=== PATIENT | male | born 1940 | race Caucasian/White ===

== ENCOUNTER 2017-09-14 14:15 | Outpatient (RCR) | payer MEDICARE, OTHER, SELFPAY ==
[2017-08-27 00:31] VITALS: BP 124/60; BP 170/94
== END 2017-09-26 23:59 ==
LOC: CR 14:15
PROVIDERS: Family Provider Family Medicine; PCP Family Medicine; Visit Provider Internal Medicine Cardiovascular Disease
DX: I25.10 Atherosclerotic heart disease of native coronary artery without angina pectoris (principal); Z95.1 Presence of aortocoronary bypass graft
CPT/HCPCS: 93798

== ENCOUNTER → 2017-11-08 11:00 | Outpatient (CLI) | payer MEDICARE, OTHER, SELFPAY ==
--- NOTE | 2017-11-08 11:04 | RAD_ITS ---
STUDY: X-RAY CHEST REASON FOR EXAM: Male, 77 years old. COPD TECHNIQUE: PA and lateral views of the chest. COMPARISON: Previous study of 07/13/2017 FINDINGS: A stimulator device is seen overlying the lateral left thorax with lead overlying the mid thorax. An atrial appendage clip is seen. The lungs are clear and expanded. There is no demonstrated pleural abnormality. There is mild cardiac enlargement. Status post sternotomy changes are evident. Normal mediastinum and alon. Normal visualized pulmonary arteries. Normal visualized aortic arch and descending thoracic aorta. There is demineralization of the osseous structures. Normal visualized ribs, clavicles, and shoulders. There is no demonstrated abnormality of the visualized soft tissue structures of the upper abdomen. RAD/Chest PA and Lateral IMPRESSION: Mild cardiomegaly. Status post sternotomy. No acute cardiopulmonary disease process is seen. Electronically Signed: Hiram Randall MD at 23:58 EDT , Service support ,
== END ==
PROVIDERS: Family Provider Family Medicine; PCP Family Medicine; Visit Provider Internal Medicine Pulmonary Disease
DX: J44.9 Chronic obstructive pulmonary disease, unspecified (principal)
CPT/HCPCS: 71046

== ENCOUNTER → 2017-11-15 07:21 | Outpatient (CLI) | payer MEDICARE, OTHER, SELFPAY ==
[2017-11-15 08:33] LABS: Hematocrit 38.9 % (40-54); Hemoglobin 12.1 g/dl (13.0-16.5); Mean Corp Hgb Conc 31.1 g/gl (32-36); Mean Corpuscular Volume 96.3 fL (80-94); Mean Platelet Vol. 10.2 fl (6.2-12.0); Platelet Count 162 K/mm3 (150-450); RBC Distribution Width SD 52.8 fl (35.1-43.9); Red Blood Count 4.04 M/mm3 (4.6-6.2); White Blood Count 7.2 K/mm3 (4.4-11.0)
[2017-11-15 08:34] LABS: Scan Indicated on CBC? Y/N NO
[2017-11-15 09:13] LABS: Anion Gap 7 (5-15); BUN 29 mg/dL (7-18); BUN/Creat Ratio 14.6 RATIO (10-20); Calcium,Total 9.1 mg/dL (8.5-10.1); Chloride 103 mmol/L (98-107); Creatinine, Serum 1.99 mg/dL (0.70-1.30); EST Glomerular Filtration Rate 35 mL/min (>60); Est Glom Filt Rate - Afr Amer 42 mL/min (>60); Free T3 2.1 pg/mL (2.18-3.98); Glucose 274 mg/dL (74-106); Potassium 4.3 mmol/L (3.5-5.1); Sodium Level 141 mmol/L (136-145); T4 Free Direct 1.28 ng/dL (0.76-1.46); Thyroid Stim Hormone (TSH) 6.41 uIU/mL (0.358-3.74)
[2017-11-15 09:50] LABS: BNP,B-Type NATRIURETIC PEPTIDE 93.2 pg/mL (0-100)
== END ==
PROVIDERS: Family Provider Family Medicine; PCP Family Medicine; Visit Provider Physician Assistant Medical
DX: E03.9 Hypothyroidism, unspecified (principal); I25.10 Atherosclerotic heart disease of native coronary artery without angina pectoris; I48.91 Unspecified atrial fibrillation; Z95.1 Presence of aortocoronary bypass graft; E87.6 Hypokalemia
CPT/HCPCS: 36415; 80048; 83880; 84439; 84443; 84481; 85027

== ENCOUNTER → 2017-12-21 10:03 | Outpatient (CLI) | payer MEDICARE, OTHER, SELFPAY ==
[2017-12-21 12:51] LABS: Absolute Lymphocyte Count 0.97 X10^3/ul (0.83-4.51); Absolute Neutrophil Count 4.7 X10^3/uL (2.0-7.7); Basophil# 0.02 X10^3/uL; Basophil% 0.3 % (0-1); Eosinophil# 0.12 X10^3/uL; Eosinophils% 1.9 % (0-5); Hematocrit 36.1 % (40-54); Hemoglobin 11.6 g/dl (13.0-16.5); Lymphocyte # 0.97 X10^3/ul (4.0); Mean Corp Hgb Conc 32.1 g/gl (32-36); Mean Corpuscular Hgb 31.5 pg (27.0-32.0); Mean Corpuscular Volume 98.1 fL (80-94); Mean Platelet Vol. 10.2 fl (6.2-12.0); Monocyte# 0.65 X10^3/uL; Monocyte% 10.1 % (0-10); Neutrophil # 4.68 X10^3/uL (2.7-7.7); Neutrophil % 72.4 % (47-70); Platelet Count 163 K/mm3 (150-450); RBC Distribution Width CV 14.5 % (11.6-14.6); RBC Distribution Width SD 49.7 fl (35.1-43.9); Red Blood Count 3.68 M/mm3 (4.6-6.2); White Blood Count 6.5 K/mm3 (4.4-11.0)
[2017-12-21 12:58] LABS: POSITIVE COUNT NO; POSITIVE DIFFERENTIAL NO; POSITIVE MORPHOLOGY NO
== END ==
PROVIDERS: Family Provider Family Medicine; PCP Family Medicine; Visit Provider Family Medicine
DX: T14.8XXA Other injury of unspecified body region, initial encounter (principal)
CPT/HCPCS: 36415; 85025

== ENCOUNTER → 2018-01-15 08:41 | Outpatient (CLI) | payer MEDICARE, OTHER, SELFPAY ==
[2018-01-15 10:13] LABS: ALB/GLOB Ratio 1.1 RATIO (0.9-2.4); AST(SGOT) 66 U/L (15-37); Alanine Aminotransfer ALT/SGPT 110 U/L (16-61); Albumin, Serum 3.5 g/dL (3.2-5.0); Alkaline Phosphatase 80 U/L (45-117); Anion Gap 8 (5-15); BUN 28 mg/dL (7-18); BUN/Creat Ratio 15.7 RATIO (10-20); Calcium,Total 8.9 mg/dL (8.5-10.1); Chloride 106 mmol/L (98-107); Cholesterol 168 mg/dL (200); Creatinine, Serum 1.78 mg/dL (0.70-1.30); EST Glomerular Filtration Rate 39 mL/min (>60); Est Glom Filt Rate - Afr Amer 48 mL/min (>60); Globulin 3.3 g/dL (2.2-4.2); Glucose 82 mg/dL (74-106); High Density Lipoprotein 75 mg/dL; Protein, Total 6.8 g/dL (6.4-8.2); Sodium Level 145 mmol/L (136-145); T4 Free Direct 1.33 ng/dL (0.76-1.46); Thyroid Stim Hormone (TSH) 3.18 uIU/mL (0.358-3.74); Triglycerides 63 mg/dL; Very Low Density Lipoprotein 13 mg/dL (5-40)
[2018-01-15 11:15] LABS: Hemoglobin A1c 7.1 % (4.2-6.3)
[2018-01-16 10:49] LABS: Vitamin D,25 Hydroxy 44.1 ng/mL (29.95-100.01)
== END ==
PROVIDERS: Family Provider Family Medicine; PCP Family Medicine; Visit Provider Internal Medicine Endocrinology, Diabetes & Metabolism
DX: E55.9 Vitamin D deficiency, unspecified (principal); E03.9 Hypothyroidism, unspecified; E11.65 Type 2 diabetes mellitus with hyperglycemia
CPT/HCPCS: 36415; 80053; 80061; 82306; 83036; 84439; 84443

== ENCOUNTER 2018-01-21 06:36 | Emergency (ER) | payer MEDICARE, OTHER, SELFPAY ==
[2018-01-21 06:37] VITALS: BP 133/72; PULSE 64; RESP 18; TEMP 37.1; O2SAT 98; BMI 29.9
--- NOTE | 2018-01-21 06:46 | RAD_ITS ---
STUDY: X-RAY - RIGHT KNEE REASON FOR EXAM: Male, 77 years old. Knee pain TECHNIQUE: 4 view(s) of the knee. COMPARISON: None. FINDINGS: Meniscal calcifications bilaterally. There may be partial extrusion of the meniscus medial compartment. Mild joint space narrowing medial compartment. Minimal marginal osteophytic lipping. Lateral compartment mild marginal osteophytic lipping. Patellofemoral compartment minimal marginal osteophytic lipping. No apparent suprapatellar knee joint effusion. Osseous structures intact, mildly osteopenic. Periarticular soft tissues unremarkable. RAD/Knee 4 or More Views IMPRESSION: Mild DJD medial, lateral and patellofemoral compartments. No effusion. No fracture. Meniscal calcifications may reflect the presence of CPPD/pseudogout. Electronically Signed: Gómez Pederson, at 7:14 EDT Tel , Service support ,
--- NOTE | 2018-01-21 07:18 | ED.VISSUMM ---
- ER Visit Summary Date of Service: 01/21/18 Chief Complaint: Right knee pain History of Present Illness: The patient is a 77 M who presents for 1-1/2 weeks of worsening right knee pain. Patient has no history of trauma. Patient states he has been having pain, worse with ambulation. Mainly noted on the lateral knee. He had been on Eliquis until 1 week ago when his doctor took him off of it because of mild elevation of transaminases. Patient is not supposed to be restarted until January 28. He has no history of blood clots. No shortness of breath, fever, chest pain or other complaints other than the knee pain. He was going to follow-up with his orthopedic doctor tomorrow, but was unable to bear weight this morning upon awakening. He is able to ambulate using a cane. Patient tried wearing a commercial brace. Has not taken any pain medicine. Physical Examination: Vital signs: afebrile, hemodynamically stable, no hypoxia on room air General: well nourished, well developed, in no distress Skin: warm, dry, no rash, no pallor Cardiovascular: regular rate and rhythm without murmurs, no peripheral edema, 2+ pulses all distal extremities Respiratory: No increased work of breathing, lungs are clear to auscultation bilaterally, no rales, rhonchi or wheezing MSK: Moves all extremities, finger amputations bilateral hands, left distal upper extremity in a brace; right knee shows no deformities or swelling. Mild tenderness to palpation along the lateral and medial joint lines. No deformities or crepitus. No posterior fullness or tenderness. No varus or valgus laxity. Negative anterior and posterior drawer sign. Symmetric appearance compared to left knee. Skin markings from pressure of knee brace seams. Neuro: Awake and alert, oriented ?4. sensation and motor function intact and symmetric Test Results: Abnormal Lab Results 01/21/18 07:40 Sodium 141 Potassium 4.1 Chloride 106 Carbon Dioxide 28.0 Anion Gap 7 BUN 29 H Creatinine 1.79 H Estim Creat Clear Calc 36.73 Est GFR (MDRD) Af Amer 47 L Est GFR (MDRD) Non-Af 39 L BUN/Creatinine Ratio 16.2 Glucose 149 H Calcium 8.9 Total Bilirubin 0.40 AST 45 H ALT 88 H Alkaline Phosphatase 78 Total Protein 6.3 L Albumin 3.4 Globulin 2.9 Albumin/Globulin Ratio 1.2 Clinical Impression(s) from Imaging Studies Knee X-Ray 01/21/18 06:46 IMPRESSION: Mild DJD medial, lateral and patellofemoral compartments. No effusion. No fracture. Meniscal calcifications may reflect the presence of CPPD/pseudogout. Electronically Signed: Gómez Pederson, at 7:14 EDT Tel , Service support , Emergency Department Course and Treatment: Patient's knee exam is nonspecific, and he has no calf swelling or tenderness. Concern for a DVT is low, however patient has been abruptly off of his Eliquis for 1 week now, and and patient are very concerned for blood clot. Given Tylenol for pain. X-ray of the knee showed findings consistent with possible pseudogout. No fractures or effusions noted. Given that patient is off of his blood thinner and the family is concerned for DVT, ultrasound was performed. Negative for DVT. Patient will follow up with his orthopedic doctor tomorrow as prior planned. Labs performed showing very mild transaminitis and chronic renal insufficiency. He was discussed with cardiology regarding the discontinuation of patient's Eliquis by the [facility], and Dr. Mota could not make a judgment on this medication discontinuation without knowing the reasons for at the [facility] did. I agree with this, and patient was advised to contact his primary care doctor at the [facility] as soon as possible in the morning to discuss further with him being off of his medication. No further blood thinners were started given that we do not have a clear picture of why he was taken off his Eliquis. Return if any further concerns and will continue to use rest, ice, elevation in the knee brace for comfort. He will use his cane for ambulation until he can follow-up with orthopedics tomorrow. Treatment Plan: [] Disposition: [] Impression: Left knee pain This note was generated with [id number] dictation software. It may contain incorrect words, spelling, and punctuation that were not noted in review of the chart prior to signing ED Disposition - Plan for ED Patient: Disposition: Home or Assisted Living Chief Complaint: Lower Extremity Injury Instructions: ED Knee Pain [facility] Referrals: Corin Hernandez MD [Primary Care Provider] - Additional Instructions: Please follow-up with your orthopedic doctor tomorrow. Your ultrasound showed no blood clot in your right leg. Please call your doctor that took you off of your Eliquis first thing tomorrow to discuss whether they can talk to your planer offbearer about the medication or an alternative anticoagulant. Follow-up as soon as possible for further discussion of your need for a blood thinner. If you have any worsening of your condition or any new concerning symptoms, please return immediately to the emergency department for another evaluation.
--- NOTE | 2018-01-21 07:23 | ED.DCSUM_ITS ---
- ER Visit Summary Date of Service: 01/21/18 Chief Complaint: Right knee pain History of Present Illness: The patient is a 77 M who presents for 1-1/2 weeks of worsening right knee pain. Patient has no history of trauma. Patient states he has been having pain, worse with ambulation. Mainly noted on the lateral knee. He had been on Eliquis until 1 week ago when his doctor took him off of it because of mild elevation of transaminases. Patient is not supposed to be restarted until January 28. He has no history of blood clots. No shortness of breath, fever, chest pain or other complaints other than the knee pain. He was going to follow-up with his orthopedic doctor tomorrow, but was unable to bear weight this morning upon awakening. He is able to ambulate using a cane. Patient tried wearing a commercial brace. Has not taken any pain medicine. Physical Examination: Vital signs: afebrile, hemodynamically stable, no hypoxia on room air General: well nourished, well developed, in no distress Skin: warm, dry, no rash, no pallor Cardiovascular: regular rate and rhythm without murmurs, no peripheral edema, 2 + pulses all distal extremities Respiratory: No increased work of breathing, lungs are clear to auscultation bilaterally, no rales, rhonchi or wheezing MSK: Moves all extremities, finger amputations bilateral hands, left distal upper extremity in a brace; right knee shows no deformities or swelling. Mild tenderness to palpation along the lateral and medial joint lines. No deformities or crepitus. No posterior fullness or tenderness. No varus or valgus laxity. Negative anterior and posterior drawer sign. Symmetric appearance compared to left knee. Skin markings from pressure of knee brace seams. Neuro: Awake and alert, oriented ?4. sensation and motor function intact and symmetric Test Results: Abnormal Lab Results 01/21/18 07:40 Sodium 141 Potassium 4.1 Chloride 106 Carbon Dioxide 28.0 Anion Gap 7 BUN 29 H Creatinine 1.79 H Estim Creat Clear Calc 36.73 Est GFR (MDRD) Af Amer 47 L Est GFR (MDRD) Non-Af 39 L BUN/Creatinine Ratio 16.2 Glucose 149 H Calcium 8.9 Total Bilirubin 0.40 AST 45 H ALT 88 H Alkaline Phosphatase 78 Total Protein 6.3 L Albumin 3.4 Globulin 2.9 Albumin/Globulin Ratio 1.2 Clinical Impression(s) from Imaging Studies Knee X-Ray 01/21/18 06:46 IMPRESSION: Mild DJD medial, lateral and patellofemoral compartments. No effusion. No fracture. Meniscal calcifications may reflect the presence of CPPD/pseudogout. Electronically Signed: Gómez Pederson, at 7:14 EDT Tel , Service support , Emergency Department Course and Treatment: Patient's knee exam is nonspecific, and he has no calf swelling or tenderness. Concern for a DVT is low, however patient has been abruptly off of his Eliquis for 1 week now, and and patient are very concerned for blood clot. Given Tylenol for pain. X-ray of the knee showed findings consistent with possible pseudogout. No fractures or effusions noted. Given that patient is off of his blood thinner and the family is concerned for DVT, ultrasound was performed. Negative for DVT. Patient will follow up with his orthopedic doctor tomorrow as prior planned. Labs performed showing very mild transaminitis and chronic renal insufficiency. He was discussed with cardiology regarding the discontinuation of patient's Eliquis by the [facility], and Dr. Mota could not make a judgment on this medication discontinuation without knowing the reasons for at the [facility] did. I agree with this, and patient was advised to contact his primary care doctor at the [facility] as soon as possible in the morning to discuss further with him being off of his medication. No further blood thinners were started given that we do not have a clear picture of why he was taken off his Eliquis. Return if any further concerns and will continue to use rest, ice, elevation in the knee brace for comfort. He will use his cane for ambulation until he can follow-up with orthopedics tomorrow. Treatment Plan: [] Disposition: [] Impression: Left knee pain This note was generated with [employer] dictation software. It may contain incorrect words, spelling, and punctuation that were not noted in review of the chart prior to signing ED Disposition - Plan for ED Patient: Disposition: Home or Assisted Living Chief Complaint: Lower Extremity Injury Instructions: ED Knee Pain [facility] Referrals: Corin Hernandez MD [Primary Care Provider] - Additional Instructions: Please follow-up with your orthopedic doctor tomorrow. Your ultrasound showed no blood clot in your right leg. Please call your doctor that took you off of your Eliquis first thing tomorrow to discuss whether they can talk to your warehouse driver about the medication or an alternative anticoagulant. Follow-up as soon as possible for further discussion of your need for a blood thinner. If you have any worsening of your condition or any new concerning symptoms, please return immediately to the emergency department for another evaluation.
[2018-01-21 08:08] LABS: ALB/GLOB Ratio 1.2 RATIO (0.9-2.4); AST(SGOT) 45 U/L (15-37); Alanine Aminotransfer ALT/SGPT 88 U/L (16-61); Albumin, Serum 3.4 g/dL (3.2-5.0); Alkaline Phosphatase 78 U/L (45-117); Anion Gap 7 (5-15); BUN 29 mg/dL (7-18); BUN/Creat Ratio 16.2 RATIO (10-20); Calcium,Total 8.9 mg/dL (8.5-10.1); Chloride 106 mmol/L (98-107); Creatinine, Serum 1.79 mg/dL (0.70-1.30); EST Glomerular Filtration Rate 39 mL/min (>60); Est Glom Filt Rate - Afr Amer 47 mL/min (>60); Estimated Creatinine Clearance 36.73 ml/min; Globulin 2.9 g/dL (2.2-4.2); Glucose 149 mg/dL (74-106); Potassium 4.1 mmol/L (3.5-5.1); Protein, Total 6.3 g/dL (6.4-8.2); Sodium Level 141 mmol/L (136-145)
[2018-01-21] MEDS: Acetaminophen 500 MG Tablet 1000 MG PO (08:16)
--- NOTE | 2018-01-21 08:19 | VDLE_ITS ---
Reason For Study: LEG PAIN RIGHT GSV is normal. CFV is compressible, spontaneous, phasic, competent and demonstrates normal augmentation. FV is compressible, spontaneous, phasic, competent and demonstrates normal augmentation. POP V is compressible, spontaneous, phasic, competent and demonstrates normal augmentation. T/P Trunk is compressible. PTV is compressible. RT PerV is compressible. Procedure Exam performed portable in ED. A preliminary report was called and/or faxed to Dr. Hernandez. Interpretation Summary Deep veins of the right lower extremity are patent and compressible segmentally. There is no evidence of right lower extremity deep vein thrombosis. Valvular competence appears intact within the proximal deep venous system on the right . The right greater saphenous vein appears patent and compressible segmentally. Ordering Physician: Mariama Hernandez Referring Physician: Shu Gotti Performed By: Rachel Cinseros RVT
--- NOTE | 2018-01-21 09:22 | NURSING ---
VASCULAR LAB IN ROOM
--- NOTE | 2018-01-21 09:39 | NURSING ---
DR LADD PAGED
--- NOTE | 2018-01-21 11:34 | ED.DEP ---
ED Disposition - Plan for ED Patient: Disposition: Home or Assisted Living Chief Complaint: Lower Extremity Injury Instructions: ED Knee Pain [facility] Referrals: Corin Hernandez MD [Primary Care Provider] - Additional Instructions: Please follow-up with your orthopedic doctor tomorrow. Your ultrasound showed no blood clot in your right leg. Please call your doctor that took you off of your Eliquis first thing tomorrow to discuss whether they can talk to your water resource specialist about the medication or an alternative anticoagulant. Follow-up as soon as possible for further discussion of your need for a blood thinner. If you have any worsening of your condition or any new concerning symptoms, please return immediately to the emergency department for another evaluation.
--- NOTE | 2018-01-21 11:37 | DCINST.ED_ITS ---
ED Disposition - Plan for ED Patient: Disposition: Home or Assisted Living Chief Complaint: Lower Extremity Injury Instructions: ED Knee Pain [facility] Referrals: Corin Hernandez MD [Primary Care Provider] - Additional Instructions: Please follow-up with your orthopedic doctor tomorrow. Your ultrasound showed no blood clot in your right leg. Please call your doctor that took you off of your Eliquis first thing tomorrow to discuss whether they can talk to your special education kindergarten teacher about the medication or an alternative anticoagulant. Follow-up as soon as possible for further discussion of your need for a blood thinner. If you have any worsening of your condition or any new concerning symptoms, please return immediately to the emergency department for another evaluation.
[2018-01-21 11:43] VITALS: BP 134/77; PULSE 73; RESP 16; O2SAT 98
== END 2018-01-21 11:44 | disposition home or self-care (01) ==
PROVIDERS: Emergency Provider Emergency Medicine; Family Provider Family Medicine; PCP Family Medicine
DX: M25.561 Pain in right knee (principal); M79.604 Pain in right leg; I48.91 Unspecified atrial fibrillation; Z86.74 Personal history of sudden cardiac arrest; Z79.02 Long term (current) use of antithrombotics/antiplatelets; Z79.4 Long term (current) use of insulin; Z79.899 Other long term (current) drug therapy
CPT/HCPCS: 73564; 80053; 93971; 99283

== ENCOUNTER → 2018-01-25 09:44 | Outpatient (CLI) | payer MEDICARE, OTHER, SELFPAY ==
[2018-01-25 09:56] LABS: Pathologist Comment May follow
[2018-01-25 11:14] LABS: Synovial Fld Mononuclear WBC % 63.9 %; Synovial Fld Polynuclear WBC # 0.109 10^3/ul; Synovial Fld Polynuclear WBC % 36.1 %
[2018-01-25 13:01] LABS: RBC /Synovial Fluid 678 /mm3 (0)
[2018-01-25 13:02] LABS: AUTO B FLUID DILUENT BKGD CT WBC <0.1 RBC <0.01 (W<.1,R<.01)
[2018-01-25 13:03] LABS: Appearance /Synovial Fluid Sl Cl (CLEAR); Color / Synovial Fluid Yellow (Pale Yellow); Lymph 6 %; Monocyte /Synovial Fluid 28 %; Neutrophil 54 % (0-25); Other Cell /Synovial Fluid 12 %; Source / Synovial Fluid R KNEE; Source- Body Fluid SYNOVIAL; Viscosity / Synovial Fluid Mod. Viscous (HIGH)
[2018-01-25 13:04] LABS: Body Fluid QC Type(s) BF2Q; Synovial Fld Mononuclear WBC # 0.193 10^3/ul
[2018-02-06 10:31] LABS: Pathologist Review Reviewed
== END ==
PROVIDERS: Family Provider Family Medicine; PCP Family Medicine; Visit Provider Specialist
DX: M10.061 Idiopathic gout, right knee (principal)
CPT/HCPCS: 87070; 87075; 87205; 89050; 89051; 89060

== ENCOUNTER → 2018-02-19 12:27 | Outpatient (CLI) | payer MEDICARE, OTHER, SELFPAY | PROVIDERS: Family Provider Family Medicine; PCP Family Medicine; Visit Provider Internal Medicine Cardiovascular Disease | DX: R42 Dizziness and giddiness (principal); Z95.810 Presence of automatic (implantable) cardiac defibrillator | CPT/HCPCS: 93225; 93226 ==

== ENCOUNTER → 2018-03-01 06:27 | Outpatient (CLI) | payer MEDICARE, OTHER, SELFPAY ==
--- NOTE | 2018-03-01 11:22 | STRESSREP ---
Stress Test Report Pharmacologic myocardial perfusion stress test. 77-year-old man with a history of coronary artery disease. Medications losartan atorvastatin insulin NovoLog Coreg. Stress protocol: Resting EKG demonstrates normal sinus rhythm with rate of 64 bpm left bundle branch block is noted resting blood pressure is 120/80 mmHg. 0.4 mg of regadenoson was infused per usual protocol followed by rapid intravenous saline flush injection continuous EKG monitoring was performed. Patient maintained sinus rhythm throughout the recording. The maximum heart rate attained was 80 bpm which was 56% maximum predicted heart rate. The resting blood pressure is 120/80 mmHg with a maximum blood pressure 136/72 mmHg. Myocardial perfusion protocol. 11.9 mCi of technetium 99m sestamibi was injected at rest. 0.4 mg of regadenoson was infused per usual protocol. At peak infusion 34.4 mCi of technetium 99m sestamibi was injected stress images were obtained stress and rest images were reconstructed and compared in the short axis vertical long and horizontal long axis. Gated images were also obtained. Perfusion SPECT analysis: Review of the stress images demonstrate normal uptake of tracer noted in all areas of the myocardium. The resting images similarly demonstrate normal uptake of tracer noted in all areas of myocardium. No areas of reversibility are noted suggest ischemia and no previous infarct is noted. Gated SPECT analysis: The gated ejection fraction is 59%. Conclusion: Normal pharmacologic myocardial perfusion stress test. Preserved ejection fraction.
== END ==
PROVIDERS: Family Provider Family Medicine; PCP Family Medicine; Visit Provider Internal Medicine Cardiovascular Disease
DX: I25.10 Atherosclerotic heart disease of native coronary artery without angina pectoris (principal); Z95.810 Presence of automatic (implantable) cardiac defibrillator
CPT/HCPCS: 78452; 93017; A9500; A4216; J2785

== ENCOUNTER 2018-04-04 22:26 | Emergency (ER) | payer MEDICARE, OTHER, SELFPAY ==
[2018-04-04 22:27] VITALS: BP 113/76; PULSE 66; RESP 18; TEMP 36.6; O2SAT 98; BMI 28.3
--- NOTE | 2018-04-04 23:24 | RAD_ITS ---
STUDY: X-RAY - RIGHT FOOT CLINICAL: Male, 77 years old. History of fall and laceration. TECHNIQUE: 3 view(s) of the foot. COMPARISON: None. FINDINGS: Normal talus, calcaneus, and tarsal bones. Normal visualized subtalar, talonavicular, calcaneocuboid, tarsal and tarsometatarsal articulations. Normal metatarsi. There is degenerative arthrosis of the metatarsophalangeal joint of the hallux . Normal tibial and fibular sesamoid bones. Normal interphalangeal joint of the great toe. Normal phalanges of the great toe. Normal second through fifth metatarsophalangeal joints. Normal interphalangeal joints and phalanges of the lesser toes. The soft tissue structures are unremarkable. 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 No demonstrated acute osseous injury. Electronically Signed: Louie Hogue MD at 23:45 EDT Tel , Service support ,
--- NOTE | 2018-04-04 23:30 | RAD_ITS ---
STUDY: X-RAY - LEFT FOOT CLINICAL: Male, 77 years old. Left foot laceration after fall TECHNIQUE: 3 view(s) of the foot. COMPARISON: None. FINDINGS: There is a transverse nondisplaced fracture through the proximal fifth phalanx without adjacent soft tissue swelling. Normal talus, calcaneus, and tarsal bones. Normal visualized subtalar, talonavicular, calcaneocuboid, tarsal and tarsometatarsal articulations. Normal metatarsi. There is minimal degenerative arthrosis of the metatarsophalangeal joint of the hallux . Normal tibial and fibular sesamoid bones. Normal interphalangeal joint of the great toe. Normal phalanges of the great toe. Normal second through fifth metatarsophalangeal joints. Mild narrowing of the interphalangeal joints and otherwise normal phalanges of the lesser toes. The soft tissue structures are unremarkable. RAD/Foot min 3 Views IMPRESSION: Nondisplaced transverse fracture proximal fifth phalanx without adjacent soft tissue swelling. Fracture age is likely acute to subacute. There is no callus formation. Mild degenerative changes. There is no radiopaque foreign body. Electronically Signed: Tiffani Randolph MD at 23:49 EDT , Service support ,
[2018-04-05] MEDS: Diphth,Pertuss(Acell),Tet Vac 0.5 ML Vial IM (00:14)
--- NOTE | 2018-04-05 00:14 | ED.DCSUM_ITS ---
- ER Visit Summary Date of Service: 04/05/18 Chief Complaint: Left foot laceration History of Present Illness: The patient is a 77 M presenting with left foot injury. Patient states he was working on a shower. As he stepped out of the shower he slipped and fell. He cut the bottom of his left foot. He has pain to both feet. He denies hitting his head or losing consciousness. Last tetanus is unknown. No other injuries. Physical Examination: Vitals are stable. Patient is afebrile. Alert no acute distress. HEENT exam is unremarkable. Neck is nontender Lungs are clear and equal bilaterally. Heart is regular rate and rhythm. Extremities right second toe tenderness with mild abrasion. Left fifth toe tenderness, 1.5cm laceration to the plantar aspect of the proximal left fifth toe. 1 cm laceration to plantar aspect of left fourth toe Skin is warm and dry. No focal neurologic deficit. Remainder of exam is unremarkable. Emergency Department Course and Treatment: X-ray of the left foot shows nondisplaced transverse fracture proximal fifth phalanx without adjacent soft tissue swelling. Fracture age is likely acute to subacute. X-ray of the right foot shows no fracture. He was given tetanus IM and Keflex. Wound was copiously irrigated. Anesthetized with lidocaine. 5, 5-0 simple sutures were placed in the laceration of the fifth toe. 1, 5-0 simple suture was placed in the fourth toe laceration. Patient tolerated this well. He is given a prescription for Keflex. Advised to follow-up with his primary care physician or animal nutrition consultant. Advised return to ED for worsening complaints. Disposition: Discharge home Impression: Left fifth toe fracture, laceration left fourth and fifth toe, laceration repair This note was generated with [employer] dictation software. It may contain incorrect words, spelling, and punctuation that were not noted in review of the chart prior to signing ED Disposition - Plan for ED Patient: Chief Complaint: Laceration Referrals: Corin Hernandez MD [Primary Care Provider] -
[2018-04-05] MEDS: Cephalexin 250 MG Capsule 500 MG PO (01:28)
[2018-04-05 01:32] VITALS: BP 170/78; PULSE 63; RESP 16
--- NOTE | 2018-04-05 01:38 | ED.DEP ---
ED Disposition - Plan for ED Patient: Chief Complaint: Laceration Instructions: ED Laceration Foot Prescriptions: Cephalexin [Keflex] 500 mg PO Q6 #40 capsule Referrals: Corin Hernandez MD [Primary Care Provider] - Nick Harding DPM [STAFF PHYSICIAN] -
== END 2018-04-05 01:50 | disposition home or self-care (01) ==
LOC: ED 23:31
PROVIDERS: Emergency Provider Emergency Medicine; Family Provider Family Medicine; PCP Family Medicine
DX: S91.312A Laceration without foreign body, left foot, initial encounter (principal); S92.912A Unspecified fracture of left toe(s), initial encounter for closed fracture; W18.2XXA Fall in (into) shower or empty bathtub, initial encounter; Y93.89 Activity, other specified; Y92.9 Unspecified place or not applicable; Y99.9 Unspecified external cause status; Z23 Encounter for immunization
CPT/HCPCS: 12001; 73630; 90715; 99284

== ENCOUNTER → 2018-04-24 08:48 | Outpatient (CLI) | payer MEDICARE, OTHER, SELFPAY ==
[2018-04-24 09:51] LABS: Hemoglobin A1c 6.4 % (4.2-6.3)
[2018-04-24 09:54] LABS: AST(SGOT) 21 U/L (15-37); Alanine Aminotransfer ALT/SGPT 30 U/L (16-61); Albumin, Serum 3.4 g/dL (3.2-5.0); Alkaline Phosphatase 71 U/L (45-117); Anion Gap 8 (5-15); BUN 23 mg/dL (7-18); BUN/Creat Ratio 14.1 RATIO (10-20); Calcium,Total 8.7 mg/dL (8.5-10.1); Chloride 107 mmol/L (98-107); Cholesterol 112 mg/dL (200); Creatinine, Serum 1.63 mg/dL (0.70-1.30); EST Glomerular Filtration Rate 44 mL/min (>60); Est Glom Filt Rate - Afr Amer 53 mL/min (>60); Globulin 3.3 g/dL (2.2-4.2); Glucose 154 mg/dL (74-106); High Density Lipoprotein 76 mg/dL; Potassium 4.1 mmol/L (3.5-5.1); Protein, Total 6.7 g/dL (6.4-8.2); Sodium Level 145 mmol/L (136-145); Thyroid Stim Hormone (TSH) 1.16 uIU/mL (0.358-3.74); Triglycerides 83 mg/dL; Very Low Density Lipoprotein 17 mg/dL (5-40)
== END ==
PROVIDERS: Family Provider Family Medicine; PCP Family Medicine; Visit Provider Internal Medicine Endocrinology, Diabetes & Metabolism
DX: E11.65 Type 2 diabetes mellitus with hyperglycemia (principal)
CPT/HCPCS: 36415; 80053; 80061; 83036; 84443

== ENCOUNTER → 2018-05-13 09:26 | Outpatient (CLI) | payer MEDICARE, OTHER, SELFPAY ==
[2018-05-13 10:32] LABS: ALB/GLOB Ratio 1.1 RATIO (0.9-2.4); AST(SGOT) 17 U/L (15-37); Alanine Aminotransfer ALT/SGPT 25 U/L (16-61); Albumin, Serum 3.5 g/dL (3.2-5.0); Alkaline Phosphatase 62 U/L (45-117); Anion Gap 6 (5-15); BUN 28 mg/dL (7-18); Calcium,Total 8.5 mg/dL (8.5-10.1); Chloride 106 mmol/L (98-107); Creatinine, Serum 1.75 mg/dL (0.70-1.30); EST Glomerular Filtration Rate 40 mL/min (>60); Est Glom Filt Rate - Afr Amer 49 mL/min (>60); Globulin 3.1 g/dL (2.2-4.2); Glucose 226 mg/dL (74-106); Potassium 4.2 mmol/L (3.5-5.1); Protein, Total 6.6 g/dL (6.4-8.2); Sodium Level 142 mmol/L (136-145)
== END ==
PROVIDERS: Family Provider Family Medicine; PCP Family Medicine; Visit Provider Physician Assistant Medical
DX: I25.10 Atherosclerotic heart disease of native coronary artery without angina pectoris (principal); I48.91 Unspecified atrial fibrillation; I10 Essential (primary) hypertension; R51 Headache; Z95.1 Presence of aortocoronary bypass graft
CPT/HCPCS: 36415; 80053

== ENCOUNTER → 2018-05-13 14:54 | Outpatient (CLI) | payer MEDICARE, OTHER, SELFPAY ==
--- NOTE | 2018-05-13 14:56 | CT_ITS ---
STUDY: CT BRAIN WITHOUT CONTRAST REASON FOR EXAM: Male, 77 years old. Frequent headaches. On blood thinners. RADIATION DOSAGE (If Supplied By Facility): CTDIvol = ( 44.99 ) mGy, DLP = ( 880.47 ) mGycm TECHNIQUE: Transaxial CT imaging of the brain was performed without administration of intravenous contrast material. Individualized dose optimization techniques were used for this CT. COMPARISON: Comparison is made with prior examination dated July 12, 2017. FINDINGS: Normal soft tissue structures. Normal calvarium. There is asymmetry of the ventricles consistent with an anatomic variant. Normal white matter tracts of the cerebral hemispheres. 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 Normal brainstem. Normal cerebellum. There is no intracranial hemorrhage. There are no findings of an acute ischemic infarction. Normal visualized paranasal sinuses. CT/Brain/Head without Contrast IMPRESSION: Chronic involutional changes of the brain. 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 Electronically Signed: Angelito Hylton MD at 15:32 EDT Tel [phone], Service support ,
== END ==
PROVIDERS: Family Provider Family Medicine; PCP Family Medicine; Visit Provider Physician Assistant Medical
DX: S09.90XA Unspecified injury of head, initial encounter (principal)
CPT/HCPCS: 36415; 70450; 80053

== ENCOUNTER → 2018-05-15 16:09 | Outpatient (CLI) | payer MEDICARE, OTHER, SELFPAY ==
[2018-05-15 17:47] LABS: Acetaminophen (Tylenol) Level 16.7 ug/mL (10.0-30.0)
== END ==
PROVIDERS: Family Provider Family Medicine; PCP Family Medicine; Visit Provider Physician Assistant Medical
DX: T39.1X1A Poisoning by 4-Aminophenol derivatives, accidental (unintentional), initial encounter (principal)
CPT/HCPCS: 36415; 80329; G0480

== ENCOUNTER 2018-05-20 18:36 | Emergency (ER) | payer MEDICARE, OTHER, SELFPAY ==
[2018-05-20] VITALS (9 sets, daily range): BP systolic 185–215; BP diastolic 76–95; PULSE 67–75; RESP 12–20; TEMP 36.6; O2SAT 92–99; BMI 28.2
--- NOTE | 2018-05-20 19:39 | ED.VISSUMM ---
- ER Visit Summary Date of Service: 05/20/18 Chief Complaint: Headache History of Present Illness: The patient is a 77 M for the last 2 months. They are unsure of the headaches are caused by his blood pressure, headaches are increasing his blood pressure or if there is another cause. He had a CAT scan of his brain done approximately a week ago which showed no acute abnormality. He did have a fall about 2 months ago and a headache started but he did not lose consciousness. He denies any fever. He denies any sinus congestion. He has no history of temporal arteritis or trigeminal neuralgia. The headaches are intermittent. Nothing specifically seems to bring them on or make them worse. Physical Examination: Older male no acute distress. Vital signs stable he does have elevated blood pressure 190/85. Afebrile. HEENT exam pupils round reactive light. Extra motions are intact. There is no facial tenderness. No signs of tic [place]. Nor temporal arteritis. No facial droop. Normal speech. Neck nontender. No signs of facial or scalp trauma. Lungs clear to auscultation. Heart regular rhythm no murmur. Abdomen soft and nontender. He is moving all 4 extremities. The neurovascular intact. 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 Neurologically is awake and alert. Normal speech. No facial droop. NIH is 0. No focal motor deficits. Test Results: Sedimentation rate equals 5. Emergency Department Course and Treatment: Patient treated with IV Lopressor for his elevated blood pressure. Tylenol for his headache. Patient was also treated with IV morphine 4 mg x2. Along with Zofran. Headache is 70% better per the patient. Clinically looks well. He and his and his daughter and I had a long discussion. They are comfortable with him being discharged home. They will follow-up with a local neurologist. He will be given [place] for pain. Treatment Plan: [place] for pain. Follow-up with neurology. Disposition: Discharge Impression: Acute cephalgia uncertain etiology Acute on chronic hypertension This note was generated with [employer] dictation software. It may contain incorrect words, spelling, and punctuation that were not noted in review of the chart prior to signing ED Disposition - Plan for ED Patient: Chief Complaint: Headache Referrals: Corin Hernandez MD [Primary Care Provider] -
[2018-05-20] MEDS: Metoprolol Tartrate 5 MG/5 ML Vial IV ×3 (19:50→20:24)
[2018-05-20 20:33] LABS: Erythrocyte Sedimentation Rate 5 mm/hr (0-20)
--- NOTE | 2018-05-20 20:42 | ED.RN ---
DR. LINCOLN AWARE OF UNCHANGE IN BP AFTER 3 DOSES OF LOPRESSER. PT STATES HEADACHE REMAINS /, BUT COVERS MORE OF MY HEAD. PHYSICIAN AWARE.
[2018-05-20] MEDS: Ondansetron 4 MG/2 ML Vial IV (21:22)
[2018-05-20] MEDS: Morphine 4 MG/ML Syringe IV ×2 (21:22→22:12)
[2018-05-20 22:20] LABS: Bedside Glucose 105 mg/dL (70-110)
--- NOTE | 2018-05-20 22:53 | ED.RN ---
PT STATES I FEEL TERRIBLE, DR. LINCOLN AWARE.
--- NOTE | 2018-05-20 23:49 | DCINST.ED_ITS ---
ED Disposition - Plan for ED Patient: Disposition: Home or Assisted Living Chief Complaint: Headache Instructions: ED Cephalgia Unspecified Prescriptions: Hydrocodone/Acetaminophen [[place] 5-325 Tablet] 1 ea PO Q4H PRN PRN #20 tab PRN Reason: Pain Referrals: Trevin Greenwood MD [STAFF PHYSICIAN] - As soon as possible Additional Instructions: Call follow-up with a neurologist. [place] as needed for pain. Plenty of fluids, fiber and stool softener as needed to prevent constipation. We do not have a specific cause for your head pain. He will need further evaluation.
[2018-05-20] MEDS: HYDROcodone Bitartrate/Apap 5/325 Tablet PO (23:51)
--- NOTE | 2018-05-20 23:56 | ED.RN ---
IV DC'ED, CATHETER INTACT, SMALL GAUZE DRESSING PLACED. DISCHARGE INSTRUCTIONS GIVEN TO AND REVIEWED WITH PATIENT AND SPOUSE, BOTH DENY QUESTIONS OR CONCERNS AND VOICE UNDERSTANDING OF DISCHARGE INSTRUCTIONS. PT TO PRIVATE VEHICLE VIA WHEELCHAIR.
== END 2018-05-20 23:57 | disposition home or self-care (01) ==
PROVIDERS: Emergency Provider Emergency Medicine; Family Provider Family Medicine; PCP Family Medicine
DX: R51 Headache (principal); I10 Essential (primary) hypertension; G50.0 Trigeminal neuralgia; Z89.112 Acquired absence of left hand; E11.9 Type 2 diabetes mellitus without complications; J44.9 Chronic obstructive pulmonary disease, unspecified; I48.91 Unspecified atrial fibrillation; Z95.1 Presence of aortocoronary bypass graft
CPT/HCPCS: 82962; 85652; 96374; 96375; 96376; 99283; A4216; J2405

== ENCOUNTER → 2018-06-19 15:12 | Outpatient (CLI) | payer MEDICARE, OTHER, SELFPAY ==
--- NOTE | 2018-06-19 15:14 | CT_ITS ---
STUDY: CT CERVICAL SPINE WITHOUT CONTRAST REASON FOR EXAM: Male, 77 years old. Neck and bilateral shoulder pain RADIATION DOSAGE (If Supplied By Facility): CTDIvol = ( 33.22 ) mGy, DLP = ( 651.61 ) mGycm TECHNIQUE: High resolution transaxial imaging was performed without contrast material. Sagittal and coronal images were reconstructed. Individualized dose optimization techniques were used for this CT. COMPARISON: None FINDINGS: Normal craniovertebral junction. Normal anterior atlantoaxial articulation. Normal odontoid process. Normal cervical lordosis. There is diffuse endplate spondylosis from C3 through C7. C6 and C7 are block vertebrae with a rudimentary disc noted. C2-3: Normal endplates. Normal disc height and morphology. Normal central canal and intervertebral neuroforamina. C3-4: There is severe disc space narrowing with vacuum phenomenon. The facets are within normal limits. There is mild foraminal narrowing on the right. There is no central canal stenosis. C4-5: There is severe disc space narrowing. The facets are within normal limits. There is mild bilateral foraminal narrowing. There is no central canal stenosis. C5-6: There is severe disc space narrowing. There are mild degenerative facet changes bilaterally. There is moderately severe foraminal narrowing on the left. There is no central canal stenosis. C6-7: As mentioned above C6 and C7 are block vertebrae, with a rudimentary disc space noted. There is no central canal stenosis or foraminal narrowing. The facets are unremarkable. C7-T1: Normal endplates. Normal disc height and morphology. Normal central canal and intervertebral neuroforamina. Normal visualized soft tissue structures. CT/Spine Cervical without Contras IMPRESSION: Multilevel degenerative changes, as described above. Electronically Signed: Hiram Randall MD at 16:22 EDT , Service support ,
== END ==
PROVIDERS: Family Provider Family Medicine; PCP Family Medicine; Referring Provider Nurse Practitioner Acute Care; Visit Provider Nurse Practitioner Acute Care
DX: M54.2 Cervicalgia (principal); R20.0 Anesthesia of skin
CPT/HCPCS: 72125

== ENCOUNTER → 2018-08-06 12:37 | Outpatient (CLI) | payer MEDICARE, OTHER, SELFPAY ==
[2018-05-20 18:37] VITALS: BMI 28.2
[2018-08-06 15:54] LABS: Absolute Lymphocyte Count 0.98 X10^3/ul (0.83-4.51); Basophil# 0.02 X10^3/uL; Basophil% 0.3 % (0-1); Eosinophil# 0.15 X10^3/uL; Eosinophils% 2.6 % (0-5); Hematocrit 36.5 % (40-54); Hemoglobin 11.5 g/dl (13.0-16.5); Lymphocyte # 0.98 X10^3/ul (4.0); Lymphocyte % 16.8 % (19-41); Mean Corp Hgb Conc 31.5 g/gl (32-36); Mean Corpuscular Hgb 31.3 pg (27.0-32.0); Mean Corpuscular Volume 99.5 fL (80-94); Mean Platelet Vol. 10.3 fl (6.2-12.0); Monocyte# 0.63 X10^3/uL; Monocyte% 10.8 % (0-10); Neutrophil # 4.03 X10^3/uL (2.7-7.7); Neutrophil % 69.2 % (47-70); Platelet Count 171 K/mm3 (150-450); RBC Distribution Width CV 13.9 % (11.6-14.6); RBC Distribution Width SD 48.2 fl (35.1-43.9); Red Blood Count 3.67 M/mm3 (4.6-6.2); White Blood Count 5.8 K/mm3 (4.4-11.0)
[2018-08-06 16:06] LABS: POSITIVE COUNT NO; POSITIVE DIFFERENTIAL NO; POSITIVE MORPHOLOGY NO
[2018-08-06 16:11] LABS: ALB/GLOB Ratio 1.3 RATIO (0.9-2.4); AST(SGOT) 17 U/L (15-37); Alanine Aminotransfer ALT/SGPT 24 U/L (16-61); Albumin, Serum 3.4 g/dL (3.2-5.0); Alkaline Phosphatase 78 U/L (45-117); Anion Gap 10 (5-15); BUN 21 mg/dL (7-18); BUN/Creat Ratio 13.8 RATIO (10-20); Calcium,Total 8.4 mg/dL (8.5-10.1); Chloride 106 mmol/L (98-107); Creatinine, Serum 1.52 mg/dL (0.70-1.30); EST Glomerular Filtration Rate 47 mL/min (>60); Est Glom Filt Rate - Afr Amer 57 mL/min (>60); Globulin 2.7 g/dL (2.2-4.2); Glucose 210 mg/dL (74-106); Hemoglobin A1c 7.4 % (4.2-6.3); Potassium 4.5 mmol/L (3.5-5.1); Protein, Total 6.1 g/dL (6.4-8.2); Sodium Level 146 mmol/L (136-145); Thyroid Stim Hormone (TSH) 1.51 uIU/mL (0.358-3.74)
--- OUTSIDE RECORDS SUMMARY | 2018-09-22 15:12 | XMS RPT_ITS ---
:1940 Author Organization [place] Support Name Relationship Address Phone SHERRY MAYES Unavailable [address] + [address] [place] [address] R Unavailable Unavailable Unavailable ELIZABETH, DANA Unavailable [address] [facility] + [place] [address] BOGNER, SHERRY Unavailable [address] + [address] [place] [address] R Unavailable Unavailable Unavailable ELIZABETH, DANA Unavailable [address] [facility] + [place] [address] BOGNER, SHERRY Unavailable [address] + [address] [place] [address] R Unavailable Unavailable Unavailable ELIZABETH, DANA Unavailable [address] [facility] + [place] [address] BOGNER, SHERRY Unavailable [address] + [address] [place] [address] R Unavailable Unavailable Unavailable ELIZABETH, DANA Unavailable [address] [facility] + [place] [address] BOGNER, SHERRY Unavailable [address] + [address] [place] [address] R Unavailable Unavailable Unavailable ELIZABETH, DANA Unavailable [address] [facility] + [place] [address] BOGNER, SHERRY Unavailable [address] + [address] [place] [address] R Unavailable Unavailable Unavailable ELIZABETH, DANA Unavailable [address] [facility] + [place] [address] BOGNER, SHERRY Unavailable [address] + [address] [place] [address] R Unavailable Unavailable Unavailable DANA JOHNSON Unavailable [address] [facility] + [place] [address] BOGMAVERICK, SHERRY Unavailable [address] + [address] [place] [address] R Unavailable Unavailable Unavailable DANA JOHNSON Unavailable [address] [facility] + [place] [address] BOGNER, SHERRY Unavailable [address] + [address] [place] [address] RACHNA MAYES Unavailable [address] + [address] [place] [address] R Unavailable Unavailable Unavailable BOGNER, SHERRY Unavailable [address] + [address] [place] [address] RACHNA MAYES Unavailable [address] + [address] [place] [address] R Unavailable Unavailable Unavailable BOGNER, SHERRY Unavailable [address] + [address] [place] [address] RACHNA MAYES Unavailable [address] + [address] [place] [address] R Unavailable Unavailable Unavailable BOGNER, SHERRY Unavailable [address] + [address] [place] [address] RACHNA MAYES Unavailable [address] + [address] [place] [address] R Unavailable Unavailable Unavailable BOGNER, SHERRY Unavailable [address] + [address] [place] [address] RACHNA MAYES Unavailable [address] + [address] [place] [address] R Unavailable Unavailable Unavailable BOGNER, SHERRY Unavailable [address] + [address] [place] [address] RACHNA MAYES Unavailable [address] + [address] [place] [address] R Unavailable Unavailable Unavailable BOGNER, SHERRY Unavailable [address] + [address] [place] [address] RACHNA MAYES Unavailable [address] + [address] [place] [address] R Unavailable Unavailable Unavailable SUGEY, SHERRY Unavailable [address] + [address] [place] [address] RACHNA MAYES Unavailable [address] + [address] [place] [address] R Unavailable Unavailable Unavailable SERENANER, SHERRY Unavailable [address] + [address] [place] [address] RACHNA MAYES Unavailable [address] + [address] [place] [address] R Unavailable Unavailable Unavailable SUGEY, SHERRY Unavailable [address] + [address] [place] [address] RACHNA MAYES Unavailable [address] + [address] [place] [address] R Unavailable Unavailable Unavailable SUGEY, SHERRY Unavailable [address] + [address] [place] [address] RACHNA MAYES Unavailable [address] + [address] [place] [address] R Unavailable Unavailable Unavailable SUGEY, SHERRY Unavailable [address] [phone] [address] [place] [address] RACHNA MAYES Unavailable [address] [phone] [address] [place] [address] R Unavailable Unavailable Unavailable BOGNER, SHERRY Unavailable [address] [phone] [address] [place] [address] RACHNA MAYES Unavailable [address] [phone] [address] [place] [address] R Unavailable Unavailable Unavailable SERENANER, SHERRY Unavailable [address] [phone] [address] [place] [address] RACHNA MAYES Unavailable Unavailable + [place] [address] R Unavailable Unavailable Unavailable BOGNER, SHERRY Unavailable [address] [phone] [address] [place] [address] RACHNA MAYES Unavailable Unavailable + [place] [address] R Unavailable Unavailable Unavailable BOGNER, SHERRY Unavailable [address] [phone] [address] [place] [address] RACHNA MAYES Unavailable . + [place] [address] R Unavailable Unavailable Unavailable BOGNER, SHERRY Unavailable [address] [phone] [address] [place] [address] RACHNA MAYES Unavailable . + [place] [address] R Unavailable Unavailable Unavailable BOGNER, SHERRY Unavailable [address] [phone] [address] [place] [address] RACHNA MAYES Unavailable . + [place] [address] R Unavailable Unavailable Unavailable BOGNER, SHERRY Unavailable [address] [phone] [address] [place] [address] RACHNA MAYES Unavailable . + [place] [address] R Unavailable Unavailable Unavailable BOGNER, SHERRY Unavailable [address] [phone] [address] [place] [address] RACHNA MAYES Unavailable Unavailable + [place] [address] R Unavailable Unavailable Unavailable BOGNER, SHERRY Unavailable [address] [phone] [address] [place] [address] RACHNA MAYES Unavailable . + [place] [address] R Unavailable Unavailable Unavailable BOGNER, SHERRY Unavailable [address] [phone] [address] [place] [address] RACHNA MAYES Unavailable . + [place] [address] R Unavailable Unavailable Unavailable BOGNER, SHERRY Unavailable [address] [phone] [address] [place] [address] RACHNA MAYES Unavailable . + [place] [address] R Unavailable Unavailable Unavailable SHERRY MAYES Unavailable [address] [facility] [address] [phone] [address] [place] [address] RACHNA MAYES Unavailable . + [place] [address] R Unavailable Unavailable Unavailable SHERRY MAYES Unavailable [address] [facility] [address] [phone] [address] [place] [address] R Unavailable Unavailable Unavailable DANA JOHNSON Unavailable [address] [facility] + [place] [address] Care Team Providers Name Role Phone ELY INGRAM ([facility]) Referring Unavailable ELY INGRAM ([facility]) Referring Unavailable ESTRELLA JIM ([facility]) Referring Unavailable CANCINO, JAYY Referring Unavailable CANCINO, JAYY Attending Unavailable CANCINO, JAYY Referring Unavailable CANCINO, JAYY Referring Unavailable CANCINO, JAYY Referring Unavailable CANCINO, JAYY Attending Unavailable CANCINO, JAYY Referring Unavailable CANCINO, JAYY Referring Unavailable Jolliff, Corin Attending Unavailable Jolliff, Corin Primary Care Unavailable Bhavna Chiang Attending Unavailable Jolliff, Corin Referring Unavailable Jolliff, Corin Primary Care Unavailable Lennox, [place] PRINTING TABLE HAND-C Attending Unavailable Jolliff, Corin Primary Care Unavailable Lennox, [place] PRINTING TABLE HAND-C Referring Unavailable Bunny Verdin Attending Unavailable Jolliff, Corin Referring Unavailable Jolliff, Corin Primary Care Unavailable Venkatesh Argueta Attending Unavailable Venkatesh Argueta Referring Unavailable Jolliff, Corin Primary Care Unavailable Glo Kowalski Attending Unavailable Jolliff, Corin Referring Unavailable Jolliff, Corin Primary Care Unavailable Jolliff, Corin Primary Care Unavailable Mariama Hernandez Attending Unavailable Rageliuhan, Shu N. Attending Unavailable [place], Shu N. Referring Unavailable Jolliff, Corin Primary Care Unavailable Glo Kowalski Attending Unavailable Jolliff, Corin Referring Unavailable MeghanaGlo Attending Unavailable Jolliff, Corin Referring Unavailable Jolliff, Corin Attending Unavailable Jolliff, Corin Primary Care Unavailable Venkatesh Argueta Attending Unavailable Venkatesh Argueta Referring Unavailable Jolliff, Corin Primary Care Unavailable Bhavna Chiang Attending Unavailable Bhavna Chiang Referring Unavailable Jolliff, Corin Primary Care Unavailable [place], Shu N. Consulting Unavailable Estrellita Tony Attending Unavailable Jolliff, Corin Primary Care Unavailable Jayy Sims Attending Unavailable Jolliff, Corin Referring Unavailable Jolliff, Corin Primary Care Unavailable Glo Kowalski Attending Unavailable Jolliff, Corin Referring Unavailable Jolliff, Corin Primary Care Unavailable Lambert, Bunny Attending Unavailable Jolliff, Corin Referring Unavailable Jolliff, Corin Primary Care Unavailable Lambert, Bunny Attending Unavailable DOCTOR, OUT OF TOWN Referring Unavailable Jolliff, Corin Primary Care Unavailable Glo Kowalski Attending Unavailable Jolliff, Corin Referring Unavailable ChiangBhavna Attending Unavailable Jolliff, Corin Referring Unavailable MeghanaGlo gonzalez Attending Unavailable Jolliff, Corin Referring Unavailable Jolliff, Corin Primary Care Unavailable Nick Johnson Attending Unavailable Chiang, Bhavna M Attending Unavailable Chiang, Bhavna M Referring Unavailable Jolliff, Corin Primary Care Unavailable ChiangBhavna M Attending Unavailable Chiang, Bhavan M Referring Unavailable Jolliff, Corin Primary Care Unavailable ChiangLuisBhavna M Attending Unavailable Jolliff, Corin Referring Unavailable Jolliff, Corin Primary Care Unavailable Chiang, Bhavna M Attending Unavailable Chiang, Jose Daniel Referring Unavailable Jolliff, Corin Primary Care Unavailable Raghunathan, Shu N. Attending Unavailable [place], Shu N. Referring Unavailable Jolliff, Corin Primary Care Unavailable Jolliff, Corin Primary Care Unavailable Ene Lang Attending Unavailable Lambert, Bunny Attending Unavailable Lambert, Elma Attending Unavailable Lambert, Elma Attending Unavailable Lambert, Elma Referring Unavailable Jolliff, Corin Primary Care Unavailable Glo Kowalski Attending Unavailable Jolliff, Corin Referring Unavailable Jolliff, Corin Primary Care Unavailable Lambert, Bunny Attending Unavailable Lambert, Bunny Referring Unavailable Jolliff, Corin Primary Care Unavailable ESTRELLITA SOTO Attending Unavailable LAMBERT, BUNNY S Referring Unavailable SCHWESTRELLITA BHARDWAJ Attending Unavailable Jolliff, Corin Primary Care Unavailable LAMBERT, BUNNY S Referring Unavailable PROBLEMS PROBLEMS DATE TYPE CONDITION / CODE ATTENDING STATUS SOURCE Unknown R51 - Headache / Johnson, Active [place] [facility] R51(ICD-10) [facility] Repository Unknown S09.90XA - Unspecified Chiang, Active [place] [facility] injury of head, initial Bhavna Lucero [facility] encounter / Hospital S09.90XA(ICD-10) Repository Active retirement (current) use JAYY CANCINO Active [place] 8 of anticoagulants / Clinic Main Z79.01(ICD-10) [place] Repository Active Other specified abnormal CANCINOJAYY BALDWIN Active [place] 8 findings of blood Clinic Main chemistry / [place] R79.89(ICD-10) Repository Unknown Z95.810 - Presence of Lambert, Elma Active [place] 8 automatic (implantable) [facility] cardiac defibrillator / Hospital Z95.810(ICD-10) Repository Unknown R42 - Dizziness and Lambert, Bunny Active [place] [facility] giddiness / R42(ICD-10) [facility] Hospital Repository Unknown Z95.1 - Presence of Lambert, Bunny Active [place] 8 aortocoronary bypass [facility] graft / Z95.1(ICD-10) Hospital Repository Unknown I10 - Essential (primary) Lambert, Elma Active [place] 8 hypertension / Community I10(ICD-10) Hospital Repository Unknown I48.2 - Chronic atrial Lambert, Bunny Active [place] 8 fibrillation / [facility] I48.2(ICD-10) Hospital Repository Unknown E78.00 - Pure Lambert, Elma Active [place] 8 hypercholesterolemia, Community unspecified / Hospital E78.00(ICD-10) Repository Unknown E78.0 - Pure Lambert, Elma Active [place] 8 hypercholesterolemia / Community E78.0(ICD-10) Hospital Repository Unknown 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, 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, right knee / Venkatesh [facility] M10.061(ICD-10) Hospital Repository Active Ventricular fibrillation SCHWEIKERRavin Active [place] [facility] / I49.01(ICD-10) ESTRELLITA A [facility] Other [place] Repository Active Ischemic cardiomyopathy / CHARLES, Active [place] [facility] I25.5(ICD-10) ESTRELLITA A [facility] Other [place] Repository Active Atherosclerotic heart SCHWEIJAZZ Active [place] [facility] disease of [place] [facility] Other coronary artery without [place] angina pectoris / Repository I25.10(ICD-10) Active Presence of aortocoronary SCHWBENTON, Active [place] 7 bypass graft / [facility] Other Z95.1(ICD-10) [place] Repository Active Presence of automatic SCHWBENTON, Active [place] 6 (implantable) cardiac [facility] Other defibrillator / [place] Z95.810(ICD-10) Repository Admitting Unknown / UNK(Unknown) CHARLES, Active [facility] 7 diagnosis [facility] Repository Unknown E03.9 - Hypothyroidism, [facility], Active [place] [facility] unspecified / Shu N. Community E03.9(ICD-10) Hospital Repository Unknown E11.9 - Type 2 [facility] [place] 8 mellitus without [place]. Community complications / Hospital E11.9(ICD-10) Repository Unknown E55.9 - [facility], Active [place] 8 deficiency, unspecified / Shu N. Community E55.9(ICD-10) Hospital Repository Unknown I48.0 - Paroxysmal atrial Chiang, Active [place] [facility] fibrillation / [facility] I48.0(ICD-10) Hospital Repository Unknown I25.10 - Atherosclerotic Chiang, Active [place] 8 heart disease of [facility] coronary artery without Hospital angina pectoris / Repository I25.10(ICD-10) Active Unknown / UNK(Unknown) NA Active [place] 8 Clinic Main [place] Repository Unknown I50.22 - Chronic systolic Lambert, Elma Active [place] 8 (congestive) heart Community failure / I50.22(ICD-10) Hospital Repository Unknown Z86.79 - Personal history Lambert, Elma Active [place] 8 of other diseases of the Community circulatory system / Hospital Z86.79(ICD-10) Repository Active Atypical atrial flutter / NA Active [place] [facility] I48.4(ICD-10) Clinic Main [place] Repository Active Supraventricular NA Active [place] [facility] tachycardia / Clinic Main I47.1(ICD-10) [place] Repository 12/14/201 Active Calculus of kidney / NA Active [place] [facility] N20.0(ICD-10) Clinic Main [place] Repository PROCEDURES PROCEDURES No Procedure Records FoundRESULTS RESULTS LOWER EXT JOINT ONLY Observed: 08/30/2018 Status: F Source: [place] (ROUTINE) 12:24 PM [facility] REPOSITORY [facility] Imaging Services [address] [place] [address] Lower Ext Joint Only (Routine) MR#: [id number] Acct: [id number] Name: RACHNA MAYES Rep #: [id number] : 1940 M 77 From: Grover Alba MD PCP: Corin Hernandez MD Status: REG CLI Study: Lower Ext Joint Only (Routine) Date of Exam: 08/30/18 Exam# [id number] Ordering Dr: Venkatesh Argueta MD STUDY: MRI RIGHT KNEE REASON FOR EXAM: Right knee pain. TECHNIQUE: Standardized fat and water weighted pulse sequences were obtained in all 3 orthogonal planes. COMPARISON: Radiographs 01/21/2018. FINDINGS: There is a flap tear of the medial meniscus with a displaced fragment at the superior aspect of the anterior body of the medial meniscus (T2 coronal images 16, 17; T2 sagittal image 21). There is mild arthrosis of the medial femorotibial compartment with mild partial-thickness chondral loss of the posterior mesial aspect of the medial femoral condyle (T2 sagittal image 17). Normal medial femoral condyle and tibial plateau. Normal medial collateral ligamentous complex (MCL). Normal distal semimembranosus, gracilis and semitendinosus tendons. There is an oblique tear of the inferior articular surface of the posterior horn of the lateral meniscus (proton-density sagittal images 9-13). There is a small subchondral lesion of the lateral tibial plateau (T2 coronal images 13, 14). Normal proximal tibiofibular articulation. Normal lateral collateral (fibular) ligament. Normal popliteus tendon. Normal biceps femoris tendon. Normal anterior cruciate ligament (ACL). Normal posterior cruciate ligament (PCL). Normal congruent patellofemoral articulation. There is intermediate grade chondromalacia of the medial patellar facet (T2 axial image 10) and subchondral cystic change of the patella. Normal medial and lateral patellar retinaculum. Normal visualized quadriceps tendon. Normal patellar tendon. Normal Hoffa's fat pad. There is a moderate-sized joint effusion. There is a small popliteal cyst (T2 sagittal images 16-19) with mild extravasation of fluid. The otherwise visualized osseous structures are unremarkable. MRI/Lower Ext Joint Only (Routine) IMPRESSION: Medial meniscal tear. Lateral meniscal tear. 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 Small subchondral lesion of the lateral tibial plateau. Joint effusion. Small popliteal cyst with mild extravasation of fluid. Electronically Signed: Grover Alba MD at 14:08 EST Tel , Service support , CC: Corin Hernandez MD; Venkatesh Argueta MD Compression Molding Machine Operator: Signed PACEMAKER CHECK Observed: 08/15/2018 Status: F Source: [place] 7:27 AM [facility] REPOSITORY [facility] Heart [address] [place] [address] Pacemaker Check Date of Service: 08/14/18 1356 MR#: [id number] Acct: [id number] Name: RACHNA MAYES Rep #: [id number] : 1940 From: Glo Kowalski Age/Sex: 77/M Location: [facility] Status: Signed Billing Codes ICD Device Billing: ICD Dev Interrogate (Rmt) 08/14/18 9619 <Electronically signed by Glo Kowalski > Date Glo Kowalski 08/15/18 6507<Electronically signed by Bunny Verdin MD> Cosigner Signature: Date (if applicable) Bunny Verdin MD CC: CARDIOLOGY VISIT Observed: 08/10/2018 Status: F Source: [place] REPORT 11:46 AM [facility] REPOSIT[facility] [address] [place] [address] OFFICE VISIT Date of Service: 08/09/18 MR#: [id number] Acct: [id number] Name: RACHNA MAYES Rep #: [id number] : 1940 Provider: Bhavna Chiang Age/Sex: 77/M Location: [facility] Status: Signed HPI HPI Details: RACHNA MAYES, is a 77 M who presents to the office today for a cardiovascular follow up. He is a gentleman with a history of coronary artery disease status post V. fib arrest who initially had an ICD placed in July 2014. In 2015 he was admitted for pneumonia and sepsis and developed Enterococcus faecalis infection a RANDALL demonstrated vegetation of his tricuspid valve as well as the lead and he eventually underwent extraction of this defibrillator. He was treated with antibiotics and in 2015 underwent placement of a subcutaneous ICD. In January 2017 he had a syncopal event which was noted to be a V. fib event detected by his device. He underwent a cardiac catheterization which demonstrated evidence of severe multivessel disease with a dominant right coronary artery left main with hazy 50-75% stenosis left anterior descending artery luminal irregularities circumflex artery with distal 50% stenosis in the right coronary artery with an eccentric 25% stenosis. He underwent FFR of the left main and it was noted to be abnormal and due to the above he subsequently underwent coronary artery bypass surgery with a left internal mammary artery to left anterior descending artery and saphenous vein graft to obtuse marginal vessel and exclusion of the left atrial appendage with an atrial appendage clip. At our last OV he was having issues with his BP readings. We had increased his norvasc. He also started PT for balance and neck issues. He sts that since this time he has been doing well. His Bp has been better controlled. He does not have any chest pain/heaviness/tightness. He does not have any worsening of SOB. He does not have any palpitations. He does not have any near syncope/syncope. He does not have any edema. 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 Required: No Is patient in pain?: No Allergies LAURA Inhibitors Adverse Reaction (Intermediate, Verified 08/09/18 14:11) cough enalapril Adverse Reaction (Intermediate, Verified 08/09/18 14:11) Shortness of breath adhesive tape Adverse Reaction (Verified 08/09/18 14:11) rash azithromycin [From Zithromax Z-Robert] Adverse Reaction (Verified 08/09/18 14:11) Other levofloxacin [From Levaquin] Adverse Reaction (Verified 08/09/18 14:11) Other warfarin [From Coumadin] Adverse Reaction (Verified 08/09/18 14:11) bleeding under the skin Medications Amlodipine [Norvasc] 2.5 mg PO QHS 05/20/18 [History Confirmed 08/09/18] Apixaban [Eliquis] 5 mg PO BID 05/20/18 [History Confirmed 08/09/18] Ascorbic Acid [Vitamin C] 1,000 mg PO DAILY 05/20/18 [History Confirmed 08/09/18] Atorvastatin Calcium [Lipitor] 20 mg PO QHS 05/20/18 [History Confirmed 08/09/18] Budesonide/Formoterol 160/4.5 [Symbicort 160/4.5 Mcg Inhaler (SP)] 2 puff INHALATION BID 05/20/18 [History Confirmed 08/09/18] Calcium Carbonate [Calcium] 600 mg PO BID 05/20/18 [History Confirmed 08/09/18] Carvedilol 25 mg PO BID 05/20/18 [History Confirmed 08/09/18] Cholecalciferol (Vitamin D3) [Vitamin D3] 1,000 unit PO BID 05/20/18 [History Confirmed 08/09/18] Ferrous Gluconate 325 mg PO BIDCM 05/20/18 [History Confirmed 08/09/18] Fluticasone Furoate [Arnuity Ellipta] 50 mcg IH BID 05/20/18 [History Confirmed 08/09/18] Furosemide [Lasix] 40 mg PO DAILY 05/20/18 [History Confirmed 08/09/18] Insulin Aspart [Novolog Flexpen (BKC)] 8 units SUBCUT LUNCH 05/20/18 [History Confirmed 08/09/18] Insulin Aspart [Novolog Flexpen (BK)] 10 units SUBCUT BREAKFAST 05/20/18 [History Confirmed 08/09/18] Insulin Aspart [Novolog Flexpen (BK)] 10 units SUBCUT DINNER 05/20/18 [History Confirmed 08/09/18] L.acidoph,Paracasei, B.lactis [Probiotic] 1 ea PO BID 05/20/18 [History Confirmed 08/09/18] Levothyroxine [Synthroid] 100 mcg PO DAILY 05/20/18 [History Confirmed 08/09/18] Levothyroxine [Synthroid] 200 mcg PO JARVIS 05/20/18 [History Confirmed 08/09/18] Losartan Potassium [Cozaar] 50 mg PO BID 05/20/18 [History Confirmed 08/09/18] Magnesium 400 mg PO BID 05/20/18 [History Confirmed 08/09/18] Multivitamin [Multiple Vitamins] 1 ea PO DAILY 05/20/18 [History Confirmed 08/09/18] [place]-3 Fatty Acids/Fish Oil [[place] 3 1,000 mg Softgel] 1 ea PO DAILY 05/20/18 [History Confirmed 08/09/18] Tiotropium Mcnabb [Spiriva] 18 mcg IH QHS 05/20/18 [History Confirmed 08/09/18] PFSH Medical History Chronic systolic (congestive) heart failure (Chronic) Nonrheumatic mitral (valve) prolapse (Chronic) Hypokalemia (Chronic) 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) Cardiomyopathy in other diseases classified elsewhere (Chronic) Left bundle branch block (Chronic) retirement use of drug (Chronic) Primary idiopathic hypertrophic cardiomyopathy (Chronic) Atrial fibrillation (Chronic) Family history of CVA (Inactive) Personal history of sudden cardiac arrest (Chronic) Infection and inflammatory reaction due to other cardiac and vascular devices, implants and grafts, initial encounter (Chronic) Anemia (Chronic) Iron deficiency (Chronic) Bilateral carotid bruits (Chronic) HLD (hyperlipidemia) (Chronic) Hypothyroidism (Chronic) Chronic atrial fibrillation (Chronic) Type II diabetes mellitus (Chronic) Cardiomyopathy, nonischemic (Chronic) HTN (hypertension) (Chronic) Left bundle branch block (Chronic) Infectious endocarditis (Resolved) ICD (implantable cardioverter-defibrillator) in place (Chronic) History of sepsis (Resolved) History of acute bacterial endocarditis (Inactive) Surgical History History of left heart catheterization (Chronic) S/P CABG x 2 (Chronic) ICD (implantable cardioverter-defibrillator) infection (Resolved) Family History Father , age 47 from peritonitis Peritonitis Mother , age 93 CVA (cerebral vascular accident) several TIA's Social History Smoking Status: Former smoker how long ago did patient quit smokin alcohol intake: never substance use type: does not use caffeine: No what type of physical activity do you participate in: walking frequency: 5-6 times per week duration: 15-30 minutes/day seatbelt use: always do you feel safe at home: Yes ROS Const Const: Negative for weakness, fatigue, fever(s) or headache(s) Eyes Eyes: Negative for blind spots, loss of peripheral vision or transient loss of vision ENT ENT: Negative for headache(s), dizziness, tinnitus or Nosebleed/epistaxis Cardio Chest Pain: No Palpitations: No Edema: None Muscle aches with walking: None Resp Respiratory: Negative for SOB with activity, SOB at rest, SOB orthopnea\SOB lying down or Cough GI GI: Negative nausea, vomiting, heartburn or vomiting blood/hematemesis : Negative for hematuria Musc Musc: Negative for muscle aches/ myalgia Neuro Neuro: Negative for weakness, headache(s), dizziness, near syncope, syncope, lightheadedness or orthostatic symptoms Rd Hematologic/Lymphatic: Negative for easy bleeding Endo Endo: Negative for fatigue Cardiology Exam Const Appearance: cooperative, no acute distress and well developed Orientation: alert, awake and oriented x3 Head Head: normocephalic and atraumatic Mouth: moist mucous membranes Eyes General: appearance normal, both eyes and all related structures Conjunctivae: conjunctivae normal Pupils: PERRL EOM: EOM intact bilaterally Neck Neck: normal visual inspection, no lymphadenopathy and no JVD Carotids: Negative bruit Neck Mass: Negative Neck mass Chest Chest inspection: normal inspection of the chest and symmetric chest movement Auscultation: Bilateral: Clear to Auscultation Cardio Palpation: normal PMI Rate: regular rate Rhythm: regular rhythm Heart sounds: S1 normal and S2 normal; negative rub, gallop or murmur GI GI: normal to inspection, soft, no hepatosplenomegaly and bowel sounds present; negative tender Neuro General: alert, awake, oriented x3, CN's II-XI intact bilaterally and moves all extremities Extremities Pulses: Normal: Right Posterior Tibial Pulse, Left Posterior Tibial Pulse, Right Radial Pulse, Left Radial Pulse Lower Extremity Edema: None: Bilateral Psych Psychological: normal affect Assessment AND Plan 1. Atherosclerosis of [place] coronary artery of [place] heart without angina pectoris I25.10 FAY to LAD, reverse SVG to OM(FAY graft off the antunez of the SVG to the OM as a free graft); left atrial appendage clipped 04/27/17 per ASA Wiley Stable, from a cardiac standpoint patient does not have any symptoms of angina. We recommend that they continue with current aggressive medical management and risk factor modification. 2. Essential hypertension I10 ASA Gonzalez Blood pressure is well controlled on current medications, we do not recommend any changes at this time. Do feel that headaches were contributing to his BP issues, he will let us know if he continues to have problems. 3. 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 We will continue to monitor with routine scheduled ICD interrogations. Patient has not had any discharges from their device. 4. Cardiomyopathy, nonischemic I42.8 ASA Gonzalez Patient does not have any symptoms of congestive heart failure. Echocardiogram has been reviewed. We will continue to monitor by history, exam and echocardiograms as deemed appropriate. Patient will continue with aggressive medical management. 5. Chronic atrial fibrillation I48.2 ASA Gonzalez Heart rate is adequately controlled. He is anticoagulated with a factor Xa inhibitor. 6. Pure hypercholesterolemia E78.00 ASA Gonzalez Recent lipid profile has been reviewed. Patient will continue with his current dose of low intensity statin. Plan Detail Additional Comments - ASA Rudd The above patient was discussed with Dr. Lambert, he agrees with plan of care. Thank you for allowing us to participate in patient's plan of care, if you have any questions please do not hesitate to call. This note was generated using a voice recognition system and there may be incorrect words, spelling or punctuation errors that were not noted when reviewing the office note prior to saving. Follow Up 4 Months ([employer]) Coding Level of Care Code Off vis,est,level 3 Diagnoses Atherosclerosis of [place] coronary artery of [place] heart without angina pectoris I25.10 [place] vs. 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 Cardiomyopathy, nonischemic I42.8 Chronic atrial fibrillation I48.2 Pure hypercholesterolemia E78.00 Hyperlipidemia type: pure hypercholesterolemia 08/10/18 0911 <Electronically signed by Bhavna BRAY> Date Bhavna BRAY 08/10/18 1146<Electronically signed by Bunny Verdin MD> Cosigner Signature: Date (if applicable) Bunny Verdin MD CC: Corin Hernandez MD CBC W/DIFF, AUTOMATED Collected: 08/06/2018 Status: F Source: [place] 12:38 PM [facility] REPOSITORY TYPE CODE TESTS RESULT OUT OF RANGE REFERENCE UNITS LAB L100.1000 4.4-11.0 K/mm3 Normal WBC 5.8 LAB L100.1200 4.6-6.2 M/mm3 Low RBC 3.67 LAB L100.1300 13.0-16.5 g/dl Low HGB 11.5 LAB L100.1400 40-54 % Low HCT 36.5 LAB L100.1500 80-94 fL High MCV 99.5 LAB L100.1600 27.0-32.0 pg Normal MCH 31.3 LAB L100.1700 32-36 g/gl Low MCHC 31.5 LAB L100.1810 11.6-14.6 % Normal RDW CV 13.9 LAB L100.1820 35.1-43.9 fl High RDW SD 48.2 LAB L100.1900 150-450 K/mm3 Normal PLT 171 LAB L100.2000 6.2-12.0 fl Normal MPV 10.3 LAB L100.2100 47-70 % Normal NEUT% 69.2 LAB L100.2200 19-41 % Low LY% 16.8 LAB L100.2300 0-10 % High MONO% 10.8 LAB L100.2400 0-5 % Normal EO% 2.6 LAB L100.2500 0-1 % Normal BASO% 0.3 LAB L100.2550 0.0-0.9 % Normal IM GRAN % 0.300 Result Comment: IG% - Immature Granulocytes (promyelocytes, myelocytes and metamyelocytes) > 1% indicates that a LEFT SHIFT is Present. LAB L100.2620 2.0-7.7 X10 3/uL Normal Absolute Neut 4.0 LAB L100.2720 0.83-4.51 X10 3/ul Normal Absolute Lymph 0.98 Performed By: #### L100.0100 #### [facility] [address] [place], [place], [address] COMPREHENSIVE METABOLIC Collected: 08/06/2018 Status: F Source: [facility] 12:38 PM [facility] REPOSITORY TYPE CODE TESTS RESULT OUT OF RANGE REFERENCE UNITS LAB L501.0100 74-106 mg/dL High GLU 210 Result Comment: Glucose result greater than or equal to 200 mg/dL suggests DIABETES MELLITUS per A.D.A. criteria. Please note revised GLUCOSE reference range effective 2017. LAB L501.1000 7-18 mg/dL High BUN 21 LAB L501.1100 0.70-1.30 mg/dL High CREAT,SERUM 1.52 Result Comment: The validity of the calculated GFR AND GFRAA in patients over 70 years has not been determined. Clinical correlation is essential. LAB L501.1110 >60 mL/min Low EST GFR 47 Result Comment: Non- GFR Calc LAB L501.1115 >60 mL/min Low EST GFR - AA 57 Result Comment: GFR Calc LAB L501.1300 10-20 RATIO Normal BUN/CRE 13.8 LAB L501.1500 6.4-8.2 g/dL Low T PROT 6.1 LAB L501.1800 3.2-5.0 g/dL Normal ALB 3.4 LAB L501.1950 2.2-4.2 g/dL Normal GLOB 2.7 LAB L501.2000 0.9-2.4 RATIO Normal A/G 1.3 LAB L501.2200 8.5-10.1 mg/dL Low CA 8.4 LAB L501.4100 15-37 U/L Normal AST 17 LAB L501.4305 45-117 U/L Normal ALK P 78 LAB L501.4405 16-61 U/L Normal ALT 24 LAB L501.4600 0.20-1.00 mg/dL T Normal BILI 0.30 LAB L501.5300 136-145 mmol/L High NA 146 LAB L501.5600 3.5-5.1 mmol/L K Normal 4.5 LAB L501.5900 98-107 mmol/L CL Normal 106 LAB L501.6100 21.0-32.0 mmol/L Normal CO2 30.0 LAB L501.6200 5-15 Normal GAP 10 Performed By: #### L500.4050, L501.9520 #### [facility] [address] [place], [place], [id number] THYROID STIM HORMONE Collected: 08/06/2018 Status: F Source: [place] (TSH) 12:38 PM [facility] REPOSITORY TYPE CODE TESTS RESULT OUT OF RANGE REFERENCE UNITS LAB L501.9520 0.358-3.74 uIU/mL Normal TSH 1.51 Performed By: #### L500.4050, L501.9520 #### [facility] [address] [place], [place], [id number] HEMOGLOBIN A1C Collected: 08/06/2018 Status: F Source: [place] 12:38 PM [facility] REPOSITORY TYPE CODE TESTS RESULT OUT OF RANGE REFERENCE UNITS LAB L501.9985 4.2-6.3 % High HGB A1C 7.4 Performed By: #### L501.9985 #### [facility] [address] [place], [place], [address] SPINE CERVICAL Observed: 06/19/2018 Status: F Source: [place] WITHOUT CONTRAS 3:15 PM [facility] REPOSITORY [facility] Imaging Services [address] [place] [address] Spine Cervical without Contras MR#: [id number] Acct: [id number] Name: RACHNA MAYES Rep #: [id number] : 1940 M 77 From: Hiram Randall MD PCP: Corin Hernandez MD Status: REG CLI Study: Spine Cervical without Contras Date of Exam: 06/19/18 Exam# [id number] Ordering Dr: Mirna High PRINTING TABLE HAND-C STUDY: CT CERVICAL SPINE WITHOUT CONTRAST REASON FOR EXAM: Male, 77 years old. Neck and bilateral shoulder pain RADIATION DOSAGE (If Supplied By Facility): CTDIvol = ( 33.22 ) mGy, DLP = ( 651.61 ) mGycm TECHNIQUE: High resolution transaxial imaging was performed without contrast material. Sagittal and coronal images were reconstructed. Individualized dose optimization techniques were used for this CT. COMPARISON: None FINDINGS: Normal craniovertebral junction. Normal anterior atlantoaxial articulation. Normal odontoid process. Normal cervical lordosis. There is diffuse endplate spondylosis from C3 through C7. C6 and C7 are block vertebrae with a rudimentary disc noted. C2-3: Normal endplates. Normal disc height and morphology. Normal central canal and intervertebral neuroforamina. C3-4: There is severe disc space narrowing with vacuum phenomenon. The facets are within normal limits. There is mild foraminal narrowing on the right. There is no central canal stenosis. C4-5: There is severe disc space narrowing. The facets are within normal limits. There is mild bilateral foraminal narrowing. There is no central canal stenosis. C5-6: There is severe disc space narrowing. There are mild degenerative facet changes bilaterally. There is moderately severe foraminal narrowing on the left. There is no central canal stenosis. C6-7: As mentioned above C6 and C7 are block vertebrae, with a rudimentary disc space noted. There is no central canal stenosis or foraminal narrowing. The facets are unremarkable. C7-T1: Normal endplates. Normal disc height and morphology. Normal central canal and intervertebral neuroforamina. Normal visualized soft tissue structures. CT/Spine Cervical without Contras IMPRESSION: Multilevel degenerative changes, as described above. 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 [place] [address] Pacemaker Check Date of Service: 05/25/18 1035 MR#: [id number] Acct: [id number] Name: RACHNA MAYES Rep #: [id number] : 1940 From: Glo Kowalski Age/Sex: 77/M Location: [facility] Status: Signed Billing Codes ICD Device Billing: ICD Dev Interrogate (Rmt) 05/25/18 1037 <Electronically signed by Glo Kowalski > Date Glo Kowalski 05/27/18 0729<Electronically signed by Bunny Verdin MD> Cosigner Signature: Date (if applicable) Bunny Verdin MD CC: EMERGENCY DEPARTMENT Observed: 05/21/2018 Status: F Source: [place] SUMMARY 12:19 AM [facility] REPOSITORY [facility] Medical Records Department [address] [place] [address] Emergency Department Summary 05/20/181938 MR#: [id number] Acct: [id number] Name: RACHNA MAYES Rep #: [id number] : 1940 77 From: Nick Johnson MD PCP: Corin Hernandez MD Status: DEP ER - ER Visit Summary Date of Service: 05/20/18 Chief Complaint: Headache History of Present Illness: The patient is a 77 M for the last 2 months. They are unsure of the headaches are caused by his blood pressure, headaches are increasing his blood pressure or if there is another cause. He had a CAT scan of his brain done approximately a week ago which showed no acute abnormality. He did have a fall about 2 months ago and a headache started but he did not lose consciousness. He denies any fever. He denies any sinus congestion. He has no history of temporal arteritis or trigeminal neuralgia. The headaches are intermittent. Nothing specifically seems to bring them on or make them worse. Physical Examination: Older male no acute distress. Vital signs stable he does have elevated blood pressure 190/85. Afebrile. HEENT exam pupils round reactive light. Extra motions are intact. There is no facial tenderness. No signs of tic [place]. Nor temporal arteritis. No facial droop. Normal speech. Neck nontender. No signs of facial or scalp trauma. Lungs clear to auscultation. Heart regular rhythm no murmur. Abdomen soft and nontender. He is moving all 4 extremities. The neurovascular intact. 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 Neurologically is awake and alert. Normal speech. No facial droop. NIH is 0. No focal motor deficits. Test Results: Sedimentation rate equals 5. Emergency Department Course and Treatment: Patient treated with IV Lopressor for his elevated blood pressure. Tylenol for his headache. Patient was also treated with IV morphine 4 mg x2. Along with Zofran. Headache is 70% better per the patient. Clinically looks well. He and his and his daughter and I had a long discussion. They are comfortable with him being discharged home. They will follow-up with a local neurologist. He will be given Vancleve for pain. Treatment Plan: Vancleve for pain. Follow-up with neurology. Disposition: Discharge Impression: Acute cephalgia uncertain etiology Acute on chronic hypertension This note was generated with JDCPhosphateation software. It may contain incorrect words, spelling, and punctuation that were not noted in review of the chart prior to signing ED Disposition - Plan for ED Patient: Chief Complaint: Headache Referrals: Corin Hernandez MD [Primary Care Provider] - What to do if you have Problems For any increased pain, shortness of breath, bleeding, nausea or vomiting, chest pain, or any unexpected problems, contact your Primary Care Provider. Call [facility] ([phone]) or report to the closest Emergency Room. Call 911 if necessary. 05/21/18 0019 <Electronically signed by Nick Johnson MD> Date Nick Johnson MD Cosigner Signature (If Indicated): Date CC: oCrin Hernandez MD DISCHARGE INSTRUCTION Observed: 05/21/2018 Status: F Source: [place] 12:19 AM [facility] REPOSITORY [facility] Medical Records Department [address] [place] [address] Discharge Instruction 05/20/18 2347 MR#: [id number] Acct: [id number] Name: RACHNA MAYES Rep #: [id number] : 1940 77 From: Nick Johnson MD PCP: Corin Hernandez MD Status: DEP ER ED Disposition - Plan for ED Patient: Disposition: Home or Assisted Living Chief Complaint: Headache Instructions: ED Cephalgia Unspecified Prescriptions: Hydrocodone/Acetaminophen [Vancleve 5-325 Tablet] 1 ea PO Q4H PRN PRN #20 tab PRN Reason: Pain Referrals: Trevin Greenwood MD [STAFF PHYSICIAN] - As soon as possible Additional Instructions: Call follow-up with a neurologist. Vancleve as needed for pain. Plenty of fluids, fiber and stool softener as needed to prevent constipation. We do not have a specific cause for your head pain. He will need further evaluation. What to do if you have Problems For any increased pain, shortness of breath, bleeding, nausea or vomiting, chest pain, or any unexpected problems, contact your Primary Care Provider. Call [facility] ([phone]) or report to the closest Emergency Room. Call 911 if necessary. 05/21/18 0019 <Electronically signed by Nick Johnson MD> Date Nick Johnson MD Cosigner Signature (If Indicated): Date CC: Corin Hernandez MD BEDSIDE GLUCOSE Collected: 05/20/2018 Status: F Source: [place] 9:32 PM [facility] REPOSITORY TYPE CODE TESTS RESULT OUT OF RANGE REFERENCE UNITS LAB L501.080 70-110 mg/dL Normal BEDSIDE GLU 105 Result Comment: MANAGEMENT OF PATIENT CARE PER NURSING PROTOCOL Performed By: #### L501.080 #### [facility] Point of Care [address] [place] [address] ERYTHROCYTE SED RATE Collected: 05/20/2018 Status: F Source: [place] 7:45 PM [facility] REPOSITORY TYPE CODE TESTS RESULT OUT OF RANGE REFERENCE UNITS LAB L102.0000 0-20 mm/hr Normal SED RATE 5 Performed By: #### L101.9900 #### [facility] [address] [place], [place], [address] CARDIOLOGY VISIT Observed: 05/16/2018 Status: F Source: [place] REPORT 5:09 PM [facility] REPOSITORY [facility] [address] [place] [address] OFFICE VISIT Date of Service: 05/13/18 MR#: [id number] Acct: [id number] Name: RACHNA MAYES Rep #: [id number] : 1940 Provider: Bhavna Chiang Age/Sex: 77/M Location: [facility] Status: Signed HPI HPI Details: RACHNA MAYES, is a 77 M who presents to the office today for an urgent appt for headaches and high Bp readings. He is a gentleman with a history of coronary artery disease status post V. fib arrest who initially had an ICD placed in July 2014. In 2015 he was admitted for pneumonia and sepsis and developed Enterococcus faecalis infection a RANDALL demonstrated vegetation of his tricuspid valve as well as the lead and he eventually underwent extraction of this defibrillator. He was treated with antibiotics and in 2015 underwent placement of a subcutaneous ICD. In January 2017 he had a syncopal event which was noted to be a V. fib event detected by his device. He underwent a cardiac catheterization which demonstrated evidence of severe multivessel disease with a dominant right coronary artery left main with hazy 50-75% stenosis left anterior descending artery luminal irregularities circumflex artery with distal 50% stenosis in the right coronary artery with an eccentric 25% stenosis. He underwent FFR of the left main and it was noted to be abnormal and due to the above he subsequently underwent coronary artery bypass surgery with a left internal mammary artery to left anterior descending artery and saphenous vein graft to obtuse marginal vessel and exclusion of the left atrial appendage with an atrial appendage clip. Patient called her office last week with concerns over elevated blood pressure readings. Had increased his losartan to 50 mg twice a day. He presents here today with continued elevated blood pressure readings and headaches. He states that he has been taking for Tylenol every 4 hours since last week. I did obtain a Tylenol level. This is pending. He does not have any chest pain or shortness of breath. He does not have any lightheadedness or dizziness. He does not have any lower extremity edema. In the past he had been on Norvasc, this was discontinued in January due to lower blood pressure readings and dizziness. 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) Allergies LAURA Inhibitors Adverse Reaction (Intermediate, Verified 05/13/18 12:57) cough enalapril Adverse Reaction (Intermediate, Verified 05/13/18 12:57) Shortness of breath adhesive tape Adverse Reaction (Verified 05/13/18 12:57) rash azithromycin [From Zithromax Z-Robert] Adverse Reaction (Verified 05/13/18 12:57) Other levofloxacin [From Levaquin] Adverse Reaction (Verified 05/13/18 12:57) Other warfarin [From Coumadin] Adverse Reaction (Verified 05/13/18 12:57) bleeding under the skin Medications Ascorbic Acid [Vitamin C] 1,000 mg PO DAILY 10/21/16 [History Confirmed 04/04/18] Ferrous Sulfate [Iron] 325 mg PO BID 10/21/16 [History Confirmed 05/13/18] Multivitamin [Multiple Vitamins] 1 ea PO DAILY 10/21/16 [History Confirmed 05/13/18] Cholecalciferol (VIT D3) [Vitamin D3] 1,000 unit PO DAILY 03/21/17 [History Confirmed 05/13/18] L.acidoph,Paracasei, B.lactis [Probiotic] 1 ea PO BID 03/21/17 [History Confirmed 05/13/18] Calcium Carbonate [Calcium] 600 mg PO BID 07/13/17 [History Confirmed 05/13/18] Insulin Aspart [Novolog Flexpen] 10 units SC BIDCM 07/13/17 [History Confirmed 05/13/18] Insulin Aspart [Novolog Flexpen] 12 units SC DINNER 07/13/17 [History Confirmed 05/13/18] Magnesium Oxide [Magnesium] 400 mg PO BID 07/13/17 [History Confirmed 05/13/18] [place]-3 Fatty Acids [[place]-3] 1,000 mg PO DAILY 07/13/17 [History Confirmed 05/13/18] Apixaban [Eliquis] 5 mg PO BID tab 07/15/17 [Rx Confirmed 05/13/18] atorvastatin 20 mg tablet 20 mg PO QDAY 10/09/17 [History Confirmed 05/13/18] insulin glargine (U-100) 100 unit/mL subcutaneous solution 12 unit SC QHS 10/09/17 [History Confirmed 05/13/18] levothyroxine 100 mcg capsule 100 mcg PO .COMPLEX cap 10/09/17 [History Confirmed 05/13/18] carvedilol 25 mg tablet 25 mg PO BID #180 tab 11/12/17 [Rx Confirmed 05/13/18] Budesonide/Formoterol Fumarate [Symbicort 160-4.5 Mcg Inhaler] 6 gm IH BID 01/21/18 [History Confirmed 04/04/18] furosemide 40 mg tablet 40 mg PO DAILY #90 tab 02/18/18 [Rx Confirmed 05/13/18] paroxetine 20 mg tablet 20 mg PO QDAY #30 tab 03/20/18 [Rx Confirmed 05/13/18] Tiotropium Mcnabb [Spiriva] 18 mcg IH DAILY 04/04/18 [History Confirmed 05/13/18] Cephalexin [Keflex] 500 mg PO Q6 #40 cap 04/05/18 [Rx Confirmed 05/13/18] losartan 100 mg tablet 50 mg PO BID #90 tab 05/06/18 [Rx Confirmed 05/13/18] amlodipine 2.5 mg tablet 2.5 mg PO DAILY #30 tab 05/13/18 [Rx Confirmed 05/13/18] fluticasone 50 mcg/actuation nasal spray,suspension 2 spray INTRANASAL BID g 05/13/18 [History Confirmed 05/13/18] [facility] Medical History Nonrheumatic mitral (valve) prolapse (Chronic) Hypokalemia (Chronic) 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) Cardiomyopathy in other diseases classified elsewhere (Chronic) Left bundle branch block (Chronic) rn long term care use of drug (Chronic) Primary idiopathic hypertrophic cardiomyopathy (Chronic) Atrial fibrillation (Chronic) Family history of CVA (Inactive) Personal history of sudden cardiac arrest (Chronic) Infection and inflammatory reaction due to other cardiac and vascular devices, implants and grafts, initial encounter (Chronic) Anemia (Chronic) Iron deficiency (Chronic) Bilateral carotid bruits (Chronic) HLD (hyperlipidemia) (Chronic) Hypothyroidism (Chronic) Chronic atrial fibrillation (Chronic) Type II diabetes mellitus (Chronic) Cardiomyopathy, nonischemic (Chronic) HTN (hypertension) (Chronic) Left bundle branch block (Chronic) Infectious endocarditis (Resolved) ICD (implantable cardioverter-defibrillator) in place (Chronic) History of sepsis (Resolved) History of acute bacterial endocarditis (Inactive) Surgical History History of left heart catheterization (Chronic) S/P CABG x 2 (Chronic) ICD (implantable cardioverter-defibrillator) infection (Resolved) Family History Father , age 47 from peritonitis Peritonitis Mother , age 93 CVA (cerebral vascular accident) several TIA's Social History Smoking Status: Never smoker how long ago did patient quit smokin alcohol intake: never substance use type: does not use caffeine: No what type of physical activity do you participate in: walking frequency: 5-6 times per week duration: 15-30 minutes/day seatbelt use: always do you feel safe at home: Yes ROS Const Const: Positive for fatigue, weakness, headache(s) and other (C/O elevated BP); negative for difficulty sleeping, frequent falls or excessive sweating Eyes Eyes: Negative for loss of peripheral vision, transient loss of vision, blurry vision, tunnel vision or double vision ENT ENT: Positive for headache(s); negative for dizziness, Nosebleed/epistaxis or balance problems Cardio Chest Pain: No Palpitations: No Edema: None Muscle aches with walking: None Resp Respiratory: Positive for Cough (white sputum); negative for SOB with activity, SOB at rest, SOB orthopnea\SOB lying down or paroxysmal nocturnal dyspnea GI GI: Negative nausea, heartburn, black,tarry stools or vomiting : Negative for hematuria Musc Musc: Negative for balance problems, muscle aches/ myalgia, muscle weakness or joint pain Skin Skin: Negative non-healing lesions, unusual bruising or rash Neuro Neuro: Positive for weakness and headache(s); negative for frequent falls, blurry vision, double vision, dizziness, lightheadedness, orthostatic symptoms, near syncope, syncope or lack of coordination Rd Hematologic/Lymphatic: Negative for easy bruising or easy bleeding Endo Endo: Positive for fatigue; negative for excessive sweating or increased thirst/drinking Psych Psych: Negative for anxiety or depression Allergy Allergy/Immunology: Negative for hives, Negative for rash Cardiology Exam Const Appearance: cooperative, no acute distress and well developed Orientation: alert, awake and oriented x3 Head Head: normocephalic and atraumatic Mouth: moist mucous membranes Eyes General: appearance normal, both eyes and all related structures Conjunctivae: conjunctivae normal Pupils: PERRL EOM: EOM intact bilaterally Neck Neck: normal visual inspection, no lymphadenopathy and no JVD Carotids: Negative bruit Neck Mass: Negative Neck mass Chest Chest inspection: normal inspection of the chest and symmetric chest movement Auscultation: Bilateral: Clear to Auscultation Cardio Palpation: normal PMI Rate: regular rate Rhythm: regular rhythm Heart sounds: S1 normal and S2 normal; negative rub, gallop or murmur GI GI: normal to inspection, soft, no hepatosplenomegaly and bowel sounds present; negative tender Neuro General: alert, awake, oriented x3, CN's II-XI intact bilaterally and moves all extremities Extremities Pulses: Normal: Right Posterior Tibial Pulse, Left Posterior Tibial Pulse, Right Radial Pulse, Left Radial Pulse Lower Extremity Edema: None: Bilateral Psych Psychological: normal affect Supplemental Info Echocardiogram in 2017 demonstrated Moderate global left ventricular systolic dysfunction. The estimated ejection fraction is 30 %. Mild concentric left ventricular hypertrophy. The left atrium is severely enlarged. The right atrium is mildly enlarged. Mild mitral valve prolapse. Mild diffuse mitral valve thickening. Mild-Moderate (1-2+) mitral valve insufficiency. Mild to moderate (1-2+) tricuspid valve insufficiency. Mild (1+) pulmonic valve insufficiency. Right ventricular systolic pressure estimated to be 49 mmHg c/w pulmonary hypertension. Transmitral diastolic flow velocities suggest diastolic dysfunction (pseudonormal pattern). Assessment AND Plan 1. Essential hypertension I10 ASA Gonzalez Patient's blood pressure readings are elevated. We will have him resume his Norvasc however will do this at 2.5 mg daily. We will have the call us next week with an update on what his blood pressure readings have been. Since he has been taking an increased dose of acetaminophen, acetaminophen level is still pending. CMP was acceptable. Patient also did fall approximately 6 weeks ago which correlates with the timeframe of elevated blood pressure and headaches we are obtaining a CT scan. Patient is on blood thinners. 2. Paroxysmal atrial fibrillation I48.0 ASA Gonzalez Patient's heart rate is controlled. He is on a factor X inhibitor. Since he did fall on his head a few weeks ago which does correlate with timeframe of headaches we are obtaining a CT of his head. 3. Chronic systolic (congestive) heart failure I50.22 Plan - ASA Rudd Patient currently does not have any symptoms of congestive heart failure. Will not make any adjustments. 4. 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 We will continue to monitor with routine scheduled ICD interrogations. Patient has not had any discharges from their device. Plan Detail Other Orders Orders: Other Medications New: Additional Comments - ASA Rudd The above patient was discussed with Dr. Verdin, he agrees with plan of care. Thank you for allowing us to participate in patient's plan of care, if you have any questions please do not hesitate to call. This note was generated using a voice recognition system and there may be incorrect words, spelling or punctuation errors that were not noted when reviewing the office note prior to saving. Follow Up 05/13/18 (keep as is) Coding Level of Care Code Off vis,est,level 4 Diagnoses Essential hypertension I10 Hypertension type: essential hypertension Paroxysmal atrial fibrillation I48.0 Atrial fibrillation type: paroxysmal Chronic systolic (congestive) heart failure I50.22 ICD (implantable cardioverter-defibrillator) in place Z95.810 Coding Level of Care Code Off vis,est,level 4 Diagnoses Essential hypertension I10 Hypertension type: essential hypertension Paroxysmal atrial fibrillation I48.0 Atrial fibrillation type: paroxysmal Chronic systolic (congestive) heart failure I50.22 ICD (implantable cardioverter-defibrillator) in place Z95.810 05/13/18 1509 <Electronically signed by Bhavna BRAY> Date Bhavna BRAY 05/16/18 1709<Electronically signed by Bunny Verdin MD> Cosigner Signature: Date (if applicable) Bunny Verdin MD CC: Corin Hernandez MD ACETAMINOPHEN (TYLENOL) Collected: 05/15/2018 Status: F Source: [place] LEVEL 4:15 PM [facility] REPOSITORY TYPE CODE TESTS RESULT OUT OF REFERENCE UNITS RANGE LAB L501.8400 10.0-30.0 ug/mL ACETAMINOPHEN Normal 16.7 Performed By: #### L501.8400 #### [facility] [address] [place], [address] BRAIN/HEAD WITHOUT Observed: 05/13/2018 Status: F Source: [place] CONTRAST 2:56 PM [facility] REPOSITORY [facility] Imaging Services [address] [place] [address] Brain/Head without Contrast MR#: [id number] Acct: [id number] Name: RACHNA MAYES Rep #: [id number] : 1940 M 77 From: Angelito Hylton MD PCP: Corin Hernandez MD Status: REG CLI Study: Brain/Head without Contrast Date of Exam: 05/13/18 Exam# [id number] Ordering Dr: Bhavna Chiang STUDY: CT BRAIN WITHOUT CONTRAST REASON FOR EXAM: Male, 77 years old. Frequent headaches. On blood thinners. RADIATION DOSAGE (If Supplied By Facility): CTDIvol = ( 44.99 ) mGy, DLP = ( 880.47 ) mGycm TECHNIQUE: Transaxial CT imaging of the brain was performed without administration of intravenous contrast material. Individualized dose optimization techniques were used for this CT. COMPARISON: Comparison is made with prior examination dated July 12, 2017. FINDINGS: Normal soft tissue structures. Normal calvarium. There is asymmetry of the ventricles consistent with an anatomic variant. Normal white matter tracts of the cerebral hemispheres. 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 Normal brainstem. Normal cerebellum. There is no intracranial hemorrhage. There are no findings of an acute ischemic infarction. Normal visualized paranasal sinuses. CT/Brain/Head without Contrast IMPRESSION: Chronic involutional changes of the brain. 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 Electronically Signed: Angelito Hylton MD at 15:32 EDT Tel [phone], Service support , CC: Corin Hernandez MD; Bhavna Chiang Compression Molding Machine Operator: Signed COMPREHENSIVE METABOLIC Collected: 05/13/2018 Status: F Source: [place] 9:40 AM [facility] REPOSITORY TYPE CODE TESTS RESULT OUT OF RANGE REFERENCE UNITS LAB L501.0100 74-106 mg/dL High GLU 226 Result Comment: Glucose result greater than or equal to 200 mg/dL suggests DIABETES MELLITUS per A.D.A. criteria. Please note revised GLUCOSE reference range effective 2017. LAB L501.1000 7-18 mg/dL High BUN 28 LAB L501.1100 0.70-1.30 mg/dL High CREAT,SERUM 1.75 Result Comment: The validity of the calculated GFR AND GFRAA in patients over 70 years has not been determined. Clinical correlation is essential. LAB L501.1110 >60 mL/min Low EST GFR 40 Result Comment: Non- GFR Calc LAB L501.1115 >60 mL/min Low EST GFR - AA 49 Result Comment: GFR Calc LAB L501.1300 10-20 RATIO Normal BUN/CRE 16.0 LAB L501.1500 6.4-8.2 g/dL T Normal PROT 6.6 LAB L501.1800 3.2-5.0 g/dL Normal ALB 3.5 LAB L501.1950 2.2-4.2 g/dL Normal GLOB 3.1 LAB L501.2000 0.9-2.4 RATIO Normal A/G 1.1 LAB L501.2200 8.5-10.1 mg/dL CA Normal 8.5 LAB L501.4100 15-37 U/L Normal AST 17 LAB L501.4305 45-117 U/L Normal ALK P 62 LAB L501.4405 16-61 U/L Normal ALT 25 LAB L501.4600 0.20-1.00 mg/dL T Normal BILI 0.40 LAB L501.5300 136-145 mmol/L NA Normal 142 LAB L501.5600 3.5-5.1 mmol/L K Normal 4.2 LAB L501.5900 98-107 mmol/L CL Normal 106 LAB L501.6100 21.0-32.0 mmol/L Normal CO2 30.0 LAB L501.6200 5-15 Normal GAP 6 Performed By: #### L500.4050 #### [facility] [address] [place], [address] HEMOGLOBIN A1C Collected: 04/24/2018 Status: F Source: [place] 8:52 AM [facility] REPOSITORY TYPE CODE TESTS RESULT OUT OF RANGE REFERENCE UNITS LAB L501.9985 4.2-6.3 % High HGB A1C 6.4 Performed By: #### L501.9985 #### [facility] [address] [place], [address] COMPREHENSIVE METABOLIC Collected: 04/24/2018 Status: F Source: [facility] 8:52 AM [facility] REPOSITORY TYPE CODE TESTS RESULT OUT OF RANGE REFERENCE UNITS LAB L501.0100 74-106 mg/dL High GLU 154 Result Comment: Fasting Glucose result greater than or equal to 126 mg/dL suggests DIABETES MELLITUS per A.D.A. criteria. Please note revised GLUCOSE reference range effective 2017. LAB L501.1000 7-18 mg/dL High BUN 23 LAB L501.1100 0.70-1.30 mg/dL High CREAT,SERUM 1.63 Result Comment: The validity of the calculated GFR AND GFRAA in patients over 70 years has not been determined. Clinical correlation is essential. LAB L501.1110 >60 mL/min Low EST GFR 44 Result Comment: Non- GFR Calc LAB L501.1115 >60 mL/min Low EST GFR - AA 53 Result Comment: GFR Calc LAB L501.1300 10-20 RATIO Normal BUN/CRE 14.1 LAB L501.1500 6.4-8.2 g/dL T Normal PROT 6.7 LAB L501.1800 3.2-5.0 g/dL Normal ALB 3.4 LAB L501.1950 2.2-4.2 g/dL Normal GLOB 3.3 LAB L501.2000 0.9-2.4 RATIO Normal A/G 1.0 LAB L501.2200 8.5-10.1 mg/dL CA Normal 8.7 LAB L501.4100 15-37 U/L Normal AST 21 LAB L501.4305 45-117 U/L Normal ALK P 71 LAB L501.4405 16-61 U/L Normal ALT 30 LAB L501.4600 0.20-1.00 mg/dL T Normal BILI 0.50 LAB L501.5300 136-145 mmol/L NA Normal 145 LAB L501.5600 3.5-5.1 mmol/L K Normal 4.1 LAB L501.5900 98-107 mmol/L CL Normal 107 LAB L501.6100 21.0-32.0 mmol/L Normal CO2 30.0 LAB L501.6200 5-15 Normal GAP 8 Performed By: #### L500.4050, L500.4100, L501.9520 #### [facility] [address] [place], [address] LIPID PROFILE Collected: 04/24/2018 Status: F Source: [place] 8:52 AM [facility] REPOSITORY TYPE CODE TESTS RESULT OUT OF RANGE REFERENCE UNITS LAB L501.4900 200 mg/dL Normal CHOL 112 Result Comment: <200 mg/dL Desirable 200-240 mg/dL Borderline >240 mg/dL High Risk LAB L501.5000 mg/dL Normal TRIG 83 Result Comment: The drugs N-Acetylcysteine and Metamizole may falsely depress this assay. Serum Triglycerides Reference Interval Normal <150 mg/dL Borderline high 150 - 199 mg/dL High 200 - 499 mg/dL Very High > or = 500 mg/dL LAB L501.6400 mg/dL Normal HDL 76 Result Comment: The drugs N-Acetylcysteine and Metamizole may falsely depress this assay. Reference Range HDL <40 mg/dL Low HDL Cholesterol HDL >or= 60 mg/dL High HDL Cholesterol LAB L501.6500 0-130 mg/dL Normal LDL 19 LAB L501.6600 5-40 mg/dL Normal VLDL 17 Performed By: #### L500.4050, L500.4100, L501.9520 #### [facility] [address] [place], [address] THYROID STIM HORMONE Collected: 04/24/2018 Status: F Source: [place] ([facility]) 8:52 AM [facility] REPOSITORY TYPE CODE TESTS RESULT OUT OF RANGE REFERENCE UNITS LAB L501.9520 0.358-3.74 uIU/mL Normal TSH 1.16 Performed By: #### L500.4050, L500.4100, L501.9520 #### [facility] [address] [place], [address] EMERGENCY DEPARTMENT Observed: 04/05/2018 Status: F Source: [place] SUMMARY 1:38 AM [facility] REPOSITORY [facility] Medical Records Department [address] [facility] [place] [address] Emergency Department Summary 04/05/18 0012 MR#: [id number] Acct: [id number] Name: RACHNA MAYES Rep #: [id number] : 1940 77 From: Ene Lang MD PCP: Corin Hernandez MD Status: REG ER - ER Visit Summary Date of Service: 04/05/18 Chief Complaint: Left foot laceration History of Present Illness: The patient is a 77 M presenting with left foot injury. Patient states he was working on a shower. As he stepped out of the shower he slipped and fell. He cut the bottom of his left foot. He has pain to both feet. He denies hitting his head or losing consciousness. Last tetanus is unknown. No other injuries. Physical Examination: Vitals are stable. Patient is afebrile. Alert no acute distress. HEENT exam is unremarkable. Neck is nontender Lungs are clear and equal bilaterally. Heart is regular rate and rhythm. Extremities right second toe tenderness with mild abrasion. Left fifth toe tenderness, 1.5cm laceration to the plantar aspect of the proximal left fifth toe. 1 cm laceration to plantar aspect of left fourth toe Skin is warm and dry. No focal neurologic deficit. Remainder of exam is unremarkable. Emergency Department Course and Treatment: X-ray of the left foot shows nondisplaced transverse fracture proximal fifth phalanx without adjacent soft tissue swelling. Fracture age is likely acute to subacute. X-ray of the right foot shows no fracture. He was given tetanus IM and Keflex. Wound was copiously irrigated. Anesthetized with lidocaine. 5, 5-0 simple sutures were placed in the laceration of the fifth toe. 1, 5-0 simple suture was placed in the fourth toe laceration. Patient tolerated this well. He is given a prescription for Keflex. Advised to follow-up with his primary care physician or java web user interface developer. Advised return to ED for worsening complaints. Disposition: Discharge home Impression: Left fifth toe fracture, laceration left fourth and fifth toe, laceration repair This note was generated with [employer] dictation software. It may contain incorrect words, spelling, and punctuation that were not noted in review of the chart prior to signing ED Disposition - Plan for ED Patient: Chief Complaint: Laceration Referrals: Corin Hernandez MD [Primary Care Provider] - What to do if you have Problems For any increased pain, shortness of breath, bleeding, nausea or vomiting, chest pain, or any unexpected problems, contact your Primary Care Provider. Call [facility] ([phone]) or report to the closest Emergency Room. Call 911 if necessary. 04/05/18137 <Electronically signed by Ene Lang MD> Date Ene Lang MD Cosigner Signature (If Indicated): Date CC: Corin Hernandez MD DISCHARGE INSTRUCTION Observed: 04/05/2018 Status: F Source: [place] 1:38 AM [facility] REPOSITORY [facility] Medical Records Department [address] [place] [address] Discharge Instruction 04/05/18137 MR#: [id number] Acct: [id number] Name: RACHNA MAYES Rep #: [id number] : 1940 77 From: Ene Lang MD PCP: Corin Hernandez MD Status: REG ER ED Disposition - Plan for ED Patient: Chief Complaint: Laceration Instructions: ED Laceration Foot Prescriptions: Cephalexin [Keflex] 500 mg PO Q6 #40 capsule Referrals: Corin Hernandez MD [Primary Care Provider] - Nick Harding DPM [STAFF PHYSICIAN] - What to do if you have Problems For any increased pain, shortness of breath, bleeding, nausea or vomiting, chest pain, or any unexpected problems, contact your Primary Care Provider. Call [facility] ([phone]) or report to the closest Emergency Room. Call 911 if necessary. 04/05/18 0138 <Electronically signed by Ene Lang MD> Date Ene Lang MD Cosigner Signature (If Indicated): Date CC: Corin Hernandez MD FOOT MIN 3 VIEWS Observed: 04/04/2018 Status: F Source: [place] 11:25 PM [facility] REPOSITORY [facility] Imaging Services [address] [place] [address] Foot min 3 Views MR#: [id number] Acct: [id number] Name: RACHNA MAYES Rep #: [id number] : 1940 M 77 From: Louie Hogue MD PCP: Corin Hernandez MD Status: REG ER Study: Foot min 3 Views Date of Exam: 04/04/18 Exam# [id number] Ordering Dr: Ene Lang MD STUDY: X-RAY - RIGHT FOOT CLINICAL: Male, 77 years old. History of fall and laceration. TECHNIQUE: 3 view(s) of the foot. COMPARISON: None. FINDINGS: Normal talus, calcaneus, and tarsal bones. Normal visualized subtalar, talonavicular, calcaneocuboid, tarsal and tarsometatarsal articulations. Normal metatarsi. There is degenerative arthrosis of the metatarsophalangeal joint of the hallux . Normal tibial and fibular sesamoid bones. Normal interphalangeal joint of the great toe. Normal phalanges of the great toe. Normal second through fifth metatarsophalangeal joints. Normal interphalangeal joints and phalanges of the lesser toes. The soft tissue structures are unremarkable. 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 No demonstrated acute osseous injury. Electronically Signed: Louie Hogue MD at 23:45 EDT Tel , Service support , CC: Ene Lang MD; Corin Hernandez MD Compression Molding Machine Operator: Signed FOOT MIN 3 VIEWS Observed: 04/04/2018 Status: F Source: [place] 11:22 PM [facility] REPOSITORY [facility] Imaging Services [address] [place] [address] Foot min 3 Views MR#: [id number] Acct: [id number] Name: RACHNA MAYES Rep #: [id number] : 1940 M 77 From: Tiffani Randolph MD PCP: Corin Hernandez MD Status: REG ER Study: Foot min 3 Views Date of Exam: 04/04/18 Exam# [id number] Ordering Dr: Ene Lang MD STUDY: X-RAY - LEFT FOOT CLINICAL: Male, 77 years old. Left foot laceration after fall TECHNIQUE: 3 view(s) of the foot. COMPARISON: None. FINDINGS: There is a transverse nondisplaced fracture through the proximal fifth phalanx without adjacent soft tissue swelling. Normal talus, calcaneus, and tarsal bones. Normal visualized subtalar, talonavicular, calcaneocuboid, tarsal and tarsometatarsal articulations. Normal metatarsi. There is minimal degenerative arthrosis of the metatarsophalangeal joint of the hallux . Normal tibial and fibular sesamoid bones. Normal interphalangeal joint of the great toe. Normal phalanges of the great toe. Normal second through fifth metatarsophalangeal joints. Mild narrowing of the interphalangeal joints and otherwise normal phalanges of the lesser toes. The soft tissue structures are unremarkable. RAD/Foot min 3 Views IMPRESSION: Nondisplaced transverse fracture proximal fifth phalanx without adjacent soft tissue swelling. Fracture age is likely acute to subacute. There is no callus formation. Mild degenerative changes. There is no radiopaque foreign body. Electronically Signed: Tiffani Randolph MD at 23:49 EDT , Service support , CC: Ene Lang MD; Corin Hernandez MD Compression Molding Machine Operator: Signed BASIC METABOLIC PANL Collected: 03/28/2018 Status: F Source: [place] 11:25 AM [facility] REPOSITORY TYPE CODE TESTS RESULT OUT OF REFERENCE UNITS RANGE LAB GLU 74-99 mg/dL High Glucose 102 Result Comment: The [place] [employer] (ADA) provides guidance for cutoff values for fasting glucose and random glucose. The ADA defines fasting as no caloric intake for at least 8 hours. Fas ting plasma glucose results between 100 to 125 mg/dL indicate increased risk for diabetes (prediabetes). Fasting plasma glucose results greater than or equal to 126 mg/dL meet the criteria for diagnosis of diabetes. In the absence of unequivocal hyperglycemia, results should be confirmed by repeat testing. In a patient with classic symptoms of hyperglycemia or hyperglycemic crisis, random plasma glucose results greater than or equal to 200 mg/dL meet the criteria for diagnosis of diabetes. Reference: Standards of Medical Care in Diabetes 2016, [place] [employer]. Diabetes Care. 2016.39(Suppl 1). LAB BUN 9-24 mg/dL BUN High 29 LAB CRET 0.73-1.22 mg/dL Creatinine High 1.96 LAB NA 136-144 mmol/L Sodium 142 LAB K 3.7-5.1 mmol/L Potassium 4.5 LAB CL 97-105 mmol/L Chloride 100 LAB CO2 22-30 mmol/L CO2 High 31 LAB AGAP 9-18 mmol/L Anion Gap 11 LAB CA 8.5-10.2 mg/dL Calcium, Total 9.8 LAB GFRAA eGFR- Amer. 40 LAB GFRNAA . eGFR-All Other Races 33 Result Comment: eGFR (Estimated GFR) Units of measure: mL/min/1.73 meters squared eGFR is derived from the reexpressed MDRD Study equation using the following parameters: serum creatinine, age, gender and race. The creatinine assay has been calibrated to be traceable to IDMS. An eGFR <60 mL/min/1.73m2 for >3 months is consistent with chronic kidney disease. Refer to KDOQI guidelines for clinical interpretation. In patients with unstable renal function, e.g. those with acute kidney injury, the eGFR may not accurately reflect actual GFR. Performed By: #### BMP #### [facility] [address] [address] PROGRESS Observed: 03/28/2018 Status: COMPLETED Source: [place] 10:46 AM [facility] REPOSITORY O ID: [id number] Author: Jayy Cancino Service: (none) Author Type: Physician Type: Progress Notes Filed: 03/28/2018 10:49 AM Note Text: STAFF UROLOGY NOTE: Followed for nephrolithiasis. No symptoms whatsoever; no stone events since last check up. Voids with good stream. NF 1-2 (drinking at night), DF q3-4h. No hematuria, dysuria, flank pain, fever, nausea, incontinence. Bowels: No diarrhea, constipation, blood, vomiting. U/A negative. KUB/sono show stable bilateral stones with some stones in right upper ureter per ultrasound, chronic. No hydro either side. No symptoms. Was told his creatinine has risen and indeed, it was 1.47 last Winter and 2.0 last December (Outside scanned labs from [facility]). Has never seen Nephrology. Imp: The primary encounter diagnosis was Calculus of kidney. Diagnoses of Elevated serum creatinine and Current use of rat exterminator anticoagulation were also pertinent to this visit. Plan: Will consult Nephrology. In absence of hydro, I doubt stone removal would improve the creatinine. Also, patient is very high risk for PCNL in view of cardiac disease, long-term anticoagulation, etc. Blood work today and f/u 6 mo with KUB/sono Jayy Cancino MD Director, Surgical Stone Disease, [facility] [place] rail loader, [facility] Pager [phone] 03/28/2018 CNOV Observed: 03/28/2018 Status: COMPLETED Source: KATY 9:30 AM [facility] REPOSITORY Office Visit (UROLMN) RACHNA AMYES ([id number]) 1940 M NFR Date Time Provider Department 03/28/18 9:30 AM JAYY CANCINO During your visit today, we recorded the following information about you: Pulse Blood pressure Weight Height 51/minute 108/65 99.6 kg 1.88 m Jayy Cancino MD 03/28/2018 10:49 AM Signed STAFF UROLOGY NOTE: Followed for nephrolithiasis. No symptoms whatsoever; no stone events since last check up. Voids with good stream. NF 1-2 (drinking at night), DF q3-4h. No hematuria, dysuria, flank pain, fever, nausea, incontinence. Bowels: No diarrhea, constipation, blood, vomiting. U/A negative. KUB/sono show stable bilateral stones with some stones in right upper ureter per ultrasound, chronic. No hydro either side. No symptoms. Was told his creatinine has risen and indeed, it was 1.47 last Winter and 2.0 last December (Outside scanned labs from [facility]). Has never seen Nephrology. Imp: The primary encounter diagnosis was Calculus of kidney. Diagnoses of Elevated serum creatinine and Current use of [facility] anticoagulation were also pertinent to this visit. Plan: Will consult Nephrology. In absence of hydro, I doubt stone removal would improve the creatinine. Also, patient is very high risk for PCNL in view of cardiac disease, long-term anticoagulation, etc. Blood work today and f/u 6 mo with KUB/alexandroo Jayy Cancino MD Director, Surgical Stone Disease, [facility] [place] rail loader, [facility] Pager [phone] 03/28/2018 Referring Provider: JAYY CANCINO [[id number]] Allergies As of Date: 03/28/2018 Noted Allergy Reaction DUST MITES 02/10/2010 14 - Other: See Comments ENALAPRIL 04/13/2015 3 - Cough LATEX 01/23/2018 14 - Other: See Comments Comments: Pulls the skin off of him. MOLDS EXTRACT 02/10/2010 14 - Other: See Comments Date Reviewed: 03/28/2018 Reviewed by: Florence Govea - Fully Assessed Primary Visit Diagnosis:Calculus of kidney [N20.0] Other Visit Diagnoses:Elevated serum creatinine [R79.89] Current use of [place] anticoagulation [Z79.01] Order(s):UA CHEMSTRIP ONLY [SQUA] Order #: [id number] FUTURE UA CHEMSTRIP ONLY [SQUA] Order #: [id number]. #:[id number] CONSULT TO NEPHROL/HYPERTENS [[id number]] Order #: [id number]: 1 BASIC METABOLIC PNL [SQBMP] Order #: [id number] FUTURE KIDNEY/BLADDER [[id number]] Order #: [id number] FUTURE XR ABDOMEN 3V KUB W/OBLIQUES [[id number]] Order #: [id number] FUTURE Prescriptions as of 03/28/2018 Sig: PAROXETINE 20 MG TABLET Take 20 mg by mouth once yessi* BUDESONIDE-FORMOTEROL HFA 160* Inhale 2 Puffs as instructed * LANTUS SOLOSTAR U-100 INSULIN* Inject 12 Units subcutaneousl* INSULIN ASPART U-100 100 UNI* Inject subcutaneously three t* OMEGA 3 FISH OIL ORAL Take by mouth once daily. FLUTICASONE 50 MCG/ACTUATION * Use 1 [place] in each nostril o* INSULIN LISPRO (U-100) 100 UN* Inject subcutaneously three * LEVEMIR SUBCUTANEOUS Inject 12 Units subcutaneousl* ASCORBIC ACID (VITAMIN C) 1,0* Take 1,000 mg by mouth once d* VITAMIN D-3 ORAL Take by mouth. LEVOTHYROXINE 50 MCG TABLET Take 50 mcg by mouth once tri* ATORVASTATIN 40 MG TABLET Take 20 mg by mouth daily at * CARVEDILOL 25 MG TABLET Take 25 mg by mouth twice tri* APIXABAN 5 MG TABLET Take 5 mg by mouth twice yessi* FERROUS SULFATE 325 MG (65 MG* Take 325 mg by mouth twice da* LACTOBACILLUS ACIDOPHILUS ORAL Take by mouth once daily. MAGNESIUM ORAL Take 400 mg by mouth twice da* FLUTICASONE 250 MCG-SALMETERO* Inhale 1 Puff as instructed o* CPAP Use as directed * MULTIVITAMIN TABLET Take 1 tablet by mouth once d* * TIOTROPIUM BROMIDE 18 MCG CAP* inhale once daily LEVOTHYROXINE 100 MCG TABLET Take 100 mcg by mouth daily b* LOSARTAN 100 MG TABLET Take 50 mg by mouth once yessi* AMLODIPINE 10 MG TABLET Take 10 mg by mouth once yessi* AMIODARONE 200 MG TABLET Take 1 tablet by mouth once d* FUROSEMIDE 40 MG TABLET Take 40 mg by mouth once yessi* OMEGA 3 ORAL Take 1,000 mg by mouth once d* * OMEPRAZOLE 20 MG CAPSULE,BRITNEY* Take 20 mg by mouth once yessi* Medication notes this encounter ATORVASTATIN 40 MG TABLET >> Florence Govea 03/28/2018 10:11 AM >> FLORENCE GOVEA SunMar 28, 2018 10:11 AM Taking differently LEVOTHYROXINE 100 MCG TABLET >> Florence Govea 03/28/2018 10:12 AM >> FLORENCE GOVEA SunMar 28, 2018 10:12 AM Not taking LOSARTAN 100 MG TABLET >> Florence Govea 03/28/2018 10:12 AM >> FLORENCE GOVEA SunMar 28, 2018 10:12 AM Not taking AMLODIPINE 10 MG TABLET >> Florence Govea 03/28/2018 10:15 AM >> FLORENCE GOVEA SunMar 28, 2018 10:15 AM Not taking AMIODARONE 200 MG TABLET >> Florence Govea 03/28/2018 10:15 AM >> FLORENCE GOVEA SunMar 28, 2018 10:15 AM Not taking FUROSEMIDE 40 MG TABLET >> Florence Govea 03/28/2018 10:15 AM >> FLORENCE GOVEA [facility] Mar 28, 2018 10:15 AM Not taking OMEGA 3 ORAL >> Florencenati Govea 03/28/2018 10:15 AM >> BREANN, FLORENCE [facility] Mar 28, 2018 10:15 AM Not taking OMEPRAZOLE 20 MG CAPSULE,DELAYED RELEASE >> Florencenati Govea 03/28/2018 10:16 AM >> BREANN, FLORENCE [facility] Mar 28, 2018 10:16 AM Not taking Problem List As Of Date 03/28/2018 Noted Resolved MALIGN NEOPL PROSTATE [C61] INVALID FOR* Proteinuria [R80.9] INVALID FOR* Calculus of kidney [N20.0] INVALID FOR* Essential hypertension [I10] INVALID FOR* Hyperlipidemia [E78.5] INVALID FOR* Gastro-esophageal reflux disease without esopha*INVALID FOR* NIDDM (non-insulin dependent diabetes mellitus) INVALID FOR* CHF (congestive heart failure) [I50.9] INVALID FOR* Rectal nodule [K62.89] INVALID FOR* Bladder stone [N21.0] INVALID FOR* Diabetes type 2, controlled [E11.9] INVALID FOR* Hypothyroidism [E03.9] INVALID FOR* Acquired cyst of kidney [N28.1] INVALID FOR* BPH without obstruction/lower urinary tract sym*INVALID FOR* Cardiac arrest (HCC) [I46.9] INVALID FOR*05/31/2016 ICD (implantable cardioverter-defibrillator) in*INVALID FOR* History of coronary artery bypass graft x 2 [Z9*INVALID FOR* CAD (coronary artery disease) [I25.10] Ischemic cardiomyopathy [I25.5] Ventricular fibrillation (HCC) [I49.01] More... Cardiac arrest (HCC) [I46.9] More... Presence of implantable cardioverter-defibrilla* More... Cardiomyopathy (HCC) [I42.9] More... 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] INVALID FOR* Anemia of renal disease [D63.1] INVALID FOR* Chronic renal insufficiency, stage III (moderat*INVALID FOR* Streptococcus infection, group D enterococcus [*INVALID FOR* Family history of cerebrovascular accident (CVA*INVALID FOR* History of bacterial endocarditis [Z86.79] INVALID FOR* History of malignant neoplasm of prostate [Z85.*INVALID FOR* Current use of rat exterminator anticoagulation [Z79.0*INVALID FOR* rn long term care (current) use of antithrombotics/anti*INVALID FOR* retirement (current) use of oral hypoglycemic dr*INVALID FOR* retirement current use of insulin (HCC) [Z79.4] INVALID FOR* Chronic low back pain [M54.5, G89.29] INVALID FOR* retirement current use of amiodarone [Z79.899] Elevated serum creatinine [R79.89] INVALID FOR* Disposition: Return in about 6 months (around 09/28/2018) for nephrology consult; blood work today; f/u 6 mo with KUB/sono. Follow-up and Disposition History Recorded Encounter Status:Closed by JAYY CANCINO MD on 03/28/18 URINALYSIS Collected: 03/28/2018 Status: F Source: [place] 8:46 AM [facility] REPOSITORY TYPE CODE TESTS RESULT OUT OF REFERENCE UNITS RANGE LAB UCOL Yellow Color Yellow LAB [facility] Clear Clarity Clear LAB UGLUC Negative mg/dL Glucose, Urine Negative LAB UBIL Negative Bilirubin, Urine Negative LAB UKET Negative Ketones, Urine Negative LAB USPG 1.005-1.030 Specific [place], Ur 1.008 LAB UHGB Negative Hemoglobin/Blood, Negative Ur LAB UPH 4.5-8.0 pH 5.0 LAB UPROT Negative mg/dL Protein, Urine Negative LAB UUROB Normal Urobilinogen Normal LAB UNITR Negative Nitrites Negative LAB ULKEST Negative Leukest Negative LAB UCOM Comments SEE COMMENT Result Comment: Microscopic not warranted LAB UMCOM Urine SEE North Comment COMMENT Result Comment: N/A Performed By: #### UA #### [facility] [employer] [address] [place], [place] [address] PROGRESS Observed: 03/25/2018 Status: COMPLETED Source: [place] 10:33 AM [facility] REPOSITORY HNO ID: [id number] Author: Raquel Hardy [facility] Service: (none) Author Type: (none) Type: Progress Notes Filed: 03/25/2018 10:33 AM Note Text: Radiology Service Progress Note PATIENT NAME: Rachna Mayes DATE OF SERVICE: March 25, 2018 TIME: 10:33 AM PATIENT IDENTITY VERIFICATION COMPLETED USING TWO (2) METHODS: Patient confirmed name verbally and Date of . PATIENT GENDER DATA: Male PATIENT RELEVANT IMPLANT DATA REVIEWED: Not Applicable RADIOLOGY DEPARTMENT: Ultrasound PERIPHERAL IV DATA: Not applicable SIGNED BY: Raquel Hardy Rdms March 25, 2018 10:33 AM US KIDNEY/BLADDER Observed: 03/25/2018 Status: F Source: KATY 10:32 AM [facility] REPOSITORY * * *Final Report* * * DATE OF EXAM: Mar 25 2018 10:32AM WRU 1055 - US KIDNEY/BLADDER / PROCEDURE REASON: Calculus of kidney * * * * Physician Interpretation * * * * EXAMINATION: ULTRASOUND KIDNEY/BLADDER CLINICAL HISTORY: Renal stones and cysts. TECHNIQUE: Sonography of the kidneys and urinary bladder was performed. Images were obtained and stored in a permanent archive. 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 -Renal length: 15 cm -Parenchyma: Normal parenchymal echogenicity. Normal parenchymal thickness. -Collecting system: No hydronephrosis. -Calculus: Multiple calculi identified measuring up to 8 mm. Multiple stones are also present within the proximal ureter with the largest one measuring 1.8 cm. -Lesion: There is a 2.1 x 1.5 x 2.4 cm cyst in the lower pole of the kidney. Left Kidney: -Renal length: 12.6 cm -Parenchyma: Normal parenchymal echogenicity. Normal parenchymal thickness. -Collecting system: No hydronephrosis. -Calculus: A 1 cm stone seen in the lower pole of the kidney. -Lesion: There are multiple cysts measuring, from inferior to superior, 2.9 x 2.2 x 2.7 cm, 3.2 x 2.5 x 3.3 cm, 2.1 x 1.5 x 1.6 cm and 3.0 x 2.2 x 2.1 cm. Bladder: Prevoid volume 86.7 cc. Post void volume was not obtained (patient unable to void). IMPRESSION: Bilateral renal cysts/cystic lesions. Some of them showing interval slight increase in size. Bilateral renal calculi and proximal right ureteral calculi. Compression Molding Machine Operator: ADONAY Transcribe Date/Time: Mar 26 2018 3:28P Dictated by : GILDA MCKINNEY MD This examination was interpreted and the report reviewed and electronically signed by: GILDA MCKINNEY MD on Mar 26 2018 3:45PM EST [id number] Observed: 03/25/2018 Status: COMPLETED Source: KAT[place] 9:37 AM [facility] REPOSITORY HNO ID: [id number] Author: Corina (Rt) Susan Graham Service: (none) Author Type: All Source Analyst Type: Progress Notes Filed: 03/25/2018 9:37 AM Note Text: Radiology Service Progress Note PATIENT NAME: Rachna Mayes DATE OF SERVICE: March 25, 2018 TIME: 9:37 AM PATIENT IDENTITY VERIFICATION COMPLETED USING TWO (2) METHODS: Patient confirmed name verbally and Date of . PATIENT GENDER DATA: Male PATIENT RELEVANT IMPLANT DATA REVIEWED: Not Applicable RADIOLOGY DEPARTMENT: General X-ray: Exam(s) Completed: Abdomen X-Ray Abdomen with Obliques PERIPHERAL IV DATA: Not applicable SIGNED BY: RT Min March 25, 2018 9:37 AM XR ABDOMEN 3V KUB Observed: 03/25/2018 Status: F Source: KATY W/OBLIQUES 9:09 AM [facility] REPOSITORY * * *Final Report* * * DATE OF EXAM: Mar 25 2018 9:09AM WOX [id number] - XR ABDOMEN 3V KUB W/OBLIQUES / PROCEDURE REASON: Calculus of kidney * * * * Physician Interpretation * * * * Clinical Information: Renal calculus Supine and oblique views of the abdomen were obtained. Comparison: Multiple previous studies most recent dated 10/05/2017 There is a nonspecific, nonobstructive bowel gas pattern. No abnormal abdominal masses are identified. 1.7 cm calcification right lower quadrant corresponds to a stone within the renal pelvis of the malrotated right kidney. Cluster of stones overlying the mid left kidney. Surgical clips right upper quadrant. Previous cholecystectomy. No acute bony abnormalities are seen. IMPRESSION: Nonspecific, nonobstructive bowel gas pattern. Bilateral renal calculi not significantly changed. Compression Molding Machine Operator: ADONAY Transcribe Date/Time: Mar 26 2018 9:29A Dictated by : ADAMS SLOAN MD This examination was interpreted and the report reviewed and electronically signed by: ADAMS SLOAN MD on Mar 26 2018 9:31AM EST [id number] REPORT Observed: 03/01/2018 Status: F Source: [place] 11:32 AM [facility] REPOSITORY [facility] [address] [place] [address] MR#: [id number] Acct: [id number] Name: RACHNA MAYES Rep #: [id number] : 1940 77 From: Bunny Verdin MD Primary Care: Corin Hernandez MD Status: REG CLI Ordering Dr: Dennise: Nic Garcia Stress Test Report Pharmacologic myocardial perfusion stress test. 77-year-old man with a history of coronary artery disease. Medications losartan atorvastatin insulin NovoLog Coreg. Stress protocol: Resting EKG demonstrates normal sinus rhythm with rate of 64 bpm left bundle branch block is noted resting blood pressure is 120/80 mmHg. 0.4 mg of regadenoson was infused per usual protocol followed by rapid intravenous saline flush injection continuous EKG monitoring was performed. Patient maintained sinus rhythm throughout the recording. The maximum heart rate attained was 80 bpm which was 56% maximum predicted heart rate. The resting blood pressure is 120/80 mmHg with a maximum blood pressure 136/72 mmHg. Myocardial perfusion protocol. 11.9 mCi of technetium 99m sestamibi was injected at rest. 0.4 mg of regadenoson was infused per usual protocol. At peak infusion 34.4 mCi of technetium 99m sestamibi was injected stress images were obtained stress and rest images were reconstructed and compared in the short axis vertical long and horizontal long axis. Gated images were also obtained. Perfusion SPECT analysis: Review of the stress images demonstrate normal uptake of tracer noted in all areas of the myocardium. The resting images similarly demonstrate normal uptake of tracer noted in all areas of myocardium. No areas of reversibility are noted suggest ischemia and no previous infarct is noted. Gated SPECT analysis: The gated ejection fraction is 59%. Conclusion: Normal pharmacologic myocardial perfusion stress test. Preserved ejection fraction. 03/01/18 1132 <Electronically signed by Bunny Verdin MD> Date Bunny Verdin MD CC: Corin Hernandez MD; Bunny Verdin MD Date Dictated: 03/01/181121 Date Transcribed: 03/01/181121 Compression Molding Machine Operator: CO Signed PACEMAKER CHECK Observed: 02/22/2018 Status: F Source: [place] 4:14 PM [facility] REPOSITORY [facility] [address] [place] [address] Pacemaker Check Date of Service: 02/20/186 MR#: [id number] Acct: [id number] Name: RACHNA MAYES Rep #: [id number] : 1940 From: Glo Kowalski Age/Sex: 77/M Location: [facility] Status: Signed Billing Codes ICD Device Billing: ICD Dev Interrogate (t) 02/20/18 1730 <Electronically signed by Glo Kowalski > Date Glo Kowalski 02/22/18 1614<Electronically signed by Bunny Verdin MD> Cosigncarlos Signature: Date (if applicable) Bunny Verdin MD CC: CARDIOLOGY VISIT Observed: 02/13/2018 Status: F Source: [place] REPORT 4:50 PM [facility] REPOSITORY [facility] [address] [place] [address] OFFICE VISIT Date of Service: 02/13/18 MR#: [id number] Acct: [id number] Name: RACHNA MAYES Rep #: [id number] : 1940 Provider: Bunny Verdin MD Age/Sex: 77/M Location: [facility] Status: Signed HPI HPI Chief Complaint: Follow up visit and chest pain Details: RACHNA MAYES, is a 77 M who presents to the office today for a follow-up visit. He is a gentleman with a history of coronary artery disease status post V. fib arrest who initially had an ICD placed in July 2014. In 2015 he was admitted for pneumonia and sepsis and developed Enterococcus faecalis infection a RANDALL demonstrated vegetation of his tricuspid valve as well as the lead and he eventually underwent extraction of this defibrillator. He was treated with antibiotics and in 2015 underwent placement of a subcutaneous ICD. In January 2017 he had a syncopal event which was noted to be a V. fib event detected by his device. He underwent a cardiac catheterization which demonstrated evidence of severe multivessel disease with a dominant right coronary artery left main with hazy 50-75% stenosis left anterior descending artery luminal irregularities circumflex artery with distal 50% stenosis in the right coronary artery with an eccentric 25% stenosis. He underwent FFR of the left main and it was noted to be abnormal and due to the above he subsequently underwent coronary artery bypass surgery with a left internal mammary artery to left anterior descending artery and saphenous vein graft to obtuse marginal vessel and exclusion of the left atrial appendage with an atrial appendage clip. He tells me that recently he has been having some dizzy spells he does not matter when he is sitting or standing. He tends to get them more frequently when he standing. Also approximately week ago he had an episode of sharp ache. He has had no dizziness or diaphoresis with this and has not had any radiation. His physical exam today demonstrates clear lung billingsley regular rate and rhythm and no pedal edema. 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 Allergies LAURA Inhibitors Adverse Reaction (Intermediate, Verified 02/13/18 16:06) cough enalapril Adverse Reaction (Intermediate, Verified 02/13/18 16:06) Shortness of breath adhesive tape Adverse Reaction (Verified 02/13/18 16:08) rash azithromycin [From Zithromax Z-Robert] Adverse Reaction (Verified 02/13/18 16:06) Other levofloxacin [From Levaquin] Adverse Reaction (Verified 02/13/18 16:06) Other warfarin [From Coumadin] Adverse Reaction (Verified 02/13/18 16:06) bleeding under the skin Medications Ascorbic Acid [Vitamin C] 1,000 mg PO DAILY 10/21/16 [History Confirmed 02/13/18] Ferrous Sulfate [Iron] 325 mg PO BID 10/21/16 [History Confirmed 02/13/18] Multivitamin [Multiple Vitamins] 1 ea PO DAILY 10/21/16 [History Confirmed 02/13/18] Omeprazole [Prilosec] 20 mg PO DAILY 10/21/16 [History Confirmed 02/13/18] Cholecalciferol (VIT D3) [Vitamin D3] 1,000 unit PO DAILY 03/21/17 [History Confirmed 02/13/18] L.acidoph,Paracasei, B.lactis [Probiotic] 1 ea PO BID 03/21/17 [History Confirmed 02/13/18] Calcium Carbonate [Calcium] 600 mg PO BID 07/13/17 [History Confirmed 02/13/18] Furosemide [Lasix] 40 mg PO DAILY 07/13/17 [History Confirmed 02/13/18] Insulin Aspart [Novolog Flexpen] 10 units SC BIDCM 07/13/17 [History Confirmed 02/13/18] Insulin Aspart [Novolog Flexpen] 12 units SC DINNER 07/13/17 [History Confirmed 02/13/18] Magnesium Oxide [Magnesium] 400 mg PO BID 07/13/17 [History Confirmed 02/13/18] [place]-3 Fatty Acids [[place]-3] 1,000 mg PO DAILY 07/13/17 [History Confirmed 02/13/18] Spiriva 18 MCG 18 mcg INHALATION DAILY 07/13/17 [History Confirmed 02/13/18] Apixaban [Eliquis] 5 mg PO BID tab 07/15/17 [Rx Confirmed 02/13/18] atorvastatin 20 mg tablet 20 mg PO QDAY 10/09/17 [History Confirmed 02/13/18] fluticasone 50 mcg/actuation blister powder for inhalation 1 inh INHALATION BID 10/09/17 [History Confirmed 02/13/18] insulin glargine (U-100) 100 unit/mL subcutaneous solution 12 unit SC QHS 10/09/17 [History Confirmed 02/13/18] levothyroxine 100 mcg capsule 100 mcg PO .COMPLEX cap 10/09/17 [History Confirmed 02/13/18] carvedilol 25 mg tablet 25 mg PO BID #180 tab 11/12/17 [Rx Confirmed 02/13/18] paroxetine 20 mg tablet 20 mg PO QDAY #30 tab 11/16/17 [Rx Confirmed 02/13/18] losartan 100 mg tablet 50 mg PO DAILY #90 tab 01/07/18 [Rx Confirmed 02/13/18] Budesonide/Formoterol Fumarate [Symbicort 160-4.5 Mcg Inhaler] 6 gm IH BID 01/21/18 [History Confirmed 02/13/18] [facility] Medical History History of sepsis (Chronic) History of acute bacterial endocarditis (Chronic) Nonrheumatic mitral (valve) prolapse (Chronic) Hypokalemia (Chronic) 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) Cardiomyopathy in other diseases classified elsewhere (Chronic) Left bundle branch block (Chronic) rn long term care use of drug (Chronic) Primary idiopathic hypertrophic cardiomyopathy (Chronic) Atrial fibrillation (Chronic) Family history of CVA (Inactive) Personal history of sudden cardiac arrest (Chronic) Infection and inflammatory reaction due to other cardiac and vascular devices, implants and grafts, initial encounter (Chronic) Anemia (Chronic) Iron deficiency (Chronic) Bilateral carotid bruits (Chronic) HLD (hyperlipidemia) (Chronic) Hypothyroidism (Chronic) Chronic atrial fibrillation (Chronic) Chronic CHF (congestive heart failure) (Chronic) Type II diabetes mellitus (Chronic) Paroxysmal a-fib (Chronic) Left bundle branch block (Chronic) ICD (implantable cardioverter-defibrillator) in place (Chronic) Surgical History History of left heart catheterization (Chronic) S/P CABG x 2 (Chronic) Family History Father , age 47 from peritonitis Peritonitis Mother , age 93 CVA (cerebral vascular accident) several TIA's Social History Smoking Status: Never smoker how long ago did patient quit smokin alcohol intake: never substance use type: does not use caffeine: No what type of physical activity do you participate in: walking frequency: 5-6 times per week duration: 15-30 minutes/day seatbelt use: always do you feel safe at home: Yes ROS Const Const: Negative for fatigue, weakness, difficulty sleeping, frequent falls, headache(s) or excessive sweating Eyes Eyes: Negative for loss of peripheral vision, transient loss of vision, blurry vision or double vision ENT ENT: Positive for dizziness; negative for headache(s), Nosebleed/epistaxis or balance problems Cardio Chest Pain: Yes Frequency: other (Occasional chest pain. Last episode 2 weeks ago lasted 10 min) Location: left chest Edema: None Muscle aches with walking: None Resp Respiratory: Negative for SOB with activity, SOB at rest, SOB orthopnea\SOB lying down or paroxysmal nocturnal dyspnea GI GI: Negative nausea or heartburn : Negative for hematuria Musc Musc: Negative for muscle aches/ myalgia, muscle weakness, joint pain or balance problems Skin Skin: Negative non-healing lesions, unusual bruising or rash Neuro Neuro: Positive for dizziness, lightheadedness and orthostatic symptoms; negative for weakness, frequent falls, blurry vision, headache(s) or double vision Rd Hematologic/Lymphatic: Negative for easy bruising Endo Endo: Negative for fatigue, excessive sweating or increased thirst/drinking Psych Psych: Negative for anxiety or depression Allergy Allergy/Immunology: Negative for hives, Negative for rash Cardiology Exam Const Appearance: cooperative, healthy appearing, well developed, well groomed and no acute distress Nutritional Appearance: well nourished and average body habitus Orientation: alert, awake and oriented x3 Head Head: normal to inspection, normocephalic and atraumatic Ears: hearing grossly normal bilaterally and external ears normal Nose: external nose normal, nasal mucous membranes and turbinates normal, nares normal, septum normal, no nasal discharge Face and Sinus: face symmetric Mouth: oral mucosae normal, tongue normal, oropharynx normal and moist mucous membranes Teeth and gingiva: dentition normal Throat: posterior oropharynx normal, tonsils normal and uvula midline Eyes General: appearance normal, both eyes and all related structures Eyelids: eyelids normal Conjunctivae: conjunctivae normal Pupils: PERRL, normal by confrontation and accommodation normal EOM: EOM intact bilaterally Neck Neck: normal visual inspection, trachea midline and no JVD JVD: +5 Carotids: normal carotid upstroke and bounding pulses Chest Chest inspection: normal inspection of the chest, symmetric chest movement and normal respiratory effort Auscultation: Bilateral: Clear to Auscultation Cardio Palpation: normal PMI Rate: regular rate Rhythm: regular rhythm Heart sounds: S1 normal, S2 normal and normal, physiologic split S2; negative rub, gallop or murmur GI GI: normal to inspection, soft, no hepatosplenomegaly and bowel sounds present Neuro General: alert, awake, oriented x3, no focal sensory deficit, gait normal and moves all extremities Skin Skin: no rashes or lesions noted Extremities Pulses: Normal: Right Femoral Pulse, Left Femoral Pulse, Right Dorsalis Pedis Pulse, Left Dorsalis Pedis Pulse, Right Posterior Tibial Pulse, Left Posterior Tibial Pulse, Right Radial Pulse, Left Radial Pulse Lower Extremity Edema: None: Bilateral Musculoskel Musculoskeletal: No joint tenderness Psych Psychological: normal affect Assessment AND Plan 1. Dizziness R42 Plan He has complained of dizziness the etiology of which is not entirely clear my recommendation is for us to continue monitoring him out suggest a 48 hour Holter monitor. If no significant abnormality is noted and will continue to monitor him through his defibrillator. His blood pressure appears to be doing quite well at this time and I may recommend that we take him off of the amlodipine. Orders Orders: 2. S/P CABG x 2 Z95.1 FAY to LAD, reverse SVG to OM(FAY graft off the antunez of the SVG to the OM as a free graft); left atrial appendage clipped 04/27/[address] Knox Plan He did experience some chest pain which appears to be atypical. However it is been a year since his bypass surgery and I recommend that we obtain a pharmacologic myocardial perfusion stress test. 3. Essential hypertension I10 Plan We will continue to monitor his blood pressure on the carvedilol and the diuretic. And they would get back to us regarding the above. He in addition he remains on the losartan 50 mg once a day. 4. ICD (implantable cardioverter-defibrillator) in place Z95.810 Plan He does have an ICD in place. Remember the original one was explanted we will continue to monitor the above carefully. Remote S-ICD Evaluation: See attached scanned Latitude report. Remote interrogation shows no tachyarrhythmia episodes since 05/11/17. Presenting rhythm shows Sinus bradycardia @ 58 bpm. Remaining battery life to [place] 77%. Electorde impedance status ok. Pt notified remote transmission received and next f/u appt scheduled for in 3 mos. Orders Orders: 5. Chronic atrial fibrillation I48.2 Plan He does have a history of atrial fibrillation for which he remains on anticoagulation. We will continue to monitor the above through his defibrillator as well. 6. Pure hypercholesterolemia E78.00; E78.0 Plan He is on lipid-lowering therapy. It appears that this was discontinued about a month ago his most recent lipid profile demonstrated total cholesterol 168, LDL of 80 and HDL of 75. I have asked that we resume his 20 mg of Lipitor once again. Thank you for allowing me to participate in the care of your patient. 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) Coding Level of Care Code Off vis,est,level 5 Diagnoses Dizziness R42 S/P CABG x 2 Z95.1 Essential hypertension I10 Hypertension type: essential hypertension ICD (implantable cardioverter-defibrillator) in place Z95.810 Chronic atrial fibrillation I48.2 Pure hypercholesterolemia E78.00; E78.0 Hyperlipidemia type: pure hypercholesterolemia Coding Level of Care Code Off vis,est,level 5 Diagnoses Dizziness R42 S/P CABG x 2 Z95.1 Essential hypertension I10 Hypertension type: essential hypertension ICD (implantable cardioverter-defibrillator) in place Z95.810 Chronic atrial fibrillation I48.2 Pure hypercholesterolemia E78.00; E78.0 Hyperlipidemia type: pure hypercholesterolemia 02/13/18 1650 <Electronically signed by Bunny Verdin MD> Date Bunny Verdin MD Cosigner Signature: Date (if applicable) CC: Corin Hernandez MD PACEMAKER CHECK Observed: 02/11/2018 Status: F Source: [place]IP[place] 8:06 AM [facility] [address] [place] [address] Pacemaker Check Date of Service: 01/22/18 1403 MR#: [id number] Acct: [id number] Name: RACHNA MAYES Rep #: [id number] : 1940 From: Glo Kowalski Age/Sex: 77/M Location: [facility] [place] Status: Signed Comments Summary Comments: Remote S-ICD Evaluation: See attached scanned Latitude report. Remote interrogation shows no untrated or trested episodes since 05/11/17. Presenting rhythm shows Sinus bradycardia @ 58 bpm. Remaining battery life to [place] 77%. Electorde impedance status ok. Pt notified remote transmission received and next f/u appt scheduled for in 3 mos. Device Device Date Interviewed: 01/21/18 Follow-up Location: remote Interview Reason: scheduled follow up Site Director: Adayana Name: Embbevm S-ICD Model: A209 Serial #: [id number] Implant Date: 01/31/16 Year(s): 1 Implant Physician: Dr. Estrellita Soto/[facility] Patient Characteristics Ventricular Indication: Ventricular Fibrillation Patient Substrate: Ischemic cardiomyopathy, Nonischemic cardiomyopathy Ejection fraction %: 45 to 49 (11/02/2015) By: Echo Underlying rhythm: Sinus rhythm Pacemaker Dependent: No Device Characteristics Type: Implantable defibrillator Remote Follow-Up: Latitude Billing Codes ICD Device Billing: ICD Dev Interrogate (Rmt) Assessment AND Plan Problems 1. ICD (implantable cardioverter-defibrillator) in place Z95.810 2. Ventricular fibrillation I49.01 3. Left bundle branch block I44.7 4. Paroxysmal a-fib I48.0 5. Sinus tachycardia R00.0 6. Chronic systolic congestive heart failure I50.22 Systolic EF 40% 7. Syncope R55 8. Paroxysmal atrial fibrillation I48.0 9. 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 Cardiomyopathy in other diseases classified elsewhere I43 11. Personal history of sudden cardiac arrest Z86.74 V fib arrest 02/08/18 1901 <Electronically signed by Glo Kowalski > Date Glo Kowalski 02/11/18 0806<Electronically signed by Bunny Verdin MD> Cosigner Signature: Date (if applicable) Bunny Verdin MD CC: SYNOVIAL FLUID RBC, Collected: 01/25/2018 Status: F Source: [place] WBC AND DIFF 9:48 AM [facility] REPOSITORY TYPE CODE TESTS RESULT OUT OF RANGE REFERENCE UNITS LAB L200.5050 0.000-0.000 10 3 uL High SYN Tot 0.[address] Result Comment: This is the Total Number of Nucleated Cell Types in the Body Fluid. LAB L200.5100 0 /mm3 High SYNOVIAL RBC 678 LAB L200.5200 0.000-0.002 10 3uL High SYNOVIAL WBC 0.3020 LAB L200.5260 % SYBF PMN Normal WBC% 36.1 LAB L200.5270 10 3/ul SYBF PMN Normal WBC# 0.109 LAB L200.5280 % SYBF MN Normal WBC% 63.9 LAB L200.5800 PATH Normal COM/SYFL May follow LAB L200.4600 SYNOVIAL Normal SOURCE R KNEE LAB L200.4800 HIGH Normal VISCOSITY/SYFL Mod. Viscous LAB L200.4900 Pale Yellow SYNOVIAL Normal COLOR Yellow LAB L200.5000 CLEAR SYNOVIAL Normal MEHRAN. Sl Cl LAB L200.5290 10 3/ul SYBF MN Normal WBC# 0.193 LAB L200.5300 0-25 % High NEUTROPHIL 54 LAB L200.5400 % LYMPH Normal 6 LAB L200.5500 % MONO Normal 28 LAB L200.5700 % OTHER Normal CELL /SYN 12 Performed By: #### L200.0400, L200.4175 #### [facility] [address] [place], [address] CRYSTALS, BODY FLUID Collected: 01/25/2018 Status: C Source: [place]IPAK 9:48 AM [facility] REPOSITORY TYPE CODE TESTS RESULT OUT OF RANGE REFERENCE UNITS LAB L200.4200 Normal SEE PATH REV CRYSTALS/BF LAB L200.4225 Normal SYNOVIAL SOURCE/BF LAB L200.6020 Normal PATH Reviewed REV Result Comment: Negative for malignant cells and crystals Gab Butts M.D. 02/06/18 Pathologist comment added AMENDED REPORT 02/06/18 1029 PATH REV previously reported as: Will follow Performed By: #### L200.0400, L200.4175 #### [facility] [address] [place], [address] Observed: 01/25/2018 Status: P Source: [place] CULTURE, BODY FLUID 9:48 AM [facility] REPOSITORY List Antibiotics Last 48 Hours? UNK List Antibiotics to be Started? UNK Comments: RT KNEE Gram Stain Centrifuged Specimen? Culture performed on centrifuged specimen Gram Stain Very Rare Red Blood Cells No White Blood Cells No organisms seen Body Fluid Cult Culture Exhibits No Growth. Report will be updated if culture becomes positive. Culture will be held 14 days. Cult, Anaerobic No growth in 5 days. Performed By: #### M100.1300 #### [facility] [address] [place], [address] PROGRESS Observed: 01/23/2018 Status: COMPLETED Source: KATY 9:09 AM CLINIC OTHER CAMPUS REPOSITORY HNO ID: [id number] Author: Estrellita Soto Service: (none) Author Type: Physician Type: Progress Notes Filed: 01/23/2018 11:08 PM Note Text: PRIMARY CARE PHYSICIAN: Corin Hernandez MD ([facility]) [address] [facility] [address] [place] [address] Patient Care Team: Corin Hernandez as PCP - General (Family Practice) Bunny Verdin as Specialty Validation Manager (Cardiology) Shu Gotti as Specialty Validation Manager (Endocrinology) Estrellita Tony V as Specialty Validation Manager (Internal Medicine) Marj Marcial as Specialty Validation Manager (Family Practice) Jayy Cancino as Specialty Validation Manager (Urology) Estrellita Soto as Specialty Validation Manager (Cardiology) CHIEF COMPLAINT: Follow up for arrhythmia and ICD HISTORY OF PRESENT ILLNESS: Mr. Mayes is a 77 year old male who presents today for a cardiovascular medicine follow-up visit. He experienced ilg-oa-vaifcnbl cardiac arrest in 06/2015. An ICD was implanted 07/2015 consisting of a single-chamber transvenous ICD system via the left chest. He developed Enterococcus faecalis sepsis in 09/2015, and this was recurrent despite antibiotic treatment. The ICD system was extracted (removed) 10/2015. A subcutaneous ICD was implanted 01/2016. Mr. Mayes underwent CABG 04/2017. He had postop atrial arrhythmias including atrial flutter, and underwent electrical cardioversion. Amiodarone was transiently increased to 400 mg twice daily and then back to 200 mg daily on hospital discharge. Mr. Mayes states he has been doing okay. He states he was told he had a shock from the ICD at some point but he was never aware of it. He has not had any problems with the ICD implant site at the left side of the chest region. He denies chest pain, shortness of breath, orthopnea, palpitations, PND, lightheadedness or syncope. He states he was taken off of a statin medication recently due to increase in the LFTs. PAST MEDICAL HISTORY Diagnosis Date - Anoxic encephalopathy ([facility]) resolving - Bacteremia 10/2015 Enterococcus faecalis; recurrent despite antibiotic therapy 10/2015 - CAD (coronary artery disease) - Cardiac arrest ([facility]) 07/23/2015: VF documented by EMS upon arrival, defibrillated with 200 Joules to achieve ROSC within 9 minutes of EMS being called - Cardiomyopathy ([facility]) LVEF 35% by echo 11/03/2015 - Chronic low back pain - Chronic systolic heart failure ([facility]) - Complete left bundle branch block (LBBB) - COPD (chronic obstructive pulmonary disease) ([facility]) - Coronary arteriosclerosis - Essential hypertension - GERD (gastroesophageal reflux disease) - History of coronary artery bypass graft x 2 04/27/2017 - Hypothyroidism - Implanted cardiac defibrillator infection (HCC) 10/2015 Enterococcus faecalis; transvenous ICD system removed and later a subcutaneous ICD implanted - Ischemic cardiomyopathy - rn long term care current use of amiodarone - Malignant tumor of prostate ([facility]) - JOYCE (obstructive sleep apnea) prescribed C-PAP - Persistent atrial fibrillation ([facility]) - Pneumonia d/t aspiration - Presence of implantable cardioverter-defibrillator (ICD) single-chamber ICD (BSCI) 07/30/2015; indication: secondary prevention after SCD; system removed 11/05/2015 due to 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 Soto - CABG (2) VEIN GRAFTS AND ARTERIAL GRAFT(S 04/27/2017 - CARDIAC CATH 07/26/2015 - CARDIOVERSION, ELECTIVE, ELECTRICAL 05/11/2017 [facility]: [facility] - DEFIBRILLATOR SURGERY Left 11/05/2015 complete removal of single-chamber ICD system (ICD PG and RV lead); indication: recurrent bacteremia with evidence for endocarditis; [facility] Dr. Soto - ECHOCARDIOGRAM 11/03/2015 LVEF 35%; moderately severe MR; moderately severe TR - HAND SURGERY HX Left amputation left hand - PROSTATE SURGERY HX - SUB-Q ICD IMPLANT TIER 1 Left 01/31/2016 reimplant of ICD after transvenous system extraction for infection 10/2015; subcutaneous ICD (Adayana); [facility] Dr. Soto - RANDALL 05/11/2017 [facility]: [facility] - UPPER ARM/ELBOW SURGERY UNLISTED Left arm fracture SOCIAL HISTORY Social History Substance Use Topics - Smoking status: Former Smoker Packs/day: 1.00 Years: 23.00 Types: Cigarettes Quit date: 10/10/1970 - Smokeless tobacco: Never Used Comment: quit 40 years ago - Alcohol use No FAMILY HISTORY Problem Relation Age of Onset - None Mother - gangreen in the gallbladder [OTHER] Father ALLERGIES: ALLERGIES Allergen Reactions - Dust Mites Other: See Comments - Enalapril Cough - Latex Other: See Comments Pulls the skin off of him. - Molds Extract Other: See Comments MEDICATIONS: insulin glargine,hum.rec.anlog (LANTUS SOLOSTAR U-100 INSULIN SUBCUTANEOUS) Inject 12 Units subcutaneously daily at bedtime. insulin aspart U-100 (NOVOLOG FLEXPEN U-100 INSULIN) 100 unit/mL inpn Inject subcutaneously three times daily with meals. Sliding scale. levothyroxine (SYNTHROID) 100 mcg tablet Take 100 mcg by mouth daily before breakfast. Takes 200 mg on Sundays losartan (COZAAR) 100 mg tablet Take 50 mg by mouth once daily. amLODIPine (NORVASC) 10 mg tablet Take 10 mg by mouth once daily. OMEGA-3 FATTY ACIDS/FISH OIL (OMEGA 3 FISH OIL ORAL) Take by mouth. fluticasone (FLONASE) 50 mcg/actuation nasal spray Use 1 [place] in each nostril once daily. amiodarone (PACERONE) 200 mg tablet Take 1 tablet by mouth once daily. furosemide (LASIX) 40 mg tablet Take 40 mg by mouth once daily. Ascorbic Acid (VITAMIN C) 1,000 mg tablet Take 1,000 mg by mouth once daily. CALCIUM CARBONATE/VITAMIN D3 (VITAMIN D-3 ORAL) Take by mouth. carvedilol (COREG) 25 mg tablet Take 25 mg by mouth twice daily with meals. apixaban (ELIQUIS) 5 mg tab tab(s) Take 5 mg by mouth twice daily. ferrous sulfate 325 mg (65 mg iron) tablet Take 325 mg by mouth twice daily. MAGNESIUM ORAL Take 400 mg by mouth twice daily. fluticasone-salmeterol (ADVAIR DISKUS) 250-50 mcg/dose dsdv Inhale 1 Puff as instructed once daily. omeprazole (PRILOSEC) 20 mg capsule Take 20 mg by mouth once daily. CPAP Use as directed multivitamin (MULTIPLE VITAMINS) ORAL tablet Take 1 tablet by mouth once daily. tiotropium (SPIRIVA WITH HANDIHALER) 18 mcg INHALATION inhalation capsule inhale once daily insulin lispro (HUMALOG) 100 unit/mL injection Inject subcutaneously three times daily before meals. Sliding scale INSULIN DETEMIR (LEVEMIR SUBCUTANEOUS) Inject 12 Units subcutaneously daily at bedtime. FLAXSEED OIL (OMEGA 3 ORAL) Take 1,000 mg by mouth once daily. levothyroxine (SYNTHROID) 50 mcg tablet Take 50 mcg by mouth once daily. atorvastatin (LIPITOR) 40 mg tablet Take 40 mg by mouth daily at bedtime. LACTOBACILLUS ACIDOPHILUS ORAL Take by mouth. PHYSICAL EXAMINATION: BP 122/56 Pulse 56 Resp 16 Ht 6' 2 (1.88m) Wt 221 lb (100.2kg) SpO2 98% BMI 28.36 kg/(m2). General: Well appearing, in no acute distress, speaking in complete sentences. Skin: No clubbing, no cyanosis. Eyes: Extra ocular movements intact, Non-icteric sclerae Neck: no jugular venous distention, Lungs: Clear to auscultation bilaterally, no wheezing or rhonchi. Heart: Regular rhythm, S1, S2 normal, no loud murmurs, subcutaneous ICD site left axillary region intact Extremities: mild pitting edema of lower legs and ankles bilaterally Neuro: Oriented to person, place and time, alert, cooperative, gait coordinated. CARDIOVASCULAR MEDICINE TESTING: Electrocardiogram: sinus rhythm 60 bpm; first-degree AV block (IA 278 ms); LBBB or IVCD (QRS 164 ms); inferior infarct pattern Device Check: subcutaneous ICD is followed in [place] by his substance abuse counselor I have personally reviewed the Electrocardiogram. I spent 30 minutes in the visit, with more than 50% of the total aifi-tt-jmoj time of the visit in counseling / coordination of care. ASSESSMENT/PLAN: 1. Ischemic cardiomyopathy - ICD9: 414.8, ICD10: I25.5 (primary diagnosis) 2. Ventricular fibrillation (HCC) - ICD9: 427.41, ICD10: I49.01 3. Cardiac arrest (HCC) - ICD9: 427.5, ICD10: I46.9 4. Presence of implantable cardioverter-defibrillator (ICD) - ICD9: V45.02, ICD10: Z95.810 5. Coronary artery disease involving [place] coronary artery of [place] heart without angina pectoris - ICD9: 414.01, ICD10: I25.10 6. History of coronary artery bypass graft x 2 - ICD9: V45.81, ICD10: Z95.1 7. Chronic systolic heart failure (HCC) - ICD9: 428.22, ICD10: I50.22 8. Complete left bundle branch block (LBBB) - ICD9: 426.3, ICD10: I44.7 9. JOYCE (obstructive sleep apnea) - ICD9: 327.23, ICD10: G47.33 10. Persistent atrial fibrillation (HCC) - ICD9: 427.31, ICD10: I48.1 11. rn long term care current use of amiodarone - ICD9: V58.69, ICD10: Z79.899 IMPRESSION: Mr. Mayes is doing reasonably well from a heart rhythm and ICD standpoint. The ICD is showing normal function and the implant site looks fine by examination today. He is being treated with amiodarone for recurrent atrial arrhythmias including postoperative atrial fibrillation or flutter. However, from my review of the medical records it appears that the amiodarone was initiated in about February 2017, probably for the ventricular arrhythmia(s) with ICD shock that he experienced. This was prior to his coronary revascularization (CABG) so might have been driven by ischemia. The atrial fibrillation/flutter were postoperative and might not require ongoing amiodarone therapy. So in light of the increase in LFTs that his reports resulted in discontinuation of the statin medication, perhaps also the amiodarone should be discontinued. I am not really certain that it is necessary, unless he is having more arrhythmias documented by [place] [facility] or by other monitoring locally. PLAN AND RECOMMENDATIONS: Continue with current plan of care from EP standpoint. Consider discontinuing amiodarone as it might no longer be necessary for control of atrial and/or ventricular arrhythmias. I will leave this decision to his local substance abuse counselor, Dr. Verdin. Return in about 1 year (around 01/23/2019) for appt with Estrella Jim APN, with EKG. Estrellita Soto MD 01/23/2018 CNOV Observed: 01/23/2018 Status: COMPLETED Source: KATY 8:30 AM CLINIC OTHER CAMPUS REPOSITORY Office Visit (AGCARDPHRA) RACHNA MAYES ([id number]) 1940 M [facility] Date Time Provider Department 01/23/18 8:30 AM ESTRELLITA SOTO During your visit today, we recorded the following information about you: Pulse Respiration Blood pressure Weight 56/minute 16/minute 122/56 100.2 kg Height 1.88 m Delfina Johnson CMA 01/23/2018 8:48 AM Signed Patient denies any cardiac complaints today. MAURICIO Neves MD 01/23/2018 11:08 PM Signed PRIMARY CARE PHYSICIAN: Corin Hernandez MD ([facility]) [address] [place] [address] Patient Care Team: Corin Hernandez as PCP - General (Family Practice) Bunny Verdin as Specialty Validation Manager (Cardiology) Shu Gotti as Specialty Validation Manager (Endocrinology) Estrellita Tony V as Specialty Validation Manager (Internal Medicine) Marj Marcial as Specialty Validation Manager (Family Practice) Jayy Cancino as Specialty Validation Manager (Urology) Estrellita Soto as Specialty Validation Manager (Cardiology) CHIEF COMPLAINT: Follow up for arrhythmia and ICD HISTORY OF PRESENT ILLNESS: Mr. Mayes is a 77 year old male who presents today for a cardiovascular medicine follow-up visit. He experienced hbh-qu-fybnwhvv cardiac arrest in 06/2015. An ICD was implanted 07/2015 consisting of a single-chamber transvenous ICD system via the left chest. He developed Enterococcus faecalis sepsis in 09/2015, and this was recurrent despite antibiotic treatment. The ICD system was extracted (removed) 10/2015. A subcutaneous ICD was implanted 01/2016. Mr. Mayes underwent CABG 04/2017. He had postop atrial arrhythmias including atrial flutter, and underwent electrical cardioversion. Amiodarone was transiently increased to 400 mg twice daily and then back to 200 mg daily on hospital discharge. Mr. Mayes states he has been doing okay. He states he was told he had a shock from the ICD at some point but he was never aware of it. He has not had any problems with the ICD implant site at the left side of the chest region. He denies chest pain, shortness of breath, orthopnea, palpitations, PND, lightheadedness or syncope. He states he was taken off of a statin medication recently due to increase in the LFTs. PAST MEDICAL HISTORY Diagnosis Date - Anoxic encephalopathy (HCC) resolving - Bacteremia 10/2015 Enterococcus faecalis; recurrent despite antibiotic therapy 10/2015 - CAD (coronary artery disease) - Cardiac arrest ([facility]) 07/23/2015: VF documented by EMS upon arrival, defibrillated with 200 Joules to achieve ROSC within 9 minutes of EMS being called - Cardiomyopathy ([facility]) LVEF 35% by echo 11/03/2015 - Chronic low back pain - Chronic systolic heart failure (HCC) - Complete left bundle branch block (LBBB) - COPD (chronic obstructive pulmonary disease) ([facility]) - Coronary arteriosclerosis - Essential hypertension - GERD (gastroesophageal reflux disease) - History of coronary artery bypass graft x 2 04/27/2017 - Hypothyroidism - Implanted cardiac defibrillator infection (HCC) 10/2015 Enterococcus faecalis; transvenous ICD system removed and later a subcutaneous ICD implanted - Ischemic cardiomyopathy - retirement current use of amiodarone - Malignant tumor of prostate (HCC) - JOYCE (obstructive sleep apnea) prescribed C-PAP - Persistent atrial fibrillation (HCC) - Pneumonia d/t aspiration - Presence of implantable cardioverter-defibrillator (ICD) single-chamber ICD (BSCI) 07/30/2015; indication: secondary prevention after SCD; system removed 11/05/2015 due to 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 Soto - CABG (2) VEIN GRAFTS AND ARTERIAL GRAFT(S 04/27/2017 - CARDIAC CATH 07/26/2015 - CARDIOVERSION, ELECTIVE, ELECTRICAL 05/11/2017 [facility]: [facility] - DEFIBRILLATOR SURGERY Left 11/05/2015 complete removal of single-chamber ICD system (ICD PG and RV lead); indication: recurrent bacteremia with evidence for endocarditis; [facility] Dr. Soto - ECHOCARDIOGRAM 11/03/2015 LVEF 35%; moderately severe MR; moderately severe TR - HAND SURGERY HX Left amputation left hand - PROSTATE SURGERY HX - SUB-Q ICD IMPLANT TIER 1 Left 01/31/2016 reimplant of ICD after transvenous system extraction for infection 10/2015; subcutaneous ICD ([employer]); [facility] Dr. Soto - RANDALL 05/11/2017 [facility]: [facility] - UPPER ARM/ELBOW SURGERY UNLISTED Left arm fracture SOCIAL HISTORY Social History Substance Use Topics - Smoking status: Former Smoker Packs/day: 1.00 Years: 23.00 Types: Cigarettes Quit date: 10/10/1970 - Smokeless tobacco: Never Used Comment: quit 40 years ago - Alcohol use No FAMILY HISTORY Problem Relation Age of Onset - None Mother - gangreen in the gallbladder [OTHER] Father ALLERGIES: ALLERGIES Allergen Reactions - Dust Mites Other: See Comments - Enalapril Cough - Latex Other: See Comments Pulls the skin off of him. - Molds Extract Other: See Comments MEDICATIONS: insulin glargine,hum.rec.anlog (LANTUS SOLOSTAR U-100 INSULIN SUBCUTANEOUS) Inject 12 Units subcutaneously daily at bedtime. insulin aspart U-100 (NOVOLOG FLEXPEN U-100 INSULIN) 100 unit/mL inpn Inject subcutaneously three times daily with meals. Sliding scale. levothyroxine (SYNTHROID) 100 mcg tablet Take 100 mcg by mouth daily before breakfast. Takes 200 mg on Sundays losartan (COZAAR) 100 mg tablet Take 50 mg by mouth once daily. amLODIPine (NORVASC) 10 mg tablet Take 10 mg by mouth once daily. OMEGA-3 FATTY ACIDS/FISH OIL (OMEGA 3 FISH OIL ORAL) Take by mouth. fluticasone (FLONASE) 50 mcg/actuation nasal spray Use 1 [place] in each nostril once daily. amiodarone (PACERONE) 200 mg tablet Take 1 tablet by mouth once daily. furosemide (LASIX) 40 mg tablet Take 40 mg by mouth once daily. Ascorbic Acid (VITAMIN C) 1,000 mg tablet Take 1,000 mg by mouth once daily. CALCIUM CARBONATE/VITAMIN D3 (VITAMIN D-3 ORAL) Take by mouth. carvedilol (COREG) 25 mg tablet Take 25 mg by mouth twice daily with meals. apixaban (ELIQUIS) 5 mg tab tab(s) Take 5 mg by mouth twice daily. ferrous sulfate 325 mg (65 mg iron) tablet Take 325 mg by mouth twice daily. MAGNESIUM ORAL Take 400 mg by mouth twice daily. fluticasone-salmeterol (ADVAIR DISKUS) 250-50 mcg/dose dsdv Inhale 1 Puff as instructed once daily. omeprazole (PRILOSEC) 20 mg capsule Take 20 mg by mouth once daily. CPAP Use as directed multivitamin (MULTIPLE VITAMINS) ORAL tablet Take 1 tablet by mouth once daily. tiotropium (SPIRIVA WITH HANDIHALER) 18 mcg INHALATION inhalation capsule inhale once daily insulin lispro (HUMALOG) 100 unit/mL injection Inject subcutaneously three times daily before meals. Sliding scale INSULIN DETEMIR (LEVEMIR SUBCUTANEOUS) Inject 12 Units subcutaneously daily at bedtime. FLAXSEED OIL (OMEGA 3 ORAL) Take 1,000 mg by mouth once daily. levothyroxine (SYNTHROID) 50 mcg tablet Take 50 mcg by mouth once daily. atorvastatin (LIPITOR) 40 mg tablet Take 40 mg by mouth daily at bedtime. LACTOBACILLUS ACIDOPHILUS ORAL Take by mouth. PHYSICAL EXAMINATION: BP 122/56 Pulse 56 Resp 16 Ht 6' 2 (1.88m) Wt 221 lb (100.2kg) SpO2 98% BMI 28.36 kg/(m2). General: Well appearing, in no acute distress, speaking in complete sentences. Skin: No clubbing, no cyanosis. Eyes: Extra ocular movements intact, Non-icteric sclerae Neck: no jugular venous distention, Lungs: Clear to auscultation bilaterally, no wheezing or rhonchi. Heart: Regular rhythm, S1, S2 normal, no loud murmurs, subcutaneous ICD site left axillary region intact Extremities: mild pitting edema of lower legs and ankles bilaterally Neuro: Oriented to person, place and time, alert, cooperative, gait coordinated. CARDIOVASCULAR MEDICINE TESTING: Electrocardiogram: sinus rhythm 60 bpm; first-degree AV block (IA 278 ms); LBBB or IVCD (QRS 164 ms); inferior infarct pattern Device Check: subcutaneous ICD is followed in [place] by his substance abuse counselor I have personally reviewed the Electrocardiogram. I spent 30 minutes in the visit, with more than 50% of the total dnps-xo-lvop time of the visit in counseling / coordination of care. ASSESSMENT/PLAN: 1. Ischemic cardiomyopathy - ICD9: 414.8, ICD10: I25.5 (primary diagnosis) 2. Ventricular fibrillation (HCC) - ICD9: 427.41, ICD10: I49.01 3. Cardiac arrest (HCC) - ICD9: 427.5, ICD10: I46.9 4. Presence of implantable cardioverter-defibrillator (ICD) - ICD9: V45.02, ICD10: Z95.810 5. Coronary artery disease involving [place] coronary artery of [place] heart without angina pectoris - ICD9: 414.01, ICD10: I25.10 6. History of coronary artery bypass graft x 2 - ICD9: V45.81, ICD10: Z95.1 7. Chronic systolic heart failure (HCC) - ICD9: 428.22, ICD10: I50.22 8. Complete left bundle branch block (LBBB) - ICD9: 426.3, ICD10: I44.7 9. JOYCE (obstructive sleep apnea) - ICD9: 327.23, ICD10: G47.33 10. Persistent atrial fibrillation (HCC) - ICD9: 427.31, ICD10: I48.1 11. retirement current use of amiodarone - ICD9: V58.69, ICD10: Z79.899 IMPRESSION: Mr. Mayes is doing reasonably well from a heart rhythm and ICD standpoint. The ICD is showing normal function and the implant site looks fine by examination today. He is being treated with amiodarone for recurrent atrial arrhythmias including postoperative atrial fibrillation or flutter. However, from my review of the medical records it appears that the amiodarone was initiated in about February 2017, probably for the ventricular arrhythmia(s) with ICD shock that he experienced. This was prior to his coronary revascularization (CABG) so might have been driven by ischemia. The atrial fibrillation/flutter were postoperative and might not require ongoing amiodarone therapy. So in light of the increase in LFTs that his reports resulted in discontinuation of the statin medication, perhaps also the amiodarone should be discontinued. I am not really certain that it is necessary, unless he is having more arrhythmias documented by [facility] or by other monitoring locally. PLAN AND RECOMMENDATIONS: Continue with current plan of care from EP standpoint. Consider discontinuing amiodarone as it might no longer be necessary for control of atrial and/or ventricular arrhythmias. I will leave this decision to his local substance abuse counselor, Dr. Verdin. Return in about 1 year (around 01/23/2019) for appt with Estrella Jim APN, with EKG. Estrellita Soto MD 01/23/2018 Referring Provider: BUNNY VERDIN [[id number]] Allergies As of Date: 01/23/2018 Noted Allergy Reaction DUST MITES 02/10/2010 14 - Other: See Comments ENALAPRIL 04/13/2015 3 - Cough LATEX 01/23/2018 14 - Other: See Comments Comments: Pulls the skin off of him. MOLDS EXTRACT 02/10/2010 14 - Other: See Comments Date Reviewed: 01/23/2018 Reviewed by: Estrellita Soto - Fully Assessed Reason for Visit: CARD Follow Up 6 Month [1231] Primary Visit Diagnosis:Ischemic cardiomyopathy [I25.5] Other Visit Diagnoses:Ventricular fibrillation (HCC) [I49.01] Cardiac arrest (HCC) [I46.9] Presence of implantable cardioverter-defibrillator (ICD) [Z95.810] Coronary artery disease involving [place] coronary artery of [place] heart without angina pectoris [I25.10] History of coronary artery bypass graft x 2 [Z95.1] Chronic systolic heart failure (HCC) [I50.22] Complete left bundle branch block (LBBB) [I44.7] JOYCE (obstructive sleep apnea) [G47.33] Persistent atrial fibrillation (HCC) [I48.1] retirement current use of amiodarone [Z79.899] Order(s):EKG WITH INTERPRETATION [[id number]] Order #: [id number]: 1 Prescriptions as of 01/23/2018 Sig: LANTUS SOLOSTAR U-100 INSULIN* Inject 12 Units subcutaneousl* INSULIN ASPART U-100 100 UNI* Inject subcutaneously three t* LEVOTHYROXINE 100 MCG TABLET Take 100 mcg by mouth daily b* LOSARTAN 100 MG TABLET Take 50 mg by mouth once yessi* AMLODIPINE 10 MG TABLET Take 10 mg by mouth once yessi* OMEGA 3 FISH OIL ORAL Take by mouth. FLUTICASONE 50 MCG/ACTUATION * Use 1 [place] in each nostril o* AMIODARONE 200 MG TABLET Take 1 tablet by mouth once d* FUROSEMIDE 40 MG TABLET Take 40 mg by mouth once yessi* ASCORBIC ACID (VITAMIN C) 1,0* Take 1,000 mg by mouth once d* VITAMIN D-3 ORAL Take by mouth. CARVEDILOL 25 MG TABLET Take 25 mg by mouth twice tri* APIXABAN 5 MG TABLET Take 5 mg by mouth twice yessi* FERROUS SULFATE 325 MG (65 MG* Take 325 mg by mouth twice da* MAGNESIUM ORAL Take 400 mg by mouth twice da* FLUTICASONE 250 MCG-SALMETERO* Inhale 1 Puff as instructed o* * OMEPRAZOLE 20 MG CAPSULE,BRITNEY* Take 20 mg by mouth once yessi* CPAP Use as directed * MULTIVITAMIN TABLET Take 1 tablet by mouth once d* * TIOTROPIUM BROMIDE 18 MCG CAP* inhale once daily INSULIN LISPRO (U-100) 100 UN* Inject subcutaneously three * LEVEMIR SUBCUTANEOUS Inject 12 Units subcutaneousl* OMEGA 3 ORAL Take 1,000 mg by mouth once d* LEVOTHYROXINE 50 MCG TABLET Take 50 mcg by mouth once tri* ATORVASTATIN 40 MG TABLET Take 40 mg by mouth daily at * LACTOBACILLUS ACIDOPHILUS ORAL Take by mouth. Medication notes this encounter LEVOTHYROXINE 50 MCG TABLET >> Estrellita Soto MD 01/23/2018 9:07 AM >> ESTRELLITA SOOT MD SunJanuary 23, 2018 9:07 AM ATORVASTATIN 40 MG TABLET >> Estrellita Soto MD 01/23/2018 9:07 AM >> ESTRELLITA SOTO MD SunJanuary 23, 2018 9:07 AM Problem List As Of Date 01/23/2018 Noted Resolved MALIGN NEOPL PROSTATE [C61] INVALID FOR* Proteinuria [R80.9] INVALID FOR* Calculus of kidney [N20.0] INVALID FOR* Essential hypertension [I10] INVALID FOR* Hyperlipidemia [E78.5] INVALID FOR* Gastro-esophageal reflux disease without esopha*INVALID FOR* NIDDM (non-insulin dependent diabetes mellitus) INVALID FOR* CHF (congestive heart failure) [I50.9] INVALID FOR* Rectal nodule [K62.89] INVALID FOR* Bladder stone [N21.0] INVALID FOR* Diabetes type 2, controlled [E11.9] INVALID FOR* Hypothyroidism [E03.9] INVALID FOR* Acquired cyst of kidney [N28.1] INVALID FOR* BPH without obstruction/lower urinary tract sym*INVALID FOR* Cardiac arrest (HCC) [I46.9] INVALID FOR*05/31/2016 ICD (implantable cardioverter-defibrillator) in*INVALID FOR* History of coronary artery bypass graft x 2 [Z9*INVALID FOR* CAD (coronary artery disease) [I25.10] Ischemic cardiomyopathy [I25.5] Ventricular fibrillation (HCC) [I49.01] More... Cardiac arrest (HCC) [I46.9] More... Presence of implantable cardioverter-defibrilla* More... Cardiomyopathy (HCC) [I42.9] More... 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] INVALID FOR* Anemia of renal disease [D63.1] INVALID FOR* Chronic renal insufficiency, stage III (moderat*INVALID FOR* Streptococcus infection, group D enterococcus [*INVALID FOR* Family history of cerebrovascular accident (CVA*INVALID FOR* History of bacterial endocarditis [Z86.79] INVALID FOR* History of malignant neoplasm of prostate [Z85.*INVALID FOR* retirement (current) use of anticoagulants [Z79.*INVALID FOR* rn long term care (current) use of antithrombotics/anti*INVALID FOR* retirement (current) use of oral hypoglycemic dr*INVALID FOR* rn long term care current use of insulin (HCC) [Z79.4] INVALID FOR* Chronic low back pain [M54.5, G89.29] INVALID FOR* rn long term care current use of amiodarone [Z79.899] Visit Notes: >> Delfina Johnson SunJanuary 23, 2018 8:48 AM Status: Signed Patient denies any cardiac complaints today. Delfina Johnson CMA Disposition: Return in about 1 year (around 01/23/2019) for appt with Estrella Jim APN, with EKG. Follow-up and Disposition History Recorded Letter Text Encounter Status:Closed by ESTRELLITA SOTO MD on 01/23/18 EMERGENCY DEPARTMENT Observed: 01/21/2018 Status: F Source: [place] SUMMARY 4:22 PM [facility] REPOSITORY [facility] Medical Records Department [address] [place] [address] Emergency Department Summary 01/21/18 0718 MR#: [id number] Acct: [id number] Name: SERENAMAVERICKRACHNA Rep #: [id number] : 1940 77 From: Mariama Hernandez MD PCP: Corin Hernandez MD Status: DEP ER - ER Visit Summary Date of Service: 01/21/18 Chief Complaint: Right knee pain History of Present Illness: The patient is a 77 M who presents for 1-1/2 weeks of worsening right knee pain. Patient has no history of trauma. Patient states he has been having pain, worse with ambulation. Mainly noted on the lateral knee. He had been on Eliquis until 1 week ago when his doctor took him off of it because of mild elevation of transaminases. Patient is not supposed to be restarted until January 28. He has no history of blood clots. No shortness of breath, fever, chest pain or other complaints other than the knee pain. He was going to follow-up with his orthopedic doctor tomorrow, but was unable to bear weight this morning upon awakening. He is able to ambulate using a cane. Patient tried wearing a commercial brace. Has not taken any pain medicine. Physical Examination: Vital signs: afebrile, hemodynamically stable, no hypoxia on room air General: well nourished, well developed, in no distress Skin: warm, dry, no rash, no pallor Cardiovascular: regular rate and rhythm without murmurs, no peripheral edema, 2+ pulses all distal extremities Respiratory: No increased work of breathing, lungs are clear to auscultation bilaterally, no rales, rhonchi or wheezing MSK: Moves all extremities, finger amputations bilateral hands, left distal upper extremity in a brace; right knee shows no deformities or swelling. Mild tenderness to palpation along the lateral and medial joint lines. No deformities or crepitus. No posterior fullness or tenderness. No varus or valgus laxity. Negative anterior and posterior drawer sign. Symmetric appearance compared to left knee. Skin markings from pressure of knee brace seams. Neuro: Awake and alert, oriented 4. sensation and motor function intact and symmetric Test Results: Abnormal Lab Results Sodium 141 Potassium 4.1 Clinical Impression(s) from Imaging Studies Knee X-Ray 01/21/18 06:46 IMPRESSION: Mild DJD medial, lateral and patellofemoral compartments. No effusion. No fracture. Meniscal calcifications may reflect the presence of CPPD/pseudogout. Electronically Signed: Gómez Pederson, at 7:14 EDT Tel , Service support , Emergency Department Course and Treatment: Patient's knee exam is nonspecific, and he has no calf swelling or tenderness. Concern for a DVT is low, however patient has been abruptly off of his Eliquis for 1 week now, and and patient are very concerned for blood clot. Given Tylenol for pain. X-ray of the knee showed findings consistent with possible pseudogout. No fractures or effusions noted. Given that patient is off of his blood thinner and the family is concerned for DVT, ultrasound was performed. Negative for DVT. Patient will follow up with his orthopedic doctor tomorrow as prior planned. Labs performed showing very mild transaminitis and chronic renal insufficiency. He was discussed with cardiology regarding the discontinuation of patient's Eliquis by the [facility], and Dr. Mota could not make a judgment on this medication discontinuation without knowing the [facility]. I agree with this, and patient was advised to contact his primary care doctor at the [facility] as soon as possible in the morning to discuss further with him being off of his medication. No further blood thinners were started given that we do not have a clear picture of why he was taken off his Eliquis. Return if any further concerns and will continue to use rest, ice, elevation in the knee brace for comfort. He will use his cane for ambulation until he can follow-up with orthopedics tomorrow. Treatment Plan: [] Disposition: [] Impression: Left knee pain This note was generated with [employer] dictation software. It may contain incorrect words, spelling, and punctuation that were not noted in review of the chart prior to signing ED Disposition - Plan for ED Patient: Disposition: Home or Assisted Living Chief Complaint: Lower Extremity Injury Instructions: ED Knee Pain [facility] Referrals: Corin Hernandez MD [Primary Care Provider] - Additional Instructions: Please follow-up with your orthopedic doctor tomorrow. Your ultrasound showed no blood clot in your right leg. Please call your doctor that took you off of your Eliquis first thing tomorrow to discuss whether they can talk to your substance abuse counselor about the medication or an alternative anticoagulant. Follow-up as soon as possible for further discussion of your need for a blood thinner. If you have any worsening of your condition or any new concerning symptoms, please return immediately to the emergency department for another evaluation. What to do if you have Problems For any increased pain, shortness of breath, bleeding, nausea or vomiting, chest pain, or any unexpected problems, contact your Primary Care Provider. Call [facility] ([phone]) or report to the closest Emergency Room. Call 911 if necessary. 01/21/18 2403 <Electronically signed by Mariama Hernandez MD> Date Mariama Hess Signature (If Indicated): Date CC: Corin Hernandez MD DISCHARGE INSTRUCTION Observed: 01/21/2018 Status: F Source: [place] 3:49 PM [facility] Medical Records Department [address] [place] [address] Discharge Instruction 01/21/18 1134 MR#: [id number] Acct: [id number] Name: RACHNA MAYES Rep #: [id number] : 1940 77 From: Mariama Hernandez MD PCP: Corin Hernandez MD Status: DEP ER ED Disposition - Plan for ED Patient: Disposition: Home or Assisted Living Chief Complaint: Lower Extremity Injury Instructions: ED Knee Pain UKO Referrals: Corin Hernandez MD [Primary Care Provider] - Additional Instructions: Please follow-up with your orthopedic doctor tomorrow. Your ultrasound showed no blood clot in your right leg. Please call your doctor that took you off of your Eliquis first thing tomorrow to discuss whether they can talk to your substance abuse counselor about the medication or an alternative anticoagulant. Follow-up as soon as possible for further discussion of your need for a blood thinner. If you have any worsening of your condition or any new concerning symptoms, please return immediately to the emergency department for another evaluation. What to do if you have Problems For any increased pain, shortness of breath, bleeding, nausea or vomiting, chest pain, or any unexpected problems, contact your Primary Care Provider. Call [facility] ([phone]) or report to the closest Emergency Room. Call 911 if necessary. 01/21/18 1549 <Electronically signed by Mariama Hernandez MD> Date Mariama David MD Cosigner Signature (If Indicated): Date CC: Corin Hernandez MD VENOUS DUPLEX LOWER Observed: 01/21/2018 Status: F Source: [place] EXTREMITY 1:15 PM [facility] Cardiovascular Services [address] [place] [address] Venous Duplex US, Unilateral 01/21/18 0925 MR#: [id number] Acct: [id number] Name: RACHNA MAYES Rep #: [id number] : 1940 77 From: Barry Rocha MD Attending Dr: Status: DEP ER Ordering Dr: Mariama Hernandez MD Date: 01/21/18 Location: ED Sex: M C Admitted: Reason For Study: LEG PAIN RIGHT GSV is normal. CFV is compressible, spontaneous, phasic, competent and demonstrates normal augmentation. FV is compressible, spontaneous, phasic, competent and demonstrates normal augmentation. POP V is compressible, spontaneous, phasic, competent and demonstrates normal augmentation. T/P Trunk is compressible. PTV is compressible. RT PerV is compressible. Procedure Exam performed portable in ED. A preliminary report was called and/or faxed to Dr. Hernandez. Interpretation Summary Deep veins of the right lower extremity are patent and compressible segmentally. There is no evidence of right lower extremity deep vein thrombosis. Valvular competence appears intact within the proximal deep venous system on the right . The right greater saphenous vein appears patent and compressible segmentally. Ordering Physician: Mariama Hernandez Referring Physician: Shu Gotti Performed By: Amelia, Rachel, RVT 01/21/18 1315 Date Barry Rocha MD CC: Corin Hernandez MD; Mariama Hernandez MD Date Dictated: 01/21/1825 Date Transcribed: 01/21/181314 Compression Molding Machine Operator: Signed COMPREHENSIVE METABOLIC Collected: 01/21/2018 Status: F Source: [facility] 7:40 AM [facility] REPOSITORY TYPE CODE TESTS RESULT OUT OF RANGE REFERENCE UNITS LAB L501.0100 74-106 mg/dL High GLU 149 Result Comment: Fasting Glucose result greater than or equal to 126 mg/dL suggests DIABETES MELLITUS per A.D.A. criteria. Please note revised GLUCOSE reference range effective 2017. LAB L501.1000 7-18 mg/dL High BUN 29 LAB L501.1100 0.70-1.30 mg/dL High CREAT,SERUM 1.79 Result Comment: The validity of the calculated GFR AND GFRAA in patients over 70 years has not been determined. Clinical correlation is essential. LAB L501.1110 >60 mL/min Low EST GFR 39 Result Comment: Non- GFR Calc LAB L501.1115 >60 mL/min Low EST GFR - AA 47 Result Comment: GFR Calc LAB L501.1255 ml/min Normal Estimated CRCL 36.73 LAB L501.1300 10-20 RATIO Normal BUN/CRE 16.2 LAB L501.1500 6.4-8. g/dL Low 2 T PROT 6.3 LAB L501.1800 3.2-5. g/dL Normal 0 ALB 3.4 LAB L501.1950 2.2-4. g/dL Normal 2 GLOB 2.9 LAB L501.2000 0.9-2. RATIO Normal 4 A/G 1.2 LAB L501.2200 8.5-10 mg/dL Normal .1 CA 8.9 LAB L501.4100 15-37 U/L High AST 45 LAB L501.4305 45-117 U/L Normal ALK P 78 LAB L501.4405 16-61 U/L High ALT 88 LAB L501.4600 0.20-1 mg/dL Normal .00 T BILI 0.40 LAB L501.5300 136-14 mmol/L Normal 5 NA 141 LAB L501.5600 3.5-5. mmol/L Normal 1 K 4.1 LAB L501.5900 98-107 mmol/L Normal CL 106 LAB L501.6100 21.0-3 mmol/L Normal 2.0 CO2 28.0 LAB L501.6200 5-15 Normal GAP 7 Performed By: #### L500.4050 #### [facility] [address] [facility] [place], [address] KNEE 4 OR MORE Observed: 01/21/2018 Status: F Source: [facility] 6:47 AM [facility] Imaging Services [address] [place] [address] Knee 4 or More Views MR#: [id number] Acct: [id number] Name: RACHNA MAYES Rep #: [id number] : 1940 M 77 From: Gómez Pederson MD PCP: Corin Hernandez MD Status: PRE ER Study: Knee 4 or More Views Date of Exam: 01/21/18 Exam# [id number] Ordering Dr: Mariama Hernandez MD STUDY: X-RAY - RIGHT KNEE REASON FOR EXAM: Male, 77 years old. Knee pain TECHNIQUE: 4 view(s) of the knee. COMPARISON: None. FINDINGS: Meniscal calcifications bilaterally. There may be partial extrusion of the meniscus medial compartment. Mild joint space narrowing medial compartment. Minimal marginal osteophytic lipping. Lateral compartment mild marginal osteophytic lipping. Patellofemoral compartment minimal marginal osteophytic lipping. No apparent suprapatellar knee joint effusion. Osseous structures intact, mildly osteopenic. Periarticular soft tissues unremarkable. RAD/Knee 4 or More Views IMPRESSION: Mild DJD medial, lateral and patellofemoral compartments. No effusion. No fracture. Meniscal calcifications may reflect the presence of CPPD/pseudogout. Electronically Signed: Gómez Pederson, at 7:14 EDT Tel , Service support , CC: Corin Hernandez MD; Mariama Hernandez MD Compression Molding Machine Operator: Signed COMPREHENSIVE METABOLIC Collected: 01/15/2018 Status: F Source: [place] 8:44 AM [facility] [place] REPOSITORY TYPE CODE TESTS RESULT OUT OF RANGE REFERENCE UNITS LAB L501.0100 74-106 mg/dL Normal GLU 82 Result Comment: Please note revised GLUCOSE reference range effective 2017. LAB L501.1000 7-18 mg/dL High BUN 28 LAB L501.1100 0.70-1.30 mg/dL High CREAT,SERUM 1.78 Result Comment: The validity of the calculated GFR AND GFRAA in patients over 70 years has not been determined. Clinical correlation is essential. LAB L501.1110 >60 mL/min Low EST GFR 39 Result Comment: Non- GFR Calc LAB L501.1115 >60 mL/min Low EST GFR - AA 48 Result Comment: GFR Calc LAB L501.1300 10-20 RATIO Normal BUN/CRE 15.7 LAB L501.1500 6.4-8.2 g/dL T Normal PROT 6.8 LAB L501.1800 3.2-5.0 g/dL Normal ALB 3.5 LAB L501.1950 2.2-4.2 g/dL Normal GLOB 3.3 LAB L501.2000 0.9-2.4 RATIO Normal A/G 1.1 LAB L501.2200 8.5-10.1 mg/dL CA Normal 8.9 LAB L501.4100 15-37 U/L High AST 66 LAB L501.4305 45-117 U/L Normal ALK P 80 LAB L501.4405 16-61 U/L High ALT 110 LAB L501.4600 0.20-1.00 mg/dL T Normal BILI 0.50 LAB L501.5300 136-145 mmol/L NA Normal 145 LAB L501.5600 3.5-5.1 mmol/L K Normal 4.0 LAB L501.5900 98-107 mmol/L CL Normal 106 LAB L501.6100 21.0-32.0 mmol/L Normal CO2 31.0 LAB L501.6200 5-15 Normal GAP 8 Performed By: #### L500.4050, L500.4100, L501.9520, L506.0400 #### [facility] [address] [place], [place], [id number] LIPID PROFILE Collected: 01/15/2018 Status: F Source: [place] 8:44 AM [facility] [place] REPOSITORY TYPE CODE TESTS RESULT OUT OF RANGE REFERENCE UNITS LAB L501.4900 200 mg/dL Normal CHOL 168 Result Comment: <200 mg/dL Desirable 200-240 mg/dL Borderline >240 mg/dL High Risk LAB L501.5000 mg/dL Normal TRIG 63 Result Comment: The drugs N-Acetylcysteine and Metamizole may falsely depress this assay. Serum Triglycerides Reference Interval Normal <150 mg/dL Borderline high 150 - 199 mg/dL High 200 - 499 mg/dL Very High > or = 500 mg/dL LAB L501.6400 mg/dL Normal HDL 75 Result Comment: The drugs N-Acetylcysteine and Metamizole may falsely depress this assay. Reference Range HDL <40 mg/dL Low HDL Cholesterol HDL >or= 60 mg/dL High HDL Cholesterol LAB L501.6500 0-130 mg/dL Normal LDL 80 LAB L501.6600 5-40 mg/dL Normal VLDL 13 Performed By: #### L500.4050, L500.4100, L501.9520, L506.0400 #### [facility] [address] [place], [place], [id number] THYROID STIM HORMONE Collected: 01/15/2018 Status: F Source: [place] (TSH) 8:44 AM [facility] [place] REPOSITORY TYPE CODE TESTS RESULT OUT OF RANGE REFERENCE UNITS LAB L501.9520 0.358-3.74 uIU/mL Normal TSH 3.18 Performed By: #### L500.4050, L500.4100, L501.9520, L506.0400 #### [facility] [address] [place], [place], [id number] T4 FREE DIRECT Collected: 01/15/2018 Status: F Source: [place] 8:44 AM [facility] REPOSITORY TYPE CODE TESTS RESULT OUT OF RANGE REFERENCE UNITS LAB L506.0400 0.76-1.46 ng/dL Normal T4 FREE 1.33 DIRECT Performed By: #### L500.4050, L500.4100, L501.9520, L506.0400 #### [facility] [address] [place], [address] HEMOGLOBIN A1C Collected: 01/15/2018 Status: F Source: [place] 8:44 AM [facility] REPOSITORY TYPE CODE TESTS RESULT OUT OF RANGE REFERENCE UNITS LAB L501.9985 4.2-6.3 % High HGB A1C 7.1 Performed By: #### L501.9985 #### [facility] [address] [place], [address] VITAMIN D,25 HYDROXY Collected: 01/15/2018 Status: F Source: [place] 8:44 AM [facility] REPOSITORY TYPE CODE TESTS RESULT OUT OF RANGE REFERENCE UNITS LAB L506.1000 29.95-100.01 ng/mL Normal Vitamin D 44.1 25-OH Result Comment: Vitamin D 25(OH) Status Range Deficiency <20 ng/mL (50nmol/L) Insuffciency 20 - 30 ng/mL (50 - 75 nmol/L) Sufficiency 30 - 100 ng/mL (75 - 250 nmol/L) Toxicity >100 ng/mL (>250 nmol/L) Performed By: #### L506.1000 #### [facility] [address] [place], [address] PACEMAKER CHECK Observed: 01/08/2018 Status: F Source: [place] 3:39 PM [facility] REPOSITORY [facility] [address] [place] [address] Pacemaker Check Date of Service: 01/07/181904 MR#: [id number] Acct: [id number] Name: RACHNA MAYES Rep #: [id number] : 1940 From: Glo Kowalski Age/Sex: 77/M [facility] Status: Signed Comments Summary Comments: Remote S-ICD Evaluation: See attached scanned sas clinical programmer report. Interrogation completed per request d/t pt feeling tired and weak. Interrogation shows untreated or treated episodes since 05/11/17. Battery life remaining to [place] 78%. Electrode impedance status ok. Pt's notified that no VT/VF was detected. Device Device Date Interviewed: 01/07/18 Follow-up Location: remote Interview Reason: scheduled follow up Site Director: Adayana Name: EmbleFitBionic S-ICD Model: A209 Serial #: [id number] Implant Date: 01/31/16 Year(s): 1 Implant Physician: Dr. Estrellita Soto/[facility] Patient Characteristics Ventricular Indication: Ventricular Fibrillation Patient Substrate: Ischemic cardiomyopathy, Nonischemic cardiomyopathy Ejection fraction %: 45 to 49 (11/02/2015) By: Echo Underlying rhythm: Sinus rhythm Pacemaker Dependent: No Device Characteristics Type: Implantable defibrillator Remote Follow-Up: Latitude Tachy Settings Tachy Therapy settings: Shock Zone: 250 bpm Conditional Shock Zone: 200 bpm Billing Codes ICD Device Billing: ICD Dev Interrogate (Rmt) Assessment AND Plan Problems 1. ICD (implantable cardioverter-defibrillator) in place Z95.810 2. 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 Atherosclerosis of [place] coronary artery of [place] heart without angina pectoris I25.10 FAY to LAD, reverse SVG to OM(FAY graft off the antunez of the SVG to the OM as a free graft); left atrial appendage clipped 04/27/[address] Knox 4. Left bundle branch block I44.7 5. Paroxysmal atrial fibrillation I48.0 6. Anemia D64.9 7. Syncope R55 01/08/18 1434 <Electronically signed by Glo Kowalski > Date Glo Kowalski 01/08/18 1539<Electronically signed by Bunny Verdin MD> Cosigner Signature: Date (if applicable) Bunny Verdin MD CC: PACEMAKER CHECK Observed: 01/01/2018 Status: F Source: [place] 4:04 PM [facility] REPOSITORY [facility] [address] [place] [address] Pacemaker Check Date of Service: 01/01/18 0848 MR#: [id number] Acct: [id number] Name: RACHNA MAYES Rep #: [id number] : 1940 From: Glo Kowalski Age/Sex: 77/M Location: [facility] [place] Status: Signed Comments Summary Comments: Remote S-ICD Evaluation: Remote interrogation shows no untreated or treated episodes since 05/11/17. NSR @ 63 bpm. Remaining battery life to [place] 78%. Electrode impedance ok. Pt notified remote transmission received and next f/u appt scheduled for in 3 mos. Device Device Date Interviewed: 10/25/17 Follow-up Location: remote Interview Reason: scheduled follow up Site Director: Adayana Name: [employer]. Ren[employer]leFitBionic S-ICD Model: A209 Serial #: [id number] Implant Date: 01/31/16 Year(s): 1 Implant Physician: Dr. Estrellita Soto/[facility] Patient Characteristics Ventricular Indication: Ventricular Fibrillation Patient Substrate: Ischemic cardiomyopathy, Nonischemic cardiomyopathy Ejection fraction %: 45 to 49 (11/02/2015) By: Echo Underlying rhythm: Sinus rhythm Pacemaker Dependent: No Device Characteristics Type: Implantable defibrillator Remote Follow-Up: Latitude Billing Codes ICD Device Billing: ICD Dev Interrogate (Rmt) Assessment AND Plan Problems 1. ICD (implantable cardioverter-defibrillator) in place Z95.810 2. Ventricular fibrillation I49.01 3. Syncope R55 4. 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 Left bundle branch block I44.7 6. 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 Cardiomyopathy in other diseases classified elsewhere I43 01/01/18 0902 <Electronically signed by Glo Kowalski > Date Glo Kowalski 01/01/18 1604<Electronically signed by Bunny Verdin MD> Cosigner Signature: Date (if applicable) Bunny Verdin MD CC: CBC W/DIFF, AUTOMATED Collected: 12/21/2017 Status: F Source: [place] 10:05 AM [facility] REPOSITORY TYPE CODE TESTS RESULT OUT OF RANGE REFERENCE UNITS LAB L100.1000 4.4-11.0 K/mm3 Normal WBC 6.5 LAB L100.1200 4.6-6.2 M/mm3 Low RBC 3.68 LAB L100.1300 13.0-16.5 g/dl Low HGB 11.6 LAB L100.1400 40-54 % Low HCT 36.1 LAB L100.1500 80-94 fL High MCV 98.1 LAB L100.1600 27.0-32.0 pg Normal MCH 31.5 LAB L100.1700 32-36 g/gl Normal MCHC 32.1 LAB L100.1810 11.6-14.6 % Normal RDW CV 14.5 LAB L100.1820 35.1-43.9 fl High RDW SD 49.7 LAB L100.1900 150-450 K/mm3 Normal PLT 163 LAB L100.2000 6.2-12.0 fl Normal MPV 10.2 LAB L100.2100 47-70 % High NEUT% 72.4 LAB L100.2200 19-41 % Low LY% 15.0 LAB L100.2300 0-10 % High MONO% 10.1 LAB L100.2400 0-5 % Normal EO% 1.9 LAB L100.2500 0-1 % Normal BASO% 0.3 LAB L100.2550 0.0-0.9 % Normal IM GRAN % 0.300 Result Comment: IG% - Immature Granulocytes (promyelocytes, myelocytes and metamyelocytes) > 1% indicates that a LEFT SHIFT is Present. LAB L100.2620 2.0-7.7 X10 3/uL Normal Absolute Neut 4.7 LAB L100.2720 0.83-4.51 X10 3/ul Normal Absolute Lymph 0.97 Performed By: #### L100.0100 #### [facility] [address] [place], [address] CARDIOLOGY VISIT Observed: 11/16/2017 Status: F Source: [place] REPORT 5:00 PM [facility] REPOSITORY [facility] [address] [place] [address] OFFICE VISIT Date of Service: 11/16/17 MR#: [id number] Acct: [id number] Name: RACHNA MAYES Rep #: [id number] : 1940 Provider: Bhavna Chiang Age/Sex: 77/M Location: [facility] [place] Status: Signed HPI HPI Details: RACHNA MAYES, is a 77 M who presents to the office today for a follow-up visit. He is a gentleman with a history of coronary artery disease status post V. fib arrest who initially had an ICD placed in July 2014. In 2015 he was admitted for pneumonia and sepsis and developed Enterococcus faecalis infection a RANDALL demonstrated vegetation of his tricuspid valve as well as the lead and he eventually underwent extraction of this defibrillator. He was treated with antibiotics and in 2015 underwent placement of a subcutaneous ICD. In January 2017 he had a syncopal event which was noted to be a V. fib event detected by his device. He underwent a cardiac catheterization which demonstrated evidence of severe multivessel disease with a dominant right coronary artery left main with hazy 50-75% stenosis left anterior descending artery luminal irregularities circumflex artery with distal 50% stenosis in the right coronary artery with an eccentric 25% stenosis. He underwent FFR of the left main and it was noted to be abnormal and due to the above he subsequently underwent coronary artery bypass surgery with a left internal mammary artery to left anterior descending artery and saphenous vein graft to obtuse marginal vessel and exclusion of the left atrial appendage with an atrial appendage clip. Pts main complaint is his fatigue. He feels that he is sleeping okay. He notes that he does take a nap during the day. He still does keep himself active. He walks a few times a day. He notes that he had chest heaviness on sunday. He notes that he is being treated for a URI. Last he was in to see his sld inclusion teacher. He did not add anything. He sts that this really has not gone away since he called. He rates it as a 3/10. It does not get worse with anything. He does not have any lightheadedness/dizziness. He does not have any edema. They are planning on leaving for [place] 12/06. Intake Vital Signs11/16/17 Height 6 ft 2 in 11/16/17 Weight: 216 lb 11/16/17 Body Mass Index (BMI) 27.7 11/16/17 Blood Pressure 110/50 11/16/17 Blood Pressure Location Rt brachial Intake Visit Reasons: chest heaviness Ballroom Dance Instructor Required: No Accompanied by: Is patient in pain?: No Allergies LAURA Inhibitors Adverse Reaction (Intermediate, Verified 11/16/17 08:59) cough enalapril Adverse Reaction (Intermediate, Verified 11/16/17 08:59) Shortness of breath azithromycin [From Zithromax Z-Robert] Adverse Reaction (Verified 11/16/17 08:59) Other levofloxacin [From Levaquin] Adverse Reaction (Verified 11/16/17 08:59) Other warfarin [From Coumadin] Adverse Reaction (Verified 11/16/17 08:59) bleeding under the skin Medications Ascorbic Acid [Vitamin C] 1,000 mg PO DAILY 10/21/16 [History Confirmed 11/16/17] Ferrous Sulfate [Iron] 325 mg PO BID 10/21/16 [History Confirmed 11/16/17] Multivitamin [Multiple Vitamins] 1 ea PO DAILY 10/21/16 [History Confirmed 11/16/17] Omeprazole [Prilosec] 20 mg PO DAILY 10/21/16 [History Confirmed 11/16/17] Advair 250/50 Mcg Diskus 1 puff INHALATION DAILY 11/22/16 [History Confirmed 11/16/17] Cholecalciferol (VIT D3) [Vitamin D3] 1,000 unit PO DAILY 03/21/17 [History Confirmed 11/16/17] L.acidoph,Paracasei, B.lactis [Probiotic] 1 ea PO BID 03/21/17 [History Confirmed 11/16/17] Amiodarone HCl [Cordarone] 200 mg PO DAILY 07/13/17 [History Confirmed 11/16/17] Calcium Carbonate [Calcium] 600 mg PO BID 07/13/17 [History Confirmed 11/16/17] Furosemide [Lasix] 40 mg PO DAILY 07/13/17 [History Confirmed 11/16/17] Insulin Aspart [Novolog Flexpen] 10 units SC BIDCM 07/13/17 [History Confirmed 11/16/17] Insulin Aspart [Novolog Flexpen] 12 units SC DINNER 07/13/17 [History Confirmed 11/16/17] Magnesium Oxide [Magnesium] 400 mg PO BID 07/13/17 [History Confirmed 11/16/17] [place]-3 Fatty Acids [[place]-3] 1,000 mg PO DAILY 07/13/17 [History Confirmed 11/16/17] Spiriva 18 MCG 18 mcg INHALATION DAILY 07/13/17 [History Confirmed 11/16/17] Albuterol Inhaler [Ventolin Hfa] 2 puff INHALATION Q4H PRN PRN 07/14/17 [History Confirmed 11/16/17] Apixaban [Eliquis] 5 mg PO BID tab 07/15/17 [Rx Confirmed 11/16/17] atorvastatin 20 mg tablet 20 mg PO QDAY 10/09/17 [History Confirmed 11/16/17] fluticasone 50 mcg/actuation blister powder for inhalation 1 inh INHALATION BID 10/09/17 [History Confirmed 11/16/17] insulin glargine (U-100) 100 unit/mL subcutaneous solution 12 unit SC QHS 10/09/17 [History Confirmed 11/16/17] levothyroxine 100 mcg capsule 100 mcg PO .COMPLEX cap 10/09/17 [History Confirmed 11/16/17] carvedilol 25 mg tablet 25 mg PO BID #180 tab 11/12/17 [Rx Confirmed 11/16/17] amlodipine 10 mg tablet 10 mg PO DAILY #90 tab 11/16/17 [Rx Confirmed 11/16/17] losartan 100 mg tablet 100 mg PO DAILY #90 tab 11/16/17 [Rx Confirmed 11/16/17] paroxetine 20 mg tablet 20 mg PO QDAY #30 tab 11/16/17 [Rx Confirmed 11/16/17] Ejection fraction %: 30 to 34 PFSH Medical History History of sepsis (Chronic) History of acute bacterial endocarditis (Chronic) Nonrheumatic mitral (valve) prolapse (Chronic) Hypokalemia (Chronic) 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) Cardiomyopathy in other diseases classified elsewhere (Chronic) Left bundle branch block (Chronic) rn long term care use of drug (Chronic) Primary idiopathic hypertrophic cardiomyopathy (Chronic) Atrial fibrillation (Chronic) Family history of CVA (Inactive) Personal history of sudden cardiac arrest (Chronic) Infection and inflammatory reaction due to other cardiac and vascular devices, implants and grafts, initial encounter (Chronic) Anemia (Chronic) Iron deficiency (Chronic) Bilateral carotid bruits (Chronic) HLD (hyperlipidemia) (Chronic) Hypothyroidism (Chronic) Chronic atrial fibrillation (Chronic) Chronic CHF (congestive heart failure) (Chronic) Type II diabetes mellitus (Chronic) Paroxysmal a-fib (Chronic) Left bundle branch block (Chronic) ICD (implantable cardioverter-defibrillator) in place (Chronic) Surgical History History of left heart catheterization (Chronic) S/P CABG x 2 (Chronic) Family History Father , age 47 from peritonitis Peritonitis Mother , age 93 CVA (cerebral vascular accident) several TIA's Social History Smoking Status: Former smoker how long ago did patient quit smokin alcohol intake: never substance use type: does not use caffeine: No what type of physical activity do you participate in: walking frequency: 5-6 times per week duration: 15-30 minutes/day seatbelt use: always do you feel safe at home: Yes ROS Const Const: Positive for fatigue; negative for weakness, fever(s) or headache(s) Eyes Eyes: Negative for blind spots, loss of peripheral vision or transient loss of vision ENT ENT: Negative for headache(s), dizziness, tinnitus or Nosebleed/epistaxis Cardio Chest Pain: Yes (see HPI) Palpitations: No Edema: None Muscle aches with walking: None Resp Respiratory: Positive for Cough; negative for SOB with activity, SOB at rest or SOB orthopnea\SOB lying down GI GI: Negative nausea, vomiting, heartburn or vomiting blood/hematemesis : Negative for hematuria Musc Musc: Negative for muscle aches/ myalgia Neuro Neuro: Negative for weakness, headache(s), dizziness, near syncope, syncope, lightheadedness or orthostatic symptoms Rd Hematologic/Lymphatic: Negative for easy bleeding Endo Endo: Positive for fatigue Cardiology Exam Const Appearance: cooperative, healthy appearing, well developed and no acute distress Orientation: alert, awake and oriented x3 Head Head: normocephalic and atraumatic Ears: hearing grossly normal bilaterally and external ears normal Face and Sinus: face symmetric Mouth: moist mucous membranes Eyes General: appearance normal, both eyes and all related structures Eyelids: eyelids normal Conjunctivae: conjunctivae normal Pupils: PERRL, normal by confrontation and accommodation normal EOM: EOM intact bilaterally Neck Neck: normal visual inspection, trachea midline and no JVD JVD: +5 Carotids: normal carotid upstroke and bounding pulses Chest Chest inspection: normal inspection of the chest, symmetric chest movement, normal respiratory effort and Pacemaker/ICD Yes left pectoral incision Auscultation: Bilateral: Clear to Auscultation Cardio Palpation: normal PMI Rate: regular rate Rhythm: regular rhythm Heart sounds: S1 normal, S2 normal and normal, physiologic split S2; negative rub, gallop or murmur GI GI: normal to inspection, soft, no hepatosplenomegaly and bowel sounds present Neuro General: alert, awake, oriented x3, no focal sensory deficit, gait normal and moves all extremities Skin Skin: no rashes or lesions noted Extremities Pulses: Normal: Right Femoral Pulse, Left Femoral Pulse, Right Dorsalis Pedis Pulse, Left Dorsalis Pedis Pulse, Right Posterior Tibial Pulse, Left Posterior Tibial Pulse, Right Radial Pulse, Left Radial Pulse Upper Extremity: 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 The estimated ejection fraction is 30 %. Mild concentric left ventricular hypertrophy. The left atrium is severely enlarged. The right atrium is mildly enlarged. Mild mitral valve prolapse. Mild diffuse mitral valve thickening. Mild-Moderate (1-2+) mitral valve insufficiency. Mild to moderate (1-2+) tricuspid valve insufficiency. Mild (1+) pulmonic valve insufficiency. Right ventricular systolic pressure estimated to be 49 mmHg c/w pulmonary hypertension. Transmitral diastolic flow velocities suggest diastolic dysfunction (pseudonormal pattern). ?? $? Assessment AND Plan 1. Atherosclerosis of [place] coronary artery of [place] heart without angina pectoris I25.10 FAY to LAD, reverse SVG to OM(FAY graft off the antunez of the SVG to the OM as a free graft); left atrial appendage clipped 04/27/17 per ASA Wiley Patient's chest discomfort or heaviness that he called for does not seem to be cardiac. Suspect that his fatigue and heaviness is more related to depression. Will start patient on a low dose of Paxil. He was advised to further discuss with his primary care doctor. We will continue to monitor. Orders Orders: 2. Essential hypertension I10 ASA Gonzalez Blood pressure is well controlled on current medications, we do not recommend any changes at this time. 3. Chronic systolic congestive heart failure I50.22 Systolic EF 40% ASA Gonzalez Patient does not have any symptoms of congestive heart failure. He will continue with current aggressive medical management. He will continue with his current dose of diuretics. Recent BNP was negative. 4. Paroxysmal a-fib I48.0 ASA Gonzalez Patient will continue with his current beta-tiffany, he remains on amiodarone. Unfortunately he does have hypothyroidism. This is being monitored through his client development director. His doses of his thyroid medications have been adjusted. He is anticoagulated with a factor Xa inhibitor. Orders Orders: 5. Ventricular fibrillation I49.01 ASA Gonzalez Patient does have an ICD. He will remain on his amiodarone. As mentioned above we will need to continue to monitor his thyroid functions closely. He does see his client development director for this. 6. 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 We will continue to monitor with routine scheduled ICD interrogations. Patient has not had any discharges from their device. 7. Fatigue, unspecified type R53.83 ASA Gonzalez As mentioned above to feel that his fatigue does have to do with depression. Recently obtained a CBC and BPM, these were all normal. We are starting patient on low-dose Paxil. He was advised to follow-up with his primary care doctor. Plan Detail Other Medications New: Changed: Refilled: Additional Comments - ASA Rudd The above patient was discussed with Dr. Verdin, he agrees with plan of care. Thank you for allowing us to participate in patient's plan of care, if you have any questions please do not hesitate to call. This note was generated using a voice recognition system and there may be incorrect words, spelling or punctuation errors that were not noted when reviewing the office note prior to saving. Follow Up 11/16/17 (Keep as is) Coding Level of Care Code Off vis,est,level 4 Diagnoses Atherosclerosis of [place] coronary artery of [place] heart without angina pectoris I25.10 [place] vs. transplanted heart: [place] heart Essential hypertension I10 Hypertension type: essential hypertension Chronic systolic congestive heart failure I50.22 Heart failure type: systolic Paroxysmal a-fib I48.0 Ventricular fibrillation I49.01 ICD (implantable cardioverter-defibrillator) in place Z95.810 Fatigue, unspecified type R53.83 Fatigue type: unspecified Coding Level of Care Code Off vis,est,level 4 Diagnoses Atherosclerosis of [place] coronary artery of [place] heart without angina pectoris I25.10 [place] vs. transplanted heart: [place] heart Essential hypertension I10 Hypertension type: essential hypertension Chronic systolic congestive heart failure I50.22 Heart failure type: systolic Paroxysmal a-fib I48.0 Ventricular fibrillation I49.01 ICD (implantable cardioverter-defibrillator) in place Z95.810 Fatigue, unspecified type R53.83 Fatigue type: unspecified 11/16/17 1654 <Electronically signed by Bhavna BRAY> Date Bhavna BRAY 11/16/17 1700<Electronically signed by Bunny Verdin MD> Cosigner Signature: Date (if applicable) Bunny Verdin MD CC: Corin Hernandez MD 12 LEAD EKG PERFORMED Observed: 11/16/2017 Status: F Source: [place] BY [facility] 9:49 AM [facility] REPOSITORY [facility] [address] [place] [address] 12 Lead EKG performed by [facility] 11/16/17947 MR#: [id number] Acct: [id number] Name: RACHNA MAYES Rep #: [id number] : 1940 77 From: Bhavna BRAY Attending Dr: Bhavna Chiang Status: DEP AMB Ordering Dr: Bhavna Chiang Date: 11/16/17 Location: [facility] Sex: M C Admitted: BMS/12 Lead EKG performed by [facility] ECG Report Interpretation Sinus Bradycardia -First degree A-V block Luther = 262-Left bundle branch block. -Old lateral infarct. ABNORMAL Electronically signed on 12/01/2017 at 18:31 by Bunny Verdin 12/01/17 1834 Date Bhavna BRAY CC: Corin Hernandez MD Date Dictated: 11/16/17947 Date Transcribed: 11/16/17947 Compression Molding Machine Operator: AG Signed CBC-COMPLETE BLOOD CNT Collected: 11/15/2017 Status: F Source: [place] NO DIFF 7:25 AM [facility] REPOSITORY Order Comment: T4F,T3F,TSH FOR DR GOTTI TYPE CODE TESTS RESULT OUT OF RANGE REFERENCE UNITS LAB L100.1000 4.4-11.0 K/mm3 Normal WBC 7.2 LAB L100.1200 4.6-6.2 M/mm3 Low RBC 4.04 LAB L100.1300 13.0-16.5 g/dl Low HGB 12.1 LAB L100.1400 40-54 % Low HCT 38.9 LAB L100.1500 80-94 fL High MCV 96.3 LAB L100.1600 27.0-32.0 pg Normal MCH 30.0 LAB L100.1700 32-36 g/gl Low MCHC 31.1 LAB L100.1810 11.6-14.6 % High RDW CV 15.0 LAB L100.1820 35.1-43.9 fl High RDW SD 52.8 LAB L100.1900 150-450 K/mm3 Normal PLT 162 LAB L100.2000 6.2-12.0 fl Normal MPV 10.2 Performed By: #### L100.0500, L500.2500, L501.13417, L501.9520, L506.0400, L503.6620 #### [facility] [address] [place], [address] BASIC METABOLIC Collected: 11/15/2017 Status: F Source: [place] PROFILE (BMP) 7:25 AM [facility] REPOSITORY Order Comment: T4F,T3F,TSH FOR DR GTOTI TYPE CODE TESTS RESULT OUT OF RANGE REFERENCE UNITS LAB L501.0100 74-106 mg/dL High GLU 274 Result Comment: Glucose result greater than or equal to 200 mg/dL suggests DIABETES MELLITUS per A.D.A. criteria. Please note revised GLUCOSE reference range effective 2017. LAB L501.1000 7-18 mg/dL High BUN 29 LAB L501.1100 0.70-1.30 mg/dL High CREAT,SERUM 1.99 Result Comment: The validity of the calculated GFR AND GFRAA in patients over 70 years has not been determined. Clinical correlation is essential. LAB L501.1110 >60 mL/min Low EST GFR 35 Result Comment: Non- GFR Calc LAB L501.1115 >60 mL/min Low EST GFR - AA 42 Result Comment: GFR Calc LAB L501.1300 10-20 RATIO Normal BUN/CRE 14.6 LAB L501.2200 8.5-10.1 mg/dL CA Normal 9.1 LAB L501.5300 136-145 mmol/L NA Normal 141 LAB L501.5600 3.5-5.1 mmol/L K Normal 4.3 LAB L501.5900 98-107 mmol/L CL Normal 103 LAB L501.6100 21.0-32.0 mmol/L Normal CO2 31.0 LAB L501.6200 5-15 Normal GAP 7 Performed By: #### L100.0500, L500.2500, L501.33121, L501.9520, L506.0400, L503.6620 #### [facility] [address] [place], [address] FREE T3 Collected: 11/15/2017 Status: F Source: [place] 7:25 AM [facility] REPOSITORY Order Comment: T4F,T3F,TSH FOR DR GOTTI TYPE CODE TESTS RESULT OUT OF RANGE REFERENCE UNITS LAB L501.07001 2.18-3.98 pg/mL Low FREE T3 2.1 Performed By: #### L100.0500, L500.2500, L501.02855, L501.9520, L506.0400, L503.6620 #### [facility] [address] [place], [place], [id number] THYROID STIM HORMONE Collected: 11/15/2017 Status: F Source: [place] (TSH) 7:25 AM [facility] REPOSITORY Order Comment: T4F,T3F,TSH FOR DR GOTTI TYPE CODE TESTS RESULT OUT OF RANGE REFERENCE UNITS LAB L501.9520 0.358-3.74 uIU/mL High TSH 6.41 Performed By: #### L100.0500, L500.2500, L501.58442, L501.9520, L506.0400, L503.6620 #### [facility] [address] [place], [place], [id number] T4 FREE DIRECT Collected: 11/15/2017 Status: F Source: [place] 7:25 AM [facility] REPOSITORY Order Comment: T4F,T3F,TSH FOR DR GOTTI TYPE CODE TESTS RESULT OUT OF RANGE REFERENCE UNITS LAB L506.0400 0.76-1.46 ng/dL Normal T4 FREE 1.28 DIRECT Performed By: #### L100.0500, L500.2500, L501.34236, L501.9520, L506.0400, L503.6620 #### [facility] [address] [place], [place], [id number] BNP,B-TYPE NATRIURETIC Collected: 11/15/2017 Status: F Source: [place] PEPTIDE 7:25 AM [facility] REPOSITORY Order Comment: T4F,T3F,TSH FOR DR GOTTI TYPE CODE TESTS RESULT OUT OF RANGE REFERENCE UNITS LAB L503.6620 0-100 pg/mL Normal B-TYPE 93.2 JOHNNY PEP Performed By: #### L100.0500, L500.2500, L501.77788, L501.9520, L506.0400, L503.6620 #### [facility] [address] [place], [address] CHEST PA AND LATERAL Observed: 11/08/2017 Status: F Source: [place] 11:04 AM [facility] REPOSITORY [facility] [address] [place] [address] Chest PA and Lateral MR#: [id number] Acct: [id number] Name: RACHNA MAYES Rep #: [id number] : 1940 M 77 From: Hiram Randall MD PCP: Corin Hernandez MD Status: REG CLI Study: Chest PA and Lateral Date of Exam: 11/08/17 Exam# [id number] Ordering Dr: Estrellita Tony MD STUDY: X-RAY CHEST REASON FOR EXAM: Male, 77 years old. COPD TECHNIQUE: PA and lateral views of the chest. COMPARISON: Previous study of 07/13/2017 FINDINGS: A stimulator device is seen overlying the lateral left thorax with lead overlying the mid thorax. An atrial appendage clip is seen. The lungs are clear and expanded. There is no demonstrated pleural abnormality. There is mild cardiac enlargement. Status post sternotomy changes are evident. Normal mediastinum and alon. Normal visualized pulmonary arteries. Normal visualized aortic arch and descending thoracic aorta. There is demineralization of the osseous structures. Normal visualized ribs, clavicles, and shoulders. There is no demonstrated abnormality of the visualized soft tissue structures of the upper abdomen. RAD/Chest PA and Lateral IMPRESSION: Mild cardiomegaly. Status post sternotomy. No acute cardiopulmonary disease process is seen. Electronically Signed: Hiram Randall MD at 23:58 EDT , Service support , CC: Corin Hernandez MD; Estrellita Tony MD Compression Molding Machine Operator: Signed URGENT CARE VISIT Observed: 11/03/2017 Status: F Source: [place] REPORT 9:09 AM [facility] REPOSITORY [facility] [address] [place] [address] [address] [place] [address] OFFICE VISIT Date of Service: 11/03/17 MR#: [id number] Acct: [id number] Name: RACHNA MAYES Franck Rep #: [id number] : 1940 Provider: ASA Sims Age/Sex: 77/M Location: [facility] Status: Signed Intake Vital Signs11/03/17 Height 6 ft 2 in 11/03/17 Weight: 216 lb 11/03/17 Body Mass Index (BMI) 27.7 Intake Visit Reasons: COLD/ HX OF PNEUMONIA Chief Complaint: Follow-up visits. Allergies LAURA Inhibitors Adverse Reaction (Intermediate, Verified 10/05/17 12:21) cough enalapril Adverse Reaction (Intermediate, Verified 10/05/17 12:21) Shortness of breath azithromycin [From Zithromax Z-Robert] Adverse Reaction (Verified 10/05/17 12:21) Other levofloxacin [From Levaquin] Adverse Reaction (Verified 10/05/17 12:21) Other warfarin [From Coumadin] Adverse Reaction (Verified 10/05/17 12:21) bleeding under the skin Medications Ascorbic Acid [Vitamin C] 1,000 mg PO DAILY 10/21/16 [History Confirmed 10/04/17] Ferrous Sulfate [Iron] 325 mg PO BID 10/21/16 [History Confirmed 10/09/17] Multivitamin [Multiple Vitamins] 1 ea PO DAILY 10/21/16 [History Confirmed 10/04/17] Omeprazole [Prilosec] 20 mg PO DAILY 10/21/16 [History Confirmed 10/04/17] Advair 250/50 Mcg Diskus 1 puff INHALATION DAILY 11/22/16 [History Confirmed 10/09/17] Cholecalciferol (VIT D3) [Vitamin D3] 1,000 unit PO DAILY 03/21/17 [History Confirmed 10/04/17] L.acidoph,Paracasei, B.lactis [Probiotic] 1 ea PO BID 03/21/17 [History Confirmed 10/09/17] Amiodarone HCl [Cordarone] 200 mg PO DAILY 07/13/17 [History Confirmed 10/04/17] Calcium Carbonate [Calcium] 600 mg PO BID 07/13/17 [History Confirmed 10/09/17] Carvedilol 25 mg PO BID 07/13/17 [History Confirmed 10/04/17] Eliquis 5 mg PO BID 07/13/17 [History Confirmed 10/09/17] Furosemide [Lasix] 40 mg PO DAILY 07/13/17 [History Confirmed 10/04/17] Insulin Aspart [Novolog Flexpen] 10 units SC BIDCM 07/13/17 [History Confirmed 10/09/17] Insulin Aspart [Novolog Flexpen] 12 units SC DINNER 07/13/17 [History Confirmed 10/09/17] Magnesium Oxide [Magnesium] 400 mg PO BID 07/13/17 [History Confirmed 10/04/17] [place]-3 Fatty Acids [[place]-3] 1,000 mg PO DAILY 07/13/17 [History Confirmed 10/04/17] Spiriva 18 MCG 18 mcg INHALATION DAILY 07/13/17 [History Confirmed 10/04/17] Albuterol Inhaler [Ventolin Hfa] 2 puff INHALATION Q4H PRN PRN 07/14/17 [History Confirmed 10/09/17] Amlodipine [Norvasc] 10 mg PO DAILY tab 07/15/17 [Rx Confirmed 10/04/17] Apixaban [Eliquis] 5 mg PO BID tab 07/15/17 [Rx Confirmed 10/04/17] atorvastatin 20 mg tablet 20 mg PO QDAY 10/09/17 [History Confirmed 10/09/17] fluticasone 50 mcg/actuation blister powder for inhalation 1 inh INHALATION BID 10/09/17 [History Confirmed 10/09/17] insulin glargine (U-100) 100 unit/mL subcutaneous solution 12 unit SC QHS 10/09/17 [History Confirmed 10/09/17] levothyroxine 100 mcg capsule 100 mcg PO .COMPLEX cap 10/09/17 [History Confirmed 10/09/17] losartan 50 mg tablet 100 mg PO DAILY #180 tab 10/09/17 [Rx Confirmed 10/09/17] prednisone 20 mg tablet 20 mg PO .COMPLEX 7 Days #10 tab 11/03/17 [Rx Confirmed 11/03/17] [facility] Medical History History of sepsis (Chronic) History of acute bacterial endocarditis (Chronic) Nonrheumatic mitral (valve) prolapse (Chronic) Hypokalemia (Chronic) 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) Cardiomyopathy in other diseases classified elsewhere (Chronic) Left bundle branch block (Chronic) rn long term care use of drug (Chronic) Primary idiopathic hypertrophic cardiomyopathy (Chronic) Atrial fibrillation (Chronic) Family history of CVA (Inactive) Personal history of sudden cardiac arrest (Chronic) Infection and inflammatory reaction due to other cardiac and vascular devices, implants and grafts, initial encounter (Chronic) Anemia (Chronic) Iron deficiency (Chronic) Bilateral carotid bruits (Chronic) HLD (hyperlipidemia) (Chronic) Hypothyroidism (Chronic) Chronic atrial fibrillation (Chronic) Chronic CHF (congestive heart failure) (Chronic) Type II diabetes mellitus (Chronic) Paroxysmal a-fib (Chronic) Left bundle branch block (Chronic) ICD (implantable cardioverter-defibrillator) in place (Chronic) Surgical History History of left heart catheterization (Chronic) S/P CABG x 2 (Chronic) Family History Father , age 47 from peritonitis Peritonitis Mother , age 93 CVA (cerebral vascular accident) several TIA's Social History Smoking Status: Former smoker alcohol intake: never HPI HPI Chief Complaint: Follow-up visits. Details: RACHNA MAYES, is a 77 M who presents to the office today for evaluation of cough. The patient presents with his who provides the history. The is worried about respiratory failure. The patient has a history of cardiac arrest with flash pulmonary edema requiring intubation in the recent past. The patient states he has had a cough for 3-4 days he is productive of clear secretions. He denies any fevers or chills or flulike illness. He denies ear pain or sore throat. He has been taking his respiratory medications as scheduled. ROS Const Constitutional: No chills or fever(s) Eyes Eyes: No change in vision ENT ENT: No ear pain, sore throat, nasal congestion or nasal discharge Resp Respiratory: Positive for cough, chest congestion and wheezing; no shortness of breath or excessive phlegm production Cardio Cardiology: No chest pain at rest or chest pain with exertion Gastro GI: No abdominal pain, diarrhea, vomiting or nausea/dyspepsia Genitourinary Male: No urinary frequency, urinary urgency or difficulty urinating Musc Musculoskeletal: No back pain or abnormal walking Skin Skin: No rash or change in skin color Neuro Neurology: No confusion, abnormal walking or abnormal speech Psych Psychiatric: No confusion Aller/Imm Allergy/Immunologic: Positive for wheezing Exam Const General: healthy appearing, no acute distress Orientation: oriented x3, oriented to person, oriented to place, oriented to time [facility] Head: normocephalic Ears: external ears normal, TM's normal bilaterally, EAC's normal Eyes General: appearance normal, both eyes and all related structures Conjunctivae: conjunctivae normal Sclera: sclerae normal Pupils: PERRL Neck Neck: no lymphadenopathy Thyroid: thyroid normal Chest Chest palpation AND inspection: normal inspection of the chest Resp Auscultation: Bilateral: Expiratory Wheezes (lower and middle lobes) Cardio Rate: regular rate Rhythm: regular rhythm GI Inspection: normal to inspection Auscultation: normal bowel sounds Palpation: no hepatosplenomegaly, no splenomegaly, no masses Skin General: no pallor Rashes: no rashes Nails: no clubbing Neuro General: oriented x3, gait normal Extrem General: normal to inspection, no pedal edema, no calf tenderness, normal gait, no edema, no cyanosis, no clubbing, no calf tenderness bilaterally, no pedal edema Psych Mood: congruent mood Affect: normal affect Speech and Movement: speech and movement normal Assessment AND Plan Problems 1. Acute bronchospasm J98.01 Plan We will begin a prednisone taper. The patient was instructed to continue his inhalers. Keep well-hydrated. Return to the clinic if symptoms worsen. If shortness of breath occurs seek immediate medical attention. Medications New: prednisone 20 mg PO 2 pills daily x 3 days, then 1 pill daily x 4 days; administer with fo od or milk 7 days Coding Level of Care Code Off vis,est,level 3 Diagnoses Acute bronchospasm J98.01 11/03/17 0909 <Electronically signed by Jayy BRAY> Date Jayy Bethany BRAY Eddiemikecarlos Signature: Date (if applicable) CC: OFFICE VISIT REPORT Observed: 10/30/2017 Status: F Source: [place] 11:05 AM [facility] Services [address] [address] OFFICE VISIT Date of Service: 10/25/17 MR#: [id number] Acct: [id number] Patient: RACHNA MAYES Rep #: [id number] : 1940 Provider: Glo Kowalski Age/Sex: 77/M Location: [facility] Status: Signed Comments Summary Comments: Remote S-ICD Evaluation: Patients called stating patient experienced a brief period of dizziness and tiredness while outside walking. Denied any other sx's of chest pain or SOB. Remote interrogation shows no treated or untreated episodes since 05/11/17. Presenting rhythm shows NSR @ 65 bpm. Remaining battery life to [place] 79%. Electrode impedance status ok. No arrhythmias noted for detection rate of 200 bpm. Device Device Date Interviewed: 10/25/17 Follow-up Location: remote Interview Reason: scheduled follow up Site Director: Adayana Name: EmbleFitBionic S-ICD Model: A209 Serial #: [id number] Implant Date: 01/31/16 Year(s): 1 Implant Physician: Dr. Estrellita Soto/[facility] Patient Characteristics Ventricular Indication: Ventricular Fibrillation (cardiac arrest) Patient Substrate: Ischemic cardiomyopathy, Nonischemic cardiomyopathy Ejection fraction %: 45 to 49 (11/02/2015) By: Echo Underlying rhythm: Sinus rhythm Device Characteristics Type: Implantable defibrillator (Subcutaneous) Remote Follow-Up: Latitude Tachy Settings Tachy Therapy settings: Shock Zone: 250 bpm Conditional Shock Zone: 200 bpm Billing Codes ICD Device Billing: ICD Dev Prog Eval, Single Assessment AND Plan Problems 1. ICD (implantable cardioverter-defibrillator) in place Z95.810 2. Ventricular fibrillation I49.01 3. Left bundle branch block I44.7 4. CAD in [place] artery I25.10 5. Paroxysmal a-fib I48.0 6. Cardiomyopathy, nonischemic I42.8 7. Chronic systolic congestive heart failure I50.22 Systolic EF 40% 8. Syncope R55 10/25/17 1817 <Electronically signed by Glo Kowalski > Date Glo Kowalski 10/30/17 1105<Electronically signed by Bunny Verdin MD> Cosigner Signature: Date (if applicable) Bunny Verdin MD CC: PROGRESS Observed: 10/11/2017 Status: COMPLETED Source: [place] 9:27 AM [facility] REPOSITORY [facility] ID: [id number] Author: Jayy Cancino Service: (none) Author Type: Physician Type: Progress Notes Filed: 10/11/2017 10:10 AM Note Text: Basic HPI: 77 year old male who comes in for kidney stone management. Voiced no complaints of pain at this time. Denies gross hematuria. GUROS: UA: Component Latest Ref Rng AND Units 10/11/2017 Color Yellow Yellow Clarity Clear Clear Glucose, Urine Negative mg/dL Negative Bilirubin, Urine Negative Negative Ketones, Urine Negative Negative Specific [place], Ur 1.005 - 1.030 1.007 Hemoglobin/Blood,Ur Negative Negative pH, Urine 4.5 - 8.0 5.0 Protein, Urine Negative mg/dL Negative Urobilinogen Normal Normal Nitrites Negative Negative Leukest Negative Negative Comments SEE COMMENT Urine North Comment SEE COMMENT KUB: 10/05/2017 ?3:55 PM - Interface, Results In Impression IMPRESSION: NO SIGNIFICANT CHANGE BILATERAL NEPHROLITHIASIS Renal Sono: 10/05/2017 ?3:59 PM - Interface, Results In Impression IMPRESSION: BILATERAL RENAL CALCULI AND RENAL CYSTS Stone Panel: Component Latest Ref Rng AND Units 03/30/2014 Calcium, 24 Hr Urine 100 - 300 mg/24 hr 12.2 (L) Citric Acid, 24 Hr Urine 320 - 940 mg/24hrs 19 (L) Creatinine 24 hr Ur 1.0 - 2.0 g/24 hr 1.329 Sodium, 24 hr Urine 40 - 220 mmol/24hr 62 Oxalate, 24 Hr Urine 7 - 44 mg/24hrs 37 Uric Acid, 24 Hr Urine 250 - 750 mg/24hr 134.6 (L) Period hr 24 Urine Volume 24 hour mL 1112 Collection Start Date 803 Collection Start Time 1440 Collection End Date 804 Collection End Time 1440 Kidney Stone Analysis: none Force of Stream: strong NOCTURIA: Yes: 1 times /night Day Time Frequency: 4hr, depending on PO intake Hesitancy: No Intermittency: No Incomplete Emptying: No Post void Dribbling: No Urinary Retention Hx:No Double Voiding: No Urgency: Yes: sometimes Dysuria: No Incontinence history: No Gross hematuria history: No UTI Hx: No Stone Event Hx: No Review, other organ system: GI: Blood: No Constipation: No Diarrhea: No Nausea/Vomiting: No OTHER: patient present for kidney stone f/u. Last seen 2015. Has imaging for review. Shraddha Harris RN STAFF UROLOGY NOTE: I personally interviewed the patient, examined, confirmed and edited the history that was documented by Ms Steven RN and ancillary personnel. No voiding problems. Had radical prostatectomy approximately 15 yr ago for CAP; PSA in 2015 was 0.54 and in 2016 it was 0.58. They state Dr. Johnson did not feel more PSA's were needed. KUB/sono show no significant change in asymptomatic stones. Benign renal cysts. Has an ectopic right kidney. U/A negative. No other issues. Imp: The primary encounter diagnosis was Calculus of kidney. Diagnoses of Malignant neoplasm of prostate (HCC) and Acquired cyst of kidney were also pertinent to this visit. Plan: F/U 1 yr with KUB/sono; patient dd not wish a PSA at this time; spouse with patient today. Jayy Cancino MD Director, Surgical Stone Disease, [facility] [place] rail loader, [facility] Pager [phone] 10/11/2017 URINALYSIS Collected: 10/11/2017 Status: F Source: [place] 8:56 AM [facility] REPOSITORY TYPE CODE TESTS RESULT OUT OF REFERENCE UNITS RANGE LAB UCOL Yellow Color Yellow LAB [facility] Clear Clarity Clear LAB UGLUC Negative mg/dL Glucose, Urine Negative LAB UBIL Negative Bilirubin, Urine Negative LAB UKET Negative Ketones, Urine Negative LAB USPG 1.005-1.030 Specific [place], Ur 1.007 LAB UHGB Negative Hemoglobin/Blood, Negative Ur LAB UPH 4.5-8.0 pH 5.0 LAB UPROT Negative mg/dL Protein, Urine Negative LAB UUROB Normal Urobilinogen Normal LAB UNITR Negative Nitrites Negative LAB ULKEST Negative Leukest Negative LAB UCOM Comments SEE COMMENT Result Comment: Microscopic not warranted LAB [facility] Urine SEE North Comment COMMENT Result Comment: N/A Performed By: #### UA #### [facility] [address] [place], [place] [address] CARDIOLOGY VISIT Observed: 10/09/2017 Status: F Source: [place] REPORT 10:44 AM [facility] REPOSITORY [facility] [address] [place] [address] OFFICE VISIT Date of Service: 10/09/17 MR#: [id number] Acct: [id number] Name: RACHNA MAYES Rep #: [id number] : 1940 Provider: Bunny Verdin MD Age/Sex: 77/M Location: [facility] Status: Signed [facility] Chief Complaint: Follow-up visits. Details: RACHNA MAYES, is a 77 M who presents to the office today for a follow-up visit. He is a gentleman with a history of coronary artery disease status post V. fib arrest who initially had an ICD placed in July 2014. In 2015 he was admitted for pneumonia and sepsis and developed Enterococcus faecalis infection a RANDALL demonstrated vegetation of his tricuspid valve as well as the lead and he eventually underwent extraction of this defibrillator. He was treated with antibiotics and in 2015 underwent placement of a subcutaneous ICD. In January 2017 he had a syncopal event which was noted to be a V. fib event detected by his device. He underwent a cardiac catheterization which demonstrated evidence of severe multivessel disease with a dominant right coronary artery left main with hazy 50-75% stenosis left anterior descending artery luminal irregularities circumflex artery with distal 50% stenosis in the right coronary artery with an eccentric 25% stenosis. He underwent FFR of the left main and it was noted to be abnormal and due to the above he subsequently underwent coronary artery bypass surgery with a left internal mammary artery to left anterior descending artery and saphenous vein graft to obtuse marginal vessel and exclusion of the left atrial appendage with an atrial appendage clip. He has been doing well since then denying any chest pain or shortness of breath or paroxysmal nocturnal dyspnea. He has been compliant with his medications. He tells me that he is actually doing quite well now. He has not had any recent defibrillator discharges. His physical exam demonstrates clear lung billingsley regular rate and rhythm and no pedal edema. Intake Vital Signs10/09/17 Height 6 ft 2 in 10/09/17 Weight: 216 lb 10/09/17 Body Mass Index (BMI) 27.7 10/09/17 Blood Pressure 100/40 Intake Visit Reasons: 3 M FU Accompanied by: Is patient in pain?: No Allergies LAURA Inhibitors Adverse Reaction (Intermediate, Verified 10/05/17 12:21) cough enalapril Adverse Reaction (Intermediate, Verified 10/05/17 12:21) Shortness of breath azithromycin [From Zithromax Z-Robert] Adverse Reaction (Verified 10/05/17 12:21) Other levofloxacin [From Levaquin] Adverse Reaction (Verified 10/05/17 12:21) Other warfarin [From Coumadin] Adverse Reaction (Verified 10/05/17 12:21) bleeding under the skin Medications Ascorbic Acid [Vitamin C] 1,000 mg PO DAILY 10/21/16 [History Confirmed 10/04/17] Ferrous Sulfate [Iron] 325 mg PO BID 10/21/16 [History Confirmed 10/09/17] Multivitamin [Multiple Vitamins] 1 ea PO DAILY 10/21/16 [History Confirmed 10/04/17] Omeprazole [Prilosec] 20 mg PO DAILY 10/21/16 [History Confirmed 10/04/17] Advair 250/50 Mcg Diskus 1 puff INHALATION DAILY 11/22/16 [History Confirmed 10/09/17] Cholecalciferol (VIT D3) [Vitamin D3] 1,000 unit PO DAILY 03/21/17 [History Confirmed 10/04/17] L.acidoph,Paracasei, B.lactis [Probiotic] 1 ea PO BID 03/21/17 [History Confirmed 10/09/17] Amiodarone HCl [Cordarone] 200 mg PO DAILY 07/13/17 [History Confirmed 10/04/17] Calcium Carbonate [Calcium] 600 mg PO BID 07/13/17 [History Confirmed 10/09/17] Carvedilol 25 mg PO BID 07/13/17 [History Confirmed 10/04/17] Eliquis 5 mg PO BID 07/13/17 [History Confirmed 10/09/17] Furosemide [Lasix] 40 mg PO DAILY 07/13/17 [History Confirmed 10/04/17] Insulin Aspart [Novolog Flexpen] 10 units SC BIDCM 07/13/17 [History Confirmed 10/09/17] Insulin Aspart [Novolog Flexpen] 12 units SC DINNER 07/13/17 [History Confirmed 10/09/17] Magnesium Oxide [Magnesium] 400 mg PO BID 07/13/17 [History Confirmed 10/04/17] [place]-3 Fatty Acids [[place]-3] 1,000 mg PO DAILY 07/13/17 [History Confirmed 10/04/17] Spiriva 18 MCG 18 mcg INHALATION DAILY 07/13/17 [History Confirmed 10/04/17] Albuterol Inhaler [Ventolin Hfa] 2 puff INHALATION Q4H PRN PRN 07/14/17 [History Confirmed 10/09/17] Amlodipine [Norvasc] 10 mg PO DAILY tab 07/15/17 [Rx Confirmed 10/04/17] Apixaban [Eliquis] 5 mg PO BID tab 07/15/17 [Rx Confirmed 10/04/17] atorvastatin 20 mg tablet 20 mg PO QDAY 10/09/17 [History Confirmed 10/09/17] fluticasone 50 mcg/actuation blister powder for inhalation 1 inh INHALATION BID 10/09/17 [History Confirmed 10/09/17] insulin glargine (U-100) 100 unit/mL subcutaneous solution 12 unit SC QHS 10/09/17 [History Confirmed 10/09/17] levothyroxine 100 mcg capsule 100 mcg PO .COMPLEX cap 10/09/17 [History Confirmed 10/09/17] losartan 50 mg tablet 100 mg PO DAILY #180 tab 10/09/17 [Rx Confirmed 10/09/17] Ejection fraction %: 30 to 34 (30% per echo 03/20/17) [facility] Medical History History of sepsis (Chronic) History of acute bacterial endocarditis (Chronic) Nonrheumatic mitral (valve) prolapse (Chronic) Hypokalemia (Chronic) 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) Cardiomyopathy in other diseases classified elsewhere (Chronic) Left bundle branch block (Chronic) retirement use of drug (Chronic) Primary idiopathic hypertrophic cardiomyopathy (Chronic) Atrial fibrillation (Chronic) Family history of CVA (Inactive) Personal history of sudden cardiac arrest (Chronic) Infection and inflammatory reaction due to other cardiac and vascular devices, implants and grafts, initial encounter (Chronic) Anemia (Chronic) Iron deficiency (Chronic) Bilateral carotid bruits (Chronic) HLD (hyperlipidemia) (Chronic) Hypothyroidism (Chronic) Chronic atrial fibrillation (Chronic) Chronic CHF (congestive heart failure) (Chronic) Type II diabetes mellitus (Chronic) Paroxysmal a-fib (Chronic) Left bundle branch block (Chronic) ICD (implantable cardioverter-defibrillator) in place (Chronic) Surgical History History of left heart catheterization (Chronic) S/P CABG x 2 (Chronic) Family History Father , age 47 from peritonitis Peritonitis Mother , age 93 CVA (cerebral vascular accident) several TIA's Social History Smoking Status: Former smoker ROS Const Const: Positive for other (last night blood glucose dropped to 45, 147 this am); negative for body ache, fever(s), chills, night sweats, daytime sleepiness, difficulty sleeping, weight gain, weight loss, increased appetite, poor appetite or anorexia ENT ENT: Negative for balance problems Cardio Chest Pain: No Palpitations: Negative for Yes or No Edema: Bilateral (very mild in lower legs) Muscle aches with walking: None Resp Respiratory: Positive for other (cough: sometimes dry and sometimes productive); negative for SOB with activity, SOB at rest, SOB orthopnea\SOB lying down, Coughing up blood/hemoptysis, chest congestion, pain on inspiration, snoring, stridor, wheezing, crackles or paroxysmal nocturnal dyspnea GI GI: Negative nausea, vomiting, heartburn, constipation, belching, bloating, cramping, vomiting blood/hematemesis, bright, red blood in stools, black,tarry stools, loose stools, Difficulty Swallowing or other Musc Musc: Negative for muscle aches/ myalgia, muscle weakness, joint pain or balance problems Cardiology Exam Const Appearance: cooperative, healthy appearing, well developed, well groomed and no acute distress Nutritional Appearance: well nourished and average body habitus Orientation: alert, awake and oriented x3 Head Head: normal to inspection, normocephalic and atraumatic Ears: hearing grossly normal bilaterally and external ears normal Nose: external nose normal, nasal mucous membranes and turbinates normal, nares normal, septum normal, no nasal discharge Face and Sinus: face symmetric Mouth: oral mucosae normal, tongue normal, oropharynx normal and moist mucous membranes Teeth and gingiva: dentition normal Throat: posterior oropharynx normal, tonsils normal and uvula midline Eyes General: appearance normal, both eyes and all related structures Eyelids: eyelids normal Conjunctivae: conjunctivae normal Pupils: PERRL, normal by confrontation and accommodation normal EOM: EOM intact bilaterally Neck Neck: normal visual inspection, trachea midline and no JVD JVD: +5 Carotids: normal carotid upstroke and bounding pulses Chest Chest inspection: normal inspection of the chest, symmetric chest movement and normal respiratory effort Auscultation: Bilateral: Clear to Auscultation Cardio Palpation: normal PMI Rate: regular rate Rhythm: regular rhythm Heart sounds: S1 normal, S2 normal and normal, physiologic split S2; negative rub, gallop or murmur GI GI: normal to inspection, soft, no hepatosplenomegaly and bowel sounds present Neuro General: alert, awake, oriented x3, no focal sensory deficit, gait normal and moves all extremities Skin Skin: no rashes or lesions noted Extremities Pulses: Normal: Right Femoral Pulse, Left Femoral Pulse, Right Dorsalis Pedis Pulse, Left Dorsalis Pedis Pulse, Right Posterior Tibial Pulse, Left Posterior Tibial Pulse, Right Radial Pulse, Left Radial Pulse Lower Extremity Edema: None: Bilateral Musculoskel Musculoskeletal: No joint tenderness Psych Psychological: normal affect Assessment AND Plan 1. S/P CABG x 2 Z95.1 FAY to LAD, reverse SVG to OM(FAY graft off the antunez of the SVG to the OM as a free graft); left atrial appendage clipped 04/27/[address] Knox Plan He is status post coronary bypass surgery and at this time appears to be doing well he has not had any chest pain he has been undergoing cardiac rehabilitation and at this time will continue with medical management as well as risk factor modification. 2. ICD (implantable cardioverter-defibrillator) in place Z95.810 Plan He is status post subcutaneous ICD implantation. He has not had any recent defibrillator discharges will continue to monitor the above and a defibrillator clinic. The incisions are well-healed. 3. Chronic systolic congestive heart failure I50.22 Systolic EF 40% Plan He does have evidence of left ventricular systolic dysfunction with an estimated ejection fraction of 30-40%. He has not had any obvious heart failure symptoms recently he will remain on carvedilol as well as Lasix. He is also on losartan and will continue to recheck his electrolytes. 4. Paroxysmal atrial fibrillation I48.0 Plan He is maintaining sinus rhythm on the amiodarone and he is also anticoagulated with apixaban. We will continue the above and he would be followed up in the defibrillator clinic to assess whether it is been any rhythm changes. He does have an occluded left atrial appendage from the surgery and therefore his risk for an embolic event may be lower than otherwise. 5. Essential hypertension I10 Plan He does have a history of hypertension his blood pressure today is well controlled he has not had any symptoms he remains on amlodipine and carvedilol as well as losartan. I have told him that that should he have any dizziness we may have to reduce the dose of the amlodipine. 6. History of acute bacterial endocarditis Z86.79 Plan History of endocarditis. He does not appear to have had any recurrence of the above he is not on maintenance antibiotics. However appropriate prophylaxis should be undertaken if he should be undergoing any other procedure. Thank you for allowing me to participate in the care of your patient. 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 Chronic systolic congestive heart failure I50.22 Heart failure type: systolic Paroxysmal atrial fibrillation I48.0 Atrial fibrillation type: paroxysmal Essential hypertension I10 Hypertension type: essential hypertension History of acute bacterial endocarditis Z86.79 Coding Level of Care Code Off vis,est,level 4 Diagnoses 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 Chronic systolic congestive heart failure I50.22 Heart failure type: systolic Paroxysmal atrial fibrillation I48.0 Atrial fibrillation type: paroxysmal Essential hypertension I10 Hypertension type: essential hypertension History of acute bacterial endocarditis Z86.79 10/09/17 1044 <Electronically signed by Bunny Verdin MD> Date Bunny Verdin MD Cosigner Signature: Date (if applicable) CC: Corin Hernandez MD COMP METABOLIC PANEL Collected: 10/05/2017 Status: F Source: [place]AT[place] 11:22 AM [facility] REPOSITORY TYPE CODE TESTS RESULT OUT OF REFERENCE UNITS RANGE LAB TP 6.3-8.0 g/dL Protein, Total 7.3 LAB ALB 3.9-4.9 g/dL Albumin 4.2 LAB CA 8.5-10.2 mg/dL Calcium, Total 9.3 LAB TBIL 0.2-1.3 mg/dL Bilirubin, Total 0.4 LAB ALKP 36-108 U/L Alkaline Phosphatase 79 Result Comment: Results may be falsely decreased due to interference by hemolysis. Suggest reorder as clinically indicated. LAB AST 14-40 U/L High AST 66 Result Comment: Results may be falsely increased due to interference by hemolysis. Suggest reorder as clinically indicated. LAB GLU 74-99 mg/dL High Glucose 248 Result Comment: The [place] Diabetes Association (ADA) provides guidance for cutoff values for fasting glucose and random glucose. The ADA defines fasting as no caloric intake for at least 8 hours. Fas ting plasma glucose results between 100 to 125 mg/dL indicate increased risk for diabetes (prediabetes). Fasting plasma glucose results greater than or equal to 126 mg/dL meet the criteria for diagnosis of diabetes. In the absence of unequivocal hyperglycemia, results should be confirmed by repeat testing. In a patient with classic symptoms of hyperglycemia or hyperglycemic crisis, random plasma glucose results greater than or equal to 200 mg/dL meet the criteria for diagnosis of diabetes. Reference: Standards of Medical Care in Diabetes 2016, [place] [employer] Association. Diabetes Care. 2016.39(Suppl 1). LAB BUN 9-24 mg/dL BUN High 27 LAB CRET 0.73-1.22 mg/dL Creatinine High 1.47 LAB NA 136-144 mmol/L Sodium 140 LAB K 3.7-5.1 mmol/L Potassium High 5.4 Result Comment: Results may be falsely increased due to interference by hemolysis. Suggest reorder as clinically indicated. LAB CL 97-105 mmol/L Chloride 100 LAB CO2 22-30 mmol/L Low CO2 21 LAB AGAP 9-18 mmol/L Anion High Gap 19 LAB ALT 10-54 U/L ALT High 58 Result Comment: Results may be falsely increased due to interference by hemolysis. Suggest reorder as clinically indicated. LAB GFRAA eGFR- Amer. 56 LAB GFRNAA . eGFR-All Other Races 46 Result Comment: eGFR (Estimated GFR) Units of measure: mL/min/1.73 meters squared eGFR is derived from the reexpressed MDRD Study equation using the following parameters: serum creatinine, age, gender and race. The creatinine assay has been calibrated to be traceable to IDMS. An eGFR <60 mL/min/1.73m2 for >3 months is consistent with chronic kidney disease. Refer to KDOQI guidelines for clinical interpretation. In patients with unstable renal function, e.g. those with acute kidney injury, the eGFR may not accurately reflect actual GFR. Performed By: #### CMP #### [facility] [address] [place], [place] [address] XR ABDOMEN 3V KUB Observed: 10/05/2017 Status: F Source: YOUSUF W/OBLIQUES 10:46 AM [facility] REPOSITORY * * *Final Report* * * DATE OF EXAM: Oct 05 2017 10:46AM WRX [id number] - XR ABDOMEN 3V KUB W/OBLIQUES / PROCEDURE REASON: Calculus of kidney * * * * Physician Interpretation * * * * ABDOMEN, 3 VIEWS CLINICAL INFORMATION: Follow-up calculi. 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 Cluster of calculi in the LEFT kidney again seen. No calculus in the expected location of either ureter or the bladder. Bowel gas: No dilated loops. Degenerative changes in the spine. 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 Ultrasound 03/07/2016. TECHNIQUE: Sonography of the kidneys and urinary bladder was performed. Images were obtained and stored in a permanent archive. RESULT: Right Kidney: -Renal length: 15.5 cm. -Parenchyma: Renal parenchyma echogenicity is normal. -Cortical thickness: Normal. -No hydronephrosis. -Calculus: 2.4 cm lower pole calculus, previously measured 5 mm sonographically but known to be larger based on abdominal film and CT -Renal Lesion: 2.1 cm lower pole simple cyst, not seen previously. Left Kidney: -Renal length: 12.6 cm. -Cortical thickness: Normal. -No hydronephrosis. -Calculus: 3 mm interpolar calculus, many more were seen on the abdominal film. -Renal Lesion: Multiple simple cysts, largest in the upper pole measuring 3.1 cm and in the lower pole 2.9 cm Bladder: Normal sonographic appearance. Prevoid bladder volume = 233 cc Postvoid bladder volume = 99 cc IMPRESSION: BILATERAL RENAL CALCULI AND RENAL CYSTS Compression Molding Machine Operator: ADNOAY Transcribe Date/Time: Oct 05 2017 3:54P Dictated by : RACHNA HALEY MD This examination was interpreted and the report reviewed and electronically signed by: RACHNA HALEY MD on Oct 05 2017 3:57PM EST [id number] PROGRESS Observed: 10/05/2017 Status: COMPLETED Source: KATY 10:31 AM [facility] REPOSITORY HNO ID: [id number] Author: Shanna Isaac Service: (none) Author Type: (none) Type: Progress Notes Filed: 10/05/2017 10:47 AM Note Text: Radiology Service Progress Note PATIENT NAME: Rachna Mayes DATE OF SERVICE: October 05, 2017 TIME: 10:31 AM PATIENT IDENTITY VERIFICATION COMPLETED USING TWO (2) METHODS: Patient confirmed name verbally and Date of . PATIENT GENDER DATA: Male PATIENT RELEVANT IMPLANT DATA REVIEWED: Not Applicable RADIOLOGY DEPARTMENT: General X-ray: Exam(s) Completed: Abdomen X-Ray Abdomen with Obliques PERIPHERAL IV DATA: Not applicable SIGNED BY: Shanna Isaac October 05, 2017 10:31 AM PROGRESS Observed: 10/05/2017 Status: COMPLETED Source: KATY 9:43 AM [facility] REPOSITORY HNO ID: [id number] Author: Elisha Davis Service: (none) Author Type: (none) Type: Progress Notes Filed: 10/05/2017 10:35 AM Note Text: Radiology Service Progress Note PATIENT NAME: Rachna Mayes DATE OF SERVICE: October 05, 2017 TIME: 9:43 AM PATIENT IDENTITY VERIFICATION COMPLETED USING TWO (2) METHODS: Patient confirmed name verbally and Date of . PATIENT GENDER DATA: Male PATIENT RELEVANT IMPLANT DATA REVIEWED: Yes RADIOLOGY DEPARTMENT: Ultrasound PERIPHERAL IV DATA: Not applicable SIGNED BY: Elisha Davis October 05, 2017 9:43 AM ALLERGIES ALLERGIES DATE TYPE / CODE NAME / CODE REACTION SEVERITY SOURCE 08/09/2018 Drug LAURA cough [place] Allergy/416 Inhibitors/[id number] [facility] 952999(SNOM 147(RXNORM) [facility] ED CT) Repository 08/09/2018 Drug warfarin/[id number] bleeding under Unknown [place] Allergy/416 4(RXNORM) the skin Community 746255([facility] ED CT) Repository 08/09/2018 Drug adhesive Rash Unknown [place] Allergy/416 tape/P461251962(RX Community 478386([facility] ED [facility]) Repository 08/09/2018 Drug azithromycin/F0060 Other Unknown [place] Allergy/416 30619(RXNORM) Community 109377([facility] ED CT) Repository 08/09/2018 Drug enalapril/[id number] Shortness of [place] Allergy/416 00(RXNORM) breath Community 433407([facility] ED CT) Repository 08/09/2018 Drug levofloxacin/F0060 Other Unknown [place] Allergy/416 56549(RXNORM) Community 606391([facility] ED CT) Repository 01/23/2018 DRUG LATEX OTHER: SEE [facility]GREDI/[facility] [place] 554807(SNOM Repository ED CT) 01/07/2017 DRUG [facility]ACIN [facility] [place] 651603(SNOM Repository ED CT) 01/07/2017 DRUG AZITHROMYCIN OTHER: [facility] [place] 346149(SNOM Repository ED CT) 04/13/2015 [facility] [place] 748408(SNOM Repository ED CT) 02/10/2010 Environ/420 DUST MITES OTHER: SEE [facility] 743398(OM [place] ED CT) Repository 02/10/2010 DRUG/725206 MOLDS EXTRACT OTHER: SEE [facility] 003(SNOMED [facility] [place] CT) Repository 02/10/2010 Environ/420 DUST MITES [facility] 244838(SNOM [place] ED CT) Repository 02/10/2010 DRUG/702001 MOLDS EXTRACT [facility] 003(SNOMED [facility] [place] CT) Repository NG/33181726 DUST MITES [facility] Repository NG/18503429 ENALAPRIL [facility]) Repository NG/93481310 LATEX [facility]) Repository NG/30476527 LEVOFLOXACIN [facility]OM[facility]) Repository NG/21370254 MOLDS EXTRACT [facility]([place]) Repository NG/31778774 AZITHROMYCIN [facility]) Repository ENCOUNTERS ENCOUNTERS ADMIT/DISCHARGE ACCOUNT NUMBER ADMITTING ENCOUNTER LOCATION SOURCE CLASS 08/30/2018 [id number] [facility] ding:MRI Repository 08/14/2018/08/14/20 [id number] Ambulatory BMSBuilding: [place] 18 BMS.[facility] Repository 08/09/2018/08/09/20 [id number] Ambulatory BMSBuilding: [place] 18 BMS.[facility] Repository 08/06/2018 [id number] [facility] ding:MFPLAB Repository 06/19/2018 [id number] [facility] ding:CT Repository 05/23/2018/05/23/20 [id number] Ambulatory BMSBuilding: [place] 18 BMS.[facility] Repository 05/20/2018/05/20/20 [id number] Emergency [address] ding:ED Repository 05/15/2018 [id number] [facility] ding:LAB Repository 05/13/2018 [id number] [facility] ding:CT Repository 05/13/2018/05/13/20 [id number] Ambulatory BMSBuilding: [place] 18 BMS.[facility] Repository 05/13/2018 [id number] [facility] ding:LAB Repository 04/24/2018 [id number] [facility] ding:LAB Repository 04/04/2018/04/05/20 [id number] Emergency [address] ding:ED Repository 03/28/2018/03/28/20 [id number] Ambulatory [address] Repository 03/28/2018/03/28/20 [id number] Ambulatory [address] Repository 03/25/2018/03/25/20 [id number] Ambulatory [address] Repository 03/25/2018/03/25/20 [id number] Ambulatory [address] [place] Repository 03/01/2018 [id number] Ambulatory BMSBuilding: [facility] Repository 03/01/2018 [id number] [facility] ding:[facility] Repository 02/20/2018/02/21/20 [id number] Ambulatory BMSBuilding: [place] 18 BMS.[facility] Repository 02/19/2018 [id number] Ambulatory BMSBuilding: [facility] Repository 02/19/2018 [id number] [facility] ding:PSN Repository 02/13/2018/02/14/20 [id number] Ambulatory BMSBuilding: [place] 18 BMS.[facility] Repository 01/25/2018 [id number] [facility] ding:LABSPEC Repository 01/23/2018/01/24/20 [id number] Ambulatory [address] Other [place] Repository 01/23/2018/01/24/20 [id number] Ambulatory [address] MEDICAL Repository CENTERBuildi ng:AGCARDPHR A 01/22/2018/01/23/20 [id number] Ambulatory BMSBuilding: [place] 18 BMS.[facility] Repository 01/21/2018/01/22/20 [id number] Emergency [address] ding:ED Repository 01/15/2018 [id number] [facility] ding:LAB Repository 01/07/2018/01/08/20 [id number] Ambulatory BMSBuilding: [place] 18 BMS.[facility] Repository 12/31/2017/01/01/20 [id number] Ambulatory BMSBuilding: [place] 18 BMS.[facility] Repository 12/21/2017 [id number] [facility] ding:MFPLAB Repository 11/16/2017/11/17/19 [id number] Ambulatory BMSBuilding: [place] 18 BMS.[facility] Repository 11/15/2017 [id number] [facility] ding:LAB Repository 11/08/2017 [id number] [facility] ding:MTRAD Repository 11/03/2017/11/04/19 [id number] Ambulatory BMSBuilding: [place] 18 BMS.[facility] Repository 10/25/2017/10/26/19 [id number] Ambulatory BMSBuilding: [place] 18 BMS.[facility] Repository 10/11/2017/10/11/19 [id number] Ambulatory [address] Repository 10/11/2017 [id number] Ambulatory [facility] Repository 10/09/2017/10/09/19 [id number] Ambulatory BMSBuilding: [place] 18 BMS.[facility] Repository 10/07/2017 [id number] [facility] ding:CR Repository 10/05/2017/10/05/19 [id number] Ambulatory [address] Repository 10/05/2017/10/05/19 [id number] Ambulatory [address] Repository 10/05/2017/10/05/19 [id number] Ambulatory [address] Repository PAYERS PAYERS ENCOUNTER GUARANTOR PAYER SUBSCRIBER SOURCE 08/30/2018 RACHNA [id number] Primary RACHNA JENNINGS Insurance:MEDICARE BOGNERDOB: [address], PART A [facility] [id number] [address]Cxt: (330) Number: Repository [phone] [id number] Date:2018-08-19 08/30/2018 Secondary RACHNA Quesada Insurance:MAYCOLNAPolerlinday BOGMAVERICKDOB: [facility]ly [facility] Number: [id number] Hospital [id number] Repository Date:[id number], [place] [address]PA: 08/30/2018 Tertiary VENKATA Quesada Insurance:SELF PAY [facility] Number: Effective Repository Date:2018-08-19 08/14/2018 RACHNA NARANJO7 Primary RACHNA JENNINGS Insurance:MEDICARE BOGNERDOB: [address], PART A [facility] [id number] Ana Health Center [address]Wzy: (330) Number: Repository [id number] () [id number] Date:2018-05-23 08/14/2018 Secondary RACHNA Juárez [place] Insurance:CIGNAPolicy BOGNERDOB: Community Number: [id number] [facility] [id number] Repository Date:[id number], [place] [address]CY: 08/14/2018 Tertiary NOT GIVENUNK [place] Insurance:SELF PAY [facility]: Effective Repository Date:2018-08-14 08/09/2018 RACHNA Juárez [id number] Primary RACHNA Quesada [place] Insurance:MEDICARE BOGNERDOB: [address] [place] [facility] [id number] Ana Health Center [address]Fhv: (330) Number: Repository [phone] () [id number] Date:2017-10-09 08/09/2018 Secondary RACHNA P [place] Insurance:CIGNAPolicy BOGNERDOB: Community Number: [id number] Hospital [id number] Repository Date:[id number], [place] [address]YW: 08/09/2018 Tertiary NOT GIVENUNK Dipak Insurance:SELF PAY [facility] Number: Effective Repository Date:2018-02-13 08/06/2018 RACHNA Juárez [id number] Primary RACHNA Quesada [place] Insurance:MEDICARE BOGNERDOB: [address] [facility] [id number] Ana Health Center [address]Cfu: (330) Number: Repository [phone] () [id number] Date:2018-08-06 08/06/2018 Secondary RACHNA P Dipak Insurance:CIGNAPolicy BOGNERDOB: Community Number: [id number] Hospital [id number] Repository Date:3534-55-40IN [address]XSEGTYCYGFY, [place] [address]CD: 08/06/2018 Tertiary NOT GIVENUNK [place] Insurance:SELF PAY [facility] Number: Effective Repository Date:2018-08-06 06/19/2018 RACHNA Juárez [id number] Primary RACHNA JENNINGS Insurance:MEDICARE BOGNERDOB: [address] [facility] [id number] Ana Health Center [address]Lhm: (330) Number: Repository [phone] () [id number] Date:2018-06-12 06/19/2018 Secondary RACHNA Juárez [place] Insurance:CIGNAPolicy BOGNERDOB: Community Number: [id number] Hospital [id number] Repository Date:6514-54-28TT [address]DQNJVLOPPLQ, [place] [address]ZM: 06/19/2018 Tertiary NOT GIVENUNK [place] Insurance:SELF PAY [facility] Number: Effective Repository Date:2018-06-12 05/23/2018 RACHNA Juárez [id number] Primary RACHNA Quesada [place] Insurance:MEDICARE BOGNERDOB: [address] [facility] [id number] Ana Health Center [address]Imz: (330) Number: Repository [phone] () [id number] Date:2018-05-23 05/23/2018 Secondary RACHNA Juárez [place] Insurance:CIGNAPolicy BOGNERDOB: Community Number: [id number] Hospital [id number] Repository Date:8592-91-95EY [address]ZVPFZZTHQVI, [place] [address]GS: 05/23/2018 Tertiary NOT GIVENUNK [place] Insurance:SELF PAY [facility] Number: Effective Repository Date:2018-05-23 05/20/2018 RACHNA Juárez [id number] Primary RACHNA [place] Insurance:MEDICARE BOGNERDOB: [address] [facility] [id number] Ana Health Center [address]Ffm: (330) Number: Repository [phone] () [id number] Date:2018-05-20 05/20/2018 Secondary RACHNA P [place] Insurance:CIGNAPolicy BOGNERDOB: Community Number: [id number] Hospital [id number] Repository Date:2462-77-07RM [address]PENFDJFIAOZ, [place] [address]WB: 05/20/2018 Tertiary NOT GIVENUNK [place] Insurance:SELF PAY [facility] Number: Effective Repository Date:2018-05-20 05/15/2018 RACHNA MAYES2447 Primary RACHNA Marinoster [place] Insurance:MEDICARE BOGNERDOB: [address] [facility] [id number] Ana Health Center [address]Jjf: (330) Number: Repository [phone] () [id number] Date:2018-05-15 05/15/2018 Secondary RACHNA Juárez [place] Insurance:CIGNAPolicy BOGNERDOB: Community Number: [id number] Hospital [id number] Repository Date:1893-88-05FF [address]FGRRNFFHARD, [place] [address]NK: 05/15/2018 Tertiary NOT GIVENUNK [place] Insurance:SELF PAY [facility] Number: Effective Repository Date:2018-05-15 05/13/2018 RACHNA MAYES2447 Primary RACHNA Marinoster [place] Insurance:MEDICARE BOGNERDOB: [address] [facility] [id number] Ana Health Center [address]Nuj: (330) Number: Repository [phone] () [id number] Date:2018-05-13 05/13/2018 Secondary RACHNA Juárez [place] Insurance:CIGNAPolicy BOGNERDOB: Community Number: [id number] Hospital [id number] Repository Date:0729-40-47BD [address]UFKDVVGFRJB, [place] [address]HP: 05/13/2018 Tertiary NOT GIVENUNK [place] Insurance:SELF PAY [facility] Number: Effective Repository Date:2018-05-13 05/13/2018 RACHNA MAYES2447 Primary RACHNA Quesada [place] Insurance:MEDICARE BOGNERDOB: [address] [facility] [id number] Ana Health Center [address]Vxq: (330) Number: Repository [phone] () [id number] Date:2018-05-13 05/13/2018 Secondary RACHNA Quesada Insurance:CIGNAPolicy BOGNERDOB: Community Number: [id number] Hospital [id number] Repository Date:6570-73-59GK [address]QYMIQXCGXYC, [place] [address]YG: 05/13/2018 Tertiary NOT GIVENUNK [place] Insurance:SELF PAY [facility] Number: Effective Repository Date:2018-05-13 05/13/2018 RACHNA Juárez [id number] Primary RACHNA Quesada [place] Insurance:MEDICARE BOGNERDOB: [address] [facility] [id number] Ana Health Center [address]Gtw: (330) Number: Repository [phone] () [id number] Date:2018-05-13 05/13/2018 Secondary RACHNA Juárez [place] Insurance:CIGNAPolicy BOGNERDOB: Community Number: [id number] Hospital [id number] Repository Date:0610-53-51RT [address]OXKDSGCCNXX, [place] [address]VG: 05/13/2018 Tertiary NOT GIVENUNK [place] Insurance:SELF PAY [facility]: Effective Repository Date:2018-05-13 04/24/2018 RACHNA Juárez [id number] Primary RACHNA Quesada [place] Insurance:MEDICARE BOGNERDOB: [address] [facility] [id number] Ana Health Center [address]Nhl: (330) Number: Repository [phone] () [id number] Date:2018-04-24 04/24/2018 Secondary RACHNA Juárez [place] Insurance:CIGNAPolicy BOGNERDOB: Community Number: [id number] Hospital [id number] Repository Date:7736-13-82NB [address]BHURCKDMOMA, [place] [address]TQ: 04/24/2018 Tertiary NOT GIVENUNK [place] Insurance:SELF PAY [facility] Number: Effective Repository Date:2018-04-24 04/04/2018 RACHNA Juárez [id number] Primary RACHNA Franck MarinDipak [place] Insurance:MEDICARE BOGNERDOB: [address] [facility] [id number] Ana Health Center [address]Drk: (330) Number: Repository [phone] () [id number] Date:2018-04-04 04/04/2018 Secondary RACHNA P [place] Insurance:CIGNAPolicy BOGNERDOB: Community Number: [id number] Hospital [id number] Repository Date:0637-65-79HT [address]GMBRPMXGBUW, [place] [address]DH: 04/04/2018 Tertiary NOT GIVENUNK [place] Insurance:SELF PAY [facility] Number: Effective Repository Date:2018-04-04 03/01/2018 RACHNA Franck [id number] Primary RACHNA Juárez [place] Insurance:MEDICARE BOGNERDOB: [address] [facility] [id number] Ana Health Center [address]Jua: (330) Number: Repository [phone] () [id number] Date:2018-02-15 03/01/2018 Secondary RACHNA P [place] Insurance:CIGNAPolicy BOGNERDOB: Community Number: [id number] Hospital [id number] Repository Date:6669-23-53RS [address]VFWGMYZFOGY, [place] [address]XL: 03/01/2018 Tertiary NOT GIVENUNK [place] Insurance:SELF PAY [facility] Number: Effective Repository Date:2018-03-01 03/01/2018 RACHNA Juárez [id number] Primary RACHNA Marinoster [place] Insurance:MEDICARE BOGNERDOB: [address] [facility] [id number] Ana Health Center [address]Yvu: (330) Number: Repository [phone] () [id number] Date:2018-02-15 03/01/2018 Secondary RACHNA P [place] Insurance:CIGNAPolicy BOGNERDOB: Community Number: [id number] Hospital [id number] Repository Date:4629-63-45LA [address]CWHURMLKPKZ, [place] [address]QT: 03/01/2018 Tertiary NOT GIVENUNK [place] Insurance:SELF PAY [facility] Number: Effective Repository Date:2018-02-15 02/20/2018 RACHNA MAYES2447 Primary RACHNA Juárez [place] Insurance:MEDICARE BOGNERDOB: [address] [facility] [id number] Ana Health Center [address]Wfg: (330) Number: Repository [phone] () [id number] Date:2017-08-29 02/20/2018 Secondary RACHNA P Dipak Insurance:CIGNAPolicy BOGNERDOB: Community Number: [id number] Hospital [id number] Repository Date:7965-49-62KR [address]MQSXNBENAIK, [place] [address]FD: 02/20/2018 Tertiary NOT GIVENUNK [place] Insurance:SELF PAY [facility] Number: Effective Repository Date:2018-02-20 02/19/2018 RACHNA MAYES2447 Primary RACHNA Juárez Dip[place] Insurance:MEDICARE BOGNERDOB: [address] [facility] [id number] Ana Health Center [address]Jfp: (330) Number: Repository [phone] () [id number] Date:2018-02-15 02/19/2018 Secondary RACHNA P Dipak Insurance:CIGNAPolicy BOGNERDOB: Community Number: [id number] Hospital [id number] Repository Date:3894-87-25ZY [address]JBHBOIJKZLA, [place] [address]MA: 02/19/2018 Tertiary NOT GIVENUNK [place] Insurance:SELF PAY [facility] Number: Effective Repository Date:2018-02-19 02/19/2018 RACHNA MAYES2447 Primary RACHNA Marinoster [place] Insurance:MEDICARE BOGNERDOB: [address] [facility] [id number] Ana Health Center [address]Aql: (330) Number: Repository [phone] () [id number] Date:2018-02-15 02/19/2018 Secondary RACHNA Juárez [place] Insurance:CIGNAPolicy BOGNERDOB: Community Number: [id number] Hospital [id number] Repository Date:3796-55-98SV [address]EFQZGRJFZQO [place] [address]RV: 02/19/2018 Tertiary NOT GIVENUNK [place] Insurance:SELF PAY [facility] Number: Effective Repository Date:2018-02-15 02/13/2018 RACHNA Juárez [id number] Primary RACHNA Quesada [place] Insurance:MEDICARE BOGNERDOB: [facility] [id number] Number: Repository [phone]: 330) [id number] [phone] () Date:2018-02-12 02/13/2018 Secondary RACHNA P [place] Insurance:CIGNAPolicy BOGNERDOB: Community Number: [id number] Hospital [id number] Repository Date:1135-63-33DM [address]KXFAQXGIKEE [place] [address]UY: 02/13/2018 Tertiary NOT GIVENUNK [place] Insurance:SELF PAY [facility] Number: Effective Repository Date:2018-02-13 01/25/2018 RACHNA Juárez [id number] Primary RACHNA Quesada [place] Insurance:MEDICARE BOGNERDOB: Community [address], PART A [facility] [id number] Ana Health Center [address]Qos: Number: Repository [phone] [id number] () Date:2018-01-25 01/25/2018 Secondary RACHNA P [place] Insurance:CIGNAPolicy BOGNERDOB: Community Number: [id number] Hospital [id number] Repository Date:6166-90-88BX [address]MZVGSGEUNWW, [place] [address]BA: 01/25/2018 Tertiary NOT GIVENUNK [place] Insurance:SELF PAY [facility] Number: Effective Repository Date:2018-01-25 01/23/2018 RACHNA Juárez BOGMAVERICKDOB: Primary RACHNA [place] [facility] Insurance:MEDICARE A BOGNERDOB: [facility] Number: [id number] Repository [facility] [id number] [address] [place] [address] Date: [address]Ebg: () 01/23/2018 Secondary RACHNA [facility] Insurance:CIGNA BOGNERDOB: [facility] Number: [id number] Repository [id number] Date: 01/22/2018 RACHNA Franck [id number] Primary RACHNA JENNINGS Insurance:MEDICARE BOGNERDOB[facility] [id number] [place] [address]Tgm: Number: Repository [phone] [id number] (HP) Date:2018-01-22 01/22/2018 Secondary RACHNA Franck [place] Insurance:CIGNAPolicy BOGNERDOB: Community Number: [id number] Hospital [id number] Repository Date:3389-48-84LS [address]RKIAHVUFWKO, [place] [address]BQ: 01/22/2018 Tertiary NOT GIVENUNK [place] Insurance:SELF PAY [facility] Number: Effective Repository Date:2018-01-22 01/21/2018 RACHNA Franck [id number] Primary RACHNA Franck [place] Insurance:MEDICARE BOGNERDOB[facility] [id number] [place] [address]Rhv: Number: Repository [phone] [id number] (HP) Date:2018-01-21 01/21/2018 Secondary RACHNA Franck [place] Insurance:CIGNAPolicy BOGNERDOB: Community Number: [id number] Hospital [id number] Repository Date:7841-30-12RE [address]TIZJPIJEYNG, [place] [address]EK: 01/21/2018 Tertiary NOT GIVENUNK [place] Insurance:SELF PAY [facility] Number: Effective Repository Date:2018-01-21 01/15/2018 RACHNA Franck [id number] Primary RACHNA [place] Insurance:MEDICARE BOGNERDOB: [address] olic [id number] Ana Health Center [address]Nix: Number: Repository [phone] [id number] (HP) Date:2018-01-15 01/15/2018 Secondary RACHNA Franck [place] Insurance:CIGNAPolicy BOGNERDOB: Community Number: [id number] Hospital [id number] Repository Date:6821-93-62YD [address]TIFTEZLXCCY, [place] [address]PA: 01/15/2018 Tertiary NOT GIVENUNK [place] Insurance:SELF PAY [facility] Number: Effective Repository Date:2018-01-15 01/07/2018 RACHNA MAYES2447 Primary RACHNA Franck [place] Insurance:MEDICARE BOGNERDOB: [address] [facility] [id number] Ana Health Center [address]Fcf: Number: Repository [phone] [id number] (HP) Date:2018-01-07 01/07/2018 Secondary RACHNA Juárez [place] Insurance:CIGNAPolicy BOGNERDOB: Community Number: [id number] Hospital [id number] Repository Date:6988-56-83UQ [address]LXNKDQTWTXC, [place] [address]YW: 01/07/2018 Tertiary NOT GIVENUNK [place] Insurance:SELF PAY [facility] Number: Effective Repository Date:2018-01-07 12/31/2017 RACHNA MAYES2447 Primary RACHNA Franck [place] Insurance:MEDICARE BOGNERDOB: [address] [facility] [id number] Ana Health Center [address]Itm: Number: Repository [phone] [id number] (HP) Date:2017-12-31 12/31/2017 Secondary RACHNA Juárez [place] Insurance:CIGNAPolicy BOGNERDOB: Community Number: [id number] Hospital [id number] Repository Date:4118-32-50JJ [address]SKGDYPXUYXN, [place] [address]UR: 12/31/2017 Tertiary NOT GIVENUNK [place] Insurance:SELF PAY [facility] Number: Effective Repository Date:2017-12-31 12/21/2017 RACHNA MAYES2447 Primary RACHNA Marinoster [place] Insurance:MEDICARE BOGNERDOB: [address] A [facility] [id number] Ana Health Center [address]Ttl: Number: Repository [phone] [id number] () Date:2017-12-21 12/21/2017 Secondary RACHNA P [place] Insurance:CIGNAPolicy BOGNERDOB: Community Number: [id number] Hospital [id number] Repository Date:2392-38-04FS [address]ZQZVDKMDTUF, [place] [address]MN: 12/21/2017 Tertiary NOT GIVENUNK [place] Insurance:SELF PAY [facility] Number: Effective Repository Date:2017-12-21 11/16/2017 RACHNA MAYES2447 Primary RACHNA [place]oster [place] Insurance:MEDICARE BOGNERDOB: [address] A [facility] [id number] Ana Health Center [address]Vqs: Number: Repository [phone] [id number] () Date:2017-11-14 11/16/2017 Secondary RACHNA Juárez [place] Insurance:CIGNAPolicy BOGNERDOB: Community Number: [id number] Hospital [id number] Repository Date:6639-03-23TA [address]CERSSBRFZXU, [place] [address]JP: 11/16/2017 Tertiary NOT GIVENUNK [place] Insurance:SELF PAY [facility] Number: Effective Repository Date:2017-11-16 11/15/2017 RACHNA NARANJO7 Primary RACHNA [place]oster [place] Insurance:MEDICARE BOGNERDOB: [address] A [facility] [id number] Ana Health Center [address]Vjg: Number: Repository [phone] [id number] () Date:2017-11-15 11/15/2017 Secondary RACHNA Franck [place] Insurance:CIGNAPolicy BOGNERDOB: Community Number: [id number] Hospital [id number] Repository Date:4266-30-86ZC [address]XCCULIMRETV, [place] [address]JM: 11/15/2017 Tertiary NOT GIVENUNK [place] Insurance:SELF PAY [facility] Number: Effective Repository Date:2017-11-15 11/08/2017 RACHNA MAYES2447 Primary RACHNA P [place] Insurance:MEDICARE BOGNERDOB: [address] A [facility] [id number] Ana Health Center [address]Zjt: Number: Repository [phone] [id number] () Date:2017-11-08 11/08/2017 Secondary RACHNA P [place] Insurance:CIGNAPolicy BOGNERDOB: Community Number: [id number] Hospital [id number] Repository Date:6759-33-79AK [address]GXUKXTMWCKV, [place] [address]BC: 11/08/2017 Tertiary NOT GIVENUNK [place] Insurance:SELF PAY [facility] Number: Effective Repository Date:2017-11-08 11/03/2017 RACHNA MAYES2447 Primary RACHNA P Dipak [place] Insurance:MEDICARE BOGNERDOB: [address] A [facility] [id number] Ana Health Center [address]Fse: Number: Repository [phone] [id number] () Date:2017-11-03 11/03/2017 Secondary RACHNA P [place] Insurance:CIGNAPolicy BOGNERDOB: Community Number: [id number] Hospital [id number] Repository Date:3725-33-48FM [address]LKIEOGKOBYK, [place] [address]CN: 11/03/2017 Tertiary NOT GIVENUNK [place] Insurance:SELF PAY [facility] Number: Effective Repository Date:2017-11-03 10/25/2017 RACHNA Juárez [id number] Primary RACHNA Quesada [place] Insurance:MEDICARE BOGNERDOB: [address] A [facility] [id number] Ana Health Center [address]Aza: Number: Repository [phone] [id number] () Date:2017-10-25 10/25/2017 Secondary RACHNA Juárez [place] Insurance:CIGNAPolicy BOGNERDOB: Community Number: [id number] Hospital [id number] Repository Date:7698-98-74YL [address]AWGVSTRHCQP, [place] [address]IW: 10/25/2017 Tertiary NOT GIVENUNK [place] Insurance:SELF PAY [facility] Number: Effective Repository Date:2017-10-25 10/09/2017 RACHNA MAYES2447 Primary [place]NA [place] Insurance:MEDICARE BOGNERDOB: [address] PART A [facility] [id number] Ana Health Center [address]Bez: Number: Repository [phone] [id number] () Date:2017-08-02 10/09/2017 Secondary RACHNA Juárez [place] Insurance:CIGNAPolicy BOGNERDOB: Community Number: [id number] Hospital [id number] Repository Date:3777-50-37UP [address]LFJWPWNQPYL, [place] [address]GH: 10/09/2017 Tertiary NOT GIVENUNK [place] Insurance:SELF PAY [facility] Number: Effective Repository Date:2017-08-02 10/07/2017 Rachna Franck [id number] Primary Rachna Ques[place] Insurance:MEDICARE BognerDOB: [address] [facility] [id number] Ana Health Center [address]Tib: Number: Repository [phone] [id number] () Date:2003-09-27 10/07/2017 Secondary Rachna Quesada Insurance:Kenyatta Vila: [facility] Number: [id number] Hospital [id number] Repository Date:2053-34-07FT [address]LPHICYKUHRM, [place] [address]QN: 10/07/2017 Tertiary NOT GIVENADITYA [place]uesada Insurance:SELF PAY [facility] Number: Effective Repository Date:2017-09-27
== END ==
PROVIDERS: Family Provider Family Medicine; PCP Family Medicine; Visit Provider Family Medicine
DX: I25.10 Atherosclerotic heart disease of native coronary artery without angina pectoris (principal); E03.9 Hypothyroidism, unspecified; E11.51 Type 2 diabetes mellitus with diabetic peripheral angiopathy without gangrene
CPT/HCPCS: 36415; 80053; 83036; 84443; 85025

== ENCOUNTER → 2018-08-30 12:11 | Outpatient (CLI) | payer MEDICARE, OTHER, SELFPAY ==
[2018-08-09 14:10] VITALS: BMI 28.3
--- NOTE | 2018-08-30 12:45 | MRI_ITS ---
STUDY: MRI RIGHT KNEE REASON FOR EXAM: Right knee pain. TECHNIQUE: Standardized fat and water weighted pulse sequences were obtained in all 3 orthogonal planes. COMPARISON: Radiographs 01/21/2018. FINDINGS: There is a flap tear of the medial meniscus with a displaced fragment at the superior aspect of the anterior body of the medial meniscus (T2 coronal images 16, 17; T2 sagittal image 21). There is mild arthrosis of the medial femorotibial compartment with mild partial-thickness chondral loss of the posterior mesial aspect of the medial femoral condyle (T2 sagittal image 17). Normal medial femoral condyle and tibial plateau. Normal medial collateral ligamentous complex (MCL). Normal distal semimembranosus, gracilis and semitendinosus tendons. There is an oblique tear of the inferior articular surface of the posterior horn of the lateral meniscus (proton-density sagittal images 9-13). There is a small subchondral lesion of the lateral tibial plateau (T2 coronal images 13, 14). Normal proximal tibiofibular articulation. Normal lateral collateral (fibular) ligament. Normal popliteus tendon. Normal biceps femoris tendon. Normal anterior cruciate ligament (ACL). Normal posterior cruciate ligament (PCL). Normal congruent patellofemoral articulation. There is intermediate grade chondromalacia of the medial patellar facet (T2 axial image 10) and subchondral cystic change of the patella. Normal medial and lateral patellar retinaculum. Normal visualized quadriceps tendon. Normal patellar tendon. Normal Hoffa's fat pad. There is a moderate-sized joint effusion. There is a small popliteal cyst (T2 sagittal images 16-19) with mild extravasation of fluid. The otherwise visualized osseous structures are unremarkable. MRI/Lower Ext Joint Only (Routine) IMPRESSION: Medial meniscal tear. Lateral meniscal tear. 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 Small subchondral lesion of the lateral tibial plateau. Joint effusion. Small popliteal cyst with mild extravasation of fluid. Electronically Signed: Grover lAba MD at 14:08 EST Tel , Service support ,
== END ==
PROVIDERS: Family Provider Family Medicine; PCP Family Medicine; Referring Provider Specialist; Visit Provider Specialist
DX: M17.11 Unilateral primary osteoarthritis, right knee (principal); M25.461 Effusion, right knee
CPT/HCPCS: 73721

== ENCOUNTER → 2018-10-22 11:18 | Outpatient (CLI) | payer MEDICARE, OTHER, SELFPAY ==
[2018-08-09 14:10] VITALS: BMI 28.3
[2018-10-22 12:58] LABS: Hemoglobin A1c 7.6 % (4.2-6.3)
[2018-10-22 14:22] LABS: ALB/GLOB Ratio 1.1 RATIO (0.9-2.4); AST(SGOT) 19 U/L (15-37); Alanine Aminotransfer ALT/SGPT 22 U/L (16-61); Albumin, Serum 3.4 g/dL (3.2-5.0); Alkaline Phosphatase 78 U/L (45-117); Anion Gap 6 (5-15); BUN 20 mg/dL (7-18); BUN/Creat Ratio 13.2 RATIO (10-20); Calcium,Total 8.4 mg/dL (8.5-10.1); Chloride 105 mmol/L (98-107); Creatinine, Serum 1.52 mg/dL (0.70-1.30); EST Glomerular Filtration Rate 47 mL/min (>60); Est Glom Filt Rate - Afr Amer 57 mL/min (>60); Globulin 3.2 g/dL (2.2-4.2); Glucose 252 mg/dL (74-106); Potassium 3.6 mmol/L (3.5-5.1); Protein, Total 6.6 g/dL (6.4-8.2); Sodium Level 139 mmol/L (136-145); T4 Free Direct 1.22 ng/dL (0.76-1.46); Thyroid Stim Hormone (TSH) 0.48 uIU/mL (0.358-3.74)
== END ==
PROVIDERS: Family Provider Family Medicine; PCP Family Medicine; Referring Provider Internal Medicine Endocrinology, Diabetes & Metabolism; Visit Provider Internal Medicine Endocrinology, Diabetes & Metabolism
DX: E55.9 Vitamin D deficiency, unspecified (principal); E03.9 Hypothyroidism, unspecified; E11.65 Type 2 diabetes mellitus with hyperglycemia
CPT/HCPCS: 36415; 80053; 83036; 84436; 84439; 84443

== ENCOUNTER → 2018-11-13 15:45 | Outpatient (CLI) | payer MEDICARE, OTHER, SELFPAY ==
[2018-11-13 14:47] VITALS: BMI 28.8
--- NOTE | 2018-11-13 16:10 | RAD_ITS ---
HISTORY: cough for a couple weeks EXAM: XR Chest 2 Views: COMPARISON: 11/08/17 CXR FINDINGS: LINES/DEVICES: Stimulator left lateral chest with lead extending into the presternal region unchanged. LUNGS: Radiographically clear. No consolidation, edema or effusion. No pneumothorax. MEDIASTINUM AND CARDIOVASCULAR STRUCTURES: Cardiac silhouette mildly enlarged. Central airways and mediastinal contour are unremarkable. Sternotomy wires and mediastinal surgical clips again demonstrated. BONES AND SOFT TISSUES: Unremarkable. RAD/Chest PA and Lateral IMPRESSION: Mild cardiomegaly. No radiographic evidence of acute cardiopulmonary disease. at 0455 Reported and signed by: Hiram Urbina MD Electronically Signed: Hiram Urbina, at 4:54 EDT Tel , Service support ,
[2018-11-13 17:33] LABS: Absolute Lymphocyte Count 0.81 X10^3/ul (0.83-4.51); Absolute Neutrophil Count 4.9 X10^3/uL (2.0-7.7); Basophil# 0.02 X10^3/uL; Basophil% 0.3 % (0-1); Eosinophils% 1.5 % (0-5); Hematocrit 39.7 % (40-54); Hemoglobin 12.4 g/dl (13.0-16.5); Lymphocyte # 0.81 X10^3/ul (4.0); Lymphocyte % 12.5 % (19-41); Mean Corp Hgb Conc 31.2 g/gl (32-36); Mean Corpuscular Hgb 30.8 pg (27.0-32.0); Mean Corpuscular Volume 98.8 fL (80-94); Mean Platelet Vol. 9.8 fl (6.2-12.0); Monocyte# 0.65 X10^3/uL; Neutrophil # 4.87 X10^3/uL (2.7-7.7); Neutrophil % 75.4 % (47-70); Platelet Count 164 K/mm3 (150-450); RBC Distribution Width CV 13.7 % (11.6-14.6); RBC Distribution Width SD 47.8 fl (35.1-43.9); Red Blood Count 4.02 M/mm3 (4.6-6.2); White Blood Count 6.5 K/mm3 (4.4-11.0)
[2018-11-13 17:50] LABS: POSITIVE COUNT NO; POSITIVE DIFFERENTIAL NO; POSITIVE MORPHOLOGY NO
[2018-11-13 18:08] LABS: BNP,B-Type NATRIURETIC PEPTIDE 80.6 pg/mL (0-100)
== END ==
PROVIDERS: Family Provider Family Medicine; PCP Family Medicine; Referring Provider Physician Assistant Medical; Visit Provider Physician Assistant Medical
DX: I50.22 Chronic systolic (congestive) heart failure (principal); R53.83 Other fatigue; R05 Cough
CPT/HCPCS: 36415; 71046; 83880; 85025

== ENCOUNTER → 2019-01-14 12:42 | Outpatient (CLI) | payer MEDICARE, OTHER, SELFPAY ==
[2018-12-16 12:55] VITALS: BMI 28.5
[2019-01-14 14:00] LABS: Absolute Lymphocyte Count 0.96 X10^3/ul (0.83-4.51); Absolute Neutrophil Count 5.6 X10^3/uL (2.0-7.7); Basophil# 0.04 X10^3/uL; Basophil% 0.5 % (0-1); Eosinophil# 0.14 X10^3/uL; Eosinophils% 1.9 % (0-5); Hematocrit 37.3 % (40-54); Hemoglobin 12.3 g/dl (13.0-16.5); Lymphocyte # 0.96 X10^3/ul (4.0); Lymphocyte % 12.8 % (19-41); Mean Corpuscular Hgb 30.6 pg (27.0-32.0); Mean Corpuscular Volume 92.8 fL (80-94); Mean Platelet Vol. 9.8 fl (6.2-12.0); Monocyte# 0.69 X10^3/uL; Monocyte% 9.2 % (0-10); Neutrophil # 5.63 X10^3/uL (2.7-7.7); Neutrophil % 75.3 % (47-70); Platelet Count 178 K/mm3 (150-450); RBC Distribution Width CV 13.4 % (11.6-14.6); RBC Distribution Width SD 44.5 fl (35.1-43.9); Red Blood Count 4.02 M/mm3 (4.6-6.2); White Blood Count 7.5 K/mm3 (4.4-11.0)
[2019-01-14 14:01] LABS: POSITIVE COUNT NO; POSITIVE DIFFERENTIAL NO; POSITIVE MORPHOLOGY NO
[2019-01-14 14:21] LABS: AST(SGOT) 21 U/L (15-37); Alanine Aminotransfer ALT/SGPT 28 U/L (16-61); Albumin, Serum 3.5 g/dL (3.2-5.0); Alkaline Phosphatase 90 U/L (45-117); Anion Gap 8 (5-15); BUN 20 mg/dL (7-18); BUN/Creat Ratio 14.3 RATIO (10-20); Chloride 109 mmol/L (98-107); EST Glomerular Filtration Rate 52 mL/min (>60); Est Glom Filt Rate - Afr Amer 63 mL/min (>60); Globulin 3.5 g/dL (2.2-4.2); Glucose 156 mg/dL (74-106); Potassium 4.1 mmol/L (3.5-5.1); Sodium Level 144 mmol/L (136-145)
== END ==
PROVIDERS: Family Provider Family Medicine; PCP Family Medicine; Referring Provider Family Medicine; Visit Provider Family Medicine
DX: E87.6 Hypokalemia (principal); R53.81 Other malaise; R53.83 Other fatigue
CPT/HCPCS: 36415; 80053; 85025

== ENCOUNTER → 2019-04-22 08:03 | Outpatient (CLI) | payer MEDICARE, OTHER, SELFPAY ==
[2019-04-17 12:46] VITALS: BMI 28.6
[2019-04-22 09:52] LABS: Hemoglobin A1c 7.3 % (4.2-6.3)
[2019-04-22 10:16] LABS: ALB/GLOB Ratio 0.9 RATIO (0.9-2.4); AST(SGOT) 13 U/L (15-37); Alanine Aminotransfer ALT/SGPT 23 U/L (16-61); Albumin, Serum 3.3 g/dL (3.2-5.0); Alkaline Phosphatase 88 U/L (45-117); Anion Gap 6 (5-15); BUN 25 mg/dL (7-18); BUN/Creat Ratio 15.1 RATIO (10-20); Calcium,Total 8.7 mg/dL (8.5-10.1); Chloride 108 mmol/L (98-107); Cholesterol 97 mg/dL (200); Creatinine, Serum 1.66 mg/dL (0.70-1.30); EST Glomerular Filtration Rate 43 mL/min (>60); Est Glom Filt Rate - Afr Amer 51 mL/min (>60); Globulin 3.6 g/dL (2.2-4.2); Glucose 140 mg/dL (74-106); High Density Lipoprotein 54 mg/dL; Potassium 3.8 mmol/L (3.5-5.1); Protein, Total 6.9 g/dL (6.4-8.2); Sodium Level 142 mmol/L (136-145); T4 Free Direct 1.22 ng/dL (0.76-1.46); Thyroid Stim Hormone (TSH) 0.86 uIU/mL (0.358-3.74); Triglycerides 90 mg/dL; Very Low Density Lipoprotein 18 mg/dL (5-40)
== END ==
PROVIDERS: Family Provider Family Medicine; PCP Family Medicine; Referring Provider Internal Medicine Endocrinology, Diabetes & Metabolism; Visit Provider Internal Medicine Endocrinology, Diabetes & Metabolism
DX: E03.9 Hypothyroidism, unspecified (principal); E11.65 Type 2 diabetes mellitus with hyperglycemia
CPT/HCPCS: 36415; 80053; 80061; 83036; 84439; 84443

== ENCOUNTER → 2019-05-08 12:35 | Outpatient (CLI) | payer MEDICARE, OTHER, SELFPAY ==
[2019-04-17 12:46] VITALS: BMI 28.6
--- NOTE | 2019-05-08 12:37 | ECHOCS_ITS ---
Reason For Study: S/P CABG Procedure This was a 2D Doppler, Color Flow transthoracic echocardiogram. The study was technically difficult. Contrast injection was performed. Exam performed in department. Left Ventricle Normal LV size. Moderate concentric left ventricular hypertrophy. Left ventricular systolic function is normal. The estimated ejection fraction is 55 %. Stage 2 diastolic dysfunction. No regional wall motion abnormalities noted. Right Ventricle Normal RV size. Normal systolic function. Atria Normal left atrium. Normal right atrium. Mitral Valve Bileaflet diffuse mitral valve thickening. Mild mitral valve prolapse. Mild (1+) mitral valve insufficiency. Tricuspid Valve Normal tricuspid valve. Mild tricuspid valve insufficiency. Pulmonary artery systolic pressure is 38 mmHg. Aortic Valve Trisinus/trileaflet aortic valve. Trivial aortic valve insufficiency. Pulmonic Valve Normal pulmonic valve. Great Vessels Normal aortic root. The pulmonary artery is normal size. Normal inferior vena cava. Pericardium/Pleural No pericardial effusion. Medication 22 gauge I.V. with prn adaptor inserted into right arm. Diluted definity 1.5ml given slow IV push to enhance endocardial definition. MMode/2D Measurements & Calculations LVIDd: 3.8 cm IVSd: 1.4 cm Ao root diam: 3.2 cm LVIDs: 2.6 cm LVPWd: 1.5 cm RVDd: 3.6 cm FS: 32.3 % LAV(MOD-bp): 85.0 ml LA A4 area: 20.7 cm2 LA dimension(2D): 6.1 cm LAV(MOD-bp) Indexed: 37.9 ml/m2 LAV(MOD-sp2): 95.8 ml LAV(MOD-sp4): 61.5 ml RA A4 area: 17.1 cm2 Time Measurements MV dec time: 0.29 sec Doppler Measurements & Calculations MV E max yunier: 78.0 cm/sec Lat Peak E' Yunier: 6.6 cm/sec Med Peak E' Yunier: 5.2 cm/sec MV A max yunier: 95.8 cm/sec E/E' lat: 11.9 E/E' med: 14.9 MV E/A: 0.81 Ao V2 max: 154.4 cm/sec LV V1 max: 100.9 cm/sec PA V2 max: 136.3 cm/sec Ao max P.5 mmHg LV V1 max P.1 mmHg PI end-d yunier: 114.4 cm/sec TR max yunier: 287.3 cm/sec TR max P.1 mmHg Interpretation Summary Normal LV size. Left ventricular systolic function is normal. Moderate concentric left ventricular hypertrophy. The estimated ejection fraction is 55 %. Stage 2 diastolic dysfunction. Pulmonary artery systolic pressure is 38 mmHg. Mild mitral valve prolapse. Contrast injection was performed. Compared to previous study, the left ventricular systolic function has improved.. Ordering Physician: Bunny Verdin Referring Physician: SHELIA VALENZUELA Performed By: Criss Chávez, RDCS, RVT
== END ==
PROVIDERS: Family Provider Family Medicine; PCP Family Medicine; Referring Provider Internal Medicine Cardiovascular Disease; Visit Provider Internal Medicine Cardiovascular Disease
DX: I25.5 Ischemic cardiomyopathy (principal)
CPT/HCPCS: 93306; Q9957; A4216; C8929

== ENCOUNTER 2019-05-28 13:00 | Outpatient (RCR) | payer MEDICARE, OTHER, SELFPAY ==
[2019-04-17 12:46] VITALS: BMI 28.6
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
--- NOTE | 2019-05-28 13:25 | HP.OTDCSUM_ITS ---
HP - OT D/C Summary It has been my pleasure to treat RACHNA MAYES under orders from Venkatesh Argueta MD, for the diagnosis of OA R hand for a total of 8 visit(s). Please see the following information for a summary of their discharge status. - Overall Improvement % Improvement: 90 - Objective Objective/Function: Pt's has trigger finger from PIP joint that pt states doesn't usually happen. Did not strengthen as much due to trigger finger. - Goals Patient Goals: Decrease Pain, Decrease Swelling/Stiffness, Use Hand/Wrist/Arm Normally Again, Increase ROM, Resume Former Household Responsibilities (Cooking,Cleaning,Yard, etc.) Goal:: Pt will progress w/ R IF PIP flexion from 78' to 85' and R IF MP joint flexion from 60' to 80' by d/c from OT services. Goal:: Pt will demo no pain greater than 1/10 with movement R digits 2-4 PIP joints. Goal:: Pt will be educated on R UE hand joint protection/energy conservation techniques w/ good demo and understanding 100%x Goal:: Pt will be educated on diagnosis and R hand HEP with good understanding and demo 100%x - Plan Plan: d/c OT POC - D/C Information Discharge Comments: Pt has made good progress with OT goals. Pt has been educated on joint protection/energy conservation for R hand OA. Pt educated on R UE HEP and modalities to use at home to assist with ROM and decrease pain. Pt has progressed with R IF PIP flexion to 95'. Pt demo no pain with rest/movement R hand. 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 Pt no longer requires skilled OT services. Pt demo good understanding of d/c. If there are questions or concerns regarding this patient's occupational therapy, please fell free to call me at [phone]. Thank you for the referral of this patient. Sincerely, Marlee Parnell
== END 2019-05-28 19:00 | disposition home or self-care (01) ==
LOC: OT 13:00
PROVIDERS: Family Provider Family Medicine; PCP Family Medicine; Referring Provider Specialist; Visit Provider Specialist
DX: M19.041 Primary osteoarthritis, right hand (principal)
CPT/HCPCS: 97110; 97140; 97165; 97166; 97530

== ENCOUNTER → 2019-06-24 11:46 | Outpatient (CLI) | payer MEDICARE, OTHER, SELFPAY ==
[2019-04-17 12:46] VITALS: BMI 28.6
--- NOTE | 2019-06-24 11:50 | RAD_ITS ---
HISTORY: asthma ADDITIONAL HISTORY: None provided. COMPARISON: 11/13/2018 TECHNIQUE: Frontal and lateral chest radiographs. Number of images including paperwork: 2 FINDINGS: LUNGS AND PLEURA: No consolidation, mass or pleural effusion. CARDIAC SILHOUETTE: Unremarkable. MEDIASTINUM AND DAVID: Unremarkable. UPPER ABDOMEN: Right upper quadrant surgical clips. SKELETON AND SOFT TISSUES: No acute findings. Degenerative changes. OTHER DEVICES AND HARDWARE: Subcutaneous ICD with left chest wall generator. Sternal wires and cardiac clips. RAD/Chest PA and Lateral IMPRESSION: No acute cardiopulmonary abnormality. at 0034 Reported and signed by: Riddhi Molina MD Electronically Signed: Riddhi Molina MD at 0:33 EDT Tel , Service support ,
[2019-06-25 16:08] LABS: Endomysial Antibody IgA Negative (Negative)
[2019-06-25 19:27] LABS: Deamidated Gliadin IgA 3 units (0-19); Deamidated Gliadin IgG 2 units (0-19); Immunoglobulin A 132 mg/dL (61-437); t-Transglutaminase IgA <2 U/mL (0-3)
== END ==
LOC: MTRAD 13:14 → LAB 13:16
PROVIDERS: Family Provider Family Medicine; PCP Family Medicine; Referring Provider Family Medicine; Visit Provider Family Medicine
DX: J45.909 Unspecified asthma, uncomplicated (principal); R19.7 Diarrhea, unspecified
CPT/HCPCS: 36415; 71046; 82784; 83516; 86255

== ENCOUNTER → 2019-06-26 07:18 | Outpatient (CLI) | payer MEDICARE, OTHER, SELFPAY ==
[2019-04-17 12:46] VITALS: BMI 28.6
[2019-06-26 08:51] LABS: AST(SGOT) 17 U/L (15-37); Alanine Aminotransfer ALT/SGPT 25 U/L (16-61); Albumin, Serum 3.5 g/dL (3.2-5.0); Alkaline Phosphatase 87 U/L (45-117); Bilirubin, Direct 0.14 mg/dL (0.00-0.30); Cholesterol 115 mg/dL (200); Globulin 3.3 g/dL (2.2-4.2); High Density Lipoprotein 58 mg/dL; Protein, Total 6.8 g/dL (6.4-8.2); Triglycerides 113 mg/dL; Very Low Density Lipoprotein 23 mg/dL (5-40)
== END ==
PROVIDERS: Family Provider Family Medicine; PCP Family Medicine; Referring Provider Internal Medicine Cardiovascular Disease; Visit Provider Internal Medicine Cardiovascular Disease
DX: E78.00 Pure hypercholesterolemia, unspecified (principal); I48.0 Paroxysmal atrial fibrillation; I25.5 Ischemic cardiomyopathy; I10 Essential (primary) hypertension; I50.22 Chronic systolic (congestive) heart failure; I25.10 Atherosclerotic heart disease of native coronary artery without angina pectoris; I44.7 Left bundle-branch block, unspecified; E78.5 Hyperlipidemia, unspecified; Z95.1 Presence of aortocoronary bypass graft
CPT/HCPCS: 36415; 80061; 80076

== ENCOUNTER → 2019-07-29 07:16 | Outpatient (CLI) | payer MEDICARE, OTHER, SELFPAY ==
[2019-04-17 12:46] VITALS: BMI 28.6
[2019-07-29 08:49] LABS: Hemoglobin A1c 7.2 % (4.2-6.3)
[2019-07-29 09:10] LABS: ALB/GLOB Ratio 1.1 RATIO (0.9-2.4); AST(SGOT) 15 U/L (15-37); Alanine Aminotransfer ALT/SGPT 21 U/L (16-61); Albumin, Serum 3.3 g/dL (3.2-5.0); Alkaline Phosphatase 87 U/L (45-117); Anion Gap 6 (5-15); BUN 17 mg/dL (7-18); BUN/Creat Ratio 12.6 RATIO (10-20); Calcium,Total 8.7 mg/dL (8.5-10.1); Chloride 108 mmol/L (98-107); Creatinine, Serum 1.35 mg/dL (0.70-1.30); EST Glomerular Filtration Rate 54 mL/min (>60); Est Glom Filt Rate - Afr Amer 65 mL/min (>60); Globulin 3.1 g/dL (2.2-4.2); Glucose 145 mg/dL (74-106); Potassium 3.5 mmol/L (3.5-5.1); Protein, Total 6.4 g/dL (6.4-8.2); Sodium Level 141 mmol/L (136-145); T4 Free Direct 1.24 ng/dL (0.76-1.46); Thyroid Stim Hormone (TSH) 0.62 uIU/mL (0.358-3.74)
== END ==
PROVIDERS: Family Provider Family Medicine; PCP Family Medicine; Referring Provider Internal Medicine Endocrinology, Diabetes & Metabolism; Visit Provider Internal Medicine Endocrinology, Diabetes & Metabolism
DX: E11.65 Type 2 diabetes mellitus with hyperglycemia (principal)
CPT/HCPCS: 36415; 80053; 83036; 84439; 84443

== ENCOUNTER → 2019-09-15 10:52 | Outpatient (CLI) | payer MEDICARE, OTHER, SELFPAY ==
[2019-04-17 12:46] VITALS: BMI 28.6
--- NOTE | 2019-09-15 10:58 | RAD_ITS ---
STUDY: X-RAY CHEST REASON FOR EXAM: Male, 78 years old. COUGH HX OF HEART SURGERY AND HAS A DEFIBRILLATOR. TECHNIQUE: PA and lateral views of the chest. COMPARISON: 06/24/2019 FINDINGS: The lungs are clear and expanded. There is no demonstrated pleural abnormality. Sternal cerclage wires are present from a prior sternotomy. Mild cardiomegaly. Single lead left-sided pacing device. Normal mediastinum and alon. Normal visualized pulmonary arteries. Normal visualized aortic arch and descending thoracic aorta. Normal visualized thoracic spine. Normal visualized ribs, clavicles, and shoulders. There is no demonstrated abnormality of the visualized soft tissue structures of the upper abdomen. RAD/Chest PA and Lateral IMPRESSION: Normal x-ray examination of the chest. Electronically Signed: Fausto Aguilar DO at 11:04 EST Tel , Service support ,
[2019-09-15 12:23] LABS: Absolute Lymphocyte Count 1.11 X10^3/uL (0.83-4.51); Absolute Neutrophil Count 10.4 X10^3/uL (2.0-7.7); Basophil# 0.03 X10^3/uL; Basophil% 0.2 % (0-1); Eosinophil# 0.03 X10^3/uL; Eosinophils% 0.2 % (0-5); Hematocrit 38.7 % (40-54); Hemoglobin 12.6 g/dL (13.0-16.5); Lymphocyte # 1.11 X10^3/ul (4.0); Lymphocyte % 9.1 % (19-41); Mean Corp Hgb Conc 32.6 g/dL (32-36); Mean Corpuscular Hgb 30.9 pg (27.0-32.0); Mean Corpuscular Volume 94.9 fL (80-94); Mean Platelet Vol. 9.7 fl (6.2-12.0); Monocyte# 0.48 X10^3/uL; Monocyte% 3.9 % (0-10); NRBC Flagged by Analyzer 0 % (0-5); Neutrophil # 10.42 X10^3/uL (2.7-7.7); Neutrophil % 85.8 % (47-70); Platelet Count 201 K/mm3 (150-450); RBC Distribution Width CV 13.8 % (11.6-14.6); RBC Distribution Width SD 47.6 fl (35.1-43.9); Red Blood Count 4.08 M/mm3 (4.6-6.2); White Blood Count 12.2 K/mm3 (4.4-11.0)
[2019-09-15 13:14] LABS: BNP,B-Type NATRIURETIC PEPTIDE 122.4 pg/mL (0-100)
== END ==
PROVIDERS: PCP Family Medicine; Referring Provider Family Medicine; Visit Provider Family Medicine
DX: R05 Cough (principal)
CPT/HCPCS: 36415; 71046; 83880; 85025

== ENCOUNTER → 2019-10-28 07:38 | Outpatient (CLI) | payer MEDICARE, OTHER, SELFPAY ==
[2019-04-17 12:46] VITALS: BMI 28.6
[2019-10-28 08:58] LABS: ALB/GLOB Ratio 1.1 RATIO (0.9-2.4); AST(SGOT) 19 U/L (15-37); Alanine Aminotransfer ALT/SGPT 25 U/L (16-61); Albumin, Serum 3.7 g/dL (3.2-5.0); Alkaline Phosphatase 75 U/L (45-117); Anion Gap 5 (5-15); BUN 27 mg/dL (7-18); BUN/Creat Ratio 19.1 RATIO (10-20); Chloride 107 mmol/L (98-107); Creatinine, Serum 1.41 mg/dL (0.70-1.30); EST Glomerular Filtration Rate 51 mL/min (>60); Est Glom Filt Rate - Afr Amer 62 mL/min (>60); Globulin 3.5 g/dL (2.2-4.2); Glucose 140 mg/dL (74-106); Potassium 3.9 mmol/L (3.5-5.1); Protein, Total 7.2 g/dL (6.4-8.2); Sodium Level 141 mmol/L (136-145); Thyroid Stim Hormone (TSH) 0.76 uIU/mL (0.358-3.74)
[2019-10-28 09:46] LABS: Hemoglobin A1c 7.6 % (4.2-6.3)
== END ==
PROVIDERS: PCP Family Medicine; Referring Provider Internal Medicine Endocrinology, Diabetes & Metabolism; Visit Provider Internal Medicine Endocrinology, Diabetes & Metabolism
DX: E03.9 Hypothyroidism, unspecified (principal); E11.65 Type 2 diabetes mellitus with hyperglycemia
CPT/HCPCS: 36415; 80053; 83036; 84443

== ENCOUNTER → 2020-01-26 09:05 | Outpatient (CLI) | payer MEDICARE, OTHER, SELFPAY ==
[2019-10-30 11:09] VITALS: BMI 27.6
[2020-01-26 12:43] LABS: ALB/GLOB Ratio 1.1 RATIO (0.9-2.4); AST(SGOT) 17 U/L (15-37); Alanine Aminotransfer ALT/SGPT 26 U/L (16-61); Albumin, Serum 3.5 g/dL (3.2-5.0); Alkaline Phosphatase 86 U/L (45-117); Anion Gap 6 (5-15); BUN 23 mg/dL (7-18); Calcium,Total 8.9 mg/dL (8.5-10.1); Chloride 105 mmol/L (98-107); Cholesterol 125 mg/dL (200); Creatinine, Serum 1.44 mg/dL (0.70-1.30); EST Glomerular Filtration Rate 50 mL/min (>60); Est Glom Filt Rate - Afr Amer 61 mL/min (>60); Globulin 3.3 g/dL (2.2-4.2); Glucose 106 mg/dL (74-106); High Density Lipoprotein 48 mg/dL; Potassium 3.8 mmol/L (3.5-5.1); Protein, Total 6.8 g/dL (6.4-8.2); Sodium Level 140 mmol/L (136-145); Thyroid Stim Hormone (TSH) 0.73 uIU/mL (0.358-3.74); Triglycerides 97 mg/dL; Very Low Density Lipoprotein 19 mg/dL (5-40)
[2020-01-26 13:42] LABS: Hemoglobin A1c 6.8 % (3.8-5.6)
[2020-01-26 14:50] LABS: AST(SGOT) 16 U/L (15-37); Alanine Aminotransfer ALT/SGPT 24 U/L (16-61); Albumin, Serum 3.5 g/dL (3.2-5.0); Alkaline Phosphatase 88 U/L (45-117); Bilirubin, Direct 0.15 mg/dL (0.00-0.30); Cholesterol 100 mg/dL (200); Globulin 3.4 g/dL (2.2-4.2); High Density Lipoprotein 48 mg/dL; Protein, Total 6.9 g/dL (6.4-8.2); Triglycerides 98 mg/dL; Very Low Density Lipoprotein 20 mg/dL (5-40)
== END ==
PROVIDERS: Internal Medicine Cardiovascular Disease; PCP Family Medicine; Referring Provider Internal Medicine Endocrinology, Diabetes & Metabolism; Visit Provider Internal Medicine Endocrinology, Diabetes & Metabolism
DX: E11.65 Type 2 diabetes mellitus with hyperglycemia (principal); E55.9 Vitamin D deficiency, unspecified
CPT/HCPCS: 36415; 80053; 80061; 80076; 82306; 83036; 84443

== ENCOUNTER 2020-03-20 22:28 | Observation (INO) | payer MEDICARE, OTHER, SELFPAY ==
[2019-10-30 11:09] VITALS: BMI 27.6
[2020-03-20 22:29] VITALS: BP 196/91; PULSE 80; RESP 18; TEMP 36.9; O2SAT 97; BMI 26.3
--- NOTE | 2020-03-20 22:53 | EKG12_ITS ---
Test Reason : CHEST PAIN Blood Pressure : / mmHG Vent. Rate : 083 BPM Atrial Rate : 083 BPM P-R Int : 240 ms QRS Dur : 154 ms QT Int : 422 ms P-R-T Axes : 080 032 073 degrees QTc Int : 495 ms Sinus rhythm with 1st degree A-V block Left bundle branch block Abnormal ECG Confirmed by CONNIE SPARKS, LOY ([id number]), art editor RICKI STARR ([id number]) on 03/22/2020 1:15:08 PM Referred By: SIENNA Confirmed By:LOY ROSALES MD
--- NOTE | 2020-03-20 22:54 | ED.VISSUMM ---
- ER Visit Summary Date of Service: 03/20/20 Chief Complaint: Chest pain History of Present Illness: The patient is a [address] Hernandez and Dr. Verdin. He reports that he has chest pain began at 730 this evening while he was at rest. Is a continuous pain that he cannot further describe. Zeta 10 at worst and 6 out of 10 currently. Is worsened by laying down. There is no change with exertion or deep breaths. Is relieved by nothing. Is been short of breath with this. There is no associated nausea, vomiting, or diaphoresis. There is no radiation of the pain. Physical Examination: Vitals: Stable. Afebrile. General: Well-nourished and well-developed. Head: Normocephalic atraumatic. Neck: Supple, no lymphadenopathy. No JVD. Nontender. Cardiovascular: Regular rate and rhythm. 2 out of 6 systolic murmur. Respiratory: No respiratory distress. Clear to auscultation bilaterally. Abdominal: Soft, nontender, nondistended, normal bowel sounds. No guarding, rebound, or peritoneal signs. Back: Nontender. Extremities: Nontender, no edema. Skin: Normal color, no rash. Neurologic: Alert and oriented ?3. Cranial nerves II through XII are intact. Normal strength and sensation. Psych: Normal affect. Test Results: EKG is sinus with a first-degree AV block and a left bundle branch block rate of 83. Nonspecific ST changes. Is unchanged from October 2018. Troponin is negative. Chem-7 shows a chloride of 112, BUN of 31, creatinine 1.72, glucose 114. CBC shows an H&H 11.0 and 34.1, stable neutrophils 72, and lymphocytes of 16. Clinical Impression(s) from Imaging Studies Chest X-Ray 03/20/20 23:37 IMPRESSION: No acute pulmonary findings. Electronically Signed: Morales Rojas MD at 0:03 EDT Tel , Service support , Emergency Department Course and Treatment: Patient was given aspirin and sublingual nitroglycerin. His pain resolved with sublingual nitro. He then had an inch of Nitropaste placed. He was nauseated was given Zofran IV. Treatment Plan: Patient was discussed with Dr. Adams. He will be admitted to the hospital for further evaluation and treatment. Disposition: Admitted in improved condition. Impression: 1. Chest pain. 2. TRACE score 5. 3. Coagulopathy on Eliquis. This note was generated with Minderest dictation software. It may contain incorrect words, spelling, and punctuation that were not noted in review of the chart prior to signing ED Disposition - Plan for ED Patient: Referrals: Corin Hernandez MD [Primary Care Provider] -
--- NOTE | 2020-03-20 23:02 | ED.RN ---
daughter jaren called and updated on condition
[2020-03-20 23:09] VITALS: BP 187/79; PULSE 74; RESP 16; O2SAT 98
[2020-03-20 23:20] VITALS: BP 187/79; PULSE 74
[2020-03-20] MEDS: Aspirin 81 MG TAB.CHEW 324 MG PO (23:20)
[2020-03-20] MEDS: Nitroglycerin SL (ED/IMG/CATH) 0.4 MG TABLET SUBLINGUAL ×2 (23:20→23:26)
[2020-03-20 23:26] VITALS: BP 166/69; PULSE 75
[2020-03-20] MEDS: 0.9% Normal Saline 1,000 ML 150 ML IV (23:30)
[2020-03-20 23:36] LABS: Absolute Neutrophil Count 6.9 X10^3/uL (2.0-7.7); Basophil# 0.04 X10^3/uL; Basophil% 0.4 % (0-1); Eosinophil# 0.17 X10^3/uL; Eosinophils% 1.8 % (0-5); Hematocrit 34.1 % (40-54); Lymphocyte % 15.5 % (19-41); Mean Corp Hgb Conc 32.3 g/dL (32-36); Mean Corpuscular Hgb 30.7 pg (27.0-32.0); Mean Corpuscular Volume 95.3 fL (80-94); Mean Platelet Vol. 9.5 fl (6.2-12.0); Monocyte# 0.96 X10^3/uL; Monocyte% 9.9 % (0-10); NRBC Flagged by Analyzer 0 % (0-5); Neutrophil # 6.94 X10^3/uL (2.7-7.7); Platelet Count 188 K/mm3 (150-450); RBC Distribution Width CV 13.6 % (11.6-14.6); RBC Distribution Width SD 46.7 fl (35.1-43.9); Red Blood Count 3.58 M/mm3 (4.6-6.2); White Blood Count 9.7 K/mm3 (4.4-11.0)
--- NOTE | 2020-03-20 23:37 | RAD_ITS ---
STUDY: X-RAY CHEST REASON FOR EXAM: Male, 79 years old. chest pain x 4 hours. hx of htn. TECHNIQUE: Single frontal view of the chest. COMPARISON: 09-15-19 FINDINGS: Stable electronic device on the left. Median sternotomy wires and CABG clips. Atrial clip. The lungs are clear and expanded. There is no demonstrated pleural abnormality. Normal size heart. Normal mediastinum and alon. Normal visualized pulmonary arteries. Normal visualized aortic arch and descending thoracic aorta. Normal visualized thoracic spine. Normal visualized ribs, clavicles, and shoulders. There is no demonstrated abnormality of the visualized soft tissue structures of the upper abdomen. RAD/Chest 1 View (Portable) IMPRESSION: No acute pulmonary findings. Electronically Signed: Morales Rojas MD at 0:03 EDT Tel , Service support ,
[2020-03-20 23:59] LABS: Anion Gap 5 (5-15); BUN 31 mg/dL (7-18); Calcium,Total 8.8 mg/dL (8.5-10.1); Chloride 112 mmol/L (98-107); Creatinine, Serum 1.72 mg/dL (0.70-1.30); EST Glomerular Filtration Rate 41 mL/min (>60); Est Glom Filt Rate - Afr Amer 49 mL/min (>60); Estimated Creatinine Clearance 39.16 ml/min; Glucose 114 mg/dL (74-106); Potassium 3.7 mmol/L (3.5-5.1); Sodium Level 145 mmol/L (136-145)
[2020-03-21] VITALS (21 sets, daily range): BP systolic 148–195; BP diastolic 57–86; PULSE 73–92; RESP 15–18; TEMP 36.4–37.1; O2SAT 94–98; BMI 26.3; BMI 27.0
[2020-03-21] MEDS: Nitroglycerin Oint 1 INCH PACKET TRANSDERM. ×2 (00:27→05:35)
[2020-03-21] MEDS: Ondansetron 4 MG/2 ML Vial IV (00:27)
--- NOTE | 2020-03-21 00:30 | HP.PCM_ITS ---
Problem List (1) Chest pain Status: Acute (2) Paroxysmal atrial fibrillation Status: Chronic (3) Ischemic cardiomyopathy Status: Chronic (4) History of implantable cardiac defibrillator (ICD) Status: Chronic Comment: ICD Implant for out of hospital V. 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 transplanted heart: circle heart Qualified Code(s): I25.10 - Atherosclerotic heart disease of circle coronary artery without angina pectoris Comment: CABG x 2 FAY to LAD, reverse SVG to OM(FAY graft off the antunez of the SVG to the OM as a free graft); left atrial appendage clipped 04/27/17 (8) Left bundle branch block Status: Chronic (9) HLD (hyperlipidemia) Status: Chronic Qualifiers: Hyperlipidemia type: pure hypercholesterolemia Qualified Code(s): E78.00 - Pure hypercholesterolemia, unspecified; E78.0 - Pure hypercholesterolemia History of Present Illness Date of Admission: 03/21/20 Chief Complaint: CHEST PAIN The patient is a 79 year old M with a significant history of CAD status post CABG; cardiac arrest; hypertension; type 2 diabetes who presents emergency department with right-sided chest pain that started few hours before presentation. He describes his chest pain as just flat. His chest pain severity is 8 out of 10. His chest pain radiated to his right abdomen. He denies any ameliorating factors. He was given nitroglycerin sublingual while that momentarily improve his chest pain. He reports nausea without vomiting. He had nausea after he he has been given nitroglycerin. He denies diaphoresis. EKG emergency department showed left bundle branch block with sinus rhythm first-degree AV block. Chest x-ray was unremarkable. Possibly his blood pressure at home was elevated. His blood pressure was 202/190. Repeat blood pressure at home was 199/84. 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 Past Medical History Past Medical History (Chronic Problems): Chronic Problems (Last Reviewed 03/21/20 @ 01:[address] Douglas Adams MD) Paroxysmal atrial fibrillation (Chronic) Ischemic cardiomyopathy (Chronic) History of implantable cardiac defibrillator (ICD) (Chronic 01/31/16) ICD Implant for out of hospital V. Fib cardiac arrest 07/2015; Transvenous ICD system removed for enterococcus faecalis 10/2015, Subcutaneous ICD implanted 01/31/2016 Essential (primary) hypertension (Chronic) Chronic systolic (congestive) heart failure (Chronic) Atherosclerotic heart disease of circle coronary artery without angina pectoris (Chronic) CABG x 2 FAY to LAD, reverse SVG to OM(FAY graft off the antunez of the SVG to the OM as a free graft); left atrial appendage clipped 04/27/17 Left bundle branch block (Chronic) HLD (hyperlipidemia) (Chronic) Medical History: Medical History (Last Reviewed 03/21/20 @ 01:[address] Douglas Adams MD) Paroxysmal atrial fibrillation (Chronic) I48.0 Ischemic cardiomyopathy (Chronic) I25.5 Essential (primary) hypertension (Chronic) I10 Chronic systolic (congestive) heart failure (Chronic) I50.22 Atherosclerotic heart disease of circle coronary artery without angina pectoris (Chronic) I25.10 CABG x 2 FAY to LAD, reverse SVG to OM(FAY graft off the antunez of the SVG to the OM as a free graft); left atrial appendage clipped 04/27/17 Left bundle branch block (Chronic) I44.7 HLD (hyperlipidemia) (Chronic) E78.5 Postoperative atrial fibrillation I97.89, I48.91 Post op atrial fib-flutter DCCV 04/2017 Anemia D64.9 Bilateral carotid bruits R09.89 Hypokalemia E87.6 Hypothyroidism E03.9 Infection and inflammatory reaction due to other cardiac and vascular devices, implants and grafts, initial encounter T82.7XXA Iron deficiency E61.1 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 Allergies LAURA Inhibitors Adverse Reaction (Intermediate, Verified 03/20/20 22:31) cough enalapril Adverse Reaction (Intermediate, Verified 03/20/20 22:31) Shortness of breath adhesive tape Adverse Reaction (Verified 03/20/20 22:31) rash azithromycin [From Zithromax Z-Robert] Adverse Reaction (Verified 03/20/20 22:31) Other levofloxacin [From Levaquin] Adverse Reaction (Verified 03/20/20 22:31) Other warfarin [From Coumadin] Adverse Reaction (Verified 03/20/20 22:31) bleeding under the skin Home Medications: Ambulatory Orders Medication Instructions Recorded Ascorbic Acid [Vitamin C] 1,000 mg PO DAILY 05/20/18 Budesonide/Formoterol 160/4.5 2 puff INHALATION BID 05/20/18 [Symbicort 160/4.5 Mcg Inhaler (SP)] Calcium Carbonate [Calcium] 600 mg PO BID 05/20/18 Cholecalciferol (Vitamin D3) 1,000 unit PO BID 05/20/18 [Vitamin D3] Ferrous Gluconate 325 mg PO BIDCM 05/20/18 Fluticasone Furoate [Arnuity 50 mcg IH BID 05/20/18 Ellipta] Insulin Aspart [Novolog Flexpen 6 units SUBCUT LUNCH 05/20/18 ([facility])] Insulin Aspart [Novolog Flexpen 12 units SUBCUT BREAKFAST 05/20/18 ([facility])] Insulin Aspart [Novolog Flexpen 12 units SUBCUT DINNER 05/20/18 ([facility])] L.acidoph,Paracasei, B.lactis 1 ea PO BID 05/20/18 [Probiotic] Levothyroxine [Synthroid] 100 mcg PO DAILY 05/20/18 Levothyroxine [Synthroid] 200 mcg PO JARVIS 05/20/18 Magnesium 400 mg PO BID 05/20/18 Multivitamin [Multiple Vitamins] 1 ea PO DAILY 05/20/18 [place]-3 Fatty Acids/Fish Oil 1 ea PO DAILY 05/20/18 [[place] 3 1,000 mg Softgel] Tiotropium [place] [Spiriva] 18 mcg IH QHS 05/20/18 apixaban 5 mg tablet 2.5 mg PO BID tab 11/13/18 atorvastatin 10 mg tablet 10 mg PO QHS #90 tab 07/09/19 carvedilol 25 mg tablet 25 mg PO BID #180 tab 11/10/19 furosemide 40 mg tablet 40 mg PO DAILY #90 tab 12/01/19 losartan 50 mg tablet 50 mg PO BID #180 tab 12/01/19 Metformin HCl [Metformin HCl ER] 500 mg PO DINNER 03/21/20 Surgical History: Surgical History (Last Reviewed 03/21/20 @ 01:[address] Douglas Adams MD) History of implantable cardiac defibrillator (ICD) (Chronic) Onset Date: 01/31/16 ICD Implant for out of hospital V. Fib cardiac arrest 07/2015; Transvenous ICD system removed for enterococcus faecalis 10/2015, Subcutaneous ICD implanted 01/31/2016 H/O coronary artery bypass surgery (Resolved) Onset Date: 04/27/17 Z95.1 CABG x 2 FAY to LAD, reverse SVG to OM(FAY graft off the antunez of the SVG to the OM as a free graft); left atrial appendage clipped 04/27/17 History of left heart catheterization Z98.890 02/01/1999@ [facility]; Right AND left heart cath August 2008 and 06/2015; 03/22/17 with subsequent IVUS and FFR History of cardioversion Onset Date: 04/2017 Z98.890 Post op atrial fib-flutter DCCV 04/2017 ICD (implantable cardioverter-defibrillator) infection (Resolved) T82.7XXA Surgical History: cholecystectomy, - - ICD implantable device, prostate surgery. She had an industrial accident in the where all but his thumb was removed from his left hand. Psychiatric History: No pertinent psych hx Smoking Status: Never smoker - *Family History Maternal Family History: Family History (Last Reviewed 03/21/20 @ 01:[address] Douglas Adams MD) Father Peritonitis Mother CVA (cerebral vascular accident) Paternal Family History: Family History (Last Reviewed 03/21/20 @ 01:[address] Douglas Adams MD) Father Peritonitis Mother CVA (cerebral vascular accident) History Items: Heart Disease Review of Systems Constitutional: Denies: Chills, Fever, Weight Change HEENT: Denies: Sinus Congestion, Sinus Drainage Cardiovascular: Reports: Chest Pain. Denies: Palpitations Respiratory: Denies: Cough, Shortness of breath at rest, Sputum production Gastrointestinal: Reports: Nausea. Denies: Abdominal Pain, Vomiting Genitourinary: Denies: Dysuria Musculoskeletal: Denies: Joint Pain, Joint Tenderness Skin: Denies: Rash, Wounds Neurological: Denies: Numbness, Tingling, Focal weakness Psychiatric: Denies: Anxiety, Depression, Homicidal Ideations, Suicidal Ideations Hematologic/ Lymphatic: Denies: Easy Bruising, Easy Bleeding VTE Information - Inpt Only VTE Present on Admission: No VTE Mechan Device Prophylaxis: None VTE Pharm Prophylaxis ordered?: No Reason prophylaxis not ordered:: Treatment Not Indicated - On home Eliquis for A. fib, continued. Patient Problems: Active and Suspected Problems (Last Reviewed 03/21/20 @ 01:[address] Douglas Adams MD) Chest pain (Acute) - Physical Exam Vitals/I&O's: Vital Signs Temp Pulse Resp BP Pulse Ox 98.4 F 81 18 184/86 H 97 03/20/20 22:29 03/21/20 00:27 03/21/20 00:19 03/21/20 00:27 03/21/20 00:19 Oxygen Delivery Method Room Air Weight: 92.986 kg Body Mass Index (BMI) 26.3 Finger Stick Blood Glucose 100 General: Alert, Oriented x3, Cooperative HEENT: Atraumatic, PERRLA, EOMI, Normocephalic Neck: Supple, Trachea Midline Lungs: Clear to auscultation, Normal air movement Cardiovascular: Regular rate, No murmurs Abdomen: Bowel Sounds Present, Soft, Non Tender Extremities: No edema, Capillary Refill Less than 3 Seconds Skin: No rashes, No breakdown Musculoskeletal: No Tenderness to Palpation of Joints or Extremities Neurological: Cranial nerves II-XII grossly intact Psych/Mental Status: Normal Affect, Appropriate Laboratory Results 03/20/20 23:30: WBC 9.7, RBC 3.58 L, Hgb 11.0 L, Hct 34.1 L, MCV 95.3 H, MCH 3 0.7, MCHC 32.3, RDW Std Deviation 46.7 H, RDW Coeff of Harrison 13.6, Plt Count 188, MPV 9.5, Immature Gran % (Auto) 0.400, Neut % (Auto) 72.0 H, Lymph % (Auto) 15.5 L, [place] % (Auto) 9.9, Eos % (Auto) 1.8, Baso % (Auto) 0.4, Absolute Neuts (auto) 6.9, Absolute Lymphs (auto) 1.50, Nucleated RBC % 0 03/20/20 23:30: Sodium 145, Potassium 3.7, Chloride 112 H, Carbon Dioxide 28.0, Anion Gap 5, BUN 31 H, Creatinine 1.72 H, Estim Creat Clear Calc 39.16, Est GFR (MDRD) Af Amer 49 L, Est GFR (MDRD) Non-Af 41 L, BUN/Creatinine Ratio 18.0, Glucose 114 H, Calcium 8.8, Troponin I < 0.015 Current Medications Sodium Chloride () 1,000 mls @ 150 mls/hr IV .[id number] MOOKIE Last Admin: 03/20/20 23:30 Dose: 150 mls/hr Documented by: Nitroglycerin (Nitrostat) 0.4 mg SUBLINGUAL Q5M PRN PRN Reason: Chest pain Last Admin: 03/20/20 23:26 Dose: 0.4 mg Documented by: Assessment/Plan All Active Problems (Last Reviewed 03/21/20 @ 01:[address] Douglas Adams MD) Chest pain (Acute) H/O coronary artery bypass surgery (Resolved 04/27/17) Community acquired pneumonia (Resolved) Cough (Resolved) Dehydration (Resolved) Dizziness (Resolved) Fever (Resolved) H/O ventricular fibrillation (Resolved) Headache (Resolved) History of sepsis (Resolved) Hypertensive urgency (Resolved) ICD (implantable cardioverter-defibrillator) infection (Resolved) Sepsis (Resolved) Sinus tachycardia (Resolved) Streptococcus pneumoniae infection (Resolved) Sudden cardiac (Resolved) Syncope (Resolved) The patient is a 79 year old M with a significant history of CAD status post CABG; cardiac arrest; hypertension; type 2 diabetes who presents emergency department with right-sided chest pain Chest Pain Heart score is a 6 (moderately suspicious, nonspecific repolarization disturbance, age more equal to 65; more or equal to 3 risk factors or history of atherosclerotic disease, normal limits initial troponin) Place on a monitored bed at U Actual CXR image was independently visualized. No acute cardiopulmonary process was noted. Actual EKG tracing was independently visualized. EKG tracing showed left bundle branch block with first-degree AV block. Old records reviewed showed unchanged EKG. Aspirin 324 mg was ordered at emergency department. ASA 81 mg p.o. daily ordered Nitroglycerin paste was placed at emergency department. Nitroglycerin 1 inch every 6 hours ordered. We will check lipid panel. Statin: Home Lipitor continued. On home Eliquis for A. fib, continued. Serial cardiac enzymes ordered Stat EKG as needed for chest pain Patient is a high risk consider discussing case with cardiology. Hypertensive emergency Reports home blood pressure of 202/190, and 109/84. At the emergency department higher systolic blood pressure was 195. Nitroglycerin to chest. PRN labetalol ordered. Cozaar continued. Carvedilol continued. Trend blood pressure and adjust blood pressure medications. CKD stage III Likely from hypertensive nephrosclerosis and diabetic nephropathy. Creatinine on presentation was 1.72 Review of record showed her on 01/26/2020 his creatinine was 1.44 and 10/28/2019 his creatinine was 1.41. Baseline creatinine about 1.5 so will consider CKD stage III stable. Patient has not appeared to meet criteria for SILKE. However with his mild increase in creatinine we will hold his home Lasix for now.. Trend BMP and make further determinations. We will continue home LAURA receptor tiffany. Heart failure with preserved ejection fraction. Stable Echocardiogram on 05/08/2019: EF was 55%. Patient with stage II diastolic dysfunction. Lasix held secondary to elevated creatinine. Paroxysmal A. fib Pacemaker in place Eliquis continued Coreg continued History of asthma Stable On home ICS?lab. On home Spiriva. Therapeutic interchange to DuoNeb: And Pulmicort in the hospital setting. Hypothyroidism Synthroid continued. Diabetes mellitus With mild hyperglycemia on presentation. Hold home prandial insulin because patient is at high risk of hypoglycemia. Accu-Chek with correction scale insulin ordered. DVT prophylaxis Home Eliquis continued. OBSV E&M: [id number] Initial observation care L3
--- NOTE | 2020-03-21 02:13 | EKG12_ITS ---
Test Reason : Blood Pressure : / mmHG Vent. Rate : 077 BPM Atrial Rate : 077 BPM P-R Int : 250 ms QRS Dur : 150 ms QT Int : 438 ms P-R-T Axes : 072 037 048 degrees QTc Int : 495 ms Sinus rhythm with 1st degree A-V block Left bundle branch block Abnormal ECG When compared with ECG of 13-JUL-2017 10:00, QT has shortened Confirmed by CONNIE SPARKS, LOY ([id number]), newspaper managing editor RICKI STARR ([id number]) on 03/24/2020 1:20:56 PM Referred By: Confirmed By:LOY ROSALES MD
[2020-03-21] MEDS: Ipratropium/Albuterol Sulfate 3 ML AMPUL.NEB INHALATION ×4 (03:00→19:30)
[2020-03-21] MEDS: Levothyroxine 100 MCG Tablet 200 MCG PO (05:35)
[2020-03-21 05:42] LABS: Absolute Lymphocyte Count 1.35 X10^3/uL (0.83-4.51); Absolute Neutrophil Count 6.7 X10^3/uL (2.0-7.7); Basophil# 0.03 X10^3/uL; Basophil% 0.3 % (0-1); Eosinophil# 0.12 X10^3/uL; Eosinophils% 1.3 % (0-5); Hematocrit 33.7 % (40-54); Hemoglobin 10.7 g/dL (13.0-16.5); Lymphocyte # 1.35 X10^3/ul (4.0); Lymphocyte % 14.8 % (19-41); Mean Corp Hgb Conc 31.8 g/dL (32-36); Mean Corpuscular Hgb 30.1 pg (27.0-32.0); Mean Corpuscular Volume 94.7 fL (80-94); Mean Platelet Vol. 9.6 fl (6.2-12.0); Monocyte# 0.88 X10^3/uL; Monocyte% 9.6 % (0-10); NRBC Flagged by Analyzer 0 % (0-5); Neutrophil # 6.72 X10^3/uL (2.7-7.7); Neutrophil % 73.5 % (47-70); Platelet Count 152 K/mm3 (150-450); RBC Distribution Width CV 13.3 % (11.6-14.6); RBC Distribution Width SD 45.4 fl (35.1-43.9); Red Blood Count 3.56 M/mm3 (4.6-6.2); White Blood Count 9.2 K/mm3 (4.4-11.0)
[2020-03-21 06:10] LABS: Anion Gap 7 (5-15); BUN 27 mg/dL (7-18); BUN/Creat Ratio 17.5 RATIO (10-20); Calcium,Total 8.4 mg/dL (8.5-10.1); Chloride 112 mmol/L (98-107); Cholesterol 110 mg/dL (200); Creatinine, Serum 1.54 mg/dL (0.70-1.30); EST Glomerular Filtration Rate 46 mL/min (>60); Est Glom Filt Rate - Afr Amer 56 mL/min (>60); Estimated Creatinine Clearance 43.74 ml/min; Glucose 161 mg/dL (74-106); High Density Lipoprotein 49 mg/dL; Potassium 3.9 mmol/L (3.5-5.1); Sodium Level 142 mmol/L (136-145); Triglycerides 63 mg/dL; Very Low Density Lipoprotein 13 mg/dL (5-40)
[2020-03-21] MEDS: Insulin Lispro 100 UNIT/ML INSULN.PEN SC ×4 (06:44→23:01)
[2020-03-21 06:50] LABS: Bedside Glucose 156 mg/dL (70-110)
[2020-03-21] MEDS: Budesonide Respules 0.5 MG/2 ML AMPUL.NEB. INHALATION ×2 (07:09→19:30)
[2020-03-21] MEDS: Carvedilol 25 MG Tablet PO ×2 (09:24→16:44)
[2020-03-21] MEDS: Aspirin E.C. 81 MG Tablet PO (09:24)
[2020-03-21] MEDS: Omega-3 Acid Ethyl Esters 1 GM Capsule PO (09:24)
[2020-03-21] MEDS: Isosorbide Mononitrate 30 MG Tablet PO (09:24)
[2020-03-21] MEDS: Calcium Carbonate 500 MG Tablet PO ×2 (09:24→23:01)
[2020-03-21] MEDS: Multivitamins,Therapeutic Tablet 1 TABLET PO (09:24)
[2020-03-21] MEDS: Losartan Potassium 50 MG Tablet PO ×2 (09:24→23:01)
[2020-03-21] MEDS: Magnesium Oxide 400 MG Tablet PO ×2 (09:24→23:01)
[2020-03-21] MEDS: Ferrous Gluconate 324 MG Tablet PO ×2 (09:24→16:44)
[2020-03-21] MEDS: Ascorbic Acid 500 MG Tablet 1000 MG PO (09:25)
[2020-03-21] MEDS: oxyCODONE 5 MG Tablet PO ×2 (10:58→20:06)
[2020-03-21 11:40] LABS: Bedside Glucose 242 mg/dL (70-110)
[2020-03-21] MEDS: Nitroglycerin Oint 1 INCH PACKET 0.5 INCH TRANSDERM. ×2 (12:05→17:36)
--- NOTE | 2020-03-21 12:35 | PCM.PN.HOSP ---
<Marcello Phillips - Last Filed: 03/21/20 12:35> Patient Problems: Active and Suspected Problems (Last Reviewed 03/21/20 @ 01:[address] 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 He has mild residual back pain radiating into the right side of his chest. He is very physically active and notes no recent symptoms of Chest pain/pressure/tightness at rest or with moderate exertion, and no dyspnea at rest or with exertion. No lightheadedness or dizziness. No LE edema. Vitals/I&O's: Vital Signs Temp Pulse Resp BP Pulse Ox 98 F 80 15 174/83 H 95 03/21/20 12:00 03/21/20 12:05 03/21/20 12:00 03/21/20 12:05 03/21/20 12:00 Oxygen Delivery Method Room Air Weight: 210 lb 5.136 oz Body Mass Index (BMI) 27.0 Finger Stick Blood Glucose 100 Intake and Output for Last 24 Hours 03/19/20 03/20/20 03/21/20 23:59 23:59 23:59 Intake Total 1002.5 / 1002.5 Balance 1002.5 / 1002.5 General: Alert, Oriented x3, Cooperative HEENT: Atraumatic, PERRLA, EOMI, Normocephalic Neck: Supple, No JVD, Negative Carotid Bruits Lungs: Clear to auscultation, Normal air movement Cardiovascular: Regular rate, No murmurs Abdomen: Bowel Sounds Present, Soft, Non Tender Extremities: No edema, Capillary Refill Less than 3 Seconds Skin: No rashes, No breakdown Musculoskeletal: No Tenderness to Palpation of Joints or Extremities Neurological: Cranial nerves II-XII grossly intact Psych/Mental Status: Normal Affect, Appropriate, Alert and oriented to time, place, person, mood and affect Laboratory Results 03/20/20 23:30: WBC 9.7, RBC 3.58 L, Hgb 11.0 L, Hct 34.1 L, MCV 95.3 H, MCH 30.7, MCHC 32.3, RDW Std Deviation 46.7 H, RDW Coeff of Harrison 13.6, Plt Count 188, MPV 9.5, Immature Gran % (Auto) 0.400, Neut % (Auto) 72.0 H, Lymph % (Auto) 15.5 L, [place] % (Auto) 9.9, Eos % (Auto) 1.8, Baso % (Auto) 0.4, Absolute Neuts (auto) 6.9, Absolute Lymphs (auto) 1.50, Nucleated RBC % 0 03/20/20 23:30: Sodium 145, Potassium 3.7, Chloride 112 H, Carbon Dioxide 28.0, Anion Gap 5, BUN 31 H, Creatinine 1.72 H, Estim Creat Clear Calc 39.16, Est GFR (MDRD) Af Amer 49 L, Est GFR (MDRD) Non-Af 41 L, BUN/Creatinine Ratio 18.0, Glucose 114 H, Calcium 8.8, Troponin I < 0.015 03/21/20 03:00: Troponin I < 0.015 03/21/20 05:36: WBC 9.2, RBC 3.56 L, Hgb 10.7 L, Hct 33.7 L, MCV 94.7 H, MCH 30.1, MCHC 31.8 L, RDW Std Deviation 45.4 H, RDW Coeff of Harrison 13.3, Plt Count 152, MPV 9.6, Immature Gran % (Auto) 0.500, Neut % (Auto) 73.5 H, Lymph % (Auto) 14.8 L, [place] % (Auto) 9.6, Eos % (Auto) 1.3, Baso % (Auto) 0.3, Absolute Neuts (auto) 6.7, Absolute Lymphs (auto) 1.35, Nucleated RBC % 0 03/21/20 05:36: Sodium 142, Potassium 3.9, Chloride 112 H, Carbon Dioxide 23.0, Anion Gap 7, BUN 27 H, Creatinine 1.54 H, Estim Creat Clear Calc 43.74, Est GFR (MDRD) Af Amer 56 L, Est GFR (MDRD) Non-Af 46 L, BUN/Creatinine Ratio 17.5, Glucose 161 H, Calcium 8.4 L, Triglycerides 63, Cholesterol 110, LDL Cholesterol 48, VLDL Cholesterol 13, HDL Cholesterol 49 03/21/20 05:36: Troponin I < 0.015 03/21/20 06:40: POC Glucose 156 H 03/21/20 11:02: POC Glucose 242 H Current Medications Acetaminophen (Tylenol) 650 mg PO Q6H PRN PRN PRN Reason: Pain Score 1-10/Temp > 100.7 F Albuterol/Ipratropium (Duoneb) 3 ml INHALATION Q6HWA.RT [facility] Last Admin: 03/21/20 07:09 Dose: 3 ml Documented by: Ascorbic Acid (Vitamin C) 1,000 mg PO DAILY [facility] Last Admin: 03/21/20 09:25 Dose: 1,000 mg Documented by: Aspirin (Ecotrin) 81 mg PO DAILY@0800 [facility] Last Admin: 03/21/20 09:24 Dose: 81 mg Documented by: Atorvastatin Calcium (Lipitor) 10 mg PO QHS [facility] Budesonide (Pulmicort Aerosol) 0.5 mg INHALATION Q12H.RT [facility] Last Admin: 03/21/20 07:09 Dose: 0.5 mg Documented by: Calcium Carbonate (Tums) 500 mg PO BID [facility] Last Admin: 03/21/20 09:24 Dose: 500 mg Documented by: [facility]ilol (Coreg) [facility] Last Admin: 03/21/20 09:24 Dose: 25 mg Documented by: Cholecalciferol (Vitamin D (25mcg)) 1,000 unit PO BID [facility] Last Admin: 03/21/20 09:25 Dose: 1,000 unit Documented by: Dextrose (D50w Syringe) 0 gm IV X1 PRN; Protocol PRN Reason: Hypoglycemia Ferrous Gluconate (Ferrous Gluconate) 324 [facility] Last Admin: 03/21/20 09:24 Dose: 324 mg Documented by: Glucagon () 1 mg IM .X1 PRN PRN Reason: Hypoglycemia Sodium Chloride () 250 mls @ 15 mls/hr IV .[id number] PRN PRN Reason: Saline Flush Sodium Chloride () 250 mls @ 15 mls/hr IV .[id number] PRN PRN Reason: Additional IVPB Infusion Insulin Human Lispro (Humalog Kwikpen (Bkc)) 0 unit SC ACHS [facility]; Protocol Last Admin: 03/21/20 12:04 Dose: 3 unit Documented by: Isosorbide Mononitrate (Imdur) 30 mg PO DAILY [facility] Last Admin: 03/21/20 09:24 Dose: 30 mg Documented by: Labetalol HCl (Trandate) 10 mg IV Q4H PRN PRN PRN Reason: SBP > 160 Levothyroxine Sodium (Synthroid) 100 mcg PO MoTuWeThFrSa@0600 [facility] Levothyroxine Sodium (Synthroid) 200 mcg PO Mcdermott@0600 [facility] Last Admin: 03/21/20 05:35 Dose: 200 mcg Documented by: Losartan Potassium (Cozaar) 50 mg PO BID [facility] Last Admin: 03/21/20 09:24 Dose: 50 mg Documented by: Magnesium Oxide (Mag-Ox 400) 400 mg PO BID [facility] Last Admin: 03/21/20 09:24 Dose: 400 mg Documented by: Multivitamins (Multivitamin) 1 tablet PO DAILYCM [facility] Last Admin: 03/21/20 09:24 Dose: 1 tablet Documented by: Nitroglycerin (Nitrobid) 0.5 inch TRANSDERM. Q6 [facility] Last Admin: 03/21/20 12:05 Dose: 0.5 inch Documented by: [id number] Ethyl Esters (Lovaza) 1 gm PO DAILY [facility] Last Admin: 03/21/20 09:24 Dose: 1 gm Documented by: Ondansetron HCl (Zofran) 4 mg IV Q6H PRN PRN PRN Reason: NAUSEA/VOMITING Oxycodone HCl (Oxyir) 5 mg PO Q8H PRN PRN Reason: Pain Score 6-10/10 Last Admin: 03/21/20 10:58 Dose: 5 mg Documented by: Sodium Chloride () 10 - 40 ml IV UD PRN PRN Reason: SALINE FLUSH STROKE Vital Signs/Narrative: Vital Signs Temp Pulse Resp BP BP Pulse Ox 03/21/20 12:05 80 174/83 H 03/21/20 12:00 98 F 80 15 174/83 H 95 03/21/20 09:16 89 171/61 H Medical Necessity - Tobacco Use Smoking Status: Never smoker Assessment/Plan All Active Problems (Last Reviewed 03/21/20 @ 01:[address] Douglas Adams MD) Chest pain (Acute) 1. Back pain with concern for anginal equivalent, in the setting of hx of CAD - atypical, and incited by heavy physical activity. Likely musculoskeletal. Pt with significant heart dz hx including CABG x1 LAD and stent. Trop neg x3. EKG with no new changes, old LBBB. He is very physically active and has no exertional symptoms concerning for chest pain. No Chest pain. Obtain stress test in AM. -Continue aspirin, statin, imdur, losartan, coreg 2. pAfib - coreg. rate stable. resume eliquis 3. Hx chronic systolic CHF with ischemic CM - resume furosemide. No evidence of acute exacerbation. 4. HTN - BP elevated. PRN hydralazine, lebatolol 5. HLD - statin, lovaza 6. DMt2 - continue SSI, home insults 7. chronic iron def anemia - continue po iron 8. Hypothyroidism - continue synthroid DVT ppx: eliquis DC planning: stress test in AM This patient was seen by Marcello Phillips PA-C under the supervision of Doctor Samantha. <Maryellen Singh E - Last Filed: 03/21/20 13:03> Vitals/I&O's: Vital Signs Temp Pulse Resp BP Pulse Ox 98 F 80 15 174/83 H 95 03/21/20 12:00 03/21/20 12:05 03/21/20 12:00 03/21/20 12:05 03/21/20 12:00 Oxygen Delivery Method Room Air Weight: 210 lb 5.136 oz Body Mass Index (BMI) 27.0 Finger Stick Blood Glucose 100 Intake and Output for Last 24 Hours 03/19/20 03/20/20 03/21/20 23:59 23:59 23:59 Intake Total 1002.5 / 1002.5 Balance 1002.5 / 1002.5 Laboratory Results 03/20/20 23:30: WBC 9.7, RBC 3.58 L, Hgb 11.0 L, Hct 34.1 L, MCV 95.3 H, MCH 30.7, MCHC 32.3, RDW Std Deviation 46.7 H, RDW Coeff of Harrison 13.6, Plt Count 188, MPV 9.5, Immature Gran % (Auto) 0.400, Neut % (Auto) 72.0 H, Lymph % (Auto) 15.5 L, Bullitt % (Auto) 9.9, Eos % (Auto) 1.8, Baso % (Auto) 0.4, Absolute Neuts (auto) 6.9, Absolute Lymphs (auto) 1.50, Nucleated RBC % 0 03/20/20 23:30: Sodium 145, Potassium 3.7, Chloride 112 H, Carbon Dioxide 28.0, Anion Gap 5, BUN 31 H, Creatinine 1.72 H, Estim Creat Clear Calc 39.16, Est GFR (MDRD) Af Amer 49 L, Est GFR (MDRD) Non-Af 41 L, BUN/Creatinine Ratio 18.0, Glucose 114 H, Calcium 8.8, Troponin I < 0.015 03/21/20 03:00: Troponin I < 0.015 03/21/20 05:36: WBC 9.2, RBC 3.56 L, Hgb 10.7 L, Hct 33.7 L, MCV 94.7 H, MCH 30.1, MCHC 31.8 L, RDW Std Deviation 45.4 H, RDW Coeff of Harrison 13.3, Plt Count 152, MPV 9.6, Immature Gran % (Auto) 0.500, Neut % (Auto) 73.5 H, Lymph % (Auto) 14.8 L, Bullitt % (Auto) 9.6, Eos % (Auto) 1.3, Baso % (Auto) 0.3, Absolute Neuts (auto) 6.7, Absolute Lymphs (auto) 1.35, Nucleated RBC % 0 03/21/20 05:36: Sodium 142, Potassium 3.9, Chloride 112 H, Carbon Dioxide 23.0, Anion Gap 7, BUN 27 H, Creatinine 1.54 H, Estim Creat Clear Calc 43.74, Est GFR (MDRD) Af Amer 56 L, Est GFR (MDRD) Non-Af 46 L, BUN/Creatinine Ratio 17.5, Glucose 161 H, Calcium 8.4 L, Triglycerides 63, Cholesterol 110, LDL Cholesterol 48, VLDL Cholesterol 13, HDL Cholesterol 49 03/21/20 05:36: Troponin I < 0.015 03/21/20 06:40: POC Glucose 156 H 03/21/20 11:02: POC Glucose 242 H Current Medications Acetaminophen (Tylenol) 650 mg PO Q6H PRN PRN PRN Reason: Pain Score 1-10/Temp > 100.7 F Albuterol/Ipratropium (Duoneb) 3 ml INHALATION Q6HWA.RT [facility] Last Admin: 03/21/20 07:09 Dose: 3 ml Documented by: Apixaban (Eliquis) 2.5 mg PO BID [facility] Ascorbic Acid (Vitamin C) 1,000 mg PO DAILY [facility] Last Admin: 03/21/20 09:25 Dose: 1,000 mg Documented by: Aspirin (Ecotrin) 81 mg PO DAILY@0800 [facility] Last Admin: 03/21/20 09:24 Dose: 81 mg Documented by: Atorvastatin Calcium (Lipitor) 10 mg PO QHS [facility] Budesonide (Pulmicort Aerosol) 0.5 mg INHALATION Q12H.RT [facility] Last Admin: 03/21/20 07:09 Dose: 0.5 mg Documented by: Calcium Carbonate (Tums) 500 mg PO BID [facility] Last Admin: 03/21/20 09:24 Dose: 500 mg Documented by: Carvedilol (Coreg) [facility] Last Admin: 03/21/20 09:24 Dose: 25 mg Documented by: Cholecalciferol (Vitamin D (25mcg)) 1,000 unit PO BID [facility] Last Admin: 03/21/20 09:25 Dose: 1,000 unit Documented by: Dextrose (D50w Syringe) 0 gm IV X1 PRN; Protocol PRN Reason: Hypoglycemia Ferrous Gluconate (Ferrous Gluconate) 324 mg PO [facility] Last Admin: 03/21/20 09:24 Dose: 324 mg Documented by: Furosemide (Lasix) 40 mg PO DAILY [facility] Glucagon () 1 mg IM .X1 PRN PRN Reason: Hypoglycemia Hydralazine HCl (Apresoline Iv) 5 mg IV Q6H PRN PRN PRN Reason: BLOOD PRESSURE Sodium Chloride () 250 mls @ 15 mls/hr IV .[id number] PRN PRN Reason: Saline Flush Sodium Chloride () 250 mls @ 15 mls/hr IV .[id number] PRN PRN Reason: Additional IVPB Infusion Insulin Human Lispro (Humalog Kwikpen (Bkc)) 0 unit SC ACHS [facility]; Protocol Last Admin: 03/21/20 12:04 Dose: 3 unit Documented by: Insulin Human Lispro (Humalog Kwikpen (Bkc)) 6 unit SC LUNCH [facility] Insulin Human Lispro (Humalog Kwikpen (Bkc)) 12 unit SC BREAKFAST [facility] Insulin Human Lispro (Humalog Kwikpen (Bkc)) 12 unit SC DINNER [facility] Isosorbide Mononitrate (Imdur) 30 mg PO DAILY [facility] Last Admin: 03/21/20 09:24 Dose: 30 mg Documented by: Labetalol HCl (Trandate) 10 mg IV Q4H PRN PRN PRN Reason: SBP > 160 Levothyroxine Sodium (Synthroid) 100 mcg PO MoTuWeThFrSa@0600 [facility] Levothyroxine Sodium (Synthroid) 200 mcg PO Mcdermott@0600 [facility] Last Admin: 03/21/20 05:35 Dose: 200 mcg Documented by: Losartan Potassium (Cozaar) 50 mg PO BID [facility] Last Admin: 03/21/20 09:24 Dose: 50 mg Documented by: Magnesium Oxide (Mag-Ox 400) 400 mg PO BID [facility] Last Admin: 03/21/20 09:24 Dose: 400 mg Documented by: Multivitamins (Multivitamin) 1 tablet PO DAILYCM [facility] Last Admin: 03/21/20 09:24 Dose: 1 tablet Documented by: Nitroglycerin (Nitrobid) 0.5 inch TRANSDERM. Q6 [facility] Last Admin: 03/21/20 12:05 Dose: 0.5 inch Documented by: [id number] Ethyl Esters (Lovaza) 1 gm PO DAILY [facility] Last Admin: 03/21/20 09:24 Dose: 1 gm Documented by: Ondansetron HCl (Zofran) 4 mg IV Q6H PRN PRN PRN Reason: NAUSEA/VOMITING Oxycodone HCl (Oxyir) 5 mg PO Q8H PRN PRN Reason: Pain Score 6-10/10 Last Admin: 03/21/20 10:58 Dose: 5 mg Documented by: Sodium Chloride () 10 - 40 ml IV UD PRN PRN Reason: SALINE FLUSH STROKE Vital Signs/Narrative: Vital Signs Temp Pulse Resp BP BP Pulse Ox 03/21/20 12:05 80 174/83 H 03/21/20 12:00 98 F 80 15 174/83 H 95 03/21/20 09:16 89 171/61 H Assessment/Plan Hospitalist note: I am seeing this patient in conjunction with Marcello Phillips. I independently seen and examined the patient. Progress note above, laboratory data and imaging studies reviewed and I concur with above work-up plan. Patient was admitted for chest pain for evaluation. 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 Pain was radiating to his right chest. He denied associated shortness of breath, condition, dizziness or lightheadedness. He mentioned that that pain improved after he received nitroglycerin in the ED. Today, he still having pain, improved, it is 4 out of 10 in severity without aggravating or relieving factors. His blood pressure is elevated, other vital signs are stable. - Physical Exam General: Alert, Oriented x3, Cooperative, No apparent distress. HEENT: Atraumatic, PERRLA, EOMI. Neck: Supple, No JVD, Negative Carotid Bruits, Trachea Midline, Thyroid Normal. Lungs: Clear to auscultation, Normal air movement, No rhonchi, No wheeze, No rales. Cardiovascular: Regular rate, Regular Rhythm, Normal S1, Normal S2, PMI Normal. Abdomen: Bowel Sounds Present, Soft, Non Tender, Non-Distended, No Hepato-splenomegaly. Extremities: No clubbing, No cyanosis, No edema Skin: No rashes, No breakdown Neurological: Cranial nerves are intact, neuro grossly intact Assessment and plan: #1 mid back pain: Concern for anginal equivalent in the setting of significant CAD status post CABG, atypical presentation. EKG revealed normal sinus rhythm, first-degree AV block, left bundle branch block which is chronic, no acute changes. Troponin was negative x3. Chest x-ray showed no acute findings. Plan for stress test tomorrow morning. #2 other chronic medical problems: Stable, continue current medications as above. This note was generated with [employer] dictation software. It may contain incorrect words, spelling, and punctuation that were not noted in checking the note before signing.
[2020-03-21] MEDS: Acetaminophen 325 MG Tablet 650 MG PO ×2 (14:02→20:06)
[2020-03-21 16:41] LABS: Bedside Glucose 215 mg/dL (70-110)
[2020-03-21] MEDS: Insulin Lispro 100 UNIT/ML INSULN.PEN 12 UNIT SC (16:44)
[2020-03-21] MEDS: APIXABAN 2.5 MG TABLET PO (23:01)
[2020-03-21] MEDS: BENZOCAINE/MENTHOL 1 LOZENGE MUCOUS MEM (23:01)
[2020-03-21] MEDS: Atorvastatin Calcium 10 MG Tablet PO (23:01)
[2020-03-21 23:10] LABS: Bedside Glucose 181 mg/dL (70-110)
[2020-03-22] VITALS (8 sets, daily range): BP systolic 133–158; BP diastolic 65–84; PULSE 70–87; RESP 16–18; TEMP 36.5–36.8; O2SAT 95–98
[2020-03-22] MEDS: Ipratropium/Albuterol Sulfate 3 ML AMPUL.NEB INHALATION ×2 (00:58→07:11)
--- NOTE | 2020-03-22 05:55 | EKG12_ITS ---
Test Reason : AM EKG Blood Pressure : / mmHG Vent. Rate : 078 BPM Atrial Rate : 078 BPM P-R Int : 246 ms QRS Dur : 154 ms QT Int : 436 ms P-R-T Axes : 073 115 004 degrees QTc Int : 497 ms Sinus rhythm with 1st degree A-V block with Premature atrial complexes Non-specific intra-ventricular conduction block Lateral infarct , age undetermined Abnormal ECG When compared with ECG of 21-MAR-2020 02:42, MANUAL COMPARISON REQUIRED, DATA IS UNCONFIRMED Confirmed by CONNIE SPARKS, LOY ([id number]), purchase request editor RICKI STARR ([id number]) on 03/24/2020 1:19:55 PM Referred By: ALIYA Confirmed By:LOY ROSALES MD
[2020-03-22] MEDS: Levothyroxine 100 MCG Tablet PO (06:02)
[2020-03-22] MEDS: Aspirin E.C. 81 MG Tablet PO (06:02)
[2020-03-22] MEDS: Losartan Potassium 50 MG Tablet PO (06:02)
[2020-03-22 06:30] LABS: Anion Gap 5 (5-15); BUN 23 mg/dL (7-18); BUN/Creat Ratio 15.2 RATIO (10-20); Chloride 103 mmol/L (98-107); Creatinine, Serum 1.51 mg/dL (0.70-1.30); EST Glomerular Filtration Rate 47 mL/min (>60); Est Glom Filt Rate - Afr Amer 57 mL/min (>60); Estimated Creatinine Clearance 44.61 ml/min; Glucose 185 mg/dL (74-106); Potassium 3.8 mmol/L (3.5-5.1); Sodium Level 137 mmol/L (136-145)
[2020-03-22 06:45] LABS: Bedside Glucose 186 mg/dL (70-110)
[2020-03-22] MEDS: Budesonide Respules 0.5 MG/2 ML AMPUL.NEB. INHALATION (07:14)
--- NOTE | 2020-03-22 10:55 | DCINST_ITS ---
- Discharge Diagnoses Current Active Problems: Current Active and Chronic Problems (Last Updated 03/21/20 @ 12:[address] Maryellen Singh MD) Chest pain (Acute) You will use the following diet at home:: Calorie/Carbohydrate Controlled (specify 1200, 1400, etc) Your food should be the consistency of: Regular Your liquids should be the consistency of: Regular/Thin Discharge Activity: Return to Normal Activity Allergies/Adverse Reactions: Allergies LAURA Inhibitors Adverse Reaction (Intermediate, Verified 03/20/20 22:31) cough enalapril Adverse Reaction (Intermediate, Verified 03/20/20 22:31) Shortness of breath adhesive tape Adverse Reaction (Verified 03/20/20 22:31) rash azithromycin [From Zithromax Z-Robert] Adverse Reaction (Verified 03/20/20 22:) Other levofloxacin [From Levaquin] Adverse Reaction (Verified 03/20/20 22:31) Other warfarin [From Coumadin] Adverse Reaction (Verified 03/20/20 22:31) bleeding under the skin Medications to take at Discharge Ascorbic Acid [Vitamin C] 1,000 mg PO DAILY 05/20/18 Budesonide/Formoterol 160/4.5 [Symbicort 160/4.5 Mcg Inhaler (SP)] 2 puff INHALATION BID 05/20/18 Calcium Carbonate [Calcium] 600 mg PO BID 05/20/18 Cholecalciferol (Vitamin D3) [Vitamin D3] 1,000 unit PO BID 05/20/18 Ferrous Gluconate 325 mg PO BIDCM 05/20/18 Fluticasone Furoate [Arnuity Ellipta] 50 mcg IH BID 05/20/18 Insulin Aspart [Novolog Flexpen] 6 units SUBCUT LUNCH 05/20/18 Insulin Aspart [Novolog Flexpen] 12 units SUBCUT BREAKFAST 05/20/18 Insulin Aspart [Novolog Flexpen] 12 units SUBCUT DINNER 05/20/18 L.acidoph,Paracasei, B.lactis [Probiotic] 1 ea PO BID 05/20/18 Levothyroxine [Synthroid] 100 mcg PO DAILY 05/20/18 Levothyroxine [Synthroid] 200 mcg PO JARVIS 05/20/18 Magnesium 400 mg PO BID 05/20/18 Multivitamin [Multiple Vitamins] 1 ea PO DAILY 05/20/18 Bluebell-3 Fatty Acids/Fish Oil [Bluebell 3 1,000 mg Softgel] 1 ea PO DAILY 05/20/18 Tiotropium [place] [Spiriva] 18 mcg IH QHS 05/20/18 apixaban 5 mg tablet 2.5 mg PO BID tab 11/13/18 atorvastatin 10 mg tablet 10 mg PO QHS #90 tab 07/09/19 carvedilol 25 mg tablet 25 mg PO BID #180 tab 11/10/19 furosemide 40 mg tablet 40 mg PO DAILY #90 tab 12/01/19 losartan 50 mg tablet 50 mg PO BID #180 tab 12/01/19 Metformin HCl [Metformin HCl ER] 500 mg PO DINNER 03/21/20 Primary Care Physician: Corin Hernandez MD [Primary Care Provider] - Please follow up with your Primary Care Physician in: 1-2 weeks Test Results: Test results from this visit will be discussed in further detail at your follow- up appointment, if applicable. Proposed Discharge Date: 03/22/20
[2020-03-22] MEDS: Ascorbic Acid 500 MG Tablet 1000 MG PO (11:01)
[2020-03-22] MEDS: Carvedilol 25 MG Tablet PO (11:01)
[2020-03-22] MEDS: Omega-3 Acid Ethyl Esters 1 GM Capsule PO (11:01)
[2020-03-22] MEDS: Magnesium Oxide 400 MG Tablet PO (11:01)
[2020-03-22] MEDS: Ferrous Gluconate 324 MG Tablet PO (11:02)
[2020-03-22] MEDS: Multivitamins,Therapeutic Tablet 1 TABLET PO (11:02)
[2020-03-22] MEDS: Isosorbide Mononitrate 30 MG Tablet PO (11:03)
[2020-03-22] MEDS: Calcium Carbonate 500 MG Tablet PO (11:03)
[2020-03-22] MEDS: Furosemide 40 MG Tablet PO (11:04)
--- NOTE | 2020-03-22 11:18 | PHA.DC.MR ---
Pharmacy Service has performed discharge medication reconciliation for this patient. The patient's discharge medication list was reviewed for discrepancies and discrepancies were resolved. Home Medications Ascorbic Acid [Vitamin C] 1,000 mg PO DAILY 05/20/18 Budesonide/Formoterol 160/4.5 [Symbicort 160/4.5 Mcg Inhaler (SP)] 2 puff INHALATION BID 05/20/18 Calcium Carbonate [Calcium] 600 mg PO BID 05/20/18 Cholecalciferol (Vitamin D3) [Vitamin D3] 1,000 unit PO BID 05/20/18 Ferrous Gluconate 325 mg PO BIDCM 05/20/18 Fluticasone Furoate [Arnuity Ellipta] 50 mcg IH BID 05/20/18 Insulin Aspart [Novolog Flexpen] 6 units SUBCUT LUNCH 05/20/18 Insulin Aspart [Novolog Flexpen] 12 units SUBCUT BREAKFAST 05/20/18 Insulin Aspart [Novolog Flexpen] 12 units SUBCUT DINNER 05/20/18 L.acidoph,Paracasei, B.lactis [Probiotic] 1 ea PO BID 05/20/18 Levothyroxine [Synthroid] 100 mcg PO DAILY 05/20/18 Levothyroxine [Synthroid] 200 mcg PO JARVIS 05/20/18 Magnesium 400 mg PO BID 05/20/18 Multivitamin [Multiple Vitamins] 1 ea PO DAILY 05/20/18 Brashear-3 Fatty Acids/Fish Oil [[place] 3 1,000 mg Softgel] 1 ea PO DAILY 05/20/18 Tiotropium [place] [Spiriva] 18 mcg IH QHS 05/20/18 apixaban 5 mg tablet 2.5 mg PO BID tab 11/13/18 atorvastatin 10 mg tablet 10 mg PO QHS #90 tab 07/09/19 carvedilol 25 mg tablet 25 mg PO BID #180 tab 11/10/19 furosemide 40 mg tablet 40 mg PO DAILY #90 tab 12/01/19 losartan 50 mg tablet 50 mg PO BID #180 tab 12/01/19 Metformin HCl [Metformin HCl ER] 500 mg PO DINNER 03/21/20
--- NOTE | 2020-03-22 11:27 | CASEMGMT ---
This RN CM to room with KEARNS form at this time, explanation done-pt/ voice understanding, and pt signs KEARNS form at this time. Original to chart and copy to pt at this time. Pt voices no further questions/concerns/needs at this time. SStaten STEFANO CM
[2020-03-22] MEDS: APIXABAN 2.5 MG TABLET PO (11:38)
--- NOTE | 2020-03-22 11:58 | STRESSREP ---
Stress Test Report Pharmacologic myocardial perfusion stress test. 79-year-old man with a history of coronary artery disease status post V. fib arrest. Stress protocol: Resting EKG demonstrates normal sinus rhythm with a rate of 81 bpm and a left bundle branch block pattern. Resting blood pressure is 168/80 mmHg. 0.4 mg of regadenoson was infused per usual protocol followed by rapid intravenous saline flush injection continuous EKG monitoring was performed. The maximum heart rate attained was 106 bpm which was 76% of maximum predicted heart rate the maximum workload was 1 metabolic equivalent. At rest there were no ST or T wave changes noted to suggest abnormal flow reserve at peak infusion nonspecific ST-T wave changes were noted with no meet the criteria for abnormal flow reserve. Left bundle branch block pattern was noted. The resting blood pressure was 168/80 with a final blood pressure 164/80 mmHg. Myocardial perfusion protocol. 12.0 mCi of technetium 99m sestamibi was injected at rest. 0.4 mg of regadenoson was infused per usual protocol. At peak infusion 34.3 mCi of technetium 99m sestamibi was injected stress images were obtained stress and rest images were reconstructed and compared in the short axis vertical long horizontal long axis. Gated images were also obtained Perfusion SPECT analysis: Review of the stress images demonstrate normal uptake of tracer noted in all areas of the myocardium. The resting images similar demonstrate normal uptake of tracer noted in all areas of the myocardium. No areas of reversibility are noted suggest ischemia no previous infarct is noted. Gated SPECT analysis: The gated ejection fraction is 45%. Conclusion: Normal pharmacologic myocardial perfusion stress test. Low normal ejection fraction. Left bundle branch block pattern noted.
--- NOTE | 2020-03-22 12:45 | PCM.DC.SUM ---
<Marcello Phillips - Last Filed: 03/22/20 12:45> Discharge Date and Diagnosis Date of Admission: 03/21/20 Date of Discharge: 03/22/20 - Primary Discharge Diagnosis Acute Problems: Back pain, chest pain 2/2 musculoskeletal pain - Secondary Discharge Diagnosis Chronic Problems: Chronic Problems (Last Updated 03/21/20 @ 12:[address] Maryellen Singh MD) Paroxysmal atrial fibrillation (Chronic) Ischemic cardiomyopathy (Chronic) History of implantable cardiac defibrillator (ICD) (Chronic 01/31/16) ICD Implant for out of hospital V. 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 Conclusion: Normal pharmacologic myocardial perfusion stress test. Low normal ejection fraction. Left bundle branch block pattern noted. RAD/Chest 1 View (Portable) IMPRESSION: No acute pulmonary findings. Operations: None Procedures: Stress test Summary of Care Provided: Hospital course: The patient is a 79 year old M with a past medical history of CAD with prior CABG and stent, who presented to the emergency room with right-sided back pain radiating into the right side of his ribs. 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 Patient came to the emergency room had a negative EKG, negative troponin, negative chest x-ray. Given his cardiac history it was felt that he should stay for a stress test. The patient was agreeable. He was admitted to the PCU and placed on telemetry. No events on telemetry. The patient underwent a stress test on Sunday which was negative for ischemia. He was felt to have musculoskeletal pain. He was discharged home in stable condition. Follow-up with PCP in 1 to 2 weeks. This patient was seen by Marcello Phillips PA-C under the supervision of Doctor Samantha. [] - Physical Exam Vitals/I&O's: Vital Signs Temp Pulse Resp BP Pulse Ox 98.2 F 76 18 158/76 H 98 03/22/20 11:45 03/22/20 11:45 03/22/20 11:45 03/22/20 11:45 03/22/20 11:45 Oxygen Delivery Method Room Air Weight: 210 lb 5.136 oz Body Mass Index (BMI) 27.0 Finger Stick Blood Glucose 100 Intake and Output for Last 24 Hours 03/20/20 03/21/20 03/22/20 23:59 23:59 23:59 Intake Total 2802.5 / 2802.5 Balance 2802.5 / 2802.5 General: Alert, Oriented x3, Cooperative HEENT: Atraumatic, PERRLA, EOMI, Normocephalic Neck: Supple, No JVD, Negative Carotid Bruits Lungs: Clear to auscultation, Normal air movement Cardiovascular: Regular rate, No murmurs Abdomen: Bowel Sounds Present, Soft, Non Tender Extremities: No edema, Capillary Refill Less than 3 Seconds Skin: No rashes, No breakdown Musculoskeletal: No Tenderness to Palpation of Joints or Extremities Neurological: Cranial nerves II-XII grossly intact Psych/Mental Status: Normal Affect, Appropriate, Alert and oriented to time, place, person, mood and affect Laboratory Results 03/21/20 16:37: POC Glucose 215 H 03/21/20 22:48: POC Glucose 181 H 03/22/20 05:30: Sodium 137, Potassium 3.8, Chloride 103, Carbon Dioxide 29.0, Anion Gap 5, BUN 23 H, Creatinine 1.51 H, Estim Creat Clear Calc 44.61, Est GFR (MDRD) Af Amer 57 L, Est GFR (MDRD) Non-Af 47 L, BUN/Creatinine Ratio 15.2, Glucose 185 H, Calcium 9.0 03/22/20 06:35: POC Glucose 186 H Discharge Diet: Low fat/ Low Cholesterol, 2000 mg Sodium Diet Discharge Activity: Return to Normal Activity Home Medications: Medications to take at Discharge Ascorbic Acid [Vitamin C] 1,000 mg PO DAILY 05/20/18 Budesonide/Formoterol 160/4.5 [Symbicort 160/4.5 Mcg Inhaler (SP)] 2 puff INHALATION BID 05/20/18 Calcium Carbonate [Calcium] 600 mg PO BID 05/20/18 Cholecalciferol (Vitamin D3) [Vitamin D3] 1,000 unit PO BID 05/20/18 Ferrous Gluconate 325 mg PO BIDCM 05/20/18 Fluticasone Furoate [Arnuity Ellipta] 50 mcg IH BID 05/20/18 Insulin Aspart [Novolog Flexpen] 6 units SUBCUT LUNCH 05/20/18 Insulin Aspart [Novolog Flexpen] 12 units SUBCUT BREAKFAST 05/20/18 Insulin Aspart [Novolog Flexpen] 12 units SUBCUT DINNER 05/20/18 L.acidoph,Paracasei, B.lactis [Probiotic] 1 ea PO BID 05/20/18 Levothyroxine [Synthroid] 100 mcg PO DAILY 05/20/18 Levothyroxine [Synthroid] 200 mcg PO JARVIS 05/20/18 Magnesium 400 mg PO BID 05/20/18 Multivitamin [Multiple Vitamins] 1 ea PO DAILY 05/20/18 [place]-3 Fatty Acids/Fish Oil [[place] 3 1,000 mg Softgel] 1 ea PO DAILY 05/20/18 Tiotropium [place] [Spiriva] 18 mcg IH QHS 05/20/18 apixaban 5 mg tablet 2.5 mg PO BID tab 11/13/18 atorvastatin 10 mg tablet 10 mg PO QHS #90 tab 07/09/19 carvedilol 25 mg tablet 25 mg PO BID #180 tab 11/10/19 furosemide 40 mg tablet 40 mg PO DAILY #90 tab 12/01/19 losartan 50 mg tablet 50 mg PO BID #180 tab 12/01/19 Metformin HCl [Metformin HCl ER] 500 mg PO DINNER 03/21/20 Primary Care Physician: Corin Hernandez MD [Primary Care Provider] - Please follow up with your Primary Care Physician in: 1-2 weeks Disposition: Home Minutes spent on discharge:: 35 Patient Condition:: Stable Medical Necessity - Tobacco Use Smoking Status: Never smoker Meaningful Use Info Meaningful Use Diagnoses (Choose all that apply): None applicable <Maryellen Singh - Last Filed: 03/22/20 13:33> Discharge Date and Diagnosis - Secondary Discharge Diagnosis Chronic Problems: Chronic Problems (Last Updated 03/21/20 @ 12:[address] Maryellen Singh MD) Paroxysmal atrial fibrillation (Chronic) Ischemic cardiomyopathy (Chronic) History of implantable cardiac defibrillator (ICD) (Chronic 01/31/16) ICD Implant for out of hospital V. 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 Patient admitted for atypical chest pain for evaluation. He has history of CAD status post CABG. His EKG revealed normal sinus rhythm, first-degree AV block, LBBB which is chronic, no acute clinical changes. Troponin was negative. Chest x-ray showed no acute findings. He underwent nuclear stress test that showed no evidence of acute stress induced myocardial ischemia, ejection fraction was 45%. ACS ruled out. 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 His vital signs were stable. Patient discharged home in a stable medical condition, discharged with the same previous home medication without any changes, recommended follow-up with PCP in 1 to 2 weeks. - Physical Exam General: Alert, Oriented x3, Cooperative, No apparent distress. HEENT: Atraumatic, PERRLA, EOMI. Neck: Supple, No JVD, Negative Carotid Bruits, Trachea Midline, Thyroid Normal. Lungs: Clear to auscultation, Normal air movement, No rhonchi, No wheeze, No rales. Cardiovascular: Regular rate, Regular Rhythm, Normal S1, Normal S2, PMI Normal. Abdomen: Bowel Sounds Present, Soft, Non Tender, Non-Distended, No Hepato-splenomegaly. Extremities: No clubbing, No cyanosis, No edema Skin: No rashes, No breakdown Neurological: Cranial nerves are intact, neuro grossly intact. This note was generated with [employer] dictation software. It may contain incorrect words, spelling, and punctuation that were not noted in checking the note before signing. - Physical Exam Vitals/I&O's: Vital Signs Temp Pulse Resp BP Pulse Ox 98.2 F 76 18 158/76 H 98 03/22/20 11:45 03/22/20 11:45 03/22/20 11:45 03/22/20 11:45 03/22/20 11:45 Oxygen Delivery Method Room Air Weight: 210 lb 5.136 oz Body Mass Index (BMI) 27.0 Finger Stick Blood Glucose 100 Intake and Output for Last 24 Hours 03/20/20 03/21/20 03/22/20 23:59 23:59 23:59 Intake Total 2802.5 / 2802.5 Balance 2802.5 / 2802.5 Laboratory Results 03/21/20 16:37: POC Glucose 215 H 03/21/20 22:48: POC Glucose 181 H 03/22/20 05:30: Sodium 137, Potassium 3.8, Chloride 103, Carbon Dioxide 29.0, Anion Gap 5, BUN 23 H, Creatinine 1.51 H, Estim Creat Clear Calc 44.61, Est GFR (MDRD) Af Amer 57 L, Est GFR (MDRD) Non-Af 47 L, BUN/Creatinine Ratio 15.2, Glucose 185 H, Calcium 9.0 03/22/20 06:35: POC Glucose 186 H Disposition: Home Minutes spent on discharge:: 26 Patient Condition:: Stable Meaningful Use Info Meaningful Use Diagnoses (Choose all that apply): None applicable OBSV E&M: 47408 Observation care discharge
== END 2020-03-22 10:55 | disposition home or self-care (01) ==
LOC: ED 23:18 → PCU 03-21 01:18
PROVIDERS: Physician Assistant; Admitting Provider Hospitalist; Emergency Provider Emergency Medicine; PCP Family Medicine; Visit Provider Hospitalist
DX: R07.89 Other chest pain (principal); M79.18 Myalgia, other site; M54.6 Pain in thoracic spine; E11.22 Type 2 diabetes mellitus with diabetic chronic kidney disease; I13.0 Hypertensive heart and chronic kidney disease with heart failure and stage 1 through stage 4 chronic kidney disease, or unspecified chronic kidney disease; I44.0 Atrioventricular block, first degree; I44.7 Left bundle-branch block, unspecified; N18.3 Chronic kidney disease, stage 3 (moderate); I16.1 Hypertensive emergency; D68.9 Coagulation defect, unspecified; I48.0 Paroxysmal atrial fibrillation; J45.909 Unspecified asthma, uncomplicated; E11.65 Type 2 diabetes mellitus with hyperglycemia; D50.9 Iron deficiency anemia, unspecified; I25.5 Ischemic cardiomyopathy; I25.10 Atherosclerotic heart disease of native coronary artery without angina pectoris; I50.22 Chronic systolic (congestive) heart failure; E78.5 Hyperlipidemia, unspecified; E03.9 Hypothyroidism, unspecified; Z79.899 Other long term (current) drug therapy; Z79.4 Long term (current) use of insulin; Z79.51 Long term (current) use of inhaled steroids; Z79.01 Long term (current) use of anticoagulants; Z95.810 Presence of automatic (implantable) cardiac defibrillator; Z86.74 Personal history of sudden cardiac arrest; Z95.1 Presence of aortocoronary bypass graft
CPT/HCPCS: 36415; 71045; 78452; 80048; 80061; 82962; 84484; 85025; 93005; 93017; 94640; 96361; 96374; 99218; 99285; A9500; J7030; A4216; G0378; J2785

== ENCOUNTER → 2020-03-31 11:33 | Outpatient (CLI) | payer MEDICARE, OTHER, SELFPAY ==
[2020-03-21 02:16] VITALS: BMI 27.0
[2020-03-31 15:32] LABS: Absolute Lymphocyte Count 1.08 X10^3/uL (0.83-4.51); Absolute Neutrophil Count 5.8 X10^3/uL (2.0-7.7); Basophil# 0.04 X10^3/uL; Basophil% 0.5 % (0-1); Eosinophil# 0.13 X10^3/uL; Eosinophils% 1.7 % (0-5); Hematocrit 35.4 % (40-54); Lymphocyte # 1.08 X10^3/ul (4.0); Lymphocyte % 13.9 % (19-41); Mean Corp Hgb Conc 31.1 g/dL (32-36); Mean Corpuscular Hgb 30.3 pg (27.0-32.0); Mean Corpuscular Volume 97.5 fL (80-94); Monocyte# 0.73 X10^3/uL; Monocyte% 9.4 % (0-10); NRBC Flagged by Analyzer 0 % (0-5); Neutrophil # 5.78 X10^3/uL (2.7-7.7); Neutrophil % 74.2 % (47-70); Platelet Count 206 K/mm3 (150-450); RBC Distribution Width CV 13.5 % (11.6-14.6); RBC Distribution Width SD 48.9 fl (35.1-43.9); RET-HE 34.6 pg (30-35); Red Blood Count 3.63 M/mm3 (4.6-6.2); Reticulocyte Count 1.74 % (0.5-1.5); White Blood Count 7.8 K/mm3 (4.4-11.0)
[2020-03-31 15:45] LABS: Vitamin B12 646 pg/mL (211-911)
[2020-03-31 16:29] LABS: Ferritin 169 ng/mL (26-388)
[2020-04-02 16:08] LABS: Endomysial Antibody IgA Negative (Negative)
[2020-04-02 16:46] LABS: Deamidated Gliadin IgA 2 units (0-19); Deamidated Gliadin IgG 3 units (0-19); Immunoglobulin A 108 mg/dL (61-437)
[2020-04-02 16:47] LABS: t-Transglutaminase IgA <2 U/mL (0-3)
== END ==
PROVIDERS: PCP Family Medicine; Referring Provider Family Medicine; Visit Provider Family Medicine
DX: D64.9 Anemia, unspecified (principal); R19.7 Diarrhea, unspecified
CPT/HCPCS: 36415; 82607; 82728; 82746; 82784; 83516; 85025; 85045; 86255

== ENCOUNTER → 2020-04-02 10:21 | Outpatient (CLI) | payer MEDICARE, OTHER, SELFPAY ==
[2020-03-21 02:16] VITALS: BMI 27.0
== END ==
PROVIDERS: PCP Family Medicine; Referring Provider Family Medicine; Visit Provider Family Medicine
DX: R19.7 Diarrhea, unspecified (principal); D64.9 Anemia, unspecified
CPT/HCPCS: 87177; 87209; 87506

== ENCOUNTER → 2020-04-21 08:30 | Outpatient (CLI) | payer MEDICARE, OTHER, SELFPAY ==
[2020-03-21 02:16] VITALS: BMI 27.0
[2020-04-21 09:53] LABS: Hemoglobin A1c 7.4 % (3.8-5.6)
[2020-04-21 10:00] LABS: ALB/GLOB Ratio 1.1 RATIO (0.9-2.4); AST(SGOT) 13 U/L (15-37); Alanine Aminotransfer ALT/SGPT 21 U/L (16-61); Albumin, Serum 3.5 g/dL (3.2-5.0); Alkaline Phosphatase 83 U/L (45-117); Anion Gap 5 (5-15); BUN 28 mg/dL (7-18); BUN/Creat Ratio 18.1 RATIO (10-20); Calcium,Total 8.7 mg/dL (8.5-10.1); Chloride 110 mmol/L (98-107); Creatinine, Serum 1.55 mg/dL (0.70-1.30); EST Glomerular Filtration Rate 46 mL/min (>60); Est Glom Filt Rate - Afr Amer 56 mL/min (>60); Globulin 3.2 g/dL (2.2-4.2); Glucose 175 mg/dL (74-106); Potassium 4.2 mmol/L (3.5-5.1); Protein, Total 6.7 g/dL (6.4-8.2); Sodium Level 142 mmol/L (136-145); T4 Free Direct 1.14 ng/dL (0.76-1.46); Thyroid Stim Hormone (TSH) 0.51 uIU/mL (0.358-3.74)
== END ==
PROVIDERS: PCP Family Medicine; Referring Provider Internal Medicine Endocrinology, Diabetes & Metabolism; Visit Provider Internal Medicine Endocrinology, Diabetes & Metabolism
DX: E11.22 Type 2 diabetes mellitus with diabetic chronic kidney disease (principal); N18.3 Chronic kidney disease, stage 3 (moderate); E11.649 Type 2 diabetes mellitus with hypoglycemia without coma; E03.9 Hypothyroidism, unspecified; E55.9 Vitamin D deficiency, unspecified
CPT/HCPCS: 36415; 80053; 82043; 83036; 84439; 84443

== ENCOUNTER → 2020-05-26 | Outpatient (CLI) | payer MEDICARE, OTHER, SELFPAY ==
[2020-03-21 02:16] VITALS: BMI 27.0
[2020-05-27 20:34] LABS: Fats, Neutral Normal (.); Fats, Total Normal (.)
== END | disposition home or self-care (01) ==
PROVIDERS: PCP Family Medicine; Referring Provider Internal Medicine Gastroenterology; Visit Provider Internal Medicine Gastroenterology
DX: R19.7 Diarrhea, unspecified (principal)
CPT/HCPCS: 82705

== ENCOUNTER → 2020-09-28 09:43 | Outpatient (CLI) | payer MEDICARE, OTHER, SELFPAY ==
[2020-06-29 08:38] VITALS: BMI 26.8
[2020-09-28 10:39] LABS: Anion Gap 8 (5-15); BUN 20 mg/dL (7-18); BUN/Creat Ratio 14.9 RATIO (10-20); Calcium,Total 9.3 mg/dL (8.5-10.1); Chloride 110 mmol/L (98-107); Creatinine, Serum 1.34 mg/dL (0.70-1.30); EST Glomerular Filtration Rate 54 mL/min (>60); Est Glom Filt Rate - Afr Amer 66 mL/min (>60); Glucose 179 mg/dL (74-106); Magnesium 1.8 mg/dL (1.6-2.6); Potassium 3.5 mmol/L (3.5-5.1); Sodium Level 143 mmol/L (136-145)
== END ==
PROVIDERS: PCP Family Medicine; Referring Provider Internal Medicine Cardiovascular Disease; Visit Provider Internal Medicine Cardiovascular Disease
DX: I25.5 Ischemic cardiomyopathy (principal); I48.0 Paroxysmal atrial fibrillation; I50.22 Chronic systolic (congestive) heart failure
CPT/HCPCS: 36415; 80048; 83735

== ENCOUNTER → 2020-10-22 07:32 | Outpatient (CLI) | payer MEDICARE, OTHER, SELFPAY ==
[2020-06-29 08:38] VITALS: BMI 26.8
[2020-10-22 07:58] LABS: Hemoglobin 12.2 g/dL (13.0-16.5); Mean Corp Hgb Conc 31.3 g/dL (32-36); Mean Corpuscular Hgb 30.5 pg (27.0-32.0); Mean Corpuscular Volume 97.5 fL (80-94); Mean Platelet Vol. 9.9 fl (6.2-12.0); Platelet Count 170 K/mm3 (150-450); RBC Distribution Width CV 14.5 % (11.6-14.6); RBC Distribution Width SD 51.3 fl (35.1-43.9)
[2020-10-22 08:09] LABS: Hemoglobin A1c 7.1 % (3.8-5.6)
[2020-10-22 08:27] LABS: ALB/GLOB Ratio 1.1 RATIO (0.9-2.4); AST(SGOT) 16 U/L (15-37); Alanine Aminotransfer ALT/SGPT 27 U/L (16-61); Albumin, Serum 3.7 g/dL (3.2-5.0); Alkaline Phosphatase 85 U/L (45-117); Anion Gap 8 (5-15); BUN 33 mg/dL (7-18); Chloride 109 mmol/L (98-107); Cholesterol 149 mg/dL (200); Creatinine, Serum 1.57 mg/dL (0.70-1.30); EST Glomerular Filtration Rate 45 mL/min (>60); Est Glom Filt Rate - Afr Amer 55 mL/min (>60); Globulin 3.4 g/dL (2.2-4.2); Glucose 172 mg/dL (74-106); High Density Lipoprotein 69 mg/dL; Protein, Total 7.1 g/dL (6.4-8.2); Sodium Level 143 mmol/L (136-145); Thyroid Stim Hormone (TSH) 1.88 uIU/mL (0.358-3.74); Triglycerides 127 mg/dL; Very Low Density Lipoprotein 25 mg/dL (5-40)
[2020-10-22 08:40] LABS: Vitamin D,25 Hydroxy 55.4 ng/mL
== END ==
PROVIDERS: PCP Family Medicine; Referring Provider Internal Medicine Endocrinology, Diabetes & Metabolism; Visit Provider Internal Medicine Endocrinology, Diabetes & Metabolism
DX: E11.9 Type 2 diabetes mellitus without complications (principal); E55.9 Vitamin D deficiency, unspecified; E03.9 Hypothyroidism, unspecified; N18.30 Chronic kidney disease, stage 3 unspecified; Z79.4 Long term (current) use of insulin
CPT/HCPCS: 36415; 80053; 80061; 82306; 83036; 84443; 85027

== ENCOUNTER → 2020-11-18 10:04 | Outpatient (CLI) | payer MEDICARE, OTHER, SELFPAY ==
[2020-06-29 08:38] VITALS: BMI 26.8
[2020-11-18 10:11] LABS: Bacteria 0 SEEN /hpf (None Seen); Mucous, Urine 0 SEEN /hpf (<or=2+); Red Blood Cells-Urine 0 SEEN /hpf (0-5); Squamous Epithelial Cells - UA 0 SEEN /hpf (0-5)
--- NOTE | 2020-11-18 10:34 | RAD_ITS ---
HISTORY: CHF EXAM: XR Chest 2 Views: COMPARISON: March 20, 2020 FINDINGS: # of images incl. paperwork: 2 Sternal wires, left atrial appendage clip, and left parasternal, left chest wall cardiac defibrillator remains. The minimal pulmonary edema. Lungs are adequately expanded. Heart is not enlarged. No acute osseous pathology perceived. Pulmonary vascularity is distinct. No effusions. RAD/Chest PA and Lateral IMPRESSION: Mild pulmonary edema at 2121 Reported and signed by: Ge Cabrera MD Electronically Signed: Ge Cabrera MD at 21:20 EDT Tel , Service support ,
[2020-11-18 11:02] LABS: Hematocrit 38.2 % (40-54); Hemoglobin 11.9 g/dL (13.0-16.5); Mean Corp Hgb Conc 31.2 g/dL (32-36); Mean Corpuscular Hgb 30.5 pg (27.0-32.0); Mean Corpuscular Volume 97.9 fL (80-94); Platelet Count 172 K/mm3 (150-450); RBC Distribution Width CV 13.9 % (11.6-14.6); RBC Distribution Width SD 49.3 fl (35.1-43.9); White Blood Count 6.9 K/mm3 (4.4-11.0)
[2020-11-18 11:04] LABS: Color, Urine Yellow (Yellow); Glucose, Dipstick Normal (Normal); Ketone-Dipstick Negative (Negative); Leukocyte Esterase-Dipstick Negative /ul (Negative); Nitrite-Dipstick Negative (Negative); Occult Blood-Urine Negative /ul (Negative); Protein-Dipstick 100 mg/dl (Negative); Specific Gravity, Urine 1.015 (1.002-1.030); Urine Bilirubin Dipstick Negative (Negative); Urine Clarity Clear (Clear); Urine Urobilinogen Normal (Normal)
[2020-11-18 11:10] LABS: White Blood Cells 0-5 SEEN /hpf (0-5)
[2020-11-18 12:10] LABS: Anion Gap 3 (5-15); BUN 21 mg/dL (7-18); BUN/Creat Ratio 15.7 RATIO (10-20); Calcium,Total 8.9 mg/dL (8.5-10.1); Chloride 108 mmol/L (98-107); Creatinine, Serum 1.34 mg/dL (0.70-1.30); EST Glomerular Filtration Rate 54 mL/min (>60); Est Glom Filt Rate - Afr Amer 66 mL/min (>60); Glucose 101 mg/dL (74-106); Magnesium 2.1 mg/dL (1.6-2.6); Potassium 3.9 mmol/L (3.5-5.1); Sodium Level 143 mmol/L (136-145); T4 Total, Thyroxin 10.4 ug/dL (4.5-12.1); Thyroid Stim Hormone (TSH) 0.92 uIU/mL (0.358-3.74)
== END ==
PROVIDERS: PCP Family Medicine; Referring Provider Physician Assistant Medical; Visit Provider Physician Assistant Medical
DX: I50.22 Chronic systolic (congestive) heart failure (principal); I25.10 Atherosclerotic heart disease of native coronary artery without angina pectoris; I25.5 Ischemic cardiomyopathy; N18.9 Chronic kidney disease, unspecified
CPT/HCPCS: 36415; 71046; 80048; 81001; 83735; 83880; 84436; 84443; 85027

== ENCOUNTER 2020-11-24 09:02 | Emergency (ER) | payer MEDICARE, OTHER, SELFPAY ==
[2020-06-29 08:38] VITALS: BMI 26.8
[2020-11-24 09:03] VITALS: BP 147/49; PULSE 64; RESP 20; TEMP 36.6; O2SAT 99; BMI 26.3
--- NOTE | 2020-11-24 09:16 | EKG12_ITS ---
Test Reason : SOB Blood Pressure : / mmHG Vent. Rate : 063 BPM Atrial Rate : 063 BPM P-R Int : 250 ms QRS Dur : 156 ms QT Int : 462 ms P-R-T Axes : 048 027 075 degrees QTc Int : 472 ms Sinus rhythm with 1st degree A-V block Left bundle branch block Abnormal ECG Confirmed by JULEE SPARKS, KONSTANTIN ([id number]), editor in chief ANNE ORDAZ ([id number]) on 11/26/2020 12:39:48 PM Referred By: PAKO Confirmed By:KONSTANTIN LADD MD
--- NOTE | 2020-11-24 09:17 | ED.DCSUM_ITS ---
History of Present Illness Chief Complaint: Shortness of Breath Informant: Patient, Family Onset: Days Context: Gradual Onset Timing: Intermittent Narrative: Patient is an 80-year-old male presenting from home with his for increased shortness of breath. Patient states he is having episodes were all this and he feels like he cannot catch his breath. He states he has 5-6 episodes a day. He was having some wheezing but he is albuterol and that seem to help. He denies associated chest pain. States it is been worsening over the past 2 to 3 days and that is why he came in. He did have an x-ray ordered by his engineer operations and maintenance office which showed some fluid around the lungs. Patient denies any associated nausea, vomiting, fever or chills. He states he had one Covid vaccine is actually due to have a second 1 tomorrow. He has been compliant with his Eliquis. He denies any change in urination. No other complaints at this time. Past Medical History - Allergies and Home Meds Allergies/Adverse Reactions: Allergies LAURA Inhibitors Adverse Reaction (Intermediate, Verified 11/24/20 09:05) cough enalapril Adverse Reaction (Intermediate, Verified 11/24/20 09:05) Shortness of breath adhesive tape Adverse Reaction (Verified 11/24/20 09:05) rash azithromycin [From Zithromax Z-Robert] Adverse Reaction (Verified 11/24/20 09:05) Other levofloxacin [From Levaquin] Adverse Reaction (Verified 11/24/20 09:05) Other warfarin [From Coumadin] Adverse Reaction (Verified 11/24/20 09:05) bleeding under the skin Primary Care Physician: Corin Hernandez MD [Primary Care Provider] - Past Medical History: - - Ischemic cardiomyopathy, proximal atrial fibrillation, Coronary artery disease, hypertension, left bundle branch block, CKD, hyperlipidemia, history of V. fib arrest Surgical History: cholecystectomy, coronary bypass surgery, pacemaker implantation, - - ICD implantable device, prostate surgery. 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 Lives: Spouse/ Significant Other Smoking Status: Never smoker - Family History Maternal Family History: Family History (Last Reviewed 06/29/20 @ 11:[address] Bunny Verdin MD) Father Peritonitis Mother CVA (cerebral vascular accident) Family History: Reports: No pertinent history Paternal Family History: Family History (Last Reviewed 06/29/20 @ 11:[address] Bunny Verdin MD) Father Peritonitis Mother CVA (cerebral vascular accident) Family History: Reports: Heart Disease Review of Systems General: Denies: Chills, Fever, Sweats Eyes: Denies: Visual changes - bilaterally, Diplopia ENT: Denies: Rhinorrhea, Sore throat Cardiovascular: Denies: Chest pain, Palpitations Respiratory: Reports: Dyspnea. Denies: Cough, Sputum, Dyspnea on exertion Gastrointestinal: Denies: Abdominal pain, Nausea, Vomiting, Diarrhea, Melena, Hematochezia Genitourinary: Denies: Dysuria, Hematuria, Frequency Musculoskeletal: Denies: Back pain, Extremity Pain Skin: Denies: Rash, Wounds Neurological: Denies: Headache, Weakness, Numbness Physical Exam Vital Signs/Narrative: Vital Signs Temp Pulse Resp BP Pulse Ox 11/24/20 09:03 97.9 F 64 20 H 147/49 H 99 Inital Vital Signs reviewed: Yes General: Well nourished, Well developed, No Acute Distress Head: Normocephalic, Atraumatic Eyes: Perrl, EOMI ENT: Moist mucous membranes, No rhinorrhea. Negative for: Nasal congestion Neck: Supple, Nontender, No JVD Cardiovascular: Regular rate, Regular rhythm, No murmurs Respiratory: No distress, CTA bilaterally, Chest nontender. Negative for: Wheezing, Diminished, Decreased Air Movement Abdomen: Soft, Nontender, Nondistended, Normal bowel sounds Back: Nontender, Normal Inspection Extremities: Nontender, No edema Skin: Normal color, No rash Neurological: Alert, Oriented x3, Cranial nerves II-XII grossly intact, Normal Strength, Normal Sensation Psychological: Normal affect, Normal Mood Diagnostic/Tx/Re-eval Chest X-Ray - ED: 1 View, Read by ED Physician, Read by Radiologist, No Acute Disease Clinical Impression(s) from Imaging Studies Chest X-Ray 11/24/20 09:40 IMPRESSION: Stable examination. No acute abnormality is seen. Electronically Signed: Angelito Hylton MD at 9:54 EDT , Service support , Laboratory Data 11/24/20 11/24/20 11/24/20 09:40 09:40 09:40 WBC 7.6 RBC 4.12 L Hgb 12.5 L Hct 40.2 MCV 97.6 H MCH 30.3 MCHC 31.1 L RDW Std Deviation 48.6 H RDW Coeff of [place] 13.5 Plt Count 165 MPV 10.5 Immature Gran % (Auto) 0.300 Neut % (Auto) 70.9 H Lymph % (Auto) 16.5 L [place] % (Auto) 9.6 Eos % (Auto) 2.2 Baso % (Auto) 0.5 Absolute Neuts (auto) 5.4 Absolute Lymphs (auto) 1.25 Nucleated RBC % 0 Sodium 141 Potassium 4.0 Chloride 101 Carbon Dioxide 33.0 H Anion Gap 7 BUN 34 H Creatinine 1.80 H Estim Creat Clear Calc 36.79 Est GFR (MDRD) Af Amer 47 L Est GFR (MDRD) Non-Af 39 L BUN/Creatinine Ratio 18.9 Glucose 96 Calcium 10.2 H Troponin I < 0.015 B-Natriuretic Peptide 169.4 H - Rhythm Strip Rhythm Strip: Sinus Rhythm Rate: 63 Ectopy: None - EKG Initial EKG Interpretation: Sinus Rhythm, LBBB, - - Sinus rhythm with first degree AV block [place] interval 250 Left bundle branch block QRS 156 QTc 472 Normal axis No acute ST segment changes No change from prior EKG on 09/28/2020 - Medical Decision Making Patient evaluated for intermittent episodes of shortness of breath. He appears nontoxic in no acute distress. He is currently asymptomatic. His vital signs are normal. Lung sounds are clear. He is ambulated has no hypoxia or tachypnea.Does have an extensive cardiac history however his EKG does not show any acute changes, BNP is mildly elevated at 169 but this is his baseline. Troponin is negative. He does not have any associated chest pain. Patient's CBC shows a mild hemoglobin of 12.5 however this is his baseline. BMP shows a mildly elevated creatinine of 1.8 but it looks like this is also near his baseline as he fluctuates between 1.3 and 1.7. X-ray does not show any acute process. I do not think patient is having an acute cardiac event, decompensated heart failure, PE (he has been compliant with his anticoagulation) or acute infection that explains his symptoms. Case is discussed with his engineer operations and maintenance, Dr. Verdin, who is comfortable with outpatient follow-up. Patient is counseled that the cause of his symptoms is not clear however he does not need to be admitted to the hospital. He is instructed that he can get his Covid vaccine tomorrow. Patient is counseled on signs and symptoms requiring return to the emergency room. Patient verbalizes agreement and understand this plan. Patient discharged home in stable and improved condition. ED Disposition - Plan for ED Patient: Disposition: Home or Assisted Living Diagnosis: Dyspnea, unspecified, Left bundle branch block, Chronic kidney disease (CKD) Instructions: ED Dyspnea Referrals: Corin Hernandez MD [Primary Care Provider] - Additional Instructions: The cause of your shortness of breath is not clear. Your work-up here was largely normal. Please follow-up with your engineer operations and maintenance for further evaluation. Return to the emergency room if you have worsening symptoms. It should be safe for you to get your second Covid vaccine tomorrow.
[2020-11-24 09:27] VITALS: BP 116/67; PULSE 71; RESP 20; TEMP 36.6; O2SAT 98
--- NOTE | 2020-11-24 09:40 | RAD_ITS ---
STUDY: X-RAY CHEST REASON FOR EXAM: Male, 80 years old. Sob . History of CHF. TECHNIQUE: Single AP portable view of the chest. COMPARISON: Comparison is made with prior study dated 11/18/2020. FINDINGS: EKG electrodes are seen. The lungs are clear and expanded. There is no demonstrated pleural abnormality. Sternal cerclage wires are present from a prior sternotomy. Atrial clip is seen. A left parasternal defibrillator is seen. Normal mediastinum and alon. Normal visualized pulmonary arteries. Normal visualized aortic arch and descending thoracic aorta. Normal visualized thoracic spine. Normal visualized ribs, clavicles, and shoulders. There is no demonstrated abnormality of the visualized soft tissue structures of the upper abdomen. RAD/Chest 1 View (Portable) IMPRESSION: Stable examination. No acute abnormality is seen. Electronically Signed: Angelito Hylton MD at 9:54 EDT , Service support ,
[2020-11-24 09:48] LABS: Absolute Lymphocyte Count 1.25 X10^3/uL (0.83-4.51); Absolute Neutrophil Count 5.4 X10^3/uL (2.0-7.7); Basophil# 0.04 X10^3/uL; Basophil% 0.5 % (0-1); Eosinophil# 0.17 X10^3/uL; Eosinophils% 2.2 % (0-5); Hematocrit 40.2 % (40-54); Hemoglobin 12.5 g/dL (13.0-16.5); Lymphocyte # 1.25 X10^3/ul (4.0); Lymphocyte % 16.5 % (19-41); Mean Corp Hgb Conc 31.1 g/dL (32-36); Mean Corpuscular Hgb 30.3 pg (27.0-32.0); Mean Corpuscular Volume 97.6 fL (80-94); Mean Platelet Vol. 10.5 fl (6.2-12.0); Monocyte# 0.73 X10^3/uL; Monocyte% 9.6 % (0-10); NRBC Flagged by Analyzer 0 % (0-5); Neutrophil # 5.36 X10^3/uL (2.7-7.7); Neutrophil % 70.9 % (47-70); Platelet Count 165 K/mm3 (150-450); RBC Distribution Width CV 13.5 % (11.6-14.6); RBC Distribution Width SD 48.6 fl (35.1-43.9); Red Blood Count 4.12 M/mm3 (4.6-6.2); White Blood Count 7.6 K/mm3 (4.4-11.0)
[2020-11-24 09:50] VITALS: O2SAT 94
[2020-11-24 10:07] LABS: Anion Gap 7 (5-15); BNP,B-Type NATRIURETIC PEPTIDE 169.4 pg/mL (0-100); BUN 34 mg/dL (7-18); BUN/Creat Ratio 18.9 RATIO (10-20); Calcium,Total 10.2 mg/dL (8.5-10.1); Chloride 101 mmol/L (98-107); EST Glomerular Filtration Rate 39 mL/min (>60); Est Glom Filt Rate - Afr Amer 47 mL/min (>60); Estimated Creatinine Clearance 36.79 ml/min; Glucose 96 mg/dL (74-106); Sodium Level 141 mmol/L (136-145)
[2020-11-24 11:29] VITALS: BP 116/67; PULSE 63; RESP 18; TEMP 36.6; O2SAT 98
[2020-11-24 11:31] LABS: Bedside Glucose 96 mg/dL (70-110)
== END 2020-11-24 11:30 | disposition home or self-care (01) ==
PROVIDERS: Emergency Provider Emergency Medicine; PCP Family Medicine
DX: R06.00 Dyspnea, unspecified (principal); I44.7 Left bundle-branch block, unspecified; N18.9 Chronic kidney disease, unspecified; E78.5 Hyperlipidemia, unspecified; I13.0 Hypertensive heart and chronic kidney disease with heart failure and stage 1 through stage 4 chronic kidney disease, or unspecified chronic kidney disease; I25.10 Atherosclerotic heart disease of native coronary artery without angina pectoris; I25.5 Ischemic cardiomyopathy; I48.91 Unspecified atrial fibrillation; I50.9 Heart failure, unspecified; Z82.3 Family history of stroke; Z82.49 Family history of ischemic heart disease and other diseases of the circulatory system; Z86.74 Personal history of sudden cardiac arrest; Z88.1 Allergy status to other antibiotic agents; Z90.49 Acquired absence of other specified parts of digestive tract; Z95.0 Presence of cardiac pacemaker
CPT/HCPCS: 71045; 80048; 82962; 83880; 84484; 85025; 87426; 93005; 99285; A4216

== ENCOUNTER → 2020-12-08 10:46 | Outpatient (CLI) | payer MEDICARE, OTHER, SELFPAY ==
[2020-11-29 15:14] VITALS: BMI 26.6
--- NOTE | 2020-12-08 10:48 | ECHOCS_ITS ---
Reason For Study: CHF Procedure This was a 2D Doppler, Color Flow transthoracic echocardiogram. The study was technically difficult. Contrast injection was performed. Exam performed in department. Left Ventricle Normal LV size. Moderate concentric left ventricular hypertrophy. Mild segmental systolic dysfunction (see wall motion). The estimated ejection fraction is 50 %. Septal motion consistent with IVCD. Right Ventricle Normal RV size. Normal systolic function. Atria The left atrium is moderately enlarged. Normal right atrium. Mitral Valve Mild mitral valve prolapse. Tricuspid Valve Normal tricuspid valve. Mild to moderate (1-2+) tricuspid valve insufficiency. Pulmonary artery systolic pressure is 43 mmHg. Mild pulmonary hypertension. Aortic Valve Trisinus/trileaflet aortic valve. Mild (1+) aortic valve insufficiency. Pulmonic Valve Normal pulmonic valve. Great Vessels Normal aortic root. Pericardium/Pleural No pericardial effusion. Medication 22 gauge I.V. with prn adaptor inserted into right arm. Diluted definity 3ml given slow IV push to enhance endocardial definition. MMode/2D Measurements & Calculations LVIDd: 4.9 cm IVSd: 1.3 cm LA dimension: 5.3 cm LVIDs: 3.6 cm LVPWd: 1.6 cm FS: 27.3 % LAV(MOD-bp): 100.5 ml LA A4 area: 30.7 cm2 RA A4 area: 20.3 cm2 LAV(MOD-bp) Indexed: 45.8 ml/m2 LAV(MOD-sp2): 85.9 ml LAV(MOD-sp4): 114.4 ml Time Measurements MV dec time: 0.22 sec Doppler Measurements & Calculations MV E max yunier: 97.3 cm/sec Lat Peak E' Yunier: 10.1 cm/sec Med Peak E' Yunier: 5.3 cm/sec MV A max yunier: 65.7 cm/sec E/E' lat: 9.6 E/E' med: 18.4 MV E/A: 1.5 MV V2 max: 106.8 cm/sec MV P1/2t max yunier: 106.8 cm/sec Ao V2 max: 139.8 cm/sec MV max P.6 mmHg MV P1/2t: 82.8 msec Ao max P.8 mmHg MV V2 mean: 56.0 cm/sec MV dec slope: 377.6 cm/sec2 MV mean P.6 mmHg MV V2 VTI: 30.3 cm MVA(P1/2t): 2.7 cm2 AI max yunier: 376.0 cm/sec LV V1 max: 97.3 cm/sec PA V2 max: 95.2 cm/sec AI max P.5 mmHg LV V1 max P.8 mmHg AI dec slope: 141.5 cm/sec2 AI P1/2t: 778.4 msec PI end-d yunier: 143.4 cm/sec TR max yunier: 310.1 cm/sec TR max P.5 mmHg ECHO/Echo Complete W/ Contrast Interpretation Summary Normal LV size. Moderate concentric left ventricular hypertrophy. Mild segmental systolic dysfunction (see wall motion). The estimated ejection fraction is 50 %. The left atrium is moderately enlarged. Mild (1+) aortic valve insufficiency. Pulmonary artery systolic pressure is 43 mmHg. Mild pulmonary hypertension. Contrast injection was performed. Ordering Physician: Bhavna Chiang Referring Physician: Corin Hernandez M.D. Performed By: Myron Machado RCS
== END ==
PROVIDERS: PCP Family Medicine; Referring Provider Physician Assistant Medical; Visit Provider Physician Assistant Medical
DX: I50.9 Heart failure, unspecified (principal); I27.20 Pulmonary hypertension, unspecified; I35.1 Nonrheumatic aortic (valve) insufficiency
CPT/HCPCS: 93306; Q9957; A4216; C8929

== ENCOUNTER → 2021-01-17 12:56 | Outpatient (CLI) | payer MEDICARE, OTHER, SELFPAY ==
[2020-12-29 11:13] VITALS: BMI 26.9
[2020-12-31 13:05] VITALS: BMI 26.9
--- NOTE | 2021-01-17 12:57 | CDU_ITS ---
Reason For Study: Bilateral carotid bruits Rt. Velocities/BP Lt. Velocities/BP Prox CCA 67.7/10.3 cm/sec. Prox CCA 65.0/14.6 cm/sec. Mid CCA 70.3/10.3 cm/sec. Mid CCA 65.0/15.8 cm/sec. Dist CCA 59.8/9.0 cm/sec. Dist CCA 68.6/14.6 cm/sec. Prox ICA 85.9/16.8 cm/sec. Prox ICA 282.3/60.7 cm/sec. Mid ICA 89.8/22.0 cm/sec. Mid ICA 150.0/38.6 cm/sec. Dist ICA 99.7/30.3 cm/sec. Dist ICA 118.9/41.2 cm/sec. Rt. ICA/CCA = 99.7/70.3=1.4. Lt. ICA/CCA = 282.3/68.6=4.1. Prox ECA 83.3/0.0 cm/sec. Prox ECA 123.5/6.6 cm/sec. Rt. Vert. 93.7/20.6 cm/sec. Lt. Vert. 57.6/15.8 cm/sec. Right Extracranial There is homogeneous, irregular atherosclerotic plaque noted in the right common carotid artery. There is heterogeneous, irregular atherosclerotic plaque noted in the right internal carotid artery. There is intimal thickening but no significant atherosclerotic plaque noted in the right external carotid artery. Antegrade flow is noted in the right vertebral artery. Left Extracranial There is heterogeneous, irregular atherosclerotic plaque noted in the left common carotid artery. There is heterogeneous, irregular atherosclerotic plaque noted in the left internal carotid artery. The atherosclerotic plaque causes acoustic shadowing. There is homogeneous, smooth atherosclerotic plaque noted in the left external carotid artery. Antegrade flow is noted in the left vertebral artery. There is heterogeneous, irregular atherosclerotic plaque noted in the left bulb. Acoustic shadowing. VL/Carotid Duplex Ultrasound Interpretation Summary Irregular calcific plaque within the right internal carotid artery with less th an 50% stenosis Less than 50% stenosis right external carotid artery Irregular calcific plaque with shadowing at the proximal left internal carotid artery with greater than 70% stenosis Less than 50% stenosis left external carotid artery Patent and antegrade vertebrals bilaterally Findings suggest progression of stenosis of the left internal carotid artery fr om the previous examination of April 16, 2017 Ordering Physician: Bhavna Chiang Referring Physician: Corin Hernandez Performed By: Toña Green, ALEXX, RVT
== END ==
PROVIDERS: PCP Family Medicine; Referring Provider Physician Assistant Medical; Visit Provider Physician Assistant Medical
DX: R09.89 Other specified symptoms and signs involving the circulatory and respiratory systems (principal)
CPT/HCPCS: 93880

== ENCOUNTER 2021-01-30 05:18 | Emergency (ER) | payer MEDICARE, OTHER, SELFPAY ==
[2020-12-31 13:05] VITALS: BMI 26.9
[2021-01-30 05:19] VITALS: BP 170/93; PULSE 82; RESP 18; TEMP 36.6; O2SAT 98; BMI 27.3
[2021-01-30 05:23] VITALS: O2SAT 97
--- NOTE | 2021-01-30 05:43 | RAD_ITS ---
STUDY: X-RAY CHEST REASON FOR EXAM: Male, 80 years old. Dyspnea TECHNIQUE: Single AP portable view of the chest. COMPARISON: 11/24/2020 FINDINGS: Electronic device and left-sided chest which is unchanged. Status post median sternotomy. The lungs are clear and expanded. There is no demonstrated pleural abnormality. There is moderate cardiac enlargement. Normal mediastinum and alon. Normal visualized pulmonary arteries. Normal visualized aortic arch and descending thoracic aorta. Normal visualized thoracic spine. Normal visualized ribs, clavicles, and shoulders. There is no demonstrated abnormality of the visualized soft tissue structures of the upper abdomen. RAD/Chest 1 View (Portable) IMPRESSION: No change from 11/24/2020 Electronically Signed: Gómez Dalton MD at 6:33 EDT Tel , Service support ,
--- NOTE | 2021-01-30 05:44 | EKG12_ITS ---
Test Reason : DYSRHYTHMIA Blood Pressure : / mmHG Vent. Rate : 071 BPM Atrial Rate : 071 BPM P-R Int : 248 ms QRS Dur : 148 ms QT Int : 450 ms P-R-T Axes : 053 007 077 degrees QTc Int : 489 ms Sinus rhythm with 1st degree A-V block with occasional Premature ventricular complexes Left bundle branch block Abnormal ECG Confirmed by JULEE SPARKS, KONSTANTIN ([id number]), senior technical editor ANNE ORDAZ ([id number]) on 02/01/2021 10:13:06 AM Referred By: DONNIE Confirmed By:KONSTANTIN LADD MD
--- NOTE | 2021-01-30 05:46 | EDS_ITS ---
HPI History of Present Illness Chief Complaint: Shortness of Breath Informant: patient Onset/Context/Timing Onset: Today and Hours (2) Context: sudden Timing: Continuous Worsened by: Nothing Relieved by: other (Sitting up) Associated Symptoms cough; Negative for rhinorrhea, ear pain, fever, sore throat or chills Chest Pain: Positive for None Narrative Narrative: Patient presents with shortness of breath that began approximately 2 hours prior to arrival. Patient states he woke up and was short of breath at that time. Patient states it has been constant. Patient states nothing makes his breathing worse but it is better when he sits up. Patient admits to a cough but denies any sputum production. Patient denies any fevers or chills. Patient denies any chest pain. Patient denies any exposures to COVID-19. [facility] Medical History Anemia Atherosclerotic heart disease of [place] coronary artery without angina pectoris Back pain Bacterial endocarditis Bilateral carotid bruits Cardiac arrest with ventricular fibrillation (06/2015) Carotid stenosis, left Chronic kidney disease (CKD) Chronic systolic (congestive) heart failure Dark stools Elevated LFTs Essential (primary) hypertension Fatigue History of acute bacterial endocarditis HLD (hyperlipidemia) Hypokalemia Hypothyroidism Infection and inflammatory reaction due to other cardiac and vascular devices, implants and grafts, initial encounter Infectious endocarditis Iron deficiency Ischemic cardiomyopathy Left bundle branch block Malaise Malignant pericardial effusion Night sweats Nonrheumatic mitral (valve) prolapse Paroxysmal atrial fibrillation Postoperative atrial fibrillation Primary idiopathic hypertrophic cardiomyopathy Thalamic mass Type II diabetes mellitus Home Medications budesonide-formoterol 2 puff INHALATION DAILY 05/20/18 [History Last Taken 19:00 2 puff] cholecalciferol (vitamin D3) 1,000 unit PO BID 05/20/18 [History Last Taken 03/20/20 19:00 1000 units] ferrous gluconate 325 mg PO BIDCM 05/20/18 [History Last Taken 03/20/20 19:00 325 mg] insulin aspart U-100 12 units SC BREAKFAST 05/20/18 [History Last Taken 03/20/20 08:00 12 units] insulin aspart U-100 12 units SC DINNER 05/20/18 [History Last Taken 03/20/20 18:00 12 units] levothyroxine 100 mcg PO DAILY 05/20/18 [History Last Taken 03/20/20 06:00 100 mcg] levothyroxine 200 mcg PO JARVIS 05/20/18 [History Last Taken 03/20/20 06:00 200 mcg] multivitamin 1 each PO DAILY 05/20/18 [History Last Taken 03/20/20 08:00 1 each] omega-3 fatty acids-fish oil 1 each PO DAILY 05/20/18 [History Last Taken 03/20/20 08:00 1 each] tiotropium bromide 18 mcg IH BID 05/20/18 [History Last Taken 03/20/20 19:00 18 mcg] apixaban 2.5 mg tablet 2.5 mg PO BID 06/29/20 [History Last Taken Unknown] metformin 500 mg tablet,extended release 24 hr 1,000 mg PO DINNER tablet 06/29/20 [History Last Taken Unknown] atorvastatin 10 mg tablet 10 mg PO QHS #90 tablet 07/12/20 [Rx Last Taken Unknown] Handicap Parking Placard #1 ea 08/25/20 [Rx Last Taken Unknown] albuterol sulfate 90 mcg/actuation aerosol inhaler 2 puff INHALATION Q4H PRN #18 gm 11/22/20 [Rx Last Taken Unknown] guaifenesin 600 mg PO BID 11/24/20 [History Last Taken Unknown] insulin glargine 12 unit SQ QHS 11/24/20 [History Last Taken Unknown] lactobacillus comb no.10 1 each PO BID 11/24/20 [History Last Taken Unknown] magnesium oxide 400 mg PO BID 11/24/20 [History Last Taken Unknown] carvedilol 25 mg tablet 25 mg PO BID #180 tablet 12/01/20 [Rx Last Taken Unknown] furosemide 40 mg tablet 40 mg PO DAILY tablet 12/08/20 [History Last Taken Unknown] ascorbic acid (vitamin C) 1,000 mg tablet 1,000 mg PO BID tab 12/29/20 [History Last Taken Unknown] fluticasone propionate 50 mcg/actuation nasal spray,suspension 2 spray INTRANASAL DAILY 12/29/20 [History Last Taken Unknown] ndlaha-retcbdvp-dkbidpy 10,000-32,000-42,000 unit capsule,delayed rel 2 cap PO .COMPLEX 12/29/20 [History Last Taken Unknown] albuterol sulfate 2.5 mg CONTINUOUS NEBULIZATION QHS 01/30/21 [History Last Taken Unknown] amlodipine 2.5 mg PO DAILY 01/30/21 [History Last Taken Unknown] Allergy/AdvReac Type Severity Reaction Status Date / Time LAURA Inhibitors AdvReac Intermediate cough Verified 01/30/21 05:23 enalapril AdvReac Intermediate Shortness Verified 01/30/21 05:23 of breath adhesive tape AdvReac rash Verified 01/30/21 05:23 azithromycin AdvReac Other Verified 01/30/21 05:23 [From Zithromax Z-Robert] levofloxacin [From Levaquin] AdvReac Other Verified 01/30/21 05:23 warfarin [From Coumadin] AdvReac bleeding Verified 01/30/21 05:23 under the skin Family History Father , age 47 from peritonitis Peritonitis Mother , age 93 CVA (cerebral vascular accident) several TIA's Surgical History Abnormal fractional flow reserve (FFR) on cardiac catheterization (02/2017) H/O coronary artery bypass surgery (04/27/17) History of cardioversion (04/2017) History of implantable cardiac defibrillator (ICD) (01/31/16) History of left heart catheterization ICD (implantable cardioverter-defibrillator) infection Social History Smoking Status: Former smoker alcohol intake: never substance use type: does not use caffeine: No what type of physical activity do you participate in: walking frequency: 5-6 times per week duration: 15-30 minutes/day seatbelt use: always do you feel safe at home: Yes ROS ROS ED Constitutional Constitutional ED: Denies chills or fever(s) Eyes Eyes: Denies blurry vision or change in vision ENT ENT ED: Denies rhinorrhea or sore throat Cardiovascular Cardiovascular: Denies chest pain or palpitations Respiratory/Chest Respiratory/Chest: Reports cough and dyspnea Gastrointestinal Gastrointestinal: Denies nausea or vomiting Genitourinary Genitourinary ED: Denies dysuria or hematuria Musculoskeletal Musculoskeletal: Denies back pain or neck pain Integumentary Denies abscess or rash Neurologic Neurologic: Denies headache(s) or weakness Allergic/Immunologic Allergic/Immunologic ED: Denies mouth swelling or urticaria EXAM Physical Exam Const Vital Signs: 01/30/21 05:19 01/30/21 05:23 01/30/21 06:47 Temperature 97.9 F Temperature Source Oral Pulse Rate 82 69 Respiratory Rate 18 17 Respiratory Effort Short of Breath Respiratory Pattern Normal Blood Pressure 170/93 H 153/94 H Blood Pressure Mean 118 113 Pulse Ox 98 95 Oxygen Delivery Method Room Air Room Air Room Air Positive well nourished and well developed General Appearance ED: well developed HEENT Reports moist mucous membranes normocephalic and atraumatic Neck supple and no JVD Resp normal respiratory effort Auscultation: diminished lung sounds bilateral lower Cardio regular rate, regular rhythm and no murmurs Rate: regular rate Rhythm: regular rhythm GI non-tender and non-distended Auscultation: normoactive bowel sounds Palpation: soft Extremity normal to inspection General Extremety ED: Negative for edema or tenderness General Extremity: Negative for edema Neuro oriented x3, CN's II-XII intact bilaterally and no sensory deficits noted Sensorium / Orientation: alert Motor Exam: strength 5/5 throughout Psych mental status grossly normal Skin Rashes: no rashes MDM MDM MDM Narrative Medical decision making narrative: EKG was obtained. On my interpretation, there is normal sinus rhythm with a first-degree AV block with a rate of 71. There are occasional PVCs noted. There is a left bundle branch block pattern noted. There are no acute ST or T wave changes. Portable 1 view chest x-ray was obtained. On my interpretation, lung [place] are clear. There is normal cardiac silhouette. Bony thorax is normal. There is no acute process noted. Radiologist also interpreted the x-ray and agrees. CBC was obtained and showed a mild anemia with hemoglobin of 11.3 hematocrit 35.3. Comprehensive metabolic profile showed a slightly elevated creatinine of 1.43 and a BUN of 32. These were improved from previous results. Troponin was normal. BNP was obtained and was 304.3. This is consistent with previous results. Patient was able to ambulate and maintain a pulse oximeter of 96% on room air. Patient was advised of his findings. Patient was instructed to follow-up with his primary care physician in 3 to 5 days. Patient understood and was agreeable with the plan. All questions were answered. Lab Data Attestation: I reviewed the patient's lab results. Labs: Laboratory Results - last 24 hr 01/30/21 01/30/21 01/30/21 06:10 06:10 06:10 WBC 7.3 RBC 3.64 L Hgb 11.3 L Hct 35.3 L MCV 97.0 H MCH 31.0 MCHC 32.0 RDW Std Deviation 49.1 H RDW Coeff of [place] 13.9 Plt Count 139 L MPV 9.6 Immature Gran % (Auto) 0.400 Neut % (Auto) 72.6 H Lymph % (Auto) 14.4 L Sharkey % (Auto) 10.2 H Eos % (Auto) 1.9 Baso % (Auto) 0.5 Absolute Neuts (auto) 5.3 Absolute Lymphs (auto) 1.05 Nucleated RBC % 0 Sodium 140 Potassium 3.6 Chloride 107 Carbon Dioxide 28.0 Anion Gap 5 BUN 32 H Creatinine 1.43 H Estim Creat Clear Calc 46.31 Est GFR (MDRD) Af Amer 61 Est GFR (MDRD) Non-Af 50 L BUN/Creatinine Ratio 22.4 H Glucose 184 H Calcium 8.7 Total Bilirubin 0.50 AST 14 L ALT 22 Alkaline Phosphatase 65 Troponin I < 0.015 B-Natriuretic Peptide 304.3 H Total Protein 6.3 L Albumin 3.2 Globulin 3.1 Albumin/Globulin Ratio 1.0 Radiography Chest X-Ray - ED: 1 View, Read by ED Physician, Read by Radiologist and Normal Diagnostic Testing: Radiology Impression Chest X-Ray 01/30/21 05:43 IMPRESSION: No change from 11/24/2020 Electronically Signed: Gómez Dalton MD at 6:33 EDT Tel , Service support , EKG Initial EKG: Attestation: I personally reviewed and interpreted this EKG as follows: Interpretation: Sinus Rhythm (71 with first-degree AV block and occasional PVCs.), No Acute Injury Pattern and LBBB Discharge Plan Triage Chief Complaint: Shortness of Breath ED Provider: Jose Carlos Winchester Dx/Rx/DC Orders Clinical Impression: Dyspnea Instructions: ED Dyspnea Prescriptions: No Action Eliquis 2.5 mg tablet 2.5 mg PO BID RF: 0 fluticasone propionate [Flonase Allergy Relief] 50 mcg/actuation spray,jarvis spension 2 spray intranasal DAILY RF: 0 multivitamin 1 EACH tablet 1 each PO DAILY RF: 0 levothyroxine 100 MCG tablet 100 mcg PO DAILY RF: 0 levothyroxine 100 MCG tablet 200 mcg PO JARVIS RF: 0 cholecalciferol (vitamin D3) 1,000 UNIT capsule 1,000 unit PO BID RF: 0 insulin aspart U-100 100 UNITS/ML insulin pen 12 units SC BREAKFAST RF: 0 insulin aspart U-100 100 UNITS/ML insulin pen 12 units SC DINNER RF: 0 tiotropium bromide 18 MCG capsule, w/inhalation device 18 mcg IH BID RF: 0 omega-3 fatty acids-fish oil 1 EACH capsule 1 each PO DAILY RF: 0 budesonide-formoterol 1 INHALER inhaler 2 puff inhalation DAILY RF: 0 ferrous gluconate 325 MG tablet 325 mg PO BIDCM RF: 0 ascorbic acid (vitamin C) 1,000 mg tablet 1,000 mg PO BID RF: 0 metformin 500 mg tablet extended release 24 hr 1,000 mg PO DINNER RF: 0 insulin glargine 100 UNIT/ML solution 12 unit SQ QHS RF: 0 magnesium oxide 400 MG capsule 400 mg PO BID RF: 0 lactobacillus comb no.10 1 EACH capsule 1 each PO BID RF: 0 guaifenesin 600 MG tablet extended release 12hr 600 mg PO BID RF: 0 hfctxs-xnrduqod-ifbldme 10,000-32,000 -42,000 unit capsule,delayed release(DR/EC) 2 cap PO .COMPLEX RF: 0 albuterol sulfate 2.5 mg /3 mL (0.083 %) solution for nebulization 2.5 mg continuous nebulization QHS RF: 0 amlodipine 5 mg tablet 2.5 mg PO DAILY RF: 0 atorvastatin 10 mg tablet 10 mg PO QHS Qty: 90 RF: 3 (DME) Handicap Parking Placard See Rx Instructions .Route .MEDSUPPLY Qty: 1 RF: 0 albuterol sulfate 90 mcg/actuation HFA aerosol inhaler 2 puff INHALATION Q4H PRN (Reason: fill as courtesy until 's office open) Qty: 18 RF: 0 carvedilol 25 mg tablet 25 mg PO BID Qty: 180 RF: 3 furosemide 40 mg tablet 40 mg PO DAILY RF: 0 Primary Care Provider: Corin Hernandez Referrals: Corin Hernandez MD [Primary Care Provider] - 3-5 Days Disposition Disposition: Home, self care
[2021-01-30 06:18] LABS: Absolute Lymphocyte Count 1.05 X10^3/uL (0.83-4.51); Absolute Neutrophil Count 5.3 X10^3/uL (2.0-7.7); Basophil# 0.04 X10^3/uL; Basophil% 0.5 % (0-1); Eosinophil# 0.14 X10^3/uL; Eosinophils% 1.9 % (0-5); Hematocrit 35.3 % (40-54); Hemoglobin 11.3 g/dL (13.0-16.5); Lymphocyte # 1.05 X10^3/ul (0.83-4.51); Lymphocyte % 14.4 % (19-41); Mean Platelet Vol. 9.6 fl (6.2-12.0); Monocyte# 0.74 X10^3/uL; Monocyte% 10.2 % (0-10); NRBC Flagged by Analyzer 0 % (0-5); Neutrophil # 5.28 X10^3/uL (2.7-7.7); Neutrophil % 72.6 % (47-70); Platelet Count 139 K/mm3 (150-450); RBC Distribution Width CV 13.9 % (11.6-14.6); RBC Distribution Width SD 49.1 fl (35.1-43.9); Red Blood Count 3.64 M/mm3 (4.6-6.2); White Blood Count 7.3 K/mm3 (4.4-11.0)
[2021-01-30 06:36] LABS: AST(SGOT) 14 U/L (15-37); Alanine Aminotransfer ALT/SGPT 22 U/L (16-61); Albumin, Serum 3.2 g/dL (3.2-5.0); Alkaline Phosphatase 65 U/L (45-117); Anion Gap 5 (5-15); BUN 32 mg/dL (7-18); BUN/Creat Ratio 22.4 RATIO (10-20); Calcium,Total 8.7 mg/dL (8.5-10.1); Chloride 107 mmol/L (98-107); Creatinine, Serum 1.43 mg/dL (0.70-1.30); EST Glomerular Filtration Rate 50 mL/min (>60); Est Glom Filt Rate - Afr Amer 61 mL/min (>60); Estimated Creatinine Clearance 46.31 ml/min; Globulin 3.1 g/dL (2.2-4.2); Glucose 184 mg/dL (74-106); Potassium 3.6 mmol/L (3.5-5.1); Protein, Total 6.3 g/dL (6.4-8.2); Sodium Level 140 mmol/L (136-145)
[2021-01-30 06:47] VITALS: BP 153/94; PULSE 69; RESP 17; O2SAT 95
[2021-01-30 06:54] VITALS: O2SAT 98
[2021-01-30 07:19] LABS: BNP,B-Type NATRIURETIC PEPTIDE 304.3 pg/mL (0-100)
[2021-01-30 07:31] VITALS: BP 157/63; PULSE 73; RESP 18; O2SAT 97
== END 2021-01-30 07:33 | disposition home or self-care (01) ==
PROVIDERS: Emergency Provider Emergency Medicine; PCP Family Medicine
DX: R06.00 Dyspnea, unspecified (principal); I44.0 Atrioventricular block, first degree; I44.7 Left bundle-branch block, unspecified; Z87.891 Personal history of nicotine dependence; D64.9 Anemia, unspecified; E03.9 Hypothyroidism, unspecified; E11.22 Type 2 diabetes mellitus with diabetic chronic kidney disease; E78.5 Hyperlipidemia, unspecified; I13.0 Hypertensive heart and chronic kidney disease with heart failure and stage 1 through stage 4 chronic kidney disease, or unspecified chronic kidney disease; I25.10 Atherosclerotic heart disease of native coronary artery without angina pectoris; I25.5 Ischemic cardiomyopathy; I34.1 Nonrheumatic mitral (valve) prolapse; I48.0 Paroxysmal atrial fibrillation; I50.22 Chronic systolic (congestive) heart failure; Z79.01 Long term (current) use of anticoagulants; Z79.4 Long term (current) use of insulin; Z86.74 Personal history of sudden cardiac arrest; Z79.899 Other long term (current) drug therapy
CPT/HCPCS: 36415; 71045; 80053; 83880; 84484; 85025; 87426; 93005; 99285; A4216

== ENCOUNTER → 2021-02-07 15:46 | Outpatient (CLI) | payer MEDICARE, OTHER, SELFPAY ==
[2021-02-07 14:45] VITALS: BMI 26.3
[2021-02-07 16:44] LABS: Anion Gap 7 (5-15); BUN 23 mg/dL (7-18); BUN/Creat Ratio 17.8 RATIO (10-20); Calcium,Total 9.2 mg/dL (8.5-10.1); Chloride 108 mmol/L (98-107); Creatinine, Serum 1.29 mg/dL (0.70-1.30); EST Glomerular Filtration Rate 57 mL/min (>60); Est Glom Filt Rate - Afr Amer 69 mL/min (>60); Glucose 74 mg/dL (74-106); Potassium 3.5 mmol/L (3.5-5.1); Sodium Level 144 mmol/L (136-145)
== END ==
PROVIDERS: PCP Family Medicine; Referring Provider Surgery; Visit Provider Surgery
DX: N18.9 Chronic kidney disease, unspecified (principal)
CPT/HCPCS: 36415; 80048

== ENCOUNTER → 2021-02-11 13:31 | Outpatient (CLI) | payer MEDICARE, OTHER, SELFPAY ==
[2021-02-07 14:45] VITALS: BMI 26.3
--- NOTE | 2021-02-11 13:33 | CT_ITS ---
STUDY: CTA NECK WITH CONTRAST REASON FOR EXAM: Male, 80 years old. Carotid stenosis RADIATION DOSAGE (If Supplied By Facility): CTDIvol = ( 24.90 ) mGy, DLP = ( 759.36 ) mGycm TECHNIQUE: CT angiography with multi-detector data acquisition was performed from the aortic arch to the skull base following intravenous administration of IV 100mL [id number]-370. MIP images were reconstructed from the axial data set. Post-processing of the angiographic images was performed, with multiplanar reformation and 3D reconstruction. Individualized dose optimization techniques were used for this CT. COMPARISON: None. FINDINGS: Prior CABG. AORTIC ARCH: There is atherosclerotic calcific plaque formation of the aortic arch and great vessels arising from the aortic arch, without a hemodynamically significant stenosis. There is a normal origin of the brachiocephalic, left common carotid, and left subclavian arteries. Nonstenotic calcific plaque at the origin of the left subclavian artery. RIGHT CAROTID ARTERIES: Normal right common carotid artery (CCA). Normal right common carotid bulb. Normal origin of the right internal carotid (ICA) artery without a hemodynamically significant stenosis. Normal visualized cervical portion of the right internal carotid artery. Normal origin of the right external carotid artery (ECA). LEFT CAROTID ARTERIES: Normal left common carotid artery (CCA). Normal left common carotid bulb. There is severe atherosclerotic plaque formation of the origin of the left internal carotid artery with a near complete occlusion. Normal visualized cervical portion of the left internal carotid artery. Normal origin of the left external carotid artery (ECA). VERTEBRAL ARTERIES: There is enhancement within the bilateral vertebral arteries with a small left vertebral artery, and a dominant right vertebral artery. CT/CTA Neck W/WO Contrast IMPRESSION: High-grade stenosis at the origin of the left internal carotid artery due to dense calcified atherosclerotic plaque formation. Electronically Signed: Angelito Hylton MD at 14:33 EDT , Service support ,
== END ==
PROVIDERS: PCP Family Medicine; Referring Provider Surgery; Visit Provider Surgery
DX: I65.22 Occlusion and stenosis of left carotid artery (principal)
CPT/HCPCS: 70498; Q9967; A4216

== ENCOUNTER → 2021-03-07 10:41 | Outpatient (CLI) | payer MEDICARE, OTHER, SELFPAY ==
[2021-02-07 14:45] VITALS: BMI 26.3
[2021-03-07 13:19] LABS: Hemoglobin A1c 6.7 % (3.8-5.6)
[2021-03-07 13:59] LABS: ALB/GLOB Ratio 1.1 RATIO (0.9-2.4); AST(SGOT) 19 U/L (15-37); Alanine Aminotransfer ALT/SGPT 26 U/L (16-61); Albumin, Serum 3.6 g/dL (3.2-5.0); Alkaline Phosphatase 70 U/L (45-117); Anion Gap 6 (5-15); BUN 31 mg/dL (7-18); BUN/Creat Ratio 21.1 RATIO (10-20); Calcium,Total 9.2 mg/dL (8.5-10.1); Chloride 110 mmol/L (98-107); Creatinine, Serum 1.47 mg/dL (0.70-1.30); EST Glomerular Filtration Rate 49 mL/min (>60); Est Glom Filt Rate - Afr Amer 59 mL/min (>60); Globulin 3.2 g/dL (2.2-4.2); Glucose 66 mg/dL (74-106); Potassium 3.7 mmol/L (3.5-5.1); Protein, Total 6.8 g/dL (6.4-8.2); Sodium Level 145 mmol/L (136-145); T4 Free Direct 1.11 ng/dL (0.76-1.46); Thyroid Stim Hormone (TSH) 2.53 uIU/mL (0.358-3.74)
[2021-03-07 15:20] LABS: Microalbumin:Creatinine Ratio 864.2 mg/g CRE (<30 mg/g CRE)
== END ==
PROVIDERS: PCP Family Medicine; Referring Provider Internal Medicine Endocrinology, Diabetes & Metabolism; Visit Provider Internal Medicine Endocrinology, Diabetes & Metabolism
DX: E11.22 Type 2 diabetes mellitus with diabetic chronic kidney disease (principal); N18.30 Chronic kidney disease, stage 3 unspecified; E03.9 Hypothyroidism, unspecified; E55.9 Vitamin D deficiency, unspecified; Z79.4 Long term (current) use of insulin
CPT/HCPCS: 36415; 80053; 82043; 82570; 83036; 84439; 84443

== ENCOUNTER → 2021-03-16 06:38 | Outpatient (CLI) | payer MEDICARE, OTHER, SELFPAY ==
[2021-03-07 14:25] VITALS: BMI 27.7
--- NOTE | 2021-03-16 13:16 | STRESSREP ---
Stress Test Report Pharmacologic myocardial perfusion stress test. 80-year-old man with a history of coronary artery disease for preoperative cardiac evaluation. Stress protocol: Resting EKG demonstrates normal sinus rhythm with a rate of 80 bpm and a left bundle branch block. Occasional premature ventricular complexes are noted. Resting blood pressure is 148/82 mmHg. 0.4 mg of regadenoson was infused per usual protocol followed by rapid intravenous saline flush injection continuous EKG monitoring was performed. The maximum heart rate attained was 123 bpm which was 89% of max infected heart rate the maximum workload was 1 metabolic equivalent. At rest there were no ST or T wave changes noted to suggest abnormal flow reserve left bundle branch block pattern was noted. At peak infusion nonspecific ST changes were noted. The maximum blood pressure was 150/68 mmHg. No clinical angina was noted. Myocardial perfusion protocol. 11.8 mCi of technetium 99m sestamibi was injected at rest. 0.4 mg of regadenoson was infused per usual protocol. At peak infusion 33.1 mCi of technetium 99m sestamibi was injected stress images were obtained stress and rest images were reconstructed and compared in the short axis vertical long and horizontal long axis. Gated images were also obtained. Perfusion SPECT analysis: Review of the stress images demonstrate normal uptake of tracer noted in all areas of the myocardium. The resting images similarly demonstrate normal uptake of tracer noted in all areas of the myocardium. No areas of reversibility are noted to suggest ischemia and no previous infarct is noted. Gated SPECT analysis: The gated ejection fraction is 51%. Conclusion: Normal pharmacologic myocardial perfusion stress test. Preserved ejection fraction.
== END ==
PROVIDERS: PCP Family Medicine; Referring Provider Physician Assistant Medical; Visit Provider Physician Assistant Medical
DX: Z01.818 Encounter for other preprocedural examination (principal); I25.10 Atherosclerotic heart disease of native coronary artery without angina pectoris; Z95.1 Presence of aortocoronary bypass graft; I25.5 Ischemic cardiomyopathy; I50.22 Chronic systolic (congestive) heart failure; I48.0 Paroxysmal atrial fibrillation; I44.7 Left bundle-branch block, unspecified; I65.22 Occlusion and stenosis of left carotid artery; R09.89 Other specified symptoms and signs involving the circulatory and respiratory systems
CPT/HCPCS: 78452; 93017; A9500; A4216; J2785

== ENCOUNTER 2021-04-06 05:26 | Inpatient (IN) | payer MEDICARE, OTHER, SELFPAY ==
[2021-03-23 12:27] VITALS: BMI 38.7
[2021-04-06] VITALS (52 sets, daily range): BP systolic 120–191; BP diastolic 48–87; PULSE 72–96; RESP 13–18; TEMP 36.1–37; O2SAT 91–100; BMI 27.1; BMI 27.2
[2021-04-06] MEDS: Lactated Ringers 1,000 ML 100 ML IV ×2 (05:35→09:15)
--- NOTE | 2021-04-06 05:41 | PCM.HP.BLA ---
History and Physical Date of Admission: 04/06/21 Visit Reasons: discuss carotid surgery Chief Complaint: Carotid Stenosis Student Services Director Required: No Is patient in pain?: No Allergies LAURA Inhibitors Adverse Reaction (Intermediate, Verified 03/23/21 12:29) cough enalapril Adverse Reaction (Intermediate, Verified 03/23/21 12:29) Shortness of breath adhesive tape Adverse Reaction (Verified 03/23/21 12:29) rash azithromycin [From Zithromax Z-Robert] Adverse Reaction (Verified 03/23/21 12:29) Other levofloxacin [From Levaquin] Adverse Reaction (Verified 03/23/21 12:29) Other warfarin [From Coumadin] Adverse Reaction (Verified 03/23/21 12:29) bleeding under the skin Medications budesonide-formoterol 2 puff INHALATION DAILY 05/20/18 [History Confirmed 03/23/21] cholecalciferol (vitamin D3) 1,000 unit PO BID 05/20/18 [History Confirmed 03/23/21] ferrous gluconate 325 mg PO BIDCM 05/20/18 [History Confirmed 03/23/21] insulin aspart U-100 12 units SC BREAKFAST 05/20/18 [History Confirmed 03/23/21] insulin aspart U-100 12 units SC DINNER 05/20/18 [History Confirmed 03/23/21] levothyroxine 100 mcg PO DAILY 05/20/18 [History Confirmed 03/23/21] levothyroxine 200 mcg PO JARVIS 05/20/18 [History Confirmed 03/23/21] multivitamin 1 each PO DAILY 05/20/18 [History Confirmed 03/23/21] omega-3 fatty acids-fish oil 1 each PO DAILY 05/20/18 [History Confirmed 03/23/21] tiotropium bromide 18 mcg IH BID 05/20/18 [History Confirmed 03/23/21] apixaban 2.5 mg tablet 2.5 mg PO BID 06/29/20 [History Confirmed 03/23/21] metformin 500 mg tablet,extended release 24 hr 1,000 mg PO DINNER tablet 06/29/20 [History Confirmed 03/23/21] atorvastatin 10 mg tablet 10 mg PO QHS #90 tablet 07/12/20 [Rx Confirmed 03/23/21] Handicap Parking Placard #1 ea 08/25/20 [Rx Confirmed 03/23/21] albuterol sulfate 90 mcg/actuation aerosol inhaler 2 puff INHALATION Q4H PRN #18 gm 11/22/20 [Rx Confirmed 03/23/21] guaifenesin 600 mg PO BID 11/24/20 [History Confirmed 03/23/21] insulin glargine 12 unit SQ QHS 11/24/20 [History Confirmed 03/23/21] lactobacillus comb no.10 1 each PO BID 11/24/20 [History Confirmed 03/23/21] magnesium oxide 400 mg PO BID 11/24/20 [History Confirmed 03/23/21] carvedilol 25 mg tablet 25 mg PO BID #180 tablet 12/01/20 [Rx Confirmed 03/23/21] ascorbic acid (vitamin C) 1,000 mg tablet 1,000 mg PO BID tab 12/29/20 [History Confirmed 03/23/21] fluticasone propionate 50 mcg/actuation nasal spray,suspension 2 spray INTRANASAL DAILY 12/29/20 [History Confirmed 03/23/21] albuterol sulfate 2.5 mg CONTINUOUS NEBULIZATION QHS 01/30/21 [History Confirmed 03/23/21] amlodipine 2.5 mg PO DAILY 01/30/21 [History Confirmed 03/23/21] furosemide 40 mg tablet 40 mg PO DAILY tab 03/07/21 [History Confirmed 03/23/21] PFS Medical History Anemia Atherosclerotic heart disease of [place] coronary artery without angina pectoris Back pain Bacterial endocarditis Bilateral carotid bruits Cardiac arrest with ventricular fibrillation (06/2015) Carotid stenosis, left Chronic kidney disease (CKD) Chronic systolic (congestive) heart failure Dark stools Elevated LFTs Essential (primary) hypertension Fatigue History of acute bacterial endocarditis HLD (hyperlipidemia) Hypokalemia Hypothyroidism Infection and inflammatory reaction due to other cardiac and vascular devices, implants and grafts, initial encounter Infectious endocarditis Iron deficiency Ischemic cardiomyopathy Left bundle branch block Malaise Malignant pericardial effusion Night sweats Nonrheumatic mitral (valve) prolapse Paroxysmal atrial fibrillation Postoperative atrial fibrillation Primary idiopathic hypertrophic cardiomyopathy Thalamic mass Type II diabetes mellitus Surgical History Abnormal fractional flow reserve (FFR) on cardiac catheterization (02/2017) H/O coronary artery bypass surgery (04/27/17) History of cardioversion (04/2017) History of implantable cardiac defibrillator (ICD) (01/31/16) History of left heart catheterization Hx of bilateral cataract extraction Hx of cholecystectomy Hx of prostatectomy ICD (implantable cardioverter-defibrillator) infection Family History Father , age 47 from peritonitis Peritonitis Mother , age 93 CVA (cerebral vascular accident) several TIA's Social History Smoking Status: Former smoker alcohol intake: never substance use type: does not use caffeine: No what type of physical activity do you participate in: walking frequency: 5-6 times per week duration: 15-30 minutes/day seatbelt use: always do you feel safe at home: Yes HPI HPI HPI: RACHNA MAYES, is a 80 M who presents to the office today for ongoing discussion regarding high-grade stenosis of his left internal carotid artery. A CTA of his carotids were performed February 11 and as noted below. This confirms the finding of the carotid duplex imaging with a severe obstructive plaque at the origin of the left internal carotid artery near complete occlusion. On March 16, 2021 the patient had a cardiac stress test. He had been seen in consultation by cardiology on March 07, 2021. The stress test demonstrates a normal pharmacologic stress test with a preserved ejection fraction of 51%. It is pertinent that the patient's had a previous history of coronary bypass surgery and has a history of ischemic cardiomyopathy and an implantable cardiac defibrillator. He has chronic systolic congestive heart failure and paroxysmal atrial fibrillation. His chronic kidney disease and hypertension. He is on multiple medications including chronic anticoagulation with apixaban. He is an insulin requiring diabetic and is hypothyroid on replacement. February 11, 2021 STUDY: CTA NECK WITH CONTRAST REASON FOR EXAM: Male, 80 years old. Carotid stenosis RADIATION DOSAGE (If Supplied By Facility): CTDIvol = ( 24.90 ) mGy, DLP = ( 759.36 ) mGycm TECHNIQUE: CT angiography with multi-detector data acquisition was performed from the aortic arch to the skull base following intravenous administration of IV 100mL [id number]-370. MIP images were reconstructed from the axial data set. Post-processing of the angiographic images was performed, with multiplanar reformation and 3D reconstruction. Individualized dose optimization techniques were used for this CT. COMPARISON: None. FINDINGS: Prior CABG. AORTIC ARCH: There is atherosclerotic calcific plaque formation of the aortic arch and great vessels arising from the aortic arch, without a hemodynamically significant stenosis. There is a normal origin of the brachiocephalic, left common carotid, and left subclavian arteries. Nonstenotic calcific plaque at the origin of the left subclavian artery. RIGHT CAROTID ARTERIES: Normal right common carotid artery (CCA). Normal right common carotid bulb. Normal origin of the right internal carotid (ICA) artery without a hemodynamically significant stenosis. Normal visualized cervical portion of the right internal carotid artery. Normal origin of the right external carotid artery (ECA). LEFT CAROTID ARTERIES: Normal left common carotid artery (CCA). Normal left common carotid bulb. There is severe atherosclerotic plaque formation of the origin of the left internal carotid artery with a near complete occlusion. Normal visualized cervical portion of the left internal carotid artery. Normal origin of the left external carotid artery (ECA). VERTEBRAL ARTERIES: There is enhancement within the bilateral vertebral arteries with a small left vertebral artery, and a dominant right vertebral artery. CT/CTA Neck W/WO Contrast IMPRESSION: High-grade stenosis at the origin of the left internal carotid artery due to dense calcified atherosclerotic plaque formation. Electronically Signed: Angelito Hylton MD at 14:33 EDT , Service support , My previous notes are as follows. Intake Visit Reasons: Carotid stenosis Chief Complaint: Carotid Stenosis Student Services Director Required: No Accompanied by: Is patient in pain?: No Allergies LAURA Inhibitors Adverse Reaction (Intermediate, Verified 02/07/21 14:48) cough enalapril Adverse Reaction (Intermediate, Verified 02/07/21 14:48) Shortness of breath adhesive tape Adverse Reaction (Verified 02/07/21 14:48) rash azithromycin [From Zithromax Z-Robert] Adverse Reaction (Verified 02/07/21 14:48) Other levofloxacin [From Levaquin] Adverse Reaction (Verified 02/07/21 14:48) Other warfarin [From Coumadin] Adverse Reaction (Verified 02/07/21 14:48) bleeding under the skin Medications budesonide-formoterol 2 puff INHALATION DAILY 05/20/18 [History Confirmed 02/07/21] cholecalciferol (vitamin D3) 1,000 unit PO BID 05/20/18 [History Confirmed 02/07/21] ferrous gluconate 325 mg PO BIDCM 05/20/18 [History Confirmed 02/07/21] insulin aspart U-100 12 units SC BREAKFAST 05/20/18 [History Confirmed 02/07/21] insulin aspart U-100 12 units SC DINNER 05/20/18 [History Confirmed 02/07/21] levothyroxine 100 mcg PO DAILY 05/20/18 [History Confirmed 02/07/21] levothyroxine 200 mcg PO JARVIS 05/20/18 [History Confirmed 02/07/21] multivitamin 1 each PO DAILY 05/20/18 [History Confirmed 02/07/21] omega-3 fatty acids-fish oil 1 each PO DAILY 05/20/18 [History Confirmed 02/07/21] tiotropium bromide 18 mcg IH BID 05/20/18 [History Confirmed 02/07/21] apixaban 2.5 mg tablet 2.5 mg PO BID 06/29/20 [History Confirmed 02/07/21] metformin 500 mg tablet,extended release 24 hr 1,000 mg PO DINNER tablet 06/29/20 [History Confirmed 02/07/21] atorvastatin 10 mg tablet 10 mg PO QHS #90 tablet 07/12/20 [Rx Confirmed 02/07/21] Handicap Parking Placard #1 ea 08/25/20 [Rx Confirmed 02/07/21] albuterol sulfate 90 mcg/actuation aerosol inhaler 2 puff INHALATION Q4H PRN #18 gm 11/22/20 [Rx Confirmed 02/07/21] guaifenesin 600 mg PO BID 11/24/20 [History Confirmed 02/07/21] insulin glargine 12 unit SQ QHS 11/24/20 [History Confirmed 02/07/21] lactobacillus comb no.10 1 each PO BID 11/24/20 [History Confirmed 02/07/21] magnesium oxide 400 mg PO BID 11/24/20 [History Confirmed 02/07/21] carvedilol 25 mg tablet 25 mg PO BID #180 tablet 12/01/20 [Rx Confirmed 02/07/21] ascorbic acid (vitamin C) 1,000 mg tablet 1,000 mg PO BID tab 12/29/20 [History Confirmed 02/07/21] fluticasone propionate 50 mcg/actuation nasal spray,suspension 2 spray INTRANASAL DAILY 12/29/20 [History Confirmed 02/07/21] lyigjy-zhdyrqed-fxldznf 10,000-32,000-42,000 unit capsule,delayed rel 2 cap PO .COMPLEX 12/29/20 [History Confirmed 02/07/21] albuterol sulfate 2.5 mg CONTINUOUS NEBULIZATION QHS 01/30/21 [History Confirmed 02/07/21] amlodipine 2.5 mg PO DAILY 01/30/21 [History Confirmed 02/07/21] furosemide 40 mg tablet 40 mg PO .COMPLEX #1 tab 01/31/21 [Rx Confirmed 02/07/21] [facility] Medical History (Updated 02/07/21 @ 16:[address] Khai Antony MD) Anemia Atherosclerotic heart disease of [place] coronary artery without angina pectoris Back pain Bacterial endocarditis Bilateral carotid bruits Cardiac arrest with ventricular fibrillation (06/2015) Carotid stenosis, left Chronic kidney disease (CKD) Chronic systolic (congestive) heart failure Dark stools Elevated LFTs Essential (primary) hypertension Fatigue History of acute bacterial endocarditis HLD (hyperlipidemia) Hypokalemia Hypothyroidism Infection and inflammatory reaction due to other cardiac and vascular devices, implants and grafts, initial encounter Infectious endocarditis Iron deficiency Ischemic cardiomyopathy Left bundle branch block Malaise Malignant pericardial effusion Night sweats Nonrheumatic mitral (valve) prolapse Paroxysmal atrial fibrillation Postoperative atrial fibrillation Primary idiopathic hypertrophic cardiomyopathy Thalamic mass Type II diabetes mellitus Surgical History (Updated 02/07/21 @ 14:56 by Barb Galarza) Abnormal fractional flow reserve (FFR) on cardiac catheterization (02/2017) H/O coronary artery bypass surgery (04/27/17) History of cardioversion (04/2017) History of implantable cardiac defibrillator (ICD) (01/31/16) History of left heart catheterization Hx of bilateral cataract extraction Hx of cholecystectomy Hx of prostatectomy ICD (implantable cardioverter-defibrillator) infection Family History Father , age 47 from peritonitis Peritonitis Mother , age 93 CVA (cerebral vascular accident) several TIA's Social History Smoking Status: Former smoker alcohol intake: never substance use type: does not use caffeine: No what type of physical activity do you participate in: walking frequency: 5-6 times per week duration: 15-30 minutes/day seatbelt use: always do you feel safe at home: Yes HPI HPI HPI: RACHNA MAYES, is a 80 M who presents to the office today for surgical consultation regarding dizziness and extracranial carotid artery occlusive disease. The patient is referred by Dr. Corin Hernandez and a written copy of my surgical consult and recommendations were returned to her. Patient claims that over the past several months he has had problem with dizziness. He is rather nonspecific. Initially he states that he can just be sitting still and become dizzy or he can be standing and become dizzy. He did initially denied any orthostatic problems. He denies any facial droop. He denies any focal motor or sensory loss particularly regarding the right upper or lower extremity. Apparently there is increasing concern about general feeling of unwellness and fatigue. He was just recently seen in the emergency room at the [facility] January 30, 2021 because of dyspnea and dizziness. He was found to have an elevated BNP. No treatment change was initiated there however ASA [place] recommended 3 days of increased diuretic therapy. Now upon strict questioning the patient it appears that prior to that episode he did eat some sauerkraut. He had a myocardial infarction in 2015. He had coronary bypass grafting x2 in 2017. Apparently he had sepsis related to a pacemaker. He currently apparently has a pacer defibrillator located in the left lateral chest wall area. Echocardiogram as of December 08, 2020 suggested normal left ventricular size. Ejection fraction 50%. Left atrium is moderately enlarged. Pulmonary artery systolic pressure is 43 mmHg. Mild pulmonary hypertension. As noted below on January 17 he had carotid duplex imaging. No significant right carotid disease. Peak systolic velocity within the left internal carotid is 282 cm/s peak stock flow. The left ICA to CCA ratio was 4.1. Both of these are abnormal. Among his other medications he is maintained on apixaban and atorvastatin and carvedilol as well as insulin. He is not had any neurologic or ENT evaluation as of yet January 30, 2021 white blood cell count was 7.3 with a hemoglobin 11.3 hematocrit 35.3 platelet count 139,000. At that time the patient's BUN is 32 with a creatinine of 1.43 and an estimated creatinine clearance of 50 mL/min consistent with stage IIIa chronic kidney disease. Glucose was elevated at that time of 184. B natruretic peptide at that time was elevated to 304. Reason For Study: Bilateral carotid bruits Rt. Velocities/BP Lt. Velocities/BP Prox CCA 67.7/10.3 cm/sec. Prox CCA 65.0/14.6 cm/sec. Mid CCA 70.3/10.3 cm/sec. Mid CCA 65.0/15.8 cm/sec. Dist CCA 59.8/9.0 cm/sec. Dist CCA 68.6/14.6 cm/sec. Prox ICA 85.9/16.8 cm/sec. Prox ICA 282.3/60.7 cm/sec. Mid ICA 89.8/22.0 cm/sec. Mid ICA 150.0/38.6 cm/sec. Dist ICA 99.7/30.3 cm/sec. Dist ICA 118.9/41.2 cm/sec. Rt. ICA/CCA = 99.7/70.3=1.4. Lt. ICA/CCA = 282.3/68.6=4.1. Prox ECA 83.3/0.0 cm/sec. Prox ECA 123.5/6.6 cm/sec. Rt. Vert. 93.7/20.6 cm/sec. Lt. Vert. 57.6/15.8 cm/sec. Right Extracranial There is homogeneous, irregular atherosclerotic plaque noted in the right common carotid artery. There is heterogeneous, irregular atherosclerotic plaque noted in the right internal carotid artery. There is intimal thickening but no significant atherosclerotic plaque noted in the right external carotid artery. Antegrade flow is noted in the right vertebral artery. Left Extracranial There is heterogeneous, irregular atherosclerotic plaque noted in the left common carotid artery. There is heterogeneous, irregular atherosclerotic plaque noted in the left internal carotid artery. The atherosclerotic plaque causes acoustic shadowing. There is homogeneous, smooth atherosclerotic plaque noted in the left external carotid artery. Antegrade flow is noted in the left vertebral artery. There is heterogeneous, irregular atherosclerotic plaque noted in the left bulb. Acoustic shadowing. VL/Carotid Duplex Ultrasound Interpretation Summary Irregular calcific plaque within the right internal carotid artery with less than 50% stenosis Less than 50% stenosis right external carotid artery Irregular calcific plaque with shadowing at the proximal left internal carotid artery with greater than 70% stenosis Less than 50% stenosis left external carotid artery Patent and antegrade vertebrals bilaterally Findings suggest progression of stenosis of the left internal carotid artery from the previous examination of April 16, 2017 Ordering Physician: Bhavna Chiang Referring Physician: Corin Hernandez Performed By: Toña Green, ALEXX, RVT General General: Yes fatigue; No weight change, appetite, colon cancer, breast cancer or weakness HEENT HEENT: Yes eye surgery; No difficulty swallowing, eye injury, swollen glands or hoarseness Endo Endocrine: Yes thyroid disease and diabetes mellitus; No thyroid cancer, Hair loss, heat intolerance or cold intolerance Skin Skin: No rash or changing moles Musc Musculoskeletal: Yes arthritis; No back problems, rheumatoid arthritis, gout or joint pain Cardio Cardiovascular: Yes murmur, heart disease, atrial fibrillation, high blood pressure and heart attack; No pacemaker, heart stent, palpitations, shortness of breat with exertion or chest pain Psych Psychiatric: No depression, anxiety or hearing voices Resp Respiratory: No shortness of breath, Yes sleep apnea, No cough, Yes COPD, No asthma, No emphysema and No wheezing Gastro Gastrointestinal: No abdominal pain, No nausea or vomiting, No diarrhea, No constipation, No blood in stool, No acid reflux, No hemorrhoids, No ulcers, No gallbladder problem and No black,tarry stools Rd Hematologic: Yes blood thinners, No blood disorders, No bleeding, Yes anemia and No blood clots Neuro Neurologic: No weakness Exam Const General: cooperative, comfortable and no acute distress Nutritional Appearance: overweight Orientation: alert and awake Other: Patient appears every bit of his age of 80 [facility] Head: normal to inspection Eyes General: appearance normal, both eyes and all related structures Neck Neck: normal visual inspection and no lymphadenopathy Carotids: normal carotid upstroke and no bruits Lymphatic: no lymphadenopathy noted Chest Other: Increased anterior posterior diameter, clear with reasonable effort Cardio Rate: regular rate Rhythm: regular rhythm GI Other: Overweight, no hepatosplenomegaly, no fluid wave, normal bowel sounds, no bruit, not expansile or pulsatile Musc Cervical Spine: normal cervical lordosis Skin General: elasticity normal Neuro Other: Upon standing and moving to the exam table he had slight favoring and veering toward his left side. He did not fall. He was able to get up on the exam table under his own power. His speech and cognition remained stable Extrem Other: Deformity left hand. Calves are supple nontender Psych Affect: normal affect Assessment and Plan Assessment and Plan (1) Carotid stenosis, left: Status: Acute Orders: Orders: CTA Neck W/WO Contrast Today I65.22 Plan Details Other Orders: Orders: Basic Metabolic Profile (BMP) Today N18.9 Additional Comments: Complicated 78-year-old gentleman. He would appear to have greater than 70% stenosis of his left internal carotid. It is less clear that this is definitively the etiology to his dizziness. He has significant medical comorbidities. His most recent creatinine however was less than two. This would allow us to pursue a CTA of his carotids. I believe with his symptomatology this would be appropriate. I have discussed with the patient and his and on the phone his daughter technique benefit risk complications alternatives. If we are able to obtain a CTA of his carotids this may further facilitate potential diagnosis and etiology to his dizziness. I have suggested to him that we may recommend obtaining neurology consultation. I have discussed with him that the procedure that I perform is a carotid endarterectomy with patch angioplasty. I personally only perform this with general anesthesia. He would need to meet risk criteria to allow us to proceed with that. I additionally discussed the technique of carotid artery stenting. He would need to have tertiary referral to proceed with that. He has had an opportunity to ask and have questions answered. We will pursue the carotid CTA. If that is not feasible or if there is still question then I will recommend neurology consultation. The patient is very much aware that he is clearly at a higher risk intervention category. I appreciate the opportunity of assisting with the surgical care. Copy: Dr Corin Hernandez Coding Level of Care Code 58549 Diagnoses Carotid stenosis, left I65.22 ROS General General: Yes fatigue; No weight change, appetite, colon cancer, breast cancer or weakness HEENT HEENT: Yes eye surgery; No difficulty swallowing, eye injury, swollen glands or hoarseness Endo Endocrine: Yes thyroid disease and diabetes mellitus; No thyroid cancer, Hair loss, heat intolerance or cold intolerance Skin Skin: No rash or changing moles Musc Musculoskeletal: Yes arthritis; No back problems, rheumatoid arthritis, gout or joint pain Cardio Cardiovascular: Yes murmur, heart disease, atrial fibrillation, high blood pressure and heart attack; No pacemaker, heart stent, palpitations, shortness of breat with exertion or chest pain Psych Psychiatric: No depression, anxiety or hearing voices Resp Respiratory: No shortness of breath, Yes sleep apnea, No cough, Yes COPD, No asthma, No emphysema and No wheezing Gastro Gastrointestinal: No abdominal pain, No nausea or vomiting, No diarrhea, No constipation, No blood in stool, No acid reflux, No hemorrhoids, No ulcers, No gallbladder problem and No black,tarry stools Rd Hematologic: Yes blood thinners, No blood disorders, No bleeding, Yes anemia and No blood clots Neuro Neurologic: No weakness Exam Const General: cooperative, healthy appearing, comfortable and no acute distress Nutritional Appearance: overweight HENMT Head: normal to inspection Resp Effort & Inspection: normal respiratory effort Auscultation: clear to auscultation bilaterally Cardio Rate: regular rate Rhythm: regular rhythm GI Inspection: normal to inspection Palpation: soft Neuro General: patient alert, patient awake and patient oriented x3 Extrem Other: Left upper extremity prosthetic hand device Psych Thought Process: normal COVID (Procedure Consent) Procedure Criteria Procedure Criteria: Yes Elective The surgeon/proceduralist and patient have discussed in detail the risk of exposure to and/or potential harm posed by the COVID-19 virus with having a surgery/procedure at this time versus the risk of delaying the surgery/procedure. It is not possible to know either the risk of delaying the surgery or procedure or chance of getting an infection with perfect accuracy, but a joint decision was made between the patient and the surgeon/proceduralist to proceed at this time with the scheduled surgery/procedure as indicated on the consent form. Assessment and Plan Assessment and Plan (1) Carotid stenosis, left: Status: Acute Plan - Dr. Khai Antony MD: I had an extensive discussion with the patient and his today with their daughter present regarding the technique, benefit, risk, alternatives of a left carotid endarterectomy with bovine patch angioplasty. I discussed the potential for intraoperative shunting. We discussed potential risk of local nerve injury. We discussed potential risk of stroke myocardial infarction DVT pneumonia. This is not inclusive of risk factors. We discussed nonsurgical intervention. We discussed referral to a tertiary center for consultation, carotid enterectomy, carotid stenting. He notes that he previously had myocardial infarction. 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 Now all he has is a defibrillator. He had coronary bypass surgery. Unfortunately he stay was complicated by very prolonged postoperative course with what sounds like pleural effusions etc. He does have concerned about potential outcome. He is enjoying a high quality of life. In addition the patient has a disability left hand with a prosthetic device. He is aware of the left carotid controls the right upper and lower extremity. With all of this setting with all of this in mind he elects to proceed locally with a left carotid endarterectomy with patch angioplasty. I anticipate arterial line monitoring right upper extremity. He has had an opportunity to ask and have questions answered. He is aware there are no guarantees of success. He is aware of the risks benefits and alternatives to operative and nonoperative therapy. He is aware that he will need to continue to maximize his medical care. I will initiate him on aspirin 81 mg orally daily now. He will hold his apixaban 48 hours preoperatively. We will schedule and proceed at his discretion. 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 I appreciate the opportunity of assisting with the surgical care. Copy: Dr Corin Hernandez and Dr. Hollis Lambert Khai Antony M.D., F.A.C.S. I have re-examined the patient. There are no clinical changes since date of exam. Khai Antony M.D., F.A.C.S.
--- NOTE | 2021-04-06 06:46 | PCM.OPRPT ---
Problems Associated Problem List Diagnoses (1) Carotid stenosis, left: Report of Operation Date of Procedure: 04/06/21 Pre-Operative Diagnosis: Symptomatic critical stenosis left extracranial internal carotid artery Post-Operative Diagnosis: Same Surgery/Procedure Performed:: Right radial arterial line placement Left carotid endarterectomy with bovine patch angioplasty Michel: Reference [id number] [id number], lot number [id number] #[id number] Expiry date 11/17/2025 Description of Surgical Findings:: Timeout and informed consent was obtained. At the bedside West test performed demonstrating adequate right ulnar flow. The right wrist was gently extended prepped with Betadine ultrasound was used to identify the right radial artery 1% lidocaine was instilled as a local anesthetic. An initial attempt with an arrow kit failed I was not able to get wire advancement. I held pressure to I had hemostasis. Then I tried a 20-gauge Angiocath using Seldinger wire advancement was able to get the arterial line in position. It was connected to pressure tubing good waveform was obtained. It was secured with interrupted 3-0 silk and OpSite dressing. Bladimir wrap was applied. The hand was viable at the completion no apparent complication. He was subsequently taken to the operating for definitive surgery. Timeout informed consent again obtained. He was taken to the operating place upon the table underwent general endotracheal intubation anesthesia. Ancef 2 g were given intravenously. The left neck was sterilely prepped and draped. An oblique incision was made along the anterior border the sternocleidomastoid sharp dissection carried down through the subcutaneous tissues. Common carotid internal carotid external carotid all dissected free. A Leavitt tie of Dacron tape was placed around the common carotid and a Dacron tape Terumo tourniquet at the internal carotid and a vessel loop around the external carotid. The superior thyroid is secured with a Leavitt tie of 3-0 Vicryl. It is of note that the patient had an anteriorly placed vagus nerve what had to be carefully dissected free and mobilized. The vessel was very calcified and immobile throughout. Significant plaque noted throughout the entire common carotid carotid bulb area and proximal internal carotid. The patient received 10,000 units of heparin. After adequate circulating time peripheral vascular clamps were placed on the internal common and external carotid. 11 blade was used to make an arteriotomy. Using Leavitt scissors dissecting through the heavily calcified plaque was quite challenging. The vessel was opened irrigated. Due to the difficulty with exposure and the stiffness of the vessel I paid attention of the pulse oximetry and the backflow. Elected not to attempt placement of a shunt as I felt securing the shunt would be difficult. The patient's [place] vessel also was relatively large and would be difficult to get a shunt to stay without leakage. An endarterectomy was performed at the layer of the external elastic lamina. The plaque was very thick all the way proximally. It was transected and then further debris was carefully removed. As the plaque was tapered toward the internal carotid unfortunately there was remaining very thick intima. It was not possible to get a very clean and smooth taper. An eversion endarterectomy was performed the external carotid. Further debris was carefully removed. After trimming the Internet the internal carotid I then placed 3 tacking sutures of 7-0 Prolene. Irrigated the vessel checked approximately for any further debris. A bovine patch 8 x 0.8 cm was shaped to form and a patch angioplasty created with running 7-0 Prolene. Prior to completion the vessel was irrigated it was wonderful backflow from the internal carotid good antegrade flow from the common carotid. Patch angioplasty completed initial flow was instituted from the external carotid common carotid and finally the internal carotid. A single [id number] of 6-0 Prolene repair suture was required proximally in the common carotid. A CTs had been monitored and did not require additional heparinization. At the completion of the procedure the patient received 20 mg of protamine as reversal agent. A piece of Surgicel was placed in the wound to further assist. Hemostasis was intact. Good flow noted. The platysma was approximated running 3-0 Vicryl. Skin edges approximated running septic or 5-0 Vicryl. Steri-Strips Telfa tape dressings applied. The periincisional area anesthetized with 20 cc of 0.5% Marcaine. Sponge and instrument and needle counts reported to certainly be correct. Specimen plaque. Drains none. Blood loss 250 cc. He was allowed to awaken the table saw. Grossly neurologically intact and was taken to the recovery room in satisfactory condition without apparent complication. Khai Antony M.D., F.A.C.S. Surgeon: Khai Antony Type of Anesthesia: General and Local Anesthesiologist: Lew Maddox
--- NOTE | 2021-04-06 06:50 | PCM.DC ---
Discharge Instructions Diet Discharge Diet: Light diet - advance as tolerated Activity Discharge Activity: May Not Drive (For 5 to 7 days), May Not Shower (For 3 days) and May Take a Tub Bath Weight Bearing Status: Full weight bearing Dressing / Incision Call your doctor if your incision/area has: Continuous Slow Oozing, Sudden Increased Bleeding and Increased Pain/ Swelling Call your doctor if you observe: Fever of 101 or Higher Suture Line Care: Avoid Pulling/Pushing Change Dressing in: 1 day (You may apply a dry gauze cover dressing to your incision as needed to protect from clothing irritation. Change as needed) Remove Dressing in: 1 week (Leave your Steri-Strips in place for 1 week then you may remove) Follow Up Care Please Follow Up With: Khai Antony MD When: Approximately 10 days. Please call [phone] to arrange for an appointment Test Results: You may shower on April 09. You may keep a dry Telfa dressing on your left neck incision changing daily as needed to protect from clothing oxygen tubing or your CPAP mask. Resume your 81 mg aspirin today and continue for 1 week. Resume your apixaban on April 08, [address] for at least 1 week. No lifting more than 10 pounds. No silver sneakers until cleared after office visit. Monitor your blood pressure twice daily. Take note of any additional episodes of dizziness Discharge Plan Admission Admit Date/Time: 04/06/21 05:26 Primary Reason for Your Visit: Symptomatic critical stenosis left extracranial internal carotid artery Attending Provider: Allen Mckenzie Primary Care Provider: Corin Hernandez Consulting Providers: Heidi Razo ; Kalpana Elam ; John Stallworth ; Ana Luisa Hemphill ; Allen Mckenzie ; Anastacio Salcido ; Jose Carlos Reyes ; Stephen Mcdonald ; Alejandro Mcdonald ; Douglas Adams ; Niraj Yin ; Susana Soriano ; Sergei Peralta ; Mely Chacon ; Ken Brock ; Jacobo Lieberman ; Keegan Alanis ; Kareem Garnica ; Ana Hilliard NP ; Analilia Pascal ; Jessica Ramirez NP ; Sergei Ruiz NP ; Bhavna Chiang ; [place] Instructions Additional Instructions / Restrictions: Resume apixaban on Thursday April 08, 2021. Resume other medication today. Resume 81 mg aspirin today and continue for 1 week then discontinue Discharge Orders/Prescriptions Prescriptions: Continued Eliquis 2.5 mg tablet 2.5 mg PO BID RF: 0 furosemide 40 mg tablet 40 mg PO DAILY RF: 0 fluticasone propionate [Flonase Allergy Relief] 50 mcg/actuation spray,suspension 2 spray intranasal DAILY RF: 0 multivitamin 1 EACH tablet 1 each PO DAILY RF: 0 levothyroxine 100 MCG tablet 100 mcg PO MOTUWETHFRSA RF: 0 levothyroxine 100 MCG tablet 200 mcg PO JARVIS RF: 0 cholecalciferol (vitamin D3) 1,000 UNIT capsule 1,000 unit PO BID RF: 0 insulin aspart U-100 100 UNITS/ML insulin pen 12 units SC BREAKFAST RF: 0 insulin aspart U-100 100 UNITS/ML insulin pen 12 units SC DINNER RF: 0 tiotropium bromide 18 MCG capsule, w/inhalation device 18 mcg IH BID RF: 0 omega-3 fatty acids-fish oil 1 EACH capsule 1 each PO DAILY RF: 0 budesonide-formoterol 1 INHALER inhaler 2 puff inhalation DAILY RF: 0 ferrous gluconate 325 MG tablet 325 mg PO BIDCM RF: 0 ascorbic acid (vitamin C) 1,000 mg tablet 1,000 mg PO DAILY RF: 0 metformin 500 mg tablet extended release 24 hr 1,000 mg PO DINNER RF: 0 insulin glargine 100 UNIT/ML solution 12 unit SQ QHS RF: 0 magnesium oxide 400 MG capsule 400 mg PO BID RF: 0 lactobacillus comb no.10 1 EACH capsule 1 each PO BID RF: 0 albuterol sulfate 2.5 mg /3 mL (0.083 %) solution for nebulization 2.5 mg continuous nebulization QHS RF: 0 amlodipine 5 mg tablet 2.5 mg PO DAILY RF: 0 carvedilol 25 mg tablet 25 mg PO BID RF: 0 atorvastatin 10 mg tablet 10 mg PO QHS RF: 0 (DME) Handicap Parking Placard See Rx Instructions .Route .MEDSUPPLY Qty: 1 RF: 0 albuterol sulfate 90 mcg/actuation HFA aerosol inhaler 2 puff INHALATION Q4H PRN (Reason: fill as courtesy until 's office open) Qty: 18 RF: 0 Referrals / Follow Up: Corin Hernandez MD [Primary Care Provider] - Disposition Disposition (needs filled in before D/C Order can be placed): Home, Self Care
[2021-04-06 06:55] LABS: Bedside Glucose 177 mg/dL (70-110)
[2021-04-06] MEDS: Vancomycin IV 1,000 MG/200 ML BAG 200 MG IV (07:12)
--- NOTE | 2021-04-06 07:30 | PLAQ_PTH ---
PATIENT: RACHNA MAYES LOC: [facility] U#:[id number] AGE/SX: 80/M ROOM: [facility] RE04/06/[address]: Dr. Rachna Mckenzie MD : 1940 BED: 1 DIS: 04/07/2021 SPEC #: [id number] RECD: 04/06/21 11:41 STATUS: SIMON REQ #: [id number] ASHLEIGH: 04/06/21 07:[address]: Khai Antony DEPT: SURGICAL PATHOLOGY RECD BY: Denzel Camarillo ENTERED: 04/06/21 13:33 SP TYPE: PLAQUE OTHR DR: MD Dr. Heidi Youngblood MD Dr. Autumn L White, MD Dr. Christopher Ranney, MD Dr. Mary Catherine Sementi, MD Anastacio Cobos Dr., MD Dr. Eric Jopperi, MD Dr. Alejandro Liu Dr., MD Dr. Joseph Agyepong, MD Dr. James Mooney, MD Dr. Kathryn Lee, DO Dr. Mely Bailey Dr., MD Dr. Nicholas F Kotsonis, MD Dr. Nhan Luu, MD Dr. Prakash Chand, MD Dr. Paul Nielsen, MD Barbara Tickton, FERRY OPERATOR-C Analilia Pascal, FERRY OPERATORJay Ramirez, COY-Jose Ruiz, FERRY OPERATOR-C Bhavna Chiang, ASA Lane Tissues: PLAQUE Procedures: Decalcification bone/plaque Surgery Specimen Level III HEADER OPERATION: Carotid endarterectomy with patch angioplasty PRE-OP DIAGNOSIS: Left carotid stenosis TISSUE SUBMITTED: Left carotid plaque MICROSCOPIC DIAGNOSIS Left carotid artery plaque, endarterectomy: Calcified atheromatous plaque consistent with severe stenosis. AM:steve 04/08/2021 GROSS DESCRIPTION Received in fixative is one container labeled with the patient's name and designated carotid plaque. The specimen consists of an encapsulated fragment of yellow-latham tissue measuring 3.2 x 2 x 1 cm. The specimen is sectioned and totally submitted in one cassette after decalcification. / AM:steve 04/06/21 TC:5 CPT: 56615, 46471
[2021-04-06] MEDS: Nitro/D5w 25MG/250ML Bottle 25 MG (09:15)
[2021-04-06] MEDS: Heparin Injection (Vial) 5,000 UNIT/ML VIAL 5000 UNIT (09:53)
[2021-04-06] MEDS: Sugammadex Sodium 200 MG/2 ML VIAL IV (09:54)
--- NOTE | 2021-04-06 10:45 | SUR.PHASEI ---
Addendum entered by Christina Myrick 04/06/21 11:39: THERE IS A 30 TO 40 POINT DISCREPANCY BETWEEN THE ARTERIAL LINE PRESSURE AND NIBP, DR CANALES AWARE THAT THIS RN TITRATING NITRO GTT BASED ON NIBP. INSTRUCTED TO KEEP SBP MAX 160, PREFERABLY 150 OR BELOW. Original Note: TITRATING NITRO GTT DOWN TO 150 MCG/MIN.
[2021-04-06 10:51] LABS: Bedside Glucose 141 mg/dL (70-110)
[2021-04-06 10:51] LABS: Bedside Glucose 160 mg/dL (70-110)
[2021-04-06 11:06] LABS: ACT Activated Clotting Time 109 sec (74-137)
[2021-04-06 11:11] LABS: ACT Activated Clotting Time 213 sec (74-137)
--- NOTE | 2021-04-06 11:27 | SUR.PHASEI ---
DECREASED NITRO GTT TO 125 MCG/MIN OR 75 ML/HR.
--- NOTE | 2021-04-06 11:57 | SUR.PHASEI ---
DECREASED NITRO GTT TO 100 MCG/MIN OR 60 ML/HR AT 1143
--- NOTE | 2021-04-06 12:03 | PCM.PN.HOSP ---
Subjective Subjective Patient is an 80-year-old gentleman with history of Symptomatic critical stenosis left extracranial internal carotid artery who underwent Left carotid endarterectomy with bovine patch angioplasty on 04/06/[address] Khai Antony. The hospitalist service was consulted to assist with management of patient medical comorbidities Objective Data Objective Data Vital Signs: Vital Signs Temp Pulse Resp BP Pulse Ox 97.0 F L 84 16 178/62 H 100 04/06/21 10:32 04/06/21 12:00 04/06/21 12:00 04/06/21 12:00 04/06/21 12:00 Oxygen Flow Rate (L/min) 4 Oxygen Delivery Method Simple Mask Weight: 96 kg Body Mass Index (BMI) 27.1 Intake & Output: Intake and Output for Last 24 Hours 04/04/21 04/05/21 04/06/21 23:59 23:59 23:59 Intake Total 200 / 200 Balance 200 / 200 Lab / Micro Data Labs: Laboratory Results - last 24 hr 04/06/21 05:56: POC Glucose 177 H 04/06/21 06:54: Activated Clotting Time 109 04/06/21 08:57: Activated Clotting Time 213 H 04/06/21 08:59: POC Glucose 160 H 04/06/21 10:46: POC Glucose 141 H Physical Exam Narrative GENERAL: cooperative HEENT: Atraumatic; EYES; Anicteric, Normal Conjunctiva NECK; surgical incision on the left side of the neck clean dry and intact RESPIRATORY: Diminished to auscultation CARDIOVASCULAR: Regular S1 S2, GI: soft, normoactive bowel sounds, : No Renal angle tenderness; EXTREMITIES: No edema, no clubbing, MUSCULOSKELETAL: no muscle waisting NEURO: Awake; no lateralizing signs. SKIN: No Rash PSYCH; Flat affect Assessment & Plan Assessment/Plan (1) Carotid stenosis, left: PLAN: Patient is an 80-year-old gentleman with history of Symptomatic critical stenosis left extracranial internal carotid artery who underwent Left carotid endarterectomy with bovine patch angioplasty on 04/06/[address] Khai Antony. The hospitalist service was consulted to assist with management of patient medical comorbidities 1. Status post Left carotid endarterectomy with bovine patch angioplasty - on 04/06/[address] Khai Antony on account of Symptomatic critical stenosis left extracranial internal carotid artery 2. History of pathological arrhythmias ?V. 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 Hypertension - Blood pressure controlled, home medications continued with dose adjustment as needed 4. Paroxysmal A. fib -Rate controlled. On systemic anticoagulation with apixaban, plan is to resume when okay with Dr. Antony with vascular surgery 5. Hypothyroidism - Patient is on levothyroxine home dose continued 6. Diabetes mellitus type II -patient's oral hypoglycemics held. Placed on long acting insulin, Accu-Cheks a.c. and at bedtime and covered with sliding scale insulin 8. Chronic kidney disease stage III ?Secondary to diabetic nephropathy plan is to monitor with daily BMPs 9. Anemia - Secondary to chronic disorder monitoring H&H and transfuse if patient becomes symptomatic or hemoglobin falls below 7 10. DVT prophylaxis ?Bilateral SCDs for now we deferred the decision to initiate chemoprophylaxis to general surgery Charges/Coding Visit Charges Inpatient E&M: 96542 Subs Hosp L3
--- NOTE | 2021-04-06 12:10 | SUR.PHASEI ---
DECREASED NITRO GTTS TO 75MCG/MIN OR 45ML/HR AT 1210.
--- NOTE | 2021-04-06 12:23 | SUR.PHASEI ---
DECREASED NITRO GTT TO 50 MCG/MIN OR 30 ML/HR. SEE VS.
[2021-04-06] MEDS: HYDROcodone Bitartrate/Apap 5/325 Tablet PO (12:26)
--- NOTE | 2021-04-06 12:56 | SUR.PHASEI ---
AT 1236, DECREASED NITRO GTT TO 25 MCG/MIN. AT 1256, TURNED NITRO GTT OFF. WILL CONTINUE TO MONITOR BP CLOSELY.
[2021-04-06] MEDS: Furosemide 20 MG/2 ML VIAL IV (13:45)
[2021-04-06] MEDS: Labetalol (Prefilled) 20 MG/4 ML 5 MG IV ×2 (13:50→15:47)
[2021-04-06] MEDS: 0.9% Saline Lock 10 ML Syringe IV ×3 (15:46→22:33)
[2021-04-06 16:06] LABS: Bedside Glucose 143 mg/dL (70-110)
[2021-04-06] MEDS: Carvedilol 25 MG Tablet PO (16:58)
[2021-04-06] MEDS: hydrALAZINE 20 MG/ML Vial 10 MG IV ×2 (17:30→22:33)
[2021-04-06] MEDS: Calcium Carbonate 500 MG Tablet PO (19:39)
[2021-04-06] MEDS: Budesonide Respules 0.5 MG/2 ML AMPUL.NEB. INHALATION (20:06)
[2021-04-06] MEDS: Ipratropium/Albuterol Sulfate 3 ML AMPUL.NEB INHALATION (20:06)
[2021-04-06] MEDS: Magnesium Chloride 64 MG Delay Rel.Tablet 128 MG PO (20:48)
[2021-04-06] MEDS: Atorvastatin Calcium 10 MG Tablet PO (20:49)
[2021-04-06 21:02] LABS: Bedside Glucose 150 mg/dL (70-110)
[2021-04-07] VITALS (14 sets, daily range): BP systolic 114–175; BP diastolic 56–78; PULSE 87–102; RESP 15–20; TEMP 36.7–37; O2SAT 90–97
[2021-04-07] MEDS: Acetaminophen 325 MG Tablet PO ×2 (00:13→11:11)
[2021-04-07] MEDS: hydrALAZINE 20 MG/ML Vial 10 MG IV (03:20)
[2021-04-07] MEDS: 0.9% Saline Lock 10 ML Syringe IV (03:20)
[2021-04-07] MEDS: Levothyroxine 100 MCG Tablet PO (05:27)
--- NOTE | 2021-04-07 05:35 | PCM.PN.SRG ---
Subjective Subjective Patient is alert comfortable no distress. He states that he has been up to the bathroom but has not ambulated in the good. He states that he had some coughing last night but got him repositioned and helped resolve that. He does note that he is on oxygen. He states that he did not utilize his CPAP last night because he was afraid the strap would interfere with his left neck incision. Objective Data Objective Data Vital Signs: Vital Signs Temp Pulse Resp BP Pulse Ox 98.1 F 87 16 129/59 H 96 04/07/21 05:00 04/07/21 05:00 04/07/21 05:00 04/07/21 05:00 04/07/21 05:00 Oxygen Flow Rate (L/min) 2 Oxygen Delivery Method Nasal Cannula Weight: 212 lb 4.882 oz Body Mass Index (BMI) 27.2 Intake & Output: Intake and Output for Last 24 Hours 04/05/21 04/06/21 04/07/21 23:59 23:59 23:59 Intake Total 2120 / 2420 300 / 300 Output Total 1285 / 1710 780 / 780 Balance 835 / 710 -480 / -480 Lab / Micro Data Labs: Laboratory Results - last 24 hr 04/06/21 05:56: POC Glucose 177 H 04/06/21 06:54: Activated Clotting Time 109 04/06/21 08:57: Activated Clotting Time 213 H 04/06/21 08:59: POC Glucose 160 H 04/06/21 10:46: POC Glucose 141 H 04/06/21 15:46: POC Glucose 143 H 04/06/21 20:47: POC Glucose 150 H Physical Exam Narrative Left neck is clean dry supple intact, Resp normal respiratory effort Extremity Extremity Narrative: Neurologic status is completely intact and consistent with preop Assessment & Plan Assessment/Plan (1) Carotid stenosis, left: PLAN: Plan discharge today after medical review. We will need to get the patient up and ambulating first. May require home oxygen but will defer to primary care. Instructions have been provided regarding his anticoagulation. Khai Antony M.D., F.A.C.S.
[2021-04-07] MEDS: Ipratropium/Albuterol Sulfate 3 ML AMPUL.NEB INHALATION (07:02)
[2021-04-07] MEDS: Budesonide Respules 0.5 MG/2 ML AMPUL.NEB. INHALATION (07:04)
[2021-04-07 07:32] LABS: Absolute Neutrophil Count 9.7 X10^3/uL (2.0-7.7); Basophil# 0.03 X10^3/uL; Basophil% 0.3 % (0-1); Eosinophil# 0.04 X10^3/uL; Eosinophils% 0.3 % (0-5); Hematocrit 39.7 % (40-54); Hemoglobin 12.6 g/dL (13.0-16.5); Lymphocyte % 9.3 % (19-41); Mean Corp Hgb Conc 31.7 g/dL (32-36); Mean Corpuscular Hgb 31.1 pg (27.0-32.0); Mean Platelet Vol. 9.4 fl (6.2-12.0); Monocyte# 0.98 X10^3/uL; Monocyte% 8.2 % (0-10); NRBC Flagged by Analyzer 0 % (0-5); Neutrophil # 9.69 X10^3/uL (2.7-7.7); Neutrophil % 81.6 % (47-70); Platelet Count 173 K/mm3 (150-450); RBC Distribution Width CV 14.1 % (11.6-14.6); RBC Distribution Width SD 50.6 fl (35.1-43.9); Red Blood Count 4.05 M/mm3 (4.6-6.2); White Blood Count 11.9 K/mm3 (4.4-11.0)
--- NOTE | 2021-04-07 07:48 | PCM.PN.HOSP ---
Subjective Subjective Patient seen blood pressure remained stable surgical incision remains clean dry and intact Objective Data Objective Data Vital Signs: Vital Signs Temp Pulse Resp BP Pulse Ox 98.3 F 89 16 154/72 H 95 04/07/21 06:00 04/07/21 06:00 04/07/21 06:00 04/07/21 06:00 04/07/21 06:00 Oxygen Flow Rate (L/min) 2 Oxygen Delivery Method Nasal Cannula Weight: 96.3 kg Body Mass Index (BMI) 27.2 Intake & Output: Intake and Output for Last 24 Hours 04/05/21 04/06/21 04/07/21 23:59 23:59 23:59 Intake Total 2120 / 2420 300 / 300 Output Total 1285 / 1710 780 / 780 Balance 835 / 710 -480 / -480 Lab / Micro Data Result Diagrams: 04/07/21 07:24 04/07/21 07:24 Labs: Laboratory Results - last 24 hr 04/06/21 06:54: Activated Clotting Time 109 04/06/21 08:57: Activated Clotting Time 213 H 04/06/21 08:59: POC Glucose 160 H 04/06/21 10:46: POC Glucose 141 H 04/06/21 15:46: POC Glucose 143 H 04/06/21 20:47: POC Glucose 150 H 04/07/21 07:24: WBC 11.9 H, RBC 4.05 L, Hgb 12.6 L, Hct 39.7 L, MCV 98.0 H, MCH 31.1, MCHC 31.7 L, RDW Std Deviation 50.6 H, RDW Coeff of [place] 14.1, Plt Count 173, MPV 9.4, Immature Gran % (Auto) 0.300, Neut % (Auto) 81.6 H, Lymph % (Auto) 9.3 L, [place] % (Auto) 8.2, Eos % (Auto) 0.3, Baso % (Auto) 0.3, Absolute Neuts (auto) 9.7 H, Absolute Lymphs (auto) 1.10, Nucleated RBC % 0 Physical Exam Narrative GENERAL: cooperative HEENT: Atraumatic; EYES; Anicteric, Normal Conjunctiva NECK; surgical incision on the left side of the neck clean dry and intact RESPIRATORY: Diminished to auscultation CARDIOVASCULAR: Regular S1 S2, GI: soft, normoactive bowel sounds, : No Renal angle tenderness; EXTREMITIES: No edema, no clubbing, MUSCULOSKELETAL: no muscle waisting NEURO: Awake; no lateralizing signs. SKIN: No Rash PSYCH; Flat affect Assessment & Plan Assessment/Plan (1) Carotid stenosis, left: PLAN: Patient is an 80-year-old gentleman with history of Symptomatic critical stenosis left extracranial internal carotid artery who underwent Left carotid endarterectomy with bovine patch angioplasty on 04/06/[address] Khai Antony. The hospitalist service was consulted to assist with management of patient medical comorbidities 1. Status post Left carotid endarterectomy with bovine patch angioplasty - on 04/06/[address] Khai Antony on account of Symptomatic critical stenosis left extracranial internal carotid artery -04/07/2021; Patient seen blood pressure remained stable surgical incision remains clean dry and intact 2. History of pathological arrhythmias ?V. 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 Hypertension - Blood pressure controlled, home medications continued with dose adjustment as needed 4. Paroxysmal A. fib -Rate controlled. On systemic anticoagulation with apixaban, plan is to resume when okay with Dr. Antony with vascular surgery 5. Hypothyroidism - Patient is on levothyroxine home dose continued 6. Diabetes mellitus type II -patient's oral hypoglycemics held. Placed on long acting insulin, Accu-Cheks a.c. and at bedtime and covered with sliding scale insulin 8. Chronic kidney disease stage III ?Secondary to diabetic nephropathy plan is to monitor with daily BMPs 9. Anemia - Secondary to chronic disorder monitoring H&H and transfuse if patient becomes symptomatic or hemoglobin falls below 7 10. DVT prophylaxis ?Bilateral SCDs for now we deferred the decision to initiate chemoprophylaxis to general surgery Charges/Coding Visit Charges Inpatient E&M: 18613 Subs Hosp L2
[2021-04-07 07:55] LABS: Anion Gap 6 (5-15); BUN 23 mg/dL (7-18); BUN/Creat Ratio 16.4 RATIO (10-20); Calcium,Total 8.7 mg/dL (8.5-10.1); Chloride 102 mmol/L (98-107); EST Glomerular Filtration Rate 52 mL/min (>60); Est Glom Filt Rate - Afr Amer 62 mL/min (>60); Glucose 153 mg/dL (74-106); Magnesium 2.1 mg/dL (1.6-2.6); Potassium 4.2 mmol/L (3.5-5.1); Sodium Level 137 mmol/L (136-145)
[2021-04-07] MEDS: Insulin Lispro 100 UNIT/ML INSULN.PEN SC (08:35)
[2021-04-07] MEDS: Insulin Lispro 100 UNIT/ML INSULN.PEN 12 UNIT SC (08:36)
[2021-04-07] MEDS: Furosemide 40 MG Tablet PO (08:38)
[2021-04-07] MEDS: Aspirin 81 MG TAB.CHEW PO (08:38)
[2021-04-07] MEDS: amLODIPine 2.5 MG Tablet PO (08:39)
[2021-04-07] MEDS: Magnesium Chloride 64 MG Delay Rel.Tablet 128 MG PO (08:39)
[2021-04-07] MEDS: Carvedilol 25 MG Tablet PO (08:39)
[2021-04-07] MEDS: Fluticasone 0.05% 1 SPRAY NASAL.SRY 2 SPRAY NASAL (08:42)
[2021-04-07 08:46] LABS: Bedside Glucose 189 mg/dL (70-110)
--- NOTE | 2021-04-07 09:55 | CASEMGMT ---
STEFANO GUSTAFSON assessment: Face to Face with patient for initial transition planning/care coordination assessment. STEFANO GUSTAFSON introduced self and role at [facility], pt voices understanding and consents to assessment. Pt is sitting up in bed in no distress on room air. Pt is A/Ox4 and answers all questions appropriately. Pt's is at bedside during assessment. Care providers, pharmacy, and demographics verified. Admitting dx: Left Carotid endarterectomy PCP: Arnold Specialists: saroj Antony; arianna Tony [facility]erred [facility]acy: [facility] Insurance: MCR A/B, [employer] Prescription Benefit: Yes Living Will/HPOA: Pt has LW/HPOA and is aware that they are on file at [facility]. Pt's , Galina Alegria, is listed as HPOA. LNOK: Galina Alegria, ; Yesica Mcgee, daughter Living Arrangements: Pt states lives with in 1 story condo and states no concerns at home. Pt states is independent with ADL's. Transportation: Pt states drives self or drives and states no transportation concerns. DME/HHC: Pt states has the following DME: cane, tub bench, grab bars, nebulizer, and cpap thru [facility]. Pt states no need for any further DME. Pt states has had HHC in the past and has been to TCU and IP rehab. Pt states no concerns with going home at time of discharge. Pt is retired. Pt states does not smoke cigarettes or drink ETOH. Pt states no further concerns/needs. CM to follow for any further discharge planning/needs. Advised pt to ask for CM if any further questions/concerns/needs arise, voices understanding. Pt Goal: Home Plan[place] STEFANO GUSTAFSON
[2021-04-07 11:25] LABS: Bedside Glucose 110 mg/dL (70-110)
--- NOTE | 2021-04-07 11:35 | CASEMGMT ---
Per Kit AGARWAL, pt does not qualify for home oxygen. Pt ready for discharge. Pato AGARWAL CM
== END 2021-04-07 13:11 | disposition home or self-care (01) | DRG 38 ==
LOC: ACINP 07:08 → PCU 13:26
PROVIDERS: Admitting Provider Surgery; PCP Family Medicine; Referring Provider Surgery; Visit Provider Internal Medicine
PROC: 03HY32Z Insertion of Monitoring Device into Upper Artery, Percutaneous Approach (ICD-10-PCS; CPT 35301; principal; 2021-04-06 07:10)
DX: I65.23 Occlusion and stenosis of bilateral carotid arteries (principal); I13.0 Hypertensive heart and chronic kidney disease with heart failure and stage 1 through stage 4 chronic kidney disease, or unspecified chronic kidney disease; I50.22 Chronic systolic (congestive) heart failure; I48.0 Paroxysmal atrial fibrillation; Z79.01 Long term (current) use of anticoagulants; Z87.891 Personal history of nicotine dependence; E03.9 Hypothyroidism, unspecified; E11.22 Type 2 diabetes mellitus with diabetic chronic kidney disease; E11.21 Type 2 diabetes mellitus with diabetic nephropathy; N18.31 Chronic kidney disease, stage 3a; D64.9 Anemia, unspecified; Z95.810 Presence of automatic (implantable) cardiac defibrillator; Z79.82 Long term (current) use of aspirin; Z95.1 Presence of aortocoronary bypass graft; I25.2 Old myocardial infarction; Z79.4 Long term (current) use of insulin
CPT/HCPCS: 36415; 80048; 82962; 83735; 85025; 85347; 88304; 88311; 94640; 99251; J7040; J7120; A4216; G0463; J1940; J2405

== ENCOUNTER → 2021-04-21 12:47 | Outpatient (CLI) | payer MEDICARE, OTHER, SELFPAY ==
--- NOTE | 2021-04-21 12:48 | CDUL_ITS ---
Reason For Study: Dizziness Lt. Velocities/BP Prox CCA 63/12.1 cm/sec. Mid CCA 61.7/12.1 cm/sec. Dist CCA 63/13.4 cm/sec. Prox ICA 79.1/20.6 cm/sec. Mid ICA 104.7/27.9 cm/sec. Dist ICA 97.4/24.3 cm/sec. Lt. ICA/CCA = 1.66. Prox ECA 211.1/7.4 cm/sec. Lt. Vert. 43.4/9 cm/sec. Left Extracranial There is heterogeneous, irregular atherosclerotic plaque noted in the left common carotid artery. There is heterogeneous, irregular atherosclerotic plaque noted in the left internal carotid artery. There is heterogeneous, irregular atherosclerotic plaque noted in the left external carotid artery. Antegrade flow is noted in the left vertebral artery. Procedure Carotid Duplex 23736. This is a Carotid Duplex examination using B-mode, color flow and specral Doppler. Exam performed in department. VL/Carotid Unilateral Interpretation Summary Widely patent postoperative changes of the left carotid bulb and proximal inter nal carotid artery Less than 50% stenosis left internal carotid artery Greater than 50% stenosis left external carotid artery Patent antegrade left vertebral Notable improvement in the left internal carotid artery from the previous exami nation of January 17, 2021 Ordering Physician: Khai Antony Referring Physician: Corin Hernandez M.D. Performed By: Chastity Swanson RVT
== END ==
PROVIDERS: PCP Family Medicine; Referring Provider Surgery; Visit Provider Surgery
DX: R09.89 Other specified symptoms and signs involving the circulatory and respiratory systems (principal); R42 Dizziness and giddiness
CPT/HCPCS: 93882

== ENCOUNTER → 2021-05-27 07:38 | Outpatient (CLI) | payer MEDICARE, OTHER, SELFPAY | PROVIDERS: Visit Provider Family Medicine | DX: Z71.89 Other specified counseling (principal) | CPT/HCPCS: 87635; U0005; U0003 ==

== ENCOUNTER → 2021-05-31 16:50 | Outpatient (CLI) | payer MEDICARE, OTHER, SELFPAY | PROVIDERS: PCP Family Medicine; Referring Provider Family Medicine; Visit Provider Family Medicine | DX: U07.1 COVID-19 (principal); R05.9 Cough, unspecified | CPT/HCPCS: 87635; U0005; U0003 ==

== ENCOUNTER → 2021-06-01 10:29 | Outpatient (CLI) | payer MEDICARE, OTHER, SELFPAY | PROVIDERS: PCP Family Medicine; Referring Provider Family Medicine; Visit Provider Family Medicine | DX: R05.9 Cough, unspecified (principal) | CPT/HCPCS: 87070; 87205 ==

== ENCOUNTER 2021-06-02 13:50 | Outpatient (CLI) | payer MEDICARE, OTHER, SELFPAY ==
[2021-06-02 14:21] VITALS: BP 126/52; PULSE 74; RESP 16; TEMP 36.6; O2SAT 97; BMI 25.7
[2021-06-02] MEDS: 0.9% Saline Lock 10 ML Syringe IV (14:34)
[2021-06-02 14:50] VITALS: BP 128/60; PULSE 63; RESP 16; TEMP 36.6; O2SAT 98
[2021-06-02 15:50] VITALS: BP 124/58; PULSE 62; RESP 16; TEMP 36.7; O2SAT 97
== END 2021-06-02 15:53 | disposition home or self-care (01) ==
LOC: MS3OUT 16:06 → MS3 16:06
PROVIDERS: PCP Family Medicine; Referring Provider Nurse Practitioner Adult Health; Visit Provider Nurse Practitioner Adult Health
DX: Z23 Encounter for immunization (principal); U07.1 COVID-19
CPT/HCPCS: M0243; Q0240

== ENCOUNTER → 2021-07-05 11:13 | Outpatient (CLI) | payer MEDICARE, OTHER, SELFPAY ==
--- NOTE | 2021-07-05 11:16 | RAD_ITS ---
STUDY: X-RAY CHEST REASON FOR EXAM: Male, 80 years old. Cough. TECHNIQUE: Frontal and lateral views of the chest. COMPARISON: 01/30/2021. FINDINGS: Mild cardiomegaly with scattered healed parenchymal granulomatous calcifications, unchanged. There is no demonstrated pleural abnormality. Stable cardiomegaly, pacer and left atrial appendage closure device. Stable diffuse mild thoracic spondylosis. There is no demonstrated abnormality of the visualized soft tissue structures of the upper abdomen. RAD/Chest PA and Lateral IMPRESSION: Stable chest with no new or acute finding. Electronically Signed: Liam Delgadillo MD at 12:25 EST , Service support ,
== END ==
PROVIDERS: PCP Family Medicine; Referring Provider Family Medicine; Visit Provider Family Medicine
DX: R05.3 Chronic cough (principal)
CPT/HCPCS: 71046

== ENCOUNTER 2021-08-31 06:57 | Outpatient (CLI) | payer MEDICARE, OTHER, SELFPAY ==
[2021-08-31 08:21] LABS: Hemoglobin A1c 6.9 % (3.8-5.6)
[2021-08-31 08:26] LABS: AST(SGOT) 19 U/L (15-37); Alanine Aminotransfer ALT/SGPT 28 U/L (16-61); Albumin, Serum 3.4 g/dL (3.2-5.0); Alkaline Phosphatase 79 U/L (45-117); Anion Gap 8 (5-15); BUN 26 mg/dL (7-18); BUN/Creat Ratio 15.1 RATIO (10-20); Calcium,Total 8.9 mg/dL (8.5-10.1); Chloride 107 mmol/L (98-107); Cholesterol 120 mg/dL (200); Creatinine, Serum 1.72 mg/dL (0.70-1.30); EST Glomerular Filtration Rate 41 mL/min (>60); Est Glom Filt Rate - Afr Amer 49 mL/min (>60); Globulin 3.5 g/dL (2.2-4.2); Glucose 145 mg/dL (74-106); High Density Lipoprotein 62 mg/dL; Potassium 3.9 mmol/L (3.5-5.1); Protein, Total 6.9 g/dL (6.4-8.2); Sodium Level 143 mmol/L (136-145); T4 Free Direct 1.22 ng/dL (0.76-1.46); Thyroid Stim Hormone (TSH) 1.28 uIU/mL (0.358-3.74); Triglycerides 117 mg/dL; Very Low Density Lipoprotein 23 mg/dL (5-40)
[2021-08-31 08:31] LABS: Vitamin D,25 Hydroxy 56.5 ng/mL
== END 2021-08-31 23:59 | disposition short-term general hospital (02) ==
LOC: LAB 07:02
PROVIDERS: PCP Family Medicine; Referring Provider Internal Medicine Endocrinology, Diabetes & Metabolism; Visit Provider Internal Medicine Endocrinology, Diabetes & Metabolism
DX: E11.22 Type 2 diabetes mellitus with diabetic chronic kidney disease (principal); Z79.4 Long term (current) use of insulin; N18.30 Chronic kidney disease, stage 3 unspecified; E03.9 Hypothyroidism, unspecified; E55.9 Vitamin D deficiency, unspecified
CPT/HCPCS: 36415; 80053; 80061; 82306; 83036; 84439; 84443

== ENCOUNTER 2022-01-01 16:29 | Inpatient (IN) | payer MEDICARE, OTHER, SELFPAY ==
[2022-01-01] VITALS (9 sets, daily range): BP systolic 168–189; BP diastolic 79–102; PULSE 92–111; RESP 16–28; TEMP 36.2–36.5; O2SAT 85–98; BMI 26.9; BMI 27.4
--- NOTE | 2022-01-01 16:46 | CT_ITS ---
STUDY: CT ABDOMEN AND PELVIS WITH CONTRAST REASON FOR EXAM: Male, 81 years old. llq abdominal pain Diarrhea x1 week, RADIATION DOSAGE (If Supplied By Facility): CTDIvol = ( 19.74 ) mGy, DLP = ( 1213.20 ) mGycm TECHNIQUE: Transaxial images were obtained from the dome of the diaphragm to the symphysis pubis without oral contrast. IV 100mL Isovue-300 was administered. Sagittal and coronal images were reconstructed. Individualized dose optimization techniques were used for this CT. COMPARISON: 10/21/2016 FINDINGS: Small bilateral pleural effusions. The visualized portions of the heart are within normal limits. Normal liver. There are surgical clips in the gallbladder fossa consistent with a prior cholecystectomy. Simple left splenic cyst. No required imaging follow-up needed given high likelihood of benign nature. Normal pancreas. Normal bilateral adrenal glands. Atrophic and ptotic right kidney. Stable right renal pelvis/UPJ calculi measuring 1.7 cm in total. Simple left renal cysts. Anterior cyst on image 38 measures 1.2 cm with layering calcifications. Normal visualized stomach. Normal small intestine. There is diverticulosis, with thickening of the colon wall, and pericolonic inflammation changes consistent with acute diverticulitis. The appendix is visualized and appears normal. There is diffuse atherosclerotic calcification of the abdominal aorta, without a demonstrated aneurysm. Mild aberrant course of left common/external iliac arteries (posterior psoas muscle). Left-sided inferior vena cava. Normal retroperitoneum. Normal urinary bladder. There are prostatic calcifications. There is a right-sided inguinal hernia containing adipose tissue. There are diffuse degenerative changes of the visualized lumbar spine. CT/Abdomen/Pelvis W IV Cont ONLY IMPRESSION: 1. Descending colon diverticulitis. No abscess or pneumoperitoneum. 2. Small bilateral pleural effusions. 3. Chronic changes, as above. Electronically Signed: Abdifatah Harper MD (Brooks) at 21:04 EDT Reading Location ID and State: [facility] / [place] , Service support ,
--- NOTE | 2022-01-01 16:47 | EDS_ITS ---
HPI HPI - GI History of Present Illness Chief Complaint: Abd Pain Narrative Narrative: 81-year-old male presenting with diarrhea for the last 5 days or so. He states he is also having some left lower quadrant abdominal pain. He denies black or bloody stools. He denies nausea or vomiting. He denies fever or chills. Patient states that his diet has not specifically been changed but he did eat some popcorn last evening. He denies nuts or seeds. Patient has no recent antibiotics use. No urinary complaints. 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 Bilateral carotid bruits Cardiac arrest with ventricular fibrillation (06/2015) Cardiology follow-up encounter Carotid stenosis, left Chronic kidney disease (CKD) Chronic systolic (congestive) heart failure COPD (chronic obstructive pulmonary disease) COVID-19 (06/01/21) CPAP (continuous positive airway pressure) dependence Dark stools Dietary restriction Dizziness Elevated LFTs Essential (primary) hypertension History of acute bacterial endocarditis History of echocardiogram History of stress test HLD (hyperlipidemia) Hypokalemia Hypothyroidism Infection and inflammatory reaction due to other cardiac and vascular devices, implants and grafts, initial encounter Infectious endocarditis Insulin dependent diabetes mellitus Iron deficiency Ischemic cardiomyopathy Left bundle branch block Malignant pericardial effusion Night sweats Nonrheumatic mitral (valve) prolapse Paroxysmal atrial fibrillation Postoperative atrial fibrillation Primary idiopathic hypertrophic cardiomyopathy Thalamic mass Type II diabetes mellitus Wears dentures Wears glasses Wears hearing aid Home Medications budesonide-formoterol 2 puff INHALATION DAILY 05/20/18 [History Last Taken 03/20/20 19:00 2 puff] cholecalciferol (vitamin D3) 1,000 unit PO BID 05/20/18 [History Last Taken 03/20/20 19:00 1000 units] ferrous gluconate 325 mg PO BIDCM 05/20/18 [History Last Taken 03/20/20 19:00 325 mg] insulin aspart U-100 12 units SC BREAKFAST 05/20/18 [History Last Taken 03/20/20 08:00 12 units] insulin aspart U-100 12 units SC DINNER 05/20/18 [History Last Taken 03/20/20 18:00 12 units] levothyroxine 100 mcg PO MOTUWETHFRSA 05/20/18 [History Last Taken 04/06/21] levothyroxine 200 mcg PO JARVIS 05/20/18 [History Last Taken 03/20/20 06:00 200 mcg] multivitamin 1 each PO DAILY 05/20/18 [History Last Taken 03/20/20 08:00 1 each] omega-3 fatty acids-fish oil 1 each PO DAILY 05/20/18 [History Last Taken 03/20/20 08:00 1 each] tiotropium bromide 18 mcg IH BID 05/20/18 [History Last Taken 03/20/20 19:00 18 mcg] apixaban 2.5 mg tablet 2.5 mg PO BID 06/29/20 [History Last Taken Unknown] Handicap Parking Placard #1 ea 08/25/20 [Rx Last Taken Unknown] albuterol sulfate 90 mcg/actuation aerosol inhaler 2 puff INHALATION Q4H PRN #18 gm 11/22/20 [Rx Last Taken Unknown] insulin glargine 12 unit SQ QHS 11/24/20 [History Last Taken Unknown] lactobacillus comb no.10 1 each PO BID 11/24/20 [History Last Taken Unknown] ascorbic acid (vitamin C) 1,000 mg tablet 1,000 mg PO DAILY tab 12/29/20 [History Last Taken Unknown] fluticasone propionate 50 mcg/actuation nasal spray,suspension 2 spray INTRANASAL DAILY 12/29/20 [History Last Taken Unknown] albuterol sulfate 2.5 mg CONTINUOUS NEBULIZATION QHS 01/30/21 [History Last Taken Unknown] atorvastatin 10 mg tablet 10 mg PO QHS #90 tab 06/21/21 [Rx Last Taken Unknown] furosemide 20 mg tablet 20 mg PO DAILY #90 tab 09/23/21 [Rx Last Taken Unknown] amlodipine 5 mg tablet 5 mg PO BID #180 tab 11/28/21 [Rx Last Taken Unknown] carvedilol 25 mg tablet 25 mg PO BID #180 tab 11/28/21 [Rx Last Taken Unknown] magnesium oxide 400 mg PO DAILY cap 12/12/21 [History Last Taken Unknown] Allergy/AdvReac Type Severity Reaction Status Date / Time latex Allergy Other Verified 01/01/22 16:31 LAURA Inhibitors AdvReac Intermediate cough Verified 01/01/22 16:31 enalapril AdvReac Intermediate Shortness Verified 01/01/22 16:31 of breath adhesive tape AdvReac rash Verified 01/01/22 16:31 azithromycin AdvReac Other Verified 01/01/22 16:31 [From Zithromax Z-Robert] levofloxacin [From Levaquin] AdvReac Other Verified 01/01/22 16:31 warfarin [From Coumadin] AdvReac bleeding Verified 01/01/22 16:31 under the skin Family History Father , age 47 from peritonitis Peritonitis Mother , age 93 CVA (cerebral vascular accident) several TIA's Surgical History Abnormal fractional flow reserve (FFR) on cardiac catheterization (02/2017) H/O coronary artery bypass surgery (04/27/17) History of cardioversion (04/2017) History of implantable cardiac defibrillator (ICD) (01/31/16) History of left heart catheterization History of partial amputation of left hand Hx of bilateral cataract extraction Hx of cholecystectomy Hx of prostatectomy ICD (implantable cardioverter-defibrillator) infection Social History (Updated 01/01/22 @ 21:[address] Kalpana Elam MD) household members: spouse Smoking Status: Former smoker how long ago did patient quit smoking: Quit ~ 50 years prior, prior to quitting up to 4 ppd since 7/10 years old. alcohol intake: never substance use type: does not use caffeine: No what type of physical activity do you participate in: walking frequency: 5-6 times per week duration: 15-30 minutes/day seatbelt use: always do you feel safe at home: Yes ROS ROS ED Constitutional Constitutional ED: Denies fever(s) ENT ENT ED: Denies rhinorrhea or sore throat Cardiovascular Cardiovascular: Denies chest pain or palpitations Respiratory/Chest Respiratory/Chest: Denies cough or dyspnea Gastrointestinal Gastrointestinal: Reports abdominal pain and diarrhea; Denies constipation, nausea or vomiting Genitourinary Genitourinary ED: Denies dysuria or hematuria Musculoskeletal Musculoskeletal: Denies arthralgias or myalgias Integumentary Denies rash Neurologic Neurologic: Denies headache(s) or weakness Psychiatric Psychiatric: Denies anxiety or depression EXAM Physical Exam Const Vital Signs: 01/01/22 16:31 01/01/22 19:09 01/01/22 19:11 Temperature 97.2 F L Temperature Source Temporal Pulse Rate 92 Respiratory Rate 18 Respiratory Effort Short of Breath Blood Pressure 189/102 H Blood Pressure Mean 131 Pulse Ox 98 85 Oxygen Delivery Method Room Air Room Air Nasal Cannula Oxygen Flow Rate (L/min) 4 01/01/22 19:32 01/01/22 20:14 01/01/22 21:00 Temperature Temperature Source Pulse Rate 111 H 100 Respiratory Rate 28 H 17 Respiratory Effort Blood Pressure Blood Pressure Mean Pulse Ox 97 98 93 Oxygen Delivery Method Nasal Cannula Nasal Cannula Room Air Oxygen Flow Rate (L/min) 4 3 Positive well nourished General Appearance ED: NAD; Negative for pallor HEENT Reports moist mucous membranes normocephalic and atraumatic Eyes PERRL and EOMs intact bilaterally Resp normal respiratory effort Cardio regular rate and regular rhythm GI Palpation: tender LLQ Back/Spine no CVA tenderness Lumbar Spine / Lower Back: Negative for lumbar spinal tenderness Neuro CN's II-XII intact bilaterally and no sensory deficits noted Sensorium / Orientation: alert, oriented to person, oriented to place and oriented to time Motor Exam: strength 5/5 throughout Psych mental status grossly normal and thought process normal Skin General Skin Exam: Negative for jaundice or pallor Lesions: no lesions Rashes: no rashes MDM MDM MDM Narrative Medical decision making narrative: BloodPatient presenting for left lower quadrant abdominal pain. He is able to localize it specifically only in the left lower quadrant. Work and his CBC shows no leukocytosis. Hemoglobin stable at 11.9. Platelets normal at 199. There was a delay in care of getting a CAT scan of the abdomen pelvis because we are waiting for the patient's renal function and his CMP hemolyzed. Upon obtaining this his creatinine is noted to be 1.51. Patient was initially ordered a liter bolus of IV fluids however he became dyspneic and this was stopped. We had to delay care again because he did not want a CAT scan and states that he feels funny. I did ask him if he is allergic to morphine and he stated that he was not and had not had a reaction before. Listening to his lungs he has sort of bibasilar crackles. He is placed on oxygen. He seems to be improving on reevaluation he still on a couple of liters of oxygen and states that he feels much better and the rattles resolved. At this point I sent him back over to CT of the abdomen pelvis and obtained a chest x-ray and the chest x-ray on my interpretation showed bilateral pleural effusions. The radiologist does agree. BNP slightly elevated at 193. High- sensitivity troponin was 16. EKG on my interpretation shows a sinus rhythm, with a ventricular rate of 111 bpm with a left bundle branch block and PVCs. CT of the abdomen pelvis consistent with sigmoid diverticulitis. Given that the patient had required oxygen due to volume overload in the setting of his diverticulitis I think he needs to be admitted. Specifically for his diverticulitis if he did not have respiratory issues I think he could have probably gone home on Augmentin. Discussed with the hospitalist and they did agree to admit the patient. Impression: 1. CHF exacerbation 2. Acute sigmoid diverticulitis 3. Hypoxia 4. Dyspnea on Lab Data Attestation: I reviewed the patient's lab results. Labs: Laboratory Results - last 24 hr 01/01/22 01/01/22 01/01/22 17:23 17:23 17:25 WBC 11.0 RBC 3.98 L Hgb 11.9 L Hct 37.3 L MCV 93.7 MCH 29.9 MCHC 31.9 L RDW Std Deviation 49.3 H RDW Coeff of [place] 14.6 Plt Count 199 MPV 10.2 Immature Gran % (Auto) 0.400 Neut % (Auto) 78.9 H Lymph % (Auto) 11.0 L [place] % (Auto) 7.6 Eos % (Auto) 1.8 Baso % (Auto) 0.3 Absolute Neuts (auto) 8.7 H Absolute Lymphs (auto) 1.21 Nucleated RBC % 0 Sodium Cancelled Potassium Cancelled Chloride Cancelled Carbon Dioxide Cancelled Anion Gap Cancelled BUN Cancelled Creatinine Cancelled Estim Creat Clear Calc Cancelled Est GFR (MDRD) Af Amer Cancelled Est GFR (MDRD) Non-Af Cancelled BUN/Creatinine Ratio Cancelled Glucose Cancelled Calcium Cancelled Magnesium Total Bilirubin Cancelled AST Cancelled ALT Cancelled Alkaline Phosphatase Cancelled Troponin I High Sens B-Natriuretic Peptide 193.7 H Total Protein Cancelled Albumin Cancelled Globulin Cancelled Albumin/Globulin Ratio Cancelled Urine Color Urine Clarity Urine pH Ur Specific [place] Urine Protein Urine Glucose (UA) Urine Ketones Urine Occult Blood Urine Nitrite Urine Bilirubin Urine Urobilinogen Ur Leukocyte Esterase Urine RBC Urine WBC Ur Squamous Epith Cells Urine Bacteria Urine Mucus POC Glucose 01/01/22 01/01/22 01/01/22 17:33 17:45 18:15 WBC RBC Hgb Hct MCV MCH MCHC RDW Std Deviation RDW Coeff of [place] Plt Count MPV Immature Gran % (Auto) Neut % (Auto) Lymph % (Auto) [place] % (Auto) Eos % (Auto) Baso % (Auto) Absolute Neuts (auto) Absolute Lymphs (auto) Nucleated RBC % Sodium 142 Potassium 5.0 Chloride 110 H Carbon Dioxide 28.0 Anion Gap 4 L BUN 27 H Creatinine 1.51 H Estim Creat Clear Calc 43.10 Est GFR (MDRD) Af Amer 57 L Est GFR (MDRD) Non-Af 47 L BUN/Creatinine Ratio 17.9 Glucose 133 H Calcium 8.7 Magnesium Total Bilirubin 0.40 AST 36 ALT 28 Alkaline Phosphatase 83 Troponin I High Sens B-Natriuretic Peptide Total Protein 7.1 Albumin 3.5 Globulin 3.6 Albumin/Globulin Ratio 1.0 Urine Color Yellow Urine Clarity Clear Urine pH 6.0 Ur Specific [place] 1.010 Urine Protein 100 H Urine Glucose (UA) Normal Urine Ketones Negative Urine Occult Blood 25 H Urine Nitrite Negative Urine Bilirubin Negative Urine Urobilinogen Normal Ur Leukocyte Esterase Negative Urine RBC 0 SEEN Urine WBC 0 SEEN Ur Squamous Epith Cells 0 SEEN Urine Bacteria 0 SEEN Urine Mucus 0 SEEN POC Glucose 136 H 01/01/22 01/01/22 01/01/22 18:15 18:15 18:40 WBC RBC Hgb Hct MCV MCH MCHC RDW Std Deviation RDW Coeff of [place] Plt Count MPV Immature Gran % (Auto) Neut % (Auto) Lymph % (Auto) [place] % (Auto) Eos % (Auto) Baso % (Auto) Absolute Neuts (auto) Absolute Lymphs (auto) Nucleated RBC % Sodium Potassium Chloride Carbon Dioxide Anion Gap BUN Creatinine Estim Creat Clear Calc Est GFR (MDRD) Af Amer Est GFR (MDRD) Non-Af BUN/Creatinine Ratio Glucose Calcium Magnesium 1.7 Total Bilirubin AST ALT Alkaline Phosphatase Troponin I High Sens 16 B-Natriuretic Peptide Total Protein Albumin Globulin Albumin/Globulin Ratio Urine Color Urine Clarity Urine pH Ur Specific [place] Urine Protein Urine Glucose (UA) Urine Ketones Urine Occult Blood Urine Nitrite Urine Bilirubin Urine Urobilinogen Ur Leukocyte Esterase Urine RBC Urine WBC Ur Squamous Epith Cells Urine Bacteria Urine Mucus POC Glucose 103 01/01/22 20:56 WBC RBC Hgb Hct MCV MCH MCHC RDW Std Deviation RDW Coeff of [place] Plt Count MPV Immature Gran % (Auto) Neut % (Auto) Lymph % (Auto) [place] % (Auto) Eos % (Auto) Baso % (Auto) Absolute Neuts (auto) Absolute Lymphs (auto) Nucleated RBC % Sodium Potassium Chloride Carbon Dioxide Anion Gap BUN Creatinine Estim Creat Clear Calc Est GFR (MDRD) Af Amer Est GFR (MDRD) Non-Af BUN/Creatinine Ratio Glucose Calcium Magnesium Total Bilirubin AST ALT Alkaline Phosphatase Troponin I High Sens B-Natriuretic Peptide Total Protein Albumin Globulin Albumin/Globulin Ratio Urine Color Urine Clarity Urine pH Ur Specific [place] Urine Protein Urine Glucose (UA) Urine Ketones Urine Occult Blood Urine Nitrite Urine Bilirubin Urine Urobilinogen Ur Leukocyte Esterase Urine RBC Urine WBC Ur Squamous Epith Cells Urine Bacteria Urine Mucus POC Glucose 130 H Radiography Diagnostic Testing: Clinical Impression(s) from Imaging Studies Abdomen/Pelvis CT 01/01/22 16:46 IMPRESSION: 1. Descending colon diverticulitis. No abscess or pneumoperitoneum. 2. Small bilateral pleural effusions. 3. Chronic changes, as above. Electronically Signed: Abdifatah Harper MD ([place]) at 21:04 EDT , Chest X-Ray 01/01/22 19:23 IMPRESSION: Unfavorable change. CHF with interstitial edema and trace effusions. Electronically Signed: Abdifatah Harper MD (Brooks) at 20:05 EDT , Discharge Plan Disposition Disposition: Acute Care Hospital [facility] Discharge Date/Time: 01/01/22 22:12
[2022-01-01 17:32] LABS: Absolute Lymphocyte Count 1.21 X10^3/uL (0.83-4.51); Absolute Neutrophil Count 8.7 X10^3/uL (2.0-7.7); Basophil# 0.03 X10^3/uL; Basophil% 0.3 % (0-1); Eosinophils% 1.8 % (0-5); Hematocrit 37.3 % (40-54); Hemoglobin 11.9 g/dL (13.0-16.5); Lymphocyte # 1.21 X10^3/ul (0.83-4.51); Mean Corp Hgb Conc 31.9 g/dL (32-36); Mean Corpuscular Hgb 29.9 pg (27.0-32.0); Mean Corpuscular Volume 93.7 fL (80-94); Mean Platelet Vol. 10.2 fl (6.2-12.0); Monocyte# 0.84 X10^3/uL; Monocyte% 7.6 % (0-10); NRBC Flagged by Analyzer 0 % (0-5); Neutrophil # 8.72 X10^3/uL (2.7-7.7); Neutrophil % 78.9 % (47-70); Platelet Count 199 K/mm3 (150-450); RBC Distribution Width CV 14.6 % (11.6-14.6); RBC Distribution Width SD 49.3 fl (35.1-43.9); Red Blood Count 3.98 M/mm3 (4.6-6.2)
[2022-01-01 17:35] LABS: Bedside Glucose 136 mg/dL (74-106)
[2022-01-01 17:51] LABS: Bacteria 0 SEEN /hpf (None Seen); Mucous, Urine 0 SEEN /hpf (<or=2+); Red Blood Cells-Urine 0 SEEN /hpf (0-5); Squamous Epithelial Cells - UA 0 SEEN /hpf (0-5); White Blood Cells 0 SEEN /hpf (0-5)
[2022-01-01 17:52] LABS: Color, Urine Yellow (Yellow); Glucose, Dipstick Normal (Normal); Ketone-Dipstick Negative (Negative); Leukocyte Esterase-Dipstick Negative /ul (Negative); Nitrite-Dipstick Negative (Negative); Occult Blood-Urine 25 /ul (Negative); Protein-Dipstick 100 mg/dl (Negative); Urine Bilirubin Dipstick Negative (Negative); Urine Clarity Clear (Clear); Urine Urobilinogen Normal (Normal)
[2022-01-01] MEDS: 0.9% Normal Saline 1,000 ML 1000 ML IV (18:19)
[2022-01-01 18:46] LABS: Bedside Glucose 103 mg/dL (74-106)
[2022-01-01] MEDS: Morphine 4 MG/ML Syringe IV (18:47)
[2022-01-01 18:48] LABS: AST(SGOT) 36 U/L (15-37); Alanine Aminotransfer ALT/SGPT 28 U/L (16-61); Albumin, Serum 3.5 g/dL (3.2-5.0); Alkaline Phosphatase 83 U/L (45-117); Anion Gap 4 (5-15); BUN 27 mg/dL (7-18); BUN/Creat Ratio 17.9 RATIO (10-20); Calcium,Total 8.7 mg/dL (8.5-10.1); Chloride 110 mmol/L (98-107); Creatinine, Serum 1.51 mg/dL (0.70-1.30); EST Glomerular Filtration Rate 47 mL/min (>60); Est Glom Filt Rate - Afr Amer 57 mL/min (>60); Globulin 3.6 g/dL (2.2-4.2); Glucose 133 mg/dL (74-106); Protein, Total 7.1 g/dL (6.4-8.2); Sodium Level 142 mmol/L (136-145)
--- NOTE | 2022-01-01 19:23 | RAD_ITS ---
STUDY: X-RAY CHEST REASON FOR EXAM: Male, 81 years old. dyspnea TECHNIQUE: AP COMPARISON: 07/05/2021 FINDINGS: EKG leads project over the chest. Central pulmonary vascular congestion with interstitial and groundglass opacities have developed since the prior study. Trace pleural effusions. There is moderate cardiac enlargement. Sternal wires and mediastinal surgical clips compatible with prior CABG.. Atrial appendage clip. Cardiac conduction device overlies the chest. Normal mediastinum and alon. There is prominence of the pulmonary hilar arteries and peripheral pulmonary arteries, consistent with congestive heart failure (CHF). There is atherosclerotic calcification of the aortic arch with tortuosity. No acute bony process. There is no demonstrated abnormality of the visualized soft tissue structures of the upper abdomen. RAD/Chest 1 View (Portable) IMPRESSION: Unfavorable change. CHF with interstitial edema and trace effusions. Electronically Signed: Abdifatah Harper MD (Brooks) at 20:05 EDT ,
--- NOTE | 2022-01-01 19:23 | EKG12_ITS ---
Test Reason : DYSRHYTHMIA Blood Pressure : / mmHG Vent. Rate : 111 BPM Atrial Rate : 100 BPM P-R Int : 000 ms QRS Dur : 148 ms QT Int : 394 ms P-R-T Axes : 000 033 063 degrees QTc Int : 535 ms Sinus rhythm with Left Bundle Block Left bundle branch block Abnormal ECG Confirmed by CONNIE SPARKS, LOY ([id number]), map editor ANNE ORDAZ ([id number]) on 01/02/2022 1:06:04 PM Referred By: RIKA Confirmed By:LOY ROSALES MD
[2022-01-01 19:56] LABS: Troponin-I HS 16 pg/mL (3.0-78.0)
[2022-01-01 19:59] LABS: BNP,B-Type NATRIURETIC PEPTIDE 193.7 pg/mL (0-100)
[2022-01-01 21:01] LABS: Bedside Glucose 130 mg/dL (74-106)
--- NOTE | 2022-01-01 21:16 | PCM.HP.STD ---
HPI - General General Date of Admission: 01/01/22 Date of Service: 01/01/22 Chief Complaint: LLQ abdominal pain, loose stools HPI Narrative The patient is an 81 y/o M w/ PMHx: Hypothyroidism, CAD s/p CABG, Hx COVID-19 illness, CKD stage III unclear subtype, Overweight, Chronic anemia/iron deficiency anemia, COPD, Chronic Systolic CHF/Ischemic Cardiomyopathy s/p AICD placement, PAF, Diabetes mellitus type II, HTN, HLD, JOYCE on CPAP, Hx endocarditis, Former tobacco use who presents to the [facility] ED on 01/01/22 with history of onset loose stools (usually 3 daily) over the last 5 to 7 days with associated left lower quadrant discomfort, worse with palpation, 4-5 out of 10 in severity at its worse, dull throbbing with no nausea or emesis, fever or chills and no noted bright red bloody stools or black appearance with no alteration to his oral intake and no recent antibiotic usage however given not improving prompted ED evaluation. He notes having eaten popcorn the evening prior. He denies black or bloody stools. Patient in the emergency room initially had appeared separate from a pulmonary standpoint per discussion with ED staff however following 500 cc IV fluid administration in addition to morphine with hypoxia patient had increased work of breathing and had onset of rales with ED reevaluation with at that time concern for volume overload with chest x-ray which did demonstrate congestion although BNP not significantly elevated but 193.7 with administration Lasix 40 mg IV x1 with eventual improvement and transition back to room air although still mildly hypoxic at 93%. Patient does report some recent exertional dyspnea but denies significant weight gain, orthopnea or edema recently. Work-up in the ED included T97.2, heart rate 92, BP initially 189/102, respiratory rate 18, 98% on room air with repeat oxygen assessment 85% on room air following morphine 4 mg IV x1, improved to 98% on 3 L nasal cannula eventually transition to 93% on room air, CBC with WBC 11, hemoglobin 11.9, platelet 199 with left shift, CMP with chloride 110, BUN/creat 27/1.51, glucose 133 otherwise unremarkable hepatic profile, BNP 193.7, troponin 16, urinalysis unremarkable with no evidence of UTI or marked dehydration, CT abdomen and pelvis pending upon evaluation of patient, CXR with CHF with interstitial edema and trace effusions. In the ED patient was ordered 1 L normal saline but given presentation with worsened rales only given 500 cc prior to diuresis, morphine 4 mg IV x1, Zosyn and eventually administered Lasix 40 mg IV x1. [facility] Medical History 65 years of age or older Anemia Atherosclerotic heart disease of [place] coronary artery without angina pectoris Bacterial endocarditis Bilateral carotid bruits Cardiac arrest with ventricular fibrillation (06/2015) Cardiology follow-up encounter Carotid stenosis, left Chronic kidney disease (CKD) Chronic systolic (congestive) heart failure COPD (chronic obstructive pulmonary disease) COVID-19 (06/01/21) CPAP (continuous positive airway pressure) dependence Dark stools Dietary restriction Dizziness Elevated LFTs Essential (primary) hypertension History of acute bacterial endocarditis History of echocardiogram History of stress test HLD (hyperlipidemia) Hypokalemia Hypothyroidism Infection and inflammatory reaction due to other cardiac and vascular devices, implants and grafts, initial encounter Infectious endocarditis Insulin dependent diabetes mellitus Iron deficiency Ischemic cardiomyopathy Left bundle branch block Malignant pericardial effusion Night sweats Nonrheumatic mitral (valve) prolapse Paroxysmal atrial fibrillation Postoperative atrial fibrillation Primary idiopathic hypertrophic cardiomyopathy Thalamic mass Type II diabetes mellitus Wears dentures Wears glasses Wears hearing aid Home Medications budesonide-formoterol 2 puff INHALATION DAILY 05/20/18 [History Last Taken 03/20/20 19:00 2 puff] cholecalciferol (vitamin D3) 1,000 unit PO BID 05/20/18 [History Last Taken 03/20/20 19:00 1000 units] ferrous gluconate 325 mg PO BIDCM 05/20/18 [History Last Taken 03/20/20 19:00 325 mg] insulin aspart U-100 12 units SC BREAKFAST 05/20/18 [History Last Taken 03/20/20 08:00 12 units] insulin aspart U-100 12 units SC DINNER 05/20/18 [History Last Taken 03/20/20 18:00 12 units] levothyroxine 100 mcg PO MOTUWETHFRSA 05/20/18 [History Last Taken 04/06/21] levothyroxine 200 mcg PO JARVIS 05/20/18 [History Last Taken 03/20/20 06:00 200 mcg] multivitamin 1 each PO DAILY 05/20/18 [History Last Taken 03/20/20 08:00 1 each] omega-3 fatty acids-fish oil 1 each PO DAILY 05/20/18 [History Last Taken 03/20/20 08:00 1 each] tiotropium bromide 18 mcg IH BID 05/20/18 [History Last Taken 03/20/20 19:00 18 mcg] apixaban 2.5 mg tablet 2.5 mg PO BID 06/29/20 [History Last Taken Unknown] Handicap Parking Placard #1 ea 08/25/20 [Rx Last Taken Unknown] albuterol sulfate 90 mcg/actuation aerosol inhaler 2 puff INHALATION Q4H PRN #18 gm 11/22/20 [Rx Last Taken Unknown] insulin glargine 12 unit SQ QHS 11/24/20 [History Last Taken Unknown] lactobacillus comb no.10 1 each PO BID 11/24/20 [History Last Taken Unknown] ascorbic acid (vitamin C) 1,000 mg tablet 1,000 mg PO DAILY tab 12/29/20 [History Last Taken Unknown] fluticasone propionate 50 mcg/actuation nasal spray,suspension 2 spray INTRANASAL DAILY 12/29/20 [History Last Taken Unknown] albuterol sulfate 2.5 mg CONTINUOUS NEBULIZATION QHS 01/30/21 [History Last Taken Unknown] atorvastatin 10 mg tablet 10 mg PO QHS #90 tab 06/21/21 [Rx Last Taken Unknown] furosemide 20 mg tablet 20 mg PO DAILY #90 tab 09/23/21 [Rx Last Taken Unknown] amlodipine 5 mg tablet 5 mg PO BID #180 tab 11/28/21 [Rx Last Taken Unknown] carvedilol 25 mg tablet 25 mg PO BID #180 tab 11/28/21 [Rx Last Taken Unknown] magnesium oxide 400 mg PO DAILY cap 12/12/21 [History Last Taken Unknown] Allergy/AdvReac Type Severity Reaction Status Date / Time latex Allergy Other Verified 01/01/22 16:31 LAURA Inhibitors AdvReac Intermediate cough Verified 01/01/22 16:31 enalapril AdvReac Intermediate Shortness Verified 01/01/22 16:31 of breath adhesive tape AdvReac rash Verified 01/01/22 16:31 azithromycin AdvReac Other Verified 01/01/22 16:31 [From Zithromax Z-Robert] levofloxacin [From Levaquin] AdvReac Other Verified 05/08/22 16:31 warfarin [From Coumadin] AdvReac bleeding Verified 01/01/22 16:31 under the skin Family History Father , age 47 from peritonitis Peritonitis Mother , age 93 CVA (cerebral vascular accident) several TIA's Surgical History Abnormal fractional flow reserve (FFR) on cardiac catheterization (02/2017) H/O coronary artery bypass surgery (04/27/17) History of cardioversion (04/2017) History of implantable cardiac defibrillator (ICD) (01/31/16) History of left heart catheterization History of partial amputation of left hand Hx of bilateral cataract extraction Hx of cholecystectomy Hx of prostatectomy ICD (implantable cardioverter-defibrillator) infection Social History (Updated 01/01/22 @ 21:[address] Kalpana Elam MD) household members: spouse Smoking Status: Former smoker how long ago did patient quit smoking: Quit ~ 50 years prior, prior to quitting up to 4 ppd since 9/10 years old. alcohol intake: never substance use type: does not use caffeine: No what type of physical activity do you participate in: walking frequency: 5-6 times per week duration: 15-30 minutes/day seatbelt use: always do you feel safe at home: Yes ROS ROS Narrative Admission Review of Systems: CONSTITUTIONAL: No weight loss, fever, chills, + weakness or fatigue. HEENT: Eyes: No visual loss, blurred vision, double vision or yellow sclerae. Ears, Nose, Throat: No hearing loss, sneezing, congestion, runny nose or sore throat. SKIN: No rash or itching, lesions, wounds. CARDIOVASCULAR: No chest pain, chest pressure or chest discomfort, palpitations, edema, orthopnea, syncopal events. RESPIRATORY: + Shortness of breath, No cough or sputum, wheezing, hemoptysis. GASTROINTESTINAL: + LLQ pain, loose stools. No anorexia, nausea, vomiting, melena, BRBPR. GENITOURINARY: No dysuria, frequency, urgency or retention. NEUROLOGICAL: No headache, dizziness, syncope, paralysis, ataxia, numbness or tingling in the extremities, focal weakness, change in bowel or bladder control, seizure. MUSCULOSKELETAL: + muscle, back pain, joint pain or stiffness. HEMATOLOGIC: + anemia, bleeding or bruising. LYMPHATICS: No enlarged nodes. No history of splenectomy. PSYCHIATRIC: No history of depression or anxiety. ENDOCRINOLOGIC: No reports of sweating, cold or heat intolerance. No polyuria or polydipsia. ALLERGIES: + history of rhinitis. Vital Signs Vital Signs Vital Signs: 01/01/22 16:31 01/01/22 19:09 01/01/22 19:11 Temperature 97.2 F L Temperature Source Temporal Pulse Rate 92 Respiratory Rate 18 Respiratory Effort Short of Breath Blood Pressure 189/102 H Blood Pressure Mean 131 Pulse Ox 98 85 Oxygen Delivery Method Room Air Room Air Nasal Cannula Oxygen Flow Rate (L/min) 4 01/01/22 19:32 01/01/22 20:14 01/01/22 21:00 Temperature Temperature Source Pulse Rate 111 H 100 Respiratory Rate 28 H 17 Respiratory Effort Blood Pressure Blood Pressure Mean Pulse Ox 97 98 93 Oxygen Delivery Method Nasal Cannula Nasal Cannula Room Air Oxygen Flow Rate (L/min) 4 3 Weight Weight: 210 lb Body Mass Index (BMI) 26.9 Physical Exam Narrative Physical Examination: General: Awake, alert, oriented x 3 and cooperative, seated upright in the ED bed, initially assisted to the side to urinate, appeared short of breath, worse with activity. Skin: Normal color, normal turgor, no icterus, no cyanosis. HEENT: AT/NC, EOMI, PERRLA, MMM, no carotid bruits, + JVD noted Lungs: Diminished, Rales bilateral bases, soft occasional end expiratory wheeze, some upper airway sounds noted. Heart: Currently regular rate and rhythm; no gallop, rub audible. Abdomen: Soft, overweight, left lower quadrant tenderness to palpation with no specific rebound or guarding, appears mildly distended, hypoactive bowel sounds, no obvious HSM. Extremities: No cyanosis, clubbing, or edema. Neurological: Patient awake, alert, oriented as noted, cognitive function intact; pupils equally reactive to light and accommodation, cranial nerves II-XII grossly normal, moving all 4 extremities, no focal deficits, strength moderately global decreased secondary to worsened status in the ED Psychiatric: Affect appears fatigued otherwise normal, no acute evidence of depressive or anxiety feelings. Results Lab / Micro Data Result Diagrams: 01/01/22 17:23 01/01/22 18:15 Labs: Laboratory Results - last 24 hr 01/01/22 17:23: WBC 11.0, RBC 3.98 L, Hgb 11.9 L, Hct 37.3 L, MCV 93.7, MCH 29.9, MCHC 31.9 L, RDW Std Deviation 49.3 H, RDW Coeff of Harrs[place] 14.6, Plt Count 199, MPV 10.2, Immature Gran % (Auto) 0.400, Neut % (Auto) 78.9 H, Lymph % (Auto) 11.0 L, Yell % (Auto) 7.6, Eos % (Auto) 1.8, Baso % (Auto) 0.3, Absolute Neuts (auto) 8.7 H, Absolute Lymphs (auto) 1.21, Nucleated RBC % 0 01/01/22 17:23: Sodium Cancelled, Potassium Cancelled, Chloride Cancelled, Carbon Dioxide Cancelled, Anion Gap Cancelled, BUN Cancelled, Creatinine Cancelled, Estim Creat Clear Calc Cancelled, Est GFR (MDRD) Af Amer Cancelled, Est GFR (MDRD) Non-Af Cancelled, BUN/Creatinine Ratio Cancelled, Glucose Cancelled, Calcium Cancelled, Total Bilirubin Cancelled, AST Cancelled, ALT Cancelled, Alkaline Phosphatase Cancelled, Total Protein Cancelled, Albumin Cancelled, Globulin Cancelled, Albumin/Globulin Ratio Cancelled 01/01/22 17:25: B-Natriuretic Peptide 193.7 H 01/01/22 17:33: POC Glucose 136 H 01/01/22 17:45: Urine Color Yellow, Urine Clarity Clear, Urine pH 6.0, Ur Specific [place] 1.010, Urine Protein 100 H, Urine Glucose (UA) Normal, Urine Ketones Negative, Urine Occult Blood 25 H, Urine Nitrite Negative, Urine Bilirubin Negative, Urine Urobilinogen Normal, Ur Leukocyte Esterase Negative, Urine RBC 0 SEEN, Urine WBC 0 SEEN, Ur Squamous Epith Cells 0 SEEN, Urine Bacteria 0 SEEN, Urine Mucus 0 SEEN 01/01/22 18:15: Sodium 142, Potassium 5.0, Chloride 110 H, Carbon Dioxide 28.0, Anion Gap 4 L, BUN 27 H, Creatinine 1.51 H, Estim Creat Clear Calc 43.10, Est GFR (MDRD) Af Amer 57 L, Est GFR (MDRD) Non-Af 47 L, BUN/Creatinine Ratio 17.9, Glucose 133 H, Calcium 8.7, Total Bilirubin 0.40, AST 36, ALT 28, Alkaline Phosphatase 83, Total Protein 7.1, Albumin 3.5, Globulin 3.6, Albumin/Globulin Ratio 1.0 01/01/22 18:15: Troponin I High Sens 16 01/01/22 18:40: POC Glucose 103 01/01/22 20:56: POC Glucose 130 H Radiology Impression Chest X-Ray 01/01/22 19:23 IMPRESSION: Unfavorable change. CHF with interstitial edema and trace effusions. Electronically Signed: Abdifatah Harper MD ([place]) at 20:05 EDT , Assessment & Plan Assessment/Plan (1) Hypoxia: (2) CHF exacerbation: QUALIFIERS: Heart failure type: systolic Qualified Code(s): I50.23 - Acute on chronic systolic (congestive) heart failure (3) Abdominal pain: QUALIFIERS: Abdominal location: left lower quadrant Qualified Code(s): R10.32 - Left lower quadrant pain PLAN: The patient is an 81 y/o M w/ PMHx: Hypothyroidism, CAD s/p CABG, Hx COVID-19 illness, CKD stage III unclear subtype, Overweight, Chronic anemia/iron deficiency anemia, COPD, Chronic Systolic CHF/Ischemic Cardiomyopathy s/p AICD placement, PAF, Diabetes mellitus type II, HTN, HLD, JOYCE on CPAP, Hx endocarditis, Former tobacco use who presents to the [facility] ED on 01/01/22 with history of onset loose stools over the last 5 to 7 days with associated left lower quadrant discomfort with no nausea or emesis, fever or chills and no noted bright red bloody stools or black appearance with no alteration to his oral intake and no recent antibiotic usage however given not improving prompted ED evaluation with onset while in ED dyspnea, rales, hypoxia. #1. Acute (mild) on Chronic Systolic CHF/ischemic cardiomyopathy w/ associated Acute Hypoxia although likely also related to morphine adminstration: Patient status post AICD placement, 12/08/2020 echocardiogram with normal LV size, moderate concentric LVH, EF 50%, moderately enlarged LA, mild SAEED, PASP 43 mmHg consistent with mild pulmonary hypertension, continue home apixaban, statin, Coreg, not on LAURA inhibitor or ARB. Given Lasix 40 mg IV x 1 with improvement in the ED. Will admit to PCU, maintain on cardiac telemetry, obtain cardiac enzyme series, obtain serial EKGs, continue IV lasix diuresis although if improved upon repeat 01/02/22 evaluation may consider transition back to oral lasix, monitor I/Os, continue medical therapy, obtain TSH and magnesium level, given last ECHO 1 year ago repeat requested. #2. Suspected Acute Sigmoid Diverticulitis: Will defer hydration given #1, monitor I&Os, maintain on clears until improving, treat with zosyn regimen; however, if CT read returns with no obvious diverticulitis will discontinue, maintain on PPI, anti-emetics, pain regimen PRN cautiously given hypoxia associated. Consider diet advancement to clears in AM if clinically improved or if no acute findings on imaging. If any hernia concerning type findings will involve general surgery if appropriate. #3. Hypertension: Continue home regimen including Coreg, amlodipine, IV Lasix with hold parameters as needed, PRN hydralazine. #4. Hyperlipidemia: We will continue patient on statin therapy, FLP in AM. #5. Hypothyroidism: We will continue patient home levothyroxine regimen, FT4/TSH pending. #6. PAF: We will continue patient home Coreg and apixaban regimen. #7. Chronic COPD: We will temporarily hold home inhalers and transition in the interim to ATC duonebs, PRN albuterol, HOB, IS parameters. #8. Diabetes mellitus type II: Not on oral regimen, continue home insulin regimen, given presentation as noted will de-escalate to clears and advance diet as tolerated to ADA diet, accu checks w/ ISS. #9. Chronic Kidney Disease Stage III, unclear subtype: Admission BUN/Cr 27/1.51, baseline renal function 1.3-1.7, repeat BMP in AM. #10. Chronic normocytic anemia/iron deficiency anemia: Admission hemoglobin 11.9, baseline primarily 11-12, stable, trend, continue iron supplementation. #11. Overweight: Encourage diet lifestyle changes. #12. Former tobacco use: Encourage continued tobacco cessation. #13. JOYCE: CPAP nightly. #14. DVT prophylaxis: SCDs, continue patient home apixaban regimen. #15. CODE status: Patient HCPOA is his and his daughter who are both present and living will is currently in place. Discussed CODE status at length including difference between FULL code, DNR-CCA and DNR-CC status. Following discussions about the differences in these status, requested DNR-CCA, no intubation status. Advanced Care Planning Face to Face Time: 16 minutes. Charges/Coding Visit Charges Inpatient E&M: 27248 Init Hosp L3 Procedures Hospitalists Procedures: 58753 Advncd Care Plan 30 Min
[2022-01-01] MEDS: Furosemide 40 MG/4 ML Vial IV (21:38)
[2022-01-01 21:50] LABS: Magnesium 1.7 mg/dL (1.6-2.6)
[2022-01-01 21:55] LABS: Bedside Glucose 143 mg/dL (74-106)
--- NOTE | 2022-01-01 22:09 | ECHOCS_ITS ---
Reason For Study: CHF Procedure This was a 2D Doppler, Color Flow transthoracic echocardiogram. Contrast injection was performed. Exam performed portable in patient room. Left Ventricle Normal LV size. Moderate concentric left ventricular hypertrophy. The estimated ejection fraction is 40 %. Stage 1 diastolic dysfunction. Septal motion consistent with IVCD. Right Ventricle Normal RV size. Normal systolic function. Atria The left atrium is mildly enlarged. Normal right atrium. Mitral Valve Bileaflet diffuse mitral valve thickening. Mild (1+) eccentric mitral valve insufficiency. Tricuspid Valve Normal tricuspid valve. Mild tricuspid valve insufficiency. Pulmonary artery systolic pressure is 38 mmHg. Aortic Valve Trisinus/trileaflet aortic valve. Mild focal aortic valve calcification. Pulmonic Valve Normal pulmonic valve. Great Vessels Normal aortic root. The pulmonary artery is normal size. Normal inferior vena cava. Pericardium/Pleural No pericardial effusion. Medication Diluted definity 2ml given slow IV push to enhance endocardial definition. MMode/2D Measurements & Calculations LVIDd: 4.9 cm IVSd: 1.6 cm Ao root diam: 3.2 cm LVIDs: 4.0 cm LVPWd: 1.5 cm RVDd: 3.9 cm FS: 18.3 % LAV(MOD-bp): 82.4 ml LVAd ap4: 33.7 cm2 SV(MOD-sp4): 57.3 ml LAV(MOD-bp) Indexed: 37.2 ml/m2 LVLd ap4: 7.8 cm LAV(MOD-sp2): 85.8 ml EDV(MOD-sp4): 117.9 ml LAV(MOD-sp4): 76.8 ml EDV(sp4-el): 123.3 ml LVAs ap4: 23.0 cm2 LVLs ap4: 7.5 cm ESV(MOD-sp4): 60.6 ml ESV(sp4-el): 60.0 ml EF(MOD-sp4): 48.6 % EF(sp4-el): 51.4 % SV(sp4-el): 63.4 ml LA A4 area: 24.3 cm2 LA dimension(2D): 5.2 cm RA A4 area: 19.6 cm2 Doppler Measurements & Calculations MV E max yunier: 60.0 cm/sec Lat Peak E' Yunier: 6.3 cm/sec Med Peak E' Yunier: 4.1 cm/sec MV A max yunier: 83.1 cm/sec E/E' lat: 9.5 E/E' med: 14.5 MV E/A: 0.72 Ao V2 max: 156.6 cm/sec LV V1 max: 113.0 cm/sec PA V2 max: 111.7 cm/sec Ao max P.8 mmHg LV V1 max P.1 mmHg Ao V2 mean: 112.9 cm/sec Ao mean P.5 mmHg Ao V2 VTI: 31.0 cm PI end-d yunier: 131.9 cm/sec TR max yunier: 291.3 cm/sec TR max P.0 mmHg ECHO/Echo Complete W/ Contrast Interpretation Summary Normal LV size. Moderate concentric left ventricular hypertrophy. The estimated ejection fraction is 40 %. Stage 1 diastolic dysfunction. Septal motion consistent with IVCD. Pulmonary artery systolic pressure is 38 mmHg. Contrast injection was performed. Ordering Physician: Kalpana Elam Referring Physician: Corin Hernandez Performed By: Lynnette Rosado, ALEXX, RVT
[2022-01-01] MEDS: Ipratropium/Albuterol Sulfate 3 ML AMPUL.NEB INHALATION (22:55)
[2022-01-01 23:00] LABS: Troponin-I HS 38 pg/mL (3.0-78.0)
[2022-01-01 23:41] LABS: Bedside Glucose 193 mg/dL (74-106)
[2022-01-01] MEDS: Carvedilol 25 MG Tablet PO (23:44)
[2022-01-01] MEDS: Pantoprazole Sodium 20 MG Tablet PO (23:45)
[2022-01-01] MEDS: amLODIPine 5 MG Tablet PO (23:45)
[2022-01-01] MEDS: Atorvastatin Calcium 10 MG Tablet PO (23:45)
[2022-01-01] MEDS: APIXABAN 2.5 MG TABLET PO (23:45)
[2022-01-01] MEDS: Insulin Glargine-YFGN 100 UNIT/ML Pen 12 UNIT SC (23:57)
[2022-01-01] MEDS: Insulin Lispro 100 UNIT/ML INSULN.PEN SC (23:57)
[2022-01-01] MEDS: Morphine 2 MG/ML Syringe IV (23:58)
[2022-01-02] VITALS (17 sets, daily range): BP systolic 110–156; BP diastolic 53–84; PULSE 56–157; RESP 14–16; TEMP 36.3–36.8; O2SAT 93–98
[2022-01-02 00:28] LABS: Troponin-I HS 38 pg/mL (3.0-78.0)
[2022-01-02 04:14] LABS: Absolute Lymphocyte Count 0.84 X10^3/uL (0.83-4.51); Basophil# 0.04 X10^3/uL; Basophil% 0.4 % (0-1); Eosinophil# 0.09 X10^3/uL; Eosinophils% 0.9 % (0-5); Hematocrit 41.9 % (40-54); Hemoglobin 12.5 g/dL (13.0-16.5); Lymphocyte # 0.84 X10^3/ul (0.83-4.51); Lymphocyte % 8.7 % (19-41); Mean Corp Hgb Conc 29.8 g/dL (32-36); Mean Corpuscular Volume 100.7 fL (80-94); Mean Platelet Vol. 10.6 fl (6.2-12.0); Monocyte# 0.68 X10^3/uL; NRBC Flagged by Analyzer 0 % (0-5); Neutrophil # 8.01 X10^3/uL (2.7-7.7); Neutrophil % 82.6 % (47-70); POSITIVE COUNT YES; Platelet Count 149 K/mm3 (150-450); RBC Distribution Width CV 14.8 % (11.6-14.6); RBC Distribution Width SD 53.9 fl (35.1-43.9); Red Blood Count 4.16 M/mm3 (4.6-6.2); White Blood Count 9.7 K/mm3 (4.4-11.0)
[2022-01-02 04:23] LABS: Differential Indicated SCAN CRITERIA MET
[2022-01-02 04:41] LABS: Differential Comment SCANNED
[2022-01-02] MEDS: Morphine 2 MG/ML Syringe IV (06:08)
[2022-01-02] MEDS: Levothyroxine 100 MCG Tablet PO (06:16)
[2022-01-02] MEDS: Ipratropium/Albuterol Sulfate 3 ML AMPUL.NEB INHALATION ×3 (06:47→19:17)
[2022-01-02 07:05] LABS: Bedside Glucose 134 mg/dL (74-106)
[2022-01-02 07:24] LABS: AST(SGOT) 58 U/L (15-37); Alanine Aminotransfer ALT/SGPT 56 U/L (16-61); Albumin, Serum 3.3 g/dL (3.2-5.0); Alkaline Phosphatase 88 U/L (45-117); Anion Gap 7 (5-15); BUN 27 mg/dL (7-18); BUN/Creat Ratio 14.4 RATIO (10-20); Calcium,Total 8.6 mg/dL (8.5-10.1); Chloride 107 mmol/L (98-107); Cholesterol 133 mg/dL (200); Creatinine, Serum 1.88 mg/dL (0.70-1.30); EST Glomerular Filtration Rate 37 mL/min (>60); Est Glom Filt Rate - Afr Amer 44 mL/min (>60); Estimated Creatinine Clearance 33.65 ml/min; Globulin 3.4 g/dL (2.2-4.2); Glucose 153 mg/dL (74-106); High Density Lipoprotein 76 mg/dL; Potassium 4.2 mmol/L (3.5-5.1); Protein, Total 6.7 g/dL (6.4-8.2); Sodium Level 143 mmol/L (136-145); T4 Free Direct 1.19 ng/dL (0.76-1.46); Thyroid Stim Hormone (TSH) 4.22 uIU/mL (0.358-3.74); Triglycerides 76 mg/dL; Troponin-I HS 33 pg/mL (3.0-78.0); Very Low Density Lipoprotein 15 mg/dL (5-40)
[2022-01-02 08:12] LABS: Magnesium 1.7 mg/dL (1.6-2.6)
[2022-01-02] MEDS: Furosemide 20 MG/2 ML VIAL IV ×2 (08:17→17:16)
[2022-01-02] MEDS: Ferrous Gluconate 324 MG Tablet PO ×2 (08:17→17:16)
[2022-01-02] MEDS: Magnesium Chloride 64 MG Delay Rel.Tablet 128 MG PO (08:17)
[2022-01-02] MEDS: APIXABAN 2.5 MG TABLET PO ×2 (08:17→22:00)
[2022-01-02] MEDS: Carvedilol 25 MG Tablet PO ×2 (08:17→22:00)
[2022-01-02] MEDS: amLODIPine 5 MG Tablet PO ×2 (08:17→22:01)
[2022-01-02] MEDS: Pantoprazole Sodium 20 MG Tablet PO ×2 (08:17→22:01)
[2022-01-02] MEDS: Insulin Lispro 100 UNIT/ML INSULN.PEN 12 UNIT SC (08:22)
[2022-01-02 08:31] LABS: Bedside Glucose 146 mg/dL (74-106)
--- NOTE | 2022-01-02 11:10 | CASEMGMT ---
STEFANO GUSTAFSON assessment: Face to Face with patient for initial transition planning/care coordination assessment. STEFANO GUSTAFSON introduced self and role at [facility], pt voices understanding and consents to assessment. Pt is sitting up in chair in no distress on 2L nc. Pt is A/Ox4 and answers all questions appropriately, but falls asleep easily. Pt's at bedside during assessment and assists with answering questions. Care providers, pharmacy, and demographics verified. Presentation: Pt w/ left sided abd pain and diarrhea x1 week Admitting dx: CHF exac, diverticulitis PCP: David/Aggie at [facility] Specialists: Lambert, cardio; Barak [facility] nephro; Elissa, pulm; Barbara, endo; JUSTIN Lowe eye; Sara, eye Preferred [facility]acy: [facility] Insurance: [employer] A/B, [employer] Prescription Benefit: [employer], Noom Living Will/HPOA: Pt has LW/HPOA and is aware that they are on file at [facility]. Pt states his , Galina Alegria, is HPOA. LNOK: Galina Alegria, /HPOA; Yesica Mcgee, daughter Living Arrangements: [facility] and states no concerns at home. Pt is mostly independent with ADL's. Transportation: Pt drives self but does most of driving and states no transportation concerns. DME/HHC: Pt has canes, grab bars, and cpap thru [employer] and declines need for any further DME. Pt also has specialized brace for arm. Pt states has hx of HHC but hias not been to SNF in the past. Pt states no concerns with going home at time of discharge. Pt is retired. Pt does not smoke cigarettes or drink ETOH. Pt states no further concerns/needs. CM to follow for home oxygen need and any further discharge planning/needs. Advised pt to ask for CM if any further questions/concerns/needs arise, voices understanding. Pt Goal: Home Plan[place] STEFANO GUSTAFSON
[2022-01-02 11:36] LABS: Bedside Glucose 68 mg/dL (74-106)
[2022-01-02] MEDS: oxyCODONE 5 MG Tablet PO (12:15)
--- NOTE | 2022-01-02 12:39 | PCM.PN.HOSP ---
Documented by User: Jessica Ramirez NP, PRODUCT COMMUNICATIONS MANAGER-C 01/02/22 13:00 Subjective Subjective Patient seen and examined. Reports ongoing left lower abdominal pain. Denies fever, chills. No bowel movement since admission. Denies nausea, vomiting. Denies shortness of breath. Objective Data Objective Data Vital Signs: Vital Signs Temp Pulse Resp BP Pulse Ox 98.1 F 73 16 110/53 L 98 01/02/22 12:13 01/02/22 12:13 01/02/22 12:13 01/02/22 12:13 01/02/22 12:13 Oxygen Flow Rate (L/min) 2 Oxygen Delivery Method Nasal Cannula Weight: 207 lb 14.334 oz Body Mass Index (BMI) 27.4 Intake & Output: Intake and Output for Last 24 Hours 12/31/21 01/01/22 01/02/22 23:59 23:59 23:59 Intake Total 550 / 710 1050 / 1050 Output Total 50 / 50 Balance 550 / 710 1000 / 1000 Lab / Micro Data Result Diagrams: 01/02/22 04:05 01/02/22 06:55 Labs: Laboratory Results - last 24 hr 01/01/22 17:23: WBC 11.0, RBC 3.98 L, Hgb 11.9 L, Hct 37.3 L, MCV 93.7, MCH 29.9, MCHC 31.9 L, RDW Std Deviation 49.3 H, RDW Coeff of [place] 14.6, Plt Count 199, MPV 10.2, Immature Gran % (Auto) 0.400, Neut % (Auto) 78.9 H, Lymph % (Auto) 11.0 L, [place] % (Auto) 7.6, Eos % (Auto) 1.8, Baso % (Auto) 0.3, Absolute Neuts (auto) 8.7 H, Absolute Lymphs (auto) 1.21, Nucleated RBC % 0 01/01/22 17:23: Sodium Cancelled, Potassium Cancelled, Chloride Cancelled, Carbon Dioxide Cancelled, Anion Gap Cancelled, BUN Cancelled, Creatinine Cancelled, Estim Creat Clear Calc Cancelled, Est GFR (MDRD) Af Amer Cancelled, Est GFR (MDRD) Non-Af Cancelled, BUN/Creatinine Ratio Cancelled, Glucose Cancelled, Calcium Cancelled, Total Bilirubin Cancelled, AST Cancelled, ALT Cancelled, Alkaline Phosphatase Cancelled, Total Protein Cancelled, Albumin Cancelled, Globulin Cancelled, Albumin/Globulin Ratio Cancelled 01/01/22 17:25: B-Natriuretic Peptide 193.7 H 01/01/22 17:33: POC Glucose 136 H 01/01/22 17:45: Urine Color Yellow, Urine Clarity Clear, Urine pH 6.0, Ur Specific [place] 1.010, Urine Protein 100 H, Urine Glucose (UA) Normal, Urine Ketones Negative, Urine Occult Blood 25 H, Urine Nitrite Negative, Urine Bilirubin Negative, Urine Urobilinogen Normal, Ur Leukocyte Esterase Negative, Urine RBC 0 SEEN, Urine WBC 0 SEEN, Ur Squamous Epith Cells 0 SEEN, Urine Bacteria 0 SEEN, Urine Mucus 0 SEEN 01/01/22 18:15: Sodium 142, Potassium 5.0, Chloride 110 H, Carbon Dioxide 28.0, Anion Gap 4 L, BUN 27 H, Creatinine 1.51 H, Estim Creat Clear Calc 43.10, Est GFR (MDRD) Af Amer 57 L, Est GFR (MDRD) Non-Af 47 L, BUN/Creatinine Ratio 17.9, Glucose 133 H, Calcium 8.7, Total Bilirubin 0.40, AST 36, ALT 28, Alkaline Phosphatase 83, Total Protein 7.1, Albumin 3.5, Globulin 3.6, Albumin/Globulin Ratio 1.0 01/01/22 18:15: Troponin I High Sens 16 01/01/22 18:15: Magnesium 1.7 01/01/22 18:40: POC Glucose 103 01/01/22 20:56: POC Glucose 130 H 01/01/22 21:51: POC Glucose 143 H 01/01/22 22:30: Troponin I High Sens 38 01/01/22 23:35: POC Glucose 193 H 01/02/22 00:00: Troponin I High Sens 38 01/02/22 04:05: WBC 9.7, RBC 4.16 L, Hgb 12.5 L, Hct 41.9, MCV 100.7 H D, MCH 30.0, MCHC 29.8 L D, RDW Std Deviation 53.9 H, RDW Coeff of [place] 14.8 H, Plt Count 149 L, MPV 10.6, Immature Gran % (Auto) 0.400, Neut % (Auto) 82.6 H, Lymph % (Auto) 8.7 L, [place] % (Auto) 7.0, Eos % (Auto) 0.9, Baso % (Auto) 0.4, Absolute Neuts (auto) 8.0 H, Absolute Lymphs (auto) 0.84, Nucleated RBC % 0, Differential Comment SCANNED 01/02/22 04:05: Sodium Cancelled, Potassium Cancelled, Chloride Cancelled, Carbon Dioxide Cancelled, Anion Gap Cancelled, BUN Cancelled, Creatinine Cancelled, Estim Creat Clear Calc Cancelled, Est GFR (MDRD) Af Amer Cancelled, Est GFR (MDRD) Non-Af Cancelled, BUN/Creatinine Ratio Cancelled, Glucose Cancelled, Calcium Cancelled, Total Bilirubin Cancelled, AST Cancelled, ALT Cancelled, Alkaline Phosphatase Cancelled, Troponin I High Sens Cancelled, Total Protein Cancelled, Albumin Cancelled, Globulin Cancelled, Albumin/Globulin Ratio Cancelled, Triglycerides Cancelled, Cholesterol Cancelled, LDL Cholesterol Cancelled, VLDL Cholesterol Cancelled, HDL Cholesterol Cancelled, TSH Cancelled, Free T4 Cancelled 01/02/22 05:50: Sodium Cancelled, Potassium Cancelled, Chloride Cancelled, Carbon Dioxide Cancelled, Anion Gap Cancelled, BUN Cancelled, Creatinine Cancelled, Estim Creat Clear Calc Cancelled, Est GFR (MDRD) Af Amer Cancelled, Est GFR (MDRD) Non-Af Cancelled, BUN/Creatinine Ratio Cancelled, Glucose Cancelled, Calcium Cancelled, Total Bilirubin Cancelled, AST Cancelled, ALT Cancelled, Alkaline Phosphatase Cancelled, Troponin I High Sens Cancelled, Total Protein Cancelled, Albumin Cancelled, Globulin Cancelled, Albumin/Globulin Ratio Cancelled, Triglycerides Cancelled, Cholesterol Cancelled, LDL Cholesterol Cancelled, VLDL Cholesterol Cancelled, HDL Cholesterol Cancelled, TSH Cancelled, Free T4 Cancelled 01/02/22 06:25: POC Glucose 134 H 01/02/22 06:55: Sodium 143, Potassium 4.2, Chloride 107, Carbon Dioxide 29.0, Anion Gap 7, BUN 27 H, Creatinine 1.88 H, Estim Creat Clear Calc 33.65, Est GFR (MDRD) Af Amer 44 L, Est GFR (MDRD) Non-Af 37 L, BUN/Creatinine Ratio 14.4, Glucose 153 H, Calcium 8.6, Total Bilirubin 0.60, AST 58 H, ALT 56, Alkaline Phosphatase 88, Troponin I High Sens 33, Total Protein 6.7, Albumin 3.3, Globulin 3.4, Albumin/Globulin Ratio 1.0, Triglycerides 76, Cholesterol 133, LDL Cholesterol 42, VLDL Cholesterol 15, HDL Cholesterol 76, TSH 4.22 H, Free T4 1.19 01/02/22 06:55: Magnesium 1.7 01/02/22 08:07: POC Glucose 146 H 01/02/22 11:24: POC Glucose 68 L Radiography Diagnostic Testing: Radiology Impression Abdomen/Pelvis CT 01/01/22 16:46 IMPRESSION: 1. Descending colon diverticulitis. No abscess or pneumoperitoneum. 2. Small bilateral pleural effusions. 3. Chronic changes, as above. Electronically Signed: Abdifatah Harper MD ([place]) at 21:04 EDT , Chest X-Ray 01/01/22 19:23 IMPRESSION: Unfavorable change. CHF with interstitial edema and trace effusions. Electronically Signed: Abdifatah Harper MD ([place]) at 20:05 EDT , Physical Exam Const alert, oriented x3 and no apparent distress Orientation / Consciousness: awake, oriented to person, oriented to place and oriented to time HEENT normocephalic Mouth: dry mucous membranes Eyes PERRL, EOMs intact bilaterally and conjunctivae normal Neck no lymphadenopathy Resp clear to auscultation bilaterally Auscultation: diminished lung sounds Cardio regular rate, regular rhythm and no murmurs Peripheral Pulses: pulses 2+ throughout GI normal to inspection, nondistended, normoactive bowel sounds and non-distended GI Narrative: Left lower quadrant tenderness Extremity normal to inspection Extremity Narrative: 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 Skin no rashes or lesions noted Lesions: no lesions Rashes: no rashes Trauma: no lacerations or abrasions Neuro CN's II-XII intact bilaterally, no focal motor deficits, no sensory deficits noted and deep tendon reflexes 2+ bilaterally Psych mental status grossly normal and affect normal Assessment & Plan Assessment/Plan (1) Abdominal pain: QUALIFIERS: Abdominal location: left lower quadrant Qualified Code(s): R10.32 - Left lower quadrant pain PLAN: 1. Acute descending colon diverticulitis-CT without abscess. IV Zosyn. Clear liquid diet. As needed pain regimen. 2. Acute hypoxia secondary to mild acute on chronic heart failure with reduced ejection fraction/ischemic cardiomyopathy-BNP mildly elevated. Chest x-ray on admission with interstitial edema. On 2 L nasal cannula. Ween oxygen as tolerated. Echocardiogram 12/08/2020 demonstrated an EF of 50%, mild aortic valve insufficiency, pulmonary artery systolic pressure 43 mmHg. IV Lasix. Strict I&O. Daily weight. 3. Hypertension-stable, continue current regimen. 4. Hyperlipidemia-continue statin. 5. Hypothyroidism-continue Synthroid. 6. Paroxysmal atrial fibrillation-on Eliquis, carvedilol. 7. Chronic COPD-as needed albuterol aerosol. 8. Type 2 diabetes ngaotenm-Cnrp-Weund with sliding scale insulin. Continue home insulin regimen. 9. Chronic kidney disease stage IIIa-stable, trend BMP. 10. Chronic normocytic anemia/iron deficiency anemia- appears stable. 11. Former tobacco use-encouraged continued cessation. 12. JOYCE-on CPAP nightly. DVT prophylaxis- Eliquis This patient was seen by CORINNE Rojo under the supervision of Dr. Razo. Time spent examining patient, reviewing data and subsequent management of care: 14 minutes Documented by User: Dr. Heidi Razo MD 01/02/22 15:02 Objective Data Lab / Micro Data Result Diagrams: 01/02/22 04:05 01/02/22 06:55 Charges/Coding Addendum Addendum: This patient was seen in conjunction with COY Lopez. I have independently interviewed and examined the patient and reviewed pertinent historical, laboratory, and other data. I have reviewed her note and concur with her documentation 81-year-old male with past medical history of CAD status post CABG, heart failure with reduced EF, cardiomyopathy, EF of 50% who comes in with a left lower quadrant pain as well as shortness of breath, that happened in the ED. He is tolerating clear liquid diet. Physical Exam: Gen: Comfortable, not pale, not jaundiced CVS:HS I +II, regular, no murmurs RESP: Diminished at lung bases GI: BS present and normal, soft, nontender, no palpable organs EXT:No edema ASSESSMENT: 1. Acute diverticulitis 2. Acute hypoxia 3. Acute on chronic heart failure with reduced EF/ischemic cardiomyopathy 4. Hypertension 5. Hyperlipidemia 6. Hypothyroidism 7. PAF 8. COPD 9. Type 2DM 10. CKD stage IIIa 11. Anemia, mixed 12. JOYCE on CPAP Plan: Continue on IV Zosyn, IV lasix Encourage use of incentive spirometer Wean off oxygen Time spent coordinating all aspects of patient's care, discussing with nursin minutes Visit Charges Inpatient E&M: 99984 Subs Hosp L2
[2022-01-02 13:00] LABS: Bedside Glucose 76 mg/dL (74-106)
[2022-01-02 17:15] LABS: Bedside Glucose 127 mg/dL (74-106)
[2022-01-02] MEDS: Acetaminophen 325 MG Tablet 650 MG PO (17:16)
[2022-01-02] MEDS: Insulin Glargine-YFGN 100 UNIT/ML Pen 12 UNIT SC (21:59)
[2022-01-02] MEDS: Insulin Lispro 100 UNIT/ML INSULN.PEN SC (22:00)
[2022-01-02] MEDS: Atorvastatin Calcium 10 MG Tablet PO (22:01)
[2022-01-02 22:16] LABS: Bedside Glucose 153 mg/dL (74-106)
[2022-01-03] VITALS (14 sets, daily range): BP systolic 112–157; BP diastolic 50–64; PULSE 72–95; RESP 15–18; TEMP 36.4–36.8; O2SAT 93–97
[2022-01-03 05:35] LABS: Absolute Lymphocyte Count 1.23 X10^3/uL (0.83-4.51); Basophil# 0.03 X10^3/uL; Basophil% 0.4 % (0-1); Eosinophil# 0.17 X10^3/uL; Eosinophils% 2.1 % (0-5); Hematocrit 32.7 % (40-54); Hemoglobin 10.5 g/dL (13.0-16.5); Lymphocyte # 1.23 X10^3/ul (0.83-4.51); Lymphocyte % 15.1 % (19-41); Mean Corp Hgb Conc 32.1 g/dL (32-36); Mean Corpuscular Hgb 29.8 pg (27.0-32.0); Mean Corpuscular Volume 92.9 fL (80-94); Mean Platelet Vol. 9.7 fl (6.2-12.0); Monocyte# 0.74 X10^3/uL; Monocyte% 9.1 % (0-10); NRBC Flagged by Analyzer 0 % (0-5); Neutrophil # 5.98 X10^3/uL (2.7-7.7); Neutrophil % 73.1 % (47-70); Platelet Count 165 K/mm3 (150-450); Red Blood Count 3.52 M/mm3 (4.6-6.2); White Blood Count 8.2 K/mm3 (4.4-11.0)
[2022-01-03 06:14] LABS: Anion Gap 6 (5-15); BUN 32 mg/dL (7-18); BUN/Creat Ratio 13.3 RATIO (10-20); Calcium,Total 7.7 mg/dL (8.5-10.1); Chloride 107 mmol/L (98-107); EST Glomerular Filtration Rate 28 mL/min (>60); Est Glom Filt Rate - Afr Amer 33 mL/min (>60); Estimated Creatinine Clearance 26.36 ml/min; Glucose 112 mg/dL (74-106); Potassium 3.6 mmol/L (3.5-5.1); Sodium Level 142 mmol/L (136-145)
[2022-01-03] MEDS: Acetaminophen 325 MG Tablet 650 MG PO (06:27)
[2022-01-03] MEDS: Levothyroxine 100 MCG Tablet PO (06:27)
[2022-01-03 07:06] LABS: Bedside Glucose 113 mg/dL (74-106)
[2022-01-03] MEDS: Ipratropium/Albuterol Sulfate 3 ML AMPUL.NEB INHALATION ×3 (07:27→19:30)
[2022-01-03] MEDS: Magnesium Chloride 64 MG Delay Rel.Tablet 128 MG PO (08:46)
[2022-01-03] MEDS: APIXABAN 2.5 MG TABLET PO ×2 (08:46→21:48)
[2022-01-03] MEDS: Pantoprazole Sodium 20 MG Tablet PO ×2 (08:46→21:48)
[2022-01-03] MEDS: amLODIPine 5 MG Tablet PO (08:46)
[2022-01-03] MEDS: Ferrous Gluconate 324 MG Tablet PO ×2 (08:46→16:06)
[2022-01-03] MEDS: Carvedilol 25 MG Tablet PO ×2 (08:46→21:48)
[2022-01-03] MEDS: guaiFENesin 10 ML UDC (200MG/10ML) PO ×2 (11:34→16:11)
[2022-01-03] MEDS: Fluticasone 0.05% 1 SPRAY NASAL.SRY 2 SPRAY NASAL (11:35)
--- NOTE | 2022-01-03 11:37 | PCM.CONS.R ---
Assessment & Plan Assessment/Plan (1) Diverticulitis: (2) SILKE (acute kidney injury): (3) CKD (chronic kidney disease) stage 3, GFR 30-59 ml/min: PLAN: We were consulted for SILKE. Patient was admitted for acute diverticulitis, without abscess. He is receiving IV antibiotics, Zosyn. Patient has a known history of chronic kidney disease stage III with baseline creatinine ranging around 1.4 to 1.7 mg/dL, baseline estimated GFR ranging 40 to 50 mL/min. He is followed by engineering faculty member in [place]. On admission, 01/01/2022 creatinine 1.51 mg/dL, on 01/02 creatinine 1.88 mg/dL and today creatinine is up to 2.40 mg/dL. Chest x-ray on admission did show interstitial edema with trace effusions and therefore he was getting lasix 20mg IV BID. Patient does not appear to be volume overloaded. Recommend to continue holding Lasix as you are doing, it was stopped today. Patient and fearful of patient going into fluid overload/CHF should we give small IV fluid trial. Diet was advanced to full liquid today. Encouraged patient to increase solute and fluid intake as best as he can. Labs have been ordered for the morning. SILKE possibly from contrast exposure, volume depletion and overdiuresis. Bps on low side possibly contributing to SILKE. At this time there is no acute indication for SENIOR TAX ANALYST, potassium and acid-base acceptable volume status acceptable and patient is urinating. Bps are on low side, he in on norvasc and coreg. We will hold norvasc for now to allow for better renal perfusion. Further orders forthcoming as hospitalization evolves. Thank you for allowing us participate in the care of Mr. Storey. HPI Consult Data Date of Consult: 01/03/22 HPI Narrative HPI Narrative: RACHNA MAYES, is a 81 M who presented emergency room on 01/02/2020 with complaints of left lower quadrant abdominal pain and loose stools, work-up in ER included CT of abdomen and pelvis with IV contrast which showed descending colon diverticulitis, no abscess. Patient was admitted for further evaluation and treatment. He was started on IV antibiotics. We were consulted for elevated creatinine. Patient and his report that patient is followed by engineering faculty member at [facility], Dr. Cancino. He has history of CKD stage III. Baseline creatinine ranging around 1.4 to 1.7 mg/dL, baseline EGFR ranging around 40 to 50 mL/min. Patient denies any nausea or vomiting. States had bowel movement today. He is being started on full liquid diet today. Does not take NSAIDs at home. [facility] Medical History (Updated 01/03/22 @ 11:42 by CORINNE Grant) 65 years of age or older Anemia Atherosclerotic heart disease of [place] coronary artery without angina pectoris Atrial fibrillation Bacterial endocarditis Bilateral carotid bruits Cardiac arrest with ventricular fibrillation (06/2015) Cardiology follow-up encounter Carotid stenosis, left Chronic kidney disease (CKD) Chronic systolic (congestive) heart failure Congestive heart failure (CHF) COPD (chronic obstructive pulmonary disease) COVID-19 (06/01/21) CPAP (continuous positive airway pressure) dependence Dark stools Diabetes Dietary restriction Dizziness Elevated LFTs Essential (primary) hypertension Former smoker History of acute bacterial endocarditis History of echocardiogram History of stress test HLD (hyperlipidemia) Hypokalemia Hypothyroidism ICD (implantable cardioverter-defibrillator) in place Infection and inflammatory reaction due to other cardiac and vascular devices, implants and grafts, initial encounter Infectious endocarditis Insulin dependent diabetes mellitus Iron deficiency Irregular heart beat Ischemic cardiomyopathy Kidney disease Kidney stones Left bundle branch block Malignant pericardial effusion Night sweats Nonrheumatic mitral (valve) prolapse Paroxysmal atrial fibrillation Postoperative atrial fibrillation Primary idiopathic hypertrophic cardiomyopathy Thalamic mass Type II diabetes mellitus Wears dentures Wears glasses Wears hearing aid Home Medications budesonide-formoterol 2 puff INHALATION DAILY 05/20/18 [History Last Taken 03/20/20 19:00 2 puff] cholecalciferol (vitamin D3) 1,000 unit PO BID 05/20/18 [History Last Taken 03/20/20 19:00 1000 units] ferrous gluconate 325 mg PO BIDCM 05/20/18 [History Last Taken 03/20/20 19:00 325 mg] insulin aspart U-100 12 units SC BREAKFAST 05/20/18 [History Last Taken 03/20/20 08:00 12 units] insulin aspart U-100 12 units SC DINNER 05/20/18 [History Last Taken 03/20/20 18:00 12 units] levothyroxine 100 mcg PO MOTUWETHFRSA 05/20/18 [History Last Taken 04/06/21] levothyroxine 200 mcg PO JARVIS 05/20/18 [History Last Taken 03/20/20 06:00 200 mcg] multivitamin 1 each PO DAILY 05/20/18 [History Last Taken 03/20/20 08:00 1 each] omega-3 fatty acids-fish oil 1 each PO DAILY 05/20/18 [History Last Taken 03/20/20 08:00 1 each] tiotropium bromide 18 mcg IH BID 05/20/18 [History Last Taken 03/20/20 19:00 18 mcg] apixaban 2.5 mg tablet 2.5 mg PO BID 06/29/20 [History Last Taken Unknown] Handicap Parking Placard #1 ea 08/25/20 [Rx Last Taken Unknown] albuterol sulfate 90 mcg/actuation aerosol inhaler 2 puff INHALATION Q4H PRN #18 gm 11/22/20 [Rx Last Taken Unknown] insulin glargine 12 unit SQ QHS 11/24/20 [History Last Taken Unknown] lactobacillus comb no.10 1 each PO BID 11/24/20 [History Last Taken Unknown] ascorbic acid (vitamin C) 1,000 mg tablet 1,000 mg PO DAILY tab 12/29/20 [History Last Taken Unknown] fluticasone propionate 50 mcg/actuation nasal spray,suspension 2 spray INTRANASAL DAILY 12/29/20 [History Last Taken Unknown] albuterol sulfate 2.5 mg CONTINUOUS NEBULIZATION QHS 01/30/21 [History Last Taken Unknown] atorvastatin 10 mg tablet 10 mg PO QHS #90 tab 06/21/21 [Rx Last Taken Unknown] furosemide 20 mg tablet 20 mg PO DAILY #90 tab 09/23/21 [Rx Last Taken Unknown] amlodipine 5 mg tablet 5 mg PO BID #180 tab 11/28/21 [Rx Last Taken Unknown] carvedilol 25 mg tablet 25 mg PO BID #180 tab 11/28/21 [Rx Last Taken Unknown] magnesium oxide 400 mg PO DAILY cap 12/12/21 [History Last Taken Unknown] Allergy/AdvReac Type Severity Reaction Status Date / Time latex Allergy Other Verified 01/01/22 16:31 LAURA Inhibitors AdvReac Intermediate cough Verified 01/01/22 16:31 enalapril AdvReac Intermediate Shortness Verified 01/01/22 16:31 of breath adhesive tape AdvReac rash Verified 01/01/22 16:31 azithromycin AdvReac Other Verified 05/08/22 16:31 [From Zithromax Z-Robert] levofloxacin [From Levaquin] AdvReac Other Verified 01/01/22 16:31 warfarin [From Coumadin] AdvReac bleeding Verified 01/01/22 16:31 under the skin Family History Father , age 47 from peritonitis Peritonitis Mother , age 93 CVA (cerebral vascular accident) several TIA's Surgical History (Updated 01/01/22 @ 22:27 by Melonie oByle) Abnormal fractional flow reserve (FFR) on cardiac catheterization (02/2017) H/O coronary artery bypass surgery (04/27/17) History of appendectomy History of cardioversion (04/2017) History of implantable cardiac defibrillator (ICD) (01/31/16) History of left heart catheterization History of partial amputation of left hand Hx of bilateral cataract extraction Hx of cholecystectomy Hx of prostatectomy ICD (implantable cardioverter-defibrillator) infection Social History (Updated 01/01/22 @ 21:[address] Kalpana Elam MD) household members: spouse Smoking Status: Former smoker how long ago did patient quit smoking: Quit ~ 50 years prior, prior to quitting up to 4 ppd since 7/10 years old. alcohol intake: never substance use type: does not use caffeine: No what type of physical activity do you participate in: walking frequency: 5-6 times per week duration: 15-30 minutes/day seatbelt use: always do you feel safe at home: Yes ROS ROS Narrative as in HPI and PMH Physical Exam Narrative Const: Alert and oriented x3 HEENT: Head is normocephalic, atraumatic, PERRLA, oral mucosa moist Respiratory: Lung sounds clear anteriorly and posteriorly, no wheezes rhonchi rales noted Cardio: S1-S2, rhythm rate regular Abdomen: Soft, nontender, positive bowel sounds x4 quadrants Extremities: No edema Lab / Micro Data Result Diagrams: 01/03/22 05:15 01/03/22 05:15 Labs: Laboratory Results - last 24 hr 01/02/22 11:59: POC Glucose 76 01/02/22 16:52: POC Glucose 127 H 01/02/22 21:58: POC Glucose 153 H 01/03/22 05:15: WBC 8.2, RBC 3.52 L, Hgb 10.5 L, Hct 32.7 L, MCV 92.9 D, MCH 29.8, MCHC 32.1 D, RDW Std Deviation 51.0 H, RDW Coeff of [place] 15.0 H, Plt Count 165, MPV 9.7, Immature Gran % (Auto) 0.200, Neut % (Auto) 73.1 H, Lymph % (Auto) 15.1 L, [place] % (Auto) 9.1, Eos % (Auto) 2.1, Baso % (Auto) 0.4, Absolute Neuts (auto) 6.0, Absolute Lymphs (auto) 1.23, Nucleated RBC % 0 01/03/22 05:15: Sodium 142, Potassium 3.6, Chloride 107, Carbon Dioxide 29.0, Anion Gap 6, BUN 32 H, Creatinine 2.40 H, Estim Creat Clear Calc 26.36, Est GFR (MDRD) Af Amer 33 L, Est GFR (MDRD) Non-Af 28 L, BUN/Creatinine Ratio 13.3, Glucose 112 H, Calcium 7.7 L 01/03/22 06:34: POC Glucose 113 H Radiology Impression Echocardiogram 01/01/22 22:09 Interpretation Summary Normal LV size. Moderate concentric left ventricular hypertrophy. The estimated ejection fraction is 40 %. Stage 1 diastolic dysfunction. Septal motion consistent with IVCD. Pulmonary artery systolic pressure is 38 mmHg. Contrast injection was performed. Ordering Physician: Kalpana Elam Referring Physician: Corin Hernandez Performed By: Lynnette Rosado, ALEXX, RVT
[2022-01-03] MEDS: Insulin Lispro 100 UNIT/ML INSULN.PEN SC ×2 (11:43→16:06)
--- NOTE | 2022-01-03 13:33 | PN.HOSP_ITS ---
Documented by User: Jessica Ramirez NP, MECHANICAL SYSTEMS ENGINEER-C 01/03/22 13:41 Subjective Subjective Patient seen and examined. Denies further left-sided abdominal pain. Reports post nasal drip and cough. Complains of mild sore throat. Objective Data Objective Data Vital Signs: Vital Signs Temp Pulse Resp BP Pulse Ox 97.6 F L 65 16 113/57 L 96 01/03/22 08:40 01/03/22 13:05 01/03/22 13:05 01/03/22 08:40 01/03/22 08:40 Oxygen Flow Rate (L/min) 2 Oxygen Delivery Method Room Air Weight: 209 lb 10.554 oz Body Mass Index (BMI) 27.4 Intake & Output: Intake and Output for Last 24 Hours 01/01/22 01/02/22 01/03/22 23:59 23:59 23:59 Intake Total 550 / 710 1819 / 2059 1160 / 1160 Output Total 50 / 50 Balance 550 / 710 1769 1160 / 1160 Lab / Micro Data Result Diagrams: 01/03/22 05:15 01/03/22 05:15 Labs: Laboratory Results - last 24 hr 01/02/22 16:52: POC Glucose 127 H 01/02/22 21:58: POC Glucose 153 H 01/03/22 05:15: WBC 8.2, RBC 3.52 L, Hgb 10.5 L, Hct 32.7 L, MCV 92.9 D, MCH 29.8, MCHC 32.1 D, RDW Std Deviation 51.0 H, RDW Coeff of Harrison 15.0 H, Plt Count 165, MPV 9.7, Immature Gran % (Auto) 0.200, Neut % (Auto) 73.1 H, Lymph % (Auto) 15.1 L, Greene % (Auto) 9.1, Eos % (Auto) 2.1, Baso % (Auto) 0.4, Absolute Neuts (auto) 6.0, Absolute Lymphs (auto) 1.23, Nucleated RBC % 0 01/03/22 05:15: Sodium 142, Potassium 3.6, Chloride 107, Carbon Dioxide 29.0, Anion Gap 6, BUN 32 H, Creatinine 2.40 H, Estim Creat Clear Calc 26.36, Est GFR (MDRD) Af Amer 33 L, Est GFR (MDRD) Non-Af 28 L, BUN/Creatinine Ratio 13.3, Glucose 112 H, Calcium 7.7 L 01/03/22 06:34: POC Glucose 113 H Radiography Diagnostic Testing: Radiology Impression Echocardiogram 01/01/22 22:09 Interpretation Summary Normal LV size. Moderate concentric left ventricular hypertrophy. The estimated ejection fraction is 40 %. Stage 1 diastolic dysfunction. Septal motion consistent with IVCD. Pulmonary artery systolic pressure is 38 mmHg. Contrast injection was performed. Ordering Physician: Kalpana Elam Referring Physician: Corin Hernandez Performed By: Lynnette Rosado, ALEXX, RVT Physical Exam Const alert, oriented x3 and no apparent distress Orientation / Consciousness: awake, oriented to person, oriented to place and oriented to time HEENT normocephalic and moist oral mucous membranes Eyes PERRL, EOMs intact bilaterally and conjunctivae normal Neck no lymphadenopathy Resp clear to auscultation bilaterally Auscultation: diminished lung sounds Cardio regular rate, regular rhythm and no murmurs Peripheral Pulses: pulses 2+ throughout GI normal to inspection, nondistended, normoactive bowel sounds, non-tender and non-distended Extremity normal to inspection Extremity Narrative: 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 Skin no rashes or lesions noted Lesions: no lesions Rashes: no rashes Trauma: no lacerations or abrasions Neuro CN's II-XII intact bilaterally, no focal motor deficits, no sensory deficits noted and deep tendon reflexes 2+ bilaterally Psych mental status grossly normal and affect normal Assessment & Plan Assessment/Plan (1) Diverticulitis: PLAN: 1. Acute descending colon diverticulitis-CT without abscess. IV Zo syn. Pain improved. Advance diet as tolerated. 2. Acute hypoxia secondary to mild acute on chronic heart failure with reduced ejection fraction/ischemic cardiomyopathy-BNP mildly elevated. Chest x-ray on admission with interstitial edema. On 2 L nasal cannula. Ween oxygen as tolerated. Echocardiogram 12/08/2020 demonstrated an EF of 50%, mild aortic valve insufficiency, pulmonary artery systolic pressure 43 mmHg. Discontinue further IV Lasix given increasing creatinine. 3. Hypertension-stable, continue current regimen. 4. SILKE on Chronic kidney disease stage IIIa-likely due to diuretic regimen. Nephrology consulted given CKD. Hold Lasix. Trend BMP. 4. PVC/intermittent bigeminy- check mag. Continue beta tiffany. 5. Hyperlipidemia-continue statin. 6. Hypothyroidism-continue Synthroid. 7. Paroxysmal atrial fibrillation-on Eliquis, carvedilol. 8. Chronic COPD-as needed albuterol aerosol. 9. Type 2 diabetes [id number] with sliding scale insulin. Continue home insulin regimen. 10. JOYCE-on CPAP nightly. 11. Chronic normocytic anemia/iron deficiency anemia- appears stable. 12. Former tobacco use-encouraged continued cessation. DVT prophylaxis- Eliquis This patient was seen by CORINNE Rojo under the supervision of Dr. Razo. Time spent examining patient, reviewing data and subsequent management of care: 12 minutes Documented by User: Dr. Heidi Razo MD 01/03/22 15:50 Objective Data Lab / Micro Data Result Diagrams: 01/03/22 05:15 01/03/22 05:15 Charges/Coding Addendum Addendum: This patient was seen in conjunction with COY Lopez. I have independently interviewed and examined the patient and reviewed pertinent historical, laboratory, and other data. I have reviewed her note and concur with her documentation Patient was seen and examined. Had an episode of nausea. Was kept NPO. Diet was slowly advanced. Patient's kidney function has slightly worsened, nephrology consulted. He is saturating well on room air. Physical Exam: Gen: Comfortable, not pale, not jaundiced CVS:HS I +II, regular, no murmurs RESP: Diminished at lung bases GI: BS present and normal, soft, nontender, no palpable organs EXT:No edema ASSESSMENT: 1. Acute diverticulitis 2. Acute hypoxia 3. Acute on chronic heart failure with reduced EF/ischemic cardiomyopathy 4. Hypertension 5. Hyperlipidemia 6. Hypothyroidism 7. PAF 8. COPD 9. Type 2DM 10. SILKE on CKD stage IIIa 11. Anemia, mixed 12. JOYCE on CPAP Plan: Hold IV Lasix, nephrology consult continue on IV Zosyn Encourage use of incentive spirometer Repeat blood work in a.m. Time spent coordinating all aspects of patient's care, discussing with nursin minutes Visit Charges Inpatient E&M: 80699 Subs Hosp L2
[2022-01-03 13:54] LABS: Magnesium 1.8 mg/dL (1.6-2.6)
[2022-01-03 13:56] LABS: Bedside Glucose 158 mg/dL (74-106)
[2022-01-03] MEDS: Insulin Lispro 100 UNIT/ML INSULN.PEN 12 UNIT SC (16:06)
[2022-01-03 16:35] LABS: Bedside Glucose 230 mg/dL (74-106)
[2022-01-03] MEDS: Atorvastatin Calcium 10 MG Tablet PO (21:48)
[2022-01-03] MEDS: Insulin Glargine-YFGN 100 UNIT/ML Pen 12 UNIT SC (21:48)
[2022-01-03] MEDS: 0.9% Saline Lock 10 ML Syringe IV (21:59)
[2022-01-03 23:16] LABS: Bedside Glucose 130 mg/dL (74-106)
[2022-01-04] VITALS (9 sets, daily range): BP systolic 126–132; BP diastolic 56; PULSE 47–89; RESP 14–21; TEMP 36.4–36.6; O2SAT 95–100
[2022-01-04] MEDS: Levothyroxine 100 MCG Tablet PO (05:45)
[2022-01-04] MEDS: 0.9% Saline Lock 10 ML Syringe IV ×2 (05:49→05:54)
[2022-01-04 06:14] LABS: Absolute Neutrophil Count 5.7 X10^3/uL (2.0-7.7); Basophil# 0.03 X10^3/uL; Basophil% 0.4 % (0-1); Eosinophil# 0.25 X10^3/uL; Eosinophils% 3.3 % (0-5); Hematocrit 32.9 % (40-54); Hemoglobin 10.6 g/dL (13.0-16.5); Lymphocyte % 11.9 % (19-41); Mean Corp Hgb Conc 32.2 g/dL (32-36); Mean Corpuscular Hgb 29.9 pg (27.0-32.0); Mean Corpuscular Volume 92.9 fL (80-94); Mean Platelet Vol. 9.7 fl (6.2-12.0); Monocyte# 0.72 X10^3/uL; Monocyte% 9.5 % (0-10); NRBC Flagged by Analyzer 0 % (0-5); Neutrophil # 5.67 X10^3/uL (2.7-7.7); Neutrophil % 74.8 % (47-70); Platelet Count 166 K/mm3 (150-450); RBC Distribution Width CV 14.3 % (11.6-14.6); RBC Distribution Width SD 48.8 fl (35.1-43.9); Red Blood Count 3.54 M/mm3 (4.6-6.2); White Blood Count 7.6 K/mm3 (4.4-11.0)
[2022-01-04] MEDS: Ipratropium/Albuterol Sulfate 3 ML AMPUL.NEB INHALATION (06:34)
[2022-01-04 06:38] LABS: Anion Gap 6 (5-15); BUN 37 mg/dL (7-18); BUN/Creat Ratio 16.6 RATIO (10-20); Calcium,Total 8.5 mg/dL (8.5-10.1); Chloride 106 mmol/L (98-107); Creatinine, Serum 2.23 mg/dL (0.70-1.30); EST Glomerular Filtration Rate 30 mL/min (>60); Est Glom Filt Rate - Afr Amer 36 mL/min (>60); Estimated Creatinine Clearance 28.37 ml/min; Glucose 155 mg/dL (74-106); Potassium 3.6 mmol/L (3.5-5.1); Sodium Level 139 mmol/L (136-145)
[2022-01-04] MEDS: Fluticasone 0.05% 1 SPRAY NASAL.SRY 2 SPRAY NASAL (08:20)
[2022-01-04] MEDS: Ferrous Gluconate 324 MG Tablet PO (08:21)
[2022-01-04] MEDS: Pantoprazole Sodium 20 MG Tablet PO (08:21)
[2022-01-04] MEDS: Carvedilol 25 MG Tablet PO (08:21)
[2022-01-04] MEDS: Magnesium Chloride 64 MG Delay Rel.Tablet 128 MG PO (08:21)
[2022-01-04] MEDS: guaiFENesin 10 ML UDC (200MG/10ML) PO (08:22)
[2022-01-04] MEDS: Insulin Lispro 100 UNIT/ML INSULN.PEN SC ×2 (08:22→11:16)
[2022-01-04] MEDS: Insulin Lispro 100 UNIT/ML INSULN.PEN 12 UNIT SC (08:22)
[2022-01-04] MEDS: APIXABAN 2.5 MG TABLET PO (08:22)
[2022-01-04] MEDS: BENZOCAINE/MENTHOL 1 LOZENGE MUCOUS MEM (08:22)
[2022-01-04 09:06] LABS: Bedside Glucose 152 mg/dL (74-106)
--- NOTE | 2022-01-04 10:27 | DCINST_ITS ---
Discharge Instructions Diet Discharge Diet: Light diet - advance as tolerated, Low fat / Low cholesterol and Carb Control Diet Activity Discharge Activity: Return to Normal Activity Dressing / Incision Call your doctor if you observe: Fever of 101 or Higher, Shortness of breath, Dizziness and Chest pain Follow Up Care Test Results: Test results from this visit will be discussed in further detail at your follow-up appointment, if applicable. Discharge Plan Admission Admit Date/Time: 01/01/22 21:07 Primary Reason for Your Visit: Diverticulitis, mild CHF Attending Provider: Heidi Razo Primary Care Provider: Corin Hernandez Consulting Providers: Kalpana Elam ; Jessica Ramirez [facility]ACT[facility] ; Wendy Goodman Instructions Additional Instructions / Restrictions: Recommend repeat BMP on Sunday at PCP follow-up. Discharge Orders/Prescriptions Prescriptions: New amoxicillin-pot clavulanate [Augmentin] 500-125 mg tablet 1 tab PO BID 7 Days Qty: 14 RF: 0 dextromethorphan polistirex [Robitussin ER] 30 mg/5 mL suspension,extended rel 12 hr 10 ml PO Q12H PRN (Reason: cough) Qty: 89 RF: 0 Continued Eliquis 2.5 mg tablet 2.5 mg PO BID RF: 0 fluticasone propionate [Flonase Allergy Relief] 50 mcg/actuation spray,suspension 2 spray intranasal DAILY RF: 0 multivitamin 1 EACH tablet 1 each PO DAILY RF: 0 levothyroxine 100 MCG tablet 100 mcg PO MOTUWETHFRSA RF: 0 levothyroxine 100 MCG tablet 200 mcg PO JARVIS RF: 0 cholecalciferol (vitamin D3) 1,000 UNIT capsule 1,000 unit PO BID RF: 0 insulin aspart U-100 100 UNITS/ML insulin pen 12 units SC BREAKFAST RF: 0 insulin aspart U-100 100 UNITS/ML insulin pen 12 units SC DINNER RF: 0 tiotropium bromide 18 MCG capsule, w/inhalation device 18 mcg IH BID RF: 0 omega-3 fatty acids-fish oil 1 EACH capsule 1 each PO DAILY RF: 0 budesonide-formoterol 1 INHALER inhaler 2 puff inhalation DAILY RF: 0 ferrous gluconate 325 MG tablet 325 mg PO BIDCM RF: 0 ascorbic acid (vitamin C) 1,000 mg tablet 1,000 mg PO DAILY RF: 0 insulin glargine 100 UNIT/ML solution 12 unit SQ QHS RF: 0 lactobacillus comb no.10 1 EACH capsule 1 each PO BID RF: 0 albuterol sulfate 2.5 mg /3 mL (0.083 %) solution for nebulization 2.5 mg continuous nebulization QHS RF: 0 (DME) Handicap Parking Placard See Rx Instructions .Route .MEDSUPPLY Qty: 1 RF: 0 albuterol sulfate 90 mcg/actuation HFA aerosol inhaler 2 puff INHALATION Q4H PRN (Reason: fill as courtesy until 's office open) Qty: 18 RF: 0 atorvastatin 10 mg tablet 10 mg PO QHS Qty: 90 RF: 3 carvedilol 25 mg tablet 25 mg PO BID Qty: 180 RF: 3 magnesium oxide 400 mg magnesium capsule 400 mg PO DAILY RF: 0 Changed amlodipine 5 mg tablet 2.5 mg PO BID Qty: 180 RF: 3 Held furosemide 20 mg tablet 20 mg PO DAILY Qty: 90 RF: 3 Hold Instructions: Resume on 01/06/22. Referrals / Follow Up: Corin Hernandez MD [Primary Care Provider] - 01/09/22 11:00 am (As scheduled 01/09/22) Disposition Disposition (needs filled in before D/C Order can be placed): Home, Self Care
--- NOTE | 2022-01-04 10:54 | DS.PCM_ITS ---
Documented by User: Jessica Ramirez NP, BROADCAST TRAFFIC COORDINATOR-C 01/04/22 11:01 Providers Date of Admission: 01/01/22 Date of Discharge: 01/04/22 Primary Care Physician: Dr. Corin Hernandez MD Consultations 01/03/22 10:32 Consult: Nephrology Routine Consulting Provider: Wendy Goodman Reason for Consult: SILKE/CKD EMERGENT Consult: No MD Notified: Yes Date Notified: 01/03/22 Time Notified: 10:32 Method of Notification: Verbal Reason For Visit: MILD CHF EXAC, SUSPECTED DIVERTICULITIS Diagnosis Discharge Diagnosis (1) Diverticulitis: Status: Acute Code(s): K57.92 - Diverticulitis of intestine, part unspecified, without perforation or abscess without bleeding Medications at Discharge Home Medications budesonide-formoterol 2 puff INHALATION DAILY 05/20/18 cholecalciferol (vitamin D3) 1,000 unit PO BID 05/20/18 ferrous gluconate 325 mg PO BIDCM 05/20/18 insulin aspart U-100 12 units SC BREAKFAST 05/20/18 insulin aspart U-100 12 units SC DINNER 05/20/18 levothyroxine 100 mcg PO MOTUWETHFRSA 05/20/18 levothyroxine 200 mcg PO JARVIS 05/20/18 multivitamin 1 each PO DAILY 05/20/18 omega-3 fatty acids-fish oil 1 each PO DAILY 05/20/18 tiotropium bromide 18 mcg IH BID 05/20/18 apixaban 2.5 mg tablet 2.5 mg PO BID 06/29/20 Handicap Parking Placard #1 ea 08/25/20 albuterol sulfate 90 mcg/actuation aerosol inhaler 2 puff INHALATION Q4H PRN #18 gm 11/22/20 insulin glargine 12 unit SQ QHS 11/24/20 lactobacillus comb no.10 1 each PO BID 11/24/20 ascorbic acid (vitamin C) 1,000 mg tablet 1,000 mg PO DAILY tab 12/29/20 fluticasone propionate 50 mcg/actuation nasal spray,suspension 2 spray INTRANASAL DAILY 12/29/20 albuterol sulfate 2.5 mg CONTINUOUS NEBULIZATION QHS 01/30/21 atorvastatin 10 mg tablet 10 mg PO QHS #90 tab 06/21/21 furosemide 20 mg tablet 20 mg PO DAILY #90 tab 09/23/21 carvedilol 25 mg tablet 25 mg PO BID #180 tab 11/28/21 magnesium oxide 400 mg PO DAILY cap 12/12/21 amlodipine 2.5 mg PO BID #180 tab 01/04/22 amoxicillin-pot clavulanate [Augmentin] 1 tab PO BID 7 Days #14 tab 01/04/22 dextromethorphan polistirex [Robitussin ER] 10 ml PO Q12H PRN #89 ml 01/04/22 Hospital Course Operations None Procedures 2-D Echocardiogram Summary of Care Provided Hospital Course: Patient is an 81-year-old male admitted 01/01/2022 due to abdominal pain. 1. Acute descending colon diverticulitis-CT without abscess. IV Zosyn during admission, transition to Augmentin to complete course at discharge. Continue diet as tolerated. Follow-up with PCP as scheduled. 2. Acute hypoxia secondary to mild acute on chronic heart failure with reduced ejection fraction/ischemic cardiomyopathy-BNP mildly elevated. Chest x-ray on admission with interstitial edema. Weaned off of supplemental oxygen. Echocardiogram 12/08/2020 demonstrated an EF of 50%, mild aortic valve insufficiency, pulmonary artery systolic pressure 43 mmHg. Further IV Lasix discontinued due to increasing creatinine. Repeat echocardiogram demonstrates an EF of 40%, stage I diastolic dysfunction, pulmonary artery systolic pressure 38 mmHg. Resume home Lasix regimen 01/06/2022. Follow-up with cardiology in 2 weeks. 3. Hypertension-stable, continue current regimen. Amlodipine reduced to 2.5 mg twice daily. 4. SILKE on Chronic kidney disease stage IIIa-likely due to diuretic regimen. Nephrology consulted given CKD. Hold Lasix until 01/06/2022. Recommend repeat BMP on 01/09/2022 at PCP follow-up. Follow-up with nephrology. 4. PVC/intermittent bigeminy-mag replaced. Continue beta tiffany. 5. Hyperlipidemia-continue statin. 6. Hypothyroidism-continue Synthroid. 7. Paroxysmal atrial fibrillation-on Eliquis, carvedilol. 8. Chronic COPD-continue home inhaler/aerosol regimen. 9. Type 2 diabetes mellitus-Continue home insulin regimen. 10. JOYCE-on CPAP nightly. 11. Chronic normocytic anemia/iron deficiency anemia- appears stable. 12. Former tobacco use-encouraged continued cessation. Physical Exam Const alert, oriented x3 and no apparent distress Orientation / Consciousness: awake, oriented to person, oriented to place and oriented to time HEENT normocephalic and moist oral mucous membranes Eyes PERRL, EOMs intact bilaterally and conjunctivae normal Neck no lymphadenopathy Resp clear to auscultation bilaterally Auscultation: diminished lung sounds Cardio regular rate, regular rhythm and no murmurs Peripheral Pulses: pulses 2+ throughout GI normal to inspection, nondistended, normoactive bowel sounds, non-tender and non-distended Extremity normal to inspection Extremity Narrative: 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 Skin no rashes or lesions noted Lesions: no lesions Rashes: no rashes Trauma: no lacerations or abrasions Neuro CN's II-XII intact bilaterally, no focal motor deficits, no sensory deficits noted and deep tendon reflexes 2+ bilaterally Psych mental status grossly normal and affect normal Patient seen and examined prior to discharge. Physical assessment as noted above. Patient is stable for discharge with follow up recommendations as noted above. This patient was seen by CORINNE Rojo under the supervision of Dr. Razo. Time spent examining patient, reviewing data and subsequent management of care: 18 minutes Weight / BMI Weight Weight: 212 lb 1.355 oz Body Mass Index (BMI) 27.4 ABG / Lab / Microbiology Data Result Diagrams: 01/04/22 05:40 01/04/22 05:40 Laboratory: Laboratory Results - last 24 hr 01/03/22 05:15: Magnesium 1.8 01/03/22 11:42: POC Glucose 158 H 01/03/22 16:05: POC Glucose 230 H 01/03/22 21:45: POC Glucose 130 H 01/04/22 05:40: WBC 7.6, RBC 3.54 L, Hgb 10.6 L, Hct 32.9 L, MCV 92.9, MCH 29.9, MCHC 32.2, RDW Std Deviation 48.8 H, RDW Coeff of [place] 14.3, Plt Count 166, MPV 9.7, Immature Gran % (Auto) 0.100, Neut % (Auto) 74.8 H, Lymph % (Auto) 11.9 L, [place] % (Auto) 9.5, Eos % (Auto) 3.3, Baso % (Auto) 0.4, Absolute Neuts (auto) 5.7, Absolute Lymphs (auto) 0.90, Nucleated RBC % 0 01/04/22 05:40: Sodium 139, Potassium 3.6, Chloride 106, Carbon Dioxide 27.0, Anion Gap 6, BUN 37 H, Creatinine 2.23 H, Estim Creat Clear Calc 28.37, Est GFR (MDRD) Af Amer 36 L, Est GFR (MDRD) Non-Af 30 L, BUN/Creatinine Ratio 16.6, Glucose 155 H, Calcium 8.5 01/04/22 08:17: POC Glucose 152 H Microbiology: Microbiology 01/03/22 20:50 Stool Enteric Bacteriology - Final 01/03/22 20:50 Stool C. difficile DNA Amplification - Final D/C Instructions Discharge Diet: Light diet - advance as tolerated, Low fat / Low cholesterol and Carb Control Diet Call your doctor if you observe: Fever of 101 or Higher, Shortness of breath, Dizziness and Chest pain Meaningful Use Info Meaningful Use Diagnoses (Choose all that apply): CHF CHF LAURA/ARB ordered at discharge?: No Reason LAURA/ARB not ordered?: Worsening renal function Documented LVEF (%): 40 Discharge Plan Admission Admit Date/Time: 01/01/22 21:07 Primary Reason for Your Visit: Diverticulitis, mild CHF Attending Provider: Heidi Razo Primary Care Provider: Corin Hernandez Consulting Providers: Kalpana Elam ; Jessica Ramirez BROADCAST TRAFFIC COORDINATOR ; Wendy Goodman Instructions Additional Instructions / Restrictions: Day of the Procedure:[] Indication:[] Clinical Information:[] Sedation: By anesthesiologist Procedures in Detail:[] Conclusion:[] Discharge Condition: [ Patient tolerated procedure well.] Recommend repeat BMP on Sunday at PCP follow-up. Discharge Orders/Prescriptions Prescriptions: New amoxicillin-pot clavulanate [Augmentin] 500-125 mg tablet 1 tab PO BID 7 Days Qty: 14 RF: 0 dextromethorphan polistirex [Robitussin ER] 30 mg/5 mL suspension,extended rel 12 hr 10 ml PO Q12H PRN (Reason: cough) Qty: 89 RF: 0 Continued Eliquis 2.5 mg tablet 2.5 mg PO BID RF: 0 fluticasone propionate [Flonase Allergy Relief] 50 mcg/actuation spray,suspension 2 spray intranasal DAILY RF: 0 multivitamin 1 EACH tablet 1 each PO DAILY RF: 0 levothyroxine 100 MCG tablet 100 mcg PO MOTUWETHFRSA RF: 0 levothyroxine 100 MCG tablet 200 mcg PO JARVIS RF: 0 cholecalciferol (vitamin D3) 1,000 UNIT capsule 1,000 unit PO BID RF: 0 insulin aspart U-100 100 UNITS/ML insulin pen 12 units SC BREAKFAST RF: 0 insulin aspart U-100 100 UNITS/ML insulin pen 12 units SC DINNER RF: 0 tiotropium bromide 18 MCG capsule, w/inhalation device 18 mcg IH BID RF: 0 omega-3 fatty acids-fish oil 1 EACH capsule 1 each PO DAILY RF: 0 budesonide-formoterol 1 INHALER inhaler 2 puff inhalation DAILY RF: 0 ferrous gluconate 325 MG tablet 325 mg PO BIDCM RF: 0 ascorbic acid (vitamin C) 1,000 mg tablet 1,000 mg PO DAILY RF: 0 insulin glargine 100 UNIT/ML solution 12 unit SQ QHS RF: 0 lactobacillus comb no.10 1 EACH capsule 1 each PO BID RF: 0 albuterol sulfate 2.5 mg /3 mL (0.083 %) solution for nebulization 2.5 mg continuous nebulization QHS RF: 0 (DME) Handicap Parking Placard See Rx Instructions .Route .MEDSUPPLY Qty: 1 RF: 0 albuterol sulfate 90 mcg/actuation HFA aerosol inhaler 2 puff INHALATION Q4H PRN (Reason: fill as courtesy until 's office open) Qty: 18 RF: 0 atorvastatin 10 mg tablet 10 mg PO QHS Qty: 90 RF: 3 carvedilol 25 mg tablet 25 mg PO BID Qty: 180 RF: 3 magnesium oxide 400 mg magnesium capsule 400 mg PO DAILY RF: 0 Changed amlodipine 5 mg tablet 2.5 mg PO BID Qty: 180 RF: 3 Held furosemide 20 mg tablet 20 mg PO DAILY Qty: 90 RF: 3 Hold Instructions: Resume on 01/06/22. Referrals / Follow Up: Corin Hernandez MD [Primary Care Provider] - 01/09/22 11:00 am (As scheduled 01/09/22) Bhavna Chiang PA [PHYSICIAN TOOL ROOM ATTENDANT] - Within 2 Weeks Disposition Disposition (needs filled in before D/C Order can be placed): Home, Self Care Documented by User: Dr. Heidi Razo MD 01/04/22 13:55 Providers Date of Admission: 01/01/22 Reason For Visit: MILD CHF EXAC, SUSPECTED DIVERTICULITIS Medications at Discharge Home Medications budesonide-formoterol 2 puff INHALATION DAILY 05/20/18 cholecalciferol (vitamin D3) 1,000 unit PO BID 05/20/18 ferrous gluconate 325 mg PO BIDCM 05/20/18 insulin aspart U-100 12 units SC BREAKFAST 05/20/18 insulin aspart U-100 12 units SC DINNER 05/20/18 levothyroxine 100 mcg PO MOTUWETHFRSA 05/20/18 levothyroxine 200 mcg PO JARVIS 05/20/18 multivitamin 1 each PO DAILY 05/20/18 omega-3 fatty acids-fish oil 1 each PO DAILY 05/20/18 tiotropium bromide 18 mcg IH BID 05/20/18 apixaban 2.5 mg tablet 2.5 mg PO BID 06/29/20 Handicap Parking Placard #1 ea 08/25/20 albuterol sulfate 90 mcg/actuation aerosol inhaler 2 puff INHALATION Q4H PRN #18 gm 11/22/20 insulin glargine 12 unit SQ QHS 11/24/20 lactobacillus comb no.10 1 each PO BID 11/24/20 ascorbic acid (vitamin C) 1,000 mg tablet 1,000 mg PO DAILY tab 12/29/20 fluticasone propionate 50 mcg/actuation nasal spray,suspension 2 spray INTRANASAL DAILY 12/29/20 albuterol sulfate 2.5 mg CONTINUOUS NEBULIZATION QHS 01/30/21 atorvastatin 10 mg tablet 10 mg PO QHS #90 tab 06/21/21 furosemide 20 mg tablet 20 mg PO DAILY #90 tab 09/23/21 carvedilol 25 mg tablet 25 mg PO BID #180 tab 11/28/21 magnesium oxide 400 mg PO DAILY cap 12/12/21 amlodipine 2.5 mg PO BID #180 tab 01/04/22 amoxicillin-pot clavulanate [Augmentin] 1 tab PO BID 7 Days #14 tab 01/04/22 dextromethorphan polistirex [Robitussin ER] 10 ml PO Q12H PRN #89 ml 01/04/22 ABG / Lab / Microbiology Data Result Diagrams: 01/04/22 05:40 01/04/22 05:40 Discharge Plan Admission Admit Date/Time: 01/01/22 21:07 Primary Reason for Your Visit: Diverticulitis, mild CHF Attending Provider: Heidi Razo Primary Care Provider: Corin Hernandez Consulting Providers: Kalpana Elam ; Jessica Ramirez BROADCAST TRAFFIC COORDINATOR ; Wendy Goodman Instructions Additional Instructions / Restrictions: Day of the Procedure:[] Indication:[] Clinical Information:[] Sedation: By anesthesiologist Procedures in Detail:[] Conclusion:[] Discharge Condition: [ Patient tolerated procedure well.] Recommend repeat BMP on Sunday at PCP follow-up. Discharge Orders/Prescriptions Prescriptions: New amoxicillin-pot clavulanate [Augmentin] 500-125 mg tablet 1 tab PO BID 7 Days Qty: 14 RF: 0 dextromethorphan polistirex [Robitussin ER] 30 mg/5 mL suspension,extended rel 12 hr 10 ml PO Q12H PRN (Reason: cough) Qty: 89 RF: 0 Continued Eliquis 2.5 mg tablet 2.5 mg PO BID RF: 0 fluticasone propionate [Flonase Allergy Relief] 50 mcg/actuation spray,suspension 2 spray intranasal DAILY RF: 0 multivitamin 1 EACH tablet 1 each PO DAILY RF: 0 levothyroxine 100 MCG tablet 100 mcg PO MOTUWETHFRSA RF: 0 levothyroxine 100 MCG tablet 200 mcg PO JARVIS RF: 0 cholecalciferol (vitamin D3) 1,000 UNIT capsule 1,000 unit PO BID RF: 0 insulin aspart U-100 100 UNITS/ML insulin pen 12 units SC BREAKFAST RF: 0 insulin aspart U-100 100 UNITS/ML insulin pen 12 units SC DINNER RF: 0 tiotropium bromide 18 MCG capsule, w/inhalation device 18 mcg IH BID RF: 0 omega-3 fatty acids-fish oil 1 EACH capsule 1 each PO DAILY RF: 0 budesonide-formoterol 1 INHALER inhaler 2 puff inhalation DAILY RF: 0 ferrous gluconate 325 MG tablet 325 mg PO BIDCM RF: 0 ascorbic acid (vitamin C) 1,000 mg tablet 1,000 mg PO DAILY RF: 0 insulin glargine 100 UNIT/ML solution 12 unit SQ QHS RF: 0 lactobacillus comb no.10 1 EACH capsule 1 each PO BID RF: 0 albuterol sulfate 2.5 mg /3 mL (0.083 %) solution for nebulization 2.5 mg continuous nebulization QHS RF: 0 (DME) Handicap Parking Placard See Rx Instructions .Route .MEDSUPPLY Qty: 1 RF: 0 albuterol sulfate 90 mcg/actuation HFA aerosol inhaler 2 puff INHALATION Q4H PRN (Reason: fill as courtesy until 's office open) Qty: 18 RF: 0 atorvastatin 10 mg tablet 10 mg PO QHS Qty: 90 RF: 3 carvedilol 25 mg tablet 25 mg PO BID Qty: 180 RF: 3 magnesium oxide 400 mg magnesium capsule 400 mg PO DAILY RF: 0 Changed amlodipine 5 mg tablet 2.5 mg PO BID Qty: 180 RF: 3 Held furosemide 20 mg tablet 20 mg PO DAILY Qty: 90 RF: 3 Hold Instructions: Resume on 01/06/22. Referrals / Follow Up: Corin Hernandez MD [Primary Care Provider] - 01/09/22 11:00 am (As scheduled 01/09/22) Bhavna Chiang PA [PHYSICIAN TOOL ROOM ATTENDANT] - Within 2 Weeks Disposition Disposition (needs filled in before D/C Order can be placed): Home, Self Care Charges/Coding Addendum Addendum: This patient was seen in conjunction with COY Lopez. I have independently interviewed and examined the patient and reviewed pertinent historical, laboratory, and other data. I have reviewed her note and concur with her documentation 81 y/o male with past medical history of CAD status post CABG, CKD stage III, hypothyroidism, history of chronic systolic CHF likely cardiomyopathy who comes in with loose stools ongoing for 5 to 7 days associated with left lower quadrant discomfort. Patient's work-up in the ED showed acute descending colon diverticulitis. Patient was managed on IV Zosyn. In the ED, patient was found to be hypoxic, he required use of oxygen. He was felt that patient had mild exacerbation of CHF as well as probable fluid overload. He was continued on IV Lasix. Patient had an acute kidney injury on CKD stage III. Her Lasix was discontinued, nephrology consulted. Repeat blood work on the day of discharge showed improvement in creatinine. Patient was asked to follow-up with his primary care doctor within a week to have repeat blood work to follow-up on kidney function. On the day of discharge, patient was seen and examined. Denied any new complaints. Physical Exam: Gen: Comfortable, not pale, not jaundiced CVS:HS I +II, regular, no murmurs RESP: Diminished at lung bases GI: BS present and normal, soft, nontender, no palpable organs EXT:No edema, status post amputation of the left fourth fingers, chronic Time spent coordinating all aspects of patient's care, discussing with nursing and answering all questions from family: 35 minutes Visit Charges Inpatient E&M: 46338 Disch Hosp
[2022-01-04 11:16] LABS: Bedside Glucose 212 mg/dL (74-106)
--- NOTE | 2022-01-04 11:51 | PHA.DC.MC ---
Pharmacy Service has performed discharge medication reconciliation and counseling for this patient. 1. AUGMENTIN 500MG PO BID X 7 DAYS 2. ROBITUSSIN ER SUSPENSION 10ML PO Q12H PRN COUGH The patient's discharge medication list was reviewed for discrepancies and discrepancies were resolved. Home Medications budesonide-formoterol 2 puff INHALATION DAILY 05/20/18 cholecalciferol (vitamin D3) 1,000 unit PO BID 05/20/18 ferrous gluconate 325 mg PO BIDCM 05/20/18 insulin aspart U-100 12 units SC BREAKFAST 05/20/18 insulin aspart U-100 12 units SC DINNER 05/20/18 levothyroxine 100 mcg PO MOTUWETHFRSA 05/20/18 levothyroxine 200 mcg PO JARVIS 05/20/18 multivitamin 1 each PO DAILY 05/20/18 omega-3 fatty acids-fish oil 1 each PO DAILY 05/20/18 tiotropium bromide 18 mcg IH BID 05/20/18 apixaban 2.5 mg tablet 2.5 mg PO BID 06/29/20 Handicap Parking Placard #1 ea 08/25/20 albuterol sulfate 90 mcg/actuation aerosol inhaler 2 puff INHALATION Q4H PRN #18 gm 11/22/20 insulin glargine 12 unit SQ QHS 11/24/20 lactobacillus comb no.10 1 each PO BID 11/24/20 ascorbic acid (vitamin C) 1,000 mg tablet 1,000 mg PO DAILY tab 12/29/20 fluticasone propionate 50 mcg/actuation nasal spray,suspension 2 spray INTRANASAL DAILY 12/29/20 albuterol sulfate 2.5 mg CONTINUOUS NEBULIZATION QHS 01/30/21 atorvastatin 10 mg tablet 10 mg PO QHS #90 tab 06/21/21 furosemide 20 mg tablet 20 mg PO DAILY #90 tab 09/23/21 carvedilol 25 mg tablet 25 mg PO BID #180 tab 11/28/21 magnesium oxide 400 mg PO DAILY cap 12/12/21 amlodipine 2.5 mg PO BID #180 tab 01/04/22 amoxicillin-pot clavulanate [Augmentin] 1 tab PO BID 7 Days #14 tab 01/04/22 dextromethorphan polistirex [Robitussin ER] 10 ml PO Q12H PRN #89 ml 05/11/22 The patient was counseled on the following discharge medications and changes in medications for homegoing were reviewed. The Reason for Use, instructions for use, and potential side effects were reviewed for all new medications. The patient's questions regarding all of their medications were answered. The patient was able to verbally demonstrate an understanding of their discharge medications. The patient demonstrated some understanding but would benefit from further education and reinforcement. The patient was not able to adequately demonstrate understanding.
--- NOTE | 2022-01-04 13:30 | PCM.PN.REN ---
Subjective Subjective Getting ready to go home. No complaints. and daughter at bedside. Objective Data Objective Data Vital Signs: Vital Signs Temp Pulse Resp BP Pulse Ox 97.9 F 83 16 126/56 H 98 01/04/22 10:00 01/04/22 10:00 01/04/22 10:00 01/04/22 10:00 01/04/22 11:17 Oxygen Flow Rate (L/min) [ 0 AMBULATING on Room Air] Oxygen Flow Rate (L/min) [At 0 REST on Room Air] Oxygen Flow Rate (L/min) 2 Oxygen Delivery Method Room Air Weight: 96.2 kg Body Mass Index (BMI) 27.4 Intake & Output: Intake and Output for Last 24 Hours 01/02/22 01/03/22 01/04/22 23:59 23:59 23:59 Intake Total 1819 760 / 760 Output Total 50 / 50 Balance 1769 760 / 760 Lab / Micro Data Result Diagrams: 01/04/22 05:40 01/04/22 05:40 Labs: Laboratory Results - last 24 hr 01/03/22 05:15: Magnesium 1.8 01/03/22 11:42: POC Glucose 158 H 01/03/22 16:05: POC Glucose 230 H 01/03/22 21:45: POC Glucose 130 H 01/04/22 05:40: WBC 7.6, RBC 3.54 L, Hgb 10.6 L, Hct 32.9 L, MCV 92.9, MCH 29.9, MCHC 32.2, RDW Std Deviation 48.8 H, RDW Coeff of [place] 14.3, Plt Count 166, MPV 9.7, Immature Gran % (Auto) 0.100, Neut % (Auto) 74.8 H, Lymph % (Auto) 11.9 L, [place] % (Auto) 9.5, Eos % (Auto) 3.3, Baso % (Auto) 0.4, Absolute Neuts (auto) 5.7, Absolute Lymphs (auto) 0.90, Nucleated RBC % 0 01/04/22 05:40: Sodium 139, Potassium 3.6, Chloride 106, Carbon Dioxide 27.0, Anion Gap 6, BUN 37 H, Creatinine 2.23 H, Estim Creat Clear Calc 28.37, Est GFR (MDRD) Af Amer 36 L, Est GFR (MDRD) Non-Af 30 L, BUN/Creatinine Ratio 16.6, Glucose 155 H, Calcium 8.5 01/04/22 08:17: POC Glucose 152 H 01/04/22 11:08: POC Glucose 212 H Micro: Microbiology 01/03/22 20:50 Stool Enteric Bacteriology - Final 01/03/22 20:50 Stool C. difficile DNA Amplification - Final Physical Exam Narrative Const: Alert and oriented x3 Cardio: S1, S2, RRR Respiratory: CTA GI: abdomen soft, NT, +BS Extremities: no edema Assessment & Plan Assessment/Plan (1) SILKE (acute kidney injury): (2) CKD (chronic kidney disease) stage 3, GFR 30-59 ml/min: (3) Diverticulitis: PLAN: - Nonoliguric SILKE superimposed on CKD stage III, SILKE likely from overdiuresis, possible component of contrast and lower bps. Creatinine peaked 2.4 mg/dL, today creatinine is 2.23 mg/dL. Renal function is improving. Last Lasix was yesterday. -Blood pressures have improved. On amlodipine (dose was lowered to 2.5 mg twice daily) and carvedilol -CKD stage III, baseline creatinine ranging 1.4 to 1.7 mg/dL CT showed atrophic and ptotic right kidney. UA +protein -Okay to resume Lasix 20 mg starting Sunday. Reviewed with patient and . -Okay for discharge per renal. -We will arrange for hospital follow-up. Patient follows with senior sales operations manager in [place] but due to proximity would like nephrology care closer to home.
== END 2022-01-04 13:30 | disposition home or self-care (01) | DRG 391 ==
LOC: ED 21:08 → PCU 21:40
PROVIDERS: Nurse Practitioner Family; Admitting Provider Family Medicine; Emergency Provider Student in an Organized Health Care Education/Training Program; PCP Family Medicine; Visit Provider Internal Medicine
DX: K57.32 Diverticulitis of large intestine without perforation or abscess without bleeding (principal); I50.23 Acute on chronic systolic (congestive) heart failure; N17.9 Acute kidney failure, unspecified; I13.0 Hypertensive heart and chronic kidney disease with heart failure and stage 1 through stage 4 chronic kidney disease, or unspecified chronic kidney disease; I27.20 Pulmonary hypertension, unspecified; E11.22 Type 2 diabetes mellitus with diabetic chronic kidney disease; E03.9 Hypothyroidism, unspecified; D50.9 Iron deficiency anemia, unspecified; E66.3 Overweight; I48.0 Paroxysmal atrial fibrillation; J44.9 Chronic obstructive pulmonary disease, unspecified; Z79.4 Long term (current) use of insulin; N18.31 Chronic kidney disease, stage 3a; I25.10 Atherosclerotic heart disease of native coronary artery without angina pectoris; I25.5 Ischemic cardiomyopathy; E78.5 Hyperlipidemia, unspecified; G47.33 Obstructive sleep apnea (adult) (pediatric); I08.0 Rheumatic disorders of both mitral and aortic valves; I44.7 Left bundle-branch block, unspecified; Z79.51 Long term (current) use of inhaled steroids; Z79.01 Long term (current) use of anticoagulants; I49.3 Ventricular premature depolarization; Z95.810 Presence of automatic (implantable) cardiac defibrillator; Z66 Do not resuscitate; Z87.891 Personal history of nicotine dependence; Z95.1 Presence of aortocoronary bypass graft; Z86.16 Personal history of COVID-19
CPT/HCPCS: 36415; 71045; 74177; 80048; 80053; 80061; 81001; 82962; 83735; 83880; 84439; 84443; 84484; 85025; 87493; 87506; 93005; 93306; 94002; 94003; 94640; 94660; 94762; 97162; 97530; 97802; 99285; J7030; Q9957; Q9967; A4216; C8929; J1940

== ENCOUNTER → 2022-01-09 | Outpatient (CLI) | payer MEDICARE, OTHER, SELFPAY ==
[2022-01-09 15:22] LABS: Anion Gap 6 (5-15); BUN 31 mg/dL (7-18); BUN/Creat Ratio 17.9 RATIO (10-20); Calcium,Total 9.4 mg/dL (8.5-10.1); Chloride 106 mmol/L (98-107); Creatinine, Serum 1.73 mg/dL (0.70-1.30); EST Glomerular Filtration Rate 40 mL/min (>60); Est Glom Filt Rate - Afr Amer 49 mL/min (>60); Glucose 187 mg/dL (74-106); Potassium 4.1 mmol/L (3.5-5.1); Sodium Level 142 mmol/L (136-145)
[2022-01-09 15:33] LABS: Hemoglobin A1c 6.9 % (3.8-5.6)
== END | disposition home or self-care (01) ==
LOC: MFPLAB 12:24 → MTLAB 12:37
PROVIDERS: PCP Family Medicine; Referring Provider Family Medicine; Visit Provider Family Medicine
DX: E11.9 Type 2 diabetes mellitus without complications (principal); N18.9 Chronic kidney disease, unspecified
CPT/HCPCS: 36415; 80048; 83036

== ENCOUNTER 2022-01-24 13:32 | Emergency (ER) | payer MEDICARE, OTHER, SELFPAY ==
[2022-01-24 13:34] VITALS: BP 114/66; PULSE 111; RESP 16; TEMP 36.4; O2SAT 97; BMI 27.4
--- NOTE | 2022-01-24 13:50 | EKG12_ITS ---
Test Reason : HEART RATE Blood Pressure : / mmHG Vent. Rate : 115 BPM Atrial Rate : 087 BPM P-R Int : 000 ms QRS Dur : 146 ms QT Int : 338 ms P-R-T Axes : 000 059 081 degrees QTc Int : 467 ms Atrial fibrillation with premature ventricular or aberrantly conducted complexes Non-specific intra-ventricular conduction block Abnormal ECG Confirmed by CONNIE SPARKS, LOY ([id number]), research editor ANNE ORDAZ ([id number]) on 01/25/2022 9:01:56 AM Referred By: ROXANNE Confirmed By:LOY ROSALES MD
--- NOTE | 2022-01-24 13:50 | RAD_ITS ---
STUDY: X-RAY CHEST REASON FOR EXAM: Male, 81 years old. sob TECHNIQUE: AP COMPARISON: 01/01/2022 FINDINGS: EKG leads project over the chest. Central pulmonary vascular congestion with interstitial and groundglass opacities stable since the prior study. Trace pleural effusions. There is moderate cardiac enlargement. Sternal wires and mediastinal surgical clips compatible with prior CABG. Atrial appendage clip. Cardiac conduction device overlies the chest. Normal mediastinum and alon. There is prominence of the pulmonary hilar arteries and peripheral pulmonary arteries, consistent with congestive heart failure (CHF). There is atherosclerotic calcification of the aortic arch with tortuosity. No acute bony process. There is no demonstrated abnormality of the visualized soft tissue structures of the upper abdomen. RAD/Chest 1 View (Portable) IMPRESSION: Stable. CHF with interstitial edema and trace effusions. Electronically Signed: Abdifatah Harper MD ([place]) at 14:40 EDT ,
--- NOTE | 2022-01-24 13:54 | ED.VIS.DYS ---
HPI History of Present Illness Chief Complaint: Shortness of Breath Informant: patient Onset/Context/Timing Onset: Days (3) Context: gradual and onset Timing: Continuous Quality: Positive for Dyspnea on exertion and Orthopnea Current Severity: Moderate Maximum Severity: Moderate Worsened by: Exertion and Lying flat Relieved by: Rest Associated Symptoms cough Chest Pain: Positive for None Narrative Narrative: 81-year-old male with a history of congestive heart failure progressively worsening orthopnea and dyspnea with exertion, he does not have dyspnea with very light exertion but if he walks a distance it is hard for him to breathe and he has to stop and rest. No leg edema, no chest pain, no palpitations. Has a history of A. fib and does not feel it when he is in it. He is anticoagulated. Minor cough nonproductive, no fevers or chills. Was in the hospital 3 to 4 weeks ago here for diverticulitis and developed congestive heart failure why he was here, had an echocardiogram showed an ejection fraction of 40%, diastolic dysfunction, concentric LVH. states in the past 5 to 6 months, he is only been on half of the Lasix 20 mg once daily because doctors told us to. [facility] Medical History 65 years of age or older Anemia Atherosclerotic heart disease of [place] coronary artery without angina pectoris Atrial fibrillation Bacterial endocarditis Bilateral carotid bruits Cardiac arrest with ventricular fibrillation (06/2015) Cardiology follow-up encounter Carotid stenosis, left Chronic kidney disease (CKD) Chronic systolic (congestive) heart failure CKD (chronic kidney disease) stage 3, GFR 30-59 ml/min Congestive heart failure (CHF) COPD (chronic obstructive pulmonary disease) COVID-19 (06/01/21) CPAP (continuous positive airway pressure) dependence Dark stools Diabetes Dietary restriction Dizziness Elevated LFTs Essential (primary) hypertension Former smoker History of acute bacterial endocarditis History of echocardiogram History of stress test HLD (hyperlipidemia) Hypokalemia Hypothyroidism ICD (implantable cardioverter-defibrillator) in place Infection and inflammatory reaction due to other cardiac and vascular devices, implants and grafts, initial encounter Infectious endocarditis Insulin dependent diabetes mellitus Iron deficiency Irregular heart beat Ischemic cardiomyopathy Kidney disease Kidney stones Left bundle branch block Malignant pericardial effusion Night sweats Nonrheumatic mitral (valve) prolapse Paroxysmal atrial fibrillation Postoperative atrial fibrillation Primary idiopathic hypertrophic cardiomyopathy Thalamic mass Type II diabetes mellitus Wears dentures Wears glasses Wears hearing aid Home Medications cholecalciferol (vitamin D3) 1,000 unit PO BID 05/20/18 [History Last Taken 03/20/20 19:00 1000 units] ferrous gluconate 325 mg PO BIDCM 05/20/18 [History Last Taken 03/20/20 19:00 325 mg] insulin aspart U-100 12 units SC BREAKFAST 05/20/18 [History Last Taken 03/20/20 08:00 12 units] insulin aspart U-100 12 units SC DINNER 05/20/18 [History Last Taken 03/20/20 18:00 12 units] levothyroxine 100 mcg PO MOTUWETHFRSA 05/20/18 [History Last Taken 04/06/21] levothyroxine 200 mcg PO JARVIS 05/20/18 [History Last Taken 03/20/20 06:00 200 mcg] multivitamin 1 each PO DAILY 05/20/18 [History Last Taken 03/20/20 08:00 1 each] omega-3 fatty acids-fish oil 1 each PO DAILY 05/20/18 [History Last Taken 03/20/20 08:00 1 each] tiotropium bromide 18 mcg IH BID 05/20/18 [History Last Taken 03/20/20 19:00 18 mcg] apixaban 2.5 mg tablet 2.5 mg PO BID 06/29/20 [History Last Taken Unknown] Handicap Parking Placard #1 ea 08/25/20 [Rx Last Taken Unknown] albuterol sulfate 90 mcg/actuation aerosol inhaler 2 puff INHALATION Q4H PRN #18 gm 11/22/20 [Rx Last Taken Unknown] insulin glargine 12 unit SQ QHS 11/24/20 [History Last Taken Unknown] lactobacillus comb no.10 1 each PO BID 11/24/20 [History Last Taken Unknown] ascorbic acid (vitamin C) 1,000 mg tablet 1,000 mg PO DAILY tab 12/29/20 [History Last Taken Unknown] fluticasone propionate 50 mcg/actuation nasal spray,suspension 2 spray INTRANASAL DAILY 12/29/20 [History Last Taken Unknown] albuterol sulfate 2.5 mg CONTINUOUS NEBULIZATION QHS 01/30/21 [History Last Taken Unknown] atorvastatin 10 mg tablet 10 mg PO QHS #90 tab 06/21/21 [Rx Last Taken Unknown] carvedilol 25 mg tablet 25 mg PO BID #180 tab 11/28/21 [Rx Last Taken Unknown] guaifenesin 600 mg tablet, extended release 12 hr 600 mg PO BID 01/19/22 [History Last Taken Unknown] magnesium oxide 400 mg PO BID cap 01/19/22 [History Last Taken Unknown] metformin 500 mg tablet 1,000 mg PO DAILY tab 01/19/22 [History Last Taken Unknown] mometasone 200 mcg/actuation HFA aerosol inhaler 2 puff INHALATION BID 01/19/22 [History Last Taken Unknown] diltiazem HCl 120 mg PO DAILY #30 cap 01/24/22 [Rx Last Taken Unknown] furosemide 40 mg PO DAILY #90 tab 01/24/22 [Rx Last Taken Unknown] Allergy/AdvReac Type Severity Reaction Status Date / Time latex Allergy Other Verified 01/19/22 13:06 LAURA Inhibitors AdvReac Intermediate cough Verified 01/19/22 13:06 enalapril AdvReac Intermediate Shortness Verified 01/19/22 13:06 of breath adhesive tape AdvReac rash Verified 01/19/22 13:06 azithromycin AdvReac Other Verified 01/19/22 13:06 [From Zithromax Z-Robert] levofloxacin [From Levaquin] AdvReac Other Verified 01/19/22 13:06 warfarin [From Coumadin] AdvReac bleeding Verified 01/19/22 13:06 under the skin Family History Father , age 47 from peritonitis Peritonitis Mother , age 93 CVA (cerebral vascular accident) several TIA's Surgical History Abnormal fractional flow reserve (FFR) on cardiac catheterization (02/2017) H/O coronary artery bypass surgery (04/27/17) History of appendectomy History of cardioversion (04/2017) History of implantable cardiac defibrillator (ICD) (01/31/16) History of left heart catheterization History of partial amputation of left hand Hx of bilateral cataract extraction Hx of cholecystectomy Hx of prostatectomy ICD (implantable cardioverter-defibrillator) infection Social History household members: spouse Smoking Status: Former smoker how long ago did patient quit smoking: Quit ~ 50 years prior, prior to quitting up to 4 ppd since 9/10 years old. alcohol intake: never substance use type: does not use caffeine: No what type of physical activity do you participate in: walking frequency: 5-6 times per week duration: 15-30 minutes/day seatbelt use: always do you feel safe at home: Yes ROS ROS ED Constitutional Constitutional ED: Denies chills or fever(s) Eyes Eyes: Denies change in vision or diplopia ENT ENT ED: Denies rhinorrhea or sore throat Cardiovascular Cardiovascular: Reports orthopnea; Denies chest pain, palpitations or pedal edema Respiratory/Chest Respiratory/Chest: Reports cough, dyspnea on exertion and orthopnea Gastrointestinal Gastrointestinal: Denies abdominal pain, diarrhea, nausea or vomiting Genitourinary Genitourinary ED: Denies dysuria or hematuria Musculoskeletal Musculoskeletal: Denies back pain or neck pain Integumentary Denies abscess or rash Neurologic Neurologic: Denies headache(s), paresthesias or weakness Psychiatric Psychiatric: Denies anxiety or suicidal thoughts EXAM Physical Exam Const Vital Signs: 01/24/22 13:34 01/24/22 13:49 Temperature 97.5 F L Temperature Source Temporal Pulse Rate 111 H Respiratory Rate 16 Respiratory Effort Normal Non-Labored Respiratory Depth Normal Respiratory Pattern Normal Blood Pressure 114/66 Blood Pressure Mean 82 Pulse Ox 97 Oxygen Delivery Method Room Air Room Air Positive well nourished and well developed General Appearance ED: well developed and NAD HEENT Reports moist mucous membranes normocephalic and atraumatic Eyes PERRL and EOMs intact bilaterally Neck full ROM and supple Resp normal respiratory effort Resp Narrative: Bibasilar rhonchi worse on the right Effort and Inspection: able to speak in complete sentences Cardio no murmurs Rate: tachycardic Rhythm: abnormal rhythm irregularly irregular GI non-tender and non-distended Auscultation: normoactive bowel sounds Palpation: soft Back/Spine no CVA tenderness General Back: other FROM Extremity normal to inspection and no calf tenderness General Extremety ED: Negative for edema, pulses abnormal or tenderness General Extremity: Negative for edema or pulses abnormal Neuro oriented x3, CN's II-XII intact bilaterally and no sensory deficits noted Sensorium / Orientation: awake and alert Motor Exam: strength 5/5 throughout Skin no rashes or lesions noted and no wounds MDM MDM MDM Narrative Medical decision making narrative: Work-up is consistent with a mild exacerbation of congestive heart failure. He was given some IV Lasix here, in addition to a dose of metoprolol to help slow his A. fib with RVR down as it could have been the potential cause of his symptoms as well. On reevaluation his blood pressure stable his heart rate is still in the low 100-110 range. We ambulated him. He did very well, conversive the entire time, no dyspnea, and remained at 94% or above on room air. Looking at his records it seems he was just seen in the cardiology office 5 days ago, a week or 2 after his hospital admission. His Lasix had been discontinued in the hospital due to SILKE and advised to resume it afterwards at 10 mg once daily. After the Lasix here he did urinate and feels a little better. I do not think he needs to be admitted to the hospital. I discussed with cardiology Dr. Verdin, he recommends discontinuing the amlodipine, adding diltiazem 120 CD, and increasing his Lasix to 40 mg once daily due to his renal disease and have him follow-up closely in the office. Patient is okay with this and being discharged home today. Lab Data Attestation: I reviewed the patient's lab results. Labs: Laboratory Results - last 24 hr 01/24/22 01/24/22 01/24/22 14:17 14:17 14:17 WBC 10.6 RBC 3.65 L Hgb 10.8 L Hct 34.4 L MCV 94.2 H MCH 29.6 MCHC 31.4 L RDW Std Deviation 49.9 H RDW Coeff of Harrison 14.6 Plt Count 176 MPV 10.5 Immature Gran % (Auto) 0.400 Neut % (Auto) 81.9 H Lymph % (Auto) 7.9 L Bremer % (Auto) 8.0 Eos % (Auto) 1.4 Baso % (Auto) 0.4 Absolute Neuts (auto) 8.7 H Absolute Lymphs (auto) 0.84 Nucleated RBC % 0 Sodium 141 Potassium 3.6 Chloride 110 H Carbon Dioxide 24.0 Anion Gap 7 BUN 34 H Creatinine 1.81 H Estim Creat Clear Calc 35.95 Est GFR (MDRD) Af Amer 46 L Est GFR (MDRD) Non-Af 38 L BUN/Creatinine Ratio 18.8 Glucose 108 H Calcium 9.1 Troponin I High Sens 14 B-Natriuretic Peptide 896.8 H POC Glucose 01/24/22 14:50 WBC RBC Hgb Hct MCV MCH MCHC RDW Std Deviation RDW Coeff of Harrison Plt Count MPV Immature Gran % (Auto) Neut % (Auto) Lymph % (Auto) Bremer % (Auto) Eos % (Auto) Baso % (Auto) Absolute Neuts (auto) Absolute Lymphs (auto) Nucleated RBC % Sodium Potassium Chloride Carbon Dioxide Anion Gap BUN Creatinine Estim Creat Clear Calc Est GFR (MDRD) Af Amer Est GFR (MDRD) Non-Af BUN/Creatinine Ratio Glucose Calcium Troponin I High Sens B-Natriuretic Peptide POC Glucose 99 Radiography Diagnostic Testing: Clinical Impression(s) from Imaging Studies Chest X-Ray 01/24/22 13:50 IMPRESSION: Stable. CHF with interstitial edema and trace effusions. Electronically Signed: Abdifatah Harper MD (Brooks) at 14:40 EDT Reading Location ID and State: [facility] / [place] , Service support , Rhythm Strip Rhythm Strip: A-fib Rate: 120 Ectopy: None EKG Initial EKG: Attestation: I personally reviewed and interpreted this EKG as follows: Interpretation: No Acute Injury Pattern and LBBB Prior EKG tracings: available for review Prior: Unchanged Discharge Plan Triage Chief Complaint: Shortness of Breath ED Provider: Vineet Wright Dx/Rx/DC Orders Clinical Impression: Acute exacerbation of CHF (congestive heart failure), Chronic renal insufficiency Instructions: Heart Failure Dc Prescriptions: New diltiazem HCl 120 mg capsule,extended release 24hr 120 mg PO DAILY Qty: 30 RF: 0 Continued Eliquis 2.5 mg tablet 2.5 mg PO BID RF: 0 fluticasone propionate [Flonase Allergy Relief] 50 mcg/actuation spray,suspension 2 spray intranasal DAILY RF: 0 guaifenesin [Mucinex] 600 mg tablet extended release 12hr 600 mg PO BID RF: 0 Asmanex HFA 200 mcg/actuation HFA aerosol inhaler 2 puff inhalation BID RF: 0 metformin 500 mg tablet 1,000 mg PO DAILY RF: 0 multivitamin 1 EACH tablet 1 each PO DAILY RF: 0 levothyroxine 100 MCG tablet 100 mcg PO MOTUWETHFRSA RF: 0 levothyroxine 100 MCG tablet 200 mcg PO JARVIS RF: 0 cholecalciferol (vitamin D3) 1,000 UNIT capsule 1,000 unit PO BID RF: 0 insulin aspart U-100 100 UNITS/ML insulin pen 12 units SC BREAKFAST RF: 0 insulin aspart U-100 100 UNITS/ML insulin pen 12 units SC DINNER RF: 0 tiotropium bromide 18 MCG capsule, w/inhalation device 18 mcg IH BID RF: 0 omega-3 fatty acids-fish oil 1 EACH capsule 1 each PO DAILY RF: 0 ferrous gluconate 325 MG tablet 325 mg PO BIDCM RF: 0 ascorbic acid (vitamin C) 1,000 mg tablet 1,000 mg PO DAILY RF: 0 insulin glargine 100 UNIT/ML solution 12 unit SQ QHS RF: 0 lactobacillus comb no.10 1 EACH capsule 1 each PO BID RF: 0 albuterol sulfate 2.5 mg /3 mL (0.083 %) solution for nebulization 2.5 mg continuous nebulization QHS RF: 0 (DME) Handicap Parking Placard See Rx Instructions .Route .MEDSUPPLY Qty: 1 RF: 0 albuterol sulfate 90 mcg/actuation HFA aerosol inhaler 2 puff INHALATION Q4H PRN (Reason: fill as courtesy until 's office open) Qty: 18 RF: 0 atorvastatin 10 mg tablet 10 mg PO QHS Qty: 90 RF: 3 carvedilol 25 mg tablet 25 mg PO BID Qty: 180 RF: 3 magnesium oxide 400 mg magnesium capsule 400 mg PO BID RF: 0 Changed furosemide 20 mg tablet 40 mg PO DAILY Qty: 90 RF: 3 Discontinued amlodipine 5 mg tablet 2.5 mg PO BID Qty: 180 RF: 3 Primary Care Provider: Corin Hernandez Referrals: Corin Hernandez MD [Primary Care Provider] - Bunny Verdin MD [STAFF PHYSICIAN] - 3-5 Days Activity Restrictions/Additional Instructions: See medication changes above; when you fill and get the diltiazem, take the first dose. Disposition Disposition: Home, Self Care
[2022-01-24 14:27] LABS: Absolute Lymphocyte Count 0.84 X10^3/uL (0.83-4.51); Absolute Neutrophil Count 8.7 X10^3/uL (2.0-7.7); Basophil# 0.04 X10^3/uL; Basophil% 0.4 % (0-1); Eosinophil# 0.15 X10^3/uL; Eosinophils% 1.4 % (0-5); Hematocrit 34.4 % (40-54); Hemoglobin 10.8 g/dL (13.0-16.5); Lymphocyte # 0.84 X10^3/ul (0.83-4.51); Lymphocyte % 7.9 % (19-41); Mean Corp Hgb Conc 31.4 g/dL (32-36); Mean Corpuscular Hgb 29.6 pg (27.0-32.0); Mean Corpuscular Volume 94.2 fL (80-94); Mean Platelet Vol. 10.5 fl (6.2-12.0); Monocyte# 0.85 X10^3/uL; NRBC Flagged by Analyzer 0 % (0-5); Neutrophil # 8.65 X10^3/uL (2.7-7.7); Neutrophil % 81.9 % (47-70); Platelet Count 176 K/mm3 (150-450); RBC Distribution Width CV 14.6 % (11.6-14.6); RBC Distribution Width SD 49.9 fl (35.1-43.9); Red Blood Count 3.65 M/mm3 (4.6-6.2); White Blood Count 10.6 K/mm3 (4.4-11.0)
[2022-01-24] MEDS: Metoprolol Tartrate 5 MG/5 ML Vial IV (14:46)
[2022-01-24] MEDS: Furosemide 20 MG/2 ML VIAL 10 MG IV (14:46)
[2022-01-24 14:47] LABS: Anion Gap 7 (5-15); BUN 34 mg/dL (7-18); BUN/Creat Ratio 18.8 RATIO (10-20); Calcium,Total 9.1 mg/dL (8.5-10.1); Chloride 110 mmol/L (98-107); Creatinine, Serum 1.81 mg/dL (0.70-1.30); EST Glomerular Filtration Rate 38 mL/min (>60); Est Glom Filt Rate - Afr Amer 46 mL/min (>60); Estimated Creatinine Clearance 35.95 ml/min; Glucose 108 mg/dL (74-106); Potassium 3.6 mmol/L (3.5-5.1); Sodium Level 141 mmol/L (136-145); Troponin-I HS 14 pg/mL (3.0-78.0)
[2022-01-24 14:59] LABS: BNP,B-Type NATRIURETIC PEPTIDE 896.8 pg/mL (0-100)
[2022-01-24 15:06] LABS: Bedside Glucose 99 mg/dL (74-106)
[2022-01-24 15:11] VITALS: O2SAT 97
[2022-01-24 16:26] VITALS: BP 131/91; PULSE 99; RESP 16; O2SAT 98
== END 2022-01-24 16:27 | disposition home or self-care (01) ==
PROVIDERS: Emergency Provider Emergency Medicine; PCP Family Medicine; Visit Provider Emergency Medicine
DX: I13.0 Hypertensive heart and chronic kidney disease with heart failure and stage 1 through stage 4 chronic kidney disease, or unspecified chronic kidney disease (principal); N17.9 Acute kidney failure, unspecified; J44.9 Chronic obstructive pulmonary disease, unspecified; I50.43 Acute on chronic combined systolic (congestive) and diastolic (congestive) heart failure; E11.22 Type 2 diabetes mellitus with diabetic chronic kidney disease; I48.0 Paroxysmal atrial fibrillation; Z79.4 Long term (current) use of insulin; N18.30 Chronic kidney disease, stage 3 unspecified; I25.5 Ischemic cardiomyopathy; I25.10 Atherosclerotic heart disease of native coronary artery without angina pectoris; E78.5 Hyperlipidemia, unspecified; E03.9 Hypothyroidism, unspecified; Z95.1 Presence of aortocoronary bypass graft; Z95.810 Presence of automatic (implantable) cardiac defibrillator; Z79.01 Long term (current) use of anticoagulants; Z79.84 Long term (current) use of oral hypoglycemic drugs; Z79.899 Other long term (current) drug therapy; Z86.16 Personal history of COVID-19; Z86.74 Personal history of sudden cardiac arrest; Z87.891 Personal history of nicotine dependence
CPT/HCPCS: 71045; 80048; 82962; 83880; 84484; 85025; 93005; 96374; 96375; 99283; J1940

== ENCOUNTER → 2022-02-01 | Outpatient (CLI) | payer MEDICARE, OTHER, SELFPAY ==
[2022-02-01 13:07] LABS: Anion Gap 7 (5-15); BUN 29 mg/dL (7-18); BUN/Creat Ratio 17.1 RATIO (10-20); Calcium,Total 8.9 mg/dL (8.5-10.1); Chloride 106 mmol/L (98-107); EST Glomerular Filtration Rate 41 mL/min (>60); Est Glom Filt Rate - Afr Amer 50 mL/min (>60); Glucose 152 mg/dL (74-106); Potassium 3.2 mmol/L (3.5-5.1); Sodium Level 141 mmol/L (136-145)
== END | disposition home or self-care (01) ==
LOC: LAB 11:32
PROVIDERS: PCP Family Medicine; Referring Provider Physician Assistant Medical; Visit Provider Physician Assistant Medical
DX: R06.00 Dyspnea, unspecified (principal)
CPT/HCPCS: 36415; 80048

== ENCOUNTER → 2022-02-13 | Outpatient (CLI) | payer MEDICARE, OTHER, SELFPAY ==
[2022-02-13 07:54] LABS: Anion Gap 4 (5-15); BUN 24 mg/dL (7-18); BUN/Creat Ratio 14.7 RATIO (10-20); Calcium,Total 8.7 mg/dL (8.5-10.1); Chloride 108 mmol/L (98-107); Creatinine, Serum 1.63 mg/dL (0.70-1.30); EST Glomerular Filtration Rate 43 mL/min (>60); Est Glom Filt Rate - Afr Amer 52 mL/min (>60); Glucose 103 mg/dL (74-106); Potassium 3.6 mmol/L (3.5-5.1); Sodium Level 142 mmol/L (136-145)
== END | disposition home or self-care (01) ==
LOC: LAB 07:06
PROVIDERS: PCP Family Medicine; Referring Provider Physician Assistant Medical; Visit Provider Physician Assistant Medical
DX: N18.9 Chronic kidney disease, unspecified (principal)
CPT/HCPCS: 36415; 80048

== ENCOUNTER → 2022-03-01 | Outpatient (CLI) | payer MEDICARE, OTHER, SELFPAY ==
--- NOTE | 2022-03-01 | LES_PTH ---
PATIENT: RACHNA MAYES LOC: [facility] U#:[id number] AGE/SX: 81/M ROOM: RE03/01/[address]: Dr. Ncik Ruiz MD : [id number] BED: DIS: 03/01/2022 SPEC #: [id number] RECD: 03/01/22 17:43 STATUS: SIMON MARION #: [id number] ASHLEIGH: 03/01/22 00:[address]: Nick Ruiz DEPT: SURGICAL PATHOLOGY RECD BY: Dada Palacios Tissues: Skin of eyelid, NOS Procedures: Surgery Specimen Level IV HEADER OPERATION: Lesion removal left lower lid PRE-OP DIAGNOSIS: Vascular lesion increased size TISSUE SUBMITTED: Left lower lid lesion MICROSCOPIC DIAGNOSIS Left lower eyelid lesion, biopsy: Benign fibroepithelial polyp with seborrheic keratosis-like features and with actinic change. AM:steve 03/03/2022 MICROSCOPIC DESCRIPTION Slides are reviewed. GROSS DESCRIPTION Received in fixative is one container labeled with the patient's name and designated left lower lid. The specimen consists of a piece of [place]-white skin measuring 0.5 x 0.4 x 0.2 cm. The entire specimen is submitted in one cassette. / SJ:steve 03/02/2022 TC:1 CPT: 53844
== END | disposition home or self-care (01) ==
PROVIDERS: Referring Provider Ophthalmology; Visit Provider Ophthalmology
DX: H02.9 Unspecified disorder of eyelid (principal)
CPT/HCPCS: 88305

== ENCOUNTER → 2022-03-09 | Outpatient (CLI) | payer MEDICARE, OTHER, SELFPAY ==
[2022-03-09 09:27] LABS: Hemoglobin A1c 6.7 % (3.8-5.6)
[2022-03-09 09:36] LABS: Vitamin D,25 Hydroxy 52.2 ng/mL
[2022-03-09 09:42] LABS: AST(SGOT) 15 U/L (15-37); Alanine Aminotransfer ALT/SGPT 20 U/L (16-61); Albumin, Serum 3.4 g/dL (3.2-5.0); Alkaline Phosphatase 88 U/L (45-117); Anion Gap 5 (5-15); BUN 33 mg/dL (7-18); BUN/Creat Ratio 18.1 RATIO (10-20); Calcium,Total 9.3 mg/dL (8.5-10.1); Chloride 111 mmol/L (98-107); Creatinine, Serum 1.82 mg/dL (0.70-1.30); EST Glomerular Filtration Rate 38 mL/min (>60); Est Glom Filt Rate - Afr Amer 46 mL/min (>60); Globulin 3.4 g/dL (2.2-4.2); Glucose 116 mg/dL (74-106); Potassium 3.8 mmol/L (3.5-5.1); Protein, Total 6.8 g/dL (6.4-8.2); Sodium Level 142 mmol/L (136-145); Thyroid Stim Hormone (TSH) 1.75 uIU/mL (0.358-3.74)
== END | disposition home or self-care (01) ==
LOC: LAB 08:23
PROVIDERS: PCP Family Medicine; Referring Provider Internal Medicine Endocrinology, Diabetes & Metabolism; Visit Provider Internal Medicine Endocrinology, Diabetes & Metabolism
DX: E11.9 Type 2 diabetes mellitus without complications (principal); E03.9 Hypothyroidism, unspecified; E16.2 Hypoglycemia, unspecified; E55.9 Vitamin D deficiency, unspecified; E78.5 Hyperlipidemia, unspecified
CPT/HCPCS: 36415; 80053; 82043; 82306; 83036; 84443

== ENCOUNTER 2022-04-02 08:29 | Observation (INO) | payer MEDICARE, OTHER, SELFPAY ==
[2022-04-02] VITALS (14 sets, daily range): BP systolic 102–167; BP diastolic 49–83; PULSE 68–88; RESP 16–19; TEMP 36.3–36.8; O2SAT 96–99; BMI 26.9
--- NOTE | 2022-04-02 08:46 | CT_ITS ---
EXAM: CT HEAD WITHOUT INTRAVENOUS CONTRAST CLINICAL INDICATION: dizziness TECHNIQUE: Multiple axial images were obtained of the head without intravenous contrast. This CT exam was performed using one or more of the following dose reduction techniques: automated exposure control, adjustment of the mA and/or kV according to patient size, and/or use of iterative reconstruction technique. This report was created using [employer] report generation technology. COMPARISON: CT Head dated may 13 2018 FINDINGS: BRAIN AND EXTRA-AXIAL SPACES: Areas of diminished white matter density noted within both cerebral hemispheres suggestive of chronic microvascular change. No change in the lacunar infarct involving the left basal ganglia. No change in the densely calcified 2.1 cm right thalamic lesion. Prominence of the cortical sulci and ventricles related to volume loss change. No intra- or extra-axial hemorrhage. No mass effect. Posterior fossa structures are unremarkable. Basal cisterns are patent. BONES/JOINTS: Normal. No discrete lytic or blastic abnormalities. SINUSES: Unremarkable as visualized. Clear. MASTOID AIR CELLS: Normal. Clear. ORBITS: Visualized globes, extraocular muscles, optic nerves and retrobulbar fat appear unremarkable. CT/Brain/Head without Contrast IMPRESSION: No acute intracranial abnormality. No interval change. Electronically Signed: Mihir Gonzalez MD at 9:52 EDT ,
--- NOTE | 2022-04-02 08:47 | EKG12_ITS ---
Test Reason : DIZZY Blood Pressure : / mmHG Vent. Rate : 071 BPM Atrial Rate : 071 BPM P-R Int : 254 ms QRS Dur : 150 ms QT Int : 458 ms P-R-T Axes : 000 021 087 degrees QTc Int : 497 ms Sinus rhythm with 1st degree A-V block with occasional Premature ventricular complexes Left bundle branch block Abnormal ECG Confirmed by CONNIE SPARKS, LOY ([id number]), health editor KEL FITZPATRICK ([id number]) on 04/04/2022 9:07:07 AM Referred By: Confirmed By:LOY ROSALES MD
--- NOTE | 2022-04-02 08:50 | EX.ED.DYSGE1 ---
HPI History of Present Illness Chief Complaint: Dizziness Narrative Narrative: Patient presents with vertigo. He has had in the past but this feels different and its constant. It is not related to movement of the head it is not positional. He has no weakness paresthesias, he did feel confused this morning. His vertigo is slightly improved and his confusion has fully improved. He had no speech difficulties or vision changes. He has no chest pain or shortness of breath. [facility] Medical History 65 years of age or older Anemia Atherosclerotic heart disease of [place] coronary artery without angina pectoris Atrial fibrillation Bacterial endocarditis Bilateral carotid bruits Cardiac arrest with ventricular fibrillation (06/2015) Cardiology follow-up encounter Carotid stenosis, left Chronic kidney disease (CKD) Chronic systolic (congestive) heart failure CKD (chronic kidney disease) stage 3, GFR 30-59 ml/min Congestive heart failure (CHF) COPD (chronic obstructive pulmonary disease) COVID-19 (06/01/21) CPAP (continuous positive airway pressure) dependence Dark stools Diabetes Dietary restriction Dizziness Elevated LFTs Essential (primary) hypertension Former smoker History of acute bacterial endocarditis History of echocardiogram History of stress test HLD (hyperlipidemia) Hypokalemia Hypothyroidism ICD (implantable cardioverter-defibrillator) in place Infection and inflammatory reaction due to other cardiac and vascular devices, implants and grafts, initial encounter Infectious endocarditis Insulin dependent diabetes mellitus Iron deficiency Irregular heart beat Ischemic cardiomyopathy Kidney disease Kidney stones Left bundle branch block Malignant pericardial effusion Night sweats Nonrheumatic mitral (valve) prolapse Paroxysmal atrial fibrillation Postoperative atrial fibrillation Primary idiopathic hypertrophic cardiomyopathy Thalamic mass Type II diabetes mellitus Wears dentures Wears glasses Wears hearing aid Home Medications cholecalciferol (vitamin D3) 25 mcg (1,000 unit) capsule 1,000 unit PO BID supplement 05/20/18 [History Last Taken 03/20/20 19:00 1000 units] ferrous gluconate 324 mg (37.5 mg iron) tablet 325 mg PO BIDCM iron supplement 05/20/18 [History Last Taken 03/20/20 19:00 325 mg] insulin aspart U-100 100 unit/mL (3 mL) subcutaneous pen 12 units subcut BREAKFAST DM 05/20/18 [History Last Taken 03/20/20 08:00 12 units] insulin aspart U-100 100 unit/mL (3 mL) subcutaneous pen 12 units subcut DINNER DM 05/20/18 [History Last Taken 03/20/20 18:00 12 units] levothyroxine 100 mcg tablet 100 mcg PO MOTUWETHFRSA hypothyroidism 05/20/18 [History Last Taken 04/06/21] levothyroxine 100 mcg tablet 200 mcg PO JARVIS hypothyroidism 05/20/18 [History Last Taken 03/20/20 06:00 200 mcg] multivitamin 1 each PO DAILY supplement 05/20/18 [History Last Taken 03/20/20 08:00 1 each] omega-3 fatty acids-fish oil 300 mg-1,000 mg capsule 1 each PO DAILY supplement 05/20/18 [History Last Taken 03/20/20 08:00 1 each] tiotropium bromide 18 mcg capsule with inhalation device 18 mcg IH BID congestion 05/20/18 [History Last Taken 03/20/20 19:00 18 mcg] apixaban 2.5 mg tablet (Eliquis) 2.5 mg PO BID blood thinner 06/29/20 [History Last Taken Unknown] Handicap Parking Placard #1 ea 08/25/20 [Rx Last Taken Unknown] albuterol sulfate 90 mcg/actuation aerosol inhaler 2 puff inhalation Q4H PRN fill as courtesy until 's office open #18 grams 11/22/20 [Rx Last Taken Unknown] insulin glargine 100 unit/mL subcutaneous solution 12 unit SQ QHS DM 11/24/20 [History Last Taken Unknown] lactobacillus comb no.10 20 billion cell capsule 1 each PO BID supplement 11/24/20 [History Last Taken Unknown] ascorbic acid (vitamin C) 1,000 mg tablet 1,000 mg PO DAILY supplement 12/29/20 [History Last Taken Unknown] fluticasone propionate 50 mcg/actuation nasal spray,suspension (Flonase Allergy Relief) 2 spray intranasal DAILY congestion 12/29/20 [History Last Taken Unknown] albuterol sulfate 2.5 mg/3 mL (0.083 %) solution for nebulization 2.5 mg continuous nebulization QHS breathing 01/30/21 [History Last Taken Unknown] carvedilol 25 mg tablet 25 mg PO BID heart #180 tabs 11/28/21 [Rx Last Taken Unknown] mometasone 200 mcg/actuation HFA aerosol inhaler (Asmanex HFA) 2 puff inhalation BID 01/19/22 [History Last Taken Unknown] diltiazem HCl 120 mg capsule,extended release 24 hr 120 mg PO DAILY #90 caps 02/01/22 [Rx Last Taken Unknown] magnesium oxide 200 mg PO BID supplement 02/01/22 [History Last Taken Unknown] furosemide 20 mg tablet 20 mg PO DAILY water pill #90 tabs 02/06/22 [Rx Last Taken Unknown] spironolactone 25 mg tablet 25 mg PO QAM #90 tabs 02/06/22 [Rx Last Taken Unknown] atorvastatin 10 mg tablet 10 mg PO QHS cholesterol #90 tabs 03/06/22 [Rx Last Taken Unknown] empagliflozin 25 mg tablet (Jardiance) 25 mg PO DAILY 03/24/22 [History Last Taken Unknown] Allergy/AdvReac Type Severity Reaction Status Date / Time latex Allergy Other Verified 04/02/22 08:32 LAURA Inhibitors AdvReac Intermediate cough Verified 04/02/22 08:32 enalapril AdvReac Intermediate Shortness Verified 04/02/22 08:32 of breath adhesive tape AdvReac rash Verified 04/02/22 08:32 azithromycin AdvReac Other Verified 04/02/22 08:32 [From Zithromax Z-Robert] levofloxacin [From Levaquin] AdvReac Other Verified 04/02/22 08:32 warfarin [From Coumadin] AdvReac bleeding Verified 04/02/22 08:32 under the skin Family History Father , age 47 from peritonitis Peritonitis Mother , age 93 CVA (cerebral vascular accident) several TIA's Surgical History Abnormal fractional flow reserve (FFR) on cardiac catheterization (02/2017) H/O coronary artery bypass surgery (04/27/17) History of appendectomy History of cardioversion (04/2017) History of implantable cardiac defibrillator (ICD) (03/17/22) History of left heart catheterization History of partial amputation of left hand Hx of bilateral cataract extraction Hx of cholecystectomy Hx of prostatectomy ICD (implantable cardioverter-defibrillator) infection Social History household members: spouse Smoking Status: Former smoker how long ago did patient quit smoking: Quit ~ 50 years prior, prior to quitting up to 4 ppd since 7/10 years old. alcohol intake: never substance use type: does not use caffeine: No what type of physical activity do you participate in: walking frequency: 5-6 times per week duration: 15-30 minutes/day seatbelt use: always do you feel safe at home: Yes ROS ROS ED ROS Narrative Past medical history: Reviewed, includes hypertension, hypercholesterolemia, atrial fibrillation he is on Eliquis but only 2.5 mg twice daily, diabetes, carotid bruits. Medications: Reviewed Social history: Noncontributory Review of systems: All systems negative except as indicated General: No fever Eyes: No visual changes ENT: No upper airway congestion, normal voice Neck: No neck pain Cardiovascular: No chest pain, no lightheadedness Respiratory: No shortness of breath or cough Gastrointestinal: No abdominal pain, nausea vomiting or diarrhea Genitourinary: No dysuria Musculoskeletal: Denies myalgias no difficulty with ambulation Skin: No rash Neurological: As in HPI. Psych: No recent behavioral changes Hematologic: No easy bleeding or easy bruising EXAM Physical Exam Narrative Exam Narrative: Physical exam General: Well nourished, Well developed, No Acute Distress Head: Normocephalic, Atraumatic Eyes: Conjunctiva not pale ENT: Moist mucous membranes Neck: Supple, Nontender, No lymphadenopathy Cardiovascular: Somewhat irregular. No obvious murmurs. Respiratory: No distress, CTA bilaterally Abdomen: Soft, Nontender, Nondistended Back: Nontender, Normal Inspection. Negative for: CVA tenderness Extremities: Part of the left hand is missing from a prior accident, but no other abnormalities no lower extremity edema Skin: Normal color, No rash Neurological: Alert, Normal Strength, Normal Sensation. He has normal cerebellar function including finger-nose [id number] and Romberg. Psychological: Normal affect Const Vital Signs: 04/02/22 08:31 04/02/22 10:10 Temperature 98.0 F 98.3 F Temperature Source Temporal Temporal Pulse Rate 68 88 Respiratory Rate 18 19 H Blood Pressure 102/49 L 145/76 H Blood Pressure Mean 66 99 Pulse Ox 99 98 Oxygen Delivery Method Room Air Room Air MDM MDM MDM Narrative Medical decision making narrative: Patient presents with vertigo it is ill-defined I cannot reproduce it, he has a normal work-up but he is a vasculopath, he has lots of risk factors I will admit him for a posterior circulation work-up. Lab Data Labs: Laboratory Results - last 24 hr 04/02/22 04/02/22 09:00 09:00 WBC 7.5 RBC 4.01 L Hgb 11.8 L Hct 37.7 L MCV 94.0 MCH 29.4 MCHC 31.3 L RDW Std Deviation 49.9 H RDW Coeff of Harrison 14.8 H Plt Count 201 MPV 10.5 Immature Gran % (Auto) 0.500 Neut % (Auto) 77.0 H Lymph % (Auto) 12.5 L [place] % (Auto) 7.9 Eos % (Auto) 1.7 Baso % (Auto) 0.4 Absolute Neuts (auto) 5.8 Absolute Lymphs (auto) 0.94 Nucleated RBC % 0 Sodium 140 Potassium 3.9 Chloride 111 H Carbon Dioxide 23.0 Anion Gap 6 BUN 34 H Creatinine 2.02 H Estim Creat Clear Calc 32.22 Est GFR (MDRD) Af Amer 41 L Est GFR (MDRD) Non-Af 34 L BUN/Creatinine Ratio 16.8 Glucose 155 H Calcium 8.8 Total Bilirubin 0.30 AST 24 ALT 22 Alkaline Phosphatase 83 Troponin I High Sens 16 Total Protein 6.9 Albumin 3.3 Globulin 3.6 Albumin/Globulin Ratio 0.9 Radiography Diagnostic Testing: Clinical Impression(s) from Imaging Studies Brain CT 04/02/22 08:46 IMPRESSION: No acute intracranial abnormality. No interval change. Electronically Signed: Mihir Gonzalez MD at 9:52 EDT , Discharge Plan Triage Chief Complaint: Dizziness ED Provider: Kareem Fernandes Dx/Rx/DC Orders Clinical Impression: Vertigo, Hypertension, Diabetes Prescriptions: No Action Eliquis 2.5 mg tablet 2.5 mg PO BID Label Comments: pt states per Dr Antony's instructions, will stop Eliquis 48hrs prior to surgery on 04/06/21 fluticasone propionate [Flonase Allergy Relief] 50 mcg/actuation spray,suspension 2 spray intranasal DAILY Rx Instructions: administer into each nostril atorvastatin 10 mg tablet 10 mg PO QHS Qty: 90 3RF Asmanex HFA 200 mcg/actuation HFA aerosol inhaler 2 puff inhalation BID diltiazem HCl 120 mg capsule,extended release 24hr 120 mg PO DAILY Qty: 90 3RF Jardiance 25 mg tablet 25 mg PO DAILY Rx Instructions: take 1/2 tab daily multivitamin 1 EACH tablet 1 each PO DAILY levothyroxine 100 MCG tablet 100 mcg PO MOTUWETHFRSA levothyroxine 100 MCG tablet 200 mcg PO JARVIS cholecalciferol (vitamin D3) 1,000 UNIT capsule 1,000 unit PO BID insulin aspart U-100 100 UNITS/ML insulin pen 12 units SC BREAKFAST insulin aspart U-100 100 UNITS/ML insulin pen 12 units SC DINNER tiotropium bromide 18 MCG capsule, w/inhalation device 18 mcg IH BID omega-3 fatty acids-fish oil 1 EACH capsule 1 each PO DAILY ferrous gluconate 325 MG tablet 325 mg PO BIDCM ascorbic acid (vitamin C) 1,000 mg tablet 1,000 mg PO DAILY insulin glargine 100 UNIT/ML solution 12 unit SQ QHS lactobacillus comb no.10 1 EACH capsule 1 each PO BID albuterol sulfate 2.5 mg /3 mL (0.083 %) solution for nebulization 2.5 mg continuous nebulization QHS Label Comments: USE 1 VIAL IN NEBULIZER AT BEDTIME (DME) Handicap Parking Placard See Rx Instructions .Route .MEDSUPPLY Qty: 1 0RF Rx Instructions: As directed albuterol sulfate 90 mcg/actuation HFA aerosol inhaler 2 puff INHALATION Q4H PRN (Reason: fill as courtesy until 's office open) Qty: 18 0RF carvedilol 25 mg tablet 25 mg PO BID Qty: 180 3RF magnesium oxide 400 mg magnesium capsule 200 mg PO BID furosemide 20 mg tablet 20 mg PO DAILY Qty: 90 3RF spironolactone 25 mg tablet 25 mg PO QAM Qty: 90 3RF Primary Care Provider: Corin Hernandez Referrals: Corin Hernandez MD [Primary Care Provider] - Disposition Disposition: Acute Care Hospital [facility]
[2022-04-02 09:04] LABS: Absolute Lymphocyte Count 0.94 X10^3/uL (0.83-4.51); Absolute Neutrophil Count 5.8 X10^3/uL (2.0-7.7); Basophil# 0.03 X10^3/uL; Basophil% 0.4 % (0-1); Eosinophil# 0.13 X10^3/uL; Eosinophils% 1.7 % (0-5); Hematocrit 37.7 % (40-54); Hemoglobin 11.8 g/dL (13.0-16.5); Lymphocyte # 0.94 X10^3/ul (0.83-4.51); Lymphocyte % 12.5 % (19-41); Mean Corp Hgb Conc 31.3 g/dL (32-36); Mean Corpuscular Hgb 29.4 pg (27.0-32.0); Mean Platelet Vol. 10.5 fl (6.2-12.0); Monocyte# 0.59 X10^3/uL; Monocyte% 7.9 % (0-10); NRBC Flagged by Analyzer 0 % (0-5); Neutrophil # 5.77 X10^3/uL (2.7-7.7); Platelet Count 201 K/mm3 (150-450); RBC Distribution Width CV 14.8 % (11.6-14.6); RBC Distribution Width SD 49.9 fl (35.1-43.9); Red Blood Count 4.01 M/mm3 (4.6-6.2); White Blood Count 7.5 K/mm3 (4.4-11.0)
[2022-04-02 09:35] LABS: ALB/GLOB Ratio 0.9 RATIO (0.9-2.4); AST(SGOT) 24 U/L (15-37); Alanine Aminotransfer ALT/SGPT 22 U/L (16-61); Albumin, Serum 3.3 g/dL (3.2-5.0); Alkaline Phosphatase 83 U/L (45-117); Anion Gap 6 (5-15); BUN 34 mg/dL (7-18); BUN/Creat Ratio 16.8 RATIO (10-20); Calcium,Total 8.8 mg/dL (8.5-10.1); Chloride 111 mmol/L (98-107); Creatinine, Serum 2.02 mg/dL (0.70-1.30); EST Glomerular Filtration Rate 34 mL/min (>60); Est Glom Filt Rate - Afr Amer 41 mL/min (>60); Estimated Creatinine Clearance 32.22 ml/min; Globulin 3.6 g/dL (2.2-4.2); Glucose 155 mg/dL (74-106); Potassium 3.9 mmol/L (3.5-5.1); Protein, Total 6.9 g/dL (6.4-8.2); Sodium Level 140 mmol/L (136-145); Troponin-I HS 16 pg/mL (3.0-78.0)
--- NOTE | 2022-04-02 10:16 | HP.PCM.HOS_ITS ---
HPI - General General Date of Admission: 04/02/22 Date of Service: 04/02/22 Chief Complaint: Dizziness HPI Narrative RACHNA MAYES, is a 81 M with multiple comorbidities including V. fib arrest status post AICD placement, paroxysmal A. fib chronic kidney disease stage IV, essential hypertension dyslipidemia hypertension who presented with dizziness. Patient symptoms started on the morning of his presentation. He describes his dizziness as a spinning sensation. He also felt he had difficulty with his gait. In view of worsening symptoms he presented to the emergency department. Initial head CT obtained was negative for any acute intracranial bleed. Given patient's symptoms he was admitted to a monitored bed for work-up for possible posterior circulation CVA [facility] Medical History 65 years of age or older Anemia Atherosclerotic heart disease of [place] coronary artery without angina pectoris Atrial fibrillation Bacterial endocarditis Bilateral carotid bruits Cardiac arrest with ventricular fibrillation (06/2015) Cardiology follow-up encounter Carotid stenosis, left Chronic kidney disease (CKD) Chronic systolic (congestive) heart failure CKD (chronic kidney disease) stage 3, GFR 30-59 ml/min Congestive heart failure (CHF) COPD (chronic obstructive pulmonary disease) COVID-19 (06/01/21) CPAP (continuous positive airway pressure) dependence Dark stools Diabetes Dietary restriction Dizziness Elevated LFTs Essential (primary) hypertension Former smoker History of acute bacterial endocarditis History of echocardiogram History of stress test HLD (hyperlipidemia) Hypokalemia Hypothyroidism ICD (implantable cardioverter-defibrillator) in place Infection and inflammatory reaction due to other cardiac and vascular devices, implants and grafts, initial encounter Infectious endocarditis Insulin dependent diabetes mellitus Iron deficiency Irregular heart beat Ischemic cardiomyopathy Kidney disease Kidney stones Left bundle branch block Malignant pericardial effusion Night sweats Nonrheumatic mitral (valve) prolapse Paroxysmal atrial fibrillation Postoperative atrial fibrillation Primary idiopathic hypertrophic cardiomyopathy Thalamic mass Type II diabetes mellitus Wears dentures Wears glasses Wears hearing aid Home Medications cholecalciferol (vitamin D3) 25 mcg (1,000 unit) capsule 1,000 unit PO BID supplement 05/20/18 [History Last Taken 03/20/20 19:00 1000 units] ferrous gluconate 324 mg (37.5 mg iron) tablet 325 mg PO BIDCM iron supplement 05/20/18 [History Last Taken 03/20/20 19:00 325 mg] insulin aspart U-100 100 unit/mL (3 mL) subcutaneous pen 10 units subcut BREAKFAST DM 05/20/18 [History Last Taken 03/20/20 08:00 12 units] insulin aspart U-100 100 unit/mL (3 mL) subcutaneous pen 10 units subcut DINNER DM 05/20/18 [History Last Taken 03/20/20 18:00 12 units] levothyroxine 100 mcg tablet 100 mcg PO MOTUWETHFRSA hypothyroidism 05/20/18 [Hi story Last Taken 04/06/21] levothyroxine 100 mcg tablet 200 mcg PO JARVIS hypothyroidism 05/20/18 [History Last Taken 03/20/20 06:00 200 mcg] multivitamin 1 each PO DAILY supplement 05/20/18 [History Last Taken 03/20/20 08:00 1 each] omega-3 fatty acids-fish oil 300 mg-1,000 mg capsule 1 each PO DAILY supplement 05/20/18 [History Last Taken 03/20/20 08:00 1 each] tiotropium bromide 18 mcg capsule with inhalation device (Spiriva with HandiHaler) 18 mcg IH BID congestion 05/20/18 [History Last Taken 03/20/20 19:00 18 mcg] apixaban 2.5 mg tablet (Eliquis) 2.5 mg PO BID blood thinner 06/29/20 [History Last Taken Unknown] Handicap Parking Placard #1 ea 08/25/20 [Rx Last Taken Unknown] albuterol sulfate 90 mcg/actuation aerosol inhaler 2 puff inhalation Q4H PRN fill as courtesy until 's office open #18 grams 11/22/20 [Rx Last Taken Unknown] insulin glargine 100 unit/mL subcutaneous solution 10 unit SQ QHS DM 11/24/20 [History Last Taken Unknown] lactobacillus comb no.10 20 billion cell capsule 1 each PO BID supplement 11/24/20 [History Last Taken Unknown] ascorbic acid (vitamin C) 1,000 mg tablet 1,000 mg PO DAILY supplement 12/29/20 [History Last Taken Unknown] fluticasone propionate 50 mcg/actuation nasal spray,suspension (Flonase Allergy Relief) 2 spray intranasal DAILY congestion 12/29/20 [History Last Taken Unknown] albuterol sulfate 2.5 mg/3 mL (0.083 %) solution for nebulization 2.5 mg continuous nebulization QHS breathing 01/30/21 [History Last Taken Unknown] carvedilol 25 mg tablet 25 mg PO BID heart #180 tabs 11/28/21 [Rx Last Taken Unknown] mometasone 200 mcg/actuation HFA aerosol inhaler (Asmanex HFA) 2 puff inhalation BID 01/19/22 [History Last Taken Unknown] magnesium oxide 200 mg PO BID supplement 02/01/22 [History Last Taken Unknown] furosemide 20 mg tablet 20 mg PO DAILY water pill #90 tabs 02/06/22 [Rx Last Taken Unknown] spironolactone 25 mg tablet 25 mg PO QAM #90 tabs 02/06/22 [Rx Last Taken Unknown] atorvastatin 10 mg tablet 10 mg PO QHS cholesterol #90 tabs 03/06/22 [Rx Last Taken Unknown] empagliflozin 25 mg tablet (Jardiance) 25 mg PO DAILY 03/24/22 [History Last Taken Unknown] diltiazem HCl 120 mg capsule,extended release 24 hr (Cardizem CD) 120 mg PO DAILY 04/02/22 [History Last Taken Unknown] Allergy/AdvReac Type Severity Reaction Status Date / Time latex Allergy Other Verified 04/02/22 08:32 LAURA Inhibitors AdvReac Intermediate cough Verified 04/02/22 08:32 enalapril AdvReac Intermediate Shortness Verified 04/02/22 08:32 of breath adhesive tape AdvReac rash Verified 04/02/22 08:32 azithromycin AdvReac Other Verified 04/02/22 08:32 [From Zithromax Z-Robert] levofloxacin [From Levaquin] AdvReac Other Verified 04/02/22 08:32 warfarin [From Coumadin] AdvReac bleeding Verified 04/02/22 08:32 under the skin Family History Father , age 47 from peritonitis Peritonitis Mother , age 93 CVA (cerebral vascular accident) several TIA's Surgical History Abnormal fractional flow reserve (FFR) on cardiac catheterization (02/2017) H/O coronary artery bypass surgery (04/27/17) History of appendectomy History of cardioversion (04/2017) History of implantable cardiac defibrillator (ICD) (03/17/22) History of left heart catheterization History of partial amputation of left hand Hx of bilateral cataract extraction Hx of cholecystectomy Hx of prostatectomy ICD (implantable cardioverter-defibrillator) infection Social History household members: spouse Smoking Status: Former smoker how long ago did patient quit smoking: Quit ~ 50 years prior, prior to quitting up to 4 ppd since [age] years old. alcohol intake: never substance use type: does not use caffeine: No what type of physical activity do you participate in: walking frequency: 5-6 times per week duration: 15-30 minutes/day seatbelt use: always do you feel safe at home: Yes ROS ROS Narrative GENERAL: denies fever, chills, night sweats, weight loss, anorexia HEENT: denies headache, sinus congestion, or drainage, dysphagia RESPIRATORY: denies cough, sputum production, shortness of breath, dyspnea on exertion CARDIAC: denies chest pain, palpitations, orthopnea, PND GASTROINTESTINAL: denies abdominal pain, nausea, vomiting, melena, GENITOURINARY: denies dysuria, urgency, frequency, heamaturia EXTREMITY: denies swelling MUSCULOSKELETAL: denies current joint pain or tenderness NEUROLOGIC: denies focal numbness, weakness, tingling HEMATOLOGIC: denies easy bruising and/or hemorrhage INTEGUMENT: denies rashes PSYCHIATRIC: denies suicidal or homicidal ideation Vital Signs Vital Signs Vital Signs: 04/02/22 08:31 04/02/22 10:10 Temperature 98.0 F 98.3 F Temperature Source Temporal Temporal Pulse Rate 68 88 Respiratory Rate 18 19 H Blood Pressure 102/49 L 145/76 H Blood Pressure Mean 66 99 Pulse Ox 99 98 Oxygen Delivery Method Room Air Room Air Weight Weight: 95.254 kg Body Mass Index (BMI) 26.9 Physical Exam Narrative GENERAL: cooperative HEENT: Atraumatic; EYES; Anicteric, Normal Conjunctiva NECK; supple, normal thyroid, RESPIRATORY: Diminished to auscultation CARDIOVASCULAR: Regular S1 S2, GI: soft, normoactive bowel sounds, : No Renal angle tenderness; EXTREMITIES: No edema, no clubbing, MUSCULOSKELETAL: Prosthetic left fingers NEURO: Awake; no lateralizing signs. SKIN: No Rash PSYCH; Flat affect Results Lab / Micro Data Result Diagrams: 04/02/22 09:00 04/02/22 09:00 Labs: Laboratory Results - last 24 hr 04/02/22 09:00: WBC 7.5, RBC 4.01 L, Hgb 11.8 L, Hct 37.7 L, MCV 94.0, MCH 29.4, MCHC 31.3 L, RDW Std Deviation 49.9 H, RDW Coeff of Harrison 14.8 H, Plt Count 201, MPV 10.5, Immature Gran % (Auto) 0.500, Neut % (Auto) 77.0 H, Lymph % (Auto) 12.5 L, [place] % (Auto) 7.9, Eos % (Auto) 1.7, Baso % (Auto) 0.4, Absolute Neuts (auto) 5.8, Absolute Lymphs (auto) 0.94, Nucleated RBC % 0 04/02/22 09:00: Sodium 140, Potassium 3.9, Chloride 111 H, Carbon Dioxide 23.0, Anion Gap 6, BUN 34 H, Creatinine 2.02 H, Estim Creat Clear Calc 32.22, Est GFR (MDRD) Af Amer 41 L, Est GFR (MDRD) Non-Af 34 L, BUN/Creatinine Ratio 16.8, Glucose 155 H, Calcium 8.8, Total Bilirubin 0.30, AST 24, ALT 22, Alkaline Phosphatase 83, Troponin I High Sens 16, Total Protein 6.9, Albumin 3.3, Globulin 3.6, Albumin/Globulin Ratio 0.[address] 04/02/22 08:46 IMPRESSION: No acute intracranial abnormality. No interval change. Electronically Signed: Mihir Gonzalez MD at 9:52 EDT , Assessment & Plan Assessment/Plan (1) Vertigo: PLAN: Plan RACHNA MAYES, is a 81 M with multiple comorbidities including V. fib arrest status post AICD placement, paroxysmal A. fib chronic kidney disease stage IV, essential hypertension dyslipidemia hypertension who presented with dizziness 1. Acute vertigo ? Patient has been admitted to a monitored bed currently undergoing evaluation to rule out posterior circulation CVA. As part of patient's management ordered bilateral carotid artery duplex. Also ordered MRI however patient has an AICD and this may need to be turned off prior to patient undergoing any subsequent evaluation with an MRI. Patient is currently on antiplatelet therapy, apixaban and statin therapy did continue. Repeat echo not ordered he had an echo in January 01, 2022 which demonstrated moderate concentric left ventricular hypertrophy EF of 40% and septal wall motion consistent with IV CAD and pulmonary systolic arterial pressure of 38 2. Carotid artery disease ? With history of left carotid endarterectomy with bovine patch angioplasty on 04/06/[address] Khai Antony on account of Symptomatic critical stenosis left extracranial internal carotid artery 3.? History of pathological arrhythmias ?V. fib resulting in cardiac arrest in July 2015 status post AICD implantation 4.? Hypertension - Blood pressure controlled, home medications continued with dose adjustment as needed 5.? Paroxysmal A. fib -Rate controlled.? On systemic anticoagulation with apixaban, plan is to resume when okay with Dr. Antony with vascular surgery 6.? Hypothyroidism - Patient is on levothyroxine home dose continued 7.? Diabetes mellitus type II -patient's oral hypoglycemics held. Placed on long acting insulin, Accu-Cheks a.c. and at bedtime and covered with sliding scale insulin 8.? Chronic kidney disease stage IIIB ?Secondary to diabetic nephropathy plan is to monitor with daily BMPs 9.? Anemia - Secondary to chronic disorder monitoring H&H and transfuse if patient becomes symptomatic or hemoglobin falls below? 7 9. Dyslipidemia -Patient is on statin therapy, continued at home dose 10. DVT prophylaxis ? On apixaban Charges/Coding Visit Charges OBSV E&M: 81823 Initial observation care L3
--- NOTE | 2022-04-02 11:11 | CDU_ITS ---
Reason For Study: ataxia Rt. Velocities/BP Lt. Velocities/BP Prox CCA 55.2/8.2 cm/sec. Prox CCA 59.1/17.3 cm/sec. Mid CCA 66.9/8.2 cm/sec. Mid CCA 69.5/10.8 cm/sec. Dist CCA 69.5/6.9 cm/sec. Dist CCA 73.4/10.8 cm/sec. Prox ICA 57.8/13.4 cm/sec. Prox ICA 78.6/13.4 cm/sec. Mid ICA 79.9/17.3 cm/sec. Mid ICA 135.7/20.6 cm/sec. Dist ICA 76.0/16.0 cm/sec. Dist ICA 110.1/20.6 cm/sec. Rt. ICA/CCA = 1.2. Lt. ICA/CCA = 2.0. Prox ECA 73.4 cm/sec. Prox ECA 82.5 cm/sec. Rt. Vert. 61.7/9.5 cm/sec. Lt. Vert. 43.2/5.8 cm/sec. Right Extracranial There is heterogeneous, irregular atherosclerotic plaque noted in the right common carotid artery. There is heterogeneous, irregular atherosclerotic plaque noted in the right internal carotid artery. There is heterogeneous, irregular atherosclerotic plaque noted in the right external carotid artery. Antegrade flow is noted in the right vertebral artery. Left Extracranial There is heterogeneous, irregular atherosclerotic plaque noted in the left common carotid artery. There is heterogeneous, irregular atherosclerotic plaque noted in the left internal carotid artery. There is intimal thickening but no significant atherosclerotic plaque noted in the left external carotid artery. Procedure Carotid Duplex 60124. This is a Carotid Duplex examination using B-mode, color flow and specral Doppler. The exam was diagnostic. Exam performed portable in patient room. VL/Carotid Duplex Ultrasound Interpretation Summary Minimal plaque at the proximal right internal carotid artery with less than 50% stenosis Less than 50% stenosis right external carotid artery Minimal irregular plaque at the proximal left internal carotid artery with post operative changes noted. Velocity slightly elevated within the left mid internal carotid artery w hich would correlate with 50 to 69% stenosis. This occurs at the time of an ectopic beat and may be an overestimation. Less than 50% stenosis left external carotid artery Patent antegrade vertebral arteries bilaterally Ordering Physician: Allen Mckenzie Performed By: Melvin Morales RVT
[2022-04-02] MEDS: 0.9% Normal Saline 1,000 ML 75 ML IV (11:58)
[2022-04-02 12:15] LABS: Bedside Glucose 75 mg/dL (74-106)
[2022-04-02] MEDS: Ipratropium/Albuterol Sulfate 3 ML AMPUL.NEB INHALATION ×2 (13:57→20:30)
--- NOTE | 2022-04-02 14:13 | NURSING ---
Spoke with Marta in MRI. Marta stated that MRI would have to be done tomorrow when a pacemaker rep could be consulted.
[2022-04-02] MEDS: Insulin Lispro 100 UNIT/ML INSULN.PEN 10 UNIT SC (16:59)
[2022-04-02] MEDS: guaiFENesin Dm 10 ML UDC PO ×2 (16:59→22:20)
[2022-04-02] MEDS: Ferrous Gluconate 324 MG Tablet PO (16:59)
[2022-04-02] MEDS: Insulin Lispro 100 UNIT/ML INSULN.PEN SC ×2 (16:59→21:02)
[2022-04-02 17:45] LABS: Bedside Glucose 185 mg/dL (74-106)
[2022-04-02] MEDS: Budesonide Respules 0.5 MG/2 ML AMPUL.NEB. INHALATION (20:30)
[2022-04-02] MEDS: Famotidine 20 MG Tablet PO (20:59)
[2022-04-02] MEDS: MELATONIN 3 MG TABLET PO (20:59)
[2022-04-02] MEDS: Carvedilol 25 MG Tablet PO (20:59)
[2022-04-02] MEDS: Atorvastatin Calcium 40 MG Tablet PO (20:59)
[2022-04-02] MEDS: Insulin Glargine-YFGN 100 UNIT/ML Pen 10 UNIT SC (21:00)
[2022-04-02] MEDS: APIXABAN 2.5 MG TABLET PO (22:20)
[2022-04-03] VITALS (14 sets, daily range): BP systolic 142–166; BP diastolic 61–110; PULSE 66–79; RESP 14–18; TEMP 35.7–37.1; O2SAT 96–99; BMI 26.9
[2022-04-03 00:35] LABS: Bedside Glucose 154 mg/dL (74-106)
[2022-04-03 05:43] LABS: Absolute Lymphocyte Count 0.83 X10^3/uL (0.83-4.51); Absolute Neutrophil Count 5.6 X10^3/uL (2.0-7.7); Basophil# 0.04 X10^3/uL; Basophil% 0.6 % (0-1); Eosinophil# 0.16 X10^3/uL; Eosinophils% 2.2 % (0-5); Hematocrit 36.3 % (40-54); Hemoglobin 11.7 g/dL (13.0-16.5); Lymphocyte # 0.83 X10^3/ul (0.83-4.51); Lymphocyte % 11.5 % (19-41); Mean Corp Hgb Conc 32.2 g/dL (32-36); Mean Corpuscular Hgb 29.7 pg (27.0-32.0); Mean Corpuscular Volume 92.1 fL (80-94); Mean Platelet Vol. 9.6 fl (6.2-12.0); Monocyte# 0.58 X10^3/uL; NRBC Flagged by Analyzer 0 % (0-5); Neutrophil # 5.58 X10^3/uL (2.7-7.7); Neutrophil % 77.1 % (47-70); Platelet Count 186 K/mm3 (150-450); RBC Distribution Width CV 14.8 % (11.6-14.6); RBC Distribution Width SD 49.6 fl (35.1-43.9); Red Blood Count 3.94 M/mm3 (4.6-6.2); White Blood Count 7.2 K/mm3 (4.4-11.0)
[2022-04-03 06:23] LABS: Anion Gap 5 (5-15); BUN 34 mg/dL (7-18); BUN/Creat Ratio 20.4 RATIO (10-20); Calcium,Total 8.2 mg/dL (8.5-10.1); Chloride 109 mmol/L (98-107); Cholesterol 114 mg/dL (200); Creatinine, Serum 1.67 mg/dL (0.70-1.30); EST Glomerular Filtration Rate 42 mL/min (>60); Est Glom Filt Rate - Afr Amer 51 mL/min (>60); Estimated Creatinine Clearance 38.97 ml/min; Glucose 134 mg/dL (74-106); High Density Lipoprotein 53 mg/dL; Magnesium 1.8 mg/dL (1.6-2.6); Potassium 3.8 mmol/L (3.5-5.1); Sodium Level 140 mmol/L (136-145); Triglycerides 93 mg/dL; Very Low Density Lipoprotein 19 mg/dL (5-40)
[2022-04-03] MEDS: Levothyroxine 100 MCG Tablet PO (06:32)
[2022-04-03] MEDS: Budesonide Respules 0.5 MG/2 ML AMPUL.NEB. INHALATION ×2 (06:50→19:39)
[2022-04-03] MEDS: Ipratropium/Albuterol Sulfate 3 ML AMPUL.NEB INHALATION ×3 (06:50→19:39)
[2022-04-03 06:55] LABS: Bedside Glucose 116 mg/dL (74-106)
--- NOTE | 2022-04-03 07:40 | PCM.PN.HOSP ---
Subjective Subjective Patient seen dizziness appears to have resolved. Improvement in kidney function. Plan is for patient to undergo MRI of the brain to rule out posterior circulation CVA once his AICD has been turned off Objective Data Objective Data Vital Signs: Vital Signs Temp Pulse Resp BP Pulse Ox O2 Del Method 97.6 F L 79 18 166/86 H 98 Room Air 04/03/22 06:30 04/03/22 06:51 04/03/22 06:51 04/03/22 06:30 04/03/22 06:51 04/03/22 06:51 Oxygen Delivery Method Room Air Weight: 95.283 kg Body Mass Index (BMI) 26.9 Intake & Output: Intake and Output for Last 24 Hours 04/01/22 04/02/22 04/03/22 23:59 23:59 23:59 Intake Total 1420 / 1420 1000 / 1000 Balance 1420 / 1420 1000 / 1000 Lab / Micro Data Result Diagrams: 04/03/22 04:40 04/03/22 04:40 Labs: Laboratory Results - last 24 hr 04/02/22 09:00: WBC 7.5, RBC 4.01 L, Hgb 11.8 L, Hct 37.7 L, MCV 94.0, MCH 29.4, MCHC 31.3 L, RDW Std Deviation 49.9 H, RDW Coeff of Harrison 14.8 H, Plt Count 201, MPV 10.5, Immature Gran % (Auto) 0.500, Neut % (Auto) 77.0 H, Lymph % (Auto) 12.5 L, [place] % (Auto) 7.9, Eos % (Auto) 1.7, Baso % (Auto) 0.4, Absolute Neuts (auto) 5.8, Absolute Lymphs (auto) 0.94, Nucleated RBC % 0 04/02/22 09:00: Sodium 140, Potassium 3.9, Chloride 111 H, Carbon Dioxide 23.0, Anion Gap 6, BUN 34 H, Creatinine 2.02 H, Estim Creat Clear Calc 32.22, Est GFR (MDRD) Af Amer 41 L, Est GFR (MDRD) Non-Af 34 L, BUN/Creatinine Ratio 16.8, Glucose 155 H, Calcium 8.8, Total Bilirubin 0.30, AST 24, ALT 22, Alkaline Phosphatase 83, Troponin I High Sens 16, Total Protein 6.9, Albumin 3.3, Globulin 3.6, Albumin/Globulin Ratio 0.9 04/02/22 11:34: POC Glucose 75 04/02/22 16:36: POC Glucose 185 H 04/02/22 20:51: POC Glucose 154 H 04/03/22 04:40: WBC 7.2, RBC 3.94 L, Hgb 11.7 L, Hct 36.3 L, MCV 92.1, MCH 29.7, MCHC 32.2, RDW Std Deviation 49.6 H, RDW Coeff of [place] 14.8 H, Plt Count 186, MPV 9.6, Immature Gran % (Auto) 0.600, Neut % (Auto) 77.1 H, Lymph % (Auto) 11.5 L, [place] % (Auto) 8.0, Eos % (Auto) 2.2, Baso % (Auto) 0.6, Absolute Neuts (auto) 5.6, Absolute Lymphs (auto) 0.83, Nucleated RBC % 0 04/03/22 04:40: Sodium 140, Potassium 3.8, Chloride 109 H, Carbon Dioxide 26.0, Anion Gap 5, BUN 34 H, Creatinine 1.67 H, Estim Creat Clear Calc 38.97, Est GFR (MDRD) Af Amer 51 L, Est GFR (MDRD) Non-Af 42 L, BUN/Creatinine Ratio 20.4 H, Glucose 134 H, Calcium 8.2 L, Magnesium 1.8, Triglycerides 93, Cholesterol 114, LDL Cholesterol 42, VLDL Cholesterol 19, HDL Cholesterol 53 04/03/22 06:29: POC Glucose 116 H Radiography Diagnostic Testing: Radiology Impression Brain CT 04/02/22 08:46 IMPRESSION: No acute intracranial abnormality. No interval change. Electronically Signed: Mihir Gonzalez MD at 9:52 EDT , Physical Exam Narrative GENERAL: cooperative HEENT: Atraumatic; EYES; Anicteric, Normal Conjunctiva NECK; supple, normal thyroid, RESPIRATORY: Diminished to auscultation CARDIOVASCULAR: Regular S1 S2, GI: soft, normoactive bowel sounds, : No Renal angle tenderness; EXTREMITIES: No edema, no clubbing, MUSCULOSKELETAL: Prosthetic left fingers NEURO: Awake; no lateralizing signs. SKIN: No Rash PSYCH; Flat affect Assessment & Plan Assessment/Plan (1) Vertigo: PLAN: Plan RACHNA MAYES, is a 81 M with multiple comorbidities including V. fib arrest status post AICD placement, paroxysmal A. fib chronic kidney disease stage IV, essential hypertension dyslipidemia hypertension who presented with dizziness 1. Acute vertigo ? Patient has been admitted to a monitored bed currently undergoing evaluation to rule out posterior circulation CVA. As part of patient's management ordered bilateral carotid artery duplex. Also ordered MRI however patient has an AICD and this may need to be turned off prior to patient undergoing any subsequent evaluation with an MRI. Patient is currently on antiplatelet therapy, apixaban and statin therapy did continue. Repeat echo not ordered he had an echo in January 01, 2022 which demonstrated moderate concentric left ventricular hypertrophy EF of 40% and septal wall motion consistent with IV CAD and pulmonary systolic arterial pressure of 38 -04/03/2022 patient seen dizziness appears to have resolved. Improvement in kidney function. Plan is for patient to undergo MRI of the brain to rule out posterior circulation CVA once his AICD has been turned off (scheduled for 04/04/2022) 2. Carotid artery disease ? With history of left carotid endarterectomy with bovine patch angioplasty on 04/06/[address] Khai Antony on account of Symptomatic critical stenosis left extracranial internal carotid artery 3.? History of pathological arrhythmias ?V. fib resulting in cardiac arrest in July 2015 status post AICD implantation 4.? Hypertension - Blood pressure controlled, home medications continued with dose adjustment as needed 5.? Paroxysmal A. fib -Rate controlled.? On systemic anticoagulation with apixaban, plan is to resume when okay with Dr. Antony with vascular surgery 6.? Hypothyroidism - Patient is on levothyroxine home dose continued 7.? Diabetes mellitus type II -patient's oral hypoglycemics held. Placed on long acting insulin, Accu-Cheks a.c. and at bedtime and covered with sliding scale insulin 8.? Acute renal insufficiency superimposed on chronic kidney disease stage IIIB ?Secondary to diabetic nephropathy plan is to monitor with daily BMPs ? 04/03/2022 patient presented with worsening kidney function improved with rehydration and adjustment of medications. We will continue with subsequent monitoring with daily BMPs 9.? Anemia - Secondary to chronic disorder monitoring H&H and transfuse if patient becomes symptomatic or hemoglobin falls below? 7 9. Dyslipidemia -Patient is on statin therapy, continued at home dose 10. DVT prophylaxis ? On apixaban Charges/Coding Visit Charges OBSV E&M: 95148 Subsequent observation care L3
[2022-04-03] MEDS: Aspirin 81 MG TAB.CHEW PO (08:58)
[2022-04-03] MEDS: Ferrous Gluconate 324 MG Tablet PO ×2 (08:58→16:46)
[2022-04-03] MEDS: APIXABAN 2.5 MG TABLET PO ×2 (08:59→22:15)
[2022-04-03] MEDS: dilTIAZem CD 120 MG Capsule PO (08:59)
[2022-04-03] MEDS: Carvedilol 25 MG Tablet PO ×2 (08:59→22:15)
[2022-04-03] MEDS: Famotidine 20 MG Tablet PO ×2 (09:00→22:15)
[2022-04-03] MEDS: Insulin Lispro 100 UNIT/ML INSULN.PEN 10 UNIT SC ×2 (09:01→16:46)
[2022-04-03] MEDS: Fluticasone 0.05% 1 SPRAY NASAL.SRY 2 SPRAY NASAL (09:05)
[2022-04-03] MEDS: guaiFENesin Dm 10 ML UDC PO ×2 (10:52→22:16)
[2022-04-03] MEDS: Insulin Lispro 100 UNIT/ML INSULN.PEN SC ×2 (10:53→16:46)
--- NOTE | 2022-04-03 11:01 | CASEMGMT ---
This RN JANAY to room with KEARNS form, explanation done-pt voices understanding, and signs KEARNS form. Original to chart and copy to pt. Pt has MCR IP vs OBS booklet at bedside. Pt/ voice no further questions/concerns/needs. SStaten STEFANO CM
[2022-04-03 11:15] LABS: Bedside Glucose 203 mg/dL (74-106)
[2022-04-03 18:06] LABS: Bedside Glucose 177 mg/dL (74-106)
[2022-04-03] MEDS: Atorvastatin Calcium 40 MG Tablet PO (22:14)
[2022-04-03] MEDS: Insulin Glargine-YFGN 100 UNIT/ML Pen 10 UNIT SC (22:15)
[2022-04-04] VITALS (12 sets, daily range): BP systolic 120–166; BP diastolic 60–78; PULSE 62–89; RESP 12–20; TEMP 36–36.6; O2SAT 97–99; BMI 26.9
--- NOTE | 2022-04-04 00:37 | CPS ---
Pt wears cpap at home , Sleep Lab resmed machine in use with Cpap 14 which is what patient stated he wears at home.
[2022-04-04 02:11] LABS: Bedside Glucose 148 mg/dL (74-106)
[2022-04-04] MEDS: Levothyroxine 100 MCG Tablet PO (06:31)
[2022-04-04 06:50] LABS: Bedside Glucose 129 mg/dL (74-106)
--- NOTE | 2022-04-04 07:45 | PN.HOSP_ITS ---
Subjective Subjective Patient seen has not had recurrence of his dizzy spells. MRI scheduled to be performed today. Objective Data Objective Data Vital Signs: Vital Signs Temp Pulse Resp BP Pulse Ox O2 Del Method 97.7 F L 68 18 155/78 H 99 CPAP 04/04/22 06:30 04/04/22 06:30 04/04/22 06:30 04/04/22 06:30 04/04/22 06:30 04/04/22 06:30 Oxygen Delivery Method CPAP Weight: 95.283 kg Body Mass Index (BMI) 26.9 Intake & Output: Intake and Output for Last 24 Hours 04/02/22 04/03/22 04/04/22 23:59 23:59 23:59 Intake Total 1420 / 1420 2175 / 2175 Balance 1420 / 1420 2175 / 2175 Lab / Micro Data Result Diagrams: 04/03/22 04:40 04/03/22 04:40 Labs: Laboratory Results - last 24 hr 04/03/22 10:52: POC Glucose 203 H 04/03/22 16:43: POC Glucose 177 H 04/03/22 22:07: POC Glucose 148 H 04/04/22 06:28: POC Glucose 129 H Radiography Diagnostic Testing: Radiology Impression Carotid Duplex 04/02/22 11:11 Interpretation Summary Minimal plaque at the proximal right internal carotid artery with less than 50% stenosis Less than 50% stenosis right external carotid artery Minimal irregular plaque at the proximal left internal carotid artery with postoperative changes noted. Velocity slightly elevated within the left mid internal carotid artery which would correlate with 50 to 69% stenosis. This occurs at the time of an ectopic beat and may be an overestimation. Less than 50% stenosis left external carotid artery Patent antegrade vertebral arteries bilaterally Ordering Physician: Allen Mckenzie Performed By: Melvin Morales RVT Physical Exam Narrative GENERAL: cooperative HEENT: Atraumatic; EYES; Anicteric, Normal Conjunctiva NECK; supple, normal thyroid, RESPIRATORY: Diminished to auscultation CARDIOVASCULAR: Regular S1 S2, GI: soft, normoactive bowel sounds, : No Renal angle tenderness; EXTREMITIES: No edema, no clubbing, MUSCULOSKELETAL: Prosthetic left fingers NEURO: Awake; no lateralizing signs. SKIN: No Rash PSYCH; Flat affect Assessment & Plan Assessment/Plan (1) Vertigo: PLAN: Plan ALLEN MAYES, is a 81 M with multiple comorbidities including V. fib arrest status post AICD placement, paroxysmal A. fib chronic kidney disease stage IV, essential hypertension dyslipidemia hypertension who presented with dizziness 1. Acute vertigo ? Patient has been admitted to a monitored bed currently undergoing evaluation to rule out posterior circulation CVA. As part of patient's management ordered bilateral carotid artery duplex. Also ordered MRI however patient has an AICD and this may need to be turned off prior to patient undergoing any subsequent evaluation with an MRI. Patient is currently on antiplatelet therapy, apixaban and statin therapy did continue. Repeat echo not ordered he had an echo in January 01, 2022 which demonstrated moderate concentric left ventricular hypertrophy EF of 40% and septal wall motion consistent with IV CAD and pulmonary systolic arterial pressure of 38 -04/03/2022 patient seen dizziness appears to have resolved. Improvement in kidney function. Plan is for patient to undergo MRI of the brain to rule out posterior circulation CVA once his AICD has been turned off (scheduled for 04/04/2022) -04/04/2022; Patient seen has not had recurrence of his dizzy spells. MRI scheduled to be performed today 2. Carotid artery disease ? With history of left carotid endarterectomy with bovine patch angioplasty on 04/06/[address] Khai Antony on account of Symptomatic critical stenosis left extracranial internal carotid artery 3.? History of pathological arrhythmias ?V. fib resulting in cardiac arrest in July 2015 status post AICD implantation 4.? Hypertension - Blood pressure controlled, home medications continued with dose adjustment as needed 5.? Paroxysmal A. fib -Rate controlled.? On systemic anticoagulation with apixaban, plan is to resume when okay with Dr. Antony with vascular surgery 6.? Hypothyroidism - Patient is on levothyroxine home dose continued 7.? Diabetes mellitus type II -patient's oral hypoglycemics held. Placed on long acting insulin, Accu-Cheks a.c. and at bedtime and covered with sliding scale insulin 8.? Acute renal insufficiency superimposed on chronic kidney disease stage IIIB ?Secondary to diabetic nephropathy plan is to monitor with daily BMPs ? 04/03/2022 patient presented with worsening kidney function improved with rehydration and adjustment of medications. We will continue with subsequent monitoring with daily BMPs 9.? Anemia - Secondary to chronic disorder monitoring H&H and transfuse if patient becomes symptomatic or hemoglobin falls below? 7 9. Dyslipidemia -Patient is on statin therapy, continued at home dose 10. DVT prophylaxis ? On apixaban Charges/Coding Visit Charges OBSV E&M: 68431 Subsequent observation care L2
[2022-04-04] MEDS: Aspirin 81 MG TAB.CHEW PO (08:44)
[2022-04-04] MEDS: Carvedilol 25 MG Tablet PO ×2 (08:44→21:57)
[2022-04-04] MEDS: Famotidine 20 MG Tablet PO ×2 (08:45→21:57)
[2022-04-04] MEDS: dilTIAZem CD 120 MG Capsule PO (08:45)
[2022-04-04] MEDS: Ferrous Gluconate 324 MG Tablet PO ×2 (08:45→17:29)
[2022-04-04] MEDS: APIXABAN 2.5 MG TABLET PO ×2 (08:45→21:57)
[2022-04-04] MEDS: Insulin Lispro 100 UNIT/ML INSULN.PEN 10 UNIT SC ×2 (08:47→17:30)
[2022-04-04] MEDS: guaiFENesin Dm 10 ML UDC PO ×2 (09:35→20:28)
[2022-04-04 11:10] LABS: Anion Gap 6 (5-15); BUN 31 mg/dL (7-18); BUN/Creat Ratio 17.8 RATIO (10-20); Calcium,Total 9.2 mg/dL (8.5-10.1); Chloride 109 mmol/L (98-107); Creatinine, Serum 1.74 mg/dL (0.70-1.30); EST Glomerular Filtration Rate 40 mL/min (>60); Est Glom Filt Rate - Afr Amer 48 mL/min (>60); Glucose 237 mg/dL (74-106); Potassium 4.3 mmol/L (3.5-5.1); Sodium Level 139 mmol/L (136-145)
[2022-04-04] MEDS: Insulin Lispro 100 UNIT/ML INSULN.PEN SC ×2 (11:44→17:29)
[2022-04-04 12:05] LABS: Bedside Glucose 217 mg/dL (74-106)
[2022-04-04] MEDS: Ipratropium/Albuterol Sulfate 3 ML AMPUL.NEB INHALATION ×2 (12:53→19:39)
--- NOTE | 2022-04-04 16:06 | CASEMGMT ---
SW completed a PHQ 9 with patient as he may have had a TIA. Patient scored a 1 which indicates minimal depression. Angela GEORGE
[2022-04-04 18:00] LABS: Bedside Glucose 164 mg/dL (74-106)
[2022-04-04] MEDS: Budesonide Respules 0.5 MG/2 ML AMPUL.NEB. INHALATION (19:39)
[2022-04-04] MEDS: Insulin Glargine-YFGN 100 UNIT/ML Pen 10 UNIT SC (21:56)
[2022-04-04] MEDS: Atorvastatin Calcium 40 MG Tablet PO (21:57)
[2022-04-04 22:26] LABS: Bedside Glucose 157 mg/dL (74-106)
[2022-04-05] VITALS (13 sets, daily range): BP systolic 89–150; BP diastolic 46–86; PULSE 48–89; RESP 11–96; TEMP 35.9–36.8; O2SAT 93–99; BMI 26.9
--- NOTE | 2022-04-05 03:46 | CPS ---
Pt has sleep lab machine
[2022-04-05] MEDS: Levothyroxine 100 MCG Tablet PO (05:45)
[2022-04-05] MEDS: 0.9% Saline Lock 10 ML Syringe IV ×2 (05:46→08:38)
[2022-04-05] MEDS: Budesonide Respules 0.5 MG/2 ML AMPUL.NEB. INHALATION (07:18)
[2022-04-05] MEDS: Ipratropium/Albuterol Sulfate 3 ML AMPUL.NEB INHALATION ×2 (07:18→13:12)
--- NOTE | 2022-04-05 07:59 | PCM.PN.HOSP ---
Subjective Subjective Scheduled to undergo MRI of the brain if negative patient will be assessed for possible discharge Objective Data Objective Data Vital Signs: Vital Signs Temp Pulse Resp BP Pulse Ox O2 Del Method 96.6 F L 68 16 136/67 H 98 Room Air 04/05/22 05:45 04/05/22 07:00 04/05/22 05:45 04/05/22 05:45 04/05/22 05:45 04/05/22 05:45 Oxygen Delivery Method Room Air Weight: 95.283 kg Body Mass Index (BMI) 26.9 Intake & Output: Intake and Output for Last 24 Hours 04/03/22 04/04/22 04/05/22 23:59 23:59 23:59 Intake Total 2175 / 2175 600 / 600 Balance 2175 / 2175 600 / 600 Lab / Micro Data Result Diagrams: 04/03/22 04:40 04/04/22 10:20 Labs: Laboratory Results - last 24 hr 04/04/22 10:20: Sodium 139, Potassium 4.3, Chloride 109 H, Carbon Dioxide 24.0, Anion Gap 6, BUN 31 H, Creatinine 1.74 H, Estim Creat Clear Calc 37.40, Est GFR (MDRD) Af Amer 48 L, Est GFR (MDRD) Non-Af 40 L, BUN/Creatinine Ratio 17.8, Glucose 237 H, Calcium 9.2 04/04/22 11:37: POC Glucose 217 H 04/04/22 17:26: POC Glucose 164 H 04/04/22 21:56: POC Glucose 157 H Physical Exam Narrative GENERAL: cooperative HEENT: Atraumatic; EYES; Anicteric, Normal Conjunctiva NECK; supple, normal thyroid, RESPIRATORY: Diminished to auscultation CARDIOVASCULAR: Regular S1 S2, GI: soft, normoactive bowel sounds, : No Renal angle tenderness; EXTREMITIES: No edema, no clubbing, MUSCULOSKELETAL: Prosthetic left fingers NEURO: Awake; no lateralizing signs. SKIN: No Rash PSYCH; Flat affect Assessment & Plan Assessment/Plan (1) Vertigo: PLAN: Plan RACHNA MAYES, is a 81 M with multiple comorbidities including V. fib arrest status post AICD placement, paroxysmal A. fib chronic kidney disease stage IV, essential hypertension dyslipidemia hypertension who presented with dizziness 1. Acute vertigo ? Patient has been admitted to a monitored bed currently undergoing evaluation to rule out posterior circulation CVA. As part of patient's management ordered bilateral carotid artery duplex. Also ordered MRI however patient has an AICD and this may need to be turned off prior to patient undergoing any subsequent evaluation with an MRI. Patient is currently on antiplatelet therapy, apixaban and statin therapy did continue. Repeat echo not ordered he had an echo in January 01, 2022 which demonstrated moderate concentric left ventricular hypertrophy EF of 40% and septal wall motion consistent with IV CAD and pulmonary systolic arterial pressure of 38 -04/03/2022 patient seen dizziness appears to have resolved. Improvement in kidney function. Plan is for patient to undergo MRI of the brain to rule out posterior circulation CVA once his AICD has been turned off (scheduled for 04/04/2022) -04/04/2022; Patient seen has not had recurrence of his dizzy spells. MRI scheduled to be performed today 2. Carotid artery disease ? With history of left carotid endarterectomy with bovine patch angioplasty on 04/06/[address] Khai Antony on account of Symptomatic critical stenosis left extracranial internal carotid artery 3.? History of pathological arrhythmias ?V. fib resulting in cardiac arrest in July 2015 status post AICD implantation 4.? Hypertension - Blood pressure controlled, home medications continued with dose adjustment as needed 5.? Paroxysmal A. fib -Rate controlled.? On systemic anticoagulation with apixaban, plan is to resume when okay with Dr. Antony with vascular surgery 6.? Hypothyroidism - Patient is on levothyroxine home dose continued 7.? Diabetes mellitus type II -patient's oral hypoglycemics held. Placed on long acting insulin, Accu-Cheks a.c. and at bedtime and covered with sliding scale insulin 8.? Acute renal insufficiency superimposed on chronic kidney disease stage IIIB ?Secondary to diabetic nephropathy plan is to monitor with daily BMPs ? 04/03/2022 patient presented with worsening kidney function improved with rehydration and adjustment of medications. We will continue with subsequent monitoring with daily BMPs 9.? Anemia - Secondary to chronic disorder monitoring H&H and transfuse if patient becomes symptomatic or hemoglobin falls below? 7 9. Dyslipidemia -Patient is on statin therapy, continued at home dose 10. DVT prophylaxis ? On apixaban Charges/Coding Visit Charges OBSV E&M: 54248 Subsequent observation care L2
[2022-04-05] MEDS: Insulin Lispro 100 UNIT/ML INSULN.PEN 10 UNIT SC (08:03)
[2022-04-05] MEDS: Famotidine 20 MG Tablet PO (08:34)
[2022-04-05] MEDS: APIXABAN 2.5 MG TABLET PO (08:34)
[2022-04-05] MEDS: Ferrous Gluconate 324 MG Tablet PO (08:34)
[2022-04-05] MEDS: Carvedilol 25 MG Tablet PO (08:34)
[2022-04-05] MEDS: Aspirin 81 MG TAB.CHEW PO (08:34)
[2022-04-05] MEDS: dilTIAZem CD 120 MG Capsule PO (08:35)
--- NOTE | 2022-04-05 09:00 | MRI_ITS ---
EXAM: MR HEAD WITHOUT INTRAVENOUS CONTRAST CLINICAL INDICATION: Ataxia. TECHNIQUE: Multiplanar and multisequence MR images of the brain were obtained without intravenous contrast. This report was created using [employer] report generation technology. COMPARISON: CT head without contrast 04/02/2022 and 07/12/2017. FINDINGS: BRAIN AND EXTRA-AXIAL SPACES: No diffusion restriction to suspect acute or subacute ischemic infarct. 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 Moderate cerebral atrophy, central and cortical, accounting for dilatation of third and lateral ventricles. Normal cerebral aqueduct and fourth ventricle. No intra- or extra-axial hemorrhage. Posterior fossa structures are unremarkable. Basal cisterns are patent. SELLA: Unremarkable. Normal sella turcica, pituitary gland, infundibular stalk, optic chiasm and hypothalamus. AUDITORY SYSTEM: Unremarkable. The internal auditory canals are patent. BONES/JOINTS: See below. SINUSES: Unremarkable as visualized. Clear. MASTOID AIR CELLS: Minimal mucosal edema of the right temporal mastoid bone more than the left temporal mastoid bone. ORBITS: Unremarkable as visualized. Both globes, extraocular muscles, optic nerves and retrobulbar fat appear unremarkable. VASCULATURE: Unremarkable as visualized. Normal flow voids in the major intracranial circulation. MRI/Brain without Contrast IMPRESSION: 1. No MRI evidence of acute or subacute ischemic infarct or acute intracranial abnormality. 2. 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 3. Minimal mucosal edema in both temporal mastoid bones, right more than left. 4. 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 Electronically Signed: Dewayne Holder MD at 11:57 EDT ,
[2022-04-05] MEDS: LORazepam 1 MG Tablet PO (09:09)
[2022-04-05] MEDS: guaiFENesin Dm 10 ML UDC PO (09:31)
[2022-04-05 09:51] LABS: Bedside Glucose 133 mg/dL (74-106)
[2022-04-05] MEDS: Insulin Lispro 100 UNIT/ML INSULN.PEN SC (11:35)
--- NOTE | 2022-04-05 12:03 | DS.PCM_ITS ---
Providers Date of Admission: 04/02/22 Date of Discharge: 04/05/22 Primary Care Physician: Dr. 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 fib chronic kidney disease stage IV, essential hypertension dyslipidemia hypertension who presented with dizziness 1. Acute vertigo ? Patient has been admitted to a monitored bed currently undergoing evaluation to rule out posterior circulation CVA. As part of patient's management ordered bilateral carotid artery duplex. Also ordered MRI however patient has an AICD and this may need to be turned off prior to patient undergoing any subsequent evaluation with an MRI. Patient is currently on antiplatelet therapy, apixaban and statin therapy did continue. Repeat echo not ordered he had an echo in January 01, 2022 which demonstrated moderate concentric left ventricular hypertrophy EF of 40% and septal wall motion consistent with IV CAD and pulmonary systolic arterial pressure of 38 -04/03/2022 patient seen dizziness appears to have resolved. Improvement in kidney function. Plan is for patient to undergo MRI of the brain to rule out posterior circulation CVA once his AICD has been turned off (scheduled for 04/04/2022) -04/04/2022; Patient seen has not had recurrence of his dizzy spells. MRI scheduled to be performed today MRI did not demonstrate any acute CVA results are as below 1.? No MRI evidence of acute or subacute ischemic infarct or acute intracranial abnormality. 2.? 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 3.? Minimal mucosal edema in both temporal mastoid bones, right more thanleft. 4.? 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 2. Carotid artery disease ? With history of left carotid endarterectomy with bovine patch angioplasty on 04/06/[address] Khai Antony on account of Symptomatic critical stenosis left extracranial internal carotid artery 3.? History of pathological arrhythmias ?V. fib resulting in cardiac arrest in July 2015 status post AICD implantation 4.? Hypertension - Blood pressure controlled, home medications continued with dose adjustment as needed 5.? Paroxysmal A. fib -Rate controlled.? On systemic anticoagulation with apixaban, plan is to resume when okay with Dr. Antony with vascular surgery 6.? Hypothyroidism - Patient is on levothyroxine home dose continued 7.? Diabetes mellitus type II -patient's oral hypoglycemics held. Placed on long acting insulin, Accu-Cheks a.c. and at bedtime and covered with sliding scale insulin 8.? Acute renal insufficiency superimposed on chronic kidney disease stage IIIB ?Secondary to diabetic nephropathy plan is to monitor with daily BMPs ? 04/03/2022 patient presented with worsening kidney function improved with rehydration and adjustment of medications. We will continue with subsequent monitoring with daily BMPs 9.? Anemia - Secondary to chronic disorder monitoring H&H and transfuse if patient becomes symptomatic or hemoglobin falls below? 7 9. Dyslipidemia -Patient is on statin therapy, continued at home dose 10. DVT prophylaxis ? On apixaban Medications at Discharge Home Medications cholecalciferol (vitamin D3) 25 mcg (1,000 unit) capsule 1,000 unit PO BID supplement 05/20/18 ferrous gluconate 324 mg (37.5 mg iron) tablet 325 mg PO BIDCM iron supplement 05/20/18 insulin aspart U-100 100 unit/mL (3 mL) subcutaneous pen 10 units subcut BREAKFAST DM 05/20/18 insulin aspart U-100 100 unit/mL (3 mL) subcutaneous pen 10 units subcut DINNER DM 05/20/18 levothyroxine 100 mcg tablet 100 mcg PO MOTUWETHFRSA hypothyroidism 05/20/18 levothyroxine 100 mcg tablet 200 mcg PO JARVIS hypothyroidism 05/20/18 multivitamin 1 each PO DAILY supplement 05/20/18 omega-3 fatty acids-fish oil 300 mg-1,000 mg capsule 1 each PO DAILY supplement 05/20/18 tiotropium bromide 18 mcg capsule with inhalation device (Spiriva with HandiH aler) 18 mcg IH BID congestion 05/20/18 apixaban 2.5 mg tablet (Eliquis) 2.5 mg PO BID blood thinner 06/29/20 Handicap Parking Placard #1 ea 08/25/20 albuterol sulfate 90 mcg/actuation aerosol inhaler 2 puff inhalation Q4H PRN fill as courtesy until 's office open #18 grams 11/22/20 insulin glargine 100 unit/mL subcutaneous solution 10 unit SQ QHS DM 11/24/20 lactobacillus comb no.10 20 billion cell capsule 1 each PO BID supplement 11/24/20 ascorbic acid (vitamin C) 1,000 mg tablet 1,000 mg PO DAILY supplement 12/29/20 fluticasone propionate 50 mcg/actuation nasal spray,suspension (Flonase Allergy Relief) 2 spray intranasal DAILY congestion 12/29/20 albuterol sulfate 2.5 mg/3 mL (0.083 %) solution for nebulization 2.5 mg continuous nebulization QHS breathing 01/30/21 carvedilol 25 mg tablet 25 mg PO BID heart #180 tabs 11/28/21 mometasone 200 mcg/actuation HFA aerosol inhaler (Asmanex HFA) 2 puff inhalation BID 01/19/22 magnesium oxide 200 mg PO BID supplement 02/01/22 furosemide 20 mg tablet 20 mg PO DAILY water pill #90 tabs 02/06/22 spironolactone 25 mg tablet 25 mg PO QAM #90 tabs 02/06/22 atorvastatin 10 mg tablet 10 mg PO QHS cholesterol #90 tabs 03/06/22 empagliflozin 25 mg tablet (Jardiance) 25 mg PO DAILY 03/24/22 diltiazem HCl 120 mg capsule,extended release 24 hr (Cardizem CD) 120 mg PO DAILY 04/02/22 guaifenesin 600 mg tablet, extended release 12 hr (Mucinex) 600 mg PO BID 04/02/22 Physical Exam Narrative GENERAL: cooperative HEENT: Atraumatic; EYES; Anicteric, Normal Conjunctiva NECK; supple, normal thyroid, RESPIRATORY: Diminished to auscultation CARDIOVASCULAR: Regular S1 S2, GI: soft, normoactive bowel sounds, : No Renal angle tenderness; EXTREMITIES: No edema, no clubbing, MUSCULOSKELETAL: Prosthetic left fingers NEURO: Awake; no lateralizing signs. SKIN: No Rash PSYCH; Flat affect Weight / BMI Weight Weight: 95.283 kg Body Mass Index (BMI) 26.9 ABG / Lab / Microbiology Data Result Diagrams: 04/03/22 04:40 04/04/22 10:20 Laboratory: Laboratory Results - last 24 hr 04/04/22 11:37: POC Glucose 217 H 04/04/22 17:26: POC Glucose 164 H 04/04/22 21:56: POC Glucose 157 H 04/05/22 08:01: POC Glucose 133 H Radiography Diagnostic Testing: Radiology Impression Brain MRI 04/05/22 09:00 IMPRESSION: 1. No MRI evidence of acute or subacute ischemic infarct or acute intracranial abnormality. 2. 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 3. Minimal mucosal edema in both temporal mastoid bones, right more than left. 4. 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 Electronically Signed: Dewayne Holder MD at 11:57 EDT , D/C Instructions Discharge Diet: 2000 mg Sodium Diet Discharge Activity: Return to Normal Activity Call your doctor if you observe: Fever of 101 or Higher, Shortness of breath, Fainting spells and Chest pain Meaningful Use Info Meaningful Use Diagnoses (Choose all that apply): None applicable Discharge Plan Admission Admit Date/Time: 04/02/22 10:15 Attending Provider: Rachna Mckenzie Primary Care Provider: Corin Hernandez Discharge Orders/Prescriptions Prescriptions: Continued Eliquis 2.5 mg tablet 2.5 mg PO BID Label Comments: pt states per Dr Antony's instructions, will stop Eliquis 48hrs prior to surgery on 04/06/21 fluticasone propionate [Flonase Allergy Relief] 50 mcg/actuation spray,suspension 2 spray intranasal DAILY Rx Instructions: administer into each nostril atorvastatin 10 mg tablet 10 mg PO QHS Qty: 90 3RF Asmanex HFA 200 mcg/actuation HFA aerosol inhaler 2 puff inhalation BID Jardiance 25 mg tablet 25 mg PO DAILY Rx Instructions: take 1/2 tab daily multivitamin 1 EACH tablet 1 each PO DAILY levothyroxine 100 MCG tablet 100 mcg PO MOTUWETHFRSA levothyroxine 100 MCG tablet 200 mcg PO JARVIS cholecalciferol (vitamin D3) 1,000 UNIT capsule 1,000 unit PO BID insulin aspart U-100 100 UNITS/ML insulin pen 10 units SC BREAKFAST Rx Instructions: SSI insulin aspart U-100 100 UNITS/ML insulin pen 10 units SC DINNER Rx Instructions: SSI Spiriva with HandiHaler 18 MCG capsule, w/inhalation device 18 mcg IH BID omega-3 fatty acids-fish oil 1 EACH capsule 1 each PO DAILY ferrous gluconate 325 MG tablet 325 mg PO BIDCM ascorbic acid (vitamin C) 1,000 mg tablet 1,000 mg PO DAILY insulin glargine 100 UNIT/ML solution 10 unit SQ QHS Rx Instructions: SSI lactobacillus comb no.10 1 EACH capsule 1 each PO BID albuterol sulfate 2.5 mg /3 mL (0.083 %) solution for nebulization 2.5 mg continuous nebulization QHS Label Comments: USE 1 VIAL IN NEBULIZER AT BEDTIME diltiazem HCl [Cardizem CD] 120 mg capsule,extended release 24hr 120 mg PO DAILY guaifenesin [Mucinex] 600 mg Tablet Extended Release 12hr 600 mg PO BID (DME) Handicap Parking Placard See Rx Instructions .Route .MEDSUPPLY Qty: 1 0RF Rx Instructions: As directed albuterol sulfate 90 mcg/actuation HFA aerosol inhaler 2 puff INHALATION Q4H PRN (Reason: fill as courtesy until 's office open) Qty: 18 0RF carvedilol 25 mg tablet 25 mg PO BID Qty: 180 3RF magnesium oxide 400 mg magnesium capsule 200 mg PO BID furosemide 20 mg tablet 20 mg PO DAILY Qty: 90 3RF spironolactone 25 mg tablet 25 mg PO QAM Qty: 90 3RF Referrals / Follow Up: Corin Hernandez MD [Primary Care Provider] - Within 1 Week Disposition Disposition (needs filled in before D/C Order can be placed): Home, Self Care Charges/Coding Visit Charges OBSV E&M: 61319 Observation care discharge
[2022-04-05 12:05] LABS: Bedside Glucose 158 mg/dL (74-106)
== END 2022-04-05 12:13 | disposition home or self-care (01) ==
LOC: ED 10:16 → PCU 10:38
PROVIDERS: Admitting Provider Internal Medicine; Emergency Provider Emergency Medicine; PCP Family Medicine; Visit Provider Internal Medicine
DX: R42 Dizziness and giddiness (principal); J44.9 Chronic obstructive pulmonary disease, unspecified; I13.0 Hypertensive heart and chronic kidney disease with heart failure and stage 1 through stage 4 chronic kidney disease, or unspecified chronic kidney disease; I50.22 Chronic systolic (congestive) heart failure; E11.22 Type 2 diabetes mellitus with diabetic chronic kidney disease; N18.4 Chronic kidney disease, stage 4 (severe); I48.0 Paroxysmal atrial fibrillation; Z79.4 Long term (current) use of insulin; R41.0 Disorientation, unspecified; E78.00 Pure hypercholesterolemia, unspecified; I25.5 Ischemic cardiomyopathy; I25.10 Atherosclerotic heart disease of native coronary artery without angina pectoris; Z87.891 Personal history of nicotine dependence; Z95.810 Presence of automatic (implantable) cardiac defibrillator; Z79.01 Long term (current) use of anticoagulants; Z86.16 Personal history of COVID-19; D63.8 Anemia in other chronic diseases classified elsewhere
CPT/HCPCS: 36415; 70450; 70551; 80048; 80053; 80061; 82962; 83735; 84484; 85025; 93005; 93880; 94640; 94660; 94762; 96360; 96361; 97162; 97166; 97530; 97802; 99218; 99284; J7030; J7040; A4216; G0378

== ENCOUNTER → 2022-06-05 | Outpatient (CLI) | payer MEDICARE, OTHER, SELFPAY ==
[2022-06-05 08:45] LABS: Vitamin D,25 Hydroxy 52.6 ng/mL
[2022-06-05 08:47] LABS: ALB/GLOB Ratio 0.9 RATIO (0.9-2.4); AST(SGOT) 17 U/L (15-37); Alanine Aminotransfer ALT/SGPT 30 U/L (16-61); Albumin, Serum 3.4 g/dL (3.2-5.0); Alkaline Phosphatase 75 U/L (45-117); Anion Gap 10 (5-15); BUN 30 mg/dL (7-18); BUN/Creat Ratio 15.3 RATIO (10-20); Calcium,Total 9.1 mg/dL (8.5-10.1); Chloride 108 mmol/L (98-107); Cholesterol 168 mg/dL (200); Creatinine, Serum 1.96 mg/dL (0.70-1.30); EST Glomerular Filtration Rate 35 mL/min (>60); Est Glom Filt Rate - Afr Amer 42 mL/min (>60); Free T3 1.8 pg/mL (2.18-3.98); Globulin 3.7 g/dL (2.2-4.2); Glucose 158 mg/dL (74-106); High Density Lipoprotein 46 mg/dL; Potassium 3.9 mmol/L (3.5-5.1); Protein, Total 7.1 g/dL (6.4-8.2); Sodium Level 143 mmol/L (136-145); T4 Free Direct 1.02 ng/dL (0.76-1.46); Thyroid Stim Hormone (TSH) 2.04 uIU/mL (0.358-3.74); Triglycerides 181 mg/dL; Very Low Density Lipoprotein 36 mg/dL (5-40)
== END | disposition home or self-care (01) ==
LOC: LAB 07:51
PROVIDERS: PCP Family Medicine; Referring Provider Internal Medicine Endocrinology, Diabetes & Metabolism; Visit Provider Internal Medicine Endocrinology, Diabetes & Metabolism
DX: E11.9 Type 2 diabetes mellitus without complications (principal); E03.9 Hypothyroidism, unspecified; E78.5 Hyperlipidemia, unspecified; E55.9 Vitamin D deficiency, unspecified; E16.2 Hypoglycemia, unspecified
CPT/HCPCS: 36415; 80053; 80061; 82306; 83036; 84439; 84443; 84481

== ENCOUNTER → 2022-09-09 | Outpatient (CLI) | payer MEDICARE, OTHER, SELFPAY ==
[2022-09-09 08:47] LABS: AST(SGOT) 22 U/L (15-37); Alanine Aminotransfer ALT/SGPT 25 U/L (16-61); Albumin, Serum 3.5 g/dL (3.2-5.0); Alkaline Phosphatase 83 U/L (45-117); Anion Gap 6 (5-15); BUN 30 mg/dL (7-18); BUN/Creat Ratio 15.5 RATIO (10-20); Chloride 111 mmol/L (98-107); Cholesterol 126 mg/dL (200); Creatinine, Serum 1.93 mg/dL (0.70-1.30); EST Glomerular Filtration Rate 35 mL/min (>60); Est Glom Filt Rate - Afr Amer 43 mL/min (>60); Globulin 3.4 g/dL (2.2-4.2); Glucose 151 mg/dL (74-106); High Density Lipoprotein 63 mg/dL; Potassium 4.2 mmol/L (3.5-5.1); Protein, Total 6.9 g/dL (6.4-8.2); Sodium Level 142 mmol/L (136-145); T4 Free Direct 1.27 ng/dL (0.76-1.46); Thyroid Stim Hormone (TSH) 2.65 uIU/mL (0.358-3.74); Triglycerides 91 mg/dL; Very Low Density Lipoprotein 18 mg/dL (5-40)
== END | disposition home or self-care (01) ==
LOC: LAB 07:15
PROVIDERS: PCP Family Medicine; Visit Provider Internal Medicine Endocrinology, Diabetes & Metabolism
DX: E11.9 Type 2 diabetes mellitus without complications (principal); E03.9 Hypothyroidism, unspecified; E78.5 Hyperlipidemia, unspecified; E55.9 Vitamin D deficiency, unspecified
CPT/HCPCS: 36415; 80053; 80061; 83036; 84439; 84443

== ENCOUNTER → 2022-09-14 | Outpatient (CLI) | payer MEDICARE, OTHER, SELFPAY | END | disposition home or self-care (01) | LOC: CVS 13:12 | PROVIDERS: PCP Family Medicine; Referring Provider Internal Medicine Cardiovascular Disease; Visit Provider Internal Medicine Cardiovascular Disease | DX: R03.0 Elevated blood-pressure reading, without diagnosis of hypertension (principal) | CPT/HCPCS: 93788 ==

== ENCOUNTER → 2023-01-08 | Outpatient (CLI) | payer MEDICARE, OTHER, SELFPAY ==
[2023-01-08 09:11] LABS: Vitamin D,25 Hydroxy 64.7 ng/mL
[2023-01-08 09:14] LABS: Hemoglobin A1c 7.1 % (3.8-5.6)
[2023-01-08 09:16] LABS: AST(SGOT) 18 U/L (15-37); Alanine Aminotransfer ALT/SGPT 27 U/L (16-61); Albumin, Serum 3.5 g/dL (3.2-5.0); Alkaline Phosphatase 109 U/L (45-117); Anion Gap 6 (5-15); BUN 34 mg/dL (7-18); BUN/Creat Ratio 18.8 RATIO (10-20); Calcium,Total 9.1 mg/dL (8.5-10.1); Chloride 111 mmol/L (98-107); Creatinine, Serum 1.81 mg/dL (0.70-1.30); EST Glomerular Filtration Rate 38 mL/min (>60); Est Glom Filt Rate - Afr Amer 46 mL/min (>60); Globulin 3.6 g/dL (2.2-4.2); Glucose 151 mg/dL (74-106); Protein, Total 7.1 g/dL (6.4-8.2); Sodium Level 142 mmol/L (136-145); T4 Free Direct 1.01 ng/dL (0.76-1.46); Thyroid Stim Hormone (TSH) 2.79 uIU/mL (0.358-3.74)
== END | disposition home or self-care (01) ==
LOC: LAB 08:00
PROVIDERS: PCP Family Medicine; Referring Provider Internal Medicine Endocrinology, Diabetes & Metabolism; Visit Provider Internal Medicine Endocrinology, Diabetes & Metabolism
DX: E03.9 Hypothyroidism, unspecified (principal); E11.22 Type 2 diabetes mellitus with diabetic chronic kidney disease; E78.5 Hyperlipidemia, unspecified; E55.9 Vitamin D deficiency, unspecified
CPT/HCPCS: 36415; 80053; 82306; 83036; 84439; 84443

== ENCOUNTER → 2023-02-07 | Outpatient (CLI) | payer MEDICARE, OTHER, SELFPAY ==
--- NOTE | 2023-02-07 10:03 | RAD_ITS ---
EXAM: XR LUMBOSACRAL SPINE, 4 OR 5 VIEWS CLINICAL INDICATION: LOW BACK PAIN TECHNIQUE: Frontal, lateral and bilateral oblique views of the lumbar spine. COMPARISON: Abdominal pelvic CT of 10/21/2016. FINDINGS: VERTEBRAE: Mild thoracic dextroscoliosis. Lower lumbar facet arthritis. Preserved vertebral body height. No fracture. No spondylolisthesis. DISC SPACES: L4/5 disc space is at least partially fused. Mild degenerative narrowing of the L1/2, L2/3 and L3/4 disc space, with small marginal osteophytes. SOFT TISSUES: Cholecystectomy clips again noted. VASCULATURE: Calcific abdominal aorta which is normal in caliber. GASTROINTESTINAL TRACT: Unremarkable as visualized. Included bowel gas pattern is non-obstructive. 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 A cluster of small rounded calcifications is projected over the upper pole of the left kidney, and the prior CT showed multiple small calcifications within an anterior left renal cyst. SI joints are unremarkable. Neurostimulator device overlies the upper abdomen. RAD/L/S Spine Min 4 Views IMPRESSION: Lumbar spine degenerative changes including facet arthritis. No acute fracture. Staghorn calculus within a low- lying right kidney. Clustered calcifications again noted within a left renal upper pole cyst. Electronically Signed: John Tinoco MD at 4:42 EDT ,
[2023-02-07 11:51] LABS: AST(SGOT) 16 U/L (15-37); Alanine Aminotransfer ALT/SGPT 24 U/L (16-61); Albumin, Serum 3.3 g/dL (3.2-5.0); Alkaline Phosphatase 103 U/L (45-117); Anion Gap 4 (5-15); BUN 34 mg/dL (7-18); BUN/Creat Ratio 19.8 RATIO (10-20); Calcium,Total 9.3 mg/dL (8.5-10.1); Chloride 115 mmol/L (98-107); Creatinine, Serum 1.72 mg/dL (0.70-1.30); EST Glomerular Filtration Rate 40 mL/min (>60); Est Glom Filt Rate - Afr Amer 49 mL/min (>60); Globulin 3.4 g/dL (2.2-4.2); Glucose 131 mg/dL (74-106); Potassium 4.2 mmol/L (3.5-5.1); Protein, Total 6.7 g/dL (6.4-8.2); Sodium Level 144 mmol/L (136-145)
== END | disposition home or self-care (01) ==
PROVIDERS: PCP Family Medicine; Referring Provider Family Medicine; Visit Provider Family Medicine
DX: R10.9 Unspecified abdominal pain (principal); M54.50 Low back pain, unspecified
CPT/HCPCS: 36415; 72110; 80053

== ENCOUNTER → 2023-03-02 | Outpatient (CLI) | payer MEDICARE, OTHER, SELFPAY ==
--- NOTE | 2023-03-02 12:41 | RAD_ITS ---
EXAM: XR LUMBOSACRAL SPINE COMPLETE WITH FLEXION/EXTENSION, 6 OR MORE VIEWS CLINICAL INDICATION: left low back pain TECHNIQUE: Lateral, frontal, oblique and lateral flexion/extension views of the lumbar spine and sacrum. COMPARISON: February 07, 2023, there was mild sigmoid diverticulosis of the time, but lumbar spine was included.. FINDINGS: VERTEBRAE: There is straightening of the usual lordotic curvature on the lateral view. Marked mild dextroscoliosis centered at L2-3 on the frontal view. Disc space narrowing at L4-5 mild endplate sclerosis and anterior spondylosis. Mild disc space narrowing at other levels. Preserved vertebral body height. No fracture. No significant facet arthropathy. No evidence of pars defect on oblique views. DISC SPACES: No acute findings. Disc spaces are maintained. SOFT TISSUES: Cholecystectomy clips. VASCULATURE: Peripheral calcification of the intra-abdominal aorta, no evidence of aneurysm. GASTROINTESTINAL TRACT: Unremarkable as visualized. Included bowel gas pattern is non-obstructive. Technique: 6 views. The patient is mildly rotated on frontal view. RAD/L/S Spine w Bend Min 6 Vw IMPRESSION: 1. Multilevel degenerative changes, especially disc space narrowing at L4-5, with straightening of the usual lordotic curvature on the lateral view, and mild dextroscoliosis. 2. Similar findings compared to abdomen and pelvis CT January 01, 2022. Electronically Signed: Samantha Smith MD at 9:28 EDT ,
== END | disposition home or self-care (01) ==
LOC: MTRAD 12:41
PROVIDERS: PCP Family Medicine; Referring Provider Family Medicine; Visit Provider Family Medicine
DX: M54.50 Low back pain, unspecified (principal)
CPT/HCPCS: 72114

== ENCOUNTER 2023-03-08 09:02 | Emergency (ER) | payer MEDICARE, OTHER, SELFPAY ==
[2023-03-08 09:03] VITALS: BP 105/60; PULSE 132; RESP 14; TEMP 36.6; O2SAT 98; BMI 27.9
--- NOTE | 2023-03-08 09:19 | EKG12_ITS ---
Test Reason : DIZZY Blood Pressure : / mmHG Vent. Rate : 095 BPM Atrial Rate : 000 BPM P-R Int : 000 ms QRS Dur : 146 ms QT Int : 420 ms P-R-T Axes : 000 000 068 degrees QTc Int : 527 ms Atrial fibrillation Left bundle branch block Abnormal ECG Confirmed by CONNIE SPARKS, LOY ([id number]), editor managing director ANNE ORDAZ ([id number]) on 03/09/2023 12:56:05 PM Referred By: BB Confirmed By:LOY ROSALES MD
[2023-03-08 10:09] LABS: Absolute Lymphocyte Count 1.23 X10^3/uL (0.83-4.51); Absolute Neutrophil Count 6.2 X10^3/uL (2.0-7.7); Basophil# 0.04 X10^3/uL; Basophil% 0.5 % (0-1); Eosinophil# 0.14 X10^3/uL; Eosinophils% 1.7 % (0-5); Hematocrit 36.6 % (40-54); Hemoglobin 11.5 g/dL (13.0-16.5); Lymphocyte # 1.23 X10^3/ul (0.83-4.51); Lymphocyte % 14.6 % (19-41); Mean Corp Hgb Conc 31.4 g/dL (32-36); Mean Corpuscular Hgb 30.9 pg (27.0-32.0); Mean Corpuscular Volume 98.4 fL (80-94); Monocyte# 0.73 X10^3/uL; Monocyte% 8.6 % (0-10); NRBC Flagged by Analyzer 0 % (0-5); Neutrophil # 6.24 X10^3/uL (2.7-7.7); Neutrophil % 73.9 % (47-70); Platelet Count 178 K/mm3 (150-450); RBC Distribution Width CV 14.7 % (11.6-14.6); RBC Distribution Width SD 52.7 fl (35.1-43.9); Red Blood Count 3.72 M/mm3 (4.6-6.2); White Blood Count 8.4 K/mm3 (4.4-11.0)
[2023-03-08 10:16] LABS: Anion Gap 9 (5-15); BUN 39 mg/dL (7-18); Calcium,Total 8.5 mg/dL (8.5-10.1); Chloride 112 mmol/L (98-107); Creatinine, Serum 2.29 mg/dL (0.70-1.30); EST Glomerular Filtration Rate 29 mL/min (>60); Est Glom Filt Rate - Afr Amer 35 mL/min (>60); Estimated Creatinine Clearance 27.92 ml/min; Glucose 179 mg/dL (74-106); Potassium 4.2 mmol/L (3.5-5.1); Sodium Level 141 mmol/L (136-145)
[2023-03-08 10:29] VITALS: BP 106/65; BP 96/44; BP 99/62; PULSE 66; PULSE 72; PULSE 83
[2023-03-08 11:12] VITALS: BP 112/77; PULSE 79; RESP 15; O2SAT 98
--- NOTE | 2023-03-08 11:16 | EDS_ITS ---
HPI History of Present Illness Chief Complaint: Dizziness Informant: patient Narrative Narrative: 82-year-old male states he felt dizzy this morning. It was relatively brief, and he states he has this all the time, saying that it feels like lightheadedness, but then he also states that it also feels like he is moving a bit. Today it was random and started while he was sitting. He does not recall triggering this or any other episode with a head movement, position change, or anything else specific. He is never passed out from it. He did not fall today. He came to the ED out of concern because he checked his blood pressure when this occurred, and it was 90 systolic which is very low for him. States he has been drinking fluids lately like usual. He recently was diagnosed with diverticulitis, has been taking an antibiotic, today is his last day of it, all of that is better but he has had some diarrhea, less than 5 bouts per day no blood or melena. [facility] Medical History 65 years of age or older Anemia Atherosclerotic heart disease of [place] coronary artery without angina pectoris Atrial fibrillation Bacterial endocarditis Bilateral carotid bruits Cardiac arrest with ventricular fibrillation (06/2015) Cardiology follow-up encounter Carotid stenosis, left Chronic kidney disease (CKD) Chronic systolic (congestive) heart failure CKD (chronic kidney disease) stage 3, GFR 30-59 ml/min Congestive heart failure (CHF) COPD (chronic obstructive pulmonary disease) COVID-19 (06/01/21) CPAP (continuous positive airway pressure) dependence Dark stools Diabetes Dietary restriction Dizziness Elevated LFTs Essential (primary) hypertension Former smoker History of acute bacterial endocarditis History of echocardiogram History of stress test HLD (hyperlipidemia) Hypokalemia Hypothyroidism ICD (implantable cardioverter-defibrillator) in place Infection and inflammatory reaction due to other cardiac and vascular devices, implants and grafts, initial encounter Infectious endocarditis Insulin dependent diabetes mellitus Iron deficiency Irregular heart beat Ischemic cardiomyopathy Kidney disease Kidney stones Left bundle branch block Malignant pericardial effusion Night sweats Nonrheumatic mitral (valve) prolapse Paroxysmal atrial fibrillation Postoperative atrial fibrillation Primary idiopathic hypertrophic cardiomyopathy Thalamic mass Type II diabetes mellitus Wears dentures Wears glasses Wears hearing aid Home Medications cholecalciferol (vitamin D3) 25 mcg (1,000 unit) capsule 1,000 unit PO BID supplement 05/20/18 [History Last Taken 03/20/20 19:00 1000 units] ferrous gluconate 324 mg (37.5 mg iron) tablet 325 mg PO BIDCM iron supplement 05/20/18 [History Last Taken 03/20/20 19:00 325 mg] insulin aspart U-100 100 unit/mL (3 mL) subcutaneous pen 10 units subcut BREAKFAST DM 05/20/18 [History Last Taken 03/20/20 08:00 12 units] insulin aspart U-100 100 unit/mL (3 mL) subcutaneous pen 10 units subcut DINNER DM 05/20/18 [History Last Taken 03/20/20 18:00 12 units] levothyroxine 100 mcg tablet 100 mcg PO MOTUWETHFRSA hypothyroidism 05/20/18 [History Last Taken 04/06/21] levothyroxine 100 mcg tablet 200 mcg PO JARVIS hypothyroidism 05/20/18 [History Last Taken 04/02/22] multivitamin 1 each PO DAILY supplement 05/20/18 [History Last Taken 03/20/20 08:00 1 each] omega-3 fatty acids-fish oil 300 mg-1,000 mg capsule 1 each PO DAILY supplement 05/20/18 [History Last Taken 03/20/20 08:00 1 each] tiotropium bromide 18 mcg capsule with inhalation device (Spiriva with HandiHaler) 18 mcg IH BID congestion 05/20/18 [History Last Taken 03/20/20 19:00 18 mcg] apixaban 2.5 mg tablet (Eliquis) 2.5 mg PO BID blood thinner 06/29/20 [History Last Taken 04/02/22] Handicap Parking Placard #1 ea 08/25/20 [Rx Last Taken Unknown] albuterol sulfate 90 mcg/actuation aerosol inhaler 2 puff inhalation Q4H PRN fill as courtesy until 's office open #18 grams 11/22/20 [Rx Last Taken Unknown] insulin glargine 100 unit/mL subcutaneous solution 10 unit SQ QHS DM 11/24/20 [History Last Taken Unknown] lactobacillus comb no.10 20 billion cell capsule 1 each PO BID supplement 11/24/20 [History Last Taken Unknown] ascorbic acid (vitamin C) 1,000 mg tablet 1,000 mg PO DAILY supplement 12/29/20 [History Last Taken Unknown] fluticasone propionate 50 mcg/actuation nasal spray,suspension (Flonase Allergy Relief) 2 spray intranasal DAILY congestion 12/29/20 [History Last Taken Unknown] albuterol sulfate 2.5 mg/3 mL (0.083 %) solution for nebulization 2.5 mg continuous nebulization QHS breathing 01/30/21 [History Last Taken Unknown] mometasone 200 mcg/actuation HFA aerosol inhaler (Asmanex HFA) 2 puff inhalation BID 01/19/22 [History Last Taken Unknown] magnesium oxide 200 mg PO BID supplement 02/01/22 [History Last Taken Unknown] empagliflozin 25 mg tablet (Jardiance) 25 mg PO DAILY 03/24/22 [History Last Taken Unknown] guaifenesin 600 mg tablet, extended release 12 hr (Mucinex) 600 mg PO BID 04/02/22 [History Last Taken 04/02/22] atorvastatin 10 mg tablet 10 mg PO QHS cholesterol #90 tabs 07/03/22 [Rx Last Taken Unknown] diltiazem HCl 120 mg capsule,extended release 24 hr (Cardizem CD) 120 mg PO BID this is a dose increase #180 caps 09/18/22 [Rx Last Taken Unknown] carvedilol 25 mg tablet 25 mg PO BID heart #180 tabs 10/17/22 [Rx Last Taken Unknown] omeprazole 40 mg capsule,delayed release 40 mg PO DAILY 11/28/22 [History Last Taken Unknown] spironolactone 25 mg tablet 12.5 mg PO DAILY 11/28/22 [History Last Taken Unknown] furosemide 40 mg tablet 40 mg PO .COMPLEX 02/12/23 [History Last Taken Unknown] Allergy/AdvReac Type Severity Reaction Status Date / Time latex Allergy Other Verified 03/08/23 09:03 LAURA Inhibitors AdvReac Intermediate cough Verified 03/08/23 09:03 enalapril AdvReac Intermediate Shortness Verified 03/08/23 09:03 of breath adhesive tape AdvReac rash Verified 03/08/23 09:03 azithromycin AdvReac Other Verified 03/08/23 09:03 [From Zithromax Z-Robert] levofloxacin [From Levaquin] AdvReac Other Verified 03/08/23 09:03 warfarin [From Coumadin] AdvReac bleeding Verified 03/08/23 09:03 under the skin Family History Father , age 47 from peritonitis Peritonitis Mother , age 93 CVA (cerebral vascular accident) several TIA's Surgical History Abnormal fractional flow reserve (FFR) on cardiac catheterization (02/2017) H/O coronary artery bypass surgery (04/27/17) History of appendectomy History of cardioversion (04/2017) History of implantable cardiac defibrillator (ICD) (03/17/22) History of left heart catheterization History of partial amputation of left hand Hx of bilateral cataract extraction Hx of cholecystectomy Hx of prostatectomy ICD (implantable cardioverter-defibrillator) infection Social History household members: spouse Smoking Status: Former smoker how long ago did patient quit smoking: Quit ~ 50 years prior, prior to quitting up to 4 ppd since 9/10 years old. alcohol intake: never substance use type: does not use caffeine: No what type of physical activity do you participate in: walking frequency: 5-6 times per week duration: 15-30 minutes/day seatbelt use: always do you feel safe at home: Yes ROS ROS ED Constitutional Constitutional ED: Denies chills or fever(s) Eyes Eyes: Denies change in vision or diplopia ENT ENT ED: Denies rhinorrhea or sore throat Cardiovascular Cardiovascular: Reports as per HPI and dizziness; Denies chest pain or palpitations Respiratory/Chest Respiratory/Chest: Denies cough or dyspnea Gastrointestinal Gastrointestinal: Reports diarrhea; Denies abdominal pain, nausea or vomiting Genitourinary Genitourinary ED: Denies dysuria or hematuria Musculoskeletal Musculoskeletal: Denies back pain or neck pain Integumentary Denies abscess or rash Neurologic Neurologic: Denies headache(s), paresthesias or weakness Psychiatric Psychiatric: Denies anxiety or suicidal thoughts EXAM Physical Exam Const Vital Signs: 03/08/23 09:03 03/08/23 09:39 03/08/23 10:29 Temperature 98 F Temperature Source Temporal Pulse Rate 132 H Pulse Rate [Lying] 83 Pulse Rate [Sitting (for 1 minute prior to obtaining)] 66 Pulse Rate [Standing (for 1 minute prior to obtaining)] 72 Respiratory Rate 14 Respiratory Effort Normal Non-Labored Respiratory Pattern Normal Blood Pressure 105/60 Blood Pressure [Lying] 99/62 Blood Pressure [Sitting (for 1 minute prior to obtaining)] 106/65 Blood Pressure [Standing (for 1 minute prior to obtaining)] 96/44 L Blood Pressure Mean 75 Blood Pressure Mean [Lying] 74 Blood Pressure Mean [Sitting (for 1 minute prior to obtaining)] 78 Blood Pressure Mean [Standing (for 1 minute prior to obtaining)] 61 Pulse Ox 98 Oxygen Delivery Method 03/08/23 11:12 Temperature Temperature Source Pulse Rate 79 Pulse Rate [Lying] Pulse Rate [Sitting (for 1 minute prior to obtaining)] Pulse Rate [Standing (for 1 minute prior to obtaining)] Respiratory Rate 15 Respiratory Effort Respiratory Pattern Blood Pressure 112/77 Blood Pressure [Lying] Blood Pressure [Sitting (for 1 minute prior to obtaining)] Blood Pressure [Standing (for 1 minute prior to obtaining)] Blood Pressure Mean 88 Blood Pressure Mean [Lying] Blood Pressure Mean [Sitting (for 1 minute prior to obtaining)] Blood Pressure Mean [Standing (for 1 minute prior to obtaining)] Pulse Ox 98 Oxygen Delivery Method Room Air Positive well nourished and well developed General Appearance ED: well developed and NAD HEENT Reports TM's clear and moist mucous membranes normocephalic and atraumatic Tympanic Membrane ED: Yes TM's clear Eyes PERRL and EOMs intact bilaterally Eyes Narrative: No pathologic nystagmus Neck full ROM and supple Resp normal respiratory effort and clear to auscultation bilaterally Cardio no murmurs Rate: Negative for tachycardic Rhythm: abnormal rhythm irregularly irregular GI non-tender and non-distended Auscultation: normoactive bowel sounds Palpation: soft Back/Spine no CVA tenderness General Back: other FROM Extremity normal to inspection General Extremety ED: Negative for edema, pulses abnormal or tenderness General Extremity: Negative for edema or pulses abnormal Neuro oriented x3, CN's II-XII intact bilaterally and no sensory deficits noted Sensorium / Orientation: awake and alert Motor Exam: strength 5/5 throughout Psych mental status grossly normal Skin no rashes or lesions noted and no wounds MDM MDM MDM Narrative Medical decision making narrative: Patient does have chronic kidney disease, baseline looks like it is around 1.7- 1.8 creatinine, today it is 2.29, his BUN is 39 little higher than usual as well. His orthostatics were negative, he did not get dizzy/lightheaded when he stood up, but his blood pressure was not as low as it was at home. After some IV fluids while we were working him up, his blood pressure is 112 systolic and he feels fine. I do not think he needs further emergent testing right now, there is no suspicion here for GI bleeding, I do not think this is central vertigo, it is certainly possible that his dizziness is vertiginous, if so it is more likely to be peripheral given that he has had it chronically and episodically with very brief symptoms and no other neurologic deficits such as diplopia or other vision abnormalities. It appears that he is on furosemide I would hold that for a couple days, he has a doctor's appointment tomorrow, I encouraged him to drink plenty of fluids in the meantime. He is comfortable with that plan. Lab Data Attestation: I reviewed the patient's lab results. Labs: Laboratory Results - last 24 hr 03/08/23 09:50 WBC 8.4 RBC 3.72 L Hgb 11.5 L Hct 36.6 L MCV 98.4 H MCH 30.9 MCHC 31.4 L RDW Std Deviation 52.7 H RDW Coeff of [place] 14.7 H Plt Count 178 MPV 10.0 Immature Gran % (Auto) 0.700 Neut % (Auto) 73.9 H Lymph % (Auto) 14.[address] % (Auto) 8.6 Eos % (Auto) 1.7 Baso % (Auto) 0.5 Absolute Neuts (auto) 6.2 Absolute Lymphs (auto) 1.23 Nucleated RBC % 0 Sodium 141 Potassium 4.2 Chloride 112 H Carbon Dioxide 20.0 L Anion Gap 9 BUN 39 H Creatinine 2.29 H Estim Creat Clear Calc 27.92 Est GFR (MDRD) Af Amer 35 L Est GFR (MDRD) Non-Af 29 L BUN/Creatinine Ratio 17.0 Glucose 179 H Calcium 8.5 Rhythm Strip Rhythm Strip: A-fib Rate: 90 Ectopy: None EKG Initial EKG: Attestation: I personally reviewed and interpreted this EKG as follows: Interpretation: No Acute Injury Pattern, Atrial Fibrillation and LBBB Prior EKG tracings: available for review Prior: Unchanged Discharge Plan Triage Chief Complaint: Dizziness ED Provider: Vineet Wright Dx/Rx/DC Orders Clinical Impression: Dizziness, Chronic kidney disease (CKD), SILKE (acute kidney injury) Instructions: ED Chronic Kidney Disease (CKD) Prescriptions: Continued Eliquis 2.5 mg tablet 2.5 mg PO BID Patient Comments: pt states per Dr Antony's instructions, will stop Eliquis 48hrs prior to surgery on 04/06/21 fluticasone propionate [Flonase Allergy Relief] 50 mcg/actuation spray,ricco pension 2 spray intranasal DAILY Rx Instructions: administer into each nostril omeprazole 40 mg capsule,delayed release(DR/EC) 40 mg PO DAILY spironolactone 25 mg tablet 12.5 mg PO DAILY Asmanex HFA 200 mcg/actuation HFA aerosol inhaler 2 puff inhalation BID Jardiance 25 mg tablet 25 mg PO DAILY Rx Instructions: take 1/2 tab daily multivitamin 1 EACH tablet 1 each PO DAILY levothyroxine 100 MCG tablet 100 mcg PO MOTUWETHFRSA levothyroxine 100 MCG tablet 200 mcg PO JARVIS cholecalciferol (vitamin D3) 1,000 UNIT capsule 1,000 unit PO BID insulin aspart U-100 100 UNITS/ML insulin pen 10 units SC BREAKFAST Rx Instructions: SSI insulin aspart U-100 100 UNITS/ML insulin pen 10 units SC DINNER Rx Instructions: SSI Spiriva with HandiHaler 18 MCG capsule, w/inhalation device 18 mcg IH BID omega-3 fatty acids-fish oil 1 EACH capsule 1 each PO DAILY ferrous gluconate 325 MG tablet 325 mg PO BIDCM ascorbic acid (vitamin C) 1,000 mg tablet 1,000 mg PO DAILY insulin glargine 100 UNIT/ML solution 10 unit SQ QHS Rx Instructions: SSI lactobacillus comb no.10 1 EACH capsule 1 each PO BID albuterol sulfate 2.5 mg /3 mL (0.083 %) solution for nebulization 2.5 mg continuous nebulization QHS Patient Comments: USE 1 VIAL IN NEBULIZER AT BEDTIME guaifenesin [Mucinex] 600 mg Tablet Extended Release 12hr 600 mg PO BID (DME) Handicap Parking Placard See Rx Instructions .Route .MEDSUPPLY Qty: 1 0RF Rx Instructions: As directed albuterol sulfate 90 mcg/actuation HFA aerosol inhaler 2 puff INHALATION Q4H PRN (Reason: fill as courtesy until 's office open) Qty: 18 0RF magnesium oxide 400 mg magnesium capsule 200 mg PO BID atorvastatin 10 mg tablet 10 mg PO QHS Qty: 90 3RF diltiazem HCl [Cardizem CD] 120 mg capsule,extended release 24hr 120 mg PO BID Qty: 180 3RF carvedilol 25 mg tablet 25 mg PO BID Qty: 180 3RF Held furosemide 40 mg tablet 40 mg PO .COMPLEX Hold Instructions: Resume on 03/10/23. Rx Instructions: 40 mg orally daily X 3 days for edema; Primary Care Provider: Corin Hernandez Referrals: Corin Hernandez MD [Primary Care Provider] - Katherin Edge MD [Med Staff - [employer]] - Keep Lesvia appointment Disposition Disposition: Home, Self Care
== END 2023-03-08 11:28 | disposition home or self-care (01) ==
PROVIDERS: Emergency Provider Emergency Medicine; PCP Family Medicine; Visit Provider Emergency Medicine
DX: R42 Dizziness and giddiness (principal); N17.9 Acute kidney failure, unspecified; J44.9 Chronic obstructive pulmonary disease, unspecified; I50.22 Chronic systolic (congestive) heart failure; I13.0 Hypertensive heart and chronic kidney disease with heart failure and stage 1 through stage 4 chronic kidney disease, or unspecified chronic kidney disease; E11.22 Type 2 diabetes mellitus with diabetic chronic kidney disease; Z79.4 Long term (current) use of insulin; N18.30 Chronic kidney disease, stage 3 unspecified; E78.5 Hyperlipidemia, unspecified; I25.10 Atherosclerotic heart disease of native coronary artery without angina pectoris; I25.5 Ischemic cardiomyopathy; R19.7 Diarrhea, unspecified; Z87.891 Personal history of nicotine dependence; K57.92 Diverticulitis of intestine, part unspecified, without perforation or abscess without bleeding; Z86.16 Personal history of COVID-19
CPT/HCPCS: 80048; 85025; 93005; 96360; 99284; J7030; A4216

== ENCOUNTER → 2023-03-27 | Outpatient (CLI) | payer MEDICARE, OTHER, SELFPAY ==
[2023-03-27 07:43] LABS: Anion Gap 4 (5-15); BUN 30 mg/dL (7-18); BUN/Creat Ratio 15.2 RATIO (10-20); Calcium,Total 8.6 mg/dL (8.5-10.1); Chloride 112 mmol/L (98-107); Creatinine, Serum 1.98 mg/dL (0.70-1.30); EST Glomerular Filtration Rate 34 mL/min (>60); Est Glom Filt Rate - Afr Amer 42 mL/min (>60); Glucose 163 mg/dL (74-106); Potassium 3.8 mmol/L (3.5-5.1); Sodium Level 142 mmol/L (136-145)
[2023-03-27 08:10] LABS: Protein, Urine (Random) 57.3 mg/dL (<11.9); Protein:Creat Ratio 1040 mg/g CRE (0-200)
== END | disposition home or self-care (01) ==
LOC: LAB 06:59
PROVIDERS: Nurse Practitioner Family; PCP Family Medicine; Referring Provider Internal Medicine Nephrology; Visit Provider Internal Medicine Nephrology
DX: N18.31 Chronic kidney disease, stage 3a (principal); N17.9 Acute kidney failure, unspecified; I50.22 Chronic systolic (congestive) heart failure; I25.5 Ischemic cardiomyopathy
CPT/HCPCS: 36415; 80048; 82570; 84156

== ENCOUNTER → 2023-04-11 | Outpatient (CLI) | payer MEDICARE, OTHER, SELFPAY ==
--- NOTE | 2023-04-11 12:19 | US_ITS ---
STUDY: RENAL ULTRASOUND - COMPLETE REASON FOR EXAM: Male, 82 years old. KIDNEY STONE TECHNIQUE: Ultrasound evaluation of the kidneys was performed with real-time and static hernandez-scale imaging. COMPARISON: None. FINDINGS: RIGHT KIDNEY: Normal location of the right kidney, which is normal in size. The right kidney measures 11.8 cm x 4.6 x 3.4 cm. There is a normal cortex of the right kidney. The renal cortex measures 1.3 cm. 2 renal cysts are seen. The larger cyst measures 4 cm x 4 cm x 2.3 cm. There are 2 nonobstructive intrarenal calculi. The largest stone measures 4 mm. There is no right hydronephrosis. DISTAL RIGHT URETER: There is non-visualization of the distal right ureter. There is no demonstrated right ureterovesical junction calculus. There is no demonstrated right ureteral jet. LEFT KIDNEY: Normal location of the left kidney, which is normal in size. The left kidney measures 12.3 cm x 5.3 cm x 5.1 cm. There is a normal cortex of the left kidney. The renal cortex measures 1.7 cm. Multiple cysts are seen. The largest cyst measures 4.8 cm x 3.9 signed by 3 cm. 3 nonobstructive intrarenal calculi are seen. The larger measures 6 mm. There is no left hydronephrosis. DISTAL LEFT URETER: There is non-visualization of the distal left ureter. There is no demonstrated left ureterovesical junction calculus. There is a visualized left ureteral jet. BLADDER: The distended urinary bladder has a volume of 456 ml. There is a normal wall thickness of the distended urinary bladder. There is no demonstrated mass within the urinary bladder. There are no demonstrated bladder calculi. US/Kidney and Bladder IMPRESSION: Bilateral renal cysts. Bilateral nonobstructive intrarenal calculi. No evidence of hydronephrosis. Electronically Signed: Angelito Hlyton MD at 13:50 EDT ,
== END | disposition home or self-care (01) ==
PROVIDERS: PCP Family Medicine; Referring Provider Internal Medicine Nephrology; Visit Provider Internal Medicine Nephrology
DX: N20.0 Calculus of kidney (principal)
CPT/HCPCS: 76770

== ENCOUNTER → 2023-04-23 | Outpatient (CLI) | payer MEDICARE, OTHER, SELFPAY ==
[2023-04-23 17:59] LABS: Absolute Neutrophil Count 7.6 X10^3/uL (2.0-7.7); Basophil# 0.02 X10^3/uL; Basophil% 0.2 % (0-1); Eosinophil# 0.12 X10^3/uL; Eosinophils% 1.3 % (0-5); Hematocrit 45.4 % (40-54); Hemoglobin 14.3 g/dL (13.0-16.5); Lymphocyte % 6.7 % (19-41); Mean Corp Hgb Conc 31.5 g/dL (32-36); Mean Corpuscular Hgb 30.4 pg (27.0-32.0); Mean Corpuscular Volume 96.6 fL (80-94); Mean Platelet Vol. 10.6 fl (6.2-12.0); Monocyte# 0.62 X10^3/uL; Monocyte% 6.9 % (0-10); NRBC Flagged by Analyzer 0 % (0-5); Neutrophil % 84.6 % (47-70); POSITIVE DIFFERENTIAL YES; Platelet Count 164 K/mm3 (150-450); RBC Distribution Width CV 14.1 % (11.6-14.6); RBC Distribution Width SD 49.9 fl (35.1-43.9)
[2023-04-23 18:05] LABS: Differential Indicated SCAN CRITERIA MET
[2023-04-23 18:55] LABS: Differential Comment SCANNED
== END | disposition home or self-care (01) ==
PROVIDERS: PCP Family Medicine; Referring Provider Family Medicine; Visit Provider Family Medicine
DX: K52.9 Noninfective gastroenteritis and colitis, unspecified (principal)
CPT/HCPCS: 36415; 85025

== ENCOUNTER → 2023-05-01 | Outpatient (CLI) | payer MEDICARE, OTHER, SELFPAY ==
[2023-05-01 11:03] LABS: Hemoglobin A1c 6.9 % (3.8-5.6)
[2023-05-01 11:25] LABS: Cholesterol 94 mg/dL (200); High Density Lipoprotein 47 mg/dL; PSA,Total - Annual Screen 1.01 ng/mL (0.00-4.00); Thyroid Stim Hormone (TSH) 4.61 uIU/mL (0.358-3.74); Triglycerides 104 mg/dL; Very Low Density Lipoprotein 21 mg/dL (5-40)
== END | disposition home or self-care (01) ==
LOC: MTLAB 07:41
PROVIDERS: PCP Family Medicine; Referring Provider Family Medicine; Visit Provider Family Medicine
DX: E11.69 Type 2 diabetes mellitus with other specified complication (principal); C61 Malignant neoplasm of prostate; E03.9 Hypothyroidism, unspecified
CPT/HCPCS: 36415; 80061; 83036; 84153; 84443; G0103

== ENCOUNTER → 2023-05-15 | Outpatient (CLI) | payer MEDICARE, OTHER, SELFPAY ==
[2023-05-15 09:00] LABS: Vitamin D,25 Hydroxy 50.8 ng/mL
[2023-05-15 09:10] LABS: AST(SGOT) 14 U/L (15-37); Alanine Aminotransfer ALT/SGPT 22 U/L (16-61); Albumin, Serum 3.5 g/dL (3.2-5.0); Alkaline Phosphatase 99 U/L (45-117); Anion Gap 6 (5-15); BUN 37 mg/dL (7-18); BUN/Creat Ratio 16.7 RATIO (10-20); Calcium,Total 8.6 mg/dL (8.5-10.1); Chloride 113 mmol/L (98-107); Cholesterol 128 mg/dL (200); Creatinine, Serum 2.21 mg/dL (0.70-1.30); EST Glomerular Filtration Rate 30 mL/min (>60); Est Glom Filt Rate - Afr Amer 37 mL/min (>60); Free T3 1.9 pg/mL (2.18-3.98); Globulin 3.5 g/dL (2.2-4.2); Glucose 202 mg/dL (74-106); High Density Lipoprotein 54 mg/dL; Potassium 4.2 mmol/L (3.5-5.1); Sodium Level 142 mmol/L (136-145); T4 Free Direct 1.02 ng/dL (0.76-1.46); Triglycerides 122 mg/dL; Very Low Density Lipoprotein 24 mg/dL (5-40)
[2023-05-15 09:44] LABS: Hemoglobin A1c 7.1 % (3.8-5.6)
== END | disposition home or self-care (01) ==
LOC: LAB 07:29
PROVIDERS: PCP Family Medicine; Referring Provider Internal Medicine Endocrinology, Diabetes & Metabolism; Visit Provider Internal Medicine Endocrinology, Diabetes & Metabolism
DX: E11.22 Type 2 diabetes mellitus with diabetic chronic kidney disease (principal); Z79.4 Long term (current) use of insulin; N18.31 Chronic kidney disease, stage 3a; E03.9 Hypothyroidism, unspecified; E78.5 Hyperlipidemia, unspecified
CPT/HCPCS: 36415; 80053; 80061; 82306; 83036; 84439; 84443; 84481

== ENCOUNTER → 2023-05-20 | Outpatient (CLI) | payer MEDICARE, OTHER, SELFPAY ==
[2023-05-20 15:37] LABS: Bacteria 0 SEEN /hpf (None Seen); Mucous, Urine 0 SEEN /hpf (<or=2+); Red Blood Cells-Urine 0 SEEN /hpf (0-5)
[2023-05-20 16:02] LABS: Color, Urine Yellow (Yellow); Glucose, Dipstick 1000 mg/dl (Normal); Ketone-Dipstick Negative (Negative); Leukocyte Esterase-Dipstick Negative /ul (Negative); Nitrite-Dipstick Negative (Negative); Occult Blood-Urine Negative /ul (Negative); Protein-Dipstick 30 mg/dl (Negative); Specific Gravity, Urine 1.015 (1.002-1.030); Urine Bilirubin Dipstick Negative (Negative); Urine Clarity Clear (Clear); Urine Urobilinogen Normal (Normal)
[2023-05-20 16:43] LABS: Squamous Epithelial Cells - UA 0-5 SEEN /hpf (0-5); White Blood Cells 0-5 SEEN /hpf (0-5)
== END | disposition home or self-care (01) ==
PROVIDERS: PCP Family Medicine; Visit Provider Nurse Practitioner Family
DX: R39.9 Unspecified symptoms and signs involving the genitourinary system (principal)
CPT/HCPCS: 81001; 87086; 87088

== ENCOUNTER → 2023-05-21 | Outpatient (CLI) | payer MEDICARE, OTHER, SELFPAY ==
--- NOTE | 2023-05-21 11:52 | RAD_ITS ---
STUDY: X-RAY - LUMBAR SPINE REASON FOR EXAM: Male, 82 years old. Back pain. TECHNIQUE: 5 view(s) of the lumbar spine were obtained. COMPARISON: March 02, 2023 and February 07, 2023. FINDINGS: Osteopenia. Normal lumbar lordosis. Mild rotatory dextroscoliosis unchanged. Normal alignment of the vertebrae. Endplate concavities compatible with osteoporosis. Diffuse lower thoracic and lumbosacral facet sclerosis. Mild diffuse intervertebral disc space narrowing with osteophyte formation most marked at L2-3, L3-4 and L4-5. Vascular calcification and cholecystectomy clips. RAD/L/S Spine Min 4 Views IMPRESSION: Stable osteopenia, dextroscoliosis and diffuse mild lower thoracic and lumbosacral spondylosis. Electronically Signed: Liam Delgadillo MD at 12:41 EDT ,
== END | disposition home or self-care (01) ==
LOC: MTRAD 11:50
PROVIDERS: PCP Family Medicine; Referring Provider Family Medicine; Visit Provider Family Medicine
DX: M54.9 Dorsalgia, unspecified (principal)
CPT/HCPCS: 72110

== ENCOUNTER 2023-05-22 22:37 | Emergency (ER) | payer MEDICARE, OTHER, SELFPAY ==
[2023-05-22 22:37] VITALS: BP 165/60; PULSE 64; RESP 15; TEMP 36.6; O2SAT 97
--- NOTE | 2023-05-23 00:34 | CT_ITS ---
INDICATION: pain EXAMINATION: CT LUMBAR SPINE - CT Spine Lumbar W/O Contrast Injection TECHNIQUE: Helically acquired images were obtained of the lumbar spine. 2D reformats were reviewed. A radiation dose optimization technique was used for this scan. IV Contrast dosage and agent: None. RADIATION DOSAGE (If Supplied By Facility): CTDIvol = ( 26.25 ) mGy, DLP = ( 801.93 ) mGycm COMPARISON: Prior study dated: 01/01/2022 FINDINGS: VERTEBRAE: No fracture or traumatic subluxation. No discrete lytic or blastic abnormality observed. Normal alignment. DISCS and SPINAL CANAL: Disc space narrowing of L4-L5 with vacuum disc phenomenon, similar to prior imaging. There is facet arthropathy throughout. Bony neuroforaminal narrowing bilaterally at L4-L5. No critical spinal canal stenosis. VISUALIZED ABDOMEN: Visualized abdominal aorta is not dilated. Moderate atherosclerotic calcifications. There is no retroperitoneal adenopathy. CT/Spine Lumbar without Contrast IMPRESSION: Multilevel degenerative changes greatest at the L4-L5 level. This is similar to previous. Electronically Signed: Asad Willis MD at 1:11 EDT ,
[2023-05-23] MEDS: Ketorolac 15 MG/ML Vial IM (01:26)
--- NOTE | 2023-05-23 01:29 | EX.ED.DYSGE1 ---
HPI History of Present Illness Chief Complaint: Back Informant: patient and spouse/S.O. Narrative Narrative: Patient is an 82-year-old male with past medical history of hypertension hyperlipidemia chronic kidney disease paroxysmal atrial fibrillation and diabetes. He states he has seen 3 different providers for left-sided low back pain with no trauma. He reports has been taking Tylenol and Flexeril with minimal symptom improvement. He denies any loss of bowel or bladder control or IV drug use. He states he had an x-ray done recently which also showed no obvious bony derangement as the cause of his pain. Despite this he states that the pain is worsened and therefore he presents for evaluation [facility] Medical History 65 years of age or older Anemia Atherosclerotic heart disease of [place] coronary artery without angina pectoris Atrial fibrillation Bacterial endocarditis Bilateral carotid bruits Cardiac arrest with ventricular fibrillation (06/2015) Cardiology follow-up encounter Carotid stenosis, left Chronic kidney disease (CKD) Chronic systolic (congestive) heart failure CKD (chronic kidney disease) stage 3, GFR 30-59 ml/min Congestive heart failure (CHF) COPD (chronic obstructive pulmonary disease) COVID-19 (06/01/21) CPAP (continuous positive airway pressure) dependence Dark stools Diabetes Dietary restriction Dizziness Elevated LFTs Essential (primary) hypertension Former smoker History of acute bacterial endocarditis History of echocardiogram History of stress test HLD (hyperlipidemia) Hypokalemia Hypothyroidism ICD (implantable cardioverter-defibrillator) in place Infection and inflammatory reaction due to other cardiac and vascular devices, implants and grafts, initial encounter Infectious endocarditis Insulin dependent diabetes mellitus Iron deficiency Irregular heart beat Ischemic cardiomyopathy Kidney disease Kidney stones Left bundle branch block Malignant pericardial effusion Night sweats Nonrheumatic mitral (valve) prolapse Paroxysmal atrial fibrillation Postoperative atrial fibrillation Primary idiopathic hypertrophic cardiomyopathy Thalamic mass Type II diabetes mellitus Wears dentures Wears glasses Wears hearing aid Home Medications cholecalciferol (vitamin D3) 25 mcg (1,000 unit) capsule 1,000 unit PO BID supplement 05/20/18 [History Last Taken 03/20/20 19:00 1000 units] ferrous gluconate 324 mg (37.5 mg iron) tablet 325 mg PO BIDCM iron supplement 05/20/18 [History Last Taken 03/20/20 19:00 325 mg] insulin aspart U-100 100 unit/mL (3 mL) subcutaneous pen 5 unit subcut DINNER DM 05/20/18 [History Last Taken 03/20/20 18:00 12 units] insulin aspart U-100 100 unit/mL (3 mL) subcutaneous pen 10 units subcut BREAKFAST DM 05/20/18 [History Last Taken 03/20/20 08:00 12 units] levothyroxine 100 mcg tablet 100 mcg PO MOTUWETHFRSA hypothyroidism 05/20/18 [History Last Taken 04/06/21] levothyroxine 100 mcg tablet 200 mcg PO JARVIS hypothyroidism 05/20/18 [History Last Taken 04/02/22] multivitamin 1 each PO DAILY supplement 05/20/18 [History Last Taken 03/20/20 08:00 1 each] omega-3 fatty acids-fish oil 300 mg-1,000 mg capsule 1 each PO DAILY supplement 05/20/18 [History Last Taken 03/20/20 08:00 1 each] tiotropium bromide 18 mcg capsule with inhalation device (Spiriva with HandiHaler) 18 mcg IH BID congestion 05/20/18 [History Last Taken 03/20/20 19:00 18 mcg] apixaban 2.5 mg tablet (Eliquis) 2.5 mg PO BID blood thinner 06/29/20 [History Last Taken 04/02/22] Handicap Parking Placard #1 ea 08/25/20 [Rx Last Taken Unknown] albuterol sulfate 90 mcg/actuation aerosol inhaler 2 puff inhalation Q4H PRN fill as courtesy until 's office open #18 grams 11/22/20 [Rx Last Taken Unknown] insulin glargine 100 unit/mL subcutaneous solution 10 unit SQ QHS DM 11/24/20 [History Last Taken Unknown] lactobacillus comb no.10 20 billion cell capsule 1 each PO BID supplement 11/24/20 [History Last Taken Unknown] ascorbic acid (vitamin C) 1,000 mg tablet 1,000 mg PO DAILY supplement 12/29/20 [History Last Taken Unknown] fluticasone propionate 50 mcg/actuation nasal spray,suspension (Flonase Allergy Relief) 2 spray intranasal DAILY congestion 12/29/20 [History Last Taken Unknown] albuterol sulfate 2.5 mg/3 mL (0.083 %) solution for nebulization 2.5 mg continuous nebulization QHS breathing 01/30/21 [History Last Taken Unknown] mometasone 200 mcg/actuation HFA aerosol inhaler (Asmanex HFA) 2 puff inhalation BID 01/19/22 [History Last Taken Unknown] magnesium oxide 200 mg PO BID supplement 02/01/22 [History Last Taken Unknown] empagliflozin 25 mg tablet (Jardiance) 12.5 mg PO DAILY 03/24/22 [History Last Taken Unknown] guaifenesin 600 mg tablet, extended release 12 hr (Mucinex) 600 mg PO BID 04/02/22 [History Last Taken 04/02/22] diltiazem HCl 120 mg capsule,extended release 24 hr (Cardizem CD) 120 mg PO BID this is a dose increase #180 caps 09/18/22 [Rx Last Taken Unknown] carvedilol 25 mg tablet 25 mg PO BID heart #180 tabs 10/17/22 [Rx Last Taken Unknown] omeprazole 40 mg capsule,delayed release 40 mg PO DAILY 11/28/22 [History Last Taken Unknown] spironolactone 25 mg tablet 25 mg PO DAILY Dose increased from 12.5 mg to 25 mg daily #90 tabs 04/04/23 [Rx Last Taken Unknown] atorvastatin 10 mg tablet 20 mg PO QHS cholesterol 05/22/23 [History Last Taken Unknown] azelastine 137 mcg (0.1 %) nasal spray aerosol intranasal 05/22/23 [History Last Taken Unknown] methocarbamol 500 mg tablet 500 mg PO 4X/DAY PRN PRN Muscle pain/spasm #40 tabs 05/23/23 [Rx Last Taken Unknown] Allergy/AdvReac Type Severity Reaction Status Date / Time latex Allergy Other Verified 05/22/23 22:44 LAURA Inhibitors AdvReac Intermediate cough Verified 05/22/23 22:44 enalapril AdvReac Intermediate Shortness Verified 05/22/23 22:44 of breath adhesive tape AdvReac rash Verified 05/22/23 22:44 warfarin [From Coumadin] AdvReac bleeding Verified 05/22/23 22:44 under the skin Family History Father , age 47 from peritonitis Peritonitis Mother , age 93 CVA (cerebral vascular accident) several TIA's Surgical History Abnormal fractional flow reserve (FFR) on cardiac catheterization (02/2017) H/O coronary artery bypass surgery (04/27/17) History of appendectomy History of cardioversion (04/2017) History of implantable cardiac defibrillator (ICD) (03/17/22) History of left heart catheterization History of partial amputation of left hand Hx of bilateral cataract extraction Hx of cholecystectomy Hx of prostatectomy ICD (implantable cardioverter-defibrillator) infection Social History household members: spouse Smoking Status: Former smoker how long ago did patient quit smoking: Quit ~ 50 years prior, prior to quitting up to 4 ppd since 9/10 years old. alcohol intake: never substance use type: does not use caffeine: No what type of physical activity do you participate in: walking frequency: 5-6 times per week duration: 15-30 minutes/day seatbelt use: always do you feel safe at home: Yes ROS ROS ED Constitutional Constitutional ED: Denies chills or fever(s) Eyes Eyes: Denies change in vision ENT ENT ED: Denies sore throat Cardiovascular Cardiovascular: Denies chest pain Respiratory/Chest Respiratory/Chest: Denies cough or dyspnea Gastrointestinal Gastrointestinal: Denies abdominal pain, diarrhea, nausea or vomiting Genitourinary Genitourinary ED: Denies dysuria or hematuria Musculoskeletal Musculoskeletal: Reports back pain Integumentary Denies Abrasions or rash Neurologic Neurologic: Denies headache(s) or paresthesias Hematologic/Lymphatic Hematologic/Lymphatic: Reports easy bleeding and easy bruising EXAM Physical Exam Const Vital Signs: 05/22/23 22:37 05/23/23 01:37 Temperature 97.9 F Temperature Source Temporal Pulse Rate 64 75 Respiratory Rate 15 18 Blood Pressure 165/60 H 155/70 H Blood Pressure Mean 95 Pulse Ox 97 94 Oxygen Delivery Method Room Air Positive well nourished, well developed and obese General Appearance ED: well developed; Negative for pallor Nutritional Appearance: obese HEENT HEENT Narrative: Normocephalic atraumatic Eyes PERRL and EOMs intact bilaterally General Eye ED: Negative for scleral icterus Neck supple Chest Wall palpation of chest normal Chest Narrative: No bony deformity or crepitance of the chest wall Resp normal respiratory effort and clear to auscultation bilaterally Cardio regular rate and regular rhythm Rate: other Other Details: Radial and carotid pulses are equal and symmetric GI normal to inspection, nondistended, normoactive bowel sounds, non-tender, non-distended and no masses GI Narrative: No voluntary guarding or rigidity. No pulsatile mass or fluid wave Auscultation: normoactive bowel sounds Palpation: soft Back/Spine Back/Spine Narrative: No bony deformity or step-off of the thoracic or lumbar spine no midline pain with palpation. There is left sided paralumbar tenderness and spasm noted that worsens with extension and rotation. Negative straight leg raise. No clonus or Babinski. Patellar reflexes are plus 1 out of 4 bilaterally. No overlying soft tissue changes to suggest trauma or infection. Extremity Extremity Narrative: Patient has chronic changes such as loss of digits 2 through 5 of the right hand without acute findings of trauma or infection Neuro oriented x3, CN's II-XII intact bilaterally and no sensory deficits noted Sensorium / Orientation: alert Motor Exam: strength 5/5 throughout Psych mental status grossly normal Skin no rashes or lesions noted General Skin Exam: Negative for jaundice or pallor MDM MDM MDM Narrative Medical decision making narrative: Patient presented to the ER mildly hypertensive but has a past medical history of this. He denied any loss of bowel or bladder control or IV drug use going against cauda equina or epidural abscess. Initial diagnosis also includes lumbosacral strain versus a missed compression fracture or findings of spinal stenosis. Therefore elected to perform a noncontrast CT. this revealed chronic/degenerative changes that were similar in nature to the previous exam. Patient was given IM Toradol and did have improvement of pain. At this time physical exam is not suggesting cauda equina or epidural abscess or discitis. He does not have findings of compression fracture or severe spinal stenosis. He was advised to change his muscle relaxer from Flexeril to Robaxin as he will be able to take this multiple times a day as it is nondrowsy. However at this time as there is no overt signs of infection and imaging study rules out missed fracture or changes concerning for discitis or abscess he is otherwise safe for discharge. History & Record Review Discussion w/independent historian: Patient and Significant other Radiography Diagnostic Testing: Clinical Impression(s) from Imaging Studies Lumbar Spine CT 05/23/23 00:34 IMPRESSION: Multilevel degenerative changes greatest at the L4-L5 level. This is similar to previous. 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, Paroxysmal atrial fibrillation, Hypertension Instructions: ED Back Sprain/Strain Prescriptions: New methocarbamol 500 mg tablet 500 mg PO 4X/DAY PRN PRN (Reason: Muscle pain/spasm) Qty: 40 0RF No Action Eliquis 2.5 mg tablet 2.5 mg PO BID Patient Comments: pt states per Dr Antony's instructions, will stop Eliquis 48hrs prior to surgery on 04/06/21 fluticasone propionate [Flonase Allergy Relief] 50 mcg/actuation spray,suspension 2 spray intranasal DAILY Rx Instructions: administer into each nostril omeprazole 40 mg capsule,delayed release(DR/EC) 40 mg PO DAILY Asmanex HFA 200 mcg/actuation HFA aerosol inhaler 2 puff inhalation BID Jardiance 25 mg tablet 12.5 mg PO DAILY Rx Instructions: take 1/2 tab daily multivitamin 1 EACH tablet 1 each PO DAILY levothyroxine 100 MCG tablet 100 mcg PO MOTUWETHFRSA levothyroxine 100 MCG tablet 200 mcg PO JARVIS cholecalciferol (vitamin D3) 1,000 UNIT capsule 1,000 unit PO BID insulin aspart U-100 100 UNITS/ML insulin pen 10 units SC BREAKFAST Rx Instructions: SSI insulin aspart U-100 100 UNITS/ML insulin pen 5 unit SC DINNER Rx Instructions: SSI Spiriva with HandiHaler 18 MCG capsule, w/inhalation device 18 mcg IH BID omega-3 fatty acids-fish oil 1 EACH capsule 1 each PO DAILY ferrous gluconate 325 MG tablet 325 mg PO BIDCM ascorbic acid (vitamin C) 1,000 mg tablet 1,000 mg PO DAILY insulin glargine 100 UNIT/ML solution 10 unit SQ QHS Rx Instructions: SSI lactobacillus comb no.10 1 EACH capsule 1 each PO BID albuterol sulfate 2.5 mg /3 mL (0.083 %) solution for nebulization 2.5 mg continuous nebulization QHS Patient Comments: USE 1 VIAL IN NEBULIZER AT BEDTIME guaifenesin [Mucinex] 600 mg Tablet Extended Release 12hr 600 mg PO BID atorvastatin 10 mg tablet 20 mg PO QHS azelastine 137 mcg (0.1 %) aerosol,spray INTRANASAL Patient Comments: USE 1 TO 2 SPRAY(S) IN EACH NOSTRIL TWICE DAILY (DME) Handicap Parking Placard See Rx Instructions .Route .MEDSUPPLY Qty: 1 0RF Rx Instructions: As directed albuterol sulfate 90 mcg/actuation HFA aerosol inhaler 2 puff INHALATION Q4H PRN (Reason: fill as courtesy until 's office open) Qty: 18 0RF magnesium oxide 400 mg magnesium capsule 200 mg PO BID diltiazem HCl [Cardizem CD] 120 mg capsule,extended release 24hr 120 mg PO BID Qty: 180 3RF carvedilol 25 mg tablet 25 mg PO BID Qty: 180 3RF spironolactone 25 mg tablet 25 mg PO DAILY Qty: 90 3RF Primary Care Provider: Corin Hernandez Referrals: Corin Hernandez MD [Primary Care Provider] - Activity Restrictions/Additional Instructions: Please stop the cyclobenzaprine/Flexeril and begin taking the Robaxin/methocarbamol as this medication will not cause the same sedation as the cyclobenzaprine and he can take it multiple times a day to help control pain. Continue to stretch and heat the area and continue Tylenol and return to the ER should you have any further concerns. Disposition Disposition: Home, Self Care Discharge Date/Time: 05/23/23 01:45
[2023-05-23 01:37] VITALS: BP 155/70; PULSE 75; RESP 18; O2SAT 94
== END 2023-05-23 01:45 | disposition home or self-care (01) ==
PROVIDERS: Emergency Provider Emergency Medicine; PCP Family Medicine; Visit Provider Emergency Medicine
DX: S39.012A Strain of muscle, fascia and tendon of lower back, initial encounter (principal); J44.9 Chronic obstructive pulmonary disease, unspecified; I13.0 Hypertensive heart and chronic kidney disease with heart failure and stage 1 through stage 4 chronic kidney disease, or unspecified chronic kidney disease; I50.22 Chronic systolic (congestive) heart failure; E11.22 Type 2 diabetes mellitus with diabetic chronic kidney disease; I48.0 Paroxysmal atrial fibrillation; Z79.4 Long term (current) use of insulin; N18.30 Chronic kidney disease, stage 3 unspecified; E78.5 Hyperlipidemia, unspecified; I25.10 Atherosclerotic heart disease of native coronary artery without angina pectoris; Z79.01 Long term (current) use of anticoagulants; Z87.891 Personal history of nicotine dependence; E03.9 Hypothyroidism, unspecified; Z95.810 Presence of automatic (implantable) cardiac defibrillator; Z79.899 Other long term (current) drug therapy; Z79.51 Long term (current) use of inhaled steroids; Z90.49 Acquired absence of other specified parts of digestive tract; Z98.41 Cataract extraction status, right eye; Z98.42 Cataract extraction status, left eye; Z90.79 Acquired absence of other genital organ(s)
CPT/HCPCS: 72131; 96372; 99282

== ENCOUNTER → 2023-07-05 | Outpatient (CLI) | payer MEDICARE, OTHER, SELFPAY ==
--- NOTE | 2023-07-05 08:20 | MRI_ITS ---
HISTORY: Lumbar spine pain into left hip x 8 weeks. TECHNIQUE: Multiplanar and multisequence MR images of the lumbar spine were obtained without intravenous contrast. 132 images. COMPARISON: CT 05/23/2023. FINDINGS: VERTEBRAE: Vertebral body heights maintained. Degenerative bone marrow endplate changes of L3-4 and L4-5. ALIGNMENT: Chronic 2 mm retrolisthesis of L4-5 and very mild dextroscoliosis. CONUS: Normal morphology and position of the conus medullaris at L1. INTERVERTEBRAL DISCS: T12-L1: No significant posterior disc protrusion, central canal stenosis, or foraminal narrowing based on the sagittal images. L1-2: Mild disc bulge eccentric to the left with facet arthropathy abutting the left L2 nerve root and resulting in minimal narrowing of the thecal sac and mild bilateral foraminal narrowing. L2-3: Mild posterior disc bulge osteophyte complex with facet arthropathy resulting in minimal narrowing of the thecal sac and bilateral foramina. L3-4: Moderate left paracentral disc extrusion with inferior migration into the left lateral recess and moderate facet arthropathy superimposed on a developmentally narrow spinal canal resulting in left L3 and L4 nerve root impingement, severe central canal stenosis, moderate-severe left, and moderate right foraminal narrowing. L4-5: Very mild posterior disc bulge osteophyte complex with facet arthropathy. No significant central canal stenosis. Moderate left and severe right foraminal narrowing with abutment or impingement of the right L4 nerve root. L5-S1: Very mild central disc protrusion with facet arthropathy. No significant central canal stenosis. Mild right foraminal narrowing. SOFT TISSUES: Mild posterior subcutaneous edema. No paraspinal fluid collection. Bilateral renal cysts. MRI/Spine Lumbar (Routine) IMPRESSION: Moderate left paracentral disc extrusion with inferior migration at L3-4 resulting in left nerve root impingement, severe spinal canal stenosis, and left greater than right foraminal narrowing. Multilevel degenerative disc disease of the lumbar spine as above. Electronically Signed: Faith Myles MD at 11:41 EST ,
[2023-07-05 08:39] VITALS: BP 142/57; PULSE 63; RESP 18; O2SAT 97
[2023-07-05 08:50] VITALS: BP 173/68; PULSE 66; RESP 18; O2SAT 96
[2023-07-05 09:00] VITALS: BP 148/64; PULSE 68; RESP 16; O2SAT 93
[2023-07-05 09:10] VITALS: BP 154/65; PULSE 66; RESP 16; O2SAT 93
[2023-07-05 09:29] VITALS: BP 151/53; PULSE 66; RESP 18; O2SAT 96
== END | disposition home or self-care (01) ==
LOC: MRI 07:53
PROVIDERS: PCP Family Medicine; Referring Provider Orthopaedic Surgery; Visit Provider Orthopaedic Surgery
DX: M48.061 Spinal stenosis, lumbar region without neurogenic claudication (principal)
CPT/HCPCS: 72148

== ENCOUNTER → 2023-08-29 | Outpatient (CLI) | payer MEDICARE, OTHER, SELFPAY ==
--- OUTSIDE RECORDS SUMMARY | 2023-08-29 07:14 | XMS RPT_ITS | CCD ---
Author Name Unknown Address [id number] [place] [address] Organization [facility] Care Team Providers Care Tar Boiler Name Role Phone JAISON Chiang, Bhavna Lucero Unavailable [phone] ESTRELLITA CARNES Unavailable Unavailable Corin Hernandez Unavailable Unavailable LAMBERT, BUNNY S Unavailable Unavailable DANIELA, EM Unavailable Unavailable ESTRELLA SUAREZBERLY Unavailable Unavailable Corin Hernandez Unavailable Unavailable Kumar SPARKS, Liam Larios Unavailable Corin Hernandez Primary Care Provider Lambert, Bunny S Unavailable Shu Gotti Unavailable Estrellita Benavidez Unavailable Marj Marcial CNP Unavailable Barak SPARKS, Jayy Unavailable Estrellita Carnes MD Unavailable [phone] Shu Gotti MD Unavailable LAMBERT, BUNNY S Referring Unavailable ESTRELLITA CARNES Attending Unavailable CORIN HERNANDEZ Primary Care Unavailable Allergies Allergy Classification Reported Allergen(s) Allergy Type Date of Onset Reaction(s) Facility (1 source) enalapril Drug Allergy 6 [facility] Work Phone: (1 source) warfarin Drug Allergy 7 Bleeding under skin/sensitive to med [facility] Work Phone: (2 sources) NKDA drug allergy 3 [facility] Work Phone: (1 source) LAURA-I drug allergy 5 cough [facility] Work Phone: (9 sources) Azithromycin; 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: [AZITHROMYCIN] Drug Allergy 7 Other: See Comments [facility] Repository (10 sources) Enalapril; 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: [ENALAPRIL] Drug Allergy 5 Cough [facility] Repository (9 sources) House dust mite; 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: [DUST MITES] Propensity to adverse reactions (disorder) 0 Other: See Comments [facility] Repository (10 sources) Latex; 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: [LATEX] Propensity to adverse reactions (disorder) 8 Other: See Comments [facility] Repository (9 sources) levoFLOXacin; 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: [LEVOFLOXACIN] Drug Allergy 7 Other: See Comments [facility] Repository (9 sources) Mold; 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: [MOLDS EXTRACT] Propensity to adverse reactions (disorder) 0 Other: See Comments [facility] Repository (1 source) Adhesive Tape; 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: [TAPE] allergy to substance 9 [facility] Work Phone: (1 source) Azithromycin Drug Allergy 9 [facility] Work Phone: (1 source) levoFLOXacin Drug Allergy 9 [facility] Work Phone: (5 sources) Angiotensin-conv erting enzyme inhibitor agent; 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: [LAURA INHIBITORS] Drug Allergy 7 Cough, Unknown [facility] Work Phone: (8 sources) Warfarin; 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: [WARFARIN] Drug Allergy 7 Other: See Comments [facility] Work Phone: (3 sources) Angiotensin-conv erting enzyme inhibitor agent Drug Allergy 7 Cough, Unknown [facility] Work Phone: Medications Completed/Discontinued Medications Medication Drug Class(es) Dates Sig (Normalized) Sig (Original) albuterol 0.83 mg/ml inhalation solution (7 sources) beta2-Adrenergic Agonist Start: 05-17-2021 take 2.5 mg by inhalation every four hours as needed albuterol (PROVENTIL) 2.5 mg /3 mL (0.083 %) nebulizer solution Use 2.5 mg via nebulizer every 4 hours as needed for wheezing/shortnes s of breath. 0 05/17/2021 Active Problems Active Problems Problem Classification Problem Date Documented Date Episodic/Chronic Acute and unspecified renal failure (1 source) Renal failure syndrome; 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: [Disorder of kidney and ureter, unspecified] Onset: 7 05-29-2017 Chronic Cancer of prostate (7 sources) Malignant tumor of prostate; 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: [Malignant neoplasm of prostate] Onset: 7 06-04-2007 Chronic Cardiac arrest and ventricular fibrillation (11 sources) Cardiac arrest due to cardiac disorder; 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: [Ventricular fibrillation] Onset: 6 Resolved: 6 09-13-2015 Chronic Cardiac dysrhythmias (9 sources) Ventricular premature beats; 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: [Atrial fibrillation] Onset: 1 12-15-2010 Chronic Chronic kidney disease (14 sources) Anemia of renal disease; 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: [Chronic kidney disease, unspecified] Onset: 8 01-23-2018 Chronic Complication of device; implant or graft (5 sources) Infection and inflammatory reaction due to other cardiac and vascular devices, implants and grafts, sequela; 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: [Infection and inflammatory reaction due to other cardiac and vascular devices, implants and grafts, subsequent encounter] Onset: 6 11-16-2015 Episodic Conduction disorders (20 sources) Left bundle branch block; 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: [Automatic implantable cardiac defibrillator in situ] Onset: 1 12-15-2010 Chronic Congestive heart failure; nonhypertensive (15 sources) Congestive heart failure; 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: [Heart failure, unspecified] Onset: 1 08-03-2011 Chronic Coronary atherosclerosis and other heart disease (20 sources) Atherosclerotic heart disease of samish coronary artery without angina pectoris; 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: [Coronary arteriosclerosis] Onset: 1 06-02-2016 Chronic Crushing injury or internal injury (2 sources) Crushing injury of wrist; 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: [Crushing injury of hand] Onset: 9 2018 Episodic Diabetes mellitus with complications (9 sources) Peripheral circulatory disorder associated with type 2 diabetes mellitus; 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: [Insulin treated type 2 diabetes mellitus] Onset: 1 12-15-2010 Chronic Diabetes mellitus without complication (7 sources) Type 2 diabetes mellitus; 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: [Diabetes mellitus without mention of complication, type II or unspecified type, not stated as uncontrolled] Onset: 0 08-09-2010 Chronic Disorders of lipid metabolism (8 sources) Hyperlipidemia; 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: [Hyperlipidemia, unspecified] Onset: 0 12-15-2010 Chronic Esophageal disorders (7 sources) Gastroesophageal reflux disease without esophagitis; 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: [Gastro-esophageal reflux disease without esophagitis] Onset: 0 01-23-2018 Chronic Essential hypertension (8 sources) Hypertensive disorder; 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: [Essential hypertension] Onset: 0 12-15-2010 Chronic Heart valve disorders (1 source) Mitral valve prolapse; 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: [Nonrheumatic mitral (valve) prolapse] Onset: 1 12-15-2010 Chronic Hyperplasia of prostate (7 sources) Benign prostatic hyperplasia; 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: [Benign prostatic hyperplasia without lower urinary tract symptoms] Onset: 4 11-07-2013 Chronic Nutritional deficiencies (1 source) Iron deficiency; 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: [Iron deficiency] Onset: 6 12-28-2015 Chronic Occlusion or stenosis of precerebral arteries (7 sources) Left carotid artery stenosis; 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: [Occlusion and stenosis of left carotid artery] Onset: 2 08-29-2021 Chronic Open wounds of extremities (2 sources) Traumatic amputation, finger, through metacarpophalangeal joint; 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: [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, initial encounter] Onset: 9 2018 Chronic Open wounds of extremities (1 source) Traumatic amputation, finger, through metacarpophalangeal joint; 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: [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, sequela] Onset: 9 2018 Chronic Other aftercare (1 source) Wound finding; 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: [Encounter for other specified aftercare] Episodic Other bone disease and musculoskeletal deformities (7 sources) Absence of hand; 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] Onset: 7 01-23-2018 Chronic Other circulatory disease (3 sources) H/O: cardiovascular disease; 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: [Personal history of sudden cardiac arrest] Onset: 2 03-08-2022 Episodic Other ear and sense organ disorders (2 sources) Hearing loss; 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: [Unspecified hearing loss, unspecified ear] Onset: 2 03-17-2022 Chronic Other ear and sense organ disorders (2 sources) Sensorineural hearing loss, bilateral; 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: [Sensorineural hearing loss, bilateral] Onset: 2 03-17-2022 Chronic Other lower respiratory disease (2 sources) Pulmonary congestion ; 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: [Other specified symptoms and signs involving the circulatory and respiratory systems] Onset: 6 Resolved: 7 12-26-2016 Chronic Other nutritional; endocrine; and metabolic disorders (2 sources) Hypomagnesemia; 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: [Hypomagnesemia] Onset: 5 02-12-2017 Chronic Lakshmi-; endo-; and myocarditis; cardiomyopathy (9 sources) Cardiomyopathy in diseases classified elsewhere; 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: [Primary idiopathic hypertrophic cardiomyopathy] Onset: 1 12-15-2010 Chronic Residual codes; unclassified (7 sources) Obstructive sleep apnea syndrome; 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: [Obstructive sleep apnea (adult) (pediatric)] 01-23-2018 Chronic Thyroid disorders (10 sources) Acquired hypothyroidism; 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: [Hypothyroidism] Onset: 2 05-29-2017 Chronic Unclassified (1 source) Long-term drug therapy; 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: [Other security assistant (current) drug therapy] Onset: 1 12-15-2010 Unclassified (1 source) Unknown / UNK(Unknown) Onset: 7 Unclassified (1 source) Other persistent atrial fibrillation; 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: [Persistent atrial fibrillation (HCC)] Onset: 8 Past or Other Problems Problem Classification Problem Date Documented Date Episodic/Chronic Anal and rectal conditions (7 sources) Disorder of large intestine; 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: [Other specified diseases of anus and rectum] Onset: 02-19-2012 02-19-2012 Episodic Bacterial infection (8 sources) Infection due to enterococcus; 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: [Infection due to Streptococcus group D] Onset: 11-15-2015 11-16-2015 Episodic Calculus of urinary tract (18 sources) Kidney stone; 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: [Calculus of kidney] Onset: 08-09-2010 Episodic Cancer of prostate (7 sources) History of malignant neoplasm of prostate; 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: [Personal history of malignant neoplasm of prostate] Onset: 08-27-2002 01-23-2018 Episodic Cancer; other and unspecified primary (1 source) Malignant pericardial effusion; 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: [Pericardial effusion (noninflammatory)] Onset: 12-15-2010 12-15-2010 Episodic Conditions associated with dizziness or vertigo (2 sources) Dizziness and giddiness; 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: [Dizziness and giddiness] Onset: 12-15-2010 Resolved: 06-02-2016 06-02-2016 Episodic Congestive heart failure; nonhypertensive (2 sources) Systolic dysfunction; 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: [Other ill-defined heart diseases] Onset: 09-13-2015 Resolved: 06-02-2016 06-02-2016 Episodic Coronary atherosclerosis and other heart disease (1 source) Presence of aortocoronary bypass graft; 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: [History of coronary artery bypass graft x 2] Onset: 05-22-2017 Episodic Deficiency and other anemia (1 source) Anemia; 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: [Anemia, unspecified] Onset: 12-22-2015 12-22-2015 Episodic Fluid and electrolyte disorders (1 source) Hypokalemia; 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: [Hypokalemia] Onset: 12-15-2010 12-15-2010 Episodic Genitourinary symptoms and ill-defined conditions (7 sources) Proteinuria; 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: [Proteinuria, unspecified] Onset: 10-14-2009 10-14-2009 Episodic Noninfectious gastroenteritis (6 sources) Chronic diarrhea; 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: [Noninfective gastroenteritis and colitis, unspecified] Onset: 11-22-2021 Episodic Nonspecific chest pain (2 sources) Chest discomfort; 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: [Other chest pain] Onset: 05-25-2015 Resolved: 06-02-2016 05-25-2015 Episodic Other aftercare (7 sources) Long-term current use of anticoagulant; 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: [prison (current) use of anticoagulants] Onset: 01-31-2016 03-28-2018 Episodic Other aftercare (7 sources) Patient encounter status; 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: [private mortgage banker safe (current) use of antithrombotics/antip latelets] Onset: 07-15-2017 01-23-2018 Episodic Other aftercare (7 sources) Long-term current use of oral hypoglycemic medication; 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: [private mortgage banker safe (current) use of oral hypoglycemic drugs] Onset: 07-15-2017 01-23-2018 Episodic Other aftercare (7 sources) Long-term current use of insulin; 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: [private mortgage banker safe (current) use of insulin] Onset: 04-27-2017 01-23-2018 Episodic Other aftercare (1 source) prison (current) use of anticoagulants; 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: [Anticoagulant long-term use] Onset: 03-13-2022 Episodic Other circulatory disease (3 sources) Carotid bruit; 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: [History of endocarditis] Onset: 09-13-2015 04-12-2017 Episodic Other circulatory disease (7 sources) History of endocarditis; 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: [Personal history of other diseases of the circulatory system] Onset: 11-15-2015 01-23-2018 Episodic Other circulatory disease (1 source) Personal history of sudden cardiac arrest; 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: [History of sudden cardiac arrest successfully resuscitated] Onset: 03-13-2022 Episodic Other diseases of kidney and ureters (9 sources) Cyst of kidney; 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: [Cyst of kidney, acquired] Onset: 02-18-2013 Episodic Other lower respiratory disease (2 sources) Dyspnea; 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: [Shortness of breath] Onset: 12-15-2010 Resolved: 06-02-2016 06-02-2016 Episodic Other screening for suspected conditions (not mental disorders or infectious disease) (7 sources) Serum creatinine raised; 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: [Other specified abnormal findings of blood chemistry] Onset: 03-28-2018 03-28-2018 Episodic Other skin disorders (1 source) Night sweats; 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: [Generalized hyperhidrosis] Onset: 11-15-2015 11-16-2015 Episodic Other upper respiratory disease (2 sources) Pain in throat; 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: [Acute pharyngitis, unspecified] Onset: 03-31-2016 Resolved: 12-26-2016 12-26-2016 Episodic Lakshmi-; endo-; and myocarditis; cardiomyopathy (4 sources) Acute and subacute infective endocarditis associated with another disorder; 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: [Cardiac tamponade] Onset: 12-15-2010 Resolved: 06-02-2016 11-06-2015 Episodic Residual codes; unclassified (7 sources) Family history of stroke; 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: [Family history of stroke] Onset: 01-23-2018 01-23-2018 Episodic Residual codes; unclassified (8 sources) Other specified personal risk factors, not elsewhere classified; 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: [Other specified personal history presenting hazards to health] Onset: 09-11-2019 09-11-2019 Episodic Spondylosis; intervertebral disc disorders; other back problems (7 sources) Chronic low back pain; 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: [Chronic low back pain] Onset: 01-31-2016 01-23-2018 Episodic Syncope (1 source) Syncope; 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: [Syncope and collapse] Onset: 02-12-2017 02-12-2017 Episodic Unclassified (9 sources) Body mass index (BMI) 26.0-26.9, adult; 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: [Body mass index (BMI) 27.0-27.9, adult] Onset: 04-07-2015 Resolved: 12-24-2015 05-29-2017 Episodic Unclassified (1 source) Problem Results Test Name Value Interpretation Reference Range Facil ity Vital Signs Date Time Vital Sign Value Performing Clinician Facility 11-22-2021 10:28-0400 Body height 188 cm Jayy Senior MD Work Phone: [facility] 11-22-2021 10:28-0400 Body weight 99.11 kg Jayy Senior MD Work Phone: [facility] 11-22-2021 10:28-0400 Diastolic blood pressure 72 mm[Hg] Jayy Senior MD Work Phone: [facility] 11-22-2021 10:28-0400 Heart rate 65 /min Jayy Senior MD Work Phone: [facility] 11-22-2021 10:28-0400 Systolic blood pressure 150 mm[Hg] Jayy Senior MD Work Phone: [facility] 05-29-2017 09:46-0400 BMI (Body Mass Index) 26.32 kg/m2 Bhavna Chiang PA-C [facility] Work Phone: 05-29-2017 09:46-0400 BP Diastolic 48 mm[Hg] Bhavna Chiang PA-C [facility] Work Phone: 05-29-2017 09:46-0400 BP Systolic 110 mm[Hg] Bhavna Chiang PA-C [facility] Work Phone: 05-29-2017 09:46-0400 Height 187.96 cm JAISON [facility] Work Phone: 05-29-2017 09:46-0400 Pulse (Heart Rate) 68 /min Bhavna Chiang PA-C [facility] Work Phone: 05-29-2017 09:46-0400 Respiratory Rate 18 /min JAISON [facility] Work Phone: 05-29-2017 09:46-0400 Weight 92.99 kg JAISON [facility] Work Phone: 05-18-2017 15:00-0400 Body Temperature 97.6 [degF] Bhavna Chiang PA-C [facility] Work Phone: 02-12-2017 13:00-0400 BP Diastolic 50 mm[Hg] JAISON [facility] Work Phone: 02-12-2017 13:00-0400 BP Systolic 130 mm[Hg] JAISON [facility] Work Phone: 11-07-2016 09:29-0400 BSA (Body Surface Area) 2.22 m2 JAISON [facility] Work Phone: 08-10-2016 10:13-0500 Height 187.96 cm JAISON [facility] Work Phone: 08-10-2016 10:13-0500 Weight 94 kg JAISON [facility] Work Phone: 01-21-2016 09:39-0400 Body Temperature 97.59 [degF] Bhavna Chiang PA-C [facility] Work Phone: NEGATED: Highlighted [id number] 10:24-0500 BMI (Body Mass Index) 30.63 kg/m2 Autumn Frost CONSTRUCTION FOREMAN [facility] Work Phone: NEGATED: Highlighted [id number] 10:24-0500 BP Diastolic 74 mm[Hg] Autumn Frost CONSTRUCTION FOREMAN [facility] Work Phone: NEGATED: Highlighted [id number] 10:24-0500 BP Systolic 129 mm[Hg] Autumncurtis Vanv CONSTRUCTION FOREMAN [facility] Work Phone: NEGATED: Highlighted [id number] 10:24-0500 Height 182.88 cm Autumncurtis Frost CONSTRUCTION FOREMAN [facility] Work Phone: NEGATED: Highlighted [id number] 10:24-0500 Height 183 cm Autumncurtis Frost CONSTRUCTION FOREMAN [facility] Work Phone: NEGATED: Highlighted [id number] 10:24-0500 Pulse (Heart Rate) 54 /min Autumn Frost LPN Crystal i [facility] Work Phone: NEGATED: Highlighted [id number] 10:24-0500 Weight 102.06 kg Autumn Frost CONSTRUCTION FOREMAN [facility] Work Phone: NEGATED: Highlighted [id number] 10:24-0500 Weight 102 kg Autumncurtis Vanv CONSTRUCTION FOREMAN [facility] Work Phone: Encounters Encounter Date Encounter Type Care Provider Facility Start: 03-26-2023 End: 03-26-2023 ambulatory BUNNY S LAMBERT Facility:[facility] Start: 03-24-2022 End: 03-24-2022 ambulatory Nurse Pob Work Phone: [facility] [place] Procedures Date Procedure Procedure Detail Performing Clinician Start: 11-22-2021 Urnls dip stick/tablet rgnt auto w/o microscopy Bulk Order Provider Start: 11-18-2021 Us retroperitoneal real time w/image complete Jayy Senior MD Work Phone: Start: 11-18-2021 Radiologic exam abdomen 3+ views Jayy Senior MD Work Phone: Start: 2018 End: 2018 Blood pressure within normal parameters - no follow-up required Liam Heath MD Work Phone: Start: 2018 End: 2018 BMI documented as above normal parameters - follow-up documented Liam Heath MD Work Phone: Start: 2018 End: 2018 Documentation of current medications Liam Heath MD Work Phone: Start: 2018 End: 2018 Pain assessment documented as negative - follow-up not required Liam Heath MD Work Phone: Start: 2018 End: 2018 Tobacco non-user Liam Heath MD Work Phone: Start: 2018 End: 2018 WHFO CUSTOM STATIC Liam Heath MD Work Phone: Start: 07-04-2017 End: 07-04-2017 Thyrotropin [Units/volume] in Serum or Plasma Bhavna Chiang PA-C Work Phone: Start: 07-04-2017 End: 07-04-2017 Thyroxine (T4) [Mass/volume] in Serum or Plasma Bhavna Chiang PA-C Work Phone: Start: 06-08-2017 End: 06-11-2017 *BMP Bhavna Chiang PA-C Work Phone: Start: 05-29-2017 End: 05-29-2017 Follow Up Appt Other Bhavna boss PA-C Work Phone: Start: 05-21-2017 End: 06-26-2017 Follow Up Appt 3 months Bhavna hubbard PA-C Work Phone: Start: 05-21-2017 End: 05-22-2017 Interrogation eval remote 90 d 1/2/quill winder ld dfb Bhavna Chiang PA-C Work Phone: Start: 05-21-2017 End: 06-26-2017 Pacer Clinic Bhavna Chiang PA-C Work Phone: Start: 05-18-2017 End: 05-18-2017 Follow Up Appt Other Bhavna boss PA-C Work Phone: Start: 04-27-2017 History of coronary artery bypass grafting History of coronary artery bypass graft x 2 Xr Mob Work Phone: Start: 04-16-2017 End: 04-23-2017 Interrogation eval remote 90 d 1/2/quill winder ld dfb Bhavna Chiang PA-C Work Phone: Start: 04-12-2017 End: 04-18-2017 Carotid duplex Bunny Verdin MD Start: 03-29-2017 End: 04-02-2017 Interrogation eval remote 90 d 1/2/quill winder ld dfb Bunny Verdin MD Start: 03-16-2017 End: 03-20-2017 Echocardiography Bhavna Chiang PA-C Work Phone: Start: 03-16-2017 End: 03-16-2017 Follow Up Appt Other Bhavna boss PA-C Work Phone: Start: 03-16-2017 End: 04-18-2017 Left Heart Cath Bhavna Chiang PA-C Work Phone: Start: 03-16-2017 End: 04-18-2017 Magnesium [Mass/volume] in Serum or Plasma Bhavna Chiang PA-C Work Phone: Start: 03-15-2017 End: 03-19-2017 Interrogation eval remote 90 d 1/2/quill winder ld dfb Kareem Moat MD Start: 02-12-2017 End: 02-12-2017 *BMP Bhavna Chiang PA-C Work Phone: Start: 02-12-2017 End: 02-12-2017 *CBC with Differential Bhavna mcknight PA-C Work Phone: Start: 02-12-2017 End: 02-12-2017 ECHOCARDIOGRAPH TECHNICIAN Bhavna Chiang PA-C Work Phone: Start: 02-12-2017 End: 02-12-2017 Follow Up Appt 6 weeks Bhavna mcknight PA-C Work Phone: Start: 02-12-2017 End: 02-13-2017 Interrogation eval remote 90 d 1/2/quill winder ld dfb Bhavna Chiang PA-C Work Phone: Start: 02-12-2017 End: 02-12-2017 Magnesium [Mass/volume] in Serum or Plasma Bhavna Chiang PA-C Work Phone: Start: 02-12-2017 End: 02-12-2017 Thyrotropin [Units/volume] in Serum or Plasma Bhavna Chiang PA-C Work Phone: Start: 02-12-2017 End: 02-12-2017 Thyroxine (T4) [Mass/volume] in Serum or Plasma Bhavna Chiang PA-C Work Phone: Start: 02-12-2017 End: 04-18-2017 Xtrnl mobile cv telemetry w/i&report 30 days Bhavna Chiang PA-C Work Phone: Start: 02-02-2017 End: 02-12-2017 Follow Up Appt 1 month Bunny Verdin MD Start: 02-02-2017 End: 02-05-2017 Interrogation eval remote 90 d 1/2/quill winder ld dfhiral Verdin MD Start: 02-02-2017 End: 02-12-2017 Pacer Clinic Bunny Verdin MD Start: 12-26-2016 End: 02-12-2017 Follow Up Appt 6 months Nic Hadley Start: 12-26-2016 End: 02-12-2017 MMM Bunny Verdin MD Start: 12-04-2016 End: 02-12-2017 Follow Up Appt 3 months Nic Hadley Start: 12-04-2016 End: 02-12-2017 Pacer Shagufta Verdin MD Start: 12-04-2016 End: 12-08-2016 Prgrmng dev eval implantable in persn 1 ld toby Verdin MD Start: 11-01-2016 End: 11-01-2016 Erythropoietin (EPO) [Units/volume] in Serum or Plasma Purvi R Les PATIENT SCHEDULING MANAGER Work Phone: Start: 10-31-2016 End: 10-31-2016 *CBC w/Diff - oncology ONLY Purvi R Gillian stevens PATIENT SCHEDULING MANAGER Work Phone: Start: 10-31-2016 End: 10-31-2016 *CMP Complete Metabolic Panel Purvi R Les PATIENT SCHEDULING MANAGER Work Phone: Start: 10-31-2016 End: 10-31-2016 Ferritin [Mass/volume] in Serum or Plasma Purvi R Les PATIENT SCHEDULING MANAGER Work Phone: Start: 10-31-2016 End: 10-31-2016 Iron and Iron binding capacity panel - Serum or Plasma Purvi R Les PATIENT SCHEDULING MANAGER Work Phone: Start: 10-23-2016 End: 02-12-2017 Follow Up Appt 1 month KEELY FaithC Work Phone: Start: 10-23-2016 End: 10-25-2016 Interrogation eval remote 90 d 1/2/quill winder ld dfb Bhavna Chiang PA-C Work Phone: Start: 10-23-2016 End: 02-12-2017 Pacer Clinic Bhavna Chiang PA-C Work Phone: Start: 08-29-2016 End: 02-12-2017 Follow Up Appt 1 month Bunny Verdin MD Start: 08-29-2016 End: 08-29-2016 Interrogation eval remote 90 d 1/2/quill winder ld dfb Bunny Verdin MD Start: 08-29-2016 End: 02-12-2017 Pacer Clinic Bunny Verdin MD Start: 07-31-2016 End: 08-03-2016 *CBC w/Diff - oncology ONLY Purvi R Gillian stevens PATIENT SCHEDULING MANAGER Work Phone: Start: 07-31-2016 End: 08-03-2016 *CMP Complete Metabolic Panel Purvi R Les PATIENT SCHEDULING MANAGER Work Phone: Start: 07-31-2016 End: 08-08-2016 Erythropoietin (EPO) [Units/volume] in Serum or Plasma Purvi R Les PATIENT SCHEDULING MANAGER Work Phone: Start: 07-31-2016 End: 08-03-2016 Ferritin [Mass/volume] in Serum or Plasma Purvi R Les PATIENT SCHEDULING MANAGER Work Phone: Start: 07-31-2016 End: 08-03-2016 Reticulocytes/100 erythrocytes in Blood Purvi R Les PATIENT SCHEDULING MANAGER Work Phone: Start: 07-24-2016 End: 07-24-2016 *BMP Bunny Verdin MD Start: 07-24-2016 End: 02-12-2017 Follow Up Appt 3 months Bhavna hubbard PA-C Work Phone: Start: 07-24-2016 End: 07-24-2016 Interrogation eval remote 90 d 1/2/quill winder ld dfb Bhavna Chiang PA-C Work Phone: Start: 07-24-2016 End: 07-24-2016 Magnesium [Mass/volume] in Serum or Plasma Bunny Verdin MD Start: 07-24-2016 End: 03-20-2017 Pacer Clinic Bhavna Chiang PA-C Work Phone: Start: 07-24-2016 End: 07-24-2016 Thyrotropin [Units/volume] in Serum or Plasma Bunny Verdin MD Start: 06-21-2016 End: 06-21-2016 ECHOCARDIOGRAPH TECHNICIAN Bhavna Chiang PA-C Work Phone: Start: 06-21-2016 End: 02-12-2017 Follow Up Appt 1 month Bhavna mcknight PA-C Work Phone: Start: 06-21-2016 End: 06-21-2016 Follow Up Appt 6 months Bhavna hubbard PA-C Work Phone: Start: 06-21-2016 End: 06-22-2016 Interrogation eval remote 90 d 1/2/quill winder ld dfb Bhavna Chiang PA-C Work Phone: Start: 06-21-2016 End: 02-12-2017 Pacer [facility] Bhavna Chiang PA-C Work Phone: Start: 06-02-2016 End: 06-12-2016 *CMP Complete Metabolic Panel Rachid Dagoberto Malone DO Start: 06-02-2016 End: 06-12-2016 Ferritin [Mass/volume] in Serum or Plasma Rachid Dagoberto Malone Start: 06-02-2016 End: 06-12-2016 Reticulocytes/100 erythrocytes in Blood Rachid Dagoberto KingstonFaisal Start: 05-22-2016 End: 05-29-2016 Follow Up Appt 1 month Bunny Verdin MD Start: 05-22-2016 End: 05-23-2016 Interrogation eval remote 90 d 1/2/quill winder ld dfhiral Verdin MD Start: 05-22-2016 End: 05-29-2016 Pacer Clinic Bunny Verdin MD Start: 04-17-2016 End: 05-29-2016 Follow Up Appt 3 months Nic Hadley Start: 04-17-2016 End: 04-17-2016 Interrogation eval remote 90 d 1/2/quill winder ld toby Verdin MD Start: 04-17-2016 End: 05-29-2016 Pacer Clinic Bunny Verdin MD Start: 03-14-2016 End: 05-29-2016 Follow Up Appt 1 month Bunny Verdin MD Start: 03-14-2016 End: 03-19-2016 Interrogation eval remote 90 d 1/2/quill winder ld toby Verdin MD Start: 03-14-2016 End: 05-29-2016 Pacer Clinic Bunny Verdin MD Start: 03-03-2016 End: 03-31-2016 *CMP Complete Metabolic Panel Rachid Dagoberto Malone DO Start: 03-03-2016 End: 03-31-2016 Ferritin [Mass/volume] in Serum or Plasma Rachid Dagoberto Malone DO Start: 03-03-2016 End: 05-29-2016 Follow Up Appt 3 months Nic Hadley Start: 03-03-2016 End: 03-10-2016 Interrogation eval remote 90 d 1/2/quill winder ld dfhiral Verdin MD Start: 03-03-2016 End: 05-29-2016 MMM Bunny Verdin MD Start: 02-08-2016 End: 03-03-2016 Follow Up Appt 1 month Bunny Verdin MD Start: 02-08-2016 End: 02-14-2016 Nurse, Teaching, Wound Check (no charge) Bunny Verdin MD Start: 02-08-2016 End: 03-03-2016 Pacer Clinic Bunny Verdin MD Start: 01-17-2016 End: 01-18-2016 *CBC with Differential Ronit J Signs Start: 01-17-2016 End: 01-18-2016 *CMP Complete Metabolic Panel Ronit Bonner MD Start: 01-10-2016 End: 01-11-2016 *CBC with Differential Ronit J Signs Start: 01-10-2016 End: 01-11-2016 C reactive protein [Mass/volume] in Serum or Plasma by High sensitivity method Ronit Bonner MD Start: 01-10-2016 End: 01-11-2016 Erythrocyte sedimentation rate Ronit J Kailey SPARKS Start: 12-28-2015 End: 12-28-2015 *CBC with Differential Ronit J Signs Start: 12-28-2015 End: 12-28-2015 C reactive protein [Mass/volume] in Serum or Plasma by High sensitivity method Ronit Bonner MD Start: 12-28-2015 End: 12-28-2015 Erythrocyte sedimentation rate Ronit J Kailey SPARKS Start: 12-24-2015 End: 12-24-2015 ECHOCARDIOGRAPH TECHNICIAN Bhavna Chiang PA-C Work Phone: Start: 12-24-2015 End: 12-24-2015 Follow Up Appt 2 months Bhavna hubbard PA-C Work Phone: Start: 12-22-2015 End: 12-28-2015 *MISC - Miscellaneous Lab Test #1 Ronit Bonner MD Start: 12-22-2015 End: 12-27-2015 Ferritin [Mass/volume] in Serum or Plasma Ronit Bonner MD Start: 12-22-2015 End: 12-27-2015 Iron [Mass/volume] in Serum or Plasma Ronit Bonner MD Start: 12-22-2015 End: 12-27-2015 Iron binding capacity [Mass/volume] in Serum or Plasma Ronit Bonner MD Start: 12-09-2015 End: 12-13-2015 Bacteria identified in Blood by Culture Ronit Bonner MD Start: 11-29-2015 End: 12-13-2015 *BMP Ronit Bonner MD Start: 11-29-2015 End: 12-13-2015 *CBC with Differential Ronit Bonner MD Start: 11-29-2015 End: 12-13-2015 Erythrocyte sedimentation rate Ronit Bonner MD Start: 10-13-2015 End: 10-22-2015 *BUFFY Verdin MD Start: 10-13-2015 End: 10-22-2015 CBC W Auto Differential panel - Blood Bunny Verdin MD Start: 09-15-2015 End: 10-06-2015 *BUFFY Verdin MD Start: 09-15-2015 End: 10-06-2015 Cardiac Rehab Bunny Verdin MD Start: 09-15-2015 End: 09-15-2015 Ecg routine ecg w/least 12 lds w/i&r Bunny Verdin MD Start: 09-15-2015 End: 10-06-2015 Follow Up Appt 3 months Nic Hadley Start: 09-15-2015 End: 09-15-2015 MMM Bunny Verdin MD Start: 09-15-2015 End: 10-22-2015 Pacer Clinic Bunny Verdin MD Start: 09-15-2015 End: 09-15-2015 Prgrmng dev eval implantable in persn 1 ld dfb Bunny Verdin MD Start: 08-02-2015 End: 10-06-2015 Magnesium [Mass/volume] in Serum or Plasma Bhavna Chiang PA-C Work Phone: Start: 07-02-2015 End: 10-06-2015 *Hepatic Function Panel Nic Hadley Start: 07-02-2015 End: 10-06-2015 Lipid 1996 panel - Serum or Plasma Bunny Verdin MD Start: 06-07-2015 End: 06-08-2015 Documentation of current medications Bhavna Chiang PA-C Work Phone: Start: 06-07-2015 End: 06-07-2015 Follow Up Appt Other Bhavna boss PA-C Work Phone: Start: 06-07-2015 End: 07-02-2015 Magnesium [Mass/volume] in Serum or Plasma Bhavna Chiang PA-C Work Phone: Start: 06-07-2015 End: 06-08-2015 Pedal pulse taking Bhavna Chiang PA-C Work Phone: Start: 05-31-2015 End: 05-31-2015 Magnesium [Mass/volume] in Serum or Plasma Bhavna Chiang PA-C Work Phone: Start: 05-25-2015 End: 05-26-2015 *BMP Bhavna Chiang PA-C Work Phone: Start: 05-25-2015 End: 05-26-2015 *CBC with Differential Bhavna mcknight PA-C Work Phone: Start: 05-25-2015 End: 05-27-2015 24 hour holter monitor Bhavna cmknight PA-C Work Phone: Start: 05-25-2015 End: 05-26-2015 Documentation of current medications Bhavna Chiang PA-C Work Phone: Start: 05-25-2015 End: 05-25-2015 Ecg routine ecg w/least 12 lds w/i&r Bhavna Chiang PA-C Work Phone: Start: 05-25-2015 End: 05-25-2015 Follow Up Appt Other Bhavna boss PA-C Work Phone: Start: 05-25-2015 End: 05-26-2015 Magnesium [Mass/volume] in Serum or Plasma Bhavna Chiang PA-C Work Phone: Start: 05-25-2015 End: 05-25-2015 MMM Bhavna Chiang PA-C Work Phone: Start: 05-25-2015 End: 05-26-2015 Natriuretic peptide B [Mass/volume] in Blood Bhavna Chiang PA-C Work Phone: Start: 05-25-2015 End: 05-31-2015 Nuclear stress test -Lexiscan Bhavna Chiang PA-C Work Phone: Start: 05-25-2015 End: 05-26-2015 Thyrotropin [Units/volume] in Serum or Plasma Bhavna Chiang PA-C Work Phone: Start: 04-07-2015 End: 04-08-2015 Documentation of current medications Bhavna Chiang PA-C Work Phone: Start: 04-07-2015 End: 04-07-2015 Ecg routine ecg w/least 12 lds w/i&r Bhavna Chiang PA-C Work Phone: Start: 04-07-2015 End: 04-07-2015 Follow Up Appt 6 months Bhavna hubbard PA-C Work Phone: Start: 04-07-2015 End: 04-08-2015 Pedal pulse taking Bhavna Chiang PA-C Work Phone: Start: 04-07-2015 End: 04-07-2015 PFM Bhavna Chiang PA-C Work Phone: Start: 10-06-2014 End: 10-07-2014 Documentation of current medications Bunny Verdin MD Start: 10-06-2014 End: 03-30-2015 Follow Up Appt 6 months Nic Hadley Start: 10-06-2014 End: 03-30-2015 AG Verdin MD Start: 10-06-2014 End: 10-07-2014 Pedal pulse taking Bunny Verdin MD Start: 03-24-2014 End: 03-30-2015 48 hour holter monitor Bhavna mcknight PA-C Work Phone: Start: 03-24-2014 End: 03-24-2014 ECHOCARDIOGRAPH TECHNICIAN Bhavna Chiang PA-C Work Phone: Start: 03-24-2014 End: 03-24-2014 Follow Up Appt 6 months Bhavna hubbard PA-C Work Phone: Start: 09-16-2013 End: 09-16-2013 Follow Up Appt 6 months Nic Hadley Start: 09-16-2013 End: 09-16-2013 AG Verdin MD Start: 08-27-2013 End: 12-22-2013 *Hepatic Function Panel Nic Hadley Start: 08-27-2013 End: 12-22-2013 Lipid 1996 panel - Serum or Plasma Bunny Verdin MD Start: 05-29-2013 End: 03-09-2014 24 hour holter monitor Bhavna mcknight PA-C Work Phone: Start: 05-29-2013 End: 05-29-2013 ECHOCARDIOGRAPH TECHNICIAN Bhavna Chiang PA-C Work Phone: Start: 05-29-2013 End: 05-29-2013 Follow Up Appt 3 months Bhavna hubbard PA-C Work Phone: Start: 02-25-2013 End: 03-06-2013 *Hepatic Function Panel Nic Hadley Start: 02-25-2013 End: 05-21-2013 Echocardiography Bunny Verdin MD Start: 02-25-2013 End: 02-25-2013 Follow Up Appt 3 months Nic Hadley Start: 02-25-2013 End: 03-06-2013 Lipid 1996 panel - Serum or Plasma Bunny Verdin MD Start: 02-25-2013 End: 02-25-2013 MMM Bunny Verdin MD Start: 02-17-2013 End: 03-06-2013 *Hepatic Function Panel Nic Hadley Start: 02-17-2013 End: 03-06-2013 Lipid 1996 panel - Serum or Plasma Bunny Verdin MD Start: 01-06-2013 End: 01-06-2013 INR in Platelet poor plasma by Coagulation assay Bunny Verdin MD Start: 01-06-2013 End: 01-06-2013 Natriuretic peptide B [Mass/volume] in Blood Bunny Verdin MD Start: 11-12-2012 End: 01-06-2013 INR in Platelet poor plasma by Coagulation assay Fran Jewell MD Start: 10-22-2012 End: 01-06-2013 *BUFFY Jewell MD Start: 10-22-2012 End: 01-06-2013 *Hepatic Function Panel Fran Jewell MD Start: 10-22-2012 End: 10-22-2012 Ecg routine ecg w/least 12 lds w/i&r Fran Jewell MD Start: 10-22-2012 End: 10-22-2012 Follow Up Appt 4 months Fran Jewell MD Start: 10-22-2012 End: 01-06-2013 Lipid 1996 panel - Serum or Plasma Fran Jewell MD Start: 10-22-2012 End: 01-06-2013 Magnesium [Mass/volume] in Serum or Plasma Fran Jewell MD Start: 10-22-2012 End: 01-06-2013 Thyrotropin [Units/volume] in Serum or Plasma Fran Jewell MD Start: 10-22-2012 End: 01-06-2013 Thyroxine (T4) [Mass/volume] in Serum or Plasma Fran Jewell MD Start: 09-05-2012 End: 09-12-2012 Thyrotropin [Units/volume] in Serum or Plasma Fran Jewell MD Start: 09-05-2012 End: 09-12-2012 Thyroxine (T4) [Mass/volume] in Serum or Plasma Fran Jewell MD Start: 06-20-2012 End: 09-17-2012 *BUFFY Jewell MD Start: 06-20-2012 End: 09-17-2012 Magnesium [Mass/volume] in Serum or Plasma Fran Jewell MD Start: 06-13-2012 End: 06-13-2012 *BMP Fran Jewell MD Start: 06-13-2012 End: 06-13-2012 *Hepatic Function Panel Fran Jewell MD Start: 06-13-2012 End: 10-22-2012 Chest x-ray Fran Jewell MD Start: 06-13-2012 End: 06-13-2012 Follow Up Appt 4 months Fran Jewell MD Start: 06-13-2012 End: 06-13-2012 Magnesium [Mass/volume] in Serum or Plasma Fran Jewell MD Start: 06-13-2012 End: 06-13-2012 Pulmonary Fuction Test - complete Fran Jewell MD Start: 06-13-2012 End: 06-13-2012 Thyrotropin [Units/volume] in Serum or Plasma Fran Jewlel MD Start: 06-13-2012 End: 06-13-2012 Thyroxine (T4) [Mass/volume] in Serum or Plasma Fran Jewell MD Start: 05-29-2012 End: 06-05-2012 *BMP Fran Jewell MD Start: 05-29-2012 End: 06-05-2012 *Hepatic Function Panel Fran Jewell MD Start: 05-29-2012 End: 06-05-2012 Magnesium [Mass/volume] in Serum or Plasma Fran Jewell MD Start: 05-29-2012 End: 06-05-2012 Thyrotropin [Units/volume] in Serum or Plasma Fran Jewell MD Start: 05-29-2012 End: 06-05-2012 Thyroxine (T4) [Mass/volume] in Serum or Plasma Fran Jewell MD Start: 03-12-2012 End: 03-12-2012 Follow Up Appt 3 months Fran Jewell MD Start: 03-10-2012 End: 03-10-2012 *Hepatic Function Panel Fran Jewell MD Start: 03-10-2012 End: 03-10-2012 Lipid 1996 panel - Serum or Plasma Fran Jewell MD Start: 02-28-2012 End: 03-10-2012 *Hepatic Function Panel Fran Jewell MD Start: 02-28-2012 End: 03-10-2012 Thyrotropin [Units/volume] in Serum or Plasma Fran Jewell MD Start: 02-28-2012 End: 03-10-2012 Thyroxine (T4) [Mass/volume] in Serum or Plasma Fran Jewell MD Start: 12-21-2011 End: 12-21-2011 Ecg routine ecg w/least 12 lds w/i&r Fran Jewell MD Start: 12-21-2011 End: 12-21-2011 Follow Up Appt 3 months Fran Jewell MD Start: 10-09-2011 End: 10-09-2011 *Hepatic Function Panel Fran Jewell MD Start: 10-09-2011 End: 10-09-2011 Lipid 1996 panel - Serum or Plasma Fran Jewell MD Start: 10-09-2011 End: 10-09-2011 Thyrotropin [Units/volume] in Serum or Plasma Fran Jewell MD Start: 10-09-2011 End: 10-09-2011 Thyroxine (T4) [Mass/volume] in Serum or Plasma Fran Jewell MD Start: 09-14-2011 End: 09-14-2011 Ecg routine ecg w/least 12 lds w/i&r Fran Jewell MD Start: 09-14-2011 End: 09-14-2011 eRx Transmitted during this visit (Medicare only) Fran Jewell MD Start: 09-14-2011 End: 09-14-2011 Follow Up Appt 3 months Fran Jewell MD Start: 09-05-2011 End: 09-11-2011 *BMP Fran Jewell MD Start: 09-05-2011 End: 09-11-2011 *Hepatic Function Panel Fran Jewell MD Start: 09-05-2011 End: 09-11-2011 Lipid 1996 panel - Serum or Plasma Fran Jewell MD Start: 09-05-2011 End: 09-11-2011 Magnesium [Mass/volume] in Serum or Plasma Fran Jewell MD Start: 09-05-2011 End: 09-11-2011 Thyrotropin [Units/volume] in Serum or Plasma Fran Jewell MD Start: 09-05-2011 End: 09-11-2011 Thyroxine (T4) [Mass/volume] in Serum or Plasma Fran Jewell MD Start: 08-01-2011 End: 08-01-2011 Ecg routine ecg w/least 12 lds w/i&r Fran Jewell MD Start: 08-01-2011 End: 08-01-2011 Follow Up Appt 6 weeks Fran Jewell MD Start: 07-13-2011 End: 09-05-2011 Ecg routine ecg w/least 12 lds w/i&r Fran Jewell MD Plan of Treatment Date Care Activity Detail Author Start: 04-05-2028 Urine microalbumin profile [facility] Start: 04-27-2022 Influenza vaccination [facility] Start: 08-27-2021 ADVANCE DIRECTIVE DISCUSSION ADVANCE DIRECTIVE DISCUSSION [facility] Start: 04-27-2021 Influenza vaccination INFLUENZA (#1) [facility] Start: 03-27-2021 COVID-19 VACCINE (4 - Booster) COVID-19 VACCINE (4 - Booster) [facility] Start: 2018 End: 2018 Appointment Appointment [facility] Work Phone: Start: 2018 End: 2018 Radex hand minimum 3 views XR HAND 3+ VWS-LT [facility] Work Phone: Start: 05-01-2018 Hepatitis B screening URINE ALBUMIN:CREATININE RATIO [facility] Start: 10-19-2017 Hemoglobin A1c/Hemoglobin.total in Blood HBA1C [facility] Start: 08-29-2017 End: 08-29-2017 Appointment Appointment [facility] Work Phone: Start: 07-06-2017 End: 07-04-2017 Thyroid stimulating hormone (TSH) *TSH [facility] Work Phone: Start: 07-06-2017 End: 07-04-2017 Thyroxine (T4) *T4 (Total) [facility] Work Phone: Start: 07-06-2017 End: 07-06-2017 Appointment Appointment [facility] Work Phone: Start: 06-08-2017 End: 06-11-2017 *BMP *BMP [facility] Work Phone: Start: 05-29-2017 End: 05-29-2017 Follow Up Appt Other Follow Up Appt Other [facility] Work Phone: Start: 05-25-2017 End: 05-18-2017 *BMP *BMP [facility] Work Phone: Start: 05-21-2017 End: 06-26-2017 Follow Up Appt 3 months Follow Up Appt 3 months [facility] Work Phone: Start: 05-21-2017 End: 06-26-2017 Pacer Clinic Pacer Clinic [facility] Work Phone: Start: 05-18-2017 End: 05-18-2017 Follow Up Appt Other Follow Up Appt Other [facility] Work Phone: Start: 05-01-2017 End: 11-07-2016 *CBC w/Diff - oncology ONLY *CBC w/Diff - oncology ONLY [facility] Work Phone: Start: 05-01-2017 End: 11-07-2016 *CMP Complete Metabolic Panel *CMP Complete Metabolic Panel [facility] Work Phone: Start: 05-01-2017 End: 11-07-2016 Ferritin *Ferritin [facility] Work Phone: Start: 05-01-2017 End: 11-07-2016 Iron and Iron binding capacity panel - Serum or Plasma *IBC Iron & Total Iron Binding Capacity [facility] Work Phone: Start: 04-12-2017 End: 04-13-2017 Carotid duplex Carotid duplex [facility] Work Phone: Start: 03-16-2017 End: 03-20-2017 Echocardiography Echocardiogram (complete) [facility] Work Phone: Start: 03-16-2017 End: 03-16-2017 Follow Up Appt Other Follow Up Appt Other [facility] Work Phone: Start: 03-16-2017 End: 04-18-2017 Left Heart Cath Left Heart Cath [facility] Work Phone: Start: 03-16-2017 End: 04-18-2017 Magnesium *Magnesium [facility] Work Phone: Start: 02-12-2017 End: 02-12-2017 *BMP *BMP [facility] Work Phone: Start: 02-12-2017 End: 02-12-2017 *CBC with Differential *CBC with Differential [facility] Work Phone: Start: 02-12-2017 End: 02-12-2017 ECHOCARDIOGRAPH TECHNICIAN ECHOCARDIOGRAPH TECHNICIAN [facility] Work Phone: Start: 02-12-2017 End: 02-12-2017 Follow Up Appt 6 weeks Follow Up Appt 6 weeks [facility] Work Phone: Start: 02-12-2017 End: 02-12-2017 Magnesium *Magnesium [facility] Work Phone: Start: 02-12-2017 End: 02-12-2017 Thyroid stimulating hormone (TSH) *TSH [facility] Work Phone: Start: 02-12-2017 End: 02-12-2017 Thyroxine (T4) *T4 (Total) [facility] Work Phone: Start: 02-12-2017 End: 02-12-2017 Xtrnl mobile cv telemetry w/i&report 30 days 30 Day Holter Monitor [facility] Work Phone: Start: 02-02-2017 End: 02-12-2017 Follow Up Appt 1 month Follow Up Appt 1 month [facility] Work Phone: Start: 02-02-2017 End: 02-12-2017 Pacer Clinic Pacer Clinic [facility] Work Phone: Start: 12-26-2016 End: 02-12-2017 Follow Up Appt 6 months Follow Up Appt 6 months [facility] Work Phone: Start: 12-26-2016 End: 02-12-2017 MMM MMM [facility] Work Phone: Start: 12-04-2016 End: 02-12-2017 Follow Up Appt 3 months Follow Up Appt 3 months [facility] Work Phone: Start: 12-04-2016 End: 02-12-2017 Pacer Clinic [facility] [place] [facility] Work Phone: Start: 11-08-2016 End: 10-31-2016 *CBC w/Diff - oncology ONLY *CBC w/Diff - oncology ONLY [facility] Work Phone: Start: 11-08-2016 End: 10-31-2016 *CMP Complete Metabolic Panel *CMP Complete Metabolic Panel [email or web address] Work Phone: Start: 11-08-2016 End: 11-01-2016 Erythropoietin *MICHAEL- Erythropoietin [email or web address] Work Phone: Start: 11-08-2016 End: 10-31-2016 Ferritin *Ferritin [facility] Work Phone: Start: 11-08-2016 End: 10-31-2016 Iron and Iron binding capacity panel - Serum or Plasma *IBC Iron & Total Iron Binding Capacity [email or web address] Work Phone: Start: 10-23-2016 End: 02-12-2017 Follow Up Appt 1 month Follow Up Appt 1 month [facility] Work Phone: Start: 10-23-2016 End: 02-12-2017 [facility] Work Phone: Start: 10-06-2016 Hepatitis B surface antibody level LDL CHOLESTEROL [facility] Start: 08-29-2016 End: 02-12-2017 Follow Up Appt 1 month Follow Up Appt 1 month [facility] Work Phone: Start: 08-29-2016 End: 02-12-2017 [facility] Work Phone: Start: 08-10-2016 End: 08-10-2016 Office outpatient visit 25 minutes [id number] Ofc Vst, Est Level IV [facility] Work Phone: Start: 07-31-2016 End: 08-03-2016 *CBC w/Diff - oncology ONLY *CBC w/Diff - oncology ONLY [facility] Work Phone: Start: 07-31-2016 End: 08-03-2016 *CMP Complete Metabolic Panel *CMP Complete Metabolic Panel [facility] Work Phone: Start: 07-31-2016 End: 06-08-2016 *MISC - Miscellaneous Lab Test #1 *MISC - Miscellaneous Lab Test #1 [facility] Work Phone: Start: 07-31-2016 End: 08-08-2016 Erythropoietin *MICHAEL- Erythropoietin [facility] Work Phone: Start: 07-31-2016 End: 08-03-2016 Ferritin *Ferritin [facility] Work Phone: Start: 07-31-2016 End: 08-03-2016 Reticulocytes/100 erythrocytes *Reticulocyte Count [facility] Work Phone: Start: 07-24-2016 End: 07-24-2016 *BMP *BMP [facility] Work Phone: Start: 07-24-2016 End: 02-12-2017 Follow Up Appt 3 months Follow Up Appt 3 months [facility] Work Phone: Start: 07-24-2016 End: 07-24-2016 Magnesium *Magnesium [facility] Work Phone: Start: 07-24-2016 End: 03-20-2017 Pacer Clinic Pacer Clinic [facility] Work Phone: Start: 07-24-2016 End: 07-24-2016 Thyroid stimulating hormone (TSH) *TSH [facility] Work Phone: Start: 06-21-2016 End: 06-21-2016 ECHOCARDIOGRAPH TECHNICIAN ECHOCARDIOGRAPH TECHNICIAN [facility] Work Phone: Start: 06-21-2016 End: 02-12-2017 Follow Up Appt 1 month Follow Up Appt 1 month [facility] Work Phone: Start: 06-21-2016 End: 06-21-2016 Follow Up Appt 6 months Follow Up Appt 6 months [facility] Work Phone: Start: 06-21-2016 End: 02-12-2017 Pacer Clinic Pac[facility] Clinic [facility] Work Phone: Start: 06-02-2016 End: 03-31-2016 *CBC with Differential *CBC with Differential [facility] Work Phone: Start: 06-02-2016 End: 06-12-2016 *CMP Complete Metabolic Panel *CMP Complete Metabolic Panel [facility] Work Phone: Start: 06-02-2016 End: 03-31-2016 *MISC - Miscellaneous Lab Test #1 *MISC - Miscellaneous Lab Test #1 [facility] Work Phone: Start: 06-02-2016 End: 06-12-2016 Ferritin *Ferritin [facility] Work Phone: Start: 06-02-2016 End: 06-12-2016 Reticulocytes/100 erythrocytes *RETIC Reticulocyte Count Manul [facility] Work Phone: Start: 05-22-2016 End: 05-29-2016 Follow Up Appt 1 month Follow Up Appt 1 month [facility] Work Phone: Start: 05-22-2016 End: 05-29-2016 Pacer Clinic Pac[facility] Clinic [facility] Work Phone: Start: 04-17-2016 End: 05-29-2016 Follow Up Appt 3 months Follow Up Appt 3 months [facility] Work Phone: Start: 04-17-2016 End: 05-29-2016 Pacer Clinic Pacer Clinic [facility] Work Phone: Start: 03-31-2016 End: 03-31-2016 ENT referral ENT referral Connor Navarro, [address] [place], [address] [facility] Work Phone: Start: 03-14-2016 End: 05-29-2016 Follow Up Appt 1 month Follow Up Appt 1 month [facility] Work Phone: Start: 03-14-2016 End: 05-29-2016 Pacer Clinic [facility] Work Phone: Start: 03-03-2016 End: 01-25-2016 *CBC with Differential *CBC with Differential [facility] Work Phone: Start: 03-03-2016 End: 03-31-2016 *CMP Complete Metabolic Panel *CMP Complete Metabolic Panel [facility] Work Phone: Start: 03-03-2016 End: 01-25-2016 *MISC - Miscellaneous Lab Test #1 *MISC - Miscellaneous Lab Test #1 [facility] Work Phone: Start: 03-03-2016 End: 03-31-2016 Ferritin *Ferritin [facility] Work Phone: Start: 03-03-2016 End: 05-29-2016 Follow Up Appt 3 months Follow Up Appt 3 months [facility] Work Phone: Start: 03-03-2016 End: 05-29-2016 MMM MMM [facility] Work Phone: Start: 02-08-2016 End: 03-03-2016 Follow Up Appt 1 month Follow Up Appt 1 month [facility] Work Phone: Start: 02-08-2016 End: 03-03-2016 Pacer Clinic Pac[facility] Clinic [facility] Work Phone: Start: 01-17-2016 End: 01-18-2016 *CBC with Differential *CBC with Differential [facility] Work Phone: Start: 01-17-2016 End: 01-18-2016 *CMP Complete Metabolic Panel *CMP Complete Metabolic Panel [facility] Work Phone: Start: 01-17-2016 End: 01-18-2016 Blood Culture Blood Culture [facility] Work Phone: Start: 01-10-2016 End: 01-11-2016 *CBC with Differential *CBC with Differential [facility] Work Phone: Start: 01-10-2016 End: 01-11-2016 C reactive protein (hsCRP) *CRP - C-Reative Protein [facility] Work Phone: Start: 01-10-2016 End: 01-11-2016 Erythrocyte sedimentation rate *Sedimentation Rate (ESR) [facility] Work Phone: Start: 12-28-2015 End: 12-28-2015 *CBC with Differential *CBC with Differential [facility] Work Phone: Start: 12-28-2015 End: 12-28-2015 C reactive protein (hsCRP) *CRP - C-Reative Protein [facility] Work Phone: Start: 12-28-2015 End: 12-28-2015 Erythrocyte sedimentation rate *Sedimentation Rate (ESR) [facility] Work Phone: Start: 12-28-2015 End: 12-28-2015 Oncology Referral Oncology Referral Rachid Malone DO, [facility], [address], [place], [address] [facility] Work Phone: Start: 12-24-2015 End: 12-24-2015 ECHOCARDIOGRAPH TECHNICIAN ECHOCARDIOGRAPH TECHNICIAN [facility] Work Phone: Start: 12-24-2015 End: 12-24-2015 Follow Up Appt 2 months Follow Up Appt 2 months [facility] Work Phone: Start: 12-22-2015 End: 12-28-2015 *MISC - Miscellaneous Lab Test #1 *MISC - Miscellaneous Lab Test #1 [facility] Work Phone: Start: 12-22-2015 End: 12-22-2015 Blood occult peroxidase actv qual feces 1 deter Hemoccult [facility] Work Phone: Start: 12-22-2015 End: 12-27-2015 Ferritin *Ferritin [facility] Work Phone: Start: 12-22-2015 End: 12-27-2015 Iron *Iron [facility] Work Phone: Start: 12-22-2015 End: 12-27-2015 Iron binding capacity [Mass/volume] in Serum or Plasma *Iron Binding Capacity [facility] Work Phone: Start: 12-09-2015 End: 12-13-2015 Bacteria culture *CUB - Culture, Blood [facility] Work Phone: Start: 11-29-2015 End: 12-13-2015 *BMP *BMP [facility] Work Phone: Start: 11-29-2015 End: 12-13-2015 *CBC with Differential *CBC with Differential [facility] Work Phone: Start: 11-29-2015 End: 12-13-2015 Erythrocyte sedimentation rate *Sedimentation Rate (ESR) [facility] Work Phone: Start: 10-13-2015 End: 10-22-2015 *BMP *BMP [facility] Work Phone: Start: 10-13-2015 End: 10-22-2015 CBC W Auto Differential panel - Blood *CBC without Diff [facility] Work Phone: Start: 09-15-2015 End: 10-06-2015 *BMP *BMP [facility] Work Phone: Start: 09-15-2015 End: 10-06-2015 Cardiac Rehab Cardiac Rehab [facility] Work Phone: Start: 09-15-2015 End: 09-15-2015 Ecg routine ecg w/least 12 lds w/i&r EKG (In office) [facility] Work Phone: Start: 09-15-2015 End: 10-06-2015 Follow Up Appt 3 months Follow Up Appt 3 months [facility] Work Phone: Start: 09-15-2015 End: 09-15-2015 MMM MMM [facility] Work Phone: Start: 09-15-2015 End: 10-22-2015 Pacer Clinic Pacer Clinic [facility] Work Phone: Start: 08-02-2015 End: 10-06-2015 Magnesium *Magnesium [facility] Work Phone: Start: 07-02-2015 End: 10-06-2015 *Hepatic Function Panel *Hepatic Function Panel [facility] Work Phone: Start: 07-02-2015 End: 10-06-2015 Lipid panel [AGGREGATE] *Lipid Profile CC PCP [facility] Work Phone: Start: 06-07-2015 End: 06-07-2015 Follow Up Appt Other Follow Up Appt Other [facility] Work Phone: Start: 06-07-2015 End: 07-02-2015 Magnesium *Magnesium [facility] Work Phone: Start: 05-31-2015 End: 05-31-2015 Magnesium *Magnesium [facility] Work Phone: Start: 05-25-2015 End: 05-26-2015 *BMP *BMP [facility] Work Phone: Start: 05-25-2015 End: 05-26-2015 *CBC with Differential *CBC with Differential [facility] Work Phone: Start: 05-25-2015 End: 05-25-2015 24 hour holter monitor 24 hour holter monitor [facility] Work Phone: Start: 05-25-2015 End: 05-26-2015 BNP *Brain Natriuretic Peptide BNP [facility] Work Phone: Start: 05-25-2015 End: 05-25-2015 Ecg routine ecg w/least 12 lds w/i&r EKG (In office) [facility] Work Phone: Start: 05-25-2015 End: 05-25-2015 Follow Up Appt Other Follow Up Appt Other [facility] Work Phone: Start: 05-25-2015 End: 05-26-2015 Magnesium *Magnesium [facility] Work Phone: Start: 05-25-2015 End: 05-25-2015 MMM MMM [facility] Work Phone: Start: 05-25-2015 End: 05-25-2015 Nuclear stress test -Lexiscan Nuclear stress test -Lexiscan [facility] Work Phone: Start: 05-25-2015 End: 05-26-2015 Thyroid stimulating hormone (TSH) *TSH [facility] Work Phone: Start: 04-07-2015 End: 04-07-2015 Ecg routine ecg w/least 12 lds w/i&r EKG (In office) [facility] Work Phone: Start: 04-07-2015 End: 04-07-2015 Follow Up Appt 6 months Follow Up Appt 6 months [facility] Work Phone: Start: 04-07-2015 End: 04-07-2015 PFM PFM [facility] Work Phone: Start: 10-06-2014 End: 03-30-2015 Follow Up Appt 6 months Follow Up Appt 6 months [facility] Work Phone: Start: 10-06-2014 End: 03-30-2015 MMM MMM [facility] Work Phone: Start: 03-24-2014 End: 03-25-2014 48 hour holter monitor 48 hour holter monitor [facility] Work Phone: Start: 03-24-2014 End: 03-24-2014 ECHOCARDIOGRAPH TECHNICIAN ECHOCARDIOGRAPH TECHNICIAN [facility] Work Phone: Start: 03-24-2014 End: 03-24-2014 Follow Up Appt 6 months Follow Up Appt 6 months [facility] Work Phone: Start: 09-16-2013 End: 09-16-2013 Follow Up Appt 6 months Follow Up Appt 6 months [facility] Work Phone: Start: 09-16-2013 End: 09-16-2013 MMM MMM [facility] Work Phone: Start: 08-27-2013 End: 12-22-2013 *Hepatic Function Panel *Hepatic Function Panel [facility] Work Phone: Start: 08-27-2013 End: 12-22-2013 Lipid panel [AGGREGATE] *Lipid Profile CC PCP [facility] Work Phone: Start: 05-29-2013 End: 05-29-2013 24 hour holter monitor 24 hour holter monitor [facility] Work Phone: Start: 05-29-2013 End: 05-29-2013 ECHOCARDIOGRAPH TECHNICIAN ECHOCARDIOGRAPH TECHNICIAN [facility] Work Phone: Start: 05-29-2013 End: 05-29-2013 Follow Up Appt 3 months Follow Up Appt 3 months [facility] Work Phone: Start: 02-25-2013 End: 03-06-2013 *Hepatic Function Panel *Hepatic Function Panel [facility] Work Phone: Start: 02-25-2013 End: 02-25-2013 Echocardiography Echocardiogram (complete) [facility] Work Phone: Start: 02-25-2013 End: 02-25-2013 Follow Up Appt 3 months Follow Up Appt 3 months [facility] Work Phone: Start: 02-25-2013 End: 03-06-2013 Lipid panel [AGGREGATE] *Lipid Profile CC PCP [facility] Work Phone: Start: 02-25-2013 End: 02-25-2013 MMM MMM [facility] Work Phone: Start: 02-17-2013 End: 03-06-2013 *Hepatic Function Panel *Hepatic Function Panel [facility] Work Phone: Start: 02-17-2013 End: 03-06-2013 Lipid panel [AGGREGATE] *Lipid Profile CC PCP [facility] Work Phone: Start: 01-06-2013 End: 01-06-2013 BNP *Brain Natriuretic Peptide BNP [facility] Work Phone: Start: 01-06-2013 End: 01-06-2013 INR Coag RelTime (PPP) *PT/INR - Standing Order [facility] Work Phone: Start: 11-12-2012 End: 01-06-2013 INR Coag RelTime (PPP) *PT/INR - Standing Order [facility] Work Phone: Start: 10-22-2012 End: 01-06-2013 *BMP *BMP [facility] Work Phone: Start: 10-22-2012 End: 01-06-2013 *Hepatic Function Panel *Hepatic Function Panel [facility] Work Phone: Start: 10-22-2012 End: 10-22-2012 Ecg routine ecg w/least 12 lds w/i&r EKG (In office) [facility] Work Phone: Start: 10-22-2012 End: 10-22-2012 Follow Up Appt 4 months Follow Up Appt 4 months [facility] Work Phone: Start: 10-22-2012 End: 01-06-2013 Lipid panel [AGGREGATE] *Lipid Profile [facility] Work Phone: Start: 10-22-2012 End: 01-06-2013 Magnesium *Magnesium [facility] Work Phone: Start: 10-22-2012 End: 01-06-2013 Thyroid stimulating hormone (TSH) *TSH [facility] Work Phone: Start: 10-22-2012 End: 01-06-2013 Thyroxine (T4) *T4 (Total) [facility] Work Phone: Start: 09-05-2012 End: 09-12-2012 Thyroid stimulating hormone (TSH) *TSH [facility] Work Phone: Start: 09-05-2012 End: 09-12-2012 Thyroxine (T4) *T4 (Total) [facility] Work Phone: Start: 06-20-2012 End: 09-17-2012 *BMP *BMP [facility] Work Phone: Start: 06-20-2012 End: 09-17-2012 Magnesium *Magnesium [facility] Work Phone: Start: 06-17-2012 End: 03-10-2012 *Hepatic Function Panel *Hepatic Function Panel [facility] Work Phone: Start: 06-17-2012 End: 03-10-2012 Lipid panel [AGGREGATE] *Lipid Profile [facility] Work Phone: Start: 06-13-2012 End: 06-13-2012 *BMP *BMP [facility] Work Phone: Start: 06-13-2012 End: 06-13-2012 *Hepatic Function Panel *Hepatic Function Panel [facility] Work Phone: Start: 06-13-2012 End: 10-22-2012 Chest x-ray X-Ray, Chest, PA & Lateral [facility] Work Phone: Start: 06-13-2012 End: 06-13-2012 Follow Up Appt 4 months Follow Up Appt 4 months [facility] Work Phone: Start: 06-13-2012 End: 06-13-2012 Magnesium *Magnesium [facility] Work Phone: Start: 06-13-2012 End: 06-13-2012 Pulmonary Fuction Test - complete Pulmonary Fuction Test - complete [facility] Work Phone: Start: 06-13-2012 End: 06-13-2012 Thyroid stimulating hormone (TSH) *TSH [facility] Work Phone: Start: 06-13-2012 End: 06-13-2012 Thyroxine (T4) *T4 (Total) [facility] Work Phone: Start: 05-29-2012 End: 06-05-2012 *BMP *BMP [facility] Work Phone: Start: 05-29-2012 End: 06-05-2012 *Hepatic Function Panel *Hepatic Function Panel [facility] Work Phone: Start: 05-29-2012 End: 06-05-2012 Magnesium *Magnesium [facility] Work Phone: Start: 05-29-2012 End: 06-05-2012 Thyroid stimulating hormone (TSH) *TSH [facility] Work Phone: Start: 05-29-2012 End: 06-05-2012 Thyroxine (T4) *T4 (Total) [facility] Work Phone: Start: 03-12-2012 End: 03-12-2012 Follow Up Appt 3 months Follow Up Appt 3 months [facility] Work Phone: Start: 02-28-2012 End: 03-10-2012 *Hepatic Function Panel *Hepatic Function Panel [facility] Work Phone: Start: 02-28-2012 End: 03-10-2012 Thyroid stimulating hormone (TSH) *TSH [facility] Work Phone: Start: 02-28-2012 End: 03-10-2012 Thyroxine (T4) *T4 (Total) [facility] Work Phone: Start: 12-21-2011 End: 12-21-2011 Ecg routine ecg w/least 12 lds w/i&r EKG (In office) [facility] Work Phone: Start: 12-21-2011 End: 12-21-2011 Follow Up Appt 3 months Follow Up Appt 3 months [facility] Work Phone: Start: 11-29-2011 End: 10-09-2011 *Hepatic Function Panel *Hepatic Function Panel [facility] Work Phone: Start: 11-29-2011 End: 10-09-2011 Lipid panel [AGGREGATE] *Lipid Profile [facility] Work Phone: Start: 10-19-2011 End: 10-09-2011 Thyroid stimulating hormone (TSH) *TSH [facility] Work Phone: Start: 10-19-2011 End: 10-09-2011 Thyroxine (T4) *T4 (Total) [facility] Work Phone: Start: 09-14-2011 End: 09-14-2011 Ecg routine ecg w/least 12 lds w/i&r EKG (In office) [facility] Work Phone: Start: 09-14-2011 End: 09-14-2011 Follow Up Appt 3 months Follow Up Appt 3 months [facility] Work Phone: Start: 09-05-2011 End: 09-11-2011 *BMP *BMP [facility] Work Phone: Start: 09-05-2011 End: 09-11-2011 *Hepatic Function Panel *Hepatic Function Panel [facility] Work Phone: Start: 09-05-2011 End: 09-11-2011 Lipid panel [AGGREGATE] *Lipid Profile [facility] Work Phone: Start: 09-05-2011 End: 09-11-2011 Magnesium *Magnesium [facility] Work Phone: Start: 09-05-2011 End: 09-11-2011 Thyroid stimulating hormone (TSH) *TSH [facility] Work Phone: Start: 09-05-2011 End: 09-11-2011 Thyroxine (T4) *T4 (Total) [facility] Work Phone: Start: 08-01-2011 End: 08-01-2011 Ecg routine ecg w/least 12 lds w/i&r EKG (In office) [facility] Work Phone: Start: 08-01-2011 End: 08-01-2011 Follow Up Appt 6 weeks Follow Up Appt 6 weeks [facility] Work Phone: Start: 07-13-2011 End: 09-05-2011 Ecg routine ecg w/least 12 lds w/i&r EKG (In office) [facility] Work Phone: Start: 1988 SHINGRIX VACCINE (1 of 2) SHINGRIX VACCINE (1 of 2) [facility] Start: 1956 Hepatitis B surface antibody level LDL CHOLESTEROL [facility] Start: 1948 3 comp foot exam completed DIABETIC FOOT EXAM [facility] Start: 1948 Hepatitis C antibody, confirmatory test DILATED RETINAL EXAM [facility] Patient Education [facility] Work Phone: End: 12-22-2022 Radiologic exam abdomen 3+ views XR ABDOMEN 3V KUB W/OBLIQUES Radiology Routine Renal calculi 1 Occurrences starting 11/22/2021 until 12/22/2022 [facility] Work Phone: Immunizations Immunization Date Immunization Notes Care Provider Fa [facility] 05-26-2021 COVID-19 vaccine, ag e 12+ yr (PFIZER-BIONTECH - PURPLE TOP) Estrellita Carnes MD Work Phone: [facility] Work Phone: 05-26-2021 influenza, seasonal, injectable Estrellita Carnes MD Work Phone: [facility] Work Phone: 11-25-2020 COVID-19 vaccine, ag e 12+ yr (PFIZER-BIONTECH - PURPLE TOP) [employer] Work Phone: [facility] Work Phone: 11-04-2020 COVID-19 vaccine, ag e 12+ yr (PFIZER-BIONTECH - PURPLE TOP) [employer] Work Phone: [facility] Work Phone: 10-25-2020 COVID-19 vaccine, ag e 12+ yr (PFIZER-BIONTECH - PURPLE TOP) [employer] Work Phone: [facility] Work Phone: 05-27-2020 influenza, high-dose , quadrivalent vaccine (FLUZONE HIGH DOSE QUADRIVALENT) Estrellita Carnes MD Work Phone: [facility] Work Phone: 06-04-2019 influenza, injectabl e, quadrivalent, preservative free Estrellita Carnes MD Work Phone: [facility] Work Phone: 06-04-2019 influenza, seasonal, injectable Estrellita Carnes MD Work Phone: [facility] Work Phone: 06-04-2019 influenza, seasonal, injectable, preservative free [employer] Work Phone: [facility] Work Phone: 06-04-2019 zoster vaccine recombinant Estrellita Carnes MD Work Phone: [facility] Work Phone: 05-27-2019 influenza, injectabl e, quadrivalent, preservative free [employer] Work Phone: [facility] Work Phone: 03-04-2019 zoster vaccine recombinant Estrellita Carnes MD Work Phone: [facility] Work Phone: 08-13-2018 pneumococcal polysaccharide vaccine, 23 valent Estrellita Carnes MD Work Phone: [facility] Work Phone: 05-21-2018 influenza nasal, unspecified formulation Estrellita Carnes MD Work Phone: [facility] Work Phone: 05-21-2018 influenza, injectabl e, quadrivalent, contains preservative [employer] Work Phone: [facility] Work Phone: 04-05-2018 tetanus toxoid, redu marilou diphtheria toxoid, and acellular pertussis vaccine, adsorbed [employer] Work Phone: [facility] Work Phone: 04-25-2017 influenza, seasonal, injectable [employer] Work Phone: [facility] Work Phone: 04-25-2017 influenza, seasonal, injectable, preservative free [employer] Work Phone: [facility] Work Phone: 04-17-2017 influenza, injectabl e, quadrivalent, contains preservative [employer] Work Phone: [facility] Work Phone: 05-19-2016 influenza, high dose seasonal, preservative-free [employer] Work Phone: [facility] Work Phone: 07-20-2015 pneumococcal conjuga te vaccine, 13 valent [employer] Work Phone: [facility] Work Phone: 06-27-2015 pneumococcal conjuga te vaccine, 13 valent Estrellita Carnes MD Work Phone: [facility] Work Phone: 05-27-2015 influenza, seasonal, injectable Estrellita Carnes MD Work Phone: [facility] Work Phone: 05-27-2015 influenza, seasonal, injectable, preservative free [employer] Work Phone: [facility] Work Phone: 05-26-2015 influenza, high dose seasonal, preservative-free [employer] Work Phone: [facility] Work Phone: 05-27-2014 influenza nasal, unspecified formulation Estrellita Carnes MD Work Phone: [facility] Work Phone: 07-16-2013 diphtheria, tetanus toxoids and acellular pertussis vaccine, unspecified formulation Estrellita Carnes MD Work Phone: [facility] Work Phone: 06-27-2013 influenza nasal, unspecified formulation Estrellita Carnes MD Work Phone: [facility] Work Phone: 05-27-2013 influenza, seasonal, injectable Estrellita Canres MD Work Phone: [facility] Work Phone: 05-27-2013 influenza, seasonal, injectable, preservative free [employer] Work Phone: [facility] Work Phone: 06-05-2012 influenza nasal, unspecified formulation Estrellita Carnes MD Work Phone: [facility] Work Phone: 05-24-2011 influenza nasal, unspecified formulation Estrellita Carnes MD Work Phone: [facility] Work Phone: 05-31-2010 influenza nasal, unspecified formulation Estrellita Carnes MD Work Phone: [facility] Work Phone: 08-27-2009 pneumococcal polysaccharide vaccine, 23 valent [employer] Work Phone: [facility] Work Phone: 05-28-2009 influenza nasal, unspecified formulation Estrellita Carnes MD Work Phone: [facility] Work Phone: 07-06-2008 pneumococcal polysaccharide vaccine, 23 valent Estrellita Carnes MD Work Phone: [facility] Work Phone: No information available. Autumn Frost LPN [facility] Work Phone: Payers Date Payer Category Payer Medicare MEDICARE MEDICAR E A AND B [id number] 2011-Present [phone] [address] [address] [place] [address] Medicare [id number] 2011 Medicare [id number] 2005 Private Health Insurance [id number] 2005 Private Health Insurance KATHIA CHAVARRIA PPO [id number] 2005-Present [phone] [address] [place] [address] PPO [id number] 1938 Unknown [id number] 1938 Unknown [id number] Medicare [id number] Social History Date Type Detail Facility Start: 2018 End: 2018 Assertion Unknown if ever smoked [facility] Work Phone: Tobacco smoking stat [facility] Ex-smoker [facility] Work Phone: End: 10-10-1970 History of tobacco use Current smoker [facility] End: 10-10-1970 History of tobacco use Cigarette Smoker [facility] Start: 08-29-2021 End: 03-17-2022 Alcohol intake Current non-drinker of alcohol (finding) [facility] Start: 02-08-2016 Tobacco Comment quit 40 years ago [facility] Start: 1940 Sex Assigned At Male [facility] Start: 10-01-2021 End: 03-17-2022 Exposure to SARS-CoV-2 (event) Not sure [facility] Work Phone: Clinical Notes 03-07-2016 to 03-26-2023 Diana Garner RN - 03/24/2022 10:15 AM EDTTelephone Encounter - Emmy Mendez - 03/17/2022 12:08 PM EDTTelephone Encounter - Estrellita Carnes MD - 03/17/2022 12:01 PM EDT Note Date & Type Note Facility 03-26-2023 Note HNO ID: [id number] Author: Estrellita Carnes MD Service: ? Author Type: Physician Type: Progress Notes Filed: 03/26/2023 6:14 PM Note Text: PRIMARY CARE PHYSICIAN: Corin Hernandez MD ([facility]) [address] [place], [place] [id number] Patient Care Team: Corin Hernandez as PCP - General (Family Medicine) Estrellita Tony V as Specialty Skin Care Technician (Internal Medicine) Marj Marcial CNP as Specialty Skin Care Technician (Family Medicine) Jayy Senior MD as Specialty Skin Care Technician (Urology) Estrellita Carnes MD as Specialty Skin Care Technician (Cardiology) Bunny Verdin as Specialty Skin Care Technician (Cardiology) CHIEF COMPLAINT: Follow up for arrhythmia, ICD HISTORY OF PRESENT ILLNESS: Mr. Alegria is a 82 year old male who presents today for a cardiovascular medicine follow-up visit. History copied from previous notes, edited as needed: Dr. Carnes office note 01/23/2018: Mr. Alegria is a 77 year old male who presents today for a cardiovascular medicine follow-up visit. He experienced [id number] cardiac arrest in 06/2015. An ICD was implanted 07/2015 consisting of a single-chamber transvenous ICD system via the left chest. He developed Enterococcus faecalis sepsis in 09/2015, and this was recurrent despite antibiotic treatment. The ICD system was extracted (removed) 10/2015. A subcutaneous ICD was implanted 01/2016. 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 He had postop atrial arrhythmias including atrial flutter, and underwent electrical cardioversion. Amiodarone was transiently increased to 400 mg twice daily and then back to 200 mg daily on hospital discharge. Mr. Alegria states he has been doing okay. He [...] recently due to increase in the LFTs. IMPRESSION (12/2017): Mr. Alegria is doing reasonably well from a heart [...] he is having more arrhythmias documented by [facility] or by other monitoring locally. RECOMMENDATIONS (12/2017): Continue with current plan of care from EP standpoint. Consider discontinuing amiodarone as it might no longer be necessary for control of atrial and/or ventricular arrhythmias. I will leave this decision to his local director maternal child, Dr. Verdin. Interim history for visit Sarabjit Soriano APRN 09/10/19: Patient presents today for overdue 1 year follow-up regarding presence of ICD and is accompanied by his . He states he has been doing well from the cardiac standpoint and has not had any increased or worsening symptoms. He denies any ICD shocks, chest discomfort, shortness of breath, palpitations, dizziness or lightheadedness or syncope. He has had at least 2 falls in the past year for unknown reason and denies loss of consciousness and is getting physical therapy. Reviewed his chart in care everywhere. His ICD has been followed at the [facility] routinely and has demonstrated normal function and no device discharges. At some point in 2018 amiodarone was discontinued. I reviewed a note from his cardiology office visit 11/16/18 in [place] which was an urgent visit due to irregular heartbeat picked up on his blood pressure monitor and he also had complained of increased fatigue for several months. His EKG showed sinus rhythm with left bundle-branch block and since he was asymptomatic from the arrhythmia standpoint there were no changes made in his meds. I reviewed his last cardiology office visit in [place] from 12/16/18 indicating everything was stable from the cardiac standpoint. Interim history visit Sarabjit Soriano HEAD CONTROL CLERK 09/09/20: Patient presents today for 1 year follow-up, accompanied with his . He follows with Dr. Verdin in [place] I reviewed office notes from Dr. Verdin from 06/29/2020 and 10/30/2019. Patient was hospitalized for chest pain (more content not included)... [facility] 03-24-2022 Nurse Note Spoke with spouse and patient via phone, patient indicated the incision is closed and steri strips intact. Denies drainage or bleeding, denies redness denies fever or chills. Reviewed post device restrictions with patient who voiced understanding. Diana Garner RN documented in this encounter [facility] 03-17-2022 Miscellaneous Notes Scheduled. Patient to be notified upon discharge Emmy Mendez Mr. Alegria needs an appointment (or phone call) with a nurse in 7 - 10 days for wound check after device surgical procedure today. He should be resuming his regular ICD follow up with [facility]. Estrellita Carnes MD March 17, 2022 12:01 PM documented in this encounter [facility] 03-13-2022 Miscellaneous Notes Pt's name has been added to [facility] procedure board. Marlee Holland RN Patient is scheduled for an SICD gen change on 03/17/[address] Carnes. The hospital will call the day before between 2-5pm with your arrival time. Patient should not eat or drink after midnight the day before the procedure. Patient will need a driver operator when released from the hospital. Patient should continue to take medications as prescribed the morning of the procedure with just a sip of water but hold Eliquis 2 days prior to the procedure. Spoke with patients and she verbalized understanding of all instructions Emmy Mendez documented in this encounter [facility] documented as of this encounter (statuses as of 03/17/2022) [facility]07-14-2022 History of Past illness Narrative* Problem Noted Date Resolved Date ICD (implantable cardioverte r-defibrillator) battery depletion 03/09/2022 03/17/2022 Cardiac arrest 03/07/2016 05/31/2016 Cardiac arrest 07/05/2019 Overview: 07/23/2015: VF documented by EMS upon arrival, defibrillated with 200 Joules to achieve ROSC within 9 minutes of EMS being called prison current use of amiodarone 09/11/2019 documented as of this encounter (statuses as of 03/24/2022) [facility]03-29-2022 NotePatient Outreach (UROLMN) SUGEYRACHNA Franck ([id number]) 1940 M NFR Date Time Provider Department 11/22/21 JAYY SENIOR During your visit today, we recorded the following information about you: Allergies As of Date: 11/22/2021 Noted Allergy Reaction LAURA INHIBITORS 03/21/2017 3 - Cough 16 - Unknown DUST MITES 02/10/2010 14 - Other: See Comments ENALAPRIL 04/13/2015 3 - Cough LATEX 01/23/2018 14 - Other: See Comments Comments: Pulls the skin off of him. LEVAQUIN (LEVOFLOXACIN) 01/07/2017 14 - Other: See Comments Comments: Due to interactions with Heart meds MOLDS EXTRACT 02/10/2010 14 - Other: See Comments WARFARIN 03/21/2017 14 - Other: See Comments ZITHROMAX (AZITHROMYCIN) 01/07/2017 14 - Other: See Comments Comments: Due to interactions with Heart meds Date Reviewed: 11/22/2021 Reviewed by: Mariama Sloan MA - Fully Assessed Visit Diagnosis:Renal calculi [N20.0] Order(s):URINALYSIS, REFLEX MICROSCOPIC [[id number]] Order #: [id number]. #:[id number] Prescriptions as of 11/25/2021 - mometasone (ASMANEX HFA) 200 mcg/actuation HFA Inhale as instructed. - albuterol (PROVENTIL) 2.5 mg /3 mL (0.083 %) nebulizer solution - amLODIPine (NORVASC) 5 mg tablet Take 5 mg by mouth once daily. - benzonatate (TESSALON PERLE) 100 mg capsule - metFORMIN ER (GLUCOPHAGE XR) 500 mg 24 hr tablet Take 1,000 mg by mouth daily with breakfast. - Ferrous Gluconate (FERGON) 324 mg (38 mg iron) tablet Take 325 mg by mouth twice daily. - apixaban (ELIQUIS) 2.5 mg tab tab(s) Take 2.5 mg by mouth twice daily. - guaiFENesin (MUCINEX) 1,200 mg Ta12 Take 1,200 mg by mouth daily at bedtime. - Cholecalciferol, Vitamin D3, (VITAMIN D) 25 mcg (1,000 unit) cap Take 1,000 Units by mouth once daily. - budesonide-formoterol (SYMBICORT) 160-4.5 mcg/actuation inhaler Inhale 2 Puffs as instructed twice daily. - insulin glargine,hum.rec.anlog (LANTUS SOLOSTAR U-100 INSULIN SUBCUTANEOUS) Inject 12 Units subcutaneously daily at bedtime. - insulin aspart U-100 (NOVOLOG FLEXPEN U-100 INSULIN) 100 unit/mL inpn Inject subcutaneously three times daily with meals. Sliding scale. - levothyroxine (SYNTHROID) 100 mcg tablet Take 100 mcg by mouth daily before breakfast. Takes 200 mg on Sundays - fluticasone (FLONASE) 50 mcg/actuation nasal spray Use 1 [place] in each nostril once daily. - furosemide (LASIX) 40 mg tablet Take 20 mg by mouth once daily. - Ascorbic Acid (VITAMIN C) 1,000 mg tablet Take 1,000 mg by mouth once daily. - FLAXSEED OIL (OMEGA 3 ORAL) Take 1,000 mg by mouth once daily. - atorvastatin (LIPITOR) 10 mg tablet Take 10 mg by mouth daily at bedtime. - carvedilol (COREG) 25 mg tablet Take 25 mg by mouth twice daily with meals. - LACTOBACILLUS ACIDOPHILUS ORAL Take by mouth once daily. - CPAP Use as directed - multivitamin (MULTIPLE VITAMINS) ORAL tablet Take 1 tablet by mouth once daily. - tiotropium (SPIRIVA WITH HANDIHALER) 18 mcg INHALATION inhalation capsule inhale once daily Problem List As Of Date 11/22/2021 Noted Resolved MALIGN NEOPL PROSTATE [C61] 06/04/2007 Proteinuria [R80.9] 10/14/2009 Renal calculi [N20.0] 08/09/2010 Essential hypertension [I10] 08/09/2010 Hyperlipidemia [E78.5] 08/09/2010 Gastro-esophageal reflux disease without esopha*08/09/2010 NIDDM (non-insulin dependent diabetes mellitus) 08/09/2010 CHF (congestive heart failure) [I50.9] 08/03/2011 Rectal nodule [K62.89] 02/19/2012 Bladder stone [N21.0] 02/19/2012 Controlled type 2 diabetes mellitus with diabet*02/20/2012 Hypothyroidism [E03.9] 05/16/2012 Renal cyst [N28.1] 02/18/2013 BPH without obstruction/lower urinary tract sym*11/07/2013 Cardiac arrest (HCC) [I46.9] 03/07/2016 05/31/2016 ICD (implantable cardioverter-defibrillator) in*05/18/2016 History of coronary artery bypass graft x 2 [Z9*04/27/2017 CAD (coronary artery disease) [I25.10] Ischemic cardiomyopathy [I25.5] Ventricular fibrillation (HCC) [I49.01] Cardiac arrest (HCC) [I46.9] 07/05/2019 Presence of implantable cardioverter-defibrilla* Cardiomyopathy (HCC) [I42.9] 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* Complete left bundle branch block (LBBB) [I44.7] Atherosclerotic heart disease of samish coronar* JOYCE (obstructive sleep apnea) [G47.33] Persistent atrial fibrillation (HCC) [I48.19] 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] 04/27/2017 Anemia of renal disease [N18.9, D63.1] 01/23/2018 Chronic renal insufficiency, stage III (moderat*01/23/2018 Streptococcus infection, group D enterococcus [*11/15/2015 Family history of cerebrovascular accident (CVA*01/23/2018 History of bacterial endocarditis [Z86.79] 11/15/2015 History of malignant neoplasm of prostate [Z85.*08/27/2002 Current use of fpc anticoagulation [Z79.0*01/31/2016 private mortgage banker safe (current) use of antithrombotics/anti*07/15/2017 private mortgage banker safe (current) (more content not included)...[facility] 11-22-2021 NoteHNO ID: [id number] Author: Jayy Senior MD Service: ? Author Type: Physician Type: Progress Notes Filed: 11/22/2021 10:59 AM Note Text: STAFF UROLOGY NOTE: Patient with long-term nephrolithiasis. KUB/sono show no change in stones, benign bilateral renal cysts, and no hydronephrosis. Had one day about a mo. ago where he couldn't void all day but he was on allergy medication. Had radical prostatectomy for CAP in 2002. Normally no problems voiding. About 1 year of chronic diarrhea, pure liquid at times, always after each meal. PCP has not been worried per patient and spouse. Has seen a GI physician about a year. ago and I recommended seeing that person again. Meanwhile he'll try OTC pepto bismal. No stone events. No other voiding issues. States diabetes under good control. U/A pending. Imp: The primary encounter diagnosis was Renal calculi. Diagnoses of Controlled type 2 diabetes mellitus with diabetic nephropathy, with long-term current use of insulin (HCC), Renal cyst, and Chronic diarrhea were also pertinent to this visit. Rec: See GI physician; f/u 1 yr with KUB/sono at f/u pending normal U/A Jayy Senior MD, FACS Director, Surgical Stone Disease, [facility] operations staff specialist security, [facility] [employer] Pager [phone] 11/22/2021[facility]03-29-2022 History of Present illness Narrative* Jayy Senior MD - 11/22/2021 10:41 AM EDT STAFF UROLOGY NOTE: Patient with long-term nephrolithiasis. KUB/sono show no change in stones, benign bilateral renal cysts, and no hydronephrosis. Had one day about a mo. ago where he couldn't void all day but he was on allergy medication. Had radical prostatectomy for CAP in 2002. Normally no problems voiding. About1 year of chronic diarrhea, pure liquid at times, always after each meal. PCP has not been worried per patient and spouse. Has seen a GI physician about a year. ago and I recommended seeing that person again. Meanwhile he'll try OTC pepto bismal. No stone events. No other voiding issues. States diabetes under good control. U/A pending. Imp: The primary encounter diagnosis was Renal calculi. Diagnoses of Controlled type 2 diabetes mellitus with diabetic nephropathy, with long-term current use of insulin (HCC), Renal cyst, and Chronic diarrhea were also pertinent to this visit. Rec: See GI physician; f/u 1 yr with KUB/sono at f/u pending normal U/A Jayy Senior MD, FACS Director, Surgical Stone Disease, [facility] operations staff specialist security, [facility] [employer] Pager [phone] 11/22/2021 documented in this encounterTri[facility] NoteHNO ID: [id number] Author: Jessica Andre RDMS Service: ? Author Type: Photographer Apprentice Lithographic Type: Progress Notes Filed: 11/18/2021 11:00 AM Note Text: Radiology Service Progress Note PATIENT NAME: Rachna Alegria DATE OF SERVICE: November 18, 2021 TIME: 11:00 AM PATIENT IDENTITY VERIFICATION COMPLETED USING TWO (2) IDENTIFIERS: Name and Date of confirmed by patient verbally. FALL SCREENING: Has the patient had 2 falls in the last year or 1 fall with injury or currently using an Ambulatory Assistive Device (Walker, Cane, Wheelchair, Crutches, etc.)? No PATIENT GENDER DATA: Male PATIENT RELEVANT IMPLANT DATA REVIEWED: Not Applicable RADIOLOGY DEPARTMENT: Ultrasound PERIPHERAL IV DATA: Not applicable SIGNED BY: Jessica Andre RDMS RVT November 18, 2021 11:00 [facility]03-25-2022 NoteHNO ID: [id number] Author: RT Min(Robi) Service: ? Author Type: Technologist Type: Progress Notes Filed: 11/18/2021 10:13 AM Note Text: Radiology Service Progress Note PATIENT NAME: Rachna Alegria DATE OF SERVICE: November 18, 2021 TIME: 9:52 AM PATIENT IDENTITY VERIFICATION COMPLETED USING TWO (2) IDENTIFIERS: Name and Date of confirmed by patient verbally. FALL SCREENING: Has the patient had 2 falls in the last year or 1 fall with injury or currently using an Ambulatory Assistive Device (Walker, Cane, Wheelchair, Crutches, etc.)? No PATIENT GENDER DATA: Male PATIENT RELEVANT IMPLANT DATA REVIEWED: Not Applicable RADIOLOGY DEPARTMENT: General X-ray: Exam(s) Completed: Abdomen X-Ray: Abdomen with Obliques PERIPHERAL IV DATA: Not applicable SIGNED BY: RT Min(R) November 18, 2021 9:52 [facility]03-25-2022 History of Present illness Narrative* Jessica Andre RDMS - 11/18/2021 10:30 AM EDT Radiology Service Progress Note PATIENT NAME: Rachna Alegria DATE OF SERVICE: November 18, 2021 TIME: 11:00 AM PATIENT IDENTITY VERIFICATION COMPLETED USING TWO (2) IDENTIFIERS: Name and Date of confirmedby patient verbally. FALL SCREENING: Has the patient had 2 falls in the last year or 1 fall with injury or currently using an Ambulatory Assistive Device (Walker, Cane, Wheelchair, Crutches, etc.)? No PATIENT GENDER DATA: Male PATIENT RELEVANT IMPLANT DATA REVIEWED: Not Applicable RADIOLOGY DEPARTMENT: Ultrasound PERIPHERAL IV DATA: Not applicable SIGNED BY: Jessica Andre RDMS RVT November 18, 2021 11:00 AM documented in this encounterTri[facility]03-[facility]22 History of Present illness Narrative* RT Min(Robi) - 11/18/2021 10:00 AM EDT Radiology Service Progress Note PATIENT NAME: Rachna Alegria DATE OF SERVICE: November 18, 2021 TIME: 9:52 AM PATIENT IDENTITY VERIFICATION COMPLETED USING TWO (2) IDENTIFIERS: Name and Date of confirmedby patient verbally. FALL SCREENING: Has the patient had 2 falls in the last year or 1 fall with injury or currently using an Ambulatory Assistive Device (Walker, Cane, Wheelchair, Crutches, etc.)? No PATIENT GENDER DATA: Male PATIENT RELEVANT IMPLANT DATA REVIEWED: Not Applicable RADIOLOGY DEPARTMENT: General X-ray: Exam(s) Completed: Abdomen X-Ray: Abdomen with Obliques PERIPHERAL IV DATA: Not applicable SIGNED BY: RT Min(R) November 18, 2021 9:52 AM documented in this encounterTrihealth [facility]04-20-2021 NotePatient Outreach (UROLMN) SUGEYRACHNA ([id number]) 1940 M NFR Date Time Provider Department 12/14/20 JAYY SENIOR During your visit today, we recorded the following information about you: Allergies As of Date: 12/14/2020 Noted Allergy Reaction DUST MITES 02/10/2010 14 - Other: See Comments ENALAPRIL 04/13/2015 3 - Cough LATEX 01/23/2018 14 - Other: See Comments Comments: Pulls the skin off of him. LEVAQUIN (LEVOFLOXACIN) 01/07/2017 14 - Other: See Comments Comments: Due to interactions with Heart meds MOLDS EXTRACT 02/10/2010 14 - Other: See Comments ZITHROMAX (AZITHROMYCIN) 01/07/2017 14 - Other: See Comments Comments: Due to interactions with Heart meds Date Reviewed: 12/14/2020 Reviewed by: Mariama Padgett ([facility]) KELSEA Sloan - Fully Assessed Visit Diagnosis:Screening for genitourinary condition [Z13.89] Order(s):URINALYSIS, DIPSTICK ONLY [SQUA] Order #: [id number]. #:[id number] Prescriptions as of 12/14/2020 Sig: ZENPEP 10,000 UNIT-34,000 UNI* Take by mouth three times tri* MUCINEX 1,200 MG TABLET, EXTE* Take 1,200 mg by mouth daily * CHOLECALCIFEROL (VITAMIN D3) * Take 1,000 Units by mouth onc* BUDESONIDE-FORMOTEROL HFA 160* Inhale 2 Puffs as instructed * LANTUS SOLOSTAR U-100 INSULIN* Inject 12 Units subcutaneousl* INSULIN ASPART (U-100) 100 UN* Inject subcutaneously three t* LEVOTHYROXINE 100 MCG TABLET Take 100 mcg by mouth daily b* LOSARTAN 50 MG TABLET Take 50 mg by mouth twice tri* FLUTICASONE PROPIONATE 50 MCG* Use 1 [place] in each nostril o* FUROSEMIDE 40 MG TABLET Take 40 mg by mouth once yessi* ASCORBIC ACID (VITAMIN C) 1,0* Take 1,000 mg by mouth once d* OMEGA 3 ORAL Take 1,000 mg by mouth once d* ATORVASTATIN 10 MG TABLET Take 10 mg by mouth daily at * CARVEDILOL 25 MG TABLET Take 25 mg by mouth twice tri* APIXABAN 5 MG TABLET Take 2.5 mg by mouth twice da* FERROUS SULFATE 325 MG (65 MG* Take 325 mg by mouth twice da* LACTOBACILLUS ACIDOPHILUS ORAL Take by mouth once daily. CPAP Use as directed * MULTIVITAMIN TABLET Take 1 tablet by mouth once d* * TIOTROPIUM BROMIDE 18 MCG CAP* inhale once daily Problem List As Of Date 12/14/2020 Noted Resolved MALIGN NEOPL PROSTATE [C61] 06/04/2007 Proteinuria [R80.9] 10/14/2009 Renal calculi [N20.0] 08/09/2010 Essential hypertension [I10] 08/09/2010 Hyperlipidemia [E78.5] 08/09/2010 Gastro-esophageal reflux disease without esopha*08/09/2010 NIDDM (non-insulin dependent diabetes mellitus) 08/09/2010 CHF (congestive heart failure) [I50.9] 08/03/2011 Rectal nodule [K62.89] 02/19/2012 Bladder stone [N21.0] 02/19/2012 Controlled type 2 diabetes mellitus with diabet*02/20/2012 Hypothyroidism [E03.9] 05/16/2012 Renal cyst [N28.1] 02/18/2013 BPH without obstruction/lower urinary tract sym*11/07/2013 Cardiac arrest (HCC) [I46.9] 03/07/2016 05/31/2016 ICD (implantable cardioverter-defibrillator) in*05/18/2016 History of coronary artery bypass graft x 2 [Z9*04/27/2017 CAD (coronary artery disease) [I25.10] Ischemic cardiomyopathy [I25.5] Ventricular fibrillation (HCC) [I49.01] Cardiac arrest (HCC) [I46.9] 07/05/2019 Presence of implantable cardioverter-defibrilla* Cardiomyopathy (HCC) [I42.9] 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* Complete left bundle branch block (LBBB) [I44.7] Atherosclerotic heart disease of samish coronar* JOYCE (obstructive sleep apnea) [G47.33] Persistent atrial fibrillation (HCC) [I48.19] 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] 04/27/2017 Anemia of renal disease [N18.9, D63.1] 01/23/2018 Chronic renal insufficiency, stage III (moderat*01/23/2018 Streptococcus infection, group D enterococcus [*11/15/2015 Family history of cerebrovascular accident (CVA*01/23/2018 History of bacterial endocarditis [Z86.79] 11/15/2015 History of malignant neoplasm of prostate [Z85.*08/27/2002 Current use of fpc anticoagulation [Z79.0*01/31/2016 prison (current) use of antithrombotics/anti*07/15/2017 private mortgage banker safe (current) use of oral hypoglycemic dr*07/15/2017 private mortgage banker safe current use of insulin (HCC) [Z79.4] 04/27/2017 Chronic low back pain [M54.5, G89.29] 01/31/2016 private mortgage banker safe current use of amiodarone [Z79.899] 09/11/2019 Elevated serum creatinine [R79.89] 03/28/2018 At risk for stroke [Z91.89] 09/11/2019 Encounter Status:Closed by [employer], PRODUSER on 12/17/20[facility] 12-14-2020 NoteHNO ID: [id number] Author: Jayy Senior Service: ? Author Type: Physician Type: Progress Notes Filed: 12/14/2020 10:39 AM Note Text: .Followed for nephrolithiasis. No symptoms whatsoever. Voids with good stream. NF 1 (drinking at night), DF q3-4h. No hematuria, dysuria, flank pain, fever, nausea, incontinence. Bowels: No diarrhea, constipation, blood, vomiting. KUB/sono show stable stones left kidney, benign renal cysts. Hx of RRP for CA prostate; patient/ indicate Dr. Johnson advised no more PSA's since last was 0.88 4 yr ago. Diabetes under control. Has some renal insufficiency and is on an ARB (losartin). I advised patient/ discuss with PCP possible switch to another BP med, like a calcium channel tiffany, which would not raise the creatinine level. No other issues. Patient does not wish surgery for his stones. U/A shows 1+ protein; otherwise is OK. Imp: The primary encounter diagnosis was Renal calculi. Diagnoses of Controlled type 2 diabetes mellitus with diabetic nephropathy, with long-term current use of insulin (HCC), Renal cyst, and Malignant neoplasm of prostate (HCC) were also pertinent to this visit. Plan: F/U 1 yr with KUB/sono at f/u Jayy Senior MD, FACS Director, Surgical Stone Disease, [facility] operations staff specialist security, [facility] Pager [phone] 12/14/2020[facility]04-16-2021 NoteHNO ID: [id number] Author: Betty Briscoe (Rt) Susan Ring Service: Radiology Author Type: Supervisor Production Managing Type: Progress Notes Filed: 12/10/2020 10:37 AM Note Text: Radiology Service Progress Note PATIENT NAME: Rachna Alegria DATE OF SERVICE: December 10, 2020 TIME: 10:37 AM PATIENT IDENTITY VERIFICATION COMPLETED USING TWO (2) IDENTIFIERS: Name and Date of confirmed by patient verbally. FALL SCREENING: Has the patient had 2 falls in the last year or 1 fall with injury or currently using an Ambulatory Assistive Device (Walker, Cane, Wheelchair, Crutches, etc.)? No PATIENT GENDER DATA: Male PATIENT RELEVANT IMPLANT DATA REVIEWED: Not Applicable RADIOLOGY DEPARTMENT: General X-ray: Exam(s) Completed: Abdomen X-Ray Abdomen with Obliques PERIPHERAL IV DATA: Not applicable SIGNED BY: RT Charlene December 10, 2020 10:37 [facility]07-12-2016 History of Past illness Narrative* Problem Noted Date Resolved Date Cardiac arrest 03/07/2016 05/31/2016 Cardiac arrest 07/05/2019 Overview: 07/23/2015: VF documented by EMS upon arrival, defibrillated with 200 Joules to achieve ROSC within 9 minutes of EMS being called prison current use of amiodarone 09/11/2019 documented as of this encounter (statuses as of 11/22/2021) [facility] History of Past illness Narrative* Problem Noted Date Resolved Date Cardiac arrest 03/07/2016 05/31/2016 Cardiac arrest 07/05/2019 Overview: 07/23/2015: VF documented by EMS upon arrival, defibrillated with 200 Joules to achieve ROSC within 9 minutes of EMS being called prison current use of amiodarone 09/11/2019 documented as of this encounter (statuses as of 11/25/2021) [address]12-2016 History of Past illness Narrative* Problem Noted Date Resolved Date Cardiac arrest 03/07/2016 05/31/2016 Cardiac arrest 07/05/2019 Overview: 07/23/2015: VF documented by EMS upon arrival, defibrillated with 200 Joules to achieve ROSC within 9 minutes of EMS being called prison current use of amiodarone 09/11/2019 documented as of this encounter (statuses as of 11/19/2021) [address]12-2016 History of Past illness Narrative* Problem Noted Date Resolved Date Cardiac arrest 03/07/2016 05/31/2016 Cardiac arrest 07/05/2019 Overview: 07/23/2015: VF documented by EMS upon arrival, defibrillated with 200 Joules to achieve ROSC within 9 minutes of EMS being called private mortgage banker safe current use of amiodarone 09/11/2019 documented as of this encounter (statuses as of 11/19/2021) [address]12-2016 History of Past illness Narrative* Problem Noted Date Resolved Date Cardiac arrest 03/07/2016 05/31/2016 Cardiac arrest 07/05/2019 Overview: 07/23/2015: VF documented by EMS upon arrival, defibrillated with 200 Joules to achieve ROSC within 9 minutes of EMS being called prison current use of amiodarone 09/11/2019 documented as of this encounter (statuses as of 03/13/2022) [facility] [place] [facility]* Diagnosis Renal calculi- Primary Calculus of kidney Controlled type 2 diabetes mellitus with diabetic nephropathy, 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 Chronic diarrhea Diarrhea documented in this encounter [facility]* Diagnosis Renal calculi Calculus of kidney documented in this encounter [facility]* Diagnosis Renal calculi Calculus of kidney Renal cyst Unspecified congenital cystic kidney disease documented in this encounter [facility]* Diagnosis Visit for wound check- Primary Encounter for other specified aftercare documented in this encounter [facility] HospitalReason for referral (narrative)* Diagnostic Procedure Only (Routine) - Pending Review Specialty Diagnoses / Procedures Referred By Rambo owens Referred To Contact XR IMAGING Diagnoses Renal calculi Procedures XR ABDOMEN 3V KUB W/OBLIQUES RADIOLOGIC EXAM ABDOMEN 3+ VIEWS Jayy Senior MD [address] [place] [address] Xr Imaging Referral ID Status Reason Start Date Expiration Date Visits Requested Visits Authorized [id number] Pending Review Auto-Generat ed Referral 11/22/2021 12/22/2022 1 1 * Diagnostic Procedure Only (Routine) - Pending Review Specialty Diagnoses / Procedures Referred By Rambo owens Referred To Contact US IMAGING Diagnoses Renal calculi Renal cyst Procedures US KIDNEY/BLADDER US RETROPERITONEAL REAL TIME W/IMAGE COMPLETE Jayy Senior MD [address] [place] [address] Us Imaging Referral ID Status Reason Start Date Expiration Date Visits Requested Visits Authorized [id number] Pending Review Auto-Generat ed Referral 11/22/2021 12/22/2022 1 1 [facility] Summary Purpose Family History No Family History Records FoundThere may be information available, but it has not been provided by the sender.No Family History Records FoundNo Family History Records Found Advance Directives No Advanced Directives Records FoundDocuments on File Type Date Recorded Patient Venture Capitalist Expl anation Advance Directive(s) 05/31/2017 9:40 AM Documents on File Type Date Recorded Patient Venture Capitalist Expl anation Advance Directive(s) 05/31/2017 9:40 AM Chief Complaint Chief Complaint Description Start Date left lathe hand comp Preliminary chief co mplaint data, not yet signed by the author as of Instructions Instruction Description Start Date CompletedPatient advised to follow-up with Primary Care Physician for BMI management. Assessments There may be information available, but it has not been provided by the sender. Review of System There may be information available, but it has not been provided by the sender. History of Present Illness There may be information available, but it has not been provided by the sender. Additional Source Comments (unrecognized sect ion and content) No Status Records FoundNo Status Records FoundNo Status Records Found INFORMATION SOURCE (unrecogn ized section and content) DATE CREATED AUTHOR AUTHOR'S ORGANIZ ATION 11/27/2021 [facility] DATE CREATED AUTHOR AUTHOR'S ORGANIZ ATION 03/27/2023 [facility] Reason for Visit (unrecogniz ed section and content) Reason Comments Follow Up Reason Comments Radiology US Reason Comments Preparations For Procedures Reason Onset Date Comments Wound Check 03/17/2022 Reason Comments Wound Check Source Comments (unrecognize d section and content) In the event this informatio n is protected by the Federal Confidentiality of Alcohol and Drug Abuse Patient Records regulations: The Federal rules restrict any use of the information to criminally investigate or prosecute any alcohol or drug abuse patient.[facility] HospitalIn the event this information is protected by the Federal Confidentiality of Alcohol and Drug Abuse Patient Records regulations: The Federal rules restrict any use of the information to criminally investigate or prosecute any alcohol or drug abuse patient.[facility] HospitalIn the event this information is protected by the Federal Confidentiality of Alcohol and Drug Abuse Patient Records regulations: The Federal rules restrict any use of the information to criminally investigate or prosecute any alcohol or drug abuse patient.[facility] HospitalIn the event this information is protected by the Federal Confidentiality of Alcohol and Drug Abuse Patient Records regulations: The Federal rules restrict any use of the information to criminally investigate or prosecute any alcohol or drug abuse patient.[facility] HospitalIn the event this information is protected by the Federal Confidentiality of Alcohol and Drug Abuse Patient Records regulations: The Federal rules restrict any use of the information to criminally investigate or prosecute any alcohol or drug abuse patient.[facility] HospitalIn the event this information is protected by the Federal Confidentiality of Alcohol and Drug Abuse Patient Records regulations: The Federal rules restrict any use of the information to criminally investigate or prosecute any alcohol or drug abuse patient.[facility] HospitalIn the event this information is protected by the Federal Confidentiality of Alcohol and Drug Abuse Patient Records regulations: The Federal rules restrict any use of the information to criminally investigate or prosecute any alcohol or drug abuse patient.[facility] Teams (unrecognized sec tion and content) Tar Boiler Relationship Specialty Start Date End Date Corin Hernandez Brian PCP - General Family Practice 04/11/17 LambertLoyd duranril S Specialty Skin Care Technician Cardiology 04/11/17 Shu Gotti Specialty Skin Care Technician Endocrinology 04/11/17 Estrellita Tony V [address] [place] [address] Specialty Skin Care Technician Internal Medicine 04/11/17 Marj Marcial, PATIENT SCHEDULING MANAGER [address] [place] [address] Specialty Skin Care Technician Family Practice 04/11/17 Jayy Senior MD [address] [place] [address] Specialty Skin Care Technician Urology 04/11/17 Estrellita Carnes MD [address] [address] Specialty Skin Care Technician Cardiology 01/23/18 Tar Boiler Relationship Specialty Start Date End Date DavidCorin PCP - General Family Practice 04/11/17 LambertLoyd duranril S Specialty Skin Care Technician Cardiology 04/11/17 Shu Gotti Specialty Skin Care Technician Endocrinology 04/11/17 Estrellita Tony V [address] [place] [phone] Specialty Skin Care Technician Internal Medicine 04/11/17 Marj Marcial, PATIENT SCHEDULING MANAGER [address] [place] [address] Specialty Skin Care Technician Family Practice 04/11/17 Jayy Senior MD [address] [place], [place] [id number] Specialty Skin Care Technician Urology 04/11/17 Estrellita Carnes MD [address] [address] Specialty Skin Care Technician Cardiology 01/23/18 Tar Boiler Relationship Specialty Start Date End Date Corin Hernandez PCP - General Family Practice 04/11/17 Bunny Verdin Specialty Skin Care Technician Cardiology 04/11/17 Shu Gotti Specialty Skin Care Technician Endocrinology 04/11/17 Estrellita Tony V [address] [place] [phone] Specialty Skin Care Technician Internal Medicine 04/11/17 Marj Marcial, PATIENT SCHEDULING MANAGER [address] [place] [address] Specialty Skin Care Technician Family Practice 04/11/17 Jayy Senior MD [address] [place] [address] Specialty Skin Care Technician Urology 04/11/17 Estrellita Carnes MD [address] [place] [address] (Fax) Specialty Skin Care Technician Cardiology 01/23/18 Tar Boiler Relationship Specialty Start Date End Date Corin Hernandez PCP - General Family Practice 04/11/17 Lambert, [place] S Specialty Skin Care Technician Cardiology 04/11/17 Shu Gotti MD Specialty Skin Care Technician Endocrinology 04/11/17 Estrellita Tony V [address] [place] [address] Specialty Skin Care Technician Internal Medicine 04/11/17 Marj Marcial, PATIENT SCHEDULING MANAGER [address] [place] [address] Specialty Skin Care Technician Family Practice 04/11/17 Jayy Senior MD [address] [place] [address] Specialty Skin Care Technician Urology 04/11/17 Estrellita Carnes MD [address] [place] [address] (Fax) Specialty Skin Care Technician Cardiology 01/23/18 Tar Boiler Relationship Specialty Start Date End Date Corin Hernandez PCP - General Family Practice 04/11/17 Lambert, [place] S Specialty Skin Care Technician Cardiology 04/11/17 Shu Gotti MD Specialty Skin Care Technician Endocrinology 04/11/17 Estrellita Tony V [address] [facility] [place] [address] Specialty Skin Care Technician Internal Medicine 04/11/17 Marj Marcial, PATIENT SCHEDULING MANAGER [address] [place] [address] Specialty Skin Care Technician Family Practice 04/11/17 Jayy Senior MD [address] [place] [address] Specialty Skin Care Technician Urology 04/11/17 Estrellita Carnes MD [address] [facility] [address] [place] [address] Specialty Skin Care Technician Cardiology 01/23/18 FOR RECORDS PERTAINING TO PATIENTS WHO ARE OR HAVE BEEN ENROLLED IN A CHEMICAL DEPENDENCY/SUBSTANCEABUSE PROGRAM, SOME INFORMATION MAY BE OMITTED. This clinical summary was aggregated from multiple sources. Caution should be exercised in using it in the provision of clinical care. This summary normalizes information from multiple sources, and as a consequence, information in this document may materially change the coding, format and clinical context of patient data. In addition, data may be omitted in some cases. CLINICAL DECISIONS SHOULD BE BASED ON THE PRIMARY CLINICAL RECORDS. [facility] [employer] provides no warranty or guarantee of the accuracy or completeness of information in this document.
[2023-08-29 08:37] LABS: ALB/GLOB Ratio 0.8 RATIO (0.9-2.4); AST(SGOT) 15 U/L (15-37); Alanine Aminotransfer ALT/SGPT 22 U/L (16-61); Albumin, Serum 3.1 g/dL (3.2-5.0); Alkaline Phosphatase 101 U/L (45-117); Anion Gap 5 (5-15); BUN 29 mg/dL (7-18); BUN/Creat Ratio 14.3 RATIO (10-20); Calcium,Total 8.9 mg/dL (8.5-10.1); Chloride 114 mmol/L (98-107); Cholesterol 113 mg/dL (200); Creatinine, Serum 2.03 mg/dL (0.70-1.30); EST Glomerular Filtration Rate 33 mL/min (>60); Est Glom Filt Rate - Afr Amer 40 mL/min (>60); Free T3 1.6 pg/mL (2.18-3.98); Glucose 103 mg/dL (74-106); High Density Lipoprotein 53 mg/dL; Potassium 3.4 mmol/L (3.5-5.1); Protein, Total 7.1 g/dL (6.4-8.2); Sodium Level 142 mmol/L (136-145); T4 Free Direct 1.17 ng/dL (0.76-1.46); Thyroid Stim Hormone (TSH) 2.53 uIU/mL (0.358-3.74); Triglycerides 102 mg/dL; Very Low Density Lipoprotein 20 mg/dL (5-40)
[2023-08-29 09:21] LABS: Hemoglobin A1c 6.9 % (3.8-5.6)
== END | disposition home or self-care (01) ==
LOC: LAB 06:55
PROVIDERS: PCP Family Medicine; Referring Provider Internal Medicine Endocrinology, Diabetes & Metabolism; Visit Provider Internal Medicine Endocrinology, Diabetes & Metabolism
DX: E11.22 Type 2 diabetes mellitus with diabetic chronic kidney disease (principal); Z79.4 Long term (current) use of insulin; N18.30 Chronic kidney disease, stage 3 unspecified; E03.9 Hypothyroidism, unspecified; E78.5 Hyperlipidemia, unspecified
CPT/HCPCS: 36415; 80053; 80061; 83036; 84439; 84443; 84481

== ENCOUNTER 2023-09-11 09:30 | Outpatient (RCR) | payer MEDICARE, OTHER, SELFPAY ==
--- NOTE | 2023-08-13 10:02 | HP.PTEVAL ---
Patient's Visit Information Visit Information Visit Information: RACHNA MAYES is a 82 year old M referred to Physical Therapy by Dr. Ken Drummond MD with a diagnosis of L/S STENOSIS, SPONDYLOSIS, AND RADICULOPATHY. Date of Evaluation: 08/13/23 Physical Therapist: Shanna Haskins PT, Cert MDT Visit Plan Frequency: 2-3x /Week Duration: 4-6 Weeks Plan: (Patient is a [employer] Member and has also used the [employer] for walking in the past) Neutral Spine Core Stability Exercises and Angelique LE Hamstring and Calf Stretching to help reduce stress to the Lumbar Spine with all Daily Activities. Angelique LE Strengthening. Instruction in Proper Posture Control, Body Mechanics, and Appropriate Activity Modifications. HEP and Gym Program Instruction. Subjective Subjective: Work/Leisure: RETIRED. WALKS ABOUT 10 MINUTES 3-4 TIMES A WEEK AROUND [email or web address] - TAKES CANE. 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 Present symptoms: PATIENT REPORTS HIS BACK GETS TIRED REAL EASY AND IT ACHES WHEN IT GETS TIRED. ANGELIQUE LOW BACK PAIN. PATIENT DENIES ANGELIQUE LE WEAKNESS, PAIN, NUMBNESS AND TINGLING. 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 I DIDN'T THINK I HURT MYSELF BUT ABOUT A WK AND 1/2 LATER MY BACK STARTED ACHING . Pain Scale: WORST 4/10, LEAST 0/10 Currently: 0/10 Is it getting better, worse or staying the same: GETTING BETTER Commenced as a result of: PROBABLY LOADING RECLIINER Symptoms at onset: LOW BACK ACHING Worse: SITTING IN RECLINER TOO LONG, RIDING IN THE CAR, WALKING TOO MUCH, STANDING. WORSE THE DAY PROGRESSES. Better: LYING ON HEAT, STANDING UP AND LEANING BACK AGAINST SOMETHING FOR SUPPORT - NOT BENDING BACKWARDS, HOT SHOWER ON BACK, GETTING OFF FEET SOMETIMES. BETTER IN THE MORNING. USING CANE IF TAKING A WALKING AROUND [email or web address]. Disturbed sleep: NO Previous history/Previous treatment: HURT BACK AT WORK YEARS AGO - WENT TO [employer] AND RECOVERED. NO SPINE SURGERY. NO SPINAL INJECTIONS IN THE PAST. Treatment this episode: SPINE INJECTION BEGINNING OF JUL 2023 - WHEN I LEFT HIS OFFICE THE PAIN WAS GONE . ONE SHOT. Coughing/sneezing/straining: NEGATIVE Gait: NO RECENT FALLS. USES A CANE ON WALKS FOR YEARS DUE TO HISTORY OF FALLS BUT HASN'T FALLEN SINCE AP[employer]OX 2016. Bowel or Bladder Dysfunction: NO Accidents: PARTIAL LOSS OF L HAND IN ACCIDENT YEARS AGO AT WORK. Unexplained weight loss: NO Imaging: RECENT X-RAYS, CAT SCAN AND MRI OF LUMBAR SPINE - SEE [facility] EMR. IMPRESSION: Moderate left paracentral disc extrusion with inferior migration at L3-4 resulting in left nerve root impingement, severe spinal canal stenosis, and left greater than right foraminal narrowing. Multilevel degenerative disc disease of the lumbar spine as above. PMH/Recent major surgery: SEE BELOW. *DEFIBULATOR* Objective Objective: Sitting/Standing Posture: FH. RSH'S. REDUCED LORDOSIS. SCOLIOSIS. INCREASED KYPHOSIS Active Correction of posture: NE Other Observations: THIS PATIENT AMBULATES INDEP'LY INTO PT WITHOUT ANY ASSISTIVE DEVICES. DECREASED ANGELIQUE STRIDE LENGTH. DECREASED CADANCE. NO LOB. PATIENT IS UNABLE TO TRANSFER SIT TO STAND WITHOUT UE ASSIST. Sensory deficit: ANGELIQUE LE LIGHT TOUCH SENSATION GROSSLY INTACT AND SYMMETRICAL ROM deficit: VERY TIGHT ANGELQIUE LE HS'S AND GASTROC SOLEUS COMPLEX'S. Motor deficit: R HIP 4-/5, KNEE 4/5, ANKLE 5/5. L HIP 4-/5, KNEE 4/5, ANKLE 5/5. Reflexes: UNABLE TO ELICIT ANGELIQUE LE DTR'S. Dural Signs: NEGATIVE ANGELIQUE LE'S. Lumbar mvmt loss: flex - MOD ext - GIFTY R SG - GIFTY L SG - GIFTY Core strength: POOR Palpation: NO ACUTE LUMBAR OR SACRAL TENDERNESS. INCREASED MUSCLE TONE ANGELIQUE PARASPINALS. TREATMENT: NEUROMUSCULAR REEDUCATION - RETRAINING OF MVMT AND POSTURE FOR SITTING, LYING AND STANDING ACTIVITIES. PATIENT REPORTED FEELING GOOD WITH LUMBAR SUPPORT IN SITTING IN CLINIC TODAY. Balance/Special Test Scores Oswestry Low Back Score: 4 Goals Goal 1:: DECREASE C/O LOW BACK PAIN TO 0-2/10 WITH ALL ADL'S Goal Time Frame: 4-6 Weeks Goal 2:: PATIENT WILL HAVE INCREASED BLE AND CORE STRENGTH INCREASED BY 1/2 GRADE OF ALL EFFECTED MUSCULATEURE. Goal Time Frame: 4-6 Weeks Goal 3:: PATIENT WILL BE ABLE TO STAND AND WALK FOR 20 MINUTES WITHOUT INCREASED SYMPTOMS/NEEDINT TO SIT DOWN FOR INCREASED ADL TOLERANCE. Goal Time Frame: 4-6 Weeks Goal 4:: INDEP HEP AND H&W PROGRAM W/[employer] Goal Time Frame: 4-6 Weeks Rehabilitation Potential Physical Therapy Diagnosis: Low Back Pain. Low Back and LE Weakness and Stiffness. Rehabilitation Potential: Good Anticipated Interventions Patient/Client Instruction: Educate patient on: Condition, Plan of Care and Risk Factors For the Purpose of:: To improve self management Therapeutic Exercise to Include: Strength training, Body mechanics, Postural training, Flexibilty training and Dynamic Lumbar Stabilization For the Purpose of:: To increase ROM, To improve muscle performance and motor function, To increase tolerance to activity/condition/position, To improve ability of physical actions for home/community/work/leisure and To improve gait and locomotor functions Text: Thank you for the opportunity to evaluate your patient. For Medicare and Medicare HMO plans, please review the plan of care and approve it. It will need to be FAXED BACK to us at [phone] for Medicare purposes. For Medicare only, by signing this I certify the plan of care. Please let me know if there are questions or concerns regarding this plan of care. Physician Signature: Date:
--- NOTE | 2023-09-11 09:56 | HP.PTDCSUM ---
Discharge Summary D/C summary: It has been my pleasure to treat RACHNA MAYES referred by Dr. Ken Drummond MD, with the diagnosis of L/S STENOSIS, SPONDYLOSIS, AND RADICULOPATHY for a total of 10 visit(s). Discharge Date: 09/11/23 Please see the following information for a summary of their discharge status. Subjective Subjective: PATIENT REPORTS HIS PAIN IS GONE. HE STATES HE IS READY TO CONTINUE EX ON HIS OWN NOW. Pain Back: Pain Intensity (Out of 10): 4 Overall Improvement % Improvement: 70 Objective Objective/Function: PATIENT WAS SEEN TODAY FOR RE-ASSESSMENT OF PROGRESS TOWARD THE SET PT GOALS AND THE NEED FOR FURTHER PHYSICAL THERAPY VS READINESS FOR DISCHARGE. UPON EXAM TODAY ALL PT GOAL HAVE BEEN MET. ANGELIQUE LE STRENGTH IS 5/5 AND PATIENT IS INDEP WITH A GYM EX PROGRAM. LUMBAR MVMT LOSS: flex - MIN ext - MOD R SG - MOD L SG - MOD LAST PT SESSION INCLUDED THE FOLLOWING EX'S: NuStep: L3 5 minutes-legs only for lower extremity endurance and aerobic conditioning Sit to stand: [id number]-gvvd across chest +foam Lateral walks at counter: 4 laps teal band Seated hip abd (4): 3x10 35# N/T in use HSC (22): 3x10 35# Leg press (5): 3x10 90# Leg extension: 3x10 15# Heel raises on slant board: 2x15 Hip isolator abd: 2x10/ea 50# Goals Goal 1:: DECREASE C/O LOW BACK PAIN TO 0-2/10 WITH ALL ADL'S Goal Progress: Goal Met Goal 2:: PATIENT WILL HAVE INCREASED BLE AND CORE STRENGTH INCREASED BY 1/2 GRADE OF ALL EFFECTED MUSCULATEURE. Goal Progress: Goal Met Goal 3:: PATIENT WILL BE ABLE TO STAND AND WALK FOR 20 MINUTES WITHOUT INCREASED SYMPTOMS/NEEDING TO SIT DOWN FOR INCREASED ADL TOLERANCE. Goal Progress: Goal Met Goal 4:: INDEP HEP AND H&W PROGRAM W/[employer] Goal Progress: Goal Met Plan Plan: D/C TO INDEP EX. PATIENT AGREEABLE. D/C Information d/c sentence: If there are questions or concerns regarding this patient's physical therapy, please feel free to call me at [phone]. Thank you for the referral of this patient. Sincerely, Shanna Haskins, PT, Cert MDT Balance/Gait/Functional tests Balance/Special Test Scores Oswestry Low Back Score: 0 Improvement % Improvement: 70
== END 2023-09-11 19:00 | disposition home or self-care (01) ==
LOC: PT 09:30
PROVIDERS: PCP Family Medicine; Referring Provider Anesthesiology; Visit Provider Anesthesiology
DX: M48.07 Spinal stenosis, lumbosacral region (principal); M47.27 Other spondylosis with radiculopathy, lumbosacral region; M54.17 Radiculopathy, lumbosacral region
CPT/HCPCS: 97110; 97112; 97162; 97164

== ENCOUNTER → 2023-10-27 | Outpatient (CLI) | payer MEDICARE, OTHER, SELFPAY ==
--- OUTSIDE RECORDS SUMMARY | 2023-10-27 07:23 | XMS RPT_ITS | CCD ---
Author Name Unknown Address [id number] [place] [address] Organization [facility] Care Team Providers Care Coil Taper Name Role Phone JAISON Chiang, Bhavna Lucero Unavailable [phone] ESTRELLITA CARNES Unavailable Unavailable Corin Hernandez Unavailable Unavailable LAMBERT, BUNNY S Unavailable Unavailable DANIELA, EM Unavailable Unavailable ESTRELLA SUAREZBERLY Unavailable Unavailable Corin Hernandez Unavailable Unavailable Kumar SPARKS, Liam Larios Unavailable [phone] Corin Hernandez Primary Care Provider Lambert, Millwood S Unavailable Shu Gotti Unavailable [phone] Estrellita Benavidez Unavailable Marj Marcial CNP Unavailable Barak SPARKS, Jayy Unavailable Estrellita Carnes MD Unavailable Shu Gotti MD Unavailable LAMBERT, BUNNY S Referring Unavailable ESTRELLITA CARNES Attending Unavailable CORIN HERNANDEZ Primary Care Unavailable Allergies Allergy Classification Reported Allergen(s) Allergy Type Date of Onset Reaction(s) Facility (1 source) enalapril Drug Allergy 6 [facility] Work Phone: (1 source) warfarin Drug Allergy 7 Bleeding under skin/sensitive to med [facility] Work Phone: (2 sources) NKDA drug allergy 3 [facility] Work Phone: (1 source) LAURA-I drug allergy 5 cough [facility] Work Phone: (9 sources) Azithromycin; 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: [AZITHROMYCIN] Drug Allergy 7 Other: See Comments [facility] Repository (10 sources) Enalapril; 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: [ENALAPRIL] Drug Allergy 5 Cough [facility] Repository (9 sources) House dust mite; 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: [DUST MITES] Propensity to adverse reactions (disorder) 0 Other: See Comments [facility] Repository (10 sources) Latex; 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: [LATEX] Propensity to adverse reactions (disorder) 8 Other: See Comments [facility] Repository (9 sources) levoFLOXacin; 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: [LEVOFLOXACIN] Drug Allergy 7 Other: See Comments [facility] Repository (9 sources) Mold; 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: [MOLDS EXTRACT] Propensity to adverse reactions (disorder) 0 Other: See Comments [facility] Repository (1 source) Adhesive Tape; 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: [TAPE] allergy to substance 9 [facility] Work Phone: (1 source) Azithromycin Drug Allergy 9 [facility] Work Phone: (1 source) levoFLOXacin Drug Allergy 9 [facility] Work Phone: (5 sources) Angiotensin-conv erting enzyme inhibitor agent; 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: [LAURA INHIBITORS] Drug Allergy 7 Cough, [facility] Work Phone: (8 sources) Warfarin; 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: [WARFARIN] Drug Allergy 7 Other: See Comments [facility] Work Phone: (3 sources) Angiotensin-conv erting enzyme inhibitor agent Drug Allergy 7 Cough, Unknown [facility] Work Phone: Medications Completed/Discontinued Medications Medication [...] disease (20 sources) Atherosclerotic heart disease of [place] coronary artery without angina pectoris; 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: [Coronary [...] (1 source) Long-term drug therapy; 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: [Other senior living (current) drug therapy] Onset: 1 12-15-2010 Unclassified [...] sources) Long-term current use of anticoagulant; 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: [half-way (current) use of anticoagulants] Onset: 01-31-2016 03-28-2018 Episodic Other aftercare (7 sources) Patient encounter status; 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: [half-way (current) use of antithrombotics/antip latelets] Onset: 07-15-2017 01-23-2018 Episodic Other aftercare (7 sources) Long-term current use of oral hypoglycemic medication; 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: [half-way (current) use of oral hypoglycemic drugs] Onset: 07-15-2017 01-23-2018 Episodic Other aftercare (7 sources) Long-term current use of insulin; 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: [half-way (current) use of insulin] Onset: 04-27-2017 01-23-2018 Episodic Other aftercare (1 source) 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; 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: [Anticoagulant long-term [...] 188 cm Jayy Senior MD Work Phone: [facility] 11-22-2021 10:28-0400 Body weight 99.11 kg Jayy Senior MD Work Phone: [facility] 11-22-2021 10:28-0400 Diastolic blood pressure 72 mm[Hg] Jayy Senior MD Work Phone: [facility] 11-22-2021 10:28-0400 Heart rate 65 /min Jayy Senior MD Work Phone: [facility] 11-22-2021 10:28-0400 Systolic blood pressure 150 mm[Hg] Jayy Senior MD Work Phone: [facility] 05-29-2017 09:46-0400 BMI (Body Mass Index) 26.32 kg/m2 Bhavna Chiang PA-C [facility] Work Phone: 05-29-2017 09:46-0400 BP Diastolic 48 mm[Hg] Bhavna Chiang PA-C [facility] Work Phone: 05-29-2017 09:46-0400 BP Systolic 110 mm[Hg] Bhavna Chiang PA-C [facility] Work Phone: 05-29-2017 09:46-0400 Height 187.96 cm JAISON [facility] Work Phone: 05-29-2017 09:46-0400 Pulse (Heart Rate) 68 /min Bhavna Chiang PA-C [facility] Work Phone: 05-29-2017 09:46-0400 Respiratory Rate 18 /min JAISON [facility] Work Phone: 05-29-2017 09:46-0400 Weight 92.99 kg JAISON [facility] Work Phone: 05-18-2017 15:00-0400 Body Temperature 97.6 [degF] Bhavna Chiang PA-C [facility] Work Phone: 02-12-2017 13:00-0400 BP [...] Body Temperature 97.59 [degF] Bhavna Chiang PA-C [facility] Work Phone: NEGATED: Highlighted [id number] 10:24-0500 BMI (Body Mass Index) 30.63 kg/m2 Autumn Frost OUTSIDE COLLECTOR [facility] Work Phone: NEGATED: Highlighted [id number] 10:24-0500 BP Diastolic 74 mm[Hg] Autumn Frost OUTSIDE COLLECTOR [facility] Work Phone: NEGATED: Highlighted [id number] 10:24-0500 BP Systolic 129 mm[Hg] Autumncurtis Vanv OUTSIDE COLLECTOR [facility] Work Phone: NEGATED: Highlighted [id number] 10:24-0500 Height 182.88 cm Autumncurtis Frost OUTSIDE COLLECTOR [facility] Work Phone: NEGATED: Highlighted [id number] 10:24-0500 Height 183 cm Autumncurtis Frost OUTSIDE COLLECTOR [facility] Work Phone: NEGATED: Highlighted [id number] 10:24-0500 Pulse (Heart Rate) 54 /min Autumn Frost LPN [facility] Work Phone: NEGATED: Highlighted [id number] 10:24-0500 Weight 102.06 kg Autumn Frost OUTSIDE COLLECTOR [facility] Work Phone: NEGATED: Highlighted [id number] 10:24-0500 Weight 102 kg Autumncurtis Vanv OUTSIDE COLLECTOR [facility] Work Phone: Encounters Encounter Date Encounter Type Care Provider Facility Start: 03-26-2023 End: 03-26-2023 ambulatory BUNNY S LAMBERT Facility:[facility] Start: 03-24-2022 End: 03-24-2022 ambulatory Nurse Pob Work Phone: [facility] Procedures Date Procedure Procedure Detail Performing Clinician [...] End: 05-22-2017 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 Bhavna hCiang PA-C Work Phone: Start: 05-21-2017 End: 06-26-2017 Pacer Clinic Bhavna Chiang PA-C Work Phone: Start: 05-18-2017 End: 05-18-2017 Follow Up Appt Other Bhavna boss PA-C Work Phone: Start: 04-27-2017 History of coronary artery bypass grafting History of coronary artery bypass graft x 2 Xr Mob Work Phone: Start: 04-16-2017 End: 04-23-2017 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 Bhavna Chiang PA-C Work Phone: Start: 04-12-2017 End: 04-18-2017 Carotid duplex Bunny Verdin MD Start: 03-29-2017 End: 04-02-2017 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 Bunny Verdin MD Start: 03-16-2017 [...] End: 03-19-2017 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 Kareem Mota MD Start: 02-12-2017 End: 02-12-2017 *BMP Bhavna Chiang PA-C Work Phone: Start: 02-12-2017 End: 02-12-2017 *CBC with Differential Bhavna mcknight PA-C Work Phone: Start: 02-12-2017 End: 02-12-2017 BODY COMPONENT ENGINEER Bhavna Chiang PA-C Work Phone: Start: 02-12-2017 End: 02-12-2017 Follow Up Appt 6 weeks Bhavna mcknight PA-C Work Phone: Start: 02-12-2017 End: 02-13-2017 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 Bhavna Chiang PA-C Work Phone: [...] End: 02-05-2017 Interrogation eval remote 90 d 1/2/kiln head house operator ld dfhiral Verdin MD Start: 02-02-2017 End: [...] in Serum or Plasma Purvi R Les COLLECTION SYSTEMS TECHNICIAN Work Phone: Start: 10-31-2016 End: 10-31-2016 *CBC w/Diff - oncology ONLY Purvi R Gillian stevens COLLECTION SYSTEMS TECHNICIAN Work Phone: Start: 10-31-2016 End: 10-31-2016 *CMP Complete Metabolic Panel Purvi R Les COLLECTION SYSTEMS TECHNICIAN Work Phone: Start: 10-31-2016 End: 10-31-2016 Ferritin [Mass/volume] in Serum or Plasma Purvi R Les COLLECTION SYSTEMS TECHNICIAN Work Phone: Start: 10-31-2016 End: 10-31-2016 Iron and Iron binding capacity panel - Serum or Plasma Purvi R Les COLLECTION SYSTEMS TECHNICIAN Work Phone: Start: 10-23-2016 End: 02-12-2017 Follow Up Appt 1 month KEELY FaithC Work Phone: Start: 10-23-2016 End: 10-25-2016 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 Bhavna Chiang PA-C Work Phone: Start: 10-23-2016 End: 02-12-2017 Pacer Clinic Bhavna Chiang PA-C Work Phone: Start: 08-29-2016 End: 02-12-2017 Follow Up Appt 1 month Bunny Verdin MD Start: 08-29-2016 End: 08-29-2016 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 Bunny Verdin MD Start: 08-29-2016 End: 02-12-2017 Pacer Clinic Bunny Verdin MD Start: 07-31-2016 End: 08-03-2016 *CBC w/Diff - oncology ONLY Purvi R Gillian stevens COLLECTION SYSTEMS TECHNICIAN Work Phone: Start: 07-31-2016 End: 08-03-2016 *CMP Complete Metabolic Panel Purvi R Les COLLECTION SYSTEMS TECHNICIAN Work Phone: Start: 07-31-2016 End: 08-08-2016 Erythropoietin (EPO) [Units/volume] in Serum or Plasma Purvi R Les COLLECTION SYSTEMS TECHNICIAN Work Phone: Start: 07-31-2016 End: 08-03-2016 Ferritin [Mass/volume] in Serum or Plasma Purvi R Les COLLECTION SYSTEMS TECHNICIAN Work Phone: Start: 07-31-2016 End: 08-03-2016 Reticulocytes/100 erythrocytes in Blood Purvi R Les COLLECTION SYSTEMS TECHNICIAN Work Phone: Start: 07-24-2016 End: 07-24-2016 *BMP Bunny Verdin MD Start: 07-24-2016 End: 02-12-2017 Follow Up Appt 3 months Bhavna hubbard PA-C Work Phone: Start: 07-24-2016 End: 07-24-2016 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 Bhavna Chiang PA-C Work Phone: Start: 07-24-2016 End: 07-24-2016 Magnesium [Mass/volume] in Serum or Plasma Bunny Verdin MD Start: 07-24-2016 End: 03-20-2017 Pacer Clinic Bhavna Chiang PA-C Work Phone: Start: 07-24-2016 End: 07-24-2016 Thyrotropin [Units/volume] in Serum or Plasma Bunny Verdin MD Start: 06-21-2016 End: 06-21-2016 BODY COMPONENT ENGINEER Bhavna Chiang PA-C Work Phone: Start: 06-21-2016 End: 02-12-2017 Follow Up Appt 1 month Bhavna mcknight PA-C Work Phone: Start: 06-21-2016 End: 06-21-2016 Follow Up Appt 6 months Bhavna hubbard PA-C Work Phone: Start: 06-21-2016 End: 06-22-2016 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 Bhavna Chiang PA-C Work Phone: Start: 06-21-2016 End: 02-12-2017 Pacer [facility] Bhavna Chiang PA-C Work Phone: Start: 06-02-2016 End: 06-12-2016 *CMP Complete Metabolic Panel Rachid Dagoberto Malone DO Start: 06-02-2016 End: 06-12-2016 Ferritin [Mass/volume] in Serum or Plasma Rachid Dagoberto Malone Start: 06-02-2016 End: 06-12-2016 Reticulocytes/100 erythrocytes in Blood Rachid Dagoberto KingstonFaisal Start: 05-22-2016 End: 05-29-2016 Follow Up Appt 1 month Bunny Verdin MD Start: 05-22-2016 End: 05-23-2016 Interrogation eval remote 90 d 1/2/kiln head house operator ld dfhiral Verdin MD Start: 05-22-2016 End: 05-29-2016 Pacer Clinic Bunny Verdin MD Start: 04-17-2016 End: 05-29-2016 Follow Up Appt 3 months Nic Hadley Start: 04-17-2016 End: 04-17-2016 Interrogation eval remote 90 d 1/2/kiln head house operator ld toby Verdin MD Start: 04-17-2016 End: 05-29-2016 Pacer Clinic Bunny Verdin MD Start: 03-14-2016 End: 05-29-2016 Follow Up Appt 1 month Bunny Verdin MD Start: 03-14-2016 End: 03-19-2016 Interrogation eval remote 90 d 1/2/kiln head house operator ld toby Verdin MD Start: 03-14-2016 End: 05-29-2016 Pacer Clinic Bunny Verdin MD Start: 03-03-2016 End: 03-31-2016 *CMP Complete Metabolic Panel Rachid Dagoberto Malone DO Start: 03-03-2016 End: 03-31-2016 Ferritin [Mass/volume] in Serum or Plasma Rachid Dagoberto Malone DO Start: 03-03-2016 End: 05-29-2016 Follow Up Appt 3 months Nic Hadley Start: 03-03-2016 End: 03-10-2016 Interrogation eval remote 90 d 1/2/kiln head house operator ld dfhiral Verdin MD Start: 03-03-2016 End: [...] J Kailey SPARKS Start: 12-24-2015 End: 12-24-2015 BODY COMPONENT ENGINEER Bhavna Chiang PA-C Work Phone: Start: 12-24-2015 [...] Ecg routine ecg w/least 12 lds w/i&r Bnuny Verdin MD Start: 09-15-2015 End: 10-06-2015 Follow [...] End: 05-27-2015 24 hour holter monitor Bhavna mcknight PA-C Work Phone: Start: 05-25-2015 End: 05-26-2015 Documentation of current medications Bhvana Chiang PA-C Work Phone: Start: 05-25-2015 End: [...] PA-C Work Phone: Start: 03-24-2014 End: 03-24-2014 BODY COMPONENT ENGINEER Bhavna Chiang PA-C Work Phone: Start: 03-24-2014 [...] PA-C Work Phone: Start: 05-29-2013 End: 05-29-2013 BODY COMPONENT ENGINEER Bhavna Chiang PA-C Work Phone: Start: 05-29-2013 [...] Fran Jewell MD Start: 06-13-2012 End: 06-13-2012 Thyroxine (T4) [...] Detail Author Start: 04-05-2028 Urine microalbumin profile [facility] Start: 04-27-2022 Influenza vaccination [facility] Start: 08-27-2021 ADVANCE DIRECTIVE DISCUSSION ADVANCE DIRECTIVE DISCUSSION [facility] Start: 04-27-2021 Influenza vaccination INFLUENZA (#1) [facility] Start: 03-27-2021 COVID-19 VACCINE (4 - Booster) COVID-19 VACCINE (4 - Booster) [facility] Start: 2018 End: 2018 Appointment Appointment [facility] Work Phone: Start: 2018 End: 2018 Radex hand minimum 3 views XR HAND 3+ VWS-LT [facility] Work Phone: Start: 05-01-2018 Hepatitis B screening URINE ALBUMIN:CREATININE RATIO [facility] Start: 10-19-2017 Hemoglobin A1c/Hemoglobin.total in Blood HBA1C [facility] Start: 08-29-2017 End: 08-29-2017 Appointment Appointment [facility] Work Phone: Start: 07-06-2017 End: 07-04-2017 Thyroid stimulating hormone (TSH) *TSH [facility] Work Phone: Start: 07-06-2017 End: 07-04-2017 Thyroxine (T4) *T4 (Total) [facility] Work Phone: Start: 07-06-2017 End: 07-06-2017 Appointment Appointment [facility] Work Phone: Start: 06-08-2017 End: 06-11-2017 *BMP *BMP [facility] Work Phone: Start: 05-29-2017 End: 05-29-2017 Follow Up Appt Other Follow Up Appt Other [facility] Work Phone: Start: 05-25-2017 End: 05-18-2017 *BMP *BMP [facility] Work Phone: Start: 05-21-2017 End: 06-26-2017 Follow Up Appt 3 months Follow Up Appt 3 months [facility] Work Phone: Start: 05-21-2017 End: 06-26-2017 Pacer Clinic Pacer Clinic [facility] Work Phone: Start: 05-18-2017 End: 05-18-2017 Follow Up Appt Other Follow Up Appt Other [facility] Work Phone: Start: 05-01-2017 End: 11-07-2016 *CBC w/Diff - oncology ONLY *CBC w/Diff - oncology ONLY [facility] Work Phone: Start: 05-01-2017 End: 11-07-2016 *CMP Complete Metabolic Panel *CMP Complete Metabolic Panel [facility] Work Phone: Start: 05-01-2017 End: 11-07-2016 Ferritin *Ferritin [facility] Work Phone: Start: 05-01-2017 End: 11-07-2016 Iron and Iron binding capacity panel - Serum or Plasma *IBC Iron & Total Iron Binding Capacity [facility] Work Phone: Start: 04-12-2017 End: 04-13-2017 Carotid duplex Carotid duplex [facility] Work Phone: Start: 03-16-2017 End: 03-20-2017 Echocardiography Echocardiogram (complete) [facility] Work Phone: Start: 03-16-2017 End: 03-16-2017 Follow Up Appt Other Follow Up Appt Other [facility] Work Phone: Start: 03-16-2017 End: 04-18-2017 Left Heart Cath Left Heart Cath [facility] Work Phone: Start: 03-16-2017 End: 04-18-2017 Magnesium *Magnesium [facility] Work Phone: Start: 02-12-2017 End: 02-12-2017 *BMP *BMP [facility] Work Phone: Start: 02-12-2017 End: 02-12-2017 *CBC with Differential *CBC with Differential [facility] Work Phone: Start: 02-12-2017 End: 02-12-2017 BODY COMPONENT ENGINEER BODY COMPONENT ENGINEER [facility] Work Phone: Start: 02-12-2017 End: 02-12-2017 Follow Up Appt 6 weeks Follow Up Appt 6 weeks [facility] Work Phone: Start: 02-12-2017 End: 02-12-2017 Magnesium *Magnesium [facility] Work Phone: Start: 02-12-2017 End: 02-12-2017 Thyroid stimulating hormone (TSH) *TSH [facility] Work Phone: Start: 02-12-2017 End: 02-12-2017 Thyroxine (T4) *T4 (Total) [facility] Work Phone: Start: 02-12-2017 End: 02-12-2017 Xtrnl mobile cv telemetry w/i&report 30 days 30 Day Holter Monitor [facility] Work Phone: Start: 02-02-2017 End: 02-12-2017 Follow Up Appt 1 month Follow Up Appt 1 month [facility] Work Phone: Start: 02-02-2017 End: 02-12-2017 Pacer Clinic Pacer Clinic [facility] Work Phone: Start: 12-26-2016 End: 02-12-2017 Follow Up Appt 6 months Follow Up Appt 6 months [facility] Work Phone: Start: 12-26-2016 End: 02-12-2017 MMM MMM [facility] Work Phone: Start: 12-04-2016 End: 02-12-2017 Follow Up Appt 3 months Follow Up Appt 3 months [facility] Work Phone: Start: 12-04-2016 End: 02-12-2017 Pacer Clinic Pacer Clinic [facility] Work Phone: Start: 11-08-2016 End: 10-31-2016 *CBC w/Diff - oncology ONLY *CBC w/Diff - oncology ONLY [facility] Work Phone: Start: 11-08-2016 End: 10-31-2016 *CMP Complete Metabolic Panel *CMP Complete Metabolic Panel [facility] Work Phone: Start: 11-08-2016 End: 11-01-2016 Erythropoietin *MICHAEL- Erythropoietin [facility] Work Phone: Start: 11-08-2016 End: 10-31-2016 Ferritin *Ferritin [facility] Work Phone: Start: 11-08-2016 End: 10-31-2016 Iron and Iron binding capacity panel - Serum or Plasma *IBC Iron & Total Iron Binding Capacity [facility] Work Phone: Start: 10-23-2016 End: 02-12-2017 Follow Up Appt 1 month Follow Up Appt 1 month [facility] Work Phone: Start: 10-23-2016 End: 02-12-2017 [facility] Work Phone: Start: 10-06-2016 Hepatitis B surface antibody level LDL CHOLESTEROL [facility] Start: 08-29-2016 End: 02-12-2017 Follow Up Appt 1 month Follow Up Appt 1 month [facility] Work Phone: Start: 08-29-2016 End: 02-12-2017 [facility] Work Phone: Start: 08-10-2016 End: 08-10-2016 Office outpatient visit 25 minutes [id number] Ofc Vst, Est Level IV [facility] Work Phone: Start: 07-31-2016 End: 08-03-2016 *CBC w/Diff - oncology ONLY *CBC w/Diff - oncology ONLY [facility] Work Phone: Start: 07-31-2016 End: 08-03-2016 *CMP Complete Metabolic Panel *CMP Complete Metabolic Panel [facility] Work Phone: Start: 07-31-2016 End: 06-08-2016 *MISC - Miscellaneous Lab Test #1 *MISC - Miscellaneous Lab Test #1 [facility] Work Phone: Start: 07-31-2016 End: 08-08-2016 Erythropoietin *MICHAEL- Erythropoietin [facility] Work Phone: Start: 07-31-2016 End: 08-03-2016 Ferritin *Ferritin [facility] Work Phone: Start: 07-31-2016 End: 08-03-2016 Reticulocytes/100 erythrocytes *Reticulocyte Count [facility] Work Phone: Start: 07-24-2016 End: 07-24-2016 *BMP *BMP [facility] Work Phone: Start: 07-24-2016 End: 02-12-2017 Follow Up Appt 3 months Follow Up Appt 3 months [facility] Work Phone: Start: 07-24-2016 End: 07-24-2016 Magnesium *Magnesium [facility] Work Phone: Start: 07-24-2016 End: 03-20-2017 Pacer Clinic Pacer Clinic [facility] Work Phone: Start: 07-24-2016 End: 07-24-2016 Thyroid stimulating hormone (TSH) *TSH [facility] Work Phone: Start: 06-21-2016 End: 06-21-2016 BODY COMPONENT ENGINEER BODY COMPONENT ENGINEER [facility] Work Phone: Start: 06-21-2016 End: 02-12-2017 Follow Up Appt 1 month Follow Up Appt 1 month [facility] Work Phone: Start: 06-21-2016 End: 06-21-2016 Follow Up Appt 6 months Follow Up Appt 6 months [facility] Work Phone: Start: 06-21-2016 End: 02-12-2017 Pacer Clinic Pacer Clinic [facility] Work Phone: Start: 06-02-2016 End: 03-31-2016 *CBC with Differential *CBC with Differential [facility] Work Phone: Start: 06-02-2016 End: 06-12-2016 *CMP Complete Metabolic Panel *CMP Complete Metabolic Panel [facility] Work Phone: Start: 06-02-2016 End: 03-31-2016 *MISC - Miscellaneous Lab Test #1 *MISC - Miscellaneous Lab Test #1 [facility] Work Phone: Start: 06-02-2016 End: 06-12-2016 Ferritin *Ferritin [facility] Work Phone: Start: 06-02-2016 End: 06-12-2016 Reticulocytes/100 erythrocytes *RETIC Reticulocyte Count Manul [facility] Work Phone: Start: 05-22-2016 End: 05-29-2016 Follow Up Appt 1 month Follow Up Appt 1 month [facility] Work Phone: Start: 05-22-2016 End: 05-29-2016 Pacer Clinic Pacer Clinic [facility] Work Phone: Start: 04-17-2016 End: 05-29-2016 Follow Up Appt 3 months Follow Up Appt 3 months [facility] Work Phone: Start: 04-17-2016 End: 05-29-2016 Pacer Clinic Pacer Clinic [facility] Work Phone: Start: 03-31-2016 End: 03-31-2016 ENT referral ENT referral Connor Navarro, [address] [place], [address] [facility] Work Phone: Start: 03-14-2016 End: 05-29-2016 Follow Up Appt 1 month Follow Up Appt 1 month [facility] Work Phone: Start: 03-14-2016 End: 05-29-2016 Pacer Clinic Pacer Clinic [facility] Work Phone: Start: 03-03-2016 End: 01-25-2016 *CBC with Differential *CBC with Differential [facility] Work Phone: Start: 03-03-2016 End: 03-31-2016 *CMP Complete Metabolic Panel *CMP Complete Metabolic Panel [facility] Work Phone: Start: 03-03-2016 End: 01-25-2016 *MISC - Miscellaneous Lab Test #1 *MISC - Miscellaneous Lab Test #1 [facility] Work Phone: Start: 03-03-2016 End: 03-31-2016 Ferritin *Ferritin [facility] Work Phone: Start: 03-03-2016 End: 05-29-2016 Follow Up Appt 3 months Follow Up Appt 3 months [facility] Work Phone: Start: 03-03-2016 End: 05-29-2016 MMM MMM [facility] Work Phone: Start: 02-08-2016 End: 03-03-2016 Follow Up Appt 1 month Follow Up Appt 1 month [facility] Work Phone: Start: 02-08-2016 End: 03-03-2016 Pacer Clinic Pacer Clinic [facility] Work Phone: Start: 01-17-2016 End: 01-18-2016 *CBC with Differential *CBC with Differential [facility] Work Phone: Start: 01-17-2016 End: 01-18-2016 *CMP Complete Metabolic Panel *CMP Complete Metabolic Panel [facility] Work Phone: Start: 01-17-2016 End: 01-18-2016 Blood Culture Blood Culture [facility] Work Phone: Start: 01-10-2016 End: 01-11-2016 *CBC with Differential *CBC with Differential [facility] Work Phone: Start: 01-10-2016 End: 01-11-2016 C reactive protein (hsCRP) *CRP - C-Reative Protein [facility] Work Phone: Start: 01-10-2016 End: 01-11-2016 Erythrocyte sedimentation rate *Sedimentation Rate (ESR) [facility] Work Phone: Start: 12-28-2015 End: 12-28-2015 *CBC with Differential *CBC with Differential [facility] Work Phone: Start: 12-28-2015 End: 12-28-2015 C reactive protein (hsCRP) *CRP - C-Reative Protein [facility] Work Phone: Start: 12-28-2015 End: 12-28-2015 Erythrocyte sedimentation rate *Sedimentation Rate (ESR) [facility] Work Phone: Start: 12-28-2015 End: 12-28-2015 Oncology Referral Oncology Referral Rachid Malone DO, [facility], [address], [place], [address] [facility] Work Phone: Start: 12-24-2015 End: 12-24-2015 BODY COMPONENT ENGINEER BODY COMPONENT ENGINEER [facility] Work Phone: Start: 12-24-2015 End: 12-24-2015 Follow Up Appt 2 months Follow Up Appt 2 months [facility] Work Phone: Start: 12-22-2015 End: 12-28-2015 *MISC - Miscellaneous Lab Test #1 *MISC - Miscellaneous Lab Test #1 [facility] Work Phone: Start: 12-22-2015 End: 12-22-2015 Blood occult peroxidase actv qual feces 1 deter Hemoccult [facility] Work Phone: Start: 12-22-2015 End: 12-27-2015 Ferritin *Ferritin [facility] Work Phone: Start: 12-22-2015 End: 12-27-2015 Iron *Iron [facility] Work Phone: Start: 12-22-2015 End: 12-27-2015 Iron binding capacity [Mass/volume] in Serum or Plasma *Iron Binding Capacity [facility] Work Phone: Start: 12-09-2015 End: 12-13-2015 Bacteria culture *CUB - Culture, Blood [facility] Work Phone: Start: 11-29-2015 End: 12-13-2015 *BMP *BMP [facility] Work Phone: Start: 11-29-2015 End: 12-13-2015 *CBC with Differential *CBC with Differential [facility] Work Phone: Start: 11-29-2015 End: 12-13-2015 Erythrocyte sedimentation rate *Sedimentation Rate (ESR) [facility] Work Phone: Start: 10-13-2015 End: 10-22-2015 *BMP *BMP [facility] Work Phone: Start: 10-13-2015 End: 10-22-2015 CBC W Auto Differential panel - Blood *CBC without Diff [facility] Work Phone: Start: 09-15-2015 End: 10-06-2015 *BMP *BMP [facility] Work Phone: Start: 09-15-2015 End: 10-06-2015 Cardiac Rehab Cardiac Rehab [facility] Work Phone: Start: 09-15-2015 End: 09-15-2015 Ecg routine ecg w/least 12 lds w/i&r EKG (In office) [facility] Work Phone: Start: 09-15-2015 End: 10-06-2015 Follow Up Appt 3 months Follow Up Appt 3 months [facility] Work Phone: Start: 09-15-2015 End: 09-15-2015 MMM MMM [facility] Work Phone: Start: 09-15-2015 End: 10-22-2015 Pacer Clinic Pacer Clinic [facility] Work Phone: Start: 08-02-2015 End: 10-06-2015 Magnesium *Magnesium [facility] Work Phone: Start: 07-02-2015 End: 10-06-2015 *Hepatic Function Panel *Hepatic Function Panel [facility] Work Phone: Start: 07-02-2015 End: 10-06-2015 Lipid panel [AGGREGATE] *Lipid Profile CC PCP [facility] Work Phone: Start: 06-07-2015 End: 06-07-2015 Follow Up Appt Other Follow Up Appt Other [facility] Work Phone: Start: 06-07-2015 End: 07-02-2015 Magnesium *Magnesium [facility] Work Phone: Start: 05-31-2015 End: 05-31-2015 Magnesium *Magnesium [facility] Work Phone: Start: 05-25-2015 End: 05-26-2015 *BMP *BMP [facility] Work Phone: Start: 05-25-2015 End: 05-26-2015 *CBC with Differential *CBC with Differential [facility] Work Phone: Start: 05-25-2015 End: 05-25-2015 24 hour holter monitor 24 hour holter monitor [facility] Work Phone: Start: 05-25-2015 End: 05-26-2015 BNP *Brain Natriuretic Peptide BNP [facility] Work Phone: Start: 05-25-2015 End: 05-25-2015 Ecg routine ecg w/least 12 lds w/i&r EKG (In office) [facility] Work Phone: Start: 05-25-2015 End: 05-25-2015 Follow Up Appt Other Follow Up Appt Other [facility] Work Phone: Start: 05-25-2015 End: 05-26-2015 Magnesium *Magnesium [facility] Work Phone: Start: 05-25-2015 End: 05-25-2015 MMM MMM [facility] Work Phone: Start: 05-25-2015 End: 05-25-2015 Nuclear stress test -Lexiscan Nuclear stress test -Lexiscan [facility] Work Phone: Start: 05-25-2015 End: 05-26-2015 Thyroid stimulating hormone (TSH) *TSH [facility] Work Phone: Start: 04-07-2015 End: 04-07-2015 Ecg routine ecg w/least 12 lds w/i&r EKG (In office) [facility] Work Phone: Start: 04-07-2015 End: 04-07-2015 Follow Up Appt 6 months Follow Up Appt 6 months [facility] Work Phone: Start: 04-07-2015 End: 04-07-2015 PFM PFM [facility] Work Phone: Start: 10-06-2014 End: 03-30-2015 Follow Up Appt 6 months Follow Up Appt 6 months [facility] Work Phone: Start: 10-06-2014 End: 03-30-2015 MMM MMM [facility] Work Phone: Start: 03-24-2014 End: 03-25-2014 48 hour holter monitor 48 hour holter monitor [facility] Work Phone: Start: 03-24-2014 End: 03-24-2014 BODY COMPONENT ENGINEER BODY COMPONENT ENGINEER [facility] Work Phone: Start: 03-24-2014 End: 03-24-2014 Follow Up Appt 6 months Follow Up Appt 6 months [facility] Work Phone: Start: 09-16-2013 End: 09-16-2013 Follow Up Appt 6 months Follow Up Appt 6 months [facility] Work Phone: Start: 09-16-2013 End: 09-16-2013 MMM MMM [facility] Work Phone: Start: 08-27-2013 End: 12-22-2013 *Hepatic Function Panel *Hepatic Function Panel [facility] Work Phone: Start: 08-27-2013 End: 12-22-2013 Lipid panel [AGGREGATE] *Lipid Profile CC PCP [facility] Work Phone: Start: 05-29-2013 End: 05-29-2013 24 hour holter monitor 24 hour holter monitor [facility] Work Phone: Start: 05-29-2013 End: 05-29-2013 BODY COMPONENT ENGINEER BODY COMPONENT ENGINEER [facility] Work Phone: Start: 05-29-2013 End: 05-29-2013 Follow Up Appt 3 months Follow Up Appt 3 months [facility] Work Phone: Start: 02-25-2013 End: 03-06-2013 *Hepatic Function Panel *Hepatic Function Panel [facility] Work Phone: Start: 02-25-2013 End: 02-25-2013 Echocardiography Echocardiogram (complete) [facility] Work Phone: Start: 02-25-2013 End: 02-25-2013 Follow Up Appt 3 months Follow Up Appt 3 months [facility] Work Phone: Start: 02-25-2013 End: 03-06-2013 Lipid panel [AGGREGATE] *Lipid Profile CC PCP [facility] Work Phone: Start: 02-25-2013 End: 02-25-2013 MMM MMM [facility] Work Phone: Start: 02-17-2013 End: 03-06-2013 *Hepatic Function Panel *Hepatic Function Panel [facility] Work Phone: Start: 02-17-2013 End: 03-06-2013 Lipid panel [AGGREGATE] *Lipid Profile CC PCP [facility] Work Phone: Start: 01-06-2013 End: 01-06-2013 BNP *Brain Natriuretic Peptide BNP [facility] Work Phone: Start: 01-06-2013 End: 01-06-2013 INR Coag RelTime (PPP) *PT/INR - Standing Order [facility] Work Phone: Start: 11-12-2012 End: 01-06-2013 INR Coag RelTime (PPP) *PT/INR - Standing Order [facility] Work Phone: Start: 10-22-2012 End: 01-06-2013 *BMP *BMP [facility] Work Phone: Start: 10-22-2012 End: 01-06-2013 *Hepatic Function Panel *Hepatic Function Panel [facility] Work Phone: Start: 10-22-2012 End: 10-22-2012 Ecg routine ecg w/least 12 lds w/i&r EKG (In office) [facility] Work Phone: Start: 10-22-2012 End: 10-22-2012 Follow Up Appt 4 months Follow Up Appt 4 months [facility] Work Phone: Start: 10-22-2012 End: 01-06-2013 Lipid panel [AGGREGATE] *Lipid Profile [facility] Work Phone: Start: 10-22-2012 End: 01-06-2013 Magnesium *Magnesium [facility] Work Phone: Start: 10-22-2012 End: 01-06-2013 Thyroid stimulating hormone (TSH) *TSH [facility] Work Phone: Start: 10-22-2012 End: 01-06-2013 Thyroxine (T4) *T4 (Total) [facility] Work Phone: Start: 09-05-2012 End: 09-12-2012 Thyroid stimulating hormone (TSH) *TSH [facility] Work Phone: Start: 09-05-2012 End: 09-12-2012 Thyroxine (T4) *T4 (Total) [facility] Work Phone: Start: 06-20-2012 End: 09-17-2012 *BMP *BMP [facility] Work Phone: Start: 06-20-2012 End: 09-17-2012 Magnesium *Magnesium [facility] Work Phone: Start: 06-17-2012 End: 03-10-2012 *Hepatic Function Panel *Hepatic Function Panel [facility] Work Phone: Start: 06-17-2012 End: 03-10-2012 Lipid panel [AGGREGATE] *Lipid Profile [facility] Work Phone: Start: 06-13-2012 End: 06-13-2012 *BMP *BMP [facility] Work Phone: Start: 06-13-2012 End: 06-13-2012 *Hepatic Function Panel *Hepatic Function Panel [facility] Work Phone: Start: 06-13-2012 End: 10-22-2012 Chest x-ray X-Ray, Chest, PA & Lateral [facility] Work Phone: Start: 06-13-2012 End: 06-13-2012 Follow Up Appt 4 months Follow Up Appt 4 months [facility] Work Phone: Start: 06-13-2012 End: 06-13-2012 Magnesium *Magnesium [facility] Work Phone: Start: 06-13-2012 End: 06-13-2012 Pulmonary Fuction Test - complete Pulmonary Fuction Test - complete [facility] Work Phone: Start: 06-13-2012 End: 06-13-2012 Thyroid stimulating hormone (TSH) *TSH [facility] Work Phone: Start: 06-13-2012 End: 06-13-2012 Thyroxine (T4) *T4 (Total) [facility] Work Phone: Start: 05-29-2012 End: 06-05-2012 *BMP *BMP [facility] Work Phone: Start: 05-29-2012 End: 06-05-2012 *Hepatic Function Panel *Hepatic Function Panel [facility] Work Phone: Start: 05-29-2012 End: 06-05-2012 Magnesium *Magnesium [facility] Work Phone: Start: 05-29-2012 End: 06-05-2012 Thyroid stimulating hormone (TSH) *TSH [facility] Work Phone: Start: 05-29-2012 End: 06-05-2012 Thyroxine (T4) *T4 (Total) [facility] Work Phone: Start: 03-12-2012 End: 03-12-2012 Follow Up Appt 3 months Follow Up Appt 3 months [facility] Work Phone: Start: 02-28-2012 End: 03-10-2012 *Hepatic Function Panel *Hepatic Function Panel [facility] Work Phone: Start: 02-28-2012 End: 03-10-2012 Thyroid stimulating hormone (TSH) *TSH [facility] Work Phone: Start: 02-28-2012 End: 03-10-2012 Thyroxine (T4) *T4 (Total) [facility] Work Phone: Start: 12-21-2011 End: 12-21-2011 Ecg routine ecg w/least 12 lds w/i&r EKG (In office) [facility] Work Phone: Start: 12-21-2011 End: 12-21-2011 Follow Up Appt 3 months Follow Up Appt 3 months [facility] Work Phone: Start: 11-29-2011 End: 10-09-2011 *Hepatic Function Panel *Hepatic Function Panel [facility] Work Phone: Start: 11-29-2011 End: 10-09-2011 Lipid panel [AGGREGATE] *Lipid Profile [facility] Work Phone: Start: 10-19-2011 End: 10-09-2011 Thyroid stimulating hormone (TSH) *TSH [facility] Work Phone: Start: 10-19-2011 End: 10-09-2011 Thyroxine (T4) *T4 (Total) [facility] Work Phone: Start: 09-14-2011 End: 09-14-2011 Ecg routine ecg w/least 12 lds w/i&r EKG (In office) [facility] Work Phone: Start: 09-14-2011 End: 09-14-2011 Follow Up Appt 3 months Follow Up Appt 3 months [facility] Work Phone: Start: 09-05-2011 End: 09-11-2011 *BMP *BMP [facility] Work Phone: Start: 09-05-2011 End: 09-11-2011 *Hepatic Function Panel *Hepatic Function Panel [facility] Work Phone: Start: 09-05-2011 End: 09-11-2011 Lipid panel [AGGREGATE] *Lipid Profile [facility] Work Phone: Start: 09-05-2011 End: 09-11-2011 Magnesium *Magnesium [facility] Work Phone: Start: 09-05-2011 End: 09-11-2011 Thyroid stimulating hormone (TSH) *TSH [facility] Work Phone: Start: 09-05-2011 End: 09-11-2011 Thyroxine (T4) *T4 (Total) [facility] Work Phone: Start: 08-01-2011 End: 08-01-2011 Ecg routine ecg w/least 12 lds w/i&r EKG (In office) [facility] Work Phone: Start: 08-01-2011 End: 08-01-2011 Follow Up Appt 6 weeks Follow Up Appt 6 weeks [facility] Work Phone: Start: 07-13-2011 End: 09-05-2011 Ecg routine ecg w/least 12 lds w/i&r EKG (In office) [facility] Work Phone: Start: 1988 SHINGRIX VACCINE (1 of 2) SHINGRIX VACCINE (1 of 2) [facility] Start: 1956 Hepatitis B surface antibody level LDL CHOLESTEROL [facility] Start: 1948 3 comp foot exam completed DIABETIC FOOT EXAM [facility] Start: 1948 Hepatitis C antibody, confirmatory test DILATED RETINAL EXAM [facility] Patient Education [facility] Work Phone: End: 12-22-2022 Radiologic exam abdomen 3+ views XR ABDOMEN 3V KUB W/OBLIQUES Radiology Routine Renal calculi 1 Occurrences starting 11/22/2021 until 12/22/2022 [facility] Work Phone: Immunizations Immunization Date Immunization Notes Care Provider [facility] 05-26-2021 COVID-19 vaccine, ag e 12+ yr (PFIZER-BIONTECH - PURPLE TOP) Estrellita Carnes MD Work Phone: [facility] Work Phone: 05-26-2021 influenza, seasonal, injectable Estrellita Carnes MD Work Phone: [facility] Work Phone: 11-25-2020 COVID-19 vaccine, ag e 12+ yr (PFIZER-BIONTECH - PURPLE TOP) [employer] Work Phone: [facility] Work Phone: 11-04-2020 COVID-19 vaccine, ag e 12+ yr (PFIZER-BIONTECH - PURPLE TOP) [employer] Work Phone: [facility] Work Phone: 10-25-2020 COVID-19 vaccine, ag e 12+ yr (PFIZER-BIONTECH - PURPLE TOP) [employer] Work Phone: [facility] Work Phone: 05-27-2020 influenza, high-dose , quadrivalent vaccine (FLUZONE HIGH DOSE QUADRIVALENT) Estrellita Carnes MD Work Phone: [facility] Work Phone: 06-04-2019 influenza, injectabl e, quadrivalent, preservative free Estrellita Carnes MD Work Phone: [facility] Work Phone: 06-04-2019 influenza, seasonal, injectable Estrellita Carnes MD Work Phone: [facility] Work Phone: 06-04-2019 influenza, seasonal, injectable, preservative free [employer] Work Phone: [facility] Work Phone: 06-04-2019 zoster vaccine recombinant Estrellita Carnes MD Work Phone: [facility] Work Phone: 05-27-2019 influenza, injectabl e, quadrivalent, preservative free [employer] Work Phone: [facility] Work Phone: 03-04-2019 zoster vaccine recombinant Estrellita Carnes MD Work Phone: [facility] Work Phone: 08-13-2018 pneumococcal polysaccharide vaccine, 23 valent Estrellita Carnes MD Work Phone: [facility] Work Phone: 05-21-2018 influenza nasal, unspecified formulation Estrellita Carnes MD Work Phone: [facility] Work Phone: 05-21-2018 influenza, injectabl e, quadrivalent, contains preservative [employer] Work Phone: [facility] Work Phone: 04-05-2018 tetanus toxoid, redu marilou diphtheria toxoid, and acellular pertussis vaccine, adsorbed [employer] Work Phone: [facility] Work Phone: 04-25-2017 influenza, seasonal, injectable [employer] Work Phone: [facility] Work Phone: 04-25-2017 influenza, seasonal, injectable, preservative free [employer] Work Phone: [facility] Work Phone: 04-17-2017 influenza, injectabl e, quadrivalent, contains preservative [employer] Work Phone: [facility] Work Phone: 05-19-2016 influenza, high dose seasonal, preservative-free [employer] Work Phone: [facility] Work Phone: 07-20-2015 pneumococcal conjuga te vaccine, 13 valent [employer] Work Phone: [facility] Work Phone: 06-27-2015 pneumococcal conjuga te vaccine, 13 valent Estrellita Carnes MD Work Phone: [facility] Work Phone: 05-27-2015 influenza, seasonal, injectable Estrellita Carens MD Work Phone: [facility] Work Phone: 05-27-2015 influenza, seasonal, injectable, preservative free [employer] Work Phone: [facility] Work Phone: 05-26-2015 influenza, high dose seasonal, preservative-free [employer] Work Phone: [facility] Work Phone: 05-27-2014 influenza nasal, unspecified formulation Estrellita Carnes MD Work Phone: [facility] Work Phone: 07-16-2013 diphtheria, tetanus toxoids and acellular pertussis vaccine, unspecified formulation Estrellita Carnes MD Work Phone: [facility] Work Phone: 06-27-2013 influenza nasal, unspecified formulation Estrellita Carnes MD Work Phone: [facility] Work Phone: 05-27-2013 influenza, seasonal, injectable Estrellita Carnes MD Work Phone: [facility] Work Phone: 05-27-2013 influenza, seasonal, injectable, preservative free [employer] Work Phone: [facility] Work Phone: 06-05-2012 influenza nasal, unspecified formulation Estrellita Carnes MD Work Phone: [facility] Work Phone: 05-24-2011 influenza nasal, unspecified formulation Estrellita Carnes MD Work Phone: [facility] Work Phone: 05-31-2010 influenza nasal, unspecified formulation Estrellita Carnes MD Work Phone: [facility] Work Phone: 08-27-2009 pneumococcal polysaccharide vaccine, 23 valent [employer] Work Phone: [facility] Work Phone: 05-28-2009 influenza nasal, unspecified formulation Estrellita Carnes MD Work Phone: [facility] Work Phone: 07-06-2008 pneumococcal polysaccharide vaccine, 23 valent Estrellita Carnes MD Work Phone: [facility] Work Phone: No information available. Autumn Frost LPN [facility] Work Phone: Payers Date Payer Category Payer Medicare MEDICARE MEDICAR E A AND B [id number] 2011-Present [phone] [address] [address] [place] [address] Medicare [id number] 2011 Medicare [id number] 2005 Private Health Insurance [id number] 2005 Private Health Insurance KATHIA CHAVARRIA PPO [id number] 2005-Present [phone] [address] [place] [address] PPO [id number] 1940 Unknown [id number] 1940 Unknown [id number] Medicare [id number] Social History Date Type Detail Facility Start: 2018 End: 2018 Assertion Unknown if ever smoked [facility] Work Phone: Tobacco [place] stat [facility] [place] [facility] Work Phone: End: 10-10-1970 History of tobacco use Current smoker [facility] End: 10-10-1970 History of tobacco use Cigarette Smoker [facility] Start: 08-29-2021 End: 03-17-2022 Alcohol intake Current non-drinker of alcohol (finding) [facility] Start: 02-08-2016 Tobacco Comment quit 40 years ago [facility] Start: 1940 Sex Assigned At Male [facility] Start: 10-01-2021 End: 03-17-2022 Exposure to SARS-CoV-2 (event) Not sure [facility] Work Phone: Clinical Notes 03-07-2016 to 03-26-2023 Diana Garner RN - 03/24/2022 10:15 AM EDTTelephone Encounter - Emmy Mendez - 03/17/2022 12:08 PM EDTTelephone Encounter - Estrellita Carnes MD - 03/17/2022 12:01 PM EDT Note Date & Type Note Facility 03-26-2023 Note HNO ID: [id number] Author: Estrellita Carnes MD Service: ? Author Type: Physician Type: Progress Notes Filed: 03/26/2023 6:14 PM Note Text: PRIMARY CARE PHYSICIAN: Corin Hernandez MD ([facility]) [address] [place], [place] [id number] Patient Care Team: Corin Hernandez as PCP - General (Family Medicine) Estrellita Tony V as Specialty Customer Counter Representative (Internal Medicine) Marj Marcial CNP as Specialty Customer Counter Representative (Family Medicine) Jayy Senior MD as Specialty Customer Counter Representative (Urology) Estrellita Carnes MD as Specialty Customer Counter Representative (Cardiology) Bunny Verdin as Specialty Customer Counter Representative (Cardiology) CHIEF COMPLAINT: Follow up for arrhythmia, ICD HISTORY OF PRESENT ILLNESS: Mr. Alegria is a 82 year old male who presents today for a cardiovascular medicine follow-up visit. History copied from previous notes, edited as needed: Dr. Carnes office note 01/23/2018: Mr. Alegria is a 77 year old male who presents today for a cardiovascular medicine follow-up visit. He experienced [id number] cardiac arrest in 06/2015. An ICD was [...] he is having more arrhythmias documented by [facility] or by other monitoring locally. RECOMMENDATIONS (12/2017): Continue with current plan of care from EP standpoint. Consider discontinuing amiodarone as it might no longer be necessary for control of atrial and/or ventricular arrhythmias. I will leave this decision to his local turner and former automatic, Dr. Verdin. Interim history for visit Sarabjit [...] His ICD has been followed at [facility] routinely and has demonstrated normal function and no device discharges. At some point in 2018 amiodarone was discontinued. I reviewed a note from his cardiology office visit 11/16/18 in [place] which was an urgent visit due to irregular heartbeat picked up on his blood pressure monitor and he also had complained of increased fatigue for several months. His EKG showed sinus rhythm with left bundle-branch block and since he was asymptomatic from the arrhythmia standpoint there were no changes made in his meds. I reviewed his last cardiology office visit in [place] from 12/16/18 indicating everything was stable from the cardiac standpoint. Interim history visit Sarabjit Soriano [facility]ST [facility]ER[facility] 09/09/20: Patient presents today for 1 year follow-up, accompanied with his . He follows with Dr. Verdin in [place] I reviewed office notes from Dr. Verdin from 06/29/2020 and 10/30/2019. Patient was hospitalized for chest pain (more content not included)... [facility] 03-24-2022 Nurse Note Spoke with spouse and patient via phone, patient indicated the incision is closed and steri strips intact. Denies drainage or bleeding, denies redness denies fever or chills. Reviewed post device restrictions with patient who voiced understanding. Diana Garner RN documented in this encounter [facility] 03-17-2022 Miscellaneous Notes Scheduled. Patient to be notified upon discharge Emmy Mendez Mr. Alegria needs an appointment (or phone call) with a nurse in 7 - 10 days for wound check after device surgical procedure today. He should be resuming his regular ICD follow up with [facility]. Estrellita Carnes MD March 17, 2022 12:01 PM documented in this encounter [facility] 03-13-2022 Miscellaneous Notes Pt's name has been added to [place] procedure board. Marlee Holland RN Patient is scheduled for an SICD gen change on 03/17/[address] Carnes. The hospital will call the day before between 2-5pm with your arrival time. Patient should not eat or drink after midnight the day before the procedure. Patient will need a cdl driver when released from the hospital. Patient should continue to take medications as prescribed the morning of the procedure with just a sip of water but hold Eliquis 2 days prior to the procedure. 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 #:[id number] Prescriptions as of 11/25/2021 - mometasone (ASMANEX [...] (FLONASE) 50 mcg/actuation nasal spray Use 1 Francis in each nostril once daily. 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] 04/27/2017 Anemia of renal disease [N18.9, D63.1] 01/23/2018 Chronic renal insufficiency, stage III (moderat*01/23/2018 Streptococcus infection, group D enterococcus [*11/15/2015 Family history of cerebrovascular accident (CVA*01/23/2018 History of bacterial endocarditis [Z86.79] 11/15/2015 History of malignant neoplasm of prostate [Z85.*08/27/2002 Current use of exterminator termite anticoagulation [Z79.0*01/31/2016 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 Author [...] Senior MD, FACS Director, Surgical Stone Disease, [facility] [place] principal cloud architect, [facility] [employer] Pager [phone] 11/22/2021[facility]03[facility]29[facility]2022 History of Present illness Narrative* Jayy Senior [...] Senior MD, FACS Director, Surgical Stone Disease, [facility] principal cloud architect, [facility] [employer] Pager [phone] 11/22/2021 [facility] NoteHNO ID: [id number] Author: Jessica Andre RDMS Service: ? Author Type: Camera Person Type: Progress Notes Filed: 11/18/2021 11:00 AM [...] Andre RDMS RVT November 18, 2021 11:00 [facility]03-25-2022 NoteHNO ID: [id number] Author: RT Min(Robi) Service: ? Author Type: [...] BY: RT Min(R) November 18, 2021 9:52 [facility]03-25-2022 History of Present illness Narrative* [...] 18, 2021 11:00 AM [facility] History of Present illness Narrative* RT [...] 18, 2021 9:52 AM [facility] NotePatient Outreach (UROLMN) SUGEYRACHNA ([id number]) 1940 M NFR Date Time Provider Department [...] Date Reviewed: 12/14/2020 Reviewed by: Mariama Padgett ([facility]) KELSEA Sloan - Fully Assessed Visit Diagnosis:Screening for genitourinary condition [Z13.89] Order(s):URINALYSIS, DIPSTICK ONLY [SQUA] Order #: [id number]. 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] 04/27/2017 Anemia of renal disease [N18.9, D63.1] 01/23/2018 Chronic renal insufficiency, stage III (moderat*01/23/2018 Streptococcus infection, group D enterococcus [*11/15/2015 Family history of cerebrovascular accident (CVA*01/23/2018 History of bacterial endocarditis [Z86.79] 11/15/2015 History of malignant neoplasm of prostate [Z85.*08/27/2002 Current use of exterminator termite anticoagulation [Z79.0*01/31/2016 half-way (current) use of antithrombotics/anti*07/15/2017 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 Author Type: [...] Senior MD, FACS Director, Surgical Stone Disease, [facility] [place] principal cloud architect, [facility] Pager [phone] 12/14/2020[facility]04-16-2021 NoteHNO ID: [id number] Author: Betty Briscoe (Rt) Susan Ring Service: Radiology Author Type: Ice Crusher Type: Progress Notes Filed: 12/10/2020 10:37 AM [...] BY: RT Charlene December 10, 2020 10:37 [facility]07-12-2016 History of Past illness Narrative* Problem Noted Date Resolved Date Cardiac arrest 03/07/2016 05/31/2016 Cardiac arrest 07/05/2019 Overview: 07/23/2015: VF documented by EMS upon arrival, defibrillated with 200 Joules to achieve ROSC within 9 minutes of EMS being called half-way current use of amiodarone 09/11/2019 documented as of this encounter (statuses as of 11/22/2021) [facility] Narrative* Problem Noted Date Resolved Date Cardiac arrest 03/07/2016 05/31/2016 Cardiac arrest 07/05/2019 Overview: 07/23/2015: VF documented by EMS upon arrival, defibrillated with 200 Joules to achieve ROSC within 9 minutes of EMS being 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 09/11/2019 documented as of this encounter (statuses as of 11/25/2021) [address]12-2016 History of Past illness Narrative* Problem Noted Date Resolved Date Cardiac arrest 03/07/2016 05/31/2016 Cardiac arrest 07/05/2019 Overview: 07/23/2015: VF documented by EMS upon arrival, defibrillated with 200 Joules to achieve ROSC within 9 minutes of EMS being called half-way current use of amiodarone 09/11/2019 documented as of this encounter (statuses as of 11/19/2021) [address]12-2016 History of Past illness Narrative* Problem Noted Date Resolved Date Cardiac arrest 03/07/2016 05/31/2016 Cardiac arrest 07/05/2019 Overview: 07/23/2015: VF documented by EMS upon arrival, defibrillated with 200 Joules to achieve ROSC within 9 minutes of 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 being 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 09/11/2019 documented as of this encounter (statuses as of 11/19/2021) [address]-2016 History of Past illness Narrative* Problem Noted Date Resolved Date Cardiac arrest 03/07/2016 05/31/2016 Cardiac arrest 07/05/2019 Overview: 07/23/2015: VF documented by EMS upon arrival, defibrillated with 200 Joules to achieve ROSC within 9 minutes of EMS being called half-way current use of amiodarone 09/11/2019 documented as of this encounter (statuses as of 03/13/2022) [facility]* Diagnosis Renal calculi- Primary Calculus of kidney Controlled type 2 diabetes mellitus with diabetic nephropathy, 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 Chronic diarrhea Diarrhea [facility]* Diagnosis Renal calculi Calculus of kidney [facility]* Diagnosis Renal calculi Calculus of kidney Renal cyst Unspecified congenital cystic kidney disease [facility]* Diagnosis Visit for wound check- Primary Encounter for other specified aftercare documented in this encounter [facility] (narrative)* Diagnostic Procedure Only (Routine) - Pending Review Specialty Diagnoses / Procedures Referred By Rambo owens Referred To Contact XR IMAGING Diagnoses Renal calculi Procedures XR ABDOMEN 3V KUB W/OBLIQUES RADIOLOGIC EXAM ABDOMEN 3+ VIEWS Jayy Senior MD [address] [place] [address] Xr Imaging Referral ID Status Reason Start Date Expiration Date Visits Requested Visits Authorized [id number] Pending Review Auto-Generat ed Referral 11/22/2021 12/22/2022 1 1 * Diagnostic Procedure Only (Routine) - Pending Review Specialty Diagnoses / Procedures Referred By Rambo owens Referred To Contact US IMAGING Diagnoses Renal calculi Renal cyst Procedures US KIDNEY/BLADDER US RETROPERITONEAL REAL TIME W/IMAGE COMPLETE Jayy Senior MD [address] [place] [address] Us Imaging Referral ID Status Reason Start Date Expiration Date Visits Requested Visits Authorized [id number] Pending Review Auto-Generat ed Referral 11/22/2021 12/22/2022 1 1 [facility] Summary Purpose Family History No Family History Records FoundThere may be information available, but it has not been provided by the sender.No Family History Records FoundNo Family History Records Found Advance Directives No Advanced Directives Records FoundDocuments on File Type Date Recorded 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 Advance Directive(s) 05/31/2017 9:40 AM Documents on File Type Date Recorded 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 Advance Directive(s) 05/31/2017 9:40 AM Chief Complaint Chief Complaint Description Start Date 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, not [...] DATE CREATED AUTHOR AUTHOR'S ORGANIZ ATION 11/27/2021 [facility] DATE CREATED AUTHOR AUTHOR'S ORGANIZ ATION 03/27/2023 [facility] Reason for Visit (unrecogniz ed section [...] or prosecute any alcohol or drug abuse patient.[facility] HospitalIn the event this information is protected by the Federal Confidentiality of Alcohol and Drug Abuse Patient Records regulations: The Federal rules restrict any use of the information to criminally investigate or prosecute any alcohol or drug abuse patient.[facility] HospitalIn the event this information is protected by the Federal Confidentiality of Alcohol and Drug Abuse Patient Records regulations: The Federal rules restrict any use of the information to criminally investigate or prosecute any alcohol or drug abuse patient.[facility] HospitalIn the event this information is protected by the Federal Confidentiality of Alcohol and Drug Abuse Patient Records regulations: The Federal rules restrict any use of the information to criminally investigate or prosecute any alcohol or drug abuse patient.[facility] HospitalIn the event this information is protected by the Federal Confidentiality of Alcohol and Drug Abuse Patient Records regulations: The Federal rules restrict any use of the information to criminally investigate or prosecute any alcohol or drug abuse patient.[facility] HospitalIn the event this information is protected by the Federal Confidentiality of Alcohol and Drug Abuse Patient Records regulations: The Federal rules restrict any use of the information to criminally investigate or prosecute any alcohol or drug abuse patient.[facility] HospitalIn the event this information is protected by the Federal Confidentiality of Alcohol and Drug Abuse Patient Records regulations: The Federal rules restrict any use of the information to criminally investigate or prosecute any alcohol or drug abuse patient.[facility] Teams (unrecognized sec tion and content) Coil Taper Relationship Specialty Start Date End Date Corin Hernandez Brian PCP - General Family Practice 04/11/17 LambertLoyd duranril S Specialty Customer Counter Representative Cardiology 04/11/17 Shu Gotti Specialty Customer Counter Representative Endocrinology 04/11/17 Estrellita Tony V [address] [place] [address] Specialty Customer Counter Representative Internal Medicine 04/11/17 Marj Marcial, COLLECTION SYSTEMS TECHNICIAN [address] [place] [address] Specialty Customer Counter Representative Family Practice 04/11/17 Jayy Senior MD [address] [place] [address] Specialty Customer Counter Representative Urology 04/11/17 Estrellita Carnes MD [address] [address] Specialty Customer Counter Representative Cardiology 01/23/18 Coil Taper Relationship Specialty Start Date End Date DavidCorin PCP - General Family Practice 04/11/17 LambertLoyd duranril S Specialty Customer Counter Representative Cardiology 04/11/17 Shu Gotti Specialty Customer Counter Representative Endocrinology 04/11/17 Estrellita Tony V [address] [place] [phone] Specialty Customer Counter Representative Internal Medicine 04/11/17 Marj Marcial, COLLECTION SYSTEMS TECHNICIAN [address] [place] [address] Specialty Customer Counter Representative Family Practice 04/11/17 Jayy Senior MD [address] [place], [place] [id number] Specialty Customer Counter Representative Urology 04/11/17 Estrellita Carnes MD [address] [address] Specialty Customer Counter Representative Cardiology 01/23/18 Coil Taper Relationship Specialty Start Date End Date Corin Hernandez PCP - General Family Practice 04/11/17 Bunny Verdin Specialty Customer Counter Representative Cardiology 04/11/17 Shu Gotti Specialty Customer Counter Representative Endocrinology 04/11/17 Estrellita Tony V [address] [place] [phone] Specialty Customer Counter Representative Internal Medicine 04/11/17 Marj Marcial, COLLECTION SYSTEMS TECHNICIAN [address] [place] [address] Specialty Customer Counter Representative Family Practice 04/11/17 Jayy Senior MD [address] [place] [address] Specialty Customer Counter Representative Urology 04/11/17 Estrellita Carnes MD [address] [place] [address] (Fax) Specialty Customer Counter Representative Cardiology 01/23/18 Coil Taper Relationship Specialty Start Date End Date Corin Hernandez PCP - General Family Practice 04/11/17 Lambert, Millwood S Specialty Customer Counter Representative Cardiology 04/11/17 Shu Gotti MD Specialty Customer Counter Representative Endocrinology 04/11/17 Estrellita Tony V [address] [place] [address] Specialty Customer Counter Representative Internal Medicine 04/11/17 Marj Marcial, COLLECTION SYSTEMS TECHNICIAN [address] [place] [address] Specialty Customer Counter Representative Family Practice 04/11/17 Jayy Senior MD [address] [place] [address] Specialty Customer Counter Representative Urology 04/11/17 sEtrellita Carnes MD [address] [place] [address] (Fax) Specialty Customer Counter Representative Cardiology 01/23/18 Coil Taper Relationship Specialty Start Date End Date Corin Hernandez PCP - General Family Practice 04/11/17 Lambert, Bunny S Specialty Customer Counter Representative Cardiology 04/11/17 Shu Gotti MD Specialty Customer Counter Representative Endocrinology 04/11/17 Estrellita Tony V [address] [facility] [place] [address] Specialty Customer Counter Representative Internal Medicine 04/11/17 Marj Marcial, COLLECTION SYSTEMS TECHNICIAN [address] [place] [address] Specialty Customer Counter Representative Family Practice 04/11/17 Jayy Senior MD [address] [place] [address] Specialty Customer Counter Representative Urology 04/11/17 Estrellita Carnes MD [address] [facility] [address] [place] [address] Specialty Customer Counter Representative Cardiology 01/23/18 FOR RECORDS PERTAINING TO PATIENTS [...] BE BASED ON THE PRIMARY CLINICAL RECORDS. [facility] [employer] provides no warranty or guarantee of the accuracy or completeness of information in this document.
[2023-10-27 08:32] LABS: Anion Gap 5 (5-15); BUN 38 mg/dL (7-18); BUN/Creat Ratio 20.4 RATIO (10-20); Calcium,Total 9.1 mg/dL (8.5-10.1); Chloride 113 mmol/L (98-107); Creatinine, Serum 1.86 mg/dL (0.70-1.30); EST Glomerular Filtration Rate 37 mL/min (>60); Est Glom Filt Rate - Afr Amer 45 mL/min (>60); Glucose 81 mg/dL (74-106); Potassium 3.6 mmol/L (3.5-5.1); Sodium Level 143 mmol/L (136-145)
== END | disposition home or self-care (01) ==
LOC: LAB 07:21
PROVIDERS: PCP Family Medicine; Referring Provider Internal Medicine Nephrology; Visit Provider Internal Medicine Nephrology
DX: N18.31 Chronic kidney disease, stage 3a (principal)
CPT/HCPCS: 36415; 80048

== ENCOUNTER → 2023-12-13 | Outpatient (CLI) | payer MEDICARE, OTHER, SELFPAY ==
[2023-12-13 09:37] LABS: BNP,B-Type NATRIURETIC PEPTIDE 80.3 pg/mL (0-100)
[2023-12-13 09:47] LABS: ALB/GLOB Ratio 0.9 RATIO (0.9-2.4); AST(SGOT) 24 U/L (15-37); Alanine Aminotransfer ALT/SGPT 38 U/L (16-61); Albumin, Serum 3.1 g/dL (3.2-5.0); Alkaline Phosphatase 101 U/L (45-117); Anion Gap 6 (5-15); BUN 33 mg/dL (7-18); BUN/Creat Ratio 16.3 RATIO (10-20); Calcium,Total 8.3 mg/dL (8.5-10.1); Chloride 113 mmol/L (98-107); Creatinine, Serum 2.03 mg/dL (0.70-1.30); EST Glomerular Filtration Rate 33 mL/min (>60); Est Glom Filt Rate - Afr Amer 40 mL/min (>60); Globulin 3.4 g/dL (2.2-4.2); Glucose 182 mg/dL (74-106); Potassium 3.9 mmol/L (3.5-5.1); Protein, Total 6.5 g/dL (6.4-8.2); Sodium Level 140 mmol/L (136-145)
[2023-12-13 11:34] LABS: Hemoglobin A1c 7.1 % (3.8-5.6)
== END | disposition home or self-care (01) ==
LOC: LAB 07:50
PROVIDERS: PCP Family Medicine; Referring Provider Family Medicine; Visit Provider Internal Medicine Nephrology
DX: E11.9 Type 2 diabetes mellitus without complications (principal)
CPT/HCPCS: 36415; 80053; 83036; 83880

== ENCOUNTER → 2023-12-18 | Outpatient (CLI) | payer MEDICARE, OTHER, SELFPAY ==
[2023-12-18 10:54] LABS: Hematocrit 40.3 % (40-54); Hemoglobin 12.9 g/dL (13.0-16.5); Hemoglobin A1c 6.8 % (3.8-5.6); Mean Corpuscular Hgb 30.8 pg (27.0-32.0); Mean Corpuscular Volume 96.2 fL (80-94); Mean Platelet Vol. 10.3 fl (6.2-12.0); Platelet Count 211 K/mm3 (150-450); RBC Distribution Width CV 14.3 % (11.6-14.6); RBC Distribution Width SD 49.7 fl (35.1-43.9); Red Blood Count 4.19 M/mm3 (4.6-6.2); White Blood Count 10.4 K/mm3 (4.4-11.0)
[2023-12-18 10:57] LABS: Vitamin D,25 Hydroxy 55.1 ng/mL
[2023-12-18 11:03] LABS: Microalbumin:Creatinine Ratio 285.9 mg/g CRE (<30 mg/g CRE)
[2023-12-18 11:07] LABS: ALB/GLOB Ratio 0.9 RATIO (0.9-2.4); AST(SGOT) 19 U/L (15-37); Alanine Aminotransfer ALT/SGPT 35 U/L (16-61); Albumin, Serum 3.4 g/dL (3.2-5.0); Alkaline Phosphatase 108 U/L (45-117); Anion Gap 7 (5-15); BUN 32 mg/dL (7-18); BUN/Creat Ratio 15.9 RATIO (10-20); Calcium,Total 9.1 mg/dL (8.5-10.1); Chloride 112 mmol/L (98-107); Creatinine, Serum 2.01 mg/dL (0.70-1.30); EST Glomerular Filtration Rate 34 mL/min (>60); Est Glom Filt Rate - Afr Amer 41 mL/min (>60); Free T3 0.9 pg/mL (2.18-3.98); Globulin 3.7 g/dL (2.2-4.2); Glucose 190 mg/dL (74-106); Potassium 4.6 mmol/L (3.5-5.1); Protein, Total 7.1 g/dL (6.4-8.2); Sodium Level 142 mmol/L (136-145); Thyroid Stim Hormone (TSH) 0.98 uIU/mL (0.358-3.74)
== END | disposition home or self-care (01) ==
LOC: LAB 08:41
PROVIDERS: PCP Family Medicine; Referring Provider Internal Medicine Endocrinology, Diabetes & Metabolism; Visit Provider Internal Medicine Endocrinology, Diabetes & Metabolism
DX: E11.22 Type 2 diabetes mellitus with diabetic chronic kidney disease (principal); Z79.4 Long term (current) use of insulin; E03.9 Hypothyroidism, unspecified; E78.5 Hyperlipidemia, unspecified
CPT/HCPCS: 36415; 80053; 82043; 82306; 82570; 83036; 84443; 84481; 85027

== ENCOUNTER 2023-12-25 00:09 | Emergency (ER) | payer OTHER, SELFPAY ==
[2023-12-25 00:10] VITALS: BP 202/68; PULSE 72; RESP 20; TEMP 36.1; O2SAT 99
--- NOTE | 2023-12-25 00:21 | EDS_ITS ---
HPI History of Present Illness Chief Complaint: Hypoglycemia Informant: patient and spouse/S.O. Narrative Narrative: 83-year-old diabetic male brought by his for hypoglycemia in the 40s. He has had his usual doses of insulin earlier in the day, but before dinner he had his usual 5 units, ate dinner and then they checked it sometime afterwards and it was low. He has been asymptomatic. gave him some glucose tablets for that number, however she looked at the bottles afterwards and realized that they were , one of them was from 2012 and the other was from 2022. She is concerned that they did not work. He had chicken and some pasta for dinner. He states after this a little while, he checked his blood sugar with his Dexcom and it read 62 they did a fingerstick and it was 64. Right now he is 72 according to his Dexcom and he feels fine. No recent illness. No vomiting. PFSH [facility] Medical History 65 years of age or older Anemia Atherosclerotic heart disease of [place] coronary artery without angina pectoris Atrial fibrillation Bacterial endocarditis Bilateral carotid bruits Cardiac arrest with ventricular fibrillation (06/2015) Cardiology follow-up encounter Carotid stenosis, left Chronic kidney disease (CKD) Chronic systolic (congestive) heart failure CKD (chronic kidney disease) stage 3, GFR 30-59 ml/min Congestive heart failure (CHF) COPD (chronic obstructive pulmonary disease) COVID-19 (06/01/21) CPAP (continuous positive airway pressure) dependence Dark stools Diabetes Dietary restriction Dizziness Elevated LFTs Essential (primary) hypertension Former smoker History of acute bacterial endocarditis History of echocardiogram History of stress test HLD (hyperlipidemia) Hypokalemia Hypothyroidism ICD (implantable cardioverter-defibrillator) in place Infection and inflammatory reaction due to other cardiac and vascular devices, implants and grafts, initial encounter Infectious endocarditis Insulin dependent diabetes mellitus Iron deficiency Irregular heart beat Ischemic cardiomyopathy Kidney disease Kidney stones Left bundle branch block Malignant pericardial effusion Night sweats Nonrheumatic mitral (valve) prolapse Paroxysmal atrial fibrillation Postoperative atrial fibrillation Primary idiopathic hypertrophic cardiomyopathy Spinal stenosis at L4-L5 level Thalamic mass Type II diabetes mellitus Wears dentures Wears glasses Wears hearing aid Home Medications cholecalciferol (vitamin D3) 25 mcg (1,000 unit) capsule 1,000 unit PO BID supplement 05/20/18 [History Last Taken 03/20/20 19:00 1000 units] ferrous gluconate 324 mg (37.5 mg iron) tablet 325 mg PO DAILY iron supplement 05/20/18 [History Last Taken 03/20/20 19:00 325 mg] insulin aspart U-100 100 unit/mL (3 mL) subcutaneous pen 5 unit subcut DINNER DM 05/20/18 [History Last Taken 03/20/20 18:00 12 units] insulin aspart U-100 100 unit/mL (3 mL) subcutaneous pen 10 units subcut BREAKFAST DM 05/20/18 [History Last Taken 03/20/20 08:00 12 units] multivitamin 1 each PO DAILY supplement 05/20/18 [History Last Taken 03/20/20 08:00 1 each] omega-3 fatty acids-fish oil 300 mg-1,000 mg capsule 1 each PO DAILY supplement 05/20/18 [History Last Taken 03/20/20 08:00 1 each] apixaban 2.5 mg tablet (Eliquis) 2.5 mg PO BID blood thinner 06/29/20 [History Last Taken 04/02/22] Handicap Parking Placard #1 ea 08/25/20 [Rx Last Taken Unknown] albuterol sulfate 90 mcg/actuation aerosol inhaler 2 puff inhalation Q4H PRN fill as courtesy until 's office open #18 grams 11/22/20 [Rx Last Taken Unknown] insulin glargine 100 unit/mL subcutaneous solution 10 unit SQ QHS DM 11/24/20 [History Last Taken Unknown] lactobacillus comb no.10 20 billion cell capsule 1 each PO DAILY supplement 11/24/20 [History Last Taken Unknown] ascorbic acid (vitamin C) 1,000 mg tablet 1,000 mg PO DAILY supplement 12/29/20 [History Last Taken Unknown] fluticasone propionate 50 mcg/actuation nasal spray,suspension (Flonase Allergy Relief) 2 spray intranasal DAILY congestion 12/29/20 [History Last Taken Unknown] albuterol sulfate 2.5 mg/3 mL (0.083 %) solution for nebulization 2.5 mg continuous nebulization QHS breathing 01/30/21 [History Last Taken Unknown] mometasone 200 mcg/actuation HFA aerosol inhaler (Asmanex HFA) 2 puff inhalation BID 01/19/22 [History Last Taken Unknown] empagliflozin 25 mg tablet (Jardiance) 12.5 mg PO DAILY 03/24/22 [History Last Taken Unknown] guaifenesin 600 mg tablet, extended release 12 hr (Mucinex) 600 mg PO BID 04/02/22 [History Last Taken 04/02/22] spironolactone 25 mg tablet 25 mg PO DAILY Dose increased from 12.5 mg to 25 mg daily #90 tabs 04/04/23 [Rx Last Taken Unknown] azelastine 137 mcg (0.1 %) nasal spray aerosol 1 spray intranasal QHS 05/22/23 [History Last Taken Unknown] atorvastatin 20 mg tablet 20 mg PO QHS #90 tabs 07/09/23 [Rx Last Taken Unknown] carvedilol 25 mg tablet 25 mg PO BID Patient going out of state for 3 months #180 tabs 09/04/23 [Rx Last Taken Unknown] diltiazem HCl 120 mg capsule,extended release 24 hr (Cardizem CD) 120 mg PO BID Patient going out of state for 3 months #180 caps 09/04/23 [Rx Last Taken Unknown] omeprazole 40 mg capsule,delayed release 40 mg PO DAILY Patient going out of state for 3 months #90 caps 09/04/23 [Rx Last Taken Unknown] bevacizumab 25 mg/mL intravenous solution (Avastin) 12/25/23 [History Last Taken Unknown] levothyroxine 125 mcg tablet 125 mcg PO DAILY 12/25/23 [History Last Taken Unknown] tiotropium 2.5 mcg-olodaterol 2.5 mcg/actuation mist for inhalation (Stiolto Respimat) 2 puff inhalation DAILY 12/25/23 [History Last Taken Unknown] vitamins A,C,P-tpeh-aaethe 2,148 mcg-113 mg-45 mg-17.4 mg tablet (Eye Multivitamin) 2 tab PO BID 12/25/23 [History Last Taken Unknown] Allergy/AdvReac Type Severity Reaction Status Date / Time latex Allergy Other Verified 12/25/23 00:10 LAURA Inhibitors AdvReac Intermediate cough Verified 12/25/23 00:10 enalapril AdvReac Intermediate Shortness Verified 12/25/23 00:10 of breath adhesive tape AdvReac rash Verified 12/25/23 00:10 warfarin [From Coumadin] AdvReac bleeding Verified 12/25/23 00:10 under the skin Family History Father , age 47 from peritonitis Peritonitis Mother , age 93 CVA (cerebral vascular accident) several TIA's Surgical History Abnormal fractional flow reserve (FFR) on cardiac catheterization (02/2017) H/O coronary artery bypass surgery (04/27/17) History of appendectomy History of cardioversion (04/2017) History of implantable cardiac defibrillator (ICD) (03/17/22) History of left heart catheterization History of partial amputation of left hand Hx of bilateral cataract extraction Hx of cholecystectomy Hx of prostatectomy ICD (implantable cardioverter-defibrillator) infection Social History household members: spouse Smoking Status: Former smoker how long ago did patient quit smoking: Quit ~ 50 years prior, prior to quitting up to 4 ppd since 9/10 years old. alcohol intake: never substance use type: does not use caffeine: No what type of physical activity do you participate in: walking frequency: 5-6 times per week duration: 15-30 minutes/day seatbelt use: always do you feel safe at home: Yes ROS ROS ED Constitutional Constitutional ED: Denies chills or fever(s) Eyes Eyes: Denies change in vision or diplopia ENT ENT ED: Denies rhinorrhea or sore throat Cardiovascular Cardiovascular: Denies chest pain or palpitations Respiratory/Chest Respiratory/Chest: Denies cough or dyspnea Gastrointestinal Gastrointestinal: Denies abdominal pain, diarrhea, nausea or vomiting Genitourinary Genitourinary ED: Denies dysuria or hematuria Musculoskeletal Musculoskeletal: Denies back pain or neck pain Integumentary Denies abscess or rash Neurologic Neurologic: Denies headache(s), paresthesias or weakness Psychiatric Psychiatric: Denies anxiety or suicidal thoughts EXAM Physical Exam Const Vital Signs: 12/25/23 00:10 12/25/23 00:45 Temperature 97 F L Temperature Source Temporal Pulse Rate 72 Respiratory Rate 20 H Respiratory Pattern Normal Blood Pressure 202/68 H Blood Pressure Mean 112 Pulse Ox 99 Oxygen Delivery Method Room Air Positive well nourished and well developed General Appearance ED: well developed and NAD HEENT Reports moist mucous membranes normocephalic and atraumatic Eyes PERRL and EOMs intact bilaterally Neck full ROM and supple Resp normal respiratory effort and clear to auscultation bilaterally Cardio regular rate and regular rhythm Heart Sounds: murmur systolic I/ soft Peripheral Pulses: pulses 2+ throughout GI non-tender and non-distended Auscultation: normoactive bowel sounds Palpation: soft Back/Spine no CVA tenderness General Back: other FROM Extremity normal to inspection General Extremety ED: Negative for edema, pulses abnormal or tenderness General Extremity: Negative for edema or pulses abnormal Neuro oriented x3, CN's II-XII intact bilaterally and no sensory deficits noted Sensorium / Orientation: awake and alert Motor Exam: strength 5/5 throughout Skin no rashes or lesions noted and no wounds MDM MDM MDM Narrative Medical decision making narrative: Patient has a benign exam, his vital signs are noted a little hypertensive initially. I do not think he needs emergent workup for this hypoglycemia. My suspicion is that he did not eat a lot of simple sugars with dinner and this was more complex carbohydrates in the pasta, and it took him some time to come back up but he was not low enough that he felt symptomatic which is good. We did a fingerstick as well, it is 85 and his Dexcom is reading 82, so I think the measurements from the Dexcom are reliable. A little later it was 86 after he had been here for an hour, blood pressure reading 171. He is not sure if he has taken his blood pressure medicines for the night. It is 1 AM and she and he are comfortable going home on comfortable letting them, if his medications were already taken for the night as blood pressure is high, he should contact his doctor in the morning but he is asymptomatic right now so I am not concerned about treating his number emergently. Lab Data Attestation: I reviewed the patient's lab results. Labs: Laboratory Results - last 24 hr 12/25/23 00:28 POC Glucose 83 Discharge Plan Triage Chief Complaint: Hypoglycemia ED Provider: Vineet Wright Dx/Rx/DC Orders Clinical Impression: Hypoglycemia associated with type 2 diabetes mellitus Instructions: ED Diabetic Insulin Reaction Prescriptions: No Action Eliquis 2.5 mg tablet 2.5 mg PO BID Patient Comments: pt states per Dr Antony's instructions, will stop Eliquis 48hrs prior to surgery on 04/06/21 fluticasone propionate [Flonase Allergy Relief] 50 mcg/actuation spray,suspension 2 spray intranasal DAILY Rx Instructions: administer into each nostril Asmanex HFA 200 mcg/actuation HFA aerosol inhaler 2 puff inhalation BID Jardiance 25 mg tablet 12.5 mg PO DAILY Rx Instructions: take 1/2 tab daily multivitamin 1 EACH tablet 1 each PO DAILY cholecalciferol (vitamin D3) 1,000 UNIT capsule 1,000 unit PO BID insulin aspart U-100 100 UNITS/ML insulin pen 10 units SC BREAKFAST Rx Instructions: SSI insulin aspart U-100 100 UNITS/ML insulin pen 5 unit SC DINNER Rx Instructions: SSI omega-3 fatty acids-fish oil 1 EACH capsule 1 each PO DAILY ferrous gluconate 325 MG tablet 325 mg PO DAILY ascorbic acid (vitamin C) 1,000 mg tablet 1,000 mg PO DAILY insulin glargine 100 UNIT/ML solution 10 unit SQ QHS Rx Instructions: SSI lactobacillus comb no.10 1 EACH capsule 1 each PO DAILY albuterol sulfate 2.5 mg /3 mL (0.083 %) solution for nebulization 2.5 mg continuous nebulization QHS Patient Comments: USE 1 VIAL IN NEBULIZER AT BEDTIME guaifenesin [Mucinex] 600 mg Tablet Extended Release 12hr 600 mg PO BID azelastine 137 mcg (0.1 %) aerosol,spray 1 spray INTRANASAL QHS Patient Comments: USE 1 TO 2 SPRAY(S) IN EACH NOSTRIL TWICE DAILY Stiolto Respimat 2.5-2.5 mcg/actuation mist 2 puff inhalation DAILY levothyroxine 125 mcg tablet 125 mcg PO DAILY Eye Multivitamin 2,148 mcg-113 mg-45 mg-17.4mg tablet 2 tab PO BID Rx Instructions: administer with AM and PM meals Avastin 25 mg/mL solution (DME) Handicap Parking Placard See Rx Instructions .Route .MEDSUPPLY Qty: 1 0RF Rx Instructions: As directed albuterol sulfate 90 mcg/actuation HFA aerosol inhaler 2 puff INHALATION Q4H PRN (Reason: fill as courtesy until 's office open) Qty: 18 0RF spironolactone 25 mg tablet 25 mg PO DAILY Qty: 90 3RF atorvastatin 20 mg tablet 20 mg PO QHS Qty: 90 3RF omeprazole 40 mg capsule,delayed release(DR/EC) 40 mg PO DAILY Qty: 90 3RF carvedilol 25 mg tablet 25 mg PO BID Qty: 180 3RF diltiazem HCl [Cardizem CD] 120 mg capsule,extended release 24hr 120 mg PO BID Qty: 180 3RF Primary Care Provider: Katherin Edge Referrals: Katherin Edge MD [Primary Care Provider] - As Needed Disposition Disposition: Home, Self Care
[2023-12-25 00:47] LABS: Bedside Glucose 83 mg/dL (74-106)
[2023-12-25 00:57] VITALS: BMI 27.3
[2023-12-25 01:03] VITALS: BP 171/56; PULSE 72; RESP 16; TEMP 36.9; O2SAT 97
== END 2023-12-25 01:05 | disposition home or self-care (01) ==
LOC: ED 00:26
PROVIDERS: Emergency Provider Emergency Medicine; PCP Family Medicine; Visit Provider Emergency Medicine
DX: E11.649 Type 2 diabetes mellitus with hypoglycemia without coma (principal); I13.0 Hypertensive heart and chronic kidney disease with heart failure and stage 1 through stage 4 chronic kidney disease, or unspecified chronic kidney disease; I50.22 Chronic systolic (congestive) heart failure; J44.9 Chronic obstructive pulmonary disease, unspecified; I48.0 Paroxysmal atrial fibrillation; Z79.4 Long term (current) use of insulin; E11.22 Type 2 diabetes mellitus with diabetic chronic kidney disease; N18.30 Chronic kidney disease, stage 3 unspecified; Z87.891 Personal history of nicotine dependence; Z95.1 Presence of aortocoronary bypass graft; Z95.810 Presence of automatic (implantable) cardiac defibrillator; E03.9 Hypothyroidism, unspecified; Z86.16 Personal history of COVID-19; I25.10 Atherosclerotic heart disease of native coronary artery without angina pectoris
CPT/HCPCS: 82962; 99282

== ENCOUNTER → 2024-03-19 | Outpatient (CLI) | payer MEDICARE, OTHER, SELFPAY ==
[2024-03-19 09:47] LABS: Vitamin D,25 Hydroxy 43.7 ng/mL
[2024-03-19 09:52] LABS: Hemoglobin A1c 6.3 % (3.8-5.6)
[2024-03-19 09:54] LABS: ALB/GLOB Ratio 0.9 RATIO (0.9-2.4); AST(SGOT) 24 U/L (15-37); Alanine Aminotransfer ALT/SGPT 41 U/L (16-61); Albumin, Serum 3.3 g/dL (3.2-5.0); Alkaline Phosphatase 101 U/L (45-117); Anion Gap 7 (5-15); BUN 34 mg/dL (7-18); BUN/Creat Ratio 15.5 RATIO (10-20); Calcium,Total 8.4 mg/dL (8.5-10.1); Chloride 115 mmol/L (98-107); Cholesterol 165 mg/dL (200); EST Glomerular Filtration Rate 30 mL/min (>60); Est Glom Filt Rate - Afr Amer 37 mL/min (>60); Globulin 3.7 g/dL (2.2-4.2); Glucose 131 mg/dL (74-106); High Density Lipoprotein 48 mg/dL; Potassium 3.6 mmol/L (3.5-5.1); Sodium Level 145 mmol/L (136-145); T4 Free Direct 0.88 ng/dL (0.76-1.46); Thyroid Stim Hormone (TSH) 2.18 uIU/mL (0.358-3.74); Triglycerides 138 mg/dL; Very Low Density Lipoprotein 28 mg/dL (5-40)
== END | disposition home or self-care (01) ==
PROVIDERS: PCP Family Medicine; Referring Provider Internal Medicine Endocrinology, Diabetes & Metabolism; Visit Provider Internal Medicine Endocrinology, Diabetes & Metabolism
DX: E11.22 Type 2 diabetes mellitus with diabetic chronic kidney disease (principal); Z79.4 Long term (current) use of insulin; N18.30 Chronic kidney disease, stage 3 unspecified; E03.9 Hypothyroidism, unspecified; E78.5 Hyperlipidemia, unspecified
CPT/HCPCS: 36415; 80053; 80061; 82306; 83036; 84439; 84443

== ENCOUNTER → 2024-04-23 | Outpatient (CLI) | payer MEDICARE, OTHER, SELFPAY ==
[2024-04-23 10:39] LABS: Protein, Urine (Random) 93.8 mg/dL (<11.9); Protein:Creat Ratio 1129 mg/g CRE (0-200)
[2024-04-23 10:52] LABS: Anion Gap 7 (5-15); BUN 34 mg/dL (7-18); BUN/Creat Ratio 19.3 RATIO (10-20); Calcium,Total 9.5 mg/dL (8.5-10.1); Chloride 110 mmol/L (98-107); Creatinine, Serum 1.76 mg/dL (0.70-1.30); EST Glomerular Filtration Rate 39 mL/min (>60); Est Glom Filt Rate - Afr Amer 48 mL/min (>60); Glucose 171 mg/dL (74-106); Potassium 3.9 mmol/L (3.5-5.1); Sodium Level 139 mmol/L (136-145)
== END | disposition home or self-care (01) ==
PROVIDERS: PCP Family Medicine; Referring Provider Internal Medicine Nephrology; Visit Provider Internal Medicine Nephrology
DX: N18.31 Chronic kidney disease, stage 3a (principal)
CPT/HCPCS: 36415; 80048; 82570; 84156

== ENCOUNTER → 2024-06-09 | Outpatient (CLI) | payer MEDICARE, OTHER, SELFPAY ==
[2024-06-09 11:47] LABS: Creatinine, Serum 1.93 mg/dL (0.70-1.30); EST Glomerular Filtration Rate 35 mL/min (>60); Est Glom Filt Rate - Afr Amer 43 mL/min (>60)
== END | disposition home or self-care (01) ==
PROVIDERS: PCP Family Medicine; Referring Provider Family Medicine; Visit Provider Family Medicine
DX: U07.1 COVID-19 (principal); J44.9 Chronic obstructive pulmonary disease, unspecified
CPT/HCPCS: 36415; 82565

== ENCOUNTER → 2024-06-17 | Outpatient (CLI) | payer MEDICARE, OTHER, SELFPAY ==
[2024-06-17 09:48] LABS: Vitamin D,25 Hydroxy 36.2 ng/mL
[2024-06-17 09:57] LABS: AST(SGOT) 17 U/L (15-37); Alanine Aminotransfer ALT/SGPT 39 U/L (16-61); Albumin, Serum 3.4 g/dL (3.2-5.0); Alkaline Phosphatase 89 U/L (45-117); Anion Gap 7 (5-15); BUN 31 mg/dL (7-18); BUN/Creat Ratio 17.4 RATIO (10-20); Calcium,Total 8.6 mg/dL (8.5-10.1); Chloride 112 mmol/L (98-107); Cholesterol 152 mg/dL (200); Creatinine, Serum 1.78 mg/dL (0.70-1.30); EST Glomerular Filtration Rate 39 mL/min (>60); Est Glom Filt Rate - Afr Amer 47 mL/min (>60); Free T3 1.8 pg/mL (2.18-3.98); Globulin 3.3 g/dL (2.2-4.2); Glucose 141 mg/dL (74-106); High Density Lipoprotein 48 mg/dL; Potassium 3.6 mmol/L (3.5-5.1); Protein, Total 6.7 g/dL (6.4-8.2); Sodium Level 142 mmol/L (136-145); T4 Free Direct 0.91 ng/dL (0.76-1.46); Triglycerides 198 mg/dL; Very Low Density Lipoprotein 40 mg/dL (5-40)
[2024-06-17 10:06] LABS: Microalbumin:Creatinine Ratio 382.7 mg/g CRE (<30 mg/g CRE)
[2024-06-17 10:29] LABS: Hemoglobin A1c 6.8 % (3.8-5.6)
== END | disposition home or self-care (01) ==
LOC: LAB 08:42
PROVIDERS: PCP Family Medicine; Referring Provider Internal Medicine Endocrinology, Diabetes & Metabolism; Visit Provider Internal Medicine Endocrinology, Diabetes & Metabolism
DX: E11.22 Type 2 diabetes mellitus with diabetic chronic kidney disease (principal); Z79.4 Long term (current) use of insulin; N18.30 Chronic kidney disease, stage 3 unspecified; E03.9 Hypothyroidism, unspecified
CPT/HCPCS: 36415; 80053; 80061; 82043; 82306; 82570; 83036; 84439; 84443; 84481

== ENCOUNTER → 2024-09-02 | Outpatient (CLI) | payer MEDICARE, OTHER, SELFPAY ==
[2024-09-02 10:59] LABS: PSA,Total- Diagnostic 1.74 ng/mL (0.0-4.0)
== END | disposition home or self-care (01) ==
LOC: MFPLAB 09:09
PROVIDERS: PCP Family Medicine; Referring Provider Family Medicine; Visit Provider Family Medicine
DX: C61 Malignant neoplasm of prostate (principal)
CPT/HCPCS: 36415; 84153

== ENCOUNTER → 2024-10-27 | Outpatient (CLI) | payer MEDICARE, OTHER, SELFPAY ==
[2024-10-27 08:53] LABS: Anion Gap 12 (5-15); BUN 33 mg/dL (4-19); BUN/Creat Ratio 17.5 RATIO (10-20); Calcium 8.5 mg/dL (7.6-11.0); Carbon Dioxide 23.1 mmol/L (22.0-29.0); Chloride 111 mmol/L (96-108); Creatinine, Serum 1.89 mg/dL (0.70-1.20); EST Glomerular Filtration Rate 34 (>60); Glucose 162 mg/dL (70-99); Potassium 3.6 mmol/L (3.3-5.1); Sodium Level 146 mmol/L (133-145)
[2024-10-27 09:53] LABS: Protein, Urine (Random) 59.2 mg/dL (0.0-12.0); Protein:Creat Ratio 640 mg/g CRE (0-200)
== END | disposition home or self-care (01) ==
LOC: LAB 07:20
PROVIDERS: PCP Family Medicine; Referring Provider Internal Medicine Nephrology; Visit Provider Internal Medicine Nephrology
DX: N18.31 Chronic kidney disease, stage 3a (principal)
CPT/HCPCS: 36415; 80048; 82570; 84156

== ENCOUNTER → 2024-10-28 | Outpatient (CLI) | payer MEDICARE, OTHER, SELFPAY ==
[2024-10-28 09:35] LABS: PTHIN 49 pg/mL (11-61)
[2024-10-28 09:40] LABS: Hemoglobin A1c 7.2 % (<=5.6)
[2024-10-28 09:50] LABS: ALB/GLOB Ratio 1.7 RATIO (0.9-2.4); AST(SGOT) 19 U/L (<=37); Alanine Aminotransfer ALT/SGPT 18 U/L (<=46); Alkaline Phosphatase 69 U/L (40-129); Anion Gap 14 (5-15); BUN 30 mg/dL (4-19); BUN/Creat Ratio 16.5 RATIO (10-20); Calcium,Total 8.7 mg/dL (7.6-11.0); Carbon Dioxide 21.8 mmol/L (21.0-32.0); Chloride 111 mmol/L (98-108); Cholesterol 104 mg/dL (<=200); Creatinine, Serum 1.79 mg/dL (0.70-1.20); EST Glomerular Filtration Rate 36 (>60); Free T3 2.1 pg/mL (2.18-3.98); Globulin 2.3 g/dL (2.2-4.2); Glucose 83 mg/dL (70-99); High Density Lipoprotein 60 mg/dL; Low Density Lipoprotein Calc. 33 mg/dL; Potassium 3.5 mmol/L (3.3-5.1); Protein, Total 6.4 g/dL (5.9-8.4); Sodium Level 146 mmol/L (133-145); Total Bilirubin 0.26 mg/dL (0.00-1.30); Triglycerides 53 mg/dL; Very Low Density Lipoprotein 11 mg/dL (5-40); Vitamin D,25 Hydroxy 51.3 ng/mL (30-100); cholesterol:hdl ratio screen 1.73
[2024-10-28 10:49] LABS: Microalbumin:Creatinine Ratio 3581.6 mg/g CRE
== END | disposition home or self-care (01) ==
LOC: LAB 08:12
PROVIDERS: PCP Family Medicine; Referring Provider Internal Medicine Endocrinology, Diabetes & Metabolism; Visit Provider Internal Medicine Endocrinology, Diabetes & Metabolism
DX: E11.22 Type 2 diabetes mellitus with diabetic chronic kidney disease (principal); Z79.4 Long term (current) use of insulin; N18.30 Chronic kidney disease, stage 3 unspecified; E03.9 Hypothyroidism, unspecified; E55.9 Vitamin D deficiency, unspecified
CPT/HCPCS: 36415; 80053; 80061; 82043; 82306; 82570; 83036; 83970; 84439; 84443; 84481

== ENCOUNTER 2024-11-10 05:27 | Emergency (ER) | payer MEDICARE, OTHER, SELFPAY ==
[2024-11-10 05:31] VITALS: BP 158/70; PULSE 82; RESP 18; TEMP 37; O2SAT 95; BMI 27.8
--- NOTE | 2024-11-10 06:08 | EX.ED.DYSGE1 ---
HPI History of Present Illness Chief Complaint: General Illness Detail of Chief Complaint: Cough Informant: patient Narrative Narrative: Patient presents with cough and some mild shortness of breath that started 3 to 4 days ago. Cough mostly nonproductive. He said no fever. He has a history of COPD and obstructive sleep apnea. Last 2 nights he has had a sleep sitting up. Denies weight gain or leg edema. Denies sick contacts. Denies chest pain. [facility] Medical History Spinal stenosis at L4-L5 level CKD (chronic kidney disease) stage 3, GFR 30-59 ml/min Diabetes Kidney stones Kidney disease Former smoker Atrial fibrillation Irregular heart beat ICD (implantable cardioverter-defibrillator) in place Congestive heart failure (CHF) 65 years of age or older COVID-19 (06/01/21) Dizziness Wears dentures Wears glasses Wears hearing aid Insulin dependent diabetes mellitus Dietary restriction CPAP (continuous positive airway pressure) dependence COPD (chronic obstructive pulmonary disease) Cardiology follow-up encounter History of stress test History of echocardiogram Carotid stenosis, left Dark stools Chronic kidney disease (CKD) Bacterial endocarditis Postoperative atrial fibrillation Paroxysmal atrial fibrillation Elevated LFTs Ischemic cardiomyopathy Cardiac arrest with ventricular fibrillation (06/2015) Essential (primary) hypertension Chronic systolic (congestive) heart failure History of acute bacterial endocarditis Nonrheumatic mitral (valve) prolapse Hypokalemia 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 Left bundle branch block Primary idiopathic hypertrophic cardiomyopathy Night sweats Infection and inflammatory reaction due to other cardiac and vascular devices, implants and grafts, initial encounter Anemia Iron deficiency Bilateral carotid bruits Thalamic mass Infectious endocarditis Type II diabetes mellitus Hypothyroidism HLD (hyperlipidemia) Home Medications ?Medication ?Instructions ?Recorded ?Last Taken ?Type cholecalciferol (vitamin D3) 25 1,000 unit PO BID supplement 05/20/18 03/20/20 19:00 History mcg (1,000 unit) capsule 1000 units ferrous gluconate 324 mg (37.5 mg 325 mg PO DAILY iron supplement 05/20/18 03/20/20 19:00 History iron) tablet 325 mg insulin aspart U-100 100 unit/mL 5 unit subcut DINNER DM 05/20/18 03/20/20 18:00 History (3 mL) subcutaneous pen 12 units insulin aspart U-100 100 unit/mL 10 units subcut BREAKFAST DM 05/20/18 03/20/20 08:00 History (3 mL) subcutaneous pen 12 units multivitamin 1 each PO DAILY supplement 05/20/18 03/20/20 08:00 History 1 each apixaban 2.5 mg tablet (Eliquis) 2.5 mg PO BID blood thinner 06/29/20 04/02/22 History Handicap Parking Placard #1 ea 08/25/20 Unknown Rx albuterol sulfate 90 mcg/actuation 2 puff inhalation Q4H PRN fill as 11/22/20 Unknown Rx aerosol inhaler courtesy until 's office open #18 grams insulin glargine 100 unit/mL 10 unit SQ QHS DM 11/24/20 Unknown History subcutaneous solution lactobacillus comb no.10 20 1 each PO DAILY supplement 11/24/20 Unknown History billion cell capsule ascorbic acid (vitamin C) 1,000 mg 1,000 mg PO DAILY supplement 12/29/20 Unknown History tablet fluticasone propionate 50 2 spray intranasal DAILY congestion 12/29/20 Unknown History mcg/actuation nasal spray,suspension (Flonase Allergy Relief) albuterol sulfate 2.5 mg/3 mL 2.5 mg continuous nebulization QHS 01/30/21 Unknown History (0.083 %) solution for nebulization breathing empagliflozin 25 mg tablet 12.5 mg PO DAILY 03/24/22 Unknown History (Jardiance) guaifenesin 600 mg tablet, 600 mg PO BID 04/02/22 04/02/22 History extended release 12 hr (Mucinex) azelastine 137 mcg (0.1 %) nasal 1 spray intranasal QHS 05/22/23 Unknown History spray bevacizumab 25 mg/mL intravenous 12/25/23 Unknown History solution (Avastin) levothyroxine 125 mcg tablet 125 mcg PO DAILY 12/25/23 Unknown History tiotropium 2.5 mcg-olodaterol 2.5 2 puff inhalation DAILY 12/25/23 Unknown History mcg/actuation mist for inhalation (Stiolto Respimat) vitamins A,C,P-miah-fegdse 2,148 2 tab PO BID 12/25/23 Unknown History mcg-113 mg-45 mg-17.4 mg tablet (Eye Multivitamin) mometasone 200 mcg/actuation HFA 2 puff inhalation DAILY 03/19/24 Unknown History aerosol inhaler (Asmanex HFA) quercetin 500 mg capsule mg PO BID 03/19/24 Unknown History atorvastatin 20 mg tablet 20 mg PO QHS #90 tabs 09/01/24 Unknown Rx carvedilol 25 mg tablet 25 mg PO BID Patient going out of 09/17/24 Unknown Rx state for 3 months #180 tabs coffee extract 100 mg-phosphatidyl cap PO 09/17/24 Unknown History serine 100 mg capsule (Neuriva Original) diltiazem HCl 120 mg 120 mg PO BID Patient going out of 09/17/24 Unknown Rx capsule,extended release 24 hr state for 3 months #180 caps (Cardizem CD) omeprazole 40 mg capsule,delayed 40 mg PO DAILY Patient going out 09/17/24 Unknown Rx release of state for 3 months #90 caps prednisone 20 mg tablet 20 mg PO BID #10 tabs 11/10/24 Unknown Rx Allergy/AdvReac Type Severity Reaction Status Date / Time latex Allergy Other Verified 11/10/24 05:28 LAURA Inhibitors AdvReac Intermediate cough Verified 11/10/24 05:28 enalapril AdvReac Intermediate Shortness Verified 11/10/24 05:28 of breath adhesive tape AdvReac rash Verified 11/10/24 05:28 warfarin (From Coumadin) AdvReac bleeding Verified 11/10/24 05:28 under the skin Family History Father , age 47 from peritonitis Peritonitis Mother , age 93 CVA (cerebral vascular accident) several TIA's Surgical History History of appendectomy History of partial amputation of left hand Hx of bilateral cataract extraction Hx of prostatectomy Hx of cholecystectomy Abnormal fractional flow reserve (FFR) on cardiac catheterization (02/2017) History of cardioversion (04/2017) History of implantable cardiac defibrillator (ICD) (03/17/22) H/O coronary artery bypass surgery (04/27/17) History of left heart catheterization ICD (implantable cardioverter-defibrillator) infection Social History household members: spouse Smoking Status: Former smoker how long ago did patient quit smoking: Quit ~ 50 years prior, prior to quitting up to 4 ppd since 9/10 years old. alcohol intake: never substance use type: does not use caffeine: No what type of physical activity do you participate in: walking frequency: 5-6 times per week duration: 15-30 minutes/day seatbelt use: always do you feel safe at home: Yes ROS ROS ED Review of Systems ROS Unobtainable: other Constitutional Constitutional ED: Reports lethargy; Denies chills, fever(s), sweats or weight loss Eyes Eyes: Denies blurry vision, change in vision or diplopia ENT ENT ED: Denies rhinorrhea or sore throat Cardiovascular Cardiovascular: Denies chest pain, orthopnea or racing heartbeat Respiratory/Chest Respiratory/Chest: Reports cough, dyspnea and dyspnea on exertion; Denies orthopnea or sputum Gastrointestinal Gastrointestinal: Denies abdominal pain, diarrhea, nausea or vomiting Genitourinary Genitourinary ED: Denies dysuria, hematuria or urinary frequency Musculoskeletal Musculoskeletal: Denies arthralgias, back pain, myalgias or neck pain Integumentary Denies abscess, Abrasions or rash Neurologic Neurologic: Denies headache(s) or weakness Psychiatric Psychiatric: Denies anxiety, depression or suicidal thoughts Endocrine Endocrinology: Denies polydipsia, polyphagia or polyuria Hematologic/Lymphatic Hematologic/Lymphatic: Denies easy bleeding, easy bruising or lymphadenopathy Allergic/Immunologic Allergic/Immunologic ED: Denies mouth swelling, tongue swelling or urticaria EXAM Physical Exam Const Vital Signs: 11/10/24 05:31 11/10/24 05:31 11/10/24 06:30 Temperature 98.6 F Temperature Source Oral Pulse Rate 82 Respiratory Rate 18 Respiratory Effort Normal Respiratory Pattern Normal Blood Pressure 158/70 H Blood Pressure Mean 99 Pulse Ox 95 95 Oxygen Delivery Method Room Air Room Air 11/10/24 06:30 Temperature Temperature Source Pulse Rate 85 Respiratory Rate 16 Respiratory Effort Respiratory Pattern Blood Pressure Blood Pressure Mean Pulse Ox Oxygen Delivery Method Positive well nourished and well developed General Appearance ED: well developed and NAD HEENT Reports TM's clear and moist mucous membranes normocephalic and atraumatic; Negative for trauma or tenderness Tympanic Membrane ED: Yes TM's clear Eyes PERRL and EOMs intact bilaterally General Eye ED: Negative for pale conjunctiva or scleral icterus Neck no lymphadenopathy, supple and no JVD General: Negative for tenderness Chest Wall inspection of chest normal and palpation of chest normal Chest: Negative for tenderness Resp normal respiratory effort and clear to auscultation bilaterally Resp Narrative: Good aeration bilaterally. Few expiratory wheezes noted bilaterally. No significant tachypnea. No shopfitter muscle use or retractions. Effort and Inspection: Negative for respiratory distress or pain with movement Auscultation: wheezes; Negative for rhonchi or diminished lung sounds Cardio regular rate, regular rhythm, S1 normal heart sound, S2 normal heart sound and no murmurs Peripheral Pulses: pulses 2+ throughout GI normal to inspection, nondistended, normoactive bowel sounds, soft to palpation, non-tender, non-distended and no masses Back/Spine no CVA tenderness and no thoracic nor lumbar tenderness Extremity normal to inspection General Extremety ED: Negative for edema General Extremity: Negative for edema Neuro oriented x3, CN's II-XII intact bilaterally, no sensory deficits noted and gait normal Sensorium / Orientation: awake, alert, oriented to person, oriented to place and oriented to time Motor Exam: strength 5/5 throughout and strength abnormal Psych mental status grossly normal Skin no rashes or lesions noted and no wounds MDM MDM MDM Narrative Medical decision making narrative: Patient presents with cough x 3 to 4 days. Vital stable and clinically looks well. In the differential would be viral infection versus COPD exacerbation versus pneumonia. Patient was given DuoNeb aerosol. Chest x-ray obtained. COVID flu and RSV testing obtained. Care of patient turned over to morning physician awaiting x-ray result and testing for COVID flu and RSV. Lab Data Attestation: I reviewed the patient's lab results. Radiography Diagnostic Testin view chest x-ray obtained interpreted by myself as no evidence of infiltrate or pneumothorax or acute disease process. And some chronic interstitial changes. Discharge Plan Triage Chief Complaint: General Illness ED Provider: Gavi Crandall Dx/Rx/DC Orders Prescriptions: New prednisone 20 mg tablet 20 mg PO BID Qty: 10 0RF No Action Eliquis 2.5 mg tablet 2.5 mg PO BID Patient Comments: pt states per Dr Antony's instructions, will stop Eliquis 48hrs prior to surgery on 04/06/21 fluticasone propionate [Flonase Allergy Relief] 50 mcg/actuation spray,suspension 2 spray intranasal DAILY Rx Instructions: administer into each nostril Asmanex HFA 200 mcg/actuation HFA aerosol inhaler 2 puff inhalation DAILY Jardiance 25 mg tablet 12.5 mg PO DAILY Rx Instructions: take 1/2 tab daily quercetin 500 mg capsule PO BID Neuriva Original 100-100 mg capsule PO omeprazole 40 mg capsule,delayed release(DR/EC) 40 mg PO DAILY Qty: 90 3RF diltiazem HCl [Cardizem CD] 120 mg capsule,extended release 24hr 120 mg PO BID Qty: 180 3RF carvedilol 25 mg tablet 25 mg PO BID Qty: 180 3RF multivitamin 1 EACH tablet 1 each PO DAILY cholecalciferol (vitamin D3) 1,000 UNIT capsule 1,000 unit PO BID insulin aspart U-100 100 UNITS/ML insulin pen 10 units SC BREAKFAST Rx Instructions: SSI insulin aspart U-100 100 UNITS/ML insulin pen 5 unit SC DINNER Rx Instructions: SSI ferrous gluconate 325 MG tablet 325 mg PO DAILY ascorbic acid (vitamin C) 1,000 mg tablet 1,000 mg PO DAILY insulin glargine 100 UNIT/ML solution 10 unit SQ QHS Rx Instructions: SSI lactobacillus comb no.10 1 EACH capsule 1 each PO DAILY albuterol sulfate 2.5 mg /3 mL (0.083 %) solution for nebulization 2.5 mg continuous nebulization QHS Patient Comments: USE 1 VIAL IN NEBULIZER AT BEDTIME guaifenesin [Mucinex] 600 mg Tablet Extended Release 12hr 600 mg PO BID azelastine 137 mcg (0.1 %) aerosol,spray 1 spray INTRANASAL QHS Patient Comments: USE 1 TO 2 SPRAY(S) IN EACH NOSTRIL TWICE DAILY Stiolto Respimat 2.5-2.5 mcg/actuation mist 2 puff inhalation DAILY levothyroxine 125 mcg tablet 125 mcg PO DAILY Eye Multivitamin 2,148 mcg-113 mg-45 mg-17.4mg tablet 2 tab PO BID Rx Instructions: administer with AM and PM meals Avastin 25 mg/mL solution (DME) Handicap Parking Placard See Rx Instructions .Route .MEDSUPPLY Qty: 1 0RF Rx Instructions: As directed albuterol sulfate 90 mcg/actuation HFA aerosol inhaler 2 puff INHALATION Q4H PRN (Reason: fill as courtesy until 's office open) Qty: 18 0RF atorvastatin 20 mg tablet 20 mg PO QHS Qty: 90 3RF Primary Care Provider: Katherin Edge Referrals: Katherin Edge MD [Primary Care Provider] - Print Language: Irish
--- NOTE | 2024-11-10 06:20 | RAD_ITS ---
PROCEDURE: CHEST 1 VIEW (PORTABLE) (RADCXPA_P), 11/10/2024 REASON FOR EXAM: COUGH TECHNIQUE: A single portable AP view of the chest was obtained. COMPARISON: 01/24/2022 FINDINGS: Heart: Similar cardiomegaly, left chest wall subcutaneous defibrillator, and left atrial appendage clip. Mediastinum: Sternotomy. Central vascular prominence. Lungs/pleura: Similar perihilar and bibasilar interstitial prominence. No convincing focal consolidation. No sizeable pleural effusion or visible pneumothorax. Bones: Unremarkable. Lines and support devices: None. RAD/Chest 1 View (Portable) IMPRESSION: 1. Cardiomegaly with vascular prominence and mild interstitial prominence which could be chronic or reflect mild interstitial edema. The appearance is similar to 01/24/2022. 2. Additional description as above. Reading Location: [id number]
[2024-11-10] MEDS: Ipratropium/Albuterol Sulfate 3 ML AMPUL.NEB INHALATION (06:26)
[2024-11-10 06:30] VITALS: PULSE 85; RESP 16; O2SAT 95
[2024-11-10] MEDS: predniSONE 20 MG Tablet 40 MG PO (07:14)
[2024-11-10 07:27] VITALS: BP 176/72; PULSE 89; RESP 18; O2SAT 96
[2024-11-10 07:50] VITALS: O2SAT 96
[2024-11-10 08:24] VITALS: PULSE 88; RESP 18; O2SAT 94
== END 2024-11-10 08:25 | disposition home or self-care (01) ==
PROVIDERS: Emergency Provider Emergency Medicine; PCP Family Medicine; Visit Provider Emergency Medicine
DX: J10.1 Influenza due to other identified influenza virus with other respiratory manifestations (principal); I50.22 Chronic systolic (congestive) heart failure; I13.0 Hypertensive heart and chronic kidney disease with heart failure and stage 1 through stage 4 chronic kidney disease, or unspecified chronic kidney disease; J44.9 Chronic obstructive pulmonary disease, unspecified; Z79.4 Long term (current) use of insulin; E11.22 Type 2 diabetes mellitus with diabetic chronic kidney disease; Z87.891 Personal history of nicotine dependence; I25.10 Atherosclerotic heart disease of native coronary artery without angina pectoris; I25.5 Ischemic cardiomyopathy; E78.5 Hyperlipidemia, unspecified; G47.33 Obstructive sleep apnea (adult) (pediatric); Z95.810 Presence of automatic (implantable) cardiac defibrillator; Z86.16 Personal history of COVID-19; Z99.89 Dependence on other enabling machines and devices; Z90.49 Acquired absence of other specified parts of digestive tract; Z95.1 Presence of aortocoronary bypass graft
CPT/HCPCS: 71045; 87631; 94640; 99282

== ENCOUNTER → 2024-11-19 | Outpatient (CLI) | payer MEDICARE, OTHER, SELFPAY ==
--- NOTE | 2024-11-19 15:38 | RAD_ITS ---
EXAM: X-ray chest PA and lateral CLINICAL HISTORY: Productive cough COMPARISON: 11/10/2024 TECHNIQUE: PA and lateral views of the chest, 2 PA views to include the entire chest, 3 total images FINDINGS: Mid to lower zone increased perihilar markings may represent mild pulmonary edema. Cardiac and mediastinal contours appear unchanged. Status post median sternotomy with single lead AICD and left atrial closure device again noted. No focal consolidation or pleural effusion. Status post cholecystectomy. Aortic atherosclerotic calcifications noted. RAD/Chest PA and Lateral IMPRESSION: Mid to lower zone bilateral increased perihilar markings may represent mild pul monary edema, clinically correlate. Reading Location: [id number]
== END | disposition home or self-care (01) ==
PROVIDERS: PCP Family Medicine; Referring Provider Family Medicine; Visit Provider Family Medicine
DX: R05.8 Other specified cough (principal)
CPT/HCPCS: 71046

== ENCOUNTER → 2024-11-26 | Outpatient (CLI) | payer MEDICARE, OTHER, SELFPAY ==
[2024-11-26 13:20] LABS: Anion Gap 11 (5-15); BUN 46 mg/dL (4-19); BUN/Creat Ratio 19.4 RATIO (10-20); Carbon Dioxide 24.7 mmol/L (21.0-32.0); Chloride 107 mmol/L (98-108); Creatinine, Serum 2.37 mg/dL (0.70-1.20); EST Glomerular Filtration Rate 26 (>60); Glucose 125 mg/dL (70-99); Potassium 4.4 mmol/L (3.3-5.1); Sodium Level 143 mmol/L (133-145)
== END | disposition home or self-care (01) ==
LOC: LAB 10:33
PROVIDERS: PCP Family Medicine; Referring Provider Nurse Practitioner Family; Visit Provider Nurse Practitioner Family
DX: I12.9 Hypertensive chronic kidney disease with stage 1 through stage 4 chronic kidney disease, or unspecified chronic kidney disease (principal); I48.0 Paroxysmal atrial fibrillation; N18.9 Chronic kidney disease, unspecified; I25.10 Atherosclerotic heart disease of native coronary artery without angina pectoris
CPT/HCPCS: 36415; 80048

== ENCOUNTER → 2024-12-01 | Outpatient (CLI) | payer MEDICARE, OTHER, SELFPAY ==
[2024-12-01 11:04] LABS: Anion Gap 11 (5-15); BUN 29 mg/dL (4-19); BUN/Creat Ratio 17.3 RATIO (10-20); Calcium,Total 8.2 mg/dL (7.6-11.0); Carbon Dioxide 24.1 mmol/L (21.0-32.0); Chloride 108 mmol/L (98-108); EST Glomerular Filtration Rate 39 (>60); Glucose 96 mg/dL (70-99); Potassium 3.9 mmol/L (3.3-5.1); Sodium Level 143 mmol/L (133-145)
== END | disposition home or self-care (01) ==
PROVIDERS: PCP Family Medicine; Referring Provider Nurse Practitioner Gerontology; Visit Provider Nurse Practitioner Gerontology
DX: I13.0 Hypertensive heart and chronic kidney disease with heart failure and stage 1 through stage 4 chronic kidney disease, or unspecified chronic kidney disease (principal); I50.22 Chronic systolic (congestive) heart failure; N18.9 Chronic kidney disease, unspecified; Z95.1 Presence of aortocoronary bypass graft
CPT/HCPCS: 36415; 80048

== ENCOUNTER → 2024-12-15 | Outpatient (CLI) | payer MEDICARE, OTHER, SELFPAY ==
--- NOTE | 2024-12-15 15:31 | VDUE_ITS ---
Reason For Study Reason For Study: Swelling Right Proximal Left Proximal Right jugular vein is spontaneous, widely patent, Left subclavian vein is spontaneous, widely patent, phasic, with no intraluminal echogenicity noted. phasic, with no intraluminal echogenicity noted. Right subclavian vein is spontaneous, widely patent, phasic, with no intraluminal echogenicity noted. Right Lower Arm Right radial vein is compressible. Right ulnar vein is compressible. Right Arm Right axillary vein is spontaneous, patent, phasic, competent, compressible and demonstrates augmentation. Right brachial vein is compressible. Right cephalic vein is compressible. Right basilic vein is compressible. Procedure This was a unilateral right upper extremity venous doppler examination. Exam performed in department. A preliminary report was called and/or faxed to Katherin Edge MD.
== END | disposition home or self-care (01) ==
LOC: CVS 15:28
PROVIDERS: PCP Family Medicine; Referring Provider Family Medicine; Visit Provider Family Medicine
DX: M79.89 Other specified soft tissue disorders (principal)
CPT/HCPCS: 93971

== ENCOUNTER → 2025-02-25 | Outpatient (CLI) | payer MEDICARE, OTHER, SELFPAY ==
[2025-02-25 13:46] LABS: Anion Gap 13 (5-15); BUN 31 mg/dL (4-19); BUN/Creat Ratio 16.8 RATIO (10-20); Calcium,Total 9.1 mg/dL (7.6-11.0); Carbon Dioxide 26.2 mmol/L (21.0-32.0); Chloride 105 mmol/L (98-108); Glucose 111 mg/dL (70-99); Potassium 3.5 mmol/L (3.3-5.1)
== END | disposition home or self-care (01) ==
LOC: LAB 11:20
PROVIDERS: PCP Family Medicine; Referring Provider Internal Medicine Endocrinology, Diabetes & Metabolism; Visit Provider Internal Medicine Endocrinology, Diabetes & Metabolism
DX: E11.9 Type 2 diabetes mellitus without complications (principal)
CPT/HCPCS: 36415; 80048

== ENCOUNTER → 2025-04-21 | Outpatient (CLI) | payer MEDICARE, OTHER, SELFPAY ==
[2025-04-21 12:28] LABS: Hematocrit 36.5 % (40-54); Hemoglobin 11.6 g/dL (13.0-16.5); Mean Corp Hgb Conc 31.8 g/dL (32-36); Mean Corpuscular Volume 93.6 fL (80-94); Mean Platelet Vol. 9.5 fl (6.2-12.0); Platelet Count 174 K/mm3 (150-450); RBC Distribution Width CV 14.0 % (11.6-14.6); RBC Distribution Width SD 48.1 fl (35.1-43.9); Red Blood Count 3.90 M/mm3 (4.6-6.2); White Blood Count 7.8 K/mm3 (4.4-11.0)
[2025-04-21 13:11] LABS: Ferritin 133 ng/mL (37-417); Iron 35 ug/dL (65-175); Iron Binding Capacity,Total 246 ug/dL (250-450); Iron Binding Capacity,Unsat 211 ug/dL (228-428); Vitamin B12 453 pg/mL (180-914); Vitamin D,25 Hydroxy 59.4 ng/mL (30-100)
== END | disposition home or self-care (01) ==
LOC: MFPLAB 11:27
PROVIDERS: PCP Family Medicine; Referring Provider Family Medicine; Visit Provider Family Medicine
DX: D64.9 Anemia, unspecified (principal); E11.9 Type 2 diabetes mellitus without complications; R53.83 Other fatigue
CPT/HCPCS: 36415; 82306; 82607; 82728; 83036; 83540; 83550; 84443; 85027

== ENCOUNTER → 2025-04-28 | Outpatient (CLI) | payer MEDICARE, OTHER, SELFPAY ==
[2025-04-28 10:50] LABS: Creatinine, Urine (random) 70.50 mg/dL (39.00-259.00); Protein, Urine (Random) 28.2 mg/dL (0.0-12.0); Protein:Creat Ratio 400 mg/g CRE (0-200)
[2025-04-28 11:25] LABS: Anion Gap 13 (5-15); BUN 27 mg/dL (4-19); BUN/Creat Ratio 14.5 RATIO (10-20); Calcium,Total 9.4 mg/dL (7.6-11.0); Carbon Dioxide 21.4 mmol/L (21.0-32.0); Chloride 110 mmol/L (98-108); Glucose 71 mg/dL (70-99); Potassium 3.6 mmol/L (3.3-5.1)
== END | disposition home or self-care (01) ==
LOC: LAB 07:46
PROVIDERS: PCP Family Medicine; Referring Provider Internal Medicine Nephrology; Visit Provider Internal Medicine Nephrology
DX: N18.31 Chronic kidney disease, stage 3a (principal)
CPT/HCPCS: 36415; 80048; 82570; 84156

== ENCOUNTER → 2025-05-20 | Outpatient (CLI) | payer MEDICARE, OTHER, SELFPAY ==
--- NOTE | 2025-05-20 07:34 | ECHOCS_ITS ---
Reason For Study Reason For Study: CONGESTIVE HEART FAILURE Procedure This was a 2D Doppler, Color Flow transthoracic echocardiogram. The study was technically difficult. Contrast injection was performed. Exam performed in department. Left Ventricle Normal LV size. Moderate concentric left ventricular hypertrophy. Stage 1 diastolic dysfunction. The left ventricular ejection fraction is 50 %. No regional wall motion abnormalities noted. Right Ventricle Normal RV size. ICD or pacer leads identified within the right ventricle. Normal systolic function. Atria Normal left atrium. Normal right atrium. Mitral Valve Normal mitral valve. Tricuspid Valve Normal tricuspid valve. Mild (1+) tricuspid valve insufficiency. Pulmonary artery systolic pressure is 28 mmHg. Aortic Valve Trisinus/trileaflet aortic valve. Mild focal aortic valve thickening. Trivial aortic valve insufficiency. Pulmonic Valve Normal pulmonic valve. Mild (1+) pulmonic valve insufficiency. Great Vessels Normal aortic root. The pulmonary artery is normal size. Inferior vena cava collapse with respiration. Pericardium/Pleural No pericardial effusion. Medication 22 gauge I.V. with prn adaptor inserted into right arm. Diluted definity 2ml given slow IV push to enhance endocardial definition. MMode/2D Measurements & Calculations LVIDd: 4.7 cm IVSd: 1.4 cm LVOT diam: 2.0 cm LVIDs: 3.4 cm LVPWd: 1.3 cm RVDd: 4.0 cm FS: 26.6 % LVOT area: 3.1 cm2 asc Aorta Diam: 3.3 cm LAV(MOD-bp): 118.8 ml LVAd ap4: 43.3 cm2 LAV(MOD-bp) Indexed: 54.7 ml/m2 LVLd ap4: 8.6 cm LAV(MOD-sp2): 115.8 ml EDV(MOD-sp4): 176.1 ml LAV(MOD-sp4): 122.5 ml EDV(sp4-el): 184.6 ml LVAs ap4: 33.6 cm2 LVLs ap4: 7.8 cm ESV(MOD-sp4): 118.4 ml ESV(sp4-el): 122.4 ml EF(MOD-sp4): 32.8 % EF(sp4-el): 33.7 % LVAd ap2: 43.4 cm2 SV(MOD-sp4): 57.7 ml SV(MOD-sp2): 70.8 ml LVLd ap2: 8.9 cm SI(MOD-sp4): 26.6 ml/m2 SI(MOD-sp2): 32.6 ml/m2 EDV(MOD-sp2): 175.1 ml EDV(sp2-el): 179.7 ml LVAs ap2: 31.7 cm2 LVLs ap2: 8.1 cm ESV(MOD-sp2): 104.3 ml ESV(sp2-el): 106.1 ml EF(MOD-sp2): 40.4 % SV(sp4-el): 62.2 ml Ao sinus diam: 3.[address] Junction: 2.8 cm LA dimension(2D): 5.2 cm LA A4 area: 33.3 cm2 RA A4 area: 18.1 cm2 TAPSE: 1.7 cm Time Measurements MV dec time: 0.20 sec Doppler Measurements & Calculations MV E max yunier: 71.8 cm/sec Lat Peak E' Yunier: 8.2 cm/sec Med Peak E' Yunier: 6.4 cm/sec MV A max yunier: 88.6 cm/sec E/E' lat: 8.8 E/E' med: 11.3 MV E/A: 0.81 MV dec slope: 363.8 cm/sec2 Ao V2 max: 163.5 cm/sec AI max yunier: 340.2 cm/sec Ao max P.7 mmHg AI max P.3 mmHg Ao V2 mean: 116.5 cm/sec AI dec slope: 154.5 cm/sec2 Ao mean P.2 mmHg AI P1/2t: 645.0 msec Ao V2 VTI: 37.3 cm AV (velocity ratio): 0.70 SUSANA(I,D): 2.2 cm2 SUSANA(V,D): 2.3 cm2 LV V1 max: 119.2 cm/sec SV(LVOT): 82.5 ml PA V2 max: 116.7 cm/sec LV V1 max P.7 mmHg LV V1 mean P.3 mmHg LV V1 mean: 83.6 cm/sec LV V1 VTI: 26.3 cm PI end-d yunier: 95.5 cm/sec TR max yunier: 246.4 cm/sec TR max P.3 mmHg ECHO/Echo Complete W/ Contrast Interpretation Summary Normal LV size. Moderate concentric left ventricular hypertrophy. Stage 1 diastolic dysfunction. The left ventricular ejection fraction is 50 %. Pulmonary artery systolic pressure is 28 mmHg. Contrast injection was performed. Ordering Physician: Katherin Edge Referring Physician: Katherin Edge Performed By: Dacia Lenz RDCS
--- OUTSIDE RECORDS SUMMARY | 2025-05-20 07:41 | XMS RPT_ITS | CCD ---
Author Organization [facility] Care Team Providers Care Shot Coat Tender Name Role Phone JAISON Chiang, Bhavna Lucero Unavailable ESTRELLITA SOTO Unavailable Unavailable Corin Hernandez Unavailable Unavailable BUNNY VERDIN Unavailable Unavailable EM SUAREZ Unavailable Unavailable EM SUAREZ Unavailable Unavailable Corin Hernandez Unavailable Unavailable Kumar SPARKS, Liam Larios Unavailable Corin Hernandez Primary Care Provider Bunyn Verdin Unavailable Shu Gotti Unavailable Estrellita Benavidez Unavailable Aggie DUNN Marj Roque Unavailable Barak SPARKS, Jayy Unavailable Estrellita Soto MD Unavailable Dr. Corin Hernandez Primary Care Provider Dr. Corin Hernandez Referring Provider ASA Boswell Attending Provider Dr. Bunny Verdin Attending Provider Dr. Bunny Verdin Referring Provider Dr. Bull Tee Emergency Provider [phone] Dr. Kalpana Elam Admit Provider Dr. Kalpana Elam Attending Provider Dr. Kalpana Elam Other Provider Dr. Heidi Razo Other Provider James CESPEDES, CORINNE Lopez Attending Provider James WRECKER OPERATOR, WRECKER OPERATOR-C Other Provider Dr. Wendy Goodman Other Provider Dr. Heidi Razo Attending Provider Dr. Corin Hernandez Primary Care Provider Dr. Corin Hernandez Referring Provider ASA Boswell Attending Provider Glo Kowalski Attending Provider Unavailable Ana María SPARKS, Shu Unavailable Dr. Corin Hernandez Primary Care Provider Dr. Bunny Verdin Attending Provider Glo Kowalski Attending Provider Unavailable Dr. Kareem Fernandes Emergency Provider Dr. Rachna Mckenzie Admit Provider Unavailable Dr. Rachna Mckenzie Attending Provider Unavailable Dr. Rachna Mckenzie Other Provider Unavailable Dr. Estrellita Antony Attending Provider Dr. Corin Hernandez Referring Provider ASA Boswell Attending Provider Dr. Corin Hernandez Primary Care Provider Dr. Bunny Verdin Attending Provider Dr. Rachna Mckenzie Referring Provider Unavailable Glo Kowalski Attending Provider Unavailable Dr. Bunny Verdin Referring Provider ASA Boswell Attending Provider Dr. Corin Hernandez Primary Care Provider Dr. Corin Hernandez Referring Provider Dr. Bunny Verdin Attending Provider Dr. Bunny Verdin Referring Provider Glo Kowalski Attending Provider Unavailable Dr. Corin Hernandez Primary Care Provider Dr. Corin Hernandez Referring Provider ASA Boswell Attending Provider Glo Kowalski Attending Provider Unavailable Lambert, Dr. Hollis Attending Provider Dr. Bunny Verdin Referring Provider [phone] Corin Hernandez Primary Care Provider Dr. Corin Hernandez Primary Care Provider Dr. Corin Hernandez Referring Provider Roof WRECKER OPERATOR, WRECKER OPERATOR-Jose Arenas Attending Provider Dr. Corin Hernandez Primary Care Provider David, Dr. Corin Lloyd Referring Provider Roof WRECKER OPERATOR, WRECKER OPERATOR-C Edward Arenas Attending Provider Glo Kowalski Attending Provider Unavailable ASA Boswell Attending Provider Dr. Dave Ruiz Attending Provider Dr. Corin Hernandez Primary Care Provider Dr. Bunny Verdin Attending Provider [phone] Bunny Verdin Referring Provider [phone] Corin Hernandez Primary Care Provider Dr. Corin Hernandez Referring Provider Glo Kowalski Attending Provider Unavailable LambertDr. Bunny duran Attending Provider Dr. Dave Ruiz Attending Provider Dr. Corin Hernandez Primary Care Provider Dr. Corin Hernandez Referring Provider Dr. Dave Ruiz Attending Provider Dr. Bunny Verdin Attending Provider Dr. Bunny Verdin Referring Provider Estrellita Benavidez Unavailable Marj Marcial CNP Unavailable Barak SPARKS, Jayy Unavailable Deyvi SPARKS, Estrellita Gomes Unavailable Bunny Verdin MD Unavailable Katherin Soriano MD Primary Care Provider Maeve SPARKS, Maribeth R Unavailable Katherin Soriano MD Primary Care Provider Lambert SPARKS, Dr. Hollis Attending Provider Lambert SPARKS, Dr. Hollis Referring Provider Katherin Soriano MD Attending Provider Katherin Soriano MD Referring Provider Bhavna Boswell Attending Provider Maeve SPARKS, Dr. Martinez Attending Provider Maeve SPARKS, Dr. Martinez Referring Provider Ana María SPARKS, Dr. Shu Manuel Attending Provide r Dr. Shu Gotti MD Referring Provide r Dr. Romeo Medeiros DO Emergency Provider Dr. Romeo Medeiros DO Attending Provider Cecily SPARKS, Dr. Estrellita Rosales Other Provider Katherin Soriano MD Primary Care Provider Dr. Bunny Verdin MD Attending Provider Dr. Bunny Verdin MD Referring Provider Alonzo CESPEDES-Edward Garcia Attending Provider Edward Oliva Referring Provider Daniel CESPEDES-Kimmy Garcia Attending Provider Kimmy Holguin Referring Provider Abi SPARKS, Dr. Branch Attending Provider Christie MD, Chalon Primary Care Provider Christie SPARKS, Katherin Attending Provider Christie SPARKS, Katherin Referring Provider [phone] Miki SPARKS, Dr. Cole Attending Provider Christie SPARKS, Chalon Primary Care Provider Ana María SPARKS, Dr. Shu Manuel Attending Provide r Ana María SPARKS, Dr. Shu Manuel Referring Provide r CHRISTIE, CHALON Referring Unavailable CHRISTIE, CHALON Primary Care Unavailable ESTRELLITA SOTO Attending Unavailable Christie SPARKS, Chalon Primary Care Provider Christie SPARKS, Katherin Referring Provider Lambert SPARKS, Dr. Hollis Attending Provider [phone] Lambert SPARKS, Dr. Hollis Referring Provider [phone] Christie SPARKS, Katherin Attending Provider [phone] Maeve SPARKS, Dr. Martinez Attending Provider [phone] Maeve SPARKS, Dr. Martinez Referring Provider [phone] Christie, Chalon Referring Unavailable Douglas Livingston Attending Unavailable Christie, Chalon Primary Care Unavailable Jose Carlos Alex Attending Unavailable Christie, Chalon Referring Unavailable Christie, Chalon Primary Care Unavailable Bunny Verdin Attending Unavailable Bunny Verdin Referring Unavailable Christie, Chalon Primary Care Unavailable Christie, Chalon Primary Care Unavailable Raghunathan, Shu Na Attending Unavaila ble Raghunathan, Shu Na Referring Unavaila ble Michelle Mcfarlane Referring Unavailable Michelle Mcfarlane Attending Unavailable Christie, Chalon Primary Care Unavailable Raghunathan, Shu Na Referring Unavaila ble Raghunathan, Shu Na Attending Unavaila ble Christie, Chalon Primary Care Unavailable Roof WRECKER OPERATOR, Edward H Referring Unavailable Roof WRECKER OPERATOR, Edward Arenas Attending Unavailable Christie, Chalon Primary Care Unavailable Christie, Chalon Primary Care Unavailable Daniel WRECKER OPERATOR, Kimmy Referring Unavailable Daniel WRECKER OPERATOR, Kimmy Attending Unavailable Christie, Chalon Primary Care Unavailable Ezra WRECKER OPERATOR, Sruthi Referring Unavailable Douglas Livingston Attending Unavailable Christie, Chalon Referring Unavailable Christie, Chalon Primary Care Unavailable Christie, Chalon Attending Unavailable SibiliaEstrellita V Consulting Unavailable Christie, Chalon Primary Care Unavailable Christie, Chalon Referring Unavailable Christie, Chalon Attending Unavailable Christie, Chalon Primary Care Unavailable Maeve, Jayaprakas Referring Unavailable Maeve, Jayaprakas Attending Unavailable Christie, Chalon Referring Unavailable Christie, Chalon Primary Care Unavailable Christie, Chalon Attending Unavailable Christie, Chalon Referring Unavailable Christie, Chalon Attending Unavailable Christie, Chalon Primary Care Unavailable Raghunathan, Shu Na Attending Unavaila ble Christie, Chalon Primary Care Unavailable Raghunathan, Shu Na Referring Unavaila ble Christie, Chalon Primary Care Unavailable Christie, Chalon Referring Unavailable Christie, Chalon Attending Unavailable Aggie, Marj Attending Unavailable Christie, Chalon Primary Care Unavailable Christie, Chalon Primary Care Unavailable Sibilia, Estrellita Rosales Attending Unavailable Mala, Romeo Attending Unavailable Christie, Chalon Primary Care Unavailable Christie, Chalon Primary Care Unavailable Lambert, [place] Referring Unavailable Lambert, Bunny Attending Unavailable Christie, Chalon Referring Unavailable Christie, Chalon Primary Care Unavailable Christie, Chalon Attending Unavailable Christie, Chalon Primary Care Unavailable Lambert, [place] Referring Unavailable Lambert, [place] Attending Unavailable Chrsitie, Chalon Primary Care Unavailable Lambert, [place] Attending Unavailable Lambert, Bunny Referring Unavailable Christie, Chalon Primary Care Unavailable Lambert, [place] Attending Unavailable Christie, Chalon Referring Unavailable Christie, Chalon Primary Care Unavailable Mariia BRAY, Bhavna Lucero Attending Unavail able Allergies Allergy Classification Reported Allergen(s) Allergy Type Date of Onset Reaction(s) Facility (1 source) enalapril Drug Allergy 6 [facility] Work Phone: (1 source) warfarin Drug Allergy 7 Bleeding under skin/sensitive to med [facility] Work Phone: (2 sources) NKDA drug allergy 3 [facility] Work Phone: (1 source) LAURA-I drug allergy 5 cough [facility] Work Phone: (20 sources) Azithromycin; 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: [AZITHROMYCIN] Drug Allergy 7 Other: See Comments [facility] Repository (20 sources) Enalapril; 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: [ENALAPRIL] Drug Allergy 5 Cough [facility] Repository (11 sources) House dust mite; 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: [DUST MITES] Propensity to adverse reactions (disorder) 0 Other: See Comments [facility] Repository (20 sources) Latex; 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: [LATEX] Propensity to adverse reactions (disorder) 8 Other: See Comments [facility] Repository Comment on above: "pulls skin off" (20 sources) levoFLOXacin; 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: [LEVOFLOXACIN] Drug Allergy 7 Other: See Comments [facility] Repository (11 sources) Mold; 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: [MOLDS EXTRACT] Propensity to adverse reactions (disorder) 0 Other: See Comments [facility] Repository (1 source) Adhesive Tape; 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: [TAPE] allergy to substance 9 [facility] Work Phone: (1 source) Azithromycin Drug Allergy 9 [facility] Work Phone: (1 source) levoFLOXacin Drug Allergy 9 [facility] Work Phone: (14 sources) Angiotensin-conv erting enzyme inhibitor agent; 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: [LAURA INHIBITORS] Drug Allergy 7 Cough, Unknown [facility] Work Phone: (20 sources) Warfarin; 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: [WARFARIN] Drug Allergy 7 Other: See Comments [facility] Work Phone: (20 sources) Adhesive Tape; 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: [adhesive tape] Propensity to adverse reactions 2 [facility] (5 sources) Angiotensin-conv erting enzyme inhibitor agent Drug Allergy 7 Cough, Unknown [facility] Work Phone: (20 sources) Angiotensin Converting Enzyme (Laura) Inhibitors Propensity to adverse reactions 2 cough [facility] (1 source) Angiotensin Converting Enzyme (Laura) Inhibitors Drug allergy (disorder) 5 [facility] Repository (1 source) Warfarin Drug Allergy 5 [facility] Repository Medications Current Medications Medication Drug Class(es) Dates Sig (Normalized) Sig (Original) [id number] 200 actuat albuterol 0.09 mg/actuat metered dose inhaler (20 sources) beta2-Adrenergic Agonist Start: 03-11-2023 albuterol HFA (PROVENTIL HFA, VENTOLIN HFA) 90 mcg/actuation inhaler 03/11/2023 Active Start: 05-17-2021 take 2.5 mg by inhal ation every four hours as needed albuterol (PROVENTIL) 2.5 mg /3 mL (0.083 %) nebulizer solution Use 2.5 mg via nebulizer every 4 hours as needed for wheezing/shortness of breath. 05/17/2021 Active Start: 05-17-2021 albuterol (PRO VENTIL) 2.5 mg /3 mL (0.083 %) nebulizer solution Start: 01-30-2021 Albuterol Sulf ate 2.5 mg /3 mL (0.083 %) solution for nebulization Active 2.5 mg continuous nebulization AT BEDTIME January 30, 2021 12:00am breathing Start: 11-22-2020 Albuterol Sulf ate 90 mcg/actuation HFA aerosol inhaler Active 2 NMA INHALATION Q4H as needed for fill as courtesy until 's office open November 22, 2020 12:00am Start: 11-22-2020 take 1 puff(s) by in halation every four hours Albuterol Sulfate Active 2 PUFF INHALATION Q4H November 22, 2020 12:00am Comment on above: Use 2.5 mg via nebul izer every 4 hours as needed for wheezing/shortness of breath. apixaban 2.5 mg oral tablet (20 sources) Factor Xa Inhibitor Start: 11-14-19 End: 06-29-20 take 2.5 mg by mouth twice daily Apixaban 5 mg tablet Discontinued 2.5 mg PO TWICE A DAY November 13, 2018 3:28pm June 29, 2020 12:25pm afib Start: 11-13-2018 End: 06-29-2020 take 2.5 mg by mouth twice daily Apixaban Discontinued 2.5 MG PO TWICE A DAY November 13, 2018 3:28pm June 29, 2020 12:25pm Start: 2018 ELIQUIS 5 MG T ABS 1 tablet 2 x day APIXABAN [id number] Liam Heath MD Start: 05-20-2018 End: 11-13-2018 take 1 tablet by mouth twice daily Apixaban 5 MG tablet Discontinued 5 mg PO TWICE A DAY May 20, 2018 12:00am November 13, 2018 3:29pm Start: 07-13-2017 End: 11-16-2017 take 1 tablet by mouth twice daily Eliquis 5 MG tablet Discontinued 5 mg PO TWICE A DAY July 13, 2017 1:00am November 16, 2017 9:33am blood thinner Start: 09-14-2016 take 1 tablet by tomer th twice daily ELIQUIS 5 MG TABS One tablet by mouth twice daily APIXABAN [id number] Bunny Verdin MD Start: 10-07-2015 End: 11-16-2015 take 2 tablets by mouth twice daily Apixaban (Eliquis) 2.5 MG tablet Discontinued 5 mg PO TWICE A DAY October 07, 2015 1:00am November 16, 2015 6:15pm Start: 09-15-2015 take 1 tablet by tomer th twice daily Apixaban (Eliquis) 2.5 mg tablet Active 2.5 mg PO TWICE A DAY June 29, 2020 1:00am blood thinner Start: 08-24-2015 End: 09-03-2015 take 2.5 mg by mouth twice daily Apixaban (Eliquis) 5 MG tablet Discontinued 2.5 mg PO TWICE A DAY August 24, 2015 1:00am September 03, 2015 9:45am Comment on above: Take 2.5 mg by mouth twice daily. ascorbic acid 1000 mg oral tablet (20 sources) Start: 2018 VITAMIN C ER 1000 MG CR-TABS 1 x day ASCORBIC ACID [id number] Liam Heath MD Start: 03-26-2017 End: 12-29-2020 take 1 tablet by mouth once daily Ascorbic Acid (Vitamin C) 1,000 MG tablet Discontinued 1000 mg PO DAILY May 20, 2018 12:00am December 29, 2020 11:27am vitmain take 1 tablet by tomer th once daily VITAMIN C 100 MG TABS One tablet by mouth daily ASCORBIC ACID [id number] Rachidmulugeta Malone Comment on above: Take 1,000 mg by tomer th once daily. azelastine hydrochloride 0.137 mg/actuat metered dose nasal spray (20 sources) Histamine-1 Receptor Antagonist Start: 05-22-2023 Azelastine 137 mcg (0.1 %) aerosol,spray Active 1 NMA INTRANASAL AT BEDTIME May 22, 2023 12:00am Start: 05-22-2023 Azelastine Act danika 1 SPRAY INTRANASAL AT BEDTIME May 22, 2023 12:00am Start: 01-26-2023 take 1-2 spray(s) na johnny route twice daily azelastine 0.1% nasal spray USE 1 TO 2 SPRAY(S) IN EACH NOSTRIL TWICE DAILY 01/26/2023 Active 4 ml bevacizumab 25 mg/ml injection (20 sources) Vascular Endothelial Growth Factor Inhibitor Start: 01-21-2025 Bevacizumab (Avastin ) 25 mg/mL solution Active 0 .ROUTE .COMPLEX January 21, 2025 7:58am every 6 wks; Start: 12-25-2023 End: 01-21-2025 Bevacizumab (Avastin) 25 mg/ mL solution Discontinued December 25, 2023 12:00am January 21, 2025 8:03am bevacizumab (SUSANA STIN) 25 mg/mL injection 1.25 mg by INTRAVITREAL route every 8 weeks. Active cholecalciferol 0.025 mg oral capsule (20 sources) Vitamin D Start: 01-21-2025 take 1 capsule by mouth once daily Cholecalciferol (Vitamin D3) 25 mcg (1,000 unit) capsule Active 5000 U PO daily January 21, 2025 7:58am supplement Start: 2018 VITAMIN D3 100 0 UNIT TABS 1 tablet 2 x day CHOLECALCIFEROL [id number] Liam Heath MD Start: 05-20-2018 End: 01-21-2025 take 1 capsule by mouth twice daily Cholecalciferol (Vitamin D3) 1,000 UNIT capsule Discontinued 1000 U PO TWICE A DAY May 20, 2018 12:00am January 21, 2025 8:03am supplement Cholecalciferol, Vitamin D3, (VITAMIN D) 25 mcg (1,000 unit) cap Take 1,000 Units by mouth once daily. Active Comment on above: Take 1,000 Units by mouth once daily. Coffee Xt-Phosphatidyl Serine (Neuriva Original) 100-100 mg capsule (13 sources) Start: 09-17-2024 Coffee Xt-Phosphatidyl Serine (Neuriva Original) 100-100 mg capsule Active NMA PO September 17, 2024 1:00am CPAP (9 sources) Start: 05-16-2012 CPAP Use as directed 0 05/16/2012 Suspended Start: 05-16-2012 CPAP Use as di rected 0 05/16/2012 Active Comment on above: Use as directed empagliflozin 25 mg oral tablet (20 sources) Sodium-Glucose Cotransporter 2 Inhibitor Start: 03-24-20 take 0.5 tablet by mouth once daily Empagliflozin (Jardiance) 25 mg tablet Active 12.5 mg PO DAILY March 24, 2022 12:00am take 1/2 tab daily empagliflozin (J ARDIANCE) 25 mg tablet Take 12.5 mg by mouth daily with breakfast. Active Comment on above: Take 12.5 mg by mout h daily with breakfast. ferrous gluconate 324 mg oral tablet (20 sources) Start: 05-20-2018 take 1 tablet by mouth once daily Ferrous Gluconate 325 MG tablet Active 325 mg PO DAILY May 20, 2018 12:00am iron supplement Start: 05-20-2018 take 325 mg by mouth twice daily at mealtime Ferrous Gluconate Active 325 MG PO TWICE DAILY WITH MEALS May 20, 2018 12:00am Comment on above: Take 325 mg by mouth twice daily. fluticasone propionate 0.05 mg/actuat metered dose nasal spray (20 sources) Corticosteroid Start: take 50 ug nasal route once daily Fluticasone Propionate (Flonase Allergy Relief) 50 mcg/actuation spray,suspension Active 2 NMA INTRANASAL DAILY December 29, 2020 12:00am congestion administer into each nostril Start: 12-29-2020 take 1 spray(s) nasa l route once daily Fluticasone Propionate (Flonase Allergy Relief) 50 mcg/actuation spray,suspension Active 2 SPRAY INTRANASAL DAILY December 29, 2020 12:00am administer into each nostril Start: 2018 ALLERGY RELIEF 50 MCG/ACT SUSP 2 x day FLUTICASONE PROPIONATE [id number] Liam Heath MD Start: 05-20-2018 End: 12-29-2020 take 50 ug by inhalation twice daily Fluticasone Furoate 50 MCG blister with device Discontinued 50 ug IH TWICE A DAY May 20, 2018 12:00am December 29, 2020 11:24am congestion Start: 02-29-2016 FLUTICASONE DE OPIONATE 50 MCG/ACT SUSP (0.05mg/inh) 1 spray each nostril once a day FLUTICASONE PROPIONATE [id number] Maylin Thompson RN take 1 spray(s) nasa l route once daily fluticasone (FLONASE) 50 mcg/actuation nasal spray Use 1 Boyd in each nostril once daily. Active Comment on above: Use 1 Boyd in each nostril once daily. furosemide 40 mg oral tablet (20 sources) Loop Diuretic Start: 02-23-2025 take 1 tablet by mouth twice daily, then take 1 tablet by mouth once daily furosemide (LASIX) 40 mg tablet TAKE ONE TABLET BY MOUTH TWICE DAILY FOR 5 DAYS, THEN TAKE ONE TABLET ONCE DAILY FOR EPISODES OF CHF. 02/23/2025 Active Start: 01-21-2025 take 1 tablet by tomer th once daily Furosemide 40 mg tablet Active 40 mg PO daily January 21, 2025 7:59am Start: 11-24-2024 End: 01-21-2025 Furosemide 40 mg tablet Disc ontinued 40 mg PO .COMPLEX 120 3 November 24, 2024 12:02pm January 21, 2025 8:03am twice a day for 5 days, then once daily; please give extra pills for episodes of CHF Start: 11-21-2024 End: 11-24-2024 take 1 tablet by mouth once daily in the morning Furosemide 40 mg tablet Discontinued 40 mg PO .COMPLEX 5 0 November 21, 2024 12:00am November 24, 2024 12:03pm 40 mg orally once a day in am X 5 days; Start: 02-12-2023 End: 03-12-2023 take 1 tablet by mouth once daily for edema Furosemide 40 mg tablet Discontinued 40 mg PO .COMPLEX February 12, 2023 12:00am March 12, 2023 10:39am On Hold: Resume on 03/10/23. 40 mg orally daily X 3 days for edema; Start: 04-05-2022 End: 06-20-2022 take 1 tablet by mouth every other day Furosemide 20 mg tablet Discontinued 20 mg PO EVERY OTHER DAY April 05, 2022 12:36pm June 20, 2022 10:17am water pill Start: 01-24-2022 End: 02-06-2022 take 2 tablets by mouth once daily Furosemide 20 mg tablet Discontinued 40 mg PO DAILY January 24, 2022 4:14pm February 06, 2022 12:15pm Start: 01-24-2022 End: 02-06-2022 take 40 mg by mouth once daily Furosemide Discontinued 40 MG PO DAILY January 24, 2022 4:14pm February 06, 2022 12:15pm Start: 01-19-2022 End: 01-24-2022 take 10 mg by mouth once daily Furosemide 20 mg tablet Discontinued 10 mg PO DAILY January 19, 2022 1:39pm January 24, 2022 4:14pm Start: 01-19-2022 End: 01-24-2022 take 10 mg by mouth once daily Furosemide Discontinued 10 MG PO DAILY January 19, 2022 1:39pm January 24, 2022 4:14pm Start: 09-23-2021 End: 04-05-2022 take 1 tablet by mouth once daily Furosemide 20 mg tablet Discontinued 20 mg PO DAILY February 06, 2022 12:14pm April 05, 2022 12:36pm water pill Start: 09-23-2021 End: 09-23-2021 take 20 mg by mouth once daily Furosemide Discontinued 20 MG PO DAILY September 23, 2021 2:08pm September 23, 2021 2:36pm Start: 03-07-2021 End: 09-23-2021 take 1 tablet by mouth once daily Furosemide 40 mg tablet Discontinued 20 mg PO DAILY September 23, 2021 2:08pm September 23, 2021 2:36pm water pill Start: 01-31-2021 End: 03-07-2021 Furosemide 40 mg tablet Disc ontinued 40 mg PO .COMPLEX 1 0 January 31, 2021 4:28pm March 07, 2021 2:36pm 40 mg BID for 3 days (02/01-02/04) then return to 20 mg a day Start: 11-24-2020 End: 01-31-2021 take 1 tablet by mouth once daily Furosemide 40 mg tablet Discontinued 40 mg PO DAILY December 08, 2020 4:46pm January 31, 2021 4:29pm Start: 11-19-2020 End: 11-24-2020 take 1 tablet by mouth twice daily Furosemide 40 mg tablet Discontinued 40 mg PO TWICE A DAY 180 3 November 19, 2020 9:17am November 24, 2020 9:47am this is a dose increase Start: 05-20-2018 End: 11-19-2020 take 1 tablet by mouth once daily Furosemide 40 mg tablet Discontinued 40 mg PO DAILY 90 3 December 01, 2019 9:44am November 19, 2020 9:19am Start: 07-13-2017 End: 02-18-2018 take 1 tablet by mouth once daily Furosemide 40 mg tablet Discontinued 40 mg PO DAILY 90 3 February 18, 2018 9:34am February 18, 2018 10:50am water pill Start: 05-18-2017 End: 09-23-2021 Furosemide 40 mg tablet Disc ontinued 20 mg PO DAILY September 23, 2021 2:08pm September 23, 2021 2:36pm Start: 05-18-2017 take 1 tablet by tomer th once daily LASIX 40 MG TABS One tablet by mouth daily FUROSEMIDE [id number] Bhavna Chiang PA-C Comment on above: Take 20 mg by mouth once daily. 12 hr guaiFENesin 600 mg extended release oral tablet (20 sources) Start: 04-02-2022 take 1 tablet by mouth twice daily, then take 1 tablet by mouth every twelve hours Guaifenesin (Mucinex) 600 mg Tablet Extended Release 12hr Active 600 mg PO TWICE A DAY April 02, 2022 12:00am Start: 01-19-2022 End: 03-06-2022 take 1 tablet by mouth twice daily, then take 1 tablet by mouth every twelve hours Guaifenesin (Mucinex) 600 mg tablet extended release 12hr Discontinued 600 mg PO TWICE A DAY January 19, 2022 12:00am March 06, 2022 1:16pm Start: 10-30-2015 End: 11-16-2015 take 1 tablet by mouth twice daily Mucinex Dm ER 600-30 mg Tablet Discontinued 600 mg PO TWICE A DAY October 30, 2015 1:00am November 16, 2015 6:13pm Start: 03-27-2014 End: 03-29-2014 Guaifenesin (Mucinex) 1,200 MG tablet Discontinued 1 {tbl} PO DAILY March 27, 2014 12:00am March 29, 2014 10:36am Start: 03-27-2014 End: 03-29-2014 take 1 tablet by mouth once daily Guaifenesin (Mucinex) 1,200 MG tablet Discontinued 1 TABLET PO DAILY March 27, 2014 12:00am March 29, 2014 10:36am Comment on above: Take 1,200 mg by tomer th daily at bedtime. Handicap Parking Placard (20 sources) Start: 08-25-2020 Handicap Parking Placard Active 0 .Route .MEDSUPPLY 1 August 25, 2020 2:09pm As directed Start: 08-25-2020 Handicap Parki ng Placard Active 0 .Route .MEDSUPPLY 1 August 25, 2020 1:00am LIFETIME: renew 08/25/2025 As directed Start: 08-25-2020 Handicap Parki ng Placard Active 0 .Route .MEDSUPPLY August 25, 2020 12:00am As directed Start: 08-25-2020 Handicap Parki ng Placard Active 0 .Route .MEDSUPPLY August 25, 2020 1:00am As directed 3 ml insulin aspart, human 100 unt/ml pen injector (20 sources) Insulin Analog Start: 01-21-2025 inject 10 [IU] by subcutaneous injection at breakfast Insulin Aspart U-100 100 unit/mL (3 mL) insulin pen Active 10 U SC .COMPLEX January 21, 2025 8:00am DM 10 units subcutaneously breakfast and lunch; SSI Start: 05-20-2018 Insulin Aspart U-100 100 UNITS/ML insulin pen Active 5 U SC WITH DINNER May 20, 2018 12:00am DM SSI Start: 05-20-2018 End: 01-21-2025 Insulin Aspart U-100 100 UNI TS/ML insulin pen Discontinued 10 U SC WITH BREAKFAST May 20, 2018 12:00am January 21, 2025 8:03am DM SSI Start: 05-20-2018 End: 06-29-2020 Insulin Aspart U-100 100 UNI TS/ML insulin pen Discontinued 6 U SC WITH LUNCH May 20, 2018 12:00am June 29, 2020 12:28pm DM Start: 05-20-2018 Insulin Aspart U-100 Active 10 UNITS SC WITH BREAKFAST May 20, 2018 12:00am SSI Start: 05-20-2018 Insulin Aspart U-100 Active 5 UNIT SC WITH DINNER May 20, 2018 12:00am SSI Start: 05-20-2018 End: 06-29-2020 Insulin Aspart U-100 Discont inued 6 UNITS SC WITH LUNCH May 20, 2018 12:00am June 29, 2020 12:28pm Start: 05-20-2018 Insulin Aspart U-100 Active 12 UNITS SC WITH BREAKFAST May 20, 2018 12:00am insulin aspart U -100 (NOVOLOG FLEXPEN U-100 INSULIN) 100 unit/mL inpn Inject subcutaneously three times daily with meals. Sliding scale. Active Comment on above: Inject subcutaneousl y three times daily with meals. Sliding scale. Insulin Glargine (20 sources) Insulin Analog Start: inject 12 [IU] by subcutaneous injection at bedtime Insulin Glargine Active 12 UNIT SQ AT BEDTIME November 24, 2020 9:39am Start: 11-24-2020 inject 12 [IU] by jarvis bcutaneous injection at bedtime Insulin Glargine Active 12 UNIT SQ AT BEDTIME November 24, 2020 9:39am Start: 11-24-2020 inject 10 [IU] by jarvis bcutaneous injection at bedtime Insulin Glargine Active 10 UNIT SQ AT BEDTIME November 23, 2020 11:00pm SSI Start: 11-24-2020 inject 10 [IU] by jarvis bcutaneous injection at bedtime Insulin Glargine Active 10 UNIT SQ AT BEDTIME November 24, 2020 12:00am SSI Start: 11-24-2020 inject 12 [IU] by jarvis bcutaneous injection at bedtime Insulin Glargine Active 12 UNIT SQ AT BEDTIME November 24, 2020 12:00am Start: 2018 LANTUS SOLN 12 units at bedtime INSULIN GLARGINE SOLN [id number] Liam Heath MD Insulin Glargine 100 unit/mL solution (7 sources) Start: 01-21-2025 Insulin Glargi ne 100 unit/mL solution Active 8 U SC AT BEDTIME January 21, 2025 8:00am DM SSI Start: 01-21-2025 Insulin Glargi ne 100 unit/mL solution Active 8 U SC AT BEDTIME January 21, 2025 8:00am SSI insulin glargine-yfgn (SEMGLEE) 100 unit/mL (3 mL) insulin pen (2 sources) Start: 09-05-2023 inject 8 [IU] by subcutaneous injection once daily in the morning insulin glargine-yfgn (SEMGLEE) 100 unit/mL (3 mL) insulin pen Inject 8 Units subcutaneously every morning. 09/05/2023 Active Start: 09-05-2023 inject 8 [IU] by sub cutaneous injection once daily in the morning insulin glargine-yfgn (SEMGLEE) 100 unit/mL (3 mL) insulin pen Inject 8 Units subcutaneously every morning. 0 09/05/2023 Active Lactobacillus Comb No.10 (20 sources) Start: 11-24-2020 Lactobacillus Comb No.10 Active 1 EACH PO TWICE A DAY November 24, 2020 9:39am Start: 11-24-2020 Lactobacillus Comb No.10 Active 1 EACH PO DAILY November 24, 2020 12:00am Start: 11-24-2020 Lactobacillus Comb No.10 Active 1 EACH PO TWICE A DAY November 23, 2020 11:00pm Start: 11-24-2020 Lactobacillus Comb No.10 Active 1 EACH PO TWICE A DAY November 24, 2020 12:00am Lactobacillus Comb No.10 1 EACH capsule (13 sources) Start: 11-24-2020 take 1 capsule by mouth once daily Lactobacillus Comb No.10 1 EACH capsule Active 1 NMA PO DAILY November 24, 2020 12:00am supplement Start: 11-24-2020 take 1 capsule by mo uth once daily Lactobacillus Comb No.10 1 EACH capsule Active 1 NMA PO DAILY November 24, 2020 12:00am Mometasone (Asmanex Hfa) 200 mcg/actuation HFA aerosol inhaler (13 sources) Start: 03-19-2024 Mometasone (As manex Hfa) 200 mcg/actuation HFA aerosol inhaler Active 2 NMA INHALATION DAILY March 19, 2024 2:31pm multivitamin (MULTIPLE VITAMINS) ORAL tablet (9 sources) take 1 tablet by mouth once daily multivitamin (MULTIPLE VITAMINS) ORAL tablet Take 1 tablet by mouth once daily. Active take 1 tablet by mouth once yessi y multivitamin (MULTIPLE VITAMINS) ORAL tablet Take 1 tablet by mouth once daily. 0 Suspended take 1 tablet by mouth once yessi y multivitamin (MULTIPLE VITAMINS) ORAL tablet Take 1 tablet by mouth once daily. 0 Active Comment on above: Take 1 tablet by tomer th once daily. Multivitamin 1 EACH tablet (13 sources) Start: 05-20-2018 Multivitamin 1 EACH tablet Active 1 NMA PO DAILY May 20, 2018 12:00am supplement Start: 05-20-2018 Multivitamin 1 EACH tablet Active 1 NMA PO DAILY May 20, 2018 12:00am Multivitamin preparation (20 sources) Start: 05-20-2018 Multivitamin A ctive 1 EACH PO DAILY May 20, 2018 7:21pm Start: 05-20-2018 Multivitamin A ctive 1 EACH PO DAILY May 19, 2018 11:00pm Start: 05-20-2018 Multivitamin A ctive 1 EACH PO DAILY May 20, 2018 12:00am Tiotropium-Olodaterol (16 sources) Anticholinergic, beta2-Adrenergic Agonist Start: 12-25-2023 Tiotropium-Olodaterol (Stiolto Respimat) 2.5-2.5 mcg/actuation mist Active 2 NMA INHALATION DAILY December 25, 2023 12:00am Start: 12-25-2023 Tiotropium-Olo daterol (Stiolto Respimat) 2.5-2.5 mcg/actuation mist Active 2 PUFF INHALATION DAILY December 25, 2023 12:00am take 2 puff(s) by in halation twice daily tiotropium 2.5 mcg-olodateroL 2.5 mcg/actuation mist for inhalation (STIOLTO RESPIMAT) Inhale 2 Puffs as instructed twice daily. Active Troy-3 Fatty Acids 1,000 mg capsule (7 sources) Start: 01-21-2025 take 1 capsule by mouth twice daily Troy-3 Fatty Acids 1,000 mg capsule Active 2000 mg PO TWICE A DAY January 21, 2025 12:00am Troy-3 Fatty Acids-Fish Oil (20 sources) Start: 05-20-2018 Troy-3 Fatty Acids-Fish Oil Active 1 EACH PO DAILY May 20, 2018 7:21pm Start: 05-20-2018 Troy-3 Fatty Acids-Fish Oil Active 1 EACH PO DAILY May 19, 2018 11:00pm Start: 05-20-2018 Troy-3 Fatty Acids-Fish Oil Active 1 EACH PO DAILY May 20, 2018 12:00am OZEMPIC 0.25 mg or 0.5 mg (2 mg/3 mL) pen (1 source) Start: 01-27-2025 OZEMPIC 0.25 m g or 0.5 mg (2 mg/3 mL) pen INJECT 0.25MG SUBCUTANEOUSLY ONCE A WEEK, ROTATE INJECTION SITE. 01/27/2025 Active quercetin 500 mg oral capsule (13 sources) Start: 03-19-2024 take 1 mg by mouth twice daily Quercetin 500 mg capsule Active mg PO TWICE A DAY March 19, 2024 12:00am 0.25 mg, 0.5 mg dose 1.5 ml semaglutide 1.34 mg/ml pen injector (7 sources) Start: 01-21-2025 Semaglutide (O zempic) 0.25 mg or 0.5 mg(2 mg/1.5 mL) pen injector Active 0.25 mg SC EVERY WEEK January 21, 2025 12:00am for 4 weeks levothyroxine sodium 0.125 mg oral tablet (20 sources) l-Thyroxi ne Start: 12-25-2023 take 1 tablet by mouth once daily Levothyroxine 125 mcg tablet Active 125 ug PO DAILY December 25, 2023 12:00am Start: 05-20-2018 End: 04-08-2025 Levothyroxine 100 MCG tablet Discontinued 100 ug PO MOTUWETHFRSA May 20, 2018 12:00am December 25, 2023 12:51am hypothyroidism Start: 05-20-2018 End: 12-25-2023 Levothyroxine 100 MCG tablet Discontinued 200 ug PO JARVIS May 20, 2018 12:00am December 25, 2023 12:51am hypothyroidism Start: 05-20-2018 End: 12-25-2023 Levothyroxine Discontinued 2 00 MCG PO JARVIS May 20, 2018 12:00am December 25, 2023 12:51am Start: 07-13-2017 End: 10-09-2017 take 2 tablets by mouth once daily Levothyroxine 50 MCG tablet Discontinued 100 ug PO DAILY July 13, 2017 4:32am October 09, 2017 11:19am thyroid Start: 07-13-2017 End: 10-09-2017 take 100 ug by mouth once daily Levothyroxine Discontinued 100 MCG PO DAILY July 13, 2017 4:32am October 09, 2017 11:19am Start: 05-29-2013 take 1 tablet by tomer th once daily LEVOTHYROXINE SODIUM 75 MCG TABS One tablet by mouth daily LEVOTHYROXINE SODIUM [id number] Bhavna Chiang PA-C Start: 02-25-2013 End: 07-13-2017 take 1 tablet by mouth once daily Levothyroxine 50 MCG tablet Discontinued 50 ug PO DAILY 30 0 November 16, 2015 6:14pm July 13, 2017 4:32am Start: 09-13-2011 take 1 tablet by tomer th once daily, then take 2 tablets by mouth once daily, then take 1 tablet by mouth once daily SYNTHROID 25 MCG TABS One tablet by mouth daily 2 tablets on even days and 1 on odd days LEVOTHYROXINE SODIUM [id number] Fran Jewell MD Comment on above: Take 100 mcg by mout h daily before breakfast. Takes 200 mg on Sundays Vitamins A,C,L-Fvcs-Faffpb (Preservision Areds) 4,296 mcg-226 mg-90 mg capsule (7 sources) Start: 01-21-2025 Vitamins A,C,G-Nwpc-Rksefz (Preservision Areds) 4,296 mcg-226 mg-90 mg capsule Active 1 NMA PO TWICE A DAY January 21, 2025 12:00am Completed/Discontinued Medications Medication Drug Class(es) Dates Sig (Normalized) Sig (Original) acetaminophen 325 mg / HYDROcodone bitartrate 5 mg oral tablet (20 sources) Opioid Agonist Start: 05-20-2018 End: 08-09-2018 Hydrocodone-Acetami nophen 1 EACH tablet Discontinued 1 NMA PO EVERY 4 HOURS NEEDED as needed for Pain May 20, 2018 11:47pm August 09, 2018 3:33pm Headache Headache Start: 05-20-2018 End: 08-09-2018 Hydrocodone-Acetaminophen Di scontinued 1 EACH PO EVERY 4 HOURS NEEDED May 20, 2018 11:47pm August 09, 2018 3:33pm albuterol 0.833 mg/ml / ipratropium bromide 0.167 mg/ml inhalation solution (20 sources) Anticholinergic, beta2-Adrenergic Agonist Start: 08-24-2015 End: 09-03-2015 take 1 mL by inhalation twice daily as needed for wheezing Ipratropium-Albuterol 3 ML Ampul.Neb Discontinued 3 mL INHALATION TWICE A DAY as needed for Sob &/Or Wheezing August 24, 2015 1:00am September 03, 2015 9:42am Start: 08-24-2015 End: 09-03-2015 take 1 mL by inhalation twice daily Ipratropium-Albuterol Discontinued 3 ML INHALATION TWICE A DAY August 24, 2015 1:00am September 03, 2015 9:42am amiodarone hydrochloride 200 mg oral tablet (20 sources) Antiarrhythmic Start: 07-13-2017 End: 02-11-2018 take 1 tablet by mouth once daily Amiodarone 200 MG tablet Discontinued 200 mg PO DAILY July 13, 2017 4:32am February 11, 2018 9:11am heart rhythm Start: 03-23-2017 End: 07-13-2017 take 2 tablets by mouth twice daily Amiodarone 200 MG tablet Discontinued 400 mg PO TWICE A DAY 0 March 23, 2017 12:00am July 13, 2017 4:32am Start: 03-23-2017 End: 07-13-2017 take 400 mg by mouth twice daily Amiodarone Discontinued 400 MG PO TWICE A DAY March 23, 2017 12:00am July 13, 2017 4:32am Start: 03-16-2017 End: 03-23-2017 take 1 tablet by mouth once daily Amiodarone 200 MG tablet Discontinued 200 mg PO DAILY March 21, 2017 12:00am March 23, 2017 8:06am Start: 03-16-2017 take 2 tablets by [facility] once daily AMIODARONE HCL 200 MG TABS Two tablets by mouth daily AMIODARONE HCL [id number] Bhavna Chiang PA-C Start: 08-01-2011 End: 02-25-2013 AMIODARONE HCL 200 MG TABS o ne tab once a day AMIODARONE HCL [id number] Fran Jewell MD Start: 07-25-2011 End: 07-25-2011 take 1 tablet by mouth three times daily AMIODARONE HCL 200 MG TABS One tablet by mouth three times daily AMIODARONE HCL [id number] Toña Zapata RN Start: 07-25-2011 AMIODARONE HCL 200 MG TABS one tab twice a day thru 08-01-11 then once a day AMIODARONE HCL [id number] Fran Jewell MD amLODIPine 5 mg oral tablet (20 sources) Dihydropyridine Calcium Channel Tiffany Start: 01-04-2022 End: 01-24-2022 take 2.5 mg by mouth twice daily Amlodipine 5 mg tablet Discontinued 2.5 mg PO TWICE A DAY 180 3 January 04, 2022 10:51am January 24, 2022 4:13pm bp Start: 01-04-2022 End: 01-24-2022 take 2.5 mg by mouth twice daily Amlodipine Discontinued 2.5 MG PO TWICE A DAY 180 January 04, 2022 10:51am January 24, 2022 4:13pm Start: 11-02-2021 End: 01-04-2022 take 1 tablet by mouth twice daily Amlodipine 5 mg tablet Discontinued 5 mg PO TWICE A DAY 180 November 28, 2021 5:01pm January 04, 2022 10:51am bp Start: 06-11-2021 End: 11-02-2021 take 1 tablet by mouth once daily Amlodipine 5 mg tablet Discontinued 5 mg PO DAILY November 02, 2021 5:32pm November 02, 2021 5:36pm bp Start: 01-30-2021 End: 11-02-2021 take 2.5 mg by mouth once daily Amlodipine 5 mg tablet Discontinued 2.5 mg PO DAILY January 30, 2021 5:35am November 02, 2021 5:33pm bp Start: 01-30-2021 End: 11-02-2021 take 2.5 mg by mouth once daily Amlodipine Discontinue d 2.5 MG PO DAILY January 30, 2021 5:35am November 02, 2021 5:33pm Start: 12-29-2020 End: 01-30-2021 take 1 tablet by mouth once daily Amlodipine 5 mg tablet Discontinued 5 mg PO DAILY 90 December 29, 2020 11:50am January 30, 2021 5:35am Start: 12-24-2020 End: 12-29-2020 take 2 tablets by mouth once daily Amlodipine 2.5 mg tablet Discontinued 5 mg PO DAILY 30 December 24, 2020 5:08pm December 29, 2020 11:51am Start: 12-24-2020 End: 12-29-2020 take 5 mg by mouth once daily Amlodipine Discontinued 5 MG PO DAILY December 24, 2020 5:08pm December 29, 2020 11:51am Start: 12-20-2020 End: 12-24-2020 take 1 tablet by mouth once daily Amlodipine 2.5 mg tablet Discontinued 2.5 mg PO DAILY 26 07December 20, 2020 12:00am December 24, 2020 5:08pm Start: 05-20-2018 End: 10-30-2019 take 1 tablet by mouth once daily Amlodipine 2.5 mg tablet Discontinued 2.5 mg PO DAILY 90 May 19, 2019 10:04am October 30, 2019 12:15pm On Hold: Order Changed Start: 02-11-2018 End: 02-13-2018 take 1 tablet by mouth once daily Amlodipine 5 mg tablet Discontinued 5 mg PO daily February 11, 2018 12:00am February 13, 2018 4:45pm Start: 01-21-2018 End: 02-11-2018 take 1 tablet by mouth once daily Amlodipine 10 MG tablet Discontinued 10 mg PO DAILY January 21, 2018 12:00am February 11, 2018 9:11am Start: 07-15-2017 End: 11-16-2017 take 1 tablet by mouth once daily Amlodipine 10 MG tablet Discontinued 10 mg PO DAILY 0 July 15, 2017 1:00am November 16, 2017 9:37am Start: 11-29-2015 End: 05-18-2017 take 1 tablet by mouth once daily NORVASC 10 MG TABS One tablet by mouth daily AMLODIPINE BESYLATE [id number] Bhavna Chiang PA-C Start: 11-16-2015 End: 03-21-2017 take 1 tablet by mouth once daily Amlodipine 5 MG tablet Discontinued 5 mg PO DAILY 30 0 November 16, 2015 12:00am March 21, 2017 1:31pm Comment on above: Take 5 mg by mouth o nce daily. amoxicillin 500 mg / clavulanate 125 mg oral tablet (20 sources) Penicillin-class Antibacterial Start: 01-04-2022 End: 01-19-2022 Amoxicillin-Pot Clavulanate (Augmentin) 500-125 mg tablet Discontinued 1 {tbl} PO TWICE A DAY 14 7 0 January 04, 2022 12:00am January 19, 2022 1:11pm ampicillin 2000 mg injection (20 sources) Penicillin-class Antibacterial Start: 11-12-2015 End: 11-16-2015 Ampicillin Sodium 2 GM/8 ML Vial Discontinued 2 g IV EVERY 6 HOURS 186 0 November 12, 2015 12:00am November 16, 2015 6:11pm IV ampicillin by Cad pump thru picc line until December 15 weekly cbc, sed rate, crp and bmp to Dr Bonner fax # [phone] Start: 11-09-2015 End: 11-16-2015 take 2 g intravenously every six hours Ampicillin Sodium 1,000 MG/4 ML Vial Discontinued 2 g IV EVERY 6 HOURS November 09, 2015 8:08pm November 16, 2015 6:11pm Start: 11-02-2015 End: 11-09-2015 take 1 g intravenously every six hours Ampicillin Sodium 1,000 MG/4 ML Vial Discontinued 1 g IV EVERY 6 HOURS 64 0 November 02, 2015 1:00am November 09, 2015 8:09pm thru picc line by CAD pump DX: recurrent enterococcal bacteremia sed rate and CBC with BMP qwk x 2 End: 12-22-2015 AMPICILLIN SODIUM 2 GM SOLR q 6 hrs AMPICILLIN SODIUM [id number] Jessica Ordoñez amylase 71632 unt / lipase 52991 unt / protease 73156 unt delayed release oral capsule (20 sources) Start: 12-29-2020 End: 03-07-2021 Puxsvz-Vxdxzcgm-Qzmdenj 10,0 00-32,000 -42,000 unit capsule,delayed release(DR/EC) Discontinued 2 NMA PO .COMPLEX December 29, 2020 11:24am March 07, 2021 2:36pm 2 caps PO 2 caps with each meal, 1 cap with snacks; Start: 12-29-2020 End: 03-07-2021 Jhbpee-Ngqkhsxy-Xamjnaa Disc ontinued 2 CAP PO .COMPLEX December 29, 2020 11:24am March 07, 2021 2:36pm 2 caps PO 2 caps with each meal, 1 cap with snacks; Start: 11-24-2020 End: 12-29-2020 Nsjlhc-Vkdjzgfs-Xupqklw 1 EA CH capsule,delayed release(DR/EC) Discontinued 2 NMA PO DAILY November 24, 2020 12:00am December 29, 2020 11:27am Start: 11-24-2020 End: 12-29-2020 Cmipom-Fscggynb-Dmtgszf Disc ontinued 2 EACH PO DAILY November 24, 2020 12:00am December 29, 2020 11:27am ascorbic acid 113 mg / beta carotene 7160 mg / cuprous oxide 0.4 mg / dl-alpha tocopheryl acetate 100 unt / zinc oxide 17.4 mg oral tablet (16 sources) Vitamin C Start: 12-25-2023 End: 01-21-2025 Vitamins A,C,Z-Guhe-Eufrnf ( Eye Multivitamin) 2,148 mcg-113 mg-45 mg-17.4mg tablet Discontinued 2 {tbl} PO TWICE A DAY December 25, 2023 12:00am January 21, 2025 8:03am administer with AM and PM meals vit A,C,E-Zinc-C opper (OCUVITE PRESERVISION) 2,148 mcg-113 mg-45 mg-17.4mg tab as directed Orally Active aspirin 81 mg delayed release oral tablet (20 sources) Nonsteroidal Anti-inflammatory Drug Start: 05-18-2017 End: 06-19-2017 take 1 tablet by mouth once daily ASPIRIN EC 81 MG TBEC One tablet by mouth daily ASPIRIN [id number] Bhavna Chiang PA-C Start: 10-07-2015 End: 11-16-2015 take 1 tablet by mouth once daily Aspirin 81 MG Tab.Chew Discontinued 81 mg PO DAILY October 07, 2015 1:00am November 16, 2015 6:12pm Start: 12-15-2010 End: 06-08-2016 take 1 tablet by mouth once daily ASPIRIN 81 MG TABS One tablet by mouth daily ASPIRIN [id number] Adenike Morocho atorvastatin 10 mg oral tablet (20 sources) HMG-CoA Reductase Inhibitor Start: 07-09-2023 End: 09-01-2024 take 1 tablet by mouth at bedtime Atorvastatin 20 mg tablet Active 20 mg PO AT BEDTIME 90 September 01, 2024 10:38am Start: 05-22-2023 End: 07-09-2023 take 2 tablets by mouth at bedtime Atorvastatin 10 mg tablet Discontinued 20 mg PO AT BEDTIME 90 July 09, 2023 11:19am July 09, 2023 1:21pm cholesterol Start: 05-22-2023 End: 07-09-2023 take 20 mg by mouth at bedtime Atorvastatin Discontinu ed 20 MG PO AT BEDTIME 90 July 09, 2023 11:19am July 09, 2023 1:21pm Start: 04-25-2019 End: 07-09-2019 take 10 mg by mouth at bedtime Atorvastatin 20 mg tabl et Discontinued 10 mg PO AT BEDTIME April 25, 2019 2:41pm July 09, 2019 10:43am Start: 04-25-2019 End: 07-09-2019 take 10 mg by mouth at bedtime Atorvastatin Discontinu ed 10 MG PO AT BEDTIME April 25, 2019 2:41pm July 09, 2019 10:43am Start: 05-20-2018 End: 04-25-2019 take 1 tablet by mouth at bedtime Atorvastatin 20 MG tablet Discontinued 20 mg PO AT BEDTIME May 20, 2018 12:00am April 25, 2019 2:42pm Start: 07-13-2017 End: 10-09-2017 Atorvastatin 40 MG tablet Discontinued 20 mg PO AT BEDTIME July 13, 2017 4:32am October 09, 2017 11:18am cholesterol Start: 07-13-2017 End: 10-09-2017 take 20 mg by mouth at bedtime Atorvastatin Discontinu ed 20 MG PO AT BEDTIME July 13, 2017 4:32am October 09, 2017 11:18am Start: 12-06-2015 End: 04-08-2025 take 1 tablet by mouth at bedtime Atorvastatin 10 mg tablet Discontinued 10 mg PO AT BEDTIME 90 3 July 03, 2022 5:47pm May 22, 2023 11:18pm cholesterol Start: 10-07-2015 End: 07-13-2017 take 1 tablet by mouth at bedtime Atorvastatin 40 MG tablet Discontinued 40 mg PO AT BEDTIME 30 0 November 16, 2015 6:14pm July 13, 2017 4:32am Start: 09-14-2011 End: 09-03-2015 take 1 tablet by mouth at bedtime Atorvastatin 40 MG tablet Discontinued 40 mg PO AT BEDTIME August 24, 2015 1:00am September 03, 2015 9:45am Comment on above: Take 10 mg by mouth daily at bedtime. benzonatate 100 mg oral capsule (4 sources) Non-narcotic Antitussive Start: 07-05-2021 benzonatate (TESSALON PERLE) 100 mg capsule BUDESONIDE-FORMOTEROL FUMARATE AERO (20 sources) Corticosteroid, beta2-Adrenergic Agonist Start: 2018 SYMBICORT AERO 2 puff 2 x day BUDESONIDE-FORMOTEROL FUMARATE AERO [id number] Liam Heath MD Start: 05-20-2018 End: 01-19-2022 take 1 puff(s) by inhalation once daily Budesonide-Formoterol Discontinued 2 PUFF INHALATION DAILY May 20, 2018 7:21pm January 19, 2022 1:11pm Start: 05-20-2018 take 1 puff(s) by in halation once daily Budesonide-Formoterol Active 2 PUFF INHALATION DAILY May 20, 2018 7:21pm Start: 05-20-2018 End: 01-19-2022 Budesonide-Formoterol 1 INHA LER inhaler Discontinued 2 NMA INHALATION DAILY May 20, 2018 12:00am January 19, 2022 1:11pm Wheezing Start: 05-20-2018 End: 01-19-2022 Budesonide-Formoterol 1 INHA LER inhaler Discontinued 2 NMA INHALATION DAILY May 20, 2018 12:00am January 19, 2022 1:11pm Start: 05-20-2018 End: 01-19-2022 take 1 puff(s) by inhalation once daily Budesonide-Formoterol Discontinued 2 PUFF INHALATION DAILY May 19, 2018 11:00pm January 19, 2022 12:11pm Start: 05-20-2018 End: 01-19-2022 take 1 puff(s) by inhalation once daily Budesonide-Formoterol Discontinued 2 PUFF INHALATION DAILY May 20, 2018 12:00am January 19, 2022 1:11pm take 2 puff(s) by in halation twice daily budesonide-formoterol (SYMBICORT) 160-4.5 mcg/actuation inhaler Inhale 2 Puffs as instructed twice daily. 0 Active Comment on above: Inhale 2 Puffs as in structed twice daily. calcium (2 sources) Phosphate Binder, Calcium Start: 02-29-2016 End: 03-03-2016 take 1 tablet by mouth once daily CALCIUM 500 MG TABS One tablet by mouth daily CALCIUM [id number] Marie Candelario RN Start: 02-29-2016 take 1 tablet by tomer once daily CALCIUM 500 MG TABS One tablet by mouth daily CALCIUM [id number] Maylin Thompson RN carvedilol 25 mg oral tablet (20 sources) alpha-Adrenergic Tiffany, beta-Adrenergic Tiffany Start: 12-06-2015 End: 09-17-2024 take 1 tablet by mouth twice daily Carvedilol 25 mg tablet Discontinued 25 mg PO TWICE A DAY 180 3 September 04, 2023 11:58am September 17, 2024 3:40pm Patient going out of state for 3 months Start: 03-27-2014 End: 09-03-2015 Carvedilol 12.5 MG tablet Discontinued 1 {tbl} PO TWICE A DAY March 27, 2014 12:00am September 03, 2015 9:45am Start: 02-25-2013 End: 11-16-2015 take 1 tablet by mouth twice daily at mealtime Carvedilol 25 MG tablet Discontinued 25 mg PO TWICE DAILY WITH MEALS October 07, 2015 1:00am November 16, 2015 6:15pm Start: 02-25-2013 End: 09-03-2015 take 1 tablet by mouth twice daily Carvedilol Discontinued 1 TABLET PO TWICE A DAY March 27, 2014 12:00am September 03, 2015 9:45am Start: 07-25-2011 take 1 tablet by tomer th twice daily COREG 6.25 MG TABS One tablet by mouth twice daily CARVEDILOL [id number] Fran Jewell MD Start: 12-15-2010 take 1 tablet by tomer th twice daily COREG 3.125 MG TABS One tablet by mouth twice daily CARVEDILOL [id number] Adenike Morocho Comment on above: Take 25 mg by mouth twice daily with meals. cefTRIAXone 2000 mg injection (20 sources) Cephalosporin Antibacterial Start: 11-12-2015 End: 11-16-2015 Ceftriaxone In Dextrose,Iso-Os 2 GM/50 ML Bag Discontinued 2 g IV Q12H 62 0 November 12, 2015 12:00am November 16, 2015 6:13pm IV q12 until December 15 Dx endocarditis labs as per Ampicillin prescription routine picc line care Start: 11-02-2015 End: 11-16-2015 Ceftriaxone In Dextrose,Iso- Os 2 GM/50 ML Bag Discontinued 2 g IV Q12H 28 0 November 02, 2015 1:00am November 16, 2015 6:12pm thru picc line dx: enterococcal bacteremia End: 12-22-2015 CEFTRIAXONE SODIUM 2 GM SOLR q 12 hrs CEFTRIAXONE SODIUM [id number] Jessica Ordoñez cephalexin 500 mg oral capsule (1 source) Cephalosporin Antibacterial Start: 05-18-2017 take 1 tablet by mouth twice daily KEFLEX 500 MG CAPS One tablet by mouth twice daily CEPHALEXIN [id number] Bhavna Chiang PA-C chlorthalidone 50 mg oral tablet (5 sources) Thiazide-like Diuretic Start: 09-16-2013 End: 10-06-2015 take 1 tablet by mouth once daily CHLORTHALIDONE 50 MG TABS One tablet by mouth daily CHLORTHALIDONE [id number] Maylin Thompson, STEFANO clopidogrel 75 mg oral tablet (2 sources) P2Y12 Platelet Inhibitor Start: 03-16-2017 End: 03-26-2017 take 1 tablet by mouth once daily PLAVIX 75 MG TABS One tablet by mouth daily CLOPIDOGREL BISULFATE [id number] Bhavna Chiang PA-C 12 hr dextromethorphan polistirex 6 mg/ml extended release suspension (20 sources) Uncompetitive Y-fqtuvd-A-asparta te Receptor Antagonist, Sigma-1 Agonist Start: 01-04-2022 End: 01-19-2022 take 1 mL by mouth every twelve hours as needed for cough Dextromethorphan Polistirex (Robitussin Er) 30 mg/5 mL suspension,extended rel 12 hr Discontinued 10 mL PO Q12H as needed for cough January 04, 2022 12:00am January 19, 2022 1:11pm Start: 01-04-2022 End: 01-19-2022 take 1 mL by mouth every twelve hours Dextromethorphan Polistirex (Robitussin Er) 30 mg/5 mL suspension,extended rel 12 hr Discontinued 10 ML PO Q12H January 04, 2022 12:00am January 19, 2022 1:11pm 12 hr dextromethorphan hydrobromide 30 mg / guaiFENesin 600 mg extended release oral tablet (4 sources) Uncompetitive R-fjvajs-B-aspartate Receptor Antagonist, Sigma-1 Agonist Start: 09-15-2015 End: 05-18-2017 take 1 tablet by mouth once daily MUCINEX DM 30-600 MG [id number] One tablet by mouth daily DEXTROMETHORPHAN-GUAIFENESIN [id number] Bhavna Chiang, JAISON Start: 02-25-2013 End: 03-24-2014 take 1 tablet by mouth once daily MUCINEX DM 30-600 MG [id number] One table t by mouth daily DEXTROMETHORPHAN-GUAIFENESIN [id number] Bhavna Chiang PA-C 24 hr dilTIAZem hydrochloride 120 mg extended release oral capsule (20 sources) Calcium Channel Tiffany Start: 09-18-2022 End: 09-17-2024 take 1 capsule by mouth twice daily, then take 1 capsule by mouth every twenty-four hours Diltiazem Hcl (Cardizem Cd) 120 mg capsule,extended release 24hr Discontinued 120 mg PO TWICE A DAY 180 3 September 04, 2023 11:59am September 17, 2024 3:40pm Patient going out of state for 3 months Start: 01-24-2022 End: 09-18-2022 take 1 capsule by mouth once daily, then take 1 capsule by mouth every twenty-four hours Diltiazem Hcl (Cardizem Cd) 120 mg capsule,extended release 24hr Discontinued 120 mg PO DAILY April 02, 2022 10:43am September 18, 2022 10:20am Start: 08-24-2015 End: 09-03-2015 Diltiazem Hcl 60 MG tablet Discontinued 1 {tbl} PO THREE TIMES A DAY August 24, 2015 1:00am September 03, 2015 9:45am Start: 08-24-2015 End: 09-03-2015 Diltiazem Hcl 30 MG tablet Discontinued 1 {tbl} PO EVERY 6 HOURS NEEDED as needed for Blood Pressure Elevation August 24, 2015 1:00am September 03, 2015 9:42am Comment on above: Take 120 mg by mouth once daily. enalapril maleate 20 mg oral tablet (3 sources) Angiotensin Converting Enzyme Inhibitor Start: 1 End: 5 take 1 tablet by mouth twice daily ENALAPRIL MALEATE 20 MG TABS One tablet by mouth twice daily ENALAPRIL MALEATE [id number] Bhavna Chiang PA-C esomeprazole 40 mg delayed release oral capsule (1 source) Proton Pump Inhibitor Start: 1 take 1 tablet by mouth once daily NEXIUM 40 MG CPDR One tablet by mouth daily ESOMEPRAZOLE MAGNESIUM [id number] Adenike Morocho ferrous sulfate (20 sources) Start: 9 [facility] IRON 325 (65 Fe) MG TABS 1 tablet 2 x day FERROUS SULFATE [id number] Liam Heath MD Start: 10-07-2015 End: 11-16-2015 take 1 tablet by mouth once daily Ferrous Sulfate (Iron (Ferrous Sulfate)) 325 MG tablet Discontinued 325 mg PO DAILY October 07, 2015 1:00am November 16, 2015 6:13pm Start: 09-15-2015 take 1 tablet by [facility] twice daily IRON 325 (65 Fe) MG TABS One tablet by mouth twice daily FERROUS SULFATE [id number] Bhavna Chiang PA-C Start: 09-15-2015 take 1 tablet by tomer th twice daily IRON 325 (65 Fe) MG TABS One tablet by mouth twice daily FERROUS SULFATE [id number] Isabel Briscoe Caterinamigel RAQUEL Start: 09-15-2015 take 2 tablets by mo uth once daily IRON 325 (65 Fe) MG TABS Two tablets by mouth daily FERROUS SULFATE [id number] Bunny Verdin MD Start: 09-15-2015 take 1 tablet by tomer th three times daily IRON 325 (65 Fe) MG TABS One tablet by mouth three times daily FERROUS SULFATE [id number] Marie Candelario RN Start: 02-25-2013 End: 03-24-2014 take 1 tablet by mouth once daily IRON TABS One tablet by mouth daily FERROUS SULFATE TABS [id number] Bhavna Chiang PA-C Start: 02-25-2013 take 1 tablet by tomer th once daily IRON TABS One tablet by mouth daily FERROUS SULFATE TABS [id number] Bunny Verdin MD Start: 12-15-2010 take 1 tablet by tomer th once daily FERROUS SULFATE 324 MG TABS One tablet by mouth daily FERROUS SULFATE [id number] Adenike Morocho fish oil (2 sources) Start: 2018 [facility] FISH OIL 1 000 MG ORAL LIQUID (OMEGA-3 FATTY ACIDS) 1 x day [facility] FISH OIL 1000 MG ORAL LIQUID (OMEGA-3 FATTY ACIDS) Liam Heath MD Start: 05-18-2017 take 1 tablet by tomer th once daily OMEGA-3 FISH OIL CAPS One tablet by mouth daily OMEGA-3 FATTY ACIDS CAPS [id number] Bhavna Chiang PA-C FLAXSEED OIL (OMEGA 3 ORAL) (4 sources) take 1000 mg by mouth once daily FLAXSEED OIL (OMEGA 3 ORAL) Take 1,000 mg by mouth once daily. 0 Active Comment on above: Take 1,000 mg by tomer th once daily. Fluticasone Propion-Salmeterol (20 sources) Corticosteroid, beta2-Adrenergic Agonist Start: 6 End: 6 take 1 puff(s) by inhalation once daily Fluticasone Propion-Salmeterol (Advair Diskus) 1 PUFF inhaler Discontinued 1 PUFF INHALATION DAILY October 07, 2015 1:34pm November 16, 2015 6:15pm Start: 10-07-2015 End: 11-16-2015 take 1 puff(s) by inhalation once daily Fluticasone Propion-Salmeterol (Advair Diskus) 1 PUFF inhaler Discontinued 1 NMA INHALATION DAILY October 07, 2015 1:00am November 16, 2015 6:15pm Start: 10-07-2015 End: 11-16-2015 take 1 puff(s) by inhalation once daily Fluticasone Propion-Salmeterol (Advair Diskus) 1 PUFF inhaler Discontinued 1 PUFF INHALATION DAILY October 07, 2015 12:00am November 16, 2015 5:15pm Start: 10-07-2015 End: 11-16-2015 take 1 puff(s) by inhalation once daily Fluticasone Propion-Salmeterol (Advair Diskus) 1 PUFF inhaler Discontinued 1 PUFF INHALATION DAILY October 07, 2015 1:00am November 16, 2015 6:15pm Start: 03-27-2014 End: 03-29-2014 take 1 puff(s) by inhalation once daily Fluticasone Propion-Salmeterol (Advair 250/50 Mcg Diskus) 1 PUFF inhaler Discontinued 1 PUFF INHALATION DAILY March 27, 2014 4:13am March 29, 2014 10:38am Start: 03-27-2014 End: 03-29-2014 take 1 puff(s) by inhalation once daily Fluticasone Propion-Salmeterol (Advair 250/50 Mcg Diskus) 1 PUFF inhaler Discontinued 1 NMA INHALATION DAILY March 27, 2014 12:00am March 29, 2014 10:38am Start: 03-27-2014 End: 03-29-2014 take 1 puff(s) by inhalation once daily Fluticasone Propion-Salmeterol (Advair 250/50 Mcg Diskus) 1 PUFF inhaler Discontinued 1 PUFF INHALATION DAILY March 26, 2014 11:00pm March 29, 2014 9:38am Start: 03-27-2014 End: 03-29-2014 take 1 puff(s) by inhalation once daily Fluticasone Propion-Salmeterol (Advair 250/50 Mcg Diskus) 1 PUFF inhaler Discontinued 1 PUFF INHALATION DAILY March 27, 2014 12:00am March 29, 2014 10:38am Start: 02-25-2014 ADVAIR DISKUS 250-50 MCG/DOSE AEPB once daily FLUTICASONE-SALMETEROL [id number] Ana Moraes Start: 09-16-2013 ADVAIR DISKUS 100-50 MCG/DOSE AEPB Take as Directed FLUTICASONE-SALMETEROL [id number] Bunny Verdin MD Start: 09-16-2013 ADVAIR DISKUS 250-50 MCG/DOSE AEPB inhale 1 puff once daily FLUTICASONE-SALMETEROL [id number] Bunny Verdin MD Start: 09-16-2013 ADVAIR DISKUS 250-50 MCG/DOSE AEPB inhale 1 puff twice daily FLUTICASONE-SALMETEROL [id number] Bunny Verdin MD glipiZIDE 5 mg oral tablet (20 sources) Sulfonylurea Start: 10-30-2015 End: 11-16-2015 take 2 tablets by mouth every twelve hours Glipizide 5 MG tablet Discontinued 10 mg PO Q12H October 30, 2015 7:48pm November 16, 2015 6:15pm Start: 10-30-2015 End: 11-16-2015 take 10 mg by mouth every twelve hours Glipizide Discontinued 10 MG PO Q12H October 30, 2015 7:48pm November 16, 2015 6:15pm Start: 10-10-2015 End: 10-30-2015 take 1 tablet by mouth twice daily before mealtime Glipizide 5 MG tablet Discontinued 5 mg PO TWICE DAILY BEFORE MEALS 30 0 October 10, 2015 1:00am October 30, 2015 7:48pm Start: 12-15-2010 End: 12-21-2011 take 1 tablet by mouth once daily GLIPIZIDE XL 10 MG [id number] One tablet by mouth daily GLIPIZIDE [id number] Fran Jewell MD Start: 12-15-2010 take 1 tablet by tomer th once daily GLIPIZIDE XL 10 MG [id number] One tablet by mouth daily GLIPIZIDE [id number] Adenike Morocho End: 05-18-2017 take 1 tablet by mouth twice daily GLIPIZIDE 10 MG TABS One tablet by mouth twice daily GLIPIZIDE [id number] Missy Guerra [employer] glyBURIDE 2.5 mg oral tablet (20 sources) Sulfonylurea Start: 03-27-2014 End: 09-03-2015 Glyburide 5 MG tablet Discontinued 1 {tbl} PO DAILY March 27, 2014 12:00am September 03, 2015 9:44am Start: 02-25-2013 End: 10-11-2015 take 1 tablet by mouth twice daily at mealtime Glyburide 2.5 MG tablet Discontinued 2.5 mg PO TWICE DAILY WITH MEALS October 07, 2015 1:00am October 10, 2015 12:05pm Start: 02-25-2013 End: 09-03-2015 take 1 tablet by mouth once daily Glyburide Discontinued 1 TABLET PO DAILY March 27, 2014 12:00am September 03, 2015 9:44am Start: 10-22-2012 take 1 tablet by tomer th twice daily GLYBURIDE 5 MG TABS One tablet by mouth twice daily GLYBURIDE [id number] Fran Jewell MD hydrALAZINE hydrochloride 50 mg oral tablet (20 sources) Arteriolar Vasodilator Start: 10-07-2015 End: 10-21-2016 take 1 tablet by mouth every eight hours Hydralazine 50 MG tablet Discontinued 50 mg PO Q8H 90 0 November 16, 2015 6:14pm October 21, 2016 4:54pm Start: 09-15-2015 End: 12-26-2016 take 1 tablet by mouth twice daily HYDRALAZINE HCL 50 MG TABS One tablet by mouth twice daily HYDRALAZINE HCL [id number] Bunny Verdin MD Start: 09-15-2015 take 1 tablet by tomer th three times daily HYDRALAZINE HCL 50 MG TABS One tablet by mouth three times daily HYDRALAZINE HCL [id number] Bunny Verdin MD Start: 08-24-2015 End: 09-03-2015 take 1 tablet by mouth every eight hours Hydralazine 50 MG tablet Discontinued 50 mg PO EVERY 8 HOURS August 24, 2015 1:00am September 03, 2015 9:45am INJECTION DEVICE FOR INSULIN (1 source) Start: 2018 INPEN [id number] KAYLEE total 28 units per day INJECTION DEVICE FOR INSULIN [id number] Liam Heath MD insulin detemir 100 unt/ml injectable solution (20 sources) Insulin Analogue Start: 07-13-2017 End: 10-09-2017 inject 12 [IU] by subcutaneous injection at bedtime Insulin Detemir U-100 100 UNIT/ML solution Discontinued 12 U SQ AT BEDTIME July 13, 2017 1:00am October 09, 2017 11:23am blood sugar Start: 05-18-2017 LEVEMIR FLEXTO UCH SOPN 12 units at bedtime INSULIN DETEMIR SOPN [id number] Bhavna Chiang PA-C Start: 08-24-2015 End: 09-03-2015 Insulin Detemir U-100 (Levem ir (Bk)) 100 UNITS/ML Insuln.Pen Discontinued 25 U SC AT BEDTIME August 24, 2015 1:00am September 03, 2015 9:42am Insulin Glargine 100 UNIT/ML solution (13 sources) Start: 11-24-2020 End: 01-21-2025 inject 10 [IU] by subcutaneous injection at bedtime Insulin Glargine 100 UNIT/ML solution Discontinued 10 U SQ AT BEDTIME November 24, 2020 12:00am January 21, 2025 8:03am DM SSI Start: 11-24-2020 End: 01-21-2025 inject 10 [IU] by subcutaneous injection at bedtime Insulin Glargine 100 UNIT/ML solution Discontinued 10 U SQ AT BEDTIME November 24, 2020 12:00am January 21, 2025 8:03am SSI Start: 11-24-2020 inject 10 [IU] by jarvis bcutaneous injection at bedtime Insulin Glargine 100 UNIT/ML solution Active 10 U SQ AT BEDTIME November 24, 2020 12:00am SSI insulin glargine,hum.rec.anlog (LANTUS SOLOSTAR U-100 INSULIN SUBCUTANEOUS) (8 sources) End: 03-27-2024 inject 10 [IU] by subcutaneous injection once daily at bedtime insulin glargine,hum.rec.anlog (LANTUS SOLOSTAR U-100 INSULIN SUBCUTANEOUS) Inject 10 Units subcutaneously daily at bedtime. 0 03/27/2024 Discontinued (Other) inject 10 [IU] by jarvis bcutaneous injection once daily at bedtime insulin glargine,hum.rec.anlog (LANTUS SOLOSTAR U-100 INSULIN SUBCUTANEOUS) Inject 10 Units subcutaneously daily at bedtime. 0 Suspended inject 10 [IU] by jarvis bcutaneous injection once daily at bedtime insulin glargine,hum.rec.anlog (LANTUS SOLOSTAR U-100 INSULIN SUBCUTANEOUS) Inject 10 Units subcutaneously daily at bedtime. 0 Active inject 12 [IU] by jarvis bcutaneous injection once daily at bedtime insulin glargine,hum.rec.anlog (LANTUS SOLOSTAR U-100 INSULIN SUBCUTANEOUS) Inject 12 Units subcutaneously daily at bedtime. 0 Active Comment on above: Inject 12 Units subc utaneously daily at bedtime. Inject 10 Units subc utaneously daily at bedtime. INSULIN LISPRO SOPN (1 source) Start: 05-18-2017 HUMALOG KWIKPEN SOPN 10 units for before breakfast and lunch, 12 units before dinner, sliding scale INSULIN LISPRO SOPN [id number] Bhavna Chiang PA-C ipratropium bromide 0.2 mg/ml inhalant solution (2 sources) Anticholinergic Start: 02-29-2016 End: 03-03-2016 IPRATROPIUM BROMIDE 0.02 % SOLN (Atrovent) Via nebulizer as directed IPRATROPIUM BROMIDE [id number] Maylin Thompson RN Lactobacillus acidophilus (20 sources) Start: 05-20-2018 End: 06-29-2020 Lactobacillus Acidophilus Discontinued 1 EACH PO TWICE A DAY May 20, 2018 7:21pm June 29, 2020 12:28pm Start: 05-20-2018 End: 06-29-2020 Lactobacillus Acidophilus Discontinued 1 EACH PO TWICE A DAY May 19, 2018 11:00pm June 29, 2020 11:28am Start: 05-20-2018 End: 06-29-2020 Lactobacillus Acidophilus Discontinued 1 EACH PO TWICE A DAY May 20, 2018 12:00am June 29, 2020 12:28pm take 1 capsule by mo ut twice daily LACTOBACILLUS ACIDOPHILUS ORAL Take 1 capsule by mouth twice daily. Active take 1 capsule by mo uth twice daily LACTOBACILLUS ACIDOPHILUS ORAL Take 1 capsule by mouth twice daily. 0 Active LACTOBACILLUS AC IDOPHILUS ORAL Take by mouth once daily. 0 Suspended LACTOBACILLUS AC IDOPHILUS ORAL Take by mouth once daily. 0 Active Comment on above: Take by mouth once d aily. Lactobacillus Acidophilus 1 EACH capsule (13 sources) Start: 05-20-2018 End: 06-29-2020 Lactobacillus Acidophilus 1 EACH capsule Discontinued 1 NMA PO TWICE A DAY May 20, 2018 12:00am June 29, 2020 12:28pm probiotic Start: 05-20-2018 End: 06-29-2020 Lactobacillus Acidophilus 1 EACH capsule Discontinued 1 NMA PO TWICE A DAY May 20, 2018 12:00am June 29, 2020 12:28pm levETIRAcetam 750 mg oral tablet (20 sources) Anti-epileptic Agent Start: 09-13-2015 End: 11-12-2015 take 1 tablet by mouth twice daily KEPPRA 750 MG TABS One tablet by mouth twice daily LEVETIRACETAM [id number] Missy Guerra LPN Start: 08-24-2015 End: 09-03-2015 Levetiracetam (Keppra) 750 M G tablet Discontinued 1 {tbl} PO TWICE A DAY August 24, 2015 1:00am September 03, 2015 9:45am Start: 08-24-2015 End: 09-03-2015 take 1 tablet by mouth twice daily Levetiracetam (Keppra) 750 MG tablet Discontinued 1 TABLET PO TWICE A DAY August 24, 2015 1:00am September 03, 2015 9:45am losartan potassium 50 mg oral tablet (20 sources) Angiotensin 2 Receptor Tiffany Start: 12-15-2020 End: 12-29-2020 take 1 tablet by mouth once daily Losartan 50 mg tablet Discontinued 50 mg PO DAILY 1 0 December 15, 2020 5:41pm December 29, 2020 11:25am Start: 2018 COZAAR 50 MG T ABS 1 tablet 2 x day LOSARTAN POTASSIUM [id number] Liam Heath MD Start: 05-20-2018 End: 12-15-2020 take 1 tablet by mouth twice daily Losartan 50 mg tablet Discontinued 50 mg PO TWICE A DAY 180 3 December 01, 2019 9:44am December 15, 2020 5:41pm Start: 01-07-2018 End: 05-06-2018 Losartan 100 mg tablet Disco ntinued 50 mg PO DAILY 90 3 January 07, 2018 4:06pm May 06, 2018 4:35pm blood pressure Start: 01-07-2018 End: 05-06-2018 take 50 mg by mouth once daily Losartan Discontinued 5 0 MG PO DAILY 90 January 07, 2018 4:06pm May 06, 2018 4:35pm Start: 11-16-2017 End: 01-07-2018 take 1 tablet by mouth once daily Losartan 100 mg tablet Discontinued 100 mg PO DAILY 90 3 November 16, 2017 9:36am January 07, 2018 4:06pm blood pressure Start: 07-15-2017 End: 11-16-2017 take 2 tablets by mouth once daily Losartan 50 MG tablet Discontinued 100 mg PO DAILY 180 3 October 09, 2017 11:17am November 16, 2017 9:37am blood pressure Start: 07-15-2017 End: 11-16-2017 take 100 mg by mouth once daily Losartan Discontinued 100 MG PO DAILY 180 October 09, 2017 11:17am November 16, 2017 9:37am Start: 07-13-2017 End: 07-15-2017 take 1 tablet by mouth once daily Losartan 50 MG tablet Discontinued 50 mg PO DAILY July 13, 2017 1:00am July 15, 2017 10:37am blood pressure Start: 09-13-2015 End: 09-15-2015 take 1 tablet by mouth once daily LOSARTAN POTASSIUM 50 MG TABS One tablet by mouth daily LOSARTAN POTASSIUM [id number] Bunny Verdin MD lovastatin 40 mg oral tablet (2 sources) HMG-CoA Reductase Inhibitor Start: 12-15-2010 End: 09-14-2011 take 1 tablet by mouth at bedtime LOVASTATIN 40 MG TABS One tablet by mouth at bedtime. LOVASTATIN [id number] Adenike Morocho Magnesium (20 sources) Start: 05-20-2018 End: 06-29-2020 take 400 mg by mouth twice daily Magnesium Discontinued 400 MG PO TWICE A DAY May 20, 2018 7:21pm June 29, 2020 12:27pm Start: 05-20-2018 End: 06-29-2020 take 2 tablets by mouth twice daily Magnesium 200 MG tablet Discontinued 400 mg PO TWICE A DAY May 20, 2018 12:00am June 29, 2020 12:27pm supplement Start: 05-20-2018 End: 06-29-2020 take 2 tablets by mouth twice daily Magnesium 200 MG tablet Discontinued 400 mg PO TWICE A DAY May 20, 2018 12:00am June 29, 2020 12:27pm Start: 05-20-2018 End: 06-29-2020 take 400 mg by mouth twice daily Magnesium Discontinued 400 MG PO TWICE A DAY May 19, 2018 11:00pm June 29, 2020 11:27am Start: 05-20-2018 End: 06-29-2020 take 400 mg by mouth twice daily Magnesium Discontinued 400 MG PO TWICE A DAY May 20, 2018 12:00am June 29, 2020 12:27pm Start: 10-07-2015 End: 11-16-2015 take 400 mg by mouth twice daily Magnesium Discontinued 400 MG PO TWICE A DAY October 07, 2015 1:34pm November 16, 2015 6:15pm Start: 10-07-2015 End: 11-16-2015 take 2 tablets by mouth twice daily Magnesium 200 MG tablet Discontinued 400 mg PO TWICE A DAY October 07, 2015 1:00am November 16, 2015 6:15pm Start: 10-07-2015 End: 11-16-2015 take 400 mg by mouth twice daily Magnesium Discontinued 400 MG PO TWICE A DAY October 07, 2015 12:00am November 16, 2015 5:15pm Start: 10-07-2015 End: 11-16-2015 take 400 mg by mouth twice daily Magnesium Discontinued 400 MG PO TWICE A DAY October 07, 2015 1:00am November 16, 2015 6:15pm magnesium oxide 400 mg oral capsule (20 sources) Start: 02-01-2022 End: 05-29-2023 Magnesium Oxide 400 mg magne sium capsule Discontinued 200 mg PO TWICE A DAY February 01, 2022 10:52am May 29, 2023 1:30pm supplement Start: 02-01-2022 End: 05-29-2023 take 200 mg by mouth twice daily Magnesium Oxide Discontinued 200 MG PO TWICE A DAY February 01, 2022 10:52am May 29, 2023 1:30pm Start: 01-19-2022 End: 02-01-2022 take 1 capsule by mouth twice daily Magnesium Oxide 400 mg magnesium capsule Discontinued 400 mg PO TWICE A DAY January 19, 2022 1:07pm February 01, 2022 10:53am supplement Start: 12-12-2021 End: 01-19-2022 take 1 capsule by mouth once daily Magnesium Oxide 400 mg magnesium capsule Discontinued 400 mg PO DAILY December 12, 2021 3:22pm January 19, 2022 1:13pm supplement Start: 11-24-2020 End: 12-12-2021 take 1 capsule by mouth twice daily Magnesium Oxide 400 MG capsule Discontinued 400 mg PO TWICE A DAY November 24, 2020 12:00am December 12, 2021 3:22pm supplement Start: 2018 MAGNESIUM 400 MG CAPS 1 capsule daily MAGNESIUM OXIDE Liam Heath MD Start: 05-26-2015 take 1 tablet by tomer th twice daily MAGNESIUM OXIDE 400 MG TABS One tablet by mouth twice daily MAGNESIUM OXIDE [id number] Bhavna Chiang PA-C Start: 10-06-2014 End: 07-02-2015 take 1 tablet by mouth once daily MAG-200 TABS One tablet by mouth daily MAGNESIUM OXIDE TABS [id number] Maylin Thompson RN Start: 10-06-2014 take 1 tablet by tomer th once daily MAG-200 TABS One tablet by mouth daily MAGNESIUM OXIDE TABS [id number] Bunny Verdin MD Start: 06-06-2012 take 200 mg by mouth once yessi y MAG-OXIDE 400 MG TABS 200mg One tablet by mouth daily MAGNESIUM OXIDE [id number] Filipe Kowalski RN Start: 06-06-2012 End: 09-16-2013 take 1 tablet by mouth once daily MAG-OXIDE 400 MG TABS One tablet by mouth daily MAGNESIUM OXIDE [id number] Bunny Verdin MD metFORMIN hydrochloride 500 mg oral tablet (20 sources) Biguanide Start: 01-19-2022 End: 03-24-2022 take 2 tablets by mouth once daily Metformin 500 mg tablet Discontinued 1000 mg PO DAILY January 19, 2022 12:00am March 24, 2022 12:59pm Start: 01-19-2022 End: 03-24-2022 take 1000 mg by mouth once daily Metformin Discontinue d 1000 MG PO DAILY January 19, 2022 12:00am March 24, 2022 12:59pm Start: 07-02-2021 take 1 tablet by tomer th once daily at breakfast metFORMIN ER (GLUCOPHAGE XR) 500 mg 24 hr tablet Take 500 mg by mouth daily with breakfast. 0 07/02/2021 Active Start: 06-29-2020 End: 09-23-2021 Metformin 500 mg tablet exte nded release 24 hr Discontinued 1000 mg PO WITH DINNER June 29, 2020 12:29pm September 23, 2021 2:09pm DM Start: 06-29-2020 End: 09-23-2021 take 1000 mg by mouth at dinner Metformin Discontinued 1000 MG PO WITH DINNER June 29, 2020 12:29pm September 23, 2021 2:09pm Start: 03-21-2020 End: 06-29-2020 take 1 tablet by mouth every twenty-four hours at dinner Metformin 500 MG tablet extended release 24 hr Discontinued 500 mg PO WITH DINNER March 21, 2020 12:00am June 29, 2020 12:29pm DM Start: 03-21-2020 End: 06-29-2020 take 500 mg by mouth at dinner Metformin Discontinued 500 MG PO WITH DINNER March 21, 2020 12:00am June 29, 2020 12:29pm Start: 03-12-2012 take 0.5 tablet by m out twice daily [id number] MG TABS (METFORMIN HCL) 1/2 tablet by mouth twice daily Fran Jewell MD Start: 09-14-2011 take 1 tablet by tomer th twice daily [id number] MG TABS (METFORMIN HCL) One tablet by mouth twice daily Fran Jewell MD Start: 12-15-2010 End: 05-18-2017 take 1 tablet by mouth twice daily at mealtime Metformin 500 MG tablet Discontinued 500 mg PO TWICE DAILY WITH MEALS October 07, 2015 1:00am October 10, 2015 12:05pm Comment on above: Take 1,000 mg by tomer th daily with breakfast. Take 500 mg by mouth daily with breakfast. methocarbamol 500 mg oral tablet (20 sources) Muscle Relaxant Start: 05-23-20 End: 05-29-20 take 1 tablet by mouth four times daily as needed for pain Methocarbamol 500 mg tablet Discontinued 500 mg PO 4 TIMES DAILY NEEDED as needed for Muscle pain/spasm 40 0 May 23, 2023 1:30am May 29, 2023 1:30pm metOLazone 2.5 mg oral tablet (20 sources) Thiazide-like Diuretic Start: 11-30-19 End: 12-01-19 take 1 tablet by mouth every other day Metolazone 2.5 mg tablet Discontinued 2.5 mg PO every other day November 29, 2020 12:00am November 30, 2020 1:09pm one time a week 120 actuat mometasone furoate 0.2 mg/actuat metered dose inhaler (20 sources) Corticosteroid Start: 01-20-20 End: 03-19-20 24 Mometasone (Asmanex Hfa) 200 mcg/actuation HFA aerosol inhaler Discontinued 2 NMA INHALATION TWICE A DAY January 19, 2022 12:00am March 19, 2024 2:34pm Start: 01-19-2022 take 1 puff(s) by in halation twice daily Mometasone (Asmanex Hfa) 200 mcg/actuation HFA aerosol inhaler Active 2 PUFF INHALATION TWICE A DAY January 19, 2022 12:00am Start: 12-15-2010 End: 09-16-2013 ASMANEX 120 METERED DOSES 22 0 MCG/INH AEPB Take as directed MOMETASONE FUROATE [id number] Bunny Verdin MD take 2 puff(s) by in halation once daily mometasone (ASMANEX HFA) 200 mcg/actuation HFA Inhale 2 Puffs as instructed once daily. Active mometasone (ASMA NEX HFA) 200 mcg/actuation HFA Inhale as instructed. 0 Active Comment on above: Inhale as instructed . Inhale 2 Puffs as in structed once daily. MULTIPLE MINERALS-VITAMINS (2 sources) Start: 09-16-2013 take 1 tablet by mouth once daily CITRACAL PLUS TABS w/ magnesium One tablet by mouth daily MULTIPLE MINERALS-VITAMINS [id number] Bunny Verdin MD Start: 09-16-2013 End: 03-24-2014 take 1 tablet by mouth once daily CITRACAL PLUS TABS w/ magnesium One tablet by mouth daily MULTIPLE MINERALS-VITAMINS [id number] Bhavna Chiang PA-C MULTIPLE VITAMIN (1 source) Start: 12-15-2010 take 1 tablet by mouth once daily MULTIVITAMINS TABS One tablet by mouth daily MULTIPLE VITAMIN [id number] Adenike Morocho MULTIPLE VITAMIN (1 source) Start: 02-25-2014 MULTIVITAMINS CAPS 1 capsue once daily MULTIPLE VITAMIN [id number] Esperanza Marvin LPN Multivitamin With Folic Acid (Thera) 1 TABLET tablet (20 sources) Start: 10-07-2015 End: 11-16-2015 take 1 tablet by mouth once daily Multivitamin With Folic Acid (Thera) 1 TABLET tablet Discontinued 1 TABLET PO DAILY October 07, 2015 1:34pm November 16, 2015 6:13pm Start: 10-07-2015 End: 11-16-2015 take 1 tablet by mouth once daily Multivitamin With Folic Acid (Thera) 1 TABLET tablet Discontinued 1 {tbl} PO DAILY October 07, 2015 1:00am November 16, 2015 6:13pm Start: 10-07-2015 End: 11-16-2015 take 1 tablet by mouth once daily Multivitamin With Folic Acid (Thera) 1 TABLET tablet Discontinued 1 TABLET PO DAILY October 07, 2015 12:00am November 16, 2015 5:13pm Start: 10-07-2015 End: 11-16-2015 take 1 tablet by mouth once daily Multivitamin With Folic Acid (Thera) 1 TABLET tablet Discontinued 1 TABLET PO DAILY October 07, 2015 1:00am November 16, 2015 6:13pm 24 hr NIFEdipine 60 mg extended release oral tablet (4 sources) Dihydropyridine Calcium Channel Tiffany Start: 05-29-2013 End: 09-15-2015 take 1 tablet by mouth twice daily NIFEDIPINE ER 60 MG [id number] One tablet by mouth twice daily NIFEDIPINE [id number] Bhavna Chiang PA-C Start: 12-15-2010 End: 02-25-2013 take 1 tablet by mouth twice daily NIFEDIPINE ER 60 MG [id number] One tablet by mouth twice daily NIFEDIPINE [id number] Bunny Verdin MD [place]-3 Fatty Acids-Fish Oil 1 EACH capsule (13 sources) Start: 05-20-2018 End: 11-03-2024 Troy-3 Fatty Acids-Fish Oil 1 EACH capsule Discontinued 1 NMA PO DAILY May 20, 2018 12:00am November 03, 2024 1:01pm supplement Start: 05-20-2018 End: 11-03-2024 Troy-3 Fatty Acids-Fish Oil 1 EACH capsule Discontinued 1 NMA PO DAILY May 20, 2018 12:00am November 03, 2024 1:01pm omeprazole 40 mg delayed release oral capsule (20 sources) Proton Pump Inhibitor Start: 02-11-2022 End: 09-17-2024 take 1 capsule by mouth once daily Omeprazole 40 mg capsule,delayed release(DR/EC) Discontinued 40 mg PO DAILY 90 3 September 04, 2023 11:57am September 17, 2024 3:40pm Patient going out of state for 3 months Start: 10-07-2015 End: 11-16-2015 take 1 capsule by mouth once daily Omeprazole 20 MG capsule Discontinued 20 mg PO DAILY October 07, 2015 1:00am November 16, 2015 6:13pm Start: 02-25-2013 take 1 tablet by [facility] twice daily OMEPRAZOLE 20 MG CPDR One tablet by mouth twice daily OMEPRAZOLE [id number] Marie Candelario RN Start: 06-04-2012 End: 05-29-2013 take 1 tablet by mouth once daily OMEPRAZOLE 20 MG CPDR One tablet by mouth daily OMEPRAZOLE [id number] Bunny Verdin MD Comment on above: Take 40 mg by mouth once daily. pantoprazole 40 mg delayed release oral tablet (20 sources) Proton Pump Inhibitor Start: 5 End: 6 take 1 tablet by mouth once daily Pantoprazole 40 MG tablet Discontinued 40 mg PO DAILY August 24, 2015 1:00am September 03, 2015 9:45am PARoxetine hydrochloride 10 mg oral tablet (20 sources) Serotonin Reuptake Inhibitor Start: 8 End: 8 take 2 tablets by mouth at bedtime Paroxetine Hcl 10 MG tablet Discontinued 20 mg PO AT BEDTIME May 20, 2018 12:00am August 09, 2018 3:32pm Start: 05-20-2018 End: 08-09-2018 take 20 mg by mouth at bedtime Paroxetine Hcl Disconti nued 20 MG PO AT BEDTIME May 20, 2018 12:00am August 09, 2018 3:32pm Start: 11-16-2017 End: 03-20-2018 take 1 tablet by mouth once daily Paroxetine Hcl (Paxil) 20 mg tablet Discontinued 20 mg PO daily 30 February 18, 2018 10:49am March 20, 2018 3:10pm pioglitazone 45 mg oral tablet (5 sources) Peroxisome Proliferator Receptor alpha Agonist, Peroxisome Proliferator Receptor gamma Agonist, Thiazolidinedione Start: 04-07-2015 End: 09-15-2015 take 1 tablet by mouth once daily ACTOS 45 MG TABS One tablet by mouth daily PIOGLITAZONE HCL [id number] Bhavna Chiang PA-C Start: 09-14-2011 End: 03-24-2014 take 1 tablet by mouth once daily ACTOS 45 MG TABS (PIOGLITAZONE HCL) One tablet by mouth daily ACTOS 45 MG TABS (PIOGLITAZONE HCL) Bhavna Chiang PA-C Start: 12-15-2010 take 1 tablet by [facility] once daily ACTOS 30 MG TABS One tablet by mouth daily PIOGLITAZONE HCL [id number] Adenike Morocho potassium chloride 20 meq extended release oral tablet (10 sources) Start: 11-24-2024 End: 12-12-2024 take 1 tablet by mouth once daily Potassium Chloride 20 mEq tablet extended release Discontinued 20 meq PO daily 90 November 24, 2024 12:00am December 12, 2024 1:39pm pravastatin sodium 80 mg oral tablet (4 sources) HMG-CoA Reductase Inhibitor Start: 02-25-2014 PRAVASTATIN SODIUM 80 MG TABS 1 tablet once daily PRAVASTATIN SODIUM [id number] Esperanza Marvin LPN Start: 09-14-2011 PRAVACHOL 80 M G TABS 06/25/15 HOLD for 1 week and call (one by mouth at bed time) PRAVASTATIN SODIUM [id number] Marie Candelario RN predniSONE 20 mg oral tablet (20 sources) Corticosteroid Start: 11-10-2024 End: 01-21-2025 take 1 tablet by mouth twice daily Prednisone 20 mg tablet Discontinued 20 mg PO TWICE A DAY 10 0 November 10, 2024 12:00am January 21, 2025 8:02am Start: 11-03-2017 End: 11-10-2017 take 1 tablet by mouth once daily at mealtime Prednisone 20 mg tablet Discontinued 20 mg PO .COMPLEX 10 7 0 November 03, 2017 1:00am November 09, 2017 12:00am November 10, 2017 12:11am 20 mg PO 2 pills daily x 3 days, then 1 pill daily x 4 days; administer with food or milk Start: 02-25-2013 End: 05-29-2013 take 1 tablet by mouth once daily PREDNISONE 10 MG TABS One tablet by mouth daily PREDNISONE [id number] Bunny Verdin MD PROBIOTIC PRODUCT (1 source) take 1 tablet by mouth twice daily PROBIOTIC DAILY CAPS One tablet by mouth twice daily PROBIOTIC PRODUCT [id number] Rachid Malone DO PROBIOTIC PRODUCT (1 source) Start: 10-03-19 19 ACIDOPHILUS PEARLS CAPS 1 capsule 2 x day PROBIOTIC PRODUCT [id number] Liam Heath MD spironolactone 25 mg oral tablet (20 sources) Aldosterone Antagonist Start: 11-29-19 End: 04-04-20 Spironolactone 25 mg tablet Discontinued 12.5 mg PO DAILY November 28, 2022 1:38pm April 04, 2023 3:35pm Start: 11-28-2022 End: 04-04-2023 take 12.5 mg by mouth once daily Spironolactone Discontinued 12.5 MG PO DAILY November 28, 2022 1:38pm April 04, 2023 3:35pm Start: 11-28-2022 End: 11-28-2022 Spironolactone 25 mg tablet Discontinued 12.5 mg PO EVERY OTHER DAY November 28, 2022 1:23pm November 28, 2022 1:38pm Start: 11-28-2022 End: 11-28-2022 take 12.5 mg by mouth every other day Spironolactone Discontinued 12.5 MG PO EVERY OTHER DAY November 28, 2022 1:23pm November 28, 2022 1:38pm Start: 04-05-2022 End: 11-28-2022 take 1 tablet by mouth every other day Spironolactone 25 mg tablet Discontinued 25 mg PO EVERY OTHER DAY 90 April 05, 2022 12:36pm November 28, 2022 1:24pm Start: 02-06-2022 End: 03-26-2024 take 1 tablet by mouth once daily Spironolactone 25 mg tablet Discontinued 25 mg PO DAILY 90 April 04, 2023 3:35pm March 19, 2024 3:01pm Dose increased from 12.5 mg to 25 mg daily Start: 10-07-2015 End: 10-10-2015 Spironolactone 25 MG tablet Discontinued 12.5 mg PO DAILY October 07, 2015 1:00am October 10, 2015 12:06pm Start: 10-07-2015 End: 10-10-2015 take 12.5 mg by mouth once daily Spironolactone Discontinued 12.5 MG PO DAILY October 07, 2015 1:00am October 10, 2015 12:06pm Start: 09-13-2015 End: 10-11-2015 take 1 tablet by mouth once daily SPIRONOLACTONE 25 MG TABS One half tablet by mouth daily SPIRONOLACTONE [id number] Melonie Tello RN Start: 08-24-2015 End: 09-03-2015 take 12.5 mg by mouth once daily Aldactone Discontinued 12.5 MG PO DAILY August 24, 2015 12:56pm September 03, 2015 9:43am Start: 08-24-2015 End: 09-03-2015 take 12.5 mg by mouth once daily Aldactone Discontinued 12.5 mg PO DAILY August 24, 2015 1:00am September 03, 2015 9:43am Start: 08-24-2015 End: 09-03-2015 take 12.5 mg by mouth once daily Aldactone Discontinued 12.5 MG PO DAILY August 24, 2015 12:00am September 03, 2015 8:43am Start: 08-24-2015 End: 09-03-2015 take 12.5 mg by mouth once daily Aldactone Discontinued 12.5 MG PO DAILY August 24, 2015 1:00am September 03, 2015 9:43am Comment on above: Take 25 mg by mouth once daily. tiotropium 0.018 mg inhalation powder (20 sources) Anticholinergic Start: 03-09-20 take 1 capsule by inhalation once daily tiotropium (SPIRIVA WITH HANDIHALER) 18 mcg INHALATION inhalation capsule Inhale 18 mcg as instructed once daily. 0 03/09/2022 Active Start: 05-20-2018 take 1 capsule by in halation twice daily Tiotropium [facility] (Spiriva With Handihaler) 18 MCG capsule, w/inhalation device Active 18 MCG IH TWICE A DAY May 20, 2018 12:00am Start: 05-20-2018 take 18 ug by inhala tion twice daily Tiotropium [facility] Active 18 MCG IH TWICE A DAY May 20, 2018 12:00am Start: 10-07-2015 End: 11-16-2015 take 1 puff(s) by inhalation once daily Tiotropium [facility] (Spiriva With Handihaler) 1 PUFF inhaler Discontinued 1 NMA INHALATION DAILY October 07, 2015 1:00am November 16, 2015 6:15pm Start: 10-07-2015 End: 11-16-2015 take 1 puff(s) by inhalation once daily Tiotropium [facility] (Spiriva With Handihaler) 1 PUFF inhaler Discontinued 1 PUFF INHALATION DAILY October 07, 2015 1:00am November 16, 2015 6:15pm Start: 12-15-2010 SPIRIVA HANDIH ALER 18 MCG CAPS once daily TIOTROPIUM BROMIDE MONOHYDRATE [id number] Ana Moraes Comment on above: inhale once daily Inhale 18 mcg as ins tructed once daily. Tiotropium [facility] (Spiriva With Handihaler) 18 MCG capsule, w/inhalation device (14 sources) Start: 05-20-2018 End: 12-25-2023 Tiotropium [facility] (Spiriva With Handihaler) 18 MCG capsule, w/inhalation device Discontinued 18 ug IH TWICE A DAY May 20, 2018 12:00am December 25, 2023 12:52am congestion Start: 05-20-2018 End: 12-25-2023 Tiotropium [facility] (Spiriva With Handihaler) 18 MCG capsule, w/inhalation device Discontinued 18 ug IH TWICE A DAY May 20, 2018 12:00am December 25, 2023 12:52am Start: 05-20-2018 End: 12-25-2023 take 1 capsule by inhalation twice daily Tiotropium [facility] (Spiriva With Handihaler) 18 MCG capsule, w/inhalation device Discontinued 18 MCG IH TWICE A DAY May 20, 2018 12:00am December 25, 2023 12:52am traMADol hydrochloride 50 mg oral tablet (20 sources) Opioid Agonist Start: 07-11-2023 End: 07-21-2023 take 1 tablet by mouth every six hours as needed for pain Tramadol 50 mg tablet Discontinued 50 mg PO EVERY 6 HOURS as needed for pain 40 10 0 July 11, 2023 1:00am July 20, 2023 1:00am July 21, 2023 1:26am Start: 05-29-2023 End: 12-25-2023 take 1 tablet by mouth twice daily as needed Tramadol 50 mg tablet Discontinued 50 mg PO TWICE A DAY as needed May 29, 2023 12:00am December 25, 2023 12:52am Start: 08-24-2015 End: 09-03-2015 take 1 tablet by mouth twice daily as needed for pain Tramadol 50 MG tablet Discontinued 50 mg PO TWICE A DAY as needed for Pain August 24, 2015 1:00am September 03, 2015 9:45am valsartan 160 mg oral tablet (4 sources) Angiotensin 2 Receptor Tiffany Start: 04-07-2015 End: 09-13-2015 take 1 tablet by mouth once daily DIOVAN 160 MG TABS One tablet by mouth daily VALSARTAN [id number] Bhavna Chiang PA-C Start: 02-25-2013 End: 05-29-2013 take 1 tablet by mouth once daily DIOVAN 160 MG TABS One tablet by mouth daily VALSARTAN [id number] Bhavna Chiang PA-C vitamin d 1000 unt oral tablet (1 source) Start: 12-26-2016 take 1 tablet by mouth once daily VITAMIN D 1000 UNIT TABS One tablet by mouth daily CHOLECALCIFEROL [id number] Bunny Verdin MD warfarin sodium 5 mg oral tablet (13 sources) Vitamin K Antagonist Start: 11-16-2011 COUMADIN 1 MG TABS Current dose 6 mg a day WARFARIN SODIUM [id number] Marie Candelario RN Start: 08-08-2011 End: 09-15-2015 COUMADIN 5 MG TABS Take as d irected WARFARIN SODIUM [id number] Ana Luisa Ford RN Start: 08-01-2011 End: 09-16-2013 COUMADIN 1 MG TABS Take as d irected-current dose 5 mg Sat thru Tues, 6 mg Sun-Sun WARFARIN SODIUM [id number] Fran Jewell MD Problems Active Problems Problem Classification Problem Date Documented Date Episodic/Chronic Abdominal pain (20 sources) Abdominal pain; 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: [Unspecified abdominal pain] Episodic Acute and unspecified renal failure (1 source) Renal failure syndrome; 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: [Disorder of kidney and ureter, unspecified] Onset: 7 05-29-2017 Chronic Acute and unspecified renal failure (20 sources) Injury of kidney; 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: [Acute kidney failure, unspecified] Episodic Cancer of prostate (10 sources) Malignant tumor of prostate; 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: [Malignant neoplasm of prostate] Onset: 7 06-04-2007 Chronic Cardiac arrest and ventricular fibrillation (20 sources) Cardiac arrest due to cardiac disorder; 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: [Ventricular fibrillation] Onset: 6 Resolved: 3 09-13-2015 Chronic Cardiac dysrhythmias (20 sources) Ventricular premature beats; 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: [Atrial fibrillation] Onset: 1 12-15-2010 Chronic Chronic kidney disease (20 sources) Anemia of renal disease; 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: [Chronic kidney disease, unspecified] Onset: 8 01-23-2018 Chronic Chronic kidney disease (1 source) Chronic kidney disease; 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: [Chronic kidney disease, stage 3a] Onset: 5 Complication of device; implant or graft (20 sources) Infection and inflammatory reaction due to other cardiac and vascular devices, implants and grafts, sequela; 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: [Infection and inflammatory reaction due to other cardiac and vascular devices, implants and grafts, subsequent encounter] Onset: 6 Resolved: 3 11-16-2015 Episodic Conditions associated with dizziness or vertigo (20 sources) Dizziness and giddiness; 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: [Dizziness] Onset: 1 Resolved: 6 06-02-2016 Episodic Conduction disorders (20 sources) Left bundle branch block; 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: [Automatic implantable cardiac defibrillator in situ] Onset: 1 Resolved: 3 12-15-2010 Chronic Comment on above: ICD Implant for out of hospital V. 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; 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: [Coronary arteriosclerosis] Onset: 1 06-02-2016 Chronic Crushing injury or internal injury (2 sources) Crushing injury of wrist; 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: [Crushing injury of hand] Onset: 9 2018 Episodic Deficiency and other anemia (2 sources) Anemia, unspecified; 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: [Anemia, unspecified] Onset: 5 Episodic Diabetes mellitus with complications (20 sources) Peripheral circulatory disorder associated with type 2 diabetes mellitus; 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: [Insulin treated type 2 diabetes mellitus] Onset: 1 12-15-2010 Chronic Diabetes mellitus without complication (20 sources) Type 2 diabetes mellitus; 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: [Diabetes mellitus without mention of complication, type II or unspecified type, not stated as uncontrolled] Onset: 0 08-09-2010 Chronic Disorders of lipid metabolism (20 sources) Hyperlipidemia; 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: [Hyperlipidemia, unspecified] Onset: 0 12-15-2010 Chronic Diverticulosis and diverticulitis (20 sources) Diverticulitis; 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: [Diverticulitis of intestine, part unspecified, without perforation or abscess without bleeding] Chronic Esophageal disorders (9 sources) Gastroesophageal reflux disease without esophagitis; 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: [Gastro-esophageal reflux disease without esophagitis] Onset: 0 01-23-2018 Chronic Essential hypertension (20 sources) Hypertensive disorder; 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: [Essential hypertension] Onset: 0 12-15-2010 Chronic Heart valve disorders (1 source) Mitral valve prolapse; 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: [Nonrheumatic mitral (valve) prolapse] Onset: 1 12-15-2010 Chronic Hyperplasia of prostate (9 sources) Benign prostatic hyperplasia; 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: [Benign prostatic hyperplasia without lower urinary tract symptoms] Onset: 4 11-07-2013 Chronic Hypertension with complications and secondary hypertension (1 source) Hypertensive chronic kidney disease with stage 1 through stage 4 chronic kidney disease, or unspecified chronic kidney disease; 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: [Hypertensive chronic kidney disease with stage 1 through stage 4 chronic kidney disease, or unspecified chronic kidney disease] Onset: 5 Chronic Influenza (12 sources) Influenza due to Influenza A virus; 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: [Influenza due to other identified influenza virus with other respiratory manifestations] 11-10-2024 Episodic Malaise and fatigue (20 sources) Malaise; 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: [Other malaise] 09-05-2021 Episodic Nonspecific chest pain (20 sources) Chest discomfort; 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: [Chest pain] Onset: 5 Resolved: 6 05-25-2015 Episodic Nutritional deficiencies (1 source) Iron deficiency; 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: [Iron deficiency] Onset: 6 12-28-2015 Chronic Occlusion or stenosis of precerebral arteries (20 sources) Left carotid artery stenosis; 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: [Occlusion [...] sequela] Onset: 9 2018 Chronic Other aftercare (20 sources) Long-term current use of anticoagulant; 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: [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 (current) use of anticoagulants] Onset: 6 Resolved: 4 03-28-2018 Episodic Other aftercare (1 source) Wound finding; 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: [Encounter for other specified aftercare] Episodic Other aftercare (1 source) 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 (current) use of anticoagulants; 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: [Anticoagulant long-term use] Onset: 5 Episodic Other bone disease and musculoskeletal deformities (9 sources) Absence of hand; 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] Onset: 7 01-23-2018 Chronic Other circulatory disease (20 sources) Carotid bruit; 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: [History of endocarditis] Onset: 6 04-12-2017 Episodic Other circulatory disease (20 sources) History of endocarditis; 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: [Personal history of other diseases of the circulatory system] Onset: 6 01-23-2018 Episodic Other circulatory disease (20 sources) H/O ventricular fibrillation; 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: [Personal history of other diseases of the circulatory system] 03-21-2020 Episodic Other circulatory disease (18 sources) Other specified symptoms and signs involving the circulatory and respiratory systems; 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: [Other symptoms involving cardiovascular system] Episodic Other circulatory disease (7 sources) H/O: cardiovascular disease; 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: [Personal history of sudden cardiac arrest] Onset: 2 03-08-2022 Episodic Other circulatory disease (20 sources) Elevated blood-pressure reading without diagnosis of hypertension; 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: [Elevated blood-pressure reading, without diagnosis of hypertension] 09-13-2022 Episodic Other ear and sense organ disorders (4 sources) Hearing loss; 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: [Unspecified hearing loss, unspecified ear] Onset: 2 03-17-2022 Chronic Other ear and sense organ disorders (4 sources) Sensorineural hearing loss, bilateral; 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: [Sensorineural hearing loss, bilateral] Onset: 2 03-17-2022 Chronic Other eye disorders (20 sources) H/O: Bilateral cataract extraction; 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: [Cataract extraction status, right eye] 02-14-2021 Episodic Other gastrointestinal disorders (20 sources) Dark stools; 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: [Other fecal abnormalities] 01-10-2022 Episodic Other hereditary and degenerative nervous system conditions (19 sources) Impaired cognition; 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: [Mild cognitive impairment, so stated] 07-01-2024 Chronic Comment on above: Patient was referred for mild cognitive impairment. Mini- Mental status score is 25/30 which is at the lower limits of normal. 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 It is stable since in my opinion. This is also been documented by repeat MRI and CT scan reports. 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 Patient was referred for mild cognitive impairment. Mini-Mental status score is 25/30 which is at the lower limits of normal. 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 It is stable since in my opinion. This is also been documented by repeat MRI and CT scan reports. 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 6-month follow-up.At this time patient is doing well. Correction of diabetic control, some weight loss, improved hearing aid function appears to have improved his overall performance.Patient appears to be stable from mild cognitive impairment point of view. I will make no further changes at this time. I still advised the patient not drive. Other hereditary and degenerative nervous system conditions (1 source) Mild cognitive impairment, so stated; 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: [Mild cognitive impairment of uncertain or unknown etiology] Onset: 4 Chronic Other injuries and conditions due to external causes (20 sources) Muscle strain; 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: [Other injury of unspecified body region, initial encounter] 05-20-2023 Episodic Other injuries and conditions due to external causes (5 sources) Other injury of unspecified body region, initial encounter; 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: [Unspecified site of sprain and strain] 05-20-2023 Episodic Other lower respiratory disease (2 sources) Pulmonary congestion ; 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: [Other specified symptoms and signs involving the circulatory and respiratory systems] Onset: 6 Resolved: 7 12-26-2016 Chronic Other lower respiratory disease (20 sources) Dyspnea; 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: [Dyspnea, unspecified] Onset: 1 Resolved: 6 06-02-2016 Episodic Other lower respiratory disease (20 sources) Hypoxia; 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: [Hypoxemia] 01-12-2022 Episodic Other lower respiratory disease (9 sources) Hypoxemia; 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: [Hypoxemia] Episodic Other nutritional; endocrine; and metabolic disorders (2 sources) Hypomagnesemia; 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: [Hypomagnesemia] Onset: 5 02-12-2017 Chronic Lakshmi-; endo-; and myocarditis; cardiomyopathy (20 sources) Cardiomyopathy in diseases classified elsewhere; 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: [Primary idiopathic hypertrophic cardiomyopathy] Onset: 1 12-15-2010 Chronic Residual codes; unclassified (9 sources) Obstructive sleep apnea syndrome; 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: [Obstructive sleep apnea (adult) (pediatric)] 01-23-2018 Chronic Residual codes; unclassified (20 sources) Postoperative state; 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: [Other specified postprocedural states] 09-05-2021 Episodic Residual codes; unclassified (4 sources) At risk of hemorrhage; 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: [Other specified personal risk factors, not elsewhere classified] Onset: 4 03-29-2024 Episodic Spondylosis; intervertebral disc disorders; other back problems (20 sources) Displacement of lumbar intervertebral disc without myelopathy; 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: [Other intervertebral disc displacement, lumbar region] 07-11-2023 Chronic Spondylosis; intervertebral disc disorders; other back problems (20 sources) Chronic low back pain; 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: [Chronic low back pain] Onset: 6 01-23-2018 Episodic Sprains and strains (20 sources) Lower back injury; 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: [Strain of muscle, fascia and tendon of lower back, initial encounter] 05-23-2023 Episodic Thyroid disorders (15 sources) Acquired hypothyroidism; 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: [Hypothyroidism] Onset: 2 05-29-2017 Chronic Unclassified (1 source) Long-term drug therapy; 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: [Other group home (current) drug therapy] Onset: 1 12-15-2010 Unclassified (1 source) Unknown / UNK(Unknown) Onset: 7 Unclassified (1 source) Other persistent atrial fibrillation; 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: [Persistent atrial fibrillation (HCC)] Onset: 8 Unclassified (1 source) Other specified cough; 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: [Other specified cough] Onset: 5 Unclassified (1 source) Cough, unspecified; 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: [Cough, unspecified] Onset: 5 Viral infection (1 source) COVID-19; 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: [COVID-19] Onset: 4 Past or Other Problems Problem Classification Problem Date Documented Date Episodic/Chronic Anal and rectal conditions (9 sources) Disorder of large intestine; 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: [Other specified diseases of anus and rectum] Onset: 02-19-2012 02-19-2012 Episodic Bacterial infection (10 sources) Infection due to enterococcus; 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: [Infection due to Streptococcus group D] Onset: 11-15-2015 11-16-2015 Episodic Calculus of urinary tract (20 sources) Kidney stone; 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: [Calculus of kidney] Onset: 08-09-2010 Episodic Cancer of prostate (9 sources) History of malignant neoplasm of prostate; 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: [Personal history of malignant neoplasm of prostate] Onset: 08-27-2002 01-23-2018 Episodic Cancer; other and unspecified primary (1 source) Malignant pericardial effusion; 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: [Pericardial effusion (noninflammatory)] Onset: 12-15-2010 12-15-2010 Episodic Congestive heart failure; nonhypertensive (2 sources) Systolic dysfunction; 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: [Other ill-defined heart diseases] Onset: 09-13-2015 Resolved: 06-02-2016 06-02-2016 Episodic Deficiency and other anemia (1 source) Anemia; 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: [Anemia, unspecified] Onset: 12-22-2015 12-22-2015 Episodic Fluid and electrolyte disorders (1 source) Hypokalemia; 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: [Hypokalemia] Onset: 12-15-2010 12-15-2010 Episodic Genitourinary symptoms and ill-defined conditions (9 sources) Proteinuria; 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: [Proteinuria, unspecified] Onset: 10-14-2009 10-14-2009 Episodic Noninfectious gastroenteritis (8 sources) Chronic diarrhea; 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: [Noninfective gastroenteritis and colitis, unspecified] Onset: 11-22-2021 Episodic Other aftercare (7 sources) Patient encounter status; 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: [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 (current) use of antithrombotics/antip latelets] Onset: 07-15-2017 01-23-2018 Episodic Other aftercare (9 sources) Long-term current use of oral hypoglycemic medication; 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: [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 (current) use of oral hypoglycemic drugs] Onset: 07-15-2017 01-23-2018 Episodic Other aftercare (9 sources) Long-term current use of insulin; 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: [care home (current) use of insulin] Onset: 04-27-2017 01-23-2018 Episodic Other aftercare (2 sources) Long-term current use of drug therapy; 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: [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 (current) use of antithrombotics/antip latelets] Onset: 07-15-2017 Resolved: 03-29-2024 03-29-2024 Episodic Other aftercare (2 sources) Drug therapy finding; 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: [Other benefits clerk (current) drug therapy] Resolved: 09-11-2019 09-11-2019 Episodic Other circulatory disease (1 source) Personal history of sudden cardiac arrest; 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: [History of sudden cardiac arrest successfully resuscitated] Onset: 03-13-2022 Episodic Other connective tissue disease (1 source) Other specified soft tissue disorders; 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: [Other specified soft tissue disorders] Onset: 12-18-2024 Episodic Other diseases of kidney and ureters (11 sources) Cyst of kidney; 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: [Cyst of kidney, acquired] Onset: 02-18-2013 Episodic Other screening for suspected conditions (not mental disorders or infectious disease) (9 sources) Serum creatinine raised; 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: [Other specified [...] Resolved: 06-02-2016 11-06-2015 Episodic Residual codes; unclassified (9 sources) Family history of stroke; 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: [Family history of stroke] Onset: 01-23-2018 01-23-2018 Episodic Residual codes; unclassified (13 sources) Other specified personal risk factors, not elsewhere classified; 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: [Other specified personal history presenting hazards to health] Onset: 09-11-2019 09-11-2019 Episodic Syncope (1 source) Syncope; 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: [Syncope and collapse] Onset: 02-12-2017 02-12-2017 Episodic Unclassified (9 sources) Body mass index (BMI) 26.0-26.9, adult; 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: [Body mass index (BMI) 27.0-27.9, adult] Onset: 04-07-2015 Resolved: 12-24-2015 05-29-2017 Episodic Unclassified (1 source) Problem Unclassified (20 sources) Age AND/OR growth finding; 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: [65 years of age or older] 09-05-2021 Viral infection (20 sources) Disease caused by 2019-nCoV; 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: [COVID-19] Onset: 06-01-2021 09-05-2021 Episodic Results Test Name Value Interpretation Reference Range Facility Anion gap in Serum or Plasma Ordered By: Michelle Mcfarlane on 04-28-2025 Anion gap [Moles/Vol] 13 mmol/L 5-15 [facility] BUN/creatinine ratioOrdered By: Michelle Mcfarlane on 04-28-2025 Urea nitrogen/Creatinine [Mass ratio] 14.5 mg/mg 10-20 [facility] Basic Metabolic Profile (BMP )on 04-28-2025 BUN/CRE 14.5 RATIO Normal - [facility] Comment on above: Performed By: #### L 500.2500, L501.0900 #### [facility] [address] [place], [address] Calcium [Mass/Vol] 9.4 mg/dL Normal 7.6-11.0 [facility] Comment on above: Performed By: #### L 500.2500, L501.0900 #### [facility] [address] [place], [address] Chloride [Moles/Vol] 110 mmol/L High 98-108 [facility] Comment on above: Performed By: #### L 500.2500, L501.0900 #### [facility] [address] [place], [address] CO2 [Moles/Vol] 21.4 mmol/L Normal 21.0-32.0 [facility] Comment on above: Performed By: #### L 500.2500, L501.0900 #### [facility] [address] [place], [address] Creatinine [Mass/Vol] 1.86 mg/dL High 0.70-1.20 [facility] Comment on above: Performed By: #### L 500.2500, L501.0900 #### [facility] [address] [place], [address] GAP 13 Normal 5-15 [facility] Comment on above: Performed By: #### L 500.2500, L501.0900 #### [facility] [address] [place], [address] GFR/1.73 sq M.predicted among non-blacks MDRD (S/P/Bld) [Vol rate/Area] 35 mL/min/{1.73_m2} Low >60 [facility] Comment on above: Result Comment: mL/m in/1.73m2 CKD-EPI Creatinine Equation (2020) Performed By: #### L 500.2500, L501.0900 #### [facility] [address] [place], [address] Glucose [Mass/Vol] 71 mg/dL Normal 70-99 [facility] Comment on above: Performed By: #### L 500.2500, L501.0900 #### [facility] [address] [place], [address] Potassium [Moles/Vol] 3.6 mmol/L Normal 3.3-5.1 [facility] Comment on above: Result Comment: Hemo lysis present, Results??could be affected. ?? Performed By: #### L 500.2500, L501.0900 #### [facility] [address] [place], [address] Sodium [Moles/Vol] 144 mmol/L Normal 133-145 [facility] Comment on above: Performed By: #### L 500.2500, L501.0900 #### [facility] [address] [place], [address] Urea nitrogen [Mass/Vol] 27 mg/dL High 4-19 [facility] Comment on above: Performed By: #### L 500.2500, L501.0900 #### [facility] [address] [place], [address] Carbon dioxide, total [Moles /volume] in Central venous bloodOrdered By: Michelle Mcfarlane on 04-28-2025 CO2 [Moles/Vol] 21.4 mmol/L 21.0-32.0 [facility] Chloride assayOrdered By: Eduardo Mcfarlane on 04-28-2025 Chloride [Moles/Vol] 110 mmol/L High 98-108 [facility] Glomerular filtration rate ( GFR) estimation/1.73 sq m using serum, plasma, or whole bOrdered By: Michelle Mcfarlane on 04-28-2025 GFR/1.73 sq M.predicted among non-blacks MDRD (S/P/Bld) [Vol rate/Area] 35 mL/min/{1.73_m2} Low >60 [facility] Comment on above: mL/min/1.73m2 CKD-EP I Creatinine Equation (2020) Potassium measurement (mass/ volume)Ordered By: Michelle Mcfarlane on 04-28-2025 Potassium (Unsp spec) [Mass/Vol] 3.6 mmol/L 3.3-5.1 [facility] Comment on above: Hemolysis present, R esults could be affected. Protein+Creatinine Ratio,Uri neon 04-28-2025 PROT:CRE RATIO 400 mg/g CRE High 0-200 [facility] Comment on above: Performed By: #### L 500.2500, L501.0900 #### [facility] [address] [place], [address] Protein (U) [Mass/Vol] 28.2 mg/dL High 0.0-12.0 [facility] Comment on above: Performed By: #### L 500.2500, L501.0900 #### [facility] [address] [place], [address] UR CREAT 70.50 mg/dL Normal 39.00-259. 00 [facility] Comment on above: Performed By: #### L 500.2500, L501.0900 #### [facility] [address] [place], [address] Random urine creatinine baljeet urement (mass/volume)Ordered By: Michelle Mcfarlane on 04-28-2025 Creatinine Unsp time (U) [Mass/Vol] 70.50 mg/dL 39.00-259. 00 [facility] Serum creatinine measurement (mass/volume)Ordered By: Michelle Mcfarlane on 04-28-2025 Creatinine [Mass/Vol] 1.86 mg/dL High 0.70-1.20 [facility] Serum glucose measurement (m ass/volume)Ordered By: Michelle Mcfarlane on 04-28-2025 Glucose [Mass/Vol] 71 mg/dL 70-99 [facility] Serum or plasma calcium baljeet urement (mass/volume)Ordered By: Michelle Mcfarlane on 04-28-2025 Calcium [Mass/Vol] 9.4 mg/dL 7.6-11.0 [facility] Serum or plasma urea nitroge n measurement (mass/volume)Ordered By: Michelle Mcfarlane on 04-28-2025 Urea nitrogen [Mass/Vol] 27 mg/dL High 4-19 [facility] Sodium levelOrdered By: Valdez Mcfarlane on 04-28-2025 Sodium [Moles/Vol] 144 mmol/L 133-145 [facility] Urine protein measurement (m ass/volume)Ordered By: Michelle Mcfarlane on 04-28-2025 Protein (U) [Mass/Vol] 28.2 mg/dL High 0.0-12.0 [facility] Urine protein/creatinine mas s ratioOrdered By: Michelle Mcfarlane on 04-28-2025 Protein/Creatinine (U) [Mass ratio] 400 mg/g CRE High 0-200 [facility] CBC-Complete Blood Cnt No Di ffon 04-21-2025 Erythrocyte distribution width (RBC) [Ratio] 14.0 % Normal 11.6-14.6 [facility] Comment on above: Order Comment: Order Date: 04/21/25Order Info: [id number] - CBC Performed By: #### L 500.2500, L501.0900 #### [facility] [address] [place], [address] Hematocrit (Bld) [Volume fraction] 36.5 % Low 40-54 [facility] Comment on above: Order Comment: Order Date: 04/21/25Order Info: [id number] - CBC Performed By: #### L 500.2500, L501.0900 #### [facility] [address] [place], [address] Hemoglobin (Bld) [Mass/Vol] 11.6 g/dL Low 13.0-16.5 [facility] Comment on above: Order Comment: Order Date: 04/21/25Order Info: [id number] - CBC Performed By: #### L 500.2500, L501.0900 #### [facility] [address] [place], [address] MCH (RBC) [Entitic mass] 29.7 pg Normal 27.0-32.0 [facility] Comment on above: Order Comment: Order Date: 04/21/25Order Info: [id number] - CBC Performed By: #### L 500.2500, L501.0900 #### [facility] [address] [place], [address] MCHC (RBC) [Mass/Vol] 31.8 g/dL Low 32-36 [facility] Comment on above: Order Comment: Order Date: 04/21/25Order Info: [id number] - CBC Performed By: #### L 500.2500, L501.0900 #### [facility] [address] [place], [address] MCV (RBC) [Entitic vol] 93.6 fL Normal 80-94 [facility] Comment on above: Order Comment: Order Date: 04/21/25Order Info: [id number] - CBC Performed By: #### L 500.2500, L501.0900 #### [facility] [address] [place], [address] Platelet mean volume (Bld) [Entitic vol] 9.5 fL Normal 6.2-12.0 [facility] Comment on above: Order Comment: Order Date: 04/21/25Order Info: [id number] - CBC Performed By: #### L 500.2500, L501.0900 #### [facility] [address] [place], [address] Platelets (Bld) [#/Vol] 174 10*3/uL Normal 150-450 [facility] Comment on above: Order Comment: Order Date: 04/21/25Order Info: [id number] - CBC Performed By: #### L 500.2500, L501.0900 #### [facility] [address] [place], [address] RBC (Bld) [#/Vol] 3.90 10*6/uL Low 4.6-6.2 [facility] Comment on above: Order Comment: Order Date: 04/21/25Order Info: [id number] - CBC Performed By: #### L 500.2500, L501.0900 #### [facility] [address] [place], [address] RDW SD 48.1 fl High 35.1-43.9 [facility] Comment on above: Order Comment: Order Date: 04/21/25Order Info: [id number] - CBC Performed By: #### L 500.2500, L501.0900 #### [facility] [address] [place], [address] WBC (Bld) [#/Vol] 7.8 10*3/uL Normal 4.4-11.0 [facility] Comment on above: Order Comment: Order Date: 04/21/25Order Info: [id number] - CBC Performed By: #### L 500.2500, L501.0900 #### [facility] [address] [place], [address] Erythrocyte distribution wid th ratioOrdered By: Katherin Soriano on 04-21-2025 Erythrocyte distribution width (RBC) [Ratio] 14.0 % 11.6-14.6 [facility] Erythrocyte distribution wid th standard deviationOrdered By: Katherin Soriano on 04-21-2025 Erythrocyte distribution width (RBC) [Ratio] 48.1 fl High 35.1-43.9 [facility] Ferritinon 04-21-2025 Ferritin [Mass/Vol] 133 ng/mL Normal 37-417 [facility] Comment on above: Order Comment: Order Date: 04/21/25Order Info: [id number] - TSHOrder Info: [id number] - IBCOrder Info: [id number] - ALONDRA Performed By: #### L 500.2500, L501.0900 #### [facility] [address] [place], [address] Hematocrit Auto (Bld) [Volum e fraction]Ordered By: Katherin Soriano on 04-21-2025 Hematocrit (Bld) [Volume fraction] 36.5 % Low 40-54 [facility] Hemoglobin A1con 04-21-2025 HbA1c (Bld) [Mass fraction] 7.1 % High <=5.6 [facility] Comment on above: Order Comment: Order Date: 04/21/25Order Info: [id number] - A1C Result Comment: Norm al < 5.7 % Prediabetic 5.7 - 6.4 % Diabetic >or= 6.5 % Please note range changes. Performed By: #### L 500.2500, L501.0900 #### [facility] [address] [place], [address] Hemoglobin A1c percentageOrd ered By: Katherin Soriano on 04-21-2025 HbA1c (Bld) [Mass fraction] 7.1 % High <5.7 [facility] Comment on above: Normal < 5.7 % Predi abetic 5.7 - 6.4 % Diabetic >or= 6.5 % Please note range changes. Hemoglobin measurementOrdere d By: Katherin Soriano on 04-21-2025 Hemoglobin (Bld) [Mass/Vol] 11.6 g/dL Low 13.0-16.5 [facility] Iron measurement (mass/mass) Ordered By: Katherin Soriano on 04-21-2025 Iron (Unsp spec) [Mass/Mass] 35 ug/dL Low 65-175 [facility] Iron+Iron Binding Capacityon 04-21-2025 Iron [Mass/Vol] 35 ug/dL Low 65-175 [facility] Comment on above: Order Comment: Order Date: 04/21/25Order Info: [id number] - TSHOrder Info: [id number] - IBCOrder Info: 6-4 - ALONDRA Performed By: #### L 500.2500, L501.0900 #### [facility] [address] [place], [address] IRON SATURATION 14.0 Normal 9-55 [facility] Comment on above: Order Comment: Order Date: 04/21/25Order Info: 6-3 - TSHOrder Info: [id number] - IBCOrder Info: [id number] - ALONDRA Performed By: #### L 500.2500, L501.0900 #### [facility] [address] [place], [address] TIBC 246 ug/dL Low 250-450 [facility] Comment on above: Order Comment: Order Date: 04/21/25Order Info: 6-3 - TSHOrder Info: [id number] - IBCOrder Info: [id number] - ALONDRA Performed By: #### L 500.2500, L501.0900 #### [facility] [address] [place], [address] UIBC 211 ug/dL Low 228-428 [facility] Comment on above: Order Comment: Order Date: 04/21/25Order Info: 6-3 - TSHOrder Info: [id number] - IBCOrder Info: [id number] - ALONDRA Performed By: #### L 500.2500, L501.0900 #### [facility] [address] [place], [address] MCV (mean corpuscular volume ) determinationOrdered By: Katherin Soriano on 04-21-2025 MCV (RBC) [Entitic vol] 93.6 fL 80-94 [facility] Mean corpuscular hemoglobin (MCH) determinationOrdered By: Katherin Soriano on 04-21-2025 MCH (RBC) [Entitic mass] 29.7 pg 27.0-32.0 [facility] Mean corpuscular hemoglobin concentration (MCHC) determinationOrdered By: Katherin Soriano on 04-21-2025 MCHC (RBC) [Mass/Vol] 31.8 g/dL Low 32-36 [facility] Mean platelet volume determi nationOrdered By: Katherin Soriano on 04-21-2025 Platelet mean volume (Bld) [Entitic vol] 9.5 fL 6.2-12.0 [facility] No Panel InformationOrdered By: Katherin Soriano on 04-21-2025 Unsaturated Iron Binding Capacity 211 ug/dL Low 228-428 [facility] Platelet countOrdered By: Eliazar Soriano on 04-21-2025 Platelets (Bld) [#/Vol] 174 10*3/uL 150-450 [facility] RBC Auto (Bld) [#/Vol]Ordere d By: Katherin Soriano on 04-21-2025 RBC (Bld) [#/Vol] 3.90 10*6/uL Low 4.6-6.2 [facility] Serum or plasma ferritin george surement (mass/volume)Ordered By: Katherin Soriano on 04-21-2025 Ferritin [Mass/Vol] 133 ng/mL 37-417 [facility] Serum or plasma iron saturat ion measurement (mass fraction)Ordered By: Katherin Soriano on 04-21-2025 Iron saturation [Mass fraction] 14.0 % 9-55 [facility] TSH DL <= 0.005 mIU/L QnOrde red By: Katherin Soriano on 04-21-2025 TSH Qn 1.960 uIU/mL 0.300-4.20 0 [facility] Thyroid Stim Hormone (TSH)on 04-21-2025 TSH 1.960 uIU/mL Normal 0.300-4.20 0 [facility] Comment on above: Order Comment: Order Date: 04/21/25Order Info: [id number] - TSHOrder Info: [id number] - IBCOrder Info: [id number] - ALONDRA Performed By: #### L 500.2500, L501.0900 #### [facility] [address] [place], [address] Vitamin B12on 04-21-2025 Cobalamin (Vitamin B12) [Mass/Vol] 453 pg/mL Normal 180-914 [facility] Comment on above: Order Comment: Order Date: 04/21/25Order Info: [id number] - TSHOrder Info: [id number] - IBCOrder Info: [id number] - ALONDRA Performed By: #### L 500.2500, L501.0900 #### [facility] [address] [place], [place], [address] Vitamin B12 ser/plasOrdered By: Katherin Soriano on 04-21-2025 Cobalamin (Vitamin B12) [Mass/Vol] 453 pg/mL 180-914 [facility] Vitamin D,25 Hydroxyon 04-21 Vitamin D 25-OH 59.4 ng/mL Normal 30-100 [facility] Comment on above: Order Comment: Order Date: 04/21/25Order Info: [id number] - TSHOrder Info: [id number] - IBCOrder Info: [id number] - ALONDRA Result Comment: Latanya min D Status Deficiency: <20 ng/mL (50nmol/L) Insufficiency: 20-30 ng/mL (50-75 nmol/L) Sufficiency: 30-100 ng/mL (75-250 nmol/L) Toxicity: >100 ng/mL (>250 nmol/L) Performed By: #### L 500.2500, L501.0900 #### [facility] [address] [place], [place], [address] White blood cell (WBC) count Ordered By: Katherin Soriano on 04-21-2025 WBC (Bld) [#/Vol] 7.8 10*3/uL 4.4-11.0 [facility] CNOVon 04-08-2025 CNOV Office Visit ([facility]) RACHNA RECINOS ([id number]) 1940 M NFR Date Time Provider Department 04/08/25 10:00 AM ESTRELLITA SOTO AGCARDPOB During your visit today, we recorded the following information about you: Pulse Respiration Blood pressure Weight 66/minute 18/minute 120/60 91.6 kg Height 1.803 m Estrellita Soto MD 04/09/2025 5:37 PM Signed PRIMARY CARE PHYSICIAN: Katherin Navarrete [place] DIA [address] [phone] Patient Care Team: Katherin Soriano MD as PCP - General (Internal Medicine) Estrellita Tony V as Specialty Dress Cutter (Internal Medicine) Marj Marcial CNP as Specialty Dress Cutter (Family Medicine) Estrellita Soto MD as Specialty Dress Cutter (Cardiology) Bunny Verdin MD as Specialty Dress Cutter (Cardiology) Maribeth Mcfarlane MD as Specialty Dress Cutter (Nephrology) CHIEF COMPLAINT: Follow up for arrhythmia, ICD HISTORY OF PRESENT ILLNESS: Mr. Recinos is a 84 year old male who presents today for a cardiovascular medicine follow-up visit. Recording using ambient AI software for draft documentation of the visit was discussed with the patient/authorized brand representative; all questions welcomed and answered. Patient/authorized brand representative agreed to proceed History from previous notes, edited as needed and/or generated by dictation with use of AI.: Patient Overview: Mr. Recinos has a history of swj-dh-kyayggsk cardiac arrest that occurred in June 2015. A single-chamber transvenous ICD system was implanted via the left side of the chest in July 2015 for secondary prevention. In October 2015, the ICD system was extracted due to Enterococcus faecalis sepsis, and a subcutaneous ICD was implanted in January 2016. The ICD has been followed by [facility]. 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 He was treated with amiodarone, which had been initiated around February 2017, possibly for ventricular arrhythmias with ICD shock. The amiodarone was discontinued in 2017. The ICD generator was changed in February 2022. Interim History Dr. Soto 04/08/2025: The patient is an 84-year-old male with a history of ucj-bu-jkzmigvd cardiac arrest, s/p CABG, and s/p subcutaneous ICD implantation, presenting for a follow-up visit. The patient reports no recent issues with his ICD, including no shocks or malfunctions. He denies experiencing any chest pain, dyspnea, or syncope. He has not undergone any recent surgeries and is reportedly on a "no surgery list" due to high risk. His medical history is significant for an tbg-iw-tcuncscf cardiac arrest in 06/2015, followed by the implantation of a single-chamber transvenous ICD in 07/2015 for secondary prevention. The ICD was removed in 10/2015 due to Enterococcus faecalis sepsis, and a subcutaneous ICD was implanted in 01/2016. The ICD generator was replaced in 02/2022. He underwent CABG in 04/2017 and experienced postoperative atrial flutter and atrial fibrillation, requiring electrical cardioversion and treatment with amiodarone. He was previously on amiodarone in 02/2017, possibly for ventricular arrhythmias with ICD shock, but it was discontinued in 2017. He is currently followed by the [place] [facility], with home transmissions sent every Sunday (he states although this seems to be frequent, typically there are routine transmissions every 3 months). He has upcoming appointments with his primary care physician next week and his oyster sorter next month. He is currently taking atorvastatin 20 mg once daily, Cardizem SR 120 mg once daily, carvedilol 25 mg BID, and Ozempic. His thyroid medication dosage was recently adjusted to 100 mcg. He reports no new allergies. I have confirmed and edited as necessary, the PFSH and ROS obtained by others. 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/2015 CAD (coronary artery disease) Cardiac arrest ([facility]) 07/23/2015: VF documented by EMS upon arrival, defibrillated with 200 Joules to achieve ROSC within 9 minutes of EMS being called Cardiomyopathy ([facility]) LVEF 35% by echo 11/03/2015 Chronic low back pain Chronic systolic heart failure (HCC) CKD (chronic kidney disease) Complete left bundle branch block (LBBB) COPD (chronic obstructive pulmonary disease) (HCC) Essential hypertension GERD (gastroesophageal reflux disease) History of coronary artery bypass graft x 2 04/27/2017 History o (more content not included)... Normal [facility] ECG B/O W INTERP (MED OFFICE )on 04-08-2025 Interpretation and review of laboratory results Abnormal [facility] Sinus rhythm 67 bpm; first-degree AV block (DE 260 ms); left bundle branch block (QRS duration 154 ms); QTc 473 ms [facility] Microalb:Creat Ratio,Random URon 03-23-2025 MALB:CREAT 358.2 mg/g CRE High <30 mg/g CRE [facility] Comment on above: Result Comment: AMENDED REPORT 03/23/252037 MALB:CREAT previously reported as: 3581.6 mg/g CRE Performed By: #### L 500.2500, L501.0900 #### [facility] [address] [place], [address] Anion gap in Serum or Plasma Ordered By: Shu Gotti on 02-25-2025 Anion gap [Moles/Vol] 13 mmol/L - [facility] BUN/creatinine ratioOrdered By: Shu Gotti on 02-25-2025 Urea nitrogen/Creatinine [Mass ratio] 16.8 mg/mg - [facility] Basic Metabolic Profile (BMP )on 02-25-2025 BUN/CRE 16.8 RATIO Normal - [facility] Comment on above: Performed By: #### L 500.2500, L501.0900 #### [facility] [address] [place], [address] Calcium [Mass/Vol] 9.1 mg/dL Normal 7.6-11.0 [facility] Comment on above: Performed By: #### L 500.2500, L501.0900 #### [facility] [address] [place], [address] Chloride [Moles/Vol] 105 mmol/L Normal 98-108 [facility] Comment on above: Performed By: #### L 500.2500, L501.0900 #### [facility] [address] [place], [address] CO2 [Moles/Vol] 26.2 mmol/L Normal 21.0-32.0 [facility] Comment on above: Performed By: #### L 500.2500, L501.0900 #### [facility] [address] [place], [address] Creatinine [Mass/Vol] 1.87 mg/dL High 0.70-1.20 [facility] Comment on above: Performed By: #### L 500.2500, L501.0900 #### [facility] [address] [place], [address] GAP 13 Normal 5-15 [facility] Comment on above: Performed By: #### L 500.2500, L501.0900 #### [facility] [address] [place], [address] GFR/1.73 sq M.predicted among non-blacks MDRD (S/P/Bld) [Vol rate/Area] 35 mL/min/{1.73_m2} Low >60 [facility] Comment on above: Result Comment: mL/m in/1.73m2 CKD-EPI Creatinine Equation (2020) Performed By: #### L 500.2500, L501.0900 #### [facility] [address] [place], [address] Glucose [Mass/Vol] 111 mg/dL High 70-99 [facility] Comment on above: Performed By: #### L 500.2500, L501.0900 #### [facility] [address] [place], [address] Potassium [Moles/Vol] 3.5 mmol/L Normal 3.3-5.1 [facility] Comment on above: Performed By: #### L 500.2500, L501.0900 #### [facility] [address] [place], [address] Sodium [Moles/Vol] 144 mmol/L Normal 133-145 [facility] Comment on above: Performed By: #### L 500.2500, L501.0900 #### [facility] [address] [place], [address] Urea nitrogen [Mass/Vol] 31 mg/dL High 4-19 [facility] Comment on above: Performed By: #### L 500.2500, L501.0900 #### [facility] [address] [place], [address] Carbon dioxide, total [Moles /volume] in Central venous bloodOrdered By: Shu Gotti on 02-25-2025 CO2 [Moles/Vol] 26.2 mmol/L 21.0-32.0 [facility] Chloride assayOrdered By: Harpal Gotti on 02-25-2025 Chloride [Moles/Vol] 105 mmol/L 98-108 [facility] Glomerular filtration rate ( GFR) estimation/1.73 sq m using serum, plasma, or whole bOrdered By: Shu Gotti on 02-25-2025 GFR/1.73 sq M.predicted among non-blacks MDRD (S/P/Bld) [Vol rate/Area] 35 mL/min/{1.73_m2} Low >60 [facility] Comment on above: mL/min/1.73m2 CKD-EP I Creatinine Equation (2020) Potassium measurement (mass/ volume)Ordered By: Shu Gotti on 02-25-2025 Potassium (Unsp spec) [Mass/Vol] 3.5 mmol/L 3.3-5.1 [facility] Serum creatinine measurement (mass/volume)Ordered By: Shu Gotti on 02-25-2025 Creatinine [Mass/Vol] 1.87 mg/dL High 0.70-1.20 [facility]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 Crandall on 11-10-2024 SARS-CoV-2 (COVID-19) RNA BURAK+probe Ql (Unsp spec) Influenzae A Abnormal [facility] M100.678on 11-10-2024 M100.678 Copy of report sent to Infection Control Printer [id number] 11/10/24 0731 LUPE. Normal Reference Range = Negative FLUABV+SARS-CoV-2+RSV Pnl Resp BURAK+probe GeneXpert Instrument, PCR method RESULTS CALLED TO DMILLER 11/10/24 0719 Reid Ruiz. REPORT READ BACK BY SAME. SARS-CoV-2 (COVID 19) Negative INFLUENZA A A Positive A INFLUENZA B Negative RSV PCR Negative INFLUENZAE A Normal [facility] Comment on above: Performed By: #### L 500.2500, L501.0900 #### [facility] [address] [place], [address] Albumin DL <= 20 mg/L (U) [M ass/Vol]Ordered By: Shu Gotti on 10-28-2024 Urine Random Microalbumin 505.0 mg/L NO RANGE EST. [facility] Anion gap in Serum or Plasma Ordered By: Shu Gotti on 10-28-2024 Anion gap [Moles/Vol] 14 mmol/L 5-15 [facility] BUN/creatinine ratioOrdered By: Shu Gotti on 10-28-2024 Urea nitrogen/Creatinine [Mass ratio] 16.5 mg/mg 10- [facility] Bilirubin, totalOrdered By: Shu Gotti on 10-28-2024 Bilirubin [Mass/Vol] 0.26 mg/dL 0.00-1.30 [facility] Calculated very low density lipoprotein (VLDL) cholesterol measurementOrdered By: Shu Gotti on 10-28-2024 Calculated very low density lipoprotein (VLDL) cholesterol measurement 11 mg/dL - [facility] VLDL Cholesterol 11 mg/dL - [facility] Carbon dioxide, total [Moles /volume] in Central venous bloodOrdered By: Shu Gotti on 10-28-2024 CO2 [Moles/Vol] 21.8 mmol/L 21.0-32.0 [facility] Chloride assayOrdered By: Harpal Gotti on 10-28-2024 Chloride [Moles/Vol] 111 mmol/L High 98-108 [facility] Comprehensive Metabolic Prof ilon 10-28-2024 Albumin [Mass/Vol] 4.0 g/dL Normal 3.4-4.8 [facility] Comment on above: Performed By: #### L 501.9520, L506.0400, L500.4100, L501.9985, L500.4050, L501.71957, L509.1000, L506.1001 #### [facility] [address] [place], [address] Albumin/Globulin [Mass ratio] 1.7 {ratio} Normal 0.9-2.4 [facility] Comment on above: Performed By: #### L 501.9520, L506.0400, L500.4100, L501.9985, L500.4050, L501.35266, L509.1000, L506.1001 #### [facility] [address] [place], [address] ALK PHOS 69 U/L Normal 40-129 [facility] Comment on above: Performed By: #### L 501.9520, L506.0400, L500.4100, L501.9985, L500.4050, L501.99344, L509.1000, L506.1001 #### [facility] [address] [place], [address] ALT [Catalytic activity/Vol] 18 U/L Normal <=46 [facility] Comment on above: Performed By: #### L 501.9520, L506.0400, L500.4100, L501.9985, L500.4050, L501.37397, L509.1000, L506.1001 #### [facility] [address] [place], [address] AST [Catalytic activity/Vol] 19 U/L Normal <=37 [facility] Comment on above: Performed By: #### L 501.9520, L506.0400, L500.4100, L501.9985, L500.4050, L501.42354, L509.1000, L506.1001 #### [facility] [address] [place], [address] Bilirubin [Mass/Vol] 0.26 mg/dL Normal 0.00-1.30 [facility] Comment on above: Performed By: #### L 501.9520, L506.0400, L500.4100, L501.9985, L500.4050, L501.23860, L509.1000, L506.1001 #### [facility] [address] [place], [address] BUN/CRE 16.5 RATIO Normal 10-20 [facility] Comment on above: Performed By: #### L 501.9520, L506.0400, L500.4100, L501.9985, L500.4050, L501.68427, L509.1000, L506.1001 #### [facility] [address] [place], [address] Calcium [Mass/Vol] 8.7 mg/dL Normal 7.6-11.0 [facility] Comment on above: Performed By: #### L 501.9520, L506.0400, L500.4100, L501.9985, L500.4050, L501.10310, L509.1000, L506.1001 #### [facility] [address] [place], [address] Chloride [Moles/Vol] 111 mmol/L High 98-108 [facility] Comment on above: Performed By: #### L 501.9520, L506.0400, L500.4100, L501.9985, L500.4050, L501.80227, L509.1000, L506.1001 #### [facility] [address] [place], [address] CO2 [Moles/Vol] 21.8 mmol/L Normal 21.0-32.0 [facility] Comment on above: Performed By: #### L 501.9520, L506.0400, L500.4100, L501.9985, L500.4050, L501.93647, L509.1000, L506.1001 #### [facility] [address] [place], [address] Creatinine [Mass/Vol] 1.79 mg/dL High 0.70-1.20 [facility] Comment on above: Performed By: #### L 501.9520, L506.0400, L500.4100, L501.9985, L500.4050, L501.53639, L509.1000, L506.1001 #### [facility] [address] [place], [address] GAP 14 Normal 5-15 [facility] Comment on above: Performed By: #### L 501.9520, L506.0400, L500.4100, L501.9985, L500.4050, L501.66945, L509.1000, L506.1001 #### [facility] [address] [place], [address] GFR/1.73 sq M.predicted among non-blacks MDRD (S/P/Bld) [Vol rate/Area] 36 mL/min/{1.73_m2} Low >60 [facility] Comment on above: Result Comment: mL/m in/1.73m2 CKD-EPI Creatinine Equation (2020) Performed By: #### L 501.9520, L506.0400, L500.4100, L501.9985, L500.4050, L501.61489, L509.1000, L506.1001 #### [facility] [address] [place], [address] Globulin (S) [Mass/Vol] 2.3 g/dL Normal 2.2-4.2 [facility] Comment on above: Performed By: #### L 501.9520, L506.0400, L500.4100, L501.9985, L500.4050, L501.91386, L509.1000, L506.1001 #### [facility] [address] [place], [address] Glucose [Mass/Vol] 83 mg/dL Normal 70-99 [facility] Comment on above: Performed By: #### L 501.9520, L506.0400, L500.4100, L501.9985, L500.4050, L501.02366, L509.1000, L506.1001 #### [facility] [address] [place], [address] Potassium [Moles/Vol] 3.5 mmol/L Normal 3.3-5.1 [facility] Comment on above: Performed By: #### L 501.9520, L506.0400, L500.4100, L501.9985, L500.4050, L501.14178, L509.1000, L506.1001 #### [facility] [address] [place], [address] Sodium [Moles/Vol] 146 mmol/L High 133-145 [facility] Comment on above: Performed By: #### L 501.9520, L506.0400, L500.4100, L501.9985, L500.4050, L501.61094, L509.1000, L506.1001 #### [facility] [address] [place], [address] T PROT 6.4 g/dL Normal 5.9-8.4 [facility] Comment on above: Performed By: #### L 501.9520, L506.0400, L500.4100, L501.9985, L500.4050, L501.18498, L509.1000, L506.1001 #### [facility] [address] [place], [address] Urea nitrogen [Mass/Vol] 30 mg/dL High 4-19 [facility] Comment on above: Performed By: #### L 501.9520, L506.0400, L500.4100, L501.9985, L500.4050, L501.28065, L509.1000, L506.1001 #### [facility] [address] [place], [place], [address] Creatinine Unsp time (U) [Ma ss/Vol]Ordered By: Shu Gotti on 10-28-2024 Creatinine (U) [Mass/Vol] 141.00 mg/dL 39-259 [facility] Free T3on 10-28-2024 Free T3 [Mass/Vol] 2.1 pg/mL Low 2.18-3.98 [facility] Comment on above: Performed By: #### L 501.9520, L506.0400, L500.4100, L501.9985, L500.4050, L501.99760, L509.1000, L506.1001 #### [facility] [address] [place], [place], [id number] Free O4Szgyjwh By: Shu mishra on 10-28-2024 Free T3 [Mass/Vol] 2.1 pg/mL Low 2.18-3.98 [facility] Free Triiodothyronine (T3) pg/dL 2.1 pg/mL Low 2.18-3.98 [facility] GFR/1.73 sq M.predicted farooq g non-blacks MDRD (S/P/Bld) [Vol rate/Area]Ordered By: Shu Gotti on 10-28-2024 Estimated GFR (MDRD) Non-Af Amer 36 Low >60 [facility] Comment on above: mL/min/1.73m2 CKD-EP I Creatinine Equation (2020) Glomerular filtration rate ( GFR) estimation/1.73 sq m using serum, plasma, or whole bOrdered By: Shu Gotti on 10-28-2024 GFR/1.73 sq M.predicted among non-blacks MDRD (S/P/Bld) [Vol rate/Area] 36 mL/min/{1.73_m2} Low >60 [facility] Comment on above: mL/min/1.73m2 CKD-EP I Creatinine Equation (2020) Hemoglobin A1con 10-28-2024 HbA1c (Bld) [Mass fraction] 7.2 % Normal <=5.6 [facility] Comment on above: Performed By: #### L 501.9520, L506.0400, L500.4100, L501.9985, L500.4050, L501.83584, L509.1000, L506.1001 #### [facility] [address] [place], [address] Hemoglobin A1c percentageOrd ered By: Shu Gotti on 10-28-2024 HbA1c (Bld) [Mass fraction] 7.2 % >5.7 [facility] L506.1001on 10-28-2024 Vitamin D 25-OH 51.3 ng/mL Normal 30-100 [facility] Comment on above: Result Comment: Latanya min D Status Deficiency: <20 ng/mL (50nmol/L) Insufficiency: 20-30 ng/mL (50-75 nmol/L) Sufficiency: 30-100 ng/mL (75-250 nmol/L) Toxicity: >100 ng/mL (>250 nmol/L) Performed By: #### L 500.2500, L501.0900 #### [facility] [address] [place], [address] LDL calc ser/plasOrdered By: Shu Gotti on 10-28-2024 Cholesterol in LDL [Mass/Vol] 33 mg/dL [facility] Comment on above: Iaqlkmlgkh=720-257 m g/dL & Higher Fswj=938 mg/dL or greater LDL Cholesterol, Calculated 33 mg/dL [facility] Comment on above: Qooehaatpe=416-676 m g/dL & Higher Rdkz=222 mg/dL or greater Laboratory - Chemistry and C hemistry - challengeOrdered By: Shu Gotti on 10-28-2024 AST [Catalytic activity/Vol] 19 U/L <38 [facility] Lipid Profileon 10-28-2024 CHOL:HDL 1.73 Normal [facility] Comment on above: Performed By: #### L 501.9520, L506.0400, L500.4100, L501.9985, L500.4050, L501.17062, L509.1000, L506.1001 #### [facility] [address] [place], [address] Cholesterol [Mass/Vol] 104 mg/dL Normal <=200 [facility] Comment on above: Result Comment: Chol esterol level, Desirable <200 mg/dL Borderline high cholesterol 200-239 mg/dL High cholesterol >=240 mg/dL Recommendations of the NCEP Adult Treatment Panel for the following risk-cutoff thresholds for the [place] population. Performed By: #### L 501.9520, L506.0400, L500.4100, L501.9985, L500.4050, L501.34428, L509.1000, L506.1001 #### [facility] [address] [place], [address] Cholesterol in HDL [Mass/Vol] 60 mg/dL Normal [facility] Comment on above: Result Comment: [place] Cholesterol Education Program (NCEP) guidelines: <40 mg/dL: Low HDL-cholesterol (major risk factor for CHD) >= 60 mg/dL: High HDL-cholesterol (negative risk factor for CHD) HDL-cholesterol is affected by a number of factors, e.g. smoking, exercise, hormones, sex and age. Performed By: #### L 501.9520, L506.0400, L500.4100, L501.9985, L500.4050, L501.86608, L509.1000, L506.1001 #### [facility] [address] [place], [address] Cholesterol in LDL [Mass/Vol] 33 mg/dL Normal [facility] Comment on above: Result Comment: Bord tqngye=828-599 mg/dL Higher Pvbq=891 mg/dL or greater Performed By: #### L 501.9520, L506.0400, L500.4100, L501.9985, L500.4050, L501.76231, L509.1000, L506.1001 #### [facility] [address] [place], [address] Cholesterol in VLDL [Mass/Vol] 11 mg/dL Normal 5-40 [facility] Comment on above: Performed By: #### L 501.9520, L506.0400, L500.4100, L501.9985, L500.4050, L501.38093, L509.1000, L506.1001 #### [facility] [address] [place], [address] Triglyceride [Mass/Vol] 53 mg/dL Normal [facility] Comment on above: Result Comment: The drugs N-Acetylcysteine and Metamizole may falsely depress this assay. Normal range: <150 mg/dL Borderline High: 150-199 mg/dL High: 200-499 mg/dL Very High: >500 mg/dL Performed By: #### L 501.9520, L506.0400, L500.4100, L501.9985, L500.4050, L501.90665, L509.1000, L506.1001 #### [facility] [address] [place], [address] Microalbumin/creat ratio urO rdered By: Shu Gotti on 10-28-2024 Urine Microalbumin/Creatini ne Ratio 3581.6 mg/g CRE [facility] PTH intactOrdered By: Omid Gotti on 10-28-2024 Parathyroid Hormone (Intact) 49 pg/mL [facility] PTHINon 10-28-2024 PTH 49 pg/mL Normal [facility] Comment on above: Performed By: #### L 501.9520, L506.0400, L500.4100, L501.9985, L500.4050, L501.33511, L509.1000, L506.1001 #### [facility] [address] [place], [address] Potassium (Unsp spec) [Mass/ Vol]Ordered By: Shu Gotti on 10-28-2024 Potassium [Moles/Vol] 3.5 mmol/L 3.3-5.1 [facility] Potassium measurement (mass/ volume)Ordered By: Shu Gotti on 10-28-2024 Potassium (Unsp spec) [Mass/Vol] 3.5 mmol/L 3.3-5.1 [facility] Random urine creatinine baljeet urement (mass/volume)Ordered By: Shu Gotti on 10-28-2024 Creatinine Unsp time (U) [Mass/Vol] 141.00 mg/dL 39-259 [facility] Screening total cholesterol/ high density lipoprotein (HDL) cholesterol ratioOrdered By: Shu Gotti on 10-28-2024 Cholesterol.total/Cho lesterol in HDL [Mass ratio] 1.73 {ratio} [facility] Serum creatinine measurement (mass/volume)Ordered By: Shu Gotti on 10-28-2024 Creatinine [Mass/Vol] 1.79 mg/dL High 0.70-1.20 [facility] Serum globulin measurementOr dered By: Shu Gotti on 10-28-2024 Globulin (S) [Mass/Vol] 2.3 g/dL 2.2-4.2 [facility] Serum glucose measurement (m ass/volume)Ordered By: Shu Gotti on 10-28-2024 Glucose [Mass/Vol] 83 mg/dL 70-99 [facility] Serum or plasma alanine thomas otransferase (ALT) measurementOrdered By: Shu Gotti on 10-28-2024 ALT [Catalytic activity/Vol] 18 U/L <47 [facility] Serum or plasma albumin baljeet urement (mass/volume)Ordered By: Shu Gotti on 10-28-2024 Albumin [Mass/Vol] 4.0 g/dL 3.4-4.8 [facility] Serum or plasma albumin/glob ulin mass ratioOrdered By: Shu Gotti on 10-28-2024 Albumin/Globulin [Mass ratio] 1.7 {ratio} 0.9-2.4 [facility] Serum or plasma alkaline abel sphatase measurementOrdered By: Shu Gotti on 10-28-2024 ALP [Catalytic activity/Vol] 69 U/L 40-129 [facility] Serum or plasma calcium baljeet urement (mass/volume)Ordered By: Shu Gotti on 10-28-2024 Calcium [Mass/Vol] 8.7 mg/dL 7.6-11.0 [facility] Serum or plasma cholesterol in HDL measurement (mass/volume)Ordered By: Shu Gotti on 10-28-2024 Cholesterol in HDL [Mass/Vol] 60 mg/dL >40 [facility] Comment on above: National Cholesterol Education Program (NCEP) guidelines:<40 mg/dL: Low HDL-cholesterol (major risk factor for CHD)>= 60 mg/dL: High HDL-cholesterol (negative risk factor for CHD)HDL-cholesterol is affected by a number of factors, e.g. smoking, exercise, hormones, sex and age. Serum or plasma cholesterol measurement (mass/volume)Ordered By: Shu Gotti on 10-28-2024 Cholesterol [Mass/Vol] 104 mg/dL <201 [facility] Comment on above: Cholesterol level, D esirable <200 mg/dLBorderline high cholesterol 200-239 mg/dLHigh cholesterol >=240 mg/dLRecommendations of the NCEP Adult Treatment Panel for the following risk-cutoff thresholds for the [place] population. Serum or plasma urea nitroge n measurement (mass/volume)Ordered By: Shu Gotti on 10-28-2024 Urea nitrogen [Mass/Vol] 30 mg/dL High 4-19 [facility] Sodium levelOrdered By: Ladarius Gotti on 10-28-2024 Sodium [Moles/Vol] 146 mmol/L High 133-145 [facility] T4 Free Directon 10-28-2024 T4 FREE DIRECT 1.40 ng/dL Normal 0.76-1.46 [facility] Comment on above: Performed By: #### L 501.9520, L506.0400, L500.4100, L501.9985, L500.4050, L501.87669, L509.1000, L506.1001 #### [facility] [place], [address] T4 freeOrdered By: Shu mishra on 10-28-2024 Free T4 [Mass/Vol] 1.40 ng/dL 0.76-1.46 [facility] TSH DL <= 0.005 mIU/L QnOrde red By: Shu Gotti on 10-28-2024 Thyroid Stimulating Hormone (TSH) 1.610 uIU/mL 0.300-4.20 0 [facility] TSH Qn 1.610 uIU/mL 0.300-4.20 0 [facility] Thyroid Stim Hormone (TSH)on 10-28-2024 TSH 1.610 uIU/mL Normal 0.300-4.20 0 [facility] Comment on above: Performed By: #### L 501.9520, L506.0400, L500.4100, L501.9985, L500.4050, L501.08482, L509.1000, L506.1001 #### [facility] [address] [place], [place] [address] [place], [place], [address] Total proteinOrdered By: Mario Alberto Gotti on 10-28-2024 Protein [Mass/Vol] 6.4 g/dL 5.9-8.4 [facility] Triglycerides measurementOrd ered By: Shu Gotti on 10-28-2024 Triglyceride [Mass/Vol] 53 mg/dL <199 [facility] Comment on above: The drugs N-Acetylcy steine and Metamizole may falsely depress this assay. Normal range: <150 mg/dLBorderline High: 150-199 mg/dLHigh: 200-499 mg/dLVery High: >500 mg/dL Urine albumin measurement wi detection limit of 20 mg/L or less (mass/volume)Ordered By: Shu Gotti on 10-28-2024 Albumin DL <= 20 mg/L (U) [Mass/Vol] 505.0 mg/L NO RANGE EST. [facility] Vitamin D, 25-hydroxyOrdered By: Shu Gotti on 10-28-2024 Vitamin D 25-Hydroxy 51.3 ng/mL 30-100 [facility] Comment on above: Vitamin D StatusDefi ciency: <20 ng/mL (50nmol/L)Insufficiency: 20-30 ng/mL (50-75 nmol/L)Sufficiency: 30-100 ng/mL (75-250 nmol/L)Toxicity: >100 ng/mL (>250 nmol/L) BUN/creatinine ratioOrdered By: Michelle Mcfarlane on 10-27-2024 Urea nitrogen/Creatinine [Mass ratio] 17.5 mg/mg 10-20 [facility] Basic Metabolic Profile (BMP )on 10-27-2024 Anion gap [Moles/Vol] 12 mmol/L Normal 5-15 [facility] Comment on above: Performed By: #### L 500.2500, L501.0900 #### [facility] [address] [place], [address] BUN/CRE 17.5 RATIO Normal 10-20 [facility] Comment on above: Performed By: #### L 500.2500, L501.0900 #### [facility] [address] [place], [address] Calcium [Mass/Vol] 8.5 mg/dL Normal 7.6-11.0 [facility] Comment on above: Performed By: #### L 500.2500, L501.0900 #### [facility] [address] [place], [address] Chloride [Moles/Vol] 111 mmol/L High 96-108 [facility] Comment on above: Performed By: #### L 500.2500, L501.0900 #### [facility] [address] [place], [address] CO2 [Moles/Vol] 23.1 mmol/L Normal 22.0-29.0 [facility] Comment on above: Performed By: #### L 500.2500, L501.0900 #### [facility] [address] [place], [address] Creatinine [Mass/Vol] 1.89 mg/dL High 0.70-1.20 [facility] Comment on above: Performed By: #### L 500.2500, L501.0900 #### [facility] [address] [place], [address] GFR/1.73 sq M.predicted among non-blacks MDRD (S/P/Bld) [Vol rate/Area] 34 mL/min/{1.73_m2} Low >60 [facility] Comment on above: Result Comment: mL/m in/1.73m2 CKD-EPI Creatinine Equation (2020) Performed By: #### L 500.2500, L501.0900 #### [facility] [address] [place], [address] Glucose [Mass/Vol] 162 mg/dL High 70-99 [facility] Comment on above: Performed By: #### L 500.2500, L501.0900 #### [facility] [address] [place], [address] Potassium [Moles/Vol] 3.6 mmol/L Normal 3.3-5.1 [facility] Comment on above: Result Comment: Hemo lysis present, Results??could be affected. ?? Performed By: #### L 500.2500, L501.0900 #### [facility] [address] [place], [address] Sodium [Moles/Vol] 146 mmol/L High 133-145 [facility] Comment on above: Performed By: #### L 500.2500, L501.0900 #### [facility] [address] [place], [address] Urea nitrogen [Mass/Vol] 33 mg/dL High 4-19 [facility] Comment on above: Performed By: #### L 500.2500, L501.0900 #### [facility] [address] [place], [address] Carbon dioxide measurementOr dered By: Michelle Mcfarlane on 10-27-2024 CO2 [Moles/Vol] 23.1 mmol/L 22.0-29.0 [facility] Chloride measurementOrdered By: Michelle Mcfarlane on 10-27-2024 Chloride [Moles/Vol] 111 mmol/L High 96-108 [facility] Creatinine Unsp time (U) [Ma ss/Vol]Ordered By: Michelle Mcfarlane on 10-27-2024 Creatinine (U) [Mass/Vol] 92.50 mg/dL 39-259 [facility] GFR/1.73 sq M.predicted farooq g non-blacks MDRD (S/P/Bld) [Vol rate/Area]Ordered By: Michelle Mcfarlane on 10-27-2024 Estimated GFR (MDRD) Non-Af Amer 34 Low >60 [facility] Comment on above: mL/min/1.73m2 CKD-EP I Creatinine Equation (2020) Glomerular filtration rate ( GFR) estimation/1.73 sq m using serum, plasma, or whole bOrdered By: Michelle Mcfarlane on 10-27-2024 GFR/1.73 sq M.predicted among non-blacks MDRD (S/P/Bld) [Vol rate/Area] 34 mL/min/{1.73_m2} Low >60 [facility] Comment on above: mL/min/1.73m2 CKD-EP I Creatinine Equation (2020) Protein+Creatinine Ratio,Uri neon 10-27-2024 PROT:CRE RATIO 640 mg/g CRE High 0-200 [facility] Comment on above: Performed By: #### L 500.2500, L501.0900 #### [facility] [address] [place], [address] Protein (U) [Mass/Vol] 59.2 mg/dL High 0.0-12.0 [facility] Comment on above: Performed By: #### L 500.2500, L501.0900 #### [facility] [address] [place], [address] UR CREAT 92.50 mg/dL Normal 39-259 [facility] Comment on above: Performed By: #### L 500.2500, L501.0900 #### [facility] [place], [address] Protein/Creatinine (U) [Mass ratio]Ordered By: Michelle Mcfarlane on 10-27-2024 Urine Protein/Creatinine Ratio 640 mg/g CRE High 0-200 [facility] Random urine creatinine baljeet urement (mass/volume)Ordered By: Michelle Mcfarlane on 10-27-2024 Creatinine Unsp time (U) [Mass/Vol] 92.50 mg/dL 39-259 [facility] Serum creatinine measurement (mass/volume)Ordered By: Michelle Mcfarlane on 10-27-2024 Creatinine [Mass/Vol] 1.89 mg/dL High 0.70-1.20 [facility] Serum glucose measurement (m ass/volume)Ordered By: Michelle Mcfarlane on 10-27-2024 Glucose [Mass/Vol] 162 mg/dL High 70-99 [facility] Serum or plasma anion gap de termination (moles/volume)Ordered By: Michelle Mcfarlane on 10-27-2024 Anion gap [Moles/Vol] 12 mmol/L 5-15 [facility] Serum or plasma calcium baljeet urement (mass/volume)Ordered By: Michelle Mcfarlane on 10-27-2024 Calcium [Mass/Vol] 8.5 mg/dL 7.6-11.0 [facility] Serum or plasma potassium me asurementOrdered By: Michelle Mcfarlane on 10-27-2024 Potassium [Moles/Vol] 3.6 mmol/L 3.3-5.1 [facility] Comment on above: Hemolysis present, R esults could be affected. Serum or plasma sodium measu rement (moles/volume)Ordered By: Michelle Mcfarlane on 10-27-2024 Sodium [Moles/Vol] 146 mmol/L High 133-145 [facility] Serum or plasma urea nitroge n measurement (mass/volume)Ordered By: Michelle Mcfarlane on 10-27-2024 Urea nitrogen [Mass/Vol] 33 mg/dL High 4-19 [facility] Urine protein measurement (m ass/volume)Ordered By: Michelle Mcfarlane on 10-27-2024 Protein (U) [Mass/Vol] 59.2 mg/dL High 0.0-12.0 [facility] Urine protein/creatinine mas s ratioOrdered By: Michelle Mcfarlane on 10-27-2024 Protein/Creatinine (U) [Mass ratio] 640 mg/g CRE High 0-200 [facility] Cardiology Visit Reporton Cardiology Visit Report [facility] [address] [place], [place] [address] OFFICE VISIT Date of Service: 09/17/24 MR#: [id number] Acct: [id number] Name: RACHNA RECINOS Rep #: [id number] : 1940 Provider: ASA Stout Age/Sex: 83/M [place] [facility] [place]: Signed HPI HPI History of Present Illness Details: Rachna Recinos is an 83-year-old gentleman that presents here today for a cardiovascular follow-up. 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 He was seen By Dr. Antony for his carotid stenosis. Pt does not have any chest pain/heaviness. He does not have any worsening SOB. He does not have any palpitations that he is aware of. He does not have any edema. He has not had any falls. He does not have any bleeding issues. Intake Vital Signs 03/19/24 14:18 07/01/24 14:04 09/17/24 14:13 09/17/24 16:31 Height 6 ft 2 in 6 ft 2 in 6 ft 2 in Weight: 210 lb BMI 26.9 BP 161/76 H 161/76 H 140/60 H Blood Pressure Location Rt brachial Position Sitting Respiration 18 Pulse 79 Pulse Source Monitor Temp 97.7 F L Temperature Source Oral Pulse Oximetry (%) 96 Oxygen Delivery Method room air Intake Visit Reasons: 6 M FU Is patient in pain?: No Allergies latex Allergy (Verified 09/17/24 14:05) Other LAURA Inhibitors Adverse Reaction (Intermediate, Verified 09/17/24 14:05) cough enalapril Adverse Reaction (Intermediate, Verified 09/17/24 14:05) Shortness of breath adhesive tape Adverse Reaction (Verified 09/17/24 14:05) rash warfarin (From Coumadin) Adverse Reaction (Verified 09/17/24 14:05) bleeding under the skin Medications ???Medication ???Instructions ???Recorded ???Confirmed ???Type cholecalciferol (vitamin D3) 25 1,000 unit PO BID supplement 05/20/18 09/17/24 History mcg (1,000 unit) capsule ferrous gluconate 324 mg (37.5 mg 325 mg PO DAILY iron supplement 05/20/18 09/17/24 History iron) tablet insulin aspart U-100 100 unit/mL 5 unit subcut DINNER DM 05/20/18 09/17/24 History (3 mL) subcutaneous pen insulin aspart U-100 100 unit/mL 10 units subcut BREAKFAST DM 05/20/18 09/17/24 History (3 mL) subcutaneous pen multivitamin 1 each PO DAILY supplement 05/20/18 09/17/24 History omega-3 fatty acids-fish oil 300 1 each PO DAILY supplement 05/20/18 09/17/24 History mg-1,000 mg capsule apixaban 2.5 mg tablet (Eliquis) 2.5 mg PO BID blood thinner 06/29/20 09/17/24 History Handicap Parking Placard #1 ea 08/25/20 08/29/23 Rx albuterol sulfate 90 mcg/actuation 2 puff inhalation Q4H PRN fill as 11/22/20 09/17/24 Rx aerosol inhaler courtesy until 's office open #18 grams insulin glargine 100 unit/mL 10 unit SQ QHS DM 11/24/20 09/17/24 History subcutaneous solution lactobacillus comb no.10 20 1 each PO DAILY supplement 11/24/20 09/17/24 History billion cell capsule ascorbic acid (vitamin C) 1,000 mg 1,000 mg PO DAILY supplement 12/29/20 09/17/24 History tablet fluticasone propionate 50 2 spray intranasal DAILY congestion 12/29/20 09/17/24 History mcg/actuation nasal spray,suspension (Flonase Allergy Relief) albuterol sulfate 2.5 mg/3 mL 2.5 mg continuous nebulization QHS 01/30/21 09/17/24 History (0.083 %) solution for nebulization breathing empagliflozin 25 mg tablet 12.5 mg PO DAILY 03/24/22 09/17/24 History (Jardiance) guaifenesin 600 mg tablet, 600 mg PO BID 04/02/22 09/17/24 History extended release 12 hr (Mucinex) azelastine 137 mcg (0.1 %) nasal 1 spray intranasal QHS 05/22/23 09/17/24 History spray bevacizumab 25 mg/mL intravenous 12/24 (more content not included)... Normal [facility] Diagnostic total prostate sp ecific antigen (PSA) measurementOrdered By: Katherin Soriano on 09-02-2024 Prostate Specific Antigen Total 1.74 ng/mL 0.0-4.0 [facility] Comment on above: This test was perfor med using the TPSA assay method for the[facility] chemistry system. Values obtained with differentassay methods cannot be used interchangably.When changing PSA assays in the course of monitoring apatient, additional sequential testing should be carriedout to confirm baseline values. PSA,Total- [employer]icon PSA, DIAGNOSTIC 1.74 ng/mL Normal 0.0-4.0 [facility] Comment on above: Result Comment: This test was performed using the TPSA assay method for the [employer] chemistry system. Values obtained with different assay methods cannot be used interchangably. When changing PSA assays in the course of monitoring a patient, additional sequential testing should be carried out to confirm baseline values. Performed By: #### L 500.2500, L501.0900 #### [facility] [address] [place], [place], [address] Neurology Visit Reporton Neurology Visit Report [facility] [address] [facility], [address] [place], [place] [address] OFFICE VISIT Date of Service: 07/01/24 MR#: [id number] Acct: [id number] Name: RACHNA RECINOS Rep #: [id number] : 1940 Provider: Dr. Douglas torres MD Age/Sex: 83/M Location: [facility] Status: Signed with Addenda ADDENDUM by CORINNE Loyola on 07/03/24 at 1151 HPI Details: RACHNA RECINOS, is a 83 M who presents to the office today for Assessment and Plan Assessment and Plan (1) Mild cognitive impairment: Status: Acute Comment: Patient was referred for mild cognitive impairment. Mini-Mental status score is 25/30 which is at the lower limits of normal. Nevertheless he has a history which seems to indicate that he does have difficulty with execution of complex task. He also has several other problems including loss of hearing wearing hearing aids, bilateral macular degeneration, old industrial injury left upper extremity with single digit surgically maintained and left wrist splint and a congenitally small left thumb. 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 It is stable since in my opinion. This is also been documented by repeat MRI and CT scan reports. 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 At this point I do not think that adding a medication as Aricept would be of particular benefit to him. I did suggest to the the patient and the family that the patient may need to discontinue driving considering his multiple issues. We have decided to have the patient return in 6 months for reassessment and note his further progress. 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 He was referred 06/25/2024 by [facility] (Sruthi Munguia CNP) for mild cognitive impairment. This patient presents for evaluation of mild cognitive impairment. He is able to provide some information on his own behalf however his and daughter are present who are able to provide additional information. Records are also available for review. Patient is seen by me and nurse practitioner Sandy. Patient was referred with a diagnosis of mild cognitive impairment. Patient is driving a car at this time. (He has what macular degeneration of the right eye and dry macular degeneration left eye). He also wears bilateral hearing aids. Patient is ambulatory but family feels that he is somewhat unsteady. Patient has not had a fall. It seems that superficially. Patient is able to execute activities of daily living and remains very functional. 1 area of concern related to me by the patient is episodes that occur while he is driving. These episodes consist of his vision graying out and transient brief alteration of consciousness which may last 2 to 3 minutes according to the patient. This type of episode is likely cardiovascular episode of hypoperfusion. While here he seems to have a regular rhythm but he does have a prior history of A-fib, he is on a Eliquis. He does have a defibrillator in place however recent interrogation seem to indicate that it has not discharged according to data available on the chart. 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 There is a densely calcified mass in the region of the right [place] thalamic area. Compensatory enlargement of the lateral ventricle on that side is noted. The overlying cortex has diffuse atrophy involving both hemispheres. 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 He also has a small lacunar infarct in the right basal ganglia. This apparently is a nonactive and perhaps even unnoticed event for him. Patient does have an industrial injury to the left forearm. He is arm was caught in a press while he was working at [employer]. He has a thumb or finger digit surgically maintained on the left hand. Left hand is in a brace at the wrist. 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 Patient is a diabetic. He denies having any diabetic peripheral neuropathy. Patient also has a diagnosis of carotid stenosis listed on the chart. Exam Const Other: Blood pressure is 132/70 pulse 81 respiration 17 temperature is 98.2 O2 sat is 97%. General appearance is that of gentleman with a BMI of 26.9. HEENT shows he i (more content not included)... Normal [facility] Comprehensive Metabolic Prof ilon 06-17-2024 Albumin [Mass/Vol] 3.4 g/dL Normal 3.2-5.0 [facility] Comment on above: Performed By: #### L 500.2500, L501.0900 #### [facility] [address] [place], [address] Albumin/Globulin [Mass ratio] 1.0 {ratio} Normal 0.9-2.4 [facility] Comment on above: Performed By: #### L 500.2500, L501.0900 #### [facility] [address] [place], [address] ALK P 89 U/L Normal 45-117 [facility] Comment on above: Performed By: #### L 500.2500, L501.0900 #### [facility] [address] [place], [address] ALT [Catalytic activity/Vol] 39 U/L Normal 16-61 [facility] Comment on above: Performed By: #### L 500.2500, L501.0900 #### [facility] [address] [place], [address] AST [Catalytic activity/Vol] 17 U/L Normal 15-37 [facility] Comment on above: Performed By: #### L 500.2500, L501.0900 #### [facility] [address] [place], [address] Bilirubin [Mass/Vol] 0.40 mg/dL Normal 0.20-1.00 [facility] Comment on above: Result Comment: For patients on eltrombopag therapy, use of Dimension Lequire TBIL is not recommended. Performed By: #### L 500.2500, L501.0900 #### [facility] [address] [place], [address] BUN/CRE 17.4 RATIO Normal 10-20 [facility] Comment on above: Performed By: #### L 500.2500, L501.0900 #### [facility] [address] [place], [address] CA,Total 8.6 mg/dL Normal 8.5-10.1 [facility] Comment on above: Performed By: #### L 500.2500, L501.0900 #### [facility] [address] [place], [address] Chloride [Moles/Vol] 112 mmol/L High 98-107 [facility] Comment on above: Performed By: #### L 500.2500, L501.0900 #### [facility] [address] [place], [address] CO2 [Moles/Vol] 23.0 mmol/L Normal 21.0-32.0 [facility] Comment on above: Performed By: #### L 500.2500, L501.0900 #### [facility] [address] [place], [address] Creatinine [Mass/Vol] 1.78 mg/dL High 0.70-1.30 [facility] Comment on above: Result Comment: The validity of the calculated GFR GFRAA in patients over 70 years has not been determined. Clinical correlation is essential. Performed By: #### L 500.2500, L501.0900 #### [facility] [address] [place], [address] EST GFR - AA 47 mL/min Low >60 [facility] Comment on above: Result Comment: Afri can [place] GFR Calc Performed By: #### L 500.2500, L501.0900 #### [facility] [address] [place], [address] GAP 7 Normal 5-15 [facility] Comment on above: Performed By: #### L 500.2500, L501.0900 #### [facility] [address] [place], [address] GFR/1.73 sq M.predicted among non-blacks MDRD (S/P/Bld) [Vol rate/Area] 39 mL/min/{1.73_m2} Low >60 [facility] Comment on above: Result Comment: Non- GFR Calc Performed By: #### L 500.2500, L501.0900 #### [facility] [address] [place], [address] Globulin (S) [Mass/Vol] 3.3 g/dL Normal 2.2-4.2 [facility] Comment on above: Performed By: #### L 500.2500, L501.0900 #### [facility] [address] [place], [address] Glucose [Mass/Vol] 141 mg/dL High 74-106 [facility] Comment on above: Result Comment: Fast ing Glucose result greater than or equal to 126 mg/dL suggests DIABETES MELLITUS per A.D.A. criteria. Performed By: #### L 500.2500, L501.0900 #### [facility] [address] [place], [address] Potassium [Moles/Vol] 3.6 mmol/L Normal 3.5-5.1 [facility] Comment on above: Performed By: #### L 500.2500, L501.0900 #### [facility] [address] [place], [address] Sodium [Moles/Vol] 142 mmol/L Normal 136-145 [facility] Comment on above: Performed By: #### L 500.2500, L501.0900 #### [facility] [address] [place], [address] T PROT 6.7 g/dL Normal 6.4-8.2 [facility] Comment on above: Performed By: #### L 500.2500, L501.0900 #### [facility] [address] [place], [address] Urea nitrogen [Mass/Vol] 31 mg/dL High 7-18 [facility] Comment on above: Performed By: #### L 500.2500, L501.0900 #### [facility] [address] [place], [address] Free T3on 06-17-2024 Free T3 [Mass/Vol] 1.8 pg/mL Low 2.18-3.98 [facility] Comment on above: Performed By: #### L 501.9520, L506.0400, L500.4100, L501.9985, L500.4050, L501.67817, L509.1000, L506.1001 #### [facility] [address] [place], [address] Hemoglobin A1con 06-17-2024 HbA1c (Bld) [Mass fraction] 6.8 % High 3.8-5.6 [facility] Comment on above: Result Comment: Norm al < 5.7 % Prediabetic 5.7 - 6.4 % Diabetic >or= 6.5 % Please note range changes. Performed By: #### L 501.9520, L506.0400, L500.4100, L501.9985, L500.4050, L501.69921, L509.1000, L506.1001 #### [facility] [address] [place], [address] Lipid Profileon 06-17-2024 Cholesterol [Mass/Vol] 152 mg/dL Normal 200 [facility] Comment on above: Result Comment: <200 mg/dL Desirable 200-240 mg/dL Borderline >240 mg/dL High Risk Performed By: #### L 500.2500, L501.0900 #### [facility] [address] [place], [address] Cholesterol in HDL [Mass/Vol] 48 mg/dL Normal [facility] Comment on above: Result Comment: The drugs N-Acetylcysteine and Metamizole may falsely depress this assay. Reference Range HDL <40 mg/dL Low HDL Cholesterol HDL >or= 60 mg/dL High HDL Cholesterol Performed By: #### L 500.2500, L501.0900 #### [facility] [address] [place], [address] Cholesterol in LDL [Mass/Vol] 64 mg/dL Normal 0-130 [facility] Comment on above: Performed By: #### L 500.2500, L501.0900 #### [facility] [address] [place], [address] Cholesterol in VLDL [Mass/Vol] 40 mg/dL Normal 5-40 [facility] Comment on above: Performed By: #### L 500.2500, L501.0900 #### [facility] [address] [place], [address] Triglyceride [Mass/Vol] 198 mg/dL Normal [facility] Comment on above: Result Comment: The drugs N-Acetylcysteine and Metamizole may falsely depress this assay. Serum Triglycerides Reference Interval Normal <150 mg/dL Borderline high 150 - 199 mg/dL High 200 - 499 mg/dL Very High > or = 500 mg/dL Performed By: #### L 500.2500, L501.0900 #### [facility] [address] [place], [address] Microalb:Creat Ratio,Random URon 06-17-2024 Creatinine [Mass/Vol] 61.40 mg/dL Normal NO RAN GE EST. [facility] Comment on above: Performed By: #### L 501.9520, L506.0400, L500.4100, L501.9985, L500.4050, L501.33585, L509.1000, L506.1001 #### [facility] [address] [place], [address] MALB:CRE 382.7 mg/g CRE High <30 mg/g CRE [facility] Comment on above: Performed By: #### L 501.9520, L506.0400, L500.4100, L501.9985, L500.4050, L501.43382, L509.1000, L506.1001 #### [facility] [address] [place], [address] MICROALBUMIN,UR 235.0 mg/L Normal NO RANGE EST. [facility] Comment on above: Performed By: #### L 501.9520, L506.0400, L500.4100, L501.9985, L500.4050, L501.55597, L509.1000, L506.1001 #### [facility] [address] [place], [address] T4 Free Directon 06-17-2024 T4 FREE DIRECT 0.91 ng/dL Normal 0.76-1.46 [facility] Comment on above: Performed By: #### L 501.9520, L506.0400, L500.4100, L501.9985, L500.4050, L501.19764, L509.1000, L506.1001 #### [facility] [address] [place], [address] Thyroid Stim Hormone (TSH)on 06-17-2024 TSH 2.810 uIU/mL Normal 0.358-3.74 0 [facility] Comment on above: Performed By: #### L 501.9520, L506.0400, L500.4100, L501.9985, L500.4050, L501.63923, L509.1000, L506.1001 #### [facility] [address] [place], [address] Vitamin D,25 Hydroxyon 06-17 Vitamin D 25-OH 36.2 ng/mL Normal [facility] Comment on above: Result Comment: Latanya min D 25(OH) Status Range Deficiency <20 ng/mL (50nmol/L) Insufficiency 20 - 30 ng/mL (50 - 75 nmol/L) Sufficiency 30 - 100 ng/mL (75 - 250 nmol/L) Toxicity >100 ng/mL (>250 nmol/L) Performed By: #### L 500.2500, L501.0900 #### [facility] [address] [place], [address] Serum Creatinine AND GFRon 1 Creatinine [Mass/Vol] 1.93 mg/dL High 0.70-1.30 [facility] Comment on above: Result Comment: The validity of the calculated GFR GFRAA in patients over 70 years has not been determined. Clinical correlation is essential. Performed By: #### L 501.9520, L506.0400, L500.4100, L501.9985, L500.4050, L501.87741, L509.1000, L506.1001 #### [facility] [address] [place], [address] EST GFR - AA 43 mL/min Low >60 [facility] Comment on above: Result Comment: Afri can [place] GFR Calc Performed By: #### L 501.9520, L506.0400, L500.4100, L501.9985, L500.4050, L501.92699, L509.1000, L506.1001 #### [facility] [address] [place], [address] GFR/1.73 sq M.predicted among non-blacks MDRD (S/P/Bld) [Vol rate/Area] 35 mL/min/{1.73_m2} Low >60 [facility] Comment on above: Result Comment: Non- GFR Calc Performed By: #### L 501.9520, L506.0400, L500.4100, L501.9985, [id number], [id number], L509.1000, L506.1001 #### [facility] [address] [place], [address] ECG B/O W INTERP (MED OFFICE )on 03-27-2024 Interpretation and review of laboratory results Abnormal [facility] Sinus rhythm 81 bpm; first-degree AV block (DE 252 ms); PACs; nonspecific IVCD (QRS 150 ms); possible lateral infarct pattern; QTc 506 ms [facility] Thin prep Papanicolaou smear with manual screeningOrdered By: Vineet Wright on 12-25-2023 Thin prep Papanicolaou smear with manual screening 83 mg/dL 74-106 [facility] Comment on above: MANAGEMENT OF PATIEN T CARE PER NURSING PROTOCOL Basophil percentageOrdered B y: Shu Gotti on 12-18-2023 Bilirubin [Mass/Vol] 0.40 mg/dL 0.20-1.00 [facility] Comment on above: For patients on eltr ombopag therapy, use of Dimension Lequire TBIL is not recommended. Chloride [Moles/Vol] 112 mmol/L 98-107 [facility] Glucose [Mass/Vol] 190 mg/dL 74-106 [facility] Comment on above: Fasting Glucose resu lt greater than or equal to 126 mg/dL suggests DIABETES MELLITUS per A.D.A. criteria. Hemoglobin (Bld) [Mass/Vol] 12.9 g/dL 13.0-16.5 [facility] Potassium [Moles/Vol] 4.6 mmol/L 3.5-5.1 [facility] Protein [Mass/Vol] 7.1 g/dL 6.4-8.2 [facility] Sodium [Moles/Vol] 142 mmol/L 136-145 [facility] WBC (Bld) [#/Vol] 10.4 10*3/uL 4.4-11.0 [facility] Determination of erythrocyte mean corpuscular volume (MCV)Ordered By: Shushahram Gotti on 12-18-2023 MCV (RBC) [Entitic vol] 96.2 fL 80-94 [facility] Erythrocyte distribution wid th ratioOrdered By: [facility] on 12-18-2023 Erythrocyte distribution width (RBC) [Ratio] 14.3 % 11.6-14.6 [facility] Erythrocyte distribution wid th standard deviationOrdered By: [facility] on 12-18-2023 Erythrocyte distribution width (RBC) [Entitic vol] 49.7 fL 35.1-43.9 [facility] Hematocrit Auto (Bld) [Volum e fraction]Ordered By: [facility] on 12-18-2023 Hematocrit (Bld) [Volume fraction] 40.3 % 40-54 [facility] - Chemistry and C hemistry - challengeOrdered By: [facility] on 12-18-2023 Albumin/Globulin [Mass ratio] 0.9 {ratio} 0.9-2.4 [facility] ALP [Catalytic activity/Vol] 108 U/L 45-117 [facility] ALT [Catalytic activity/Vol] 35 U/L 16-61 [facility] CO2 [Moles/Vol] 23.0 mmol/L 21.0-32.0 [facility] Globulin (S) [Mass/Vol] 3.7 g/dL 2.2-4.2 [facility] Urea nitrogen/Creatinine [Mass ratio] 15.9 mg/mg 10-20 [facility] - Hematology and Cell countsOrdered By: [facility] on 12-18-2023 MCH (RBC) [Entitic mass] 30.8 pg 27.0-32.0 [facility] MCHC (RBC) [Mass/Vol] 32.0 g/dL 32-36 [facility] Platelet mean volume (Bld) [Entitic vol] 10.3 fL 6.2-12.0 [facility] Platelets (Bld) [#/Vol] 211 10*3/uL 150-450 [facility] No Panel InformationOrdered By: Shu Gotti on 12-18-2023 Estimated GFR (MDRD) Amer 41 mL/min >60 [facility] Comment on above: GFR Calc Estimated GFR (MDRD) Non-Af Amer 34 mL/min >60 [facility] Comment on above: Non- GFR Calc Free Triiodothyronine (T3) pg/dL 0.9 pg/mL 2.18-3.98 [facility] Urine Microalbumin/Creatini ne Ratio 285.9 mg/g CRE <30 [facility] Vitamin D 25-Hydroxy 55.1 ng/mL [facility] Comment on above: Vitamin D 25(OH) Sta tus Range Deficiency <20 ng/mL (50nmol/L) Insufficiency 20 - 30 ng/mL (50 - 75 nmol/L) Sufficiency 30 - 100 ng/mL (75 - 250 nmol/L) Toxicity >100 ng/mL (>250 nmol/L) RBC Auto (Bld) [#/Vol]Ordere d By: Shu Gotti on 12-18-2023 RBC (Bld) [#/Vol] 4.19 10*6/uL 4.6-6.2 [facility] Serum or plasma calcium baljeet urement (mass/volume)Ordered By: Shu Gotti on 12-18-2023 Calcium [Mass/Vol] 9.1 mg/dL 8.5-10.1 [facility] Serum or plasma creatinine m easurement (mass/volume)Ordered By: Shu Gotti on 12-18-2023 Creatinine [Mass/Vol] 2.01 mg/dL 0.70-1.30 [facility] Comment on above: The validity of the calculated GFR & GFRAA in patients over 70 years has not been determined. Clinical correlation is essential. Serum or plasma thyroid stim ulating hormone (TSH) measurement (units/volume)Ordered By: Shu Shihan on 12-18-2023 TSH Qn 0.98 uIU/mL 0.358-3.74 [facility] Serum or plasma urea nitroge n measurement (mass/volume)Ordered By: Shushahram Gotti on 12-18-2023 Urea nitrogen [Mass/Vol] 32 mg/dL 7-18 [facility] Thin prep Papanicolaou smear with manual screeningOrdered By: Shu Ragyobany on 12-18-2023 Thin prep Papanicolaou smear with manual screening 3.4 g/dL 3.2-5.0 [facility] Thin prep Papanicolaou smear with manual screening 19 U/L 15-37 [facility] Thin prep Papanicolaou smear with manual screening 7 5-15 [facility] Thin prep Papanicolaou smear with manual screening 249.0 mg/L NO RANGE EST. [facility] Urine creatinine measurement (mass/volume)Ordered By: [facility] on 12-18-2023 Creatinine (U) [Mass/Vol] 87.10 mg/dL NO RANGE EST. [facility] Whole blood hemoglobin A1c/t otal hemoglobin ratio (mass fraction)Ordered By: [facility] on 12-18-2023 HbA1c (Bld) [Mass fraction] 6.8 % 3.8-5.6 [facility] Comment on above: Normal < 5.7 % Predi abetic 5.7 - 6.4 % Diabetic >or= 6.5 % Please note range changes. Basophil percentageOrdered B y: Katherin Christie on 12-13-2023 Bilirubin [Mass/Vol] 0.40 mg/dL 0.20-1.00 [facility] Comment on above: For patients on eltr ombopag therapy, use of Dimension Lequire TBIL is not recommended. Chloride [Moles/Vol] 113 mmol/L 98-107 [facility] Glucose [Mass/Vol] 182 mg/dL 74-106 [facility] Comment on above: Fasting Glucose resu lt greater than or equal to 126 mg/dL suggests DIABETES MELLITUS per A.D.A. criteria. Potassium [Moles/Vol] 3.9 mmol/L 3.5-5.1 [facility] Protein [Mass/Vol] 6.5 g/dL 6.4-8.2 [facility] Sodium [Moles/Vol] 140 mmol/L 136-145 [facility] - Chemistry and C hemistry - challengeOrdered By: Katherin Soriano on 12-13-2023 Natriuretic peptide B (Bld) [Mass/Vol] 80.3 pg/mL 0-100 [facility] Albumin/Globulin [Mass ratio] 0.9 {ratio} 0.9-2.4 [facility] ALP [Catalytic activity/Vol] 101 U/L 45-117 [facility] ALT [Catalytic activity/Vol] 38 U/L 16-61 [facility] CO2 [Moles/Vol] 21.0 mmol/L 21.0-32.0 [facility] Globulin (S) [Mass/Vol] 3.4 g/dL 2.2-4.2 [facility] Urea nitrogen/Creatinine [Mass ratio] 16.3 mg/mg 10-20 [facility] No Panel InformationOrdered By: Katherin Soriano on 12-13-2023 Estimated GFR (MDRD) Amer 40 mL/min >60 [facility] Comment on above: GFR Calc Estimated GFR (MDRD) Non-Af Amer 33 mL/min >60 [facility] Comment on above: Non- GFR Calc Serum or plasma calcium baljeet urement (mass/volume)Ordered By: Katherin Soriano on 12-13-2023 Calcium [Mass/Vol] 8.3 mg/dL 8.5-10.1 [facility] Serum or plasma creatinine m easurement (mass/volume)Ordered By: Katherin Soriano on 12-13-2023 Creatinine [Mass/Vol] 2.03 mg/dL 0.70-1.30 [facility] Comment on above: The validity of the calculated GFR & GFRAA in patients over 70 years has not been determined. Clinical correlation is essential. Serum or plasma urea nitroge n measurement (mass/volume)Ordered By: Katherin Soriano on 12-13-2023 Urea nitrogen [Mass/Vol] 33 mg/dL 7-18 [facility] Thin prep Papanicolaou smear with manual screeningOrdered By: Katherin Soriano on 04-18-2024 Thin prep Papanicolaou smear with manual screening 3.1 g/dL 3.2-5.0 [facility] Thin prep Papanicolaou smear with manual screening 24 U/L 15-37 [facility] Thin prep Papanicolaou smear with manual screening 6 5-15 [facility] Whole blood hemoglobin A1c/t otal hemoglobin ratio (mass fraction)Ordered By: Katherin Soriano on 12-13-2023 HbA1c (Bld) [Mass fraction] 7.1 % 3.8-5.6 [facility] Comment on above: Normal < 5.7 % Predi abetic 5.7 - 6.4 % Diabetic >or= 6.5 % Please note range changes. Basophil percentageOrdered B y: Michelle Mcfarlane on 10-27-2023 Chloride [Moles/Vol] 113 mmol/L 98-107 [facility] Glucose [Mass/Vol] 81 mg/dL 74-106 [facility] Potassium [Moles/Vol] 3.6 mmol/L 3.5-5.1 [facility] Comment on above: Slight Hemolysis, Re sult may be falsely increased. Sodium [Moles/Vol] 143 mmol/L 136-145 [facility] - Chemistry and C hemistry - challengeOrdered By: Michelle Mcfarlane on 10-27-2023 CO2 [Moles/Vol] 25.0 mmol/L 21.0-32.0 [facility] Urea nitrogen/Creatinine [Mass ratio] 20.4 mg/mg 10-20 [facility] No Panel InformationOrdered By: Michelle Mcfarlane on 10-27-2023 Estimated GFR (MDRD) Amer 45 mL/min >60 [facility] Comment on above: GFR Calc Estimated GFR (MDRD) Non-Af Amer 37 mL/min >60 [facility] Comment on above: Non- GFR Calc Serum or plasma calcium baljeet urement (mass/volume)Ordered By: Michelle Mcfarlane on 10-27-2023 Calcium [Mass/Vol] 9.1 mg/dL 8.5-10.1 [facility] Serum or plasma creatinine m easurement (mass/volume)Ordered By: Michelle Mcfarlane on 10-27-2023 Creatinine [Mass/Vol] 1.86 mg/dL 0.70-1.30 [facility] Comment on above: The validity of the calculated GFR & GFRAA in patients over 70 years has not been determined. Clinical correlation is essential. Serum or plasma urea nitroge n measurement (mass/volume)Ordered By: Michelle Mcfarlane on 10-27-2023 Urea nitrogen [Mass/Vol] 38 mg/dL 7-18 [facility] Thin prep Papanicolaou smear with manual screeningOrdered By: Michelle Mcfarlane on 10-27-2023 Thin prep Papanicolaou smear with manual screening 5 5-15 [facility] Basophil percentageOrdered B y: Shu Gotti on 08-29-2023 Bilirubin [Mass/Vol] 0.30 mg/dL 0.20-1.00 [facility] Comment on above: For patients on eltr ombopag therapy, use of Dimension Lequire TBIL is not recommended. Chloride [Moles/Vol] 114 mmol/L 98-107 [facility] Cholesterol [Mass/Vol] 113 mg/dL <200 [facility] Comment on above: <200 mg/dL Desirable 200-240 mg/dL Borderline >240 mg/dL High Risk Glucose [Mass/Vol] 103 mg/dL 74-106 [facility] Comment on above: Fasting Glucose resu lt from 100 to 125 mg/dL suggests IMPAIRED HOMEOSTASIS per A.D.A. criteria. Potassium [Moles/Vol] 3.4 mmol/L 3.5-5.1 [facility] Protein [Mass/Vol] 7.1 g/dL 6.4-8.2 [facility] Sodium [Moles/Vol] 142 mmol/L 136-145 [facility] Triglyceride [Mass/Vol] 102 mg/dL <199 [facility] Comment on above: The drugs N-Acetylcy steine and Metamizole may falsely depress this assay.Serum Triglycerides Reference Interval Normal <150 mg/dL Borderline high 150 - 199 mg/dL High 200 - 499 mg/dL Very High > or = 500 mg/dL Laboratory - Chemistry and C hemistry - challengeOrdered By: Shu Gotti on 08-29-2023 ALP [Catalytic activity/Vol] 101 U/L 45-117 [facility] ALT [Catalytic activity/Vol] 22 U/L 16-61 [facility] CO2 [Moles/Vol] 23.0 mmol/L 21.0-32.0 [facility] Free T4 [Mass/Vol] 1.17 ng/dL 0.76-1.46 [facility] Globulin (S) [Mass/Vol] 4.0 g/dL 2.2-4.2 [facility] Urea nitrogen/Creatinine [Mass ratio] 14.3 mg/mg 10-20 [facility] No Panel InformationOrdered By: Shu Gotti on 08-29-2023 Estimated GFR (MDRD) Amer 40 mL/min >60 [facility] Comment on above: GFR Calc Estimated GFR (MDRD) Non-Af Amer 33 mL/min >60 [facility] Comment on above: Non- GFR Calc Free Triiodothyronine (T3) pg/dL 1.6 pg/mL 2.18-3.98 [facility] Thyroid Stimulating Hormone (TSH) 2.53 uIU/mL 0.358-3.74 [facility] Serum or plasma albumin baljeet urement (mass/volume)Ordered By: Shushahram Gotti on 08-29-2023 Albumin [Mass/Vol] 3.1 g/dL 3.2-5.0 [facility] Serum or plasma albumin/glob ulin mass ratioOrdered By: Shushahram Gotti on 08-29-2023 Albumin/Globulin [Mass ratio] 0.8 {ratio} 0.9-2.4 [facility] Serum or plasma calcium baljeet urement (mass/volume)Ordered By: Shushahram Gotti on 08-29-2023 Calcium [Mass/Vol] 8.9 mg/dL 8.5-10.1 [facility] Serum or plasma cholesterol in HDL measurement (mass/volume)Ordered By: Shushahram Gotti on 08-29-2023 Cholesterol in HDL [Mass/Vol] 53 mg/dL >40 [facility] Comment on above: The drugs N-Acetylcy steine and Metamizole may falsely depress this assay. Reference Range HDL <40 mg/dL Low HDL Cholesterol HDL >or= 60 mg/dL High HDL Cholesterol Serum or plasma cholesterol in VLDL measurement (mass/volume)Ordered By: Shu Gotti on 08-29-2023 Cholesterol in VLDL [Mass/Vol] 20 mg/dL 5-40 [facility] Serum or plasma creatinine m easurement (mass/volume)Ordered By: Shu Gotti on 08-29-2023 Creatinine [Mass/Vol] 2.03 mg/dL 0.70-1.30 [facility] Comment on above: The validity of the calculated GFR & GFRAA in patients over 70 years has not been determined. Clinical correlation is essential. Serum or plasma low density lipoprotein (LDL) cholesterol measurement (mass/volume)Ordered By: Shushahram Gotti on 08-29-2023 Cholesterol in LDL [Mass/Vol] 40 mg/dL 0-130 [facility] Serum or plasma urea nitroge n measurement (mass/volume)Ordered By: Shushahram Gotti on 08-29-2023 Urea nitrogen [Mass/Vol] 29 mg/dL 7-18 [facility] Thin prep Papanicolaou smear with manual screeningOrdered By: Shushahram Gotti on 08-29-2023 Thin prep Papanicolaou smear with manual screening 15 U/L 15-37 [facility] Thin prep Papanicolaou smear with manual screening 5 5-15 [facility] Whole blood hemoglobin A1c/t otal hemoglobin ratio (mass fraction)Ordered By: Shu Gotti on 08-29-2023 HbA1c (Bld) [Mass fraction] 6.9 % 3.8-5.6 [facility] Comment on above: Normal < 5.7 % Predi abetic 5.7 - 6.4 % Diabetic >or= 6.5 % Please note range changes. Basophil percentageOrdered B y: Edward Rosado on 05-20-2023 Basophil percentage 0-5 SEEN /hpf 0-5 [facility] Bilirubin Test strip Ql (U)O rdered By: Edward Rosado on 05-20-2023 Bilirubin Ql (U) Negative Negative [facility] Culture, urineOrdered By: Francisca Rosado on 05-20-2023 Bacteria identified Cx Nom (U) Mixed Gram Pos & Gram Neg Org [facility] Bacteria identified Cx Nom (U) Mixed Gram Pos & Gram Neg Org [facility] Ketones Test strip Ql (U)Ord ered By: Edward Rosado on 05-20-2023 Ketones Ql (U) Negative Negative [facility] - Chemistry and C hemistry - challengeon 05-20-2023 Glucose Ql (U) 100 g/dL [facility] pH (U) 6.0 [pH] [facility] Specific gravity (U) [Rel density] 1.015 [facility] - Specimen inform ationon 05-20-2023 Clarity (U) Clear [facility] Color (U) Yellow [facility] Mucus LM Ql (Urine sed)Order ed By: Edward Rosado on 05-20-2023 Mucus Ql (Urine sed) 0 SEEN /hpf [facility] Nitrite Test strip Ql (U)Ord ered By: Edward Rosado on 05-20-2023 Nitrite Ql (U) Negative Negative [facility] Protein Test strip Ql (U)Ord ered By: Edward Rosado on 05-20-2023 Protein Ql (U) 30 mg/dl Negative [facility] Squamous epithelial cells de tection in urine sediment by light microscopyOrdered By: Edward Rosado on 05-20-2023 Epithelial cells.squamous LM Ql (Urine sed) 0-5 SEEN /hpf 0-5 [facility] Urine blood detectionOrdered By: Edward Rosado on 05-20-2023 RBC Ql (U) Negative Negative [facility] RBC Ql (U) 0 SEEN /hpf 0-5 [facility] Urine clarityOrdered By: Angus Rosado on 05-20-2023 Clarity (U) Clear Clear [facility] Urine color determinationOrd ered By: Edward Rosado on 05-20-2023 Color (U) Yellow Yellow [facility] Urine glucose detectionOrder ed By: Edward Rosado on 05-20-2023 Glucose Ql (U) 1000 mg/dl Normal [facility] Urine leukocyte esterase det ection by dipstickOrdered By: Edward Rosado on 05-20-2023 Leukocyte esterase Test strip Ql (U) Negative Negative [facility] Urine pHOrdered By: Edward arroyo on 05-20-2023 pH (U) 6.0 [pH] 5.0 - 8.0 [facility] Urine sediment bacteria coun t by microscopy (number/high power field)Ordered By: Edward Rosado on 05-20-2023 Bacteria LM.HPF (Urine sed) [#/Area] 0 /[HPF] None Seen [facility] Urine specific gravity measu rementOrdered By: Edward Rosado on 05-20-2023 Specific gravity (U) [Rel density] 1.015 1.002-1.03 0 [facility] Urobilinogen Auto test strip Ql (U)Ordered By: Edward Rosado on 05-20-2023 Urobilinogen Ql (U) Normal mg/dl Normal [facility] Basophil percentageOrdered B y: Shu Gotti on 05-15-2023 Bilirubin [Mass/Vol] 0.30 mg/dL 0.20-1.00 [facility] Comment on above: For patients on eltr ombopag therapy, use of Dimension Lequire TBIL is not recommended. Chloride [Moles/Vol] 113 mmol/L 98-107 [facility] Cholesterol [Mass/Vol] 128 mg/dL <200 [facility] Comment on above: <200 mg/dL Desirable 200-240 mg/dL Borderline >240 mg/dL High Risk Glucose [Mass/Vol] 202 mg/dL 74-106 [facility] Comment on above: Glucose result great er than or equal to 200 mg/dLsuggests DIABETES MELLITUS per A.D.A. criteria. Potassium [Moles/Vol] 4.2 mmol/L 3.5-5.1 [facility] Protein [Mass/Vol] 7.0 g/dL 6.4-8.2 [facility] Sodium [Moles/Vol] 142 mmol/L 136-145 [facility] Triglyceride [Mass/Vol] 122 mg/dL <199 [facility] Comment on above: The drugs N-Acetylcy steine and Metamizole may falsely depress this assay.Serum Triglycerides Reference Interval Normal <150 mg/dL Borderline high 150 - 199 mg/dL High 200 - 499 mg/dL Very High > or = 500 mg/dL Laboratory - Chemistry and C hemistry - challengeOrdered By: Shu Gotti on 05-15-2023 ALP [Catalytic activity/Vol] 99 U/L 45-117 [facility] ALT [Catalytic activity/Vol] 22 U/L 16-61 [facility] CO2 [Moles/Vol] 23.0 mmol/L 21.0-32.0 [facility] Free T4 [Mass/Vol] 1.02 ng/dL 0.76-1.46 [facility] Globulin (S) [Mass/Vol] 3.5 g/dL 2.2-4.2 [facility] Urea nitrogen/Creatinine [Mass ratio] 16.7 mg/mg 10-20 [facility] No Panel InformationOrdered By: Shu Gotti on 05-15-2023 Estimated GFR (MDRD) Amer 37 mL/min >60 [facility] Comment on above: GFR Calc Estimated GFR (MDRD) Non-Af Amer 30 mL/min >60 [facility] Comment on above: Non- GFR Calc Free Triiodothyronine (T3) pg/dL 1.9 pg/mL 2.18-3.98 [facility] Thyroid Stimulating Hormone (TSH) 4.40 uIU/mL 0.358-3.74 [facility] Vitamin D 25-Hydroxy 50.8 ng/mL [facility] Comment on above: Vitamin D 25(OH) Sta tus Range Deficiency <20 ng/mL (50nmol/L) Insufficiency 20 - 30 ng/mL (50 - 75 nmol/L) Sufficiency 30 - 100 ng/mL (75 - 250 nmol/L) Toxicity >100 ng/mL (>250 nmol/L) Serum or plasma albumin baljeet urement (mass/volume)Ordered By: Shu Gotti on 05-15-2023 Albumin [Mass/Vol] 3.5 g/dL 3.2-5.0 [facility] Serum or plasma albumin/glob ulin mass ratioOrdered By: Shushahram Gotti on 05-15-2023 Albumin/Globulin [Mass ratio] 1.0 {ratio} 0.9-2.4 [facility] Serum or plasma calcium baljeet urement (mass/volume)Ordered By: Shu Gotti on 05-15-2023 Calcium [Mass/Vol] 8.6 mg/dL 8.5-10.1 [facility] Serum or plasma cholesterol in HDL measurement (mass/volume)Ordered By: Shu Gotti on 05-15-2023 Cholesterol in HDL [Mass/Vol] 54 mg/dL >40 [facility] Comment on above: The drugs N-Acetylcy steine and Metamizole may falsely depress this assay. Reference Range HDL <40 mg/dL Low HDL Cholesterol HDL >or= 60 mg/dL High HDL Cholesterol Serum or plasma cholesterol in VLDL measurement (mass/volume)Ordered By: Shu Gotti on 05-15-2023 Cholesterol in VLDL [Mass/Vol] 24 mg/dL 5-40 [facility] Serum or plasma creatinine m easurement (mass/volume)Ordered By: Shu Gotti on 05-15-2023 Creatinine [Mass/Vol] 2.21 mg/dL 0.70-1.30 [facility] Comment on above: The validity of the calculated GFR & GFRAA in patients over 70 years has not been determined. Clinical correlation is essential. Serum or plasma low density lipoprotein (LDL) cholesterol measurement (mass/volume)Ordered By: Shu Gotti on 05-15-2023 Cholesterol in LDL [Mass/Vol] 50 mg/dL 0-130 [facility] Serum or plasma urea nitroge n measurement (mass/volume)Ordered By: Shushahram Gotti on 05-15-2023 Urea nitrogen [Mass/Vol] 37 mg/dL 7-18 [facility] Thin prep Papanicolaou smear with manual screeningOrdered By: Shushahram Gotti on 05-15-2023 Thin prep Papanicolaou smear with manual screening 14 U/L 15-37 [facility] Thin prep Papanicolaou smear with manual screening 6 5-15 [facility] Whole blood hemoglobin A1c/t otal hemoglobin ratio (mass fraction)Ordered By: Shu Gotti on 05-15-2023 HbA1c (Bld) [Mass fraction] 7.1 % 3.8-5.6 [facility] Comment on above: Normal < 5.7 % Predi abetic 5.7 - 6.4 % Diabetic >or= 6.5 % Please note range changes. Basophil percentageOrdered B y: Katherin Soriano on 05-01-2023 Cholesterol [Mass/Vol] 94 mg/dL <200 [facility] Comment on above: <200 mg/dL Desirable 200-240 mg/dL Borderline >240 mg/dL High Risk Triglyceride [Mass/Vol] 104 mg/dL <199 [facility] Comment on above: The drugs N-Acetylcy steine and Metamizole may falsely depress this assay.Serum Triglycerides Reference Interval Normal <150 mg/dL Borderline high 150 - 199 mg/dL High 200 - 499 mg/dL Very High > or = 500 mg/dL No Panel InformationOrdered By: Katherin Soriano on 05-01-2023 Prostate Specific Antigen Screen 1.01 ng/mL 0.00-4.00 [facility] Comment on above: This test was perfor med using the TPSA assay method for [employer] chemistry system. Values obtained with differentassay methods cannot be used interchangably.When changing PSA assays in the course of monitoring apatient, additional sequential testing should be carriedout to confirm baseline values. Thyroid Stimulating Hormone (TSH) 4.61 uIU/mL 0.358-3.74 [facility] Serum or plasma cholesterol in HDL measurement (mass/volume)Ordered By: Katherin Soriano on 05-01-2023 Cholesterol in HDL [Mass/Vol] 47 mg/dL >40 [facility] Comment on above: The drugs N-Acetylcy steine and Metamizole may falsely depress this assay. Reference Range HDL <40 mg/dL Low HDL Cholesterol HDL >or= 60 mg/dL High HDL Cholesterol Serum or plasma cholesterol in VLDL measurement (mass/volume)Ordered By: Katherin Soriano on 05-01-2023 Cholesterol in VLDL [Mass/Vol] 21 mg/dL 5-40 [facility] Serum or plasma low density lipoprotein (LDL) cholesterol measurement (mass/volume)Ordered By: Katherin Soriano on 05-01-2023 Cholesterol in LDL [Mass/Vol] 26 mg/dL 0-130 [facility] Whole blood hemoglobin A1c/t otal hemoglobin ratio (mass fraction)Ordered By: Katherin Soriano on 05-01-2023 HbA1c (Bld) [Mass fraction] 6.9 % 3.8-5.6 [facility] Comment on above: Normal < 5.7 % Predi abetic 5.7 - 6.4 % Diabetic >or= 6.5 % Please note range changes. Absolute lymphocyte countOrd ered By: Corin Hernandez on 04-23-2023 Lymphocytes Auto (Unsp spec) [#/Vol] 0.60 10*3/uL 0.83-4.51 [facility] Basophil percentageOrdered B y: Corin Hernandez on 04-23-2023 Basophils/100 WBC (Bld) 0.2 % 0-1 [facility] Eosinophils/100 WBC (Bld) 1.3 % 0-5 [facility] Neutrophils (Bld) [#/Vol] 7.6 10*3/uL 2.0-7.7 [facility] Neutrophils/100 WBC (Bld) 84.6 % 47-70 [facility] WBC (Bld) [#/Vol] 9.0 10*3/uL 4.4-11.0 [facility] Blood erythrocytes count (nu mber/volume)Ordered By: Corin Hernandez on 04-23-2023 RBC (Bld) [#/Vol] 4.70 10*6/uL 4.6-6.2 [facility] Blood hemoglobin measurement (mass/volume)Ordered By: Corin Hernandez on 04-23-2023 Hemoglobin (Bld) [Mass/Vol] 14.3 g/dL 13.0-16.5 [facility] Blood lymphocytes/100 leukoc ytesOrdered By: Corin Hernandez on 04-23-2023 Lymphocytes/100 WBC (Bld) 6.7 % 19-41 [facility] Blood manual differential co mment interpretation (narrative result)Ordered By: Corin Hernandez on 04-23-2023 Manual differential comment Reese (Bld) [Interp] SCANNED [facility] Comment on above: LYMPHOPENIA NOTED Blood monocytes/100 leukocyt esOrdered By: Corin Hernandez on 04-23-2023 Monocytes/100 WBC (Bld) 6.9 % 0-10 [facility] Blood platelet mean volumeOr dered By: Corin Hernandez on 04-23-2023 Platelet mean volume (Bld) [Entitic vol] 10.6 fL 6.2-12.0 [facility] Determination of erythrocyte mean corpuscular volume (MCV)Ordered By: Corin Hernandez on 04-23-2023 MCV (RBC) [Entitic vol] 96.6 fL 80-94 [facility] Hematocrit Auto (Bld) [Volum e fraction]Ordered By: Corin Hernandez on 04-23-2023 Hematocrit (Bld) [Volume fraction] 45.4 % 40-54 [facility] Laboratory - Hematology and Cell countsOrdered By: Corin Hernandez on 04-23-2023 Erythrocyte distribution width (RBC) [Entitic vol] 49.9 fL 35.1-43.9 [facility] Erythrocyte distribution width (RBC) [Ratio] 14.1 % 11.6-14.6 [facility] Immature granulocytes/100 WBC (Bld) 0.300 % 0.0-0.9 [facility] Comment on above: IG% - Immature Granu locytes (promyelocytes, myelocytes and metamyelocytes) > 1% indicates that a LEFT SHIFT is Present. MCH (RBC) [Entitic mass] 30.4 pg 27.0-32.0 [facility] Nucleated RBC/100 WBC (Bld) [Ratio] 0 % 0-5 [facility] MCHC Auto (RBC) [Mass/Vol]Or dered By: Corin Hernandez on 04-23-2023 MCHC (RBC) [Mass/Vol] 31.5 g/dL 32-36 [facility] Platelets bldOrdered By: Corin Hernandez on 04-23-2023 Platelets (Bld) [#/Vol] 164 10*3/uL 150-450 [facility] Basophil percentageOrdered B y: Edward Rosado on 03-27-2023 Chloride [Moles/Vol] 112 mmol/L 98-107 [facility] Glucose [Mass/Vol] 163 mg/dL 74-106 [facility] Comment on above: Fasting Glucose resu lt greater than or equal to 126 mg/dL suggests DIABETES MELLITUS per A.D.A. criteria. Potassium [Moles/Vol] 3.8 mmol/L 3.5-5.1 [facility] Sodium [Moles/Vol] 142 mmol/L 136-145 [facility] Laboratory - Chemistry and C hemistry - challengeOrdered By: Edward Rosado on 03-27-2023 CO2 [Moles/Vol] 26.0 mmol/L 21.0-32.0 [facility] Urea nitrogen/Creatinine [Mass ratio] 15.2 mg/mg 10-20 [facility] No Panel InformationOrdered By: Edward Rosado on 03-27-2023 Estimated GFR (MDRD) Amer 42 mL/min >60 [facility] Comment on above: GFR Calc Estimated GFR (MDRD) Non-Af Amer 34 mL/min >60 [facility] Comment on above: Non- GFR Calc Serum or plasma calcium baljeet urement (mass/volume)Ordered By: Edward Rosado on 03-27-2023 Calcium [Mass/Vol] 8.6 mg/dL 8.5-10.1 [facility] Serum or plasma creatinine m easurement (mass/volume)Ordered By: Edward Rosado on 03-27-2023 Creatinine [Mass/Vol] 1.98 mg/dL 0.70-1.30 [facility] Comment on above: The validity of the calculated GFR & GFRAA in patients over 70 years has not been determined. Clinical correlation is essential. Serum or plasma urea nitroge n measurement (mass/volume)Ordered By: Edward Rosado on 03-27-2023 Urea nitrogen [Mass/Vol] 30 mg/dL 7-18 [facility] Thin prep Papanicolaou smear with manual screeningOrdered By: Edward Rosado on 03-27-2023 Thin prep Papanicolaou smear with manual screening 4 5-15 [facility] Urine creatinine measurement (mass/volume)Ordered By: Edward Rosado on 03-27-2023 Creatinine (U) [Mass/Vol] 55.10 mg/dL NO RANGE EST. [facility] Urine protein measurement (m ass/volume)Ordered By: Edward Rosado on 03-27-2023 Protein (U) [Mass/Vol] 57.3 mg/dL 0.0-11.8 [facility] Urine protein/creatinine mas s ratioOrdered By: Edward Rosado on 03-27-2023 Protein/Creatinine (U) [Mass ratio] 1040 mg/g CRE 0-200 [facility] Absolute lymphocyte countOrd ered By: Vineet Wright on 03-08-2023 Lymphocytes Auto (Unsp spec) [#/Vol] 1.23 10*3/uL 0.83-4.51 [facility] Basophil percentageOrdered B y: Vineet Wright on 03-08-2023 Basophils/100 WBC (Bld) 0.5 % 0-1 [facility] Chloride [Moles/Vol] 112 mmol/L 98-107 [facility] Eosinophils/100 WBC (Bld) 1.7 % 0-5 [facility] Glucose [Mass/Vol] 179 mg/dL 74-106 [facility] Comment on above: Fasting Glucose resu lt greater than or equal to 126 mg/dL suggests DIABETES MELLITUS per A.D.A. criteria. Neutrophils (Bld) [#/Vol] 6.2 10*3/uL 2.0-7.7 [facility] Neutrophils/100 WBC (Bld) 73.9 % 47-70 [facility] Potassium [Moles/Vol] 4.2 mmol/L 3.5-5.1 [facility] Sodium [Moles/Vol] 141 mmol/L 136-145 [facility] WBC (Bld) [#/Vol] 8.4 10*3/uL 4.4-11.0 [facility] Blood erythrocytes count (nu mber/volume)Ordered By: Vineet Wright on 03-08-2023 RBC (Bld) [#/Vol] 3.72 10*6/uL 4.6-6.2 [facility] Blood hemoglobin measurement (mass/volume)Ordered By: Vineet Wright on 03-08-2023 Hemoglobin (Bld) [Mass/Vol] 11.5 g/dL 13.0-16.5 [facility] Blood lymphocytes/100 leukoc ytesOrdered By: Vineet Wright on 03-08-2023 Lymphocytes/100 WBC (Bld) 14.6 % 19-41 [facility] Blood monocytes/100 leukocyt esOrdered By: Vineet Wright on 03-08-2023 Monocytes/100 WBC (Bld) 8.6 % 0-10 [facility] Blood platelet mean volumeOr dered By: Vineet Wright on 03-08-2023 Platelet mean volume (Bld) [Entitic vol] 10.0 fL 6.2-12.0 [facility] Determination of erythrocyte mean corpuscular volume (MCV)Ordered By: Vineet Wright on 03-08-2023 MCV (RBC) [Entitic vol] 98.4 fL 80-94 [facility] Hematocrit Auto (Bld) [Volum e fraction]Ordered By: Vineet Wright on 03-08-2023 Hematocrit (Bld) [Volume fraction] 36.6 % 40-54 [facility] Laboratory - Chemistry and C hemistry - challengeOrdered By: Vineet Wright on 03-08-2023 CO2 [Moles/Vol] 20.0 mmol/L 21.0-32.0 [facility] Urea nitrogen/Creatinine [Mass ratio] 17.0 mg/mg 10-20 [facility] Laboratory - Hematology and Cell countsOrdered By: Vineet Wright on 03-08-2023 Erythrocyte distribution width (RBC) [Entitic vol] 52.7 fL 35.1-43.9 [facility] Erythrocyte distribution width (RBC) [Ratio] 14.7 % 11.6-14.6 [facility] Immature granulocytes/100 WBC (Bld) 0.700 % 0.0-0.9 [facility] Comment on above: IG% - Immature Granu locytes (promyelocytes, myelocytes and metamyelocytes) > 1% indicates that a LEFT SHIFT is Present. MCH (RBC) [Entitic mass] 30.9 pg 27.0-32.0 [facility] Nucleated RBC/100 WBC (Bld) [Ratio] 0 % 0-5 [facility] MCHC Auto (RBC) [Mass/Vol]Or dered By: Vineet Wright on 03-08-2023 MCHC (RBC) [Mass/Vol] 31.4 g/dL 32-36 [facility] No Panel InformationOrdered By: Vineet Wright on 03-08-2023 Estimated Creatinine Clearance Calc 27.92 ml/min [facility] Estimated GFR (MDRD) Amer 35 mL/min >60 [facility] Comment on above: GFR Calc Estimated GFR (MDRD) Non-Af Amer 29 mL/min >60 [facility] Comment on above: Non- GFR Calc Platelets bldOrdered By: Livan Wright on 03-08-2023 Platelets (Bld) [#/Vol] 178 10*3/uL 150-450 [facility] Serum or plasma calcium baljeet urement (mass/volume)Ordered By: Vineet Wright on 03-08-2023 Calcium [Mass/Vol] 8.5 mg/dL 8.5-10.1 [facility] Serum or plasma creatinine m easurement (mass/volume)Ordered By: Vineet Wright on 03-08-2023 Creatinine [Mass/Vol] 2.29 mg/dL 0.70-1.30 [facility] Comment on above: The validity of the calculated GFR & GFRAA in patients over 70 years has not been determined. Clinical correlation is essential. Serum or plasma urea nitroge n measurement (mass/volume)Ordered By: Vineet Wright on 03-08-2023 Urea nitrogen [Mass/Vol] 39 mg/dL 7-18 [facility] Thin prep Papanicolaou smear with manual screeningOrdered By: Vineet Wright on 03-08-2023 Thin prep Papanicolaou smear with manual screening 9 5-15 [facility] Basophil percentageOrdered B y: Dr. Soriano on 02-07-2023 Bilirubin [Mass/Vol] 0.30 mg/dL 0.20-1.00 [facility] Comment on above: For patients on eltr ombopag therapy, use of Dimension Lequire TBIL is not recommended. Chloride [Moles/Vol] 115 mmol/L 98-107 [facility] Glucose [Mass/Vol] 131 mg/dL 74-106 [facility] Comment on above: Fasting Glucose resu lt greater than or equal to 126 mg/dL suggests DIABETES MELLITUS per A.D.A. criteria. Potassium [Moles/Vol] 4.2 mmol/L 3.5-5.1 [facility] Protein [Mass/Vol] 6.7 g/dL 6.4-8.2 [facility] Sodium [Moles/Vol] 144 mmol/L 136-145 [facility] Laboratory - Chemistry and C hemistry - challengeOrdered By: Dr. Soriano on 02-07-2023 ALP [Catalytic activity/Vol] 103 U/L 45-117 [facility] ALT [Catalytic activity/Vol] 24 U/L 16-61 [facility] CO2 [Moles/Vol] 25.0 mmol/L 21.0-32.0 [facility] Globulin (S) [Mass/Vol] 3.4 g/dL 2.2-4.2 [facility] Urea nitrogen/Creatinine [Mass ratio] 19.8 mg/mg 10-20 [facility] No Panel InformationOrdered By: Dr. Soriano on 02-07-2023 Estimated GFR (MDRD) Amer 49 mL/min >60 [facility] Comment on above: GFR Calc Estimated GFR (MDRD) Non-Af Amer 40 mL/min >60 [facility] Comment on above: Non- GFR Calc Serum or plasma albumin baljeet urement (mass/volume)Ordered By: Dr. Soriano on 02-07-2023 Albumin [Mass/Vol] 3.3 g/dL 3.2-5.0 [facility] Serum or plasma albumin/glob ulin mass ratioOrdered By: Dr. Soriano on 02-07-2023 Albumin/Globulin [Mass ratio] 1.0 {ratio} 0.9-2.4 [facility] Serum or plasma calcium baljeet urement (mass/volume)Ordered By: Dr. Soriano on 02-07-2023 Calcium [Mass/Vol] 9.3 mg/dL 8.5-10.1 [facility] Serum or plasma creatinine m easurement (mass/volume)Ordered By: Dr. Soriano on 02-07-2023 Creatinine [Mass/Vol] 1.72 mg/dL 0.70-1.30 [facility] Comment on above: The validity of the calculated GFR & GFRAA in patients over 70 years has not been determined. Clinical correlation is essential. Serum or plasma urea nitroge n measurement (mass/volume)Ordered By: Dr. Soriano on 02-07-2023 Urea nitrogen [Mass/Vol] 34 mg/dL 7-18 [facility] Thin prep Papanicolaou smear with manual screeningOrdered By: Dr. Soriano on 02-07-2023 Thin prep Papanicolaou smear with manual screening 16 U/L 15-37 [facility] Thin prep Papanicolaou smear with manual screening 4 5-15 [facility] Basophil percentageOrdered B y: Dr. Gotti on 01-08-2023 Bilirubin [Mass/Vol] 0.40 mg/dL 0.20-1.00 [facility] Comment on above: For patients on eltr ombopag therapy, use of Dimension Lequire TBIL is not recommended. Chloride [Moles/Vol] 111 mmol/L 98-107 [facility] Glucose [Mass/Vol] 151 mg/dL 74-106 [facility] Comment on above: Fasting Glucose resu lt greater than or equal to 126 mg/dL suggests DIABETES MELLITUS per A.D.A. criteria. Potassium [Moles/Vol] 4.0 mmol/L 3.5-5.1 [facility] Protein [Mass/Vol] 7.1 g/dL 6.4-8.2 [facility] Sodium [Moles/Vol] 142 mmol/L 136-145 [facility] Laboratory - Chemistry and C hemistry - challengeOrdered By: Dr. Gotti on 01-08-2023 ALP [Catalytic activity/Vol] 109 U/L 45-117 [facility] ALT [Catalytic activity/Vol] 27 U/L 16-61 [facility] CO2 [Moles/Vol] 25.0 mmol/L 21.0-32.0 [facility] Free T4 [Mass/Vol] 1.01 ng/dL 0.76-1.46 [facility] Globulin (S) [Mass/Vol] 3.6 g/dL 2.2-4.2 [facility] Urea nitrogen/Creatinine [Mass ratio] 18.8 mg/mg 10-20 [facility] No Panel InformationOrdered By: Dr. Gotti on 01-08-2023 Estimated GFR (MDRD) Amer 46 mL/min >60 [facility] Comment on above: GFR Calc Estimated GFR (MDRD) Non-Af Amer 38 mL/min >60 [facility] Comment on above: Non- GFR Calc Thyroid Stimulating Hormone (TSH) 2.79 uIU/mL 0.358-3.74 [facility] Vitamin D 25-Hydroxy 64.7 ng/mL [facility] Comment on above: Vitamin D 25(OH) Sta tus Range Deficiency <20 ng/mL (50nmol/L) Insufficiency 20 - 30 ng/mL (50 - 75 nmol/L) Sufficiency 30 - 100 ng/mL (75 - 250 nmol/L) Toxicity >100 ng/mL (>250 nmol/L) Serum or plasma albumin baljeet urement (mass/volume)Ordered By: Dr. Gotti on 01-08-2023 Albumin [Mass/Vol] 3.5 g/dL 3.2-5.0 [facility] Serum or plasma albumin/glob ulin mass ratioOrdered By: Dr. Gotti on 01-08-2023 Albumin/Globulin [Mass ratio] 1.0 {ratio} 0.9-2.4 [facility] Serum or plasma calcium baljeet urement (mass/volume)Ordered By: Dr. Gotti on 01-08-2023 Calcium [Mass/Vol] 9.1 mg/dL 8.5-10.1 [facility] Serum or plasma creatinine m easurement (mass/volume)Ordered By: Dr. Gotti on 01-08-2023 Creatinine [Mass/Vol] 1.81 mg/dL 0.70-1.30 [facility] Comment on above: The validity of the calculated GFR & GFRAA in patients over 70 years has not been determined. Clinical correlation is essential. Serum or plasma urea nitroge n measurement (mass/volume)Ordered By: Dr. Gotti on 01-08-2023 Urea nitrogen [Mass/Vol] 34 mg/dL 7-18 [facility] Thin prep Papanicolaou smear with manual screeningOrdered By: Dr. Gotti on 01-08-2023 Thin prep Papanicolaou smear with manual screening 18 U/L 1537 [facility] Thin prep Papanicolaou smear with manual screening 6 -15 [facility] Whole blood hemoglobin A1c/t otal hemoglobin ratio (mass fraction)Ordered By: Dr. Gotti on 01-08-2023 HbA1c (Bld) [Mass fraction] 7.1 % 3.8-5.6 [facility] Comment on above: Normal < 5.7 % Predi abetic 5.7 - 6.4 % Diabetic >or= 6.5 % Please note range changes. Basophil percentageOrdered B y: Dr. Gotti on 09-09-2022 Bilirubin [Mass/Vol] 0.60 mg/dL 0.20-1.00 [facility] Comment on above: For patients on eltr ombopag therapy, use of Dimension Lequire TBIL is not recommended. Chloride [Moles/Vol] 111 mmol/L 98-107 [facility] Cholesterol [Mass/Vol] 126 mg/dL <200 [facility] Comment on above: <200 mg/dL Desirable 200-240 mg/dL Borderline >240 mg/dL High Risk Glucose [Mass/Vol] 151 mg/dL 74-106 [facility] Comment on above: Fasting Glucose resu lt greater than or equal to 126 mg/dL suggests DIABETES MELLITUS per A.D.A. criteria. Potassium [Moles/Vol] 4.2 mmol/L 3.5-5.1 [facility] Comment on above: Slight Hemolysis, Re sult may be falsely increased. Protein [Mass/Vol] 6.9 g/dL 6.4-8.2 [facility] Sodium [Moles/Vol] 142 mmol/L 136-145 [facility] Triglyceride [Mass/Vol] 91 mg/dL <199 [facility] Comment on above: The drugs N-Acetylcy steine and Metamizole may falsely depress this assay.Serum Triglycerides Reference Interval Normal <150 mg/dL Borderline high 150 - 199 mg/dL High 200 - 499 mg/dL Very High > or = 500 mg/dL Laboratory - Chemistry and C hemistry - challengeOrdered By: Dr. Gotti on 09-09-2022 ALP [Catalytic activity/Vol] 83 U/L 45-117 [facility] ALT [Catalytic activity/Vol] 25 U/L 16-61 [facility] CO2 [Moles/Vol] 25.0 mmol/L 21.0-32.0 [facility] Free T4 [Mass/Vol] 1.27 ng/dL 0.76-1.46 [facility] Globulin (S) [Mass/Vol] 3.4 g/dL 2.2-4.2 [facility] Urea nitrogen/Creatinine [Mass ratio] 15.5 mg/mg 10-20 [facility] No Panel InformationOrdered By: Dr. Gotti on 09-09-2022 Estimated GFR (MDRD) Amer 43 mL/min >60 [facility] Comment on above: GFR Calc Estimated GFR (MDRD) Non-Af Amer 35 mL/min >60 [facility] Comment on above: Non- GFR Calc Thyroid Stimulating Hormone (TSH) 2.65 uIU/mL 0.358-3.74 [facility] Serum or plasma albumin baljeet urement (mass/volume)Ordered By: Dr. Gotti on 09-09-2022 Albumin [Mass/Vol] 3.5 g/dL 3.2-5.0 [facility] Serum or plasma albumin/glob ulin mass ratioOrdered By: Dr. Gotti on 09-09-2022 Albumin/Globulin [Mass ratio] 1.0 {ratio} 0.9-2.4 [facility] Serum or plasma calcium baljeet urement (mass/volume)Ordered By: Dr. Gotti on 09-09-2022 Calcium [Mass/Vol] 9.0 mg/dL 8.5-10.1 [facility] Serum or plasma cholesterol in HDL measurement (mass/volume)Ordered By: Dr. Gotti on 09-09-2022 Cholesterol in HDL [Mass/Vol] 63 mg/dL >40 [facility] Comment on above: The drugs N-Acetylcy steine and Metamizole may falsely depress this assay. Reference Range HDL <40 mg/dL Low HDL Cholesterol HDL >or= 60 mg/dL High HDL Cholesterol Serum or plasma cholesterol in VLDL measurement (mass/volume)Ordered By: Dr. Gotti on 09-09-2022 Cholesterol in VLDL [Mass/Vol] 18 mg/dL 5-40 [facility] Serum or plasma creatinine m easurement (mass/volume)Ordered By: Dr. Gotti on 09-09-2022 Creatinine [Mass/Vol] 1.93 mg/dL 0.70-1.30 [facility] Comment on above: The validity of the calculated GFR & GFRAA in patients over 70 years has not been determined. Clinical correlation is essential. Serum or plasma low density lipoprotein (LDL) cholesterol measurement (mass/volume)Ordered By: Dr. Gotti on 09-09-2022 Cholesterol in LDL [Mass/Vol] 45 mg/dL 0-130 [facility] Serum or plasma urea nitroge n measurement (mass/volume)Ordered By: Dr. Gotti on 09-09-2022 Urea nitrogen [Mass/Vol] 30 mg/dL 7-18 [facility] Thin prep Papanicolaou smear with manual screeningOrdered By: Dr. Gotti on 09-09-2022 Thin prep Papanicolaou smear with manual screening 22 U/L 15-37 [facility] Comment on above: Slight Hemolysis, Re sult may be falsely increased. Thin prep Papanicolaou smear with manual screening 6 5-15 [facility] Whole blood hemoglobin A1c/t otal hemoglobin ratio (mass fraction)Ordered By: Dr. Gotti on 09-09-2022 HbA1c (Bld) [Mass fraction] 7.0 % 3.8-5.6 [facility] Comment on above: Normal < 5.7 % Predi abetic 5.7 - 6.4 % Diabetic >or= 6.5 % Please note range changes. Basophil percentageOrdered B y: Dr. Gotti on 06-05-2022 Bilirubin [Mass/Vol] 0.40 mg/dL 0.20-1.00 [facility] Comment on above: For patients on eltr ombopag therapy, use of Dimension Lequire TBIL is not recommended. Chloride [Moles/Vol] 108 mmol/L 98-107 [facility] Cholesterol [Mass/Vol] 168 mg/dL <200 [facility] Comment on above: <200 mg/dL Desirable 200-240 mg/dL Borderline >240 mg/dL High Risk Glucose [Mass/Vol] 158 mg/dL 74-106 [facility] Comment on above: Fasting Glucose resu lt greater than or equal to 126 mg/dL suggests DIABETES MELLITUS per A.D.A. criteria. Potassium [Moles/Vol] 3.9 mmol/L 3.5-5.1 [facility] Protein [Mass/Vol] 7.1 g/dL 6.4-8.2 [facility] Sodium [Moles/Vol] 143 mmol/L 136-145 [facility] Triglyceride [Mass/Vol] 181 mg/dL <199 [facility] Comment on above: The drugs N-Acetylcy steine and Metamizole may falsely depress this assay.Serum Triglycerides Reference Interval Normal <150 mg/dL Borderline high 150 - 199 mg/dL High 200 - 499 mg/dL Very High > or = 500 mg/dL Laboratory - Chemistry and C hemistry - challengeOrdered By: Dr. Gotti on 06-05-2022 ALP [Catalytic activity/Vol] 75 U/L 45-117 [facility] ALT [Catalytic activity/Vol] 30 U/L 16-61 [facility] CO2 [Moles/Vol] 25.0 mmol/L 21.0-32.0 [facility] Free T4 [Mass/Vol] 1.02 ng/dL 0.76-1.46 [facility] Globulin (S) [Mass/Vol] 3.7 g/dL 2.2-4.2 [facility] Urea nitrogen/Creatinine [Mass ratio] 15.3 mg/mg 10- [facility] No Panel InformationOrdered By: Dr. Gotti on 06-05-2022 Estimated GFR (MDRD) Amer 42 mL/min >60 [facility] Comment on above: GFR Calc Estimated GFR (MDRD) Non-Af Amer 35 mL/min >60 [facility] Comment on above: Non- GFR Calc Free Triiodothyronine (T3) pg/dL 1.8 pg/mL 2.18-3.98 [facility] Thyroid Stimulating Hormone (TSH) 2.04 uIU/mL 0.358-3.74 [facility] Vitamin D 25-Hydroxy 52.6 ng/mL [facility] Comment on above: Vitamin D 25(OH) Sta tus Range Deficiency <20 ng/mL (50nmol/L) Insufficiency 20 - 30 ng/mL (50 - 75 nmol/L) Sufficiency 30 - 100 ng/mL (75 - 250 nmol/L) Toxicity >100 ng/mL (>250 nmol/L) Serum or plasma albumin baljeet urement (mass/volume)Ordered By: Dr. Gotti on 06-05-2022 Albumin [Mass/Vol] 3.4 g/dL 3.2-5.0 [facility] Serum or plasma albumin/glob ulin mass ratioOrdered By: Dr. Gotti on 06-05-2022 Albumin/Globulin [Mass ratio] 0.9 {ratio} 0.9-2.4 [facility] Serum or plasma calcium baljeet urement (mass/volume)Ordered By: Dr. Gotti on 06-05-2022 Calcium [Mass/Vol] 9.1 mg/dL 8.5-10.1 [facility] Serum or plasma cholesterol in HDL measurement (mass/volume)Ordered By: Dr. Gotti on 06-05-2022 Cholesterol in HDL [Mass/Vol] 46 mg/dL >40 [facility] Comment on above: The drugs N-Acetylcy steine and Metamizole may falsely depress this assay. Reference Range HDL <40 mg/dL Low HDL Cholesterol HDL >or= 60 mg/dL High HDL Cholesterol Serum or plasma cholesterol in VLDL measurement (mass/volume)Ordered By: Dr. Gotti on 06-05-2022 Cholesterol in VLDL [Mass/Vol] 36 mg/dL 5-40 [facility] Serum or plasma creatinine m easurement (mass/volume)Ordered By: Dr. Gotti on 06-05-2022 Creatinine [Mass/Vol] 1.96 mg/dL 0.70-1.30 [facility] Comment on above: The validity of the calculated GFR & GFRAA in patients over 70 years has not been determined. Clinical correlation is essential. Serum or plasma low density lipoprotein (LDL) cholesterol measurement (mass/volume)Ordered By: Dr. Gotti on 06-05-2022 Cholesterol in LDL [Mass/Vol] 86 mg/dL 0-130 [facility] Serum or plasma urea nitroge n measurement (mass/volume)Ordered By: Dr. Gotti on 06-05-2022 Urea nitrogen [Mass/Vol] 30 mg/dL 7-18 [facility] Thin prep Papanicolaou smear with manual screeningOrdered By: Dr. Gotti on 06-05-2022 Thin prep Papanicolaou smear with manual screening 17 U/L 15-37 [facility] Thin prep Papanicolaou smear with manual screening 10 5-15 [facility] Whole blood hemoglobin A1c/t otal hemoglobin ratio (mass fraction)Ordered By: Dr. Gotti on 06-05-2022 HbA1c (Bld) [Mass fraction] 7.0 % 3.8-5.6 [facility] Comment on above: Normal < 5.7 % Predi abetic 5.7 - 6.4 % Diabetic >or= 6.5 % Please note range changes. Glucose Glucometer (BldC) [M ass/Vol]on 04-05-2022 Glucose [Mass/Vol] 158 mg/dL 74-106 [facility] Work Phone: Comment on above: MANAGEMENT OF PATIEN T CARE PER NURSING PROTOCOL Basophil percentageon 2021 Chloride [Moles/Vol] 109 mmol/L 98-107 [facility] Work Phone: Glucose [Mass/Vol] 237 mg/dL 74-106 [facility] Work Phone: Comment on above: Glucose result great er than or equal to 200 mg/dLsuggests DIABETES MELLITUS per A.D.A. criteria. Potassium [Moles/Vol] 4.3 mmol/L 3.5-5.1 [facility] Work Phone: Comment on above: Slight Hemolysis, Re sult may be falsely increased. Sodium [Moles/Vol] 139 mmol/L 136-145 [facility] Work Phone: Laboratory - Chemistry and C hemistry - challengeon 04-04-2022 CO2 [Moles/Vol] 24.0 mmol/L 21.0-32.0 [facility] Work Phone: Urea nitrogen/Creatinine [Mass ratio] 17.8 mg/mg 10-20 [facility] Work Phone: No Panel Informationon 04-04 Estimated Creatinine Clearance Calc 37.40 ml/min [facility] Work Phone: Estimated GFR (MDRD) Amer 48 mL/min >60 [facility] Work Phone: Comment on above: GFR Calc Estimated GFR (MDRD) Non-Af Amer 40 mL/min >60 [facility] Work Phone: Comment on above: Non- GFR Calc Serum or plasma calcium baljeet urement (mass/volume)on 04-04-2022 Calcium [Mass/Vol] 9.2 mg/dL 8.5-10.1 [facility] Work Phone: Serum or plasma creatinine m easurement (mass/volume)on 04-04-2022 Creatinine [Mass/Vol] 1.74 mg/dL 0.70-1.30 [facility] Work Phone: Comment on above: The validity of the calculated GFR & GFRAA in patients over 70 years has not been determined. Clinical correlation is essential. Serum or plasma urea nitroge n measurement (mass/volume)on 04-04-2022 Urea nitrogen [Mass/Vol] 31 mg/dL 7-18 [facility] Work Phone: Thin prep Papanicolaou smear with manual screeningon 04-04-2022 Thin prep Papanicolaou smear with manual screening 6 5-15 [facility] Work Phone: Absolute lymphocyte counton 04-03-2022 Lymphocytes Auto (Unsp spec) [#/Vol] 0.83 10*3/uL 0.83-4.51 [facility] Work Phone: Basophil percentageon 2021 Basophils/100 WBC (Bld) 0.6 % 0-1 [facility] Work Phone: [phone] Cholesterol [Mass/Vol] 114 mg/dL <200 [facility] Work Phone: Comment on above: <200 mg/dL Desirable 200-240 mg/dL Borderline >240 mg/dL High Risk Eosinophils/100 WBC (Bld) 2.2 % 0-5 [facility] Work Phone: Neutrophils (Bld) [#/Vol] 5.6 10*3/uL 2.0-7.7 [facility] Work Phone: Neutrophils/100 WBC (Bld) 77.1 % 47-70 [facility] Work Phone: [phone] Triglyceride [Mass/Vol] 93 mg/dL <199 [facility] Work Phone: [phone] Comment on above: The drugs N-Acetylcy steine and Metamizole may falsely depress this assay.Serum Triglycerides Reference Interval Normal <150 mg/dL Borderline high 150 - 199 mg/dL High 200 - 499 mg/dL Very High > or = 500 mg/dL WBC (Bld) [#/Vol] 7.2 10*3/uL 4.4-11.0 [facility] Work Phone: Blood erythrocytes count (nu mber/volume)on 04-03-2022 RBC (Bld) [#/Vol] 3.94 10*6/uL 4.6-6.2 [facility] Work Phone: Blood hemoglobin measurement (mass/volume)on 04-03-2022 Hemoglobin (Bld) [Mass/Vol] 11.7 g/dL 13.0-16.5 [facility] Work Phone: [phone] Blood lymphocytes/100 leukoc yteson 04-03-2022 Lymphocytes/100 WBC (Bld) 11.5 % 19-41 [facility] Work Phone: [phone] Blood monocytes/100 leukocyt eson 04-03-2022 Monocytes/100 WBC (Bld) 8.0 % 0-10 [facility] Work Phone: Blood platelet mean volumeon 04-03-2022 Platelet mean volume (Bld) [Entitic vol] 9.6 fL 6.2-12.0 [facility] Work Phone: Determination of erythrocyte mean corpuscular volume (MCV)on 04-03-2022 MCV (RBC) [Entitic vol] 92.1 fL 80-94 [facility] Work Phone: Hematocrit Auto (Bld) [Volum e fraction]on 04-03-2022 Hematocrit (Bld) [Volume fraction] 36.3 % 40-54 [facility] Work Phone: Laboratory - Chemistry and C hemistry - challengeon 04-03-2022 Magnesium [Mass/Vol] 1.8 mg/dL 1.6-2.6 [facility] Work Phone: Laboratory - Hematology and Cell countson 04-03-2022 Erythrocyte distribution width (RBC) [Entitic vol] 49.6 fL 35.1-43.9 [facility] Work Phone: Erythrocyte distribution width (RBC) [Ratio] 14.8 % 11.6-14.6 [facility] Work Phone: [phone] Immature granulocytes/100 WBC (Bld) 0.600 % 0.0-0.9 [facility] Work Phone: Comment on above: IG% - Immature Granu locytes (promyelocytes, myelocytes and metamyelocytes) > 1% indicates that a LEFT SHIFT is Present. MCH (RBC) [Entitic mass] 29.7 pg 27.0-32.0 [facility] Work Phone: Nucleated RBC/100 WBC (Bld) [Ratio] 0 % 0-5 [facility] Work Phone: [phone] MCHC Auto (RBC) [Mass/Vol]on 04-03-2022 MCHC (RBC) [Mass/Vol] 32.2 g/dL 32-36 [facility] Work Phone: Platelets bldon 04-03-2022 Platelets (Bld) [#/Vol] 186 10*3/uL 150-450 [facility] Work Phone: Serum or plasma cholesterol in HDL measurement (mass/volume)on 04-03-2022 Cholesterol in HDL [Mass/Vol] 53 mg/dL >40 [facility] Work Phone: Comment on above: The drugs N-Acetylcy steine and Metamizole may falsely depress this assay. Reference Range HDL <40 mg/dL Low HDL Cholesterol HDL >or= 60 mg/dL High HDL Cholesterol Serum or plasma cholesterol in VLDL measurement (mass/volume)on 04-03-2022 Cholesterol in VLDL [Mass/Vol] 19 mg/dL 5-40 [facility] Work Phone: [phone] Serum or plasma low density lipoprotein (LDL) cholesterol measurement (mass/volume)on 04-03-2022 Cholesterol in LDL [Mass/Vol] 42 mg/dL 0-130 [facility] Work Phone: Absolute lymphocyte counton 04-02-2022 Lymphocytes Auto (Unsp spec) [#/Vol] 0.94 10*3/uL 0.83-4.51 [facility] Work Phone: Basophil percentageon 2021 Basophils/100 WBC (Bld) 0.4 % 0-1 [facility] Work Phone: Bilirubin [Mass/Vol] 0.30 mg/dL 0.20-1.00 [facility] Work Phone: [phone] Comment on above: For patients on eltr ombopag therapy, use of Dimension Lequire TBIL is not recommended. Chloride [Moles/Vol] 111 mmol/L 98-107 [facility] Work Phone: [phone] Eosinophils/100 WBC (Bld) 1.7 % 0-5 [facility] Work Phone: [phone] Glucose [Mass/Vol] 155 mg/dL 74-106 [facility] Work Phone: [phone] Comment on above: Fasting Glucose resu lt greater than or equal to 126 mg/dL suggests DIABETES MELLITUS per A.D.A. criteria. Neutrophils (Bld) [#/Vol] 5.8 10*3/uL 2.0-7.7 [facility] Work Phone: [phone] Neutrophils/100 WBC (Bld) 77.0 % 47-70 [facility] Work Phone: [phone] Potassium [Moles/Vol] 3.9 mmol/L 3.5-5.1 [facility] Work Phone: [phone] Comment on above: Moderate Hemolysis, Result may be falsely increased. Protein [Mass/Vol] 6.9 g/dL 6.4-8.2 [facility] Work Phone: [phone] Sodium [Moles/Vol] 140 mmol/L 136-145 [facility] Work Phone: [phone] WBC (Bld) [#/Vol] 7.5 10*3/uL 4.4-11.0 [facility] Work Phone: [phone] Blood erythrocytes count (nu mber/volume)on 04-02-2022 RBC (Bld) [#/Vol] 4.01 10*6/uL 4.6-6.2 [facility] Work Phone: [phone] Blood hemoglobin measurement (mass/volume)on 04-02-2022 Hemoglobin (Bld) [Mass/Vol] 11.8 g/dL 13.0-16.5 [facility] Work Phone: Blood lymphocytes/100 leukoc yteson 04-02-2022 Lymphocytes/100 WBC (Bld) 12.5 % 19-41 [facility] Work Phone: Blood monocytes/100 leukocyt eson 04-02-2022 Monocytes/100 WBC (Bld) 7.9 % 0-10 [facility] Work Phone: Blood platelet mean volumeon 04-02-2022 Platelet mean volume (Bld) [Entitic vol] 10.5 fL 6.2-12.0 [facility] Work Phone: Determination of erythrocyte mean corpuscular volume (MCV)on 04-02-2022 MCV (RBC) [Entitic vol] 94.0 fL 80-94 [facility] Work Phone: Hematocrit Auto (Bld) [Volum e fraction]on 04-02-2022 Hematocrit (Bld) [Volume fraction] 37.7 % 40-54 [facility] Work Phone: Laboratory - Chemistry and C hemistry - challengeon 04-02-2022 ALP [Catalytic activity/Vol] 83 U/L 45-117 [facility] Work Phone: ALT [Catalytic activity/Vol] 22 U/L 16-61 [facility] Work Phone: CO2 [Moles/Vol] 23.0 mmol/L 21.0-32.0 [facility] Work Phone: Globulin (S) [Mass/Vol] 3.6 g/dL 2.2-4.2 [facility] Work Phone: Urea nitrogen/Creatinine [Mass ratio] 16.8 mg/mg 10-20 [facility] Work Phone: Laboratory - Hematology and Cell countson 04-02-2022 Erythrocyte distribution width (RBC) [Entitic vol] 49.9 fL 35.1-43.9 [facility] Work Phone: Erythrocyte distribution width (RBC) [Ratio] 14.8 % 11.6-14.6 [facility] Work Phone: [phone] Immature granulocytes/100 WBC (Bld) 0.500 % 0.0-0.9 [facility] Work Phone: [phone] Comment on above: IG% - Immature Granu locytes (promyelocytes, myelocytes and metamyelocytes) > 1% indicates that a LEFT SHIFT is Present. MCH (RBC) [Entitic mass] 29.4 pg 27.0-32.0 [facility] Work Phone: [phone] Nucleated RBC/100 WBC (Bld) [Ratio] 0 % 0-5 [facility] Work Phone: [phone] MCHC Auto (RBC) [Mass/Vol]on 04-02-2022 MCHC (RBC) [Mass/Vol] 31.3 g/dL 32-36 [facility] Work Phone: No Panel Informationon 04-02 Estimated Creatinine Clearance Calc 32.22 ml/min [facility] Work Phone: [phone] Estimated GFR (MDRD) Amer 41 mL/min >60 [facility] Work Phone: [phone] Comment on above: GFR Calc Estimated GFR (MDRD) Non-Af Amer 34 mL/min >60 [facility] Work Phone: Comment on above: Non- GFR Calc Troponin I High Sensitivity 16 pg/mL 3.0-78.0 [facility] Work Phone: [phone] Comment on above: Please Note: New Mariajose t Units and Gender Specific Reference Ranges. For more information see Policy Stat Procedure Lequire High Sensitivity Troponin (TNIH) and attachments. Platelets bldon 04-02-2022 Platelets (Bld) [#/Vol] 201 10*3/uL 150-450 [facility] Work Phone: [phone] Serum or plasma albumin baljeet urement (mass/volume)on 04-02-2022 Albumin [Mass/Vol] 3.3 g/dL 3.2-5.0 [facility] Work Phone: [phone] Serum or plasma albumin/glob ulin mass ratioon 04-02-2022 Albumin/Globulin [Mass ratio] 0.9 {ratio} 0.9-2.4 [facility] Work Phone: Serum or plasma calcium baljeet urement (mass/volume)on 04-02-2022 Calcium [Mass/Vol] 8.8 mg/dL 8.5-10.1 [facility] Work Phone: Serum or plasma creatinine m easurement (mass/volume)on 04-02-2022 Creatinine [Mass/Vol] 2.02 mg/dL 0.70-1.30 [facility] Work Phone: Comment on above: The validity of the calculated GFR & GFRAA in patients over 70 years has not been determined. Clinical correlation is essential. Serum or plasma urea nitroge n measurement (mass/volume)on 04-02-2022 Urea nitrogen [Mass/Vol] 34 mg/dL 7-18 [facility] Work Phone: Thin prep Papanicolaou smear with manual screeningon 04-02-2022 Thin prep Papanicolaou smear with manual screening 24 U/L 15-37 [facility] Work Phone: Comment on above: Moderate Hemolysis, Result may be falsely increased. Thin prep Papanicolaou smear with manual screening 6 5-15 [facility] Work Phone: Basophil percentageon 2021 Bilirubin [Mass/Vol] 0.40 mg/dL 0.20-1.00 [facility] Work Phone: Comment on above: For patients on eltr ombopag therapy, use of Dimension Lequire TBIL is not recommended. Chloride [Moles/Vol] 111 mmol/L 98-107 [facility] Work Phone: [phone] Glucose [Mass/Vol] 116 mg/dL 74-106 [facility] Work Phone: Comment on above: Fasting Glucose resu lt from 100 to 125 mg/dL suggests IMPAIRED HOMEOSTASIS per A.D.A. criteria. Potassium [Moles/Vol] 3.8 mmol/L 3.5-5.1 [facility] Work Phone: Protein [Mass/Vol] 6.8 g/dL 6.4-8.2 [facility] Work Phone: [phone] Sodium [Moles/Vol] 142 mmol/L 136-145 [facility] Work Phone: Laboratory - Chemistry and C hemistry - challengeon 03-09-2022 ALP [Catalytic activity/Vol] 88 U/L 45-117 [facility] Work Phone: [phone] ALT [Catalytic activity/Vol] 20 U/L 16-61 [facility] Work Phone: [phone] CO2 [Moles/Vol] 26.0 mmol/L 21.0-32.0 [facility] Work Phone: [phone] Globulin (S) [Mass/Vol] 3.4 g/dL 2.2-4.2 [facility] Work Phone: Urea nitrogen/Creatinine [Mass ratio] 18.1 mg/mg 10-20 [facility] Work Phone: No Panel Informationon 03-09 Estimated GFR (MDRD) Amer 46 mL/min >60 [facility] Work Phone: Comment on above: GFR Calc Estimated GFR (MDRD) Non-Af Amer 38 mL/min >60 [facility] Work Phone: Comment on above: Non- GFR Calc Thyroid Stimulating Hormone (TSH) 1.75 uIU/mL 0.358-3.74 [facility] Work Phone: Vitamin D 25-Hydroxy 52.2 ng/mL [facility] Work Phone: [phone] Comment on above: Vitamin D 25(OH) Sta tus Range Deficiency <20 ng/mL (50nmol/L) Insufficiency 20 - 30 ng/mL (50 - 75 nmol/L) Sufficiency 30 - 100 ng/mL (75 - 250 nmol/L) Toxicity >100 ng/mL (>250 nmol/L) Serum or plasma albumin baljeet urement (mass/volume)on 03-09-2022 Albumin [Mass/Vol] 3.4 g/dL 3.2-5.0 [facility] Work Phone: Serum or plasma albumin/glob ulin mass ratioon 03-09-2022 Albumin/Globulin [Mass ratio] 1.0 {ratio} 0.9-2.4 [facility] Work Phone: Serum or plasma calcium baljeet urement (mass/volume)on 03-09-2022 Calcium [Mass/Vol] 9.3 mg/dL 8.5-10.1 [facility] Work Phone: Serum or plasma creatinine m easurement (mass/volume)on 03-09-2022 Creatinine [Mass/Vol] 1.82 mg/dL 0.70-1.30 [facility] Work Phone: Comment on above: The validity of the calculated GFR & GFRAA in patients over 70 years has not been determined. Clinical correlation is essential. Serum or plasma urea nitroge n measurement (mass/volume)on 03-09-2022 Urea nitrogen [Mass/Vol] 33 mg/dL 7-18 [facility] Work Phone: Thin prep Papanicolaou smear with manual screeningon 03-09-2022 Thin prep Papanicolaou smear with manual screening 15 U/L 15-37 [facility] Work Phone: Thin prep Papanicolaou smear with manual screening 5 5-15 [facility] Work Phone: Thin prep Papanicolaou smear with manual screening 289.0 mg/L NO RANGE EST. [facility] Work Phone: Whole blood hemoglobin A1c/t otal hemoglobin ratio (mass fraction)on 03-09-2022 HbA1c (Bld) [Mass fraction] 6.7 % 3.8-5.6 [facility] Work Phone: Comment on above: Normal < 5.7 % Predi abetic 5.7 - 6.4 % Diabetic >or= 6.5 % Please note range changes. Basophil percentageon 2021 Chloride [Moles/Vol] 108 mmol/L 98-107 [facility] Work Phone: Glucose [Mass/Vol] 103 mg/dL 74-106 [facility] Work Phone: Comment on above: Fasting Glucose resu lt from 100 to 125 mg/dL suggests IMPAIRED HOMEOSTASIS per A.D.A. criteria. Potassium [Moles/Vol] 3.6 mmol/L 3.5-5.1 [facility] Work Phone: Sodium [Moles/Vol] 142 mmol/L 136-145 [facility] Work Phone: Laboratory - Chemistry and C hemistry - challengeon 02-13-2022 CO2 [Moles/Vol] 30.0 mmol/L 21.0-32.0 [facility] Work Phone: Urea nitrogen/Creatinine [Mass ratio] 14.7 mg/mg 10- [facility] Work Phone: No Panel Informationon 02-13 Estimated GFR (MDRD) Amer 52 mL/min >60 [facility] Work Phone: Comment on above: GFR Calc Estimated GFR (MDRD) Non-Af Amer 43 mL/min >60 [facility] Work Phone: Comment on above: Non- GFR Calc Serum or plasma calcium baljeet urement (mass/volume)on 02-13-2022 Calcium [Mass/Vol] 8.7 mg/dL 8.5-10.1 [facility] Work Phone: Serum or plasma creatinine m easurement (mass/volume)on 02-13-2022 Creatinine [Mass/Vol] 1.63 mg/dL 0.70-1.30 [facility] Work Phone: Comment on above: The validity of the calculated GFR & GFRAA in patients over 70 years has not been determined. Clinical correlation is essential. Serum or plasma urea nitroge n measurement (mass/volume)on 02-13-2022 Urea nitrogen [Mass/Vol] 24 mg/dL 7-18 [facility] Work Phone: Thin prep Papanicolaou smear with manual screeningon 02-13-2022 Thin prep Papanicolaou smear with manual screening 4 5-15 [facility] Work Phone: Basophil percentageon 2021 Chloride [Moles/Vol] 106 mmol/L 98-107 [facility] Work Phone: Glucose [Mass/Vol] 152 mg/dL 74-106 [facility] Work Phone: Comment on above: Fasting Glucose resu lt greater than or equal to 126 mg/dL suggests DIABETES MELLITUS per A.D.A. criteria. Potassium [Moles/Vol] 3.2 mmol/L 3.5-5.1 [facility] Work Phone: Sodium [Moles/Vol] 141 mmol/L 136-145 [facility] Work Phone: Laboratory - Chemistry and C hemistry - challengeon 02-01-2022 CO2 [Moles/Vol] 28.0 mmol/L 21.0-32.0 [facility] Work Phone: Urea nitrogen/Creatinine [Mass ratio] 17.1 mg/mg 10-20 [facility] Work Phone: No Panel Informationon 02-01 Estimated GFR (MDRD) Amer 50 mL/min >60 [facility] Work Phone: Comment on above: GFR Calc Estimated GFR (MDRD) Non-Af Amer 41 mL/min >60 [facility] Work Phone: Comment on above: Non- GFR Calc Serum or plasma calcium baljeet urement (mass/volume)on 02-01-2022 Calcium [Mass/Vol] 8.9 mg/dL 8.5-10.1 [facility] Work Phone: Serum or plasma creatinine m easurement (mass/volume)on 02-01-2022 Creatinine [Mass/Vol] 1.70 mg/dL 0.70-1.30 [facility] Work Phone: Comment on above: The validity of the calculated GFR & GFRAA in patients over 70 years has not been determined. Clinical correlation is essential. Serum or plasma urea nitroge n measurement (mass/volume)on 02-01-2022 Urea nitrogen [Mass/Vol] 29 mg/dL 7-18 [facility] Work Phone: Thin prep Papanicolaou smear with manual screeningon 02-01-2022 Thin prep Papanicolaou smear with manual screening 7 5-15 [facility] Work Phone: Absolute lymphocyte counton 01-24-2022 Lymphocytes Auto (Unsp spec) [#/Vol] 0.84 10*3/uL 0.83-4.51 [facility] Work Phone: Basophil percentageon 2021 Basophils/100 WBC (Bld) 0.4 % 0-1 [facility] Work Phone: Chloride [Moles/Vol] 110 mmol/L 98-107 [facility] Work Phone: Eosinophils/100 WBC (Bld) 1.4 % 0-5 [facility] Work Phone: Glucose [Mass/Vol] 108 mg/dL 74-106 [facility] Work Phone: Comment on above: Fasting Glucose resu lt from 100 to 125 mg/dL suggests IMPAIRED HOMEOSTASIS per A.D.A. criteria. Neutrophils (Bld) [#/Vol] 8.7 10*3/uL 2.0-7.7 [facility] Work Phone: Neutrophils/100 WBC (Bld) 81.9 % 47-70 [facility] Work Phone: Potassium [Moles/Vol] 3.6 mmol/L 3.5-5.1 [facility] Work Phone: Sodium [Moles/Vol] 141 mmol/L 136-145 [facility] Work Phone: WBC (Bld) [#/Vol] 10.6 10*3/uL 4.4-11.0 [facility] Work Phone: [phone] Blood erythrocytes count (nu mber/volume)on 01-24-2022 RBC (Bld) [#/Vol] 3.65 10*6/uL 4.6-6.2 [facility] Work Phone: [phone] Blood hemoglobin measurement (mass/volume)on 01-24-2022 Hemoglobin (Bld) [Mass/Vol] 10.8 g/dL 13.0-16.5 [facility] Work Phone: [phone] Blood lymphocytes/100 leukoc yteson 01-24-2022 Lymphocytes/100 WBC (Bld) 7.9 % 19-41 [facility] Work Phone: [phone] Blood monocytes/100 leukocyt eson 01-24-2022 Monocytes/100 WBC (Bld) 8.0 % 0-10 [facility] Work Phone: [phone] Blood platelet mean volumeon 01-24-2022 Platelet mean volume (Bld) [Entitic vol] 10.5 fL 6.2-12.0 [facility] Work Phone: [phone] Determination of erythrocyte mean corpuscular volume (MCV)on 01-24-2022 MCV (RBC) [Entitic vol] 94.2 fL 80-94 [facility] Work Phone: [phone] Glucose Glucometer (BldC) [M ass/Vol]on 01-24-2022 Glucose [Mass/Vol] 99 mg/dL 74-106 [facility] Work Phone: [phone] Comment on above: MANAGEMENT OF PATIEN T CARE PER NURSING PROTOCOL Hematocrit Auto (Bld) [Volum e fraction]on 01-24-2022 Hematocrit (Bld) [Volume fraction] 34.4 % 40-54 [facility] Work Phone: Laboratory - Chemistry and C hemistry - challengeon 01-24-2022 CO2 [Moles/Vol] 24.0 mmol/L 21.0-32.0 [facility] Work Phone: [phone] Natriuretic peptide B (Bld) [Mass/Vol] 896.8 pg/mL 0-100 [facility] Work Phone: Urea nitrogen/Creatinine [Mass ratio] 18.8 mg/mg 10-20 [facility] Work Phone: [phone] Laboratory - Hematology and Cell countson 01-24-2022 Erythrocyte distribution width (RBC) [Entitic vol] 49.9 fL 35.1-43.9 [facility] Work Phone: [phone] Erythrocyte distribution width (RBC) [Ratio] 14.6 % 11.6-14.6 [facility] Work Phone: [phone] Immature granulocytes/100 WBC (Bld) 0.400 % 0.0-0.9 [facility] Work Phone: [phone] Comment on above: IG% - Immature Granu locytes (promyelocytes, myelocytes and metamyelocytes) > 1% indicates that a LEFT SHIFT is Present. MCH (RBC) [Entitic mass] 29.6 pg 27.0-32.0 [facility] Work Phone: [phone] Nucleated RBC/100 WBC (Bld) [Ratio] 0 % 0-5 [facility] Work Phone: [phone] MCHC Auto (RBC) [Mass/Vol]on 01-24-2022 MCHC (RBC) [Mass/Vol] 31.4 g/dL 32-36 [facility] Work Phone: [phone] No Panel Informationon 01-24 Estimated Creatinine Clearance Calc 35.95 ml/min [facility] Work Phone: [phone] Estimated GFR (MDRD) Amer 46 mL/min >60 [facility] Work Phone: [phone] Comment on above: GFR Calc Estimated GFR (MDRD) Non-Af Amer 38 mL/min >60 [facility] Work Phone: [phone] Comment on above: Non- GFR Calc Troponin I High Sensitivity 14 pg/mL 3.0-78.0 [facility] Work Phone: [phone] Comment on above: Please Note: New Mariajose t Units and Gender Specific Reference Ranges. For more information see Policy Stat Procedure [place] High Sensitivity Troponin (TNIH) and attachments. Platelets bldon 01-24-2022 Platelets (Bld) [#/Vol] 176 10*3/uL 150-450 [facility] Work Phone: Serum or plasma calcium baljeet urement (mass/volume)on 01-24-2022 Calcium [Mass/Vol] 9.1 mg/dL 8.5-10.1 [facility] Work Phone: Serum or plasma creatinine m easurement (mass/volume)on 01-24-2022 Creatinine [Mass/Vol] 1.81 mg/dL 0.70-1.30 [facility] Work Phone: Comment on above: The validity of the calculated GFR & GFRAA in patients over 70 years has not been determined. Clinical correlation is essential. Serum or plasma urea nitroge n measurement (mass/volume)on 01-24-2022 Urea nitrogen [Mass/Vol] 34 mg/dL 7-18 [facility] Work Phone: Thin prep Papanicolaou smear with manual screeningon 01-24-2022 Thin prep Papanicolaou smear with manual screening 7 5-15 [facility] Work Phone: Basophil percentageon 2021 Chloride [Moles/Vol] 106 mmol/L 98-107 [facility] Work Phone: Glucose [Mass/Vol] 187 mg/dL 74-106 [facility] Work Phone: Comment on above: Fasting Glucose resu lt greater than or equal to 126 mg/dL suggests DIABETES MELLITUS per A.D.A. criteria. Potassium [Moles/Vol] 4.1 mmol/L 3.5-5.1 [facility] Work Phone: Sodium [Moles/Vol] 142 mmol/L 136-145 [facility] Work Phone: Laboratory - Chemistry and C hemistry - challengeon 01-09-2022 CO2 [Moles/Vol] 30.0 mmol/L 21.0-32.0 [facility] Work Phone: Urea nitrogen/Creatinine [Mass ratio] 17.9 mg/mg 10-20 [facility] Work Phone: No Panel Informationon 01-09 Estimated GFR (MDRD) Amer 49 mL/min >60 [facility] Work Phone: Comment on above: GFR Calc Estimated GFR (MDRD) Non-Af Amer 40 mL/min >60 [facility] Work Phone: Comment on above: Non- GFR Calc Serum or plasma calcium baljeet urement (mass/volume)on 01-09-2022 Calcium [Mass/Vol] 9.4 mg/dL 8.5-10.1 [facility] Work Phone: Serum or plasma creatinine m easurement (mass/volume)on 01-09-2022 Creatinine [Mass/Vol] 1.73 mg/dL 0.70-1.30 [facility] Work Phone: Comment on above: The validity of the calculated GFR & GFRAA in patients over 70 years has not been determined. Clinical correlation is essential. Serum or plasma urea nitroge n measurement (mass/volume)on 01-09-2022 Urea nitrogen [Mass/Vol] 31 mg/dL 7-18 [facility] Work Phone: Thin prep Papanicolaou smear with manual screeningon 01-09-2022 Thin prep Papanicolaou smear with manual screening 6 5-15 [facility] Work Phone: Whole blood hemoglobin A1c/t otal hemoglobin ratio (mass fraction)on 01-09-2022 HbA1c (Bld) [Mass fraction] 6.9 % 3.8-5.6 [facility] Work Phone: Comment on above: Normal < 5.7 % Predi abetic 5.7 - 6.4 % Diabetic >or= 6.5 % Please note range changes. Absolute lymphocyte counton 01-04-2022 Lymphocytes Auto (Unsp spec) [#/Vol] 0.90 10*3/uL 0.83-4.51 [facility] Work Phone: Basophil percentageon 2021 Basophils/100 WBC (Bld) 0.4 % 0-1 [facility] Work Phone: Chloride [Moles/Vol] 106 mmol/L 98-107 [facility] Work Phone: Eosinophils/100 WBC (Bld) 3.3 % 0-5 [facility] Work Phone: Glucose [Mass/Vol] 155 mg/dL 74-106 [facility] Work Phone: Comment on above: Fasting Glucose resu lt greater than or equal to 126 mg/dL suggests DIABETES MELLITUS per A.D.A. criteria. Neutrophils (Bld) [#/Vol] 5.7 10*3/uL 2.0-7.7 [facility] Work Phone: Neutrophils/100 WBC (Bld) 74.8 % 47-70 [facility] Work Phone: Potassium [Moles/Vol] 3.6 mmol/L 3.5-5.[address] [facility] Work Phone: Sodium [Moles/Vol] 139 mmol/L 136-145 [facility] Work Phone: WBC (Bld) [#/Vol] 7.6 10*3/uL 4.4-11.0 [facility] Work Phone: Blood erythrocytes count (nu mber/volume)on 01-04-2022 RBC (Bld) [#/Vol] 3.54 10*6/uL 4.6-6.2 [facility] Work Phone: Blood hemoglobin measurement (mass/volume)on 01-04-2022 Hemoglobin (Bld) [Mass/Vol] 10.6 g/dL 13.0-16.5 [facility] Work Phone: Blood lymphocytes/100 leukoc yteson 01-04-2022 Lymphocytes/100 WBC (Bld) 11.9 % 19-41 [facility] Work Phone: Blood monocytes/100 leukocyt eson 01-04-2022 Monocytes/100 WBC (Bld) 9.5 % 0-10 [facility] Work Phone: [phone] Blood platelet mean volumeon 01-04-2022 Platelet mean volume (Bld) [Entitic vol] 9.7 fL 6.2-12.0 [facility] Work Phone: [phone] Determination of erythrocyte mean corpuscular volume (MCV)on 01-04-2022 MCV (RBC) [Entitic vol] 92.9 fL 80-94 [facility] Work Phone: [phone] Glucose Glucometer (BldC) [M ass/Vol]on 01-04-2022 Glucose [Mass/Vol] 212 mg/dL 74-106 [facility] Work Phone: [phone] Comment on above: MANAGEMENT OF PATIEN T CARE PER NURSING PROTOCOL Hematocrit Auto (Bld) [Volum e fraction]on 01-04-2022 Hematocrit (Bld) [Volume fraction] 32.9 % 40-54 [facility] Work Phone: Laboratory - Chemistry and C hemistry - challengeon 01-04-2022 CO2 [Moles/Vol] 27.0 mmol/L 21.0-32.0 [facility] Work Phone: [phone] Urea nitrogen/Creatinine [Mass ratio] 16.6 mg/mg 10-20 [facility] Work Phone: [phone] Laboratory - Hematology and Cell countson 01-04-2022 Erythrocyte distribution width (RBC) [Entitic vol] 48.8 fL 35.1-43.9 [facility] Work Phone: [phone] Erythrocyte distribution width (RBC) [Ratio] 14.3 % 11.6-14.6 [facility] Work Phone: [phone] Immature granulocytes/100 WBC (Bld) 0.100 % 0.0-0.9 [facility] Work Phone: [phone] Comment on above: IG% - Immature Granu locytes (promyelocytes, myelocytes and metamyelocytes) > 1% indicates that a LEFT SHIFT is Present. MCH (RBC) [Entitic mass] 29.9 pg 27.0-32.0 [facility] Work Phone: [phone] Nucleated RBC/100 WBC (Bld) [Ratio] 0 % 0-5 [facility] Work Phone: [phone] MCHC Auto (RBC) [Mass/Vol]on 01-04-2022 MCHC (RBC) [Mass/Vol] 32.2 g/dL 32-36 [facility] Work Phone: No Panel Informationon 01-04 Estimated Creatinine Clearance Calc 28.37 ml/min [facility] Work Phone: [phone] Estimated GFR (MDRD) Amer 36 mL/min >60 [facility] Work Phone: [phone] Comment on above: GFR Calc Estimated GFR (MDRD) Non-Af Amer 30 mL/min >60 [facility] Work Phone: [phone] Comment on above: Non- GFR Calc Platelets bldon 01-04-2022 Platelets (Bld) [#/Vol] 166 10*3/uL 150-450 [facility] Work Phone: [phone] Serum or plasma calcium baljeet urement (mass/volume)on 01-04-2022 Calcium [Mass/Vol] 8.5 mg/dL 8.5-10.1 [facility] Work Phone: [phone] Serum or plasma creatinine m easurement (mass/volume)on 01-04-2022 Creatinine [Mass/Vol] 2.23 mg/dL 0.70-1.30 [facility] Work Phone: Comment on above: The validity of the calculated GFR & GFRAA in patients over 70 years has not been determined. Clinical correlation is essential. Serum or plasma urea nitroge n measurement (mass/volume)on 01-04-2022 Urea nitrogen [Mass/Vol] 37 mg/dL 7-18 [facility] Work Phone: [phone] Thin prep Papanicolaou smear with manual screeningon 01-04-2022 Thin prep Papanicolaou smear with manual screening 6 5-15 [facility] Work Phone: [phone] Laboratory - Chemistry and C hemistry - challengeon 01-03-2022 Magnesium [Mass/Vol] 1.8 mg/dL 1.6-2.6 [facility] Work Phone: No Panel Informationon 01-03 Enteric Bacteriology [facility] Work Phone: Basophil percentageon 2021 Bilirubin [Mass/Vol] 0.60 mg/dL 0.20-1.00 [facility] Work Phone: [phone] Comment on above: For patients on eltr ombopag therapy, use of Dimension Lequire TBIL is not recommended. Cholesterol [Mass/Vol] 133 mg/dL <200 [facility] Work Phone: Comment on above: <200 mg/dL Desirable 200-240 mg/dL Borderline >240 mg/dL High Risk Protein [Mass/Vol] 6.7 g/dL 6.4-8.2 [facility] Work Phone: [phone] Triglyceride [Mass/Vol] 76 mg/dL <199 [facility] Work Phone: [phone] Comment on above: The drugs N-Acetylcy steine and Metamizole may falsely depress this assay.Serum Triglycerides Reference Interval Normal <150 mg/dL Borderline high 150 - 199 mg/dL High 200 - 499 mg/dL Very High > or = 500 mg/dL Blood manual differential co mment interpretation (narrative result)on 01-02-2022 Manual differential comment Reese (Bld) [Interp] SCANNED [facility] Work Phone: Laboratory - Chemistry and C hemistry - challengeon 01-02-2022 ALP [Catalytic activity/Vol] 88 U/L 45-117 [facility] Work Phone: [phone] ALT [Catalytic activity/Vol] 56 U/L 16-61 [facility] Work Phone: [phone] Free T4 [Mass/Vol] 1.19 ng/dL 0.76-1.46 [facility] Work Phone: [phone] Globulin (S) [Mass/Vol] 3.4 g/dL 2.2-4.2 [facility] Work Phone: [phone] No Panel Informationon 01-02 Thyroid Stimulating Hormone (TSH) 4.22 uIU/mL 0.358-3.74 [facility] Work Phone: Troponin I High Sensitivity 33 pg/mL 3.0-78.0 [facility] Work Phone: Comment on above: Please Note: New Mariajose t Units and Gender Specific Reference Ranges. For more information see Policy Stat Procedure Lequire High Sensitivity Troponin (TNIH) and attachments. Serum or plasma albumin baljeet urement (mass/volume)on 01-02-2022 Albumin [Mass/Vol] 3.3 g/dL 3.2-5.0 [facility] Work Phone: Serum or plasma albumin/glob ulin mass ratioon 01-02-2022 Albumin/Globulin [Mass ratio] 1.0 {ratio} 0.9-2.4 [facility] Work Phone: Serum or plasma cholesterol in HDL measurement (mass/volume)on 01-02-2022 Cholesterol in HDL [Mass/Vol] 76 mg/dL >40 [facility] Work Phone: Comment on above: The drugs N-Acetylcy steine and Metamizole may falsely depress this assay. Reference Range HDL <40 mg/dL Low HDL Cholesterol HDL >or= 60 mg/dL High HDL Cholesterol Serum or plasma cholesterol in VLDL measurement (mass/volume)on 01-02-2022 Cholesterol in VLDL [Mass/Vol] 15 mg/dL 5-40 [facility] Work Phone: Serum or plasma low density lipoprotein (LDL) cholesterol measurement (mass/volume)on 01-02-2022 Cholesterol in LDL [Mass/Vol] 42 mg/dL 0-130 [facility] Work Phone: Thin prep Papanicolaou smear with manual screeningon 01-02-2022 Thin prep Papanicolaou smear with manual screening 58 U/L 15-37 [facility] Work Phone: [phone] Absolute lymphocyte counton 01-01-2022 Lymphocytes Auto (Unsp spec) [#/Vol] 1.21 10*3/uL 0.83-4.51 [facility] Work Phone: Basophil percentageon 2021 Bilirubin [Mass/Vol] 0.40 mg/dL 0.20-1.00 [facility] Work Phone: Comment on above: For patients on eltr ombopag therapy, use of Dimension Lequire TBIL is not recommended. Chloride [Moles/Vol] 110 mmol/L 98-107 [facility] Work Phone: Glucose [Mass/Vol] 133 mg/dL 74-106 [facility] Work Phone: Comment on above: Fasting Glucose resu lt greater than or equal to 126 mg/dL suggests DIABETES MELLITUS per A.D.A. criteria. Potassium [Moles/Vol] 5.0 mmol/L 3.5-5.1 [facility] Work Phone: Comment on above: Moderate Hemolysis, Result may be falsely increased. Protein [Mass/Vol] 7.1 g/dL 6.4-8.2 [facility] Work Phone: Sodium [Moles/Vol] 142 mmol/L 136-145 [facility] Work Phone: Basophil percentage 0 SEEN /hpf 0-5 [facility] Work Phone: Basophils/100 WBC (Bld) 0.3 % 0-1 [facility] Work Phone: Eosinophils/100 WBC (Bld) 1.8 % 0-5 [facility] Work Phone: Neutrophils (Bld) [#/Vol] 8.7 10*3/uL 2.0-7.7 [facility] Work Phone: Neutrophils/100 WBC (Bld) 78.9 % 47-70 [facility] Work Phone: WBC (Bld) [#/Vol] 11.0 10*3/uL 4.4-11.0 [facility] Work Phone: Bilirubin Test strip Ql (U)o n 01-01-2022 Bilirubin Ql (U) Negative Negative [facility] Work Phone: Blood erythrocytes count (nu mber/volume)on 01-01-2022 RBC (Bld) [#/Vol] 3.98 10*6/uL 4.6-6.2 [facility] Work Phone: Blood hemoglobin measurement (mass/volume)on 01-01-2022 Hemoglobin (Bld) [Mass/Vol] 11.9 g/dL 13.0-16.5 [facility] Work Phone: Blood lymphocytes/100 leukoc yteson 01-01-2022 Lymphocytes/100 WBC (Bld) 11.0 % 19-41 [facility] Work Phone: Blood monocytes/100 leukocyt eson 01-01-2022 Monocytes/100 WBC (Bld) 7.6 % 0-10 [facility] Work Phone: Blood platelet mean volumeon 01-01-2022 Platelet mean volume (Bld) [Entitic vol] 10.2 fL 6.2-12.0 [facility] Work Phone: Determination of erythrocyte mean corpuscular volume (MCV)on 01-01-2022 MCV (RBC) [Entitic vol] 93.7 fL 80-94 [facility] Work Phone: Glucose Glucometer (BldC) [M ass/Vol]on 01-01-2022 Glucose [Mass/Vol] 143 mg/dL 74-106 [facility] Work Phone: Comment on above: MANAGEMENT OF PATIEN T CARE PER NURSING PROTOCOL Hematocrit Auto (Bld) [Volum e fraction]on 01-01-2022 Hematocrit (Bld) [Volume fraction] 37.3 % 40-54 [facility] Work Phone: Ketones Test strip Ql (U)on 01-01-2022 Ketones Ql (U) Negative Negative [facility] Work Phone: Laboratory - Chemistry and C hemistry - challengeon 01-01-2022 ALP [Catalytic activity/Vol] 83 U/L 45-117 [facility] Work Phone: ALT [Catalytic activity/Vol] 28 U/L 16-61 [facility] Work Phone: [phone] CO2 [Moles/Vol] 28.0 mmol/L 21.0-32.0 [facility] Work Phone: [phone] Globulin (S) [Mass/Vol] 3.6 g/dL 2.2-4.2 [facility] Work Phone: [phone] Magnesium [Mass/Vol] 1.7 mg/dL 1.6-2.6 [facility] Work Phone: [phone] Comment on above: Moderate Hemolysis, Result may be falsely increased. Urea nitrogen/Creatinine [Mass ratio] 17.9 mg/mg 10-20 [facility] Work Phone: [phone] Natriuretic peptide B (Bld) [Mass/Vol] 193.7 pg/mL 0-100 [facility] Work Phone: [phone] Laboratory - Hematology and Cell countson 01-01-2022 Erythrocyte distribution width (RBC) [Entitic vol] 49.3 fL 35.1-43.9 [facility] Work Phone: [phone] Erythrocyte distribution width (RBC) [Ratio] 14.6 % 11.6-14.6 [facility] Work Phone: [phone] Immature granulocytes/100 WBC (Bld) 0.400 % 0.0-0.9 [facility] Work Phone: [phone] Comment on above: IG% - Immature Granu locytes (promyelocytes, myelocytes and metamyelocytes) > 1% indicates that a LEFT SHIFT is Present. MCH (RBC) [Entitic mass] 29.9 pg 27.0-32.0 [facility] Work Phone: [phone] Nucleated RBC/100 WBC (Bld) [Ratio] 0 % 0-5 [facility] Work Phone: [phone] MCHC Auto (RBC) [Mass/Vol]on 01-01-2022 MCHC (RBC) [Mass/Vol] 31.9 g/dL 32-[address] [facility] Work Phone: [phone] Mucus LM Ql (Urine sed)on Mucus Ql (Urine sed) 0 SEEN /hpf [facility] Work Phone: [phone] Nitrite Test strip Ql (U)on 01-01-2022 Nitrite Ql (U) Negative Negative [facility] Work Phone: No Panel Informationon 01-01 Estimated Creatinine Clearance Calc 43.10 ml/min [facility] Work Phone: [phone] Estimated GFR (MDRD) Amer 57 mL/min >60 [facility] Work Phone: [phone] Comment on above: GFR Calc Estimated GFR (MDRD) Non-Af Amer 47 mL/min >60 [facility] Work Phone: Comment on above: Non- GFR Calc Troponin I High Sensitivity 16 pg/mL 3.0-78.0 [facility] Work Phone: Comment on above: Please Note: New Mariajose t Units and Gender Specific Reference Ranges. For more information see Policy Stat Procedure Lequire High Sensitivity Troponin (TNIH) and attachments. Platelets bldon 01-01-2022 Platelets (Bld) [#/Vol] 199 10*3/uL 150-450 [facility] Work Phone: [phone] Protein Test strip Ql (U)on 01-01-2022 Protein Ql (U) 100 mg/dl Negative [facility] Work Phone: [phone] Serum or plasma albumin baljeet urement (mass/volume)on 01-01-2022 Albumin [Mass/Vol] 3.5 g/dL 3.2-5.0 [facility] Work Phone: [phone] Serum or plasma albumin/glob ulin mass ratioon 01-01-2022 Albumin/Globulin [Mass ratio] 1.0 {ratio} 0.9-2.4 [facility] Work Phone: [phone] Serum or plasma calcium baljeet urement (mass/volume)on 01-01-2022 Calcium [Mass/Vol] 8.7 mg/dL 8.5-10.1 [facility] Work Phone: [phone] Serum or plasma creatinine m easurement (mass/volume)on 01-01-2022 Creatinine [Mass/Vol] 1.51 mg/dL 0.70-1.30 [facility] Work Phone: Comment on above: The validity of the calculated GFR & GFRAA in patients over 70 years has not been determined. Clinical correlation is essential. Serum or plasma urea nitroge n measurement (mass/volume)on 01-01-2022 Urea nitrogen [Mass/Vol] 27 mg/dL 7-18 [facility] Work Phone: Squamous epithelial cells de tection in urine sediment by light microscopyon 01-01-2022 Epithelial cells.squamous LM Ql (Urine sed) 0 SEEN /hpf 0-5 [facility] Work Phone: Thin prep Papanicolaou smear with manual screeningon 01-01-2022 Thin prep Papanicolaou smear with manual screening 36 U/L 15-37 [facility] Work Phone: Comment on above: Moderate Hemolysis, Result may be falsely increased. Thin prep Papanicolaou smear with manual screening 4 5-15 [facility] Work Phone: Urine blood detectionon RBC Ql (U) 25 /ul Negative [facility] Work Phone: RBC Ql (U) 0 SEEN /hpf 0-5 [facility] Work Phone: Urine clarityon 01-01-2022 Clarity (U) Clear Clear [facility] Work Phone: Urine color determinationon 01-01-2022 Color (U) Yellow Yellow [facility] Work Phone: Urine glucose detectionon Glucose Ql (U) Normal mg/dl Normal [facility] Work Phone: Urine leukocyte esterase det ection by dipstickon 01-01-2022 Leukocyte esterase Test strip Ql (U) Negative Negative [facility] Work Phone: Urine pHon 01-01-2022 pH (U) 6.0 [pH] 5.0 - 8.0 [facility] Work Phone: Urine sediment bacteria coun t by microscopy (number/high power field)on 01-01-2022 Bacteria LM.HPF (Urine sed) [#/Area] 0 /[HPF] None Seen [facility] Work Phone: Urine specific gravity measu rementon 01-01-2022 Specific gravity (U) [Rel density] 1.010 1.002-1.03 0 [facility] Work Phone: Urobilinogen Auto test strip Ql (U)on 01-01-2022 Urobilinogen Ql (U) Normal mg/dl Normal [facility] Work Phone: CNOVon 11-22-2021 CNOV Office Visit (UROLMN ) RACHNA RECINOS ([id number]) 1940 M NFR Date Time Provider Department 11/22/21 10:30 AM JAYY CANCINO During your visit today, we recorded the following information about you: Pulse Blood pressure Weight Height 65/minute 150/72 99.1 kg 1.88 m Jayy Cancino MD 11/22/2021 10:59 AM Signed STAFF UROLOGY NOTE: Patient with long-term nephrolithiasis. 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 - furosemide [...] Essential hypertension [I10] 08/09/2010 Hyperlipidemia [E78.5] 08/09/2010 Gastro-esoph (more content not included)... Normal [facility] URINALYSIS, REFLEX MICROSCOP ICon 11-22-2021 Bilirubin Ql (U) Negative Negative [facility] Clarity (Unsp spec) Clear Clear [facility] Color (U) Light Yellow Yellow [facility] Glucose Test strip (U) [Mass/Vol] Negative Negative [facility] Hemoglobin Ql (U) Negative Negative [facility] Ketones Ql (U) Negative Negative [facility] Leukocyte esterase Test strip Ql (U) Negative Negative [facility] Nitrite Ql (U) Negative Negative [facility] pH (U) 5.5 [pH] 5.0 - 8.0 [facility] Protein (U) [Mass/Vol] 1+ Abnormal Negative [facility] Specific gravity (U) [Rel density] 1.012 1.005 - 1.030 [facility] Urobilinogen Ql (U) Negative Negative [facility] Bilirubin Ql (U) Negative Normal Negative [facility] Comment on above: Order Comment: Speci men Type: URINE SPECIMEN Ordering Facility: [facility] Address: [address] [place] [address] Performed By: #### L [id number] #### [facility] CLIA [id number] [address] [place] [address] STATES OF [facility] Clarity (Unsp spec) Clear Normal Clear [facility] Comment on above: Order Comment: Speci men Type: URINE SPECIMEN Ordering Facility: [facility] Address: [address] [place] [address] Performed By: #### L [id number] #### [facility] CLIA [id number] [address] [place] [address] [place] OF [facility] Color (U) Light Yellow Normal Yellow [facility] Comment on above: Order Comment: Speci men Type: URINE SPECIMEN Ordering Facility: [facility] Address: [address] [place] [address] Performed By: #### L [id number] #### [facility] CLIA [id number] [address] [id number] [place] Glucose Test strip (U) [Mass/Vol] Negative Normal Negative [facility] Comment on above: Order Comment: Speci men Type: URINE SPECIMEN Ordering Facility: [facility] Address: [address] [place], [place] [id number] Performed By: #### L [id number] #### [facility] CLIA [id number] [address] [place] [address] [place] Hemoglobin Ql (U) Negative Normal Negative [facility] Comment on above: Order Comment: Speci men Type: URINE SPECIMEN Ordering Facility: [facility] Address: [address] [place] [address] Performed By: #### L [id number] #### [facility] CLIA [id number] [address] [place] [address] [place] Ketones Ql (U) Negative Normal Negative [facility] Comment on above: Order Comment: Speci men Type: URINE SPECIMEN Ordering Facility: [facility] Address: [address] [place] [address] Performed By: #### L [id number] #### [facility] CLIA [id number] [address] [place], [place] [id number] [place] Leukocyte esterase Test strip Ql (U) Negative Normal Negative [facility] Comment on above: Order Comment: Speci men Type: URINE SPECIMEN Ordering Facility: [facility] Address: [address] [place] [address] Performed By: #### L [id number] #### [facility] CLIA [id number] [address] [place] [address] [place] Nitrite Ql (U) Negative Normal Negative [facility] Comment on above: Order Comment: Speci men Type: URINE SPECIMEN Ordering Facility: [facility] Address: [address] [place] [address] Performed By: #### L [id number] #### [facility] CLIA [id number] [address] [place] [address] [place] pH (U) 5.5 [pH] Normal 5.0-8.0 [facility] Comment on above: Order Comment: Speci men Type: URINE SPECIMEN Ordering Facility: [facility] Address: [address] [place] [address] Performed By: #### L [id number] #### [facility] CLIA [id number] [address] [place] [address] [place] Protein (U) [Mass/Vol] 1+ Abnormal Negative [facility] Comment on above: Order Comment: Speci men Type: URINE SPECIMEN Ordering Facility: [facility] Address: [address] [place] [address] Performed By: #### L [id number] #### [facility] CLIA [id number] [address] [place] [address] [place] Specific gravity (U) [Rel density] 1.012 Normal 1.005-1.03 0 [facility] Comment on above: Order Comment: Speci men Type: URINE SPECIMEN Ordering Facility: [facility] Address: [address] [place] [address] Performed By: #### L [id number] #### [facility] CLIA [id number] [address] [place] [address] [place] Urobilinogen Ql (U) Negative Normal Negative [facility] Comment on above: Order Comment: Speci men Type: URINE SPECIMEN Ordering Facility: [facility] Address: [address] [place] [address] Performed By: #### L [id number] #### [facility] CLIA [id number] [address] [place] [address] [place] US KIDNEY/BLADDERon 11-19-19 US KIDNEY/BLADDER * * *Final Report* * * DATE OF EXAM: Nov 18 2021 10:58AM [facility]U 1055 - US KIDNEY/BLADDER / PROCEDURE REASON: multiple diagnoses * * * * Physician Interpretation * * * * EXAMINATION: RENAL ULTRASOUND CLINICAL HISTORY: 81 years old Male with Renal calculi. Renal cyst TECHNIQUE: Sonography of the kidneys and urinary bladder was performed. Images were obtained and stored in a permanent archive. MQ: [id number] COMPARISON: Ultrasound 12/10/2020, 03/24/2019, CT abdomen pelvis 08/01/2010 RESULT: Right Kidney: -Renal length: 16.5 cm, duplicated malrotated kidney with hilum directed medially as seen on prior CT. -Parenchyma: Normal parenchymal echogenicity. -Collecting system: No hydronephrosis. Duplicated collecting system. -Calculus: Echogenic shadowing calculus measuring approximately 2 cm in the lower pole hilum. -Lesion: Several benign cysts including 2.4 cm and 2.3 cm lower pole cyst. Left Kidney: -Renal length: 12.4 cm -Parenchyma: Normal parenchymal echogenicity. Normal parenchymal thickness. -Collecting system: No hydronephrosis. -Calculus: Echogenic shadowing calculus in the midpole measuring 4 mm and probable additional echogenic shadowing calculi correlating with concurrently performed radiographs and prior exams. -Lesion: Multiple benign cysts including a 4 cm lower pole and 3.3 cm interpolar cyst. Bladder: Normal sonographic appearance. Prevoid bladder volume of 178 mL and 0 post void residual IMPRESSION: No significant change in bilateral nephrolithiasis. Benign bilateral renal cysts. 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 Circular Distributor: [facility] Transcribe Date/Time: Nov 18 2021 4:46P Dictated by : SONU KINGSTON DO This examination was interpreted and the report reviewed and electronically signed by: SONU KINGSTON DO on Nov 18 2021 5:02PM EST [id number] Normal [facility] XR ABDOMEN 3V KUB W/OBLIQUES on 11-18-2021 XR ABDOMEN 3V KUB W/OBLIQUES * * *Final Report* * * DATE OF EXAM: Nov 18 2021 10:14AM [id number] - XR ABDOMEN 3V KUB W/OBLIQUES / PROCEDURE REASON: Renal calculi * * * * Physician Interpretation * * * * EXAMINATION: XR ABDOMEN 3V KUB W/OBLIQUES PATIENT/TECHNOLOGIST PROVIDED HISTORY: history of kidney stones CLINICAL INFORMATION: 81 years old Male with Renal calculi COMPARISON: KUB 12/10/2020, 11/04/2019, 03/24/2019, 03/07/2016, 02/07/2011 CT abdomen pelvis 08/01/2010 TECHNIQUE: AP and both oblique views of the abdomen. 6 image(s) RESULT: Multiple clustered calcifications overlying the LEFT renal shadow corresponding with renal calculi dating back to CT abdomen and pelvis 08/01/2010. 2 cm staghorn calcification to the RIGHT of the L4-L5 level is also unchanged from multiple priors and was within the RIGHT renal pelvis of a malrotated RIGHT kidney on CT abdomen pelvis dated 08/01/2010. Cholecystectomy clips. No dilated bowel. Partially visualized subcutaneous AICD and median sternotomy wires. Degenerative changes in the lumbar spine. IMPRESSION: No significant change in bilateral nephrolithiasis since multiple priors. Circular Distributor: [facility] Transcribe Date/Time: Nov 18 2021 4:34P Dictated by : SONU KINGSTON DO This examination was interpreted and the report reviewed and electronically signed by: SONU KINGSTON DO on Nov 18 2021 4:46PM EST [id number] Normal [facility] CNOVon 12-14-2020 CNOV Office Visit (UROLMN ) RACHNA RECINOS ([id number]) 1940 M NFR Date Time Provider Department 12/14/20 10:30 AM JAYY CANCINO During your visit today, we recorded the following information about you: Pulse Blood pressure Weight Height 53/minute 168/67 96.3 kg 1.88 m Jayy Cancino MD 12/14/2020 10:39 AM Signed .Followed for nephrolithiasis. No symptoms whatsoever. Voids [...] 1 yr with KUB/sono at f/u Jayy Cancino MD, FACS Director, Surgical Stone Disease, [facility] inspection and testing supervisor, [facility] Medicine Pager [phone] 12/14/2020 Referring Provider: SELF [[id number]] Allergies As of Date: 12/14/2020 Noted Allergy [...] Date Reviewed: 12/14/2020 Reviewed by: Mariama Padgett ([facility]) KELSEA Sloan - Fully Assessed Primary Visit Diagnosis:Renal calculi [N20.0] Other Visit Diagnoses:Controlled type 2 diabetes mellitus with diabetic nephropathy, with long-term current use of insulin (HCC) [E11.21, Z79.4] Renal cyst [N28.1] Malignant neoplasm of prostate (HCC) [C61] Order(s):US KIDNEY/BLADDER [[id number]] Order #: [id number] FUTURE XR ABDOMEN 3V KUB W/OBLIQUES [[id number]] Order #: [id number] FUTURE Prescriptions as of 12/14/2020 Sig: ZENPEP 10,000 [...] Take 50 mg by mouth twice tri* FUROSEMIDE 40 MG TABLET Take 40 mg [...] BROMIDE 18 MCG CAP* inhale once daily FLUTICASONE PROPIONATE 50 MCG* Use 1 Boyd in each nostril o* Problem List As Of Date 12/14/2020 Noted [...] (HCC) [I42.9] Chronic combined systolic and diastolic h (more content not included)... Normal [facility] Urinalysison 12-14-2020 Bilirubin, Urine Negative Normal Negative [facility] Comment on above: Performed By: #### U A #### [place] [phone] Clarity (U) Clear Normal Clear [facility] Comment on above: Performed By: #### U A #### [place] [phone] Color (U) Yellow Normal Yellow [facility] Comment on above: Performed By: #### U A #### [place] [phone] Comments SEE COMMENT Normal [facility] Comment on above: Result Comment: Micr oscopic not warranted Performed By: #### U A #### [place] [id number] [place] [address] Glucose Ql (U) Negative Normal Negative [facility] Comment on above: Performed By: #### U A #### [place] [id number] [place] [address] Hemoglobin/Blood,Ur Negative Normal Negative [facility] Comment on above: Performed By: #### U A #### [facility] [address] [place], [place] [address] Ketones Ql (U) Negative Normal Negative [facility] Comment on above: Performed By: #### U A #### [place] [id number] [place], [place] [address] Leukest Negative Normal Negative [facility] Comment on above: Performed By: #### U A #### [place] [address] Nitrite Ql (U) Negative Normal Negative [facility] Comment on above: Performed By: #### U A #### [place] [address] pH (U) 5.5 [pH] Normal 5.0-8.0 [facility] Comment on above: Performed By: #### U A #### [place] [address] Protein, Urine 1+ Critically abnormal Negative [facility] Comment on above: Performed By: #### U A #### [address] [address] Specific [place], Ur 1.021 Normal 1.005-1 .03 0 [facility] Comment on above: Performed By: #### U A #### [address] [address] Urine [place] Comment SEE COMMENT Normal [facility] Comment on above: Result Comment: N/A Performed By: #### U A #### [address] [address] Urobilinogen (U) [Mass/Vol] Negative Normal Negative [facility] Comment on above: Performed By: #### U A #### [address] [address] US KIDNEY/BLADDERon 12-11-19 21 US KIDNEY/BLADDER * * *Final Report* * * DATE OF EXAM: Dec 10 2020 11:23AM WRU [id number] - US KIDNEY/BLADDER / PROCEDURE REASON: multiple diagnoses * * * * Physician Interpretation * * * * EXAMINATION: RENAL ULTRASOUND HISTORY: Clinical information: Renal calculi Renal cyst TECHNIQUE: Sonography of the kidneys and urinary bladder was performed. Images were obtained and stored in a permanent archive. MQ: UR_1 COMPARISON: Ultrasound 11/04/[address] 08/01/2010 RESULT: Right Kidney: Malrotated kidney with a duplicated collecting system. -Renal length: 17.6 cm -Parenchyma: Normal parenchymal echogenicity. Normal parenchymal thickness. -Collecting system: No hydronephrosis. -Calculus: No echogenic, shadowing calculus. -Lesion: There were cysts seen in the lower pole the largest 2.3 cm. Left Kidney: -Renal length: 13.0 cm -Parenchyma: Normal parenchymal echogenicity. Normal parenchymal thickness. -Collecting system: No hydronephrosis. -Calculus: No echogenic, shadowing calculus. -Lesion: 2 cysts in the LEFT kidney 3.5 cm simple cyst upper pole and 3.9 cm simple cyst lower pole Bladder: Normal sonographic appearance. IMPRESSION: 1. Enlarged RIGHT kidney with a duplicated collecting system 2. Simple cysts in each kidney Circular Distributor: [facility] Transcribe Date/Time: Dec 10 2020 3:58P Dictated by : ROMERO NORTH DO This examination was interpreted and the report reviewed and electronically signed by: ROMERO NORTH DO on Dec 10 2020 4:03PM EST [id number] Normal [facility] XR ABDOMEN 3V KUB W/OBLIQUES on 12-10-2020 XR ABDOMEN 3V KUB W/OBLIQUES * * *Final Report* * * DATE OF EXAM: Dec 10 2020 10:36AM WRX [id number] - XR ABDOMEN 3V KUB W/OBLIQUES / PROCEDURE REASON: Renal calculi * * * * Physician Interpretation * * * * Indication: History of renal calculi Comparison: X-ray abdomen 03/24/2019 and 11/04/2019 KUB and oblique x-rays of the abdomen are obtained. There is a non-obstructed bowel gas pattern. There is no hepatomegaly or splenomegaly. Stable appearance of a cluster of calcifications overlying the upper to mid left kidney. Stable appearance of a calcification overlying the right iliac bone. Surgical clips in the right upper quadrant. IMPRESSION: Stable appearance of a cluster of calcifications overlying the upper to mid left kidney Circular Distributor: [facility] Transcribe Date/Time: Dec 10 2020 3:42P Dictated by : GUMARO RENO MD This examination was interpreted and the report reviewed and electronically signed by: GUMARO RENO MD on Dec 10 2020 3:48PM EST [id number] Normal [facility] Clinical Summary: HMSPatient IDon [address] [facility] Work Phone: Clinical Summary: Scanned RO S Summaryon 2018 endocrine ROS Complains [facility] Work Phone: endocrine system, review of, comments Diabetes [facility] Work Phone: Gastrointestional review of systems, comment Hemorrhoids [facility] Work Phone: genitourinary review of systems, E&M Complains [facility] Work Phone: genitourinary system review of systems, comments Kidney Stones [facility] Work Phone: Lymphocytes #/vol (Bld) Denies [facility] Work Phone: ROS cardiovascular E&M Denies [facility] Work Phone: ROS ENT comment Impaired Hearing,Dentures [facility] Work Phone: ROS ENT E&M Complains [facility] Work Phone: ROS gastrointestinal E&M Complains [facility] Work Phone: ROS general E&M Denies [facility] Work Phone: ROS musculoskeletal E&M Denies [facility] Work Phone: ROS neurological E&M Denies [facility] Work Phone: ROS psychiatric E&M Denies [facility] Work Phone: ROS Pulmonary comment Sleep Apnea [facility] Work Phone: ROS pulmonary E&M Complains [facility] Work Phone: ROS skin E&M Denies [facility] Work Phone: Office Visit: Follow-up by jose reaves, Rm: 7on 2018 NEGATED: Highlighted rowProtein mass conc Done [facility] Work Phone: Clinical Lists Update: Prelo ad Extendedon 10-01-2018 Tobacco smoking status NHIS Tobacco smoking status NHIS [facility] Work Phone: Clinical Summary: Scanned Hi story Summaryon 09-30-2018 Cholesterol mass conc A-FibAnemiaCHFCOPD Defibrill atorDiabetes - insulin dependentHeart diseaseHigh blood pressureHigh cholesterolHypertensionHype rthyroidismKidney diseaseMelanomaSleep apnea [facility] Work Phone: comments about allergies Enalapril, Levaquin, Zithromax, LatexTapeTetanus Shot 04/05/2018, P23 Flu Shot 05/21/2015, P23 Pneumonia 08/13/2015, Prevanar 13 06/27/[address] [facility] Work Phone: Data entered by patient exercise frequency [address] per [address] [facility] Work Phone: Data entered by patient exercise type walking, other [facility] Work Phone: data entered by patient, alcohol (ethanol or ETOH) use No [facility] Work Phone: data entered by patient, drug (of abuse) use No [facility] Work Phone: data entered by patient, Employer Name retired [facility] Work Phone: data entered by patient, exercise history Yes [facility] Work Phone: Data entered by patient, history of past surgeries Abdominal SurgeryAppendectomyDefibril lator insertionGallbladder surgeryHand surgeryHeart cathKnee surgery otherProstrate surgeryTonsillectomy [facility] Work Phone: data entered by patient, mother's medical history Arthritis [facility] Work Phone: data entered by patient, social history, current smoker former smoker [facility] Work Phone: data entered by patient, social history, former smoker [address] [facility] Work Phone: data entered by patient, social history, marital status [facility] Work Phone: Exercise vein comment Go to 5to1 ers 3 to 5 days [address] [facility] Work Phone: father of patient is alive or [facility] Work Phone: father's medical history, comments Gangreenous Gall Bladder at [address] [facility] Work Phone: Housing Type: apartment, house, half-way, trailer, none house [facility] Work Phone: housing unit size (asthma environmental history, housing) (from single family to don't know) [address] [facility] Work Phone: medical history of patient's sister High blood pressure [facility] [employer] Work Phone: mother of patient is alive or [facility] Work Phone: Number of dependent children No [facility] Work Phone: Lab Report: CBC W/Diff, Auto matedon 07-04-2017 Absolute Neut 4.7 X10 3/UL Invalid Interpretation Code 2.0-7.7 [facility] Work Phone: [phone] Basophils/100 WBC Auto (Bld) 0.5 % Invalid Interpretation Code 0-1 [facility] Work Phone: [phone] Eosinophils/100 leukocytes 2.5 % Invalid Interpretation Code 0-5 [facility] Work Phone: [phone] Erythrocyte distribution width Auto Ratio (RBC) 15.0 % High 11.6-14.6 [facility] Work Phone: [phone] Erythrocytes (RBC) 4.10 10*6/uL Low 4.6-6.2 [facility] Work Phone: [phone] Hematocrit (HCT) 37.7 % Low 40-54 [facility] Work Phone: [phone] Hemoglobin mass conc (Bld) 11.5 g/dL Low 13.0-16.5 [facility] Work Phone: [phone] Immature granulocytes/100 WBC (Bld) 0.200 % Invalid Interpretation Code 0.0-0.9 [facility] Work Phone: [phone] Lymphocytes 0.78 X10 3/UL Low 0.83-4.51 [facility] Work Phone: [phone] Lymphocytes/100 leukocytes 12.8 % Low 19-41 [facility] Work Phone: [phone] MCH 28.0 pg Invalid Interpretation Code 27.0-32.0 [facility] Work Phone: [phone] MCHC mass conc (RBC) 30.5 G/GL Low 32-[address] [facility] Work Phone: MCV 92.0 fL Invalid Interpretation Code 80-94 [facility] Work Phone: [phone] Monocytes/100 leukocytes 7.5 % Invalid Interpretation Code 0-10 [facility] Work Phone: [phone] Neutrophils/100 WBC Auto (Bld) 76.5 % High 47-70 [facility] Work Phone: [phone] Platelets 209 10*3/mm3 Invalid Interpretation Code 150-450 [facility] Work Phone: [phone] PMV by Patricia 9.8 fL Invalid Interpretation Code 6.2-12.0 [facility] Work Phone: [phone] RDW SD 49.4 fL High 35.1-43.9 [facility] Work Phone: [phone] WBC (Leukocytes) 6.1 10*3/uL Invalid Interpretation Code 4.4-11.0 [facility] Work Phone: [phone] Lab Report: T4 Total, Thyrox inon 07-04-2017 Thyroxine (T4) 14.3 ug/dL High 4.5-12.1 [facility] Work Phone: [phone]) Lab Report: Thyroid Stim Hor lucrecia (TSH)on 07-04-2017 Thyroid stimulating hormone (TSH) 8.48 u[iU]/mL High 0.358-3.74 [facility] [employer] Phone: [phone] Lab Report: Basic Metabolic Profile (BMP)on 06-08-2017 Anion gap 8 mmol/L Invalid Interpretation Code 5-15 [facility] Work Phone: [phone] BUN/Creatinine Ratio 15.1 RATIO Invalid Interpretation Code 10-20 [facility] Work Phone: [phone] Calcium 8.6 mg/dL Invalid Interpretation Code 8.5-10.1 [facility] [employer] Phone: [phone] Chloride 106 mmol/L Invalid Interpretation Code 98-107 [facility] [employer] Phone: [phone] CO2 25.0 mmol/L Invalid Interpretation Code 21.0-32.0 [facility] Work Phone: [phone] Creatinine 1.52 mg/dL High 0.70-1.30 [facility] [employer] Phone: [phone] eGFR (non-black) 57 mL/min/{1.73_m2} Low >60 [facility] Work Phone: [phone] eGFR (non-black) 47 mL/min/{1.73_m2} Low >60 [facility] Work Phone: [phone] Glucose mass conc 142 mg/dL High 70-110 [facility] Work Phone: [phone] Potassium molar conc 4.3 mmol/L Invalid Interpretation Code 3.5-5.1 [facility] Work Phone: [phone] Sodium 139 mmol/L Invalid Interpretation Code 136-145 [facility] Work Phone: [phone] Urea nitrogen 23 mg/dL High 7-18 [facility] Work Phone: [phone]) Office Visit: [facility] 05-29-20 17 Fall risk assessment No Invalid Interpretation Code [facility] Work Phone: [phone]) Clinical Lists Update: Prelo director of operations home health 05-25-2017 Alanine aminotransferase (ALT) 19 U/L Invalid Interpretation Code [facility] Work Phone: [phone] Albumin 3.4 g/dL Invalid Interpretation Code [facility] Work Phone: [phone] Alkaline phosphatase (ALP) 94 U/L Invalid Interpretation Code [facility] Work Phone: [phone] Aspartate aminotransferase (AST) 13 U/L Low [facility] Work Phone: [phone] Bilirubin (total) 0.70 mg/dL Invalid Interpretation Code [facility] Work Phone: [phone] Globulin 3.5 g/dL Invalid Interpretation Code [facility] Work Phone: [phone] Protein 6.9 g/dL Invalid Interpretation Code [facility] Work Phone: [phone]) Office Visit: [facility] 05-18-20 17 Documentation of current medications (procedure) Done Invalid Interpretation Code [facility] Work Phone: [phone] Replaced Document: [facility] E CG Observationson 05-18-2017 EKG QRS axis 15 deg Invalid Interpretation Code [facility] Work Phone: [phone]) Interpretation Sinus Rhythm -First degree A-V block Luther = 241Low voltage in limb leads. -Intraventricular conduction defect -consider left ventricular hypertrophy. -Old anterior infarct. - Diffuse nonspecific T-abnormality. ABNORMAL Invalid Interpretation Code [facility] Work Phone: [phone] P [place] 49 deg Invalid Interpretation Code [facility] Work Phone: [phone] DE Interval 241 ms Invalid Interpretation Code [facility] Work Phone: [phone] Pulse (Heart Rate) 72 /min Invalid Interpretation Code [facility] Work Phone: [phone] QRS Duration 151 ms Invalid Interpretation Code [facility] Work Phone: [phone] QT Interval new path ms Invalid Interpretation Code [facility] Work Phone: [phone] QTc Quinonez 463 ms Invalid Interpretation Code [facility] Work Phone: [phone] T [place] 1 deg Invalid Interpretation Code [facility] [employer] Phone: [phone]) Lab Report: Magnesiumon 01-25 Magnesium 0.8 mg/dL Critically low 1.8-2.4 [facility] Work Phone: [phone]) Clinical Lists Update: Prelo director of operations home health 12-22-2016 Left ventricular Ejection fraction 45 % Invalid Interpretation Code [facility] [employer] Phone: [phone] Chart Maintenanceon 12-01-19 17 Hemoglobin A1c/Hemoglobin.total mass fraction (Bld) 7.2 % High [facility] [employer] Phone: [phone]) Office Visit: 3 mo f/u - Iro n deficiency anemia - PHQ9 Completeon 11-07-2016 Adolescent depression screening assessment Adolescent depression screening assessment Invalid Interpretation Code [facility] [employer] Phone: [phone] Adult depression screening assessment Adult depression screening assessment Invalid Interpretation Code [facility] [employer] Phone: [phone] Dietary management education, guidance, and counseling (procedure) yes Invalid Interpretation Code [facility] [employer] Phone: [phone] Tobacco smoking status NHIS Never Invalid Interpretation Code [facility] [employer] Phone: [phone] Tobacco use CPHS Former smoker Invalid Interpretation Code [facility] [employer] Phone: Lab Report: Erythropoietinon 11-01-2016 ERYTHROP [id number] 25.0 m[iU]/mL High 2.6-18.5 [facility] Work Phone: [phone]) Lab Report: Comprehensive Me tabolic Profilon 10-30-2016 Albumin/Globulin Ratio 1.1 {ratio} Invalid Interpretation Code 0.9-2.4 [facility] Work Phone: [phone] Globulin 3.3 g/dL Invalid Interpretation Code 2.3-3.5 [facility] Work Phone: [phone]) Lab Report: Ferritinon 10-30 Ferritin 88 ng/mL Invalid Interpretation Code 26-388 [facility] Work Phone: [phone]) Lab Report: Iron+Iron Bindin g Capacityon 10-30-2016 Iron 59 ug/dL Low 65-175 [facility] Work Phone: [phone] iron binding capacity, total 300 ug/dL Invalid Interpretation Code 250-450 [facility] Work Phone: [phone] iron saturation percent, serum 19.7 % Invalid Interpretation Code 15.0-55.0 [facility] Work Phone: [phone]) Lab Report: Retic Panelon Reticulocytes/100 erythrocytes 2.10 % High 0.5-1.5 [facility] Work Phone: [phone] Office Visit: 2 mo f/u (PASTOR) PHQ9 Completeon 06-08-2016 Adult depression screening assessment Adult depression screening assessment Invalid Interpretation Code [facility] Work Phone: [phone] Microbiology: Culture, Blood (WB)on 01-30-2016 Bacteria culture BCNo growth in 5 days. Invalid Interpretation Code [facility] Work Phone: [phone]) Clinical Lists Update: Prelo director of operations home health 01-27-2016 Bilirubin (direct) 0.16 mg/dL Invalid Interpretation Code [facility] Work Phone: [phone] Cholesterol 97 mg/dL Invalid Interpretation Code [facility] Work Phone: [phone] HDL Cholesterol 56 mg/dL Invalid Interpretation Code [facility] Work Phone: [phone] LDL Cholesterol 27 mg/dL Invalid Interpretation Code [facility] Work Phone: [phone] Triglyceride 68 mg/dL Invalid Interpretation Code [facility] Work Phone: [phone] very low density lipoproteins 14 mg/dL Invalid Interpretation Code [facility] Work Phone: [phone]) Lab Report: Haptoglobinon Haptoglobin 192 mg/dL Invalid Interpretation Code 34-200 [facility] Work Phone: [phone]) Lab Report: PENNY + Protein El ect, Serumon 01-18-2016 Albumin 3.9 g/dL Invalid Interpretation Code 3.2-5.6 [facility] Work Phone: [phone] Alpha 2 globulin 0.7 g/dL Invalid Interpretation Code 0.4-1.2 [facility] Work Phone: [phone] DJZFJ-2-IKHP 0.2 g/dL Invalid Interpretation Code 0.1-0.4 [facility] Work Phone: [phone] BETA GLOBULIN 1.0 g/dL Invalid Interpretation Code 0.6-1.3 [facility] Work Phone: [phone] Gamma globulin 800 mg/dL Invalid Interpretation Code Units converted. See lab report for original value. [facility] Work Phone: [phone] PENNY RESULT,S Comment Invalid Interpretation Code . [facility] Work Phone: [phone] IgA 141 mg/dL Invalid Interpretation Code 61-437 [facility] Work Phone: [phone] IgG 807 mg/dL Invalid Interpretation Code 700-1600 [facility] Work Phone: [phone] IgM 89 mg/dL Invalid Interpretation Code 15-143 [facility] Work Phone: [phone] M-SPIKE . Invalid Interpretation Code [facility] Work Phone: [phone] NOTE: Comment Invalid Interpretation Code . [facility] Work Phone: [phone] Protein 6.7 g/dL Invalid Interpretation Code 6.0-8.5 [facility] Work Phone: [phone]) Lab Report: Protein Electro. Ur-Randomon 01-18-2016 Protein [Mass] in Urine collected for unspecified duration 33.8 mg/dL Invalid Interpretation Code Not Estab. [facility] Work Phone: [phone]) Lab Report: Folates, (Folic Acid)on 01-14-2016 Folate 50.10 ng/mL High 3.1-17.5 [facility] Work Phone: [phone]) Lab Report: LDHon 01-14-2016 LDH 197 U/L Invalid Interpretation Code 87-241 [facility] [employer] Phone: [phone]) Lab Report: Vitamin B12on Cobalamins (Vitamin B12) 642 pg/mL Invalid Interpretation Code 211-911 [facility] Work Phone: [phone]) Lab Report: CRPon 01-10-2016 C reactive protein (CRP) 0.323 mg/dL High Units converted. See lab report for original value. [facility] Work Phone: [phone]) Lab Report: Erythrocyte Sed Rateon 01-10-2016 Erythrocyte sedimentation rate 18 mm/h Invalid Interpretation Code 0-20 [facility] Phone: [phone]) Office Visit: df IV ce ftrix. 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 Left ventricular Ejection fraction 35 % Invalid Interpretation Code [facility] Phone: [phone]) Lab Report: BNP,B-Type NATRI URETIC PEPTIDEon 05-25-2015 BNP 85.3 pg/mL Invalid Interpretation Code 0-100 [facility] Work Phone: [phone] Lab Report: CBC W/Diff, Auto matedon 05-25-2015 Absolute Neut 6.1 X10 3/UL Invalid Interpretation Code 2.0-7.7 [facility] Phone: [phone]) Office Visiton 10-06-2014 cardiac risk group C Invalid Interpretation Code [facility] [employer] Phone: [phone] General cardiovascular disease 10Y risk [#] [place] N/A Invalid Interpretation Code [facility] [employer] Phone: [phone]) Lab Report: PTon 12-20-2013 INR Coag RelTime (PPP) 1.0 {INR} Normal [facility] Work Phone: [phone] PTP 12.1 SECONDS Normal 11.9-14.4 [facility] Work Phone: [phone]) Lab Report: UAon 12-20-2013 specific gravity, urine 1.015 Normal 1.002-1.03 0 [facility] Work Phone: [phone] Coumadin Management: Coumadi n Managementon 08-29-2013 Prothrombin time (PT) Coag time (PPP) 21.9 s Invalid Interpretation Code [facility] Work Phone: [phone]) Replaced Document: [facility] E CG Observationson 10-22-2012 Pulse (Heart Rate) 481 ms Invalid Interpretation Code [facility] Work Phone: [phone]) Lab Report: T3UPon 2 tT3UP 35 % Normal 33-40 [facility] Work Phone: [phone] Clinical Lists Update: 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 T3RU + T4 Total + Free Thyroxin Index 4.7 High [facility] Work Phone: [phone] triiodothyronine (t3) uptake, serum 35 % Invalid Interpretation Code [facility] Work Phone: [phone] No Panel Information Enteric Bacteriology [facility] Work Phone: Vital Signs Date Time Vital Sign Value Performing Clinician Facility 04-08-2025 [id number] Body height 180.3 cm Estrellita Soto MD Work Phone: [facility] 04-08-2025 10:06-0400 Body mass index (BMI) [Ratio] 28.17 kg/m2 Estrellita Soto MD Work Phone: [facility] 04-08-2025 10:06-0400 Body weight 91.63 kg Estrellita Soto MD Work Phone: [facility] 04-08-2025 10:06-0400 Diastolic blood pressure 60 mm[Hg] Estrellita Soto MD Work Phone: [facility] 04-08-2025 10:06-0400 Heart rate 66 /min Estrellita Soto MD Work Phone: [facility] 04-08-2025 10:06-0400 Respiratory rate 18 /min Estrellita Soto MD Work Phone: [facility] 04-08-2025 10:06-0400 SaO2% (BldA) [Mass fraction] 94 % Estrellita Soto MD Work Phone: [facility] 04-08-2025 10:06-0400 Systolic blood pressure 120 mm[Hg] Estrellita Soto MD Work Phone: [facility] 01-21-2025 07:52-0400 Body height 187.96 cm Katherin Soriano MD Work Phone: [facility] 01-21-2025 07:52-0400 Body mass index (BMI) [Ratio] 26.9 kg/m2 Katherin Soriano MD Work Phone: [facility] 01-21-2025 07:52-0400 Body temperature 97.8 [degF] Katherin Soriano MD Work Phone: [facility] 01-21-2025 07:52-0400 Body weight 95.25 kg Katherin Soriano MD Work Phone: [facility] 01-21-2025 07:52-0400 Diastolic blood pressure 65 mm[Hg] Katherin Soriano MD Work Phone: [facility] 01-21-2025 07:52-0400 Heart rate 75 /min Katherin Soriano MD Work Phone: [facility] 01-21-2025 07:52-0400 Respiratory rate 16 /min Katherin Soriano MD Work Phone: [facility] 01-21-2025 07:52-0400 SaO2% (BldA) [Mass fraction] 98 % Katherin Soriano MD Work Phone: [facility] 01-21-2025 07:52-0400 Systolic blood pressure 130 mm[Hg] Katherin Soriano MD Work Phone: [facility] 11-10-2024 08:24-0400 Heart rate 88 /min Katherin Soriano MD Work Phone: 9(735)521-808977 [place] [address] 11-10-2024 08:24-0400 Respiratory rate 18 /min Katherin Soriano MD Work Phone: 6(261)317-061541 [place] [address] 11-10-2024 08:24-0400 SaO2% (BldA) [Mass fraction] 94 % Katherin Soriano MD Work Phone: 9(850)417-893341 [place] [address] 11-10-2024 07:27-0400 Diastolic blood pressure 72 mm[Hg] Katherin Soriano MD Work Phone: 3(504)628-603441 [place] [address] 11-10-2024 07:27-0400 Systolic blood pressure 176 mm[Hg] Katherin Soriano MD Work Phone: 8(649)515-363441 [place] [address] 11-10-2024 05:31-0400 Body height 187.96 cm Katherin Soriaon MD Work Phone: 2(920)806-664341 [place] [address] 11-10-2024 05:31-0400 Body mass index (BMI) [Ratio] 27.8 kg/m2 Katherin Soriano MD Work Phone: 4(276)789-524541 [place] [address] 11-10-2024 05:31-0400 Body temperature 98.6 [degF] Katherin Soriano MD Work Phone: 0(482)854-579341 [place] [address] 11-10-2024 05:31-0400 Body weight 98.6 kg Katherin Soriano MD Work Phone: 5(761)439-961341 [place] [address] 09-17-2024 16:31-0500 Diastolic blood pressure 60 mm[Hg] Katherin Soriano MD Work Phone: 4(826)508-346341 [place] [address] 09-17-2024 16:31-0500 Systolic blood pressure 140 mm[Hg] Katherin Soriano MD Work Phone: 2(255)220-729941 [place] [address] 09-17-2024 14:13-0500 Body height 187.96 cm Katherin Soriano MD Work Phone: 9(161)705-054577 [place] [address] 07-01-2024 14:04-0500 Body mass index (BMI) [Ratio] 26.9 kg/m2 Katherin Soriano MD Work Phone: [facility] 07-01-2024 14:04-0500 Body temperature 97.7 [degF] Katherin Soriano MD Work Phone: [facility] 07-01-2024 14:04-0500 Body weight 95.25 kg Katherin Soriano MD Work Phone: [facility] 07-01-2024 14:04-0500 Heart rate 79 /min Katherin Soriano MD Work Phone: [facility] 07-01-2024 14:04-0500 Respiratory rate 18 /min Katherin Soriano MD Work Phone: [facility] 07-01-2024 14:04-0500 SaO2% (BldA) [Mass fraction] 96 % Katherin Soriano MD Work Phone: [facility] 03-27-2024 09:24-0400 Body height 181 cm Estrellita Soto MD Work Phone: [facility] 03-27-2024 09:24-0400 Body mass index (BMI) [Ratio] 29.08 kg/m2 Estrellita Soto MD Work Phone: [facility] 03-27-2024 09:24-0400 Body weight 95.25 kg Estrellita Soto MD Work Phone: [facility] 03-27-2024 09:24-0400 Diastolic blood pressure 67 mm[Hg] Estrellita Soto MD Work Phone: [facility] 03-27-2024 09:24-0400 Heart rate 79 /min Estrellita Soto MD Work Phone: [facility] 03-27-2024 09:24-0400 Respiratory rate 16 /min Estrellita Soto MD Work Phone: [facility] 03-27-2024 09:24-0400 SaO2% (BldA) [Mass fraction] 98 % Estrellita Soto MD Work Phone: [facility] 03-27-2024 09:24-0400 Systolic blood pressure 126 mm[Hg] Estrellita Soto MD Work Phone: [facility] 12-25-2023 01:03-0400 Body temperature 98.4 [degF] Dr. Corin Hernandez Work Phone: [facility] 12-25-2023 01:03-0400 Diastolic blood pressure 56 mm[Hg] Dr. Corin Hernandez Work Phone: [facility] 12-25-2023 01:03-0400 Heart rate 72 /min Dr. Corin Hernandez Work Phone: [facility] 12-25-2023 01:03-0400 Respiratory rate 16 /min Dr. Corin Hernandez Work Phone: [facility] 12-25-2023 01:03-0400 SaO2% (BldA) [Mass fraction] 97 % Dr. Corin Hernandez Work Phone: [facility] 12-25-2023 01:03-0400 Systolic blood pressure 171 mm[Hg] Dr. Corin Hernandez Work Phone: [facility] 12-25-2023 00:57-0400 Body mass index (BMI) [Ratio] 27.3 kg/m2 Dr. Corin Hernandez Work Phone: [facility] 12-25-2023 00:57-0400 Body weight 96.[address] Corin Hernandez Work Phone: [facility] 12-25-2023 00:10-0400 Body height 187.[address] Corin Hernandez Work Phone: [facility] 07-05-2023 09:29-0500 Diastolic blood pressure 53 mm[Hg] Dr. Corin Hernandez Work Phone: [facility] 07-05-2023 09:29-0500 Heart rate 66 /min Dr. Corin Hernandez Work Phone: 7(037)742-616558 [address] 07-05-2023 09:29-0500 Respiratory rate 18 /min Dr. Corin Hernandez Work Phone: 2(207)631-479241 [place] [address] 07-05-2023 09:29-0500 SaO2% (BldA) [Mass fraction] 96 % Dr. Corin Hernandez Work Phone: 8(701)640-641341 [place] [address] 07-05-2023 09:29-0500 Systolic blood pressure 151 mm[Hg] Dr. Corin Hernandez Work Phone: 5(380)967-713841 [place] [address] 06-08-2023 09:10-0400 Body height 187.[address] Corin Hernandez Work Phone: 2(240)099-245141 [place] [address] 06-08-2023 09:10-0400 Body mass index (BMI) [Ratio] 26.8 kg/m2 Dr. Corin Hernandez Work Phone: 2(788)273-858841 [place] [address] 06-08-2023 09:10-0400 Body weight 94.[address] Corin Hernandez Work Phone: 3(092)114-246941 [place] [address] 05-29-2023 08:45-0400 Body mass index (BMI) [Ratio] 26.6 kg/m2 Dr. Corin Hernandez Work Phone: 2(608)253-624541 [place] [address] 05-29-2023 08:45-0400 Body weight 93.[address] Corin Hernandez Work Phone: 7(130)157-206441 [place] [address] 05-29-2023 08:45-0400 Diastolic blood pressure 48 mm[Hg] Dr. Corin Hernandez Work Phone: 1(763)179-891741 [place] [address] 05-29-2023 08:45-0400 Heart rate 59 /min Dr. Corin Hernandez Work Phone: 9(882)850-092941 [place] [address] 05-29-2023 08:45-0400 Respiratory rate 18 /min Dr. Corin Hernandez Work Phone: 6(193)264-812741 [place] [address] 05-29-2023 08:45-0400 SaO2% (BldA) [Mass fraction] 98 % Dr. Corin Hernandez Work Phone: 5(562)456-554341 [place] [address] 05-29-2023 08:45-0400 Systolic blood pressure 125 mm[Hg] Dr. Corin Hernandez Work Phone: 1(016)502-357441 [place] [address] 05-23-2023 01:37-0400 Diastolic blood pressure 70 mm[Hg] Dr. Corin Hernandez Work Phone: 2(072)364-797241 [place] [address] 05-23-2023 01:37-0400 Heart rate 75 /min Dr. Corin Hernandez Work Phone: 8(745)800-953741 [place] [address] 05-23-2023 01:37-0400 Respiratory rate 18 /min Dr. Corin Hernandez Work Phone: 5(199)053-245641 [place] [address] 05-23-2023 01:37-0400 SaO2% (BldA) [Mass fraction] 94 % Dr. Corin Hernandez Work Phone: 4(933)978-612241 [place] [address] 05-23-2023 01:37-0400 Systolic blood pressure 155 mm[Hg] Dr. Corin Hernandez Work Phone: 0(919)604-289341 [place] [address] 05-22-2023 22:37-0400 Body height 187.[address] Corin Hernandez Work Phone: 0(775)808-583941 [place] [address] 05-22-2023 22:37-0400 Body temperature 97.9 [degF] Dr. Corin Hernandez Work Phone: 1(165)067-762441 [place] [address] 05-20-2023 08:44-0400 Body height 187.[address] Corin Hernandez Work Phone: 8(461)485-728541 [place] [address] 05-20-2023 08:44-0400 Body mass index (BMI) [Ratio] 28.3 kg/m2 Dr. Corin Hernandez Work Phone: 9(298)965-999341 [place] [address] 05-20-2023 08:44-0400 Body temperature 98.4 [degF] Dr. Corin Hernandez Work Phone: 5(958)177-117241 [place] [address] 05-20-2023 08:44-0400 Body weight 99.[address] Corin Hernandez Work Phone: 3(923)770-868041 [place] [address] 05-20-2023 08:44-0400 Diastolic blood pressure 82 mm[Hg] Dr. Corin Hernandez Work Phone: [facility] 05-20-2023 08:44-0400 Heart rate 68 /min Dr. Corin Hernandez Work Phone: [facility] 05-20-2023 08:44-0400 Respiratory rate 16 /min Dr. Corin Hernandez Work Phone: [facility] 05-20-2023 08:44-0400 SaO2% (BldA) [Mass fraction] 97 % Dr. Corin Hernandez Work Phone: [facility] 05-20-2023 08:44-0400 Systolic blood pressure 138 mm[Hg] Dr. Corin Hernandez Work Phone: [facility] 03-08-2023 11:12-0400 Diastolic blood pressure 77 mm[Hg] Dr. Corin Hernandez Work Phone: [facility] 03-08-2023 11:12-0400 Heart rate 79 /min Dr. Corin Hernandez Work Phone: [facility] 03-08-2023 11:12-0400 Respiratory rate 15 /min Dr. Corin Hernandez Work Phone: [facility] 03-08-2023 11:12-0400 SaO2% (BldA) [Mass fraction] 98 % Dr. Corin Hernandez Work Phone: [facility] 03-08-2023 11:12-0400 Systolic blood pressure 112 mm[Hg] Dr. Corin Hernandez Work Phone: [facility] 03-08-2023 09:03-0400 Body height 187.[address] Corin Hernandez Work Phone: [facility] 03-08-2023 09:03-0400 Body mass index (BMI) [Ratio] 27.9 kg/m2 Dr. Corin Hernandez Work Phone: [facility] 03-08-2023 09:03-0400 Body temperature 98 [degF] Dr. Corin Hernandez Work Phone: [facility] 03-08-2023 09:03-0400 Body weight 98.[address] Corin Hernandez Work Phone: [facility] 11-28-2022 13:26-0400 Body height 187.[address] Corin Hernandez Work Phone: [facility] 11-28-2022 13:26-0400 Diastolic blood pressure 58 mm[Hg] Dr. Corin Hernandez Work Phone: [facility] 11-28-2022 13:26-0400 Systolic blood pressure 120 mm[Hg] Dr. Corin Hernandez Work Phone: [facility] 11-28-2022 13:21-0400 Body mass index (BMI) [Ratio] 3.3 kg/m2 Dr. Corin Hernandez Work Phone: [facility] 11-28-2022 13:21-0400 Body weight 11.[address] Corin Hernandez Work Phone: [facility] 11-28-2022 13:21-0400 Heart rate 62 /min Dr. Corin Hernandez Work Phone: [facility] 11-28-2022 13:21-0400 Respiratory rate 20 /min Dr. Corin Hernandez Work Phone: [facility] 11-28-2022 13:21-0400 SaO2% (BldA) [Mass fraction] 98 % Dr. Corin Hernandez Work Phone: [facility] 06-20-2022 10:14-0400 Body height 187.[address] Corin Hernandez Work Phone: [facility] 06-20-2022 10:14-0400 Diastolic blood pressure 70 mm[Hg] Dr. Corin Hernandez Work Phone: [facility] 06-20-2022 10:14-0400 Systolic blood pressure 130 mm[Hg] Dr. Corin Hernandez Work Phone: [facility] 06-20-2022 10:13-0400 Body mass index (BMI) [Ratio] 27.2 kg/m2 Dr. Corin Hernandez Work Phone: [facility] 06-20-2022 10:13-0400 Body weight 96.[address] Corin Hernandez Work Phone: [facility] 06-20-2022 10:13-0400 Heart rate 55 /min Dr. Corin Hernandez Work Phone: [facility] 06-20-2022 10:13-0400 Respiratory rate 18 /min Dr. Corin Hernandez Work Phone: [facility] 06-20-2022 10:13-0400 SaO2% (BldA) [Mass fraction] 100 % Dr. Corni Hernandez Work Phone: [facility] 04-05-2022 13:13-0400 Heart rate 89 /min Dr. Corin Hernandez Work Phone: [facility] Work Phone: 04-05-2022 13:13-0400 Respiratory rate 96 /min Dr. Corin Hernandez Work Phone: [facility] Work Phone: 04-05-2022 13:05-0400 Body temperature 97.7 [degF] Dr. Corin Hernandez Work Phone: [facility] Work Phone: 04-05-2022 13:05-0400 Diastolic blood pressure 52 mm[Hg] Dr. Corin Hernandez Work Phone: [facility] Work Phone: 04-05-2022 13:05-0400 SaO2% (BldA) [Mass fraction] 97 % Dr. Corin Hernandez Work Phone: [facility] Work Phone: 04-05-2022 13:05-0400 Systolic blood pressure 129 mm[Hg] Dr. Corin Hernandez Work Phone: [facility] Work Phone: 04-05-2022 09:56-0400 Body mass index (BMI) [Ratio] 26.9 kg/m2 Dr. Corin Hernandez Work Phone: [facility] Work Phone: 04-02-2022 14:53-0400 Body height 187.[address] Corin Hernandez Work Phone: [facility] Work Phone: 04-02-2022 14:53-0400 Body weight 95.[address] Corin Hernandez Work Phone: [facility] Work Phone: 04-02-2022 10:38-0400 Body temperature 98.2 [degF] Dr. Corin Hernandez Work Phone: [facility] Work Phone: 04-02-2022 10:38-0400 Diastolic blood pressure 81 mm[Hg] Dr. Corin Hernandez Work Phone: [facility] Work Phone: 04-02-2022 10:38-0400 Heart rate 78 /min Dr. Corin Hernandez Work Phone: [facility] Work Phone: 04-02-2022 10:38-0400 Respiratory rate 17 /min Dr. Corin Hernandez Work Phone: [facility] Work Phone: 04-02-2022 10:38-0400 SaO2% (BldA) [Mass fraction] 98 % Dr. Corin Hernandez Work Phone: [facility] Work Phone: 04-02-2022 10:38-0400 Systolic blood pressure 167 mm[Hg] Dr. Corin Hernandez Work Phone: [facility] Work Phone: 04-02-2022 08:31-0400 Body height 187.[address] Corin Hernandez Work Phone: [facility] Work Phone: 04-02-2022 08:31-0400 Body mass index (BMI) [Ratio] 26.9 kg/m2 Dr. Corin Hernandez Work Phone: [facility] Work Phone: 04-02-2022 08:31-0400 Body weight 95.[address] Corin Hernandez Work Phone: [facility] Work Phone: 03-24-2022 12:53-0400 Body mass index (BMI) [Ratio] 27.2 kg/m2 Dr. Corin Hernandez Work Phone: [facility] Work Phone: 03-24-2022 12:53-0400 Body weight 96.[address] Corin Hernandez Work Phone: [facility] Work Phone: 03-24-2022 12:53-0400 Diastolic blood pressure 70 mm[Hg] Dr. Corin Hernandez Work Phone: [facility] Work Phone: 03-24-2022 12:53-0400 Heart rate 72 /min Dr. Corin Hernandez Work Phone: [facility] Work Phone: 03-24-2022 12:53-0400 Systolic blood pressure 110 mm[Hg] Dr. Corin Hernandez Work Phone: [facility] Work Phone: 03-06-2022 13:03-0400 Body height 187.[address] Corin Hernandez Work Phone: [facility] Work Phone: 03-06-2022 13:03-0400 Body mass index (BMI) [Ratio] 27.2 kg/m2 Dr. Corin Hernandez Work Phone: [facility] Work Phone: 03-06-2022 13:03-0400 Body weight 96.[address] Corin Hernandez Work Phone: [facility] Work Phone: 02-01-2022 10:48-0400 Body height 187.[address] Corin Hernandez Work Phone: [facility] Work Phone: 02-01-2022 10:48-0400 Body mass index (BMI) [Ratio] 27.3 kg/m2 Dr. Corin Hernandez Work Phone: [facility] Work Phone: 02-01-2022 10:48-0400 Body weight 96.[address] Corin Hernandez Work Phone: [facility] Work Phone: 02-01-2022 10:48-0400 Diastolic blood pressure 69 mm[Hg] Dr. Corin Hernandez Work Phone: [facility] Work Phone: 02-01-2022 10:48-0400 Heart rate 72 /min Dr. Corin Hernandez Work Phone: [facility] Work Phone: 02-01-2022 10:48-0400 Respiratory rate 18 /min Dr. Croin Hernandez Work Phone: [facility] Work Phone: 02-01-2022 10:48-0400 SaO2% (BldA) [Mass fraction] 96 % Dr. Corin Hernandez Work Phone: [facility] Work Phone: 02-01-2022 10:48-0400 Systolic blood pressure 135 mm[Hg] Dr. Corin Hernandez Work Phone: [facility] Work Phone: 01-24-2022 16:26-0400 Diastolic blood pressure 91 mm[Hg] Dr. Corin Hernandez Work Phone: [facility] Work Phone: 01-24-2022 16:26-0400 Heart rate 99 /min Dr. Corin Hernandez Work Phone: [facility] Work Phone: 01-24-2022 16:26-0400 Respiratory rate 16 /min Dr. Corin Hernandez Work Phone: [facility] Work Phone: 01-24-2022 16:26-0400 SaO2% (BldA) [Mass fraction] 98 % Dr. Corin Hernandez Work Phone: [facility] Work Phone: 01-24-2022 16:26-0400 Systolic blood pressure 131 mm[Hg] Dr. Corin Hernandez Work Phone: [facility] Work Phone: 01-24-2022 13:34-0400 Body height 187.[address] Corin Hernandez Work Phone: [facility] Work Phone: 01-24-2022 13:34-0400 Body mass index (BMI) [Ratio] 27.4 kg/m2 Dr. Corin Hernandez Work Phone: [facility] Work Phone: 01-24-2022 13:34-0400 Body temperature 97.5 [degF] Dr. Corin Hernandez Work Phone: [facility] Work Phone: 01-24-2022 13:34-0400 Body weight 97.[address] Corin Hernandez Work Phone: [facility] Work Phone: 01-19-2022 13:00-0400 Body mass index (BMI) [Ratio] 27.8 kg/m2 Dr. Corin Hernandez Work Phone: [facility] Work Phone: 01-19-2022 13:00-0400 Body weight 95.[address] Corin Hernanedz Work Phone: [facility] Work Phone: 01-19-2022 13:00-0400 Diastolic blood pressure 47 mm[Hg] Dr. Corin Hernandez Work Phone: [facility] Work Phone: 01-19-2022 13:00-0400 Heart rate 76 /min Dr. Corin Hernandez Work Phone: [facility] Work Phone: 01-19-2022 13:00-0400 Respiratory rate 18 /min Dr. Corin Hernandez Work Phone: [facility] Work Phone: 01-19-2022 13:00-0400 SaO2% (BldA) [Mass fraction] 97 % Dr. Corin Hernandez Work Phone: [facility] Work Phone: 01-19-2022 13:00-0400 Systolic blood pressure 105 mm[Hg] Dr. Corin Hernandez Work Phone: [facility] Work Phone: 01-04-2022 11:17-0400 Inhaled oxygen flow rate 0 L/min Dr. Corin Hernandez Work Phone: [facility] Work Phone: 01-04-2022 11:17-0400 SaO2% (BldA) [Mass fraction] 95 % Dr. Corin Hernandez Work Phone: [facility] Work Phone: 01-04-2022 10:00-0400 Body temperature 97.9 [degF] Dr. Corin Hernandez Work Phone: [facility] Work Phone: 01-04-2022 10:00-0400 Diastolic blood pressure 56 mm[Hg] Dr. Corin Hernandez Work Phone: [facility] Work Phone: 01-04-2022 10:00-0400 Heart rate 83 /min Dr. Corin Hernandez Work Phone: [facility] Work Phone: 01-04-2022 10:00-0400 Respiratory rate 16 /min Dr. Corin Hernandez Work Phone: [facility] Work Phone: 01-04-2022 10:00-0400 Systolic blood pressure 126 mm[Hg] Dr. Corin Hernandez Work Phone: [facility] Work Phone: 01-04-2022 06:00-0400 Body weight 96.[address] Corin Hernandez Work Phone: [facility] Work Phone: 01-04-2022 05:05-0400 Inhaled oxygen concentration 30 % Dr. Corin Hernandez Work Phone: [facility] Work Phone: 01-02-2022 13:05-0400 Body height 185.[address] Corin Hernandez Work Phone: [facility] Work Phone: 01-01-2022 22:16-0400 Body mass index (BMI) [Ratio] 27.4 kg/m2 Dr. Corin Hernandez Work Phone: [facility] Work Phone: 01-01-2022 21:46-0400 Body temperature 97.7 [degF] Dr. Corin Hernandez Work Phone: [facility] Work Phone: 01-01-2022 21:46-0400 Diastolic blood pressure 92 mm[Hg] Dr. Corin Hernandez Work Phone: [facility] Work Phone: 01-01-2022 21:46-0400 Heart rate 99 /min Dr. Corin Hernandez Work Phone: [facility] Work Phone: 01-01-2022 21:46-0400 Respiratory rate 16 /min Dr. Corin Hernandez Work Phone: [facility] Work Phone: 01-01-2022 21:46-0400 SaO2% (BldA) [Mass fraction] 97 % Dr. Corin Hernandez Work Phone: [facility] Work Phone: 01-01-2022 21:46-0400 Systolic blood pressure 168 mm[Hg] Dr. Corin Hernandez Work Phone: [facility] Work Phone: 01-01-2022 16:31-0400 Body height 187.[address] Corin Hernandez Work Phone: [facility] Work Phone: 01-01-2022 16:31-0400 Body mass index (BMI) [Ratio] 26.9 kg/m2 Dr. Corin Hernandez Work Phone: [facility] Work Phone: 01-01-2022 16:31-0400 Body weight 95.[address] Corin Hernandez Work Phone: [facility] Work Phone: 11-22-2021 10:28-0400 Body height 188 cm Jayy Cancino MD Work Phone: [facility] 11-22-2021 10:28-0400 Body weight 99.11 kg Jayy Cancino MD Work Phone: [facility] 11-22-2021 10:28-0400 Diastolic blood pressure 72 mm[Hg] Jayy Cancino MD Work Phone: [facility] 11-22-2021 10:28-0400 Heart rate 65 /min Jayy Cancino MD Work Phone: [facility] 11-22-2021 10:28-0400 Systolic blood pressure 150 mm[Hg] Jayy Cancino MD Work Phone: [facility] 09-23-2021 12:04-0500 Body mass index (BMI) [Ratio] 27.7 kg/m2 Dr. Corin Hernandez Work Phone: [facility] Work Phone: 09-23-2021 12:04-0500 Body weight 97.[address] Corin Hernandez Work Phone: [facility] Work Phone: 09-23-2021 12:04-0500 Diastolic blood pressure 74 mm[Hg] Dr. Corin Hernandez Work Phone: [facility] Work Phone: 09-23-2021 12:04-0500 Heart rate 84 /min Dr. Corin Hernandez Work Phone: [facility] Work Phone: 09-23-2021 12:04-0500 Respiratory rate 18 /min Dr. Corin Hernandez Work Phone: [facility] Work Phone: 09-23-2021 12:04-0500 SaO2% (BldA) [Mass fraction] 96 % Dr. Corin Hernandez Work Phone: [facility] Work Phone: 09-23-2021 12:04-0500 Systolic blood pressure 143 mm[Hg] Dr. Corin Hernandez Work Phone: [facility] Work Phone: 05-29-2017 09:46-0400 BMI (Body Mass Index) 26.32 kg/m2 Bhavna Chiang PA-C [facility] Work Phone: 05-29-2017 09:46-0400 BP Diastolic 48 mm[Hg] Bhavna Chiang PA-C [facility] Work Phone: 05-29-2017 09:46-0400 BP Systolic 110 mm[Hg] Bhavna Chiang PA-C [facility] Work Phone: 05-29-2017 09:46-0400 Height 187.96 cm JAISON [facility] Work Phone: 05-29-2017 09:46-0400 Pulse (Heart Rate) 68 /min Bhavna Chiang PA-C [facility] Work Phone: 05-29-2017 09:46-0400 Respiratory Rate 18 /min Bhavna Chiang PA-C [facility] Work Phone: 05-29-2017 09:46-0400 Weight 92.99 kg JAISON [facility] Work Phone: 05-18-2017 15:00-0400 Body Temperature 97.6 [degF] Bhavna Chiang PA-C [facility] Work Phone: 02-12-2017 13:00-0400 BP Diastolic 50 mm[Hg] Bhavna Chiang PA-C [facility] Work Phone: 02-12-2017 13:00-0400 BP Systolic 130 mm[Hg] Bhavna Chiang PA-C [facility] Work Phone: 11-07-2016 09:29-0400 BSA (Body Surface Area) 2.22 m2 Bhavna Chiang PA-C [facility] Work Phone: 08-10-2016 10:13-0500 Height 187.96 cm JAISON [facility] Work Phone: 08-10-2016 10:13-0500 Weight 94 kg Bhavna Chiang PA-C [facility] Work Phone: 01-21-2016 09:39-0400 Body Temperature 97.59 [degF] Bhavna Chiang PA-C [facility] Work Phone: NEGATED: Highlighted [id number] 10:24-0500 BMI (Body Mass Index) 30.63 kg/m2 Autumn Frost LPN [facility] Work Phone: NEGATED: Highlighted [id number] 10:24-0500 BP Diastolic 74 mm[Hg] Autumncurtis Frost [employer] [facility] Work Phone: NEGATED: Highlighted [id number] 10:24-0500 BP Systolic 129 mm[Hg] Autumn Santosh HELMET HAT SWEATB[employer] PUNCHER [facility] Work Phone: NEGATED: Highlighted [id number] 10:24-0500 Height 182.88 cm Autumncurtis Frost HELMET H[employer]WE[employer] P[employer]CHER [facility] Work Phone: NEGATED: Highlighted [id number] 10:24-0500 Height 183 cm Autumncurtis Frost HELMET HAT SWE[employer] PUNCHER [facility] Work Phone: NEGATED: Highlighted [id number] 10:24-0500 Pulse (Heart Rate) 54 /min Autumn Frost LPN [facility] Work Phone: NEGATED: Highlighted [id number] 10:24-0500 Weight 102.06 kg Autumncurtis Frost HELMET H[employer]WE[employer] P[employer]CHER [facility] Work Phone: NEGATED: Highlighted [id number] 10:24-0500 Weight 102 kg Autumncurtis Frost HELMET H[employer]WE[employer] P[employer]CHER [facility] Work Phone: Encounters Encounter Date Encounter Type Care Provider Facility Start: 05-06-2025 End: 05-06-2025 ambulatory Katherin Soriano MD Work Phone: -[facility] Start: 05-06-2025 End: 05-06-[address] Bunny Verdin MD -[facility] Work Phone: Start: 04-28-2025 End: 04-28-2025 ambulatory Katherin Soriano MD Work Phone: -Laboratory Start: 04-28-2025 End: 04-28-[address] Michelle Mcfarlane MD -Laboratory Work Phone: Start: 04-28-2025 End: 04-28-2025 ambulatory Chalon Christie Facility:[facility] Start: 04-22-2025 End: 04-22-2025 ambulatory Katherin Soriano MD Work Phone: -[facility] Start: 04-22-2025 End: 04-22-[address] Bunny Verdin MD -[facility] Work Phone: Start: 04-21-2025 End: 04-21-2025 ambulatory Katherin Soriano MD Work Phone: -Laboratory [facility] Start: 04-21-2025 End: 04-21-[address] Katherin Soriano MD -Laboratory [facility] Start: 04-21-2025 End: 04-21-2025 ambulatory Chalalanna Christie Facility:[facility] Start: 04-08-2025 End: 04-08-2025 Office outpatient visit 25 minutes Estrellita Soto MD Work Phone: [facility] Cardiology [place] Comment on above: Ischemic cardiomyopa thy (Primary Dx); 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ailure (HCC); Atherosclerosis of red devil coronary artery of red devil heart without angina pectoris; History of sudden cardiac arrest successfully resuscitated; Presence of implantable cardioverter-defibrillator (ICD); Persistent atrial fibrillation (HCC); At risk for stroke; At risk for bleeding associated with anticoagulants; Anticoagulant long-term use; Complete left bundle branch block (LBBB) Start: 04-08-2025 End: 04-08-2025 ambulatory KATHERIN SORIANO [facility] Start: 02-25-2025 End: 02-25-2025 ambulatory Katherin Soriano MD Work Phone: -Laboratory Start: 02-25-2025 End: 02-25-[address] Shu Gotti MD -Laboratory Work Phone: Start: 02-25-2025 End: 02-25-[facility] Start: 02-04-2025 End: 02-04-2025 ambulatory Katherin Soriano MD Work Phone: [facility] Work Phone: Start: 02-04-2025 End: 02-04-[address] Bunny Verdin MD -[facility] Work Phone: Start: 01-21-2025 End: 01-21-[address] Douglas Livingston MD -[facility] Work Phone: Start: 01-21-2025 End: 01-21-2025 ambulatory Katherin Soriano MD Work Phone: [facility] Work Phone: Start: 12-15-2024 Non-patient / Non-visit Dr. Jose Carlos gomes MD -[facility] Start: 12-15-2024 End: 12-15-2024 ambulatory Katherin Soriano MD Work Phone: [facility] Work Phone: Start: 12-15-2024 End: 12-15-[address] Katherin Soriano MD -Cardiovascular Services Work Phone: Start: 12-15-2024 End: 12-15-2024 ambulatory Katherin Soriano Facility:[facility] Start: 12-01-2024 End: 12-01-2024 ambulatory Katherin Soirano MD Work Phone: [facility] Work Phone: Start: 12-01-2024 End: 12-01-2024 Patient encounter procedure Kimmy SUN -Laboratory Work Phone: Start: 12-01-2024 End: 12-01-2024 ambulatory Chalalanan Christie Facility:[facility] Start: 11-26-2024 End: 11-26-2024 Patient encounter procedure Edward Rosado WRECKER OPERATOR-C -Laboratory Work Phone: Start: 11-26-2024 End: 11-26-2024 ambulatory Edward Rosado NP Facility:[facility] Start: 11-23-2024 ambulatory Katherin Soriano Facility:[facility] Start: 11-19-2024 End: 11-19-2024 ambulatory Katherin Soriano MD Work Phone: [facility] Work Phone: Start: 11-19-2024 End: 11-19-[address] [facility] Start: 11-19-2024 End: 11-19-2024 ambulatory Katherin Soriano Facility:[facility] Start: 11-10-2024 End: 11-10-2024 Emergency department patient visit Katherin Soriano MD Work Phone: -Emergency Department Work Phone: Start: 11-05-2024 End: 11-05-2024 ambulatory Katherin Soriano Facility:[facility] Start: 11-05-2024 End: 11-05-[address] Bunny Verdin MD -[facility] Work Phone: Start: 10-28-2024 End: 10-28-2024 ambulatory Katherin Soriano MD Work Phone: [facility] Work Phone: Start: 10-28-2024 End: 10-28-[address] Shu Gotti MD -Laboratory Work Phone: Start: 10-27-2024 End: 10-28-2024 ambulatory Katherin Soriano MD Work Phone: [facility] Work Phone: Start: 10-27-2024 End: 10-27-[address] Michelle Mcfarlane MD -Laboratory Work Phone: Start: 10-27-2024 End: 10-27-2024 ambulatory Michelle Mcfarlane Facility:[facility] Start: 09-17-2024 End: 09-17-2024 Patient encounter procedure Bhavna BRAY -[facility] Work Phone: Start: 09-17-2024 End: 09-17-2024 ambulatory Katherin Christie Facility:[facility] Start: 09-16-2024 ambulatory Marj Marcial Facility:[facility] Start: 09-02-2024 End: 09-02-[address] Katherin Soriano MD -Laboratory, [facility] Start: 09-02-2024 End: 09-02-2024 ambulatory Katherin Christie Facility:[facility] Start: 08-01-2024 End: 08-01-2024 ambulatory Katherin Christie Facility:[facility] Start: 08-01-2024 End: 08-01-[address] Bunny Verdin MD -[facility] Work Phone: Start: 07-01-2024 End: 07-01-2024 ambulatory Katherin Christie Facility:[facility] Start: 06-17-2024 End: 06-17-2024 ambulatory Shu Gotti Facility:[facility] Start: 06-09-2024 End: 06-09-2024 ambulatory Katherin Soriano Facility:[facility] Start: 03-27-2024 End: 03-27-2024 Office outpatient visit 25 minutes Estrellita Soto MD Work Phone: [facility] Cardiology [place] Comment on above: Ischemic cardiomyopa thy (Primary Dx); 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ailure (HCC); History of sudden cardiac arrest successfully resuscitated; Presence of implantable cardioverter-defibrillator (ICD); Complete left bundle branch block (LBBB); Persistent atrial fibrillation (HCC); At risk for stroke; At risk for bleeding associated with anticoagulants Start: 12-25-2023 End: 12-25-2023 Emergency department patient visit Dr. Corin Hernandez Work Phone: [facility]-Emergency Department Work Phone: Start: 12-18-2023 End: 12-18-[address] Corin Hernandez Work Phone: [facility] Work Phone: Start: 12-18-2023 End: 12-18-[address] [facility] Start: 12-13-2023 End: 12-13-[address] Corin Hernandez Work Phone: [facility] Work Phone: Start: 12-13-2023 End: 12-13-[address] [facility] Start: 10-27-2023 End: 10-27-[address] Corin Hernandez Work Phone: [facility] Work Phone: Start: 10-27-2023 End: 10-27-[address] [facility] Start: 10-25-2023 End: 10-25-[address] Corin Hernandez Work Phone: [facility] Work Phone: Start: 09-11-2023 End: 09-11-[address] Corin Hernandez Work Phone: [facility] Work Phone: Start: 09-11-2023 End: 09-11-[address] Corin Hernandez Work Phone: [facility]Physical Therapy Work Phone: Start: 08-31-[address] Corin montiel Work Phone: [facility] Work Phone: Start: 08-29-2023 End: 08-29-[address] Corin Hernandez Work Phone: [facility] Work Phone: Start: 08-29-2023 End: 08-29-[address] Corin Hernandez Work Phone: [facility] Work Phone: Start: 08-29-2023 End: 08-29-[address] Corin Hernandez Work Phone: [facility]-Laboratory Work Phone: Start: 07-11-2023 End: 07-11-[address] Corin Hernandez Work Phone: [facility] Work Phone: Start: 07-05-2023 End: 07-05-[address] Corin Hernandez Work Phone: [facility] Work Phone: Start: 07-05-2023 End: 07-05-[address] Corin Hernandez Work Phone: [facility] Work Phone: Start: 07-05-2023 End: 07-05-[address] Corin Hernandez Work Phone: [facility] Work Phone: Start: 06-27-2023 End: 06-27-[address] Corin Hernandez Work Phone: [facility] Work Phone: Start: 06-08-2023 End: 06-08-[address] Corin Hernandez Work Phone: [facility] Work Phone: Start: 05-29-2023 End: 05-29-[address] Corin Hernandez Work Phone: [facility] Work Phone: Start: 05-22-2023 End: 05-23-2023 Emergency department patient visit Dr. Corin Hernandez Work Phone: [facility]-Emergency Department Work Phone: Start: 05-21-2023 End: 05-21-[address] Corin Hernandez Work Phone: [facility] Work Phone: Start: 05-21-2023 End: 05-21-[address] Corin Hernandez Work Phone: [facility] Work Phone: Start: 05-20-2023 End: 05-20-[address] Corin Hernandez Work Phone: [facility]-Laboratory, Specimen Work Phone: Start: 05-20-2023 End: 05-20-[address] Corin Hernandez Work Phone: [facility] Work Phone: Start: 05-15-2023 End: 05-15-[address] Corin Hernandez Work Phone: [facility] Work Phone: Start: 05-15-2023 End: 05-16-[address] Corin Hernandez Work Phone: [facility]-Laboratory Work Phone: Start: 05-01-2023 End: 05-01-2023 ambulatory [facility] Work Phone: Start: 05-01-2023 End: 05-01-2023 Patient encounter procedure [facility]-Laboratory, [place] Work Phone: Start: 04-23-2023 End: 04-23-2023 ambulatory [facility] Work Phone: Start: 04-23-2023 End: 04-23-2023 Patient encounter procedure [facility]-Laboratory, [place] Work Phone: Start: 04-11-2023 End: 04-11-2023 ambulatory [facility] Work Phone: Start: 04-11-2023 End: 04-11-2023 Patient encounter procedure [facility] Work Phone: Start: 03-27-2023 End: 03-27-[address] Corin Hernandez Work Phone: [facility] Work Phone: Start: 03-27-2023 End: 03-27-[address] [facility] Start: 03-08-2023 End: 03-08-2023 Emergency department patient visit Dr. Corin Hernandez Work Phone: [facility]-Emergency Department Work Phone: Start: 03-02-2023 End: 03-02-[address] Corin Hernandez Work Phone: [facility] Work Phone: Start: 03-02-2023 End: 03-02-[address] Corin Hernandez Work Phone: [facility]-Radiology, [place] Work Phone: Start: 02-07-2023 End: 02-07-[address] Corin Hernandez Work Phone: [facility] Work Phone: Start: 02-07-2023 End: 02-07-[address] Corin Hernandez Work Phone: [facility] Start: 01-30-[address] Corin cash [facility] Start: 01-08-2023 End: 01-08-[address] Corin Hernandez Work Phone: [facility] Start: 12-13-2022 End: 12-13-[address] Corin Hernandez Work Phone: [facility] Start: 11-29-2022 End: 11-29-[address] Corin Hernandez Work Phone: [facility] Start: 11-28-2022 End: 11-28-[address] Corin Hernandez Work Phone: [facility] Start: 09-14-2022 End: 09-14-[address] Corin Hernandez Work Phone: [facility] Work Phone: Start: 09-14-2022 End: 09-14-[address] [facility] Hernandez [facility] Start: 09-09-2022 End: 09-09-[address] Corin Hernandez Work Phone: [facility] Work Phone: Start: 09-09-2022 End: 09-09-[address] Corin Hernandez Work Phone: [facility] Start: 09-06-2022 End: 09-06-[address] Corin Hernandez Work Phone: [facility] Start: 06-21-2022 End: 06-21-[address] Corin Hernandez Work Phone: [facility] Start: 06-20-2022 End: 06-20-[address] Corin Hernandez Work Phone: [facility] Start: 06-05-2022 End: 06-05-[address] Corin Hernandez Work Phone: [facility] Work Phone: Start: 06-05-2022 End: 06-05-[address] Corin Hernandez Work Phone: [facility]-Laboratory Start: 05-10-2022 End: 05-10-[address] Corin Hernandez Work Phone: [facility] Start: 04-05-2022 End: 04-05-[address] Corin Hernandez Work Phone: [facility] Start: 04-05-2022 Non-patient / Non-visit Dr. Shayy Hernandez Work Phone: [facility] Start: 04-04-2022 Non-patient / Non-visit Dr. Shayy Hrenandez Work Phone: [facility] Start: 04-03-2022 Non-patient / Non-visit Dr. Shayy Hernandez Work Phone: [facility] Start: 04-02-2022 Non-patient / Non-visit Dr. Shayy Hernandez Work Phone: [facility] Start: 04-02-2022 End: 04-05-2022 Evaluation and management of inpatient Dr. Corin Hernandez Work Phone: [facility]Pro[facility] Start: 03-24-2022 End: 03-24-[address] Corin Hernandez Work Phone: [facility] Start: 03-24-2022 End: 03-24-2022 ambulatory Nurse Pob Work Phone: [facility] Comment on above: Visit for wound chec k (Primary Dx) Start: 03-24-2022 End: 03-24-2022 Telemedicine consultation with patient Nurse Card Ag [place] Pob Work Phone: [facility] Start: 03-23-2022 End: 03-23-[address] Corin Hernandez Work Phone: [facility] Start: 03-17-2022 Telephone encounter Estrellita briseno MD Work Phone: [facility] ADULT Comment on above: Wound Check Start: 03-13-2022 Telephone encounter Estrellita briseno MD Work Phone: [facility] Comment on above: Preparations For Pro cedures Start: 03-09-2022 End: 03-09-[address] Corin Hernandez Work Phone: [facility]-Laboratory Start: 03-06-2022 End: 03-06-[address] Corin Hernandez Work Phone: [facility] Start: 03-01-2022 End: 03-01-[address] Corin Hernandez Work Phone: [facility]-Laboratory, [place] Start: 02-13-2022 End: 02-13-[address] Corin Hernandez Work Phone: [facility]Laboratory Start: 02-01-2022 End: 02-01-[address] Corin Hernandez Work Phone: [facility] Start: 01-30-2022 End: 01-30-[address] Corin Hernandez Work Phone: [facility] Start: 01-24-2022 End: 01-24-2022 Emergency department patient visit Dr. Corin Hernandez Work Phone: [facility]Emergency Department Start: 01-19-2022 End: 01-19-[address] Corin Hernandez Work Phone: [facility] Start: 01-09-2022 End: 01-09-[address] Corin Hernandez Work Phone: [facility] Start: 01-04-2022 Non-patient / Non-visit Dr. Shayy Hernandez Work Phone: [facility] Start: 01-03-2022 Non-patient / Non-visit Dr. Shayy Hernandez Work Phone: [facility] Start: 01-02-2022 Non-patient / Non-visit Dr. Shayy Hernandez Work Phone: [facility] Start: 01-01-2022 End: 01-04-2022 Evaluation and management of inpatient Dr. Corin Hernandez Work Phone: [facility]Pro[facility] Start: 01-01-2022 Non-patient / Non-visit Dr. Shayy Hernandez Work Phone: [facility] Start: 11-22-2021 ambulatory Jayy Cancino MD Work Phone: Urology Start: 11-22-2021 End: 11-22-2021 Patient encounter procedure Jayy Cancino MD Work Phone: Urology Comment on above: Renal calculi (Prima ry Dx); Controlled type 2 diabetes mellitus with diabetic nephropathy, with long-term current use of insulin (HCC); Renal cyst; Chronic diarrhea Start: 11-18-2021 End: 11-18-2021 Subsequent hospital visit by physician Judy [facility] Justin Work Phone: Radiology Comment on above: Renal calculi [N20.0 ] Start: 11-16-2021 End: 11-16-[address] Corin Hernandez Work Phone: [facility] Start: 09-23-2021 End: 09-23-[address] Corin Hernandez Work Phone: [facility] Start: 01-13-2019 Patient encounter procedure EM SUAREZ Facility:[facility] Start: 2018 End: 2018 Patient encounter procedure Liam Heath MD Work Phone: [facility] Work Phone: Start: 01-23-2018 End: 01-23-2018 Patient encounter procedure ESTRELLITA SOTO Facility:[facility] Procedures Date Procedure Procedure Detail Performing Clinician Start: 04-21-2025 Total iron binding capacity measurement Katherin Soriano MD Work Phone: Start: 04-21-2025 Vitamin D, 25-hydroxy measurement Katherin Soriano MD Work Phone: Comment on above: Vitamin D StatusDeficiency: <20 ng/mL (5 0nmol/L)Insufficiency: 20-30 ng/mL (50-75 nmol/L)Sufficiency: 30-100 ng/mL (75-250 nmol/L)Toxicity: >100 ng/mL (>250 nmol/L) Start: 04-08-2025 Ecg routine ecg w/least 12 lds w/i&r Estrellita Soto MD Work Phone: Start: 11-19-2024 X-ray of chest, PA and lateral views Katherin Soriano MD Work Phone: Start: 11-10-2024 SARS-CoV-2, Influenza & RSV (PCR) Katherin Soriano MD Work Phone: Start: 11-10-2024 Plain chest X-ray Katherin Soriano MD Work Phone: Start: 10-28-2024 Urine microalbumin/creatinine ratio measurement Katherin Soriano MD Work Phone: Start: 10-28-2024 Parathyroid hormone measurement Katherin Soriano MD Work Phone: Start: 10-28-2024 Vitamin D, 25-hydroxy measurement Katherin Soriano MD Work Phone: Comment on above: Vitamin D StatusDeficiency: <20 ng/mL (5 0nmol/L)Insufficiency: 20-30 ng/mL (50-75 nmol/L)Sufficiency: 30-100 ng/mL (75-250 nmol/L)Toxicity: >100 ng/mL (>250 nmol/L) Start: 03-27-2024 Ecg routine ecg w/least 12 lds w/i&r Estrellita Soto MD Work Phone: Start: 07-05-2023 MRI of lumbar spine Dr. Corin Hernandez Work Phone: Start: 05-23-2023 CT of lumbar spine Dr. Corin Hernandez Work Phone: Start: 05-21-2023 X-ray of lumbosacral spine Dr. Corin Hernandez Work Phone: Start: 05-20-[address] Corin Hernandez Work Phone: Start: 04-11-2023 US urinary tract Start: 03-02-2023 Complete x-ray series of lumbar spine with bending views Dr. Corin Hernandez Work Phone: Start: 02-07-2023 X-ray of lumbosacral spine Dr. Corin Hernandez Work Phone: Start: 04-05-2022 MRI of brain without contrast Dr. Corin Hernandez Work Phone: Start: 04-02-2022 CT of head without contrast Dr. Corin Hernandez Work Phone: Start: 01-24-2022 Plain chest X-ray Dr. Corin Hernandez Work Phone: Start: 01-03-2022 End: 01-03-[address] Corin Hernandez Work Phone: Start: 01-03-[address] Corin Hernandez Work Phone: Start: 01-01-2022 Plain chest X-ray Dr. Corin Hernandez Work Phone: Start: 01-01-2022 Computed tomography of abdomen and pelvis with intravenous contrast Dr. Corin Hernandez Work Phone: Start: 11-22-2021 Urnls dip stick/tablet rgnt auto w/o microscopy Bulk Order Provider Start: 11-18-2021 Us retroperitoneal real time w/image complete Jayy Cancino MD Work Phone: Start: 11-18-2021 Radiologic exam abdomen 3+ views Jayy Cancino MD Work Phone: Start: 2018 End: 2018 [...] End: 05-29-2017 Follow Up Appt Other Bhavna Chiang PA-C Work Phone: Start: 05-21-2017 End: 06-26-2017 Follow Up Appt 3 months Bhavna Chiang PA-C Work Phone: Start: 05-21-2017 End: 05-22-2017 Interrogation eval remote 90 d 1/2/financial aid director ld dfb Bhavna Chiang PA-C Work Phone: Start: 05-21-2017 End: 06-26-2017 Pacer Clinic Bhavna Chiang PA-C Work Phone: Start: 05-18-2017 End: 05-18-2017 Follow Up Appt Other Bhavna Chiang PA-C Work Phone: Start: 04-27-2017 History of coronary artery bypass grafting History of coronary artery bypass graft x 2 Xr Mob Work Phone: Comment on above: CABG x 2 Free FAY to LAD (FAY graft of f the antunez of the SVG to the OM as a free graft), reverse SVG to OM1, left atrial appendage clipped 04/27/17 Start: 04-16-2017 End: 04-23-2017 Interrogation eval remote 90 d 1/2/financial aid director ld dfb Bhavna Chiang PA-C Work Phone: Start: 04-12-2017 End: 04-18-2017 Carotid duplex Bunny Verdin MD Start: 03-29-2017 End: 04-02-2017 Interrogation eval remote 90 d 1/2/financial aid director ld dfb Bunny Verdin MD Start: 03-16-2017 End: 03-20-2017 Echocardiography Bhavna Chiang PA-C Work Phone: Start: 03-16-2017 End: 03-16-2017 Follow Up Appt Other Bhavna Chiang PA-C Work Phone: Start: 03-16-2017 End: 04-18-2017 Left Heart Cath Bhavna Chiang PA-C Work Phone: Start: 03-16-2017 End: 04-18-2017 Magnesium [Mass/volume] in Serum or Plasma Bhavna Chiang PA-C Work Phone: Start: 03-15-2017 End: 03-19-2017 Interrogation eval remote 90 d 1/2/financial aid director ld dfb Kareem Mota MD Start: 02-12-2017 End: 02-12-2017 *BMP Bhavna Chiang PA-C Work Phone: Start: 02-12-2017 End: 02-12-2017 *CBC with Differential Bhavna Chiang PA-C Work Phone: Start: 02-12-2017 End: 02-12-2017 AIR POLLUTION SPECIALIST Bhavna Chiang PA-C Work Phone: Start: 02-12-2017 End: 02-12-2017 Follow Up Appt 6 weeks Bhavna Chiang PA-C Work Phone: Start: 02-12-2017 End: 02-13-2017 Interrogation eval remote 90 d 1/2/financial aid director ld dfb Bhavna Chiang PA-C Work Phone: [...] End: 02-05-2017 Interrogation eval remote 90 d //financial aid director ld toby Verdin MD Start: 02-02-2017 End: 02-12-2017 Pacer Clinic Bunny Verdin MD Start: 12-26-2016 End: 02-12-2017 Follow Up Appt 6 months Nic Hadley Start: 12-26-2016 End: 02-12-2017 MMM Bunny Verdin MD Start: 12-04-2016 End: 02-12-2017 Follow Up Appt 3 months Nic Hadley Start: 12-04-2016 End: 02-12-2017 Pacer Clinic Bunny Verdin MD Start: 12-04-2016 End: 12-08-2016 Prgrmng dev eval implantable in persn 1 ld toby Verdin MD Start: 11-01-2016 End: 11-01-2016 Erythropoietin (EPO) [Units/volume] in Serum or Plasma Purvi R Les LANDCARE OFFICER Work Phone: Start: 10-31-2016 End: 10-31-2016 *CBC w/Diff - oncology ONLY Purvi R Les LANDCARE OFFICER Work Phone: Start: 10-31-2016 End: 10-31-2016 *CMP Complete Metabolic Panel Purvi R Les LANDCARE OFFICER Work Phone: Start: 10-31-2016 End: 10-31-2016 Ferritin [Mass/volume] in Serum or Plasma Purvi R Les LANDCARE OFFICER Work Phone: Start: 10-31-2016 End: 10-31-2016 Iron and Iron binding capacity panel - Serum or Plasma Purvi R Les LANDCARE OFFICER Work Phone: Start: 10-23-2016 End: 02-12-2017 Follow Up Appt 1 month Bhavna Chiang PA-C Work Phone: Start: 10-23-2016 End: 10-25-2016 Interrogation eval remote 90 d 1/2/financial aid director ld dfb Bhavna Chiang PA-C Work Phone: Start: 10-23-2016 End: 02-12-2017 Pacer Clinic Bhavna Chiang PA-C Work Phone: Start: 08-29-2016 End: 02-12-2017 Follow Up Appt 1 month Bunny Verdin MD Start: 08-29-2016 End: 08-29-2016 Interrogation eval remote 90 d 1/2/financial aid director ld dfb Bunny Verdin MD Start: 08-29-2016 End: 02-12-2017 Pacer Clinic Bunny Verdin MD Start: 07-31-2016 End: 08-03-2016 *CBC w/Diff - oncology ONLY Purvi R Les LANDCARE OFFICER Work Phone: Start: 07-31-2016 End: 08-03-2016 *CMP Complete Metabolic Panel Purvi R Les LANDCARE OFFICER Work Phone: Start: 07-31-2016 End: 08-08-2016 Erythropoietin (EPO) [Units/volume] in Serum or Plasma Purvi R Les LANDCARE OFFICER Work Phone: Start: 07-31-2016 End: 08-03-2016 Ferritin [Mass/volume] in Serum or Plasma Purvi R Les LANDCARE OFFICER Work Phone: Start: 07-31-2016 End: 08-03-2016 Reticulocytes/100 erythrocytes in Blood Purvi Saldana CNP Work Phone: Start: 07-24-2016 End: 07-24-2016 *BMP Bunny Verdin MD Start: 07-24-2016 End: 02-12-2017 Follow Up Appt 3 months Bhavna Chiang PA-C Work Phone: Start: 07-24-2016 End: 07-24-2016 Interrogation eval remote 90 d 1/2/financial aid director ld dfb Bhavna Chiang PA-C Work Phone: Start: 07-24-2016 End: 07-24-2016 Magnesium [Mass/volume] in Serum or Plasma Bunny Verdin MD Start: 07-24-2016 End: 03-20-2017 Pacer Clinic Bhavna Chiang PA-C Work Phone: Start: 07-24-2016 End: 07-24-2016 Thyrotropin [Units/volume] in Serum or Plasma Bunny Verdin MD Start: 06-21-2016 End: 06-21-2016 AIR POLLUTION SPECIALIST Bhavna Chiang PA-C Work Phone: Start: 06-21-2016 End: 02-12-2017 Follow Up Appt 1 month Bhavna Chiang PA-C Work Phone: Start: 06-21-2016 End: 06-21-2016 Follow Up Appt 6 months Bhavna Chiang PA-C Work Phone: Start: 06-21-2016 End: 06-22-2016 Interrogation eval remote 90 d 1/2/financial aid director ld dfb Bhavna Chiang PA-C Work Phone: Start: 06-21-2016 End: 02-12-2017 Pacer Clinic Bhavna Chiang PA-C Work Phone: Start: 06-02-2016 End: 06-12-2016 *CMP Complete Metabolic Panel Rachid Dagoberto Malone DO Start: 06-02-2016 End: 06-12-2016 Ferritin [Mass/volume] in Serum or Plasma Rachid Malone DO Start: 06-02-2016 End: 06-12-2016 Reticulocytes/100 erythrocytes in Blood Rachidmulugeta Malone DO Start: 05-22-2016 End: 05-29-2016 Follow Up Appt 1 month Bunny Verdin MD Start: 05-22-2016 End: 05-23-2016 Interrogation eval remote 90 d 1/2/financial aid director ld toby Verdin MD Start: 05-22-2016 End: 05-29-2016 Pacer Clinic Bunny Verdin MD Start: 04-17-2016 End: 05-29-2016 Follow Up Appt 3 months Nic Hadley Start: 04-17-2016 End: 04-17-2016 Interrogation eval remote 90 d 1/2/financial aid director ld toby Verdin MD Start: 04-17-2016 End: 05-29-2016 Pacer Clinic Bunny Verdin MD Start: 03-14-2016 End: 05-29-2016 Follow Up Appt 1 month Bunny Verdin MD Start: 03-14-2016 End: 03-19-2016 Interrogation eval remote 90 d 1/2/financial aid director ld dfhiral Verdin MD Start: 03-14-2016 End: 05-29-2016 Pacer Clinic Bunny Verdin MD Start: 03-03-2016 End: 03-31-2016 *CMP Complete Metabolic Panel Rachidmulugeta Malone DO Start: 03-03-2016 End: 03-31-2016 Ferritin [Mass/volume] in Serum or Plasma Rachid Malone DO Start: 03-03-2016 End: 05-29-2016 Follow Up Appt 3 months Nic Hadley Start: 03-03-2016 End: 03-10-2016 Interrogation eval remote 90 d 1/2/financial aid director ld dfb Bunny Verdin MD Start: 03-03-2016 End: 05-29-2016 MMM Bunny Verdin MD Start: 02-08-2016 End: 03-03-2016 Follow Up Appt 1 month Bunny Verdin MD Start: 02-08-2016 End: 02-14-2016 Nurse, Teaching, Wound Check (no charge) Bunny Verdin MD Start: 02-08-2016 End: 03-03-2016 Pacer Clinic Bunny Verdin MD Start: 01-17-2016 End: 01-18-2016 *CBC with Differential Ronit Bonner MD Start: 01-17-2016 End: 01-18-2016 *CMP Complete Metabolic Panel Ronit Bonner MD Start: 01-10-2016 End: 01-11-2016 *CBC with Differential Ronit Bonner MD Start: 01-10-2016 End: 01-11-2016 C reactive protein [Mass/volume] in Serum or Plasma by High sensitivity method Ronit Bonner MD Start: 01-10-2016 End: 01-11-2016 Erythrocyte sedimentation rate Ronit Bonner MD Start: 12-28-2015 End: 12-28-2015 *CBC with Differential Ronit J Kailey SPARKS Start: 12-28-2015 End: 12-28-2015 C reactive protein [Mass/volume] in Serum or Plasma by High sensitivity method Ronit Bonner MD Start: 12-28-2015 End: 12-28-2015 Erythrocyte sedimentation rate Ronit Bonner MD Start: 12-24-2015 End: 12-24-2015 AIR POLLUTION SPECIALIST Bhavna Chiang PA-C Work Phone: Start: 12-24-2015 End: 12-24-2015 Follow Up Appt 2 months Bhavna Chiang PA-C Work Phone: Start: 12-22-2015 End: 12-28-2015 [...] End: 06-07-2015 Follow Up Appt Other Bhavna Chiang PA-C Work Phone: Start: 06-07-2015 End: 07-02-2015 Magnesium [Mass/volume] in Serum or Plasma Bhavna Chiang PA-C Work Phone: Start: 06-07-2015 End: 06-08-2015 Pedal pulse taking Bhavna Chiang PA-C Work Phone: Start: 05-31-2015 End: 05-31-2015 Magnesium [Mass/volume] in Serum or Plasma Bhavna Chiang PA-C Work Phone: Start: 05-25-2015 End: 05-26-2015 *BMP Bhavna Chiang PA-C Work Phone: Start: 05-25-2015 End: 05-26-2015 *CBC with Differential Bhavna Chiang PA-C Work Phone: Start: 05-25-2015 End: 05-27-2015 24 hour holter monitor Bhavna Chiang PA-C Work Phone: Start: 05-25-2015 End: 05-26-2015 Documentation of current medications Bhavna Chiang PA-C Work Phone: Start: 05-25-2015 End: 05-25-2015 Ecg routine ecg w/least 12 lds w/i&r Bhavna Chiang PA-C Work Phone: Start: 05-25-2015 End: 05-25-2015 Follow Up Appt Other Bhavna Chiang PA-C Work Phone: Start: 05-25-2015 [...] 04-07-2015 Follow Up Appt 6 months Bhavna Chiang PA-C Work Phone: Start: 04-07-2015 End: 04-08-2015 Pedal pulse taking Bhavna Chiang PA-C Work Phone: Start: 04-07-2015 End: 04-07-2015 PFM Bhavna Chiang PA-C Work Phone: Start: 10-06-2014 End: 10-07-2014 Documentation of current medications Bunny Verdin MD Start: 10-06-2014 End: 03-30-2015 Follow Up Appt 6 months Nic Hadley Start: 10-06-2014 End: 03-30-2015 MMM Bunny Verdin MD Start: 10-06-2014 End: 10-07-2014 Pedal pulse taking Bunny Verdin MD Start: 03-24-2014 End: 03-30-2015 48 hour holter monitor Bhavna Chiang PA-C Work Phone: Start: 03-24-2014 End: 03-24-2014 AIR POLLUTION SPECIALIST Bhavna Chiang PA-C Work Phone: Start: 03-24-2014 End: 03-24-2014 Follow Up Appt 6 months Bhavna Chiang PA-C Work Phone: Start: 09-16-2013 End: 09-16-2013 Follow Up Appt 6 months Nic Hadley Start: 09-16-2013 End: 09-16-2013 AG Verdin MD Start: 08-27-2013 End: 12-22-2013 *Hepatic Function Panel Nic Hadley Start: 08-27-2013 End: 12-22-2013 Lipid 1996 panel - Serum or Plasma Bunny Verdin MD Start: 05-29-2013 End: 03-09-2014 24 hour holter monitor Bhavna Chiang PA-C Work Phone: Start: 05-29-2013 End: 05-29-2013 AIR POLLUTION SPECIALIST Bhavna Chiang PA-C Work Phone: Start: 05-29-2013 End: 05-29-2013 Follow Up Appt 3 months Bhavna Chiang PA-C Work Phone: Start: 02-25-2013 End: 03-06-2013 *Hepatic Function Panel Nic Hadley Start: 02-25-2013 End: 05-21-2013 Echocardiography Bunny Verdin MD Start: 02-25-2013 End: 02-25-2013 Follow Up Appt 3 months Nic Hadley Start: 02-25-2013 End: 03-06-2013 Lipid Andrade panel - Serum or Plasma Bunny Verdin MD Start: 02-25-2013 End: 02-25-2013 AG Verdin MD Start: 02-17-2013 End: 03-06-2013 *Hepatic [...] Fran Jewell MD Start: 10-22-2012 End: 01-06-2013 *BMP Fran Jewell MD Start: 10-22-2012 End: 01-06-2013 *Hepatic [...] Fran Jewell MD Start: 06-20-2012 End: 09-17-2012 *BMP Fran Jewell MD Start: 06-20-2012 End: 09-17-2012 Magnesium [Mass/volume] in Serum or Plasma Fran Jewell MD Start: 06-13-2012 End: 06-13-2012 *BUFFY Jewell MD Start: 06-13-2012 End: 06-13-2012 *Hepatic [...] Fran Jewell MD Start: 05-29-2012 End: 06-05-2012 *BUFFY Jewell MD Start: 05-29-2012 End: 06-05-2012 *Hepatic [...] w/least 12 lds w/i&r Fran Jewell MD Clostridium difficil e detection Dr. Corin Hernandez Work Phone: Enteric Bacteriology Dr. Corin Hernandez Work Phone: H/O: surgery Hx of prostatectomy Dr. Corin Hernandez Work Phone: History of cholecystectomy Hx of cholecystectomy Dr. Corin Hernandez Work Phone: Plan of Treatment Date Care Activity Detail Author Start: 04-18-2033 Urine microalbumin profile DTaP,Tdap,Td Vaccine (4 - Td or Tdap) [facility] Start: 04-05-2028 Urine microalbumin profile [facility] Start: 04-19-2026 End: 04-19-2026 Patient encounter procedure 04/19/2026 10:00 AM EDT Office Visit [facility] [address] [place] [address] Estrellita Soto MD [address] [phone] 1 year follow up- hlk [facility] Comment on above: 1 year follow up- hl k Start: 05-20-2025 ambulatory Ambulatory Facility:[facility] Start: 04-27-2025 Influenza vaccination Influenza Vacc ine (#1) [facility] Start: 04-08-2025 End: 04-08-2025 Patient encounter procedure 04/08/2025 10:00 AM EDT Office Visit [facility] [address] [place] [address] Estrellita Soto MD [address] [place] [address] [place] [phone] Return in about 1 year (around 03/27/2025) for Dr. Soto, [place]. [facility] [place] Comment on above: Return in about 1 ye ar (around 03/27/2025) for Dr. Soto, [place] office. Start: 11-10-2024 [facility] Start: 11-10-2024 Plain chest X-ray Chest 1 View (Port able) [facility] Start: 11-10-2024 XR Chest Single view [facility] Start: 08-27-2024 Advance Directive Discussion Advance Directive Discussion [facility] Start: 04-27-2024 Influenza vaccination Influenza Vacc ine (#1) [facility] Start: 12-25-2023 [facility] Start: 08-27-2023 Advance Directive Discussion Advance Directive Discussion [facility] Start: 07-11-2023 Patient referral [facility] Work Phone: Start: 05-21-2023 X-ray of lumbosacral spine L/S Spine Min 4 Views [facility] Start: 05-21-2023 XR Spine Lumbar and Sacrum GE 4 Views [facility] Start: 05-20-2023 [facility] Start: 05-20-2023 Bacteria identified in Urine by Culture [facility] Start: 05-01-2023 Prostate specific an tigen measurement [facility] Start: 05-01-2023 Thyroid stimulating hormone measurement [facility] Start: 04-27-2023 Covid-19 Vaccine ( season) Covid-19 Vaccine ( season) [facility] Start: 04-27-2022 Influenza vaccination [facility] Start: 04-05-2022 Patient discharge [facility] Work Phone: Start: 04-05-2022 [facility] Work Phone: Start: 04-03-2022 Continuous positive airway pressure ventilation treatment [facility] Work Phone: Start: 04-02-2022 End: 04-03-2022 [facility] Work Phone: Start: 04-02-2022 Following clinical pathway protocol [facility] Work Phone: Start: 04-02-2022 Assessment of risk o f venous thromboembolism [facility] Work Phone: Start: 04-02-2022 Cardiac monitoring [facility] Work Phone: Start: 04-02-2022 Care regimes management [facility] Work Phone: Start: 04-02-2022 Catheterization of vein [facility] Work Phone: Start: 04-02-2022 Elevation of head of bed [facility] Work Phone: Start: 04-02-2022 Exercises [facility] Work Phone: Start: 04-02-[address] anned interventions [facility] Work Phone: Start: 04-02-2022 Inhalation therapy procedure [facility] Work Phone: Start: 04-02-2022 Insertion of cathete r into peripheral vein [facility] Work Phone: Start: 04-02-2022 Measuring intake and output [facility] Work Phone: Start: 04-02-2022 Notification of physician [facility] Work Phone: Start: 04-02-2022 Oxygen therapy [facility] Work Phone: Start: 04-02-2022 Patient referral to dietitian [facility] Work Phone: Start: 04-02-2022 Providing care accor ding to standard [facility] Work Phone: Start: 04-02-2022 Provision of activit y privileges [facility] Work Phone: Start: 04-02-2022 Referral to occupati onal therapist [facility] Work Phone: Start: 04-02-2022 Referral to service [facility] Work Phone: Start: 04-02-2022 Tobacco use cessatio n education [facility] Work Phone: Start: 04-02-2022 Verification routine Wo [facility] Work Phone: Start: 04-02-2022 Admission procedure [facility] Work Phone: Start: 01-04-2022 Patient discharge [facility] Work Phone: Start: 01-03-2022 Enteric precautions [facility] Work Phone: Start: 01-03-2022 Referral to client specialist [facility] Work Phone: Start: 01-02-2022 Referral to service [facility] Work Phone: Start: 01-01-2022 Following clinical pathway protocol [facility] Work Phone: Start: 01-01-2022 Application of intermittent pneumatic compression device [facility] Work Phone: Start: 01-01-2022 Assessment of risk o f venous thromboembolism [facility] Work Phone: Start: 01-01-2022 Care regimes management [facility] Work Phone: Start: 01-01-2022 Continuous positive airway pressure ventilation treatment [facility] Work Phone: Start: 01-01-2022 Elevation of affecte d extremity [facility] Work Phone: Start: 01-01-2022 Incentive spirometry [facility] Work Phone: Start: 01-01-2022 Inhalation therapy procedure [facility] Work Phone: Start: 01-01-2022 Insertion of cathete r into peripheral vein [facility] Work Phone: Start: 01-01-2022 Introduction of urin [place] catheter [facility] Work Phone: Start: 01-01-2022 Measuring intake and output [facility] Work Phone: Start: 01-01-2022 Notification of physician [facility] Work Phone: Start: 01-01-2022 Oxygen therapy [facility] Work Phone: Start: 01-01-2022 Patient education [facility] Work Phone: Start: 01-01-2022 Providing care accor ding to standard [facility] Work Phone: Start: 01-01-2022 Provision of activit y privileges [facility] Work Phone: Start: 01-01-2022 Referral to service [facility] Work Phone: Start: 01-01-2022 [facility] Work Phone: Start: 01-01-2022 Admission procedure [facility] Work Phone: Start: 01-01-2022 Computed tomography of abdomen and pelvis with intravenous contrast Abdomen/Pelvis W IV Cont ONLY [facility] Work Phone: Start: 01-01-2022 Patient referral to dietitian [facility] Work Phone: Start: 08-27-2021 ADVANCE DIRECTIVE DISCUSSION ADVANCE DIRECTIVE DISCUSSION [facility] Start: 04-27-2021 Influenza vaccination INFLUENZA (#1) [facility] Start: 03-27-2021 COVID-19 VACCINE (4 - Booster) COVID-19 VACCINE (4 - Booster) [facility] Start: 2018 End: 2018 Appointment Appointment [facility] Work Phone: Start: 2018 End: 2018 Radex hand minimum 3 views XR HAND 3+ VWS-LT [facility] Work Phone: Start: 05-01-2018 Hepatitis B screening URINE ALBUMIN:CREATININE RATIO [facility] Start: 10-19-2017 Hemoglobin A1c measurement HbA1C [facility] Start: 10-19-2017 Hemoglobin A1c/Hemoglobin.total in Blood HBA1C [facility] Start: 08-29-2017 End: 08-29-2017 Appointment Appointment [facility] Work Phone: Start: 07-06-2017 End: [...] Up Appt Other Follow Up Appt Other [facility] Work Phone: Start: 05-25-2017 End: 05-18-2017 *BMP *BMP [facility] Work Phone: Start: 05-21-2017 End: 06-26-2017 Follow Up Appt 3 months Follow Up Appt 3 months [facility] Work Phone: Start: 05-21-2017 End: 06-26-2017 Pacer Clinic [facility] Work Phone: Start: 05-18-2017 End: 05-18-2017 Follow Up Appt Other Follow Up Appt Other [facility] Work Phone: Start: 05-01-2017 End: 11-07-2016 *CBC w/Diff - oncology ONLY *CBC w/Diff - oncology ONLY [facility] Work Phone: Start: 05-01-2017 End: [...] 04-12-2017 End: 04-13-2017 Carotid duplex Carotid duplex [facility] Work Phone: Start: 03-16-2017 End: 03-20-2017 Echocardiography Echocardiogram (complete) [facility] Work Phone: Start: 03-16-2017 End: 03-16-2017 Follow Up Appt Other Follow Up Appt Other [facility] Work Phone: Start: 03-16-2017 End: 04-18-2017 Left Heart Cath Left Heart Cath [facility] Work Phone: Start: 03-16-2017 End: 04-18-2017 Magnesium *Magnesium [facility] Work Phone: Start: 02-12-2017 End: 02-12-2017 *BMP *BMP [facility] Work Phone: Start: 02-12-2017 End: 02-12-2017 *CBC with Differential *CBC with Differential [facility] Work Phone: Start: 02-12-2017 End: 02-12-2017 AIR POLLUTION SPECIALIST AIR POLLUTION SPECIALIST [facility] Work Phone: Start: 02-12-2017 End: 02-12-2017 Follow Up Appt 6 weeks Follow Up Appt 6 weeks [facility] Work Phone: Start: 02-12-2017 End: 02-12-2017 Magnesium *Magnesium [facility] Work Phone: Start: 02-12-2017 End: 02-12-2017 Thyroid stimulating hormone (TSH) *TSH [facility] Work Phone: Start: 02-12-2017 End: 02-12-2017 Thyroxine (T4) *T4 (Total) [facility] Work Phone: Start: 02-12-2017 End: 02-12-2017 Xtrnl mobile cv telemetry w/i&report 30 days 30 Day Holter Monitor [facility] Work Phone: Start: 02-02-2017 End: 02-12-2017 Follow Up Appt 1 month Follow Up Appt 1 month [facility] Work Phone: Start: 02-02-2017 End: 02-12-2017 Pacer Clinic Pacer Clinic [facility] Work Phone: Start: 12-26-2016 End: 02-12-2017 Follow Up Appt 6 months Follow Up Appt 6 months [facility] Work Phone: Start: 12-26-2016 End: 02-12-2017 MMM MMM [facility] Work Phone: Start: 12-04-2016 End: 02-12-2017 Follow Up Appt 3 months Follow Up Appt 3 months [facility] Work Phone: Start: 12-04-2016 End: 02-12-2017 Pacer Clinic Pacer Clinic [facility] Work Phone: Start: 11-08-2016 End: 10-31-2016 *CBC w/Diff - oncology ONLY *CBC w/Diff - oncology ONLY [facility] Work Phone: Start: 11-08-2016 End: 10-31-2016 *CMP Complete Metabolic Panel *CMP Complete Metabolic Panel [facility] Work Phone: Start: 11-08-2016 End: 11-01-2016 Erythropoietin *MICHAEL- Erythropoietin [facility] Work Phone: Start: 11-08-2016 End: 10-31-2016 Ferritin *Ferritin [facility] Work Phone: Start: 11-08-2016 End: 10-31-2016 Iron and Iron binding capacity panel - Serum or Plasma *IBC Iron & Total Iron Binding Capacity [facility] Work Phone: Start: 10-23-2016 End: 02-12-2017 Follow Up Appt 1 month Follow Up Appt 1 month [facility] Work Phone: Start: 10-23-2016 End: 02-12-2017 [facility]er [facility] Work Phone: Start: 10-06-2016 Hepatitis B surface antibody level LDL CHOLESTEROL [facility] Start: 08-29-2016 End: 02-12-2017 Follow Up Appt 1 month Follow Up Appt 1 month [facility] Work Phone: Start: 08-29-2016 End: 02-12-2017 [facility] Work Phone: Start: 08-10-2016 End: 08-10-2016 Office outpatient visit 25 minutes [id number] Ofc Vst, Est Level IV [facility] Work Phone: Start: 07-31-2016 End: 08-03-2016 *CBC w/Diff - oncology ONLY *CBC w/Diff - oncology ONLY [facility] Work Phone: Start: 07-31-2016 End: 08-03-2016 *CMP Complete Metabolic Panel *CMP Complete Metabolic Panel [facility] Work Phone: Start: 07-31-2016 End: 06-08-2016 *MISC - Miscellaneous Lab Test #1 *MISC - Miscellaneous Lab Test #1 [facility] Work Phone: Start: 07-31-2016 End: 08-08-2016 Erythropoietin *MICHAEL- Erythropoietin [facility] Work Phone: Start: 07-31-2016 End: 08-03-2016 Ferritin *Ferritin [facility] Work Phone: Start: 07-31-2016 End: 08-03-2016 Reticulocytes/100 erythrocytes *Reticulocyte Count [facility] Work Phone: Start: 07-24-2016 End: 07-24-2016 *BMP *BMP [facility] Work Phone: Start: 07-24-2016 End: 02-12-2017 Follow Up Appt 3 months Follow Up Appt 3 months [facility] Work Phone: Start: 07-24-2016 End: 07-24-2016 Magnesium *Magnesium [facility] Work Phone: Start: 07-24-2016 End: 03-20-2017 [facility] Work Phone: Start: 07-24-2016 End: 07-24-2016 Thyroid stimulating hormone (TSH) *TSH [facility] Work Phone: Start: 07-02-2016 Hepatitis B surface antibody level LDL Cholesterol [facility] Start: 06-21-2016 End: 06-21-2016 AIR POLLUTION SPECIALIST AIR POLLUTION SPECIALIST [facility] Work Phone: Start: 06-21-2016 End: 02-12-2017 Follow Up Appt 1 month Follow Up Appt 1 month [facility] Work Phone: Start: 06-21-2016 End: 06-21-2016 Follow Up Appt 6 months Follow Up Appt 6 months [facility] Work Phone: Start: 06-21-2016 End: 02-12-2017 [facility] Work Phone: Start: 06-02-2016 End: 03-31-2016 *CBC with Differential *CBC with Differential [facility] Work Phone: Start: 06-02-2016 End: 06-12-2016 *CMP Complete Metabolic Panel *CMP Complete Metabolic Panel [facility] Work Phone: Start: 06-02-2016 End: 03-31-2016 *MISC - Miscellaneous Lab Test #1 *MISC - Miscellaneous Lab Test #1 [facility] Work Phone: Start: 06-02-2016 End: 06-12-2016 Ferritin *Ferritin [facility] Work Phone: Start: 06-02-2016 End: 06-12-2016 Reticulocytes/100 erythrocytes *RETIC Reticulocyte Count Manul [facility] Work Phone: Start: 05-22-2016 End: 05-29-2016 Follow Up Appt 1 month Follow Up Appt 1 month [facility] Work Phone: Start: 05-22-2016 End: 05-29-2016 Pacer Clinic Pacer Clinic [facility] Work Phone: Start: 04-17-2016 End: 05-29-2016 Follow Up Appt 3 months Follow Up Appt 3 months [facility] Work Phone: Start: 04-17-2016 End: 05-29-2016 Pacer Clinic [facility] Work Phone: Start: 03-31-2016 End: 03-31-2016 ENT referral ENT referral Connor Navarro, [address] [place] [address], [place], [address] [facility] Work Phone: Start: 03-14-2016 End: 05-29-2016 Follow Up Appt 1 month Follow Up Appt 1 month [facility] Work Phone: Start: 03-14-2016 End: 05-29-2016 Pacer Clinic [facility] Work Phone: Start: 03-03-2016 End: 01-25-2016 *CBC with Differential *CBC with Differential [facility] Work Phone: Start: 03-03-2016 End: 03-31-2016 *CMP Complete Metabolic Panel *CMP Complete Metabolic Panel [facility] Work Phone: Start: 03-03-2016 End: 01-25-2016 *MISC - Miscellaneous Lab Test #1 *MISC - Miscellaneous Lab Test #1 [facility] Work Phone: Start: 03-03-2016 End: 03-31-2016 Ferritin *Ferritin [facility] Work Phone: Start: 03-03-2016 End: 05-29-2016 Follow Up Appt 3 months Follow Up Appt 3 months [facility] Work Phone: Start: 03-03-2016 End: 05-29-2016 MMM MMM [facility] Work Phone: Start: 02-08-2016 End: 03-03-2016 Follow Up Appt 1 month Follow Up Appt 1 month [facility] Work Phone: Start: 02-08-2016 End: 03-03-2016 Pacer Clinic [facility] Work Phone: Start: 01-17-2016 End: 01-18-2016 *CBC with Differential *CBC with Differential [facility] Work Phone: Start: 01-17-2016 End: 01-18-2016 *CMP Complete Metabolic Panel *CMP Complete Metabolic Panel [facility] Work Phone: Start: 01-17-2016 End: 01-18-2016 Blood Culture Blood Culture [facility] Work Phone: Start: 01-10-2016 End: 01-11-2016 *CBC with Differential *CBC with Differential [facility] Work Phone: Start: 01-10-2016 End: 01-11-2016 C reactive protein (hsCRP) *CRP - C-Reative Protein [facility] Work Phone: Start: 01-10-2016 End: 01-11-2016 Erythrocyte sedimentation rate *Sedimentation Rate (ESR) [facility] Work Phone: Start: 12-28-2015 End: 12-28-2015 *CBC with Differential *CBC with Differential [facility] Work Phone: Start: 12-28-2015 End: 12-28-2015 C reactive protein (hsCRP) *CRP - C-Reative Protein [facility] Work Phone: Start: 12-28-2015 End: 12-28-2015 Erythrocyte sedimentation rate *Sedimentation Rate (ESR) [facility] Work Phone: Start: 12-28-2015 End: 12-28-2015 Oncology Referral Oncology Referral Rachid Malone DO, [facility], [address], [place], [place], [address] [facility] Work Phone: Start: 12-24-2015 End: 12-24-2015 AIR POLLUTION SPECIALIST AIR POLLUTION SPECIALIST [facility] Work Phone: Start: 12-24-2015 End: 12-24-2015 Follow Up Appt 2 months Follow Up Appt 2 months [facility] Work Phone: Start: 12-22-2015 End: 12-28-2015 *MISC - Miscellaneous Lab Test #1 *MISC - Miscellaneous Lab Test #1 [facility] Work Phone: Start: 12-22-2015 End: 12-22-2015 Blood occult peroxidase actv qual feces 1 deter [facility] Work Phone: Start: 12-22-2015 End: 12-27-2015 Ferritin *Ferritin [facility] Work Phone: Start: 12-22-2015 End: 12-27-2015 Iron *Iron [facility] Work Phone: Start: 12-22-2015 End: 12-27-2015 Iron binding capacity [Mass/volume] in Serum or Plasma *Iron Binding Capacity [facility] Work Phone: Start: 12-09-2015 End: 12-13-2015 Bacteria culture *CUB - Culture, Blood [facility] Work Phone: Start: 11-29-2015 End: 12-13-2015 *BMP *BMP [facility] Work Phone: Start: 11-29-2015 End: 12-13-2015 *CBC with Differential *CBC with Differential [facility] Work Phone: Start: 11-29-2015 End: 12-13-2015 Erythrocyte sedimentation rate *Sedimentation Rate (ESR) [facility] Work Phone: Start: 10-13-2015 End: 10-22-2015 *BMP *BMP [facility] Work Phone: Start: 10-13-2015 End: 10-22-2015 CBC W Auto Differential panel - Blood *CBC without Diff [facility] Work Phone: Start: 09-15-2015 End: 10-06-2015 *BMP *BMP [facility] Work Phone: Start: 09-15-2015 End: 10-06-2015 Cardiac Rehab Cardiac Rehab [facility] Work Phone: Start: 09-15-2015 End: 09-15-2015 Ecg routine ecg w/least 12 lds w/i&r EKG (In office) [facility] Work Phone: Start: 09-15-2015 End: 10-06-2015 Follow Up Appt 3 months Follow Up Appt 3 months [facility] Work Phone: Start: 09-15-2015 End: 09-15-2015 MMM MMM [facility] Work Phone: Start: 09-15-2015 End: 10-22-2015 Pacer Clinic Pacer Clinic [facility] Work Phone: Start: 08-02-2015 End: 10-06-2015 Magnesium *Magnesium [facility] Work Phone: Start: 07-02-2015 End: 10-06-2015 *Hepatic Function Panel *Hepatic Function Panel [facility] Work Phone: Start: 07-02-2015 End: 10-06-2015 Lipid panel [AGGREGATE] *Lipid Profile CC PCP [facility] Work Phone: Start: 06-07-2015 End: 06-07-2015 Follow Up Appt Other Follow Up Appt Other [facility] Work Phone: Start: 06-07-2015 End: 07-02-2015 Magnesium *Magnesium [facility] Work Phone: Start: 05-31-2015 End: 05-31-2015 Magnesium *Magnesium [facility] Work Phone: Start: 05-25-2015 End: 05-26-2015 *BMP *BMP [facility] Work Phone: Start: 05-25-2015 End: 05-26-2015 *CBC with Differential *CBC with Differential [facility] Work Phone: Start: 05-25-2015 End: 05-25-2015 24 hour holter monitor 24 hour holter monitor [facility] Work Phone: Start: 05-25-2015 End: 05-26-2015 BNP *Brain Natriuretic Peptide BNP [facility] Work Phone: Start: 05-25-2015 End: 05-25-2015 Ecg routine ecg w/least 12 lds w/i&r EKG (In office) [facility] Work Phone: Start: 05-25-2015 End: 05-25-2015 Follow Up Appt Other Follow Up Appt Other [facility] Work Phone: Start: 05-25-2015 End: 05-26-2015 Magnesium *Magnesium [facility] Work Phone: Start: 05-25-2015 End: 05-25-2015 MMM MMM [facility] Work Phone: Start: 05-25-2015 End: 05-25-2015 Nuclear stress test -Lexiscan Nuclear stress test -Lexiscan [facility] Work Phone: Start: 05-25-2015 End: 05-26-2015 Thyroid stimulating hormone (TSH) *TSH [facility] Work Phone: Start: 04-07-2015 End: 04-07-2015 Ecg routine ecg w/least 12 lds w/i&r EKG (In office) [facility] Work Phone: Start: 04-07-2015 End: 04-07-2015 Follow Up Appt 6 months Follow Up Appt 6 months [facility] Work Phone: Start: 04-07-2015 End: 04-07-2015 PFM PFM [facility] Work Phone: Start: 10-06-2014 End: 03-30-2015 Follow Up Appt 6 months Follow Up Appt 6 months [facility] Work Phone: Start: 10-06-2014 End: 03-30-2015 MMM MMM [facility] Work Phone: Start: 03-24-2014 End: 03-25-2014 48 hour holter monitor 48 hour holter monitor [facility] Work Phone: Start: 03-24-2014 End: 03-24-2014 AIR POLLUTION SPECIALIST AIR POLLUTION SPECIALIST [facility] Work Phone: Start: 03-24-2014 End: 03-24-2014 Follow Up Appt 6 months Follow Up Appt 6 months [facility] Work Phone: Start: 09-16-2013 End: 09-16-2013 Follow Up Appt 6 months Follow Up Appt 6 months [facility] Work Phone: Start: 09-16-2013 End: 09-16-2013 MMM MMM [facility] Work Phone: Start: 08-27-2013 End: 12-22-2013 *Hepatic Function Panel *Hepatic Function Panel [facility] Work Phone: Start: 08-27-2013 End: 12-22-2013 Lipid panel [AGGREGATE] *Lipid Profile CC PCP [facility] Work Phone: Start: 05-29-2013 End: 05-29-2013 24 hour holter monitor 24 hour holter monitor [facility] Work Phone: Start: 05-29-2013 End: 05-29-2013 AIR POLLUTION SPECIALIST AIR POLLUTION SPECIALIST [facility] Work Phone: Start: 05-29-2013 End: 05-29-2013 Follow Up Appt 3 months Follow Up Appt 3 months [facility] Work Phone: Start: 02-25-2013 End: 03-06-2013 *Hepatic Function Panel *Hepatic Function Panel [facility] Work Phone: Start: 02-25-2013 End: 02-25-2013 Echocardiography Echocardiogram (complete) [facility] Work Phone: Start: 02-25-2013 End: 02-25-2013 Follow Up Appt 3 months Follow Up Appt 3 months [facility] Work Phone: Start: 02-25-2013 End: 03-06-2013 Lipid panel [AGGREGATE] *Lipid Profile CC PCP [facility] Work Phone: Start: 02-25-2013 End: 02-25-2013 MMM MMM [facility] Work Phone: Start: 02-17-2013 End: 03-06-2013 *Hepatic Function Panel *Hepatic Function Panel [facility] Work Phone: Start: 02-17-2013 End: 03-06-2013 Lipid panel [AGGREGATE] *Lipid Profile CC PCP [facility] Work Phone: Start: 01-06-2013 End: 01-06-2013 BNP *Brain Natriuretic Peptide BNP [facility] Work Phone: Start: 01-06-2013 End: 01-06-2013 INR Coag RelTime (PPP) *PT/INR - Standing Order [facility] Work Phone: Start: 11-12-2012 End: 01-06-2013 INR Coag RelTime (PPP) *PT/INR - Standing Order [facility] Work Phone: Start: 10-22-2012 End: 01-06-2013 *BMP *BMP [facility] Work Phone: Start: 10-22-2012 End: 01-06-2013 *Hepatic Function Panel *Hepatic Function Panel [facility] Work Phone: Start: 10-22-2012 End: 10-22-2012 Ecg routine ecg w/least 12 lds w/i&r EKG (In office) [facility] Work Phone: Start: 10-22-2012 End: 10-22-2012 Follow Up Appt 4 months Follow Up Appt 4 months [facility] Work Phone: Start: 10-22-2012 End: 01-06-2013 Lipid panel [AGGREGATE] *Lipid Profile [facility] Work Phone: Start: 10-22-2012 End: 01-06-2013 Magnesium *Magnesium [facility] Work Phone: Start: 10-22-2012 End: 01-06-2013 Thyroid stimulating hormone (TSH) *TSH [facility] Work Phone: Start: 10-22-2012 End: 01-06-2013 Thyroxine (T4) *T4 (Total) [facility] Work Phone: Start: 09-05-2012 End: 09-12-2012 Thyroid stimulating hormone (TSH) *TSH [facility] Work Phone: Start: 09-05-2012 End: 09-12-2012 Thyroxine (T4) *T4 (Total) [facility] Work Phone: Start: 06-20-2012 End: 09-17-2012 *BMP *BMP [facility] Work Phone: Start: 06-20-2012 End: 09-17-2012 Magnesium *Magnesium [facility] Work Phone: Start: 06-17-2012 End: 03-10-2012 *Hepatic Function Panel *Hepatic Function Panel [facility] Work Phone: Start: 06-17-2012 End: 03-10-2012 Lipid panel [AGGREGATE] *Lipid Profile [facility] Work Phone: Start: 06-13-2012 End: 06-13-2012 *BMP *BMP [facility] Work Phone: Start: 06-13-2012 End: 06-13-2012 *Hepatic Function Panel *Hepatic Function Panel [facility] Work Phone: Start: 06-13-2012 End: 10-22-2012 Chest x-ray X-Ray, Chest, PA & Lateral [facility] Work Phone: Start: 06-13-2012 End: 06-13-2012 Follow Up Appt 4 months Follow Up Appt 4 months [facility] Work Phone: Start: 06-13-2012 End: 06-13-2012 Magnesium *Magnesium [facility] Work Phone: Start: 06-13-2012 End: 06-13-2012 Pulmonary Fuction Test - complete Pulmonary Fuction Test - complete [facility] Work Phone: Start: 06-13-2012 End: 06-13-2012 Thyroid stimulating hormone (TSH) *TSH [facility] Work Phone: Start: 06-13-2012 End: 06-13-2012 Thyroxine (T4) *T4 (Total) [facility] Work Phone: Start: 05-29-2012 End: 06-05-2012 *BMP *BMP [facility] Work Phone: Start: 05-29-2012 End: 06-05-2012 *Hepatic Function Panel *Hepatic Function Panel [facility] Work Phone: Start: 05-29-2012 End: 06-05-2012 Magnesium *Magnesium [facility] Work Phone: Start: 05-29-2012 End: 06-05-2012 Thyroid stimulating hormone (TSH) *TSH [facility] Work Phone: Start: 05-29-2012 End: 06-05-2012 Thyroxine (T4) *T4 (Total) [facility] Work Phone: Start: 03-12-2012 End: 03-12-2012 Follow Up Appt 3 months Follow Up Appt 3 months [facility] Work Phone: Start: 02-28-2012 End: 03-10-2012 *Hepatic Function Panel *Hepatic Function Panel [facility] Work Phone: Start: 02-28-2012 End: 03-10-2012 Thyroid stimulating hormone (TSH) *TSH [facility] Work Phone: Start: 02-28-2012 End: 03-10-2012 Thyroxine (T4) *T4 (Total) [facility] Work Phone: Start: 12-21-2011 End: 12-21-2011 Ecg routine ecg w/least 12 lds w/i&r EKG (In office) [facility] Work Phone: Start: 12-21-2011 End: 12-21-2011 Follow Up Appt 3 months Follow Up Appt 3 months [facility] Work Phone: Start: 11-29-2011 End: 10-09-2011 *Hepatic Function Panel *Hepatic Function Panel [facility] Work Phone: Start: 11-29-2011 End: 10-09-2011 Lipid panel [AGGREGATE] *Lipid Profile [facility] Work Phone: Start: 10-19-2011 End: 10-09-2011 Thyroid stimulating hormone (TSH) *TSH [facility] Work Phone: Start: 10-19-2011 End: 10-09-2011 Thyroxine (T4) *T4 (Total) [facility] Work Phone: Start: 09-14-2011 End: 09-14-2011 Ecg routine ecg w/least 12 lds w/i&r EKG (In office) [facility] Work Phone: Start: 09-14-2011 End: 09-14-2011 Follow Up Appt 3 months Follow Up Appt 3 months [facility] Work Phone: Start: 09-05-2011 End: 09-11-2011 *BMP *BMP [facility] Work Phone: Start: 09-05-2011 End: 09-11-2011 *Hepatic Function Panel *Hepatic Function Panel [facility] Work Phone: Start: 09-05-2011 End: 09-11-2011 Lipid panel [AGGREGATE] *Lipid Profile [facility] Work Phone: Start: 09-05-2011 End: 09-11-2011 Magnesium *Magnesium [facility] Work Phone: Start: 09-05-2011 End: 09-11-2011 Thyroid stimulating hormone (TSH) *TSH [facility] Work Phone: Start: 09-05-2011 End: 09-11-2011 Thyroxine (T4) *T4 (Total) [facility] Work Phone: Start: 08-01-2011 End: 08-01-2011 Ecg routine ecg w/least 12 lds w/i&r EKG (In office) [facility] Work Phone: Start: 08-01-2011 End: 08-01-2011 Follow Up Appt 6 weeks Follow Up Appt 6 weeks [facility] Work Phone: Start: 07-13-2011 End: 09-05-2011 Ecg routine ecg w/least 12 lds w/i&r EKG (In office) [facility] Work Phone: Start: 02-24-2011 Medicare Annual Well ness Visit Medicare Annual Wellness Visit [facility] Start: 1988 SHINGRIX VACCINE (1 of 2) ZEPEDA GRIX VACCINE (1 of 2) [facility] Start: 1956 Anxiety Screening Anxiety Screening [facility] Start: 1956 Depression Screening Depression Scre ening [facility] Start: 1956 Hepatitis B surface antibody level LDL CHOLESTEROL [facility] Start: 1948 3 comp foot exam completed DIABETIC FOOT EXAM [facility] Start: 1948 Diabetic foot examination Diabetic F oot Exam [facility] Start: 1948 Glaucoma screening Dilated Retinal E xam [facility] Start: 1948 Hepatitis B screening Urine Albumin:Creatinine Ratio [facility] Start: 1948 Hepatitis C antibody , confirmatory test DILATED RETINAL EXAM [facility] Cholesterol [Mass/vo lume] in Serum or Plasma [facility] Cholesterol in HDL [Mass/volume] in Serum or Plasma [facility] Cholesterol in LDL [Mass/volume] in Serum or Plasma [facility] Hemoglobin A1c/Hemoglobin.total in Blood [facility] Patient Education [facility] [employer] Work Phone: Patient referral [facility] Work Phone: End: 12-22-2022 Radiologic exam abdomen 3+ views XR ABDOMEN 3V KUB W/OBLIQUES Radiology Routine Renal calculi 1 Occurrences starting 11/22/2021 until 12/22/2022 [facility] Work Phone: Comment on above: 1 Occurrences starti ng 11/22/2021 until 12/22/2022 Triglycerides measurement [facility] US Carotid arteries [facility] Work Phone: End: 12-22-2022 US KIDNEY/BLADDER US KIDNEY/BLADDER Radiology Routine Renal calculi Renal cyst 1 Occurrences starting 11/22/2021 until 12/22/2022 [facility] Work Phone: Comment on above: 1 Occurrences starti ng 11/22/2021 until 12/22/2022 VLDL cholesterol measurement [facility] Immunizations Immunization Date Immunization Notes Care Provider Fa [facility] 06-25-2024 influenza, high dose seasonal, preservative-free Estrellita Soto MD Work Phone: [facility] 06-25-2024 influenza virus vaccine, unspecified formulation Estrellita Soto MD Work Phone: [facility] 08-15-2023 respiratory syncytia l virus (RSV) vaccine, bivalent (ABRYSVO) Estrellita Soto MD Work Phone: [facility] 05-25-2023 influenza, injectabl e, quadrivalent, contains preservative Estrellita Soto MD Work Phone: [facility] 05-25-2023 influenza virus vaccine, unspecified formulation Estrellita Soto MD Work Phone: [facility] 04-18-2023 tetanus toxoid, redu marilou diphtheria toxoid, and acellular pertussis vaccine, adsorbed Estrellita Soto MD Work Phone: [facility] 06-27-2022 influenza (aIIV4) vaccine, age 65+ yr, quadrivalent, PF (FLUAD QUAD) Estrellita Soto MD Work Phone: [facility] 05-26-2021 COVID-19 vaccine, ag e 12+ yr ([employer] - PURPLE TOP) Estrellita Soto MD Work Phone: [facility] Work Phone: 05-26-2021 influenza (aIIV4) vaccine, age 65+ yr, quadrivalent, PF (FLUAD QUAD) Estrellita Soto MD Work Phone: [facility] 05-26-2021 influenza, seasonal, injectable Estrellita Stoo MD Work Phone: [facility] Work Phone: 11-25-2020 COVID-19 vaccine, ag e 12+ yr (P[employer] - PURPLE TOP) [employer] Work Phone: [facility] Work Phone: 11-04-2020 COVID-19 vaccine, ag e 12+ yr (PFI[employer] - PURPLE TOP) [employer] Work Phone: [facility] Work Phone: 10-25-2020 COVID-19 vaccine, ag e 12+ yr (PFIZ[employer] - PURPLE TOP) [employer] Work Phone: [facility] Work Phone: 05-27-2020 influenza, high-dose , quadrivalent vaccine (FLUZONE HIGH DOSE QUADRIVALENT) Estrellita Soto MD Work Phone: [facility] Work Phone: 06-04-[address] Corin Hernandez Work Phone: [facility] 06-04-2019 influenza, injectabl e, quadrivalent, preservative free Estrellita Soto MD Work Phone: [facility] Work Phone: 06-04-2019 influenza, seasonal, injectable Estrellita Soto MD Work Phone: [facility] Work Phone: 06-04-2019 influenza, seasonal, injectable, preservative free [employer] Work Phone: [facility] Work Phone: 06-04-2019 zoster vaccine recombinant Estrellita Soto MD Work Phone: [facility] Work Phone: 05-27-2019 influenza, injectabl e, quadrivalent, preservative free [employer] Work Phone: [facility] Work Phone: 03-04-2019 zoster vaccine recombinant Estrellita Soto MD Work Phone: [facility] Work Phone: 08-13-2018 pneumococcal polysaccharide vaccine, 23 valent Estrellita Soto MD Work Phone: [facility] Work Phone: 05-21-2018 influenza nasal, unspecified formulation Estrellita Soto MD Work Phone: [facility] Work Phone: 05-21-2018 influenza virus vaccine, unspecified formulation Estrellita Soto MD Work Phone: [facility] 05-21-2018 influenza, injectabl e, quadrivalent, contains preservative [employer] Work Phone: [facility] Work Phone: 04-05-2018 tetanus toxoid, redu marilou diphtheria toxoid, and acellular pertussis vaccine, adsorbed [employer] Work Phone: [facility] Work Phone: 04-25-[address] Corin Hernandez Work Phone: [facility] 04-25-2017 influenza, seasonal, injectable [employer] Work Phone: [facility] Work Phone: 04-25-2017 influenza, seasonal, injectable, preservative free [employer] Work Phone: [facility] Work Phone: 04-17-2017 influenza, injectabl e, quadrivalent, contains preservative [employer] Work Phone: [facility] Work Phone: 05-19-2016 influenza, high dose seasonal, preservative-free [employer] Work Phone: [facility] Work Phone: 07-20-2015 pneumococcal conjuga te vaccine, 13 valent [employer] Work Phone: [facility] Work Phone: 06-27-2015 pneumococcal conjuga te vaccine, 13 valent Estrellita Soto MD Work Phone: [facility] Work Phone: 05-27-[address] Corin Hernandez Work Phone: [facility] 05-27-2015 influenza, seasonal, injectable Estrellita Soto MD Work Phone: [facility] Work Phone: 05-27-2015 influenza, seasonal, injectable, preservative free [employer] Work Phone: [facility] Work Phone: 05-26-2015 influenza, high dose seasonal, preservative-free [employer] Work Phone: [facility] Work Phone: 05-27-2014 influenza nasal, unspecified formulation Estrellita Soto MD Work Phone: [facility] Work Phone: 05-27-2014 influenza virus vaccine, unspecified formulation Estrellita Soto MD Work Phone: [facility] 07-16-2013 diphtheria, tetanus toxoids and acellular pertussis vaccine, unspecified formulation Estrellita Soto MD Work Phone: [facility] Work Phone: 06-27-2013 influenza nasal, unspecified formulation Estrellita Soto MD Work Phone: [facility] Work Phone: 06-27-2013 influenza virus vaccine, unspecified formulation Estrellita Soto MD Work Phone: [facility] 05-27-[address] Corin Hernandez Work Phone: [facility] 05-27-2013 influenza, seasonal, injectable Estrellita Soto MD Work Phone: [facility] Work Phone: 05-27-2013 influenza, seasonal, injectable, preservative free [employer] Work Phone: [facility] Work Phone: 06-05-2012 influenza nasal, unspecified formulation Estrellita Soto MD Work Phone: [facility] Work Phone: 06-05-2012 influenza virus vaccine, unspecified formulation Estrellita Soto MD Work Phone: [facility] 05-24-2011 influenza nasal, unspecified formulation Estrellita Soto MD Work Phone: [facility] Work Phone: 05-24-2011 influenza virus vaccine, unspecified formulation Estrellita Soto MD Work Phone: [facility] 05-31-2010 influenza nasal, unspecified formulation Estrellita Soto MD Work Phone: [facility] Work Phone: 05-31-2010 influenza virus vaccine, unspecified formulation Estrellita Soto MD Work Phone: [facility] 08-27-2009 pneumococcal polysaccharide vaccine, 23 valent [employer] Work Phone: [facility] Work Phone: 08-27-[address] Corin Hernandez Work Phone: [facility] Work Phone: 08-27-2009 pneumococcal vaccine , unspecified formulation Dr. Corin Hernandez Work Phone: [facility] 05-28-2009 influenza nasal, unspecified formulation Estrellita Soto MD Work Phone: [facility] Work Phone: 05-28-2009 influenza virus vaccine, unspecified formulation Estrellita Soto MD Work Phone: [facility] 07-06-2008 pneumococcal polysaccharide vaccine, 23 valent Estrellita Soto MD Work Phone: [facility] Work Phone: No information available. Autumn Frost LPN [facility] Work Phone: Payers Date Payer Category Payer Self-pay [id number] 2011 Medicare MEDICARE MEDICAR E A AND B [id number] 2011-Present [phone] [address] [address] [place] [address] Medicare [id number] 2011 Medicare [id number] 2005 Private Health Insurance KATHIA CHAVARRIA PPO [id number] 2005-Present [phone] [address] [place] [address] PPO [id number] 2005 Private Health Insurance [id number] 2005 Private Health Insurance [id number] 2003 Medicare [id number] 1938 Unknown [id number] 1938 Unknown [id number] Medicare [id number] Unknown [id number] Unknown [id number] Unknown [id number] Unknown [id number] Unknown [id number] Unknown [id number] Unknown [id number] Unknown [id number] Unknown [id number] Unknown [id number] Unknown [id number] Unknown [id number] Unknown [id number] Unknown [id number] .462 Unknown [id number] .462 Unknown [id number] .462 Unknown [id number] .462 Unknown [id number] .462 Unknown [id number] .462 Unknown [id number] .462 Unknown [id number] .462 Unknown [id number] .462 Unknown [id number] Unknown [id number] Unknown [id number] Unknown [id number] Social History Date Type Detail Facility Start: 01-01-2022 End: 12-25-2023 Assertion Unknown if ever smoked [facility] Work Phone: Start: 03-26-2023 End: 11-10-2024 Tobacco smoking status NHIS Ex-smoker [facility] Work Phone: Start: 10-10-1949 End: 10-10-1970 History of tobacco use Current smoker [facility] Start: [birth year]-10-1949 End: 10-10-1970 History of tobacco use Cigarette Smoker [facility] Start: 08-29-2021 End: 04-08-2025 Alcohol intake Current non-drinker of alcohol (finding) [facility] Start: 02-08-2016 End: 03-26-2023 Tobacco Comment quit 40 years ago [facility] Start: 1940 Sex Assigned At Male [facility] Start: 10-01-2021 End: 03-17-2022 Exposure to SARS-CoV-2 (event) Not sure [facility] Work Phone: Start: 12-27-2020 None [facility] Start: 11-24-2020 Spouse/ Signif icant Other [facility] Start: 12-27-2020 Non-smoker [facility] Work Phone: Start: 04-04-2022 Cigarettes [facility] Start: 09-21-2022 End: 03-26-2023 Cigarettes smoked current (pack per day) - Reported 1 [facility] Start: 03-26-2023 Tobacco use and exposure Smokeless tobacco non-user [facility] Start: 09-21-2022 End: 03-27-2024 Tobacco use panel [facility] Start: 07-28-2012 National Score (1-100), lower number is lower risk 66 [facility] Start: 03-20-2022 Gender identity Identifies as male gender (finding) [facility] Start: 11-07-2024 End: 12-18-2024 Sex Male (finding) [facility] Medical Equipment Procedure Code Equipment Code Equipment Origin al Text Equipment Identifier Dates Endarterectomy, carotid PATCH,VASC .8CM X 8CM FDA Start: 04-06-2021 Endarterectomy, carotid SUTURE,LIGA CLIP MED LT200 FDA Start: 04-06-2021 Endarterectomy, carotid SUTURE,LIGA CLIP MED LT200 FDA Start: 04-06-2021 Endarterectomy, carotid SUTURE,LIGA CLIP SM LT-100 FDA Start: 04-06-2021 Endarterectomy, carotid SUTURE,LIGA CLIP SM LT-100 FDA Start: 04-06-2021 Endarterectomy, carotid SUTURE,LIGA CLIP SM LT-100 FDA Start: 04-06-2021 Endarterectomy, carotid PATCH,VASC .8CM X 8CM FDA Start: 04-06-2021 Endarterectomy, carotid SUTURE,LIGA CLIP MED LT200 FDA Start: 04-06-2021 Endarterectomy, carotid SUTURE,LIGA CLIP MED LT200 FDA Start: 04-06-2021 Endarterectomy, carotid SUTURE,LIGA CLIP SM LT-100 FDA Start: 04-06-2021 Endarterectomy, carotid SUTURE,LIGA CLIP SM LT-100 FDA Start: 04-06-2021 Endarterectomy, carotid SUTURE,LIGA CLIP SM LT-100 FDA Start: 04-06-2021 Endarterectomy, carotid PATCH,VASC .8CM X 8CM FDA Start: 04-06-2021 Endarterectomy, carotid SUTURE,LIGA CLIP MED LT200 FDA Start: 04-06-2021 Endarterectomy, carotid SUTURE,LIGA CLIP MED LT200 FDA Start: 04-06-2021 Endarterectomy, carotid SUTURE,LIGA CLIP SM LT-100 FDA Start: 04-06-2021 Endarterectomy, carotid SUTURE,LIGA CLIP SM LT-100 FDA Start: 04-06-2021 Endarterectomy, carotid SUTURE,LIGA CLIP SM LT-100 FDA Start: 04-06-2021 Endarterectomy, carotid PATCH,VASC .8CM X 8CM FDA Start: 04-06-2021 Endarterectomy, carotid SUTURE,LIGA CLIP MED LT200 FDA Start: 04-06-2021 Endarterectomy, carotid SUTURE,LIGA CLIP MED LT200 FDA Start: 04-06-2021 Endarterectomy, carotid SUTURE,LIGA CLIP SM LT-100 FDA Start: 04-06-2021 Endarterectomy, carotid SUTURE,LIGA CLIP SM LT-100 FDA Start: 04-06-2021 Endarterectomy, carotid SUTURE,LIGA CLIP SM LT-100 FDA Start: 04-06-2021 Endarterectomy, carotid PATCH,VASC .8CM X 8CM FDA Start: 04-06-2021 Endarterectomy, carotid SUTURE,LIGA CLIP MED LT200 FDA Start: 04-06-2021 Endarterectomy, carotid SUTURE,LIGA CLIP MED LT200 FDA Start: 04-06-2021 Endarterectomy, carotid SUTURE,LIGA CLIP SM LT-100 FDA Start: 04-06-2021 Endarterectomy, carotid SUTURE,LIGA CLIP SM LT-100 FDA Start: 04-06-2021 Endarterectomy, carotid SUTURE,LIGA CLIP SM LT-100 FDA Start: 04-06-2021 Endarterectomy, carotid PATCH,VASC .8CM X 8CM FDA Start: 04-06-2021 Endarterectomy, carotid SUTURE,LIGA CLIP MED LT200 FDA Start: 04-06-2021 Endarterectomy, carotid SUTURE,LIGA CLIP MED LT200 FDA Start: 04-06-2021 Endarterectomy, carotid SUTURE,LIGA CLIP SM LT-100 FDA Start: 04-06-2021 Endarterectomy, carotid SUTURE,LIGA CLIP SM LT-100 FDA Start: 04-06-2021 Endarterectomy, carotid SUTURE,LIGA CLIP SM LT-100 FDA Start: 04-06-2021 Endarterectomy, carotid PATCH,VASC .8CM X 8CM FDA Start: 04-06-2021 Endarterectomy, carotid SUTURE,LIGA CLIP MED LT200 FDA Start: 04-06-2021 Endarterectomy, carotid SUTURE,LIGA CLIP MED LT200 FDA Start: 04-06-2021 Endarterectomy, carotid SUTURE,LIGA CLIP SM LT-100 FDA Start: 04-06-2021 Endarterectomy, carotid SUTURE,LIGA CLIP SM LT-100 FDA Start: 04-06-2021 Endarterectomy, carotid SUTURE,LIGA CLIP SM LT-100 FDA Start: 04-06-2021 Endarterectomy, carotid PATCH,VASC .8CM X 8CM FDA Start: 04-06-2021 Endarterectomy, carotid SUTURE,LIGA CLIP MED LT200 FDA Start: 04-06-2021 Endarterectomy, carotid SUTURE,LIGA CLIP MED LT200 FDA Start: 04-06-2021 Endarterectomy, carotid SUTURE,LIGA CLIP SM LT-100 FDA Start: 04-06-2021 Endarterectomy, carotid SUTURE,LIGA CLIP SM LT-100 FDA Start: 04-06-2021 Endarterectomy, carotid SUTURE,LIGA CLIP SM LT-100 FDA Start: 04-06-2021 Endarterectomy, carotid PATCH,VASC .8CM X 8CM FDA Start: 04-06-2021 Endarterectomy, carotid SUTURE,LIGA CLIP MED LT200 FDA Start: 04-06-2021 Endarterectomy, carotid SUTURE,LIGA CLIP MED LT200 FDA Start: 04-06-2021 Endarterectomy, carotid SUTURE,LIGA CLIP SM LT-100 FDA Start: 04-06-2021 Endarterectomy, carotid SUTURE,LIGA CLIP SM LT-100 FDA Start: 04-06-2021 Endarterectomy, carotid SUTURE,LIGA CLIP SM LT-100 FDA Start: 04-06-2021 Endarterectomy, carotid PATCH,VASC .8CM X 8CM FDA Start: 04-06-2021 Endarterectomy, carotid SUTURE,LIGA CLIP MED LT200 FDA Start: 04-06-2021 Endarterectomy, carotid SUTURE,LIGA CLIP MED LT200 FDA Start: 04-06-2021 Endarterectomy, carotid SUTURE,LIGA CLIP SM LT-100 FDA Start: 04-06-2021 Endarterectomy, carotid SUTURE,LIGA CLIP SM LT-100 FDA Start: 04-06-2021 Endarterectomy, carotid SUTURE,LIGA CLIP SM LT-100 FDA Start: 04-06-2021 Endarterectomy, carotid PATCH,VASC .8CM X 8CM FDA Start: 04-06-2021 Endarterectomy, carotid SUTURE,LIGA CLIP MED LT200 FDA Start: 04-06-2021 Endarterectomy, carotid SUTURE,LIGA CLIP MED LT200 FDA Start: 04-06-2021 Endarterectomy, carotid SUTURE,LIGA CLIP SM LT-100 FDA Start: 04-06-2021 Endarterectomy, carotid SUTURE,LIGA CLIP SM LT-100 FDA Start: 04-06-2021 Endarterectomy, carotid SUTURE,LIGA CLIP SM LT-100 FDA Start: 04-06-2021 Endarterectomy, carotid PATCH,VASC .8CM X 8CM FDA Start: 04-06-2021 Endarterectomy, carotid SUTURE,LIGA CLIP MED LT200 FDA Start: 04-06-2021 Endarterectomy, carotid SUTURE,LIGA CLIP MED LT200 FDA Start: 04-06-2021 Endarterectomy, carotid SUTURE,LIGA CLIP SM LT-100 FDA Start: 04-06-2021 Endarterectomy, carotid SUTURE,LIGA CLIP SM LT-100 FDA Start: 04-06-2021 Endarterectomy, carotid SUTURE,LIGA CLIP SM LT-100 FDA Start: 04-06-2021 Endarterectomy, carotid PATCH,VASC .8CM X 8CM FDA Start: 04-06-2021 Endarterectomy, carotid SUTURE,LIGA CLIP MED LT200 FDA Start: 04-06-2021 Endarterectomy, carotid SUTURE,LIGA CLIP MED LT200 FDA Start: 04-06-2021 Endarterectomy, carotid SUTURE,LIGA CLIP SM LT-100 FDA Start: 04-06-2021 Endarterectomy, carotid SUTURE,LIGA CLIP SM LT-100 FDA Start: 04-06-2021 Endarterectomy, carotid SUTURE,LIGA CLIP SM LT-100 FDA Start: 04-06-2021 Endarterectomy, carotid PATCH,VASC .8CM X 8CM FDA Start: 04-06-2021 Endarterectomy, carotid SUTURE,LIGA CLIP MED LT200 FDA Start: 04-06-2021 Endarterectomy, carotid SUTURE,LIGA CLIP MED LT200 FDA Start: 04-06-2021 Endarterectomy, carotid SUTURE,LIGA CLIP SM LT-100 FDA Start: 04-06-2021 Endarterectomy, carotid SUTURE,LIGA CLIP SM LT-100 FDA Start: 04-06-2021 Endarterectomy, carotid SUTURE,LIGA CLIP SM LT-100 FDA Start: 04-06-2021 Endarterectomy, carotid PATCH,VASC .8CM X 8CM FDA Start: 04-06-2021 Endarterectomy, carotid SUTURE,LIGA CLIP MED LT200 FDA Start: 04-06-2021 Endarterectomy, carotid SUTURE,LIGA CLIP MED LT200 FDA Start: 04-06-2021 Endarterectomy, carotid SUTURE,LIGA CLIP SM LT-100 FDA Start: 04-06-2021 Endarterectomy, carotid SUTURE,LIGA CLIP SM LT-100 FDA Start: 04-06-2021 Endarterectomy, carotid SUTURE,LIGA CLIP SM LT-100 FDA Start: 04-06-2021 Endarterectomy, carotid PATCH,VASC .8CM X 8CM FDA Start: 04-06-2021 Endarterectomy, carotid SUTURE,LIGA CLIP MED LT200 FDA Start: 04-06-2021 Endarterectomy, carotid SUTURE,LIGA CLIP MED LT200 FDA Start: 04-06-2021 Endarterectomy, carotid SUTURE,LIGA CLIP SM LT-100 FDA Start: 04-06-2021 Endarterectomy, carotid SUTURE,LIGA CLIP SM LT-100 FDA Start: 04-06-2021 Endarterectomy, carotid SUTURE,LIGA CLIP SM LT-100 FDA Start: 04-06-2021 Endarterectomy, carotid PATCH,VASC .8CM X 8CM FDA Start: 04-06-2021 Endarterectomy, carotid SUTURE,LIGA CLIP MED LT200 FDA Start: 04-06-2021 Endarterectomy, carotid SUTURE,LIGA CLIP MED LT200 FDA Start: 04-06-2021 Endarterectomy, carotid SUTURE,LIGA CLIP SM LT-100 FDA Start: 04-06-2021 Endarterectomy, carotid SUTURE,LIGA CLIP SM LT-100 FDA Start: 04-06-2021 Endarterectomy, carotid SUTURE,LIGA CLIP SM LT-100 FDA Start: 04-06-2021 Endarterectomy, carotid PATCH,VASC .8CM X 8CM FDA Start: 04-06-2021 Endarterectomy, carotid SUTURE,LIGA CLIP MED LT200 FDA Start: 04-06-2021 Endarterectomy, carotid SUTURE,LIGA CLIP MED LT200 FDA Start: 04-06-2021 Endarterectomy, carotid SUTURE,LIGA CLIP SM LT-100 FDA Start: 04-06-2021 Endarterectomy, carotid SUTURE,LIGA CLIP SM LT-100 FDA Start: 04-06-2021 Endarterectomy, carotid SUTURE,LIGA CLIP SM LT-100 FDA Start: 04-06-2021 Endarterectomy, carotid PATCH,VASC .8CM X 8CM FDA Start: 04-06-2021 Endarterectomy, carotid SUTURE,LIGA CLIP MED LT200 FDA Start: 04-06-2021 Endarterectomy, carotid SUTURE,LIGA CLIP MED LT200 FDA Start: 04-06-2021 Endarterectomy, carotid SUTURE,LIGA CLIP SM LT-100 FDA Start: 04-06-2021 Endarterectomy, carotid SUTURE,LIGA CLIP SM LT-100 FDA Start: 04-06-2021 Endarterectomy, carotid SUTURE,LIGA CLIP SM LT-100 FDA Start: 04-06-2021 Endarterectomy, carotid PATCH,VASC .8CM X 8CM FDA Start: 04-06-2021 Endarterectomy, carotid SUTURE,LIGA CLIP MED LT200 FDA Start: 04-06-2021 Endarterectomy, carotid SUTURE,LIGA CLIP MED LT200 FDA Start: 04-06-2021 Endarterectomy, carotid SUTURE,LIGA CLIP SM LT-100 FDA Start: 04-06-2021 Endarterectomy, carotid SUTURE,LIGA CLIP SM LT-100 FDA Start: 04-06-2021 Endarterectomy, carotid SUTURE,LIGA CLIP SM LT-100 FDA Start: 04-06-2021 Endarterectomy, carotid PATCH,VASC .8CM X 8CM FDA Start: 04-06-2021 Endarterectomy, carotid SUTURE,LIGA CLIP MED LT200 FDA Start: 04-06-2021 Endarterectomy, carotid SUTURE,LIGA CLIP MED LT200 FDA Start: 04-06-2021 Endarterectomy, carotid SUTURE,LIGA CLIP SM LT-100 FDA Start: 04-06-2021 Endarterectomy, carotid SUTURE,LIGA CLIP SM LT-100 FDA Start: 04-06-2021 Endarterectomy, carotid SUTURE,LIGA CLIP SM LT-100 FDA Start: 04-06-2021 Endarterectomy, carotid PATCH,VASC .8CM X 8CM FDA Start: 04-06-2021 Endarterectomy, carotid SUTURE,LIGA CLIP MED LT200 FDA Start: 04-06-2021 Endarterectomy, carotid SUTURE,LIGA CLIP MED LT200 FDA Start: 04-06-2021 Endarterectomy, carotid SUTURE,LIGA CLIP SM LT-100 FDA Start: 04-06-2021 Endarterectomy, carotid SUTURE,LIGA CLIP SM LT-100 FDA Start: 04-06-2021 Endarterectomy, carotid SUTURE,LIGA CLIP SM LT-100 FDA Start: 04-06-2021 Endarterectomy, carotid PATCH,VASC .8CM X 8CM FDA Start: 04-06-2021 Endarterectomy, carotid SUTURE,LIGA CLIP MED LT200 FDA Start: 04-06-2021 Endarterectomy, carotid SUTURE,LIGA CLIP MED LT200 FDA Start: 04-06-2021 Endarterectomy, carotid SUTURE,LIGA CLIP SM LT-100 FDA Start: 04-06-2021 Endarterectomy, carotid SUTURE,LIGA CLIP SM LT-100 FDA Start: 04-06-2021 Endarterectomy, carotid SUTURE,LIGA CLIP SM LT-100 FDA Start: 04-06-2021 Endarterectomy, carotid PATCH,VASC .8CM X 8CM FDA Start: 04-06-2021 Endarterectomy, carotid SUTURE,LIGA CLIP MED LT200 FDA Start: 04-06-2021 Endarterectomy, carotid SUTURE,LIGA CLIP MED LT200 FDA Start: 04-06-2021 Endarterectomy, carotid SUTURE,LIGA CLIP SM LT-100 FDA Start: 04-06-2021 Endarterectomy, carotid SUTURE,LIGA CLIP SM LT-100 FDA Start: 04-06-2021 Endarterectomy, carotid SUTURE,LIGA CLIP SM LT-100 FDA Start: 04-06-2021 Endarterectomy, carotid PATCH,VASC .8CM X 8CM FDA Start: 04-06-2021 Endarterectomy, carotid SUTURE,LIGA CLIP MED LT200 FDA Start: 04-06-2021 Endarterectomy, carotid SUTURE,LIGA CLIP MED LT200 FDA Start: 04-06-2021 Endarterectomy, carotid SUTURE,LIGA CLIP SM LT-100 FDA Start: 04-06-2021 Endarterectomy, carotid SUTURE,LIGA CLIP SM LT-100 FDA Start: 04-06-2021 Endarterectomy, carotid SUTURE,LIGA CLIP SM LT-100 FDA Start: 04-06-2021 Endarterectomy, carotid PATCH,VASC .8CM X 8CM FDA Start: 04-06-2021 Endarterectomy, carotid SUTURE,LIGA CLIP MED LT200 FDA Start: 04-06-2021 Endarterectomy, carotid SUTURE,LIGA CLIP MED LT200 FDA Start: 04-06-2021 Endarterectomy, carotid SUTURE,LIGA CLIP SM LT-100 FDA Start: 04-06-2021 Endarterectomy, carotid SUTURE,LIGA CLIP SM LT-100 FDA Start: 04-06-2021 Endarterectomy, carotid SUTURE,LIGA CLIP SM LT-100 FDA Start: 04-06-2021 Endarterectomy, carotid PATCH,VASC .8CM X 8CM FDA Start: 04-06-2021 Endarterectomy, carotid SUTURE,LIGA CLIP MED LT200 FDA Start: 04-06-2021 Endarterectomy, carotid SUTURE,LIGA CLIP MED LT200 FDA Start: 04-06-2021 Endarterectomy, carotid SUTURE,LIGA CLIP SM LT-100 FDA Start: 04-06-2021 Endarterectomy, carotid SUTURE,LIGA CLIP SM LT-100 FDA Start: 04-06-2021 Endarterectomy, carotid SUTURE,LIGA CLIP SM LT-100 FDA Start: 04-06-2021 Endarterectomy, carotid PATCH,VASC .8CM X 8CM FDA Start: 04-06-2021 Endarterectomy, carotid SUTURE,LIGA CLIP MED LT200 FDA Start: 04-06-2021 Endarterectomy, carotid SUTURE,LIGA CLIP MED LT200 FDA Start: 04-06-2021 Endarterectomy, carotid SUTURE,LIGA CLIP SM LT-100 FDA Start: 04-06-2021 Endarterectomy, carotid SUTURE,LIGA CLIP SM LT-100 FDA Start: 04-06-2021 Endarterectomy, carotid SUTURE,LIGA CLIP SM LT-100 FDA Start: 04-06-2021 Endarterectomy, carotid PATCH,VASC .8CM X 8CM FDA Start: 04-06-2021 Endarterectomy, carotid SUTURE,LIGA CLIP MED LT200 FDA Start: 04-06-2021 Endarterectomy, carotid SUTURE,LIGA CLIP MED LT200 FDA Start: 04-06-2021 Endarterectomy, carotid SUTURE,LIGA CLIP SM LT-100 FDA Start: 04-06-2021 Endarterectomy, carotid SUTURE,LIGA CLIP SM LT-100 FDA Start: 04-06-2021 Endarterectomy, carotid SUTURE,LIGA CLIP SM LT-100 FDA Start: 04-06-2021 Endarterectomy, carotid PATCH,VASC .8CM X 8CM FDA Start: 04-06-2021 Endarterectomy, carotid SUTURE,LIGA CLIP MED LT200 FDA Start: 04-06-2021 Endarterectomy, carotid SUTURE,LIGA CLIP MED LT200 FDA Start: 04-06-2021 Endarterectomy, carotid SUTURE,LIGA CLIP SM LT-100 FDA Start: 04-06-2021 Endarterectomy, carotid SUTURE,LIGA CLIP SM LT-100 FDA Start: 04-06-2021 Endarterectomy, carotid SUTURE,LIGA CLIP SM LT-100 FDA Start: 04-06-2021 Endarterectomy, carotid PATCH,VASC .8CM X 8CM FDA Start: 04-06-2021 Endarterectomy, carotid SUTURE,LIGA CLIP MED LT200 FDA Start: 04-06-2021 Endarterectomy, carotid SUTURE,LIGA CLIP MED LT200 FDA Start: 04-06-2021 Endarterectomy, carotid SUTURE,LIGA CLIP SM LT-100 FDA Start: 04-06-2021 Endarterectomy, carotid SUTURE,LIGA CLIP SM LT-100 FDA Start: 04-06-2021 Endarterectomy, carotid SUTURE,LIGA CLIP SM LT-100 FDA Start: 04-06-2021 Endarterectomy, carotid PATCH,VASC .8CM X 8CM FDA Start: 04-06-2021 Endarterectomy, carotid SUTURE,LIGA CLIP MED LT200 FDA Start: 04-06-2021 Endarterectomy, carotid SUTURE,LIGA CLIP MED LT200 FDA Start: 04-06-2021 Endarterectomy, carotid SUTURE,LIGA CLIP SM LT-100 FDA Start: 04-06-2021 Endarterectomy, carotid SUTURE,LIGA CLIP SM LT-100 FDA Start: 04-06-2021 Endarterectomy, carotid SUTURE,LIGA CLIP SM LT-100 FDA Start: 04-06-2021 Endarterectomy, carotid PATCH,VASC .8CM X 8CM FDA Start: 04-06-2021 Endarterectomy, carotid SUTURE,LIGA CLIP MED LT200 FDA Start: 04-06-2021 Endarterectomy, carotid SUTURE,LIGA CLIP MED LT200 FDA Start: 04-06-2021 Endarterectomy, carotid SUTURE,LIGA CLIP SM LT-100 FDA Start: 04-06-2021 Endarterectomy, carotid SUTURE,LIGA CLIP SM LT-100 FDA Start: 04-06-2021 Endarterectomy, carotid SUTURE,LIGA CLIP SM LT-100 FDA Start: 04-06-2021 Endarterectomy, carotid PATCH,VASC .8CM X 8CM FDA Start: 04-06-2021 Endarterectomy, carotid SUTURE,LIGA CLIP MED LT200 FDA Start: 04-06-2021 Endarterectomy, carotid SUTURE,LIGA CLIP MED LT200 FDA Start: 04-06-2021 Endarterectomy, carotid SUTURE,LIGA CLIP SM LT-100 FDA Start: 04-06-2021 Endarterectomy, carotid SUTURE,LIGA CLIP SM LT-100 FDA Start: 04-06-2021 Endarterectomy, carotid SUTURE,LIGA CLIP SM LT-100 FDA Start: 04-06-2021 Endarterectomy, carotid PATCH,VASC .8CM X 8CM FDA Start: 04-06-2021 Endarterectomy, carotid SUTURE,LIGA CLIP MED LT200 FDA Start: 04-06-2021 Endarterectomy, carotid SUTURE,LIGA CLIP MED LT200 FDA Start: 04-06-2021 Endarterectomy, carotid SUTURE,LIGA CLIP SM LT-100 FDA Start: 04-06-2021 Endarterectomy, carotid SUTURE,LIGA CLIP SM LT-100 FDA Start: 04-06-2021 Endarterectomy, carotid SUTURE,LIGA CLIP SM LT-100 FDA Start: 04-06-2021 Endarterectomy, carotid PATCH,VASC .8CM X 8CM FDA Start: 04-06-2021 Endarterectomy, carotid SUTURE,LIGA CLIP MED LT200 FDA Start: 04-06-2021 Endarterectomy, carotid SUTURE,LIGA CLIP MED LT200 FDA Start: 04-06-2021 Endarterectomy, carotid SUTURE,LIGA CLIP SM LT-100 FDA Start: 04-06-2021 Endarterectomy, carotid SUTURE,LIGA CLIP SM LT-100 FDA Start: 08-11-2021 Endarterectomy, carotid SUTURE,LIGA CLIP SM LT-100 FDA Start: 04-06-2021 Endarterectomy, carotid PATCH,VASC .8CM X 8CM FDA Start: 04-06-2021 Endarterectomy, carotid SUTURE,LIGA CLIP MED LT200 FDA Start: 04-06-2021 Endarterectomy, carotid SUTURE,LIGA CLIP MED LT200 FDA Start: 04-06-2021 Endarterectomy, carotid SUTURE,LIGA CLIP SM LT-100 FDA Start: 04-06-2021 Endarterectomy, carotid SUTURE,LIGA CLIP SM LT-100 FDA Start: 04-06-2021 Endarterectomy, carotid SUTURE,LIGA CLIP SM LT-100 FDA Start: 04-06-2021 Endarterectomy, carotid PATCH,VASC .8CM X 8CM FDA Start: 04-06-2021 Endarterectomy, carotid SUTURE,LIGA CLIP MED LT200 FDA Start: 04-06-2021 Endarterectomy, carotid SUTURE,LIGA CLIP MED LT200 FDA Start: 04-06-2021 Endarterectomy, carotid SUTURE,LIGA CLIP SM LT-100 FDA Start: 04-06-2021 Endarterectomy, carotid SUTURE,LIGA CLIP SM LT-100 FDA Start: 04-06-2021 Endarterectomy, carotid SUTURE,LIGA CLIP SM LT-100 FDA Start: 04-06-2021 Endarterectomy, carotid PATCH,VASC .8CM X 8CM FDA Start: 04-06-2021 Endarterectomy, carotid SUTURE,LIGA CLIP MED LT200 FDA Start: 04-06-2021 Endarterectomy, carotid SUTURE,LIGA CLIP MED LT200 FDA Start: 04-06-2021 Endarterectomy, carotid SUTURE,LIGA CLIP SM LT-100 FDA Start: 04-06-2021 Endarterectomy, carotid SUTURE,LIGA CLIP SM LT-100 FDA Start: 04-06-2021 Endarterectomy, carotid SUTURE,LIGA CLIP SM LT-100 FDA Start: 04-06-2021 Endarterectomy, carotid PATCH,VASC .8CM X 8CM FDA Start: 04-06-2021 Endarterectomy, carotid SUTURE,LIGA CLIP MED LT200 FDA Start: 04-06-2021 Endarterectomy, carotid SUTURE,LIGA CLIP MED LT200 FDA Start: 04-06-2021 Endarterectomy, carotid SUTURE,LIGA CLIP SM LT-100 FDA Start: 04-06-2021 Endarterectomy, carotid SUTURE,LIGA CLIP SM LT-100 FDA Start: 04-06-2021 Endarterectomy, carotid SUTURE,LIGA CLIP SM LT-100 FDA Start: 04-06-2021 Endarterectomy, carotid PATCH,VASC .8CM X 8CM FDA Start: 04-06-2021 Endarterectomy, carotid SUTURE,LIGA CLIP MED LT200 FDA Start: 04-06-2021 Endarterectomy, carotid SUTURE,LIGA CLIP MED LT200 FDA Start: 04-06-2021 Endarterectomy, carotid SUTURE,LIGA CLIP SM LT-100 FDA Start: 04-06-2021 Endarterectomy, carotid SUTURE,LIGA CLIP SM LT-100 FDA Start: 04-06-2021 Endarterectomy, carotid SUTURE,LIGA CLIP SM LT-100 FDA Start: 04-06-2021 [employer] [employer] ICD A209 Emblem FDA Start: 01-31-2016 [employer] [employer] ICD A209 Emblem FDA Start: 01-31-2016 [place] [employer] ICD A209 Emblem FDA Start: 01-31-2016 [place] [employer] ICD A209 Emblem FDA Start: 01-31-2016 [place] [employer] ICD A209 Emblem FDA Start: 01-31-2016 [place] [employer] ICD A209 Emblem FDA Start: 01-31-2016 [place] [employer] ICD A209 Emblem FDA Start: 01-31-2016 [place] [employer] ICD A209 Emblem FDA Start: 01-31-2016 [place] [employer] ICD A209 Emblem FDA Start: 01-31-2016 [place] [employer] ICD A209 Emblem FDA Start: 01-31-2016 [place] [employer] ICD A209 Emblem FDA Start: 01-31-2016 [place] [employer] ICD A209 Emblem FDA Start: 01-31-2016 [place] [employer] ICD A209 Emblem FDA Start: 01-31-2016 [place] [employer] ICD A209 Emblem FDA Start: 01-31-2016 [place] [employer] ICD A209 Emblem FDA Start: 01-31-2016 [place] [employer] ICD A209 Emblem FDA Start: 01-31-2016 [place] [employer] ICD A209 Emblem FDA Start: 01-31-2016 [place] [employer] ICD A209 Emblem FDA Start: 01-31-2016 [employer] [employer] generator change - new device Emblem A219 FDA Start: 03-17-2022 [employer] [employer] ICD generator change- new device A219 FDA Start: 01-31-2016 [place] [employer] ICD A209 Emblem FDA Start: 01-31-2016 [place] [employer] ICD A209 Emblem FDA Start: 01-31-2016 [place] [employer] generator change - new device Emblem A219 FDA Start: 03-17-2022 [place] [employer] ICD generator change- new device A219 FDA Start: 01-31-2016 [place] [employer] ICD A209 Emblem FDA Start: 01-31-2016 [place] [employer] ICD A209 Emblem FDA Start: 01-31-2016 [place] [employer] generator change - new device Emblem A219 FDA Start: 03-17-2022 [place] [employer] generator change- new device A219 FDA Start: 01-31-2016 [place] [employer] ICD A209 Emblem FDA Start: 01-31-2016 [place] [employer] ICD A209 Emblem FDA Start: 01-31-2016 [place] [employer] generator change - new device Emblem A219 FDA Start: 03-17-2022 [place] [employer] generator change- new device A219 FDA Start: 01-31-2016 [place] [employer] ICD A209 Emblem FDA Start: 01-31-2016 [place] [employer] ICD A209 Emblem FDA Start: 01-31-2016 [place] [employer] generator change - new device Emblem A219 FDA Start: 03-17-2022 [place] [employer] generator change- new device A219 FDA Start: 01-31-2016 [place] [employer] ICD A209 Emblem FDA Start: 01-31-2016 [place] [employer] ICD A209 Emblem FDA Start: 01-31-2016 [place] [employer] generator change - new device Emblem A219 FDA Start: 03-17-2022 [place] [employer] generator change- new device A219 FDA Start: 01-31-2016 [place] [employer] ICD A209 Emblem FDA Start: 01-31-2016 [place] [facility] ICD A209 Emblem FDA Start: 01-31-2016 [place] [facility] generator change - new device Emblem A219 FDA Start: 03-17-2022 [place] [facility] [facility] ICD generator change- new device A219 FDA Start: 01-31-2016 [place] [facility] ICD A209 Emblem FDA Start: 01-31-2016 [place] [facility] ICD A209 Emblem FDA Start: 01-31-2016 [place] [facility] generator change - new device Emblem A219 FDA Start: 03-17-2022 [place] [facility] [facility] ICD generator change- new device A219 FDA Start: 01-31-2016 [place] [facility] ICD A209 Emblem FDA Start: 01-31-2016 [place] [facility] ICD A209 Emblem FDA Start: 01-31-2016 [place] [facility] [facility] generator change - new device Emblem A219 FDA Start: 03-17-2022 [place] [facility] ICD generator change- new device A219 FDA Start: 01-31-2016 [place] [facility] ICD A209 Emblem FDA Start: 01-31-2016 [place] [facility] ICD A209 Emblem FDA Start: 01-31-2016 [place] [facility] generator change - new device Emblem A219 FDA Start: 03-17-2022 [employer] ICD generator change- new device A219 FDA Start: 01-31-2016 [employer] ICD A209 Emblem FDA Start: 01-31-2016 [employer] ICD A209 Emblem FDA Start: 01-31-2016 [employer] generator change - new device Emblem A219 FDA Start: 03-17-2022 [employer] ICD generator change- new device A219 FDA Start: 01-31-2016 [employer] ICD A209 Emblem FDA Start: 01-31-2016 [employer] ICD A209 Emblem FDA Start: 01-31-2016 [employer] generator change - new device Emblem A219 FDA Start: 03-17-2022 [employer] ICD generator change- new device A219 FDA Start: 01-31-2016 [employer] ICD A209 Emblem FDA Start: 01-31-2016 [employer] ICD A209 Emblem FDA Start: 01-31-2016 [employer] generator change - new device Emblem A219 FDA Start: 03-17-2022 [employer] ICD generator change- new device A219 FDA Start: 01-31-2016 [employer] ICD A209 Emblem FDA Start: 01-31-2016 [employer] ICD A209 Emblem FDA Start: 01-31-2016 [employer] generator change - new device Emblem A219 FDA Start: 03-17-2022 [employer] generator change- new device A219 FDA Start: 01-31-2016 [employer] ICD A209 Emblem FDA Start: 01-31-2016 [employer] ICD A209 Emblem FDA Start: 01-31-2016 [employer] generator change - new device Emblem A219 FDA Start: 03-17-2022 [employer] generator change- new device A219 FDA Start: 01-31-2016 [employer] ICD A209 Emblem FDA Start: 01-31-2016 [employer] ICD A209 Emblem FDA Start: 01-31-2016 [employer] generator change - new device Emblem A219 FDA Start: 03-17-2022 [employer] generator change- new device A219 FDA Start: 01-31-2016 [employer] ICD A209 Emblem FDA Start: 01-31-2016 [employer] ICD A209 Emblem FDA Start: 01-31-2016 [employer] generator change - new device Emblem A219 FDA Start: 03-17-2022 [employer] generator change- new device A219 FDA Start: 01-31-2016 [employer] ICD A209 Emblem FDA Start: 01-31-2016 [employer] ICD A209 Emblem FDA Start: 01-31-2016 [employer] generator change - new device Emblem A219 FDA Start: 03-17-2022 [employer] generator change- new device A219 FDA Start: 01-31-2016 [employer] ICD A209 Emblem FDA Start: 01-31-2016 [employer] ICD A209 Emblem FDA Start: 01-31-2016 [employer] generator change - new device Emblem A219 FDA Start: 03-17-2022 [employer] generator change- new device A219 FDA Start: 01-31-2016 [employer] ICD A209 Emblem FDA Start: 01-31-2016 [employer] ICD A209 Emblem FDA Start: 01-31-2016 [employer] generator change - new device Emblem A219 FDA Start: 03-17-2022 [employer] generator change- new device A219 FDA Start: 01-31-2016 [employer] ICD A209 Emblem FDA Start: 01-31-2016 [employer] ICD A209 Emblem FDA Start: 01-31-2016 [employer] generator change - new device Emblem A219 FDA Start: 03-17-2022 [employer] generator change- new device A219 FDA Start: 01-31-2016 [employer] ICD A209 Emblem FDA Start: 01-31-2016 [employer] ICD A209 Emblem FDA Start: 01-31-2016 [employer] generator change - new device Emblem A219 FDA Start: 03-17-2022 [employer] generator change- new device A219 FDA Start: 01-31-2016 [employer] ICD A209 Emblem FDA Start: 01-31-2016 [employer] ICD A209 Emblem FDA Start: 01-31-2016 [employer] generator change - new device Emblem A219 FDA Start: 03-17-2022 [employer] generator change- new device A219 FDA Start: 01-31-2016 [employer] ICD A209 Emblem FDA Start: 01-31-2016 [employer] ICD A209 Emblem FDA Start: 01-31-2016 [employer] generator change - new device Emblem A219 FDA Start: 03-17-2022 [employer] generator change- new device A219 FDA Start: 01-31-2016 [employer] ICD A209 Emblem FDA Start: 01-31-2016 [employer] ICD A209 Emblem FDA Start: 01-31-2016 [employer] generator change - new device Emblem A219 FDA Start: 03-17-2022 [employer] generator change- new device A219 FDA Start: 01-31-2016 [employer] ICD A209 Emblem FDA Start: 01-31-2016 [employer] ICD A209 Emblem FDA Start: 01-31-2016 [employer] generator change - new device Emblem A219 FDA Start: 03-17-2022 [employer] generator change- new device A219 FDA Start: 01-31-2016 [employer] ICD A209 Emblem FDA Start: 01-31-2016 [employer] ICD A209 Emblem FDA Start: 01-31-2016 [employer] generator change - new device Emblem A219 FDA Start: 03-17-2022 [employer] generator change- new device A219 FDA Start: 01-31-2016 [employer] ICD A209 Emblem FDA Start: 01-31-2016 [employer] ICD A209 Emblem FDA Start: 01-31-2016 [employer] generator change - new device Emblem A219 FDA Start: 03-17-2022 [employer] generator change- new device A219 FDA Start: 01-31-2016 [employer] ICD A209 Emblem FDA Start: 01-31-2016 [employer] ICD A209 Emblem FDA Start: 01-31-2016 [employer] generator change - new device Emblem A219 FDA Start: 03-17-2022 [employer] generator change- new device A219 FDA Start: 01-31-2016 [employer] ICD A209 Emblem FDA Start: 01-31-2016 [employer] ICD A209 Emblem FDA Start: 01-31-2016 [employer] generator change - new device Emblem A219 FDA Start: 03-17-2022 [employer] generator change- new device A219 FDA Start: 01-31-2016 [employer] ICD A209 Emblem FDA Start: 01-31-2016 [employer] ICD A209 Emblem FDA Start: 01-31-2016 [employer] generator change - new device Emblem A219 FDA Start: 03-17-2022 [employer] generator change- new device A219 FDA Start: 01-31-2016 [employer] ICD A209 Emblem FDA Start: 01-31-2016 [employer] ICD A209 Emblem FDA Start: 01-31-2016 [employer] generator change - new device Emblem A219 FDA Start: 03-17-2022 [employer] generator change- new device A219 FDA Start: 01-31-2016 [employer] ICD A209 Emblem FDA Start: 01-31-2016 [employer] ICD A209 Emblem FDA Start: 01-31-2016 [employer] generator change - new device Emblem A219 FDA Start: 03-17-2022 [employer] generator change- new device A219 FDA Start: 01-31-2016 Goals Date Patient Goal Desired Activity /State Personal health goal Functional Status Date Assessment Result Facility 04-05-2022 Functional status Ambulates;Bath room [facility] Work Phone: 01-04-2022 Functional status Ambulates [facility] Work Phone: 01-22-2015 Are you deaf, or do you have serious difficulty hearing Yes 01/22/2015 8:08 AM Luz Gaytan RN Yes [facility] 01-22-2015 Are you blind, or do you have serious difficulty seeing, even when wearing glasses No 01/22/2015 8:08 AM Luz Gaytan RN No [facility] 01-22-2015 Do you have serious difficulty walking or climbing stairs No 01/22/2015 8:08 AM Luz Gaytan RN No [facility] 01-22-2015 Do you have difficul ty dressing or bathing No 01/22/2015 8:08 AM Luz Gaytan RN No [facility] 01-22-2015 Because of a physica l, mental, or emotional condition, do you have difficulty doing errands alone such as visiting a physician's office or shopping No 01/22/2015 8:08 AM EDT Luz Ordoñez RN No [facility] Mental Status Date Assessment Result Facility 11-10-2024 Cognitive function Level Of Cons ciousness Awake;Alert;Appropriate;Fol lows [facility] Work Phone: 12-25-2023 Cognitive function Level Of Cons ciousness Awake;Alert;Appropriate [facility] Work Phone: 03-08-2023 Cognitive function Level Of Cons ciousness Awake;Alert;Appropriate;Fol lows [facility] Work Phone: 04-05-2022 Cognitive function Voice/Name [facility] Work Phone: 04-02-2022 Cognitive function Level Of Cons ciousness Awake;Alert;Appropriate;Fol lows [facility] Work Phone: 01-04-2022 Cognitive function Voice/Name [facility] Work Phone: 01-22-2015 Because of a physica l, mental, or emotional condition, do you have serious difficulty concentrating, remembering, or making decisions No 01/22/2015 8:08 AM EDT Luz Ordoñez RN No [facility] Clinical Notes 01-31-2016 to 04-08-2025 Patient InstructionsEstrellita Soto MD - 04/08/2025 10:00 AM EDT Note Date & Type Note Facility 04-08-2025 Instructions Estrellita Soto MD - 04/08/2025 10:34 AM EDT We discussed your cardiac history and current management: - Your subcutaneous ICD, implanted in January 2016, is functioning well with no reported issues or shocks. The generator was last replaced in February 2022. Continue following up with the [facility] for regular monitoring, including your weekly transmissions. - Your blood pressure today was 120/60, and your heart rate was within normal limits. No changes to your medications or treatment plan are needed at this time. - You reported no chest pain, shortness of breath, or passing out. Please let us know if you experience any of these symptoms in the future. We reviewed your medications: - Continue taking Atorvastatin (20 mg daily) for cholesterol management. Your cholesterol level is currently 104. You plan to discuss the possibility of discontinuing this medication with your primary care physician at your next visit. - Continue taking Cardizem (Diltiazem) sustained release (120 mg daily) and Carvedilol (25 mg twice daily) as prescribed. - Your thyroid medication dosage has been adjusted to 100 mcg; continue taking this as directed. - Continue taking Ozempic as prescribed. We discussed follow-up care: - You are scheduled to see your primary care physician next week. Please follow up with them regarding your cholesterol management and any other concerns. - You typically see me once a year for follow-up visits. If you experience any new symptoms or concerns, please contact our office sooner. No additional tests, procedures, or changes to your care plan are needed at this time. documented in this encounter [facility] 04-08-2025 History of Present illness Narrative PRIMARY CARE PHYSICIAN: [place] [address] Patient Care Team: Katherin Soriano MD as PCP - General (Internal Medicine) Estrellita Tony V as Specialty Dress Cutter (Internal Medicine) Marj Marcial CNP as Specialty Dress Cutter (Family Medicine) Estrellita Soto MD as Specialty Dress Cutter (Cardiology) Bunny Verdin MD as Specialty Dress Cutter (Cardiology) Maribeth Mcfarlane MD as Specialty Dress Cutter (Nephrology) CHIEF COMPLAINT: Follow up for arrhythmia, ICD HISTORY OF PRESENT ILLNESS: Mr. Recinos is a 84 year old male who presents today for a cardiovascular medicine follow-up visit. Recording using ambient AI software for draft documentation of the visit was discussed with the patient/authorized brand representative; all questions welcomed and answered. Patient/authorized brand representative agreed to proceed History from previous notes, edited as needed and/or generated by dictation with use of AI.: Patient Overview: Mr. 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 A single-chamber transvenous ICD system was implanted via the left side of the chest in July 2015 for secondary prevention. In October 2015, the ICD system was extracted due to Enterococcus faecalis sepsis, and a subcutaneous ICD was implanted in January 2016. The ICD has been followed by [facility]. 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 He was treated with amiodarone, which had been initiated around February 2017, possibly for ventricular arrhythmias with ICD shock. The amiodarone was discontinued in 2017. The ICD generator was changed in February 2022. Interim History Dr. Soto 04/08/2025: The patient is an 84-year-old male with a history of oci-oc-jdgrlzdh cardiac arrest, s/p CABG, and s/p subcutaneous ICD implantation, presenting for a follow-up visit. The patient reports no recent issues with his ICD, including no shocks or malfunctions. He denies experiencing any chest pain, dyspnea, or syncope. He has not undergone any recent surgeries and is reportedly on a "no surgery list" due to high risk. His medical history is significant for an vle-st-ltcxamqe cardiac arrest in 06/2015, followed by the implantation of a single-chamber transvenous ICD in 07/2015 for secondary prevention. The ICD was removed in 10/2015 due to Enterococcus faecalis sepsis, and a subcutaneous ICD was implanted in 01/2016. The ICD generator was replaced in 02/2022. He underwent CABG in 04/2017 and experienced postoperative atrial flutter and atrial fibrillation, requiring electrical cardioversion and treatment with amiodarone. He was previously on amiodarone in 02/2017, possibly for ventricular arrhythmias with ICD shock, but it was discontinued in 2017. He is currently followed by the [facility], with home transmissions sent every Sunday (he states although this seems to be frequent, typically there are routine transmissions every 3 months). He has upcoming appointments with his primary care physician next week and his oyster sorter next month. He is currently taking atorvastatin 20 mg once daily, Cardizem SR 120 mg once daily, carvedilol 25 mg BID, and Ozempic. His thyroid medication dosage was recently adjusted to 100 mcg. He reports no new allergies. I have confirmed and edited as necessary, the PFSH and ROS obtained by others. 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/2015 CAD (coronary artery disease) Cardiac arrest ([facility]) 07/23/2015: VF documented by EMS upon arrival, defibrillated with 200 Joules to achieve ROSC within 9 minutes of EMS being called Cardiomyopathy ([facility]) LVEF 35% by echo 11/03/2015 Chronic low back pain Chronic systolic heart failure (HCC) CKD (chronic kidney disease) Complete left bundle branch block (LBBB) COPD (chronic obstructive pulmonary disease) (HCC) Essential hypertension GERD (gastroesophageal reflux disease) History of coronary artery bypass graft x 2 04/27/2017 History of sudden cardiac arrest successfully resuscitated initial rhythm documented by first responders after he arrested 07/23/2015; defibrillated successfully; s/p ICD implant; had ICD shock for VF in 01/2017 Hypothyroidism Implanted cardiac defibrillator infection 10/2015 Enterococcus faecalis; transvenous ICD system removed and later a subcutaneous ICD implanted Ischemic cardiomyopathy 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 of amiodarone previously Malfunction of implantable cardioverter-defibrillator (ICD) premature battery depletion Malignant tumor of prostate (HCC) JOYCE (obstructive sleep apnea) prescribed C-PAP Persistent atrial fibrillation (HCC) Pneumonia d/t aspiration Presence of implantable cardioverter-defibrillator (ICD) single-chamber ICD (BSCI) 07/30/2015; indication: secondary prevention after SCD; system removed 11/05/2015 due to recurrent Enterococcus bacteremia with evidence for endocarditis; S-ICD implanted; shock for VF 01/2017 Seizure (HCC) Transient cerebral ischemia generalized severe nonspecific cerebral dysfunction Type II or unspecified type diabetes mellitus without mention of complication, not stated as uncontrolled Ventricular fibrillation (HCC) initial rhythm documented by first responders after he arrested 07/23/2015; defibrillated successfully; s/p ICD implant; had ICD shock for VF in 01/2017 PAST SURGICAL HISTORY Procedure Laterality Date APPENDECTOMY BASIC ICD SINGLE CHAMBER Left 07/30/2015 single-chamber ICD (BSCI) single coil RV lead; indication: secondary prevention after SCD; [facility] Dr. Soto CABG (2) VEIN GRAFTS & ARTERIAL GRAFT(S 04/27/2017 L-LAD, SVG-OM; HARRY clip CARDIAC CATH 07/26/2015 CARDIOVERSION ELECTIVE ARRHYTHMIA INTERNAL SPX 05/11/2017 [facility]: De[facility] CAROTID ENDARTERECTOMY Left 11/2020 DEFIBRILLATOR SURGERY Left 11/05/2015 complete removal of single-chamber ICD system (ICD PG and RV lead); indication: recurrent bacteremia with evidence for endocarditis; [facility] Dr. Soto ECHO TRANSESOPHAG CONGEN PROBE [facility] IMGNG I&R 05/11/2017 [facility]: [facility] ECHOCARDIOGRAM 11/03/2015 LVEF 35%; moderately severe MR; moderately severe TR EYELID SURGERY PROCEDURE Left 03/01/2022 HAND SURGERY HX Left amputation left hand PROSTATE SURGERY HX S-ICD IMPLANT Left 03/17/2022 [employer] subcutaneous ICD (S-ICD) generator change; [facility] Dr. Soto SUB-Q ICD IMPLANT TIER 1 Left 01/31/2016 reimplant of ICD after transvenous system extraction for infection 10/2015; subcutaneous ICD ([employer]); [facility] Dr. Soto UNLISTED PROCEDURE HUMERUS/ELBOW Left arm fracture SOCIAL HISTORY SOCIAL HISTORY[1] FAMILY HISTORY Problem Relation Age of Onset None Mother other (gangreen in the gallbladder) Father ALLERGIES: ALLERGIES Allergen Reactions Laura Inhibitors Cough Dust Mites Other: See Comments Enalapril Cough Latex Other: See Comments Pulls the skin off of him. Levaquin [Levofloxa* Other: See Comments Due to interactions with Heart meds Molds Extract Other: See Comments Warfarin Other: See Comments Zithromax [Azithrom* Other: See Comments Due to interactions with Heart meds MEDICATIONS: furosemide (LASIX) 40 mg tablet TAKE ONE TABLET BY MOUTH TWICE DAILY FOR 5 DAYS, THEN TAKE ONE TABLET ONCE DAILY FOR EPISODES OF CHF. OZEMPIC 0.25 mg or 0.5 mg (2 mg/3 mL) pen INJECT 0.25MG SUBCUTANEOUSLY ONCE A WEEK, ROTATE INJECTION SITE. (Patient taking differently: Inject 0.25 mg subcutaneously one time a week.) atorvastatin (LIPITOR) 20 mg tablet Take 20 mg by mouth daily at bedtime. levothyroxine (SYNTHROID) 125 mcg tablet TAKE 1 TABLET BY MOUTH ONCE DAILY BEFORE A MEAL apixaban (ELIQUIS) 2.5 mg tab(s) Take 2.5 mg by mouth two times a day. insulin glargine-yfgn (SEMGLEE) 100 unit/mL (3 mL) insulin pen Inject 8 Units subcutaneously every morning. (Patient taking differently: Inject 8 Units subcutaneously every morning. Taking 11 units daily) tiotropium 2.5 mcg-olodateroL 2.5 mcg/actuation mist for inhalation (STIOLTO RESPIMAT) Inhale 2 Puffs as instructed twice daily. azelastine 0.1% nasal spray USE 1 TO 2 SPRAY(S) IN EACH NOSTRIL TWICE DAILY vit A,C,L-Xyjs-Rprirx (OCUVITE PRESERVISION) 2,148 mcg-113 mg-45 mg-17.4mg tab as directed Orally albuterol HFA (PROVENTIL HFA, VENTOLIN HFA) 90 mcg/actuation inhaler bevacizumab (AVASTIN) 25 mg/mL injection 1.25 mg by INTRAVITREAL route every 8 weeks. empagliflozin (JARDIANCE) 25 mg tablet Take 12.5 mg by mouth daily with breakfast. dilTIAZem CD (CARDIZEM CD, CARTIA XT) 120 mg 24 hr capsule Take 120 mg by mouth once daily. omeprazole (PRILOSEC) 40 mg capsule Take 40 mg by mouth once daily. mometasone (ASMANEX HFA) 200 mcg/actuation HFA Inhale 2 Puffs as instructed once daily. albuterol (PROVENTIL) 2.5 mg /3 mL (0.083 %) nebulizer solution Use 2.5 mg via nebulizer every 4 hours as needed for wheezing/shortness of breath. guaiFENesin (MUCINEX) 1,200 mg Ta12 Take 1,200 mg by mouth daily at bedtime. Cholecalciferol, Vitamin D3, (VITAMIN D) 25 mcg (1,000 unit) cap Take 1,000 Units by mouth once daily. (Patient taking differently: Take 1,000 Units by mouth once daily. 5000 units daily) insulin aspart U-100 (NOVOLOG FLEXPEN U-100 INSULIN) 100 unit/mL inpn Inject subcutaneously three times daily with meals. Sliding scale. fluticasone (FLONASE) 50 mcg/actuation nasal spray Use 1 Boyd in each nostril once daily. Ascorbic Acid (VITAMIN C) 1,000 mg tablet Take 1,000 mg by mouth once daily. carvedilol (COREG) 25 mg tablet Take 25 mg by mouth twice daily with meals. LACTOBACILLUS ACIDOPHILUS ORAL Take 1 capsule by mouth twice daily. CPAP Use as directed multivitamin (MULTIPLE VITAMINS) ORAL tablet Take 1 tablet by mouth once daily. Review of Systems Constitutional: Negative for chills and fever. Respiratory: Negative for cough, hemoptysis, sputum production and shortness of breath. Cardiovascular: Negative for chest pain, palpitations, orthopnea and PND. Gastrointestinal: Negative for abdominal pain, blood in stool, melena, nausea and vomiting. Genitourinary: Negative for hematuria. Musculoskeletal: Negative for falls. Skin: Negative for rash. Neurological: Negative for seizures and loss of consciousness. PHYSICAL EXAMINATION: BP 120/60 Pulse 66 Resp 18 Ht 5' 11" (1.80m) Wt 202 lb (91.6kg) SpO2 94% BMI 28.19 kg/(m^2). Physical Exam Vitals reviewed. Constitutional: General: He is not in acute distress. Cardiovascular: Rate and Rhythm: Normal rate and regular rhythm. Heart sounds: Normal heart sounds, S1 normal and S2 normal. No murmur heard. No friction rub. Comments: ICD site left axillary region without erythema, warmth, tenderness, swelling, drainage or skin erosion Pulmonary: Effort: Pulmonary effort is normal. No respiratory distress. Breath sounds: Normal breath sounds. No wheezing, rhonchi or rales. Musculoskeletal: Right lower leg: No edema. Left lower leg: No edema. Skin: General: Skin is warm and dry. Neurological: Mental Status: He is alert and oriented to person, place, and time. Psychiatric: Mood and Affect: Mood normal. Behavior: Behavior normal. Thought Content: Thought content normal. CARDIOVASCULAR MEDICINE TESTING: Electrocardiogram: Sinus rhythm 67 bpm; first-degree AV block (DE 260 ms); left bundle branch block (QRS duration 154 ms); QTc 473 ms Device Check: ICD is followed by [facility] I have personally reviewed the Electrocardiogram I spent a total of 30 minutes on the date of the service which included preparing to see the patient and care coordination (not separately reported). 1. Ischemic cardiomyopathy - ICD9: 414.8, ICD10: I25.5 (primary diagnosis) 2. 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ailure (HCC) - ICD9: 428.42, ICD10: I50.42 3. Atherosclerosis of red devil coronary artery of red devil heart without angina pectoris - ICD9: 414.01, ICD10: I25.10 4. History of sudden cardiac arrest successfully resuscitated - ICD9: V12.53, ICD10: Z86.74 5. Presence of implantable cardioverter-defibrillator (ICD) - ICD9: V45.02, ICD10: Z95.810 6. Persistent atrial fibrillation (HCC) - ICD9: 427.31, ICD10: I48.19 7. At risk for stroke - ICD9: V15.89, ICD10: Z91.89 8. At risk for bleeding associated with anticoagulants - ICD9: V15.89, ICD10: Z91.89 9. Anticoagulant long-term use - ICD9: V58.61, ICD10: Z79.01 10. Complete left bundle branch block (LBBB) - ICD9: 426.3, ICD10: I44.7 CHADS2-Vasc Score Breakdown 8 Total Score 2 Age >= 75 years old 1 History of CHF 1 History of hypertension 1 History of diabetes mellitus 2 History of stroke, TIA, or thromboembolism 1 History of vascular disease IMPRESSION: 1. Ischemic cardiomyopathy (I25.5) 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ailure (HCC) (I50.42) Clinically stable on current medication regimen including carvedilol and diltiazem. No recent episodes of chest pain, dyspnea, or syncope reported. - Continue current medications: carvedilol 25 mg BID and diltiazem SR 120 mg daily. - Follow-up with primary care physician next week. 2. Atherosclerosis of red devil coronary artery of red devil heart without angina pectoris (I25.10) Managed with atorvastatin 20 mg daily. LDL cholesterol level is 104 mg/dL. - Continue atorvastatin 20 mg daily. - He wants to discuss potential discontinuation of atorvastatin with primary care physician during next visit. 3. History of sudden cardiac arrest successfully resuscitated (Z86.74) Presence of implantable cardioverter-defibrillator (ICD) (Z95.810) ICD functioning well with no recent shocks or malfunctions reported. Device monitored by [facility] with weekly transmissions. - Continue regular ICD monitoring with [facility]. - Annual follow-up with oyster sorter. 4. Persistent atrial fibrillation (HCC) (I48.19) History of atrial fibrillation managed with diltiazem SR 120 mg daily. - Continue diltiazem SR 120 mg daily. 5. At risk for stroke (Z91.89) At risk for bleeding associated with anticoagulants (Z91.89) Anticoagulant long-term use (Z79.01) Patient is at risk for stroke due to history of atrial fibrillation. Mr. Recinos is being treated with oral anticoagulation for stroke prevention, and the risk:benefit of such treatment still seems to be favorable. 6. Complete left bundle branch block (LBBB) (I44.7) PLAN AND RECOMMENDATIONS: Continue with current plan of care from EP standpoint. He will continue to follow up with [facility] under supervision of [facility]. I had a detailed discussion with Mr. Recinos regarding my evaluation and recommendations. After our discussion, Mr. Recinos expressed his understanding and I answered all his questions to his apparent satisfaction. Return in about 1 year (around 04/08/2026) for Dr. Soto, POB office. Estrellita Soto MD 04/08/2025 Medical Decision Making: Problems: Moderate: 2+ stable chronic illnesses Data: Unique source(s) for external note(s) reviewed: 2 Unique test result(s) reviewed: 2 Unique test(s) ordered: 1 Risk: Moderate: Moderate risk from testing/treatment and Drug management Medical Decision Making Level: 4 - Moderate [1] Social History Tobacco Use Smoking status: Former Current packs/day: 0.00 Average packs/day: 1 pack/day for 23.0 years (23.0 ttl pk-yrs) Types: Cigarettes Start date: 10/10/1947 Quit date: 10/10/1970 Years since quittin.5 Smokeless tobacco: Never Tobacco comments: quit 40 years ago Vaping Use Vaping status: Never Used Substance Use Topics Alcohol use: No Drug use: No documented in this encounter [facility] 04-08-2025 Note HNO ID: [id number] Author: ESTRELLITA SOTO MD Service: ? Author Type: Physician Type: Progress Notes Filed: 04/09/2025 17:37 Note Text: PRIMARY CARE PHYSICIAN: Katherin [address] [place] [address] Patient Care Team: Katherin Soriano MD as PCP - General (Internal Medicine) Estrellita Tony V as Specialty Dress Cutter (Internal Medicine) Marj Marcial CNP as Specialty Dress Cutter (Family Medicine) Estrellita Soto MD as Specialty Dress Cutter (Cardiology) Bunny Verdin MD as Specialty Dress Cutter (Cardiology) Maribeth Mcfarlane MD as Specialty Dress Cutter (Nephrology) CHIEF COMPLAINT: Follow up for arrhythmia, ICD HISTORY OF PRESENT ILLNESS: Mr. Recinos is a 84 year old male who presents today for a cardiovascular medicine follow-up visit. Recording using ambient AI software for draft documentation of the visit was discussed with the patient/authorized brand representative; all questions welcomed and answered. Patient/authorized brand representative agreed to proceed History from previous notes, edited as needed and/or generated by dictation with use of AI.: Patient Overview: Mr. Recinos has a history of daj-ah-fzxrclxi cardiac arrest that occurred in June 2015. A single-chamber transvenous ICD system was implanted via the left side of the chest in July 2015 for secondary prevention. In October 2015, the ICD system was extracted due to Enterococcus faecalis sepsis, and a subcutaneous ICD was implanted in January 2016. The ICD has been followed by [facility]. 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 He was treated with amiodarone, which had been initiated around February 2017, possibly for ventricular arrhythmias with ICD shock. The amiodarone was discontinued in 2017. The ICD generator was changed in February 2022. Interim History Dr. Soto 04/08/2025: The patient is an 84-year-old male with a history of isk-df-xekwtxaf cardiac arrest, s/p CABG, and s/p subcutaneous ICD implantation, presenting for a follow-up visit. The patient reports no recent issues with his ICD, including no shocks or malfunctions. He denies experiencing any chest pain, dyspnea, or syncope. He has not undergone any recent surgeries and is reportedly on a "no surgery list" due to high risk. His medical history is significant for an tyt-yx-gkesrmnm cardiac arrest in 06/2015, followed by the implantation of a single-chamber transvenous ICD in 07/2015 for secondary prevention. The ICD was removed in 10/2015 due to Enterococcus faecalis sepsis, and a subcutaneous ICD was implanted in 01/2016. The ICD generator was replaced in 02/2022. He underwent CABG in 04/2017 and experienced postoperative atrial flutter and atrial fibrillation, requiring electrical cardioversion and treatment with amiodarone. He was previously on amiodarone in 02/2017, possibly for ventricular arrhythmias with ICD shock, but it was discontinued in 2017. He is currently followed by the [facility], with home transmissions sent every Sunday (he states although this seems to be frequent, typically there are routine transmissions every 3 months). He has upcoming appointments with his primary care physician next week and his oyster sorter next month. He is currently taking atorvastatin 20 mg once daily, Cardizem SR 120 mg once daily, carvedilol 25 mg BID, and Ozempic. His thyroid medication dosage was recently adjusted to 100 mcg. He reports no new allergies. I have confirmed and edited as necessary, the PFSH and ROS obtained by others. 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/2015 CAD (coronary artery disease) Cardiac arrest (HCC) 07/23/2015: VF documented by EMS upon arrival, defibrillated with 200 Joules to achieve ROSC within 9 minutes of EMS being called Cardiomyopathy (HCC) LVEF 35% by echo 11/03/2015 Chronic low back pain Chronic systolic heart failure (HCC) CKD (chronic kidney disease) Complete left bundle branch block (LBBB) COPD (chronic obstructive pulmonary disease) (HCC) Essential hypertension GERD (gastroesophageal reflux disease) History of coronary artery bypass graft x 2 04/27/2017 History of sudden cardiac arrest successfully resuscitated initial rhythm documented by first responders after he arrested 07/23/2015; defibrillated successfully; s/p ICD implant; had ICD shock for VF in 01/2017 Hypothyroidism Implanted cardiac defibrillator infection 10/2015 Enterococcus faecalis; tr (more content not included)... [facility] 01-21-2025 Evaluation note Diagnosis Onset Date Resolution Mild cognitive impairment acute January 21, 2025 7 :50am [facility] Work Phone: [phone] 199-446903-27-2025 Radiology Diagnostic study note [facility] Imaging Services [address] [place] [address] Chest PA and Lateral MR#: [id number] Acct: [id number] Name: RACHNA RECINOS Rep #: [id number] 2 : 1940 M 84 From: Christiano Bobby MD PCP: Dr. Katherin Soriano MD Status: REG CL I Study:Chest PA and Lateral Date of Exam: 11/19/24 Exam# [id number] Ordering Dr: Laurel Soriano MD EXAM: X-ray chest PA and lateral CLINICAL HISTORY: Productive cough COMPARISON: 11/10/2024 TECHNIQUE: PA and lateral views of the chest, 2 PA views to include the entire chest, 3 total images FINDINGS: Mid to lower zone increased perihilar markings may represent mild pulmonary edema. Cardiac and mediastinal contours appear unchanged. Status post median sternotomy with single lead AICD and left atrial closure device againnoted. No focal consolidation or pleural effusion. Status post cholecystectomy. Aortic atherosclerotic calcifications noted. RAD/Chest PA and Lateral IMPRESSION: Mid to lower zone bilateral increased perihilar markings may represent mild pulmonary edema, clinically correlate. Reading Location: [facility] CC: Dr. Katherin Soriano MD ~ Circular Distributor: Signed [facility]03-17-2025 Discharge summary [facility] Medical Records Department [address] [place] [address] Emergency Department Summary 11/10/24 MR#: [id number] Acct: [id number] Name: RACHNA RECINOS Rep #:[id number] 3 : 1940 84 From: Gavi Crandall DO PCP: Dr. Katherin Soriano MD Status:REG ER Location: ED ADDENDUM by Dr. Romeo Medeiros DO on 11/10/24 at 0757 Patient was turned over to me by Dr. Terrell@ 0715 Brief history: 84-year-old male presents with viral URI-like symptoms Physical exam: No acute respiratory distress. Patient ambulated and maintained saturation 93% which is appropriategiven history of COPD Labs and images reviewed (if obtained): Chest x-ray was read reviewed personally myself showed no evidence of obvious focal pneumonia Influenza A positive Likely etiology influenza A. Patient was not hypoxic. He is not within the window for Tamiflu. He was encouraged to take Tylenol and ibuprofen. Given prednisone prescription. Strict return precautions were discussed. PCP follow-up was arranged. MDM/plan: Discharge home Impression: 1. Viral URI 2. Influenza A 3 history of COPD Disposition: Discharge home 11/10/24 4411 Cosigner Signature (if applicable): cc: Dr. Katherin Soriano MD ~* Signed HPI History of Present Illness Chief Complaint: General Illness Detail of Chief Complaint: Cough Informant: patient Narrative Narrative: Patient presents with cough and some mild shortness of breath that started 3 to 4 days ago. Cough mostly nonproductive. He said no fever. He has a history ofCOPD and obstructive sleep apnea. Last 2 nights he has had a sleep sitting up. Denies weight gain or leg edema. Denies sick contacts. Denies chest pain. [facility] Medical History Spinal stenosis at L4-L5 level CKD (chronic kidney disease) stage 3, GFR 30-59 ml/min Diabetes Kidney stones Kidney disease Former smoker Atrial fibrillation Irregular heart beat ICD (implantable cardioverter-defibrillator) in place Congestive heart failure (CHF) 65 years of age or older COVID-19 (06/01/21) Dizziness Wears dentures Wears glasses Wears hearing aid Insulin dependent diabetes mellitus Dietary restriction CPAP (continuous positive airway pressure) dependence COPD (chronic obstructive pulmonary disease) Cardiology follow-up encounter History of stress test History of echocardiogram Carotid stenosis, left Dark stools Chronic kidney disease (CKD) Bacterial endocarditis Postoperative atrial fibrillation Paroxysmal atrial fibrillation Elevated LFTs Ischemic cardiomyopathy Cardiac arrest with ventricular fibrillation (06/2015) Essential (primary) hypertension Chronic systolic (congestive) heart failure History of acute bacterial endocarditis Nonrheumatic mitral (valve) prolapse Hypokalemia 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 Left bundle branch block Primary idiopathic hypertrophic cardiomyopathy Night sweats Infection and inflammatory reaction due to other cardiac and vascular devices, implants and grafts,initial encounter Anemia Iron deficiency Bilateral carotid bruits Thalamic mass Infectious endocarditis Type II diabetes mellitus Hypothyroidism HLD (hyperlipidemia) Home Medications ?Medication ?Instructions ?Recorded ?Last Taken ?Type cholecalciferol (vitamin D3) 25 1,000 unit PO BID supp lement 05/20/18 03/20/20 19:00 History mcg (1,000 unit) capsule 1000 units ferrous gluconate 324 mg (37.5 mg 325 mg PO DAILY iron supplement 05/20/18 03/20/20 19:00 History iron) tablet 325 mg insulin aspart U-100 100 unit/mL 5 unit subcut DINNER DM 05/20/18 03/20/20 18:00 History (3 mL) subcutaneous pen 12 units insulin aspart U-100 100 unit/mL 10 units subcut BREAK FAST DM 05/20/18 03/20/20 08:00 History (3 mL) subcutaneous pen 12 units multivitamin 1 each PO DAILY supplement 0 05/20/18 03/20/20 08:00 History 1 each apixaban 2.5 mg tablet (Eliquis) 2.5 mg PO BID blood t hinner 06/29/20 04/02/22 History Handicap Parking Placard #1 ea 08/25/20 Unknown Rx albuterol sulfate 90 mcg/actuation 2 puff inhalation Q 4H PRN fill as 11/22/20 Unknown Rx aerosol inhaler courtesy until 's office open #18 grams insulin glargine 100 unit/mL 10 unit SQ QHS DM 1 Unknown History subcutaneous solution lactobacillus comb no.10 20 1 each PO DAILY supplement 11/24/20 Unknown History billion cell capsule ascorbic acid (vitamin C) 1,000 mg 1,000 mg PO DAILY s upplement 12/29/20 Unknown History tablet fluticasone propionate 50 2 spray intranasal DAILY con gestion 12/29/20 Unknown History mcg/actuation nasal spray,suspension (Flonase Allergy Relief) albuterol sulfate 2.5 mg/3 mL 2.5 mg continuous nebuli zation QHS 01/30/21 Unknown History (0.083 %) solution for nebulization breathing empagliflozin 25 mg tablet 12.5 mg PO DAILY 03/24/22 U nknown History (Jardiance) guaifenesin 600 mg tablet, 600 mg PO BID 04/02/22 08/0 03/17 History extended release 12 hr (Mucinex) azelastine 137 mcg (0.1 %) nasal 1 spray intranasal QH S 05/22/23 Unknown History spray bevacizumab 25 mg/mL intravenous 12/25/23 Unknown His tory solution (Avastin) levothyroxine 125 mcg tablet 125 mcg PO DAILY 12/25/23 Unknown History tiotropium 2.5 mcg-olodaterol 2.5 2 puff inhalation DA MAGDA 12/25/23 Unknown History mcg/actuation mist for inhalation (Stiolto Respimat) vitamins A,C,F-xvpd-kkfory 2,148 2 tab PO BID 12/25/23 Unknown History mcg-113 mg-45 mg-17.4 mg tablet (Eye Multivitamin) mometasone 200 mcg/actuation HFA 2 puff inhalation TRI LY 03/19/24 Unknown History aerosol inhaler (Asmanex HFA) quercetin 500 mg capsule mg PO BID 03/19/24 Unknown H istory atorvastatin 20 mg tablet 20 mg PO QHS #90 tabs Unknown Rx carvedilol 25 mg tablet 25 mg PO BID Patient going o ut of 09/17/24 Unknown Rx state for 3 months #180 tabs coffee extract 100 mg-phosphatidyl cap PO 09/17/24 Unk nown History serine 100 mg capsule (Neuriva Original) diltiazem HCl 120 mg 120 mg PO BID Patient going out of 09/17/24 Unknown Rx capsule,extended release 24 hr state for 3 months #180 caps (Cardizem CD) omeprazole 40 mg capsule,delayed 40 mg PO DAILY Patien t going out 09/17/24 Unknown Rx release of state for 3 months #90 ca ps prednisone 20 mg tablet 20 mg PO BID #10 tabs Unknown Rx Allergy/AdvReac Type Severity Reaction Status Date / Time latex Allergy Other Verified 11/10/24 05:28 LAURA Inhibitors AdvReac Intermediate cough Verified 11/10/24 05:28 enalapril AdvReac Intermediate Shortness Verified 11/10/24 05:28 of breath adhesive tape AdvReac rash Verified 11/10/24 05:28 warfarin (From Coumadin) AdvReac bleeding Verified 11/10/24 05:28 under the skin Family History Father , age 47 from peritonitis Peritonitis Mother , age 93 CVA (cerebral vascular accident) several TIA's Surgical History History of appendectomy History of partial amputation of left hand Hx of bilateral cataract extraction Hx of prostatectomy Hx of cholecystectomy Abnormal fractional flow reserve (FFR) on cardiac catheterization (02/2017) History of cardioversion (04/2017) History of implantable cardiac defibrillator (ICD) (03/17/22) H/O coronary artery bypass surgery (04/27/17) History of left heart catheterization ICD (implantable cardioverter-defibrillator) infection Social History household members: spouse Smoking Status: Former smoker how long ago did patient quit smoking: Quit ~ 50 years prior, prior to quittingup to 4 ppd since [age] years old. alcohol intake: never substance use type: does not use caffeine: No what type of physical activity do you participate in: walking frequency: 5-6 times per week duration: 15-30 minutes/day seatbelt use: always do you feel safe at home: Yes ROS ROS ED Review of Systems ROS Unobtainable: other Constitutional Constitutional ED: Reports lethargy; Denies chills, fever(s), sweats or weight loss Eyes Eyes: Denies blurry vision, change in vision or diplopia ENT ENT ED: Denies rhinorrhea or sore throat Cardiovascular Cardiovascular: Denies chest pain, orthopnea or racing heartbeat Respiratory/Chest Respiratory/Chest: Reports cough, dyspnea and dyspnea on exertion; Denies orthopnea or sputum Gastrointestinal Gastrointestinal: Denies abdominal pain, diarrhea, nausea or vomiting Genitourinary Genitourinary ED: Denies dysuria, hematuria or urinary frequency Musculoskeletal Musculoskeletal: Denies arthralgias, back pain, myalgias or neck pain Integumentary Denies abscess, Abrasions or rash Neurologic Neurologic: Denies headache(s) or weakness Psychiatric Psychiatric: Denies anxiety, depression or suicidal thoughts Endocrine Endocrinology: Denies polydipsia, polyphagia or polyuria Hematologic/Lymphatic Hematologic/Lymphatic: Denies easy bleeding, easy bruising or lymphadenopathy Allergic/Immunologic Allergic/Immunologic ED: Denies mouth swelling, tongue swelling or urticaria EXAM Physical Exam Const Vital Signs: 11/10/24 05:31 11/10/24 05:31 11/10/24 06:30 Temperature 98.6 F Temperature Source Oral Pulse Rate 82 Respiratory Rate 18 Respiratory Effort Normal Respiratory Pattern Normal Blood Pressure 158/70 H Blood Pressure Mean 99 Pulse Ox 95 95 Oxygen Delivery Method Room Air Room Air 11/10/24 06:30 Temperature Temperature Source Pulse Rate 85 Respiratory Rate 16 Respiratory Effort Respiratory Pattern Blood Pressure Blood Pressure Mean Pulse Ox Oxygen Delivery Method Positive well nourished and well developed General Appearance ED: well developed and NAD HEENT Reports TM's clear and moist mucous membranes normocephalic and atraumatic; Negative for trauma or tenderness Tympanic Membrane ED: Yes TM's clear Eyes PERRL and EOMs intact bilaterally General Eye ED: Negative for pale conjunctiva or scleral icterus Neck no lymphadenopathy, supple and no JVD General: Negative for tenderness Chest Wall inspection of chest normal and palpation of chest normal Chest: Negative for tenderness Resp normal respiratory effort and clear to auscultation bilaterally Resp Narrative: Good aeration bilaterally. Few expiratory wheezes noted bilaterally. No significant tachypnea. No scientist propagator muscle use or retractions. Effort and Inspection: Negative for respiratory distress or pain with movement Auscultation: wheezes; Negative for rhonchi or diminished lung sounds Cardio regular rate, regular rhythm, S1 normal heart sound, S2 normal heart sound and no murmurs Peripheral Pulses: pulses 2+ throughout GI normal to inspection, nondistended, normoactive bowel sounds, soft to palpation,non-tender, non-distended and no masses Back/Spine no CVA tenderness and no thoracic nor lumbar tenderness Extremity normal to inspection General Extremety ED: Negative for edema General Extremity: Negative for edema Neuro oriented x3, CN's II-XII intact bilaterally, no sensory deficits noted and gait normal Sensorium / Orientation: awake, alert, oriented to person, oriented to place andoriented to time Motor Exam: strength 5/5 throughout and strength abnormal Psych mental status grossly normal Skin no rashes or lesions noted and no wounds MDM MDM MDM Narrative Medical decision making narrative: Patient presents with cough x 3 to 4 days. Vital stable and clinically looks well. In the differential would be viral infection versus COPD exacerbation versus pneumonia. Patient was given DuoNeb aerosol. Chest x-ray obtained. COVID flu and RSV testing obtained. Care of patient turned over to morning physician awaiting x-ray result and testing for COVID flu and RSV. Lab Data Attestation: I reviewed the patient's lab results. Radiography Diagnostic Testin view chest x-ray obtained interpreted by myself as no evidence of infiltrate or pneumothorax or acute disease process. And some chronic interstitial changes. Discharge Plan Triage Chief Complaint: General Illness ED Provider: Gavi Crandall Dx/Rx/DC Orders Prescriptions: New prednisone 20 mg tablet 20 mg PO BID Qty: 10 0RF No Action Eliquis 2.5 mg tablet 2.5 mg PO BID Patient Comments: pt states per Dr Antony's instructions, will stop Eliquis 48hrs prior to surgery on 04/06/21 fluticasone propionate [Flonase Allergy Relief] 50 mcg/actuation spray,suspension 2 spray intranasal DAILY Rx Instructions: administer into each nostril Asmanex HFA 200 mcg/actuation HFA aerosol inhaler 2 puff inhalation DAILY Jardiance 25 mg tablet 12.5 mg PO DAILY Rx Instructions: take 1/2 tab daily quercetin 500 mg capsule PO BID Neuriva Original 100-100 mg capsule PO omeprazole 40 mg capsule,delayed release(DR/EC) 40 mg PO DAILY Qty: 90 3RF diltiazem HCl [Cardizem CD] 120 mg capsule,extended release 24hr 120 mg PO BID Qty: 180 3RF carvedilol 25 mg tablet 25 mg PO BID Qty: 180 3RF multivitamin 1 EACH tablet 1 each PO DAILY cholecalciferol (vitamin D3) 1,000 UNIT capsule 1,000 unit PO BID insulin aspart U-100 100 UNITS/ML insulin pen 10 units SC BREAKFAST Rx Instructions: SSI insulin aspart U-100 100 UNITS/ML insulin pen 5 unit SC DINNER Rx Instructions: SSI ferrous gluconate 325 MG tablet 325 mg PO DAILY ascorbic acid (vitamin C) 1,000 mg tablet 1,000 mg PO DAILY insulin glargine 100 UNIT/ML solution 10 unit SQ QHS Rx Instructions: SSI lactobacillus comb no.10 1 EACH capsule 1 each PO DAILY albuterol sulfate 2.5 mg /3 mL (0.083 %) solution for nebulization 2.5 mg continuous nebulization QHS Patient Comments: USE 1 VIAL IN NEBULIZER AT BEDTIME guaifenesin [Mucinex] 600 mg Tablet Extended Release 12hr 600 mg PO BID azelastine 137 mcg (0.1 %) aerosol,spray 1 spray INTRANASAL QHS Patient Comments: USE 1 TO 2 SPRAY(S) IN EACH NOSTRIL TWICE DAILY Stiolto Respimat 2.5-2.5 mcg/actuation mist 2 puff inhalation DAILY levothyroxine 125 mcg tablet 125 mcg PO DAILY Eye Multivitamin 2,148 mcg-113 mg-45 mg-17.4mg tablet 2 tab PO BID Rx Instructions: administer with AM and PM meals Avastin 25 mg/mL solution (DME) Handicap Parking Placard See Rx Instructions .Route .MEDSUPPLY Qty: 1 0RF Rx Instructions: As directed albuterol sulfate 90 mcg/actuation HFA aerosol inhaler 2 puff INHALATION Q4H PRN (Reason: fill as courtesy until 's office open) Qty: 18 0RF atorvastatin 20 mg tablet 20 mg PO QHS Qty: 90 3RF Primary Care Provider: Katherin Soriano Referrals: Katherin Soriano MD [Primary Care Provider] - Print Language: Vincentian What to do if you have Problems For any increased pain, shortness of breath, bleeding, nausea or vomiting, chestpain, or any unexpected problems, contact your Primary Care Provider. Call [facility] ([phone]) or report tothe closest Emergency Room. Call 911 if necessary. 11/10/24 0711 Cosigner Signature (if applicable): CC: Dr. Katherin Soriano MD ~ Signed [facility]01-22-2025 Evaluation note* Diagnosis Onset Date Resolution Status Admit Date Bilateral carotid bruits acute September 17, 2024 1:47pm 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 September 17, 2024 1:47pm Chronic systolic (congestive ) heart failure chronic September 17 1:47pm Essential (primary) hypertension chronic September 17 1:47pm History of implantable cardiac defibrillator (ICD) March 17, 2022 chronic Paulino 2024 1:47pm HLD (hyperlipidemia) chronic 2024 1:47pm Paroxysmal atrial fibrillation chronic September 17 1:47pm Ischemic cardiomyopathy resolved J anuary 2024 1:47pm [facility] Work Phone: 1(500) 461-987108-01-2024 History of Present illness Narrative* Estrellita Soto MD - 03/27/2024 9:40 AM EDT PRIMARY CARE PHYSICIAN: Corin Hernandez MD ([facility]) [address] [place] [address] Patient Care Team: Katherin Soriano MD as PCP - General (Internal Medicine) Estrellita Tony V as Specialty Dress Cutter (Internal Medicine) Marj Marcial CNP as Specialty Dress Cutter (Family Medicine) Jayy Cancino MD as Specialty Dress Cutter (Urology) Estrellita Soto MD as Specialty Dress Cutter (Cardiology) Bunny Verdin MD as Specialty Dress Cutter (Cardiology) Maribeth Mcfarlane MD as Specialty Dress Cutter (Nephrology) CHIEF COMPLAINT: Follow up for arrhythmia, ICD HISTORY OF PRESENT ILLNESS: Mr. Recinos is a 83 year old male who presents today for a cardiovascular medicine follow-up visit. History copied from previous notes, edited as needed: Summary of previous notes: Mr. Recinos experienced [id number] cardiac arrest in 06/2015. An ICD was implanted 07/2015 consisting of a single-chamber transvenous ICD system via the left chest. He developed Enterococcus faecalis sepsis in 09/2015, and this was recurrent despite antibiotic treatment. The ICD system was extracted (removed) 10/2015. A subcutaneous ICD was implanted 01/2016. Mr. Recinos underwent CABG 04/2017. He had postop atrial arrhythmias including atrial flutter, and underwent electrical cardioversion. Amiodarone was transiently increased to 400 mg twice daily and then back to 200 mg daily on hospital discharge. He is being treated with amiodarone for recurrent atrial arrhythmias including postoperative atrial fibrillation or flutter. However, from my review of the medical records it appears that the amiodarone wasinitiated in about February 2017, probably for the [...] perhaps also the amiodarone should be discontinued. The ICD has [facility] followed [facility]. At some point in 2017 amiodarone was discontinued. The ICD generator was changed in February 2022 for battery depletion. Interim History Dr. Soto 03/27/2024: Mr. Recinos presents for follow up evaluation for arrhythmia and ICD. No problems with ICD site. No heart rhythm problems. He denies chest pain, shortness ofbreath, orthopnea, palpitations, PND, syncope. It seems that at some point he was taken off oral anticoagulation therapy, likely due to unfavorable risk:benefit. I have confirmed and edited as necessary, the PFSH and ROS obtained by others. PAST MEDICAL HISTORY No date: ACEI/ARB contraindicated Comment: renal dysfunction according to patient and his No date: Anoxic encephalopathy ([facility]) Comment: resolving 01/31/2016: Anticoagulant long-term use 10/2015: Bacteremia Comment: Enterococcus faecalis; recurrent despite antibiotic therapy 10/2015 No date: CAD (coronary artery disease) No date: Cardiac arrest ([facility]) Comment: 07/23/2015: VF documented by EMS upon arrival, defibrillated with 200 Joules to achieve ROSC within 9 minutes of EMS being called No date: Cardiomyopathy ([facility]) Comment: LVEF 35% by echo 11/03/2015 No date: Chronic low back pain No date: Chronic systolic heart failure ([facility]) No date: CKD (chronic kidney disease) No date: Complete left bundle branch block (LBBB) No date: COPD (chronic obstructive pulmonary disease) ([facility]) No date: Essential hypertension No date: GERD (gastroesophageal reflux disease) 04/27/2017: History of coronary artery bypass graft x 2 No date: History of sudden cardiac arrest successfully resuscitated Comment: initial rhythm documented by first responders after he arrested 07/23/2015; defibrillated successfully; s/p ICD implant; had ICD shock for VF in 01/2017 No date: Hypothyroidism 10/2015: Implanted cardiac defibrillator infection ([facility]) Comment: 10/2015 Enterococcus faecalis; transvenous ICD system removed and later a subcutaneous ICD implanted No date: Ischemic cardiomyopathy No date: care home current use of amiodarone Comment: previously No date: Malfunction of implantable cardioverter-defibrillator (ICD) Comment: premature battery depletion No date: Malignant tumor of prostate ([facility]) No date: JOYCE (obstructive sleep apnea) Comment: prescribed C-PAP No date: Persistent atrial fibrillation (HCC) No date: Pneumonia Comment: d/t aspiration No date: Presence of implantable cardioverter-defibrillator (ICD) Comment: single-chamber ICD (BSCI) 07/30/2015; indication: secondary prevention after SCD; system removed 11/05/2015 due to recurrent Enterococcus bacteremia with evidence for endocarditis; S-ICD implanted; shock for VF 01/2017 No date: Seizure (HCC) No date: Transient cerebral ischemia Comment: generalized severe nonspecific cerebral dysfunction No date: Type II or unspecified type diabetes mellitus without mention of complication, not stated as uncontrolled No date: Ventricular fibrillation (HCC) Comment: initial rhythm documented by first responders after he arrested 07/23/2015; defibrillated successfully; s/p ICD implant; had ICD shock for VF in 01/2017 PAST SURGICAL HISTORY No date: APPENDECTOMY 07/30/2015: BASIC ICD SINGLE CHAMBER; Left Comment: single-chamber ICD (BSCI) single coil RV lead; indication: secondary prevention after SCD; [facility] Dr. Soto 04/27/2017: CABG (2) VEIN GRAFTS & ARTERIAL GRAFT(S Comment: L-LAD, SVG-OM; HARRY clip 07/26/2015: CARDIAC CATH 05/11/2017: CARDIOVERSION ELECTIVE ARRHYTHMIA INTERNAL SPX Comment: STUG: Deyvi 11/2020: CAROTID ENDARTERECTOMY; Left 11/05/2015: DEFIBRILLATOR SURGERY; Left Comment: complete removal of single-chamber ICD system (ICD PG and RV lead); indication: recurrent bacteremia with evidence for endocarditis; [facility] Dr. Soto 05/11/2017: ECHO TRANSESOPHAG CONGEN PROBE [facility] IMGNG I&R Comment: OSVALDO: Deyvi 11/03/2015: ECHOCARDIOGRAM Comment: LVEF 35%; moderately severe MR; moderately severe TR 03/01/2022: EYELID SURGERY PROCEDURE; Left No date: HAND SURGERY HX; Left Comment: amputation left hand No date: PROSTATE SURGERY HX 03/17/2022: S-ICD IMPLANT; Left Comment: [employer] subcutaneous ICD (S-ICD) generator change; OSVALDO Soto 01/31/2016: SUB-Q ICD IMPLANT TIER 1; Left Comment: reimplant of ICD after transvenous system extraction for infection 10/2015; subcutaneous ICD ([employer]); [facility] Dr. Soto No date: UNLISTED PROCEDURE HUMERUS/ELBOW; Left Comment: arm fracture SOCIAL HISTORY Social History Tobacco Use Smoking status: Former Packs/day: 1.00 Years: 23.00 Additional pack years: 0.00 Total pack years: 23.00 Types: Cigarettes Quit date: 10/10/1970 Years since quittin.5 Smokeless tobacco: Never Tobacco comments: quit 40 years ago Vaping Use Vaping Use: Never used Substance Use Topics Alcohol use: No Drug use: No FAMILY HISTORY Problem Relation Age of Onset None Mother other (gangreen in the gallbladder) Father ALLERGIES: ALLERGIES Allergen Reactions Laura Inhibitors Cough, Unknown Dust Mites Other: See Comments Enalapril Cough Latex Other: See Comments Pulls the skin off of him. Levaquin [Levofloxa* Other: See Comments Due to interactions with Heart meds Molds Extract Other: See Comments Warfarin Other: See Comments Zithromax [Azithrom* Other: See Comments Due to interactions with Heart meds MEDICATIONS: insulin glargine-yfgn (SEMGLEE) 100 unit/mL (3 mL) insulin pen Inject 8 Units subcutaneously every morning. tiotropium 2.5 mcg-olodateroL 2.5 mcg/actuation mist for inhalation (STIOLTO RESPIMAT) Inhale 2 Puffs as instructed twice daily. azelastine 0.1% nasal spray USE 1 TO 2 SPRAY(S) IN EACH NOSTRIL TWICE DAILY vit A,C,A-Xaee-Rjgiqy (OCUVITE PRESERVISION) 2,148 mcg-113 mg-45 mg-17.4mg tab as directed Orally albuterol HFA (PROVENTIL HFA, VENTOLIN HFA) 90 mcg/actuation inhaler bevacizumab (AVASTIN) 25 mg/mL injection 1.25 mg by INTRAVITREAL route every 8 weeks. empagliflozin (JARDIANCE) 25 mg tablet Take 12.5 mg by mouth daily with breakfast. dilTIAZem CD (CARDIZEM CD, CARTIA XT) 120 mg 24 hr capsule Take 120 mg by mouth once daily. omeprazole (PRILOSEC) 40 mg capsule Take 40 mg by mouth once daily. mometasone (ASMANEX HFA) 200 mcg/actuation HFA Inhale 2 Puffs as instructed once daily. albuterol (PROVENTIL) 2.5 mg /3 mL (0.083 %) nebulizer solution Use 2.5 mg via nebulizer every 4 hours as needed for wheezing/shortness of breath. guaiFENesin (MUCINEX) 1,200 mg Ta12 Take 1,200 mg by mouth daily at bedtime. Cholecalciferol, Vitamin D3, (VITAMIN D) 25 mcg (1,000 unit) cap Take 1,000 Units by mouth once daily. insulin aspart U-100 (NOVOLOG FLEXPEN U-100 INSULIN) 100 unit/mL inpn Inject subcutaneously three times daily with meals. Sliding scale. levothyroxine (SYNTHROID) 100 mcg tablet Take 100 mcg by mouth daily before breakfast. Takes 200 mgon Sundays fluticasone (FLONASE) 50 mcg/actuation nasal spray Use 1 Boyd in each nostril once daily. Ascorbic Acid (VITAMIN C) 1,000 mg tablet Take 1,000 mg by mouth once daily. atorvastatin (LIPITOR) 10 mg tablet Take 10 mg by mouth daily at bedtime. carvedilol (COREG) 25 mg tablet Take 25 mg by mouth twice daily with meals. LACTOBACILLUS ACIDOPHILUS ORAL Take 1 capsule by mouth twice daily. CPAP Use as directed multivitamin (MULTIPLE VITAMINS) ORAL tablet Take 1 tablet by mouth once daily. Review of Systems Constitutional: Negative for chills and fever. Respiratory: Negative for cough, hemoptysis, sputum production and shortness of breath. Cardiovascular: Negative for chest pain, palpitations, orthopnea and PND. Gastrointestinal: Negative for abdominal pain, blood in stool, melena, nausea and vomiting. Genitourinary: Negative for hematuria. Skin: Negative for rash. Neurological: Negative for dizziness, focal weakness, seizures and loss of consciousness. PHYSICAL EXAMINATION: BP 126/67 Pulse 79 Resp 16 Ht 5' 11.26" (1.81m) Wt 210 lb (95.3kg) SpO2 98% BMI 29.08 kg/(m^2). Physical Exam Vitals reviewed. Constitutional: General: He is not in acute distress. Appearance: Normal appearance. HENT: Head: Normocephalic and atraumatic. Cardiovascular: Rate and Rhythm: Normal rate and regular rhythm. Heart sounds: Normal heart sounds, S1 normal and S2 normal. No murmur heard. No friction rub. Comments: ICD site left axillary region without erythema, warmth, tenderness, swelling, drainage orskin erosion Pulmonary: Effort: Pulmonary effort is normal. No respiratory distress. Breath sounds: Normal breath sounds. No wheezing, rhonchi or rales. Musculoskeletal: Cervical back: Neck supple. Right lower leg: No edema. Left lower leg: No edema. Skin: General: Skin is warm and dry. Neurological: Mental Status: He is alert and oriented to person, place, and time. Psychiatric: Mood and Affect: Mood normal. Behavior: Behavior normal. Thought Content: Thought content normal. CARDIOVASCULAR MEDICINE TESTING: Electrocardiogram: Sinus rhythm 81 bpm; first-degree AV block (DE 252 ms); PACs; nonspecific IVCD (QRS 150 ms); possible lateral infarct pattern; QTc 506 ms Device Check: [facility] manages the ICD I have personally reviewed the Electrocardiogram and Device Check. I spent a total of 30 minutes on the date of the service which included preparing to see the patient, [id number] patient care, completing clinical documentation, obtaining and/or reviewing separately obtained history, performing a medically appropriate examination, counseling and educating the pat ient/family/caregiver, ordering medications, tests, or procedures, communicating with other HCPs (not separately reported), independently interpreting results (not separately reported), communicatingresults to the patient/family/caregiver, and care coordination (not separately reported). 1. Ischemic cardiomyopathy - ICD9: 414.8, ICD10: I25.5 (primary diagnosis) 2. 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ailure (HCC) - ICD9: 428.42, ICD10: I50.42 3. History of sudden cardiac arrest successfully resuscitated - ICD9: V12.53, ICD10: Z86.74 4. Presence of implantable cardioverter-defibrillator (ICD) - ICD9: V45.02, ICD10: Z95.810 5. Complete left bundle branch block (LBBB) - ICD9: 426.3, ICD10: I44.7 6. Persistent atrial fibrillation (HCC) - ICD9: 427.31, ICD10: I48.19 7. At risk for stroke - ICD9: V15.89, ICD10: Z91.89 8. At risk for bleeding associated with anticoagulants - ICD9: V15.89, ICD10: Z91.89 CHADS2-Vasc Score Breakdown 8 Total Score 2 Age >= 75 years old 1 History of CHF 1 History of hypertension 1 History of diabetes mellitus 2 History of stroke, TIA, or thromboembolism 1 History of vascular disease IMPRESSION: Mr. Recinos seems to be stable with regards to arrhythmia and ICD. The ICD site looks fine by examination. The ICD is followed and managed by [facility]. He was previously on Eliquis for stroke prevention from atrial fibrillation, but is no longer on it. I suspect this is due to unfavorable risk:benefit. I will leave this issue to the [facility] and PCP --- it seems that it was stopped in 2021 after the ICD generator change. PLAN AND RECOMMENDATIONS: Continue with current plan of care from EP standpoint. He will continue to follow up with [facility] under supervision of [facility]. Return in about 1 year (around 03/27/2025) for PIO Esqu[place] or [place] office. Estrellita Soto MD 03/27/2024 Medical Decision Making: Problems: Moderate: 2+ stable chronic illnesses Data: Unique source(s) for external note(s) reviewed: 1 Unique test result(s) reviewed: 2 Unique test(s) ordered: 1 Risk: Moderate: Moderate risk from testing/treatment and Drug management Medical Decision Making Level: 4 - Moderate [facility]* Esperanza Wheeler MA - 03/27/2024 9:32 AM EDT Patient has no cardiac complaints today. Esperanza Wheeler CMA [facility] Nurse Note* Esperanza Wheeler MA - 03/27/2024 9:32 AM EDT Patient has no cardiac complaints today. Esperanza Wheeler CMA [facility] Discharge summary Author Shanna Haskins [facility] September 11, 2023 9:56am Note Date/Time September 11, 2023 9 :56am [facility] Physical Therapy [facility] [address] [place] [address] / REHABILITATION SERVICES DISCHARGE SUMMARY MR#: [id number] Acct: [id number] Name: RACHNA RECINOS Rep #: [id number] 3 : 1940 82 From: Shanna Haskins PT, Cert. MDT Referring Dr.: Dr. Ken Drummond MD Status : REG RCR Insurance: MEDICARE PART A B [employer] Discharge Summary D/C summary: It has been my pleasure to treat RACHNA RECINOS referred by Dr. Ken Drummond MD, with the diagnosis of L/S STENOSIS, SPONDYLOSIS, AND RADICULOPATHY for a total of 10 visit(s). Discharge Date: 09/11/23 Please see the following information for a summary of their discharge status. Subjective Subjective: PATIENT REPORTS HIS PAIN IS GONE. HE STATES HE IS READY TO CONTINUEEX ON HIS OWN NOW. Pain Back: Pain Intensity (Out of 10): 4 Overall Improvement % Improvement: 70 Objective Objective/Function: PATIENT WAS SEEN TODAY FOR RE-ASSESSMENT OF PROGRESS TOWARD THE SET PT GOALS AND THE NEED FOR FURTHER PHYSICAL THERAPY VS READINESS FOR DISCHARGE. UPON EXAM TODAY ALL PT GOAL HAVE BEEN MET. ANGELIQUE LE STRENGTH IS 5/5 AND PATIENT IS INDEP WITH A GYM EX PROGRAM. LUMBAR MVMT LOSS: flex - MIN ext - MOD R SG - MOD L SG - MOD LAST PT SESSION INCLUDED THE FOLLOWING EX'S: NuStep: L3 5 minutes-legs only for lower extremity endurance and aerobic conditioning Sit to stand: [id number] across chest +foam Lateral walks at counter: 4 laps teal band Seated hip abd (4): 3x10 35# N/T in use HSC (22): 3x10 35# Leg press (5): 3x10 90# Leg extension: 3x10 15# Heel raises on slant board: 2x15 Hip isolator abd: 2x10/ea 50# Goals Goal 1:: DECREASE C/O LOW BACK PAIN TO 0-2/10 WITH ALL ADL'S Goal Progress: Goal Met Goal 2:: PATIENT WILL HAVE INCREASED BLE AND CORE STRENGTH INCREASED BY 1/2 GRADE OF ALL EFFECTED MUSCULATEURE. Goal Progress: Goal Met Goal 3:: PATIENT WILL BE ABLE TO STAND AND WALK FOR 20 MINUTES WITHOUT INCREASEDSYMPTOMS/NEEDING TO SIT DOWN FOR INCREASED ADL TOLERANCE. Goal Progress: Goal Met Goal 4:: INDEP HEP AND H&W PROGRAM W/SILVER SNE[employer]ER MEMBERSHIP Goal Progress: Goal Met Plan Plan: D/C TO INDEP EX. PATIENT AGREEABLE. D/C Information d/c sentence: If there are questions or concerns regarding this patient's physical therapy, please feel free to call me at [phone]. Thank you for the referral of thispatient. Sincerely, Shanna Haskins, PT, Cert MDT Balance/Gait/Functional tests Balance/Special Test Scores Oswestry Low Back Score: 0 Improvement % Improvement: 70 <Electronically signed by Shanna Haskins PT, Cert. MDT> 09/11/23 0956 CC: Dr. Corin Hernandez MD; Dr. Ken Drummond MD ~ [facility] Signed [facility] Work Phone: 1(459) 678-842207-29-2022 Nurse Note* Diana Garner RN - 03/24/2022 10:15 AM EDT Spoke with spouse and patient via phone, patient indicated the incision is closed and steri strips intact. Denies drainage or bleeding, denies redness denies fever or chills. Reviewed post device restrictions with patient who voiced understanding. 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 Chronic systolic (congestive) heart failure chronic Essential (primary) hypertension chronic History of implantable cardi ac defibrillator (ICD) March 17, 2022 chronic HLD (hyperlipidemia) chronic Paroxysmal atrial fibrillation chronic Ischemic cardiomyopathy reso lved Bilateral carotid bruits acu te 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 Chronic systolic (congestive) heart failure chronic Essential (primary) hypertension chronic History of implantable cardi ac defibrillator (ICD) March 17, 2022 chronic HLD (hyperlipidemia) chronic Paroxysmal atrial fibrillation chronic Ischemic cardiomyopathy reso lved Diabetes acute Hypertension chronic Vertigo resolved History of implantable cardi ac defibrillator (ICD) March 17, 2022 chronic Ischemic cardiomyopathy reso lved Chronic systolic (congestive) heart failure chronic History of implantable cardi ac defibrillator (ICD) March 17, 2022 chronic Paroxysmal atrial fibrillation chronic Ischemic cardiomyopathy reso lved Chronic systolic (congestive) heart failure chronic History of implantable cardi ac defibrillator (ICD) March 17, 2022 chronic Left bundle branch block chr onic Paroxysmal atrial fibrillation chronic Ischemic cardiomyopathy reso [facility] Work Phone: 1(607) 771-702307-22-2022 Evaluation note* Diagnosis Onset Date Resolution Status Chronic systolic (congestive) heart failure chronic History of implantable cardi ac defibrillator (ICD) March 17, 2022 chronic Left bundle branch block chr onic Ischemic cardiomyopathy reso [facility] Work Phone: 1(879) 896-156107-22-2022 Evaluation note* Diagnosis Onset Date Resolution Status Muscle strain acute Chronic systolic (congestive) heart failure chronic History of implantable cardi ac defibrillator (ICD) March 17, 2022 chronic Left bundle branch block chr onic Paroxysmal atrial fibrillation chronic Ischemic cardiomyopathy reso lved Bilateral carotid bruits acu te 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 Chronic systolic (congestive) heart failure chronic Essential (primary) hypertension chronic History of implantable cardi ac defibrillator (ICD) March 17, 2022 chronic HLD (hyperlipidemia) chronic Paroxysmal atrial fibrillation chronic Ischemic cardiomyopathy reso lved Spinal stenosis at L4-L5 level acute Chronic systolic (congestive) heart failure chronic Essential (primary) hypertension chronic History of implantable cardi ac defibrillator (ICD) March 17, 2022 chronic Ischemic cardiomyopathy reso [facility] Work Phone: 1(893) 497-400307-22-2022 Evaluation note* Diagnosis Onset Date Resolution Status Muscle strain acute Chronic systolic (congestive) heart failure chronic History of implantable cardi ac defibrillator (ICD) March 17, 2022 chronic Left bundle branch block chr onic Paroxysmal atrial fibrillation chronic Ischemic cardiomyopathy reso lved Bilateral carotid bruits acu te 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 Chronic systolic (congestive) heart failure chronic Essential (primary) hypertension chronic History of implantable cardi ac defibrillator (ICD) March 17, 2022 chronic HLD (hyperlipidemia) chronic Paroxysmal atrial fibrillation chronic Ischemic cardiomyopathy reso lved Chronic systolic (congestive) heart failure chronic Essential (primary) hypertension chronic History of implantable cardi ac defibrillator (ICD) March 17, 2022 chronic Ischemic cardiomyopathy reso lved Herniated nucleus pulposus, L3-4 left acute Herniated nucleus pulposus, L3-4 left acute [facility] Work Phone: 1(404) 221-873807-22-2022 Evaluation note* Diagnosis Onset Date Resolution Status Chronic systolic (congestive) heart failure chronic Essential (primary) hypertension chronic History of implantable cardi ac defibrillator (ICD) March 17, 2022 chronic Ischemic cardiomyopathy reso lved Herniated nucleus pulposus, L3-4 left acute Herniated nucleus pulposus, L3-4 left acute [facility] Work Phone: 1(657) 673-932507-22-2022 Miscellaneous Notes* Telephone Encounter - Emmy Mendez - 03/17/2022 12:08 PM EDT Scheduled. Patient to be notified upon discharge Emmy Mendez * Telephone Encounter - Estrellita Soto MD - 03/17/2022 12:01 PM EDT Mr. Recinos needs an appointment (or phone call) with a nurse in 7 - 10 days for wound check after device surgical procedure today. He should be resuming his regular ICD follow up with [facility] Estrellita Soto MD March 17, 2022 12:01 PM [facility] Miscellaneous Notes* Telephone Encounter - Marlee Holland RN - 03/13/2022 1:37 PM EDT Pt's name has been added to good procedure board. Marlee Holland, RN * Telephone Encounter - Emmy Mendez - 03/13/2022 12:31 PM EDT Patient is scheduled for an SICD gen change on 03/17/[address] Soto. The hospital will call the day before between 2-5pm with your arrival time. Patient should not eat or drink after midnight the day before the procedure. Patient will need a route delivery service driver when released from the hospital. Patient should continue to take medications as prescribed the morning of the procedure with just a sip of water but hold Eliquis 2 days prior to the procedure. Spoke with patients and she verbalized understanding of all instructions Emmy Mendez documented [facility] encounter[facility] History of Past illness Narrative* Problem Noted Date Resolved Date ICD (implantable cardioverte r-defibrillator) battery depletion 03/09/2022 03/17/2022 Cardiac arrest 03/07/2016 05/31/2016 Cardiac arrest 07/05/2019 Overview: 07/23/2015: VF documented by EMS upon arrival, defibrillated with 200 Joules to achieve ROSC within 9 minutes of EMS being called care home current use of amiodarone 09/11/2019 documented as of this encounter (statuses as of 03/17/2022) [facility] History of Past illness Narrative* Problem Noted Date Resolved Date ICD (implantable cardioverte r-defibrillator) battery depletion 03/09/2022 03/17/2022 Cardiac arrest 03/07/2016 05/31/2016 Cardiac arrest 07/05/2019 Overview: 07/23/2015: VF documented by EMS upon arrival, defibrillated with 200 Joules to achieve ROSC within 9 minutes of EMS being called 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 #:[id number] Prescriptions as of 11/25/2021 - mometasone (ASMANEX [...] (FLONASE) 50 mcg/actuation nasal spray Use 1 Boyd in each nostril once daily. 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] 04/27/2017 Anemia of renal disease [N18.9, D63.1] 01/23/2018 Chronic renal insufficiency, stage III (moderat*01/23/2018 Streptococcus infection, group D enterococcus [*11/15/2015 Family history of cerebrovascular accident (CVA*01/23/2018 History of bacterial endocarditis [Z86.79] 11/15/2015 History of malignant neoplasm of prostate [Z85.*08/27/2002 Current use of group home anticoagulation [Z79.0*01/31/2016 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 Author Type: Physician Type: [...] KUB/sono at f/u pending normal U/A Jayy Cancino MD, FACS Director, Surgical Stone Disease, [facility] [place] inspection and testing supervisor, [employer] Pager [phone] 11/22/2021[facility]03-29-2022 History of Present illness Narrative* Jayy Cancino MD - 11/22/2021 10:41 AM EDT STAFF [...] KUB/sono at f/u pending normal U/A Jayy Cancino MD, FACS Director, Surgical Stone Disease, [facility] [place] inspection and testing supervisor, [facility] Pager [phone] 11/22/2021 [facility] NoteHNO ID: [id number] Author: Jessica Andre RDMS Service: ? Author Type: Communications Equipment Operator Type: Progress Notes Filed: 11/18/2021 11:00 AM Note Text: Radiology Service Progress Note PATIENT NAME: Rachna Recinos DATE OF SERVICE: November 18, 2021 TIME: [...] Andre RDMS RVT November 18, 2021 11:00 [facility]03-25-2022 NoteHNO ID: [id number] Author: RT Min(R) Service: ? Author Type: Technologist Type: Progress Notes Filed: 11/18/2021 10:13 AM Note Text: Radiology Service Progress Note PATIENT NAME: Rachna Recinos DATE OF SERVICE: November 18, 2021 TIME: [...] BY: RT Min(R) November 18, 2021 9:52 [facility]03-25-2022 History of Present illness Narrative* Jessica Andre RDMS - 11/18/2021 10:30 AM EDT Radiology Service Progress Note PATIENT NAME: Rachna Recinos DATE OF SERVICE: November 18, 2021 TIME: [...] 18, 2021 11:00 AM [facility] History of Present illness Narrative* RT Min(Robi) - 11/18/2021 10:00 AM EDT Radiology Service Progress Note PATIENT NAME: Rachna Recinos DATE OF SERVICE: November 18, 2021 TIME: [...] 18, 2021 9:52 AM [facility] NotePatient Outreach (UROLMN) SERENARACHNA TEMPLE ([id number]) 1940 M NFR Date Time Provider Department 12/14/20 JAYY CANCINO During your visit today, we [...] Date Reviewed: 12/14/2020 Reviewed by: Mariama Padgett ([facility]) KELSEA Sloan - Fully Assessed Visit Diagnosis:Screening for genitourinary condition [Z13.89] Order(s):URINALYSIS, DIPSTICK ONLY [SQUA] Order #: [id number]. 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] 04/27/2017 Anemia of renal disease [N18.9, D63.1] 01/23/2018 Chronic renal insufficiency, stage III (moderat*01/23/2018 Streptococcus infection, group D enterococcus [*11/15/2015 Family history of cerebrovascular accident (CVA*01/23/2018 History of bacterial endocarditis [Z86.79] 11/15/2015 History of malignant neoplasm of prostate [Z85.*08/27/2002 Current use of group home anticoagulation [Z79.0*01/31/2016 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 Author Type: Physician Type: Progress [...] 1 yr with KUB/sono at f/u Jayy Cancino MD, FACS Director, Surgical Stone Disease, [facility] [place] inspection and testing supervisor, [employer] Pager [phone] 12/14/2020[facility]04-16-2021 NoteHNO ID: [id number] Author: Betty Briscoe (Rt) Susan Ring Service: Radiology Author Type: Potato Chip Sorter Type: Progress Notes Filed: 12/10/2020 10:37 AM Note Text: Radiology Service Progress Note PATIENT NAME: Rachna Recinos DATE OF SERVICE: December 10, 2020 TIME: [...] BY: RT Charlene December 10, 2020 10:37 [facility]07-12-2016 History of Past illness Narrative* Problem Noted Date Resolved Date Cardiac arrest 03/07/2016 05/31/2016 Cardiac arrest 07/05/2019 Overview: 07/23/2015: VF documented by EMS upon arrival, defibrillated with 200 Joules to achieve ROSC within 9 minutes of EMS being called care home current use of amiodarone 09/11/2019 documented as of this encounter (statuses as of 11/22/2021) [facility]07-12-2016 History of Past illness Narrative* Problem Noted Date Resolved Date Cardiac arrest 03/07/2016 05/31/2016 Cardiac arrest 07/05/2019 Overview: 07/23/2015: VF documented by EMS upon arrival, defibrillated with 200 Joules to achieve ROSC within 9 minutes of EMS being called 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 of amiodarone 09/11/2019 documented as of this encounter (statuses as of 11/25/2021) [facility]07-12-2016 History of Past illness Narrative* Problem Noted Date Resolved Date Cardiac arrest 03/07/2016 05/31/2016 Cardiac arrest 07/05/2019 Overview: 07/23/2015: VF documented by EMS upon arrival, defibrillated with 200 Joules to achieve ROSC within 9 minutes of EMS being called 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 of amiodarone 09/11/2019 documented as of this encounter (statuses as of 11/19/2021) [facility]07-12[facility]2016 History of Past illness Narrative* Problem Noted Date Resolved Date Cardiac arrest 03/07/2016 05/31/2016 Cardiac arrest 07/05/2019 Overview: 07/23/2015: VF documented by EMS upon arrival, defibrillated with 200 Joules to achieve ROSC within 9 minutes of EMS being called care home current use of amiodarone 09/11/2019 documented as of this encounter (statuses as of 11/19/2021) [facility] History of Past illness Narrative* Problem Noted Date Resolved Date Cardiac arrest 03/07/2016 05/31/2016 Cardiac arrest 07/05/2019 Overview: 07/23/2015: VF documented by EMS upon arrival, defibrillated with 200 Joules to achieve ROSC within 9 minutes of EMS being called 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 of amiodarone 09/11/2019 documented as of this encounter (statuses as of 03/13/2022) [facility] Evaluation note* Diagnosis Onset Date Resolution Status 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 Essential (primary) hypertension chronic History of implantable cardiac defibrillator (ICD) Jan chronic HLD (hyperlipidemia) chronic Paroxysmal atrial fibrillation chronic Ischemic cardiomyopathy reso lved Chronic systolic (congestive) heart failure chronic History of implantable cardiac defibrillator (ICD) Jan chronic Left bundle branch block chr onic Paroxysmal atrial fibrillation chronic Ischemic cardiomyopathy reso lved Abdominal pain acute Hypoxia acute CHF exacerbation chronic [facility] Work Phone: [phone]) 534-924506-06-2016 Evaluation note* Diagnosis Onset Date Resolution Status 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 Essential (primary) hypertension chronic History of implantable cardiac defibrillator (ICD) Jan chronic HLD (hyperlipidemia) chronic Paroxysmal atrial fibrillation chronic Ischemic cardiomyopathy reso lved Chronic systolic (congestive) heart failure chronic History of implantable cardiac defibrillator (ICD) Jan chronic Left bundle branch block chr onic Paroxysmal atrial fibrillation chronic Ischemic cardiomyopathy reso lved Abdominal pain acute SILKE (acute kidney injury) [place] Diverticulitis acute Hypoxia acute CHF exacerbation chronic CKD (chronic kidney disease) stage 3, GFR 30-59 ml/min [facility] Work Phone: [phone]) 743-246306-06-2016 Evaluation note* Diagnosis Onset Date Resolution Status 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 Essential (primary) hypertension chronic History of implantable cardiac defibrillator (ICD) Jan chronic HLD (hyperlipidemia) chronic Paroxysmal atrial fibrillation chronic Ischemic cardiomyopathy reso lved Chronic systolic (congestive) heart failure chronic History of implantable cardiac defibrillator (ICD) Jan chronic Left bundle branch block chr onic Paroxysmal atrial fibrillation chronic Ischemic cardiomyopathy reso lved Abdominal pain resolved SILKE (acute kidney injury) re solved CHF exacerbation resolved Diverticulitis resolved Hypoxia resolved [facility] Work Phone: [phone]) 232-427506-06-2016 Evaluation note* Diagnosis Onset Date Resolution Status Chronic systolic (congestive) heart failure chronic History of implantable cardiac defibrillator (ICD) Jan chronic Left bundle branch block chr onic Paroxysmal atrial fibrillation chronic Ischemic cardiomyopathy reso lved Abdominal pain resolved SILKE (acute kidney injury) re solved CHF exacerbation resolved Diverticulitis resolved Hypoxia resolved 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 Essential (primary) hypertension chronic History of implantable cardiac defibrillator (ICD) Jan chronic HLD (hyperlipidemia) chronic Paroxysmal atrial fibrillation chronic Ischemic cardiomyopathy reso lved [facility] Work Phone: [phone]) 546-654006-06-2016 Evaluation note* Diagnosis Onset Date Resolution Status Chronic systolic (congestive) heart failure chronic History of implantable cardiac defibrillator (ICD) Jan chronic Left bundle branch block chr onic Paroxysmal atrial fibrillation chronic Ischemic cardiomyopathy reso lved Abdominal pain resolved SILKE (acute kidney injury) re solved CHF exacerbation resolved Diverticulitis resolved Hypoxia resolved 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 Essential (primary) hypertension chronic History of implantable cardiac defibrillator (ICD) Jan chronic HLD (hyperlipidemia) chronic Paroxysmal atrial fibrillation chronic Ischemic cardiomyopathy reso lved Chronic systolic (congestive) heart failure chronic History of implantable cardiac defibrillator (ICD) Jan chronic Left bundle branch block chr onic Paroxysmal atrial fibrillation chronic Ischemic cardiomyopathy reso lved 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 Chronic systolic (congestive) heart failure chronic Essential (primary) hypertension chronic History of implantable cardiac defibrillator (ICD) Jan chronic HLD (hyperlipidemia) chronic Paroxysmal atrial fibrillation chronic Ischemic cardiomyopathy reso lved [facility] Work Phone: [phone]) 301-700806-06-2016 Evaluation note* Diagnosis Onset Date Resolution Status Chronic systolic (congestive) heart failure chronic History of implantable cardiac defibrillator (ICD) Jan chronic Left bundle branch block chr onic Paroxysmal atrial fibrillation chronic Ischemic cardiomyopathy reso lved Abdominal pain resolved SILKE (acute kidney injury) re solved CHF exacerbation resolved Diverticulitis resolved Hypoxia resolved Bilateral carotid bruits acu te 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 Essential (primary) hypertension chronic History of implantable cardiac defibrillator (ICD) Jan chronic HLD (hyperlipidemia) chronic Paroxysmal atrial fibrillation chronic Ischemic cardiomyopathy reso lved Chronic systolic (congestive) heart failure chronic History of implantable cardiac defibrillator (ICD) Jan chronic Left bundle branch block chr onic Paroxysmal atrial fibrillation chronic Ischemic cardiomyopathy reso lved 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 Chronic systolic (congestive) heart failure chronic Essential (primary) hypertension chronic History of implantable cardiac defibrillator (ICD) Jan chronic HLD (hyperlipidemia) chronic Paroxysmal atrial fibrillation chronic Ischemic cardiomyopathy reso lved Chronic systolic (congestive) heart failure chronic History of implantable cardiac defibrillator (ICD) Jan chronic Left bundle branch block chr onic Paroxysmal atrial fibrillation chronic Ischemic cardiomyopathy reso lved Bilateral carotid bruits acu te 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 Chronic systolic (congestive) heart failure chronic Essential (primary) hypertension chronic History of implantable cardiac defibrillator (ICD) Jan chronic HLD (hyperlipidemia) chronic Paroxysmal atrial fibrillation chronic Ischemic cardiomyopathy reso lved [facility] Work Phone: Discharge summary Author Vineet Wright [facility] March 08, 2023 11:25am Note Date/Time March 08, 2023 11:1 8am [facility] Medical Records Department [address] [place] [address] Emergency Department Summary 03/08/23 MR#: [id number] Acct: [id number] Name: RACHNA RECINOS Rep #:[id number] : 1940 82 From: Vineet Wright MD PCP: Dr. Corin Hernandez MD Status:REG ER Location: ED HPI History of Present Illness Chief Complaint: Dizziness Informant: patient Narrative Narrative: 82-year-old male states he felt dizzy this morning. It was relatively brief, and he states he has this "all the time", saying that it feels like lightheadedness, but then he also states that it also feels like he is moving a bit. Today it was random and started while he was sitting. He does not recall triggering this or any other episode with a head movement, position change, or anything else specific. He is never passed out from it. He did not fall today. He came to the ED out of concern because he checked his blood pressure when this occurred, and it was 90 systolic which is very low for him. States he has been drinking fluids lately like usual. He recently was diagnosedwith diverticulitis, has been taking an antibiotic, today is his last day of it,all of that is better but he has had some diarrhea, less than 5 bouts per day noblood or melena. [facility] Medical History 65 years of age or older Anemia Atherosclerotic heart disease 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 Atrial fibrillation Bacterial endocarditis Bilateral carotid bruits Cardiac arrest with ventricular fibrillation (06/2015) Cardiology follow-up encounter Carotid stenosis, left Chronic kidney disease (CKD) Chronic systolic (congestive) heart failure CKD (chronic kidney disease) stage 3, GFR 30-59 ml/min Congestive heart failure (CHF) COPD (chronic obstructive pulmonary disease) COVID-19 (06/01/21) CPAP (continuous positive airway pressure) dependence Dark stools Diabetes Dietary restriction Dizziness Elevated LFTs Essential (primary) hypertension Former smoker History of acute bacterial endocarditis History of echocardiogram History of stress test HLD (hyperlipidemia) Hypokalemia Hypothyroidism ICD (implantable cardioverter-defibrillator) in place Infection and inflammatory reaction due to other cardiac and vascular devices, implants and grafts, initial encounter Infectious endocarditis Insulin dependent diabetes mellitus Iron deficiency Irregular heart beat Ischemic cardiomyopathy Kidney disease Kidney stones Left bundle branch block Malignant pericardial effusion Night sweats Nonrheumatic mitral (valve) prolapse Paroxysmal atrial fibrillation Postoperative atrial fibrillation Primary idiopathic hypertrophic cardiomyopathy Thalamic mass Type II diabetes mellitus Wears dentures Wears glasses Wears hearing aid Home Medications cholecalciferol (vitamin D3) 25 mcg (1,000 unit) capsule 1,000 unit PO BID supplement 05/20/18 [History Last Taken 03/20/20 19:00 1000 units] ferrous gluconate 324 mg (37.5 mg iron) tablet 325 mg PO BIDCM iron supplement 05/20/18 [History Last Taken 03/20/20 19:00 325 mg] insulin aspart U-100 100 unit/mL (3 mL) subcutaneous pen 10 units subcut BREAKFAST DM 05/20/18 [History Last Taken 03/20/20 08:00 12 units] insulin aspart U-100 100 unit/mL (3 mL) subcutaneous pen 10 units subcut DINNER DM 05/20/18 [History Last Taken 03/20/20 18:00 12 units] levothyroxine 100 mcg tablet 100 mcg PO MOTUWETHFRSA hypothyroidism 05/20/18 [History Last Taken 04/06/21] levothyroxine 100 mcg tablet 200 mcg PO JARVIS hypothyroidism 05/20/18 [History Last Taken 04/02/22] multivitamin 1 each PO DAILY supplement 05/20/18 [History Last Taken 03/20/20 08:00 1 each] omega-3 fatty acids-fish oil 300 mg-1,000 mg capsule 1 each PO DAILY supplement 05/20/18 [History Last Taken 03/20/20 08:00 1 each] tiotropium bromide 18 mcg capsule with inhalation device (Spiriva with HandiHaler) 18 mcg IH BID congestion 05/20/18 [History Last Taken 03/20/20 19:00 18 mcg] apixaban 2.5 mg tablet (Eliquis) 2.5 mg PO BID blood thinner 06/29/20 [History Last Taken 04/02/22] Handicap Parking Placard #1 ea 08/25/20 [Rx Last Taken Unknown] albuterol sulfate 90 mcg/actuation aerosol inhaler 2 puff inhalation Q4H PRN fill as courtesy until 's office open #18 grams 11/22/20 [Rx Last Taken Unknown] insulin glargine 100 unit/mL subcutaneous solution 10 unit SQ QHS DM 11/24/20 [History Last Taken Unknown] lactobacillus comb no.10 20 billion cell capsule 1 each PO BID supplement 11/24/20 [History Last Taken Unknown] ascorbic acid (vitamin C) 1,000 mg tablet 1,000 mg PO DAILY supplement 12/29/20 [History Last Taken Unknown] fluticasone propionate 50 mcg/actuation nasal spray,suspension (Flonase Allergy Relief) 2 spray intranasal DAILY congestion 12/29/20 [History Last Taken Unknown] albuterol sulfate 2.5 mg/3 mL (0.083 %) solution for nebulization 2.5 mg continuous nebulization QHS breathing 01/30/21 [History Last Taken Unknown] mometasone 200 mcg/actuation HFA aerosol inhaler (Asmanex HFA) 2 puff inhalationBID 01/19/22 [History Last Taken Unknown] magnesium oxide 200 mg PO BID supplement 02/01/22 [History Last Taken Unknown] empagliflozin 25 mg tablet (Jardiance) 25 mg PO DAILY 03/24/22 [History Last Taken Unknown] guaifenesin 600 mg tablet, extended release 12 hr (Mucinex) 600 mg PO BID 04/02/22 [History Last Taken 04/02/22] atorvastatin 10 mg tablet 10 mg PO QHS cholesterol #90 tabs 07/03/22 [Rx Last Taken Unknown] diltiazem HCl 120 mg capsule,extended release 24 hr (Cardizem CD) 120 mg PO BID this is a dose increase #180 caps 09/18/22 [Rx Last Taken Unknown] carvedilol 25 mg tablet 25 mg PO BID heart #180 tabs 10/17/22 [Rx Last Taken Unknown] omeprazole 40 mg capsule,delayed release 40 mg PO DAILY 11/28/22 [History Last Taken Unknown] spironolactone 25 mg tablet 12.5 mg PO DAILY 11/28/22 [History Last Taken Unknown] furosemide 40 mg tablet 40 mg PO .COMPLEX 02/12/23 [History Last Taken Unknown] Allergy/AdvReac Type Severity Reaction Status Date / Time latex Allergy Other Verified 03/08/23 09:03 LAURA Inhibitors AdvReac Intermediate cough Verified 03/08/23 09:03 enalapril AdvReac Intermediate Shortness Verified 03/08/23 09:03 of breath adhesive tape AdvReac rash Verified 03/08/23 09:03 azithromycin AdvReac Other Verified 03/08/23 09:03 [From Zithromax Z-Robert] levofloxacin [From Levaquin] AdvReac Other Verified 03/08/23 09:03 warfarin [From Coumadin] AdvReac bleeding Verified 03/08/23 09:03 under the skin Family History Father , age 47 from peritonitis Peritonitis Mother , age 93 CVA (cerebral vascular accident) several TIA's Surgical History Abnormal fractional flow reserve (FFR) on cardiac catheterization (02/2017) H/O coronary artery bypass surgery (04/27/17) History of appendectomy History of cardioversion (04/2017) History of implantable cardiac defibrillator (ICD) (03/17/22) History of left heart catheterization History of partial amputation of left hand Hx of bilateral cataract extraction Hx of cholecystectomy Hx of prostatectomy ICD (implantable cardioverter-defibrillator) infection Social History household members: spouse Smoking Status: Former smoker how long ago did patient quit smoking: Quit ~ 50 years prior, prior to quittingup to 4 ppd since 7/10 years old. alcohol intake: never substance use type: does not use caffeine: No what type of physical activity do you participate in: walking frequency: 5-6 times per week duration: 15-30 minutes/day seatbelt use: always do you feel safe at home: Yes ROS ROS ED Constitutional Constitutional ED: Denies chills or fever(s) Eyes Eyes: Denies change in vision or diplopia ENT ENT ED: Denies rhinorrhea or sore throat Cardiovascular Cardiovascular: Reports as per HPI and dizziness; Denies chest pain or palpitations Respiratory/Chest Respiratory/Chest: Denies cough or dyspnea Gastrointestinal Gastrointestinal: Reports diarrhea; Denies abdominal pain, nausea or vomiting Genitourinary Genitourinary ED: Denies dysuria or hematuria Musculoskeletal Musculoskeletal: Denies back pain or neck pain Integumentary Denies abscess or rash Neurologic Neurologic: Denies headache(s), paresthesias or weakness Psychiatric Psychiatric: Denies anxiety or suicidal thoughts EXAM Physical Exam Const Vital Signs: 03/08/23 09:03 03/08/23 09:39 03/08/23 10:29 Temperature 98 F Temperature Source Temporal Pulse Rate 132 H Pulse Rate [Lying] 83 Pulse Rate [Sitting (for 1 minute prior to obtaining)] 66 Pulse Rate [Standing (for 1 minute prior to obtaining)] 72 Respiratory Rate 14 Respiratory Effort Normal Non-Labored Respiratory Pattern Normal Blood Pressure 105/60 Blood Pressure [Lying] 99/62 Blood Pressure [Sitting (for 1 minute prior to obtaining)] 106/65 Blood Pressure [Standing (for 1 minute prior to obtaining)] 96/44 L Blood Pressure Mean 75 Blood Pressure Mean [Lying] 74 Blood Pressure Mean [Sitting (for 1 minute prior to obtaining)] 78 Blood Pressure Mean [Standing (for 1 minute prior to obtaining)] 61 Pulse Ox 98 Oxygen Delivery Method 03/08/23 11:12 Temperature Temperature Source Pulse Rate 79 Pulse Rate [Lying] Pulse Rate [Sitting (for 1 minute prior to obtaining)] Pulse Rate [Standing (for 1 minute prior to obtaining)] Respiratory Rate 15 Respiratory Effort Respiratory Pattern Blood Pressure 112/77 Blood Pressure [Lying] Blood Pressure [Sitting (for 1 minute prior to obtaining)] Blood Pressure [Standing (for 1 minute prior to obtaining)] Blood Pressure Mean 88 Blood Pressure Mean [Lying] Blood Pressure Mean [Sitting (for 1 minute prior to obtaining)] Blood Pressure Mean [Standing (for 1 minute prior to obtaining)] Pulse Ox 98 Oxygen Delivery Method Room Air Positive well nourished and well developed General Appearance ED: well developed and NAD HEENT Reports TM's clear and moist mucous membranes normocephalic and atraumatic Tympanic Membrane ED: Yes TM's clear Eyes PERRL and EOMs intact bilaterally Eyes Narrative: No pathologic nystagmus Neck full ROM and supple Resp normal respiratory effort and clear to auscultation bilaterally Cardio no murmurs Rate: Negative for tachycardic Rhythm: abnormal rhythm irregularly irregular GI non-tender and non-distended Auscultation: normoactive bowel sounds Palpation: soft Back/Spine no CVA tenderness General Back: other FROM Extremity normal to inspection General Extremety ED: Negative for edema, pulses abnormal or tenderness General Extremity: Negative for edema or pulses abnormal Neuro oriented x3, CN's II-XII intact bilaterally and no sensory deficits noted Sensorium / Orientation: awake and alert Motor Exam: strength 5/5 throughout Psych mental status grossly normal Skin no rashes or lesions noted and no wounds MDM MDM MDM Narrative Medical decision making narrative: Patient does have chronic kidney disease, baseline looks like it is around 1.7- 1.8 creatinine, today it is 2.29, his BUN is 39 little higher than usual as well. His orthostatics were negative, he did not get dizzy/lightheaded when he stood up, but his blood pressure was not as low as it was at home. After some IV fluids while we were working him up, his blood pressure is 112 systolic and he feels fine. I do not think he needs further emergent testing right now, there is no suspicion here for GI bleeding, I do not think this is central vertigo, it is certainly possible that his dizziness is vertiginous, if so it ismore likely to be peripheral given that he has had it chronically and episodically with very brief symptoms and no other neurologic deficits such as diplopia or other vision abnormalities. It appears that he is on furosemide I would hold that for a couple days, he has a doctor's appointment tomorrow, I encouraged him to drink plenty of fluids in the meantime. He is comfortable with that plan. Lab Data Attestation: I reviewed the patient's lab results. Labs: Laboratory Results - last 24 hr 03/08/23 09:50 WBC 8.4 RBC 3.72 L Hgb 11.5 L Hct 36.6 L MCV 98.4 H MCH 30.9 MCHC 31.4 L RDW Std Deviation 52.7 H RDW Coeff of Harrison 14.7 H Plt Count 178 MPV 10.0 Immature Gran % (Auto) 0.700 Neut % (Auto) 73.9 H Lymph % (Auto) 14.6 L [place] % (Auto) 8.6 Eos % (Auto) 1.7 Baso % (Auto) 0.5 Absolute Neuts (auto) 6.2 Absolute Lymphs (auto) 1.23 Nucleated RBC % 0 Sodium 141 Potassium 4.2 Chloride 112 H Carbon Dioxide 20.0 L Anion Gap 9 BUN 39 H Creatinine 2.29 H Estim Creat Clear Calc 27.92 Est GFR (MDRD) Af Amer 35 L Est GFR (MDRD) Non-Af 29 L BUN/Creatinine Ratio 17.0 Glucose 179 H Calcium 8.5 Rhythm Strip Rhythm Strip: A-fib Rate: 90 Ectopy: None EKG Initial EKG: Attestation: I personally reviewed and interpreted this EKG as follows: Interpretation: No Acute Injury Pattern, Atrial Fibrillation and LBBB Prior EKG tracings: available for review Prior: Unchanged Discharge Plan Triage Chief Complaint: Dizziness ED Provider: Vineet Wright Dx/Rx/DC Orders Clinical Impression: Dizziness, Chronic kidney disease (CKD), SILKE (acute kidney injury) Instructions: ED Chronic Kidney Disease (CKD) Prescriptions: Continued Eliquis 2.5 mg tablet 2.5 mg PO BID Patient Comments: pt states per Dr Antony's instructions, will stop Eliquis 48hrs prior to surgery on 04/06/21 fluticasone propionate [Flonase Allergy Relief] 50 mcg/actuation spray,suspension 2 spray intranasal DAILY Rx Instructions: administer into each nostril omeprazole 40 mg capsule,delayed release(DR/EC) 40 mg PO DAILY spironolactone 25 mg tablet 12.5 mg PO DAILY Asmanex HFA 200 mcg/actuation HFA aerosol inhaler 2 puff inhalation BID Jardiance 25 mg tablet 25 mg PO DAILY Rx Instructions: take 1/2 tab daily multivitamin 1 EACH tablet 1 each PO DAILY levothyroxine 100 MCG tablet 100 mcg PO MOTUWETHFRSA levothyroxine 100 MCG tablet 200 mcg PO JARVIS cholecalciferol (vitamin D3) 1,000 UNIT capsule 1,000 unit PO BID insulin aspart U-100 100 UNITS/ML insulin pen 10 units SC BREAKFAST Rx Instructions: SSI insulin aspart U-100 100 UNITS/ML insulin pen 10 units SC DINNER Rx Instructions: SSI Spiriva with HandiHaler 18 MCG capsule, w/inhalation device 18 mcg IH BID omega-3 fatty acids-fish oil 1 EACH capsule 1 each PO DAILY ferrous gluconate 325 MG tablet 325 mg PO BIDCM ascorbic acid (vitamin C) 1,000 mg tablet 1,000 mg PO DAILY insulin glargine 100 UNIT/ML solution 10 unit SQ QHS Rx Instructions: SSI lactobacillus comb no.10 1 EACH capsule 1 each PO BID albuterol sulfate 2.5 mg /3 mL (0.083 %) solution for nebulization 2.5 mg continuous nebulization QHS Patient Comments: USE 1 VIAL IN NEBULIZER AT BEDTIME guaifenesin [Mucinex] 600 mg Tablet Extended Release 12hr 600 mg PO BID (DME) Handicap Parking Placard See Rx Instructions .Route .MEDSUPPLY Qty: 1 0RF Rx Instructions: As directed albuterol sulfate 90 mcg/actuation HFA aerosol inhaler 2 puff INHALATION Q4H PRN (Reason: fill as courtesy until 's officeopen) Qty: 18 0RF magnesium oxide 400 mg magnesium capsule 200 mg PO BID atorvastatin 10 mg tablet 10 mg PO QHS Qty: 90 3RF diltiazem HCl [Cardizem CD] 120 mg capsule,extended release 24hr 120 mg PO BID Qty: 180 3RF carvedilol 25 mg tablet 25 mg PO BID Qty: 180 3RF Held furosemide 40 mg tablet 40 mg PO .COMPLEX Hold Instructions: Resume on 03/10/23. Rx Instructions: 40 mg orally daily X 3 days for edema; Primary Care Provider: Corin Hernandez Referrals: Corin Hernandez MD [Primary Care Provider] - Katherin Soriano MD [Med Staff - Mainstreaming Facilitator] - Keep [facility] appointment Disposition Disposition: Home, Self Care What to do if you have Problems For any increased pain, shortness of breath, bleeding, nausea or vomiting, chestpain, or any unexpected problems, contact your Primary Care Provider. Call [facility] ([phone]) or report to the closest Emergency Room. Call 911 if necessary. 03/08/23 [id number] <Electronically signed by Vineet Wright MD> Cosigner Signature (if applicable): CC: Dr. Corin Hernandez MD; Dr. Katherin Soriano MD ~ Signed [facility] Work Phone: Discharge summary Author Vineet Wright [facility] December 25, 2023 1:04am Note Date/Time December 25, 2023 12: 27am [facility] Medical Records Department [address] [place] [address] Emergency Department Summary 12/25/23 MR#: [id number] Acct: [id number] Name: RACHNA RECINOS Rep #:[id number] : 1940 83 From: Vineet Wright MD PCP: Dr. Katherin Soriano MD Status:REG ER Location: ED HPI History of Present Illness Chief Complaint: Hypoglycemia Informant: patient and spouse/S.O. Narrative Narrative: 83-year-old diabetic male brought by his for hypoglycemia in the 40s. He has had his usual doses of insulin earlier in the day, but before dinner he had his usual 5 units, ate dinner and then they checked it sometime afterwards and it was low. He has been asymptomatic. gave him some glucose tablets for that number, however she looked at the bottles afterwards and realized that theywere , one of them was from 2012 and the other was from 2022. She is concerned that they did not work. He had chicken and some pasta for dinner. Hestates after this a little while, he checked his blood sugar with his Dexcom andit read 62 they did a fingerstick and it was 64. Right now he is 72 according to his Dexcom and he feels fine. No recent illness. No vomiting. PFSH PFSH Medical History 65 years of age or older Anemia Atherosclerotic heart disease 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 Atrial fibrillation Bacterial endocarditis Bilateral carotid bruits Cardiac arrest with ventricular fibrillation (06/2015) Cardiology follow-up encounter Carotid stenosis, left Chronic kidney disease (CKD) Chronic systolic (congestive) heart failure CKD (chronic kidney disease) stage 3, GFR 30-59 ml/min Congestive heart failure (CHF) COPD (chronic obstructive pulmonary disease) COVID-19 (06/01/21) CPAP (continuous positive airway pressure) dependence Dark stools Diabetes Dietary restriction Dizziness Elevated LFTs Essential (primary) hypertension Former smoker History of acute bacterial endocarditis History of echocardiogram History of stress test HLD (hyperlipidemia) Hypokalemia Hypothyroidism ICD (implantable cardioverter-defibrillator) in place Infection and inflammatory reaction due to other cardiac and vascular devices, implants and grafts, initial encounter Infectious endocarditis Insulin dependent diabetes mellitus Iron deficiency Irregular heart beat Ischemic cardiomyopathy Kidney disease Kidney stones Left bundle branch block Malignant pericardial effusion Night sweats Nonrheumatic mitral (valve) prolapse Paroxysmal atrial fibrillation Postoperative atrial fibrillation Primary idiopathic hypertrophic cardiomyopathy Spinal stenosis at L4-L5 level Thalamic mass Type II diabetes mellitus Wears dentures Wears glasses Wears hearing aid Home Medications cholecalciferol (vitamin D3) 25 mcg (1,000 unit) capsule 1,000 unit PO BID supplement 05/20/18 [History Last Taken 03/20/20 19:00 1000 units] ferrous gluconate 324 mg (37.5 mg iron) tablet 325 mg PO DAILY iron supplement 05/20/18 [History Last Taken 03/20/20 19:00 325 mg] insulin aspart U-100 100 unit/mL (3 mL) subcutaneous pen 5 unit subcut DINNER DM05/20/18 [History Last Taken 03/20/20 18:00 12 units] insulin aspart U-100 100 unit/mL (3 mL) subcutaneous pen 10 units subcut BREAKFAST DM 05/20/18 [History Last Taken 03/20/20 08:00 12 units] multivitamin 1 each PO DAILY supplement 05/20/18 [History Last Taken 03/20/20 08:00 1 each] omega-3 fatty acids-fish oil 300 mg-1,000 mg capsule 1 each PO DAILY supplement 05/20/18 [History Last Taken 03/20/20 08:00 1 each] apixaban 2.5 mg tablet (Eliquis) 2.5 mg PO BID blood thinner 06/29/20 [History Last Taken 04/02/22] Handicap Parking Placard #1 ea 08/25/20 [Rx Last Taken Unknown] albuterol sulfate 90 mcg/actuation aerosol inhaler 2 puff inhalation Q4H PRN fill as courtesy until 's office open #18 grams 11/22/20 [Rx Last Taken Unknown] insulin glargine 100 unit/mL subcutaneous solution 10 unit SQ QHS DM 11/24/20 [History Last Taken Unknown] lactobacillus comb no.10 20 billion cell capsule 1 each PO DAILY supplement 11/24/20 [History Last Taken Unknown] ascorbic acid (vitamin C) 1,000 mg tablet 1,000 mg PO DAILY supplement 12/29/20 [History Last Taken Unknown] fluticasone propionate 50 mcg/actuation nasal spray,suspension (Flonase Allergy Relief) 2 spray intranasal DAILY congestion 12/29/20 [History Last Taken Unknown] albuterol sulfate 2.5 mg/3 mL (0.083 %) solution for nebulization 2.5 mg continuous nebulization QHS breathing 01/30/21 [History Last Taken Unknown] mometasone 200 mcg/actuation HFA aerosol inhaler (Asmanex HFA) 2 puff inhalationBID 01/19/22 [History Last Taken Unknown] empagliflozin 25 mg tablet (Jardiance) 12.5 mg PO DAILY 03/24/22 [History Last Taken Unknown] guaifenesin 600 mg tablet, extended release 12 hr (Mucinex) 600 mg PO BID 04/02/22 [History Last Taken 04/02/22] spironolactone 25 mg tablet 25 mg PO DAILY Dose increased from 12.5 mg to 25 mg daily #90 tabs 04/04/23 [Rx Last Taken Unknown] azelastine 137 mcg (0.1 %) nasal spray aerosol 1 spray intranasal QHS 05/22/23 [History Last Taken Unknown] atorvastatin 20 mg tablet 20 mg PO QHS #90 tabs 07/09/23 [Rx Last Taken Unknown] carvedilol 25 mg tablet 25 mg PO BID Patient going out of state for 3 months #180 tabs 09/04/23 [Rx Last Taken Unknown] diltiazem HCl 120 mg capsule,extended release 24 hr (Cardizem CD) 120 mg PO BID Patient going out of state for 3 months #180 caps 09/04/23 [Rx Last Taken Unknown] omeprazole 40 mg capsule,delayed release 40 mg PO DAILY Patient going out of state for 3 months #90 caps 09/04/23 [Rx Last Taken Unknown] bevacizumab 25 mg/mL intravenous solution (Avastin) 12/25/23 [History Last Taken Unknown] levothyroxine 125 mcg tablet 125 mcg PO DAILY 12/25/23 [History Last Taken Unknown] tiotropium 2.5 mcg-olodaterol 2.5 mcg/actuation mist for inhalation (Stiolto Respimat) 2 puff inhalation DAILY 12/25/23 [History Last Taken Unknown] vitamins A,C,R-fjqi-xwrtkw 2,148 mcg-113 mg-45 mg-17.4 mg tablet (Eye Multivitamin) 2 tab PO BID 12/25/23 [History Last Taken Unknown] Allergy/AdvReac Type Severity Reaction Status Date / Time latex Allergy Other Verified 12/25/23 00:10 LAURA Inhibitors AdvReac Intermediate cough Verified 12/25/23 00:10 enalapril AdvReac Intermediate Shortness Verified 12/25/23 00:10 of breath adhesive tape AdvReac rash Verified 12/25/23 00:10 warfarin [From Coumadin] AdvReac bleeding Verified 12/25/23 00:10 under the skin Family History Father , age 47 from peritonitis Peritonitis Mother , age 93 CVA (cerebral vascular accident) several TIA's Surgical History Abnormal fractional flow reserve (FFR) on cardiac catheterization (02/2017) H/O coronary artery bypass surgery (04/27/17) History of appendectomy History of cardioversion (04/2017) History of implantable cardiac defibrillator (ICD) (03/17/22) History of left heart catheterization History of partial amputation of left hand Hx of bilateral cataract extraction Hx of cholecystectomy Hx of prostatectomy ICD (implantable cardioverter-defibrillator) infection Social History household members: spouse Smoking Status: Former smoker how long ago did patient quit smoking: Quit ~ 50 years prior, prior to quittingup to 4 ppd since [age] years old. alcohol intake: never substance use type: does not use caffeine: No what type of physical activity do you participate in: walking frequency: 5-6 times per week duration: 15-30 minutes/day seatbelt use: always do you feel safe at home: Yes ROS ROS ED Constitutional Constitutional ED: Denies chills or fever(s) Eyes Eyes: Denies change in vision or diplopia ENT ENT ED: Denies rhinorrhea or sore throat Cardiovascular Cardiovascular: Denies chest pain or palpitations Respiratory/Chest Respiratory/Chest: Denies cough or dyspnea Gastrointestinal Gastrointestinal: Denies abdominal pain, diarrhea, nausea or vomiting Genitourinary Genitourinary ED: Denies dysuria or hematuria Musculoskeletal Musculoskeletal: Denies back pain or neck pain Integumentary Denies abscess or rash Neurologic Neurologic: Denies headache(s), paresthesias or weakness Psychiatric Psychiatric: Denies anxiety or suicidal thoughts EXAM Physical Exam Const Vital Signs: 12/25/23 00:10 12/25/23 00:45 Temperature 97 F L Temperature Source Temporal Pulse Rate 72 Respiratory Rate 20 H Respiratory Pattern Normal Blood Pressure 202/68 H Blood Pressure Mean 112 Pulse Ox 99 Oxygen Delivery Method Room Air Positive well nourished and well developed General Appearance ED: well developed and NAD HEENT Reports moist mucous membranes normocephalic and atraumatic Eyes PERRL and EOMs intact bilaterally Neck full ROM and supple Resp normal respiratory effort and clear to auscultation bilaterally Cardio regular rate and regular rhythm Heart Sounds: murmur systolic I/ soft Peripheral Pulses: pulses 2+ throughout GI non-tender and non-distended Auscultation: normoactive bowel sounds Palpation: soft Back/Spine no CVA tenderness General Back: other FROM Extremity normal to inspection General Extremety ED: Negative for edema, pulses abnormal or tenderness General Extremity: Negative for edema or pulses abnormal Neuro oriented x3, CN's II-XII intact bilaterally and no sensory deficits noted Sensorium / Orientation: awake and alert Motor Exam: strength 5/5 throughout Skin no rashes or lesions noted and no wounds MDM MDM MDM Narrative Medical decision making narrative: Patient has a benign exam, his vital signs are noted a little hypertensive initially. I do not think he needs emergent workup for this hypoglycemia. My suspicion is that he did not eat a lot of simple sugars with dinner and this wasmore complex carbohydrates in the pasta, and it took him some time to come back up but he was not low enough that he felt symptomatic which is good. We did a fingerstick as well, it is 85 and his Dexcom is reading 82, so I think the measurements from the Dexcom are reliable. A little later it was 86 after he had been here for an hour, blood pressure reading 171. He is not sure if he hastaken his blood pressure medicines for the night. It is 1 AM and she and he arecomfortable going home on comfortable letting them, if his medications were already taken for the night as blood pressure is high, he should contact his doctor in the morning but he is asymptomatic right now so I am not concerned about treating his number emergently. Lab Data Attestation: I reviewed the patient's lab results. Labs: Laboratory Results - last 24 hr 12/25/23 00:28 POC Glucose 83 Discharge Plan Triage Chief Complaint: Hypoglycemia ED Provider: Vineet Wright Dx/Rx/DC Orders Clinical Impression: Hypoglycemia associated with type 2 diabetes mellitus Instructions: ED Diabetic Insulin Reaction Prescriptions: No Action Eliquis 2.5 mg tablet 2.5 mg PO BID Patient Comments: pt states per Dr Antony's instructions, will stop Eliquis 48hrs prior to surgery on 04/06/21 fluticasone propionate [Flonase Allergy Relief] 50 mcg/actuation spray,suspension 2 spray intranasal DAILY Rx Instructions: administer into each nostril Asmanex HFA 200 mcg/actuation HFA aerosol inhaler 2 puff inhalation BID Jardiance 25 mg tablet 12.5 mg PO DAILY Rx Instructions: take 1/2 tab daily multivitamin 1 EACH tablet 1 each PO DAILY cholecalciferol (vitamin D3) 1,000 UNIT capsule 1,000 unit PO BID insulin aspart U-100 100 UNITS/ML insulin pen 10 units SC BREAKFAST Rx Instructions: SSI insulin aspart U-100 100 UNITS/ML insulin pen 5 unit SC DINNER Rx Instructions: SSI omega-3 fatty acids-fish oil 1 EACH capsule 1 each PO DAILY ferrous gluconate 325 MG tablet 325 mg PO DAILY ascorbic acid (vitamin C) 1,000 mg tablet 1,000 mg PO DAILY insulin glargine 100 UNIT/ML solution 10 unit SQ QHS Rx Instructions: SSI lactobacillus comb no.10 1 EACH capsule 1 each PO DAILY albuterol sulfate 2.5 mg /3 mL (0.083 %) solution for nebulization 2.5 mg continuous nebulization QHS Patient Comments: USE 1 VIAL IN NEBULIZER AT BEDTIME guaifenesin [Mucinex] 600 mg Tablet Extended Release 12hr 600 mg PO BID azelastine 137 mcg (0.1 %) aerosol,spray 1 spray INTRANASAL QHS Patient Comments: USE 1 TO 2 SPRAY(S) IN EACH NOSTRIL TWICE DAILY Stiolto Respimat 2.5-2.5 mcg/actuation mist 2 puff inhalation DAILY levothyroxine 125 mcg tablet 125 mcg PO DAILY Eye Multivitamin 2,148 mcg-113 mg-45 mg-17.4mg tablet 2 tab PO BID Rx Instructions: administer with AM and PM meals Avastin 25 mg/mL solution (DME) Handicap Parking Placard See Rx Instructions .Route .MEDSUPPLY Qty: 1 0RF Rx Instructions: As directed albuterol sulfate 90 mcg/actuation HFA aerosol inhaler 2 puff INHALATION Q4H PRN (Reason: fill as courtesy until 's office open) Qty: 18 0RF spironolactone 25 mg tablet 25 mg PO DAILY Qty: 90 3RF atorvastatin 20 mg tablet 20 mg PO QHS Qty: 90 3RF omeprazole 40 mg capsule,delayed release(DR/EC) 40 mg PO DAILY Qty: 90 3RF carvedilol 25 mg tablet 25 mg PO BID Qty: 180 3RF diltiazem HCl [Cardizem CD] 120 mg capsule,extended release 24hr 120 mg PO BID Qty: 180 3RF Primary Care Provider: Katherin Soriano Referrals: Katherin Soriano MD [Primary Care Provider] - As Needed Disposition Disposition: Home, Self Care What to do if you have Problems For any increased pain, shortness of breath, bleeding, nausea or vomiting, chestpain, or any unexpected problems, contact your Primary Care Provider. Call [facility] ([phone]) or report to the closest Emergency Room. Call 911 if necessary. 12/25/23 0104 <Electronically signed by Vineet Wright MD> Cosigner Signature (if applicable): CC: Dr. Katherin Soriano MD ~ Signed [facility] Work Phone: Discharge summary Author Gavi Crandall [facility] Note Date/Time November 10, 2024 7:5 8am [facility] System Medical Records Department [address] [place] [address] Emergency Department Summary 11/10/24 MR#: [id number] Acct: [id number] Name: RACHNA RECINOS Rep #:[id number] : 1940 84 From: Gavi Crandall DO PCP: Dr. Katherin Soriano MD Status:REG ER Location: ED ADDENDUM by Dr. Romeo Medeiros DO on 11/10/24 at 0757 Patient was turned over to me by Dr. Terrell@ 0715 Brief history: 84-year-old male presents with viral URI-like symptoms Physical exam: No acute respiratory distress. Patient ambulated and maintained saturation 93% which is appropriate given history of COPD Labs and images reviewed (if obtained): Chest x-ray was read reviewed personally myself showed no evidence of obvious focal pneumonia Influenza A positive Likely etiology influenza A. Patient was not hypoxic. He is not within the window for Tamiflu. He was encouraged to take Tylenol and ibuprofen. Given prednisone prescription. Strict return precautions were discussed. PCP follow-up was arranged. MDM/plan: Discharge home Impression: 1. Viral URI 2. Influenza A 3 history of COPD Disposition: Discharge home 11/10/24 0757<Electronically signed by Romeo Medeiros DO> Cosigner Signature (if applicable): cc: Dr. Katherin Soriano MD ~* Signed HPI History of Present Illness Chief Complaint: General Illness Detail of Chief Complaint: Cough Informant: patient Narrative Narrative: Patient presents with cough and some mild shortness of breath that started 3 to 4 days ago. Cough mostly nonproductive. He said no fever. He has a history ofCOPD and obstructive sleep apnea. Last 2 nights he has had a sleep sitting up. Denies weight gain or leg edema. Denies sick contacts. Denies chest pain. [facility] Medical History Spinal stenosis at L4-L5 level CKD (chronic kidney disease) stage 3, GFR 30-59 ml/min Diabetes Kidney stones Kidney disease Former smoker Atrial fibrillation Irregular heart beat ICD (implantable cardioverter-defibrillator) in place Congestive heart failure (CHF) 65 years of age or older COVID-19 (06/01/21) Dizziness Wears dentures Wears glasses Wears hearing aid Insulin dependent diabetes mellitus Dietary restriction CPAP (continuous positive airway pressure) dependence COPD (chronic obstructive pulmonary disease) Cardiology follow-up encounter History of stress test History of echocardiogram Carotid stenosis, left Dark stools Chronic kidney disease (CKD) Bacterial endocarditis Postoperative atrial fibrillation Paroxysmal atrial fibrillation Elevated LFTs Ischemic cardiomyopathy Cardiac arrest with ventricular fibrillation (06/2015) Essential (primary) hypertension Chronic systolic (congestive) heart failure History of acute bacterial endocarditis Nonrheumatic mitral (valve) prolapse Hypokalemia 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 Left bundle branch block Primary idiopathic hypertrophic cardiomyopathy Night sweats Infection and inflammatory reaction due to other cardiac and vascular devices, implants and grafts, initial encounter Anemia Iron deficiency Bilateral carotid bruits Thalamic mass Infectious endocarditis Type II diabetes mellitus Hypothyroidism HLD (hyperlipidemia) Home Medications ?Medication ?Instructions ?Recorded ?Last Taken ?Type cholecalciferol (vitamin D3) 25 1,000 unit PO BID supp lement 05/20/18 03/20/20 19:00 History mcg (1,000 unit) capsule 1000 units ferrous gluconate 324 mg (37.5 mg 325 mg PO DAILY iron supplement 05/20/18 03/20/20 19:00 History iron) tablet 325 mg insulin aspart U-100 100 unit/mL 5 unit subcut DINNER DM 05/20/18 03/20/20 18:00 History (3 mL) subcutaneous pen 12 units insulin aspart U-100 100 unit/mL 10 units subcut BREAK FAST DM 05/20/18 03/20/20 08:00 History (3 mL) subcutaneous pen 12 units multivitamin 1 each PO DAILY supplement 0 05/20/18 03/20/20 08:00 History 1 each apixaban 2.5 mg tablet (Eliquis) 2.5 mg PO BID blood t hinner 06/29/20 04/02/22 History Handicap Parking Placard #1 ea 08/25/20 Unknown Rx albuterol sulfate 90 mcg/actuation 2 puff inhalation Q 4H PRN fill as 11/22/20 Unknown Rx aerosol inhaler courtesy until 's office open #18 grams insulin glargine 100 unit/mL 10 unit SQ QHS DM 1 Unknown History subcutaneous solution lactobacillus comb no.10 20 1 each PO DAILY supplement 11/24/20 Unknown History billion cell capsule ascorbic acid (vitamin C) 1,000 mg 1,000 mg PO DAILY s upplement 12/29/20 Unknown History tablet fluticasone propionate 50 2 spray intranasal DAILY con gestion 12/29/20 Unknown History mcg/actuation nasal spray,suspension (Flonase Allergy Relief) albuterol sulfate 2.5 mg/3 mL 2.5 mg continuous nebuli zation QHS 01/30/21 Unknown History (0.083 %) solution for nebulization breathing empagliflozin 25 mg tablet 12.5 mg PO DAILY 03/24/22 U nknown History (Jardiance) guaifenesin 600 mg tablet, 600 mg PO BID 04/02/22 08/0 03/17 History extended release 12 hr (Mucinex) azelastine 137 mcg (0.1 %) nasal 1 spray intranasal QH S 05/22/23 Unknown History spray bevacizumab 25 mg/mL intravenous 12/25/23 Unknown His tory solution (Avastin) levothyroxine 125 mcg tablet 125 mcg PO DAILY 12/25/23 Unknown History tiotropium 2.5 mcg-olodaterol 2.5 2 puff inhalation DA MAGDA 12/25/23 Unknown History mcg/actuation mist for inhalation (Stiolto Respimat) vitamins A,C,Y-[id number]-[id number] 2,148 2 tab PO BID 12/25/23 Unknown History mcg-113 mg-45 mg-17.4 mg tablet (Eye Multivitamin) mometasone 200 mcg/actuation HFA 2 puff inhalation TRI LY 03/19/24 Unknown History aerosol inhaler (Asmanex HFA) quercetin 500 mg capsule mg PO BID 03/19/24 Unknown H istory atorvastatin 20 mg tablet 20 mg PO QHS #90 tabs Unknown Rx carvedilol 25 mg tablet 25 mg PO BID Patient going o ut of 09/17/24 Unknown Rx state for 3 months #180 tabs coffee extract 100 mg-phosphatidyl cap PO 09/17/24 Unk nown History serine 100 mg capsule (Neuriva Original) diltiazem HCl 120 mg 120 mg PO BID Patient going out of 09/17/24 Unknown Rx capsule,extended release 24 hr state for 3 months #180 caps (Cardizem CD) omeprazole 40 mg capsule,delayed 40 mg PO DAILY Patien t going out 09/17/24 Unknown Rx release of state for 3 months #90 ca ps prednisone 20 mg tablet 20 mg PO BID #10 tabs Unknown Rx Allergy/AdvReac Type Severity Reaction Status Date / Time latex Allergy Other Verified 11/10/24 05:28 LAURA Inhibitors AdvReac Intermediate cough Verified 11/10/24 05:28 enalapril AdvReac Intermediate Shortness Verified 11/10/24 05:28 of breath adhesive tape AdvReac rash Verified 11/10/24 05:28 warfarin (From Coumadin) AdvReac bleeding Verified 11/10/24 05:28 under the skin Family History Father , age 47 from peritonitis Peritonitis Mother , age 93 CVA (cerebral vascular accident) several TIA's Surgical History History of appendectomy History of partial amputation of left hand Hx of bilateral cataract extraction Hx of prostatectomy Hx of cholecystectomy Abnormal fractional flow reserve (FFR) on cardiac catheterization (02/2017) History of cardioversion (04/2017) History of implantable cardiac defibrillator (ICD) (03/17/22) H/O coronary artery bypass surgery (04/27/17) History of left heart catheterization ICD (implantable cardioverter-defibrillator) infection Social History household members: spouse Smoking Status: Former smoker how long ago did patient quit smoking: Quit ~ 50 years prior, prior to quittingup to 4 ppd since 7/10 years old. alcohol intake: never substance use type: does not use caffeine: No what type of physical activity do you participate in: walking frequency: 5-6 times per week duration: 15-30 minutes/day seatbelt use: always do you feel safe at home: Yes ROS ROS ED Review of Systems ROS Unobtainable: other Constitutional Constitutional ED: Reports lethargy; Denies chills, fever(s), sweats or weight loss Eyes Eyes: Denies blurry vision, change in vision or diplopia ENT ENT ED: Denies rhinorrhea or sore throat Cardiovascular Cardiovascular: Denies chest pain, orthopnea or racing heartbeat Respiratory/Chest Respiratory/Chest: Reports cough, dyspnea and dyspnea on exertion; Denies orthopnea or sputum Gastrointestinal Gastrointestinal: Denies abdominal pain, diarrhea, nausea or vomiting Genitourinary Genitourinary ED: Denies dysuria, hematuria or urinary frequency Musculoskeletal Musculoskeletal: Denies arthralgias, back pain, myalgias or neck pain Integumentary Denies abscess, Abrasions or rash Neurologic Neurologic: Denies headache(s) or weakness Psychiatric Psychiatric: Denies anxiety, depression or suicidal thoughts Endocrine Endocrinology: Denies polydipsia, polyphagia or polyuria Hematologic/Lymphatic Hematologic/Lymphatic: Denies easy bleeding, easy bruising or lymphadenopathy Allergic/Immunologic Allergic/Immunologic ED: Denies mouth swelling, tongue swelling or urticaria EXAM Physical Exam Const Vital Signs: 11/10/24 05:31 11/10/24 05:31 11/10/24 06:30 Temperature 98.6 F Temperature Source Oral Pulse Rate 82 Respiratory Rate 18 Respiratory Effort Normal Respiratory Pattern Normal Blood Pressure 158/70 H Blood Pressure Mean 99 Pulse Ox 95 95 Oxygen Delivery Method Room Air Room Air 11/10/24 06:30 Temperature Temperature Source Pulse Rate 85 Respiratory Rate 16 Respiratory Effort Respiratory Pattern Blood Pressure Blood Pressure Mean Pulse Ox Oxygen Delivery Method Positive well nourished and well developed General Appearance ED: well developed and NAD HEENT Reports TM's clear and moist mucous membranes normocephalic and atraumatic; Negative for trauma or tenderness Tympanic Membrane ED: Yes TM's clear Eyes PERRL and EOMs intact bilaterally General Eye ED: Negative for pale conjunctiva or scleral icterus Neck no lymphadenopathy, supple and no JVD General: Negative for tenderness Chest Wall inspection of chest normal and palpation of chest normal Chest: Negative for tenderness Resp normal respiratory effort and clear to auscultation bilaterally Resp Narrative: Good aeration bilaterally. Few expiratory wheezes noted bilaterally. No significant tachypnea. No scientist propagator muscle use or retractions. Effort and Inspection: Negative for respiratory distress or pain with movement Auscultation: wheezes; Negative for rhonchi or diminished lung sounds Cardio regular rate, regular rhythm, S1 normal heart sound, S2 normal heart sound and no murmurs Peripheral Pulses: pulses 2+ throughout GI normal to inspection, nondistended, normoactive bowel sounds, soft to palpation,non-tender, non-distended and no masses Back/Spine no CVA tenderness and no thoracic nor lumbar tenderness Extremity normal to inspection General Extremety ED: Negative for edema General Extremity: Negative for edema Neuro oriented x3, CN's II-XII intact bilaterally, no sensory deficits noted and gait normal Sensorium / Orientation: awake, alert, oriented to person, oriented to place andoriented to time Motor Exam: strength 5/5 throughout and strength abnormal Psych mental status grossly normal Skin no rashes or lesions noted and no wounds MDM MDM MDM Narrative Medical decision making narrative: Patient presents with cough x 3 to 4 days. Vital stable and clinically looks well. In the differential would be viral infection versus COPD exacerbation versus pneumonia. Patient was given DuoNeb aerosol. Chest x-ray obtained. COVID flu and RSV testing obtained. Care of patient turned over to morning physician awaiting x-ray result and testing for COVID flu and RSV. Lab Data Attestation: I reviewed the patient's lab results. Radiography Diagnostic Testin view chest x-ray obtained interpreted by myself as no evidence of infiltrate or pneumothorax or acute disease process. And some chronic interstitial changes. Discharge Plan Triage Chief Complaint: General Illness ED Provider: Gavi Crandall Dx/Rx/DC Orders Prescriptions: New prednisone 20 mg tablet 20 mg PO BID Qty: 10 0RF No Action Eliquis 2.5 mg tablet 2.5 mg PO BID Patient Comments: pt states per Dr Antony's instructions, will stop Eliquis 48hrs prior to surgery on 04/06/21 fluticasone propionate [Flonase Allergy Relief] 50 mcg/actuation spray,suspension 2 spray intranasal DAILY Rx Instructions: administer into each nostril Asmanex HFA 200 mcg/actuation HFA aerosol inhaler 2 puff inhalation DAILY Jardiance 25 mg tablet 12.5 mg PO DAILY Rx Instructions: take 1/2 tab daily quercetin 500 mg capsule PO BID Neuriva Original 100-100 mg capsule PO omeprazole 40 mg capsule,delayed release(DR/EC) 40 mg PO DAILY Qty: 90 3RF diltiazem HCl [Cardizem CD] 120 mg capsule,extended release 24hr 120 mg PO BID Qty: 180 3RF carvedilol 25 mg tablet 25 mg PO BID Qty: 180 3RF multivitamin 1 EACH tablet 1 each PO DAILY cholecalciferol (vitamin D3) 1,000 UNIT capsule 1,000 unit PO BID insulin aspart U-100 100 UNITS/ML insulin pen 10 units SC BREAKFAST Rx Instructions: SSI insulin aspart U-100 100 UNITS/ML insulin pen 5 unit SC DINNER Rx Instructions: SSI ferrous gluconate 325 MG tablet 325 mg PO DAILY ascorbic acid (vitamin C) 1,000 mg tablet 1,000 mg PO DAILY insulin glargine 100 UNIT/ML solution 10 unit SQ QHS Rx Instructions: SSI lactobacillus comb no.10 1 EACH capsule 1 each PO DAILY albuterol sulfate 2.5 mg /3 mL (0.083 %) solution for nebulization 2.5 mg continuous nebulization QHS Patient Comments: USE 1 VIAL IN NEBULIZER AT BEDTIME guaifenesin [Mucinex] 600 mg Tablet Extended Release 12hr 600 mg PO BID azelastine 137 mcg (0.1 %) aerosol,spray 1 spray INTRANASAL QHS Patient Comments: USE 1 TO 2 SPRAY(S) IN EACH NOSTRIL TWICE DAILY Stiolto Respimat 2.5-2.5 mcg/actuation mist 2 puff inhalation DAILY levothyroxine 125 mcg tablet 125 mcg PO DAILY Eye Multivitamin 2,148 mcg-113 mg-45 mg-17.4mg tablet 2 tab PO BID Rx Instructions: administer with AM and PM meals Avastin 25 mg/mL solution (DME) Handicap Parking Placard See Rx Instructions .Route .MEDSUPPLY Qty: 1 0RF Rx Instructions: As directed albuterol sulfate 90 mcg/actuation HFA aerosol inhaler 2 puff INHALATION Q4H PRN (Reason: fill as courtesy until 's office open) Qty: 18 0RF atorvastatin 20 mg tablet 20 mg PO QHS Qty: 90 3RF Primary Care Provider: Katherin Soriano Referrals: Katherin Soriano MD [Primary Care Provider] - Print Language: Vincentian What to do if you have Problems For any increased pain, shortness of breath, bleeding, nausea or vomiting, chestpain, or any unexpected problems, contact your Primary Care Provider. Call [facility] ([phone]) or report to the closest Emergency Room. Call 911 if necessary. 11/10/24 0711 <Electronically signed by Gavi Crandall DO> Cosigner Signature (if applicable): CC: Dr. Katherin Soriano MD ~ Signed [facility] Work Phone: Evaluation note* Diagnosis Renal calculi- Primary Calculus of kidney Controlled type 2 diabetes mellitus with diabetic nephropathy, 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 Chronic diarrhea [facility] Renal calculi Calculus of kidney [facility] Diagnosis Renal calculi Calculus of kidney Renal cyst Unspecified congenital cystic kidney disease [facility] Visit for wound check- Primary Encounter for other specified aftercare [facility] Diagnosis Onset Date Resolution Status Abdominal pain resolved SILKE (acute kidney injury) re solved CHF exacerbation resolved Diverticulitis resolved Hypoxia resolved Bilateral carotid bruits acu te 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 Essential (primary) hypertension chronic History of implantable cardi ac defibrillator (ICD) March 17, 2022 chronic HLD (hyperlipidemia) chronic Paroxysmal atrial fibrillation chronic Ischemic cardiomyopathy reso lved Chronic systolic (congestive) heart failure chronic History of implantable cardi ac defibrillator (ICD) March 17, 2022 chronic Left bundle branch block chr onic Paroxysmal atrial fibrillation chronic Ischemic cardiomyopathy reso lved 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 Chronic systolic (congestive) heart failure chronic Essential (primary) hypertension chronic History of implantable cardi ac defibrillator (ICD) March 17, 2022 chronic HLD (hyperlipidemia) chronic Paroxysmal atrial fibrillation chronic Ischemic cardiomyopathy reso lved Chronic systolic (congestive) heart failure chronic History of implantable cardi ac defibrillator (ICD) March 17, 2022 chronic Left bundle branch block chr onic Paroxysmal atrial fibrillation chronic Ischemic cardiomyopathy reso lved Bilateral carotid bruits acu te 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 Chronic systolic (congestive) heart failure chronic Essential (primary) hypertension chronic History of implantable cardi ac defibrillator (ICD) March 17, 2022 chronic HLD (hyperlipidemia) chronic Paroxysmal atrial fibrillation chronic Ischemic cardiomyopathy reso lved Bilateral carotid bruits acu te 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 Chronic systolic (congestive) heart failure chronic Essential (primary) hypertension chronic History of implantable cardi ac defibrillator (ICD) March 17, 2022 chronic HLD (hyperlipidemia) chronic Paroxysmal atrial fibrillation chronic Ischemic cardiomyopathy reso lved Diabetes acute Vertigo acute Hypertension [facility] Work Phone: Evaluation note* Diagnosis Onset Date Resolution Status Bilateral carotid bruits acu te 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 Chronic systolic (congestive) heart failure chronic Essential (primary) hypertension chronic History of implantable cardi ac defibrillator (ICD) March 17, 2022 chronic HLD (hyperlipidemia) chronic Paroxysmal atrial fibrillation chronic Ischemic cardiomyopathy reso lved Chronic systolic (congestive) heart failure chronic History of implantable cardi ac defibrillator (ICD) March 17, 2022 chronic Left bundle branch block chr onic Paroxysmal atrial fibrillation chronic Ischemic cardiomyopathy reso lved Chronic systolic (congestive) heart failure chronic History of implantable cardi ac defibrillator (ICD) March 17, 2022 chronic Left bundle branch block chr onic Paroxysmal atrial fibrillation chronic Ischemic cardiomyopathy reso lved [facility] Work Phone: Evaluation note* Diagnosis Onset Date Resolution Status Bilateral carotid bruits acu te 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 Chronic systolic (congestive) heart failure chronic Essential (primary) hypertension chronic History of implantable cardi ac defibrillator (ICD) March 17, 2022 chronic HLD (hyperlipidemia) chronic Paroxysmal atrial fibrillation chronic Ischemic cardiomyopathy reso lved Chronic systolic (congestive) heart failure chronic History of implantable cardi ac defibrillator (ICD) March 17, 2022 chronic Ischemic cardiomyopathy reso lved Chronic systolic (congestive) heart failure chronic History of implantable cardi ac defibrillator (ICD) March 17, 2022 chronic Left bundle branch block chr onic Ischemic cardiomyopathy reso lved [facility] Work Phone: Evaluation noteNo assessment information available [facility] Work Phone: Evaluation note* Diagnosis Onset Date Resolution Status Muscle strain acute [facility] Work Phone: Evaluation note* Diagnosis Onset Date Resolution Status Herniated nucleus pulposus, L3-4 left acute [facility] Work Phone: Evaluation note* Diagnosis Ischemic cardiomyopathy- Primary Other specified forms of chronic ischemic heart disease 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ailure (HCC) 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ailure 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 Presence of implantable cardioverter-defibrillator (ICD) Complete left bundle branch block (LBBB) Persistent atrial fibrillation (HCC) Atrial fibrillation At risk for stroke Other specified personal history presenting hazards to health At risk for bleeding associated with anticoagulants [facility] Diagnosis Ischemic cardiomyopathy- Primary Other specified forms of chronic ischemic heart disease 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ailure (HCC) 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ailure 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 Presence of implantable cardioverter-defibrillator (ICD) Persistent atrial fibrillation (HCC) Atrial fibrillation At risk for stroke Other specified personal history presenting hazards to health At risk for bleeding associated with anticoagulants Anticoagulant long-term use Long-term (current) use of anticoagulants Complete left bundle branch block (LBBB) [facility] Additional Instructions Please stop the cyclobenzaprine/Flexeril and begin taking the Robaxin/methocarbamol as this medication will not cause the same sedation as the cyclobenzaprine and he can take it multiple times a day to help control pain. Continue to stretch and heat the area and continue Tylenol and return to the ER should you have any further concerns.[facility] Work Phone: Hospital Discharge instructions Additional Instructions Thank you for trusting us with your care today! Your viral swab was positive for influenza A. This is likely the cause of your symptoms. Please take Tylenol (2 pills, 650 mg), ibuprofen (2 pills, 400 mg) every 6 hours as needed for pain and fever control. Please take prednisone as prescribed. Please return to the emergency department if your symptoms change or worsen. Please follow with your primary care physician for further outpatient evaluation and management.[facility] Work Phone: Reason for referral (narrative)* Diagnostic Procedure Only (Routine) - Pending Review Specialty Diagnoses / Procedures Referred By Contac t Referred To Contact XR IMAGING Diagnoses Renal calculi Procedures XR ABDOMEN 3V KUB W/OBLIQUES RADIOLOGIC EXAM ABDOMEN 3+ VIEWS Jayy Cancino MD [address] [place] [address] Xr Imaging Referral ID Status Reason Start Date Expiration Date Visits Requested Visits Authorized [id number] Pending Review Auto-Generat ed Referral 11/22/2021 12/22/2022 1 1 * Diagnostic Procedure Only (Routine) - Pending Review Specialty Diagnoses / Procedures Referred By Contac t Referred To Contact US IMAGING Diagnoses Renal calculi Renal cyst Procedures US KIDNEY/BLADDER US RETROPERITONEAL REAL TIME W/IMAGE COMPLETE Jayy Cancino MD [address] [place] [address] Us Imaging Referral ID Status Reason Start Date Expiration Date Visits Requested Visits Authorized [id number] Pending Review Auto-Generat ed Referral 11/22/2021 12/22/2022 1 [facility]No reason for referral information [facility] Work Phone: Summary Purpose Family History No Family History Records Found Relationship Condition Age at Onset Recorded Date/T [place] father Peritonitis Unknown mother Cerebrovascular accident (CVA) Unknown Advance Directives No Advanced Directives Records FoundDocuments on File Type Date Recorded 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 Advance Directive(s) 05/31/2017 9:40 AM Documents on File Type Date Recorded 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 Advance Directive(s) 05/31/2017 9:40 AM Advance Directive Response Recorded Date/ Time Advance Directives Yes November 08 10:31pm Living Will Yes January 01, 2022 4: 39pm Power of Inspector Integrated [employer] Yes January 01, 2022 4:39pm Advance Directive Response Recorded Date/ Time Advance Directives Yes November 08 10:31pm Living Will Yes January 01, 2022 10 :16pm Power of Inspector [employer] Yes January 01, 2022 10:16pm Advance Directive Response Recorded Date/ Time Name of Medical Power of Inspector Integrated Circ[employer] Galinabri Recinos January 01, 2022 10:16pm Advance Directives Yes November 08 10:31pm Living Will Yes January 24, 2022 1 :42pm Power of Inspector [employer] Yes January 24, 2022 1:42pm Advance Directive Response Recorded Date/ Time Name of Medical Power of Inspector [employer] Galina Sugey January 01, 2022 10:16pm Name of Medical Power of Inspector [employer] Galina Sugey January 24, 2022 1:42pm Advance Directives Yes November 08 10:31pm Living Will Yes January 24, 2022 1 :42pm Power of Inspector [employer] Yes January 24, 2022 1:42pm Advance Directive Response Recorded Date/ Time Name of Medical Power of Inspector Integrated [employer] Galinaadenike Recinos January 01, 2022 10:16pm Name of Medical Power of Inspector [employer] Galina Recinos January 24, 2022 1:42pm Advance Directives Yes November 08 016 10:31pm Living Will No April 02, 2022 9:21am Power of Inspector [employer] No April 02 9:21am Advance Directive Response Recorded Date/ Time Name of Medical Power of Inspector [employer] Galina Recinos January 01, 2022 10:16pm Name of Medical Power of Inspector [employer] Galina Recinos January 24, 2022 1:42pm Name of Medical Power of Inspector [employer] galina Recinos April 02, 2022 11:12am Advance Directives Yes November 08 10:31pm Living Will Yes April 02, 2022 11:12am Power of Inspector [employer] Yes April 02 11:12am Advance Directive Response Recorded Date/ Time Name of Medical Power of Inspector [employer] galina Recinos April 02, 2022 11:12am Advance Directives Yes November 08 10:31pm Living Will Yes April 02, 2022 11:12am Power of Inspector [employer] Yes April 02 11:12am Advance Directive Response Recorded Date/ Time Advance Directives Yes November 08 9:31pm Living Will Yes April 02, 2022 10:12am Power of Inspector [employer] Yes April 02 10:12am Advance Directive Response Recorded Date/ Time Advance Directives Yes November 08 10:31pm Living Will Yes April 02, 2022 11:12am Power of Inspector [employer] Yes April 02 11:12am Advance Directive Response Recorded Date/ Time Advance Directives Yes November 08 10:31pm Living Will No March 08, 2023 9:37am Power of Inspector [employer] No March 08 9:37am Advance Directive Response Recorded Date/ Time Advance Directives Yes November 08 10:31pm Living Will No May 22, 2023 11:19pm Power of Inspector [employer] No April 11:19pm Advance Directive Response Recorded Date/ Time Advance Directives Yes November 08 016 9:31pm Living Will No May 22, 2023 10:19pm Power of Inspector [employer] No April 10:19pm Advance Directive Response Recorded Date/ Time Name of Medical Power of Inspector [employer] arvin recinos December 25, 2023 12:45am Advance Directives Yes November 08 10:31pm Living Will Yes December 25, 2023 12:45am Power of Inspector [employer] Yes December 24 12:45am Advance Directive Response Recorded Date/ Time Living Will Yes December 25, 2023 12:45am Power of Inspector [employer] Yes December 24 12:45am Advance Directives Yes November 08 10:31pm Advance Directive Response Recorded Date/ Time Living Will Yes December 25, 2023 12:45am Power of Inspector [employer] Yes December 24 12:45am Living Will Yes November 10, 2024 5:31am Power of Inspector [employer] Yes November 10 5:31am Name of Medical Power of Inspector [employer] Galina November 10, 2024 5:31am Advance Directives Yes November 08 10:31pm Advance Directive Response Recorded Date/ Time Living Will Yes December 25, 2023 12:45am Do you have a Healthcare Power of Inspector Integrated [employer]? Yes December 25, 2023 12:45am Living Will Yes November 10, 2024 5:31am Do you have a Healthcare Power of Inspector [employer]? Yes November 10, 2024 5:31am Name of Medical Power of Inspector [employer] [place] November 10, 2024 5:31am Advance Directives Yes November 08 10:31pm Advance Directive Response Recorded Date/ Time Living Will Yes November 10, 2024 5:31am Do you have a Healthcare Power of Inspector [employer]? Yes November 10, 2024 5:31am Name of Medical Power of Inspector [employer] [place] November 10, 2024 5:31am Advance Directives Yes November 08 10:31pm Advance Directive Response Recorded Date/ Time Advance Directives Yes November 08 10:31pm Chief Complaint Chief Complaint Description Start Date left hand ironer comp Preliminary chief co mplaint data, not [...] has not been provided by the sender. Chief Complaint and Reason for Visit Chief Complaint Admit Date 6 M FU January 21, 2025 7:50a m Pacer Check Remote February 04, 2025 7:38 am Reason for Visit Admit Date Mild cognitive impairment January 21, 2025 7:50am Chief Complaint 6 m fu (MOVED FROM ) 3 mos remote ICD f/u MILD CHF EXAC, SUSPECTED DIVERTICULITIS MILD CHF EXAC, SUSPECTED DIVERTICULITIS Reason for Visit Atherosclerotic hear t disease 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 Essential (primary) hypertension History of implantable cardiac defibrillator (ICD) HLD (hyperlipidemia) Paroxysmal atrial fibrillation Ischemic cardiomyopathy Chronic systolic (congestive) heart failure History of implantable cardiac defibrillator (ICD) Left bundle branch block Paroxysmal atrial fibrillation Ischemic cardiomyopathy Abdominal pain Hypoxia CHF exacerbation Chief Complaint 6 m fu (MOVED FROM ) 3 mos remote ICD f/u MILD CHF EXAC, SUSPECTED DIVERTICULITIS MILD CHF EXAC, SUSPECTED DIVERTICULITIS MILD CHF EXAC, SUSPECTED DIVERTICULITIS MILD CHF EXAC, SUSPECTED DIVERTICULITIS Reason for Visit Atherosclerotic hear t disease 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 Essential (primary) hypertension History of implantable cardiac defibrillator (ICD) HLD (hyperlipidemia) Paroxysmal atrial fibrillation Ischemic cardiomyopathy Chronic systolic (congestive) heart failure History of implantable cardiac defibrillator (ICD) Left bundle branch block Paroxysmal atrial fibrillation Ischemic cardiomyopathy Abdominal pain SILKE (acute kidney injury) Diverticulitis Hypoxia CHF exacerbation CKD (chronic kidney disease) stage 3, GFR 30-59 ml/min Chief Complaint 6 m fu (MOVED FROM ) 3 mos remote ICD f/u MILD CHF EXAC, SUSPECTED DIVERTICULITIS MILD CHF EXAC, SUSPECTED DIVERTICULITIS MILD CHF EXAC, SUSPECTED DIVERTICULITIS MILD CHF EXAC, SUSPECTED DIVERTICULITIS MILD CHF EXAC, SUSPECTED DIVERTICULITIS EORDER Reason for Visit Atherosclerotic hear t disease 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 Essential (primary) hypertension History of implantable cardiac defibrillator (ICD) HLD (hyperlipidemia) Paroxysmal atrial fibrillation Ischemic cardiomyopathy Chronic systolic (congestive) heart failure History of implantable cardiac defibrillator (ICD) Left bundle branch block Paroxysmal atrial fibrillation Ischemic cardiomyopathy Abdominal pain SILKE (acute kidney injury) CHF exacerbation Diverticulitis Hypoxia Chief Complaint 3 mos remote ICD f/u MILD CHF EXAC, SUSPECTED DIVERTICULITIS MILD CHF EXAC, SUSPECTED DIVERTICULITIS MILD CHF EXAC, SUSPECTED DIVERTICULITIS MILD CHF EXAC, SUSPECTED DIVERTICULITIS MILD CHF EXAC, SUSPECTED DIVERTICULITIS EORDER S/P [facility] (OK WITH MMM) SOBS Reason for Visit Chronic systolic (co ngestive) heart failure History of implantable cardiac defibrillator (ICD) Left bundle branch block Paroxysmal atrial fibrillation Ischemic cardiomyopathy Abdominal pain SILKE (acute kidney injury) CHF exacerbation Diverticulitis Hypoxia Atherosclerotic heart disease 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 Essential (primary) hypertension History of implantable cardiac defibrillator (ICD) HLD (hyperlipidemia) Paroxysmal atrial fibrillation Ischemic cardiomyopathy Chief Complaint 3 mos remote ICD f/u MILD CHF EXAC, SUSPECTED DIVERTICULITIS MILD CHF EXAC, SUSPECTED DIVERTICULITIS MILD CHF EXAC, SUSPECTED DIVERTICULITIS MILD CHF EXAC, SUSPECTED DIVERTICULITIS MILD CHF EXAC, SUSPECTED DIVERTICULITIS EORDER S/P [facility] (OK WITH MMM) SOBS PER [place] - [place] HEART [facility] ER E ORDER NEED LAB ORDER Reason for Visit Chronic systolic (co ngestive) heart failure History of implantable cardiac defibrillator (ICD) Left bundle branch block Paroxysmal atrial fibrillation Ischemic cardiomyopathy Abdominal pain SILKE (acute kidney injury) CHF exacerbation Diverticulitis Hypoxia Atherosclerotic heart disease 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 Essential (primary) hypertension History of implantable cardiac defibrillator (ICD) HLD (hyperlipidemia) Paroxysmal atrial fibrillation Ischemic cardiomyopathy Chronic systolic (congestive) heart failure History of implantable cardiac defibrillator (ICD) Left bundle branch block Paroxysmal atrial fibrillation Ischemic cardiomyopathy Atherosclerotic heart disease 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 Chronic systolic (congestive) heart failure Essential (primary) hypertension History of implantable cardiac defibrillator (ICD) HLD (hyperlipidemia) Paroxysmal atrial fibrillation Ischemic cardiomyopathy Chief Complaint 3 mos remote ICD f/u MILD CHF EXAC, SUSPECTED DIVERTICULITIS MILD CHF EXAC, SUSPECTED DIVERTICULITIS MILD CHF EXAC, SUSPECTED DIVERTICULITIS MILD CHF EXAC, SUSPECTED DIVERTICULITIS MILD CHF EXAC, SUSPECTED DIVERTICULITIS EORDER S/P [facility] (OK WITH MMM) SOBS PER [place] - STATES HEART RACING [facility] ER E ORDER NEED LAB ORDER LESION REMOVAL L LOWER LID Reason for Visit Chronic systolic (co ngestive) heart failure History of implantable cardiac defibrillator (ICD) Left bundle branch block Paroxysmal atrial fibrillation Ischemic cardiomyopathy Abdominal pain SILKE (acute kidney injury) CHF exacerbation Diverticulitis Hypoxia Atherosclerotic heart disease 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 Essential (primary) hypertension History of implantable cardiac defibrillator (ICD) HLD (hyperlipidemia) Paroxysmal atrial fibrillation Ischemic cardiomyopathy Chronic systolic (congestive) heart failure History of implantable cardiac defibrillator (ICD) Left bundle branch block Paroxysmal atrial fibrillation Ischemic cardiomyopathy Atherosclerotic heart disease 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 Chronic systolic (congestive) heart failure Essential (primary) hypertension History of implantable cardiac defibrillator (ICD) HLD (hyperlipidemia) Paroxysmal atrial fibrillation Ischemic cardiomyopathy Chief Complaint 3 mos remote ICD f/u MILD CHF EXAC, SUSPECTED DIVERTICULITIS MILD CHF EXAC, SUSPECTED DIVERTICULITIS MILD CHF EXAC, SUSPECTED DIVERTICULITIS MILD CHF EXAC, SUSPECTED DIVERTICULITIS MILD CHF EXAC, SUSPECTED DIVERTICULITIS EORDER S/P [facility] (OK WITH MMM) SOBS PER [place] - STATES HEART RACING SOB, [facility] ER E ORDER NEED LAB ORDER LESION REMOVAL L LOWER LID 6 M FU (WANTS A SUNDAY)FILIPE@1:00 Reason for Visit Chronic systolic (co ngestive) heart failure History of implantable cardiac defibrillator (ICD) Left bundle branch block Paroxysmal atrial fibrillation Ischemic cardiomyopathy Abdominal pain SILKE (acute kidney injury) CHF exacerbation Diverticulitis Hypoxia Bilateral carotid bruits Atherosclerotic heart disease 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 Essential (primary) hypertension History of implantable cardiac defibrillator (ICD) HLD (hyperlipidemia) Paroxysmal atrial fibrillation Ischemic cardiomyopathy Chronic systolic (congestive) heart failure History of implantable cardiac defibrillator (ICD) Left bundle branch block Paroxysmal atrial fibrillation Ischemic cardiomyopathy Atherosclerotic heart disease 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 Chronic systolic (congestive) heart failure Essential (primary) hypertension History of implantable cardiac defibrillator (ICD) HLD (hyperlipidemia) Paroxysmal atrial fibrillation Ischemic cardiomyopathy Chronic systolic (congestive) heart failure History of implantable cardiac defibrillator (ICD) Left bundle branch block Paroxysmal atrial fibrillation Ischemic cardiomyopathy Bilateral carotid bruits Atherosclerotic heart disease 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 Chronic systolic (congestive) heart failure Essential (primary) hypertension History of implantable cardiac defibrillator (ICD) HLD (hyperlipidemia) Paroxysmal atrial fibrillation Ischemic cardiomyopathy Chief Complaint MILD CHF EXAC, SUSPE CTED DIVERTICULITIS MILD CHF EXAC, SUSPECTED DIVERTICULITIS MILD CHF EXAC, SUSPECTED DIVERTICULITIS MILD CHF EXAC, SUSPECTED DIVERTICULITIS MILD CHF EXAC, SUSPECTED DIVERTICULITIS EORDER S/P [facility] (OK WITH MMM) SOBS PER [facility]IE - [facility] STATES HEART RACING [facility] ER E ORDER NEED LAB ORDER LESION REMOVAL L LOWER LID 6 M FU (Sunday)FILIPE@1:00 new device implant new device insert/ see filipe 03-23 @ 11am ACUTE VERTIGO Reason for Visit Abdominal pain SILKE (acute kidney injury) CHF exacerbation Diverticulitis Hypoxia Bilateral carotid bruits Atherosclerotic heart disease 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 Essential (primary) hypertension History of implantable cardiac defibrillator (ICD) HLD (hyperlipidemia) Paroxysmal atrial fibrillation Ischemic cardiomyopathy Chronic systolic (congestive) heart failure History of implantable cardiac defibrillator (ICD) Left bundle branch block Paroxysmal atrial fibrillation Ischemic cardiomyopathy Atherosclerotic heart disease 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 Chronic systolic (congestive) heart failure Essential (primary) hypertension History of implantable cardiac defibrillator (ICD) HLD (hyperlipidemia) Paroxysmal atrial fibrillation Ischemic cardiomyopathy Chronic systolic (congestive) heart failure History of implantable cardiac defibrillator (ICD) Left bundle branch block Paroxysmal atrial fibrillation Ischemic cardiomyopathy Bilateral carotid bruits Atherosclerotic heart disease 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 Chronic systolic (congestive) heart failure Essential (primary) hypertension History of implantable cardiac defibrillator (ICD) HLD (hyperlipidemia) Paroxysmal atrial fibrillation Ischemic cardiomyopathy Bilateral carotid bruits Atherosclerotic heart disease 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 Chronic systolic (congestive) heart failure Essential (primary) hypertension History of implantable cardiac defibrillator (ICD) HLD (hyperlipidemia) Paroxysmal atrial fibrillation Ischemic cardiomyopathy Diabetes Vertigo Hypertension Chief Complaint MILD CHF EXAC, SUSPE CTED DIVERTICULITIS MILD CHF EXAC, SUSPECTED DIVERTICULITIS MILD CHF EXAC, SUSPECTED DIVERTICULITIS MILD CHF EXAC, SUSPECTED DIVERTICULITIS MILD CHF EXAC, SUSPECTED DIVERTICULITIS EORDER S/P [facility] (OK WITH MMM) SOBS PER [place] - STATES HEART RACING [facility] ER E ORDER NEED LAB ORDER LESION REMOVAL L LOWER LID 6 M FU (Sunday)FILIPE@1:00 new device implant new device insert/ see filipe 03-23 @ 11am ACUTE VERTIGO ACUTE VERTIGO ACUTE VERTIGO ACUTE VERTIGO ACUTE VERTIGO PROGRAMMING for MRI PROGRAMMING for MRI Reason for Visit Abdominal pain SILKE (acute kidney injury) CHF exacerbation Diverticulitis Hypoxia Bilateral carotid bruits Atherosclerotic heart disease 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 Essential (primary) hypertension History of implantable cardiac defibrillator (ICD) HLD (hyperlipidemia) Paroxysmal atrial fibrillation Ischemic cardiomyopathy Chronic systolic (congestive) heart failure History of implantable cardiac defibrillator (ICD) Left bundle branch block Paroxysmal atrial fibrillation Ischemic cardiomyopathy Atherosclerotic heart disease 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 Chronic systolic (congestive) heart failure Essential (primary) hypertension History of implantable cardiac defibrillator (ICD) HLD (hyperlipidemia) Paroxysmal atrial fibrillation Ischemic cardiomyopathy Chronic systolic (congestive) heart failure History of implantable cardiac defibrillator (ICD) Left bundle branch block Paroxysmal atrial fibrillation Ischemic cardiomyopathy Bilateral carotid bruits Atherosclerotic heart disease 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 Chronic systolic (congestive) heart failure Essential (primary) hypertension History of implantable cardiac defibrillator (ICD) HLD (hyperlipidemia) Paroxysmal atrial fibrillation Ischemic cardiomyopathy Bilateral carotid bruits Atherosclerotic heart disease 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 Chronic systolic (congestive) heart failure Essential (primary) hypertension History of implantable cardiac defibrillator (ICD) HLD (hyperlipidemia) Paroxysmal atrial fibrillation Ischemic cardiomyopathy Diabetes Vertigo Hypertension Chief Complaint NEED LAB ORDER LESION REMOVAL L LOWER LID 6 M FU (Sunday)FILIPE@1:00 new device implant new device insert/ see filipe 7 @ 11am ACUTE VERTIGO ACUTE VERTIGO ACUTE VERTIGO ACUTE VERTIGO ACUTE VERTIGO PROGRAMMING for MRI PROGRAMMING for MRI REMOTE CHECK Reason for Visit Chronic systolic (co ngestive) heart failure History of implantable cardiac defibrillator (ICD) Left bundle branch block Paroxysmal atrial fibrillation Ischemic cardiomyopathy Bilateral carotid bruits Atherosclerotic heart disease 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 Chronic systolic (congestive) heart failure Essential (primary) hypertension History of implantable cardiac defibrillator (ICD) HLD (hyperlipidemia) Paroxysmal atrial fibrillation Ischemic cardiomyopathy Bilateral carotid bruits Atherosclerotic heart disease 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 Chronic systolic (congestive) heart failure Essential (primary) hypertension History of implantable cardiac defibrillator (ICD) HLD (hyperlipidemia) Paroxysmal atrial fibrillation Ischemic cardiomyopathy Diabetes Hypertension Vertigo History of implantable cardiac defibrillator (ICD) Ischemic cardiomyopathy Chronic systolic (congestive) heart failure History of implantable cardiac defibrillator (ICD) Paroxysmal atrial fibrillation Ischemic cardiomyopathy Chronic systolic (congestive) heart failure History of implantable cardiac defibrillator (ICD) Left bundle branch block Paroxysmal atrial fibrillation Ischemic cardiomyopathy Chief Complaint 3 M FU remote S-ICD f/u REMOTE CHECK ELEVATED BLOOD PRESSURE Reason for Visit Bilateral carotid br uits Atherosclerotic heart disease 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 Chronic systolic (congestive) heart failure Essential (primary) hypertension History of implantable cardiac defibrillator (ICD) HLD (hyperlipidemia) Paroxysmal atrial fibrillation Ischemic cardiomyopathy Chronic systolic (congestive) heart failure History of implantable cardiac defibrillator (ICD) Left bundle branch block Paroxysmal atrial fibrillation Ischemic cardiomyopathy Chronic systolic (congestive) heart failure History of implantable cardiac defibrillator (ICD) Left bundle branch block Paroxysmal atrial fibrillation Ischemic cardiomyopathy Chief Complaint 6 MO F/U remote S-ICD f/u 3 mos remote S-ICD f/u SCREENING LAB AND SUMBAR SPINE XRAY Reason for Visit Bilateral carotid br uits Atherosclerotic heart disease 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 Chronic systolic (congestive) heart failure Essential (primary) hypertension History of implantable cardiac defibrillator (ICD) HLD (hyperlipidemia) Paroxysmal atrial fibrillation Ischemic cardiomyopathy Chronic systolic (congestive) heart failure History of implantable cardiac defibrillator (ICD) Ischemic cardiomyopathy Chronic systolic (congestive) heart failure History of implantable cardiac defibrillator (ICD) Left bundle branch block Ischemic cardiomyopathy Chief Complaint 6 MO F/U remote S-ICD f/u 3 mos remote S-ICD f/u SCREENING LAB AND SUMBAR SPINE XRAY left low back pain DIZZINESS Reason for Visit Bilateral carotid br uits Atherosclerotic heart disease 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 Chronic systolic (congestive) heart failure Essential (primary) hypertension History of implantable cardiac defibrillator (ICD) HLD (hyperlipidemia) Paroxysmal atrial fibrillation Ischemic cardiomyopathy Chronic systolic (congestive) heart failure History of implantable cardiac defibrillator (ICD) Ischemic cardiomyopathy Chronic systolic (congestive) heart failure History of implantable cardiac defibrillator (ICD) Left bundle branch block Ischemic cardiomyopathy Chief Complaint 3 mos remote S-ICD f /u SCREENING LAB AND SUMBAR SPINE XRAY left low back pain DIZZINESS Reason for Visit Chronic systolic (co ngestive) heart failure History of implantable cardiac defibrillator (ICD) Left bundle branch block Ischemic cardiomyopathy Chief Complaint SCREENING LAB AND SUMBAR SPINE XRAY left low back pain DIZZINESS KIDNEY STONES Chief Complaint SCREENING LAB AND SUMBAR SPINE XRAY left low back pain DIZZINESS KIDNEY STONES EORDER Chief Complaint SCREENING LAB AND SUMBAR SPINE XRAY left low back pain DIZZINESS KIDNEY STONES EORDER POSSIBLE UTI SPINE XRAY Reason for Visit Muscle strain Chief Complaint SCREENING LAB AND SUMBAR SPINE XRAY left low back pain DIZZINESS KIDNEY STONES EORDER POSSIBLE UTI SPINE XRAY LEFT LOWER BACK PAIN Reason for Visit Muscle strain Chief Complaint KIDNEY STONES EORDER POSSIBLE UTI SPINE XRAY LEFT LOWER BACK PAIN Inclinic f/u advisorySees MMM@1:30 6 M FU, Fliipe @ 1pm 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 PROGRAMMING in MRI Reason for Visit Muscle strain Chronic systolic (congestive) heart failure History of implantable cardiac defibrillator (ICD) Left bundle branch block Paroxysmal atrial fibrillation Ischemic cardiomyopathy Bilateral carotid bruits Atherosclerotic heart disease 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 Chronic systolic (congestive) heart failure Essential (primary) hypertension History of implantable cardiac defibrillator (ICD) HLD (hyperlipidemia) Paroxysmal atrial fibrillation Ischemic cardiomyopathy Spinal stenosis at L4-L5 level Chronic systolic (congestive) heart failure Essential (primary) hypertension History of implantable cardiac defibrillator (ICD) Ischemic cardiomyopathy Chief Complaint Pacer Check Remote POSSIBLE UTI SPINE XRAY LEFT LOWER BACK PAIN Inclinic f/u advisorySees MMM@1:30 6 M FU, Filipe @ 1pm LUMBAR SPINE Pacer Check Remote M48.061 PROGRAMMING in MRI Pacer Check Remote LUMBAR SPINE Pacer Check Remote LUMBAR SPINE BACK PAIN. RX HERE Reason for Visit Muscle strain Chronic systolic (congestive) heart failure History of implantable cardiac defibrillator (ICD) Left bundle branch block Paroxysmal atrial fibrillation Ischemic cardiomyopathy Bilateral carotid bruits Atherosclerotic heart disease 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 Chronic systolic (congestive) heart failure Essential (primary) hypertension History of implantable cardiac defibrillator (ICD) HLD (hyperlipidemia) Paroxysmal atrial fibrillation Ischemic cardiomyopathy Chronic systolic (congestive) heart failure Essential (primary) hypertension History of implantable cardiac defibrillator (ICD) Ischemic cardiomyopathy Herniated nucleus pulposus, 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 RX HERE Reason for Visit Chronic systolic (co ngestive) heart failure Essential (primary) hypertension History of implantable cardiac defibrillator (ICD) Ischemic cardiomyopathy Herniated nucleus pulposus, L3-4 left Herniated nucleus pulposus, L3-4 left Chief Complaint LUMBAR SPINE BACK PAIN. RX HERE Pacer Check Remote Reason for Visit Herniated nucleus pu lposus, L3-4 left Chief Complaint LUMBAR SPINE BACK PAIN. RX HERE Pacer Check Remote hypoglycemia Reason for Visit Herniated nucleus pu lposus, L3-4 left Chief Complaint Admit Date Pacer Check Remote August 01, 2024 9 :35pm 6 M FU September 17, 2024 1 :47pm Reason for Visit Admit Date Bilateral carotid bruits September 17, 2 025 1:47pm 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 September 17, 2024 1:47pm Chronic systolic (congestive) heart fail ure September 17, 2024 1:47pm Essential (primary) hypertension September 17, 2024 1:47pm History of implantable cardiac defibrill ator (ICD) September 17, 2024 1:47pm HLD (hyperlipidemia) September 17, 2024 1:47pm Paroxysmal atrial fibrillation August 282024 1:47pm Ischemic cardiomyopathy September 17 1:47pm Chief Complaint Admit Date Pacer Check Remote August 01, 2024 9 :35pm 6 M FU September 17, 2024 1 :47pm GENERAL ILLNESS November 10, 2024 5:2 7am Chief Complaint Admit Date Pacer Check Remote August 01, 2024 9 :35pm 6 M FU September 17, 2024 1 :47pm Pacer Check Remote November 05, 2024 1:3 9pm GENERAL ILLNESS November 10, 2024 5:2 7am Cough/ COPY DR. TONY November 19, 2024 3:34pm Chief Complaint Admit Date 6 M FU September 17, 2024 1 :47pm Pacer Check Remote November 05, 2024 1:3 9pm GENERAL ILLNESS November 10, 2024 5:2 7am Cough/ COPY DR. TONY November 19, 2024 3:34pm E ORDER November 26, 2024 10:3 0am INT LABS December 01, 2024 8:25 am Chief Complaint Admit Date 6 M FU September 17, 2024 1 :47pm Pacer Check Remote November 05, 2024 1:3 9pm GENERAL ILLNESS November 10, 2024 5:2 7am Cough/ COPY DR. TONY November 19, 2024 3:34pm E ORDER November 26, 2024 10:3 0am INT LABS December 01, 2024 8:25 am Other specified soft tissue disorders Ap [facility] 2024 3:27pm Chief Complaint Admit Date Pacer Check Remote November 05, 2024 1:3 9pm GENERAL ILLNESS November 10, 2024 5:2 7am Cough/ COPY DR. TONY November 19, 2024 3:34pm E ORDER Monica 2nd, 2025 10:3 0am INT LABS December 01, 2024 8:25 am Other specified soft tissue disorders Ap ril 2024 3:27pm 6 M FU January 21, 2025 7:50a m Chief Complaint Admit Date Pacer Check Remote November 05, 2024 1:3 9pm GENERAL ILLNESS November 10, 2024 5:2 7am Cough/ COPY DR. TONY November 19, 2024 3:34pm E ORDER November 26, 2024 10:3 0am INT LABS December 01, 2024 8:25 am Other specified soft tissue disorders Ap ril 2024 3:27pm 6 M FU January 21, 2025 7:50a m Pacer Check Remote February 04, 2025 7:38 am Chief Complaint Admit Date 6 M FU January 21, 2025 7:50a m Pacer Check Remote February 04, 2025 7:38 am Pacer Check Remote April 22, 2025 7: 48am Pacer Check Remote May 06, 2025 10:47am Additional Source Comments (unrecognized sect ion and content) No Status Records FoundNo Status Records FoundNo Status Records FoundNo Status Records Found INFORMATION SOURCE (unrecogn ized section and content) DATE CREATED AUTHOR 09/02/2018 [facility] DATE CREATED AUTHOR AUTHOR'S ORGANIZ ATION 11/27/2021 [facility] DATE CREATED AUTHOR AUTHOR'S ORGANIZ ATION 04/09/2025 [facility] DATE CREATED AUTHOR AUTHOR'S ORGANIZ ATION 05/16/2025 [facility] Reason for Visit (unrecogniz ed section and content) Reason For Visit Description Follow-up by complaint Preliminary reason f or visit data, not yet signed by the author as of left hand ironer comp Reason Comments Follow Up Reason Comments Radiology US Reason Comments Preparations For Procedures Reason Onset Date Comments Wound Check 03/17/2022 Reason Comments Wound Check Reason Comments CARD Follow Up Annual PAF Reason Comments CARD Follow Up Annual Source Comments (unrecognize d section and content) In the event this informatio n is protected by the Federal Confidentiality of Alcohol and Drug Abuse Patient Records regulations: The Federal rules restrict any use of the information to criminally investigate or prosecute any alcohol or drug abuse patient.[facility] the event this information is protected by the Federal Confidentiality of Alcohol and Drug Abuse Patient Records regulations: The Federal rules restrict any use of the information to criminally investigate or prosecute any alcohol or drug abuse patient.[facility] the event this information is protected by the Federal Confidentiality of Alcohol and Drug Abuse Patient Records regulations: The Federal rules restrict any use of the information to criminally investigate or prosecute any alcohol or drug abuse patient.[facility] the event this information is protected by the Federal Confidentiality of Alcohol and Drug Abuse Patient Records regulations: The Federal rules restrict any use of the information to criminally investigate or prosecute any alcohol or drug abuse patient.[facility] the event this information is protected by the Federal Confidentiality of Alcohol and Drug Abuse Patient Records regulations: The Federal rules restrict any use of the information to criminally investigate or prosecute any alcohol or drug abuse patient.[facility] the event this information is protected by the Federal Confidentiality of Alcohol and Drug Abuse Patient Records regulations: The Federal rules restrict any use of the information to criminally investigate or prosecute any alcohol or drug abuse patient.[facility] the event this information is protected by the Federal Confidentiality of Alcohol and Drug Abuse Patient Records regulations: The Federal rules restrict any use of the information to criminally investigate or prosecute any alcohol or drug abuse patient.[facility] the event this information is protected by the Federal Confidentiality of Alcohol and Drug Abuse Patient Records regulations: The Federal rules restrict any use of the information to criminally investigate or prosecute any alcohol or drug abuse patient.[facility] the event this information is protected by the Federal Confidentiality of Alcohol and Drug Abuse Patient Records regulations: The Federal rules restrict any use of the information to criminally investigate or prosecute any alcohol or drug abuse patient.[facility] Teams (unrecognized sec tion and content) Shot Coat Tender Relationship Specialty Start Date End Date Corin Hernandez PCP - General Family Practice 04/11/17 Bunny Verdin S Specialty Dress Cutter Cardiology 04/11/17 Shu Gotti Specialty Dress Cutter Endocrinology 04/11/17 Estrellita Tony V [address] [place] [phone] Specialty Dress Cutter Internal Medicine 04/11/17 Marj Marcial, LANDCARE OFFICER [address] [place] [address] Specialty Dress Cutter Family Practice 04/11/17 Jayy Cancino MD [address] [place] [address] Specialty Dress Cutter Urology 04/11/17 Estrellita Soto MD [address] [facility] [place] [address] [place] [address] Specialty Dress Cutter Cardiology 01/23/18 Shot Coat Tender Relationship Specialty Start Date End Date Corin Hernandez PCP - General Family Practice 04/11/17 Loyd Verdinril S Specialty Dress Cutter Cardiology 04/11/17 Shu Gotti Specialty Dress Cutter Endocrinology 04/11/17 Estrellita Tony V [address] [place] [address] Specialty Dress Cutter Internal Medicine 04/11/17 Marj Marcial, LANDCARE OFFICER [address] [place] [address] Specialty Dress Cutter Family Practice 04/11/17 Jayy Cancino MD [address] [place], [place] [id number] Specialty Dress Cutter Urology 04/11/17 Estrellita Soto MD [address] [phone] Specialty Dress Cutter Cardiology 01/23/18 Shot Coat Tender Relationship Specialty Start Date End Date Corin Hernandez PCP - General Family Practice 04/11/17 Bunny Verdin Specialty Dress Cutter Cardiology 04/11/17 Shu Gotti Specialty Dress Cutter Endocrinology 04/11/17 Estrellita Tony V [address] [place] [phone] Specialty Dress Cutter Internal Medicine 04/11/17 Marj Marcial, LANDCARE OFFICER [address] [place] [address] Specialty Dress Cutter Family Practice 04/11/17 Jayy Cancino MD [address] [place] [address] Specialty Dress Cutter Urology 04/11/17 Estrellita Soto MD [address] [place] [address] (Fax) Specialty Dress Cutter Cardiology 01/23/18 Shot Coat Tender Relationship Specialty Start Date End Date Corin Hernandez PCP - General Family Practice 04/11/17 Lambert, [place] S Specialty Dress Cutter Cardiology 04/11/17 Shu Gotti Specialty Dress Cutter Endocrinology 04/11/17 Estrellita Tony V [address] [place] [place] [address] Specialty Dress Cutter Internal Medicine 04/11/17 Marj Marcial, LANDCARE OFFICER [address] [place] [address] Specialty Dress Cutter Family Practice 04/11/17 Jayy Cancino MD [address] [place] [address] Specialty Dress Cutter Urology 04/11/17 Estrellita Soto MD [address] [place] [phone] (Fax) Specialty Dress Cutter Cardiology 01/23/18 Shot Coat Tender Relationship Specialty Start Date End Date Corin Hernandez PCP - General Family Practice 04/11/17 Lambert, [place] S Specialty Dress Cutter Cardiology 04/11/17 Shu Gotti MD Specialty Dress Cutter Endocrinology 04/11/17 Estrellita Tony V [address] [place] [address] Specialty Dress Cutter Internal Medicine 04/11/17 Marj Marcial, LANDCARE OFFICER [address] [place] [address] Specialty Dress Cutter Family Practice 04/11/17 Jayy Cancino MD [address] [place] [address] Specialty Dress Cutter Urology 04/11/17 Estrellita Soto MD [address] [place] [phone] Specialty Dress Cutter Cardiology 01/23/18 Shot Coat Tender Relationship Specialty Start Date End Date Corin Hernandez PCP - General Family Practice 04/11/17 Bunny Verdin Specialty Dress Cutter Cardiology 04/11/17 Shu Gotti MD Specialty Dress Cutter Endocrinology 04/11/17 Estrellita Tony V [address] [place] [phone] Specialty Dress Cutter Internal Medicine 04/11/17 Marj Marcial, LANDCARE OFFICER [address] [place] [address] Specialty Dress Cutter Family Practice 04/11/17 Jayy Cancino MD [address] [place] [address] Specialty Dress Cutter Urology 04/11/17 Estrellita Soto MD [address] [place] [phone] Specialty Dress Cutter Cardiology 01/23/18 Team Status: Active Member Role Status Dates Corin Hernandez MD Family Provider Active Dr. Corin Hernandez MD Primary Care Provider Active Team Status: Inactive Member Role Status Dates Dr. Corin Hernandez MD Primary Care Provider Active Dr. Bunny Verdin MD Attending Provider, Referring Pro vider Active Team Status: Inactive Member Role Status Dates Bhavna BRAY PA Attending Provider Active Dr. Corin Hernandez MD Primary Care Provider, Referrin g Provider Active Team Status: Inactive Member Role Status Dates Dr. Corin Hernandez MD Primary Care Provider, Referrin g Provider Active Glo Kowalski Attending Provider Active Team Status: Inactive Member Role Status Dates Dr. Corin Hernandez MD Primary Care Provider Active Dr. Shu Gotti MD Attending Provider, Re ferring Provider Active Team Status: Inactive Member Role Status Dates Dr. Corin Hernandez MD Primary Care Provider Active Dr. Shu Gotti MD Attending Provider Act danika Team Status: Active Member Role Status Dates Dr. Corin Hernandez MD Primary Care Provider Active Dr. Bunny Verdin MD Attending Provider, Referring Pro vider Active Team Status: Active Member Role Status Dates Corin ADRIAN MD Family Provider Active Dr. Corin Hernandez MD Primary Care Provider Active Team Status: Inactive Member Role Status Dates Dr. Corin Hernandez MD Primary Care Provider, Referrin g Provider Active Bhavna BRAY, PA Attending Provider Active Team Status: Inactive Member Role Status Dates Dr. Corin Hernanedz MD Primary Care Provider Active Glo Kowalski Active Dr. Bunny Verdin MD Attending Provider, Referring Pro vider Active Team Status: Active Member Role Status Dates Dr. Corin Hernandez MD Primary Care Provider Active Self Referred Attending Provider Active Team Status: Inactive Member Role Status Dates Dr. Corin Hernandez MD Primary Care Provider Active Katherin Soriano MD Attending Provider, Referring Provide r Active Team Status: Inactive Member Role Status Dates Dr. Corin Hernandez MD Primary Care Provider Active Dr. Vineet Wright MD Emergency Provider Active Team Status: Inactive Member Role Status Dates Dr. Corin Hernandez MD Primary Care Provider Active Dr. Vineet Wright MD Attending Provider, Emergency Provider Active Team Status: Inactive Member Role Status Dates Dr. Corin Hernandez MD Primary Care Provider Active Dr. Michelle Mcfarlane MD Attending Provider, Referri ng Provider Active Team Status: Active Member Role Status Dates Dr. Corin Hernandez MD Primary Care Provider Active Katherin Soriano MD Attending Provider, Referring Provide r Active Team Status: Inactive Member Role Status Dates Dr. Corin Hernandez MD Primary Care Prov ider, Attending Provider, Referring Provider Active Team Status: Inactive Member Role Status Dates Dr. Corin Hernandez MD Primary Care Provider, Referrin g Provider Active Edward Rosado WRECKER OPERATOR, WRECKER OPERATOR-C Attending Provider Active Team Status: Active Member Role Status Dates Dr. Corin Hernandez MD Primary Care Provider Active Edward Rosado WRECKER OPERATOR, WRECKER OPERATOR-C Attending Provider Active Team Status: Active Member Role Status Dates Dr. Corin Hernandez MD Primary Care Prov ider, Attending Provider, Referring Provider Active Team Status: Inactive Member Role Status Dates Dr. Corin Hernandez MD Primary Care Provider Active Edward Rosado WRECKER OPERATOR, WRECKER OPERATOR-C Attending Provider Active Team Status: Inactive Member Role Status Dates Dr. Corin Hernandez MD Primary Care Provider Active Dr. Walter Vera DO Emergency Provider Active Team Status: Inactive Member Role Status Dates Dr. Corin Hernandez MD Primary Care Provider, Referrin g Provider Active Dr. Dave Ruiz DO Attending Provider Active Team Status: Inactive Member Role Status Dates Dr. Corin Hernandez MD Primary Care Provider Active Dr. Walter Vera DO Attending Provider, Emergency Pr ovider Active Team Status: Inactive Member Role Status Dates Dr. Corin Hernandez MD Primary Care Provider Active Dr. Dave Ruiz DO Attending Provider, Referring P rovider Active Team Status: Inactive Member Role Status Dates Dr. Corin Hernandez MD Primary Care Provider Active Dr. Bunny Verdni MD Attending Provider Active Team Status: Active Member Role Status Dates Dr. Corin Hernandez MD Primary Care Provider Active Dr. Ken Drummond MD Attending Provider, Referrin g Provider Active Team Status: Inactive Member Role Status Dates Dr. Corin Hernandez MD Primary Care Provider Active Dr. Ken Drummond MD Attending Provider, Referrin g Provider Active Team Status: Active Member Role Status Dates Corin ADRIAN MD Family Provider Active Katherin Soriano MD Primary Care Provider Active Team Status: Active Member Role Status Dates Katherin Soriano MD Primary Care Provider Active Dr. Shu Gotti MD Attending Provider, Re ferring Provider Active [facility] Other Provider Active Team Status: Inactive Member Role Status Dates Dr. Corin Hernandez MD Primary Care Provider Active Dr. Michelle Mcfarlane MD Attending Provider Active Katherin Soriano MD Referring Provider Active Marj Marcial NP Other Provider Active Team Status: Inactive Member Role Status Dates Katherin Soriano MD Primary Care Provider Active Dr. Shu Gotti MD Attending Provider, Re ferring Provider Active [facility] Other Provider Active Team Status: Inactive Member Role Status Dates Katherin Soriano MD Primary Care Provider Active Dr. Vineet Wright MD Emergency Provider Active Shot Coat Tender Relationship Specialty Start Date End Date Katherin Soriano MD [address] [facility] [address] [place] [address] PCP - General Internal Medicine 03/27/24 Estrellita Tony V [address] [facility] [place] [phone] Specialty Dress Cutter Internal Medicine 04/11/17 Marj Marcial CNP [address] [place] [address] Specialty Dress Cutter Family Medicine 04/11/17 Jayy Cancino MD [address] [place] [address] Specialty Dress Cutter Urology 04/11/17 Estrellita Soto MD [address] [facility] [place] [address] [place] [phone] Specialty Dress Cutter Cardiology 01/23/18 Bunny Verdin MD [address] [facility] [address] [place], [place] [address] Specialty Dress Cutter Cardiology 03/23/23 Maribeth Mcfarlane MD [address] [place] [address] Specialty Dress Cutter Nephrology 03/27/24 Team Status: Inactive Member Role Status Adeel Soriano MD Primary Care Provider Active St art: August 01, 2024 End: August 01, 2024 Dr. Bunny Verdin MD Attending Provider Active S tart: August 01, 2024 End: August 01, 2024 Dr. Bunny Verdin MD Referring Provider Active S tart: August 01, 2024 End: August 01, 2024 Team Status: Inactive Member Role Status Adeel Soriano MD Primary Care Provider Active St art: September 02, 2024 End: September 02, 2024 Katherin Soriano MD Attending Provider Active Start : September 02, 2024 End: September 02, 2024 Katherin Soriano MD Referring Provider Active Start : September 02, 2024 End: September 02, 2024 Team Status: Inactive Member Role Status Adeel Soriano MD Primary Care Provider Active St art: September 17, 2024 End: September 17, 2024 Katherin Soriano MD Referring Provider Active Start : September 17, 2024 End: September 17, 2024 Bhavna Chiang PA, PA Attending Provider Active Start: September 17, 2024 End: September 17, 2024 Team Status: Inactive Member Role Status Adeel Soriano MD Primary Care Provider Active St art: October 27, 2024 End: October 27, 2024 Dr. Michelle Mcfarlane MD Attending Provider Active Start: October 27, 2024 End: October 27, 2024 Dr. Michelle Mcfarlane MD Referring Provider Active Start: October 27, 2024 End: October 27, 2024 Team Status: Active Member Role Status Adeel Soriano MD Primary Care Provider Active St art: October 28, 2024 Dr. Shu Gotti MD Attending Provider Act danika Start: October 28, 2024 Dr. Shu Gotti MD Referring Provider Act danika Start: October 28, 2024 Team Status: Active Member Role Status Adeel Soriano MD Primary Care Provider Active Team Status: Inactive Member Role Status Adeel Soriano MD Primary Care Provider Active St art: November 10, 2024 End: November 10, 2024 Dr. Romeo Medeiros DO Emergency Provider Active Start: November 10, 2024 End: November 10, 2024 Team Status: Inactive Member Role Status Adeel Soriano MD Primary Care Provider Active St art: October 28, 2024 End: October 28, 2024 Dr. Shu Gotti MD Attending Provider Act danika Start: October 28, 2024 End: October 28, 2024 Dr. Shu Gotti MD Referring Provider Act danika Start: October 28, 2024 End: October 28, 2024 Team Status: Inactive Member Role Status Adeel Soriano MD Primary Care Provider Active St art: November 05, 2024 End: November 05, 2024 Dr. Bunny Verdin MD Attending Provider Active S tart: November 05, 2024 End: November 05, 2024 Dr. Bunny Verdin MD Referring Provider Active S tart: November 05, 2024 End: November 05, 2024 Team Status: Inactive Member Role Status Adeel Soriano MD Primary Care Provider Active St art: November 10, 2024 End: November 10, 2024 Dr. Romeo Medeiros DO Attending Provider Active Start: November 10, 2024 End: November 10, 2024 Dr. Romeo Medeiros DO Emergency Provider Active Start: November 10, 2024 End: November 10, 2024 Team Status: Inactive Member Role Status Adeel Soriano MD Primary Care Provider Active St art: November 19, 2024 End: November 19, 2024 Katherin Soriano MD Attending Provider Active Start : November 19, 2024 End: November 19, 2024 Katherin Soriano MD Referring Provider Active Start : November 19, 2024 End: November 19, 2024 Dr. Estrellita Tony MD Other Provider Active Start: November 19, 2024 End: November 19, 2024 Team Status: Inactive Member Role Status Adeel Soriano MD Primary Care Provider Active St art: November 26, 2024 End: November 26, 2024 Edward Rosado WRECKER OPERATOR, WRECKER OPERATOR-C Attending Provider Active S tart: November 26, 2024 End: November 26, 2024 Edward Rosado WRECKER OPERATOR, WRECKER OPERATOR-C Referring Provider Active S tart: November 26, 2024 End: November 26, 2024 Team Status: Inactive Member Role Status Adeel Soriano MD Primary Care Provider Active St art: December 01, 2024 End: December 01, 2024 Kimmy Sanchez WRECKER OPERATOR, WRECKER OPERATOR-C Attending Provider Active Start: December 01, 2024 End: December 01, 2024 Kimmy Sanchez WRECKER OPERATOR, WRECKER OPERATOR-C Referring Provider Active Start: December 01, 2024 End: December 01, 2024 Team Status: Inactive Member Role Status Adeel Soriano MD Primary Care Provider Active St art: December 15, 2024 End: December 15, 2024 Katherin Soriano MD Attending Provider Active Start : December 15, 2024 End: December 15, 2024 Katherin Soriano MD Referring Provider Active Start : December 15, 2024 End: December 15, 2024 Team Status: Active Member Role Status Adeel Soriano MD Primary Care Provider Active St art: December 15, 2024 Dr. Jose Carlos Alex MD Attending Provider Active S tart: December 15, 2024 Team Status: Active Member Role Status Adeel Soriano MD Primary Care Provider Active St art: December 15, 2024 Katherin Soriano MD Referring Provider Active Start : December 15, 2024 Dr. Jose Carlos Alex MD Attending Provider Active S tart: December 15, 2024 Team Status: Inactive Member Role Status Adeel Soriano MD Primary Care Provider Active St art: January 21, 2025 End: January 21, 2025 Katherin Soriano MD Referring Provider Active Start : January 21, 2025 End: January 21, 2025 Dr. Douglas Livingston MD Attending Provider Active Start: January 21, 2025 End: January 21, 2025 Team Status: Inactive Member Role Status Adeel Soriano MD Primary Care Provider Active St art: February 04, 2025 End: February 04, 2025 Dr. Bunny Verdin MD Attending Provider Active S tart: February 04, 2025 End: February 04, 2025 Team Status: Active Member Role/Relationship Status Adeel Soriano MD Primary Care Provider Active Team Status: Inactive Member Role/Relationship Status Adeel Soriano MD Primary Care Provider Active St art: November 05, 2024 End: November 05, 2024 Dr. Bunny Verdin MD Attending Provider Active S tart: November 05, 2024 End: November 05, 2024 Dr. Bunny Verdin MD Referring Provider Active S tart: November 05, 2024 End: November 05, 2024 Team Status: Inactive Member Role/Relationship Status Adeel Soriano MD Primary Care Provider Active St art: November 10, 2024 End: November 10, 2024 Dr. Romeo Medeiros DO Attending Provider Active Start: November 10, 2024 End: November 10, 2024 Dr. Romeo Medeiros DO Emergency Provider Active Start: November 10, 2024 End: November 10, 2024 Team Status: Inactive Member Role/Relationship Status Adeel Soriano MD Primary Care Provider Active St art: November 19, 2024 End: November 19, 2024 Katherin Soriano MD Attending Provider Active Start : November 19, 2024 End: November 19, 2024 Katherin Soriano MD Referring Provider Active Start : November 19, 2024 End: November 19, 2024 Dr. Estrellita Tony MD Other Provider Active Start: November 19, 2024 End: November 19, 2024 Team Status: Inactive Member Role/Relationship Status Adeel Soriano MD Primary Care Provider Active St art: November 26, 2024 End: November 26, 2024 Edward Rosado WRECKER OPERATOR, WRECKER OPERATOR-C Attending Provider Active S tart: November 26, 2024 End: November 26, 2024 Edward Rosado WRECKER OPERATOR, WRECKER OPERATOR-C Referring Provider Active S tart: November 26, 2024 End: November 26, 2024 Team Status: Inactive Member Role/Relationship Status Adeel Soriano MD Primary Care Provider Active St art: December 01, 2024 End: December 01, 2024 Kimmy Sanchez WRECKER OPERATOR, WRECKER OPERATOR-C Attending Provider Active Start: December 01, 2024 End: December 01, 2024 Kimmy Sanchez WRECKER OPERATOR, WRECKER OPERATOR-C Referring Provider Active Start: December 01, 2024 End: December 01, 2024 Team Status: Inactive Member Role/Relationship Status Dates Katherin Soriano MD Primary Care Provider Active St art: December 15, 2024 End: December 15, 2024 Katherin Soriano MD Attending Provider Active Start : December 15, 2024 End: December 15, 2024 Katherin Soriano MD Referring Provider Active Start : December 15, 2024 End: December 15, 2024 Team Status: Active Member Role/Relationship Status Dates Katherin Soriano MD Primary Care Provider Active St art: December 15, 2024 Katherin Soriano MD Referring Provider Active Start : December 15, 2024 Dr. Jose Carlos Alex MD Attending Provider Active S tart: December 15, 2024 Team Status: Inactive Member Role/Relationship Status Dates Katherin Soriano MD Primary Care Provider Active St art: January 21, 2025 End: January 21, 2025 Katherin Soriano MD Referring Provider Active Start : January 21, 2025 End: January 21, 2025 Dr. Douglas Livingston MD Attending Provider Active Start: January 21, 2025 End: January 21, 2025 Team Status: Inactive Member Role/Relationship Status Adeel Soriano MD Primary Care Provider Active St art: February 04, 2025 End: February 04, 2025 Dr. Bunny Verdin MD Attending Provider Active S tart: February 04, 2025 End: February 04, 2025 Dr. Bunny Verdin MD Referring Provider Active S tart: February 04, 2025 End: February 04, 2025 Team Status: Inactive Member Role/Relationship Status Dates Katherin Soriano MD Primary Care Provider Active St art: February 25, 2025 End: February 25, 2025 Dr. Shu Gotti MD Attending Provider Act danika Start: February 25, 2025 End: February 25, 2025 Dr. Shu Gotti MD Referring Provider Act danika Start: February 25, 2025 End: February 25, 2025 Shot Coat Tender Relationship Specialty Start Date End Date Katherin Soriano MD [address] [place] [address] PCP - General Internal Medicine 03/27/24 Estrellita Tony V [address] [place] [phone] Specialty Dress Cutter Internal Medicine 04/11/17 Aggie Marj Mya, LANDCARE OFFICER [address] [place] [address] Specialty Dress Cutter Family Medicine 04/11/17 Estrellita Soto MD [address] [place] [phone] Specialty Dress Cutter Cardiology 01/23/18 Bunny Verdin MD [address] [place], [place] [address] Specialty Dress Cutter Cardiology 03/23/23 Maribeth Mcfarlane MD [address] [place] [address] Specialty Dress Cutter Nephrology 03/27/24 Team Status: Inactive Member Role/Relationship Status Adeel Soriano MD Primary Care Provider Active St art: January 21, 2025 End: January 21, 2025 Katherin Soriano MD Referring Provider Active Start : January 21, 2025 End: January 21, 2025 Dr. Douglas Livingston MD Attending Provider Active Start: January 21, 2025 End: January 21, 2025 Team Status: Inactive Member Role/Relationship Status Adeel Soriano MD Primary Care Provider Active St art: February 04, 2025 End: February 04, 2025 Dr. Bunny Verdin MD Attending Provider Active S tart: February 04, 2025 End: February 04, 2025 Dr. Bunny Verdin MD Referring Provider Active S tart: February 04, 2025 End: February 04, 2025 Team Status: Inactive Member Role/Relationship Status Adeel Soriano MD Primary Care Provider Active St art: February 25, 2025 End: February 25, 2025 Dr. Shu Gotti MD Attending Provider Act danika Start: February 25, 2025 End: February 25, 2025 Dr. Shu Gotti MD Referring Provider Act danika Start: February 25, 2025 End: February 25, 2025 Team Status: Inactive Member Role/Relationship Status Adeel Soriano MD Primary Care Provider Active St art: April 21, 2025 End: April 21, 2025 Katherin Soriano MD Attending Provider Active Start : April 21, 2025 End: April 21, 2025 Katherin Soriano MD Referring Provider Active Start : April 21, 2025 End: April 21, 2025 Team Status: Active Member Role/Relationship Status Adeel Soriano MD Primary Care Provider Active St art: April 28, 2025 Dr. Michelle Mcfarlane MD Attending Provider Active Start: April 28, 2025 Dr. Michelle Mcfarlane MD Referring Provider Active Start: April 28, 2025 Team Status: Active Member Role/Relationship Status Adeel Soriano MD Primary Care Provider Active St art: April 22, 2025 Dr. Bunny Verdin MD Attending Provider Active S tart: April 22, 2025 Team Status: Inactive Member Role/Relationship Status Adeel Soriano MD Primary Care Provider Active St art: April 28, 2025 End: April 28, 2025 Dr. Michelle Mcfarlane MD Attending Provider Active Start: April 28, 2025 End: April 28, 2025 Dr. Michelle Mcfarlane MD Referring Provider Active Start: April 28, 2025 End: April 28, 2025 Team Status: Active Member Role/Relationship Status Adeel Soriano MD Primary Care Provider Active St art: May 06, 2025 Dr. Bunny Verdin MD Attending Provider Active S tart: May 06, 2025 Team Status: Inactive Member Role/Relationship Status Adeel Soriano MD Primary Care Provider Active St art: April 22, 2025 End: April 22, 2025 Dr. Bunny Verdin MD Attending Provider Active S tart: April 22, 2025 End: April 22, 2025 Team Status: Inactive Member Role/Relationship Status Adeel Soriano , MD Primary Care Provider Active St art: May 06, 2025 End: May 06, 2025 Dr. Bunny Verdin MD Attending Provider Active S tart: May 06, 2025 End: May 06, 2025 Goals (unrecognized section and content) Goals may be documented in a n alternate sectionGoals may be documented in an alternate sectionGoals may be documented in an alternate sectionGoals may be documented in an alternate sectionGoals may be documented in an alternate sectionGoals may be documented in an alternate sectionGoals may be documented in an alternate sectionGoals may be documented in an alternate sectionGoals may be documented in an alternate sectionGoals may be documented in an alternate sectionGoals may be documented in an alternate sectionGoals may be documented in an alternate sectionGoals may be documented in an alternate sectionGoals may be documented in an alternate sectionGoals may be documented in an alternate sectionGoals may be documented in an alternate sectionGoals may be documented in an alternate sectionGoals may be documented in an alternate sectionGoals may be documented in an alternate sectionGoals may be documented in an alternate sectionGoals may be documented in an alternate sectionGoals may be documented in an alternate sectionGoals may be documented in an alternate sectionGoals may be documented in an alternate sectionGoals may be documented in an alternate sectionGoals may be documented in an alternate sectionGoals may be documented in an alternate sectionGoals may be documented in an alternate sectionGoals may be documented in an alternate sectionGoals may be documented in an alternate sectionGoals may be documented in an alternate sectionGoals may be documented in an alternate sectionGoals may be documented in an alternate sectionGoals may be documented in an alternate sectionGoals may be documented in an alternate section FOR RECORDS PERTAINING TO PATIENTS WHO ARE [...] BE BASED ON THE PRIMARY CLINICAL RECORDS. [facility]. provides no warranty or guarantee of the accuracy or completeness of information in this document.
== END | disposition home or self-care (01) ==
LOC: CVS 07:33
PROVIDERS: PCP Family Medicine; Referring Provider Family Medicine; Visit Provider Family Medicine
DX: I50.22 Chronic systolic (congestive) heart failure (principal)
CPT/HCPCS: 93306; Q9957; A4216; C8929

== ENCOUNTER → 2025-05-29 | Outpatient (CLI) | payer MEDICARE, OTHER, SELFPAY ==
--- OUTSIDE RECORDS SUMMARY | 2025-05-29 07:23 | XMS RPT_ITS | CCD ---
Author Organization [facility] Care Team Providers Care Speech And Language Clinician Name Role Phone JAISON Chiang, Bhavna Lucero Unavailable ESTRELLITA SOTO Unavailable Unavailable Corin Hernandez Unavailable Unavailable BUNNY VERDIN Unavailable Unavailable EM SUAREZ Unavailable Unavailable EM SUAREZ Unavailable Unavailable Corin Hernandez Unavailable Unavailable Kumar SPARKS, Liam Larios Unavailable Corin Hernandez Primary Care Provider Bunny Verdin Unavailable Shu Gotti Unavailable Estrellita Benavidez Unavailable Marj Marcial CNP Unavailable [phone] Barak SPARKS, Jayy Unavailable Estrellita Soto MD Unavailable Dr. Corin Hernandez Primary Care Provider Dr. Corin Hernandez Referring Provider [phone] ASA Boswell Attending Provider Dr. Bunny Verdin Attending Provider Dr. Bunny Verdin Referring Provider Dr. Bull Tee Emergency Provider Dr. Kalpana Elam Admit Provider Dr. Kalpana Elam Attending Provider Dr. Kalpana Elam Other Provider Dr. Heidi Razo Other Provider James NEW PRODUCT TRAINER, NEW PRODUCT TRAINER-C Attending Provider James NEW PRODUCT TRAINER, COY-C Other Provider Dr. Wendy Goodman Other Provider Dr. Heidi Razo Attending Provider Dr. Corin Hernandez Primary Care Provider Dr. Corin Hernandez Referring Provider Mariia BRAY, ASA Lucero Attending Provider Glo Kowalski Attending Provider Unavailable [...] Provider Glo Kowalski Attending Provider Unavailable Dr. Bunny Verdin Attending Provider Dr. Bunny Verdin Referring Provider Dr. Corin Hernandez Primary Care Provider David, Dr. Corin Lloyd Primary Care Provider David, Dr. Corin Lloyd Referring Provider Roof NEW PRODUCT TRAINER, NEW PRODUCT TRAINER-Jose Arenas Attending Provider Dr. Corin Hernandez Primary Care Provider David, Dr. Corin Lloyd Referring Provider Roof NEW PRODUCT TRAINER, NEW PRODUCT TRAINER-Jose Arenas Attending Provider Glo Kowalski Attending Provider Unavailable ASA Boswell Attending Provider Dr. Dave Ruiz Attending Provider Dr. Corin Hernandez Primary Care Provider Dr. Bunny Verdin Attending Provider Dr. Bunny Verdin Referring Provider Dr. Corin Hernandez Primary Care Provider Dr. Corin Hernandez Referring Provider Glo Kowalski Attending Provider Unavailable Dr. Bunny Verdin Attending Provider Dr. Dave Ruiz Attending Provider Dr. Corin Hernandez Primary Care Provider Dr. Corin Hernandez Referring Provider Dr. Dave Ruiz Attending Provider Dr. Bunny Verdin Attending Provider Dr. Bunny Verdin Referring Provider Estrellita Benavidez Unavailable Marj Marcial CNP Unavailable Barak SPARKS, Jayy Unavailable Deyvi SPARKS, Estrellita Gomes Unavailable Lambert SPARKS, Bunny S Unavailable Christie SPARKS, Katherin Primary Care Provider Maribeth Mcfarlane MD R Unavailable Christie SPARKS, Katherin Primary Care Provider Lambert SPARKS, Dr. Hollis Attending Provider Lambert SPARKS, Dr. Hollis Referring Provider Katherin Edge MD Attending Provider Katherin Edge MD Referring Provider Mariia BRAY, Bhavna Lucero Attending Provider Maeve SPARKS, Dr. Martinez Attending Provider Maeve SPARKS, Dr. Martinez Referring Provider Ana María SPARKS, Dr. Shu Manuel Attending Provide r Ana María SPARKS, Dr. Shu Manuel Referring Provide r Dr. Romeo Medeiros DO Emergency Provider Dr. Romeo Medeiros DO Attending Provider Dr. Estrellita Tony MD, V Other Provider Katherin Edge MD Primary Care Provider Dr. Bunny Verdin MD Attending Provider Dr. Bunny Verdin MD Referring Provider Alonzo CESPEDES-CEdward Attending Provider Edward Oliva Referring Provider Kimmy Holguin Attending Provider Daniel LANDEROSCKimmy Referring Provider Abi SPARKS, Dr. Branch Attending Provider Christie SPARKS, Chalon Primary Care Provider Christie SPARKS, Katherin Attending Provider [phone] Christie SPARKS, Katherin Referring Provider [phone] Miki SPARKS, Dr. Cole Attending Provider Christie SPARKS, Chalon Primary Care Provider [phone] Ana María SPARKS, Dr. Shu Manuel Attending Provide r Ana María SPARKS, Dr. Shu Manuel Referring Provide r CHRISTIE, KATHERIN Referring Unavailable CHRISTIE, CHALON Primary Care Unavailable ESTRELLITA SOTO Attending Unavailable Christie SPARKS, Chalon Primary Care Provider Christie SPARKS, Katherin Referring Provider [phone] Lambert SPARKS, Dr. Hollis Attending Provider [phone] Lambert SPARKS, Dr. Hollis Referring Provider [phone] Christie SPARKS, Katherin Attending Provider [phone] Maeve SPARKS, Dr. Martinez Attending Provider [phone] Maeve SPARKS, Dr. Martinez Referring Provider [phone] Christie, Chalon Primary Care Unavailable Lambert, [place] Referring Unavailable Lambert, Bunny Attending Unavailable Christie, Chalon Primary Care Unavailable Lambert, [place] Referring Unavailable Lambert, [place] Attending Unavailable Christie, Chalon Primary Care Unavailable Raghunathan, Shu Na Attending Unavaila ble Raghunathan, Shu Na Referring Unavaila ble Raghunathan, Shu Na Referring Unavaila ble Raghunathan, Shu Na Attending Unavaila ble Christie, Chalon Primary Care Unavailable Christie, Chalon Referring Unavailable Christie, Chalon Attending Unavailable Christie, Chalon Primary Care Unavailable Christie, Chalon Primary Care Unavailable Daniel NEW PRODUCT TRAINER, Kimmy Referring Unavailable Daniel NEW PRODUCT TRAINER, Kimmy Attending Unavailable Alonzo NEW PRODUCT TRAINER, Edward Arenas Referring Unavailable Alonzo NEW PRODUCT TRAINER, Edward Arenas Attending Unavailable Christie, Chalon Primary Care Unavailable Christie, Chalon Referring Unavailable Christie, Chalon Primary Care Unavailable Mariia BRAY, Bhavna Lucero Attending Unavail able Christie, Chalon Primary Care Unavailable Lambert, [place] Attending Unavailable Raghunathan, Shu Na Referring Unavaila ble Raghunathan, Shu Na Attending Unavaila ble Christie, Chalon Primary Care Unavailable Christie, Chalon Referring Unavailable Christie, Chalon Primary Care Unavailable Christie, Chalon Attending Unavailable Christie, Chalon Primary Care Unavailable Christie, Chalon Referring Unavailable Christie, Chalon Attending Unavailable Marj Marcial NP Attending Unavailable Christie, Chalon Primary Care Unavailable Christie, Chalon Primary Care Unavailable Sibilia, Estrellita Rosales Attending Unavailable Christie, Chalon Primary Care Unavailable Christie, Chalon Referring Unavailable Christie, Chalon Attending Unavailable Mala, Romeo Attending Unavailable Christie, Chalon Primary Care Unavailable Maeve, Jayaprakas Referring Unavailable Maeve, Jayaprakas Attending Unavailable Christie, Chalon Primary Care Unavailable Christie, Chalon Referring Unavailable Christie, Chalon Primary Care Unavailable Christie, Chalon Attending Unavailable Christie, Chalon Primary Care Unavailable Maeve, Jayaprakas Referring Unavailable Maeve, Jayaprakas Attending Unavailable Christie, Chalon Referring Unavailable Christie, Chalon Primary Care Unavailable Christie, Chalon Attending Unavailable Sibilia, Estrellita V Consulting Unavailable Jose Carlos Alex Attending Unavailable Christie, Chalon Referring Unavailable Christie, Chalon Primary Care Unavailable Christie, Chalon Primary Care Unavailable Lambert, [place] Attending Unavailable Christie, Chalon Primary Care Unavailable Lambert, Bunny Attending Unavailable Lambert, [place] Referring Unavailable Christie, Chalon Primary Care Unavailable Lambert, Bunny Referring Unavailable Lambert, [place] Attending Unavailable Christie, Chalon Primary Care Unavailable Ezra CESPEDES, Sruthi Referring Unavailable Douglas Livingston Attending Unavailable Christie, Chalon Primary Care Unavailable Christie, Chalon Referring Unavailable Douglas Livingston Attending Unavailable Allergies Allergy Classification Reported Allergen(s) Allergy Type Date of Onset Reaction(s) Facility (1 source) enalapril Drug Allergy 6 [facility] Work Phone: (1 source) warfarin Drug Allergy 7 Bleeding under skin/sensitive to med [facility] Work Phone: (2 sources) NKDA drug allergy 3 [facility] Work Phone: (1 source) LAURA-I drug allergy 5 cough [facility] Work Phone: (20 sources) Azithromycin; 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: [AZITHROMYCIN] Drug Allergy 7 Other: See Comments [facility] (20 sources) Enalapril; 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: [ENALAPRIL] Drug Allergy 5 Cough [facility] (11 sources) House dust mite; 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: [DUST MITES] Propensity to adverse reactions (disorder) 0 Other: See Comments [facility] (20 sources) Latex; 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: [LATEX] Propensity to adverse reactions (disorder) 8 Other: See Comments [facility] Comment on above: "pulls skin off" (20 sources) levoFLOXacin; 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: [LEVOFLOXACIN] Drug Allergy 7 Other: See Comments [facility] (11 sources) Mold; 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: [MOLDS EXTRACT] Propensity to adverse reactions (disorder) 0 Other: See Comments [facility] (1 source) Adhesive Tape; 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: [TAPE] allergy to substance 9 [facility] Work Phone: (1 source) Azithromycin Drug Allergy 9 [facility] Work Phone: (1 source) levoFLOXacin Drug Allergy 9 [facility] Work Phone: (14 sources) Angiotensin-conv erting enzyme inhibitor agent; 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: [LAURA INHIBITORS] Drug Allergy 7 Cough, Unknown [facility] Work Phone: (20 sources) Warfarin; 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: [WARFARIN] Drug Allergy 7 Other: See Comments [facility] Work Phone: (20 sources) Adhesive Tape; 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: [adhesive tape] Propensity to adverse reactions 2 [facility] (5 sources) Angiotensin-conv erting enzyme inhibitor agent Drug Allergy 7 Cough, Unknown [facility] Work Phone: (20 sources) Angiotensin Converting Enzyme (Laura) Inhibitors Propensity to adverse reactions 2 cough [facility] (1 source) Angiotensin Converting Enzyme (Laura) Inhibitors Drug allergy (disorder) 5 [facility] (1 source) Warfarin Drug Allergy 5 [facility] Medications Current Medications Medication Drug Class(es) Dates Sig (Normalized) Sig (Original) [id number] 200 actuat albuterol 0.09 mg/actuat metered dose [...] ABS 1 tablet 2 x day APIXABAN [id number] Liam Heath MD Start: 05-20-2018 End: 11-13-2018 [...] One tablet by mouth twice daily APIXABAN [id number] Bunny Verdin MD Start: 10-07-2015 End: 11-16-2015 [...] MG CR-TABS 1 x day ASCORBIC ACID [id number] Liam Hetah MD Start: 03-26-2017 End: 12-29-2020 take 1 tablet by mouth once daily Ascorbic Acid (Vitamin C) 1,000 MG tablet Discontinued 1000 mg PO DAILY May 20, 2018 12:00am December 29, 2020 11:27am vitmain take 1 tablet by tomer th once daily VITAMIN C 100 MG TABS One tablet by mouth daily ASCORBIC ACID [id number] Rachid Malone DO Comment on above: Take 1,000 mg by [...] TABS 1 tablet 2 x day CHOLECALCIFEROL [id number] Liam Heath MD Start: 05-20-2018 End: 01-21-2025 [...] MCG/ACT SUSP 2 x day FLUTICASONE PROPIONATE [id number] Liam Heath MD Start: 05-20-2018 End: 12-29-2020 take 50 ug by inhalation twice daily Fluticasone Furoate 50 MCG blister with device Discontinued 50 ug IH TWICE A DAY May 20, 2018 12:00am December 29, 2020 11:24am congestion Start: 02-29-2016 FLUTICASONE AK OPIONATE 50 MCG/ACT SUSP (0.05mg/inh) 1 spray each nostril once a day FLUTICASONE PROPIONATE [id number] Maylin Thompson RN take 1 spray(s) nasa l route once daily fluticasone (FLONASE) 50 mcg/actuation nasal spray Use 1 [place] in each nostril once daily. Active Comment on above: Use 1 [place] in each nostril once daily. furosemide 40 [...] Disc ontinued 40 mg PO .COMPLEX 120 November 24, 2024 12:02pm January 21, 2025 [...] TABS One tablet by mouth daily FUROSEMIDE [id number] Bhavna Chiang PA-C Comment on above: Take [...] 0 .Route .MEDSUPPLY 1 August 25, 2020 12:00am As directed Start: 08-25-2020 Handicap Parki ng Placard Active 0 .Route .MEDSUPPLY 1 August 25, 2020 1:00am As directed 3 [...] 12 units at bedtime INSULIN GLARGINE SOLN [id number] Liam Heath MD Insulin Glargine 100 unit/mL [...] Comment on above: Take 1 tablet by [facility] once daily. Multivitamin 1 EACH tablet (13 [...] 2 Puffs as instructed twice daily. Active [place]-3 Fatty Acids 1,000 mg capsule (7 sources) Start: 01-21-2025 take 1 capsule by mouth twice daily [place]-3 Fatty Acids 1,000 mg capsule Active 2000 mg PO TWICE A DAY January 21, 2025 12:00am [place]-3 Fatty Acids-Fish Oil (20 sources) Start: 05-20-2018 [place]-3 Fatty Acids-Fish Oil Active 1 EACH PO DAILY May 20, 2018 7:21pm Start: 05-20-2018 [place]-3 Fatty Acids-Fish Oil Active 1 EACH PO DAILY May 19, 2018 11:00pm Start: 05-20-2018 [place]-3 Fatty Acids-Fish Oil Active 1 EACH PO [...] One tablet by mouth daily LEVOTHYROXINE SODIUM [id number] Bhavna Chiang PA-C Start: 02-25-2013 End: 07-13-2017 [...] and 1 on odd days LEVOTHYROXINE SODIUM [id number] Fran Jewell MD Comment on above: Take 100 mcg by mout h daily before breakfast. Takes 200 mg on Sundays Vitamins A,C,S-Ofiu-Qxryrr (Preservision Areds) 4,296 mcg-226 mg-90 mg capsule (7 sources) Start: 01-21-2025 Vitamins A,C,F-Scyt-Ronaff (Preservision Areds) 4,296 mcg-226 mg-90 mg capsule [...] 8:06am Start: 03-16-2017 take 2 tablets by mo [facility] once daily AMIODARONE HCL 200 MG TABS Two tablets by mouth daily AMIODARONE HCL [id number] Bhavna Chiang PA-C Start: 08-01-2011 End: 02-25-2013 AMIODARONE HCL 200 MG TABS o ne tab once a day AMIODARONE HCL [id number] Fran Jewell MD Start: 07-25-2011 End: 07-25-2011 take 1 tablet by mouth three times daily AMIODARONE HCL 200 MG TABS One tablet by mouth three times daily AMIODARONE HCL [id number] Toña Zapata RN Start: 07-25-2011 AMIODARONE HCL 200 MG TABS one tab twice a day thru 08-01-11 then once a day AMIODARONE HCL [id number] Fran Jewell MD amLODIPine 5 mg oral [...] 5 mg PO TWICE A DAY 180 3 November 28, 2021 5:01pm January 04, 2022 [...] mg tablet Discontinued 5 mg PO DAILY 26 07December 24, 2020 5:08pm December 29, 2020 11:51am [...] mg tablet Discontinued 2.5 mg PO DAILY May 19, 2019 10:04am October 30, 2019 [...] One tablet by mouth daily AMLODIPINE BESYLATE [id number] Bhavna Chiang PA-C Start: 11-16-2015 End: 03-21-2017 [...] and bmp to Dr Bonner fax # [phone] Start: 11-09-2015 End: 11-16-2015 take 2 g [...] GM SOLR q 6 hrs AMPICILLIN SODIUM [id number] Jessica Ordoñez amylase 11015 unt / lipase 52241 unt / protease 62842 unt delayed release oral capsule (20 sources) Start: 12-29-2020 End: 03-07-2021 Uiqynd-Hvnwounv-Psgpwuv 10,0 00-32,000 -42,000 unit capsule,delayed release(DR/EC) Discontinued 2 NMA PO .COMPLEX December 29, 2020 11:24am March 07, 2021 2:36pm 2 caps PO 2 caps with each meal, 1 cap with snacks; Start: 12-29-2020 End: 03-07-2021 Ugynrn-Cxqypbur-Gcgvfci Disc ontinued 2 CAP PO .COMPLEX December 29, 2020 11:24am March 07, 2021 2:36pm 2 caps PO 2 caps with each meal, 1 cap with snacks; Start: 11-24-2020 End: 12-29-2020 Smsbgc-Suiinsvo-Pasyosd 1 EA CH capsule,delayed release(DR/EC) Discontinued 2 NMA PO DAILY November 24, 2020 12:00am December 29, 2020 11:27am Start: 11-24-2020 End: 12-29-2020 Kzjmrq-Zwvidzhz-Hhctqxm Disc ontinued 2 EACH PO DAILY November 24, 2020 12:00am December 29, 2020 11:27am ascorbic acid 113 mg / beta carotene 7160 mg / cuprous oxide 0.4 mg / dl-alpha tocopheryl acetate 100 unt / zinc oxide 17.4 mg oral tablet (16 sources) Vitamin C Start: 12-25-2023 End: 01-21-2025 Vitamins A,C,U-Qvjp-Mebvtk ( Eye Multivitamin) 2,148 mcg-113 mg-45 mg-17.4mg [...] TBEC One tablet by mouth daily ASPIRIN [id number] KEELY RuddC Start: 10-07-2015 End: 11-16-2015 take 1 tablet by mouth once daily Aspirin 81 MG Tab.Chew Discontinued 81 mg PO DAILY October 07, 2015 1:00am November 16, 2015 6:12pm Start: 12-15-2010 End: 06-08-2016 take 1 tablet by mouth once daily ASPIRIN 81 MG TABS One tablet by mouth daily ASPIRIN [id number] Adenikejacob Morocho atorvastatin 10 mg oral tablet (20 [...] puff 2 x day BUDESONIDE-FORMOTEROL FUMARATE AERO [id number] Liam Heath MD Start: 05-20-2018 End: 01-19-2022 [...] TABS One tablet by mouth daily CALCIUM [id number] Marie Candelario RN Start: 02-29-2016 take 1 tablet by tomer th once daily CALCIUM 500 MG TABS One tablet by mouth daily CALCIUM [id number] Maylin Thompson RN carvedilol 25 mg oral [...] One tablet by mouth twice daily CARVEDILOL [id number] Fran Jewell MD Start: 12-15-2010 take 1 tablet by tomer th twice daily COREG 3.125 MG TABS One tablet by mouth twice daily CARVEDILOL [id number] Adenike Morocho Comment on above: Take 25 [...] GM SOLR q 12 hrs CEFTRIAXONE SODIUM [id number] Jessica Ordoñez cephalexin 500 mg oral capsule (1 source) Cephalosporin Antibacterial Start: 05-18-2017 take 1 tablet by mouth twice daily KEFLEX 500 MG CAPS One tablet by mouth twice daily CEPHALEXIN [id number] Bhavna Chiang PA-C chlorthalidone 50 mg oral tablet (5 sources) Thiazide-like Diuretic Start: 09-16-2013 End: 10-06-2015 take 1 tablet by mouth once daily CHLORTHALIDONE 50 MG TABS One tablet by mouth daily CHLORTHALIDONE [id number] Maylin Thompson, RN clopidogrel 75 mg oral tablet (2 sources) P2Y12 Platelet Inhibitor Start: 03-16-2017 End: 03-26-2017 take 1 tablet by mouth once daily PLAVIX 75 MG TABS One tablet by mouth daily CLOPIDOGREL BISULFATE 65229792048 Bhavna Chiang PA-C 12 hr dextromethorphan polistirex 6 mg/ml extended release suspension (20 sources) Uncompetitive P-gtoaxk-Y-asparta te Receptor Antagonist, Sigma-1 Agonist Start: 01-04-2022 End: 01-19-2022 take 1 mL by mouth every twelve hours as needed for cough Dextromethorphan Polistirex (Robitussin Er) 30 mg/5 mL suspension,extended rel 12 hr Discontinued 10 mL PO Q12H as needed for cough 89 0 January 04, 2022 12:00am January 19, 2022 1:11pm Start: 01-04-2022 End: 01-19-2022 take 1 mL by mouth every twelve hours Dextromethorphan Polistirex (Robitussin Er) 30 mg/5 mL suspension,extended rel 12 hr Discontinued 10 ML PO Q12H 89 January 04, 2022 12:00am January 19, 2022 1:11pm 12 hr dextromethorphan hydrobromide 30 mg / guaiFENesin 600 mg extended release oral tablet (4 sources) Uncompetitive W-xsbjyx-Y-aspartate Receptor Antagonist, Sigma-1 Agonist Start: 09-15-2015 End: 05-18-2017 take 1 tablet by mouth once daily MUCINEX DM 30-600 MG [id number] One tablet by mouth daily DEXTROMETHORPHAN-GUAIFENESIN [id number] Bhavna Chiang PA-C Start: 02-25-2013 End: 03-24-2014 take 1 tablet by mouth once daily MUCINEX DM 30-600 MG [id number] One table t by mouth daily DEXTROMETHORPHAN-GUAIFENESIN [id number] Bhavna Chiang PA-C 24 hr dilTIAZem hydrochloride [...] tablet by mouth twice daily ENALAPRIL MALEATE [id number] Bhavna Chiang PA-C esomeprazole 40 mg delayed release oral capsule (1 source) Proton Pump Inhibitor Start: 1 take 1 tablet by mouth once daily NEXIUM 40 MG CPDR One tablet by mouth daily ESOMEPRAZOLE MAGNESIUM 50051390324 Adenike Morocho ferrous sulfate (20 sources) Start: 9 [facility] IRON 325 (65 Fe) MG TABS 1 tablet 2 x day FERROUS SULFATE [id number] Liam Heath MD Start: 10-07-2015 End: 11-16-2015 take 1 tablet by mouth once daily Ferrous Sulfate (Iron (Ferrous Sulfate)) 325 MG tablet Discontinued 325 mg PO DAILY October 07, 2015 1:00am November 16, 2015 6:13pm Start: 09-15-2015 take 1 tablet by tomer th twice daily IRON 325 (65 Fe) MG TABS One tablet by mouth twice daily FERROUS SULFATE [id number] Bhavna Chiang PA-C Start: 09-15-2015 take 1 tablet by tomer th twice daily IRON 325 (65 Fe) MG TABS One tablet by mouth twice daily FERROUS SULFATE [id number] Isabel Williamson RAQUEL Start: 09-15-2015 take 2 tablets by mo uth once daily IRON 325 (65 Fe) MG TABS Two tablets by mouth daily FERROUS SULFATE [id number] Bunny Verdin MD Start: 09-15-2015 take 1 tablet by tomer th three times daily IRON 325 (65 Fe) MG TABS One tablet by mouth three times daily FERROUS SULFATE [id number] Marie Candelario RN Start: 02-25-2013 End: 03-24-2014 take 1 tablet by mouth once daily IRON TABS One tablet by mouth daily FERROUS SULFATE TABS [id number] Bhavna Chiang PA-C Start: 02-25-2013 take 1 tablet by tomer th once daily IRON TABS One tablet by mouth daily FERROUS SULFATE TABS [id number] Bunny Verdin MD Start: 12-15-2010 take 1 tablet by tomer th once daily FERROUS SULFATE 324 MG TABS One tablet by mouth daily FERROUS SULFATE 34957052452 Adenike Morocho fish oil (2 sources) Start: 2018 [facility] FISH OIL 1 000 MG ORAL LIQUID (OMEGA-3 FATTY ACIDS) 1 x day [facility] FISH OIL 1000 MG ORAL LIQUID (OMEGA-3 FATTY ACIDS) Liam Heath MD Start: 05-18-2017 take 1 tablet by tomer th once daily OMEGA-3 FISH OIL CAPS One tablet by mouth daily OMEGA-3 FATTY ACIDS CAPS [id number] Bhavna Chiang PA-C FLAXSEED OIL (OMEGA 3 [...] DISKUS 250-50 MCG/DOSE AEPB once daily FLUTICASONE-SALMETEROL [id number] Ana Moraes Start: 09-16-2013 ADVAIR DISKUS 100-50 MCG/DOSE AEPB Take as Directed FLUTICASONE-SALMETEROL [id number] Bunny Verdin MD Start: 09-16-2013 ADVAIR DISKUS 250-50 MCG/DOSE AEPB inhale 1 puff once daily FLUTICASONE-SALMETEROL [id number] Bunny Verdin MD Start: 09-16-2013 ADVAIR DISKUS 250-50 MCG/DOSE AEPB inhale 1 puff twice daily FLUTICASONE-SALMETEROL [id number] Bunny Verdin MD glipiZIDE 5 mg oral [...] mouth once daily GLIPIZIDE XL 10 MG [id number] One tablet by mouth daily GLIPIZIDE 52598141901 Fran Jewell MD Start: 12-15-2010 take 1 tablet by tomer th once daily GLIPIZIDE XL 10 MG [id number] One tablet by mouth daily GLIPIZIDE 55060609537 Adenike Morocho End: 05-18-2017 take 1 tablet by mouth twice daily GLIPIZIDE 10 MG TABS One tablet by mouth twice daily GLIPIZIDE [id number] Missy Guerra LPN glyBURIDE 2.5 mg oral tablet (20 sources) [...] One tablet by mouth twice daily GLYBURIDE [id number] Fran Jewell MD hydrALAZINE hydrochloride 50 mg [...] tablet by mouth twice daily HYDRALAZINE HCL [id number] Bunny Verdin MD Start: 09-15-2015 take 1 tablet by tomer th three times daily HYDRALAZINE HCL 50 MG TABS One tablet by mouth three times daily HYDRALAZINE HCL [id number] Bunny Verdin MD Start: 08-24-2015 End: 09-03-2015 take 1 tablet by mouth every eight hours Hydralazine 50 MG tablet Discontinued 50 mg PO EVERY 8 HOURS August 24, 2015 1:00am September 03, 2015 9:45am INJECTION DEVICE FOR INSULIN (1 source) Start: 2018 INPEN [id number] KAYLEE total 28 units per day INJECTION DEVICE FOR INSULIN [id number] Liam Heath MD insulin detemir 100 unt/ml injectable solution (20 sources) Insulin Analogue Start: 07-13-2017 End: 10-09-2017 inject 12 [IU] by subcutaneous injection at bedtime Insulin Detemir U-100 100 UNIT/ML solution Discontinued 12 U SQ AT BEDTIME July 13, 2017 1:00am October 09, 2017 11:23am blood sugar Start: 05-18-2017 LEVEMIR FLEXTO UCH SOPN 12 units at bedtime INSULIN DETEMIR SOPN [id number] Bhavna Chiang PA-C Start: 08-24-2015 End: 09-03-2015 Insulin Detemir U-100 (Levem ir (Bkc)) 100 UNITS/ML Insuln.Pen Discontinued 25 U SC [...] before dinner, sliding scale INSULIN LISPRO SOPN [id number] Bhavna Chiang PA-C ipratropium bromide 0.2 mg/ml inhalant solution (2 sources) Anticholinergic Start: 02-29-2016 End: 03-03-2016 IPRATROPIUM BROMIDE 0.02 % SOLN (Atrovent) Via nebulizer as directed IPRATROPIUM BROMIDE 15850800501 Maylin Thompson RN Lactobacillus acidophilus (20 sources) [...] 2020 12:28pm take 1 capsule by mo uth twice [...] One tablet by mouth twice daily LEVETIRACETAM [id number] Missy Guerra LPN Start: 08-24-2015 End: 09-03-2015 [...] 1 tablet 2 x day LOSARTAN POTASSIUM [id number] Liam Heath MD Start: 05-20-2018 End: 12-15-2020 take 1 tablet by mouth twice daily Losartan 50 mg tablet Discontinued 50 mg PO TWICE A DAY 180 3 December 01, 2019 9:44am December 15, 2020 5:41pm Start: 01-07-2018 End: 05-06-2018 Losartan 100 mg tablet Disco ntinued 50 mg PO DAILY 90 January 07, 2018 4:06pm May 06, 2018 4:35pm blood pressure Start: 01-07-2018 End: 05-06-2018 take 50 mg by mouth once daily Losartan Discontinued 5 0 MG PO DAILY 90 January 07, 2018 4:06pm May 06, 2018 4:35pm Start: 11-16-2017 End: 01-07-2018 take 1 tablet by mouth once daily Losartan 100 mg tablet Discontinued 100 mg PO DAILY 90 November 16, 2017 9:36am January 07, 2018 [...] One tablet by mouth daily LOSARTAN POTASSIUM [id number] Bunny Verdin MD lovastatin 40 mg oral tablet (2 sources) HMG-CoA Reductase Inhibitor Start: 12-15-2010 End: 09-14-2011 take 1 tablet by mouth at bedtime LOVASTATIN 40 MG TABS One tablet by mouth at bedtime. LOVASTATIN [id number] Adenike Morocho Magnesium (20 sources) Start: 05-20-2018 [...] tablet by mouth twice daily MAGNESIUM OXIDE [id number] Bhavna Chiang PA-C Start: 10-06-2014 End: 07-02-2015 take 1 tablet by mouth once daily MAG-200 TABS One tablet by mouth daily MAGNESIUM OXIDE TABS [id number] Maylin Thompson RN Start: 10-06-2014 take 1 tablet by tomer th once daily MAG-200 TABS One tablet by mouth daily MAGNESIUM OXIDE TABS [id number] Bunny Verdin MD Start: 06-06-2012 take 200 mg by mouth once yessi y MAG-OXIDE 400 MG TABS 200mg One tablet by mouth daily MAGNESIUM OXIDE [id number] Filipe Kowalski RN Start: 06-06-2012 End: 09-16-2013 take 1 tablet by mouth once daily MAG-OXIDE 400 MG TABS One tablet by mouth daily MAGNESIUM OXIDE [id number] Bunny Verdin MD metFORMIN hydrochloride 500 mg [...] Start: 03-12-2012 take 0.5 tablet by m outh twice daily [id number] MG TABS (METFORMIN HCL) 1/2 tablet by mouth twice daily Fran Jewell MD Start: 09-14-2011 take 1 tablet by tomer th twice daily [id number] MG TABS (METFORMIN HCL) One tablet by [...] (20 sources) Corticosteroid Start: 01-20-20 End: 03-19-20 Mometasone (Asmanex Hfa) 200 mcg/actuation HFA aerosol [...] MCG/INH AEPB Take as directed MOMETASONE FUROATE [id number] Bunny Verdin MD take 2 puff(s) by [...] One tablet by mouth daily MULTIPLE MINERALS-VITAMINS [id number] Bunny Verdin MD Start: 09-16-2013 End: 03-24-2014 take 1 tablet by mouth once daily CITRACAL PLUS TABS w/ magnesium One tablet by mouth daily MULTIPLE MINERALS-VITAMINS [id number] Bhavna Chiang PA-C MULTIPLE VITAMIN (1 source) Start: 12-15-2010 take 1 tablet by mouth once daily MULTIVITAMINS TABS One tablet by mouth daily MULTIPLE VITAMIN [id number] Adenike Morocho MULTIPLE VITAMIN (1 source) Start: 02-25-2014 MULTIVITAMINS CAPS 1 capsue once daily MULTIPLE VITAMIN [id number] Esperanza Marvin LPN Multivitamin With Folic Acid [...] mouth twice daily NIFEDIPINE ER 60 MG [id number] One tablet by mouth twice daily NIFEDIPINE [id number] Bhavna Chiang PA-C Start: 12-15-2010 End: 02-25-2013 take 1 tablet by mouth twice daily NIFEDIPINE ER 60 MG [id number] One tablet by mouth twice daily NIFEDIPINE [id number] Bunny Verdin MD [place]-3 Fatty Acids-Fish Oil 1 EACH capsule (13 sources) Start: 05-20-2018 End: 11-03-2024 [place]-3 Fatty Acids-Fish Oil 1 EACH capsule Discontinued 1 NMA PO DAILY May 20, 2018 12:00am November 03, 2024 1:01pm supplement Start: 05-20-2018 End: 11-03-2024 [place]-3 Fatty Acids-Fish Oil 1 EACH capsule Discontinued 1 NMA PO DAILY May 20, 2018 12:00am November 03, 2024 1:01pm omeprazole 40 mg delayed release oral capsule (20 sources) Proton Pump Inhibitor Start: 02-11-2022 End: 09-17-2024 take 1 capsule by mouth once daily Omeprazole 40 mg capsule,delayed release(DR/EC) Discontinued 40 mg PO DAILY 90 September 04, 2023 11:57am September 17, 2024 3:40pm Patient going out of state for 3 months Start: 10-07-2015 End: 11-16-2015 take 1 capsule by mouth once daily Omeprazole 20 MG capsule Discontinued 20 mg PO DAILY October 07, 2015 1:00am November 16, 2015 6:13pm Start: 02-25-2013 take 1 tablet by tomer twice daily OMEPRAZOLE 20 MG CPDR One tablet by mouth twice daily OMEPRAZOLE [id number] Marie Candelario RN Start: 06-04-2012 End: 05-29-2013 take 1 tablet by mouth once daily OMEPRAZOLE 20 MG CPDR One tablet by mouth daily OMEPRAZOLE [id number] Bunny Verdin MD Comment on above: Take [...] tablet Discontinued 20 mg PO daily 30 3 February 18, 2018 10:49am March 20, 2018 3:10pm pioglitazone 45 mg oral tablet (5 sources) Peroxisome Proliferator Receptor alpha Agonist, Peroxisome Proliferator Receptor gamma Agonist, Thiazolidinedione Start: 04-07-2015 End: 09-15-2015 take 1 tablet by mouth once daily ACTOS 45 MG TABS One tablet by mouth daily PIOGLITAZONE HCL [id number] Bhavna Chiang PA-C Start: 09-14-2011 End: 03-24-2014 take 1 tablet by mouth once daily ACTOS 45 MG TABS (PIOGLITAZONE HCL) One tablet by mouth daily ACTOS 45 MG TABS (PIOGLITAZONE HCL) Bhavna Chiang PA-C Start: 12-15-2010 take 1 tablet by tomer th once daily ACTOS 30 MG TABS One tablet by mouth daily PIOGLITAZONE HCL [id number] Adenike Morocho potassium chloride 20 meq extended release oral tablet (10 sources) Start: 11-24-2024 End: 12-12-2024 take 1 tablet by mouth once daily Potassium Chloride 20 mEq tablet extended release Discontinued 20 meq PO daily 90 3 November 24, 2024 12:00am December 12, 2024 1:39pm pravastatin sodium 80 mg oral tablet (4 sources) HMG-CoA Reductase Inhibitor Start: 02-25-2014 PRAVASTATIN SODIUM 80 MG TABS 1 tablet once daily PRAVASTATIN SODIUM [id number] Esperanza Marvin RAQUEL Start: 09-14-2011 PRAVACHOL 80 M G TABS 06/25/15 HOLD for 1 week and call (one by mouth at bed time) PRAVASTATIN SODIUM [id number] Marie Candelario RN predniSONE 20 mg oral [...] TABS One tablet by mouth daily PREDNISONE [id number] Bunny Verdin MD PROBIOTIC PRODUCT (1 source) take 1 tablet by mouth twice daily PROBIOTIC DAILY CAPS One tablet by mouth twice daily PROBIOTIC PRODUCT [id number] Rachid Malone DO PROBIOTIC PRODUCT (1 source) Start: 10-03-19 19 ACIDOPHILUS PEARLS CAPS 1 capsule 2 x day PROBIOTIC PRODUCT [id number] Liam Heath MD spironolactone 25 mg oral [...] One half tablet by mouth daily SPIRONOLACTONE [id number] Melonie Tello RN Start: 08-24-2015 End: 09-03-2015 [...] capsule by in halation twice daily Tiotropium [place] (Spiriva With Handihaler) 18 MCG capsule, w/inhalation device Active 18 MCG IH TWICE A DAY May 20, 2018 12:00am Start: 05-20-2018 take 18 ug by inhala tion twice daily Tiotropium [place] Active 18 MCG IH TWICE A DAY May 20, 2018 12:00am Start: 10-07-2015 End: 11-16-2015 take 1 puff(s) by inhalation once daily Tiotropium [place] (Spiriva With Handihaler) 1 PUFF inhaler Discontinued 1 NMA INHALATION DAILY October 07, 2015 1:00am November 16, 2015 6:15pm Start: 10-07-2015 End: 11-16-2015 take 1 puff(s) by inhalation once daily Tiotropium [place] (Spiriva With Handihaler) 1 PUFF inhaler Discontinued 1 PUFF INHALATION DAILY October 07, 2015 1:00am November 16, 2015 6:15pm Start: 12-15-2010 SPIRIVA HANDIH ALER 18 MCG CAPS once daily TIOTROPIUM BROMIDE MONOHYDRATE [id number] Ana Moraes Comment on above: inhale once daily Inhale 18 mcg as ins tructed once daily. Tiotropium [place] (Spiriva With Handihaler) 18 MCG capsule, w/inhalation device (14 sources) Start: 05-20-2018 End: 12-25-2023 Tiotropium [place] (Spiriva With Handihaler) 18 MCG capsule, w/inhalation device Discontinued 18 ug IH TWICE A DAY May 20, 2018 12:00am December 25, 2023 12:52am congestion Start: 05-20-2018 End: 12-25-2023 Tiotropium [place] (Spiriva With Handihaler) 18 MCG capsule, w/inhalation device Discontinued 18 ug IH TWICE A DAY May 20, 2018 12:00am December 25, 2023 12:52am Start: 05-20-2018 End: 12-25-2023 take 1 capsule by inhalation twice daily Tiotropium [place] (Spiriva With Handihaler) 18 MCG capsule, w/inhalation [...] TABS One tablet by mouth daily VALSARTAN [id number] Bhavna Chiang PA-C Start: 02-25-2013 End: 05-29-2013 take 1 tablet by mouth once daily DIOVAN 160 MG TABS One tablet by mouth daily VALSARTAN [id number] Bhavna Chiang PA-C vitamin d 1000 unt oral tablet (1 source) Start: 12-26-2016 take 1 tablet by mouth once daily VITAMIN D 1000 UNIT TABS One tablet by mouth daily CHOLECALCIFEROL [id number] Bunny Verdin MD warfarin sodium 5 mg oral tablet (13 sources) Vitamin K Antagonist Start: 11-16-2011 COUMADIN 1 MG TABS Current dose 6 mg a day WARFARIN SODIUM [id number] Marie Candelario RN Start: 08-08-2011 End: 09-15-2015 COUMADIN 5 MG TABS Take as d irected WARFARIN SODIUM [id number] Ana Luisa Ford RN Start: 08-01-2011 End: 09-16-2013 COUMADIN 1 MG TABS Take as d irected-current dose 5 mg Sat thru Tues, 6 mg Sun-Sun WARFARIN SODIUM [id number] Fran Jewell MD Problems Active Problems Problem [...] disease (20 sources) Atherosclerotic heart disease of [place] coronary artery without angina pectoris; Translations: [Coronary [...] sources) Long-term current use of anticoagulant; 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: [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] Onset: 6 Resolved: 4 03-28-2018 Episodic Other aftercare (1 source) Wound finding; Translations: [Encounter for other specified aftercare] Episodic Other aftercare (1 source) 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; Translations: [Anticoagulant long-term [...] sources) Dark stools; Translations: [Other fecal abnormalities] 09-05-2021 Episodic Other hereditary and degenerative nervous system [...] (1 source) Long-term drug therapy; 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] Onset: 1 12-15-2010 Unclassified [...] aftercare (7 sources) Patient encounter status; Translations: [salvage determiner (current) use of antithrombotics/antip latelets] Onset: 07-15-2017 01-23-2018 Episodic Other aftercare (9 sources) Long-term current use of oral hypoglycemic medication; Translations: [skilled nursing (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) use of oral hypoglycemic drugs] Onset: 07-15-2017 01-23-2018 Episodic Other aftercare (9 sources) Long-term current use of insulin; Translations: [skilled nursing (current) use of insulin] Onset: 04-27-2017 01-23-2018 Episodic Other aftercare (2 sources) Long-term current use of drug therapy; Translations: [skilled nursing (current) use of antithrombotics/antip latelets] Onset: 07-15-2017 Resolved: 03-29-2024 03-29-2024 Episodic Other aftercare (2 sources) Drug therapy finding; Translations: [Other custodial (current) drug therapy] Resolved: 09-11-2019 09-11-2019 Episodic [...] Test Name Value Interpretation Reference Range Facility Echo Complete W/ Contraston 05-20-2025 Echo Complete W/ Contrast [facility] [address] [place] [address] Echo Complete W/ Contrast 05/20/25 0802 MR#: [id number] Acct: [id number] Name: RACHNA RECINOS Rep #: [id number] : [id number] 84 From: Bunny Verdin MD Attending Dr: Dr. Katherin Edge MD Status: REG C Ordering Dr: Katherin Edge MD Date: 05/20/25 Location: [facility] Sex: M C Admitted: Reason For Study Reason For Study: CONGESTIVE HEART FAILURE Procedure This was a 2D Doppler, Color Flow transthoracic echocardiogram. The study was technically difficult. Contrast injection was performed. Exam performed in department. Left Ventricle Normal LV size. Moderate concentric left ventricular hypertrophy. Stage 1 diastolic dysfunction. The left ventricular ejection fraction is 50 %. No regional wall motion abnormalities noted. Right Ventricle Normal RV size. ICD or pacer leads identified within the right ventricle. Normal systolic function. Atria Normal left atrium. Normal right atrium. Mitral Valve Normal mitral valve. Tricuspid Valve Normal tricuspid valve. Mild (1+) tricuspid valve insufficiency. Pulmonary artery systolic pressure is 28 mmHg. Aortic Valve Trisinus/trileaflet aortic valve. Mild focal aortic valve thickening. Trivial aortic valve insufficiency. Pulmonic Valve Normal pulmonic valve. Mild (1+) pulmonic valve insufficiency. Great Vessels Normal aortic root. The pulmonary artery is normal size. Inferior vena cava collapse with respiration. Pericardium/Pleural No pericardial effusion. Medication 22 gauge I.V. with prn adaptor inserted into right arm. Diluted definity 2ml given slow IV push to enhance endocardial definition. MMode/2D Measurements Calculations LVIDd: 4.7 cm IVSd: 1.4 cm LVOT diam: 2.0 cm LVIDs: 3.4 cm LVPWd: 1.3 cm RVDd: 4.0 cm FS: 26.6 % LVOT area: 3.1 cm2 asc Aorta Diam: 3.3 cm LAV(MOD-bp): 118.8 ml LVAd ap4: 43.3 cm2 LAV(MOD-bp) Indexed: 54.7 ml/m2 LVLd ap4: 8.6 cm LAV(MOD-sp2): 115.8 ml EDV(MOD-sp4): 176.1 ml LAV(MOD-sp4): 122.5 ml EDV(sp4-el): 184.6 ml LVAs ap4: 33.6 cm2 LVLs ap4: 7.8 cm ESV(MOD-sp4): 118.4 ml ESV(sp4-el): 122.4 ml EF(MOD-sp4): 32.8 % EF(sp4-el): 33.7 % LVAd ap2: 43.4 cm2 SV(MOD-sp4): 57.7 ml SV(MOD-sp2): 70.8 ml LVLd ap2: 8.9 cm SI(MOD-sp4): 26.6 ml/m2 SI(MOD-sp2): 32.6 ml/m2 EDV(MOD-sp2): 175.1 ml EDV(sp2-el): 179.7 ml LVAs ap2: 31.7 cm2 LVLs ap2: 8.1 cm ESV(MOD-sp2): 104.3 ml ESV(sp2-el): 106.1 ml EF(MOD-sp2): 40.4 % SV(sp4-el): 62.2 ml Ao sinus diam: 3.[address] Junction: 2.8 cm LA dimension(2D): 5.2 cm LA A4 area: 33.3 cm2 RA A4 area: 18.1 cm2 TAPSE: 1.7 cm Time Measurements MV dec time: 0.20 sec Doppler Measurements Calculations MV E max sherie: 71.8 cm/sec Lat Peak E' Sherie: 8.2 cm/sec Med Peak E' Sherie: 6.4 cm/sec MV A max sherie: 88.6 cm/sec E/E' lat: 8.8 E/E' med: 11.3 MV E/A: 0.81 MV dec slope: 363.8 cm/sec2 Ao V2 max: 163.5 cm/sec AI max sherie: 340.2 cm/sec Ao max P.7 mmHg AI max P.3 mmHg Ao V2 mean: 116.5 cm/sec AI dec slope: 154.5 cm/sec2 Ao mean P.2 mmHg AI P1/2t: 645.0 msec Ao V2 VTI: 37.3 cm AV (velocity ratio): 0.70 SUSANA(I,D): 2.2 cm2 SUSANA(V,D): 2.3 cm2 LV V1 max: 119.2 cm/sec SV(LVOT): 82.5 ml PA V2 max: 116.7 cm/sec LV V1 max P.7 mmHg LV V1 mean P.3 mmHg LV V1 mean: 83.6 cm/sec LV V1 VTI: 26.3 cm PI end-d sherie: 95.5 cm/sec TR max sherie: 246.4 cm/sec TR max P.3 mmHg ECHO/Echo Complete W/ Contrast Interpretation Summary Normal LV size. Moderate concentric left ventricular hypertrophy. Stage 1 diastolic dysfunction. The left ventricular ejection fraction is 50 %. Pulmonary artery systolic pressure is 28 mmHg. Contrast injection was performed. Ordering Physician: Katherin Edge Referring Physician: Kathrein Edge Performed By: Dacia Lenz RDCS 05/20/25 1102 Date (more content not included)... Normal [facility] Anion gap in Serum or Plasma Ordered By: Michelle Mcfarlane on 04-28-2025 Anion gap [Moles/Vol] 13 mmol/L - [facility] BUN/creatinine ratioOrdered By: Michelle Mcfarlane on 04-28-2025 Urea nitrogen/Creatinine [Mass ratio] 14.5 mg/mg - [facility] Basic Metabolic Profile (BMP )on 04-28-2025 BUN/CRE 14.5 RATIO Normal 06-15 [facility] Comment on above: Performed By: #### L 500.2500, L501.0900 #### [facility] [address] [place], [address] Calcium [Mass/Vol] 9.4 mg/dL Normal 7.6-11.0 [facility] Comment on above: Performed By: #### L 500.2500, L501.0900 #### [facility] [address] [place], [address] Chloride [Moles/Vol] 110 mmol/L High 98-108 [facility] Comment on above: Performed By: #### L 500.2500, L501.0900 #### [facility] [address] [place], [address] CO2 [Moles/Vol] 21.4 mmol/L Normal 21.0-32.0 [facility] Comment on above: Performed By: #### L 500.2500, L501.0900 #### [facility] [address] [place], [address] Creatinine [Mass/Vol] 1.86 mg/dL High 0.70-1.20 [facility] Comment on above: Performed By: #### L 500.2500, L501.0900 #### [facility] [address] [place] [place], [address] GAP 13 Normal 5-15 [facility] Comment on above: Performed By: #### L 500.2500, L501.0900 #### [facility] [address] [place], [address] GFR/1.73 sq M.predicted among non-blacks MDRD (S/P/Bld) [Vol rate/Area] 35 mL/min/{1.73_m2} Low >60 [facility] Comment on above: Result Comment: mL/m in/1.73m2 CKD-EPI Creatinine Equation (2020) Performed By: #### L 500.2500, L501.0900 #### [facility] [address] [place], [address] Glucose [Mass/Vol] 71 mg/dL Normal 70-99 [facility] Comment on above: Performed By: #### L 500.2500, L501.0900 #### [facility] [address] [place], [address] Potassium [Moles/Vol] 3.6 mmol/L Normal 3.3-5.1 [facility] Comment on above: Result Comment: Hemo lysis present, Results??could be affected. ?? Performed By: #### L 500.2500, L501.0900 #### [facility] [address] [place], [address] Sodium [Moles/Vol] 144 mmol/L Normal 133-145 [facility] Comment on above: Performed By: #### L 500.2500, L501.0900 #### [facility] [address] [place], [address] Urea nitrogen [Mass/Vol] 27 mg/dL High 4-19 [facility] Comment on above: Performed By: #### L 500.2500, L501.0900 #### [facility] [address] [place], [address] Carbon dioxide, total [Moles /volume] in Central venous bloodOrdered By: Michelle Mcfarlane on 04-28-2025 CO2 [Moles/Vol] 21.4 mmol/L 21.0-32.0 [facility] Chloride assayOrdered By: Eduardo Mcfarlane on 04-28-2025 Chloride [Moles/Vol] 110 mmol/L High 98-108 [facility] Glomerular filtration rate ( GFR) estimation/1.73 sq m using serum, plasma, or whole bOrdered By: Michelle Mcfarlane on 04-28-2025 GFR/1.73 sq M.predicted among non-blacks MDRD (S/P/Bld) [Vol rate/Area] 35 mL/min/{1.73_m2} Low >60 [facility] Comment on above: mL/min/1.73m2 CKD-EP I Creatinine Equation (2020) Potassium measurement (mass/ volume)Ordered By: Michelle Mcfarlane on 04-28-2025 Potassium (Unsp spec) [Mass/Vol] 3.6 mmol/L 3.3-5.1 [facility] Comment on above: Hemolysis present, R esults could be affected. Protein+Creatinine Ratio,Uri neon 04-28-2025 PROT:CRE RATIO 400 mg/g CRE High 0-200 [facility] Comment on above: Performed By: #### L 500.2500, L501.0900 #### [facility] [address] [place], [address] Protein (U) [Mass/Vol] 28.2 mg/dL High 0.0-12.0 [facility] Comment on above: Performed By: #### L 500.2500, L501.0900 #### [facility] [address] [place], [address] UR CREAT 70.50 mg/dL Normal 39.00-259. 00 [facility] Comment on above: Performed By: #### L 500.2500, L501.0900 #### [facility] [address] [place], [address] Random urine creatinine baljeet urement (mass/volume)Ordered By: Michelle Mcfarlane on 04-28-2025 Creatinine Unsp time (U) [Mass/Vol] 70.50 mg/dL 39.00-259. 00 [facility] Serum creatinine measurement (mass/volume)Ordered By: Michelle Mcfarlane on 04-28-2025 Creatinine [Mass/Vol] 1.86 mg/dL High 0.70-1.20 [facility] Serum glucose measurement (m ass/volume)Ordered By: Michelle Mcfarlane on 04-28-2025 Glucose [Mass/Vol] 71 mg/dL 70-99 [facility] Serum or plasma calcium baljeet urement (mass/volume)Ordered By: Michelle Mcfarlane on 04-28-2025 Calcium [Mass/Vol] 9.4 mg/dL 7.6-11.0 [facility] Serum or plasma urea nitroge n measurement (mass/volume)Ordered By: Michelle Mcfarlane on 04-28-2025 Urea nitrogen [Mass/Vol] 27 mg/dL High 4-19 [facility] Sodium levelOrdered By: Valdez Mcfarlane on 04-28-2025 Sodium [Moles/Vol] 144 mmol/L 133-145 [facility] Urine protein measurement (m ass/volume)Ordered By: Michelle Mcfarlane on 04-28-2025 Protein (U) [Mass/Vol] 28.2 mg/dL High 0.0-12.0 [facility] Urine protein/creatinine mas s ratioOrdered By: Michelle Mcfarlane on 04-28-2025 Protein/Creatinine (U) [Mass ratio] 400 mg/g CRE High 0-200 [facility] CBC-Complete Blood Cnt No Di ffon 04-21-2025 Erythrocyte distribution width (RBC) [Ratio] 14.0 % Normal 11.6-14.6 [facility] Comment on above: Order Comment: Order Date: 04/21/25Order Info: [id number] - CBC Performed By: #### L 500.2500, L501.0900 #### [facility] [address] [place] [place], [address] Hematocrit (Bld) [Volume fraction] 36.5 % Low 40-54 [facility] Comment on above: Order Comment: Order Date: 04/21/25Order Info: [id number] - CBC Performed By: #### L 500.2500, L501.0900 #### [facility] [address] [place], [address] Hemoglobin (Bld) [Mass/Vol] 11.6 g/dL Low 13.0-16.5 [facility] Comment on above: Order Comment: Order Date: 04/21/25Order Info: [id number] - CBC Performed By: #### L 500.2500, L501.0900 #### [facility] [address] [place], [address] MCH (RBC) [Entitic mass] 29.7 pg Normal 27.0-32.0 [facility] Comment on above: Order Comment: Order Date: 04/21/25Order Info: [id number] - CBC Performed By: #### L 500.2500, L501.0900 #### [facility] [address] [place], [address] MCHC (RBC) [Mass/Vol] 31.8 g/dL Low 32-36 [facility] Comment on above: Order Comment: Order Date: 04/21/25Order Info: [id number] - CBC Performed By: #### L 500.2500, L501.0900 #### [facility] [address] [place], [address] MCV (RBC) [Entitic vol] 93.6 fL Normal 80-94 [facility] Comment on above: Order Comment: Order Date: 04/21/25Order Info: [id number] - CBC Performed By: #### L 500.2500, L501.0900 #### [facility] [address] [place], [address] Platelet mean volume (Bld) [Entitic vol] 9.5 fL Normal 6.2-12.0 [facility] Comment on above: Order Comment: Order Date: 04/21/25Order Info: [id number] - CBC Performed By: #### L 500.2500, L501.0900 #### [facility] [address] [place], [address] Platelets (Bld) [#/Vol] 174 10*3/uL Normal 150-450 [facility] Comment on above: Order Comment: Order Date: 04/21/25Order Info: [id number] - CBC Performed By: #### L 500.2500, L501.0900 #### [facility] [address] [place], [address] RBC (Bld) [#/Vol] 3.90 10*6/uL Low 4.6-6.2 [facility] Comment on above: Order Comment: Order Date: 04/21/25Order Info: [id number] - CBC Performed By: #### L 500.2500, L501.0900 #### [facility] [address] [place], [address] RDW SD 48.1 fl High 35.1-43.9 [facility] Comment on above: Order Comment: Order Date: 04/21/25Order Info: [id number] - CBC Performed By: #### L 500.2500, L501.0900 #### [facility] [address] [place], [address] WBC (Bld) [#/Vol] 7.8 10*3/uL Normal 4.4-11.0 [facility] Comment on above: Order Comment: Order Date: 04/21/25Order Info: [id number] - CBC Performed By: #### L 500.2500, L501.0900 #### [facility] [address] [place], [address] Erythrocyte distribution wid th ratioOrdered By: Katherin Edge on 04-21-2025 Erythrocyte distribution width (RBC) [Ratio] 14.0 % 11.6-14.6 [facility] Erythrocyte distribution wid th standard deviationOrdered By: Katherin Edge on 04-21-2025 Erythrocyte distribution width (RBC) [Ratio] 48.1 fl High 35.1-43.9 [facility] Ferritinon 04-21-2025 Ferritin [Mass/Vol] 133 ng/mL Normal 37-417 [facility] Comment on above: Order Comment: Order Date: 04/21/25Order Info: [id number] - TSHOrder Info: [id number] - IBCOrder Info: [id number] - ALONDRA Performed By: #### L 500.2500, L501.0900 #### [facility] [address] [place], [address] Hematocrit Auto (Bld) [Volum e fraction]Ordered By: Katherin Edge on 04-21-2025 Hematocrit (Bld) [Volume fraction] 36.5 % Low 40-54 [facility] Hemoglobin A1con 04-21-2025 HbA1c (Bld) [Mass fraction] 7.1 % High <=5.6 [facility] Comment on above: Order Comment: Order Date: 04/21/25Order Info: [id number] - A1C Result Comment: Norm al < 5.7 % Prediabetic 5.7 - 6.4 % Diabetic >or= 6.5 % Please note range changes. Performed By: #### L 500.2500, L501.0900 #### [facility] [address] [place], [address] Hemoglobin A1c percentageOrd ered By: Katherin Edge on 04-21-2025 HbA1c (Bld) [Mass fraction] 7.1 % High <5.7 [facility] Comment on above: Normal < 5.7 % Predi abetic 5.7 - 6.4 % Diabetic >or= 6.5 % Please note range changes. Hemoglobin measurementOrdere d By: Katherin Edgarke on 04-21-2025 Hemoglobin (Bld) [Mass/Vol] 11.6 g/dL Low 13.0-16.5 [facility] Iron measurement (mass/mass) Ordered By: Katherin Edge on 04-21-2025 Iron (Unsp spec) [Mass/Mass] 35 ug/dL Low 65-175 [facility] Iron+Iron Binding Capacityon 04-21-2025 Iron [Mass/Vol] 35 ug/dL Low 65-175 [facility] Comment on above: Order Comment: Order Date: 04/21/25Order Info: 6-3 - TSHOrder Info: [id number] - IBCOrder Info: [id number] - ALONDRA Performed By: #### L 500.2500, L501.0900 #### [facility] [address] [place], [address] IRON SATURATION 14.0 Normal 9-55 [facility] Comment on above: Order Comment: Order Date: 04/21/25Order Info: 3015-3 - TSHOrder Info: [id number] - IBCOrder Info: [id number] - ALONDRA Performed By: #### L 500.2500, L501.0900 #### [facility] [address] [place], [address] TIBC 246 ug/dL Low 250-450 [facility] Comment on above: Order Comment: Order Date: 04/21/25Order Info: 6-3 - TSHOrder Info: [id number] - IBCOrder Info: 6-4 - ALONDRA Performed By: #### L 500.2500, L501.0900 #### [facility] [address] [place], [address] UIBC 211 ug/dL Low 228-428 [facility] Comment on above: Order Comment: Order Date: 04/21/25Order Info: 6-3 - TSHOrder Info: [id number] - IBCOrder Info: [id number] - ALONDRA Performed By: #### L 500.2500, L501.0900 #### [facility] [address] [place], [address] MCV (mean corpuscular volume ) determinationOrdered By: Katherin Edge on 04-21-2025 MCV (RBC) [Entitic vol] 93.6 fL 80-94 [facility] Mean corpuscular hemoglobin (MCH) determinationOrdered By: Katherin Edge on 04-21-2025 MCH (RBC) [Entitic mass] 29.7 pg 27.0-32.0 [facility] Mean corpuscular hemoglobin concentration (MCHC) determinationOrdered By: Katherin Edge on 04-21-2025 MCHC (RBC) [Mass/Vol] 31.8 g/dL Low 32-36 [facility] Mean platelet volume determi nationOrdered By: Katherin Edge on 04-21-2025 Platelet mean volume (Bld) [Entitic vol] 9.5 fL 6.2-12.0 [facility] No Panel InformationOrdered By: Katherin Edge on 04-21-2025 Unsaturated Iron Binding Capacity 211 ug/dL Low 228-428 [facility] Platelet countOrdered By: Eliazar Edge on 04-21-2025 Platelets (Bld) [#/Vol] 174 10*3/uL 150-450 [facility] RBC Auto (Bld) [#/Vol]Ordere d By: Katherin Edge on 04-21-2025 RBC (Bld) [#/Vol] 3.90 10*6/uL Low 4.6-6.2 [facility] Serum or plasma ferritin george surement (mass/volume)Ordered By: Katherin Edge on 04-21-2025 Ferritin [Mass/Vol] 133 ng/mL 37-417 [facility] Serum or plasma iron saturat ion measurement (mass fraction)Ordered By: Katherin Edge on 04-21-2025 Iron saturation [Mass fraction] 14.0 % 9-55 [facility] TSH DL <= 0.005 mIU/L QnOrde red By: Katherin Edge on 04-21-2025 TSH Qn 1.960 uIU/mL 0.300-4.20 0 [facility] Thyroid Stim Hormone (TSH)on 04-21-2025 TSH 1.960 uIU/mL Normal 0.300-4.20 0 [facility] Comment on above: Order Comment: Order Date: 04/21/25Order Info: 6 - TSHOrder Info: [id number] - IBCOrder Info: [id number] - ALONDRA Performed By: #### L 500.2500, L501.0900 #### [facility] [address] [place], [address] Vitamin B12on 04-21-2025 Cobalamin (Vitamin B12) [Mass/Vol] 453 pg/mL Normal 180-914 [facility] Comment on above: Order Comment: Order Date: 04/21/25Order Info: [id number] - TSHOrder Info: [id number] - IBCOrder Info: [id number] - ALONDRA Performed By: #### L 500.2500, L501.0900 #### [facility] [address] [place], [address] Vitamin B12 ser/plasOrdered By: Katherin Edge on 04-21-2025 Cobalamin (Vitamin B12) [Mass/Vol] 453 pg/mL 180-914 [facility] Vitamin D,25 Hydroxyon 04-21 Vitamin D 25-OH 59.4 ng/mL Normal 30-100 [facility] Comment on above: Order Comment: Order Date: 04/21/25Order Info: [id number] - TSHOrder Info: [id number] - IBCOrder Info: [id number] - ALONDRA Result Comment: Latanya min D Status Deficiency: <20 ng/mL (50nmol/L) Insufficiency: 20-30 ng/mL (50-75 nmol/L) Sufficiency: 30-100 ng/mL (75-250 nmol/L) Toxicity: >100 ng/mL (>250 nmol/L) Performed By: #### L 500.2500, L501.0900 #### [facility] [address] [place], [address] White blood cell (WBC) count Ordered By: Katherin Edge on 04-21-2025 WBC (Bld) [#/Vol] 7.8 10*3/uL 4.4-11.0 [facility] 04-08-2025 CNOV Office Visit (AGCARD POB) SUGEYRACHNA Franck ([id number]) 1940 M NFR Date Time Provider Department 04/08/25 10:00 AM ESTRELLITA SOTO AGCARDPOB During your visit today, we recorded the following information about you: Pulse Respiration Blood pressure Weight 66/minute 18/minute 120/60 91.6 kg Height 1.803 m Estrellita Soto MD 04/09/2025 5:37 PM Signed PRIMARY CARE PHYSICIAN: Katherin [place] [facility] [address] [place] [address] Patient Care Team: Katherin Edge MD as PCP - General (Internal Medicine) Estrellita Tony V as Specialty Basic Acoustic Analyst (Internal Medicine) Marj Marcial CNP as Specialty Basic Acoustic Analyst (Family Medicine) Estrellita Soto MD as Specialty Basic Acoustic Analyst (Cardiology) Bunny Verdin MD as Specialty Basic Acoustic Analyst (Cardiology) Maribeth Mcfarlane MD as Specialty Basic Acoustic Analyst (Nephrology) CHIEF COMPLAINT: Follow up for arrhythmia, ICD HISTORY OF PRESENT ILLNESS: Mr. Recinos is a 84 year old male who presents today for a cardiovascular medicine follow-up visit. Recording using ambient [employer] software for draft documentation of the visit was discussed with the patient/authorized member services representative; all questions welcomed and answered. Patient/authorized member services representative agreed to proceed History from previous notes, edited as needed and/or generated by dictation with use of AI.: Patient Overview: Mr. Recinos has a history of zlo-sb-lsehiqvd cardiac arrest that occurred in June 2015. A single-chamber transvenous ICD system was implanted via the left side of the chest in July 2015 for secondary prevention. In October 2015, the ICD system was extracted due to Enterococcus faecalis sepsis, and a subcutaneous ICD was implanted in January 2016. The ICD has been followed by [facility]. He underwent CABG in [...] an 84-year-old male with a history of gmn-ns-yktzewzd cardiac arrest, s/p CABG, and s/p subcutaneous ICD implantation, presenting for a follow-up visit. The patient reports no recent issues with his ICD, including no shocks or malfunctions. He denies experiencing any chest pain, dyspnea, or syncope. He has not undergone any recent surgeries and is reportedly on a "no surgery list" due to high risk. His medical history is significant for an lrn-bp-gxaqxoaj cardiac arrest in 06/2015, followed by the [...] ICD shock, but it was discontinued in 2018. He is currently followed by the [facility], with home transmissions sent every Sunday (he states although this seems to be frequent, typically there are routine transmissions every 3 months). 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 He is currently taking atorvastatin [...] 10/2015 CAD (coronary artery disease) Cardiac arrest ([facility]) 07/23/2015: VF documented by EMS upon arrival, defibrillated with 200 Joules to achieve ROSC within 9 minutes of EMS being called Cardiomyopathy ([facility]) LVEF 35% by echo 11/03/2015 Chronic low back pain Chronic systolic heart failure (HCC) CKD (chronic kidney disease) Complete left bundle branch block (LBBB) COPD (chronic obstructive pulmonary disease) (HCC) Essential hypertension GERD (gastroesophageal reflux disease) History of coronary artery bypass graft x 2 04/27/2017 History o (more content not included)... Normal [facility] ECG B/O W INTERP (MED OFFICE )on 04-08-2025 Interpretation and review of laboratory results Abnormal [facility] Sinus rhythm 67 bpm; first-degree AV block (AK 260 ms); left bundle branch block (QRS duration 154 ms); QTc 473 ms [facility] Micro[facility]b:Creat Ratio,Random URon 03-23-2025 MALB:CREAT 358.2 mg/g CRE High <30 mg/g CRE [facility] Comment on above: Result Comment: AMENDED REPORT 03/23/252037 MALB:CREAT previously reported as: 3581.6 mg/g CRE Performed By: #### L 500.2500, L501.0900 #### [facility] [address] [place], [place] [address] [place], [address] Anion gap in Serum or Plasma Ordered By: Shu Gotti on 02-25-2025 Anion gap [Moles/Vol] 13 mmol/L - [facility] BUN/creatinine ratioOrdered By: Shu Gotti on 02-25-2025 Urea nitrogen/Creatinine [Mass ratio] 16.8 mg/mg - [facility] Basic Metabolic Profile (BMP )on 02-25-2025 BUN/CRE 16.8 RATIO Normal 10-20 [facility] Comment on above: Performed By: #### L 500.2500, L501.0900 #### [facility] [address] [place], [address] Calcium [Mass/Vol] 9.1 mg/dL Normal 7.6-11.0 [facility] Comment on above: Performed By: #### L 500.2500, L501.0900 #### [facility] [address] [place], [address] Chloride [Moles/Vol] 105 mmol/L Normal 98-108 [facility] Comment on above: Performed By: #### L 500.2500, L501.0900 #### [facility] [address] [place], [address] CO2 [Moles/Vol] 26.2 mmol/L Normal 21.0-32.0 [facility] Comment on above: Performed By: #### L 500.2500, L501.0900 #### [facility] [address] [place], [address] Creatinine [Mass/Vol] 1.87 mg/dL High 0.70-1.20 [facility] Comment on above: Performed By: #### L 500.2500, L501.0900 #### [facility] [address] [place], [address] GAP 13 Normal 5-15 [facility] Comment on above: Performed By: #### L 500.2500, L501.0900 #### [facility] [address] [place], [address] GFR/1.73 sq M.predicted among non-blacks MDRD (S/P/Bld) [Vol rate/Area] 35 mL/min/{1.73_m2} Low >60 [facility] Comment on above: Result Comment: mL/m in/1.73m2 CKD-EPI Creatinine Equation (2020) Performed By: #### L 500.2500, L501.0900 #### [facility] [address] [place], [address] Glucose [Mass/Vol] 111 mg/dL High 70-99 [facility] Comment on above: Performed By: #### L 500.2500, L501.0900 #### [facility] [address] [place], [address] Potassium [Moles/Vol] 3.5 mmol/L Normal 3.3-5.1 [facility] Comment on above: Performed By: #### L 500.2500, L501.0900 #### [facility] [address] [place], [address] Sodium [Moles/Vol] 144 mmol/L Normal 133-145 [facility] Comment on above: Performed By: #### L 500.2500, L501.0900 #### [facility] [address] [place], [address] Urea nitrogen [Mass/Vol] 31 mg/dL High 4-19 [facility] Comment on above: Performed By: #### L 500.2500, L501.0900 #### [facility] [address] [place], [address] Carbon dioxide, total [Moles /volume] in Central venous bloodOrdered By: Shu Gotti on 02-25-2025 CO2 [Moles/Vol] 26.2 mmol/L 21.0-32.0 [facility] Chloride assayOrdered By: Harpal Gotti on 02-25-2025 Chloride [Moles/Vol] 105 mmol/L 98-108 [facility] Glomerular filtration rate ( GFR) estimation/1.73 sq m using serum, plasma, or whole bOrdered By: Shu Gotti on 02-25-2025 GFR/1.73 sq M.predicted among non-blacks MDRD (S/P/Bld) [Vol rate/Area] 35 mL/min/{1.73_m2} Low >60 [facility] Comment on above: mL/min/1.73m2 CKD-EP I Creatinine Equation (2020) Potassium measurement (mass/ volume)Ordered By: Shu Gotti on 02-25-2025 Potassium (Unsp spec) [Mass/Vol] 3.5 mmol/L 3.3-5.1 [facility] Serum creatinine measurement (mass/volume)Ordered By: Shu Gotti on 02-25-2025 Creatinine [Mass/Vol] 1.87 mg/dL High 0.70-1.20 [facility] Serum glucose measurement (m ass/volume)Ordered By: Shu Gotti on 02-25-2025 Glucose [Mass/Vol] 111 mg/dL High 70-99 [facility] Serum or plasma calcium baljeet urement (mass/volume)Ordered By: Shu Gotti on 02-25-2025 Calcium [Mass/Vol] 9.1 mg/dL 7.6-11.0 [facility] Serum or plasma urea nitroge n measurement (mass/volume)Ordered By: Shu Gotti on 02-25-2025 Urea nitrogen [Mass/Vol] 31 mg/dL High 4-19 [facility] Sodium levelOrdered By: Ladarius Gotti on 02-25-2025 Sodium [Moles/Vol] 144 mmol/L 133-145 [facility] Neurology Visit Reporton Neurology Visit Report [facility] [address], [address] [place] [address] OFFICE VISIT Date of Service: 01/21/25 MR#: [id number] Acct: [id number] Name: RACHNA RECINOS Rep #: [id number] : 1940 Provider: Dr. Douglas torres MD Age/Sex: 84/M Location: [facility] Status: Signed HPI HPI Details: The patient is a 84-year-old right handed male who presents for a 6 month follow up on mild cognitive impairment. This patient presented with his and patient's daughter Tanesha was on the phone from [place]. Patient is being evaluated for mild cognitive [...] air Intake Visit Reasons: 6 M FU Cathead Operator Required: No Accompanied by: Allergies latex Allergy [...] supplement 0 (more content not included)... Normal [facility] Venous Duplex US, Unilateral on 12-15-2024 Venous Duplex US, Unilateral [facility] [address] [place] [address] Venous Duplex US, Unilateral 12/15/24 2775 MR#: [id number] Acct: [id number] Name: RACHNA RECINOS Rep #: [id number] : 1940 84 From: Jose Carlos Alex MD Attending Dr: Dr. Katherin Edge MD Status: JEFF CORDOBA Ordering Dr: Katherin Edge MD Date: 12/15/24 Location: [facility] Sex: M [...] report was called and/or faxed to Katherin Edge MD. VL/Venous Duplex US, Unilateral Interpretation Summary Deep veins of the right upper extremity are patent and compressible segmentally. There is no evidence of deep vein thrombosis. Superficial veins of the right upper extremity are patent and compressible segmentally. There is no evidence of superficial vein thrombosis. Ordering Physician: Katherin Edge Referring Physician: Katherin Edge Performed By: Cristine Munoz, RVT ??? 12/15/241905 Date Jose Carlos Alex MD CC: Dr. Katherin Edge MD Date Dictated: 12/15/24 1535 Date Transcribed: 12/15/241905 Activities Assistant: Signed Normal [facility] Venous duplex ultrasound rep ortOrdered By: Jose Carlos Alex on 12-15-2024 US Vein [facility] [address] [place] [address] Venous Duplex US, Unilateral 12/15/24 1535 MR#: [id number] Acct: [id number] Name: RACHNA RECINOS Rep #:[id number] : 1940 84 From: Jose Carlos Owen Attending Dr: Dr. Katherin Edge MD S tatus: REG CLI Ordering Dr: Katherin Edge MD Date: Location: [facility] Sex: M C [...] report was called and/or faxed to Katherin Edge MD. VL/Venous Duplex US, Unilateral Interpretation Summary Deep veins of the right upper extremity are patent and compressible segmentally.There is no evidence of deep vein thrombosis. Superficial veins of the right upper extremity are patent and compressible segmentally. There is no evidence of superficial vein thrombosis. Ordering Physician: Katherin Edge Referring Physician: Katherin Edge Performed By: Cristine Munoz, RVT ??? 12/15/241905 Date _ Jose Carlos Alex MD CC: Dr. Katherin Edge MD ~ Date Dictated: 12/15/241534 Date Transcribed: 12/15/241905 Activities Assistant: Signed [facility] Work Phone: Anion gap in Serum or Plasma Ordered By: Kimmy Sanchez on 12-01-2024 Anion gap [Moles/Vol] 11 mmol/L - [facility] BUN/creatinine ratioOrdered By: Kimmy Sanchez on 12-01-2024 Urea nitrogen/Creatinine [Mass ratio] 17.3 mg/mg - [facility] Basic Metabolic Profile (BMP )on 12-01-2024 BUN/CRE 17.3 RATIO Normal 06-15 [facility] Comment on above: Performed By: #### L 500.2500 #### [facility] [address] [place], [address] Calcium [Mass/Vol] 8.2 mg/dL Normal 7.6-11.0 [facility] Comment on above: Performed By: #### L 500.2500 #### [facility] [address] [place], [address] Chloride [Moles/Vol] 108 mmol/L Normal 98-108 [facility] Comment on above: Performed By: #### L 500.2500 #### [facility] [address] [place], [address] CO2 [Moles/Vol] 24.1 mmol/L Normal 21.0-32.0 [facility] Comment on above: Performed By: #### L 500.2500 #### [facility] [address] [place], [address] Creatinine [Mass/Vol] 1.70 mg/dL High 0.70-1.20 [facility] Comment on above: Performed By: #### L 500.2500 #### [facility] [address] [place], [address] GAP 11 Normal 5-15 [facility] Comment on above: Performed By: #### L 500.2500 #### [facility] [address] [place], [address] GFR/1.73 sq M.predicted among non-blacks MDRD (S/P/Bld) [Vol rate/Area] 39 mL/min/{1.73_m2} Low >60 [facility] Comment on above: Result Comment: mL/m in/1.73m2 CKD-EPI Creatinine Equation (2020) Performed By: #### L 500.2500 #### [facility] [address] [place], [address] Glucose [Mass/Vol] 96 mg/dL Normal 70-99 [facility] Comment on above: Performed By: #### L 500.2500 #### [facility] [address] [place], [address] Potassium [Moles/Vol] 3.9 mmol/L Normal 3.3-5.1 [facility] Comment on above: Performed By: #### L 500.2500 #### [facility] [address] [place], [address] Sodium [Moles/Vol] 143 mmol/L Normal 133-145 [facility] Comment on above: Performed By: #### L 500.2500 #### [facility] [address] [place], [address] Urea nitrogen [Mass/Vol] 29 mg/dL High 4-19 [facility] Comment on above: Performed By: #### L 500.2500 #### [facility] [address] [place], [address] Carbon dioxide, total [Moles /volume] in Central venous bloodOrdered By: Kimmy Sanchez on 12-01-2024 CO2 [Moles/Vol] 24.1 mmol/L 21.0-32.0 [facility] Chloride assayOrdered By: Juaquin Sanchez on 12-01-2024 Chloride [Moles/Vol] 108 mmol/L 98-108 [facility] GFR/1.73 sq M.predicted farooq g non-blacks MDRD (S/P/Bld) [Vol rate/Area]Ordered By: Kimmy Sanchez on 12-01-2024 Estimated GFR (MDRD) Non-Af Amer 39 Low >60 [facility] Comment on above: mL/min/1.73m2 CKD-EP I Creatinine Equation (2020) Glomerular filtration rate ( GFR) estimation/1.73 sq m using serum, plasma, or whole bOrdered By: Kimmy Sanchez on 12-01-2024 GFR/1.73 sq M.predicted among non-blacks MDRD (S/P/Bld) [Vol rate/Area] 39 mL/min/{1.73_m2} Low >60 [facility] Comment on above: mL/min/1.73m2 CKD-EP I Creatinine Equation (2020) Potassium (Unsp spec) [Mass/ Vol]Ordered By: Kimmy Sanchez on 12-01-2024 Potassium [Moles/Vol] 3.9 mmol/L 3.3-5.1 [facility] Potassium measurement (mass/ volume)Ordered By: Kimmy Sanchez on 12-01-2024 Potassium (Unsp spec) [Mass/Vol] 3.9 mmol/L 3.3-5.1 [facility] Serum creatinine measurement (mass/volume)Ordered By: Kimmy Sanchez on 12-01-2024 Creatinine [Mass/Vol] 1.70 mg/dL High 0.70-1.20 [facility] Serum glucose measurement (m ass/volume)Ordered By: Kimmy Sanchez on 12-01-2024 Glucose [Mass/Vol] 96 mg/dL 70-99 [facility] Serum or plasma calcium baljeet urement (mass/volume)Ordered By: Kimmy Sanchez on 12-01-2024 Calcium [Mass/Vol] 8.2 mg/dL 7.6-11.0 [facility] Serum or plasma urea nitroge n measurement (mass/volume)Ordered By: Kimmy Sanchez on 12-01-2024 Urea nitrogen [Mass/Vol] 29 mg/dL High - [facility] Sodium levelOrdered By: Emy Sanchez on 12-01-2024 Sodium [Moles/Vol] 143 mmol/L 133-145 [facility] Anion gap in Serum or Plasma Ordered By: Edward Rosado on 11-26-2024 Anion gap [Moles/Vol] 11 mmol/L 5- [facility] BUN/creatinine ratioOrdered By: Edward Rosado on 11-26-2024 Urea nitrogen/Creatinine [Mass ratio] 19.4 mg/mg - [facility] Basic Metabolic Profile (BMP )on 11-26-2024 BUN/CRE 19.4 RATIO Normal - [facility] Comment on above: Performed By: #### L 500.2500, L501.0900 #### [facility] [address] [place], [address] Calcium [Mass/Vol] 9.0 mg/dL Normal 7.6-11.0 [facility] Comment on above: Performed By: #### L 500.2500, L501.0900 #### [facility] [address] [place], [address] Chloride [Moles/Vol] 107 mmol/L Normal 98-108 [facility] Comment on above: Performed By: #### L 500.2500, L501.0900 #### [facility] [address] [place], [address] CO2 [Moles/Vol] 24.7 mmol/L Normal 21.0-32.0 [facility] Comment on above: Performed By: #### L 500.2500, L501.0900 #### [facility] [address] [place], [address] Creatinine [Mass/Vol] 2.37 mg/dL High 0.70-1.20 [facility] Comment on above: Performed By: #### L 500.2500, L501.0900 #### [facility] [address] [place], [address] GAP 11 Normal 5-15 [facility] Comment on above: Performed By: #### L 500.2500, L501.0900 #### [facility] [address] [place], [address] GFR/1.73 sq M.predicted among non-blacks MDRD (S/P/Bld) [Vol rate/Area] 26 mL/min/{1.73_m2} Low >60 [facility] Comment on above: Result Comment: mL/m in/1.73m2 CKD-EPI Creatinine Equation (2020) Performed By: #### L 500.2500, L501.0900 #### [facility] [address] [place], [address] Glucose [Mass/Vol] 125 mg/dL High 70-99 [facility] Comment on above: Performed By: #### L 500.2500, L501.0900 #### [facility] [address] [place], [address] Potassium [Moles/Vol] 4.4 mmol/L Normal 3.3-5.1 [facility] Comment on above: Result Comment: Hemo lysis present, Results??could be affected. ?? Performed By: #### L 500.2500, L501.0900 #### [facility] [address] [place], [address] Sodium [Moles/Vol] 143 mmol/L Normal 133-145 [facility] Comment on above: Performed By: #### L 500.2500, L501.0900 #### [facility] [address] [place], [address] Urea nitrogen [Mass/Vol] 46 mg/dL High 4-19 [facility] Comment on above: Performed By: #### L 500.2500, L501.0900 #### [facility] [address] [place], [address] Carbon dioxide, total [Moles /volume] in Central venous bloodOrdered By: Edward Rosado on 11-26-2024 CO2 [Moles/Vol] 24.7 mmol/L 21.0-32.0 [facility] Chloride assayOrdered By: Francisca Rosado on 11-26-2024 Chloride [Moles/Vol] 107 mmol/L 98-108 [facility] GFR/1.73 sq M.predicted farooq g non-blacks MDRD (S/P/Bld) [Vol rate/Area]Ordered By: Edward Rsoado on 11-26-2024 Estimated GFR (MDRD) Non-Af Amer 26 Low >60 [facility] Comment on above: mL/min/1.73m2 CKD-EP I Creatinine Equation (2020) Glomerular filtration rate ( GFR) estimation/1.73 sq m using serum, plasma, or whole bOrdered By: Edward Rosado on 11-26-2024 GFR/1.73 sq M.predicted among non-blacks MDRD (S/P/Bld) [Vol rate/Area] 26 mL/min/{1.73_m2} Low >60 [facility] Comment on above: mL/min/1.73m2 CKD-EP I Creatinine Equation (2020) Potassium (Unsp spec) [Mass/ Vol]Ordered By: Edward Rosado on 11-26-2024 Potassium [Moles/Vol] 4.4 mmol/L 3.3-5.1 [facility] Comment on above: Hemolysis present, R esults could be affected. Potassium measurement (mass/ volume)Ordered By: Edward Rosado on 11-26-2024 Potassium (Unsp spec) [Mass/Vol] 4.4 mmol/L 3.3-5.1 [facility] Comment on above: Hemolysis present, R esults could be affected. Serum creatinine measurement (mass/volume)Ordered By: Edward Rosado on 11-26-2024 Creatinine [Mass/Vol] 2.37 mg/dL High 0.70-1.20 [facility] Serum glucose measurement (m ass/volume)Ordered By: Edward Rosado on 11-26-2024 Glucose [Mass/Vol] 125 mg/dL High 70-99 [facility] Serum or plasma calcium baljeet urement (mass/volume)Ordered By: Edward Rosado on 11-26-2024 Calcium [Mass/Vol] 9.0 mg/dL 7.6-11.0 [facility] Serum or plasma urea nitroge n measurement (mass/volume)Ordered By: Edward Rosado on 11-26-2024 Urea nitrogen [Mass/Vol] 46 mg/dL High 4-19 [facility] Sodium levelOrdered By: Edward Rosado on 11-26-2024 Sodium [Moles/Vol] 143 mmol/L 133-145 [facility] Chest PA and Lateralon 11-19 Chest PA and Lateral [facility] Services [address] [place] [address] Chest PA and Lateral MR#: [id number] Acct: [id number] Name: RACHNA RECINOS Rep #: [id number] : 1940 M 84 From: Estrellita Bobby MD PCP: Dr. Katherin Edge MD Status: REG CLI Study: Chest PA and Lateral Date of Exam: 11/19/24 Exam# [id number] Ordering Dr: Katherin Edge MD EXAM: X-ray chest PA and lateral [...] mild pulmonary edema, clinically correlate. Reading Location: [facility] CC: Dr. Katherin Edge MD Activities Assistant: Signed Normal [facility] Chest 1 View (Portable)on Chest 1 View (Portable) [facility] Imaging Services [address], [place] [id number] Chest 1 View (Portable) MR#: [id number] Acct: [id number] Name: RACHNA RECINOS Rep #: [id number] : 1940 M 84 From: Jayy Ortiz MD PCP: Dr. Katherin Edge MD Status: DEP ER Study: Chest 1 View (Portable) Date of Exam: 11/10/24 Exam# [id number] Ordering Dr: Gavi Crandall DO PROCEDURE: CHEST [...] 2. Additional description as above. Reading Location: [facility] CC: Dr. Katherin Edge MD; Dr. Gavi Crandall DO Activities Assistant: Signed Normal [facility] Emergency Department Summary on 11-10-2024 Emergency Department Summary [facility] Medical Records Department [address] [place] [address] Emergency Department Summary 11/10/24 MR#: [id number] Acct: [id number] Name: RACHNA RECINOS Rep #: [id number] : 1940 84 From: Gavi Crandall DO PCP: Dr. Katherin Edge MD Status:[facility] ER Location: ED ADDENDUM by Dr. Romeo [...] history of COPD Disposition: Discharge home 11/10/24 1071 Cosigner Signature (if applicable): cc: Dr. Katherin Edge MD * Signed HPI History of Present [...] edema. Denies sick contacts. Denies chest pain. [facility] Medical History Spinal stenosis at L4-L5 level [...] (valve) prolapse Hypokalemia Atherosclerotic heart disease of [place] coronary artery without angina pectoris Malignant pericardial [...] 5 unit subcut DINNER DM 05/20/18 0 03/20/20 18:00 History (3 mL) subcutaneous pen [...] (Flonase Allergy (more content not included)... Normal [facility] Influenza virus A and B and SARS-CoV-2 (COVID-19) and Respiratory syncytial virus RNAOrdered By: Gavi Crandall on 11-10-2024 SARS-CoV-2 (COVID-19) RNA BURAK+probe Ql (Unsp spec) Influenzae A Abnormal [facility] M100.678on 11-10-2024 M100.678 Copy of report sent to Infection Control Printer [id number] 11/10/24 2631 LUPE. Normal Reference Range = Negative FLUABV+SARS-CoV-2+RSV Pnl Resp BURAK+probe GeneXpert Instrument, PCR method RESULTS CALLED TO DMCLAUDER 11/10/24 0719 Reid Ruiz. REPORT READ BACK BY SAME. SARS-CoV-2 (COVID 19) Negative INFLUENZA A A Positive A INFLUENZA B Negative RSV PCR Negative INFLUENZAE A Normal [facility] Comment on above: Performed By: #### L 500.2500, L501.0900 #### [facility] [address] [place], [address] Albumin DL <= 20 mg/L (U) [M ass/Vol]Ordered By: Shu Gotti on 10-28-2024 Urine Random Microalbumin 505.0 mg/L NO RANGE EST. [facility] Anion gap in Serum or Plasma Ordered By: Shu Gotti on 10-28-2024 Anion gap [Moles/Vol] 14 mmol/L 5-15 [facility] BUN/creatinine ratioOrdered By: Shu Gotti on 10-28-2024 Urea nitrogen/Creatinine [Mass ratio] 16.5 mg/mg 10-20 [facility] Bilirubin, totalOrdered By: Shu Gotti on 10-28-2024 Bilirubin [Mass/Vol] 0.26 mg/dL 0.00-1.30 [facility] Calculated very low density lipoprotein (VLDL) cholesterol measurementOrdered By: Shu Gotti on 10-28-2024 Calculated very low density lipoprotein (VLDL) cholesterol measurement 11 mg/dL 5-40 [facility] VLDL Cholesterol 11 mg/dL -40 [facility] Carbon dioxide, total [Moles /volume] in Central venous bloodOrdered By: Shu Gotti on 10-28-2024 CO2 [Moles/Vol] 21.8 mmol/L 21.0-32.0 [facility] Chloride assayOrdered By: Harpal Gotti on 10-28-2024 Chloride [Moles/Vol] 111 mmol/L High 98-108 [facility] Comprehensive Metabolic Prof ilon 10-28-2024 Albumin [Mass/Vol] 4.0 g/dL Normal 3.4-4.8 [facility] Comment on above: Performed By: #### L 501.9520, L506.0400, L500.4100, L501.9985, L500.4050, L501.74069, L509.1000, L506.1001 #### [facility] [address] [place], [address] Albumin/Globulin [Mass ratio] 1.7 {ratio} Normal 0.9-2.4 [facility] Comment on above: Performed By: #### L 501.9520, L506.0400, L500.4100, L501.9985, L500.4050, L501.23978, L509.1000, L506.1001 #### [facility] [address] [place], [address] ALK PHOS 69 U/L Normal 40-129 [facility] Comment on above: Performed By: #### L 501.9520, L506.0400, L500.4100, L501.9985, L500.4050, L501.11966, L509.1000, L506.1001 #### [facility] [address] [place], [address] ALT [Catalytic activity/Vol] 18 U/L Normal <=46 [facility] Comment on above: Performed By: #### L 501.9520, L506.0400, L500.4100, L501.9985, L500.4050, L501.47838, L509.1000, L506.1001 #### [facility] [address] [place], [address] AST [Catalytic activity/Vol] 19 U/L Normal <=37 [facility] Comment on above: Performed By: #### L 501.9520, L506.0400, L500.4100, L501.9985, L500.4050, L501.39403, L509.1000, L506.1001 #### [facility] [address] [place], [address] Bilirubin [Mass/Vol] 0.26 mg/dL Normal 0.00-1.30 [facility] Comment on above: Performed By: #### L 501.9520, L506.0400, L500.4100, L501.9985, L500.4050, L501.75012, L509.1000, L506.1001 #### [facility] [address] [place], [address] BUN/CRE 16.5 RATIO Normal 10-20 [facility] Comment on above: Performed By: #### L 501.9520, L506.0400, L500.4100, L501.9985, L500.4050, L501.48670, L509.1000, L506.1001 #### [facility] [address] [place], [address] Calcium [Mass/Vol] 8.7 mg/dL Normal 7.6-11.0 [facility] Comment on above: Performed By: #### L 501.9520, L506.0400, L500.4100, L501.9985, L500.4050, L501.64924, L509.1000, L506.1001 #### [facility] [address] [place], [address] Chloride [Moles/Vol] 111 mmol/L High 98-108 [facility] Comment on above: Performed By: #### L 501.9520, L506.0400, L500.4100, L501.9985, L500.4050, L501.67303, L509.1000, L506.1001 #### [facility] [address] [place], [address] CO2 [Moles/Vol] 21.8 mmol/L Normal 21.0-32.0 [facility] Comment on above: Performed By: #### L 501.9520, L506.0400, L500.4100, L501.9985, L500.4050, L501.95466, L509.1000, L506.1001 #### [facility] [address] [place], [address] Creatinine [Mass/Vol] 1.79 mg/dL High 0.70-1.20 [facility] Comment on above: Performed By: #### L 501.9520, L506.0400, L500.4100, L501.9985, L500.4050, L501.78982, L509.1000, L506.1001 #### [facility] [address] [place], [address] GAP 14 Normal 5-15 [facility] Comment on above: Performed By: #### L 501.9520, L506.0400, L500.4100, L501.9985, L500.4050, L501.27763, L509.1000, L506.1001 #### [facility] [address] [place], [address] GFR/1.73 sq M.predicted among non-blacks MDRD (S/P/Bld) [Vol rate/Area] 36 mL/min/{1.73_m2} Low >60 [facility] Comment on above: Result Comment: mL/m in/1.73m2 CKD-EPI Creatinine Equation (2020) Performed By: #### L 501.9520, L506.0400, L500.4100, L501.9985, L500.4050, L501.89055, L509.1000, L506.1001 #### [facility] [address] [place], [address] Globulin (S) [Mass/Vol] 2.3 g/dL Normal 2.2-4.2 [facility] Comment on above: Performed By: #### L 501.9520, L506.0400, L500.4100, L501.9985, L500.4050, L501.64714, L509.1000, L506.1001 #### [facility] [address] [place], [address] Glucose [Mass/Vol] 83 mg/dL Normal 70-99 [facility] Comment on above: Performed By: #### L 501.9520, L506.0400, L500.4100, L501.9985, L500.4050, L501.85792, L509.1000, L506.1001 #### [facility] [address] [place], [address] Potassium [Moles/Vol] 3.5 mmol/L Normal 3.3-5.1 [facility] Comment on above: Performed By: #### L 501.9520, L506.0400, L500.4100, L501.9985, L500.4050, L501.10092, L509.1000, L506.1001 #### [facility] [address] [place], [address] Sodium [Moles/Vol] 146 mmol/L High 133-145 [facility] Comment on above: Performed By: #### L 501.9520, L506.0400, L500.4100, L501.9985, L500.4050, L501.66380, L509.1000, L506.1001 #### [facility] [address] [place], [address] T PROT 6.4 g/dL Normal 5.9-8.4 [facility] Comment on above: Performed By: #### L 501.9520, L506.0400, L500.4100, L501.9985, L500.4050, L501.93633, L509.1000, L506.1001 #### [facility] [address] [place], [address] Urea nitrogen [Mass/Vol] 30 mg/dL High 4-19 [facility] Comment on above: Performed By: #### L 501.9520, L506.0400, L500.4100, L501.9985, L500.4050, L501.40023, L509.1000, L506.1001 #### [facility] [address] [place], [address] Creatinine Unsp time (U) [Ma ss/Vol]Ordered By: Shu Gotti on 10-28-2024 Creatinine (U) [Mass/Vol] 141.00 mg/dL 39-259 [facility] Free T3on 10-28-2024 Free T3 [Mass/Vol] 2.1 pg/mL Low 2.18-3.98 [facility] Comment on above: Performed By: #### L 501.9520, L506.0400, L500.4100, L501.9985, L500.4050, L501.33912, L509.1000, L506.1001 #### [facility] [address] [place], [place], [id number] Free D8Vlhpbiw By: Shu mishra on 10-28-2024 Free T3 [Mass/Vol] 2.1 pg/mL Low 2.18-3.98 [facility] Free Triiodothyronine (T3) pg/dL 2.1 pg/mL Low 2.18-3.98 [facility] GFR/1.73 sq M.predicted farooq g non-blacks MDRD (S/P/Bld) [Vol rate/Area]Ordered By: Shu Gotti on 10-28-2024 Estimated GFR (MDRD) Non-Af Amer 36 Low >60 [facility] Comment on above: mL/min/1.73m2 CKD-EP I Creatinine Equation (2020) Glomerular filtration rate ( GFR) estimation/1.73 sq m using serum, plasma, or whole bOrdered By: Suh Gotti on 10-28-2024 GFR/1.73 sq M.predicted among non-blacks MDRD (S/P/Bld) [Vol rate/Area] 36 mL/min/{1.73_m2} Low >60 [facility] Comment on above: mL/min/1.73m2 CKD-EP I Creatinine Equation (2020) Hemoglobin A1con 10-28-2024 HbA1c (Bld) [Mass fraction] 7.2 % Normal <=5.6 [facility] Comment on above: Performed By: #### L 501.9520, L506.0400, L500.4100, L501.9985, L500.4050, L501.25500, L509.1000, L506.1001 #### [facility] [address] [place], [place], [id number] Hemoglobin A1c percentageOrd ered By: Shu Gotti on 10-28-2024 HbA1c (Bld) [Mass fraction] 7.2 % >5.7 [facility] L506.1001on 10-28-2024 Vitamin D 25-OH 51.3 ng/mL Normal 30-100 [facility] Comment on above: Result Comment: Latanya min D Status Deficiency: <20 ng/mL (50nmol/L) Insufficiency: 20-30 ng/mL (50-75 nmol/L) Sufficiency: 30-100 ng/mL (75-250 nmol/L) Toxicity: >100 ng/mL (>250 nmol/L) Performed By: #### L 500.2500, L501.0900 #### [facility] [address] [place], [place], [address] LDL calc ser/plasOrdered By: Shu Gotti on 10-28-2024 Cholesterol in LDL [Mass/Vol] 33 mg/dL [facility] Comment on above: Srhuffgyly=047-130 m g/dL & Higher Xhib=695 mg/dL or greater LDL Cholesterol, Calculated 33 mg/dL [facility] Comment on above: Pbujstnydp=295-060 m g/dL & Higher Pgik=020 mg/dL or greater Laboratory - Chemistry and C hemistry - challengeOrdered By: Shu Gotti on 10-28-2024 AST [Catalytic activity/Vol] 19 U/L <38 [facility] Lipid Profileon 10-28-2024 CHOL:HDL 1.73 Normal [facility] Comment on above: Performed By: #### L 501.9520, L506.0400, L500.4100, L501.9985, L500.4050, L501.35892, L509.1000, L506.1001 #### [facility] [address] [place], [address] Cholesterol [Mass/Vol] 104 mg/dL Normal <=200 [facility] Comment on above: Result Comment: Chol esterol level, Desirable <200 mg/dL Borderline high cholesterol 200-239 mg/dL High cholesterol >=240 mg/dL Recommendations of the NCEP Adult Treatment Panel for the following risk-cutoff thresholds for the [place] population. Performed By: #### L 501.9520, L506.0400, L500.4100, L501.9985, L500.4050, L501.16829, L509.1000, L506.1001 #### [facility] [address] [place], [address] Cholesterol in HDL [Mass/Vol] 60 mg/dL Normal [facility] Comment on above: Result Comment: Juhi onal Cholesterol Education Program (NCEP) guidelines: <40 mg/dL: Low HDL-cholesterol (major risk factor for CHD) >= 60 mg/dL: High HDL-cholesterol (negative risk factor for CHD) HDL-cholesterol is affected by a number of factors, e.g. smoking, exercise, hormones, sex and age. Performed By: #### L 501.9520, L506.0400, L500.4100, L501.9985, L500.4050, L501.35906, L509.1000, L506.1001 #### [facility] [address] [place], [address] Cholesterol in LDL [Mass/Vol] 33 mg/dL Normal [facility] Comment on above: Result Comment: Bord ufhuwg=892-136 mg/dL Higher Kvcu=750 mg/dL or greater Performed By: #### L 501.9520, L506.0400, L500.4100, L501.9985, L500.4050, L501.14385, L509.1000, L506.1001 #### [facility] [address] [place], [address] Cholesterol in VLDL [Mass/Vol] 11 mg/dL Normal 5-40 [facility] Comment on above: Performed By: #### L 501.9520, L506.0400, L500.4100, L501.9985, L500.4050, L501.29710, L509.1000, L506.1001 #### [facility] [address] [place], [address] Triglyceride [Mass/Vol] 53 mg/dL Normal [facility] Comment on above: Result Comment: The drugs N-Acetylcysteine and Metamizole may falsely depress this assay. Normal range: <150 mg/dL Borderline High: 150-199 mg/dL High: 200-499 mg/dL Very High: >500 mg/dL Performed By: #### L 501.9520, L506.0400, L500.4100, L501.9985, L500.4050, L501.33476, L509.1000, L506.1001 #### [facility] [address] [place], [address] Microalbumin/creat ratio urO rdered By: Shu Gotti on 10-28-2024 Urine Microalbumin/Creatini ne Ratio 3581.6 mg/g CRE [facility] PTH intactOrdered By: Omid Gotti on 10-28-2024 Parathyroid Hormone (Intact) 49 pg/mL [facility] PTHINon 10-28-2024 PTH 49 pg/mL Normal [facility] Comment on above: Performed By: #### L 501.9520, L506.0400, L500.4100, L501.9985, L500.4050, L501.03465, L509.1000, L506.1001 #### [facility] [address] [place], [place], [address] Potassium (Unsp spec) [Mass/ Vol]Ordered By: Shu Gotti on 10-28-2024 Potassium [Moles/Vol] 3.5 mmol/L 3.3-5.1 [facility] Potassium measurement (mass/ volume)Ordered By: Shu Gotti on 10-28-2024 Potassium (Unsp spec) [Mass/Vol] 3.5 mmol/L 3.3-5.1 [facility] Random urine creatinine baljeet urement (mass/volume)Ordered By: Shu Gotti on 10-28-2024 Creatinine Unsp time (U) [Mass/Vol] 141.00 mg/dL 39-259 [facility] Screening total cholesterol/ high density lipoprotein (HDL) cholesterol ratioOrdered By: Shu Gotti on 10-28-2024 Cholesterol.total/Cho lesterol in HDL [Mass ratio] 1.73 {ratio} [facility] Serum creatinine measurement (mass/volume)Ordered By: Shu Gotti on 10-28-2024 Creatinine [Mass/Vol] 1.79 mg/dL High 0.70-1.20 [facility] Serum globulin measurementOr dered By: Shu Gotti on 10-28-2024 Globulin (S) [Mass/Vol] 2.3 g/dL 2.2-4.2 [facility] Serum glucose measurement (m ass/volume)Ordered By: Shu Gotti on 10-28-2024 Glucose [Mass/Vol] 83 mg/dL 70-99 [facility] Serum or plasma alanine thomas otransferase (ALT) measurementOrdered By: Shu [facility] on 10-28-2024 ALT [Catalytic activity/Vol] 18 U/L <47 [facility] Serum or plasma albumin baljeet urement (mass/volume)Ordered By: [facility] on 10-28-2024 Albumin [Mass/Vol] 4.0 g/dL 3.4-4.8 [facility] Serum or plasma albumin/glob ulin mass ratioOrdered By: [facility] on 10-28-2024 Albumin/Globulin [Mass ratio] 1.7 {ratio} 0.9-2.4 [facility] Serum or plasma alkaline abel sphatase measurementOrdered By: [facility] on 10-28-2024 ALP [Catalytic activity/Vol] 69 U/L 40-129 [facility] Serum or plasma calcium baljeet urement (mass/volume)Ordered By: [facility] 10-28-2024 Calcium [Mass/Vol] 8.7 mg/dL 7.6-11.0 [facility] Serum or plasma cholesterol in HDL measurement (mass/volume)Ordered By: [facility] on 10-28-2024 Cholesterol in HDL [Mass/Vol] 60 mg/dL >40 [facility] Comment on above: National Cholesterol Education Program (NCEP) guidelines:<40 mg/dL: Low HDL-cholesterol (major risk factor for CHD)>= 60 mg/dL: High HDL-cholesterol (negative risk factor for CHD)HDL-cholesterol is affected by a number of factors, e.g. smoking, exercise, hormones, sex and age. Serum or plasma cholesterol measurement (mass/volume)Ordered By: [facility] on 10-28-2024 Cholesterol [Mass/Vol] 104 mg/dL <201 [facility] Comment on above: Cholesterol level, D esirable <200 mg/dLBorderline high cholesterol 200-239 mg/dLHigh cholesterol >=240 mg/dLRecommendations of the NCEP Adult Treatment Panel for the following risk-cutoff thresholds for the [place] population. Serum or plasma urea nitroge n measurement (mass/volume)Ordered By: [facility] on 10-28-2024 Urea nitrogen [Mass/Vol] 30 mg/dL High 4-19 [facility] Sodium levelOrdered By: Ladarius Gotti on 10-28-2024 Sodium [Moles/Vol] 146 mmol/L High 133-145 [facility] T4 Free Directon 10-28-2024 T4 FREE DIRECT 1.40 ng/dL Normal 0.76-1.46 [facility] Comment on above: Performed By: #### L 501.9520, L506.0400, L500.4100, L501.9985, L500.4050, L501.27200, L509.1000, L506.1001 #### [facility] [address] [place], [address] T4 freeOrdered By: Shu mishra on 10-28-2024 Free T4 [Mass/Vol] 1.40 ng/dL 0.76-1.46 [facility] TSH DL <= 0.005 mIU/L QnOrde red By: Shu Gotti on 10-28-2024 Thyroid Stimulating Hormone (TSH) 1.610 uIU/mL 0.300-4.20 0 [facility] TSH Qn 1.610 uIU/mL 0.300-4.20 0 [facility] Thyroid Stim Hormone (TSH)on 10-28-2024 TSH 1.610 uIU/mL Normal 0.300-4.20 0 [facility] Comment on above: Performed By: #### L 501.9520, L506.0400, L500.4100, L501.9985, L500.4050, L501.10687, L509.1000, L506.1001 #### [facility] [address] [place], [address] Total proteinOrdered By: Mario Alberto Gotti on 10-28-2024 Protein [Mass/Vol] 6.4 g/dL 5.9-8.4 [facility] Triglycerides measurementOrd ered By: Shu Gotti on 10-28-2024 Triglyceride [Mass/Vol] 53 mg/dL <199 [facility] Comment on above: The drugs N-Acetylcy steine and Metamizole may falsely depress this assay. Normal range: <150 mg/dLBorderline High: 150-199 mg/dLHigh: 200-499 mg/dLVery High: >500 mg/dL Urine albumin measurement wi detection limit of 20 mg/L or less (mass/volume)Ordered By: Shu Gotti on 10-28-2024 Albumin DL <= 20 mg/L (U) [Mass/Vol] 505.0 mg/L NO RANGE EST. [facility] Vitamin D, 25-hydroxyOrdered By: Shu Gotti on 10-28-2024 Vitamin D 25-Hydroxy 51.3 ng/mL 30-100 [facility] Comment on above: Vitamin D StatusDefi ciency: <20 ng/mL (50nmol/L)Insufficiency: 20-30 ng/mL (50-75 nmol/L)Sufficiency: 30-100 ng/mL (75-250 nmol/L)Toxicity: >100 ng/mL (>250 nmol/L) BUN/creatinine ratioOrdered By: Michelle Mcfarlane on 10-27-2024 Urea nitrogen/Creatinine [Mass ratio] 17.5 mg/mg - [facility] Basic Metabolic Profile (BMP )on 10-27-2024 Anion gap [Moles/Vol] 12 mmol/L Normal - [facility] Comment on above: Performed By: #### L 500.2500, L501.0900 #### [facility] [address] [place], [address] BUN/CRE 17.5 RATIO Normal - [facility] Comment on above: Performed By: #### L 500.2500, L501.0900 #### [facility] [address] [place], [address] Calcium [Mass/Vol] 8.5 mg/dL Normal 7.6-11.0 [facility] Comment on above: Performed By: #### L 500.2500, L501.0900 #### [facility] [address] [place], [address] Chloride [Moles/Vol] 111 mmol/L High 96-108 [facility] Comment on above: Performed By: #### L 500.2500, L501.0900 #### [facility] [address] [place], [address] CO2 [Moles/Vol] 23.1 mmol/L Normal 22.0-29.0 [facility] Comment on above: Performed By: #### L 500.2500, L501.0900 #### [facility] [address] [place], [address] Creatinine [Mass/Vol] 1.89 mg/dL High 0.70-1.20 [facility] Comment on above: Performed By: #### L 500.2500, L501.0900 #### [facility] [address] [place], [address] GFR/1.73 sq M.predicted among non-blacks MDRD (S/P/Bld) [Vol rate/Area] 34 mL/min/{1.73_m2} Low >60 [facility] Comment on above: Result Comment: mL/m in/1.73m2 CKD-EPI Creatinine Equation (2020) Performed By: #### L 500.2500, L501.0900 #### [facility] [address] [place], [address] Glucose [Mass/Vol] 162 mg/dL High 70-99 [facility] Comment on above: Performed By: #### L 500.2500, L501.0900 #### [facility] [address] [place], [address] Potassium [Moles/Vol] 3.6 mmol/L Normal 3.3-5.1 [facility] Comment on above: Result Comment: Hemo lysis present, Results??could be affected. ?? Performed By: #### L 500.2500, L501.0900 #### [facility] [address] [place], [address] Sodium [Moles/Vol] 146 mmol/L High 133-145 [facility] Comment on above: Performed By: #### L 500.2500, L501.0900 #### [facility] [address] [place], [address] Urea nitrogen [Mass/Vol] 33 mg/dL High 4-19 [facility] Comment on above: Performed By: #### L 500.2500, L501.0900 #### [facility] [address] [facility] [place], [address] Carbon dioxide measurementOr dered By: Michelle Mcfarlane on 10-27-2024 CO2 [Moles/Vol] 23.1 mmol/L 22.0-29.0 [facility] Chloride measurementOrdered By: Michelle Mcfarlane on 10-27-2024 Chloride [Moles/Vol] 111 mmol/L High 96-108 [facility] Creatinine Unsp time (U) [Ma ss/Vol]Ordered By: Michelle Mcfarlane on 10-27-2024 Creatinine (U) [Mass/Vol] 92.50 mg/dL 39-259 [facility] GFR/1.73 sq M.predicted farooq g non-blacks MDRD (S/P/Bld) [Vol rate/Area]Ordered By: Michelle Mcfarlane on 10-27-2024 Estimated GFR (MDRD) Non-Af Amer 34 Low >60 [facility] Comment on above: mL/min/1.73m2 CKD-EP I Creatinine Equation (2020) Glomerular filtration rate ( GFR) estimation/1.73 sq m using serum, plasma, or whole bOrdered By: Michelle Mcfarlane on 10-27-2024 GFR/1.73 sq M.predicted among non-blacks MDRD (S/P/Bld) [Vol rate/Area] 34 mL/min/{1.73_m2} Low >60 [facility] Comment on above: mL/min/1.73m2 CKD-EP I Creatinine Equation (2021) Protein+Creatinine Ratio,Uri neon 10-27-2024 PROT:CRE RATIO 640 mg/g CRE High 0-200 [facility] Comment on above: Performed By: #### L 500.2500, L501.0900 #### [facility] [address] [place], [address] Protein (U) [Mass/Vol] 59.2 mg/dL High 0.0-12.0 [facility] Comment on above: Performed By: #### L 500.2500, L501.0900 #### [facility] [address] [place], [address] UR CREAT 92.50 mg/dL Normal 39-259 [facility] Comment on above: Performed By: #### L 500.2500, L501.0900 #### [facility] [address] [place], [address] Protein/Creatinine (U) [Mass ratio]Ordered By: Michelle Mcfarlane on 10-27-2024 Urine Protein/Creatinine Ratio 640 mg/g CRE High 0-200 [facility] Random urine creatinine baljeet urement (mass/volume)Ordered By: Michelle Mcfarlane on 10-27-2024 Creatinine Unsp time (U) [Mass/Vol] 92.50 mg/dL 39-259 [facility] Serum creatinine measurement (mass/volume)Ordered By: Michelle Mcfarlane on 10-27-2024 Creatinine [Mass/Vol] 1.89 mg/dL High 0.70-1.20 [facility] Serum glucose measurement (m ass/volume)Ordered By: Michelle Mcfarlane on 10-27-2024 Glucose [Mass/Vol] 162 mg/dL High 70-99 [facility] Serum or plasma anion gap de termination (moles/volume)Ordered By: Michelle Mcfarlane on 10-27-2024 Anion gap [Moles/Vol] 12 mmol/L 5-15 [facility] Serum or plasma calcium baljeet urement (mass/volume)Ordered By: Michelle Mcfarlane on 10-27-2024 Calcium [Mass/Vol] 8.5 mg/dL 7.6-11.0 [facility] Serum or plasma potassium me asurementOrdered By: Michelle Mcfarlane on 10-27-2024 Potassium [Moles/Vol] 3.6 mmol/L 3.3-5.1 [facility] Comment on above: Hemolysis present, R esults could be affected. Serum or plasma sodium measu rement (moles/volume)Ordered By: Michelle Mcfarlane on 10-27-2024 Sodium [Moles/Vol] 146 mmol/L High 133-145 [facility] Serum or plasma urea nitroge n measurement (mass/volume)Ordered By: Michelle Mcfarlane on 10-27-2024 Urea nitrogen [Mass/Vol] 33 mg/dL High 4-19 [facility] Urine protein measurement (m ass/volume)Ordered By: Michelle Mcfarlane on 10-27-2024 Protein (U) [Mass/Vol] 59.2 mg/dL High 0.0-12.0 [facility] Urine protein/creatinine mas s ratioOrdered By: Michelle Mcfarlane on 10-27-2024 Protein/Creatinine (U) [Mass ratio] 640 mg/g CRE High 0-200 [facility] Cardiology Visit Reporton Cardiology Visit Report [facility] [address] [place] [address] OFFICE VISIT Date of Service: 09/17/24 MR#: [id number] Acct: [id number] Name: RACHNA RECINOS Rep #: [id number] : 1940 Provider: ASA Stout Age/Sex: 83/M Location: [facility] [place] Status: Signed HPI HPI History of Present [...] intravenous 12/24 (more content not included)... Normal [facility] Diagnostic total prostate sp ecific antigen (PSA) measurementOrdered By: Katherin Edge on 09-02-2024 Prostate Specific Antigen Total 1.74 ng/mL 0.0-4.0 [facility] Comment on above: This test was perfor med using the TPSA assay method for the[employer] chemistry system. Values obtained with differentassay methods cannot be used interchangably.When changing PSA assays in the course of monitoring apatient, additional sequential testing should be carriedout to confirm baseline values. PSA,Total- Diagnosticon PSA, DIAGNOSTIC 1.74 ng/mL Normal 0.0-4.0 [facility] Comment on above: Result Comment: This test was performed using the TPSA assay method for the [employer] chemistry system. Values obtained with different assay methods cannot be used interchangably. When changing PSA assays in the course of monitoring a patient, additional sequential testing should be carried out to confirm baseline values. Performed By: #### L 500.2500, L501.0900 #### [facility] [address] [place], [place], [id number] Neurology Visit Reporton Neurology Visit Report [facility] [address], [address] [place] [id number] OFFICE VISIT Date of Service: 07/01/24 MR#: [id number] Acct: [id number] Name: RACHNA RECINOS Rep #: [id number] : 1940 Provider: Dr. Douglas torres MD Age/Sex: 83/M Location: [facility] [place]. Status: Signed with Addenda ADDENDUM by CORINNE Loyola on 07/03/24 at 1151 HPI Details: RACHAN RECINOS, is a 83 M who presents [...] 3 seconds" 07/03/24 1151 Date Sandy Loyola cc: * Signed HPI HPI Chief Complaint: Est Care Details: The patient is a 83-year-old right handed male who presents to [facility]. He was referred 06/25/2024 by [facility] (Sruthi Munguia CNP) for mild cognitive [...] a press while he was working at [employer]. He has a thumb or finger digit [...] he i (more content not included)... Normal [facility] Comprehensive Metabolic Prof ben 06-17-2024 Albumin [Mass/Vol] 3.4 g/dL Normal 3.2-5.0 [facility] Comment on above: Performed By: #### L 500.2500, L501.0900 #### [facility] [address] [place], [address] Albumin/Globulin [Mass ratio] 1.0 {ratio} Normal 0.9-2.4 [facility] Comment on above: Performed By: #### L 500.2500, L501.0900 #### [facility] [address] [place], [address] ALK P 89 U/L Normal 45-117 [facility] Comment on above: Performed By: #### L 500.2500, L501.0900 #### [facility] [address] [place], [address] ALT [Catalytic activity/Vol] 39 U/L Normal 16-61 [facility] Comment on above: Performed By: #### L 500.2500, L501.0900 #### [facility] [address] [place], [address] AST [Catalytic activity/Vol] 17 U/L Normal 15-37 [facility] Comment on above: Performed By: #### L 500.2500, L501.0900 #### [facility] [address] [place], [address] Bilirubin [Mass/Vol] 0.40 mg/dL Normal 0.20-1.00 [facility] Comment on above: Result Comment: For patients on eltrombopag therapy, use of Dimension [employer] TBIL is not recommended. Performed By: #### L 500.2500, L501.0900 #### [facility] [address] [place], [address] BUN/CRE 17.4 RATIO Normal 10-20 [facility] Comment on above: Performed By: #### L 500.2500, L501.0900 #### [facility] [address] [place], [address] CA,Total 8.6 mg/dL Normal 8.5-10.1 [facility] Comment on above: Performed By: #### L 500.2500, L501.0900 #### [facility] [address] [place], [address] Chloride [Moles/Vol] 112 mmol/L High 98-107 [facility] Comment on above: Performed By: #### L 500.2500, L501.0900 #### [facility] [address] [place], [address] CO2 [Moles/Vol] 23.0 mmol/L Normal 21.0-32.0 [facility] Comment on above: Performed By: #### L 500.2500, L501.0900 #### [facility] [address] [place], [address] Creatinine [Mass/Vol] 1.78 mg/dL High 0.70-1.30 [facility] Comment on above: Result Comment: The validity of the calculated GFR GFRAA in patients over 70 years has not been determined. Clinical correlation is essential. Performed By: #### L 500.2500, L501.0900 #### [facility] [address] [place], [address] EST GFR - AA 47 mL/min Low >60 [facility] Comment on above: Result Comment: Afri can Mongolian GFR Calc Performed By: #### L 500.2500, L501.0900 #### [facility] [address] [place], [address] GAP 7 Normal 5-15 [facility] Comment on above: Performed By: #### L 500.2500, L501.0900 #### [facility] [address] [place], [address] GFR/1.73 sq M.predicted among non-blacks MDRD (S/P/Bld) [Vol rate/Area] 39 mL/min/{1.73_m2} Low >60 [facility] Comment on above: Result Comment: Non- GFR Calc Performed By: #### L 500.2500, L501.0900 #### [facility] [address] [place], [address] Globulin (S) [Mass/Vol] 3.3 g/dL Normal 2.2-4.2 [facility] Comment on above: Performed By: #### L 500.2500, L501.0900 #### [facility] [address] [place], [address] Glucose [Mass/Vol] 141 mg/dL High 74-106 [facility] Comment on above: Result Comment: Fast ing Glucose result greater than or equal to 126 mg/dL suggests DIABETES MELLITUS per A.D.A. criteria. Performed By: #### L 500.2500, L501.0900 #### [facility] [address] [place], [address] Potassium [Moles/Vol] 3.6 mmol/L Normal 3.5-5.1 [facility] Comment on above: Performed By: #### L 500.2500, L501.0900 #### [facility] [address] [place], [address] Sodium [Moles/Vol] 142 mmol/L Normal 136-145 [facility] Comment on above: Performed By: #### L 500.2500, L501.0900 #### [facility] [address] [place], [address] T PROT 6.7 g/dL Normal 6.4-8.2 [facility] Comment on above: Performed By: #### L 500.2500, L501.0900 #### [facility] [address] [place], [address] Urea nitrogen [Mass/Vol] 31 mg/dL High 7-18 [facility] Comment on above: Performed By: #### L 500.2500, L501.0900 #### [facility] [address] [place], [address] Free T3on 06-17-2024 Free T3 [Mass/Vol] 1.8 pg/mL Low 2.18-3.98 [facility] Comment on above: Performed By: #### L 501.9520, L506.0400, L500.4100, L501.9985, L500.4050, L501.36841, L509.1000, L506.1001 #### [facility] [address] [place], [address] Hemoglobin A1con 06-17-2024 HbA1c (Bld) [Mass fraction] 6.8 % High 3.8-5.6 [facility] Comment on above: Result Comment: Norm al < 5.7 % Prediabetic 5.7 - 6.4 % Diabetic >or= 6.5 % Please note range changes. Performed By: #### L 501.9520, L506.0400, L500.4100, L501.9985, L500.4050, L501.04746, L509.1000, L506.1001 #### [facility] [address] [place], [address] Lipid Profileon 06-17-2024 Cholesterol [Mass/Vol] 152 mg/dL Normal 200 [facility] Comment on above: Result Comment: <200 mg/dL Desirable 200-240 mg/dL Borderline >240 mg/dL High Risk Performed By: #### L 500.2500, L501.0900 #### [facility] [address] [place], [address] Cholesterol in HDL [Mass/Vol] 48 mg/dL Normal [facility] Comment on above: Result Comment: The drugs N-Acetylcysteine and Metamizole may falsely depress this assay. Reference Range HDL <40 mg/dL Low HDL Cholesterol HDL >or= 60 mg/dL High HDL Cholesterol Performed By: #### L 500.2500, L501.0900 #### [facility] [address] [place], [address] Cholesterol in LDL [Mass/Vol] 64 mg/dL Normal 0-130 [facility] Comment on above: Performed By: #### L 500.2500, L501.0900 #### [facility] [address] [place], [address] Cholesterol in VLDL [Mass/Vol] 40 mg/dL Normal 5-40 [facility] Comment on above: Performed By: #### L 500.2500, L501.0900 #### [facility] [address] [place], [address] Triglyceride [Mass/Vol] 198 mg/dL Normal [facility] Comment on above: Result Comment: The drugs N-Acetylcysteine and Metamizole may falsely depress this assay. Serum Triglycerides Reference Interval Normal <150 mg/dL Borderline high 150 - 199 mg/dL High 200 - 499 mg/dL Very High > or = 500 mg/dL Performed By: #### L 500.2500, L501.0900 #### [facility] [address] [place], [address] Microalb:Creat Ratio,Random URon 06-17-2024 Creatinine [Mass/Vol] 61.40 mg/dL Normal NO RAN GE EST. [facility] Comment on above: Performed By: #### L 501.9520, L506.0400, L500.4100, L501.9985, L500.4050, L501.72294, L509.1000, L506.1001 #### [facility] [address] [place], [address] MALB:CRE 382.7 mg/g CRE High <30 mg/g CRE [facility] Comment on above: Performed By: #### L 501.9520, L506.0400, L500.4100, L501.9985, L500.4050, L501.05163, L509.1000, L506.1001 #### [facility] [address] [place], [address] MICROALBUMIN,UR 235.0 mg/L Normal NO RANGE EST. [facility] Comment on above: Performed By: #### L 501.9520, L506.0400, L500.4100, L501.9985, L500.4050, L501.69604, L509.1000, L506.1001 #### [facility] [address] [place], [address] T4 Free Directon 06-17-2024 T4 FREE DIRECT 0.91 ng/dL Normal 0.76-1.46 [facility] Comment on above: Performed By: #### L 501.9520, L506.0400, L500.4100, L501.9985, L500.4050, L501.79334, L509.1000, L506.1001 #### [facility] [address] [place], [address] Thyroid Stim Hormone (TSH)on 06-17-2024 TSH 2.810 uIU/mL Normal 0.358-3.74 0 [facility] Comment on above: Performed By: #### L 501.9520, L506.0400, L500.4100, L501.9985, L500.4050, L501.66677, L509.1000, L506.1001 #### [facility] [address] [place], [address] Vitamin D,25 Hydroxyon 06-17 Vitamin D 25-OH 36.2 ng/mL Normal [facility] Comment on above: Result Comment: Latanya min D 25(OH) Status Range Deficiency <20 ng/mL (50nmol/L) Insufficiency 20 - 30 ng/mL (50 - 75 nmol/L) Sufficiency 30 - 100 ng/mL (75 - 250 nmol/L) Toxicity >100 ng/mL (>250 nmol/L) Performed By: #### L 500.2500, L501.0900 #### [facility] [address] [place], [address] Serum Creatinine AND GFRon 1 Creatinine [Mass/Vol] 1.93 mg/dL High 0.70-1.30 [facility] Comment on above: Result Comment: The validity of the calculated GFR GFRAA in patients over 70 years has not been determined. Clinical correlation is essential. Performed By: #### L 501.9520, L506.0400, L500.4100, L501.9985, L500.4050, L501.18155, L509.1000, L506.1001 #### [facility] [address] [place], [address] EST GFR - AA 43 mL/min Low >60 [facility] Comment on above: Result Comment: Afri can Mongolian GFR Calc Performed By: #### L 501.9520, L506.0400, L500.4100, L501.9985, L500.4050, L501.72632, L509.1000, L506.1001 #### [facility] [address] [place], [place], [id number] (178) GFR/1.73 sq M.predicted among non-blacks MDRD (S/P/Bld) [Vol rate/Area] 35 mL/min/{1.73_m2} Low >60 [facility] Comment on above: Result Comment: Non- GFR Calc Performed By: #### L 501.9520, L506.0400, L500.4100, L501.9985, L500.4050, L501.31369, L509.1000, L506.1001 #### [facility] [address] [place], [place], [id number] (834) ECG B/O W INTERP (MED OFFICE )on 03-27-2024 Interpretation and review of laboratory results Abnormal [facility] Sinus rhythm 81 bpm; first-degree AV block (AK 252 ms); PACs; nonspecific IVCD (QRS 150 ms); possible lateral infarct pattern; QTc 506 ms [facility] Thin prep Papanicolaou smear with manual screeningOrdered By: Vineet Wright on 12-25-2023 Thin prep Papanicolaou smear with manual screening 83 mg/dL 74-106 [facility] Comment on above: MANAGEMENT OF PATIEN T CARE PER NURSING PROTOCOL Basophil percentageOrdered B y: Shu Gotti on 12-18-2023 Bilirubin [Mass/Vol] 0.40 mg/dL 0.20-1.00 [facility] Comment on above: For patients on eltr ombopag therapy, use of Dimension [employer] TBIL is not recommended. Chloride [Moles/Vol] 112 mmol/L 98-107 [facility] Glucose [Mass/Vol] 190 mg/dL 74-106 [facility] Comment on above: Fasting Glucose resu lt greater than or equal to 126 mg/dL suggests DIABETES MELLITUS per A.D.A. criteria. Hemoglobin (Bld) [Mass/Vol] 12.9 g/dL 13.0-16.5 [facility] Potassium [Moles/Vol] 4.6 mmol/L 3.5-5.1 [facility] Protein [Mass/Vol] 7.1 g/dL 6.4-8.2 [facility] Sodium [Moles/Vol] 142 mmol/L 136-145 [facility] WBC (Bld) [#/Vol] 10.4 10*3/uL 4.4-11.0 [facility] Determination of erythrocyte mean corpuscular volume (MCV)Ordered By: Shumireya Gotti on 12-18-2023 MCV (RBC) [Entitic vol] 96.2 fL 80-94 [facility] Erythrocyte distribution wid th ratioOrdered By: [facility] on 12-18-2023 Erythrocyte distribution width (RBC) [Ratio] 14.3 % 11.6-14.6 [facility] Erythrocyte distribution wid th standard deviationOrdered By: [facility] on 12-18-2023 Erythrocyte distribution width (RBC) [Entitic vol] 49.7 fL 35.1-43.9 [facility] Hematocrit Auto (Bld) [Volum e fraction]Ordered By: [facility] on 12-18-2023 Hematocrit (Bld) [Volume fraction] 40.3 % 40-54 [facility] - Chemistry and C hemistry - challengeOrdered By: [facility] on 12-18-2023 Albumin/Globulin [Mass ratio] 0.9 {ratio} 0.9-2.4 [facility] ALP [Catalytic activity/Vol] 108 U/L 45-117 [facility] ALT [Catalytic activity/Vol] 35 U/L 16-61 [facility] CO2 [Moles/Vol] 23.0 mmol/L 21.0-32.0 [facility] Globulin (S) [Mass/Vol] 3.7 g/dL 2.2-4.2 [facility] Urea nitrogen/Creatinine [Mass ratio] 15.9 mg/mg 10-20 [facility] - Hematology and Cell countsOrdered By: Shu Gotti on 12-18-2023 MCH (RBC) [Entitic mass] 30.8 pg 27.0-32.0 [facility] MCHC (RBC) [Mass/Vol] 32.0 g/dL 32-36 [facility] Platelet mean volume (Bld) [Entitic vol] 10.3 fL 6.2-12.0 [facility] Platelets (Bld) [#/Vol] 211 10*3/uL 150-450 [facility] No Panel InformationOrdered By: Shu Gotti on 12-18-2023 Estimated GFR (MDRD) Amer 41 mL/min >60 [facility] Comment on above: GFR Calc Estimated GFR (MDRD) Non-Af Amer 34 mL/min >60 [facility] Comment on above: Non- GFR Calc Free Triiodothyronine (T3) pg/dL 0.9 pg/mL 2.18-3.98 [facility] Urine Microalbumin/Creatini ne Ratio 285.9 mg/g CRE <30 [facility] Vitamin D 25-Hydroxy 55.1 ng/mL [facility] Comment on above: Vitamin D 25(OH) Sta tus Range Deficiency <20 ng/mL (50nmol/L) Insufficiency 20 - 30 ng/mL (50 - 75 nmol/L) Sufficiency 30 - 100 ng/mL (75 - 250 nmol/L) Toxicity >100 ng/mL (>250 nmol/L) RBC Auto (Bld) [#/Vol]Ordere d By: Shu Gotti on 12-18-2023 RBC (Bld) [#/Vol] 4.19 10*6/uL 4.6-6.2 [facility] Serum or plasma calcium baljeet urement (mass/volume)Ordered By: Shu Gotti on 12-18-2023 Calcium [Mass/Vol] 9.1 mg/dL 8.5-10.1 [facility] Serum or plasma creatinine m easurement (mass/volume)Ordered By: Shumireya Gotti on 12-18-2023 Creatinine [Mass/Vol] 2.01 mg/dL 0.70-1.30 [facility] Comment on above: The validity of the calculated GFR & GFRAA in patients over 70 years has not been determined. Clinical correlation is essential. Serum or plasma thyroid stim ulating hormone (TSH) measurement (units/volume)Ordered By: [facility] on 12-18-2023 TSH Qn 0.98 uIU/mL 0.358-3.74 [facility] Serum or plasma urea nitroge n measurement (mass/volume)Ordered By: Shumireya Gotti on 12-18-2023 Urea nitrogen [Mass/Vol] 32 mg/dL 7-18 [facility] Thin prep Papanicolaou smear with manual screeningOrdered By: [facility] Raquelyobany on 12-18-2023 Thin prep Papanicolaou smear with manual screening 3.4 g/dL 3.2-5.0 [facility] Thin prep Papanicolaou smear with manual screening 19 U/L 15-37 [facility] Thin prep Papanicolaou smear with manual screening 7 5-15 [facility] Thin prep Papanicolaou smear with manual screening 249.0 mg/L NO RANGE EST. [facility] Urine creatinine measurement (mass/volume)Ordered By: Shumireya Gotti on 12-18-2023 Creatinine (U) [Mass/Vol] 87.10 mg/dL NO RANGE EST. [facility] Whole blood hemoglobin A1c/t otal hemoglobin ratio (mass fraction)Ordered By: Shumireya Gotti on 12-18-2023 HbA1c (Bld) [Mass fraction] 6.8 % 3.8-5.6 [facility] Comment on above: Normal < 5.7 % Predi abetic 5.7 - 6.4 % Diabetic >or= 6.5 % Please note range changes. Basophil percentageOrdered B y: Katherin Edge on 12-13-2023 Bilirubin [Mass/Vol] 0.40 mg/dL 0.20-1.00 [facility] Comment on above: For patients on eltr ombopag therapy, use of Dimension [employer] TBIL is not recommended. Chloride [Moles/Vol] 113 mmol/L 98-107 [facility] Glucose [Mass/Vol] 182 mg/dL 74-106 [facility] Comment on above: Fasting Glucose resu lt greater than or equal to 126 mg/dL suggests DIABETES MELLITUS per A.D.A. criteria. Potassium [Moles/Vol] 3.9 mmol/L 3.5-5.1 [facility] Protein [Mass/Vol] 6.5 g/dL 6.4-8.2 [facility] Sodium [Moles/Vol] 140 mmol/L 136-145 [facility] - Chemistry and C hemistry - challengeOrdered By: Katherin Edge on 12-13-2023 Natriuretic peptide B (Bld) [Mass/Vol] 80.3 pg/mL 0-100 [facility] Albumin/Globulin [Mass ratio] 0.9 {ratio} 0.9-2.4 [facility] ALP [Catalytic activity/Vol] 101 U/L 45-117 [facility] ALT [Catalytic activity/Vol] 38 U/L 16-61 [facility] CO2 [Moles/Vol] 21.0 mmol/L 21.0-32.0 [facility] Globulin (S) [Mass/Vol] 3.4 g/dL 2.2-4.2 [facility] Urea nitrogen/Creatinine [Mass ratio] 16.3 mg/mg 10-20 [facility] No Panel InformationOrdered By: Katherin Edge on 12-13-2023 Estimated GFR (MDRD) Amer 40 mL/min >60 [facility] Comment on above: GFR Calc Estimated GFR (MDRD) Non-Af Amer 33 mL/min >60 [facility] Comment on above: Non- GFR Calc Serum or plasma calcium baljeet urement (mass/volume)Ordered By: Katherin Edge on 12-13-2023 Calcium [Mass/Vol] 8.3 mg/dL 8.5-10.1 [facility] Serum or plasma creatinine m easurement (mass/volume)Ordered By: Katheirn Edge on 12-13-2023 Creatinine [Mass/Vol] 2.03 mg/dL 0.70-1.30 [facility] Comment on above: The validity of the calculated GFR & GFRAA in patients over 70 years has not been determined. Clinical correlation is essential. Serum or plasma urea nitroge n measurement (mass/volume)Ordered By: Katherin Edge on 12-13-2023 Urea nitrogen [Mass/Vol] 33 mg/dL 7-18 [facility] Thin prep Papanicolaou smear with manual screeningOrdered By: [facility] Healthcarealanna Christie on 12-13-2023 Thin prep Papanicolaou smear with manual screening 3.1 g/dL 3.2-5.0 [facility] Thin prep Papanicolaou smear with manual screening 24 U/L 15-37 [facility] Thin prep Papanicolaou smear with manual screening 6 5-15 [facility] Whole blood hemoglobin A1c/t otal hemoglobin ratio (mass fraction)Ordered By: Katherin Edge on 12-13-2023 HbA1c (Bld) [Mass fraction] 7.1 % 3.8-5.6 [facility] Comment on above: Normal < 5.7 % Predi abetic 5.7 - 6.4 % Diabetic >or= 6.5 % Please note range changes. Basophil percentageOrdered B y: Michelle Mcfarlane on 10-27-2023 Chloride [Moles/Vol] 113 mmol/L 98-107 [facility] Glucose [Mass/Vol] 81 mg/dL 74-106 [facility] Potassium [Moles/Vol] 3.6 mmol/L 3.5-5.1 [facility] Comment on above: Slight Hemolysis, Re sult may be falsely increased. Sodium [Moles/Vol] 143 mmol/L 136-145 [facility] Laboratory - Chemistry and C hemistry - challengeOrdered By: Michelle Mcfarlane on 10-27-2023 CO2 [Moles/Vol] 25.0 mmol/L 21.0-32.0 [facility] Urea nitrogen/Creatinine [Mass ratio] 20.4 mg/mg 10-20 [facility] No Panel InformationOrdered By: Michelle Mcfarlane on 10-27-2023 Estimated GFR (MDRD) Amer 45 mL/min >60 [facility] Comment on above: GFR Calc Estimated GFR (MDRD) Non-Af Amer 37 mL/min >60 [facility] Comment on above: Non- GFR Calc Serum or plasma calcium baljeet urement (mass/volume)Ordered By: Michelle Mcfarlane on 10-27-2023 Calcium [Mass/Vol] 9.1 mg/dL 8.5-10.1 [facility] Serum or plasma creatinine m easurement (mass/volume)Ordered By: Michelle Mcfarlane on 10-27-2023 Creatinine [Mass/Vol] 1.86 mg/dL 0.70-1.30 [facility] Comment on above: The validity of the calculated GFR & GFRAA in patients over 70 years has not been determined. Clinical correlation is essential. Serum or plasma urea nitroge n measurement (mass/volume)Ordered By: Michelle Mcfarlane on 10-27-2023 Urea nitrogen [Mass/Vol] 38 mg/dL 7-18 [facility] Thin prep Papanicolaou smear with manual screeningOrdered By: Michelle Mcfarlane on 10-27-2023 Thin prep Papanicolaou smear with manual screening 5 5-15 [facility] Basophil percentageOrdered B y: Shu Albererineduarda on 08-29-2023 Bilirubin [Mass/Vol] 0.30 mg/dL 0.20-1.00 [facility] Comment on above: For patients on eltr ombopag therapy, use of Dimension [employer] TBIL is not recommended. Chloride [Moles/Vol] 114 mmol/L 98-107 [facility] Cholesterol [Mass/Vol] 113 mg/dL <200 [facility] Comment on above: <200 mg/dL Desirable 200-240 mg/dL Borderline >240 mg/dL High Risk Glucose [Mass/Vol] 103 mg/dL 74-106 [facility] Comment on above: Fasting Glucose resu lt from 100 to 125 mg/dL suggests IMPAIRED HOMEOSTASIS per A.D.A. criteria. Potassium [Moles/Vol] 3.4 mmol/L 3.5-5.1 [facility] Protein [Mass/Vol] 7.1 g/dL 6.4-8.2 [facility] Sodium [Moles/Vol] 142 mmol/L 136-145 [facility] Triglyceride [Mass/Vol] 102 mg/dL <199 [facility] Comment on above: The drugs N-Acetylcy steine and Metamizole may falsely depress this assay.Serum Triglycerides Reference Interval Normal <150 mg/dL Borderline high 150 - 199 mg/dL High 200 - 499 mg/dL Very High > or = 500 mg/dL Laboratory - Chemistry and C hemistry - challengeOrdered By: Shu Gotti on 08-29-2023 ALP [Catalytic activity/Vol] 101 U/L 45-117 [facility] ALT [Catalytic activity/Vol] 22 U/L 16-61 [facility] CO2 [Moles/Vol] 23.0 mmol/L 21.0-32.0 [facility] Free T4 [Mass/Vol] 1.17 ng/dL 0.76-1.46 [facility] Globulin (S) [Mass/Vol] 4.0 g/dL 2.2-4.2 [facility] Urea nitrogen/Creatinine [Mass ratio] 14.3 mg/mg 10-20 [facility] No Panel InformationOrdered By: Shu Gotti on 08-29-2023 Estimated GFR (MDRD) Amer 40 mL/min >60 [facility] Comment on above: GFR Calc Estimated GFR (MDRD) Non-Af Amer 33 mL/min >60 [facility] Comment on above: Non- GFR Calc Free Triiodothyronine (T3) pg/dL 1.6 pg/mL 2.18-3.98 [facility] Thyroid Stimulating Hormone (TSH) 2.53 uIU/mL 0.358-3.74 [facility] Serum or plasma albumin baljeet urement (mass/volume)Ordered By: Shu Gotti on 08-29-2023 Albumin [Mass/Vol] 3.1 g/dL 3.2-5.0 [facility] Serum or plasma albumin/glob ulin mass ratioOrdered By: Shu Gotti on 08-29-2023 Albumin/Globulin [Mass ratio] 0.8 {ratio} 0.9-2.4 [facility] Serum or plasma calcium baljeet urement (mass/volume)Ordered By: Shu oGtti on 08-29-2023 Calcium [Mass/Vol] 8.9 mg/dL 8.5-10.1 [facility] Serum or plasma cholesterol in HDL measurement (mass/volume)Ordered By: Shu Gotti on 08-29-2023 Cholesterol in HDL [Mass/Vol] 53 mg/dL >40 [facility] Comment on above: The drugs N-Acetylcy steine and Metamizole may falsely depress this assay. Reference Range HDL <40 mg/dL Low HDL Cholesterol HDL >or= 60 mg/dL High HDL Cholesterol Serum or plasma cholesterol in VLDL measurement (mass/volume)Ordered By: Shu Gotti on 08-29-2023 Cholesterol in VLDL [Mass/Vol] 20 mg/dL 5-40 [facility] Serum or plasma creatinine m easurement (mass/volume)Ordered By: Shu Gotti on 08-29-2023 Creatinine [Mass/Vol] 2.03 mg/dL 0.70-1.30 [facility] Comment on above: The validity of the calculated GFR & GFRAA in patients over 70 years has not been determined. Clinical correlation is essential. Serum or plasma low density lipoprotein (LDL) cholesterol measurement (mass/volume)Ordered By: Shu Gotti on 08-29-2023 Cholesterol in LDL [Mass/Vol] 40 mg/dL 0-130 [facility] Serum or plasma urea nitroge n measurement (mass/volume)Ordered By: Shu Gotti on 08-29-2023 Urea nitrogen [Mass/Vol] 29 mg/dL 7-18 [facility] Thin prep Papanicolaou smear with manual screeningOrdered By: Shu Gotti on 08-29-2023 Thin prep Papanicolaou smear with manual screening 15 U/L 15-37 [facility] Thin prep Papanicolaou smear with manual screening 5 5-15 [facility] Whole blood hemoglobin A1c/t otal hemoglobin ratio (mass fraction)Ordered By: Shu Gotti on 08-29-2023 HbA1c (Bld) [Mass fraction] 6.9 % 3.8-5.6 [facility] Comment on above: Normal < 5.7 % Predi abetic 5.7 - 6.4 % Diabetic >or= 6.5 % Please note range changes. Basophil percentageOrdered B y: Edward Rosado on 05-20-2023 Basophil percentage 0-5 SEEN /hpf 0-5 [facility] Bilirubin Test strip Ql (U)O rdered By: Edward Rosado on 05-20-2023 Bilirubin Ql (U) Negative Negative [facility] Culture, urineOrdered By: Francisca Rosado on 05-20-2023 Bacteria identified Cx Nom (U) Mixed Gram Pos & Gram Neg Org [facility] Bacteria identified Cx Nom (U) Mixed Gram Pos & Gram Neg Org [facility] Ketones Test strip Ql (U)Ord ered By: Edward Rosado on 05-20-2023 Ketones Ql (U) Negative Negative [facility] Laboratory - Chemistry and C hemistry - challengeon 05-20-2023 Glucose Ql (U) 100 g/dL [facility] pH (U) 6.0 [pH] [facility] Specific gravity (U) [Rel density] 1.015 [facility] Laboratory - Specimen inform ationon 05-20-2023 Clarity (U) Clear [facility] Color (U) Yellow [facility] Mucus LM Ql (Urine sed)Order ed By: Edward Rosado on 05-20-2023 Mucus Ql (Urine sed) 0 SEEN /hpf [facility] Nitrite Test strip Ql (U)Ord ered By: Edward Rosado on 05-20-2023 Nitrite Ql (U) Negative Negative [facility] Protein Test strip Ql (U)Ord ered By: Edward Rosado on 05-20-2023 Protein Ql (U) 30 mg/dl Negative [facility] Squamous epithelial cells de tection in urine sediment by light microscopyOrdered By: Edward Rosado on 05-20-2023 Epithelial cells.squamous LM Ql (Urine sed) 0-5 SEEN /hpf 0-5 [facility] Urine blood detectionOrdered By: Edward Rosado on 05-20-2023 RBC Ql (U) Negative Negative [facility] RBC Ql (U) 0 SEEN /hpf 0-5 [facility] Urine clarityOrdered By: Angus Rosado on 05-20-2023 Clarity (U) Clear Clear [facility] Urine color determinationOrd ered By: Edward Rosado on 05-20-2023 Color (U) Yellow Yellow [facility] Urine glucose detectionOrder ed By: Edward Rosado on 05-20-2023 Glucose Ql (U) 1000 mg/dl Normal [facility] Urine leukocyte esterase det ection by dipstickOrdered By: Edward Rosado on 05-20-2023 Leukocyte esterase Test strip Ql (U) Negative Negative [facility] Urine pHOrdered By: Edward arroyo on 05-20-2023 pH (U) 6.0 [pH] 5.0 - 8.0 [facility] Urine sediment bacteria coun t by microscopy (number/high power field)Ordered By: Edward Rosado on 05-20-2023 Bacteria LM.HPF (Urine sed) [#/Area] 0 /[HPF] None Seen [facility] Urine specific gravity measu rementOrdered By: Edward Rosado on 05-20-2023 Specific gravity (U) [Rel density] 1.015 1.002-1.03 0 [facility] Urobilinogen Auto test strip Ql (U)Ordered By: Edward Rosado on 05-20-2023 Urobilinogen Ql (U) Normal mg/dl Normal [facility] Basophil percentageOrdered B y: Shu Gotti on 05-15-2023 Bilirubin [Mass/Vol] 0.30 mg/dL 0.20-1.00 [facility] Comment on above: For patients on eltr ombopag therapy, use of Dimension [employer] TBIL is not recommended. Chloride [Moles/Vol] 113 mmol/L 98-107 [facility] Cholesterol [Mass/Vol] 128 mg/dL <200 [facility] Comment on above: <200 mg/dL Desirable 200-240 mg/dL Borderline >240 mg/dL High Risk Glucose [Mass/Vol] 202 mg/dL 74-106 [facility] Comment on above: Glucose result great er than or equal to 200 mg/dLsuggests DIABETES MELLITUS per A.D.A. criteria. Potassium [Moles/Vol] 4.2 mmol/L 3.5-5.1 [facility] Protein [Mass/Vol] 7.0 g/dL 6.4-8.2 [facility] Sodium [Moles/Vol] 142 mmol/L 136-145 [facility] Triglyceride [Mass/Vol] 122 mg/dL <199 [facility] Comment on above: The drugs N-Acetylcy steine and Metamizole may falsely depress this assay.Serum Triglycerides Reference Interval Normal <150 mg/dL Borderline high 150 - 199 mg/dL High 200 - 499 mg/dL Very High > or = 500 mg/dL Laboratory - Chemistry and C hemistry - challengeOrdered By: Shu Gotti on 05-15-2023 ALP [Catalytic activity/Vol] 99 U/L 45-117 [facility] ALT [Catalytic activity/Vol] 22 U/L 16-61 [facility] CO2 [Moles/Vol] 23.0 mmol/L 21.0-32.0 [facility] Free T4 [Mass/Vol] 1.02 ng/dL 0.76-1.46 [facility] Globulin (S) [Mass/Vol] 3.5 g/dL 2.2-4.2 [facility] Urea nitrogen/Creatinine [Mass ratio] 16.7 mg/mg 10-20 [facility] No Panel InformationOrdered By: Shu Gotti on 05-15-2023 Estimated GFR (MDRD) Amer 37 mL/min >60 [facility] Comment on above: GFR Calc Estimated GFR (MDRD) Non-Af Amer 30 mL/min >60 [facility] Comment on above: Non- GFR Calc Free Triiodothyronine (T3) pg/dL 1.9 pg/mL 2.18-3.98 [facility] Thyroid Stimulating Hormone (TSH) 4.40 uIU/mL 0.358-3.74 [facility] Vitamin D 25-Hydroxy 50.8 ng/mL [facility] Comment on above: Vitamin D 25(OH) Sta tus Range Deficiency <20 ng/mL (50nmol/L) Insufficiency 20 - 30 ng/mL (50 - 75 nmol/L) Sufficiency 30 - 100 ng/mL (75 - 250 nmol/L) Toxicity >100 ng/mL (>250 nmol/L) Serum or plasma albumin baljeet urement (mass/volume)Ordered By: Shu Gotti on 05-15-2023 Albumin [Mass/Vol] 3.5 g/dL 3.2-5.0 [facility] Serum or plasma albumin/glob ulin mass ratioOrdered By: Shu Gotti on 05-15-2023 Albumin/Globulin [Mass ratio] 1.0 {ratio} 0.9-2.4 [facility] Serum or plasma calcium baljeet urement (mass/volume)Ordered By: Shu Gotti on 05-15-2023 Calcium [Mass/Vol] 8.6 mg/dL 8.5-10.1 [facility] Serum or plasma cholesterol in HDL measurement (mass/volume)Ordered By: Shumireya Gotti on 05-15-2023 Cholesterol in HDL [Mass/Vol] 54 mg/dL >40 [facility] Comment on above: The drugs N-Acetylcy steine and Metamizole may falsely depress this assay. Reference Range HDL <40 mg/dL Low HDL Cholesterol HDL >or= 60 mg/dL High HDL Cholesterol Serum or plasma cholesterol in VLDL measurement (mass/volume)Ordered By: Shu Gotti on 05-15-2023 Cholesterol in VLDL [Mass/Vol] 24 mg/dL 5-40 [facility] Serum or plasma creatinine m easurement (mass/volume)Ordered By: Shu Gotti on 05-15-2023 Creatinine [Mass/Vol] 2.21 mg/dL 0.70-1.30 [facility] Comment on above: The validity of the calculated GFR & GFRAA in patients over 70 years has not been determined. Clinical correlation is essential. Serum or plasma low density lipoprotein (LDL) cholesterol measurement (mass/volume)Ordered By: Shu Gotti on 05-15-2023 Cholesterol in LDL [Mass/Vol] 50 mg/dL 0-130 [facility] Serum or plasma urea nitroge n measurement (mass/volume)Ordered By: Shu Gotti on 05-15-2023 Urea nitrogen [Mass/Vol] 37 mg/dL 7-18 [facility] Thin prep Papanicolaou smear with manual screeningOrdered By: Shu Gotti 05-15-2023 Thin prep Papanicolaou smear with manual screening 14 U/L 15-37 [facility] Thin prep Papanicolaou smear with manual screening 6 5-15 [facility] Whole blood hemoglobin A1c/t otal hemoglobin ratio (mass fraction)Ordered By: Shu Gotti on 05-15-2023 HbA1c (Bld) [Mass fraction] 7.1 % 3.8-5.6 [facility] Comment on above: Normal < 5.7 % Predi abetic 5.7 - 6.4 % Diabetic >or= 6.5 % Please note range changes. Basophil percentageOrdered B y: Katherin Edge on 05-01-2023 Cholesterol [Mass/Vol] 94 mg/dL <200 [facility] Comment on above: <200 mg/dL Desirable 200-240 mg/dL Borderline >240 mg/dL High Risk Triglyceride [Mass/Vol] 104 mg/dL <199 [facility] Comment on above: The drugs N-Acetylcy steine and Metamizole may falsely depress this assay.Serum Triglycerides Reference Interval Normal <150 mg/dL Borderline high 150 - 199 mg/dL High 200 - 499 mg/dL Very High > or = 500 mg/dL No Panel InformationOrdered By: Katherin Edge on 05-01-2023 Prostate Specific Antigen Screen 1.01 ng/mL 0.00-4.00 [facility] Comment on above: This test was perfor med using the TPSA assay method for the[employer] chemistry system. Values obtained with differentassay methods cannot be used interchangably.When changing PSA assays in the course of monitoring apatient, additional sequential testing should be carriedout to confirm baseline values. Thyroid Stimulating Hormone (TSH) 4.61 uIU/mL 0.358-3.74 [facility] Serum or plasma cholesterol in HDL measurement (mass/volume)Ordered By: Katherin Edge on 05-01-2023 Cholesterol in HDL [Mass/Vol] 47 mg/dL >40 [facility] Comment on above: The drugs N-Acetylcy steine and Metamizole may falsely depress this assay. Reference Range HDL <40 mg/dL Low HDL Cholesterol HDL >or= 60 mg/dL High HDL Cholesterol Serum or plasma cholesterol in VLDL measurement (mass/volume)Ordered By: Katherin Edge on 05-01-2023 Cholesterol in VLDL [Mass/Vol] 21 mg/dL 5-40 [facility] Serum or plasma low density lipoprotein (LDL) cholesterol measurement (mass/volume)Ordered By: Katherin Edge on 05-01-2023 Cholesterol in LDL [Mass/Vol] 26 mg/dL 0-130 [facility] Whole blood hemoglobin A1c/t otal hemoglobin ratio (mass fraction)Ordered By: Katherin Edge on 05-01-2023 HbA1c (Bld) [Mass fraction] 6.9 % 3.8-5.6 [facility] Comment on above: Normal < 5.7 % Predi abetic 5.7 - 6.4 % Diabetic >or= 6.5 % Please note range changes. Absolute lymphocyte countOrd ered By: Corin Hernandez on 04-23-2023 Lymphocytes Auto (Unsp spec) [#/Vol] 0.60 10*3/uL 0.83-4.51 [facility] Basophil percentageOrdered B y: Corin Hernandez on 04-23-2023 Basophils/100 WBC (Bld) 0.2 % 0-1 [facility] Eosinophils/100 WBC (Bld) 1.3 % 0-5 [facility] Neutrophils (Bld) [#/Vol] 7.6 10*3/uL 2.0-7.7 [facility] Neutrophils/100 WBC (Bld) 84.6 % 47-70 [facility] WBC (Bld) [#/Vol] 9.0 10*3/uL 4.4-11.0 [facility] Blood erythrocytes count (nu mber/volume)Ordered By: Corin Hernandez on 04-23-2023 RBC (Bld) [#/Vol] 4.70 10*6/uL 4.6-6.2 [facility] Blood hemoglobin measurement (mass/volume)Ordered By: Corin Hernandez on 04-23-2023 Hemoglobin (Bld) [Mass/Vol] 14.3 g/dL 13.0-16.5 [facility] Blood lymphocytes/100 leukoc ytesOrdered By: Corin Hernandez on 04-23-2023 Lymphocytes/100 WBC (Bld) 6.7 % 19-41 [facility] Blood manual differential co mment interpretation (narrative result)Ordered By: Corin Hernandez on 04-23-2023 Manual differential comment Reese (Bld) [Interp] SCANNED [facility] Comment on above: LYMPHOPENIA NOTED Blood monocytes/100 leukocyt esOrdered By: Corin Hernandez on 04-23-2023 Monocytes/100 WBC (Bld) 6.9 % 0-10 [facility] Blood platelet mean volumeOr dered By: Corin Hernandez on 04-23-2023 Platelet mean volume (Bld) [Entitic vol] 10.6 fL 6.2-12.0 [facility] Determination of erythrocyte mean corpuscular volume (MCV)Ordered By: Corin Hernandez on 04-23-2023 MCV (RBC) [Entitic vol] 96.6 fL 80-94 [facility] Hematocrit Auto (Bld) [Volum e fraction]Ordered By: Corin Hernandez on 04-23-2023 Hematocrit (Bld) [Volume fraction] 45.4 % 40-54 [facility] Laboratory - Hematology and Cell countsOrdered By: Corin Hernandez on 04-23-2023 Erythrocyte distribution width (RBC) [Entitic vol] 49.9 fL 35.1-43.9 [facility] Erythrocyte distribution width (RBC) [Ratio] 14.1 % 11.6-14.6 [facility] Immature granulocytes/100 WBC (Bld) 0.300 % 0.0-0.9 [facility] Comment on above: IG% - Immature Granu locytes (promyelocytes, myelocytes and metamyelocytes) > 1% indicates that a LEFT SHIFT is Present. MCH (RBC) [Entitic mass] 30.4 pg 27.0-32.0 [facility] Nucleated RBC/100 WBC (Bld) [Ratio] 0 % 0-5 [facility] MCHC Auto (RBC) [Mass/Vol]Or dered By: Corin Hernandez on 04-23-2023 MCHC (RBC) [Mass/Vol] 31.5 g/dL 32-36 [facility] Platelets bldOrdered By: Corin Hernandez on 04-23-2023 Platelets (Bld) [#/Vol] 164 10*3/uL 150-450 [facility] Basophil percentageOrdered B y: Edward Rosado on 03-27-2023 Chloride [Moles/Vol] 112 mmol/L 98-107 [facility] Glucose [Mass/Vol] 163 mg/dL 74-106 [facility] Comment on above: Fasting Glucose resu lt greater than or equal to 126 mg/dL suggests DIABETES MELLITUS per A.D.A. criteria. Potassium [Moles/Vol] 3.8 mmol/L 3.5-5.1 [facility] Sodium [Moles/Vol] 142 mmol/L 136-145 [facility] Laboratory - Chemistry and C hemistry - challengeOrdered By: Edward Rosado on 03-27-2023 CO2 [Moles/Vol] 26.0 mmol/L 21.0-32.0 [facility] Urea nitrogen/Creatinine [Mass ratio] 15.2 mg/mg 10-20 [facility] No Panel InformationOrdered By: Edward Rosado on 03-27-2023 Estimated GFR (MDRD) Amer 42 mL/min >60 [facility] Comment on above: GFR Calc Estimated GFR (MDRD) Non-Af Amer 34 mL/min >60 [facility] Comment on above: Non- GFR Calc Serum or plasma calcium baljeet urement (mass/volume)Ordered By: Edward Rosado on 03-27-2023 Calcium [Mass/Vol] 8.6 mg/dL 8.5-10.1 [facility] Serum or plasma creatinine m easurement (mass/volume)Ordered By: Edward Rosado on 03-27-2023 Creatinine [Mass/Vol] 1.98 mg/dL 0.70-1.30 [facility] Comment on above: The validity of the calculated GFR & GFRAA in patients over 70 years has not been determined. Clinical correlation is essential. Serum or plasma urea nitroge n measurement (mass/volume)Ordered By: Edward Rosado on 03-27-2023 Urea nitrogen [Mass/Vol] 30 mg/dL 7-18 [facility] Thin prep Papanicolaou smear with manual screeningOrdered By: Edward Rosado on 03-27-2023 Thin prep Papanicolaou smear with manual screening 4 5-15 [facility] Urine creatinine measurement (mass/volume)Ordered By: Edward Rosado on 03-27-2023 Creatinine (U) [Mass/Vol] 55.10 mg/dL NO RANGE EST. [facility] Urine protein measurement (m ass/volume)Ordered By: Edward Rosado on 03-27-2023 Protein (U) [Mass/Vol] 57.3 mg/dL 0.0-11.8 [facility] Urine protein/creatinine mas s ratioOrdered By: Edward Rosado on 03-27-2023 Protein/Creatinine (U) [Mass ratio] 1040 mg/g CRE 0-200 [facility] Absolute lymphocyte countOrd ered By: Vineet Wright on 03-08-2023 Lymphocytes Auto (Unsp spec) [#/Vol] 1.23 10*3/uL 0.83-4.51 [facility] Basophil percentageOrdered B y: Vineet Wright on 03-08-2023 Basophils/100 WBC (Bld) 0.5 % 0-1 [facility] Chloride [Moles/Vol] 112 mmol/L 98-107 [facility] Eosinophils/100 WBC (Bld) 1.7 % 0-5 [facility] Glucose [Mass/Vol] 179 mg/dL 74-106 [facility] Comment on above: Fasting Glucose resu lt greater than or equal to 126 mg/dL suggests DIABETES MELLITUS per A.D.A. criteria. Neutrophils (Bld) [#/Vol] 6.2 10*3/uL 2.0-7.7 [facility] Neutrophils/100 WBC (Bld) 73.9 % 47-70 [facility] Potassium [Moles/Vol] 4.2 mmol/L 3.5-5.1 [facility] Sodium [Moles/Vol] 141 mmol/L 136-145 [facility] WBC (Bld) [#/Vol] 8.4 10*3/uL 4.4-11.0 [facility] Blood erythrocytes count (nu mber/volume)Ordered By: Vineet Wright on 03-08-2023 RBC (Bld) [#/Vol] 3.72 10*6/uL 4.6-6.2 [facility] Blood hemoglobin measurement (mass/volume)Ordered By: Vineet Wright on 03-08-2023 Hemoglobin (Bld) [Mass/Vol] 11.5 g/dL 13.0-16.5 [facility] Blood lymphocytes/100 leukoc ytesOrdered By: Vineet Wright on 03-08-2023 Lymphocytes/100 WBC (Bld) 14.6 % 19-41 [facility] Blood monocytes/100 leukocyt esOrdered By: Vineet Wright on 03-08-2023 Monocytes/100 WBC (Bld) 8.6 % 0-10 [facility] Blood platelet mean volumeOr dered By: Vineet Wright on 03-08-2023 Platelet mean volume (Bld) [Entitic vol] 10.0 fL 6.2-12.0 [facility] Determination of erythrocyte mean corpuscular volume (MCV)Ordered By: Vineet Wright on 03-08-2023 MCV (RBC) [Entitic vol] 98.4 fL 80-94 [facility] Hematocrit Auto (Bld) [Volum e fraction]Ordered By: Vineet Wright on 03-08-2023 Hematocrit (Bld) [Volume fraction] 36.6 % 40-54 [facility] Laboratory - Chemistry and C hemistry - challengeOrdered By: Vineet Wright on 03-08-2023 CO2 [Moles/Vol] 20.0 mmol/L 21.0-32.0 [facility] Urea nitrogen/Creatinine [Mass ratio] 17.0 mg/mg 10-20 [facility] - Hematology and Cell countsOrdered By: Vineet Wright on 03-08-2023 Erythrocyte distribution width (RBC) [Entitic vol] 52.7 fL 35.1-43.9 [facility] Erythrocyte distribution width (RBC) [Ratio] 14.7 % 11.6-14.6 [facility] Immature granulocytes/100 WBC (Bld) 0.700 % 0.0-0.9 [facility] Comment on above: IG% - Immature Granu locytes (promyelocytes, myelocytes and metamyelocytes) > 1% indicates that a LEFT SHIFT is Present. MCH (RBC) [Entitic mass] 30.9 pg 27.0-32.0 [facility] Nucleated RBC/100 WBC (Bld) [Ratio] 0 % 0-5 [facility] MCHC Auto (RBC) [Mass/Vol]Or dered By: Vineet Wright on 03-08-2023 MCHC (RBC) [Mass/Vol] 31.4 g/dL 32-36 [facility] No Panel InformationOrdered By: Vineet Wright on 03-08-2023 Estimated Creatinine Clearance Calc 27.92 ml/min [facility] Estimated GFR (MDRD) Amer 35 mL/min >60 [facility] [facility] Comment on above: GFR Calc Estimated GFR (MDRD) Non-Af Amer 29 mL/min >60 [facility] Comment on above: Non- GFR Calc Platelets bldOrdered By: Livan Wright on 03-08-2023 Platelets (Bld) [#/Vol] 178 10*3/uL 150-450 [facility] Serum or plasma calcium baljeet urement (mass/volume)Ordered By: Vineet Wright on 03-08-2023 Calcium [Mass/Vol] 8.5 mg/dL 8.5-10.1 [facility] Serum or plasma creatinine m easurement (mass/volume)Ordered By: Vineet Wright on 03-08-2023 Creatinine [Mass/Vol] 2.29 mg/dL 0.70-1.30 [facility] Comment on above: The validity of the calculated GFR & GFRAA in patients over 70 years has not been determined. Clinical correlation is essential. Serum or plasma urea nitroge n measurement (mass/volume)Ordered By: Vineet Wright on 03-08-2023 Urea nitrogen [Mass/Vol] 39 mg/dL 7-18 [facility] Thin prep Papanicolaou smear with manual screeningOrdered By: Vineet Wright on 03-08-2023 Thin prep Papanicolaou smear with manual screening 9 5-15 [facility] Basophil percentageOrdered B y: Dr. Edge on 02-07-2023 Bilirubin [Mass/Vol] 0.30 mg/dL 0.20-1.00 [facility] Comment on above: For patients on eltr ombopag therapy, use of Dimension [employer] TBIL is not recommended. Chloride [Moles/Vol] 115 mmol/L 98-107 [facility] Glucose [Mass/Vol] 131 mg/dL 74-106 [facility] Comment on above: Fasting Glucose resu lt greater than or equal to 126 mg/dL suggests DIABETES MELLITUS per A.D.A. criteria. Potassium [Moles/Vol] 4.2 mmol/L 3.5-5.1 [facility] Protein [Mass/Vol] 6.7 g/dL 6.4-8.2 [facility] Sodium [Moles/Vol] 144 mmol/L 136-145 [facility] Laboratory - Chemistry and C hemistry - challengeOrdered By: Dr. Edge on 02-07-2023 ALP [Catalytic activity/Vol] 103 U/L 45-117 [facility] ALT [Catalytic activity/Vol] 24 U/L 16-61 [facility] CO2 [Moles/Vol] 25.0 mmol/L 21.0-32.0 [facility] Globulin (S) [Mass/Vol] 3.4 g/dL 2.2-4.2 [facility] Urea nitrogen/Creatinine [Mass ratio] 19.8 mg/mg 10-20 [facility] No Panel InformationOrdered By: Dr. Edge on 02-07-2023 Estimated GFR (MDRD) Amer 49 mL/min >60 [facility] Comment on above: GFR Calc Estimated GFR (MDRD) Non-Af Amer 40 mL/min >60 [facility] Comment on above: Non- GFR Calc Serum or plasma albumin baljeet urement (mass/volume)Ordered By: Dr. Edge on 02-07-2023 Albumin [Mass/Vol] 3.3 g/dL 3.2-5.0 [facility] Serum or plasma albumin/glob ulin mass ratioOrdered By: Dr. Edge on 02-07-2023 Albumin/Globulin [Mass ratio] 1.0 {ratio} 0.9-2.4 [facility] Serum or plasma calcium baljeet urement (mass/volume)Ordered By: Dr. Edge on 02-07-2023 Calcium [Mass/Vol] 9.3 mg/dL 8.5-10.1 [facility] Serum or plasma creatinine m easurement (mass/volume)Ordered By: Dr. Edge on 02-07-2023 Creatinine [Mass/Vol] 1.72 mg/dL 0.70-1.30 [facility] Comment on above: The validity of the calculated GFR & GFRAA in patients over 70 years has not been determined. Clinical correlation is essential. Serum or plasma urea nitroge n measurement (mass/volume)Ordered By: Dr. Edge on 02-07-2023 Urea nitrogen [Mass/Vol] 34 mg/dL 7-18 [facility] Thin prep Papanicolaou smear with manual screeningOrdered By: Dr. Edge on 02-07-2023 Thin prep Papanicolaou smear with manual screening 16 U/L 15-37 [facility] Thin prep Papanicolaou smear with manual screening 4 5-15 [facility] Basophil percentageOrdered B y: Dr. Gotti on 01-08-2023 Bilirubin [Mass/Vol] 0.40 mg/dL 0.20-1.00 [facility] Comment on above: For patients on eltr ombopag therapy, use of Dimension [employer] TBIL is not recommended. Chloride [Moles/Vol] 111 mmol/L 98-107 [facility] Glucose [Mass/Vol] 151 mg/dL 74-106 [facility] Comment on above: Fasting Glucose resu lt greater than or equal to 126 mg/dL suggests DIABETES MELLITUS per A.D.A. criteria. Potassium [Moles/Vol] 4.0 mmol/L 3.5-5.1 [facility] Protein [Mass/Vol] 7.1 g/dL 6.4-8.2 [facility] Sodium [Moles/Vol] 142 mmol/L 136-145 [facility] Laboratory - Chemistry and C hemistry - challengeOrdered By: Dr. Gotti on 01-08-2023 ALP [Catalytic activity/Vol] 109 U/L 45-117 [facility] ALT [Catalytic activity/Vol] 27 U/L 16-61 [facility] CO2 [Moles/Vol] 25.0 mmol/L 21.0-32.0 [facility] Free T4 [Mass/Vol] 1.01 ng/dL 0.76-1.46 [facility] Globulin (S) [Mass/Vol] 3.6 g/dL 2.2-4.2 [facility] Urea nitrogen/Creatinine [Mass ratio] 18.8 mg/mg 10-20 [facility] No Panel InformationOrdered By: Dr. Gotti on 01-08-2023 Estimated GFR (MDRD) Amer 46 mL/min >60 [facility] Comment on above: GFR Calc Estimated GFR (MDRD) Non-Af Amer 38 mL/min >60 [facility] Comment on above: Non- GFR Calc Thyroid Stimulating Hormone (TSH) 2.79 uIU/mL 0.358-3.74 [facility] Vitamin D 25-Hydroxy 64.7 ng/mL [facility] Comment on above: Vitamin D 25(OH) Sta tus Range Deficiency <20 ng/mL (50nmol/L) Insufficiency 20 - 30 ng/mL (50 - 75 nmol/L) Sufficiency 30 - 100 ng/mL (75 - 250 nmol/L) Toxicity >100 ng/mL (>250 nmol/L) Serum or plasma albumin baljeet urement (mass/volume)Ordered By: Dr. Gotti on 01-08-2023 Albumin [Mass/Vol] 3.5 g/dL 3.2-5.0 [facility] Serum or plasma albumin/glob ulin mass ratioOrdered By: Dr. Gotti on 01-08-2023 Albumin/Globulin [Mass ratio] 1.0 {ratio} 0.9-2.4 [facility] Serum or plasma calcium baljeet urement (mass/volume)Ordered By: Dr. Gotti on 01-08-2023 Calcium [Mass/Vol] 9.1 mg/dL 8.5-10.1 [facility] Serum or plasma creatinine m easurement (mass/volume)Ordered By: Dr. Gotti on 01-08-2023 Creatinine [Mass/Vol] 1.81 mg/dL 0.70-1.30 [facility] Comment on above: The validity of the calculated GFR & GFRAA in patients over 70 years has not been determined. Clinical correlation is essential. Serum or plasma urea nitroge n measurement (mass/volume)Ordered By: Dr. Gotti on 01-08-2023 Urea nitrogen [Mass/Vol] 34 mg/dL 7-18 [facility] Thin prep Papanicolaou smear with manual screeningOrdered By: Dr. Gotti on 01-08-2023 Thin prep Papanicolaou smear with manual screening 18 U/L 15-37 [facility] Thin prep Papanicolaou smear with manual screening 6 5-15 [facility] Whole blood hemoglobin A1c/t otal hemoglobin ratio (mass fraction)Ordered By: Dr. Gotti on 01-08-2023 HbA1c (Bld) [Mass fraction] 7.1 % 3.8-5.6 [facility] Comment on above: Normal < 5.7 % Predi abetic 5.7 - 6.4 % Diabetic >or= 6.5 % Please note range changes. Basophil percentageOrdered B y: Dr. Gotti on 09-09-2022 Bilirubin [Mass/Vol] 0.60 mg/dL 0.20-1.00 [facility] Comment on above: For patients on eltr ombopag therapy, use of Dimension [employer] TBIL is not recommended. Chloride [Moles/Vol] 111 mmol/L 98-107 [facility] Cholesterol [Mass/Vol] 126 mg/dL <200 [facility] Comment on above: <200 mg/dL Desirable 200-240 mg/dL Borderline >240 mg/dL High Risk Glucose [Mass/Vol] 151 mg/dL 74-106 [facility] Comment on above: Fasting Glucose resu lt greater than or equal to 126 mg/dL suggests DIABETES MELLITUS per A.D.A. criteria. Potassium [Moles/Vol] 4.2 mmol/L 3.5-5.1 [facility] Comment on above: Slight Hemolysis, Re sult may be falsely increased. Protein [Mass/Vol] 6.9 g/dL 6.4-8.2 [facility] Sodium [Moles/Vol] 142 mmol/L 136-145 [facility] Triglyceride [Mass/Vol] 91 mg/dL <199 [facility] Comment on above: The drugs N-Acetylcy steine and Metamizole may falsely depress this assay.Serum Triglycerides Reference Interval Normal <150 mg/dL Borderline high 150 - 199 mg/dL High 200 - 499 mg/dL Very High > or = 500 mg/dL Laboratory - Chemistry and C hemistry - challengeOrdered By: Dr. Gotti on 09-09-2022 ALP [Catalytic activity/Vol] 83 U/L 45-117 [facility] ALT [Catalytic activity/Vol] 25 U/L 16-61 [facility] CO2 [Moles/Vol] 25.0 mmol/L 21.0-32.0 [facility] Free T4 [Mass/Vol] 1.27 ng/dL 0.76-1.46 [facility] Globulin (S) [Mass/Vol] 3.4 g/dL 2.2-4.2 [facility] Urea nitrogen/Creatinine [Mass ratio] 15.5 mg/mg 10-20 [facility] No Panel InformationOrdered By: Dr. Gotti on 09-09-2022 Estimated GFR (MDRD) Amer 43 mL/min >60 [facility] Comment on above: GFR Calc Estimated GFR (MDRD) Non-Af Amer 35 mL/min >60 [facility] Comment on above: Non- GFR Calc Thyroid Stimulating Hormone (TSH) 2.65 uIU/mL 0.358-3.74 [facility] Serum or plasma albumin baljeet urement (mass/volume)Ordered By: Dr. Gotti on 09-09-2022 Albumin [Mass/Vol] 3.5 g/dL 3.2-5.0 [facility] Serum or plasma albumin/glob ulin mass ratioOrdered By: Dr. Gotti on 09-09-2022 Albumin/Globulin [Mass ratio] 1.0 {ratio} 0.9-2.4 [facility] Serum or plasma calcium baljeet urement (mass/volume)Ordered By: Dr. Gotti on 09-09-2022 Calcium [Mass/Vol] 9.0 mg/dL 8.5-10.1 [facility] Serum or plasma cholesterol in HDL measurement (mass/volume)Ordered By: Dr. Gotti on 09-09-2022 Cholesterol in HDL [Mass/Vol] 63 mg/dL >40 [facility] Comment on above: The drugs N-Acetylcy steine and Metamizole may falsely depress this assay. Reference Range HDL <40 mg/dL Low HDL Cholesterol HDL >or= 60 mg/dL High HDL Cholesterol Serum or plasma cholesterol in VLDL measurement (mass/volume)Ordered By: Dr. Gotti on 09-09-2022 Cholesterol in VLDL [Mass/Vol] 18 mg/dL 5-40 [facility] Serum or plasma creatinine m easurement (mass/volume)Ordered By: Dr. Gotti on 09-09-2022 Creatinine [Mass/Vol] 1.93 mg/dL 0.70-1.30 [facility] Comment on above: The validity of the calculated GFR & GFRAA in patients over 70 years has not been determined. Clinical correlation is essential. Serum or plasma low density lipoprotein (LDL) cholesterol measurement (mass/volume)Ordered By: Dr. Gotti on 09-09-2022 Cholesterol in LDL [Mass/Vol] 45 mg/dL 0-130 [facility] Serum or plasma urea nitroge n measurement (mass/volume)Ordered By: Dr. Gotti on 09-09-2022 Urea nitrogen [Mass/Vol] 30 mg/dL 7-18 [facility] Thin prep Papanicolaou smear with manual screeningOrdered By: Dr. Gotti on 09-09-2022 Thin prep Papanicolaou smear with manual screening 22 U/L [facility] Comment on above: Slight Hemolysis, Re sult may be falsely increased. Thin prep Papanicolaou smear with manual screening 6 01-08 [facility] Whole blood hemoglobin A1c/t otal hemoglobin ratio (mass fraction)Ordered By: Dr. Gotti on 09-09-2022 HbA1c (Bld) [Mass fraction] 7.0 % 3.8-5.6 [facility] Comment on above: Normal < 5.7 % Predi abetic 5.7 - 6.4 % Diabetic >or= 6.5 % Please note range changes. Basophil percentageOrdered B y: Dr. Gotti on 06-05-2022 Bilirubin [Mass/Vol] 0.40 mg/dL 0.20-1.00 [facility] Comment on above: For patients on eltr ombopag therapy, use of Dimension [employer] TBIL is not recommended. Chloride [Moles/Vol] 108 mmol/L 98-107 [facility] Cholesterol [Mass/Vol] 168 mg/dL <200 [facility] Comment on above: <200 mg/dL Desirable 200-240 mg/dL Borderline >240 mg/dL High Risk Glucose [Mass/Vol] 158 mg/dL 74-106 [facility] Comment on above: Fasting Glucose resu lt greater than or equal to 126 mg/dL suggests DIABETES MELLITUS per A.D.A. criteria. Potassium [Moles/Vol] 3.9 mmol/L 3.5-5.1 [facility] Protein [Mass/Vol] 7.1 g/dL 6.4-8.2 [facility] Sodium [Moles/Vol] 143 mmol/L 136-145 [facility] Triglyceride [Mass/Vol] 181 mg/dL <199 [facility] Comment on above: The drugs N-Acetylcy steine and Metamizole may falsely depress this assay.Serum Triglycerides Reference Interval Normal <150 mg/dL Borderline high 150 - 199 mg/dL High 200 - 499 mg/dL Very High > or = 500 mg/dL Laboratory - Chemistry and C hemistry - challengeOrdered By: Dr. Gotti on 06-05-2022 ALP [Catalytic activity/Vol] 75 U/L 45-117 [facility] ALT [Catalytic activity/Vol] 30 U/L 16-61 [facility] CO2 [Moles/Vol] 25.0 mmol/L 21.0-32.0 [facility] Free T4 [Mass/Vol] 1.02 ng/dL 0.76-1.46 [facility] Globulin (S) [Mass/Vol] 3.7 g/dL 2.2-4.2 [facility] Urea nitrogen/Creatinine [Mass ratio] 15.3 mg/mg 10-20 [facility] No Panel InformationOrdered By: Dr. Gotti on 06-05-2022 Estimated GFR (MDRD) Amer 42 mL/min >60 [facility] Comment on above: GFR Calc Estimated GFR (MDRD) Non-Af Amer 35 mL/min >60 [facility] Comment on above: Non- GFR Calc Free Triiodothyronine (T3) pg/dL 1.8 pg/mL 2.18-3.98 [facility] Thyroid Stimulating Hormone (TSH) 2.04 uIU/mL 0.358-3.74 [facility] Vitamin D 25-Hydroxy 52.6 ng/mL [facility] Comment on above: Vitamin D 25(OH) Sta tus Range Deficiency <20 ng/mL (50nmol/L) Insufficiency 20 - 30 ng/mL (50 - 75 nmol/L) Sufficiency 30 - 100 ng/mL (75 - 250 nmol/L) Toxicity >100 ng/mL (>250 nmol/L) Serum or plasma albumin baljeet urement (mass/volume)Ordered By: Dr. Gotti on 06-05-2022 Albumin [Mass/Vol] 3.4 g/dL 3.2-5.0 [facility] Serum or plasma albumin/glob ulin mass ratioOrdered By: Dr. Gotti on 06-05-2022 Albumin/Globulin [Mass ratio] 0.9 {ratio} 0.9-2.4 [facility] Serum or plasma calcium baljeet urement (mass/volume)Ordered By: Dr. Gotti on 06-05-2022 Calcium [Mass/Vol] 9.1 mg/dL 8.5-10.1 [facility] Serum or plasma cholesterol in HDL measurement (mass/volume)Ordered By: Dr. Gotti on 06-05-2022 Cholesterol in HDL [Mass/Vol] 46 mg/dL >40 [facility] Comment on above: The drugs N-Acetylcy steine and Metamizole may falsely depress this assay. Reference Range HDL <40 mg/dL Low HDL Cholesterol HDL >or= 60 mg/dL High HDL Cholesterol Serum or plasma cholesterol in VLDL measurement (mass/volume)Ordered By: Dr. Gotti on 06-05-2022 Cholesterol in VLDL [Mass/Vol] 36 mg/dL 5-40 [facility] Serum or plasma creatinine m easurement (mass/volume)Ordered By: Dr. Gotti on 06-05-2022 Creatinine [Mass/Vol] 1.96 mg/dL 0.70-1.30 [facility] Comment on above: The validity of the calculated GFR & GFRAA in patients over 70 years has not been determined. Clinical correlation is essential. Serum or plasma low density lipoprotein (LDL) cholesterol measurement (mass/volume)Ordered By: Dr. Gotti on 06-05-2022 Cholesterol in LDL [Mass/Vol] 86 mg/dL 0-130 [facility] Serum or plasma urea nitroge n measurement (mass/volume)Ordered By: Dr. Gotti on 06-05-2022 Urea nitrogen [Mass/Vol] 30 mg/dL 7-18 [facility] Thin prep Papanicolaou smear with manual screeningOrdered By: Dr. Gotti on 06-05-2022 Thin prep Papanicolaou smear with manual screening 17 U/L 15-37 [facility] Thin prep Papanicolaou smear with manual screening 10 5-15 [facility] Whole blood hemoglobin A1c/t otal hemoglobin ratio (mass fraction)Ordered By: Dr. Gotti on 06-05-2022 HbA1c (Bld) [Mass fraction] 7.0 % 3.8-5.6 [facility] Comment on above: Normal < 5.7 % Predi abetic 5.7 - 6.4 % Diabetic >or= 6.5 % Please note range changes. Glucose Glucometer (BldC) [M ass/Vol]on 04-05-2022 Glucose [Mass/Vol] 158 mg/dL 74-106 [facility] Work Phone: Comment on above: MANAGEMENT OF PATIEN T CARE PER NURSING PROTOCOL Basophil percentageon 2021 Chloride [Moles/Vol] 109 mmol/L 98-107 [facility] Work Phone: Glucose [Mass/Vol] 237 mg/dL 74-106 [facility] Work Phone: Comment on above: Glucose result great er than or equal to 200 mg/dLsuggests DIABETES MELLITUS per A.D.A. criteria. Potassium [Moles/Vol] 4.3 mmol/L 3.5-5.1 [facility] Work Phone: Comment on above: Slight Hemolysis, Re sult may be falsely increased. Sodium [Moles/Vol] 139 mmol/L 136-145 [facility] Work Phone: Laboratory - Chemistry and C hemistry - challengeon 04-04-2022 CO2 [Moles/Vol] 24.0 mmol/L 21.0-32.0 [facility] Work Phone: Urea nitrogen/Creatinine [Mass ratio] 17.8 mg/mg 10-20 [facility] Work Phone: No Panel Informationon 04-04 Estimated Creatinine Clearance Calc 37.40 ml/min [facility] Work Phone: Estimated GFR (MDRD) Amer 48 mL/min >60 [facility] Work Phone: Comment on above: GFR Calc Estimated GFR (MDRD) Non-Af Amer 40 mL/min >60 [facility] Work Phone: Comment on above: Non- GFR Calc Serum or plasma calcium baljeet urement (mass/volume)on 04-04-2022 Calcium [Mass/Vol] 9.2 mg/dL 8.5-10.1 [facility] Work Phone: [phone] Serum or plasma creatinine m easurement (mass/volume)on 04-04-2022 Creatinine [Mass/Vol] 1.74 mg/dL 0.70-1.30 [facility] Work Phone: Comment on above: The validity of the calculated GFR & GFRAA in patients over 70 years has not been determined. Clinical correlation is essential. Serum or plasma urea nitroge n measurement (mass/volume)on 04-04-2022 Urea nitrogen [Mass/Vol] 31 mg/dL 7-18 [facility] Work Phone: [phone] Thin prep Papanicolaou smear with manual screeningon 04-04-2022 Thin prep Papanicolaou smear with manual screening 6 5-15 [facility] Work Phone: [phone] Absolute lymphocyte counton 04-03-2022 Lymphocytes Auto (Unsp spec) [#/Vol] 0.83 10*3/uL 0.83-4.51 [facility] Work Phone: [phone] Basophil percentageon 2021 Basophils/100 WBC (Bld) 0.6 % 0-1 [facility] Work Phone: [phone] Cholesterol [Mass/Vol] 114 mg/dL <200 [facility] Work Phone: [phone] Comment on above: <200 mg/dL Desirable 200-240 mg/dL Borderline >240 mg/dL High Risk Eosinophils/100 WBC (Bld) 2.2 % 0-5 [facility] Work Phone: [phone] Neutrophils (Bld) [#/Vol] 5.6 10*3/uL 2.0-7.7 [facility] Work Phone: [phone] Neutrophils/100 WBC (Bld) 77.1 % 47-70 [facility] Work Phone: Triglyceride [Mass/Vol] 93 mg/dL <199 [facility] Work Phone: Comment on above: The drugs N-Acetylcy steine and Metamizole may falsely depress this assay.Serum Triglycerides Reference Interval Normal <150 mg/dL Borderline high 150 - 199 mg/dL High 200 - 499 mg/dL Very High > or = 500 mg/dL WBC (Bld) [#/Vol] 7.2 10*3/uL 4.4-11.0 [facility] Work Phone: Blood erythrocytes count (nu mber/volume)on 04-03-2022 RBC (Bld) [#/Vol] 3.94 10*6/uL 4.6-6.2 [facility] Work Phone: Blood hemoglobin measurement (mass/volume)on 04-03-2022 Hemoglobin (Bld) [Mass/Vol] 11.7 g/dL 13.0-16.5 [facility] Work Phone: Blood lymphocytes/100 leukoc yteson 04-03-2022 Lymphocytes/100 WBC (Bld) 11.5 % 19-41 [facility] Work Phone: Blood monocytes/100 leukocyt eson 04-03-2022 Monocytes/100 WBC (Bld) 8.0 % 0-10 [facility] Work Phone: Blood platelet mean volumeon 04-03-2022 Platelet mean volume (Bld) [Entitic vol] 9.6 fL 6.2-12.0 [facility] Work Phone: Determination of erythrocyte mean corpuscular volume (MCV)on 04-03-2022 MCV (RBC) [Entitic vol] 92.1 fL 80-94 [facility] Work Phone: Hematocrit Auto (Bld) [Volum e fraction]on 04-03-2022 Hematocrit (Bld) [Volume fraction] 36.3 % 40-54 [facility] Work Phone: [phone] Laboratory - Chemistry and C hemistry - challengeon 04-03-2022 Magnesium [Mass/Vol] 1.8 mg/dL 1.6-2.6 [facility] Work Phone: [phone] Laboratory - Hematology and Cell countson 04-03-2022 Erythrocyte distribution width (RBC) [Entitic vol] 49.6 fL 35.1-43.9 [facility] Work Phone: [phone] Erythrocyte distribution width (RBC) [Ratio] 14.8 % 11.6-14.6 [facility] Work Phone: [phone] Immature granulocytes/100 WBC (Bld) 0.600 % 0.0-0.9 [facility] Work Phone: [phone] Comment on above: IG% - Immature Granu locytes (promyelocytes, myelocytes and metamyelocytes) > 1% indicates that a LEFT SHIFT is Present. MCH (RBC) [Entitic mass] 29.7 pg 27.0-32.0 [facility] Work Phone: [phone] Nucleated RBC/100 WBC (Bld) [Ratio] 0 % 0-5 [facility] Work Phone: [phone] MCHC Auto (RBC) [Mass/Vol]on 04-03-2022 MCHC (RBC) [Mass/Vol] 32.2 g/dL 32-36 [facility] Work Phone: [phone] Platelets bldon 04-03-2022 Platelets (Bld) [#/Vol] 186 10*3/uL 150-450 [facility] Work Phone: [phone] Serum or plasma cholesterol in HDL measurement (mass/volume)on 04-03-2022 Cholesterol in HDL [Mass/Vol] 53 mg/dL >40 [facility] Work Phone: [phone] Comment on above: The drugs N-Acetylcy steine and Metamizole may falsely depress this assay. Reference Range HDL <40 mg/dL Low HDL Cholesterol HDL >or= 60 mg/dL High HDL Cholesterol Serum or plasma cholesterol in VLDL measurement (mass/volume)on 04-03-2022 Cholesterol in VLDL [Mass/Vol] 19 mg/dL 5-40 [facility] Work Phone: Serum or plasma low density lipoprotein (LDL) cholesterol measurement (mass/volume)on 04-03-2022 Cholesterol in LDL [Mass/Vol] 42 mg/dL 0-130 [facility] Work Phone: Absolute lymphocyte counton 04-02-2022 Lymphocytes Auto (Unsp spec) [#/Vol] 0.94 10*3/uL 0.83-4.51 [facility] Work Phone: Basophil percentageon 2021 Basophils/100 WBC (Bld) 0.4 % 0-1 [facility] Work Phone: Bilirubin [Mass/Vol] 0.30 mg/dL 0.20-1.00 [facility] Work Phone: Comment on above: For patients on eltr ombopag therapy, use of Dimension [employer] TBIL is not recommended. Chloride [Moles/Vol] 111 mmol/L 98-107 [facility] Work Phone: Eosinophils/100 WBC (Bld) 1.7 % 0-5 [facility] Work Phone: Glucose [Mass/Vol] 155 mg/dL 74-106 [facility] Work Phone: Comment on above: Fasting Glucose resu lt greater than or equal to 126 mg/dL suggests DIABETES MELLITUS per A.D.A. criteria. Neutrophils (Bld) [#/Vol] 5.8 10*3/uL 2.0-7.7 [facility] Work Phone: Neutrophils/100 WBC (Bld) 77.0 % 47-70 [facility] Work Phone: Potassium [Moles/Vol] 3.9 mmol/L 3.5-5.1 [facility] Work Phone: Comment on above: Moderate Hemolysis, Result may be falsely increased. Protein [Mass/Vol] 6.9 g/dL 6.4-8.2 [facility] Work Phone: Sodium [Moles/Vol] 140 mmol/L 136-145 [facility] Work Phone: WBC (Bld) [#/Vol] 7.5 10*3/uL 4.4-11.0 [facility] Work Phone: Blood erythrocytes count (nu mber/volume)on 04-02-2022 RBC (Bld) [#/Vol] 4.01 10*6/uL 4.6-6.2 [facility] Work Phone: Blood hemoglobin measurement (mass/volume)on 04-02-2022 Hemoglobin (Bld) [Mass/Vol] 11.8 g/dL 13.0-16.5 [facility] Work Phone: Blood lymphocytes/100 leukoc yteson 04-02-2022 Lymphocytes/100 WBC (Bld) 12.5 % 19-41 [facility] Work Phone: Blood monocytes/100 leukocyt eson 04-02-2022 Monocytes/100 WBC (Bld) 7.9 % 0-10 [facility] Work Phone: Blood platelet mean volumeon 04-02-2022 Platelet mean volume (Bld) [Entitic vol] 10.5 fL 6.2-12.0 [facility] Work Phone: Determination of erythrocyte mean corpuscular volume (MCV)on 04-02-2022 MCV (RBC) [Entitic vol] 94.0 fL 80-94 [facility] Work Phone: Hematocrit Auto (Bld) [Volum e fraction]on 04-02-2022 Hematocrit (Bld) [Volume fraction] 37.7 % 40-54 [facility] Work Phone: Laboratory - Chemistry and C hemistry - challengeon 04-02-2022 ALP [Catalytic activity/Vol] 83 U/L 45-117 [facility] Work Phone: ALT [Catalytic activity/Vol] 22 U/L 16-61 [facility] Work Phone: [phone] CO2 [Moles/Vol] 23.0 mmol/L 21.0-32.0 [facility] Work Phone: [phone] Globulin (S) [Mass/Vol] 3.6 g/dL 2.2-4.2 [facility] Work Phone: [phone] Urea nitrogen/Creatinine [Mass ratio] 16.8 mg/mg 10-20 [facility] Work Phone: Laboratory - Hematology and Cell countson 04-02-2022 Erythrocyte distribution width (RBC) [Entitic vol] 49.9 fL 35.1-43.9 [facility] Work Phone: [phone] Erythrocyte distribution width (RBC) [Ratio] 14.8 % 11.6-14.6 [facility] Work Phone: [phone] Immature granulocytes/100 WBC (Bld) 0.500 % 0.0-0.9 [facility] Work Phone: [phone] Comment on above: IG% - Immature Granu locytes (promyelocytes, myelocytes and metamyelocytes) > 1% indicates that a LEFT SHIFT is Present. MCH (RBC) [Entitic mass] 29.4 pg 27.0-32.0 [facility] Work Phone: Nucleated RBC/100 WBC (Bld) [Ratio] 0 % 0-5 [facility] Work Phone: [phone] MCHC Auto (RBC) [Mass/Vol]on 04-02-2022 MCHC (RBC) [Mass/Vol] 31.3 g/dL 32-36 [facility] Work Phone: No Panel Informationon 04-02 Estimated Creatinine Clearance Calc 32.22 ml/min [facility] Work Phone: [phone] Estimated GFR (MDRD) Amer 41 mL/min >60 [facility] Work Phone: [phone] Comment on above: GFR Calc Estimated GFR (MDRD) Non-Af Amer 34 mL/min >60 [facility] Work Phone: Comment on above: Non- GFR Calc Troponin I High Sensitivity 16 pg/mL 3.0-78.0 [facility] Work Phone: Comment on above: Please Note: New Mariajose t Units and Gender Specific Reference Ranges. For more information see Policy Stat Procedure [facility] High Sensitivity Troponin (TNIH) and attachments. Platelets bldon 04-02-2022 Platelets (Bld) [#/Vol] 201 10*3/uL 150-450 [facility] Work Phone: Serum or plasma albumin baljeet urement (mass/volume)on 04-02-2022 Albumin [Mass/Vol] 3.3 g/dL 3.2-5.0 [facility] Work Phone: Serum or plasma albumin/glob ulin mass ratioon 04-02-2022 Albumin/Globulin [Mass ratio] 0.9 {ratio} 0.9-2.4 [facility] Work Phone: Serum or plasma calcium baljeet urement (mass/volume)on 04-02-2022 Calcium [Mass/Vol] 8.8 mg/dL 8.5-10.1 [facility] Work Phone: Serum or plasma creatinine m easurement (mass/volume)on 04-02-2022 Creatinine [Mass/Vol] 2.02 mg/dL 0.70-1.30 [facility] Work Phone: Comment on above: The validity of the calculated GFR & GFRAA in patients over 70 years has not been determined. Clinical correlation is essential. Serum or plasma urea nitroge n measurement (mass/volume)on 04-02-2022 Urea nitrogen [Mass/Vol] 34 mg/dL 7-18 [facility] Work Phone: Thin prep Papanicolaou smear with manual screeningon 04-02-2022 Thin prep Papanicolaou smear with manual screening 24 U/L 15-37 [facility] Work Phone: Comment on above: Moderate Hemolysis, Result may be falsely increased. Thin prep Papanicolaou smear with manual screening 6 5-15 [facility] Work Phone: Basophil percentageon 2021 Bilirubin [Mass/Vol] 0.40 mg/dL 0.20-1.00 [facility] Work Phone: Comment on above: For patients on eltr ombopag therapy, use of Dimension [facility] TBIL is not recommended. Chloride [Moles/Vol] 111 mmol/L 98-107 [facility] Work Phone: [phone] Glucose [Mass/Vol] 116 mg/dL 74-106 [facility] Work Phone: [phone] Comment on above: Fasting Glucose resu lt from 100 to 125 mg/dL suggests IMPAIRED HOMEOSTASIS per A.D.A. criteria. Potassium [Moles/Vol] 3.8 mmol/L 3.5-5.1 [facility] Work Phone: [phone] Protein [Mass/Vol] 6.8 g/dL 6.4-8.2 [facility] Work Phone: [phone] Sodium [Moles/Vol] 142 mmol/L 136-145 [facility] Work Phone: [phone] Laboratory - Chemistry and C hemistry - challengeon 03-09-2022 ALP [Catalytic activity/Vol] 88 U/L 45-117 [facility] Work Phone: ALT [Catalytic activity/Vol] 20 U/L 16-61 [facility] Work Phone: [phone] CO2 [Moles/Vol] 26.0 mmol/L 21.0-32.0 [facility] Work Phone: [phone] Globulin (S) [Mass/Vol] 3.4 g/dL 2.2-4.2 [facility] Work Phone: Urea nitrogen/Creatinine [Mass ratio] 18.1 mg/mg 10-20 [facility] Work Phone: No Panel Informationon 03-09 Estimated GFR (MDRD) Amer 46 mL/min >60 [facility] Work Phone: Comment on above: GFR Calc Estimated GFR (MDRD) Non-Af Amer 38 mL/min >60 [facility] Work Phone: Comment on above: Non- GFR Calc Thyroid Stimulating Hormone (TSH) 1.75 uIU/mL 0.358-3.74 [facility] Work Phone: Vitamin D 25-Hydroxy 52.2 ng/mL [facility] Work Phone: Comment on above: Vitamin D 25(OH) Sta tus Range Deficiency <20 ng/mL (50nmol/L) Insufficiency 20 - 30 ng/mL (50 - 75 nmol/L) Sufficiency 30 - 100 ng/mL (75 - 250 nmol/L) Toxicity >100 ng/mL (>250 nmol/L) Serum or plasma albumin baljeet urement (mass/volume)on 03-09-2022 Albumin [Mass/Vol] 3.4 g/dL 3.2-5.0 [facility] Work Phone: Serum or plasma albumin/glob ulin mass ratioon 03-09-2022 Albumin/Globulin [Mass ratio] 1.0 {ratio} 0.9-2.4 [facility] Work Phone: Serum or plasma calcium baljeet urement (mass/volume)on 03-09-2022 Calcium [Mass/Vol] 9.3 mg/dL 8.5-10.1 [facility] Work Phone: Serum or plasma creatinine m easurement (mass/volume)on 03-09-2022 Creatinine [Mass/Vol] 1.82 mg/dL 0.70-1.30 [facility] Work Phone: Comment on above: The validity of the calculated GFR & GFRAA in patients over 70 years has not been determined. Clinical correlation is essential. Serum or plasma urea nitroge n measurement (mass/volume)on 03-09-2022 Urea nitrogen [Mass/Vol] 33 mg/dL 7-18 [facility] Work Phone: Thin prep Papanicolaou smear with manual screeningon 03-09-2022 Thin prep Papanicolaou smear with manual screening 15 U/L 15-37 [facility] Work Phone: Thin prep Papanicolaou smear with manual screening 5 5-15 [facility] Work Phone: Thin prep Papanicolaou smear with manual screening 289.0 mg/L NO RANGE EST. [facility] Work Phone: Whole blood hemoglobin A1c/t otal hemoglobin ratio (mass fraction)on 03-09-2022 HbA1c (Bld) [Mass fraction] 6.7 % 3.8-5.6 [facility] Work Phone: Comment on above: Normal < 5.7 % Predi abetic 5.7 - 6.4 % Diabetic >or= 6.5 % Please note range changes. Basophil percentageon 2021 Chloride [Moles/Vol] 108 mmol/L 98-107 [facility] Work Phone: Glucose [Mass/Vol] 103 mg/dL 74-106 [facility] Work Phone: Comment on above: Fasting Glucose resu lt from 100 to 125 mg/dL suggests IMPAIRED HOMEOSTASIS per A.D.A. criteria. Potassium [Moles/Vol] 3.6 mmol/L 3.5-5.1 [facility] Work Phone: Sodium [Moles/Vol] 142 mmol/L 136-145 [facility] Work Phone: Laboratory - Chemistry and C hemistry - challengeon 02-13-2022 CO2 [Moles/Vol] 30.0 mmol/L 21.0-32.0 [facility] Work Phone: Urea nitrogen/Creatinine [Mass ratio] 14.7 mg/mg 06-15 [facility] Work Phone: No Panel Informationon 02-13 Estimated GFR (MDRD) Amer 52 mL/min >60 [facility] Work Phone: Comment on above: GFR Calc Estimated GFR (MDRD) Non-Af Amer 43 mL/min >60 [facility] Work Phone: Comment on above: Non- GFR Calc Serum or plasma calcium baljeet urement (mass/volume)on 02-13-2022 Calcium [Mass/Vol] 8.7 mg/dL 8.5-10.1 [facility] Work Phone: Serum or plasma creatinine m easurement (mass/volume)on 02-13-2022 Creatinine [Mass/Vol] 1.63 mg/dL 0.70-1.30 [facility] Work Phone: Comment on above: The validity of the calculated GFR & GFRAA in patients over 70 years has not been determined. Clinical correlation is essential. Serum or plasma urea nitroge n measurement (mass/volume)on 02-13-2022 Urea nitrogen [Mass/Vol] 24 mg/dL 7-18 [facility] Work Phone: Thin prep Papanicolaou smear with manual screeningon 02-13-2022 Thin prep Papanicolaou smear with manual screening 4 5-15 [facility] Work Phone: Basophil percentageon 2021 Chloride [Moles/Vol] 106 mmol/L 98-107 [facility] Work Phone: [phone] Glucose [Mass/Vol] 152 mg/dL 74-106 [facility] Work Phone: Comment on above: Fasting Glucose resu lt greater than or equal to 126 mg/dL suggests DIABETES MELLITUS per A.D.A. criteria. Potassium [Moles/Vol] 3.2 mmol/L 3.5-5.1 [facility] Work Phone: Sodium [Moles/Vol] 141 mmol/L 136-145 [facility] Work Phone: [phone] Laboratory - Chemistry and C hemistry - challengeon 02-01-2022 CO2 [Moles/Vol] 28.0 mmol/L 21.0-32.0 [facility] Work Phone: [phone] Urea nitrogen/Creatinine [Mass ratio] 17.1 mg/mg 10-20 [facility] Work Phone: No Panel Informationon 02-01 Estimated GFR (MDRD) Amer 50 mL/min >60 [facility] Work Phone: Comment on above: GFR Calc Estimated GFR (MDRD) Non-Af Amer 41 mL/min >60 [facility] Work Phone: Comment on above: Non- GFR Calc Serum or plasma calcium baljeet urement (mass/volume)on 02-01-2022 Calcium [Mass/Vol] 8.9 mg/dL 8.5-10.1 [facility] Work Phone: Serum or plasma creatinine m easurement (mass/volume)on 02-01-2022 Creatinine [Mass/Vol] 1.70 mg/dL 0.70-1.30 [facility] Work Phone: Comment on above: The validity of the calculated GFR & GFRAA in patients over 70 years has not been determined. Clinical correlation is essential. Serum or plasma urea nitroge n measurement (mass/volume)on 02-01-2022 Urea nitrogen [Mass/Vol] 29 mg/dL 7-18 [facility] Work Phone: Thin prep Papanicolaou smear with manual screeningon 02-01-2022 Thin prep Papanicolaou smear with manual screening 7 5-15 [facility] Work Phone: Absolute lymphocyte counton 01-24-2022 Lymphocytes Auto (Unsp spec) [#/Vol] 0.84 10*3/uL 0.83-4.51 [facility] Work Phone: Basophil percentageon 2021 Basophils/100 WBC (Bld) 0.4 % 0-1 [facility] Work Phone: Chloride [Moles/Vol] 110 mmol/L 98-107 [facility] Work Phone: Eosinophils/100 WBC (Bld) 1.4 % 0-5 [facility] Work Phone: Glucose [Mass/Vol] 108 mg/dL 74-106 [facility] Work Phone: Comment on above: Fasting Glucose resu lt from 100 to 125 mg/dL suggests IMPAIRED HOMEOSTASIS per A.D.A. criteria. Neutrophils (Bld) [#/Vol] 8.7 10*3/uL 2.0-7.7 [facility] Work Phone: Neutrophils/100 WBC (Bld) 81.9 % 47-70 [facility] Work Phone: Potassium [Moles/Vol] 3.6 mmol/L 3.5-5.1 [facility] Work Phone: Sodium [Moles/Vol] 141 mmol/L 136-[address] [facility] Work Phone: WBC (Bld) [#/Vol] 10.6 10*3/uL 4.4-11.0 [facility] Work Phone: Blood erythrocytes count (nu mber/volume)on 01-24-2022 RBC (Bld) [#/Vol] 3.65 10*6/uL 4.6-6.2 [facility] Work Phone: Blood hemoglobin measurement (mass/volume)on 01-24-2022 Hemoglobin (Bld) [Mass/Vol] 10.8 g/dL 13.0-16.5 [facility] Work Phone: Blood lymphocytes/100 leukoc yteson 01-24-2022 Lymphocytes/100 WBC (Bld) 7.9 % 19-41 [facility] Work Phone: Blood monocytes/100 leukocyt eson 01-24-2022 Monocytes/100 WBC (Bld) 8.0 % 0-10 [facility] Work Phone: Blood platelet mean volumeon 01-24-2022 Platelet mean volume (Bld) [Entitic vol] 10.5 fL 6.2-12.0 [facility] Work Phone: Determination of erythrocyte mean corpuscular volume (MCV)on 01-24-2022 MCV (RBC) [Entitic vol] 94.2 fL 80-94 [facility] Work Phone: Glucose Glucometer (BldC) [M ass/Vol]on 01-24-2022 Glucose [Mass/Vol] 99 mg/dL 74-[address] [facility] [facility] [address] [facility]: [phone] Comment on above: MANAGEMENT OF PATIEN T CARE PER NURSING PROTOCOL Hematocrit Auto (Bld) [Volum e fraction]on 01-24-2022 Hematocrit (Bld) [Volume fraction] 34.4 % 40-54 [facility] Work Phone: Laboratory - Chemistry and C hemistry - challengeon 01-24-2022 CO2 [Moles/Vol] 24.0 mmol/L 21.0-32.0 [facility] Work Phone: [phone] Natriuretic peptide B (Bld) [Mass/Vol] 896.8 pg/mL 0-100 [facility] Work Phone: [phone] Urea nitrogen/Creatinine [Mass ratio] 18.8 mg/mg 10-20 [facility] Work Phone: [phone] Laboratory - Hematology and Cell countson 01-24-2022 Erythrocyte distribution width (RBC) [Entitic vol] 49.9 fL 35.1-43.9 [facility] Work Phone: [phone] Erythrocyte distribution width (RBC) [Ratio] 14.6 % 11.6-14.6 [facility] Work Phone: [phone] Immature granulocytes/100 WBC (Bld) 0.400 % 0.0-0.9 [facility] Work Phone: [phone] Comment on above: IG% - Immature Granu locytes (promyelocytes, myelocytes and metamyelocytes) > 1% indicates that a LEFT SHIFT is Present. MCH (RBC) [Entitic mass] 29.6 pg 27.0-32.0 [facility] Work Phone: [phone] Nucleated RBC/100 WBC (Bld) [Ratio] 0 % 0-5 [facility] Work Phone: [phone] MCHC Auto (RBC) [Mass/Vol]on 01-24-2022 MCHC (RBC) [Mass/Vol] 31.4 g/dL 32-36 [facility] Work Phone: [phone] No Panel Informationon 01-24 Estimated Creatinine Clearance Calc 35.95 ml/min [facility] Work Phone: Estimated GFR (MDRD) Amer 46 mL/min >60 [facility] Work Phone: Comment on above: GFR Calc Estimated GFR (MDRD) Non-Af Amer 38 mL/min >60 [facility] Work Phone: Comment on above: Non- GFR Calc Troponin I High Sensitivity 14 pg/mL 3.0-78.0 [facility] Work Phone: Comment on above: Please Note: New Mariajose t Units and Gender Specific Reference Ranges. For more information see Policy Stat Procedure [facility] High Sensitivity Troponin (TNIH) and attachments. Platelets bldon 01-24-2022 Platelets (Bld) [#/Vol] 176 10*3/uL 150-450 [facility] Work Phone: Serum or plasma calcium baljeet urement (mass/volume)on 01-24-2022 Calcium [Mass/Vol] 9.1 mg/dL 8.5-10.1 [facility] Work Phone: Serum or plasma creatinine m easurement (mass/volume)on 01-24-2022 Creatinine [Mass/Vol] 1.81 mg/dL 0.70-1.30 [facility] Work Phone: Comment on above: The validity of the calculated GFR & GFRAA in patients over 70 years has not been determined. Clinical correlation is essential. Serum or plasma urea nitroge n measurement (mass/volume)on 01-24-2022 Urea nitrogen [Mass/Vol] 34 mg/dL 7-18 [facility] Work Phone: Thin prep Papanicolaou smear with manual screeningon 01-24-2022 Thin prep Papanicolaou smear with manual screening 7 5-15 [facility] Work Phone: Basophil percentageon 2021 Chloride [Moles/Vol] 106 mmol/L 98-107 [facility] Work Phone: Glucose [Mass/Vol] 187 mg/dL 74-106 [facility] Work Phone: Comment on above: Fasting Glucose resu lt greater than or equal to 126 mg/dL suggests DIABETES MELLITUS per A.D.A. criteria. Potassium [Moles/Vol] 4.1 mmol/L 3.5-5.1 [facility] Work Phone: Sodium [Moles/Vol] 142 mmol/L 136-145 [facility] Work Phone: Laboratory - Chemistry and C hemistry - challengeon 01-09-2022 CO2 [Moles/Vol] 30.0 mmol/L 21.0-32.0 [facility] Work Phone: Urea nitrogen/Creatinine [Mass ratio] 17.9 mg/mg 10-20 [facility] Work Phone: No Panel Informationon 01-09 Estimated GFR (MDRD) Amer 49 mL/min >60 [facility] Work Phone: Comment on above: GFR Calc Estimated GFR (MDRD) Non-Af Amer 40 mL/min >60 [facility] Work Phone: Comment on above: Non- GFR Calc Serum or plasma calcium baljeet urement (mass/volume)on 01-09-2022 Calcium [Mass/Vol] 9.4 mg/dL 8.5-10.1 [facility] Work Phone: Serum or plasma creatinine m easurement (mass/volume)on 01-09-2022 Creatinine [Mass/Vol] 1.73 mg/dL 0.70-1.30 [facility] Work Phone: Comment on above: The validity of the calculated GFR & GFRAA in patients over 70 years has not been determined. Clinical correlation is essential. Serum or plasma urea nitroge n measurement (mass/volume)on 01-09-2022 Urea nitrogen [Mass/Vol] 31 mg/dL 7-18 [facility] Work Phone: Thin prep Papanicolaou smear with manual screeningon 01-09-2022 Thin prep Papanicolaou smear with manual screening 6 5-15 [facility] Work Phone: Whole blood hemoglobin A1c/t otal hemoglobin ratio (mass fraction)on 01-09-2022 HbA1c (Bld) [Mass fraction] 6.9 % 3.8-5.6 [facility] Work Phone: Comment on above: Normal < 5.7 % Predi abetic 5.7 - 6.4 % Diabetic >or= 6.5 % Please note range changes. Absolute lymphocyte counton 01-04-2022 Lymphocytes Auto (Unsp spec) [#/Vol] 0.90 10*3/uL 0.83-4.51 [facility] Work Phone: Basophil percentageon 2021 Basophils/100 WBC (Bld) 0.4 % 0-1 [facility] Work Phone: Chloride [Moles/Vol] 106 mmol/L 98-107 [facility] Work Phone: Eosinophils/100 WBC (Bld) 3.3 % 0-5 [facility] Work Phone: Glucose [Mass/Vol] 155 mg/dL 74-106 [facility] Work Phone: Comment on above: Fasting Glucose resu lt greater than or equal to 126 mg/dL suggests DIABETES MELLITUS per A.D.A. criteria. Neutrophils (Bld) [#/Vol] 5.7 10*3/uL 2.0-7.7 [facility] Work Phone: Neutrophils/100 WBC (Bld) 74.8 % 47-70 [facility] Work Phone: Potassium [Moles/Vol] 3.6 mmol/L 3.5-5.1 [facility] Work Phone: Sodium [Moles/Vol] 139 mmol/L 136-145 [facility] Work Phone: WBC (Bld) [#/Vol] 7.6 10*3/uL 4.4-11.0 [facility] Work Phone: Blood erythrocytes count (nu mber/volume)on 01-04-2022 RBC (Bld) [#/Vol] 3.54 10*6/uL 4.6-6.2 [facility] Work Phone: Blood hemoglobin measurement (mass/volume)on 01-04-2022 Hemoglobin (Bld) [Mass/Vol] 10.6 g/dL 13.0-16.5 [facility] Work Phone: Blood lymphocytes/100 leukoc yteson 01-04-2022 Lymphocytes/100 WBC (Bld) 11.9 % 19-41 [facility] Work Phone: Blood monocytes/100 leukocyt eson 01-04-2022 Monocytes/100 WBC (Bld) 9.5 % 0-10 [facility] Work Phone: Blood platelet mean volumeon 01-04-2022 Platelet mean volume (Bld) [Entitic vol] 9.7 fL 6.2-12.0 [facility] Work Phone: Determination of erythrocyte mean corpuscular volume (MCV)on 01-04-2022 MCV (RBC) [Entitic vol] 92.9 fL 80-94 [facility] Work Phone: Glucose Glucometer (BldC) [M ass/Vol]on 01-04-2022 Glucose [Mass/Vol] 212 mg/dL 74-106 [facility] Work Phone: Comment on above: MANAGEMENT OF PATIEN T CARE PER NURSING PROTOCOL Hematocrit Auto (Bld) [Volum e fraction]on 01-04-2022 Hematocrit (Bld) [Volume fraction] 32.9 % 40-54 [facility] Work Phone: Laboratory - Chemistry and C hemistry - challengeon 01-04-2022 CO2 [Moles/Vol] 27.0 mmol/L 21.0-32.0 [facility] Work Phone: Urea nitrogen/Creatinine [Mass ratio] 16.6 mg/mg 10-20 [facility] Work Phone: Laboratory - Hematology and Cell countson 01-04-2022 Erythrocyte distribution width (RBC) [Entitic vol] 48.8 fL 35.1-43.9 [facility] Work Phone: [phone] Erythrocyte distribution width (RBC) [Ratio] 14.3 % 11.6-14.6 [facility] Work Phone: [phone] Immature granulocytes/100 WBC (Bld) 0.100 % 0.0-0.9 [facility] Work Phone: [phone] Comment on above: IG% - Immature Granu locytes (promyelocytes, myelocytes and metamyelocytes) > 1% indicates that a LEFT SHIFT is Present. MCH (RBC) [Entitic mass] 29.9 pg 27.0-32.0 [facility] Work Phone: Nucleated RBC/100 WBC (Bld) [Ratio] 0 % 0-5 [facility] Work Phone: [phone] MCHC Auto (RBC) [Mass/Vol]on 01-04-2022 MCHC (RBC) [Mass/Vol] 32.2 g/dL 32-36 [facility] Work Phone: [phone] No Panel Informationon 01-04 Estimated Creatinine Clearance Calc 28.37 ml/min [facility] Work Phone: [phone] Estimated GFR (MDRD) Amer 36 mL/min >60 [facility] Work Phone: [phone] Comment on above: GFR Calc Estimated GFR (MDRD) Non-Af Amer 30 mL/min >60 [facility] Work Phone: [phone] Comment on above: Non- GFR Calc Platelets bldon 01-04-2022 Platelets (Bld) [#/Vol] 166 10*3/uL 150-450 [facility] Work Phone: [phone] Serum or plasma calcium baljeet urement (mass/volume)on 01-04-2022 Calcium [Mass/Vol] 8.5 mg/dL 8.5-10.1 [facility] Work Phone: [phone] Serum or plasma creatinine m easurement (mass/volume)on 01-04-2022 Creatinine [Mass/Vol] 2.23 mg/dL 0.70-1.30 [facility] Work Phone: Comment on above: The validity of the calculated GFR & GFRAA in patients over 70 years has not been determined. Clinical correlation is essential. Serum or plasma urea nitroge n measurement (mass/volume)on 01-04-2022 Urea nitrogen [Mass/Vol] 37 mg/dL 7-18 [facility] Work Phone: Thin prep Papanicolaou smear with manual screeningon 01-04-2022 Thin prep Papanicolaou smear with manual screening 6 5-15 [facility] Work Phone: Laboratory - Chemistry and C hemistry - challengeon 01-03-2022 Magnesium [Mass/Vol] 1.8 mg/dL 1.6-2.6 [facility] Work Phone: No Panel Informationon 01-03 Enteric Bacteriology [facility] Work Phone: Basophil percentageon 2021 Bilirubin [Mass/Vol] 0.60 mg/dL 0.20-1.00 [facility] Work Phone: Comment on above: For patients on eltr ombopag therapy, use of Dimension [facility] TBIL is not recommended. Cholesterol [Mass/Vol] 133 mg/dL <200 [facility] Work Phone: Comment on above: <200 mg/dL Desirable 200-240 mg/dL Borderline >240 mg/dL High Risk Protein [Mass/Vol] 6.7 g/dL 6.4-8.2 [facility] Work Phone: Triglyceride [Mass/Vol] 76 mg/dL <199 [facility] Work Phone: Comment on above: The drugs N-Acetylcy steine and Metamizole may falsely depress this assay.Serum Triglycerides Reference Interval Normal <150 mg/dL Borderline high 150 - 199 mg/dL High 200 - 499 mg/dL Very High > or = 500 mg/dL Blood manual differential co mment interpretation (narrative result)on 01-02-2022 Manual differential comment Reese (Bld) [Interp] SCANNED [facility] Work Phone: [phone] Laboratory - Chemistry and C hemistry - challengeon 01-02-2022 ALP [Catalytic activity/Vol] 88 U/L 45-117 [facility] Work Phone: [phone] ALT [Catalytic activity/Vol] 56 U/L 16-61 [facility] Work Phone: [phone] T4 [Mass/Vol] 1.19 ng/dL 0.76-1.46 [facility] Work Phone: [phone] Globulin (S) [Mass/Vol] 3.4 g/dL 2.2-4.2 [facility] Work Phone: [phone] No Panel Informationon 01-02 Thyroid Stimulating Hormone (TSH) 4.22 uIU/mL 0.358-3.74 [facility] Work Phone: [phone] Troponin I High Sensitivity 33 pg/mL 3.0-78.0 [facility] Work Phone: Comment on above: Please Note: New Mariajose t Units and Gender Specific Reference Ranges. For more information see Policy Stat Procedure [facility] High Sensitivity Troponin (TNIH) and attachments. Serum or plasma albumin baljeet urement (mass/volume)on 01-02-2022 Albumin [Mass/Vol] 3.3 g/dL 3.2-5.0 [facility] Work Phone: [phone] Serum or plasma albumin/glob ulin mass ratioon 01-02-2022 Albumin/Globulin [Mass ratio] 1.0 {ratio} 0.9-2.4 [facility] Work Phone: [phone] Serum or plasma cholesterol in HDL measurement (mass/volume)on 01-02-2022 Cholesterol in HDL [Mass/Vol] 76 mg/dL >40 [facility] Work Phone: [phone] Comment on above: The drugs N-Acetylcy steine and Metamizole may falsely depress this assay. Reference Range HDL <40 mg/dL Low HDL Cholesterol HDL >or= 60 mg/dL High HDL Cholesterol Serum or plasma cholesterol in VLDL measurement (mass/volume)on 01-02-2022 Cholesterol in VLDL [Mass/Vol] 15 mg/dL 5-40 [facility] Work Phone: Serum or plasma low density lipoprotein (LDL) cholesterol measurement (mass/volume)on 01-02-2022 Cholesterol in LDL [Mass/Vol] 42 mg/dL 0-130 [facility] Work Phone: Thin prep Papanicolaou smear with manual screeningon 01-02-2022 Thin prep Papanicolaou smear with manual screening 58 U/L 15-37 [facility] Work Phone: Absolute lymphocyte counton 01-01-2022 Lymphocytes Auto (Unsp spec) [#/Vol] 1.21 10*3/uL 0.83-4.51 [facility] Work Phone: Basophil percentageon 2021 Bilirubin [Mass/Vol] 0.40 mg/dL 0.20-1.00 [facility] Work Phone: Comment on above: For patients on eltr ombopag therapy, use of Dimension [facility] TBIL is not recommended. Chloride [Moles/Vol] 110 mmol/L 98-107 [facility] Work Phone: Glucose [Mass/Vol] 133 mg/dL 74-106 [facility] Work Phone: Comment on above: Fasting Glucose resu lt greater than or equal to 126 mg/dL suggests DIABETES MELLITUS per A.D.A. criteria. Potassium [Moles/Vol] 5.0 mmol/L 3.5-5.1 [facility] Work Phone: Comment on above: Moderate Hemolysis, Result may be falsely increased. Protein [Mass/Vol] 7.1 g/dL 6.4-8.2 [facility] Work Phone: Sodium [Moles/Vol] 142 mmol/L 136-145 [facility] Work Phone: Basophil percentage 0 SEEN /hpf 0-5 [facility] Work Phone: Basophils/100 WBC (Bld) 0.3 % 0-1 [facility] Work Phone: Eosinophils/100 WBC (Bld) 1.8 % 0-5 [facility] Work Phone: Neutrophils (Bld) [#/Vol] 8.7 10*3/uL 2.0-7.7 [facility] Work Phone: Neutrophils/100 WBC (Bld) 78.9 % 47-70 [facility] Work Phone: WBC (Bld) [#/Vol] 11.0 10*3/uL 4.4-11.0 [facility] Work Phone: Bilirubin Test strip Ql (U)o n 01-01-2022 Bilirubin Ql (U) Negative Negative [facility] Work Phone: Blood erythrocytes count (nu mber/volume)on 01-01-2022 RBC (Bld) [#/Vol] 3.98 10*6/uL 4.6-6.2 [facility] Work Phone: Blood hemoglobin measurement (mass/volume)on 01-01-2022 Hemoglobin (Bld) [Mass/Vol] 11.9 g/dL 13.0-16.5 [facility] Work Phone: Blood lymphocytes/100 leukoc yteson 01-01-2022 Lymphocytes/100 WBC (Bld) 11.0 % 19-41 [facility] Work Phone: Blood monocytes/100 leukocyt eson 01-01-2022 Monocytes/100 WBC (Bld) 7.6 % 0-10 [facility] Work Phone: Blood platelet mean volumeon 01-01-2022 Platelet mean volume (Bld) [Entitic vol] 10.2 fL 6.2-12.0 [facility] Work Phone: Determination of erythrocyte mean corpuscular volume (MCV)on 01-01-2022 MCV (RBC) [Entitic vol] 93.7 fL 80-94 [facility] Work Phone: Glucose Glucometer (BldC) [M ass/Vol]on 01-01-2022 Glucose [Mass/Vol] 143 mg/dL 74-106 [facility] Work Phone: Comment on above: MANAGEMENT OF PATIEN T CARE PER NURSING PROTOCOL Hematocrit Auto (Bld) [Volum e fraction]on 01-01-2022 Hematocrit (Bld) [Volume fraction] 37.3 % 40-54 [facility] Work Phone: Ketones Test strip Ql (U)on 01-01-2022 Ketones Ql (U) Negative Negative [facility] Work Phone: [phone] Laboratory - Chemistry and C hemistry - challengeon 01-01-2022 ALP [Catalytic activity/Vol] 83 U/L 45-117 [facility] Work Phone: [phone] ALT [Catalytic activity/Vol] 28 U/L 16-61 [facility] Work Phone: [phone] CO2 [Moles/Vol] 28.0 mmol/L 21.0-32.0 [facility] Work Phone: [phone] Globulin (S) [Mass/Vol] 3.6 g/dL 2.2-4.2 [facility] Work Phone: [phone] Magnesium [Mass/Vol] 1.7 mg/dL 1.6-2.6 [facility] Work Phone: [phone] Comment on above: Moderate Hemolysis, Result may be falsely increased. Urea nitrogen/Creatinine [Mass ratio] 17.9 mg/mg 10-20 [facility] Work Phone: [phone] Natriuretic peptide B (Bld) [Mass/Vol] 193.7 pg/mL 0-100 [facility] Work Phone: [phone] Laboratory - Hematology and Cell countson 01-01-2022 Erythrocyte distribution width (RBC) [Entitic vol] 49.3 fL 35.1-43.9 [facility] Work Phone: [phone] Erythrocyte distribution width (RBC) [Ratio] 14.6 % 11.6-14.6 [facility] Work Phone: [phone] Immature granulocytes/100 WBC (Bld) 0.400 % 0.0-0.9 [facility] Work Phone: Comment on above: IG% - Immature Granu locytes (promyelocytes, myelocytes and metamyelocytes) > 1% indicates that a LEFT SHIFT is Present. MCH (RBC) [Entitic mass] 29.9 pg 27.0-32.0 [facility] Work Phone: Nucleated RBC/100 WBC (Bld) [Ratio] 0 % 0-5 [facility] Work Phone: [phone] MCHC Auto (RBC) [Mass/Vol]on 01-01-2022 MCHC (RBC) [Mass/Vol] 31.9 g/dL 32-36 [facility] Work Phone: Mucus LM Ql (Urine sed)on Mucus Ql (Urine sed) 0 SEEN /hpf [facility] Work Phone: [phone] Nitrite Test strip Ql (U)on 01-01-2022 Nitrite Ql (U) Negative Negative [facility] Work Phone: No Panel Informationon 01-01 Estimated Creatinine Clearance Calc 43.10 ml/min [facility] Work Phone: Estimated GFR (MDRD) Amer 57 mL/min >60 [facility] Work Phone: Comment on above: GFR Calc Estimated GFR (MDRD) Non-Af Amer 47 mL/min >60 [facility] Work Phone: Comment on above: Non- GFR Calc Troponin I High Sensitivity 16 pg/mL 3.0-78.0 [facility] Work Phone: Comment on above: Please Note: New Mariajose t Units and Gender Specific Reference Ranges. For more information see Policy Stat Procedure [facility] High Sensitivity Troponin (TNIH) and attachments. Platelets bldon 01-01-2022 Platelets (Bld) [#/Vol] 199 10*3/uL 150-450 [facility] Work Phone: Protein Test strip Ql (U)on 01-01-2022 Protein Ql (U) 100 mg/dl Negative [facility] Work Phone: Serum or plasma albumin baljeet urement (mass/volume)on 01-01-2022 Albumin [Mass/Vol] 3.5 g/dL 3.2-5.0 [facility] Work Phone: [phone] Serum or plasma albumin/glob ulin mass ratioon 01-01-2022 Albumin/Globulin [Mass ratio] 1.0 {ratio} 0.9-2.4 [facility] Work Phone: [phone] Serum or plasma calcium baljeet urement (mass/volume)on 01-01-2022 Calcium [Mass/Vol] 8.7 mg/dL 8.5-10.1 [facility] Work Phone: [phone] Serum or plasma creatinine m easurement (mass/volume)on 01-01-2022 Creatinine [Mass/Vol] 1.51 mg/dL 0.70-1.30 [facility] Work Phone: Comment on above: The validity of the calculated GFR & GFRAA in patients over 70 years has not been determined. Clinical correlation is essential. Serum or plasma urea nitroge n measurement (mass/volume)on 01-01-2022 Urea nitrogen [Mass/Vol] 27 mg/dL 7-18 [facility] Work Phone: [phone] Squamous epithelial cells de tection in urine sediment by light microscopyon 01-01-2022 Epithelial cells.squamous LM Ql (Urine sed) 0 SEEN /hpf 0-5 [facility] Work Phone: [phone] Thin prep Papanicolaou smear with manual screeningon 01-01-2022 Thin prep Papanicolaou smear with manual screening 36 U/L 15-37 [facility] Work Phone: Comment on above: Moderate Hemolysis, Result may be falsely increased. Thin prep Papanicolaou smear with manual screening 4 5-15 [facility] Work Phone: [phone] Urine blood detectionon RBC Ql (U) 25 /ul Negative [facility] Work Phone: [phone] RBC Ql (U) 0 SEEN /hpf 0-5 [facility] Work Phone: [phone] Urine clarityon 01-01-2022 Clarity (U) Clear Clear [facility] Work Phone: Urine color determinationon 01-01-2022 Color (U) Yellow Yellow [facility] Work Phone: Urine glucose detectionon Glucose Ql (U) Normal mg/dl Normal [facility] Work Phone: Urine leukocyte esterase det ection by dipstickon 01-01-2022 Leukocyte esterase Test strip Ql (U) Negative Negative [facility] Work Phone: Urine pHon 01-01-2022 pH (U) 6.0 [pH] 5.0 - 8.0 [facility] Work Phone: Urine sediment bacteria coun t by microscopy (number/high power field)on 01-01-2022 Bacteria LM.HPF (Urine sed) [#/Area] 0 /[HPF] None Seen [facility] Work Phone: Urine specific gravity measu rementon 01-01-2022 Specific gravity (U) [Rel density] 1.010 1.002-1.03 0 [facility] Work Phone: Urobilinogen Auto test strip Ql (U)on 01-01-2022 Urobilinogen Ql (U) Normal mg/dl Normal [facility] Work Phone: CNOVon 11-22-2021 CNOV Office Visit (UROLMN ) RACHNA RECINOS ([id number]) 1940 M NFR Date Time Provider Department [...] Cancino MD, FACS Director, Surgical Stone Disease, [facility] Urologic [place] weaving professor, [facility] Pager [phone] 11/22/2021 Referring Provider: JAYY CANCINO [[id number]] Allergies As of Date: 11/22/2021 Noted Allergy [...] Z79.4] Renal cyst [N28.1] Chronic diarrhea [K52.9] Order(s): KIDNEY/BLADDER [[id number]] Order #: [id number] FUTURE XR ABDOMEN 3V KUB W/OBLIQUES [[id number]] Order #: [id number] FUTURE Prescriptions as of 11/22/2021 - mometasone [...] (FLONASE) 50 mcg/actuation nasal spray Use 1 [place] in each nostril once daily. - furosemide [...] (more content not included)... Normal [facility] URINALYSIS, REFLEX MICROSCOP ICon 11-22-2021 Bilirubin Ql (U) Negative Negative [facility] Clarity (Unsp spec) Clear Clear [facility] Color (U) Light Yellow Yellow [facility] Glucose Test strip (U) [Mass/Vol] Negative Negative [facility] Hemoglobin Ql (U) Negative Negative [facility] Ketones Ql (U) Negative Negative [facility] Leukocyte esterase Test strip Ql (U) Negative Negative [facility] Nitrite Ql (U) Negative Negative [facility] pH (U) 5.5 [pH] 5.0 - 8.0 [facility] Protein (U) [Mass/Vol] 1+ Abnormal Negative [facility] Specific gravity (U) [Rel density] 1.012 1.005 - 1.030 [facility] Urobilinogen Ql (U) Negative Negative [facility] Bilirubin Ql (U) Negative Normal Negative [facility] Comment on above: Order Comment: Speci men Type: URINE SPECIMEN Ordering Facility: [facility] Address: [address] [place], [place] [id number] Performed By: #### L [id number] #### [facility] CLIA [id number] [address] [place] [address] [place] Clarity (Unsp spec) Clear Normal Clear [facility] Comment on above: Order Comment: Speci men Type: URINE SPECIMEN Ordering Facility: [facility] Address: [address] [id number] Performed By: #### L [id number] #### [facility] CLIA [id number] [facility] [address] STATES OF [facility] Color (U) Light Yellow Normal Yellow [facility] Comment on above: Order Comment: Speci men Type: URINE SPECIMEN Ordering Facility: [facility] Address: [address] [place] [address] Performed By: #### L [id number] #### [facility] CLIA [id number] [address] [place] [address] [place] Glucose Test strip (U) [Mass/Vol] Negative Normal Negative [facility] Comment on above: Order Comment: Speci men Type: URINE SPECIMEN Ordering Facility: [facility] Address: [address] [place] [address] Performed By: #### L [id number] #### [facility] CLIA [id number] [address] [place] [address] [place] Hemoglobin Ql (U) Negative Normal Negative [facility] Comment on above: Order Comment: Speci men Type: URINE SPECIMEN Ordering Facility: [facility] Address: [address] [place] [address] Performed By: #### L [id number] #### [facility] CLIA [id number] [address] [place] [address] [place] Ketones Ql (U) Negative Normal Negative [facility] Comment on above: Order Comment: Speci men Type: URINE SPECIMEN Ordering Facility: [facility] Address: [address] [phone] Performed By: #### L [id number] #### [facility] CLIA [id number] [address] [place] Leukocyte esterase Test strip Ql (U) Negative Normal Negative [facility] Comment on above: Order Comment: Speci men Type: URINE SPECIMEN Ordering Facility: [facility] Address: [address] [place] [address] Performed By: #### L [id number] #### [facility] CLIA [id number] [address] [place] [address] [place] Nitrite Ql (U) Negative Normal Negative [facility] Comment on above: Order Comment: Speci men Type: URINE SPECIMEN Ordering Facility: [facility] Address: [address] [place] [address] Performed By: #### L [id number] #### [facility] CLIA [id number] [address] [place] [address] [place] pH (U) 5.5 [pH] Normal 5.0-8.0 [facility] Comment on above: Order Comment: Speci men Type: URINE SPECIMEN Ordering Facility: [facility] Address: [address] [place], [place] [address] Performed By: #### L [id number] #### [facility] CLIA [id number] [address] [place] [address] [place] Protein (U) [Mass/Vol] 1+ Abnormal Negative [facility] Comment on above: Order Comment: Speci men Type: URINE SPECIMEN Ordering Facility: [facility] Address: [address] [place], [place] [address] Performed By: #### L [id number] #### [facility] CLIA [id number] [address] [place] [address] [place] Specific gravity (U) [Rel density] 1.012 Normal 1.005-1.03 0 [facility] Comment on above: Order Comment: Speci men Type: URINE SPECIMEN Ordering Facility: [facility] Address: [address] [place], [place] [address] Performed By: #### L [id number] #### [facility] CLIA [id number] [address] [place] [address] [place] Urobilinogen Ql (U) Negative Normal Negative 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 Activities Assistant: ADONAY Transcribe Date/Time: Nov 18 2021 4:46P Dictated by : SONU KINGSTON DO This examination was interpreted and the report reviewed and electronically signed by: SONU KINGSOTN DO on Nov 18 2021 5:02PM EST [id number] Normal [facility] XR ABDOMEN 3V KUB W/OBLIQUES on 11-18-2021 [...] change in bilateral nephrolithiasis since multiple priors. Activities Assistant: ADONAY Transcribe Date/Time: Nov 18 2021 4:34P Dictated by : SONU KINGSTON DO This examination was interpreted and the report reviewed and electronically signed by: SONU KINGSTON DO on Nov 18 2021 4:46PM EST [id number] Normal [facility] CNOVon 12-14-2020 CNOV Office Visit (UROLMN ) SERENARACHNA TEMPLE ([id number]) 1940 M NFR Date Time Provider Department 12/14/20 10:30 AM JAYY CANCINO During your visit today, we recorded the following information about you: Pulse Blood pressure Weight Height 53/minute 168/67 96.3 kg 1.88 m Jayy Cnacino MD 12/14/2020 10:39 AM Signed .Followed for [...] F/U 1 yr with KUB/sono at f/u aJyy Cancino MD, FACS Director, Surgical Stone Disease, [facility] Urologic [place] weaving professor, [employer] [facility] [employer] Pager [phone] 12/14/2020 Referring Provider: SELF [[id number]] Allergies As [...] Date Reviewed: 12/14/2020 Reviewed by: Mariama Padgett ([facility]) KELSEA Sloan - Fully Assessed Primary Visit Diagnosis:Renal calculi [N20.0] Other Visit Diagnoses:Controlled type 2 diabetes mellitus with diabetic nephropathy, 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 Normal [facility] Urinalysison 12-14-2020 Bilirubin, Urine Negative Normal Negative Jordy owen [facility] Comment on above: Performed By: #### U A #### [facility] [address] [place], [place] [address] Clarity (U) Clear Normal Clear [facility] Comment on above: Performed By: #### U A #### [facility] [address] [place], [place] [address] Color (U) Yellow Normal Yellow [facility] Comment on above: Performed By: #### U A #### [facility] [address] [place], [place] [address] Comments SEE COMMENT Normal [facility] Comment on above: Result Comment: Micr oscopic not warranted Performed By: #### U A #### [facility] [address] [id number] Glucose Ql (U) Negative Normal Negative [facility] Comment on above: Performed By: #### U A #### [address] [address] [place] [address] Hemoglobin/Blood,Ur Negative Normal Negative [facility] Comment on above: Performed By: #### U A #### [address] [address] [place] [address] Ketones Ql (U) Negative Normal Negative [facility] Comment on above: Performed By: #### U A #### [address] [address] [place] [address] Leukest Negative Normal Negative [facility] Comment on above: Performed By: #### U A #### [address] [address] [place] [address] Nitrite Ql (U) Negative Normal Negative [facility] Comment on above: Performed By: #### U A #### [address] [place], [place] [address] pH (U) 5.5 [pH] Normal 5.0-8.0 [facility] Comment on above: Performed By: #### U A #### [address] [place], [place] [address] Protein, Urine 1+ Critically abnormal Negative [facility] Comment on above: Performed By: #### U A #### [address] [place], [place] [address] Specific Echo, Ur 1.021 Normal 1.005-1 .03 0 [facility] Comment on above: Performed By: #### U A #### [facility] [address] [place], [place] [address] Urine North Comment SEE COMMENT Normal [facility] Comment on above: Result Comment: N/A Performed By: #### U A #### [facility] [address] [place], [place] [address] Urobilinogen (U) [Mass/Vol] Negative Normal Negative [facility] Comment on above: Performed By: #### U A #### [facility] [address] [place], [place] [address] US KIDNEY/BLADDERon 12-11-19 21 US KIDNEY/BLADDER * [...] system 2. Simple cysts in each kidney Activities Assistant: ADONAY Transcribe Date/Time: Dec 10 2020 3:58P Dictated by : ROMERO NORTH, DO This examination was interpreted and the report reviewed and electronically signed by: ROMERO NORTH DO on Dec 10 2020 4:03PM EST [id number] Normal [facility] XR ABDOMEN 3V KUB W/OBLIQUES on 12-10-2020 [...] overlying the upper to mid left kidney Activities Assistant: [facility] Transcribe Date/Time: Dec 10 2020 3:42P Dictated by : GUMARO RENO MD This examination was interpreted and the report reviewed and electronically signed by: GUMARO RENO MD on Dec 10 2020 3:48PM EST [id number] Normal [facility] Clinical Summary: HMSPatient IDon 2018 SOP [facility] Work Phone: Clinical Summary: Scanned RO S Summaryon 2018 endocrine ROS Complains [facility] Work Phone: endocrine system, review of, comments Diabetes [facility] Work Phone: Gastrointestional review of systems, comment Hemorrhoids [facility] Work Phone: genitourinary review of systems, E&M Complains [facility] Work Phone: genitourinary system review of systems, comments Kidney Stones [facility] Work Phone: Lymphocytes #/vol (Bld) Denies [facility] Work Phone: ROS cardiovascular E&M Denies [facility] Work Phone: ROS ENT comment Impaired Hearing,Dentures [facility] Work Phone: ROS ENT E&M Complains [facility] Work Phone: ROS gastrointestinal E&M Complains [facility] Work Phone: ROS general E&M Denies [facility] Work Phone: ROS musculoskeletal E&M Denies [facility] Work Phone: ROS neurological E&M Denies [facility] Work Phone: ROS psychiatric E&M Denies [facility] Work Phone: ROS Pulmonary comment Sleep Apnea [facility] Work Phone: ROS pulmonary E&M Complains [facility] Work Phone: ROS skin E&M Denies [facility] Work Phone: Office Visit: Follow-up by jose reaves Rm: 7on 2018 NEGATED: Highlighted rowProtein mass conc Done [facility] Work Phone: Clinical Lists Update: Prelo ad Extendedon 10-01-2018 Tobacco smoking status NHIS Tobacco smoking status NHIS [facility] Work Phone: Clinical Summary: Scanned Hi story Summaryon 09-30-2018 Cholesterol mass conc A-FibAnemiaCHFCOPD Defibrill atorDiabetes - insulin dependentHeart diseaseHigh blood pressureHigh cholesterolHypertensionHype rthyroidismKidney diseaseMelanomaSleep apnea [facility] Work Phone: comments about allergies Enalapril, Levaquin, Zithromax, LatexTapeTetanus Shot 04/05/2018, P23 Flu Shot 05/21/2015, P23 Pneumonia 08/13/2015, Prevanar 13 06/27/2015 [facility] Work Phone: Data entered by patient exercise frequency 5 days per week [facility] Work Phone: Data entered by patient exercise type walking, other [facility] Work Phone: data entered by patient, alcohol (ethanol or ETOH) use No [facility] Work Phone: data entered by patient, drug (of abuse) use No [facility] Work Phone: data entered by patient, Employer Name retired [facility] Work Phone: data entered by patient, exercise history Yes [facility] Work Phone: Data entered by patient, history of past surgeries Abdominal SurgeryAppendectomyDefibril lator insertionGallbladder surgeryHand surgeryHeart cathKnee surgery otherProstrate surgeryTonsillectomy [facility] Work Phone: data entered by patient, mother's medical history Arthritis [facility] Work Phone: data entered by patient, social history, current smoker former smoker [facility] Work Phone: data entered by patient, social history, former smoker 1972 [facility] [facility] Work Phone: data entered by patient, social history, marital status [facility] Work Phone: Exercise vein comment Go to [facility] 3 to 5 days a week. [facility] Work Phone: father of patient is alive or [facility] Work Phone: father's medical history, comments Gangreenous Gall Bladder at 45 years old [facility] Work Phone: Housing Type: apartment, house, chcf, trailer, none house [facility] Work Phone: housing unit size (asthma environmental history, housing) (from single family to don't know) 1 floor [facility] Work Phone: medical history of patient's sister High blood pressure [facility] Work Phone: mother of patient is alive or [facility] Work Phone: Number of dependent children No [facility] Work Phone: Lab Report: CBC W/Diff, Auto matedon 07-04-2017 Absolute Neut 4.7 X10 3/UL Invalid Interpretation Code 2.0-7.7 [facility] Work Phone: [phone] Basophils/100 WBC Auto (Bld) 0.5 % Invalid Interpretation Code 0-1 [facility] Work Phone: [phone] Eosinophils/100 leukocytes 2.5 % Invalid Interpretation Code 0-5 [facility] Work Phone: [phone] Erythrocyte distribution width Auto Ratio (RBC) 15.0 % High 11.6-14.6 [facility] Work Phone: [phone] Erythrocytes (RBC) 4.10 10*6/uL Low 4.6-6.[address] [facility] Work Phone: [phone] Hematocrit (HCT) 37.7 % Low 40-54 [facility] Work Phone: [phone] Hemoglobin mass conc (Bld) 11.5 g/dL Low 13.0-16.5 [facility] Work Phone: [phone] Immature granulocytes/100 WBC (Bld) 0.200 % Invalid Interpretation Code 0.0-0.9 [facility] Work Phone: [phone] Lymphocytes 0.78 X10 3/UL Low 0.83-4.51 [facility] Work Phone: [phone] Lymphocytes/100 leukocytes 12.8 % Low 19-41 [facility] Work Phone: [phone] MCH 28.0 pg Invalid Interpretation Code 27.0-32.0 [facility] Work Phone: [phone] MCHC mass conc (RBC) 30.5 G/GL Low 32-[address] [facility] Work Phone: [phone] MCV 92.0 fL Invalid Interpretation Code 80-94 [facility] Work Phone: [phone] Monocytes/100 leukocytes 7.5 % Invalid Interpretation Code 0-10 [facility] Work Phone: [phone] Neutrophils/100 WBC Auto (Bld) 76.5 % High 47-70 [facility] Work Phone: [phone] Platelets 209 10*3/mm3 Invalid Interpretation Code 150-450 [facility] Work Phone: [phone] PMV by Patricia 9.8 fL Invalid Interpretation Code 6.2-12.0 [facility] Work Phone: [phone] RDW SD 49.4 fL High 35.1-43.9 [facility] Work Phone: [phone] WBC (Leukocytes) 6.1 10*3/uL Invalid Interpretation Code 4.4-11.0 [facility] Work Phone: [phone] Lab Report: T4 Total, Thyrox inon 07-04-2017 Thyroxine (T4) 14.3 ug/dL High 4.5-12.1 [facility] Work Phone: [phone]) Lab Report: Thyroid Stim Hor lucrecia (TSH)on 07-04-2017 Thyroid stimulating hormone (TSH) 8.48 u[iU]/mL High 0.358-3.74 [facility] Work Phone: [phone] Lab Report: Basic Metabolic Profile (BMP)on 06-08-2017 Anion gap 8 mmol/L Invalid Interpretation Code 5-15 [facility] Work Phone: [phone] BUN/Creatinine Ratio 15.1 RATIO Invalid Interpretation Code 10-20 [facility] Work Phone: [phone] Calcium 8.6 mg/dL Invalid Interpretation Code 8.5-10.1 [facility] Work Phone: [phone] Chloride 106 mmol/L Invalid Interpretation Code 98-107 [facility] Work Phone: [phone] CO2 25.0 mmol/L Invalid Interpretation Code 21.0-32.0 [facility] Work Phone: [phone] Creatinine 1.52 mg/dL High 0.70-1.30 [facility] Work Phone: [phone] eGFR (non-black) 57 mL/min/{1.73_m2} Low >60 [facility] Work Phone: [phone] eGFR (non-black) 47 mL/min/{1.73_m2} Low >60 [facility] Work Phone: [phone] Glucose mass conc 142 mg/dL High 70-110 [facility] Work Phone: [phone] Potassium molar conc 4.3 mmol/L Invalid Interpretation Code 3.5-5.1 [facility] Work Phone: [phone] Sodium 139 mmol/L Invalid Interpretation Code 136-145 [email or web address] Phone: [phone] Urea nitrogen 23 mg/dL High 7-18 [facility] Work Phone: [phone] Office Visit: [facility] 05-29-20 17 Fall risk assessment No Invalid Interpretation Code [facility] Work Phone: [phone] 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 Alanine aminotransferase (ALT) 19 U/L Invalid Interpretation Code [facility] Work Phone: [phone] Albumin 3.4 g/dL Invalid Interpretation Code [facility] Work Phone: [phone] Alkaline phosphatase (ALP) 94 U/L Invalid Interpretation Code [facility] Work Phone: [phone] Aspartate aminotransferase (AST) 13 U/L Low [facility] Work Phone: [phone] Bilirubin (total) 0.70 mg/dL Invalid Interpretation Code [facility] Work Phone: [phone] Globulin 3.5 g/dL Invalid Interpretation Code [facility] Work Phone: [phone] Protein 6.9 g/dL Invalid Interpretation Code [facility] Work Phone: [phone]) Office Visit: [facility] 05-18-20 17 Documentation of current medications (procedure) Done Invalid Interpretation Code [facility] Work Phone: [phone] Replaced Document: Ximena BERNABE Observationson 05-18-2017 EKG QRS axis 15 deg Invalid Interpretation Code [email or web address] Phone: [phone]) Interpretation Sinus Rhythm -First degree A-V block Luther = 241Low voltage in limb leads. -Intraventricular conduction defect -consider left ventricular hypertrophy. -Old anterior infarct. - Diffuse nonspecific T-abnormality. ABNORMAL Invalid Interpretation Code [email or web address] Phone: [phone] P [place] 49 deg Invalid Interpretation Code [facility] Work Phone: [phone] AK Interval 241 ms Invalid Interpretation Code [employer] Phone: [phone] Pulse (Heart Rate) 72 /min Invalid Interpretation Code [employer] Phone: [phone] QRS Duration 151 ms Invalid Interpretation Code [employer] Phone: [phone] QT Interval new path ms Invalid Interpretation Code [employer] Phone: [phone] QTc Quinonez 463 ms Invalid Interpretation Code [facility] Work Phone: [phone] T [place] 1 deg Invalid Interpretation Code [employer] Phone: [phone] Lab Report: Magnesiumon 01-25 Magnesium 0.8 mg/dL Critically low 1.8-2.4 [employer] Phone: [phone]) 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 12-22-2016 Left ventricular Ejection fraction 45 % Invalid Interpretation Code [employer] Phone: [phone] Chart Maintenanceon 12-01-19 17 Hemoglobin A1c/Hemoglobin.total mass fraction (Bld) 7.2 % High [facility] Work Phone: [phone] Office Visit: 3 mo f/u - Iro n deficiency anemia - PHQ9 Completeon 11-07-2016 Adolescent depression screening assessment Adolescent depression screening assessment Invalid Interpretation Code [facility] Work Phone: [phone] Adult depression screening assessment Adult depression screening assessment Invalid Interpretation Code [facility] Work Phone: [phone] Dietary management education, guidance, and counseling (procedure) yes Invalid Interpretation Code [facility] Work Phone: [phone] Tobacco smoking status NHIS Never Invalid Interpretation Code [facility] Work Phone: [phone] Tobacco use CPHS Former smoker Invalid Interpretation Code [facility] Work Phone: [phone] Lab Report: Erythropoietinon 11-01-2016 ERYTHROP [id number] 25.0 m[iU]/mL High 2.6-18.5 [facility] Work Phone: [phone] Lab Report: Comprehensive Me tabolic Profilon 10-30-2016 Albumin/Globulin Ratio 1.1 {ratio} Invalid Interpretation Code 0.9-2.4 [facility] Work Phone: [phone] Globulin 3.3 g/dL Invalid Interpretation Code 2.3-3.5 [facility] Work Phone: [phone]) Lab Report: Ferritinon 10-30 Ferritin 88 ng/mL Invalid Interpretation Code 26-388 [facility] Work Phone: [phone]) Lab Report: Iron+Iron Bindin g Capacityon 10-30-2016 Iron 59 ug/dL Low 65-175 [facility] Work Phone: [phone] iron binding capacity, total 300 ug/dL Invalid Interpretation Code 250-450 [facility] Work Phone: [phone] iron saturation percent, serum 19.7 % Invalid Interpretation Code 15.0-55.0 [facility] Work Phone: [phone] Lab Report: Retic Panelon Reticulocytes/100 erythrocytes 2.10 % High 0.5-1.5 [facility] Work Phone: [phone] Office Visit: 2 mo f/u (PASTOR) PHQ9 Completeon 06-08-2016 Adult depression screening assessment Adult depression screening assessment Invalid Interpretation Code [facility] Work Phone: [phone] Microbiology: Culture, Blood (WB)on 01-30-2016 Bacteria culture BCNo growth in 5 days. 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 01-27-2016 Bilirubin (direct) 0.16 mg/dL Invalid Interpretation Code [facility] Work Phone: [phone] Cholesterol 97 mg/dL Invalid Interpretation Code [facility] Work Phone: [phone] HDL Cholesterol 56 mg/dL Invalid Interpretation Code [facility] Work Phone: [phone] LDL Cholesterol 27 mg/dL Invalid Interpretation Code [facility] Work Phone: [phone] Triglyceride 68 mg/dL Invalid Interpretation Code [employer] Phone: [phone] very low density lipoproteins 14 mg/dL Invalid Interpretation Code [employer] Phone: [phone]) Lab Report: Haptoglobinon Haptoglobin 192 mg/dL Invalid Interpretation Code 34-200 [employer] Phone: [phone] Lab Report: PENNY + Protein El ect, Serumon 01-18-2016 Albumin 3.9 g/dL Invalid Interpretation Code 3.2-5.6 [employer] Phone: [phone] Alpha 2 globulin 0.7 g/dL Invalid Interpretation Code 0.4-1.2 [employer] Phone: [phone] APDCK-4-MUEB 0.2 g/dL Invalid Interpretation Code 0.1-0.4 [facility] Work Phone: [phone] BETA GLOBULIN 1.0 g/dL Invalid Interpretation Code 0.6-1.3 [facility] Work Phone: [phone] Gamma globulin 800 mg/dL Invalid Interpretation Code Units converted. See lab report for original value. [facility] Work Phone: [phone] PENNY RESULT,S Comment Invalid Interpretation Code . [facility] Work Phone: [phone] IgA 141 mg/dL Invalid Interpretation Code 61-437 [facility] Work Phone: [phone] IgG 807 mg/dL Invalid Interpretation Code 700-1600 [facility] Work Phone: [phone] IgM 89 mg/dL Invalid Interpretation Code 15-143 [facility] Work Phone: [phone] M-SPIKE . Invalid Interpretation Code [facility] Work Phone: [phone] NOTE: Comment Invalid Interpretation Code . [facility] Work Phone: [phone] Protein 6.7 g/dL Invalid Interpretation Code 6.0-8.5 [facility] Work Phone: [phone]) Lab Report: Protein Electro. Ur-Randomon 01-18-2016 Protein [Mass] in Urine collected for unspecified duration 33.8 mg/dL Invalid Interpretation Code Not Estab. [facility] Work Phone: [phone]) Lab Report: Folates, (Folic Acid)on 01-14-2016 Folate 50.10 ng/mL High 3.1-17.5 [email or web address] Phone: [phone]) Lab Report: LDHon 01-14-2016 LDH 197 U/L Invalid Interpretation Code 87-241 [facility] Work Phone: [phone]) Lab Report: Vitamin B12on Cobalamins (Vitamin B12) 642 pg/mL Invalid Interpretation Code 211-911 [facility] Work Phone: [phone] Lab Report: CRPon 01-10-2016 C reactive protein (CRP) 0.323 mg/dL High Units converted. See lab report for original value. [facility] Work Phone: [phone] Lab Report: Erythrocyte Sed Rateon 01-10-2016 Erythrocyte sedimentation rate 18 mm/h Invalid Interpretation Code 0-20 [facility] Work Phone: [phone]) Office Visit: df IV ce ftrix. 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 07-26-2015 Left ventricular Ejection fraction 35 % Invalid Interpretation Code [employer] Phone: [phone] Lab Report: BNP,B-Type NATRI URETIC PEPTIDEon 05-25-2015 BNP 85.3 pg/mL Invalid Interpretation Code 0-100 [facility] Work Phone: [phone] Lab Report: CBC W/Diff, Auto matedon 05-25-2015 Absolute Neut 6.1 X10 3/UL Invalid Interpretation Code 2.0-7.7 [facility] Work Phone: [phone] Office Visiton 10-06-2014 cardiac risk group C Invalid Interpretation Code [facility] Work Phone: [phone] General cardiovascular disease 10Y risk [#] [employer] N/A Invalid Interpretation Code [facility] Work Phone: [phone]) Lab Report: PTon 12-20-2013 INR Coag RelTime (PPP) 1.0 {INR} Normal [facility] Work Phone: [phone] PTP 12.1 SECONDS Normal 11.9-14.4 [facility] Work Phone: [phone]) Lab Report: UAon 12-20-2013 specific gravity, urine 1.015 Normal 1.002-1.03 0 [facility] Work Phone: [phone] Coumadin Management: Coumadi n Managementon 08-29-2013 Prothrombin time (PT) Coag time (PPP) 21.9 s Invalid Interpretation Code [facility] Work Phone: [phone] Replaced Document: [employer] E CG Observationson 10-22-2012 Pulse (Heart Rate) 481 ms Invalid Interpretation Code [facility] Work Phone: [phone]) Lab Report: T3UPon 2 tT3UP 35 % Normal 33-40 [facility] Work Phone: [phone] 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 11-08-2011 T3RU + T4 Total + Free Thyroxin Index 4.7 High [facility] Work Phone: [phone] triiodothyronine (t3) uptake, serum 35 % Invalid Interpretation Code [facility] Work Phone: [phone] No Panel Information Enteric Bacteriology [facility] Work Phone: Vital Signs Date Time Vital Sign Value Performing Clinician Facility 04-08-2025 10:06-0400 Body height 180.3 cm Estrellita Soto MD Work Phone: [facility] 04-08-2025 10:06-0400 Body mass index (BMI) [Ratio] 28.17 kg/m2 Estrellita Soto MD Work Phone: [facility] 04-08-2025 10:06-0400 Body weight 91.63 kg Estrellita Soto MD Work Phone: [facility] 04-08-2025 10:06-0400 Diastolic blood pressure 60 mm[Hg] Estrellita Soto MD Work Phone: [facility] 04-08-2025 10:06-0400 Heart rate 66 /min Estrellita Soto MD Work Phone: [facility] 04-08-2025 10:06-0400 Respiratory rate 18 /min Estrellita Soto MD Work Phone: [facility] 04-08-2025 10:06-0400 SaO2% (BldA) [Mass fraction] 94 % Estrellita Soto MD Work Phone: [facility] 04-08-2025 10:06-0400 Systolic blood pressure 120 mm[Hg] Estrellita Soto MD Work Phone: [facility] 01-21-2025 07:52-0400 Body height 187.96 cm Katherin Edge MD Work Phone: [facility] 01-21-2025 07:52-0400 Body mass index (BMI) [Ratio] 26.9 kg/m2 Katherin Edge MD Work Phone: [facility] 01-21-2025 07:52-0400 Body temperature 97.8 [degF] Katherin Edge MD Work Phone: [facility] 01-21-2025 07:52-0400 Body weight 95.25 kg Katherin Edge MD Work Phone: [facility] 01-21-2025 07:52-0400 Diastolic blood pressure 65 mm[Hg] Katherin Edge MD Work Phone: [facility] 01-21-2025 07:52-0400 Heart rate 75 /min Katherin Edge MD Work Phone: [facility] 01-21-2025 07:52-0400 Respiratory rate 16 /min Katherin Edge MD Work Phone: [facility] 01-21-2025 07:52-0400 SaO2% (BldA) [Mass fraction] 98 % Katherin Edge MD Work Phone: [facility] 01-21-2025 07:52-0400 Systolic blood pressure 130 mm[Hg] Katherin Edge MD Work Phone: [facility] 11-10-2024 08:24-0400 Heart rate 88 /min Katherin Edge MD Work Phone: 6(688)786-025559 [place] [address] 11-10-2024 08:24-0400 Respiratory rate 18 /min Katherin Edge MD Work Phone: [facility] 11-10-2024 08:24-0400 SaO2% (BldA) [Mass fraction] 94 % Katherin Edge MD Work Phone: [facility] 11-10-2024 07:27-0400 Diastolic blood pressure 72 mm[Hg] Katherin Edge MD Work Phone: [facility] 11-10-2024 07:27-0400 Systolic blood pressure 176 mm[Hg] Katherin Edge MD Work Phone: [facility] 11-10-2024 05:31-0400 Body height 187.96 cm Katherin Edge MD Work Phone: [facility] 11-10-2024 05:31-0400 Body mass index (BMI) [Ratio] 27.8 kg/m2 Katherin Edge MD Work Phone: [facility] 11-10-2024 05:31-0400 Body temperature 98.6 [degF] Katherin Edge MD Work Phone: [facility] 11-10-2024 05:31-0400 Body weight 98.6 kg Katherin Edge MD Work Phone: [facility] 09-17-2024 16:31-0500 Diastolic blood pressure 60 mm[Hg] Katherin Edge MD Work Phone: [facility] 09-17-2024 16:31-0500 Systolic blood pressure 140 mm[Hg] Katherin Edge MD Work Phone: [facility] 09-17-2024 14:13-0500 Body height 187.96 cm Katherin Edge MD Work Phone: [facility] 07-01-2024 14:04-0500 Body mass index (BMI) [Ratio] 26.9 kg/m2 Katherin Edge MD Work Phone: [facility] 07-01-2024 14:04-0500 Body temperature 97.7 [degF] Katherin Edge MD Work Phone: [facility] 07-01-2024 14:04-0500 Body weight 95.25 kg Katherin Edge MD Work Phone: [facility] 07-01-2024 14:04-0500 Heart rate 79 /min Katherin Edge MD Work Phone: [facility] 07-01-2024 14:04-0500 Respiratory rate 18 /min Katherin Edge MD Work Phone: [facility] 07-01-2024 14:04-0500 SaO2% (BldA) [Mass fraction] 96 % Katherin Edge MD Work Phone: [facility] 03-27-2024 09:24-0400 Body height 181 cm Estrellita Soto MD Work Phone: [facility] 03-27-2024 09:24-0400 Body mass index (BMI) [Ratio] 29.08 kg/m2 Estrellita Soto MD Work Phone: [facility] 03-27-2024 09:24-0400 Body weight 95.25 kg Estrellita Soto MD Work Phone: [facility] 03-27-2024 09:24-0400 Diastolic blood pressure 67 mm[Hg] Estrellita Soto MD Work Phone: [facility] 03-27-2024 09:24-0400 Heart rate 79 /min Estrellita Soto MD Work Phone: [facility] 03-27-2024 09:24-0400 Respiratory rate 16 /min Estrellita Soto MD Work Phone: [facility] 03-27-2024 09:24-0400 SaO2% (BldA) [Mass fraction] 98 % Estrellita Soto MD Work Phone: [facility] 03-27-2024 09:24-0400 Systolic blood pressure 126 mm[Hg] Estrellita Soto MD Work Phone: [facility] 12-25-2023 01:03-0400 Body temperature 98.4 [degF] Dr. Corin Hernandez Work Phone: [facility] 12-25-2023 01:03-0400 Diastolic blood pressure 56 mm[Hg] Dr. Corin Hernandez Work Phone: [facility] 12-25-2023 01:03-0400 Heart rate 72 /min Dr. Corin Hernandez Work Phone: [facility] 12-25-2023 01:03-0400 Respiratory rate 16 /min Dr. Corin Hernandez Work Phone: [facility] 12-25-2023 01:03-0400 SaO2% (BldA) [Mass fraction] 97 % Dr. Corin Hernandez Work Phone: [facility] 12-25-2023 01:03-0400 Systolic blood pressure 171 mm[Hg] Dr. Corin Hernandez Work Phone: [facility] 12-25-2023 00:57-0400 Body mass index (BMI) [Ratio] 27.3 kg/m2 Dr. Corin Hernandez Work Phone: [facility] 12-25-2023 00:57-0400 Body weight 96.[address] Corin Hernandez Work Phone: [facility] 12-25-2023 00:10-0400 Body height 187.[address] Corin Hernandez Work Phone: [facility] 07-05-2023 09:29-0500 Diastolic blood pressure 53 mm[Hg] Dr. Corin Hernandez Work Phone: [facility] 07-05-2023 09:29-0500 Heart rate 66 /min Dr. Corin Hernandez Work Phone: [facility] 07-05-2023 09:29-0500 Respiratory rate 18 /min Dr. Corin Hernandez Work Phone: [facility] 07-05-2023 09:29-0500 SaO2% (BldA) [Mass fraction] 96 % Dr. Corin Hernandez Work Phone: [facility] 07-05-2023 09:29-0500 Systolic blood pressure 151 mm[Hg] Dr. Corin Hernandez Work Phone: [facility] 06-08-2023 09:10-0400 Body height 187.[address] Corin Hernandez Work Phone: [facility] 06-08-2023 09:10-0400 Body mass index (BMI) [Ratio] 26.8 kg/m2 Dr. Corin Hernandez Work Phone: [facility] 06-08-2023 09:10-0400 Body weight 94.[address] Corin Hernandez Work Phone: [facility] 05-29-2023 08:45-0400 Body mass index (BMI) [Ratio] 26.6 kg/m2 Dr. Corin Hernandez Work Phone: [facility] 05-29-2023 08:45-0400 Body weight 93.[address] Corin Hernandez Work Phone: [facility] 05-29-2023 08:45-0400 Diastolic blood pressure 48 mm[Hg] Dr. Corin Hernandez Work Phone: [facility] 05-29-2023 08:45-0400 Heart rate 59 /min Dr. Corin Hernandez Work Phone: [facility] 05-29-2023 08:45-0400 Respiratory rate 18 /min Dr. Corin Hernandez Work Phone: [facility] 05-29-2023 08:45-0400 SaO2% (BldA) [Mass fraction] 98 % Dr. Corin Hernandez Work Phone: 1(577)304-557459 [place] [address] 05-29-2023 08:45-0400 Systolic blood pressure 125 mm[Hg] Dr. Corin Hernandez Work Phone: 1(132)969-700159 [place] [address] 05-23-2023 01:37-0400 Diastolic blood pressure 70 mm[Hg] Dr. Corin Hernandez Work Phone: 6(189)482-961359 [place] [address] 05-23-2023 01:37-0400 Heart rate 75 /min Dr. Corin Hernandez Work Phone: 2(528)083-581783 [address] 05-23-2023 01:37-0400 Respiratory rate 18 /min Dr. Corin Hernandez Work Phone: 7(945)423-694959 [place] [address] 05-23-2023 01:37-0400 SaO2% (BldA) [Mass fraction] 94 % Dr. Corin Hernandez Work Phone: [facility] 05-23-2023 01:37-0400 Systolic blood pressure 155 mm[Hg] Dr. Corin Hernandez Work Phone: 2(870)594-067259 [place] [address] 05-22-2023 22:37-0400 Body height 187.[address] Corin Hernandez Work Phone: 4(061)371-347659 [place] [address] 05-22-2023 22:37-0400 Body temperature 97.9 [degF] Dr. Corin Hernandez Work Phone: 0(611)984-538259 [place] [address] 05-20-2023 08:44-0400 Body height 187.[address] Corin Hernandez Work Phone: [facility] 05-20-2023 08:44-0400 Body mass index (BMI) [Ratio] 28.3 kg/m2 Dr. Corin Hernandez Work Phone: [facility] 05-20-2023 08:44-0400 Body temperature 98.4 [degF] Dr. Corin Hernandez Work Phone: 6(276)804-401083 [address] 05-20-2023 08:44-0400 Body weight 99.[address] Corin Hernandez Work Phone: 9(176)326-089323 [place] [address] 05-20-2023 08:44-0400 Diastolic blood pressure 82 mm[Hg] Dr. Corin Hernandez Work Phone: 0(043)294-789483 [address] 05-20-2023 08:44-0400 Heart rate 68 /min Dr. Corin Hernandez Work Phone: 4(571)672-911383 [address] 05-20-2023 08:44-0400 Respiratory rate 16 /min Dr. Corin Hernandez Work Phone: 2(106)151-383183 [address] 05-20-2023 08:44-0400 SaO2% (BldA) [Mass fraction] 97 % Dr. Corin Hernandez Work Phone: 4(801)019-381659 [place] [address] 05-20-2023 08:44-0400 Systolic blood pressure 138 mm[Hg] Dr. Corin Hernandez Work Phone: [facility] 03-08-2023 11:12-0400 Diastolic blood pressure 77 mm[Hg] Dr. Corin Hernandez Work Phone: 4(386)112-107559 [place] [address] 03-08-2023 11:12-0400 Heart rate 79 /min Dr. Corin Hernandez Work Phone: [facility] 03-08-2023 11:12-0400 Respiratory rate 15 /min Dr. Corin Hernandez Work Phone: [facility] 03-08-2023 11:12-0400 SaO2% (BldA) [Mass fraction] 98 % Dr. Corin Hernandez Work Phone: [facility] 03-08-2023 11:12-0400 Systolic blood pressure 112 mm[Hg] Dr. Corin Hernandez Work Phone: [facility] 03-08-2023 09:03-0400 Body height 187.[address] Corin Hernandez Work Phone: [facility] 03-08-2023 09:03-0400 Body mass index (BMI) [Ratio] 27.9 kg/m2 Dr. Corin Hernandez Work Phone: [facility] 03-08-2023 09:03-0400 Body temperature 98 [degF] Dr. Corin Hernandez Work Phone: [facility] 03-08-2023 09:03-0400 Body weight 98.[address] Corin Hernandez Work Phone: [facility] 11-28-2022 13:26-0400 Body height 187.[address] Corin Hernandez Work Phone: [facility] 11-28-2022 13:26-0400 Diastolic blood pressure 58 mm[Hg] Dr. Corni Hernandez Work Phone: [facility] 11-28-2022 13:26-0400 Systolic blood pressure 120 mm[Hg] Dr. Corin Hernandez Work Phone: [facility] 11-28-2022 13:21-0400 Body mass index (BMI) [Ratio] 3.3 kg/m2 Dr. Corin Hernandez Work Phone: [facility] 11-28-2022 13:21-0400 Body weight 11.[address] Corin Hernandez Work Phone: [facility] 11-28-2022 13:21-0400 Heart rate 62 /min Dr. Corin Hernandez Work Phone: [facility] 11-28-2022 13:21-0400 Respiratory rate 20 /min Dr. Corin Hernandez Work Phone: [facility] 11-28-2022 13:21-0400 SaO2% (BldA) [Mass fraction] 98 % Dr. Corin Hernandez Work Phone: [facility] 06-20-2022 10:14-0400 Body height 187.[address] Corin Hernandez Work Phone: [facility] 06-20-2022 10:14-0400 Diastolic blood pressure 70 mm[Hg] Dr. Corin Hernandez Work Phone: 8(470)[phone] [place] [address] 06-20-2022 10:14-0400 Systolic blood pressure 130 mm[Hg] Dr. Corin Hernandez Work Phone: 2(696)[phone] [place] [address] 06-20-2022 10:13-0400 Body mass index (BMI) [Ratio] 27.2 kg/m2 Dr. Corin Hernandez Work Phone: 1(435)524-751559 [place] [address] 06-20-2022 10:13-0400 Body weight 96.[address] Corin Hernandez Work Phone: 9(015)[phone] [place] [address] 06-20-2022 10:13-0400 Heart rate 55 /min Dr. Corin Hernandez Work Phone: [facility] 06-20-2022 10:13-0400 Respiratory rate 18 /min Dr. Corin Hernandez Work Phone: [facility] 06-20-2022 10:13-0400 SaO2% (BldA) [Mass fraction] 100 % Dr. Corin Hernandez Work Phone: [facility] 04-05-2022 13:13-0400 Heart rate 89 /min Dr. Corin Hernandez Work Phone: [facility] Work Phone: 04-05-2022 13:13-0400 Respiratory rate 96 /min Dr. Corin Hernandez Work Phone: [facility] Work Phone: 04-05-2022 13:05-0400 Body temperature 97.7 [degF] Dr. Corin Hernandez Work Phone: [facility] Work Phone: 04-05-2022 13:05-0400 Diastolic blood pressure 52 mm[Hg] Dr. Corin Hernandez Work Phone: [facility] Work Phone: 04-05-2022 13:05-0400 SaO2% (BldA) [Mass fraction] 97 % Dr. Corin Hernandez Work Phone: [facility] Work Phone: 04-05-2022 13:05-0400 Systolic blood pressure 129 mm[Hg] Dr. Corin Hernandez Work Phone: [facility] Work Phone: 04-05-2022 09:56-0400 Body mass index (BMI) [Ratio] 26.9 kg/m2 Dr. Corin Hernandez Work Phone: [facility] Work Phone: 04-02-2022 14:53-0400 Body height 187.[address] Corin Hernandez Work Phone: [facility] Work Phone: 04-02-2022 14:53-0400 Body weight 95.[address] Corin Hernandez Work Phone: [facility] Work Phone: 04-02-2022 10:38-0400 Body temperature 98.2 [degF] Dr. Corin Hernandez Work Phone: [facility] Work Phone: 04-02-2022 10:38-0400 Diastolic blood pressure 81 mm[Hg] Dr. Corin Hernandez Work Phone: [facility] Work Phone: 04-02-2022 10:38-0400 Heart rate 78 /min Dr. Corin Hernandez Work Phone: [facility] Work Phone: 04-02-2022 10:38-0400 Respiratory rate 17 /min Dr. Corin Hernandez Work Phone: [facility] Work Phone: 04-02-2022 10:38-0400 SaO2% (BldA) [Mass fraction] 98 % Dr. Corin Hernandez Work Phone: [facility] Work Phone: 04-02-2022 10:38-0400 Systolic blood pressure 167 mm[Hg] Dr. Corin Hernandez Work Phone: [facility] Work Phone: 04-02-2022 08:31-0400 Body height 187.[address] Corin Hernandez Work Phone: [facility] Work Phone: 04-02-2022 08:31-0400 Body mass index (BMI) [Ratio] 26.9 kg/m2 Dr. Corin Hernandez Work Phone: [facility] Work Phone: 04-02-2022 08:31-0400 Body weight 95.[address] Corin Hernandez Work Phone: [facility] Work Phone: 03-24-2022 12:53-0400 Body mass index (BMI) [Ratio] 27.2 kg/m2 Dr. Corin Hernandez Work Phone: [facility] Work Phone: 03-24-2022 12:53-0400 Body weight 96.[address] Corin Hernandez Work Phone: [facility] Work Phone: 03-24-2022 12:53-0400 Diastolic blood pressure 70 mm[Hg] Dr. Corin Hernandez Work Phone: [facility] Work Phone: 03-24-2022 12:53-0400 Heart rate 72 /min Dr. Corin Hernandez Work Phone: [facility] Work Phone: 03-24-2022 12:53-0400 Systolic blood pressure 110 mm[Hg] Dr. Corin Hernandez Work Phone: [facility] Work Phone: 03-06-2022 13:03-0400 Body height 187.[address] Corin Hernandez Work Phone: [facility] Work Phone: 03-06-2022 13:03-0400 Body mass index (BMI) [Ratio] 27.2 kg/m2 Dr. Corin Hernandez Work Phone: [facility] Work Phone: 03-06-2022 13:03-0400 Body weight 96.[address] Corin Hernandez Work Phone: [facility] Work Phone: 02-01-2022 10:48-0400 Body height 187.[address] Corin Hernandez Work Phone: [facility] Work Phone: 02-01-2022 10:48-0400 Body mass index (BMI) [Ratio] 27.3 kg/m2 Dr. Corin Hernandez Work Phone: [facility] Work Phone: 02-01-2022 10:48-0400 Body weight 96.[address] Corin Hernandez Work Phone: [facility] Work Phone: 02-01-2022 10:48-0400 Diastolic blood pressure 69 mm[Hg] Dr. Corin Hernandez Work Phone: [facility] Work Phone: 02-01-2022 10:48-0400 Heart rate 72 /min Dr. Corin Hernandez Work Phone: [facility] Work Phone: 02-01-2022 10:48-0400 Respiratory rate 18 /min Dr. Corin Hernandez Work Phone: [facility] Work Phone: 02-01-2022 10:48-0400 SaO2% (BldA) [Mass fraction] 96 % Dr. Corin Hernandez Work Phone: [facility] Work Phone: 02-01-2022 10:48-0400 Systolic blood pressure 135 mm[Hg] Dr. Corin Hernandez Work Phone: [facility] Work Phone: 01-24-2022 16:26-0400 Diastolic blood pressure 91 mm[Hg] Dr. Corin Hernandez Work Phone: [facility] Work Phone: 01-24-2022 16:26-0400 Heart rate 99 /min Dr. Corin Hernandez Work Phone: [facility] Work Phone: 01-24-2022 16:26-0400 Respiratory rate 16 /min Dr. Corin Hernandez Work Phone: [facility] Work Phone: 01-24-2022 16:26-0400 SaO2% (BldA) [Mass fraction] 98 % Dr. Corin Hernandez Work Phone: [facility] Work Phone: 01-24-2022 16:26-0400 Systolic blood pressure 131 mm[Hg] Dr. Corin Hernandez Work Phone: [facility] Work Phone: 01-24-2022 13:34-0400 Body height 187.[address] Corin Hernandez Work Phone: [facility] Work Phone: 01-24-2022 13:34-0400 Body mass index (BMI) [Ratio] 27.4 kg/m2 Dr. Corin Hernandez Work Phone: [facility] Work Phone: 01-24-2022 13:34-0400 Body temperature 97.5 [degF] Dr. Corin Hernandez Work Phone: [facility] Work Phone: 01-24-2022 13:34-0400 Body weight 97.[address] Corin Hernandez Work Phone: [facility] Work Phone: 01-19-2022 13:00-0400 Body mass index (BMI) [Ratio] 27.8 kg/m2 Dr. Corin Hernandez Work Phone: [facility] Work Phone: 01-19-2022 13:00-0400 Body weight 95.[address] Corin Hernandez Work Phone: [facility] Work Phone: 01-19-2022 13:00-0400 Diastolic blood pressure 47 mm[Hg] Dr. Corin Hernandez Work Phone: [facility] Work Phone: 01-19-2022 13:00-0400 Heart rate 76 /min Dr. Corin Hernandez Work Phone: [facility] Work Phone: 01-19-2022 13:00-0400 Respiratory rate 18 /min Dr. Corin Hernandez Work Phone: [facility] Work Phone: 01-19-2022 13:00-0400 SaO2% (BldA) [Mass fraction] 97 % Dr. Corin Hernandez Work Phone: [facility] Work Phone: 01-19-2022 13:00-0400 Systolic blood pressure 105 mm[Hg] Dr. Corin Hernandez Work Phone: [facility] Work Phone: 01-04-2022 11:17-0400 Inhaled oxygen flow rate 0 L/min Dr. Corin Hernandez Work Phone: [facility] Work Phone: 01-04-2022 11:17-0400 SaO2% (BldA) [Mass fraction] 95 % Dr. Corin Hernandez Work Phone: [facility] Work Phone: 01-04-2022 10:00-0400 Body temperature 97.9 [degF] Dr. Corin Hernandez Work Phone: [facility] Work Phone: 01-04-2022 10:00-0400 Diastolic blood pressure 56 mm[Hg] Dr. Corin Hernandez Work Phone: [facility] Work Phone: 01-04-2022 10:00-0400 Heart rate 83 /min Dr. Corin Hernandez Work Phone: [facility] Work Phone: 01-04-2022 10:00-0400 Respiratory rate 16 /min Dr. Corin Hernandez Work Phone: [facility] Work Phone: 01-04-2022 10:00-0400 Systolic blood pressure 126 mm[Hg] Dr. Corin Hernandez Work Phone: [facility] Work Phone: 01-04-2022 06:00-0400 Body weight 96.[address] Corin Hernandez Work Phone: [facility] Work Phone: 01-04-2022 05:05-0400 Inhaled oxygen concentration 30 % Dr. Corin Hernandez Work Phone: [facility] Work Phone: 01-02-2022 13:05-0400 Body height 185.[address] Corin Hernandez Work Phone: [facility] Work Phone: 01-01-2022 22:16-0400 Body mass index (BMI) [Ratio] 27.4 kg/m2 Dr. Corin Hernandez Work Phone: [facility] Work Phone: 01-01-2022 21:46-0400 Body temperature 97.7 [degF] Dr. Corin Hernandez Work Phone: [facility] Work Phone: 01-01-2022 21:46-0400 Diastolic blood pressure 92 mm[Hg] Dr. Corin Hernandez Work Phone: [facility] Work Phone: 01-01-2022 21:46-0400 Heart rate 99 /min Dr. Corin Hernandez Work Phone: [facility] Work Phone: 01-01-2022 21:46-0400 Respiratory rate 16 /min Dr. Corin Hernandez Work Phone: [facility] Work Phone: 01-01-2022 21:46-0400 SaO2% (BldA) [Mass fraction] 97 % Dr. Corin Hernandez Work Phone: [facility] Work Phone: 01-01-2022 21:46-0400 Systolic blood pressure 168 mm[Hg] Dr. Corin Hernandez Work Phone: [facility] Work Phone: 01-01-2022 16:31-0400 Body height 187.[address] Corin Hernandez Work Phone: [facility] Work Phone: 01-01-2022 16:31-0400 Body mass index (BMI) [Ratio] 26.9 kg/m2 Dr. Corin Hernandez Work Phone: [facility] Work Phone: 01-01-2022 16:31-0400 Body weight 95.[address] Corin Hernandez Work Phone: [facility] Work Phone: 11-22-2021 10:28-0400 Body height 188 cm Jayy Cancino MD Work Phone: [facility] 11-22-2021 10:28-0400 Body weight 99.11 kg Jayy Cancino MD Work Phone: [facility] 11-22-2021 10:28-0400 Diastolic blood pressure 72 mm[Hg] Jayy Cancino MD Work Phone: [facility] 11-22-2021 10:28-0400 Heart rate 65 /min Jayy Cancino MD Work Phone: [facility] 11-22-2021 10:28-0400 Systolic blood pressure 150 mm[Hg] Jayy Cancino MD Work Phone: [facility] 09-23-2021 12:04-0500 Body mass index (BMI) [Ratio] 27.7 kg/m2 Dr. Corin Hernandez Work Phone: [facility] Work Phone: 09-23-2021 12:04-0500 Body weight 97.[address] Corin Hernandez Work Phone: [facility] Work Phone: 09-23-2021 12:04-0500 Diastolic blood pressure 74 mm[Hg] Dr. Corin Hernandez Work Phone: [facility] Work Phone: 09-23-2021 12:04-0500 Heart rate 84 /min Dr. Corin Hernandez Work Phone: [facility] Work Phone: 09-23-2021 12:04-0500 Respiratory rate 18 /min Dr. Corin Hernandez Work Phone: [facility] Work Phone: 09-23-2021 12:04-0500 SaO2% (BldA) [Mass fraction] 96 % Dr. Corin Hernandez Work Phone: [facility] Work Phone: 09-23-2021 12:04-0500 Systolic blood pressure 143 mm[Hg] Dr. Corin Hernandez Work Phone: [facility] Work Phone: 05-29-2017 09:46-0400 BMI (Body Mass Index) 26.32 kg/m2 Bhavna Chiang PA-C [facility] Work Phone: 05-29-2017 09:46-0400 BP Diastolic 48 mm[Hg] Bhavna Chiang PA-C [facility] Work Phone: 05-29-2017 09:46-0400 BP Systolic 110 mm[Hg] Bhavna Chiang PA-C [facility] Work Phone: 05-29-2017 09:46-0400 Height 187.96 cm Bhavna Chiang PA-C [facility] Work Phone: 05-29-2017 09:46-0400 Pulse (Heart Rate) 68 /min Bhavna Chiang PA-C [facility] Work Phone: 05-29-2017 09:46-0400 Respiratory Rate 18 /min Bhavna Chiang PA-C [facility] Work Phone: 05-29-2017 09:46-0400 Weight 92.99 kg Bhavna Chiang PA-C [facility] Work Phone: 05-18-2017 15:00-0400 Body Temperature 97.6 [degF] Bhavna Chiang PA-C [facility] Work Phone: 02-12-2017 13:00-0400 BP Diastolic 50 mm[Hg] Bhavna Chiang PA-C [facility] Work Phone: 02-12-2017 13:00-0400 BP Systolic 130 mm[Hg] Bhavna Chiang PA-C [facility] Work Phone: 11-07-2016 09:29-0400 BSA (Body Surface Area) 2.22 m2 Bhavna Chiang PA-C [facility] Work Phone: 08-10-2016 10:13-0500 Height 187.96 cm Bhavna Chiang PA-C [facility] Work Phone: 08-10-2016 10:13-0500 Weight 94 kg Bhavna Chiang PA-C [facility] Work Phone: 01-21-2016 09:39-0400 Body Temperature 97.59 [degF] Bhavna Chiang PA-C [facility] Work Phone: NEGATED: Highlighted [id number] 10:24-0500 BMI (Body Mass Index) 30.63 kg/m2 Autumn Santosh [employer] [facility] Work Phone: NEGATED: Highlighted [id number] 10:24-0500 BP Diastolic 74 mm[Hg] Autumn Santosh [employer] [facility] Work Phone: NEGATED: Highlighted [id number] 10:24-0500 BP Systolic 129 mm[Hg] Autumn Santosh [employer] [facility] Work Phone: NEGATED: Highlighted [id number] 10:24-0500 Height 182.88 cm Autumn Santosh [employer] [facility] Work Phone: NEGATED: Highlighted [id number] 10:24-0500 Height 183 cm Autumn Santosh [employer] [facility] Work Phone: NEGATED: Highlighted [id number] 10:24-0500 Pulse (Heart Rate) 54 /min Autumn Estradadev [employer] EXP[employer]ER [facility] Work Phone: NEGATED: Highlighted [id number] 10:24-0500 Weight 102.06 kg Autumn Frost LPN [facility] Work Phone: NEGATED: Highlighted [id number] 10:24-0500 Weight 102 kg Autumn Frost LPN [facility] Work Phone: Encounters Encounter Date Encounter Type Care Provider Facility Start: 05-20-2025 ambulatory Katherin Edge Facility:[facility] [place] Start: 05-06-2025 End: 05-06-2025 ambulatory Katherin Edge MD Work Phone: -[facility] Start: 05-06-2025 End: 05-06-[address] Bunny Verdin MD -[facility] Work Phone: Start: 04-28-2025 End: 04-28-2025 ambulatory Katherin Edge MD Work Phone: -Laboratory Start: 04-28-2025 End: 04-28-[address] Michelle Mcfarlane MD -Laboratory Work Phone: Start: 04-28-2025 End: 04-28-2025 ambulatory Chalon Christie Facility:[facility] Start: 04-22-2025 End: 04-22-2025 ambulatory Katherin Edge MD Work Phone: -[facility] Start: 04-22-2025 End: 04-22-[address] Bunny Verdin MD -[facility] Work Phone: Start: 04-21-2025 End: 04-21-2025 ambulatory Katherin Edge MD Work Phone: -Laboratory [facility] [place] Start: 04-21-2025 End: 04-21-[address] Katherin Edge MD -Laboratory [facility] [place] Start: 04-21-2025 End: 04-21-2025 ambulatory Chalon Christie Facility:[facility] Start: 04-08-2025 End: 04-08-2025 Office outpatient visit 25 minutes Estrellita Soto MD Work Phone: [facility] Cardiology [place] Comment on above: Ischemic cardiomyopa thy (Primary Dx); 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ailure (HCC); Atherosclerosis of [place] coronary artery of [place] heart without angina pectoris; History of sudden cardiac arrest successfully resuscitated; Presence of implantable cardioverter-defibrillator (ICD); Persistent atrial fibrillation (HCC); At risk for stroke; At risk for bleeding associated with anticoagulants; Anticoagulant long-term use; Complete left bundle branch block (LBBB) Start: 04-08-2025 End: 04-08-2025 ambulatory CHALON CHRISTIE Facility:[facility] Start: 02-25-2025 End: 02-25-2025 ambulatory Katherin Edge MD Work Phone: -Laboratory Start: 02-25-2025 End: 02-25-[address] Shu Gotti MD -Laboratory Work Phone: Start: 02-25-2025 End: 02-25-2025 ambulatory Chalalanna Edge Facility:[facility] Start: 02-04-2025 End: 02-04-2025 ambulatory Katherin Edge MD Work Phone: [facility] Work Phone: Start: 02-04-2025 End: 02-04-[address] Bunny Verdin MD -[facility] Work Phone: Start: 01-21-2025 End: 01-21-[address] Douglas Livingstno MD -[facility] Work Phone: Start: 01-21-2025 End: 01-21-2025 ambulatory Katherin Edge MD Work Phone: [facility] Work Phone: Start: 12-15-2024 Non-patient / Non-visit Dr. Jose Carlos gomes MD -[facility] Start: 12-15-2024 End: 12-15-2024 ambulatory Katherin Edge MD Work Phone: [facility] Work Phone: Start: 12-15-2024 End: 12-15-[address] Katherin Edge MD -Cardiovascular Services Work Phone: Start: 12-15-2024 End: 12-15-2024 ambulatory Katherin Edge Facility:[facility] Start: 12-01-2024 End: 12-01-2024 ambulatory Katherin Edge MD Work Phone: [facility] Work Phone: Start: 12-01-2024 End: 12-01-2024 Patient encounter procedure Kimmy Sanchez NEW PRODUCT TRAINER-C -Laboratory Work Phone: Start: 12-01-2024 End: 12-01-2024 ambulatory Katherin Christie Facility:[facility] Start: 11-26-2024 End: 11-26-2024 Patient encounter procedure Edward Rosado NEW PRODUCT TRAINER-C -Laboratory Work Phone: Start: 11-26-2024 End: 11-26-2024 ambulatory Edward Rosado NEW PRODUCT TRAINER Facility:[facility] Start: 11-23-2024 ambulatory Katherin Edge Facility:[facility] Start: 11-19-2024 End: 11-19-2024 ambulatory Katherin Edge MD Work Phone: [facility] Work Phone: Start: 11-19-2024 End: 11-19-[address] Katherin Edge MD -Radiology, [place] Work Phone: Start: 11-19-2024 End: 11-19-2024 ambulatory Katherin Edge Facility:[facility] Start: 11-10-2024 End: 11-10-2024 Emergency department patient visit Katherin Edge MD Work Phone: -Emergency Department Work Phone: Start: 11-05-2024 End: 11-05-2024 ambulatory Katherin Edge Facility:[facility] Start: 11-05-2024 End: 11-05-[address] Bunny Verdin MD -[facility] Work Phone: Start: 10-28-2024 End: 10-28-2024 ambulatory Katherin Edge MD Work Phone: [facility] Work Phone: Start: 10-28-2024 End: 10-28-[address] Shu Gotti MD -Laboratory Work Phone: Start: 10-27-2024 End: 10-28-2024 ambulatory Katherin Edge MD Work Phone: [facility] Work Phone: Start: 10-27-2024 End: 10-27-[address] Michelle Mcfarlane MD -Laboratory Work Phone: Start: 10-27-2024 End: 10-27-2024 ambulatory Michelle Mcfarlane Facility:[facility] Start: 09-17-2024 End: 09-17-2024 Patient encounter procedure Bhavna Chiang PA -[facility] Work Phone: Start: 09-17-2024 End: 09-17-2024 ambulatory Chalon Christie Facility:[facility] Start: 09-16-2024 ambulatory Marj Marcial NP Facility :[facility] Start: 09-02-2024 End: 09-02-[address] Katherin Edge MD -Laboratory, [facility] Start: 09-02-2024 End: 09-02-2024 ambulatory Chalon Christie Facility:[facility] Start: 08-01-2024 End: 08-01-2024 ambulatory Chalon Christie Facility:[facility] Start: 08-01-2024 End: 08-01-[address] Bunny Verdin MD -[facility] Work Phone: Start: 07-01-2024 End: 07-01-2024 ambulatory Katherin Edge Facility:[facility] Start: 06-17-2024 End: 06-17-2024 ambulatory Shu Gotti Facility:[facility] Start: 06-09-2024 End: 06-09-2024 ambulatory Katherin Edge Facility:[facility] Start: 03-27-2024 End: 03-27-2024 Office outpatient visit 25 minutes Estrellita Soto MD Work Phone: [facility] Cardiology [place] Comment on above: Ischemic cardiomyopa thy (Primary Dx); 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ailure (HCC); History of sudden cardiac arrest successfully resuscitated; Presence of implantable cardioverter-defibrillator (ICD); Complete left bundle branch block (LBBB); Persistent atrial fibrillation (HCC); At risk for stroke; At risk for bleeding associated with anticoagulants Start: 12-25-2023 End: 12-25-2023 Emergency department patient visit Dr. Corin Hernandez Work Phone: [facility]-Emergency Department Work Phone: Start: 12-18-2023 End: 12-18-[address] Corin Hernandez Work Phone: [facility] Work Phone: Start: 12-18-2023 End: 12-18-[address] Corin Hernandez Work Phone: [facility]-Laboratory Work Phone: Start: 12-13-2023 End: 12-13-[address] Corin Hernandez Work Phone: [facility] Work Phone: Start: 12-13-2023 End: 12-13-[address] Corin Hernandez Work Phone: [facility]-Laboratory Work Phone: Start: 10-27-2023 End: 10-27-[address] Corin Hernandez Work Phone: [facility] Work Phone: Start: 10-27-2023 End: 10-27-[address] Corin Hernandez Work Phone: [facility]-Laboratory Work Phone: Start: 10-25-2023 End: 10-25-[address] Corin Hernandez Work Phone: [facility] Work Phone: Start: 09-11-2023 End: 09-11-[address] Corin Hernandez Work Phone: [facility] Work Phone: Start: 09-11-2023 End: 09-11-[address] Corin Hernandez Work Phone: [facility]-Physical Therapy Work Phone: Start: 08-31-[address] Corin montiel Work Phone: [facility]-Physical Therapy Work Phone: Start: 08-29-2023 End: 08-29-[address] Corin Hernandez Work Phone: [facility] Work Phone: Start: 08-29-2023 End: 08-29-[address] Corin Hernandez Work Phone: [facility] Work Phone: Start: 08-29-2023 End: 08-29-[address] [facility] Start: 07-11-2023 End: 07-11-[address] Corin Hernandez Work Phone: [facility] Work Phone: Start: 07-05-2023 End: 07-05-[address] Corin Hernandez Work Phone: [facility] Work Phone: Start: 07-05-2023 End: 07-05-[address] Corin Hernandez Work Phone: [facility] Work Phone: Start: 07-05-2023 End: 07-05-[address] Corin Hernandez Work Phone: [facility] Work Phone: Start: 06-27-2023 End: 06-27-[address] Corin Hernandez Work Phone: [facility] Work Phone: Start: 06-08-2023 End: 06-08-[address] Corin Hernandez Work Phone: [facility] Work Phone: Start: 05-29-2023 End: 05-29-[address] Corin Hernandez Work Phone: [facility] Work Phone: Start: 05-22-2023 End: 05-23-2023 Emergency department patient visit Dr. Corin Hernandez Work Phone: [facility]-Emergency Department Work Phone: Start: 05-21-2023 End: 05-21-[address] Corin Hernandez Work Phone: [facility] Work Phone: Start: 05-21-2023 End: 05-21-[address] Corin Hernandez Work Phone: [facility]-Radiology, [place] Work Phone: Start: 05-20-2023 End: 05-20-[address] Corin Hernandez Work Phone: [facility]-Laboratory, Spec[place] Work Phone: Start: 05-20-2023 End: 05-20-[address] Corin Hernandez Work Phone: [facility] Work Phone: Start: 05-15-2023 End: 05-15-[address] Corin Hernandez Work Phone: [facility] Work Phone: Start: 05-15-2023 End: 05-16-[address] [facility] Start: 05-01-2023 End: 05-01-2023 ambulatory [facility] Work Phone: Start: 05-01-2023 End: 05-01-2023 Patient encounter procedure [facility] Work Phone: Start: 04-23-2023 End: 04-23-2023 ambulatory [facility] Work Phone: Start: 04-23-2023 End: 04-23-2023 Patient encounter procedure [facility] Work Phone: Start: 04-11-2023 End: 04-11-2023 ambulatory [facility] Work Phone: Start: 04-11-2023 End: 04-11-2023 Patient encounter procedure [facility] Work Phone: Start: 03-27-2023 End: 03-27-[address] Corin Hernandez Work Phone: [facility] Work Phone: Start: 03-27-2023 End: 03-27-[address] [facility] Start: 03-08-2023 End: 03-08-2023 Emergency department patient visit Dr. Corin Hernandez Work Phone: [facility]-Emergency Department Work Phone: Start: 03-02-2023 End: 03-02-[address] Corin Hernandez Work Phone: [facility] Work Phone: Start: 03-02-2023 End: 03-02-[address] Corin Hernandez Work Phone: [facility] Work Phone: Start: 02-07-2023 End: 02-07-[address] Corin Hernandez Work Phone: [facility] Work Phone: Start: 02-07-2023 End: 02-07-[address] Corin Hernandez Work Phone: [facility] Start: 01-30-[address] Corin cash Work Phone: [facility]Cardiov[facility] Services Start: 01-08-2023 End: 01-08-[address] Corin Hernandez Work Phone: [facility] Start: 12-13-2022 End: 12-13-[address] Corin Hernandez Work Phone: [facility] Start: 11-29-2022 End: 11-29-[address] Corin Hernandez Work Phone: [facility] Start: 11-28-2022 End: 11-28-[address] Corin Hernandez Work Phone: [facility] Start: 09-14-2022 End: 09-14-[address] Corin Hernandez Work Phone: [facility] Work Phone: Start: 09-14-2022 End: 09-14-[address] Corin Hernandez Work Phone: [facility] Start: 09-09-2022 End: 09-09-[address] Corin Hernandez Work Phone: [facility] Work Phone: Start: 09-09-2022 End: 09-09-[address] Corin Hernandez Work Phone: [facility] Start: 09-06-2022 End: 09-06-[address] Corin Hernandez Work Phone: [facility] Start: 06-21-2022 End: 06-21-[address] Corin Hernandez Work Phone: [facility] Start: 06-20-2022 End: 06-20-[address] Corin Hernandez Work Phone: [facility] Start: 06-05-2022 End: 06-05-[address] Corin Hernandez Work Phone: [facility] Work Phone: Start: 06-05-2022 End: 06-05-[address] Corin Hernandez Work Phone: [facility] Start: 05-10-2022 End: 05-10-[address] Corin Hernandez Work Phone: [facility] Start: 04-05-2022 End: 04-05-[address] Corin Hernandez Work Phone: [facility] Start: 04-05-2022 Non-patient / Non-visit Dr. Shayy Hernandez Work Phone: [facility] Start: 04-04-2022 Non-patient / Non-visit Dr. Shayy Hernandez Work Phone: [facility] Start: 04-03-2022 Non-patient / Non-visit Dr. Shayy Hernandez Work Phone: [facility] Start: 04-02-2022 Non-patient / Non-visit Dr. Shayy Hernandez Work Phone: [facility] Start: 04-02-2022 End: 04-05-2022 Evaluation and management of inpatient Dr. Corin Hernandez Work Phone: [facility]Progressive Care Unit Start: 03-24-2022 End: 03-24-[address] Corin Hernandez Work Phone: [facility] Start: 03-24-2022 End: 03-24-2022 ambulatory Nurse Pob Work Phone: [facility] [place] Comment on above: Visit for wound chec k (Primary Dx) Start: 03-24-2022 End: 03-24-2022 Telemedicine consultation with patient Nurse Card [facility] [place] Pob Work Phone: [facility] Start: 03-23-2022 End: 03-23-[address] Corin Hernandez Work Phone: [facility] Start: 03-17-2022 Telephone encounter Estrellita briseno MD Work Phone: [facility] Comment on above: Wound Check Start: 03-13-2022 Telephone encounter Estrellita briseno MD Work Phone: [facility] [place] Comment on above: Preparations For Pro cedures Start: 03-09-2022 End: 03-09-[address] Corin Hernandez Work Phone: [facility] Start: 03-06-2022 End: 03-06-[address] Corin Hernandez Work Phone: [facility] Start: 03-01-2022 End: 03-01-[address] [facility] Hernandez [facility] Start: 02-13-2022 End: 02-13-[address] [facility] Start: 02-01-2022 End: 02-01-[address] Corin Hernandez Work Phone: [facility] Start: 01-30-2022 End: 01-30-[address] Corin Hernandez Work Phone: [facility] Start: 01-24-2022 End: 01-24-2022 Emergency department patient visit Dr. Corin Hernandez Work Phone: [facility]Emergency Department Start: 01-19-2022 End: 01-19-[address] Corin Hernandez Work Phone: [facility] Start: 01-09-2022 End: 01-09-[address] Corin Hernandez Work Phone: [facility] [place] Start: 01-04-2022 Non-patient / Non-visit Dr. Shayy Hernandez Work Phone: [facility] Start: 01-03-2022 Non-patient / Non-visit Dr. Shayy Hernandez Work Phone: [facility] Start: 01-02-2022 Non-patient / Non-visit Dr. Shayy Hernandez Work Phone: [facility] Start: 01-01-2022 End: 01-04-2022 Evaluation and management of inpatient Dr. Corin Hernandez Work Phone: [facility] Start: 01-01-2022 Non-patient / Non-visit Dr. Shayy Hernandez Work Phone: [facility] Start: 11-22-2021 ambulatory Jayy Cancino MD Work Phone: Urology Start: 11-22-2021 End: 11-22-2021 Patient encounter procedure Jayy Cancino MD Work Phone: Urology Comment on above: Renal calculi (Prima ry Dx); Controlled type 2 diabetes mellitus with diabetic nephropathy, with long-term current use of insulin (HCC); Renal cyst; Chronic diarrhea Start: 11-18-2021 End: 11-18-2021 Subsequent hospital visit by physician [facility] Work Phone: Radiology Comment on above: Renal calculi [N20.0 ] Start: 11-16-2021 End: 11-16-[address] Corin Hernandez Work Phone: [facility] Start: 09-23-2021 End: 09-23-[address] Corin Hernandez Work Phone: [facility] Start: 01-13-2019 Patient encounter procedure EM SUAREZ Facility:[facility] Start: 2018 End: 2018 Patient encounter procedure Liam Heath MD Work Phone: [facility] Work Phone: Start: 01-23-2018 End: 01-23-2018 Patient encounter procedure ESTRELLITA SOTO Facility:[facility] Procedures Date Procedure Procedure Detail Performing Clinician Start: 04-21-2025 Total iron binding capacity measurement Katherin Edge MD Work Phone: Start: 04-21-2025 Vitamin D, 25-hydroxy measurement Katherin Edge MD Work Phone: Comment on above: Vitamin D StatusDeficiency: <20 ng/mL (5 0nmol/L)Insufficiency: 20-30 ng/mL (50-75 nmol/L)Sufficiency: 30-100 ng/mL (75-250 nmol/L)Toxicity: >100 ng/mL (>250 nmol/L) Start: 04-08-2025 Ecg routine ecg w/least 12 lds w/i&r Estrellita Soto MD Work Phone: Start: 11-19-2024 X-ray of chest, PA and lateral views Katheirn Edge MD Work Phone: Start: 11-10-2024 SARS-CoV-2, Influenza & RSV (PCR) Katherin Edge MD Work Phone: Start: 11-10-2024 Plain chest X-ray Katherin Edge MD Work Phone: Start: 10-28-2024 Urine microalbumin/creatinine ratio measurement Katherin Edge MD Work Phone: Start: 10-28-2024 Parathyroid hormone measurement Katherin Edge MD Work Phone: Start: 10-28-2024 Vitamin D, 25-hydroxy measurement Katherin Edge MD Work Phone: Comment on above: Vitamin [...] End: 05-22-2017 Interrogation eval remote 90 d 1/2/community liaison ld dfb Bhavna Chiang PA-C Work Phone: [...] End: 04-23-2017 Interrogation eval remote 90 d 1/2/community liaison ld dfb Bhavna Chiang PA-C Work Phone: Start: 04-12-2017 End: 04-18-2017 Carotid duplex Bunny Verdin MD Start: 03-29-2017 End: 04-02-2017 Interrogation eval remote 90 d 1/2/community liaison ld dfb Bunny Verdin MD Start: 03-16-2017 [...] End: 03-19-2017 Interrogation eval remote 90 d 1/2/community liaison ld dfb Kareem Mota MD Start: 02-12-2017 End: 02-12-2017 *BMP Bhavna Chiang PA-C Work Phone: Start: 02-12-2017 End: 02-12-2017 *CBC with Differential Bhavna Chiang PA-C Work Phone: Start: 02-12-2017 End: 02-12-2017 SYRUP MIXER HELPER Bhavna Chiang PA-C Work Phone: Start: 02-12-2017 End: 02-12-2017 Follow Up Appt 6 weeks Bhavna Chiang PA-C Work Phone: Start: 02-12-2017 End: 02-13-2017 Interrogation eval remote 90 d 1/2/community liaison ld dfb Bhavna Chiang PA-C Work Phone: [...] End: 02-05-2017 Interrogation eval remote 90 d 1/2/community liaison ld dfb Bunny Verdin MD Start: 02-02-2017 End: 02-12-2017 Pacer Clinic Bunny Verdin MD Start: 12-26-2016 End: 02-12-2017 Follow Up Appt 6 months Nic Hadley Start: 12-26-2016 End: 02-12-2017 AG Verdin MD Start: 12-04-2016 End: 02-12-2017 Follow Up Appt 3 months Nic Hadley Start: 12-04-2016 End: 02-12-2017 Pacer Clinic Bunny Verdin MD Start: 12-04-2016 End: 12-08-2016 Prgrmng dev eval implantable in persn 1 ld toby Verdin MD Start: 11-01-2016 End: 11-01-2016 Erythropoietin (EPO) [Units/volume] in Serum or Plasma [facility] [employer] Work Phone: Start: 10-31-2016 End: 10-31-2016 *CBC w/Diff - oncology ONLY [facility] [employer] Work Phone: Start: 10-31-2016 End: 10-31-2016 *CMP Complete Metabolic Panel [facility] [employer] Work Phone: Start: 10-31-2016 End: 10-31-2016 Ferritin [Mass/volume] in Serum or Plasma [facility] [employer] Work Phone: Start: 10-31-2016 End: 10-31-2016 Iron and Iron binding capacity panel - Serum or Plasma [facility] [employer] Work Phone: Start: 10-23-2016 End: 02-12-2017 Follow Up Appt 1 month Bhavna Chiang PA-C Work Phone: Start: 10-23-2016 End: 10-25-2016 Interrogation eval remote 90 d 1/2/community liaison ld dfb Bhavna Chiang PA-C Work Phone: Start: 10-23-2016 End: 02-12-2017 Pacer Clinic Bhavna Chiang PA-C Work Phone: Start: 08-29-2016 End: 02-12-2017 Follow Up Appt 1 month Bunny Verdin MD Start: 08-29-2016 End: 08-29-2016 Interrogation eval remote 90 d 1/2/community liaison ld dfhiral Verdin MD Start: 08-29-2016 End: 02-12-2017 Pacer Clinic Bunny Verdin MD Start: 07-31-2016 End: 08-03-2016 *CBC w/Diff - oncology ONLY [facility] [employer] Work Phone: Start: 07-31-2016 End: 08-03-2016 *CMP Complete Metabolic Panel [facility] [employer] Work Phone: Start: 07-31-2016 End: 08-08-2016 Erythropoietin (EPO) [Units/volume] in Serum or Plasma [facility] [employer] Work Phone: Start: 07-31-2016 End: 08-03-2016 Ferritin [Mass/volume] in Serum or Plasma [facility] [employer] Work Phone: Start: 07-31-2016 End: 08-03-2016 Reticulocytes/100 erythrocytes in Blood [facility] [employer] Work Phone: Start: 07-24-2016 End: 07-24-2016 *BMP Bunny Verdin MD Start: 07-24-2016 End: 02-12-2017 Follow Up Appt 3 months Bhavna Chiang PA-C Work Phone: Start: 07-24-2016 End: 07-24-2016 Interrogation eval remote 90 d 1/2/community liaison ld dfb Bhavna Chiang PA-C Work Phone: Start: 07-24-2016 End: 07-24-2016 Magnesium [Mass/volume] in Serum or Plasma Bunny Verdin MD Start: 07-24-2016 End: 03-20-2017 Pacer Clinic Bhavna Chiang PA-C Work Phone: Start: 07-24-2016 End: 07-24-2016 Thyrotropin [Units/volume] in Serum or Plasma Bunny Verdin MD Start: 06-21-2016 End: 06-21-2016 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 MIXER HELPER Bhavna Chiang PA-C Work Phone: Start: 06-21-2016 End: 02-12-2017 Follow Up Appt 1 month Bhavna Chiang PA-C Work Phone: Start: 06-21-2016 End: 06-21-2016 Follow Up Appt 6 months Bhavna Chiang PA-C Work Phone: Start: 06-21-2016 End: 06-22-2016 Interrogation eval remote 90 d 1/2/community liaison ld dfb Bhavna Chiang PA-C Work Phone: Start: 06-21-2016 End: 02-12-2017 Pacer Clinic Bhavna Chiang PA-C Work Phone: Start: 06-02-2016 End: 06-12-2016 *CMP Complete Metabolic Panel [facility] Faisal DO Start: 06-02-2016 End: 06-12-2016 Ferritin [Mass/volume] in Serum or Plasma [facility] DO Start: 06-02-2016 End: 06-12-2016 [facility]eticulocytes[facility] Start: 05-22-2016 End: 05-29-2016 Follow Up Appt 1 month Bunny Verdin MD Start: 05-22-2016 End: 05-23-2016 Interrogation eval remote 90 d 1/2/community liaison ld toby Verdin MD Start: 05-22-2016 End: 05-29-2016 Pacer Clinic Bunny Verdin MD Start: 04-17-2016 End: 05-29-2016 Follow Up Appt 3 months Nic Hadley Start: 04-17-2016 End: 04-17-2016 Interrogation eval remote 90 d 1/2/community liaison ld dfb Bunny Verdin MD Start: 04-17-2016 End: 05-29-2016 Pacer Clinic Bunny Verdin MD Start: 03-14-2016 End: 05-29-2016 Follow Up Appt 1 month Bunny Verdin MD Start: 03-14-2016 End: 03-19-2016 Interrogation eval remote 90 d 1/2/community liaison ld dfb Bunny Verdin MD Start: 03-14-2016 End: 05-29-2016 Pacer Clinic Bunny Verdin MD Start: 03-03-2016 End: 03-31-2016 *CMP Complete Metabolic Panel [facility] Dagoberto Faisal GONZALES Start: 03-03-2016 End: 03-31-2016 Ferritin [Mass/volume] in Serum or Plasma [facility] Dagoberto Faisal Start: 03-03-2016 End: 05-29-2016 Follow Up Appt 3 months Nic Hadley Start: 03-03-2016 End: 03-10-2016 Interrogation eval remote 90 d 1/2/community liaison ld dfb Bunny Verdin MD Start: 03-03-2016 [...] End: 01-18-2016 *CMP Complete Metabolic Panel Ronit J Kailey SPARKS Start: 01-10-2016 End: 01-11-2016 *CBC with Differential Ronit Bonner MD Start: 01-10-2016 End: 01-11-2016 C reactive protein [Mass/volume] in Serum or Plasma by High sensitivity method Ronit Bonner MD Start: 01-10-2016 End: 01-11-2016 Erythrocyte sedimentation rate Ronit Bonner MD Start: 12-28-2015 End: 12-28-2015 *CBC with Differential Ronit Bonner MD Start: 12-28-2015 End: 12-28-2015 C reactive protein [Mass/volume] in Serum or Plasma by High sensitivity method Ronit Bonner MD Start: 12-28-2015 End: 12-28-2015 Erythrocyte sedimentation rate Ronit Bonner MD Start: 12-24-2015 End: 12-24-2015 SYRUP MIX[employer] HELPER Bhavna Chiang PA-C Work Phone: Start: 12-24-2015 [...] MD Start: 11-29-2015 End: 12-13-2015 *BMP Ronit J Signs Start: 11-29-2015 End: 12-13-2015 *CBC with Differential Ronit J Signs Start: 11-29-2015 End: 12-13-2015 Erythrocyte sedimentation rate Ronit J Signs Start: 10-13-2015 End: 10-22-2015 *BUFFY Verdin MD [...] PA-C Work Phone: Start: 03-24-2014 End: 03-24-2014 SYRUP MIXER HELPER Bhavna Chiang PA-C Work Phone: Start: 03-24-2014 [...] PA-C Work Phone: Start: 05-29-2013 End: 05-29-2013 SYRUP MIXER HELPER Bhavna Chiang PA-C Work Phone: Start: 05-29-2013 [...] Ecg routine ecg w/least 12 lds w/i&r rFan Jewell MD Start: 12-21-2011 End: 12-21-2011 Follow [...] DTaP,Tdap,Td Vaccine (4 - Td or Tdap) [facility] Start: 04-05-2028 Urine microalbumin profile [facility] Start: 04-19-2026 End: 04-19-2026 Patient encounter procedure 04/19/2026 10:00 AM EDT Office Visit [facility] [place] [address] [place], [place] [phone] Estrellita Soto MD [address] D[place] [address] [place] [phone] (Fax) 1 year follow up- hlk [facility] [place] Comment on above: 1 year follow up- hl k Start: 04-27-2025 Influenza vaccination Influenza Vacc ine (#1) [facility] Start: 04-08-2025 End: 04-08-2025 Patient encounter procedure 04/08/2025 10:00 AM EDT Office Visit [facility] Cardiology [place] [address] [facility], [place] [phone] Estrellita Soto MD [address] [phone] (Fax) Return in about 1 year (around 03/27/2025) for PIO Esquivel or Radha office. [facility] [place] Comment on above: Return in about 1 ye ar (around 03/27/2025) for PIO Esquivel or Radha office. Start: 11-10-2024 [facility] Start: 11-10-2024 Plain chest X-ray Chest 1 View (Port able) [facility] Start: 11-10-2024 XR Chest Single view [facility] Start: 08-27-2024 Advance Directive Discussion Advance Directive Discussion [facility] Start: 04-27-2024 Influenza vaccination Influenza Vacc ine (#1) [facility] Start: 12-25-2023 [facility] Start: 08-27-2023 Advance Directive Discussion Advance Directive Discussion [facility] Start: 07-11-2023 Patient referral [facility] Work Phone: Start: 05-21-2023 X-ray of lumbosacral spine L/S Spine Min 4 Views [facility] Start: 05-21-2023 XR Spine Lumbar and Sacrum GE 4 Views [facility] Start: 05-20-2023 [facility] Start: 05-20-2023 Bacteria identified in Urine by Culture [facility] Start: 05-01-2023 Prostate specific an tigen measurement [facility] Start: 05-01-2023 Thyroid stimulating hormone measurement [facility] Start: 04-27-2023 Covid-19 Vaccine () Covid-19 Vaccine () [facility] Start: 04-27-2022 Influenza vaccination [facility] Start: 04-05-2022 Patient discharge [facility] Work Phone: Start: 04-05-2022 [facility] Work Phone: Start: 04-03-2022 Continuous positive airway pressure ventilation treatment [facility] Work Phone: Start: 04-02-2022 End: 04-03-2022 [facility] Work Phone: Start: 04-02-2022 Following clinical pathway protocol [facility] Work Phone: Start: 04-02-2022 Assessment of risk o f venous thromboembolism [facility] Work Phone: Start: 04-02-2022 Cardiac monitoring [facility] Work Phone: Start: 04-02-2022 Care regimes management [facility] Work Phone: Start: 04-02-2022 Catheterization of vein [facility] Work Phone: Start: 04-02-2022 Elevation of head of bed [facility] Work Phone: Start: 04-02-2022 Exercises [facility] Work Phone: Start: 04-02-[address] anned interventions [facility] Work Phone: Start: 04-02-2022 Inhalation therapy procedure [facility] Work Phone: Start: 04-02-2022 Insertion of cathete r into peripheral vein [facility] Work Phone: Start: 04-02-2022 Measuring intake and output [facility] Work Phone: Start: 04-02-2022 Notification of physician [facility] Work Phone: Start: 04-02-2022 Oxygen therapy [facility] Work Phone: Start: 04-02-2022 Patient referral to dietitian [facility] Work Phone: Start: 04-02-2022 Providing care accor ding to standard [facility] Work Phone: Start: 04-02-2022 Provision of activit y privileges [facility] Work Phone: Start: 04-02-2022 Referral to occupati onal therapist [facility] Work Phone: Start: 04-02-2022 Referral to service [facility] Work Phone: Start: 04-02-2022 Tobacco use cessatio n education [facility] Work Phone: Start: 04-02-2022 Verification routine [facility] Work Phone: Start: 04-02-2022 Admission procedure [facility] Work Phone: Start: 01-04-2022 Patient discharge [facility] Work Phone: Start: 01-03-2022 Enteric precautions [facility] Work Phone: Start: 01-03-2022 Referral to caustic mixer [facility] Work Phone: Start: 01-02-2022 Referral to service [facility] Work Phone: Start: 01-01-2022 Following clinical pathway protocol [facility] Work Phone: Start: 01-01-2022 Application of intermittent pneumatic compression device [facility] Work Phone: Start: 01-01-2022 Assessment of risk o f venous thromboembolism [facility] Work Phone: Start: 01-01-2022 Care regimes management [facility] Work Phone: Start: 01-01-2022 Continuous positive airway pressure ventilation treatment [facility] Work Phone: Start: 01-01-2022 Elevation of affecte d extremity [facility] Work Phone: Start: 01-01-2022 Incentive spirometry [facility] Work Phone: Start: 01-01-2022 Inhalation therapy procedure [facility] Work Phone: Start: 01-01-2022 Insertion of cathete r into peripheral vein [facility] Work Phone: Start: 01-01-2022 Introduction of urin [place] catheter [facility] Work Phone: Start: 01-01-2022 Measuring intake and output [facility] Work Phone: Start: 01-01-2022 Notification of physician [facility] Work Phone: Start: 01-01-2022 Oxygen therapy [facility] Work Phone: Start: 01-01-2022 Patient education [facility] Work Phone: Start: 01-01-2022 Providing care accor ding to standard [facility] Work Phone: Start: 01-01-2022 Provision of activit y privileges [facility] Work Phone: Start: 01-01-2022 Referral to service [facility] Work Phone: Start: 01-01-2022 [facility] Work Phone: Start: 01-01-2022 Admission procedure [facility] Work Phone: Start: 01-01-2022 Computed tomography of abdomen and pelvis with intravenous contrast Abdomen/Pelvis W IV Cont ONLY [facility] Work Phone: Start: 01-01-2022 Patient referral to dietitian [facility] Work Phone: Start: 08-27-2021 ADVANCE DIRECTIVE DISCUSSION ADVANCE DIRECTIVE DISCUSSION [facility] Start: 04-27-2021 Influenza vaccination INFLUENZA (#1) [facility] Start: 03-27-2021 COVID-19 VACCINE (4 - Booster) COVID-19 VACCINE (4 - Booster) [facility] Start: 2018 End: 2018 Appointment Appointment [facility] Work Phone: Start: 2018 End: 2018 Radex hand minimum 3 views XR HAND 3+ VWS-LT [facility] Work Phone: Start: 05-01-2018 Hepatitis B screening URINE ALBUMIN:CREATININE RATIO [facility] Start: 10-19-2017 Hemoglobin A1c measurement HbA1C [facility] Start: 10-19-2017 Hemoglobin A1c/Hemoglobin.total in Blood HBA1C [facility] Start: 08-29-2017 End: 08-29-2017 Appointment Appointment [facility] Work Phone: Start: 07-06-2017 End: 07-04-2017 Thyroid stimulating hormone (TSH) *TSH [facility] Work Phone: Start: 07-06-2017 End: 07-04-2017 Thyroxine (T4) *T4 (Total) [facility] Work Phone: Start: 07-06-2017 End: 07-06-2017 Appointment Appointment [facility] Work Phone: Start: 06-08-2017 End: 06-11-2017 *BMP *BMP [facility] Work Phone: Start: 05-29-2017 End: 05-29-2017 Follow Up Appt Other Follow Up Appt Other [facility] Work Phone: Start: 05-25-2017 End: 05-18-2017 *BMP *BMP [facility] Work Phone: Start: 05-21-2017 End: 06-26-2017 Follow Up Appt 3 months Follow Up Appt 3 months [facility] Work Phone: Start: 05-21-2017 End: 06-26-2017 Pacer Clinic Pacer Clinic [facility] Work Phone: Start: 05-18-2017 End: 05-18-2017 Follow Up Appt Other Follow Up Appt Other [facility] Work Phone: Start: 05-01-2017 End: 11-07-2016 *CBC w/Diff - oncology ONLY *CBC w/Diff - oncology ONLY [facility] Work Phone: Start: 05-01-2017 End: 11-07-2016 *CMP Complete Metabolic Panel *CMP Complete Metabolic Panel [facility] Work Phone: Start: 05-01-2017 End: 11-07-2016 Ferritin *Ferritin [facility] Work Phone: Start: 05-01-2017 End: 11-07-2016 Iron and Iron binding capacity panel - Serum or Plasma *IBC Iron & Total Iron Binding Capacity [facility] Work Phone: Start: 04-12-2017 End: 04-13-2017 Carotid duplex Carotid duplex [facility] Work Phone: Start: 03-16-2017 End: 03-20-2017 Echocardiography Echocardiogram (complete) [facility] Work Phone: Start: 03-16-2017 End: 03-16-2017 Follow Up Appt Other Follow Up Appt Other [facility] Work Phone: Start: 03-16-2017 End: 04-18-2017 Left Heart Cath Left Heart Cath [facility] Work Phone: Start: 03-16-2017 End: 04-18-2017 Magnesium *Magnesium [facility] Work Phone: Start: 02-12-2017 End: 02-12-2017 *BMP *BMP [facility] Work Phone: Start: 02-12-2017 End: 02-12-2017 *CBC with Differential *CBC with Differential [facility] Work Phone: Start: 02-12-2017 End: 02-12-2017 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 [facility] Work Phone: Start: 02-12-2017 End: 02-12-2017 Follow Up Appt 6 weeks Follow Up Appt 6 weeks [facility] Work Phone: Start: 02-12-2017 End: 02-12-2017 Magnesium *Magnesium [facility] Work Phone: Start: 02-12-2017 End: 02-12-2017 Thyroid stimulating hormone (TSH) *TSH [facility] Work Phone: Start: 02-12-2017 End: 02-12-2017 Thyroxine (T4) *T4 (Total) [facility] Work Phone: Start: 02-12-2017 End: 02-12-2017 r mobile cv telemetry w/i&report 30 days 30 Day Holter Monitor [facility] Work Phone: Start: 02-02-2017 End: 02-12-2017 Follow Up Appt 1 month Follow Up Appt 1 month [facility] Work Phone: Start: 02-02-2017 End: 02-12-2017 Pacer Clinic Pacer Clinic [facility] Work Phone: Start: 12-26-2016 End: 02-12-2017 Follow Up Appt 6 months Follow Up Appt 6 months [facility] Work Phone: Start: 12-26-2016 End: 02-12-2017 MMM MMM [facility] Work Phone: Start: 12-04-2016 End: 02-12-2017 Follow Up Appt 3 months Follow Up Appt 3 months [facility] Work Phone: Start: 12-04-2016 End: 02-12-2017 Pacer Clinic Pacer Clinic [facility] Work Phone: Start: 11-08-2016 End: 10-31-2016 *CBC w/Diff - oncology ONLY *CBC w/Diff - oncology ONLY [facility] Work Phone: Start: 11-08-2016 End: 10-31-2016 *CMP Complete Metabolic Panel *CMP Complete Metabolic Panel [facility] Work Phone: Start: 11-08-2016 End: 11-01-2016 Erythropoietin *MICHAEL- Erythropoietin [facility] Work Phone: Start: 11-08-2016 End: 10-31-2016 Ferritin *Ferritin [facility] Work Phone: Start: 11-08-2016 End: 10-31-2016 Iron and Iron binding capacity panel - Serum or Plasma *IBC Iron & Total Iron Binding Capacity [facility] Work Phone: Start: 10-23-2016 End: 02-12-2017 Follow Up Appt 1 month Follow Up Appt 1 month [facility] Work Phone: Start: 10-23-2016 End: 02-12-2017 [facility] Work Phone: Start: 10-06-2016 Hepatitis B surface antibody level LDL CHOLESTEROL [facility] Start: 08-29-2016 End: 02-12-2017 Follow Up Appt 1 month Follow Up Appt 1 month [facility] Work Phone: Start: 08-29-2016 End: 02-12-2017 [facility] Work Phone: Start: 08-10-2016 End: 08-10-2016 Office outpatient visit 25 minutes [id number] Ofc Vst, Est Level IV [facility] Work Phone: Start: 07-31-2016 End: 08-03-2016 *CBC w/Diff - oncology ONLY *CBC w/Diff - oncology ONLY [facility] Work Phone: Start: 07-31-2016 End: 08-03-2016 *CMP Complete Metabolic Panel *CMP Complete Metabolic Panel [facility] Work Phone: Start: 07-31-2016 End: 06-08-2016 *MISC - Miscellaneous Lab Test #1 *MISC - Miscellaneous Lab Test #1 [facility] Work Phone: Start: 07-31-2016 End: 08-08-2016 Erythropoietin *MICHAEL- Erythropoietin [facility] Work Phone: Start: 07-31-2016 End: 08-03-2016 Ferritin *Ferritin [facility] Work Phone: Start: 07-31-2016 End: 08-03-2016 Reticulocytes/100 erythrocytes *Reticulocyte Count [facility] Work Phone: Start: 07-24-2016 End: 07-24-2016 *BMP *BMP [facility] Work Phone: Start: 07-24-2016 End: 02-12-2017 Follow Up Appt 3 months Follow Up Appt 3 months [facility] Work Phone: Start: 07-24-2016 End: 07-24-2016 Magnesium *Magnesium [facility] Work Phone: Start: 07-24-2016 End: 03-20-2017 Pacer Clinic Pacer Clinic [facility] Work Phone: Start: 07-24-2016 End: 07-24-2016 Thyroid stimulating hormone (TSH) *TSH [facility] Work Phone: Start: 07-02-2016 Hepatitis B surface antibody level LDL Cholesterol [facility] Start: 06-21-2016 End: 06-21-2016 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 [facility] Work Phone: Start: 06-21-2016 End: 02-12-2017 Follow Up Appt 1 month Follow Up Appt 1 month [facility] Work Phone: Start: 06-21-2016 End: 06-21-2016 Follow Up Appt 6 months Follow Up Appt 6 months [facility] Work Phone: Start: 06-21-2016 End: 02-12-2017 Pacer Clinic Pacer Clinic [facility] Work Phone: Start: 06-02-2016 End: 03-31-2016 *CBC with Differential *CBC with Differential [facility] Work Phone: Start: 06-02-2016 End: 06-12-2016 *CMP Complete Metabolic Panel *CMP Complete Metabolic Panel [facility] Work Phone: Start: 06-02-2016 End: 03-31-2016 *MISC - Miscellaneous Lab Test #1 *MISC - Miscellaneous Lab Test #1 [facility] Work Phone: Start: 06-02-2016 End: 06-12-2016 Ferritin *Ferritin [facility] Work Phone: Start: 06-02-2016 End: 06-12-2016 Reticulocytes/100 erythrocytes *RETIC Reticulocyte Count Manul [facility] Work Phone: Start: 05-22-2016 End: 05-29-2016 Follow Up Appt 1 month Follow Up Appt 1 month [facility] Work Phone: Start: 05-22-2016 End: 05-29-2016 Pacer Clinic Pacer Clinic [facility] Work Phone: Start: 04-17-2016 End: 05-29-2016 Follow Up Appt 3 months Follow Up Appt 3 months [facility] Work Phone: Start: 04-17-2016 End: 05-29-2016 Pacer Clinic Pac[facility] Clinic [facility] Work Phone: Start: 03-31-2016 End: 03-31-2016 ENT referral ENT referral Connor Trevizour, [address] [place] [address], [id number] [facility] Work Phone: Start: 03-14-2016 End: 05-29-2016 Follow Up Appt 1 month Follow Up Appt 1 month [facility] Work Phone: Start: 03-14-2016 End: 05-29-2016 Pacer Clinic Pacer Clinic [facility] Work Phone: Start: 03-03-2016 End: 01-25-2016 *CBC with Differential *CBC with Differential [facility] Work Phone: Start: 03-03-2016 End: 03-31-2016 *CMP Complete Metabolic Panel *CMP Complete Metabolic Panel [facility] Work Phone: Start: 03-03-2016 End: 01-25-2016 *MISC - Miscellaneous Lab Test #1 *MISC - Miscellaneous Lab Test #1 [facility] Work Phone: Start: 03-03-2016 End: [...] 02-08-2016 End: 03-03-2016 Pacer Clinic Pacer Clinic [facility] Work Phone: Start: 01-17-2016 End: 01-18-2016 *CBC with Differential *CBC with Differential [facility] Work Phone: Start: 01-17-2016 End: 01-18-2016 *CMP Complete Metabolic Panel *CMP Complete Metabolic Panel [facility] Work Phone: Start: 01-17-2016 End: 01-18-2016 Blood Culture Blood Culture [facility] Work Phone: Start: 01-10-2016 End: 01-11-2016 *CBC with Differential *CBC with Differential [facility] Work Phone: Start: 01-10-2016 End: 01-11-2016 C reactive protein (hsCRP) *CRP - C-Reative Protein [facility] Work Phone: Start: 01-10-2016 End: 01-11-2016 Erythrocyte sedimentation rate *Sedimentation Rate (ESR) [facility] Work Phone: Start: 12-28-2015 End: 12-28-2015 *CBC with Differential *CBC with Differential [facility] Work Phone: Start: 12-28-2015 End: 12-28-2015 C reactive protein (hsCRP) *CRP - C-Reative Protein [facility] Work Phone: Start: 12-28-2015 End: 12-28-2015 Erythrocyte sedimentation rate *Sedimentation Rate (ESR) [facility] Work Phone: Start: 12-28-2015 End: 12-28-2015 Oncology Referral Oncology Referral Rachid Malone DO, [facility], [address], [place], [address] [facility] Work Phone: Start: 12-24-2015 End: 12-24-2015 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 [facility] Work Phone: Start: 12-24-2015 End: 12-24-2015 Follow Up Appt 2 months Follow Up Appt 2 months [facility] Work Phone: Start: 12-22-2015 End: 12-28-2015 *MISC - Miscellaneous Lab Test #1 *MISC - Miscellaneous Lab Test #1 [facility] Work Phone: Start: 12-22-2015 End: 12-22-2015 Blood occult peroxidase actv qual feces 1 deter Hemoccult [facility] Work Phone: Start: 12-22-2015 End: 12-27-2015 Ferritin *Ferritin [facility] Work Phone: Start: 12-22-2015 End: 12-27-2015 Iron *Iron [facility] Work Phone: Start: 12-22-2015 End: [...] Differential panel - Blood *CBC without Diff [facility] Work Phone: Start: 09-15-2015 End: 10-06-2015 *BMP *BMP [facility] Work Phone: Start: 09-15-2015 End: 10-06-2015 Cardiac Rehab Cardiac Rehab [facility] Work Phone: Start: 09-15-2015 End: 09-15-2015 Ecg routine ecg w/least 12 lds w/i&r EKG (In office) [facility] Work Phone: Start: 09-15-2015 End: 10-06-2015 Follow Up Appt 3 months Follow Up Appt 3 months [facility] Work Phone: Start: 09-15-2015 End: 09-15-2015 MMM MMM [facility] Work Phone: Start: 09-15-2015 End: 10-22-2015 Pacer Clinic Pacer Clinic [facility] Work Phone: Start: 08-02-2015 End: 10-06-2015 Magnesium *Magnesium [facility] Work Phone: Start: 07-02-2015 End: 10-06-2015 *Hepatic Function Panel *Hepatic Function Panel [facility] Work Phone: Start: 07-02-2015 End: 10-06-2015 Lipid panel [AGGREGATE] *Lipid Profile CC PCP [facility] Work Phone: Start: 06-07-2015 End: 06-07-2015 Follow Up Appt Other Follow Up Appt Other [facility] Work Phone: Start: 06-07-2015 End: 07-02-2015 Magnesium *Magnesium [facility] Work Phone: Start: 05-31-2015 End: 05-31-2015 Magnesium *Magnesium [facility] Work Phone: Start: 05-25-2015 End: 05-26-2015 *BMP *BMP [facility] Work Phone: Start: 05-25-2015 End: 05-26-2015 *CBC with Differential *CBC with Differential [facility] Work Phone: Start: 05-25-2015 End: 05-25-2015 24 hour holter monitor 24 hour holter monitor [facility] Work Phone: Start: 05-25-2015 End: 05-26-2015 BNP *Brain Natriuretic Peptide BNP [facility] Work Phone: Start: 05-25-2015 End: 05-25-2015 Ecg routine ecg w/least 12 lds w/i&r EKG (In office) [facility] Work Phone: Start: 05-25-2015 End: 05-25-2015 Follow Up Appt Other Follow Up Appt Other [facility] Work Phone: Start: 05-25-2015 End: 05-26-2015 Magnesium *Magnesium [facility] Work Phone: Start: 05-25-2015 End: 05-25-2015 MMM MMM [facility] Work Phone: Start: 05-25-2015 End: 05-25-2015 Nuclear stress test -Lexiscan Nuclear stress test -Lexiscan [facility] Work Phone: Start: 05-25-2015 End: 05-26-2015 Thyroid stimulating hormone (TSH) *TSH [facility] Work Phone: Start: 04-07-2015 End: 04-07-2015 Ecg routine ecg w/least 12 lds w/i&r EKG (In office) [facility] Work Phone: Start: 04-07-2015 End: 04-07-2015 Follow Up Appt 6 months Follow Up Appt 6 months [facility] Work Phone: Start: 04-07-2015 End: 04-07-2015 PFM PFM [facility] Work Phone: Start: 10-06-2014 End: 03-30-2015 Follow Up Appt 6 months Follow Up Appt 6 months [facility] Work Phone: Start: 10-06-2014 End: 03-30-2015 MMM MMM [facility] Work Phone: Start: 03-24-2014 End: 03-25-2014 48 hour holter monitor 48 hour holter monitor [facility] Work Phone: Start: 03-24-2014 End: 03-24-2014 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 [facility] Work Phone: Start: 03-24-2014 End: 03-24-2014 Follow Up Appt 6 months Follow Up Appt 6 months [facility] Work Phone: Start: 09-16-2013 End: 09-16-2013 Follow Up Appt 6 months Follow Up Appt 6 months [facility] Work Phone: Start: 09-16-2013 End: 09-16-2013 MMM MMM [facility] Work Phone: Start: 08-27-2013 End: 12-22-2013 *Hepatic Function Panel *Hepatic Function Panel [facility] Work Phone: Start: 08-27-2013 End: 12-22-2013 Lipid panel [AGGREGATE] *Lipid Profile CC PCP [facility] Work Phone: Start: 05-29-2013 End: 05-29-2013 24 hour holter monitor 24 hour holter monitor [facility] Work Phone: Start: 05-29-2013 End: 05-29-2013 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 [facility] Work Phone: Start: 05-29-2013 End: 05-29-2013 Follow Up Appt 3 months Follow Up Appt 3 months [facility] Work Phone: Start: 02-25-2013 End: 03-06-2013 *Hepatic Function Panel *Hepatic Function Panel [facility] Work Phone: Start: 02-25-2013 End: 02-25-2013 Echocardiography Echocardiogram (complete) [facility] Work Phone: Start: 02-25-2013 End: 02-25-2013 Follow Up Appt 3 months Follow Up Appt 3 months [facility] Work Phone: Start: 02-25-2013 End: 03-06-2013 Lipid panel [AGGREGATE] *Lipid Profile CC PCP [facility] Work Phone: Start: 02-25-2013 End: 02-25-2013 MMM MMM [facility] Work Phone: Start: 02-17-2013 End: 03-06-2013 *Hepatic Function Panel *Hepatic Function Panel [facility] Work Phone: Start: 02-17-2013 End: 03-06-2013 Lipid panel [AGGREGATE] *Lipid Profile CC PCP [facility] Work Phone: Start: 01-06-2013 End: 01-06-2013 BNP *Brain Natriuretic Peptide BNP [facility] Work Phone: Start: 01-06-2013 End: 01-06-2013 INR Coag RelTime (PPP) *PT/INR - Standing Order [facility] Work Phone: Start: 11-12-2012 End: 01-06-2013 INR Coag RelTime (PPP) *PT/INR - Standing Order [facility] Work Phone: Start: 10-22-2012 End: 01-06-2013 *BMP *BMP [facility] Work Phone: Start: 10-22-2012 End: 01-06-2013 *Hepatic Function Panel *Hepatic Function Panel [facility] Work Phone: Start: 10-22-2012 End: 10-22-2012 Ecg routine ecg w/least 12 lds w/i&r EKG (In office) [facility] Work Phone: Start: 10-22-2012 End: 10-22-2012 Follow Up Appt 4 months Follow Up Appt 4 months [facility] Work Phone: Start: 10-22-2012 End: 01-06-2013 Lipid panel [AGGREGATE] *Lipid Profile [facility] Work Phone: Start: 10-22-2012 End: 01-06-2013 Magnesium *Magnesium [facility] Work Phone: Start: 10-22-2012 End: 01-06-2013 Thyroid stimulating hormone (TSH) *TSH [facility] Work Phone: Start: 10-22-2012 End: 01-06-2013 Thyroxine (T4) *T4 (Total) [facility] Work Phone: Start: 09-05-2012 End: 09-12-2012 Thyroid stimulating hormone (TSH) *TSH [facility] Work Phone: Start: 09-05-2012 End: 09-12-2012 Thyroxine (T4) *T4 (Total) [facility] Work Phone: Start: 06-20-2012 End: 09-17-2012 *BMP *BMP [facility] Work Phone: Start: 06-20-2012 End: 09-17-2012 Magnesium *Magnesium [facility] Work Phone: Start: 06-17-2012 End: 03-10-2012 *Hepatic Function Panel *Hepatic Function Panel [facility] Work Phone: Start: 06-17-2012 End: 03-10-2012 Lipid panel [AGGREGATE] *Lipid Profile [facility] Work Phone: Start: 06-13-2012 End: 06-13-2012 *BMP *BMP [facility] Work Phone: Start: 06-13-2012 End: 06-13-2012 *Hepatic Function Panel *Hepatic Function Panel [facility] Work Phone: Start: 06-13-2012 End: 10-22-2012 Chest x-ray X-Ray, Chest, PA & Lateral [facility] Work Phone: Start: 06-13-2012 End: 06-13-2012 Follow Up Appt 4 months Follow Up Appt 4 months [facility] Work Phone: Start: 06-13-2012 End: 06-13-2012 Magnesium *Magnesium [facility] Work Phone: Start: 06-13-2012 End: 06-13-2012 Pulmonary Fuction Test - complete Pulmonary Fuction Test - complete [facility] Work Phone: Start: 06-13-2012 End: 06-13-2012 Thyroid stimulating hormone (TSH) *TSH [facility] Work Phone: Start: 06-13-2012 End: 06-13-2012 Thyroxine (T4) *T4 (Total) [facility] Work Phone: Start: 05-29-2012 End: 06-05-2012 *BMP *BMP [facility] Work Phone: Start: 05-29-2012 End: 06-05-2012 *Hepatic Function Panel *Hepatic Function Panel [facility] Work Phone: Start: 05-29-2012 End: 06-05-2012 Magnesium *Magnesium [facility] Work Phone: Start: 05-29-2012 End: 06-05-2012 Thyroid stimulating hormone (TSH) *TSH [facility] Work Phone: Start: 05-29-2012 End: 06-05-2012 Thyroxine (T4) *T4 (Total) [facility] Work Phone: Start: 03-12-2012 End: 03-12-2012 Follow Up Appt 3 months Follow Up Appt 3 months [facility] Work Phone: Start: 02-28-2012 End: 03-10-2012 *Hepatic Function Panel *Hepatic Function Panel [facility] Work Phone: Start: 02-28-2012 End: 03-10-2012 Thyroid stimulating hormone (TSH) *TSH [facility] Work Phone: Start: 02-28-2012 End: 03-10-2012 Thyroxine (T4) *T4 (Total) [facility] Work Phone: Start: 12-21-2011 End: 12-21-2011 Ecg routine ecg w/least 12 lds w/i&r EKG (In office) [facility] Work Phone: Start: 12-21-2011 End: 12-21-2011 Follow Up Appt 3 months Follow Up Appt 3 months [facility] Work Phone: Start: 11-29-2011 End: 10-09-2011 *Hepatic Function Panel *Hepatic Function Panel [facility] Work Phone: Start: 11-29-2011 End: 10-09-2011 Lipid panel [AGGREGATE] *Lipid Profile [facility] Work Phone: Start: 10-19-2011 End: 10-09-2011 Thyroid stimulating hormone (TSH) *TSH [facility] Work Phone: Start: 10-19-2011 End: 10-09-2011 Thyroxine (T4) *T4 (Total) [facility] Work Phone: Start: 09-14-2011 End: 09-14-2011 Ecg routine ecg w/least 12 lds w/i&r EKG (In office) [facility] Work Phone: Start: 09-14-2011 End: 09-14-2011 Follow Up Appt 3 months Follow Up Appt 3 months [facility] Work Phone: Start: 09-05-2011 End: 09-11-2011 *BMP *BMP [facility] Work Phone: Start: 09-05-2011 End: 09-11-2011 *Hepatic Function Panel *Hepatic Function Panel [facility] Work Phone: Start: 09-05-2011 End: 09-11-2011 Lipid panel [AGGREGATE] *Lipid Profile [facility] Work Phone: Start: 09-05-2011 End: 09-11-2011 Magnesium *Magnesium [facility] Work Phone: Start: 09-05-2011 End: 09-11-2011 Thyroid stimulating hormone (TSH) *TSH [facility] Work Phone: Start: 09-05-2011 End: 09-11-2011 Thyroxine (T4) *T4 (Total) [facility] Work Phone: Start: 08-01-2011 End: 08-01-2011 Ecg routine ecg w/least 12 lds w/i&r EKG (In office) [facility] Work Phone: Start: 08-01-2011 End: 08-01-2011 Follow Up Appt 6 weeks Follow Up Appt 6 weeks [facility] Work Phone: Start: 07-13-2011 End: 09-05-2011 Ecg routine ecg w/least 12 lds w/i&r EKG (In office) [facility] Work Phone: Start: 02-24-2011 Medicare Annual Well ness Visit Medicare Annual Wellness Visit [facility] Start: 1988 SHINGRIX VACCINE (1 of 2) ZEPEDA GRIX VACCINE (1 of 2) [facility] Start: 1956 Anxiety Screening Anxiety Screening [facility] Start: 1956 Depression Screening Depression Scre ening [facility] Start: 1956 Hepatitis B surface antibody level LDL CHOLESTEROL [facility] Start: 1948 3 comp foot exam completed DIABETIC FOOT EXAM [facility] Start: 1948 Diabetic foot examination Diabetic F oot Exam [facility] Start: 1948 Glaucoma screening Dilated Retinal E xam [facility] Start: 1948 Hepatitis B screening Urine Albumin:Creatinine Ratio [facility] Start: 1948 Hepatitis C antibody , confirmatory test DILATED RETINAL EXAM [facility] Cholesterol [Mass/vo lume] in Serum or Plasma [facility] Cholesterol in HDL [Mass/volume] in Serum or Plasma [facility] Cholesterol in LDL [Mass/volume] in Serum or Plasma [facility] Hemoglobin A1c/Hemoglobin.total in Blood [facility] Patient Education [facility] Work Phone: Patient referral [facility] Work Phone: End: 12-22-2022 Radiologic exam abdomen 3+ views XR ABDOMEN 3V KUB W/OBLIQUES Radiology Routine Renal calculi 1 Occurrences starting 11/22/2021 until 12/22/2022 [facility] Work Phone: Comment on above: 1 Occurrences starti ng 11/22/2021 until 12/22/2022 Triglycerides measurement [facility] US Carotid arteries [facility] Work Phone: End: 12-22-2022 US KIDNEY/BLADDER US KIDNEY/BLADDER Radiology Routine Renal calculi Renal cyst 1 Occurrences starting 11/22/2021 until 12/22/2022 [facility] Work Phone: Comment on above: 1 Occurrences starti ng 11/22/2021 until 12/22/2022 VLDL cholesterol measurement [facility] Immunizations Immunization Date Immunization Notes Care Provider [facility] 06-25-2024 influenza, high dose seasonal, preservative-free Estrellita oSto MD Work Phone: [facility] 06-25-2024 influenza virus vaccine, unspecified formulation Estrellita Soto MD Work Phone: [facility] 08-15-2023 respiratory syncytia l virus (RSV) vaccine, bivalent (ABRYSVO) Estrellita Soto MD Work Phone: [facility] 05-25-2023 influenza, injectabl e, quadrivalent, contains preservative Estrellita Soto MD Work Phone: [facility] 05-25-2023 influenza virus vaccine, unspecified formulation Estrellita Soto MD Work Phone: [facility] 04-18-2023 tetanus toxoid, redu marilou diphtheria toxoid, and acellular pertussis vaccine, adsorbed Estrellita Soto MD Work Phone: [facility] 06-27-2022 influenza (aIIV4) vaccine, age 65+ yr, quadrivalent, PF (FLUAD QUAD) Estrellita Soto MD Work Phone: [facility] 05-26-2021 COVID-19 vaccine, ag e 12+ yr (PFIZER-BIONTECH - PURPLE TOP) Estrellita Soto MD Work Phone: [facility] Work Phone: 05-26-2021 influenza (aIIV4) vaccine, age 65+ yr, quadrivalent, PF (FLUAD QUAD) Estrellita Soto MD Work Phone: [facility] 05-26-2021 influenza, seasonal, injectable Estrellita Soto MD Work Phone: [facility] Work Phone: 11-25-2020 COVID-19 vaccine, ag e 12+ yr (PFIZER-BIONTECH - PURPLE TOP) [employer] Work Phone: [facility] Work Phone: 11-04-2020 COVID-19 vaccine, ag e 12+ yr (PFIZER-BIONTECH - PURPLE TOP) [employer] Work Phone: [facility] Work Phone: 10-25-2020 COVID-19 vaccine, ag e 12+ yr (PFIZER-BIONTECH - PURPLE TOP) [employer] Work Phone: [facility] Work Phone: 05-27-2020 influenza, high-dose , quadrivalent vaccine (FLUZONE HIGH DOSE QUADRIVALENT) Estrellita Soto MD Work Phone: [facility] Work Phone: 06-04-[address] Corin Hernandez Work Phone: [facility] 06-04-2019 influenza, injectabl e, quadrivalent, preservative free Estrellita Soto MD Work Phone: [facility] Work Phone: 06-04-2019 influenza, seasonal, injectable Estrellita Soto MD Work Phone: [facility] Work Phone: 06-04-2019 influenza, seasonal, injectable, preservative free [employer] Work Phone: [facility] Work Phone: 06-04-2019 zoster vaccine recombinant Estrellita Soto MD Work Phone: [facility] Work Phone: 05-27-2019 influenza, injectabl e, quadrivalent, preservative free [employer] Work Phone: [facility] Work Phone: 03-04-2019 zoster vaccine recombinant Estrellita Soto MD Work Phone: [facility] Work Phone: 08-13-2018 pneumococcal polysaccharide vaccine, 23 valent Estrellita Soto MD Work Phone: [facility] Work Phone: 05-21-2018 influenza nasal, unspecified formulation Estrellita Soto MD Work Phone: [facility] Work Phone: 05-21-2018 influenza virus vaccine, unspecified formulation Estrellita Soto MD Work Phone: [facility] 05-21-2018 influenza, injectabl e, quadrivalent, contains preservative [employer] Work Phone: [facility] Work Phone: 04-05-2018 tetanus toxoid, redu marilou diphtheria toxoid, and acellular pertussis vaccine, adsorbed [employer] Work Phone: [facility] Work Phone: 04-25-[address] Corin Hernandez Work Phone: [facility] 04-25-2017 influenza, seasonal, injectable [employer] Work Phone: [facility] Work Phone: 04-25-2017 influenza, seasonal, injectable, preservative free [employer] Work Phone: [facility] Work Phone: 04-17-2017 influenza, injectabl e, quadrivalent, contains preservative [employer] Work Phone: [facility] Work Phone: 05-19-2016 influenza, high dose seasonal, preservative-free [employer] Work Phone: [facility] Work Phone: 07-20-2015 pneumococcal conjuga te vaccine, 13 valent [employer] Work Phone: [facility] Work Phone: 06-27-2015 pneumococcal conjuga te vaccine, 13 valent Estrellita Soto MD Work Phone: [facility] Work Phone: 05-27-[address] Corin Hernandez Work Phone: [facility] 05-27-2015 influenza, seasonal, injectable Estrellita Soto MD Work Phone: [facility] Work Phone: 05-27-2015 influenza, seasonal, injectable, preservative free [employer] Work Phone: [facility] Work Phone: 05-26-2015 influenza, high dose seasonal, preservative-free [employer] Work Phone: [facility] Work Phone: 05-27-2014 influenza nasal, unspecified formulation Estrellita Soto MD Work Phone: [facility] Work Phone: 05-27-2014 influenza virus vaccine, unspecified formulation Estrellita Soto MD Work Phone: [facility] 07-16-2013 diphtheria, tetanus toxoids and acellular pertussis vaccine, unspecified formulation Estrellita Soto MD Work Phone: [facility] Work Phone: 06-27-2013 influenza nasal, unspecified formulation Estrellita Soto MD Work Phone: [facility] Work Phone: 06-27-2013 influenza virus vaccine, unspecified formulation Estrellita Soto MD Work Phone: [facility] 05-27-[address] Corin Hernandez Work Phone: [facility] 05-27-2013 influenza, seasonal, injectable Estrellita Soto MD Work Phone: [facility] Work Phone: 05-27-2013 influenza, seasonal, injectable, preservative free [employer] Work Phone: [facility] Work Phone: 06-05-2012 influenza nasal, unspecified formulation Estrellita Soto MD Work Phone: [facility] Work Phone: 06-05-2012 influenza virus vaccine, unspecified formulation Estrellita Soto MD Work Phone: [facility] 05-24-2011 influenza nasal, unspecified formulation Estrellita Soto MD Work Phone: [facility] Work Phone: 05-24-2011 influenza virus vaccine, unspecified formulation Estrellita Soto MD Work Phone: [facility] 05-31-2010 influenza nasal, unspecified formulation Estrellita Soto MD Work Phone: [facility] Work Phone: 05-31-2010 influenza virus vaccine, unspecified formulation Estrellita Soto MD Work Phone: [facility] 08-27-2009 pneumococcal polysaccharide vaccine, 23 valent [employer] Work Phone: [facility] Work Phone: 08-27-[address] Corin Hernandez Work Phone: [facility] Work Phone: 08-27-2009 pneumococcal vaccine , unspecified formulation Dr. Corin Hernandez Work Phone: [facility] 05-28-2009 influenza nasal, unspecified formulation Estrellita Soto MD Work Phone: [facility] Work Phone: 05-28-2009 influenza virus vaccine, unspecified formulation Estrellita Soto MD Work Phone: [facility] 07-06-2008 pneumococcal polysaccharide vaccine, 23 valent Estrellita Soto MD Work Phone: [facility] Work Phone: No information available. 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 Work Phone: Payers Date Payer Category Payer Self-pay [id number] 2011 Medicare MEDICARE MEDICAR E A AND B [id number] 2011-Present [phone] [address] [address] [place] [address] Medicare [id number] 2011 Medicare [id number] 2005 Private Health Insurance [employer]COLMARBIEL Jose DANIELMireya PPO [id number] 2005-Present [phone] [address] [place] [address] PPO [id number] 2005 Private Health Insurance [id number] 2005 Private Health Insurance [id number] 2003 Medicare [id number] 1938 Unknown [id number] .[id number] 1938 Unknown [id number] .278 Medicare [id number] Unknown [id number] Unknown [id number] .462 Unknown [id number] 2.840.1.193136.3.579.2 .462 Unknown [id number] 2.840.1.534416.3.579.2 .462 Unknown [id number] 2.840.1.701683.3.579.2 .462 Unknown [id number] 2.840.1.720465.3.579.2 .462 Unknown [id number] 2.840.1.931288.3.579.2 .462 Unknown [id number] 2.840.1.436682.3.579.2 .462 Unknown [id number] 2.840.1.817702.3.579.2 .462 Unknown [id number] 2.840.1.146218.3.579.2 .462 Unknown [id number] 2.840.1.957710.3.579.2 .462 Unknown [id number] 2.840.1.953050.3.579.2 .462 Unknown [id number] 2.16.840.1.372170.3.579.2 .462 Unknown [id number] 2.16.840.1.701395.3.579.2 .462 Unknown [id number] 2.16.840.1.903726.3.579.2 .462 Unknown [id number] 2.840.1.715827.3.579.2 .462 Unknown [id number] 2.16.840.1.265000.3.579.2 .462 Unknown [id number] 2.16.840.1.284358.3.579.2 .462 Unknown [id number] 2.16.840.1.254287.3.579.2 .462 Unknown [id number] 2.16.840.1.862567.3.579.2 .462 Unknown [id number] 2.16.840.1.640418.3.579.2 .462 Unknown [id number] 2.16.840.1.647075.3.579.2 .462 Unknown [id number] 2.16.840.1.569898.3.579.2 .462 Unknown [id number] 2.16.840.1.822949.3.579.2 .462 Unknown [id number] 2.16.840.1.680872.3.579.2 .462 Unknown [id number] 2.16.840.1.790946.3.579.2 .462 Unknown [id number] 2.16.840.1.594042.3.579.2 .462 Social History Date Type Detail Facility Start: 01-01-2022 End: 12-25-2023 Assertion Unknown if ever smoked [facility] Work Phone: Start: 03-26-2023 End: 11-10-2024 Tobacco smoking status NHIS Ex-smoker [facility] Work Phone: Start: [birth year]10-1949 End: 10-10-1970 History of tobacco use Current smoker [facility] Start: [birth year]-10-1949 End: 10-10-1970 History of tobacco use Cigarette Smoker [facility] Start: 08-29-2021 End: 04-08-2025 Alcohol intake Current non-drinker of alcohol (finding) [facility] Start: 02-08-2016 End: 03-26-2023 Tobacco Comment quit 40 years ago [facility] Start: 02-07-1941 Sex Assigned At Male [facility] Start: 10-01-2021 End: 03-17-2022 Exposure to SARS-CoV-2 (event) Not sure [facility] Work Phone: Start: 12-27-2020 None [facility] Start: 11-24-2020 Spouse/ Signif icant Other [facility] Start: 12-27-2020 Non-smoker [facility] Work Phone: Start: 04-04-2022 Cigarettes [facility] Start: 09-21-2022 End: 03-26-2023 Cigarettes smoked current (pack per day) - Reported 1 [facility] Start: 03-26-2023 Tobacco use and exposure Smokeless tobacco non-user [facility] Start: 09-21-2022 End: 03-27-2024 Tobacco use panel [facility] Start: 07-28-2012 National Score (1-100), lower number is lower risk 66 [facility] Start: 03-20-2022 Gender identity Identifies as male gender (finding) [facility] Start: 11-07-2024 End: 12-18-2024 Sex Male (finding) [facility] Medical Equipment Procedure Code Equipment Code Equipment [...] carotid SUTURE,LIGA CLIP MED [id number] FDA Start: 08-11-2021 Endarterectomy, carotid SUTURE,LIGA CLIP [...] SUTURE,LIGA CLIP SM LT-100 FDA Start: 04-06-2021 Story Scientifi c ICD A209 Emblem FDA Start: 01-31-2016 Story Scientifi c ICD A209 Emblem FDA Start: 01-31-2016 Story Scientifi c ICD A209 Emblem FDA Start: 01-31-2016 Story Scientifi c ICD A209 Emblem FDA Start: 01-31-2016 Story Scientifi c ICD A209 Emblem FDA Start: 01-31-2016 Story Scientifi c ICD A209 Emblem FDA Start: 01-31-2016 Story Scientifi c ICD A209 Emblem FDA Start: 01-31-2016 Story Scientifi c ICD A209 Emblem FDA Start: 01-31-2016 Story Scientifi c ICD A209 Emblem FDA Start: 01-31-2016 Story Scientifi c ICD A209 Emblem FDA Start: 01-31-2016 Story Scientifi c ICD A209 Emblem FDA Start: 01-31-2016 Story Scientifi c ICD A209 Emblem FDA Start: 01-31-2016 Story Scientifi c ICD A209 Emblem FDA Start: 01-31-2016 Story Scientifi c ICD A209 Emblem FDA Start: 01-31-2016 Story Scientifi c ICD A209 Emblem FDA Start: 01-31-2016 Story Scientifi c ICD A209 Emblem FDA Start: 01-31-2016 Story Scientifi c ICD A209 Emblem FDA Start: 01-31-2016 Story Scientifi c ICD A209 Emblem FDA Start: 01-31-2016 Story Scientifi c generator change - new device Emblem A219 FDA Start: 03-17-2022 Story Scientifi c ICD generator change- new device A219 FDA Start: 01-31-2016 Story Scientifi c ICD A209 Emblem FDA Start: 01-31-2016 Story Scientifi c ICD A209 Emblem FDA Start: 01-31-2016 Story Scientifi c generator change - new device Emblem A219 FDA Start: 03-17-2022 Story Scientifi c ICD generator change- new device A219 FDA Start: 01-31-2016 Story Scientifi c ICD A209 Emblem FDA Start: 01-31-2016 Story Scientifi c ICD A209 Emblem FDA Start: 01-31-2016 Story Scientifi c generator change - new device Emblem A219 FDA Start: 03-17-2022 Story Scientifi c ICD generator change- new device A219 FDA Start: 01-31-2016 Story Scientifi c ICD A209 Emblem FDA Start: 01-31-2016 Story Scientifi c ICD A209 Emblem FDA Start: 01-31-2016 Story Scientifi c generator change - new device Emblem A219 FDA Start: 03-17-2022 Story Scientifi c ICD generator change- new device A219 FDA Start: 01-31-2016 Story Scientifi c ICD A209 Emblem FDA Start: 01-31-2016 Story Scientifi c ICD A209 Emblem FDA Start: 01-31-2016 Story Scientifi c generator change - new device Emblem A219 FDA Start: 03-17-2022 Story Scientifi c ICD generator change- new device A219 FDA Start: 01-31-2016 Story Scientifi c ICD A209 Emblem FDA Start: 01-31-2016 Story Scientifi c ICD A209 Emblem FDA Start: 01-31-2016 Story Scientifi c generator change - new device Emblem A219 FDA Start: 03-17-2022 Story Scientifi c ICD generator change- new device A219 FDA Start: 01-31-2016 Story Scientifi c ICD A209 Emblem FDA Start: 01-31-2016 Story Scientifi c ICD A209 Emblem FDA Start: 01-31-2016 Story Scientifi c generator change - new device Emblem A219 FDA Start: 03-17-2022 Story Scientifi c ICD generator change- new device A219 FDA Start: 01-31-2016 Story Scientifi c ICD A209 Emblem FDA Start: 01-31-2016 Story Scientifi c ICD A209 Emblem FDA Start: 01-31-2016 Story Scientifi c generator change - new device Emblem A219 FDA Start: 03-17-2022 Story Scientifi c ICD generator change- new device A219 FDA Start: 01-31-2016 Story Scientifi c ICD A209 Emblem FDA Start: 01-31-2016 Story Scientifi c ICD A209 Emblem FDA Start: 01-31-2016 Story Scientifi c generator change - new device Emblem A219 FDA Start: 03-17-2022 Story Scientifi c ICD generator change- new device A219 FDA Start: 01-31-2016 Story Scientifi c ICD A209 Emblem FDA Start: 01-31-2016 Story Scientifi c ICD A209 Emblem FDA Start: 01-31-2016 Story Scientifi c generator change - new device Emblem A219 FDA Start: 03-17-2022 Story Scientifi c ICD generator change- new device A219 FDA Start: 01-31-2016 Story Scientifi c ICD A209 Emblem FDA Start: 01-31-2016 Story Scientifi c ICD A209 Emblem FDA Start: 01-31-2016 Story Scientifi c generator change - new device Emblem A219 FDA Start: 03-17-2022 Story Scientifi c ICD generator change- new device A219 FDA Start: 01-31-2016 Story Scientifi c ICD A209 Emblem FDA Start: 01-31-2016 Story Scientifi c ICD A209 Emblem FDA Start: 01-31-2016 Story Scientifi c generator change - new device Emblem A219 FDA Start: 03-17-2022 Story Scientifi c ICD generator change- new device A219 FDA Start: 01-31-2016 Story Scientifi c ICD A209 Emblem FDA Start: 01-31-2016 Story Scientifi c ICD A209 Emblem FDA Start: 01-31-2016 Story Scientifi c generator change - new device Emblem A219 FDA Start: 03-17-2022 Story Scientifi c ICD generator change- new device A219 FDA Start: 01-31-2016 Story Scientifi c ICD A209 Emblem FDA Start: 01-31-2016 Story Scientifi c ICD A209 Emblem FDA Start: 01-31-2016 Story Scientifi c generator change - new device Emblem A219 FDA Start: 03-17-2022 Story Scientifi c ICD generator change- new device A219 FDA Start: 01-31-2016 Story Scientifi c ICD A209 Emblem FDA Start: 01-31-2016 Story Scientifi c ICD A209 Emblem FDA Start: 01-31-2016 Story Scientifi c generator change - new device Emblem A219 FDA Start: 03-17-2022 Story Scientifi c ICD generator change- new device A219 FDA Start: 01-31-2016 Story Scientifi c ICD A209 Emblem FDA Start: 01-31-2016 Story Scientifi c ICD A209 Emblem FDA Start: 01-31-2016 Story Scientifi c generator change - new device Emblem A219 FDA Start: 03-17-2022 Story Scientifi c ICD generator change- new device A219 FDA Start: 01-31-2016 Story Scientifi c ICD A209 Emblem FDA Start: 01-31-2016 Story Scientifi c ICD A209 Emblem FDA Start: 01-31-2016 Story Scientifi c generator change - new device Emblem A219 FDA Start: 03-17-2022 Story Scientifi c ICD generator change- new device A219 FDA Start: 01-31-2016 Story Scientifi c ICD A209 Emblem FDA Start: 01-31-2016 Story Scientifi c ICD A209 Emblem FDA Start: 01-31-2016 Story Scientifi c generator change - new device Emblem A219 FDA Start: 03-17-2022 Story Scientifi c ICD generator change- new device A219 FDA Start: 01-31-2016 Story Scientifi c ICD A209 Emblem FDA Start: 01-31-2016 Story Scientifi c ICD A209 Emblem FDA Start: 01-31-2016 Story Scientifi c generator change - new device Emblem A219 FDA Start: 03-17-2022 Story Scientifi c ICD generator change- new device A219 FDA Start: 01-31-2016 Story Scientifi c ICD A209 Emblem FDA Start: 01-31-2016 Story Scientifi c ICD A209 Emblem FDA Start: 01-31-2016 Story Scientifi c generator change - new device Emblem A219 FDA Start: 03-17-2022 Story Scientifi c ICD generator change- new device A219 FDA Start: 01-31-2016 Story Scientifi c ICD A209 Emblem FDA Start: 01-31-2016 Story Scientifi c ICD A209 Emblem FDA Start: 01-31-2016 Story Scientifi c generator change - new device Emblem A219 FDA Start: 03-17-2022 Story Scientifi c ICD generator change- new device A219 FDA Start: 01-31-2016 Story Scientifi c ICD A209 Emblem FDA Start: 01-31-2016 Story Scientifi c ICD A209 Emblem FDA Start: 01-31-2016 Story Scientifi c generator change - new device Emblem A219 FDA Start: 03-17-2022 Story Scientifi c ICD generator change- new device A219 FDA Start: 01-31-2016 Story Scientifi c ICD A209 Emblem FDA Start: 01-31-2016 Story Scientifi c ICD A209 Emblem FDA Start: 01-31-2016 Story Scientifi c generator change - new device Emblem A219 FDA Start: 03-17-2022 Story Scientifi c ICD generator change- new device A219 FDA Start: 01-31-2016 Story Scientifi c ICD A209 Emblem FDA Start: 01-31-2016 Story Scientifi c ICD A209 Emblem FDA Start: 01-31-2016 Story Scientifi c generator change - new device Emblem A219 FDA Start: 03-17-2022 Story Scientifi c ICD generator change- new device A219 FDA Start: 01-31-2016 Story Scientifi c ICD A209 Emblem FDA Start: 01-31-2016 Story Scientifi c ICD A209 Emblem FDA Start: 01-31-2016 Story Scientifi c generator change - new device Emblem A219 FDA Start: 03-17-2022 Story Scientifi c ICD generator change- new device A219 FDA Start: 01-31-2016 Story Scientifi c ICD A209 Emblem FDA Start: 01-31-2016 Story Scientifi c ICD A209 Emblem FDA Start: 01-31-2016 Story Scientifi c generator change - new device Emblem A219 FDA Start: 03-17-2022 Story Scientifi c ICD generator change- new device A219 FDA Start: 01-31-2016 Story Scientifi c ICD A209 Emblem FDA Start: 01-31-2016 Story Scientifi c ICD A209 Emblem FDA Start: 01-31-2016 Story Scientifi c generator change - new device Emblem A219 FDA Start: 03-17-2022 Story Scientifi c ICD generator change- new device A219 FDA Start: 01-31-2016 Story Scientifi c ICD A209 Emblem FDA Start: 01-31-2016 Story Scientifi c ICD A209 Emblem FDA Start: 01-31-2016 Story Scientifi c generator change - new device Emblem A219 FDA Start: 03-17-2022 Story Scientifi c ICD generator change- new device A219 FDA Start: 01-31-2016 Story Scientifi c ICD A209 Emblem FDA Start: 01-31-2016 Story Scientifi c ICD A209 Emblem FDA Start: 01-31-2016 Story Scientifi c generator change - new device Emblem A219 FDA Start: 03-17-2022 Story Scientifi c ICD generator change- new device A219 FDA Start: 01-31-2016 Story Scientifi c ICD A209 Emblem FDA Start: 01-31-2016 Story Scientifi c ICD A209 Emblem FDA Start: 01-31-2016 Story Scientifi c generator change - new device Emblem A219 FDA Start: 03-17-2022 Story Scientifi c ICD generator change- new device A219 FDA Start: 01-31-2016 Story Scientifi c ICD A209 Emblem FDA Start: 01-31-2016 Story Scientifi c ICD A209 Emblem FDA Start: 01-31-2016 Story Scientifi c generator change - new device Emblem A219 FDA Start: 03-17-2022 Story Scientifi c ICD generator change- new device A219 FDA Start: 01-31-2016 Story Scientifi c ICD A209 Emblem FDA Start: 01-31-2016 Story Scientifi c ICD A209 Emblem FDA Start: 01-31-2016 Story Scientifi c generator change - new device Emblem A219 FDA Start: 03-17-2022 Story Scientifi c ICD generator change- new device A219 FDA Start: 01-31-2016 Story Scientifi c ICD A209 Emblem FDA Start: 01-31-2016 Story Scientifi c ICD A209 Emblem FDA Start: 01-31-2016 Story Scientifi c generator change - new device Emblem A219 FDA Start: 03-17-2022 Story Scientifi c ICD generator change- new device A219 FDA Start: 01-31-2016 Goals Date Patient Goal Desired Activity /State Personal health goal Functional Status Date Assessment Result Facility 04-05-2022 Functional status Ambulates;Bath room Privilege [facility] Work Phone: 01-04-2022 Functional status Ambulates [facility] Work Phone: 01-22-2015 Are you deaf, or do you have serious difficulty hearing Yes 01/22/2015 8:08 AM Luz Gaytan RN Yes [facility] 01-22-2015 Are you blind, or do you have serious difficulty seeing, even when wearing glasses No 01/22/2015 8:08 AM Luz Gaytan RN No [facility] 01-22-2015 Do you have serious difficulty walking or climbing stairs No 01/22/2015 8:08 AM Luz Gaytan RN No [facility] 01-22-2015 Do you have difficul ty dressing or bathing No 01/22/2015 8:08 AM Luz Gaytan RN No [facility] 01-22-2015 Because of a physica l, mental, or emotional condition, do you have difficulty doing errands alone such as visiting a physician's office or shopping No 01/22/2015 8:08 AM Luz Gaytan RN No [facility] Mental Status Date Assessment Result Facility 11-10-2024 Cognitive function Level Of Cons ciousness Awake;Alert;Appropriate;Fol lows Commands [facility] Work Phone: 12-25-2023 Cognitive function Level Of Cons ciousness Awake;Alert;Appropriate [facility] Work Phone: 03-08-2023 Cognitive function Level Of Cons ciousness Awake;Alert;Appropriate;Fol lows Commands [facility] Work Phone: 04-05-2022 Cognitive function Voice/Name [facility] Work Phone: 04-02-2022 Cognitive function Level Of Cons ciousness Awake;Alert;Appropriate;Fol lows Commands [facility] Work Phone: 01-04-2022 Cognitive function Voice/Name [facility] Work Phone: 01-22-2015 Because of a physica l, mental, or emotional condition, do you have serious difficulty concentrating, remembering, or making decisions No 01/22/2015 8:08 AM Luz Gaytan RN No [facility] Clinical Notes 01-31-2016 to 04-08-2025 Patient [...] February 2022. Continue following up with the [facility] for regular monitoring, [...] at this time. documented in this encounter [facility] 04-08-2025 History of Present illness Narrative PRIMARY CARE PHYSICIAN: [address] [place] [address] Patient Care Team: Katherin Edge MD as PCP - General (Internal Medicine) Estrellita Tony V as Specialty Basic Acoustic Analyst (Internal Medicine) Marj Marcial CNP as Specialty Basic Acoustic Analyst (Family Medicine) Estrellita Soto MD as Specialty Basic Acoustic Analyst (Cardiology) Bunny Verdin MD as Specialty Basic Acoustic Analyst (Cardiology) Maribeth Mcfarlane MD as Specialty Basic Acoustic Analyst (Nephrology) CHIEF COMPLAINT: Follow up for arrhythmia, ICD HISTORY OF PRESENT ILLNESS: Mr. Recinos is a 84 year old male who presents today for a cardiovascular medicine follow-up visit. Recording using ambient AI software for draft documentation of the visit was discussed with the patient/authorized member services representative; all questions welcomed and answered. Patient/authorized member services representative agreed to proceed History from previous notes, edited as needed and/or generated by dictation with use of AI.: Patient Overview: Mr. Recinos has a history of nqz-ow-oeyforgv cardiac arrest that occurred in June 2015. A single-chamber transvenous ICD system was implanted via the left side of the chest in July 2015 for secondary prevention. In October 2015, the ICD system was extracted due to Enterococcus faecalis sepsis, and a subcutaneous ICD was implanted in January 2016. The ICD has been followed by [facility]. He underwent CABG [...] an 84-year-old male with a history of oqe-vx-iksfgzoo cardiac arrest, s/p CABG, and s/p subcutaneous ICD implantation, presenting for a follow-up visit. The patient reports no recent issues with his ICD, including no shocks or malfunctions. He denies experiencing any chest pain, dyspnea, or syncope. He has not undergone any recent surgeries and is reportedly on a "no surgery list" due to high risk. His medical history is significant for an afq-hg-shyrirmh cardiac arrest in 06/2015, followed by the [...] 2017. He is currently followed by the [facility], with home transmissions sent every Sunday (he states although this seems to be frequent, typically there are routine transmissions every 3 months). 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 He is currently taking atorvastatin [...] 10/2015 CAD (coronary artery disease) Cardiac arrest ([facility]) 07/23/2015: VF documented by EMS upon arrival, defibrillated with 200 Joules to achieve ROSC within 9 minutes of EMS being called Cardiomyopathy ([facility]) LVEF 35% by echo 11/03/2015 Chronic low back pain Chronic systolic heart failure ([facility]) CKD (chronic kidney disease) Complete left bundle [...] later a subcutaneous ICD implanted Ischemic cardiomyopathy salvage determiner current use of amiodarone previously Malfunction of [...] RV lead; indication: secondary prevention after SCD; [facility] Dr. Soto CABG (2) VEIN GRAFTS & ARTERIAL GRAFT(S 04/27/2017 L-LAD, SVG-OM; HARRY clip CARDIAC CATH 07/26/2015 CARDIOVERSION ELECTIVE ARRHYTHMIA INTERNAL SPX 05/11/2017 CCAG: Deyvi CAROTID ENDARTERECTOMY Left 11/2020 DEFIBRILLATOR SURGERY Left 11/05/2015 complete removal of single-chamber ICD system (ICD PG and RV lead); indication: recurrent bacteremia with evidence for endocarditis; [facility] Dr. Soto ECHO TRANSESOPHAG CONGEN PROBE [facility] IMG I&R 05/11/2017 CCAG: Deyvi ECHOCARDIOGRAM 11/03/2015 LVEF 35%; moderately severe MR; moderately severe TR EYELID SURGERY PROCEDURE Left 03/01/2022 HAND SURGERY HX Left amputation left hand PROSTATE SURGERY HX S-ICD IMPLANT Left 03/17/2022 [employer] subcutaneous ICD (S-ICD) generator change; [facility] Dr. Soto SUB-Q ICD IMPLANT TIER 1 Left 01/31/2016 reimplant of ICD after transvenous system extraction for infection 10/2015; subcutaneous ICD ([employer]); [facility] Dr. Soto UNLISTED PROCEDURE HUMERUS/ELBOW Left arm [...] SPRAY(S) IN EACH NOSTRIL TWICE DAILY vit A,C,M-Ttxi-Usccbm (OCUVITE PRESERVISION) 2,148 mcg-113 mg-45 mg-17.4mg tab [...] (FLONASE) 50 mcg/actuation nasal spray Use 1 [place] in each nostril once daily. Ascorbic Acid [...] Sinus rhythm 67 bpm; first-degree AV block (AK 260 ms); left bundle branch block (QRS duration 154 ms); QTc 473 ms Device Check: ICD is followed by [facility] I have personally reviewed the Electrocardiogram I spent a total of 30 minutes on the date of the service which included preparing to see the patient and care coordination (not separately reported). 1. Ischemic cardiomyopathy - ICD9: 414.8, ICD10: I25.5 (primary diagnosis) 2. 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ailure (HCC) - ICD9: 428.42, ICD10: I50.42 3. Atherosclerosis of [place] coronary artery of [place] heart without angina pectoris - ICD9: 414.01, [...] care physician next week. 2. Atherosclerosis of [place] coronary artery of [place] heart without angina pectoris (I25.10) Managed with [...] shocks or malfunctions reported. Device monitored by [facility] with weekly transmissions. - Continue regular ICD monitoring with [facility]. - Annual follow-up with panel machine setter. 4. Persistent atrial fibrillation (HCC) (I48.19) History [...] He will continue to follow up with [facility] under supervision of [facility]. I had a detailed discussion with Mr. Recinos regarding my evaluation and recommendations. After our discussion, Mr. Recinos expressed his understanding and I answered all his questions to his apparent satisfaction. Return in about 1 year (around 04/08/2026) for Dr. Soto, [place] office. Estrellita Soto MD 04/08/2025 Medical Decision [...] Drug use: No documented in this encounter [facility] 04-08-2025 Note HNO ID: [id number] Author: ESTRELLITA SOTO MD Service: ? Author Type: Physician Type: Progress Notes Filed: 04/09/2025 17:37 Note Text: PRIMARY CARE PHYSICIAN: [address] [place] [address] Patient Care Team: Katherin Edge MD as PCP - General (Internal Medicine) Estrellita Tony V as Specialty Basic Acoustic Analyst (Internal Medicine) Marj Marcial CNP as Specialty Basic Acoustic Analyst (Family Medicine) Estrellita Soto MD as Specialty Basic Acoustic Analyst (Cardiology) Bunny Verdin MD as Specialty Basic Acoustic Analyst (Cardiology) Maribeth Mcfarlane MD as Specialty Basic Acoustic Analyst (Nephrology) CHIEF COMPLAINT: Follow up for arrhythmia, ICD HISTORY OF PRESENT ILLNESS: Mr. Recinos is a 84 year old male who presents today for a cardiovascular medicine follow-up visit. Recording using [employer] software for draft documentation of the visit was discussed with the patient/authorized member services representative; all questions welcomed and answered. Patient/authorized member services representative agreed to proceed History from previous notes, edited as needed and/or generated by dictation with use of AI.: Patient Overview: Mr. Recinos has a history of kta-mu-ozkcubph cardiac arrest that occurred in June 2015. A single-chamber transvenous ICD system was implanted via the left side of the chest in July 2015 for secondary prevention. In October 2015, the ICD system was extracted due to Enterococcus faecalis sepsis, and a subcutaneous ICD was implanted in January 2016. The ICD has been followed by [facility]. He underwent CABG in [...] an 84-year-old male with a history of fiv-fh-xzweefez cardiac arrest, s/p CABG, and s/p subcutaneous ICD implantation, presenting for a follow-up visit. The patient reports no recent issues with his ICD, including no shocks or malfunctions. He denies experiencing any chest pain, dyspnea, or syncope. He has not undergone any recent surgeries and is reportedly on a "no surgery list" due to high risk. His medical history is significant for an utt-uv-nmrqolom cardiac arrest in 06/2015, followed by the [...] 2017. He is currently followed by the [facility], with home transmissions sent every Sunday (he states although this seems to be frequent, typically there are routine transmissions every 3 months). 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 He is currently taking atorvastatin [...] Enterococcus faecalis; tr (more content not included)... [facility] 01-21-2025 Evaluation note Diagnosis Onset Date Resolution Mild cognitive impairment acute January 21, 2025 7 :50am [facility] Work Phone: 1(955) 502-436703-27-2025 Radiology Diagnostic study note [facility] Imaging Services [address] [place] [address] [id number] Chest PA and Lateral MR#: [id number] Acct: [id number] Name: RACHNA RECINOS Rep #: [id number] 2 : 1940 M 84 From: Christiano Bobby MD PCP: Dr. Katherin Edge MD Status: REG CL I Study:Chest PA and Lateral Date of Exam: 11/19/24 Exam# [id number] Ordering Dr: Laurel Edge MD EXAM: X-ray chest PA and lateral [...] mild pulmonary edema, clinically correlate. Reading Location: [facility] CC: Dr. Katherin Edge MD ~ Activities Assistant: Signed [facility]03-17-2025 Discharge summary [facility] Medical Records Department [address] [place] [address] Emergency Department Summary 11/10/24 MR#: [id number] Acct: [id number] Name: RACHNA RECINOS Rep #:[id number] 3 : 1940 84 From: Gavi Crandall DO PCP: Dr. Katherin Edge MD Status:REG ER Location: ED ADDENDUM by [...] Cosigner Signature (if applicable): cc: Dr. Katherin Edge MD ~* Signed HPI History of Present [...] edema. Denies sick contacts. Denies chest pain. [facility] Medical History Spinal stenosis at L4-L5 level [...] (valve) prolapse Hypokalemia Atherosclerotic heart disease of round [place] coronary artery without angina pectoris Malignant pericardial [...] mcg/actuation mist for inhalation (Stiolto Respimat) vitamins A,C,G-pppc-ilywpp 2,148 2 tab PO BID 12/25/23 Unknown [...] wheezes noted bilaterally. No significant tachypnea. No sales professional bilingual muscle use or retractions. Effort and Inspection: [...] Qty: 90 3RF Primary Care Provider: Katherin Edge Referrals: Katherin Egde MD [Primary Care Provider] - Print Language: Korean What to do if you have Problems For any increased pain, shortness of breath, bleeding, nausea or vomiting, chestpain, or any unexpected problems, contact your Primary Care Provider. Call [facility] ([phone]) or report tothe closest Emergency Room. Call 911 if necessary. 11/10/24 0711 Cosigner Signature (if applicable): CC: Dr. Katherin Edge MD ~ Signed [facility]01-22-2025 Evaluation note* Diagnosis Onset Date Resolution Status Admit Date Bilateral carotid bruits acute September 17, 2024 1:47pm Atherosclerotic heart diseas e of [place] coronary artery without angina pectoris chronic September 17, 2024 1:47pm Chronic systolic (congestive ) heart failure chronic September 17 1:47pm Essential (primary) hypertension chronic September 17 1:47pm History of implantable cardiac defibrillator (ICD) March 17, 2022 chronic Paulino [email or web address] 1:47pm HLD (hyperlipidemia) chronic Paulino [email or web address] 1:47pm Paroxysmal atrial fibrillation chronic September 17 1:47pm Ischemic cardiomyopathy resolved J anuary 2024 1:47pm [facility] Work Phone: 1(391) 506-770908-01-2024 History of Present illness Narrative* Estrellita Soto MD - 03/27/2024 9:40 AM EDT PRIMARY CARE PHYSICIAN: Corin Hernandez MD ([facility]) [address] [facility] [address] [place] [address] Patient Care Team: Katherin Edge MD as PCP - General (Internal Medicine) Estrellita Tony V as Specialty Basic Acoustic Analyst (Internal Medicine) Marj Marcial CNP as Specialty Basic Acoustic Analyst (Family Medicine) Jayy Cancino MD as Specialty Basic Acoustic Analyst (Urology) Estrellita Soto MD as Specialty Basic Acoustic Analyst (Cardiology) Bunny Verdin MD as Specialty Basic Acoustic Analyst (Cardiology) Maribeth Mcfarlane MD as Specialty Basic Acoustic Analyst (Nephrology) CHIEF COMPLAINT: Follow up for arrhythmia, ICD HISTORY OF PRESENT ILLNESS: Mr. Recinos is a 83 year old male who presents today for a cardiovascular medicine follow-up visit. History copied from previous notes, edited as needed: Summary of previous notes: Mr. Recinos experienced mym-lx-gkhgbmrt cardiac arrest in 06/2015. An ICD was [...] The ICD has been [facility]. At some point in 2017 [...] patient and his No date: Anoxic encephalopathy (HCC) Comment: resolving 01/31/2016: Anticoagulant long-term use 10/2015: Bacteremia Comment: Enterococcus faecalis; recurrent despite antibiotic therapy 10/2015 No date: CAD (coronary artery disease) No date: Cardiac arrest (HCC) Comment: 07/23/2015: VF documented by EMS upon arrival, defibrillated with 200 Joules to achieve ROSC within 9 minutes of EMS being called No date: Cardiomyopathy ([facility]) Comment: LVEF 35% by echo 11/03/2015 No date: Chronic low back pain No date: Chronic systolic heart failure (HCC) No date: CKD (chronic kidney disease) No date: Complete left bundle branch block (LBBB) No date: COPD (chronic obstructive pulmonary disease) ([facility]) No date: Essential hypertension No date: GERD (gastroesophageal reflux disease) 04/27/2017: History of coronary artery bypass graft x 2 No date: History of sudden cardiac arrest successfully resuscitated Comment: initial rhythm documented by first responders after he arrested 07/23/2015; defibrillated successfully; s/p ICD implant; had ICD shock for VF in 01/2017 No date: Hypothyroidism 10/2015: Implanted cardiac defibrillator infection (HCC) Comment: 10/2015 Enterococcus faecalis; transvenous ICD system removed and later a subcutaneous ICD implanted No date: Ischemic cardiomyopathy No date: skilled nursing current use of amiodarone Comment: previously No date: Malfunction of implantable cardioverter-defibrillator (ICD) Comment: premature battery depletion No date: Malignant tumor of prostate ([facility]) No date: JOYCE (obstructive sleep apnea) Comment: prescribed C-PAP No date: Persistent atrial fibrillation ([facility]) No date: Pneumonia Comment: d/t aspiration No date: Presence of implantable cardioverter-defibrillator (ICD) Comment: single-chamber ICD (BSCI) 07/30/2015; indication: secondary prevention after SCD; system removed 11/05/2015 due to recurrent Enterococcus bacteremia with evidence for endocarditis; S-ICD implanted; shock for VF 01/2017 No date: Seizure ([facility]) No date: Transient cerebral ischemia Comment: generalized severe nonspecific cerebral dysfunction No date: Type II or unspecified type diabetes mellitus without mention of complication, not stated as uncontrolled No date: Ventricular fibrillation ([facility]) Comment: initial rhythm documented by first responders after he arrested 07/23/2015; defibrillated successfully; s/p ICD implant; had ICD shock for VF in 01/2017 PAST SURGICAL HISTORY No date: APPENDECTOMY 07/30/2015: BASIC ICD SINGLE CHAMBER; Left Comment: single-chamber ICD (BSCI) single coil RV lead; indication: secondary prevention after SCD; [facility] Dr. Soto 04/27/2017: CABG (2) VEIN GRAFTS & ARTERIAL GRAFT(S Comment: L-LAD, SVG-OM; HARRY clip 07/26/2015: CARDIAC CATH 05/11/2017: CARDIOVERSION ELECTIVE ARRHYTHMIA INTERNAL SPX Comment: CCAG: Deyvi 11/2020: CAROTID ENDARTERECTOMY; Left 11/05/2015: DEFIBRILLATOR SURGERY; Left Comment: complete removal of single-chamber ICD system (ICD PG and RV lead); indication: recurrent bacteremia with evidence for endocarditis; [facility] Dr. Soto 05/11/2017: ECHO TRANSESOPHAG CONGEN PROBE [facility] IMGNG I&R Comment: CCAG: Deyvi 11/03/2015: ECHOCARDIOGRAM Comment: LVEF 35%; moderately severe MR; moderately severe TR 03/01/2022: EYELID SURGERY PROCEDURE; Left No date: HAND SURGERY HX; Left Comment: amputation left hand No date: PROSTATE SURGERY HX 03/17/2022: S-ICD IMPLANT; Left Comment: [employer] subcutaneous ICD (S-ICD) generator change; [facility] Dr. Soto 01/31/2016: SUB-Q ICD IMPLANT TIER 1; Left Comment: reimplant of ICD after transvenous system extraction for infection 10/2015; subcutaneous ICD ([employer]); [facility] Dr. Soto No date: UNLISTED PROCEDURE HUMERUS/ELBOW; [...] SPRAY(S) IN EACH NOSTRIL TWICE DAILY vit A,C,J-Xlxu-Bsnxnf (OCUVITE PRESERVISION) 2,148 mcg-113 mg-45 mg-17.4mg tab [...] (FLONASE) 50 mcg/actuation nasal spray Use 1 [place] in each nostril once daily. Ascorbic Acid [...] Sinus rhythm 81 bpm; first-degree AV block (AK 252 ms); PACs; nonspecific IVCD (QRS 150 ms); possible lateral infarct pattern; QTc 506 ms Device Check: [facility] manages the ICD I have personally reviewed the Electrocardiogram and Device Check. I spent a total of 30 minutes on the date of the service which included preparing to see the patient, qdql-zv-ozhr patient care, completing clinical documentation, obtaining and/or [...] The ICD is followed and managed by [facility]. He was previously on Eliquis for stroke prevention from atrial fibrillation, but is no longer on it. I suspect this is due to unfavorable risk:benefit. I will leave this issue to the [facility] and PCP --- it seems that it was stopped in 2021 after the ICD generator change. PLAN AND RECOMMENDATIONS: Continue with current plan of care from EP standpoint. He will continue to follow up with [facility] under supervision of [facility]. Return in about 1 year (around 03/27/2025) for PIO [place] or [place] office. Estrellita Soto MD 03/27/2024 Medical Decision Making: Problems: Moderate: 2+ stable chronic illnesses Data: Unique source(s) for external note(s) reviewed: 1 Unique test result(s) reviewed: 2 Unique test(s) ordered: 1 Risk: Moderate: Moderate risk from testing/treatment and Drug management Medical Decision Making Level: 4 - Moderate [facility] Nurse Note* Esperanza Wheeler MA - 03/27/2024 9:32 AM EDT Patient has no cardiac complaints today. Esperanza Wheeler CHROME POLISHER [facility]08-01-2024 Nurse Note* Esperanza Wheeler MA - 03/27/2024 9:32 AM EDT Patient has no cardiac complaints today. Esperanzaosvaldo Wheeler CHROME POLISHER documented in this encounterHocking Valley [facility]01-16-2024 Discharge summary Author Shanna Haskins [facility] September 11, 2023 9:56am Note Date/Time September 11, 2023 9 :56am [facility] Physical Therapy [facility] [address] [place] [address] [address] [place] [address] / REHABILITATION SERVICES DISCHARGE SUMMARY MR#: [id number] Acct: [id number] Name: RACHNA RECINOS Rep #: [id number] 3 : 1940 82 From: Shanna Haskins PT, Cert. MDT Referring Dr.: Dr. Ken Drummond MD Status : REG R Insurance: MEDICARE PART A B [employer] Discharge [...] endurance and aerobic conditioning Sit to stand: [id number] across chest +foam Lateral walks at counter: [...] 4:: INDEP HEP AND H&W PROGRAM W/SILVER [employer] Goal Progress: Goal Met Plan Plan: D/C TO INDEP EX. PATIENT AGREEABLE. D/C Information d/c sentence: If there are questions or concerns regarding this patient's physical therapy, please feel free to call me at [phone]. Thank you for the referral of thispatient. Sincerely, Shanna Haskins, PT, Cert MDT Balance/Gait/Functional tests Balance/Special Test Scores Oswestry Low Back Score: 0 Improvement % Improvement: 70 <Electronically signed by Shanna Haskins PT, Cert. MDT> 09/11/23 0956 CC: Dr. Corin Hernandez MD; Dr. Ken Drummond MD ~ SCOTT Signed [facility] Work Phone: 1(586) 741-638207-29-2022 Nurse Note* Diana Garner RN - 03/24/2022 10:15 AM EDT Spoke with spouse and patient via phone, patient indicated the incision is closed and steri strips intact. Denies drainage or bleeding, denies redness denies fever or chills. Reviewed post device restrictions with patient who voiced understanding. Diana Garner RN documented in this encounterHocking [facility]07-22-2022 Evaluation note* Diagnosis Onset Date Resolution Status Chronic systolic (congestive) heart failure chronic History of implantable cardi ac defibrillator (ICD) March 17, 2022 chronic Left bundle branch block chr onic Paroxysmal atrial fibrillation chronic Ischemic cardiomyopathy reso lved Bilateral carotid bruits acu te Atherosclerotic heart diseas e of [place] coronary artery without angina pectoris chronic Chronic systolic (congestive) heart failure chronic Essential (primary) hypertension chronic History of implantable cardi ac defibrillator (ICD) March 17, 2022 chronic HLD (hyperlipidemia) chronic Paroxysmal atrial fibrillation chronic Ischemic cardiomyopathy reso lved Bilateral carotid bruits acu te Atherosclerotic heart diseas e of [place] coronary artery without angina pectoris chronic Chronic [...] atrial fibrillation chronic Ischemic cardiomyopathy reso lved [facility] Work Phone: 1(566) 892-525407-22-2022 Evaluation note* Diagnosis Onset Date Resolution Status Chronic systolic (congestive) heart failure chronic History of implantable cardi ac defibrillator (ICD) March 17, 2022 chronic Left bundle branch block chr onic Ischemic cardiomyopathy reso lved [facility] Work Phone: 1(779) 586-792607-22-2022 Evaluation note* Diagnosis Onset Date Resolution Status Muscle strain acute Chronic systolic (congestive) heart failure chronic History of implantable cardi ac defibrillator (ICD) Susannah 22nd, 2022 chronic Left bundle branch block chr onic Paroxysmal atrial fibrillation chronic Ischemic cardiomyopathy reso lved Bilateral carotid bruits acu te Atherosclerotic heart diseas e of [place] coronary artery without angina pectoris chronic Chronic [...] 17, 2022 chronic Ischemic cardiomyopathy reso lved [facility] Work Phone: 1(715) 630-231107-22-2022 Evaluation note* Diagnosis Onset Date Resolution Status Muscle strain acute Chronic systolic (congestive) heart failure chronic History of implantable cardi ac defibrillator (ICD) March 17, 2022 chronic Left bundle branch block chr onic Paroxysmal atrial fibrillation chronic Ischemic cardiomyopathy reso lved Bilateral carotid bruits acu te Atherosclerotic heart diseas e of [place] coronary artery without angina pectoris chronic Chronic [...] acute Herniated nucleus pulposus, L3-4 left acute [facility] Work Phone: 1(215) 148-522607-22-2022 Evaluation note* Diagnosis Onset Date Resolution Status Chronic systolic (congestive) heart failure chronic Essential (primary) hypertension chronic History of implantable cardi ac defibrillator (ICD) March 17, 2022 chronic Ischemic cardiomyopathy reso lved Herniated nucleus pulposus, L3-4 left acute Herniated nucleus pulposus, L3-4 left acute [facility] Work Phone: 1(397) 530-207407-22-2022 Miscellaneous Notes* Telephone Encounter - Emmy Mendez [...] resuming his regular ICD follow up with [facility]. Estrellita Soto MD March 17, 2022 12:01 PM documented in this encounterHocking [facility]07-18-2022 Miscellaneous Notes* Telephone Encounter - Marlee Holland RN - 03/13/2022 1:37 PM EDT Pt's name has been added to good procedure board. Marlee Holland RN * Telephone Encounter - Emmy Mendez - 03/13/2022 12:31 PM EDT Patient is scheduled for an SICD gen change on 03/17/[address] Soto. The hospital will call the day before between 2-5pm with your arrival time. Patient should not eat or drink after midnight the day before the procedure. 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 Patient should continue to take medications as prescribed the morning of the procedure with just a sip of water but hold Eliquis 2 days prior to the procedure. Spoke with patients and she verbalized understanding of all instructions Emmy Mendez documented in this encounterHocking Valley [facility] Hospital07-14-2022 History of Past illness Narrative* Problem Noted Date Resolved Date ICD (implantable cardioverte r-defibrillator) battery depletion 03/09/2022 03/17/2022 Cardiac arrest 03/07/2016 05/31/2016 Cardiac arrest 07/05/2019 Overview: 07/23/2015: VF documented by EMS upon arrival, defibrillated with 200 Joules to achieve ROSC within 9 minutes of EMS being called skilled nursing current use of amiodarone 09/11/2019 documented as of this encounter (statuses as of 03/17/2022) [facility]07[facility] History of Past illness Narrative* Problem Noted Date Resolved Date ICD (implantable cardioverte r-defibrillator) battery depletion 03/09/2022 03/17/2022 Cardiac arrest 03/07/2016 05/31/2016 Cardiac arrest 07/05/2019 Overview: 07/23/2015: VF documented by EMS upon arrival, defibrillated with 200 Joules to achieve ROSC within 9 minutes of EMS being called skilled nursing current use of amiodarone 09/11/2019 documented as of this encounter (statuses as of 03/24/2022) [facility]03-29-[facility] NotePatient Outreach (BOUBACAR) RACHNA RECINOS ([id number]) 1940 M NFR Date Time Provider Department [...] meds Date Reviewed: 11/22/2021 Reviewed by: Mariama N Luther, MA - Fully Assessed Visit Diagnosis:Renal calculi [N20.0] Order(s):URINALYSIS, REFLEX MICROSCOPIC [[id number]] Order #: [id number]. #:[id number] Prescriptions as of 11/25/2021 - mometasone (ASMANEX [...] (FLONASE) 50 mcg/actuation nasal spray Use 1 [place] in each nostril once daily. 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] 04/27/2017 Anemia of renal disease [N18.9, D63.1] 01/23/2018 Chronic renal insufficiency, stage III (moderat*01/23/2018 Streptococcus infection, group D enterococcus [*11/15/2015 Family history of cerebrovascular accident (CVA*01/23/2018 History of bacterial endocarditis [Z86.79] 11/15/2015 History of malignant neoplasm of prostate [Z85.*08/27/2002 Current use of custodial anticoagulation [Z79.0*01/31/2016 skilled nursing (current) use of antithrombotics/anti*07/15/2017 salvage determiner (current) (more content not included)...[facility] 11-22-2021 NoteHNO ID: [id number] Author: Jayy Cancino MD Service: ? Author [...] Cancino MD, FACS Director, Surgical Stone Disease, [facility] [place] weaving professor, [employer] [facility] [employer] Pager [phone] 11/22/2021[facility]03-29-2022 History of Present illness Narrative* Jayy Cancino [...] Cancino MD, FACS Director, Surgical Stone Disease, [facility]ic [place] weaving professor, [employer] [employer] Pager [phone] 11/22/2021 [facility]22 NoteHNO ID: [id number] Author: Jessica Andre RDMS Service: ? Author Type: Rn Neurosurgical Type: Progress Notes Filed: 11/18/2021 11:00 AM [...] Andre RDMS RVT November 18, 2021 11:00 [facility]03-25-2022 NoteHNO ID: [id number] Author: RT Min(Robi) Service: ? Author Type: [...] BY: RT Min(R) November 18, 2021 9:52 [facility]03-25-2022 History of Present illness Narrative* Jessica [...] 18, 2021 11:00 AM documented in this encounterH[facility]03-[facility]22 History of Present illness Narrative* RT [...] 18, 2021 9:52 AM documented in this encounterH[facility]04-20-2021 NotePatient Outreach (UROLMN) SUGEYRACHNA Franck ([id number]) 1940 M NFR Date Time Provider Department [...] Date Reviewed: 12/14/2020 Reviewed by: Mariama Padgett ([facility]) KELSEA Sloan - Fully Assessed Visit Diagnosis:Screening for genitourinary condition [Z13.89] Order(s):URINALYSIS, DIPSTICK ONLY [SQUA] Order #: [id number]. 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] 04/27/2017 Anemia of renal disease [N18.9, D63.1] 01/23/2018 Chronic renal insufficiency, stage III (moderat*01/23/2018 Streptococcus infection, group D enterococcus [*11/15/2015 Family history of cerebrovascular accident (CVA*01/23/2018 History of bacterial endocarditis [Z86.79] 11/15/2015 History of malignant neoplasm of prostate [Z85.*08/27/2002 Current use of custodial anticoagulation [Z79.0*01/31/2016 skilled nursing (current) use of antithrombotics/anti*07/15/2017 skilled nursing (current) use of oral hypoglycemic dr*07/15/2017 skilled nursing current use of insulin (HCC) [Z79.4] 04/27/2017 Chronic low back pain [M54.5, G89.29] 01/31/2016 salvage determiner current use of amiodarone [Z79.899] 09/11/2019 Elevated serum creatinine [R79.89] 03/28/2018 At risk for stroke [Z91.89] 09/11/2019 Encounter Status:Closed by [employer], PRODUSER on 12/17/20[facility] 12-14-2020 NoteHNO ID: [id number] Author: Jayy Cancino Service: ? Author Type: [...] Cancino MD, FACS Director, Surgical Stone Disease, [facility] Urologic [place] weaving professor, [employer] [employer] Pager [phone] 12/14/2020[facility]04-16-2021 NoteHNO ID: [id number] Author: Betty Briscoe (Susan Ball Service: Radiology Author Type: Specialty Department Supervisor Type: Progress Notes Filed: 12/10/2020 10:37 AM [...] BY: RT Charlene December 10, 2020 10:37 [facility]07-12-2016 History of Past illness Narrative* Problem Noted Date Resolved Date Cardiac arrest 03/07/2016 05/31/2016 Cardiac arrest 07/05/2019 Overview: 07/23/2015: VF documented by EMS upon arrival, defibrillated with 200 Joules to achieve ROSC within 9 minutes of EMS being called skilled nursing current use of amiodarone 09/11/2019 documented as of this encounter (statuses as of 11/22/2021) [facility] History of Past illness Narrative* Problem Noted Date Resolved Date Cardiac arrest 03/07/2016 05/31/2016 Cardiac arrest 07/05/2019 Overview: 07/23/2015: VF documented by EMS upon arrival, defibrillated with 200 Joules to achieve ROSC within 9 minutes of EMS being called salvage determiner current use of amiodarone 09/11/2019 documented as of this encounter (statuses as of 11/25/2021) [facility] History of Past illness Narrative* Problem Noted Date Resolved Date Cardiac arrest 03/07/2016 05/31/2016 Cardiac arrest 07/05/2019 Overview: 07/23/2015: VF documented by EMS upon arrival, defibrillated with 200 Joules to achieve ROSC within 9 minutes of EMS being called salvage determiner current use of amiodarone 09/11/2019 documented as of this encounter (statuses as of 11/19/2021) [address]12-2016 History of Past illness Narrative* Problem Noted Date Resolved Date Cardiac arrest 03/07/2016 05/31/2016 Cardiac arrest 07/05/2019 Overview: 07/23/2015: VF documented by EMS upon arrival, defibrillated with 200 Joules to achieve ROSC within 9 minutes of EMS being called salvage determiner current use of amiodarone 09/11/2019 documented as of this encounter (statuses as of 11/19/2021) [facility] History of Past illness Narrative* Problem Noted Date Resolved Date Cardiac arrest 03/07/2016 05/31/2016 Cardiac arrest 07/05/2019 Overview: 07/23/2015: VF documented by EMS upon arrival, defibrillated with 200 Joules to achieve ROSC within 9 minutes of EMS being called salvage determiner current use of amiodarone 09/11/2019 documented as of this encounter (statuses as of 03/13/2022) [facility] Evaluation note* Diagnosis Onset Date Resolution Status Atherosclerotic heart diseas e of [place] coronary artery without angina pectoris chronic Essential [...] Abdominal pain acute Hypoxia acute CHF exacerbation [facility] Work Phone: 1(707) 950-185706-06-2016 Evaluation note* Diagnosis Onset Date Resolution Status Atherosclerotic heart diseas e of [place] coronary artery without angina pectoris chronic Essential [...] pain acute SILKE (acute kidney injury) ac jodi Diverticulitis acute Hypoxia acute CHF exacerbation chronic CKD (chronic kidney disease) stage 3, GFR 30-59 ml/min [facility] Work Phone: 1(372) 494-446906-06-2016 Evaluation note* Diagnosis Onset Date Resolution Status Atherosclerotic heart diseas e of [place] coronary artery without angina pectoris chronic Essential [...] CHF exacerbation resolved Diverticulitis resolved Hypoxia resolved [facility] Work Phone: 1(640) 398-224806-06-2016 Evaluation note* Diagnosis Onset Date Resolution Status Chronic systolic (congestive) heart failure chronic History of implantable cardiac defibrillator (ICD) Jan chronic Left bundle branch block chr onic Paroxysmal atrial fibrillation chronic Ischemic cardiomyopathy reso lved Abdominal pain resolved SILKE (acute kidney injury) re solved CHF exacerbation resolved Diverticulitis resolved Hypoxia resolved Atherosclerotic heart diseas e of [place] coronary artery without angina pectoris chronic Essential (primary) hypertension chronic History of implantable cardiac defibrillator (ICD) Jan chronic HLD (hyperlipidemia) chronic Paroxysmal atrial fibrillation chronic Ischemic cardiomyopathy reso lved [facility] Work Phone: 1(912) 438-999406-06-2016 Evaluation note* Diagnosis Onset Date Resolution Status Chronic systolic (congestive) heart failure chronic History of implantable cardiac defibrillator (ICD) Jan chronic Left bundle branch block chr onic Paroxysmal atrial fibrillation chronic Ischemic cardiomyopathy reso lved Abdominal pain resolved SILKE (acute kidney injury) re solved CHF exacerbation resolved Diverticulitis resolved Hypoxia resolved Atherosclerotic heart diseas e of [place] coronary artery without angina pectoris chronic Essential (primary) hypertension chronic History of implantable cardiac defibrillator (ICD) Jan chronic HLD (hyperlipidemia) chronic Paroxysmal atrial fibrillation chronic Ischemic cardiomyopathy reso lved Chronic systolic (congestive) heart failure chronic History of implantable cardiac defibrillator (ICD) Jan chronic Left bundle branch block chr onic Paroxysmal atrial fibrillation chronic Ischemic cardiomyopathy reso lved Atherosclerotic heart diseas e of [place] coronary artery without angina pectoris chronic Chronic systolic (congestive) heart failure chronic Essential (primary) hypertension chronic History of implantable cardiac defibrillator (ICD) Jan chronic HLD (hyperlipidemia) chronic Paroxysmal atrial fibrillation chronic Ischemic cardiomyopathy reso lved [facility] Work Phone: 1(125) 592-311606-06-2016 Evaluation note* Diagnosis Onset Date Resolution Status Chronic systolic (congestive) heart failure chronic History of implantable cardiac defibrillator (ICD) Jan chronic Left bundle branch block chr onic Paroxysmal atrial fibrillation chronic Ischemic cardiomyopathy reso lved Abdominal pain resolved SILKE (acute kidney injury) re solved CHF exacerbation resolved Diverticulitis resolved Hypoxia resolved Bilateral carotid bruits acu te Atherosclerotic heart diseas e of [place] coronary artery without angina pectoris chronic Essential (primary) hypertension chronic History of implantable cardiac defibrillator (ICD) Jan chronic HLD (hyperlipidemia) chronic Paroxysmal atrial fibrillation chronic Ischemic cardiomyopathy reso lved Chronic systolic (congestive) heart failure chronic History of implantable cardiac defibrillator (ICD) Jan chronic Left bundle branch block chr onic Paroxysmal atrial fibrillation chronic Ischemic cardiomyopathy reso lved Atherosclerotic heart diseas e of [place] coronary artery without angina pectoris chronic Chronic [...] acu te Atherosclerotic heart diseas e of [place] coronary artery without angina pectoris chronic Chronic systolic (congestive) heart failure chronic Essential (primary) hypertension chronic History of implantable cardiac defibrillator (ICD) Jan chronic HLD (hyperlipidemia) chronic Paroxysmal atrial fibrillation chronic Ischemic cardiomyopathy reso lved [facility] Work Phone: Discharge summary Author Vineet Wright [facility] March 08, 2023 11:25am Note Date/Time March 08, 2023 11:1 8am [facility] Medical Records Department [address] [place] [address] Emergency Department Summary 03/08/23 MR#: [id number] Acct: [id number] Name: RACHNA RECINOS Rep #:[id number] : 1940 82 From: Vineet Wright [...] 5 bouts per day noblood or melena. [facility] Medical History 65 years of age or older Anemia Atherosclerotic heart disease of [place] coronary artery without angina pectoris Atrial fibrillation [...] 73.9 H Lymph % (Auto) 14.6 L [place] % (Auto) 8.6 Eos % (Auto) 1.7 [...] Hernandez MD [Primary Care Provider] - Katherin Edge MD [Med Staff - Pool Manager] - Keep Lesvia appointment Disposition Disposition: Home, Self Care What to do if you have Problems For any increased pain, shortness of breath, bleeding, nausea or vomiting, chestpain, or any unexpected problems, contact your Primary Care Provider. Call [facility] ([phone]) or report to the closest Emergency Room. Call 911 if necessary. 03/08/23 1125 <Electronically signed by Vineet Wright MD> Cosigner Signature (if applicable): CC: Dr. Corin Hernandez MD; Dr. Katherin Edge MD ~ Signed [facility] Work Phone: Discharge summary Author Vineet Wright [facility] December 25, 2023 1:04am Note Date/Time December 25, 2023 12: 27am [facility] Medical Records Department [address] [place] [address] Emergency Department Summary 12/25/23 MR#: [id number] Acct: [id number] Name: RACHNA RECINOS Rep #:[id number] : 1940 83 From: Vineet Wright MD PCP: Dr. Katherin Edge MD Status:REG ER Location: ED HPI History [...] feels fine. No recent illness. No vomiting. [facility] Medical History 65 years of age or older Anemia Atherosclerotic heart disease of [place] coronary artery without angina pectoris Atrial fibrillation [...] DAILY 12/25/23 [History Last Taken Unknown] vitamins A,C,L-auvh-xzvudy 2,148 mcg-113 mg-45 mg-17.4 mg tablet (Eye [...] Qty: 180 3RF Primary Care Provider: Katherin Edge Referrals: Katherin Edge MD [Primary Care Provider] - As Needed Disposition Disposition: Home, Self Care What to do if you have Problems For any increased pain, shortness of breath, bleeding, nausea or vomiting, chestpain, or any unexpected problems, contact your Primary Care Provider. Call [facility] ([phone]) or report to the closest Emergency Room. Call 911 if necessary. 12/25/23 0104 <Electronically signed by Vineet Wright MD> Cosigner Signature (if applicable): CC: Dr. Katherin Edge MD ~ Signed [facility] Work Phone: Discharge summary Author Gavi Crandall [facility] Note Date/Time November 10, 2024 7:5 8am [facility] Medical Records Department [address] [place] [address] Emergency Department Summary 11/10/24 MR#: [id number] Acct: [id number] Name: RACHNA RECINOS Rep #:[id number] : 1940 84 From: Gavi Crandall DO PCP: Dr. Katherin Edge MD Status:REG ER Location: ED ADDENDUM by Dr. Romeo Medeiros DO on 11/10/24 at 0757 Patient was turned over to nh by Dr. Terrell@ 0715 Brief history: 84-year-old [...] Cosigner Signature (if applicable): cc: Dr. Katherin Edge MD ~* Signed HPI History of Present [...] edema. Denies sick contacts. Denies chest pain. [facility] Medical History Spinal stenosis at L4-L5 level [...] (valve) prolapse Hypokalemia Atherosclerotic heart disease of [place] coronary artery without angina pectoris Malignant pericardial [...] mcg/actuation mist for inhalation (Stiolto Respimat) vitamins A,C,Z-ebin-whoqxk 2,148 2 tab PO BID 12/25/23 Unknown [...] wheezes noted bilaterally. No significant tachypnea. No sales professional bilingual muscle use or retractions. Effort and Inspection: [...] Qty: 90 3RF Primary Care Provider: Katherin Edge Referrals: Katherin Edge MD [Primary Care Provider] - Print Language: Korean What to do if you have Problems For any increased pain, shortness of breath, bleeding, nausea or vomiting, chestpain, or any unexpected problems, contact your Primary Care Provider. Call [facility] ([phone]) or report to the closest Emergency Room. Call 911 if necessary. 11/10/24 0711 <Electronically signed by Gavi Crandall DO> Cosigner Signature (if applicable): CC: Dr. 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 diarrhea Diarrhea [facility] Diagnosis Renal calculi Calculus of kidney [facility]* Diagnosis Renal calculi Calculus of kidney Renal cyst Unspecified congenital cystic kidney disease [facility] Diagnosis Visit for wound check- Primary Encounter for other specified aftercare [facility]* Diagnosis Onset Date Resolution Status Abdominal pain resolved SILKE (acute kidney injury) re solved CHF exacerbation resolved Diverticulitis resolved Hypoxia resolved Bilateral carotid bruits acu te Atherosclerotic heart diseas e of [place] coronary artery without angina pectoris chronic Essential [...] reso lved Atherosclerotic heart diseas e of [place] coronary artery without angina pectoris chronic Chronic [...] acu te Atherosclerotic heart diseas e of [place] coronary artery without angina pectoris chronic Chronic systolic (congestive) heart failure chronic Essential (primary) hypertension chronic History of implantable cardi ac defibrillator (ICD) March 17, 2022 chronic HLD (hyperlipidemia) chronic Paroxysmal atrial fibrillation chronic Ischemic cardiomyopathy reso lved Bilateral carotid bruits acu te Atherosclerotic heart diseas e of [place] coronary artery without angina pectoris chronic Chronic systolic (congestive) heart failure chronic Essential (primary) hypertension chronic History of implantable cardi ac defibrillator (ICD) March 17, 2022 chronic HLD (hyperlipidemia) chronic Paroxysmal atrial fibrillation chronic Ischemic cardiomyopathy reso lved Diabetes acute Vertigo acute Hypertension chronic [facility] Work Phone: Evaluation note* Diagnosis Onset Date Resolution Status Bilateral carotid bruits acu te Atherosclerotic heart diseas e of [place] coronary artery without angina pectoris chronic Chronic [...] atrial fibrillation chronic Ischemic cardiomyopathy reso lved [facility] Work Phone: Evaluation note* Diagnosis Onset Date Resolution Status Bilateral carotid bruits acu te Atherosclerotic heart diseas e of [place] coronary artery without angina pectoris chronic Chronic [...] block chr onic Ischemic cardiomyopathy reso lved [facility] Work Phone: Evaluation noteNo assessment information available [facility] Work Phone: Evaluation note* Diagnosis Onset Date Resolution Status Muscle strain acute [facility] Work Phone: Evaluation note* Diagnosis Onset Date Resolution Status Herniated nucleus pulposus, L3-4 left acute [facility] Work Phone: Evaluation note* Diagnosis Ischemic cardiomyopathy- [...] associated with anticoagulants [facility] Diagnosis Ischemic cardiomyopathy- Primary Other specified forms of chronic ischemic heart disease 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 Continue to stretch and heat the area and continue Tylenol and return to the ER should you have any further concerns.[facility] Work Phone: Hospital Discharge instructions Additional Instructions [...] care physician for further outpatient evaluation and management.[facility] Work Phone: Reason for referral (narrative)* Diagnostic Procedure Only (Routine) - Pending Review Specialty Diagnoses / Procedures Referred By Contac t Referred To Contact XR IMAGING Diagnoses Renal calculi Procedures XR ABDOMEN 3V KUB W/OBLIQUES RADIOLOGIC EXAM ABDOMEN 3+ VIEWS [facility]ancino [facility] [address] [facility] [place] [id number] Xr Imaging Referral ID Status Reason Start Date Expiration Date Visits Requested Visits Authorized [id number] Pending Review Auto-Generat ed Referral 11/22/2021 12/22/2022 1 1 * Diagnostic Procedure Only (Routine) - Pending Review Specialty Diagnoses / Procedures Referred By Contac t Referred To Contact US IMAGING Diagnoses Renal calculi Renal cyst Procedures US KIDNEY/BLADDER US RETROPERITONEAL REAL TIME W/IMAGE COMPLETE Jayy Cancino MD [address] [place] [id number] Us Imaging Referral ID Status Reason Start Date Expiration Date Visits Requested Visits Authorized [id number] Pending Review Auto-Generat ed Referral 11/22/2021 12/22/2022 1 1 [facility] for referral (narrative)No reason for referral information availableWAdena [facility] Work Phone: Summary Purpose Family History No Family History Records Found Relationship Condition Age at Onset Recorded Date/T sachin father Peritonitis Unknown mother Cerebrovascular accident (CVA) Unknown Advance Directives No Advanced Directives Records FoundDocuments on File Type Date Recorded 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 Advance Directive(s) 05/31/2017 9:40 AM Documents on File Type Date Recorded 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 Advance Directive(s) 05/31/2017 9:40 AM Advance Directive Response Recorded Date/ Time Advance Directives Yes November 08 10:31pm Living Will Yes January 01, 2022 4: 39pm Power of Events Intern Yes January 01, 2022 4:39pm Advance Directive Response Recorded Date/ Time Advance Directives Yes November 08 10:31pm Living Will Yes January 01, 2022 10 :16pm Power of Events Intern Yes January 01, 2022 10:16pm Advance Directive Response Recorded Date/ Time Name of Medical Power of Events Intern Galina Recinos January 01, 2022 10:16pm Advance Directives Yes November 08 10:31pm Living Will Yes January 24, 2022 1 :42pm Power of Events Intern Yes January 24, 2022 1:42pm Advance Directive Response Recorded Date/ Time Name of Medical Power of Events Intern Galina Recinos January 01, 2022 10:16pm Name of Medical Power of Events Intern Galina Recinos January 24, 2022 1:42pm Advance Directives Yes November 08 10:31pm Living Will Yes January 24, 2022 1 :42pm Power of Events Intern Yes January 24, 2022 1:42pm Advance Directive Response Recorded Date/ Time Name of Medical Power of Events Intern Galina Recinos January 01, 2022 10:16pm Name of Medical Power of Events Intern Galina Recinos January 24, 2022 1:42pm Advance Directives Yes November 08 10:31pm Living Will No April 02, 2022 9:21am Power of Events Intern No April 02 9:21am Advance Directive Response Recorded Date/ Time Name of Medical Power of Events Intern Galina Recinos January 01, 2022 10:16pm Name of Medical Power of Events Intern Galina Recinos January 24, 2022 1:42pm Name of Medical Power of Events Intern galina Recinos April 02, 2022 11:12am Advance Directives Yes November 08 10:31pm Living Will Yes April 02, 2022 11:12am Power of Events Intern Yes April 02 11:12am Advance Directive Response Recorded Date/ Time Name of Medical Power of Events Intern galina Recinos April 02, 2022 11:12am Advance Directives Yes November 08 10:31pm Living Will Yes April 02, 2022 11:12am Power of Events Intern Yes April 02 11:12am Advance Directive Response Recorded Date/ Time Advance Directives Yes November 08 9:31pm Living Will Yes April 02, 2022 10:12am Power of Events Intern Yes April 02 10:12am Advance Directive Response Recorded Date/ Time Advance Directives Yes November 08 10:31pm Living Will Yes April 02, 2022 11:12am Power of Events Intern Yes April 02 11:12am Advance Directive Response Recorded Date/ Time Advance Directives Yes November 08 10:31pm Living Will No March 08, 2023 9:37am Power of Events Intern No March 08 9:37am Advance Directive Response Recorded Date/ Time Advance Directives Yes November 08 10:31pm Living Will No May 22, 2023 11:19pm Power of Events Intern No April 11:19pm Advance Directive Response Recorded Date/ Time Advance Directives Yes November 08 9:31pm Living Will No May 22, 2023 10:19pm Power of Events Intern No April 10:19pm Advance Directive Response Recorded Date/ Time Name of Medical Power of Events Intern arvin recinos December 25, 2023 12:45am Advance Directives Yes November 08 10:31pm Living Will Yes December 25, 2023 12:45am Power of Events Intern Yes December 24 12:45am Advance Directive Response Recorded Date/ Time Living Will Yes December 25, 2023 12:45am Power of Events Intern Yes December 24 12:45am Advance Directives Yes November 08 10:31pm Advance Directive Response Recorded Date/ Time Living Will Yes December 25, 2023 12:45am Power of Events Intern Yes December 24 12:45am Living Will Yes November 10, 2024 5:31am Power of Events Intern Yes November 10 5:31am Name of Medical Power of Events Intern Galina November 10, 2024 5:31am Advance Directives Yes November 08 10:31pm Advance Directive Response Recorded Date/ Time Living Will Yes December 25, 2023 12:45am Do you have a Healthcare Power of Events Intern? Yes December 25, 2023 12:45am Living Will Yes November 10, 2024 5:31am Do you have a Healthcare Power of Events Intern? Yes November 10, 2024 5:31am Name of Medical Power of Events Intern Galina November 10, 2024 5:31am Advance Directives Yes November 08 016 10:31pm Advance Directive Response Recorded Date/ Time Living Will Yes November 10, 2024 5:31am Do you have a Healthcare Power of Events Intern? 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 (OK WITH MMM) SOBS Reason for Visit Chronic systolic (co ngestive) heart failure History of implantable cardiac defibrillator (ICD) Left bundle branch block Paroxysmal atrial fibrillation Ischemic cardiomyopathy Abdominal pain SILKE (acute kidney injury) CHF exacerbation Diverticulitis Hypoxia Atherosclerotic heart disease of [place] coronary artery without angina pectoris Essential (primary) hypertension History of implantable cardiac defibrillator (ICD) HLD (hyperlipidemia) Paroxysmal atrial fibrillation Ischemic cardiomyopathy Chief Complaint 3 mos remote ICD f/u MILD CHF EXAC, SUSPECTED DIVERTICULITIS MILD CHF EXAC, SUSPECTED DIVERTICULITIS MILD CHF EXAC, SUSPECTED DIVERTICULITIS MILD CHF EXAC, SUSPECTED DIVERTICULITIS MILD CHF EXAC, SUSPECTED DIVERTICULITIS EORDER S/P [facility] (OK WITH MMM) SOBS PER [place] - [place] HEART RACING SOB, [facility] ER E ORDER NEED LAB ORDER Reason for Visit Chronic systolic (co ngestive) heart failure History of implantable cardiac defibrillator (ICD) Left bundle branch block Paroxysmal atrial fibrillation Ischemic cardiomyopathy Abdominal pain SILKE (acute kidney injury) CHF exacerbation Diverticulitis Hypoxia Atherosclerotic heart disease of [place] coronary artery without angina pectoris Essential (primary) hypertension History of implantable cardiac defibrillator (ICD) HLD (hyperlipidemia) Paroxysmal atrial fibrillation Ischemic cardiomyopathy Chronic systolic (congestive) heart failure History of implantable cardiac defibrillator (ICD) Left bundle branch block Paroxysmal atrial fibrillation 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 (OK WITH MMM) SOBS PER [facility] HEART RACING [facility] ER E ORDER NEED LAB ORDER LESION REMOVAL L LOWER LID Reason for Visit Chronic systolic (co ngestive) heart failure History of implantable cardiac defibrillator (ICD) Left bundle branch block Paroxysmal atrial fibrillation Ischemic cardiomyopathy Abdominal pain SILKE (acute kidney injury) CHF exacerbation Diverticulitis Hypoxia Atherosclerotic heart disease of [place] coronary artery without angina pectoris Essential (primary) hypertension History of implantable cardiac defibrillator (ICD) HLD (hyperlipidemia) Paroxysmal atrial fibrillation Ischemic cardiomyopathy Chronic systolic (congestive) heart failure History of implantable cardiac defibrillator (ICD) Left bundle branch block Paroxysmal atrial fibrillation 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 (OK WITH MMM) SOBS PER [facility] - [facility] STATES HEART RACING [facility] ER E ORDER NEED LAB ORDER LESION REMOVAL L LOWER LID 6 M FU (WANTS A SUNDAY)FILIPE@1:00 Reason for Visit Chronic systolic (co ngestive) heart failure History of implantable cardiac defibrillator (ICD) Left bundle branch block Paroxysmal atrial fibrillation Ischemic cardiomyopathy Abdominal pain SILKE (acute kidney injury) CHF exacerbation Diverticulitis Hypoxia Bilateral carotid bruits Atherosclerotic heart disease of [place] coronary artery without angina pectoris Essential (primary) hypertension History of implantable cardiac defibrillator (ICD) HLD (hyperlipidemia) Paroxysmal atrial fibrillation Ischemic cardiomyopathy Chronic systolic (congestive) heart failure History of implantable cardiac defibrillator (ICD) Left bundle branch block Paroxysmal atrial fibrillation Ischemic cardiomyopathy Atherosclerotic heart disease of [place] coronary artery without angina pectoris Chronic systolic (congestive) heart failure Essential (primary) hypertension History of implantable cardiac defibrillator (ICD) HLD (hyperlipidemia) Paroxysmal atrial fibrillation Ischemic cardiomyopathy Chronic systolic (congestive) heart failure History of implantable cardiac defibrillator (ICD) Left bundle branch block Paroxysmal atrial fibrillation Ischemic cardiomyopathy Bilateral carotid bruits Atherosclerotic heart disease of [place] coronary artery without angina pectoris Chronic systolic (congestive) heart failure Essential (primary) hypertension History of implantable cardiac defibrillator (ICD) HLD (hyperlipidemia) Paroxysmal atrial fibrillation Ischemic cardiomyopathy Chief Complaint MILD CHF EXAC, SUSPE CTED DIVERTICULITIS MILD CHF EXAC, SUSPECTED DIVERTICULITIS MILD CHF EXAC, SUSPECTED DIVERTICULITIS MILD CHF EXAC, SUSPECTED DIVERTICULITIS MILD CHF EXAC, SUSPECTED DIVERTICULITIS EORDER S/P [facility] (OK WITH MMM) SOBS PER [facility] - [facility] STATES HEART RACING SOB, [facility] ER E ORDER NEED LAB ORDER LESION REMOVAL L LOWER LID 6 M FU (WANT A SUNDAY)FILIPE@1:00 new device implant new device insert/ see filipe 03-23 @ 11am ACUTE VERTIGO Reason for Visit Abdominal pain SILKE (acute kidney injury) CHF exacerbation Diverticulitis Hypoxia Bilateral carotid bruits Atherosclerotic heart disease of [place] coronary artery without angina pectoris Essential (primary) hypertension History of implantable cardiac defibrillator (ICD) HLD (hyperlipidemia) Paroxysmal atrial fibrillation Ischemic cardiomyopathy Chronic systolic (congestive) heart failure History of implantable cardiac defibrillator (ICD) Left bundle branch block Paroxysmal atrial fibrillation Ischemic cardiomyopathy Atherosclerotic heart disease of [place] coronary artery without angina pectoris Chronic systolic (congestive) heart failure Essential (primary) hypertension History of implantable cardiac defibrillator (ICD) HLD (hyperlipidemia) Paroxysmal atrial fibrillation Ischemic cardiomyopathy Chronic systolic (congestive) heart failure History of implantable cardiac defibrillator (ICD) Left bundle branch block Paroxysmal atrial fibrillation Ischemic cardiomyopathy Bilateral carotid bruits Atherosclerotic heart disease of [place] coronary artery without angina pectoris Chronic systolic (congestive) heart failure Essential (primary) hypertension History of implantable cardiac defibrillator (ICD) HLD (hyperlipidemia) Paroxysmal atrial fibrillation Ischemic cardiomyopathy Bilateral carotid bruits Atherosclerotic heart disease of [place] coronary artery without angina pectoris Chronic systolic (congestive) heart failure Essential (primary) hypertension History of implantable cardiac defibrillator (ICD) HLD (hyperlipidemia) Paroxysmal atrial fibrillation Ischemic cardiomyopathy Diabetes Vertigo Hypertension Chief Complaint MILD CHF EXAC, SUSPE CTED DIVERTICULITIS MILD CHF EXAC, SUSPECTED DIVERTICULITIS MILD CHF EXAC, SUSPECTED DIVERTICULITIS MILD CHF EXAC, SUSPECTED DIVERTICULITIS MILD CHF EXAC, SUSPECTED DIVERTICULITIS EORDER S/P [facility] (OK WITH MMM) SOBS PER [place] - [place] HEART RACING SOB, [facility] ER E ORDER NEED LAB ORDER LESION REMOVAL L LOWER LID 6 M FU (Sunday)FILIPE@1:00 new device implant new device insert/ see filipe 03-23 @ 11am ACUTE VERTIGO ACUTE VERTIGO ACUTE VERTIGO ACUTE VERTIGO ACUTE VERTIGO PROGRAMMING for MRI PROGRAMMING for MRI Reason for Visit Abdominal pain SILKE (acute kidney injury) CHF exacerbation Diverticulitis Hypoxia Bilateral carotid bruits Atherosclerotic heart disease of [place] coronary artery without angina pectoris Essential (primary) hypertension History of implantable cardiac defibrillator (ICD) HLD (hyperlipidemia) Paroxysmal atrial fibrillation Ischemic cardiomyopathy Chronic systolic (congestive) heart failure History of implantable cardiac defibrillator (ICD) Left bundle branch block Paroxysmal atrial fibrillation Ischemic cardiomyopathy Atherosclerotic heart disease of [place] coronary artery without angina pectoris Chronic systolic (congestive) heart failure Essential (primary) hypertension History of implantable cardiac defibrillator (ICD) HLD (hyperlipidemia) Paroxysmal atrial fibrillation Ischemic cardiomyopathy Chronic systolic (congestive) heart failure History of implantable cardiac defibrillator (ICD) Left bundle branch block Paroxysmal atrial fibrillation Ischemic cardiomyopathy Bilateral carotid bruits Atherosclerotic heart disease of [place] coronary artery without angina pectoris Chronic systolic (congestive) heart failure Essential (primary) hypertension History of implantable cardiac defibrillator (ICD) HLD (hyperlipidemia) Paroxysmal atrial fibrillation Ischemic cardiomyopathy Bilateral carotid bruits Atherosclerotic heart disease of [place] coronary artery without angina pectoris Chronic systolic [...] Bilateral carotid bruits Atherosclerotic heart disease of [place] coronary artery without angina pectoris Chronic systolic (congestive) heart failure Essential (primary) hypertension History of implantable cardiac defibrillator (ICD) HLD (hyperlipidemia) Paroxysmal atrial fibrillation Ischemic cardiomyopathy Bilateral carotid bruits Atherosclerotic heart disease of [place] coronary artery without angina pectoris Chronic systolic [...] carotid br uits Atherosclerotic heart disease of [place] coronary artery without angina pectoris Chronic systolic [...] carotid br uits Atherosclerotic heart disease of [place] coronary artery without angina pectoris Chronic systolic [...] carotid br uits Atherosclerotic heart disease of [place] coronary artery without angina pectoris Chronic systolic [...] M FU, Filipe @ 1pm 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 PROGRAMMING in MRI Reason for Visit Muscle strain Chronic systolic (congestive) heart failure History of implantable cardiac defibrillator (ICD) Left bundle branch block Paroxysmal atrial fibrillation Ischemic cardiomyopathy Bilateral carotid bruits Atherosclerotic heart disease of [place] coronary artery without angina pectoris Chronic systolic [...] Bilateral carotid bruits Atherosclerotic heart disease of [place] coronary artery without angina pectoris Chronic systolic [...] Visit Admit Date Bilateral carotid bruits September 17 1:47pm Atherosclerotic heart diseas e of [place] coronary artery without angina pectoris September 17, [...] soft tissue disorders Ap ril 2024 3:27pm Chief Complaint Admit Date Pacer [...] section and content) DATE CREATED AUTHOR 09/02/2018 [place] DATE CREATED AUTHOR AUTHOR'S ORGANIZ ATION 11/27/2021 [facility] DATE CREATED AUTHOR AUTHOR'S ORGANIZ ATION 04/09/2025 [facility] DATE CREATED AUTHOR AUTHOR'S ORGANIZ ATION 05/21/2025 [place] Reason for Visit (unrecogniz ed section and content) Reason For Visit Description Follow-up by complaint Preliminary reason f or visit data, not yet signed by the author 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 Reason Comments Follow Up Reason Comments [...] or prosecute any alcohol or drug abuse patient.[facility] the event this information is protected by the Federal Confidentiality of Alcohol and Drug Abuse Patient Records regulations: The Federal rules restrict any use of the information to criminally investigate or prosecute any alcohol or drug abuse patient.[facility] the event this information is protected by the Federal Confidentiality of Alcohol and Drug Abuse Patient Records regulations: The Federal rules restrict any use of the information to criminally investigate or prosecute any alcohol or drug abuse patient.[facility] the event this information is protected by the Federal Confidentiality of Alcohol and Drug Abuse Patient Records regulations: The Federal rules restrict any use of the information to criminally investigate or prosecute any alcohol or drug abuse patient.[facility] the event this information is protected by the Federal Confidentiality of Alcohol and Drug Abuse Patient Records regulations: The Federal rules restrict any use of the information to criminally investigate or prosecute any alcohol or drug abuse patient.[facility] the event this information is protected by the Federal Confidentiality of Alcohol and Drug Abuse Patient Records regulations: The Federal rules restrict any use of the information to criminally investigate or prosecute any alcohol or drug abuse patient.[facility] the event this information is protected by the Federal Confidentiality of Alcohol and Drug Abuse Patient Records regulations: The Federal rules restrict any use of the information to criminally investigate or prosecute any alcohol or drug abuse patient.[facility] the event this information is protected by the Federal Confidentiality of Alcohol and Drug Abuse Patient Records regulations: The Federal rules restrict any use of the information to criminally investigate or prosecute any alcohol or drug abuse patient.[facility] the event this information is protected by the Federal Confidentiality of Alcohol and Drug Abuse Patient Records regulations: The Federal rules restrict any use of the information to criminally investigate or prosecute any alcohol or drug abuse patient.[facility] Care Teams (unrecognized sec tion and content) Speech And Language Clinician Relationship Specialty Start Date End Date Corin Hernandez PCP - General Family Practice 04/11/17 Bunny Verdin Specialty Basic Acoustic Analyst Cardiology 04/11/17 Shu Gotti Specialty Basic Acoustic Analyst Endocrinology 04/11/17 Estrellita Tony V [address] [facility] [address] Specialty Basic Acoustic Analyst Internal Medicine 04/11/17 Marj Marcial, WIRELESS STORE MANAGER [address] [place] [address] Specialty Basic Acoustic Analyst Family Practice 04/11/17 Jayy Cancino MD [address] [place] [address] Specialty Basic Acoustic Analyst Urology 04/11/17 Estrellita Soto MD [address] [place] [address] (Fax) Specialty Basic Acoustic Analyst Cardiology 01/23/18 Speech And Language Clinician Relationship Specialty Start Date End Date Corin Hernandez PCP - General Family Practice 04/11/17 Lambert, [place] S Specialty Basic Acoustic Analyst Cardiology 04/11/17 Shu Gotti Specialty Basic Acoustic Analyst Endocrinology 04/11/17 Estrellita Tony V [address] [place] [address] Specialty Basic Acoustic Analyst Internal Medicine 04/11/17 Marj Marcial, WIRELESS STORE MANAGER [address] [place] [address] Specialty Basic Acoustic Analyst Family Practice 04/11/17 Jayy Cancino MD [address] [place] [address] Specialty Basic Acoustic Analyst Urology 04/11/17 Estrellita Soto MD [address] [place] [address] Specialty Basic Acoustic Analyst Cardiology 01/23/18 Speech And Language Clinician Relationship Specialty Start Date End Date Corin Hernandez PCP - General Family Practice 04/11/17 Lambert, Bunny S Specialty Basic Acoustic Analyst Cardiology 04/11/17 Shu Gotti Specialty Basic Acoustic Analyst Endocrinology 04/11/17 Estrellita Tony V [address] [facility] [address] Specialty Basic Acoustic Analyst Internal Medicine 04/11/17 Marj Marcial, WIRELESS STORE MANAGER [address] [place] [address] Specialty Basic Acoustic Analyst Family Practice 04/11/17 Jayy Cancino MD [address] [place] [address] Specialty Basic Acoustic Analyst Urology 04/11/17 Estrellita Soto MD [address] [facility] [address] [place] [phone] Specialty Basic Acoustic Analyst Cardiology 01/23/18 Speech And Language Clinician Relationship Specialty Start Date End Date David Corin Brian PCP - General Family Practice 04/11/17 Lambert, Bunny S Specialty Basic Acoustic Analyst Cardiology 04/11/17 Shu Gotti Specialty Basic Acoustic Analyst Endocrinology 04/11/17 Estrellita Tony V [address] [place] [phone] Specialty Basic Acoustic Analyst Internal Medicine 04/11/17 Marj Marcial, WIRELESS STORE MANAGER [address] [place] [address] Specialty Basic Acoustic Analyst Family Practice 04/11/17 Jayy Cancino MD [address] [place] [address] Specialty Basic Acoustic Analyst Urology 04/11/17 Estrellita Soto MD [address] [place] [phone] Specialty Basic Acoustic Analyst Cardiology 01/23/18 Speech And Language Clinician Relationship Specialty Start Date End Date Corin Hernandez PCP - General Family Practice 04/11/17 Lambert, Bunny S Specialty Basic Acoustic Analyst Cardiology 04/11/17 Shu Gotti MD Specialty Basic Acoustic Analyst Endocrinology 04/11/17 Estrellita Tony V [address] [place] [address] Specialty Basic Acoustic Analyst Internal Medicine 04/11/17 Marj Marcial, WIRELESS STORE MANAGER [address] [place] [address] Specialty Basic Acoustic Analyst Family Practice 04/11/17 Jayy Cancino MD [address] [place] [address] Specialty Basic Acoustic Analyst Urology 04/11/17 Estrellita Soto MD [address] [place] [phone] (Fax) Specialty Basic Acoustic Analyst Cardiology 01/23/18 Speech And Language Clinician Relationship Specialty Start Date End Date Corin Hernandez PCP - General Family Practice 04/11/17 Lambert, Bunny S Specialty Basic Acoustic Analyst Cardiology 04/11/17 Shu Gotti MD Specialty Basic Acoustic Analyst Endocrinology 04/11/17 Estrellita Tony V [address] [place] [phone] Specialty Basic Acoustic Analyst Internal Medicine 04/11/17 Aggie Marj Mya, WIRELESS STORE MANAGER [address] [place] [address] Specialty Basic Acoustic Analyst Family Practice 04/11/17 Jayy Cancino MD [address] [place] [address] Specialty Basic Acoustic Analyst Urology 04/11/17 Estrellita Soto MD [address] [facility] [address] [place] [address] Specialty Basic Acoustic Analyst Cardiology 01/23/18 Team Status: Active Member Role Status Dates Corin Hernandez MD Family Provider Active Dr. Corin Hernandez MD Primary Care Provider Active Team Status: Inactive Member Role Status Dates Dr. Corin Hernandez MD Primary Care Provider Active Dr. Bunny Verdin MD Attending Provider, Referring Pro vider Active Team Status: Inactive Member Role Status Dates Bhavna Chiang PA, PA Attending Provider Active Dr. Corin Hernandez [...] Care Provider, Referrin g Provider Active Bhavna Chiang PA, PA Attending Provider Active Team Status: Inactive Member Role Status Dates Dr. Corin Hernandez MD Primary Care Provider Active Glo Kowalski Active Dr. Bunny Verdin MD Attending Provider, Referring Pro vider Active Team Status: Active Member Role Status Dates Dr. Corin Hernandez MD Primary Care Provider Active Self Referred Attending Provider Active Team Status: Inactive Member Role Status Dates Dr. Corin Hernandez MD Primary Care Provider Active Katherin Edge MD Attending Provider, Referring Provide r Active [...] Hernandez MD Primary Care Provider Active Katherin Edge MD Attending Provider, Referring Provide r Active Team Status: Inactive Member Role Status Dates Dr. Corin Hernandez MD Primary Care Prov ider, Attending Provider, Referring Provider Active Team Status: Inactive Member Role Status Dates Dr. Corin Hernandez MD Primary Care Provider, Referrin g Provider Active Edward Rosado NEW PRODUCT TRAINER, NEW PRODUCT TRAINER-C Attending Provider Active Team Status: Active Member Role Status Dates Dr. Corin Hernandez MD Primary Care Provider Active Edward Rosado NEW PRODUCT TRAINER, NEW PRODUCT TRAINER-C Attending Provider Active Team Status: Active Member Role Status Dates Dr. Corin Hernandez MD Primary Care Prov ider, Attending Provider, Referring Provider Active Team Status: Inactive Member Role Status Dates Dr. Corin Hernandez MD Primary Care Provider Active Edward Rosado NEW PRODUCT TRAINER, NEW PRODUCT TRAINER-C Attending Provider Active Team Status: Inactive Member [...] Provider Active Dr. Bunny Verdin MD Attending Provider Active Team Status: Active [...] Corin ADRIAN MD Family Provider Active Katherin Edge MD Primary Care Provider Active Team Status: Active Member Role Status Dates Katherin Edge MD Primary Care Provider Active Dr. Shu Gotti MD Attending Provider, Re ferring Provider [facility] Other Provider Active Team Status: Inactive Member Role Status Dates Dr. Corin Hernandez MD Primary Care Provider Active Dr. Michelle Mcfarlane MD Attending Provider Active Katherin Edge MD Referring Provider Active Marj Marcial NP Other Provider Active Team Status: Inactive Member Role Status Dates Katherin Edge MD Primary Care Provider Active Dr. Shu Gotti MD Attending Provider, Re ferring Provider [facility] Other Provider Active Team Status: Inactive Member Role Status Dates Katherin Edge MD Primary Care Provider Active Dr. Vineet Wright MD Emergency Provider Active Speech And Language Clinician Relationship Specialty Start Date End Date Katherin Edge MD [address] [place] [address] PCP - General Internal Medicine 03/27/24 Estrellita Tony V [address] [place] [phone] Specialty Basic Acoustic Analyst Internal Medicine 04/11/17 Marj Marcial, WIRELESS STORE MANAGER [address] [place] [address] Specialty Basic Acoustic Analyst Family Medicine 04/11/17 Jayy Cancino MD [address] [place] [address] Specialty Basic Acoustic Analyst Urology 04/11/17 Estrellita Soto MD [address] [place] [address] Specialty Basic Acoustic Analyst Cardiology 01/23/18 Bunny Verdin MD [address] [id number] Specialty Basic Acoustic Analyst Cardiology 03/23/23 Maribeth Mcfarlane MD [address] [place], [place] [id number] Specialty Basic Acoustic Analyst Nephrology 03/27/24 Team Status: Inactive Member Role Status Adeel Edge MD Primary Care Provider Active St art: August 01, 2024 End: August 01, 2024 Dr. Bunny Verdin MD Attending Provider Active S tart: August 01, 2024 End: August 01, 2024 Dr. Bunny Verdin MD Referring Provider Active S tart: August 01, 2024 End: August 01, 2024 Team Status: Inactive Member Role Status Adeel Edge MD Primary Care Provider Active St art: September 02, 2024 End: September 02, 2024 Katherin Edge MD Attending Provider Active Start : September 02, 2024 End: September 02, 2024 Katherin Edge MD Referring Provider Active Start : September 02, 2024 End: September 02, 2024 Team Status: Inactive Member Role Status Adeel Edge MD Primary Care Provider Active St art: September 17, 2024 End: September 17, 2024 Katherin Edge MD Referring Provider Active Start : September 17, 2024 End: September 17, 2024 Bhavna Chiang PA, PA Attending Provider Active Start: September 17, 2024 End: September 17, 2024 Team Status: Inactive Member Role Status Adeel Edge MD Primary Care Provider Active St art: October 27, 2024 End: October 27, 2024 Dr. Michelle Mcfarlane MD Attending Provider Active Start: October 27, 2024 End: October 27, 2024 Dr. Michelle Mcfarlane MD Referring Provider Active Start: October 27, 2024 End: October 27, 2024 Team Status: Active Member Role Status Adeel Edge MD Primary Care Provider Active St art: October 28, 2024 Dr. Shu Gotti MD Attending Provider Act danika Start: October 28, 2024 Dr. Shu Gotti MD Referring Provider Act danika Start: October 28, 2024 Team Status: Active Member Role Status Adeel Edge MD Primary Care Provider Active Team Status: Inactive Member Role Status Adeel Edge MD Primary Care Provider Active St art: November 10, 2024 End: November 10, 2024 Dr. Romeo Medeiros DO Emergency Provider Active Start: November 10, 2024 End: November 10, 2024 Team Status: Inactive Member Role Status Adeel Edge MD Primary Care Provider Active St art: October 28, 2024 End: October 28, 2024 Dr. Shu Gotti MD Attending Provider Act danika Start: October 28, 2024 End: October 28, 2024 Dr. Shu Gotti MD Referring Provider Act danika Start: October 28, 2024 End: October 28, 2024 Team Status: Inactive Member Role Status Adeel Edge MD Primary Care Provider Active St art: November 05, 2024 End: November 05, 2024 Dr. Bunny Verdin MD Attending Provider Active S tart: November 05, 2024 End: November 05, 2024 Dr. Bunny Verdin MD Referring Provider Active S tart: November 05, 2024 End: November 05, 2024 Team Status: Inactive Member Role Status Adeel Edge MD Primary Care Provider Active St art: November 10, 2024 End: November 10, 2024 Dr. Romeo Medeiros DO Attending Provider Active Start: November 10, 2024 End: November 10, 2024 Dr. Romeo Medeiros DO Emergency Provider Active Start: November 10, 2024 End: November 10, 2024 Team Status: Inactive Member Role Status Adeel Edge MD Primary Care Provider Active St art: November 19, 2024 End: November 19, 2024 Katherin Edge MD Attending Provider Active Start : November 19, 2024 End: November 19, 2024 Katherin Edge MD Referring Provider Active Start : November 19, 2024 End: November 19, 2024 Dr. Estrellita Tony MD Other Provider Active Start: November 19, 2024 End: November 19, 2024 Team Status: Inactive Member Role Status Adeel Edge MD Primary Care Provider Active St art: November 26, 2024 End: November 26, 2024 Edward Rosado NEW PRODUCT TRAINER, NEW PRODUCT TRAINER-C Attending Provider Active S tart: November 26, 2024 End: November 26, 2024 Edward Rosado NEW PRODUCT TRAINER, NEW PRODUCT TRAINER-C Referring Provider Active S tart: November 26, 2024 End: November 26, 2024 Team Status: Inactive Member Role Status Adeel Edge MD Primary Care Provider Active St art: December 01, 2024 End: December 01, 2024 Kimmy Sanchez NEW PRODUCT TRAINER, NEW PRODUCT TRAINER-C Attending Provider Active Start: December 01, 2024 End: December 01, 2024 Kimmy Sanchez NEW PRODUCT TRAINER, NEW PRODUCT TRAINER-C Referring Provider Active Start: December 01, 2024 End: December 01, 2024 Team Status: Inactive Member Role Status Adeel Edge MD Primary Care Provider Active St art: December 15, 2024 End: December 15, 2024 Katherin Edge MD Attending Provider Active Start : December 15, 2024 End: December 15, 2024 Katherin Edge MD Referring Provider Active Start : December 15, 2024 End: December 15, 2024 Team Status: Active Member Role Status Adeel Edge MD Primary Care Provider Active St art: December 15, 2024 Dr. Jose Carlos Alex MD Attending Provider Active S tart: December 15, 2024 Team Status: Active Member Role Status Adeel Edge MD Primary Care Provider Active St art: December 15, 2024 Katherin Edge MD Referring Provider Active Start : December 15, 2024 Dr. Jose Carlos Alex MD Attending Provider Active S tart: December 15, 2024 Team Status: Inactive Member Role Status Adeel Edge MD Primary Care Provider Active St art: January 21, 2025 End: January 21, 2025 Katherin Edge MD Referring Provider Active Start : January 21, 2025 End: January 21, 2025 Dr. Douglas Livingston MD Attending Provider Active Start: January 21, 2025 End: January 21, 2025 Team Status: Inactive Member Role Status Adeel Edge MD Primary Care Provider Active St art: February 04, 2025 End: February 04, 2025 Dr. Bunny Verdin MD Attending Provider Active S tart: February 04, 2025 End: February 04, 2025 Team Status: Active Member Role/Relationship Status Adeel Edge MD Primary Care Provider Active Team Status: Inactive Member Role/Relationship Status Adeel Edge MD Primary Care Provider Active St art: November 05, 2024 End: November 05, 2024 Dr. Bunny Verdin MD Attending Provider Active S tart: November 05, 2024 End: November 05, 2024 Dr. Bunny Verdin MD Referring Provider Active S tart: November 05, 2024 End: November 05, 2024 Team Status: Inactive Member Role/Relationship Status Adeel Edge MD Primary Care Provider Active St art: November 10, 2024 End: November 10, 2024 Dr. Romeo Medeiros DO Attending Provider Active Start: November 10, 2024 End: November 10, 2024 Dr. Romeo Medeiros DO Emergency Provider Active Start: November 10, 2024 End: November 10, 2024 Team Status: Inactive Member Role/Relationship Status Adeel Edge MD Primary Care Provider Active St art: November 19, 2024 End: November 19, 2024 Katherin Edge MD Attending Provider Active Start : November 19, 2024 End: November 19, 2024 Katherin Edge MD Referring Provider Active Start : November 19, 2024 End: November 19, 2024 Dr. Estrellita Tony MD Other Provider Active Start: November 19, 2024 End: November 19, 2024 Team Status: Inactive Member Role/Relationship Status Adeel Edge MD Primary Care Provider Active St art: November 26, 2024 End: November 26, 2024 Edward Rosado NEW PRODUCT TRAINER, NEW PRODUCT TRAINER-C Attending Provider Active S tart: November 26, 2024 End: November 26, 2024 Edward Rosado NEW PRODUCT TRAINER, NEW PRODUCT TRAINER-C Referring Provider Active S tart: November 26, 2024 End: November 26, 2024 Team Status: Inactive Member Role/Relationship Status Adeel Edge MD Primary Care Provider Active St art: December 01, 2024 End: December 01, 2024 Kimmy Sanchez NEW PRODUCT TRAINER, NEW PRODUCT TRAINER-C Attending Provider Active Start: December 01, 2024 End: December 01, 2024 Kimmy Sanchez NEW PRODUCT TRAINER, NEW PRODUCT TRAINER-C Referring Provider Active Start: December 01, 2024 End: December 01, 2024 Team Status: Inactive Member Role/Relationship Status Adeel Edge MD Primary Care Provider Active St art: December 15, 2024 End: December 15, 2024 Katherin Edge MD Attending Provider Active Start : December 15, 2024 End: December 15, 2024 Katherin Edge MD Referring Provider Active Start : December 15, 2024 End: December 15, 2024 Team Status: Active Member Role/Relationship Status Adeel Edge MD Primary Care Provider Active St art: December 15, 2024 Katherin Edge MD Referring Provider Active Start : December 15, 2024 Dr. Jose Carlos Alex MD Attending Provider Active S tart: December 15, 2024 Team Status: Inactive Member Role/Relationship Status Adeel Edge MD Primary Care Provider Active St art: January 21, 2025 End: January 21, 2025 Katherin Edge MD Referring Provider Active Start : January 21, 2025 End: January 21, 2025 Dr. Douglas Livingston MD Attending Provider Active Start: January 21, 2025 End: January 21, 2025 Team Status: Inactive Member Role/Relationship Status Aedel Edge MD Primary Care Provider Active St art: February 04, 2025 End: February 04, 2025 Dr. Bunny Verdin MD Attending Provider Active S tart: February 04, 2025 End: February 04, 2025 Dr. Bunny Verdin MD Referring Provider Active S tart: February 04, 2025 End: February 04, 2025 Team Status: Inactive Member Role/Relationship Status Dates Katherin Edge MD Primary Care Provider Active St art: February 25, 2025 End: February 25, 2025 Dr. Shu Gotti MD Attending Provider Act danika Start: February 25, 2025 End: February 25, 2025 Dr. Shu Gotti MD Referring Provider Act danika Start: February 25, 2025 End: February 25, 2025 Speech And Language Clinician Relationship Specialty Start Date End Date Katherin Edge MD [address] [place], [place] [id number] PCP - General Internal Medicine 03/27/24 Estrellita Tony V [address] [place] [id number] Specialty Basic Acoustic Analyst Internal Medicine 04/11/17 Marj Marcial, SHAUN [address] [place] [address] Specialty Basic Acoustic Analyst Family Medicine 04/11/17 Estrellita Soto MD [address] [place] [id number] Specialty Basic Acoustic Analyst Cardiology 01/23/18 Bunny Verdin MD [address] [place], [place] [id number] Specialty Basic Acoustic Analyst Cardiology 03/23/23 Maribeth Mcfarlane MD [address] [place] [address] Specialty Basic Acoustic Analyst Nephrology 03/27/24 Team Status: Inactive Member Role/Relationship Status Dates Katherin Edge MD Primary Care Provider Active St art: January 21, 2025 End: January 21, 2025 Katherin Edge MD Referring Provider Active Start : January 21, 2025 End: January 21, 2025 Dr. Douglas Livingston MD Attending Provider Active Start: January 21, 2025 End: January 21, 2025 Team Status: Inactive Member Role/Relationship Status Adeel Edge MD Primary Care Provider Active St art: February 04, 2025 End: February 04, 2025 Dr. Bunny Verdin MD Attending Provider Active S tart: February 04, 2025 End: February 04, 2025 Dr. Bunny Verdin MD Referring Provider Active S tart: February 04, 2025 End: February 04, 2025 Team Status: Inactive Member Role/Relationship Status Adeel Edge MD Primary Care Provider Active St art: February 25, 2025 End: February 25, 2025 Dr. Suh Gotti MD Attending Provider Act danika Start: February 25, 2025 End: February 25, 2025 Dr. Shu Gotti MD Referring Provider Act danika Start: February 25, 2025 End: February 25, 2025 Team Status: Inactive Member Role/Relationship Status Adeel Edge MD Primary Care Provider Active St art: April 21, 2025 End: April 21, 2025 Katherin Edge MD Attending Provider Active Start : April 21, 2025 End: April 21, 2025 Katherin Edge MD Referring Provider Active Start : April 21, 2025 End: April 21, 2025 Team Status: Active Member Role/Relationship Status Adeel Edge MD Primary Care Provider Active St art: April 28, 2025 Dr. Michelle Mcfarlane MD Attending Provider Active Start: April 28, 2025 Dr. Michelle Mcfarlane MD Referring Provider Active Start: April 28, 2025 Team Status: Active Member Role/Relationship Status Adeel Edge MD Primary Care Provider Active St art: April 22, 2025 Dr. Bunny Verdin MD Attending Provider Active S tart: April 22, 2025 Team Status: Inactive Member Role/Relationship Status Adeel Edge MD Primary Care Provider Active St art: April 28, 2025 End: April 28, 2025 Dr. Michelle Mcfarlane MD Attending Provider Active Start: April 28, 2025 End: April 28, 2025 Dr. Michelle Mcfarlane MD Referring Provider Active Start: April 28, 2025 End: April 28, 2025 Team Status: Active Member Role/Relationship Status Dates Katherin Edge MD Primary Care Provider Active St art: May 06, 2025 Dr. Bunny Verdin MD Attending Provider Active S tart: May 06, 2025 Team Status: Inactive Member Role/Relationship Status Dates Katherin Edge MD Primary Care Provider Active St art: April 22, 2025 End: April 22, 2025 Dr. Bunny Verdin MD Attending Provider Active S tart: April 22, 2025 End: April 22, 2025 Team Status: Inactive Member Role/Relationship Status Dates Katherin Edge MD Primary Care Provider Active St art: [...] BE BASED ON THE PRIMARY CLINICAL RECORDS. [facility] [employer] [facility]. provides no warranty or guarantee of the accuracy or completeness of information in this document.
[2025-05-29 08:18] LABS: Creatinine, Urine (random) 88.90 mg/dL (39.00-259.00); Microalbumin,Random Urine 186.0 mg/L (<20 mg/L)
[2025-05-29 08:50] LABS: AST(SGOT) 26 U/L (<=37); Alanine Aminotransfer ALT/SGPT 43 U/L (<=46); Albumin, Serum 4.0 g/dL (3.4-4.8); Alkaline Phosphatase 121 U/L (40-129); Anion Gap 16 (5-15); BUN 28 mg/dL (4-19); BUN/Creat Ratio 14.9 RATIO (10-20); Calcium,Total 8.6 mg/dL (7.6-11.0); Carbon Dioxide 19.3 mmol/L (21.0-32.0); Chloride 109 mmol/L (98-108); Cholesterol 128 mg/dL (<=200); Free T3 2.2 pg/mL (2.18-3.98); Globulin 1.8 g/dL (2.2-4.2); Glucose 139 mg/dL (70-99); Low Density Lipoprotein Calc. 60 mg/dL; Potassium 4.0 mmol/L (3.3-5.1); Triglycerides 115 mg/dL; Very Low Density Lipoprotein 23 mg/dL (5-40); Vitamin D,25 Hydroxy 69.8 ng/mL (30-100); cholesterol:hdl ratio screen 2.84
== END | disposition home or self-care (01) ==
PROVIDERS: PCP Family Medicine; Referring Provider Internal Medicine Endocrinology, Diabetes & Metabolism; Visit Provider Internal Medicine Endocrinology, Diabetes & Metabolism
DX: E11.22 Type 2 diabetes mellitus with diabetic chronic kidney disease (principal); Z79.4 Long term (current) use of insulin; N18.30 Chronic kidney disease, stage 3 unspecified; E03.9 Hypothyroidism, unspecified; E55.9 Vitamin D deficiency, unspecified
CPT/HCPCS: 36415; 80053; 80061; 82043; 82306; 82570; 83036; 84439; 84443; 84481